=== PATIENT | male | born 1960 | race African-American/Black ===

== ENCOUNTER 2018-01-28 09:05 | Inpatient (IN) | payer SELFPAY ==
[2018-01-28] MEDS ORDERED: MORPHINE 4 MG/ML SYR ONE ×2 (10:02→11:43)
[2018-01-28] MEDS ORDERED: ONDANSETRON 4 MG/2 ML VIAL ONE (10:02)
[2018-01-28] MEDS ORDERED: NA CHLORIDE 0.9% 1,000 ML ONE ×2 (10:02→11:43)
[2018-01-28 10:16] LABS: Absolute Lymphocytes (CBC) 1.2 K/uL (0.7-4.9); Absolute Monocytes 0.6 K/uL (0.1-1.3); Absolute Neutrophil 4.6 K/uL (1.8-8.0); Basophils % 0.3 % (0-1.3); Hematocrit 48.7 % (39.6-49.0); Lymphocytes % 17.9 % (15.3-44.8); MCH 28.1 pg (27.0-35.0); MCV 84.5 fL (80-100); MPV 8.9 fL (7.6-11.3); Monocytes % 9.4 % (3.3-12.3); RBC Red Blood Cell Count 5.76 M/uL (4.33-5.43)
[2018-01-28 10:17] LABS: Urine Blood 2+ (NEG); Urine Glucose NEGATIVE (NEG); Urine Protein 3+ (NEG); Urine Specific Gravity 1.015 (1.005-1.030)
[2018-01-28 10:39] LABS: Potassium 3.9 mEq/L (3.6-5.0)
[2018-01-28 10:52] LABS: Albumin 3.5 g/dL (3.2-5.5); Bilirubin Direct 0.6 mg/dL (0-0.2); Bilirubin Total 2.2 mg/dL (0.3-1.2); Protein, Total 8.8 g/dL (6.0-8.3)
--- NOTE | 2018-01-28 11:16 | RAD REPORT ---
EXAM DESCRIPTION: CT - Abdomen Pelvis Wo Contrast - 01/28/2018 11:07 am CLINICAL HISTORY: Abdominal pain. COMPARISON: 09/11/2017 TECHNIQUE: CT imaging of the abdomen and pelvis was performed without contrast. Solid organ, bowel a nd vascular assessment is limited due to lack of IV and oral contrast. All CT scans are performed using dose optimization technique as appropriate and may include automated exposure control or mA/KV adjustment according to patient size. FINDINGS: The lower lung elise are clear. The liver, spleen, adrenal glands and kidneys are within normal limits.Mild peripancreatic fat strand ing is seen. This is most compatible with acute pancreatitis. No bowel obstruction, free air, free fluid or abscess. Small fat containing right inguinal hernia. Th e appendix is normal. Moderate lumbosacral degenerative changes. IMPRESSION: Mild acute pancreatitis is suspected. A limited non-contrast examination was performed as detailed.
--- NOTE | 2018-01-28 11:33 | EDPHYS ---
Physician Documentation [facility] Name: Natan Paulino Sr Age: 57 yrs Sex: Male : 1960 Arrival Date: 01/28/2018 Time: 09:07 Bed 15 Private MD: None, None ED Physician Brandon Masterson HPI: 01/28 10:00 This 57 yrs old Black Male presents to ER via Ambulatory with complaints of Abd Pain > pm1 48 y/o. 10:00 The patient presents with abdominal pain that is diffuse. Onset: The symptoms/episode pm1 began/occurred 3 day(s) ago. The symptoms do not radiate. Associated signs and symptoms: Pertinent positives: constipation, nausea, Pertinent negatives: chest pain, diarrhea, dysuria, fever, shortness of breath, vomiting. The symptoms are described as achy, constant. Modifying factors: The symptoms are alleviated by nothing, the symptoms are aggravated by alcohol. Severity of pain: in the emergency department the pain is actually worse. The patient has experienced similar episodes in the past, several times. The patient has not recently seen a physician, and does not have an established primary care provider. Patient drank one beer on Saturday prior to onset of abdominal pain that is similar to his prior pancreatitis. Patient reports three days of constipation. Historical: - Allergies: 09:20 PENICILLINS; sv - Home Meds: 09:20 Lasix 20 mg Oral tab 1 tab once daily [Active]; lisinopril 10 mg Oral tab 1 tab once sv daily [Active]; metoprolol tartrate 25 mg Oral tab 1 tab 2 times per day [Active]; - PMHx: 09:20 CHF; Hypertension; Pancreatitis; TIA; sv - PSHx: 09:20 None; sv - Immunization history:: Adult Immunizations up to date. - Social history:: Smoking status: Patient/guardian denies using tobacco, Patient uses alcohol, occasionally. - Ebola Screening: : No symptoms or risks identified at this time. ROS: 10:00 Constitutional: Negative for fever, chills, and weight loss, Eyes: Negative for injury, pm1 pain, redness, and discharge, ENT: Negative for injury, pain, and discharge, Neck: Negative for injury, pain, and swelling, Cardiovascular: Negative for chest pain, palpitations, and edema, Respiratory: Negative for shortness of breath, cough, wheezing, and pleuritic chest pain. 10:00 Back: Negative for injury and pain, : Negative for injury, bleeding, discharge, and swelling, MS/Extremity: Negative for injury and deformity, Skin: Negative for injury, rash, and discoloration, Neuro: Negative for headache, weakness, numbness, tingling, and seizure. 10:00 Abdomen/GI: Positive for abdominal pain, nausea, Negative for vomiting, diarrhea. Exam: 10:00 Constitutional: This is a well developed, well nourished patient who is awake, alert, pm1 and in no acute distress. Head/Face: Normocephalic, atraumatic. Eyes: Pupils equal round and reactive to light, extra-ocular motions intact. Lids and lashes normal. Conjunctiva and sclera are non-icteric and not injected. Cornea within normal limits. Periorbital areas with no swelling, redness, or edema. ENT: Nares patent. No nasal discharge, no septal abnormalities noted. Tympanic membranes are normal and external auditory canals are clear. Oropharynx with no redness, swelling, or masses, exudates, or evidence of obstruction, uvula midline. Mucous membranes moist. Neck: Trachea midline, no thyromegaly or masses palpated, and no cervical lymphadenopathy. Supple, full range of motion without nuchal rigidity, or vertebral point tenderness. No Meningismus. Chest/axilla: Normal chest wall appearance and motion. Nontender with no deformity. No lesions are appreciated. Cardiovascular: Regular rate and rhythm with a normal S1 and S2. No gallops, murmurs, or rubs. Normal PMI, no JVD. No pulse deficits. Respiratory: Lungs have equal breath sounds bilaterally, clear to auscultation and percussion. No rales, rhonchi or wheezes noted. No increased work of breathing, no retractions or nasal flaring. 10:00 Back: No spinal tenderness. No costovertebral tenderness. Full range of motion. Skin: Warm, dry with normal turgor. Normal color with no rashes, no lesions, and no evidence of cellulitis. MS/ Extremity: Pulses equal, no cyanosis. Neurovascular intact. Full, normal range of motion. 10:00 Abdomen/GI: Inspection: abdomen appears normal, Bowel sounds: normal, Palpation: soft, moderate abdominal tenderness, in the Diffuse abdominal pain, mass, is not appreciated, rebound tenderness, is not appreciated. 10:00 Neuro: Orientation: is normal, Motor: moves all fours. Vital Signs: 09:20 BP 158 / 121; Pulse 99; Resp 22; Temp 97.9(O); Pulse Ox 97% ; Weight 95.25 kg; Height 6 sv ft. 3 in. (190.50 cm); Pain 6/10; 10:27 BP 178 / 111; Pulse 75; Resp 15; Pulse Ox 98% on R/A; mh5 11:30 BP 191 / 123; Pulse 81; Resp 19; Pulse Ox 100% on R/A; rb1 12:30 BP 170 / 107; Pulse 75; Resp 18; Pulse Ox 98% on R/A; rb1 13:40 BP 187 / 124; Pulse 77; Resp 20; Pulse Ox 99% on R/A; mh5 14:00 BP 183 / 118; Pulse 68; Resp 20; Pulse Ox 95% ; rb1 15:00 BP 145 / 93; Pulse 60; Resp 19; Pulse Ox 96% on R/A; rb1 09:20 Body Mass Index 26.25 (95.25 kg, 190.50 cm) sv MDM: 09:32 Patient medically screened. pm1 11:29 Data reviewed: vital signs. Data interpreted: Pulse oximetry: on room air is 98 %. pm1 Interpretation: normal. Counseling: I had a detailed discussion with the patient and/or guardian regarding: the historical points, exam findings, and any diagnostic results supporting the discharge/admit diagnosis, lab results, radiology results, the need for further work-up and treatment in the hospital. 12:09 Physician consultation: Cori Alba MD was called at 12:09, was contacted at 12:09, pm1 regarding admission, and will see patient in ED. 01/28 09:45 Order name: Amylase, Serum; Complete Time: 11:25 pm1 01/28 09:45 Order name: Basic Metabolic Panel; Complete Time: 11:25 pm01/28 09:45 Order name: CBC with Diff; Complete Time: 10:56 pm1 01/28 09:45 Order name: Creatinine for Radiology; Complete Time: 10:56 pm1 01/28 09:45 Order name: Hepatic Function; Complete Time: 11:25 pm01/28 09:45 Order name: Lipase; Complete Time: 11:25 pm1 01/28 10:01 Order name: Urine Dipstick--Ancillary (enter results); Complete Time: 10:56 ag 01/28 11:03 Order name: Abdomen ; Complete Time: 11:25 EDMS 01/28 09:45 Order name: IV Saline Lock; Complete Time: 09:54 pm1 01/28 09:45 Order name: Labs collected and sent; Complete Time: 10:08 pm1 01/28 09:45 Order name: Urine Dipstick-Ancillary (obtain specimen); Complete Time: 10:08 pm1 Administered Medications: 10:00 Drug: NS 0.9% 1000 ml Route: IV; Rate: 1000 ml; Site: right antecubital; rb1 10:00 Drug: morphine 4 mg Route: IVP; Site: right antecubital; rb1 10:15 Follow up: Response: No adverse reaction; Pain is decreased rb1 10:00 Drug: Zofran 4 mg Route: IVP; Site: right antecubital; rb1 10:15 Follow up: Response: No adverse reaction rb1 11:45 Drug: NS 0.9% 1000 ml Route: IV; Rate: 1000 ml; Site: right antecubital; rb1 11:45 Drug: morphine 4 mg Route: IVP; Site: right antecubital; rb1 12:03 Follow up: Response: No adverse reaction; Pain is decreased rb1 12:25 Drug: LaSIX 20 mg Route: PO; rb1 13:00 Follow up: Response: No adverse reaction; Blood pressure is unchanged; provider rb1 notified. No new order received at this time. 12:25 Drug: Lisinopril 10 mg Route: PO; rb1 13:00 Follow up: Response: No adverse reaction; Blood pressure is unchanged; provider rb1 notified. 12:25 Drug: Metoprolol 25 mg Route: PO; rb1 16:47 Follow up: Response: No adverse reaction; Blood pressure is unchanged; provider rb1 notified. 14:10 Drug: cloNIDine 0.2 mg Route: PO; rb1 15:00 Follow up: Response: No adverse reaction; Blood pressure is lowered rb1 Disposition: 01/29 15:29 Co-signature as Attending Physician, Brandon Masterson MD I agree with the assessment and deejay plan of care. Disposition: 01/28/18 11:33 Hospitalization ordered by Cori Alba for Observation. Preliminary diagnosis is Acute pancreatitis. - Bed requested for Telemetry/MedSurg (observation). - Status is Observation. rb1 - Condition is Stable. - Problem is new. - Symptoms have improved. UTI on Admission? No Signatures: Dispatcher [employer] EDME Gloria Smith, RN RN Brandon Masterson MD MD cha Smirch, Shelby, RN RN ss Coretta Rodriguez, RN RN rb1 Roldan Varela, AUTOMOBILE PARTS ASSEMBLER AUTOMOBILE PARTS ASSEMBLER pm1 Corrections: (The following items were deleted from the chart) 01/28 11:03 09:46 Abdomen Pelvis W Con+CT.RAD.BRZ ordered. EDME EDME 11:54 11:33 Hospitalization Ordered by Cori Alba MD for Inpatient Admission. Preliminary pm1 diagnosis is Acute pancreatitis. Bed requested for Telemetry/MedSurg (Inpatient). Status is Inpatient Admission. Condition is Stable. Problem is new. Symptoms have improved. UTI on Admission? No. pm1 13:56 11:54 01/28/2018 11:33 Hospitalization Ordered by Cori Alba MD for Observation. ss Preliminary diagnosis is Acute pancreatitis. Bed requested for Telemetry/MedSurg (observation). Status is Observation. Condition is Stable. Problem is new. Symptoms have improved. UTI on Admission? No. pm1 16:06 13:56 01/28/2018 11:33 Hospitalization Ordered by Cori Alba MD for Observation. rb1 Preliminary diagnosis is Acute pancreatitis. Bed requested for Telemetry/MedSurg (observation). Status is Observation. Condition is Stable. Problem is new. Symptoms have improved. UTI on Admission? No. ss
--- NOTE | 2018-01-28 11:33 | ER ---
Nurse's Notes [facility] Name: Natan Paulino Sr Age: 57 yrs Sex: Male : 1960 Arrival Date: 01/28/2018 Time: 09:07 Bed 15 Private MD: None, None Diagnosis: Acute pancreatitis Presentation: 01/28 09:19 Presenting complaint: Patient states: Abd pain x 3 days. Hx pancreatitis. Transition of sv care: patient was not received from another setting of care. Onset of symptoms was January 25, 2018. Risk Assessment: Do you want to hurt yourself or someone else? Patient reports no desire to harm self or others. Care prior to arrival: None. 09:19 Method Of Arrival: Ambulatory sv : Acuity: NINO 3 sv : Initial Sepsis Screen: Does the patient meet any 2 criteria? No. Patient's initial rb1 sepsis screen is negative. Does the patient have a suspected source of infection? No. Patient's initial sepsis screen is negative. Historical: - Allergies: 09:20 PENICILLINS; sv - Home Meds: 09:20 Lasix 20 mg Oral tab 1 tab once daily [Active]; lisinopril 10 mg Oral tab 1 tab once sv daily [Active]; metoprolol tartrate 25 mg Oral tab 1 tab 2 times per day [Active]; - PMHx: 09:20 CHF; Hypertension; Pancreatitis; TIA; sv - PSHx: 09:20 None; sv - Immunization history:: Adult Immunizations up to date. - Social history:: Smoking status: Patient/guardian denies using tobacco, Patient uses alcohol, occasionally. - Ebola Screening: : No symptoms or risks identified at this time. Screenin: Abuse screen: Denies threats or abuse. Nutritional screening: No deficits noted. rb1 Tuberculosis screening: No symptoms or risk factors identified. Fall Risk No fall in past 12 months (0 pts). Secondary diagnosis (15 points) impaired mobility, IV access (20 points). Ambulatory Aid- Crutches/Cane/Walker (15 pts). Gait- Impaired (20 pts.). Mental Status- Oriented to own ability (0 pts). 09:27 Fall Risk Total Harrell Fall Scale indicates High Risk Score (45 or more points). Fall rb1 prevention measures have been instituted. Side Rails Up X 2 Placed Close to Nursing Station 1:1 Attendant Assigned Frequent Obs/Assessments Occuring As available patient and family educated on Fall Prevention Program and Strategies. Assessment: 09:27 General: Appears uncomfortable, Behavior is calm, cooperative, Reports chills for. rb1 Pain: Complains of pain in abdomen Pain currently is 10 out of 10 on a pain scale. Neuro: Level of Consciousness is awake, alert, obeys commands, Oriented to person, place, time, situation. Cardiovascular: Capillary refill < 3 seconds is brisk in bilateral fingers. Respiratory: Airway is patent Respiratory effort is even, unlabored, Respiratory pattern is regular, symmetrical. GI: Abdomen is distended, Bowel sounds present X 4 quads. Abdomen is tender to palpation Abd is rigid X 4 quads. : No signs and/or symptoms were reported regarding the genitourinary system. Derm: Skin is dry, Skin is normal, Skin temperature is warm. Musculoskeletal: Range of motion: intact in all extremities, Swelling present in lateral aspect of right knee and right knee. 10:25 Reassessment: Patient appears in no apparent distress at this time. Patient and/or rb1 family updated on plan of care and expected duration. Pain level reassessed. Patient is alert, oriented x 3, equal unlabored respirations, skin warm/dry/pink. 11:25 Reassessment: Patient appears in no apparent distress at this time. Patient and/or rb1 family updated on plan of care and expected duration. Pain level reassessed. Patient is alert, oriented x 3, equal unlabored respirations, skin warm/dry/pink. 12:22 Reassessment: Patient appears in no apparent distress at this time. No changes from rb1 previously documented assessment. 13:20 Reassessment: Patient appears in no apparent distress at this time. Patient and/or rb1 family updated on plan of care and expected duration. Pain level reassessed. Patient is alert, oriented x 3, equal unlabored respirations, skin warm/dry/pink. 14:00 Reassessment: Patient appears in no apparent distress at this time. No changes from rb1 previously documented assessment. pt. transfer to the floor is pending due to high blood pressure. 15:00 Reassessment: Patient appears in no apparent distress at this time. Patient and/or rb1 family updated on plan of care and expected duration. Pain level reassessed. Patient is alert, oriented x 3, equal unlabored respirations, skin warm/dry/pink. 15:17 Reassessment: Tried to call the floor to give report and there was no answer. rb1 15:20 Reassessment: Tried to call the floor to give report and there was no answer. rb1 15:32 Reassessment: Called report to RADHIKA Izaguirre. Information from the SBAR was given. All rb1 questions asked and answered. Vital Signs: 09:20 BP 158 / 121; Pulse 99; Resp 22; Temp 97.9(O); Pulse Ox 97% ; Weight 95.25 kg; Height 6 sv ft. 3 in. (190.50 cm); Pain 6/10; 10:27 BP 178 / 111; Pulse 75; Resp 15; Pulse Ox 98% on R/A; mh5 11:30 BP 191 / 123; Pulse 81; Resp 19; Pulse Ox 100% on R/A; rb1 12:30 BP 170 / 107; Pulse 75; Resp 18; Pulse Ox 98% on R/A; rb1 13:40 BP 187 / 124; Pulse 77; Resp 20; Pulse Ox 99% on R/A; mh5 14:00 BP 183 / 118; Pulse 68; Resp 20; Pulse Ox 95% ; rb1 15:00 BP 145 / 93; Pulse 60; Resp 19; Pulse Ox 96% on R/A; rb1 09:20 Body Mass Index 26.25 (95.25 kg, 190.50 cm) sv ED Course: 09:07 Patient arrived in ED. sb2 09:08 None, None is Private Physician. sb2 09:20 Triage completed. sv 09:22 Arm band placed on left wrist. EKG completed in triage. Results shown to MD. sv 09:29 Roldan Varela NP is PHCP. pm1 09:29 Brandon Masterson MD is Attending Physician. pm1 09:38 Initial lab(s) drawn, by me, held in ED. Inserted saline lock: 20 gauge in right mh5 antecubital area, using aseptic technique. Blood collected. 09:39 Patient has correct armband on for positive identification. Placed in gown. Bed in low mh5 position. Call light in reach. Side rails up X 1. Warm blanket given. Pulse ox on. NIBP on. 09:47 Radiology exam delayed due to lab results not completed at this time. (BUN/Creatinine) eh IV insertion attempt and/or patient not having appropriate IV at this time. 09:53 Amylase, Serum Sent. 5 09:54 Basic Metabolic Panel Sent. 5 09:54 CBC with Diff Sent. 5 09:54 Creatinine for Radiology Sent. 5 09:54 Hepatic Function Sent. 5 09:54 Lipase Sent. 5 09:57 Coretta Rodriguez, RN is Primary Nurse. rb1 09:58 sent to lab. 5 10:08 Urine collected: clean catch specimen, william colored. 5 11:03 CT completed. Patient tolerated procedure well. Patient moved to CT via wheelchair. Patient moved back from CT. 11:07 Abdomen In Process Unspecified. EDMS 11:32 Cori Alba MD is Hospitalizing Provider. pm1 15:50 No provider procedures requiring assistance completed. Patient admitted, IV remains in rb1 place. Administered Medications: 10:00 Drug: NS 0.9% 1000 ml Route: IV; Rate: 1000 ml; Site: right antecubital; rb1 10:00 Drug: morphine 4 mg Route: IVP; Site: right antecubital; rb1 10:15 Follow up: Response: No adverse reaction; Pain is decreased rb1 10:00 Drug: Zofran 4 mg Route: IVP; Site: right antecubital; rb1 10:15 Follow up: Response: No adverse reaction rb1 11:45 Drug: NS 0.9% 1000 ml Route: IV; Rate: 1000 ml; Site: right antecubital; rb1 11:45 Drug: morphine 4 mg Route: IVP; Site: right antecubital; rb1 12:03 Follow up: Response: No adverse reaction; Pain is decreased rb1 12:25 Drug: LaSIX 20 mg Route: PO; rb1 13:00 Follow up: Response: No adverse reaction; Blood pressure is unchanged; provider rb1 notified. No new order received at this time. 12:25 Drug: Lisinopril 10 mg Route: PO; rb1 13:00 Follow up: Response: No adverse reaction; Blood pressure is unchanged; provider rb1 notified. 12:25 Drug: Metoprolol 25 mg Route: PO; rb1 16:47 Follow up: Response: No adverse reaction; Blood pressure is unchanged; provider rb1 notified. 14:10 Drug: cloNIDine 0.2 mg Route: PO; rb1 15:00 Follow up: Response: No adverse reaction; Blood pressure is lowered rb1 Intake: Outcome: 11:33 Decision to Hospitalize by Provider. pm1 15:50 Patient left the ED. rb1 15:50 Admitted to Tele accompanied by tech, via wheelchair, room 421, with chart, Other And rb1 pt. belongings. Report called to RADHIKA Izaguirre 15:50 Condition: stable 15:50 Instructed on the need for admit. Signatures: Dispatcher [employer] EDGloria Farr RN RN sv Hagler, Ervin eh Barber, Rebecca, RN RN rb1 Roldan Varela, TRACK WORKER TRACK WORKER pm1 Mariana Emmanuel mh5 Lina Sheppard sb2 Corrections: (The following items were deleted from the chart) 12:52 10:30 Reassessment: Patient appears in no apparent distress at this time. Patient rb1 and/or family updated on plan of care and expected duration. Pain level reassessed. Patient is alert, oriented x 3, equal unlabored respirations, skin warm/dry/pink. rb1 16:08 16:06 Patient left the ED. rb1 rb1 16:10 14:00 Reassessment: pt. transfer to the floor is pending due to high blood pressure. [id number]
[2018-01-28] MEDS ORDERED: MORPHINE 4 MG/ML SYR IV PRN (12:27)
[2018-01-28] MEDS ORDERED: ACETAMINOPHEN 650MG/RECT SUPP PR PRN (12:27)
[2018-01-28] MEDS ORDERED: FUROSEMIDE 20 MG TABLET ONE (12:30)
[2018-01-28] MEDS ORDERED: METOPROLOL TAR 25 MG TAB ONE (12:32)
[2018-01-28] MEDS ORDERED: LISINOPRIL 10 MG TAB ONE (12:32)
[2018-01-28] MEDS ORDERED: cloNIDine HCl 0.1 MG TAB ONE (14:10)
[2018-01-28] MEDS: ENOXAPARIN 40 MG/0.4 ML SQ SCH (16:29)
[2018-01-28] MEDS: FENTANYL CITR 100 MCG/2 ML IV PRN ×2 (16:29→20:44)
[2018-01-28] MEDS: NA CHLORIDE 0.9% 1,000 ML IV SCH (16:30)
[2018-01-28] MEDS ORDERED: KCL 20 MEQ/100 mL IVPB 20 MEQ/100 ML BAG IV SCH (17:00)
[2018-01-28 17:01] VITALS: BMI 28.8
[2018-01-28] MEDS ORDERED: METOPROLOL TARTRATE 5 MG/5 ML INJ IV STA (18:34)
[2018-01-29] MEDS: NA CHLORIDE 0.9% 1,000 ML IV SCH ×5 (00:22→20:53)
[2018-01-29] MEDS: FENTANYL CITR 100 MCG/2 ML IV PRN ×6 (00:22→22:22)
--- NOTE | 2018-01-29 02:06 | HP ---
Date of Admission: 01/28/2018 Chief Complaint: Abdominal pain. Primary Care Physician: None. 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 The patient recently discharged on 09/13/2017 for similar sympto ms. The patient also has chronic kidney disease, hypertension, history of TIAs, and noncompliance. The patient was in his usual state of health until 3 days prior to admission when the patient had 1 b eer, watching an [employer] final game, which triggered his pancreatitis. The patient states that he had se dorene abdominal pain, which was sharp, radiating to the back, located in the mid epigastric region, as sociated with some nausea. No vomiting. The patient does also have some diaphoresis. No fevers, ch ills. No hematemesis or blood in the stool. The patient's symptoms are constant, moderate, progress ively worsening. The patient came into the ER for further evaluation of his symptoms. The patient w as found to have pancreatitis on workup. CT scan showed mild acute pancreatitis. His lipase was margarita vated at 825, amylase was 718. Kidney function was 1.6, which is close to his baseline. White count was normal. The patient's blood pressure upon arrival was elevated and he was given his home medica tions, however blood pressure has not improved. The patient was then referred for admission. When s een in the ER, the patient was awake, alert, oriented x3, in some mild distress. Past Medical History: Recurrent pancreatitis secondary to alcohol, hypertension, history of TIA and CHF, history of irregular heartbeat. Past Surgical History: None. Allergies: TO PENICILLIN, WHICH CAUSES HIVES AND RASH. Home Medications: List reviewed. Social History: The patient is a former smoker. Drinks alcohol on an occasional basis, usually beer . No illicit drug use. The patient lives at home, independent in activities of daily living. Family History: Father had hypertension, lung disease, cancer, liver disease, asbestos. Mother is h ealtniranjan. Review of Systems: An 11-point system reviewed and negative except as per HPI. Physical Examination: Vital Signs: Blood pressure 171/111, pulse 75, respirations 15, O2 98% on room air, temperature 97.9 . General: Awake, alert, oriented x3. Some mild distress, ill-appearing male. HEENT: Normocephalic, atraumatic. PERRLA. EOMI. Moist mucous membranes. Oropharynx is clear. No rmal dentition. Conjunctivae are anicteric. Neck: Supple. No JVD. Trachea midline. CV: S1, S2. Regular rate and rhythm. Peripheral pulses present. Respiratory: Clear to auscultation bilaterally. No wheezing. No stridor. No use of accessory musc les. Gastrointestinal: Abdomen is soft. Tenderness to palpation. No rebound or guarding. No distention . Positive bowel sounds. Extremities: No clubbing, cyanosis, or edema. No calf tenderness. Neuro: Cranial nerves 2 through 12 intact grossly. No focal neurological deficit. Speech is normal . Strength is 5/5 bilateral upper and lower extremities. Sensation intact to light touch. Skin: No rashes. Normal skin turgor. Psych: Mood is okay. Affect is congruent with mood. Insight and judgment are poor. Laboratory Data: Sodium 138, potassium 3.9, chloride 104, CO2 24, BUN 16, creatinine 1.6, glucose 11 2, calcium 9.3, total bilirubin 2.2, direct bilirubin 0.6, AST 82, ALT 60, alkaline phosphate 90, alb umin 3.5, amylase 718, lipase 825. WBC 6.8, H and H 16.2/48.7, platelets 227. UA; 2+ blood, negativ e nitrite, negative leukocyte esterase, 3+ protein. CT scan abdomen and pelvis without contrast shows mild acute pancreatitis suspected. Assessment And Plan: A 57-year-old male with, 1.Acute pancreatitis, recurrent secondary to alcohol. The patient had some beer on Saturday. We wi ll continue with IV fluid rehydration. Currently n.p.o., IV pain medications. The patient requestin g medications different than what he is getting now. CT scan consistent with pancreatitis. We will trend amylase and lipase, which are elevated. 2.Chronic congestive heart failure, diastolic dysfunction. We will monitor I's and O's closely, shira ecially with the patient being hydrated. 3.Accelerated hypertension. Blood pressure is difficult to control. We will add p.r.n. IV medicati ons. Resume home dose. 4.History of transient ischemic attack. 5.Alcohol abuse. Counseled. 6.Gastrointestinal and deep vein thrombosis prophylaxis with PPI and Lovenox. Plan: Admit the patient to Med-Surg, place as inpatient. ANGEL Voice ID: [id number]
[2018-01-29 07:18] LABS: Albumin 2.6 g/dL (3.2-5.5); Bilirubin Total 1.7 mg/dL (0.3-1.2); Magnesium 1.5 mg/dL (1.8-2.5); Potassium 4.2 mEq/L (3.6-5.0); Protein, Total 6.6 g/dL (6.0-8.3)
[2018-01-29] MEDS ORDERED: Magnesium Sulfate 2gm IVPB 2 G/50 ML BAG IV ONE (08:02)
[2018-01-29] MEDS: FUROSEMIDE 20 MG TABLET PO SCH (08:33)
[2018-01-29] MEDS: HYDRALAZINE HCL 20 MG/ML VIAL IV PRN ×3 (08:33→22:26)
[2018-01-29] MEDS ORDERED: MORPHINE 4 MG/ML SYR IV ONE (16:00)
--- NOTE | 2018-01-29 17:40 | PN ---
Date of Progress Note: 01/29/2018 Subjective: The patient is seen and examined. Chart reviewed and case discussed with RN. The patie nt had one of nonsustained ventricular tachycardia yesterday, on beta-blockers now. The patient stat es his abdominal pain is significantly better. No vomiting, however, still somewhat nauseated. Does report some abdominal distention. Review of Systems: Negative except as above. Medications: Reviewed. Physical Examination: Vital Signs: Temperature 97.8, heart rate 83, blood pressure 155/89, respirations 16, O2 99% on room air. General: Awake, alert, oriented x3, in some mild distress. Somewhat ill-appearing male. CV: S1, S2. No murmurs. Regular rate and rhythm. Peripheral pulses present. Respiratory: Clear to auscultation bilaterally. No wheezing. No stridor. No use of accessory musc les. Gastrointestinal: Abdomen is soft, distended, mild tenderness to palpation. No rebound or guarding. Bowel sounds present. Extremities: No clubbing, cyanosis, edema. Neurologic: Nonfocal. Laboratory Data: Sodium 142, potassium 4.2, chloride 112, CO2 22, BUN 15, creatinine 1.38, glucose 8 1, calcium 8.4, magnesium 1.5. AST 52, ALT 39, albumin 2.6, amylase 35, lipase 337. Assessment And Plan: A 57-year-old male with: 1.Acute pancreatitis secondary to alcohol. The patient was recently admitted to the hospital 6 yasmine hs ago for similar symptoms. He has been counseled extensively. We will continue IV fluids. We luca l start on clear liquid diet. Amylase and lipase are trending down. We will continue to monitor. C ontinue pain medications. 2.Chronic diastolic congestive heart failure, compensated. Monitor I's and O's. 3.Accelerated hypertension. IV medications initiated. We will resume home dose. Blood pressure no w improved. 4.History of transient ischemic attack. 5.Alcohol abuse, counseled. 6.Nonsustained ventricular tachycardia. Continue beta-medardo. 7.Gastrointestinal and deep venous thrombosis prophylaxis with PPI and Lovenox. 8.Hypomagnesemia. We will replace and monitor. 9.Chronic kidney disease, stage 2. Creatinine improving. Continue IV fluids and monitor. /TERRELL Voice ID: [id number] Report ID: [id number]
[2018-01-29] MEDS: ENOXAPARIN 40 MG/0.4 ML SQ SCH (18:02)
[2018-01-29] MEDS: METOPROLOL TAR 25 MG TAB PO SCH (20:52)
[2018-01-29] MEDS ORDERED: MAGNESIUM SULFATE 1 gm IVPB 1 GM/100 ML BAG IV ONE (21:12)
[2018-01-29] MEDS: ONDANSETRON 4 MG/2 ML VIAL IV PRN (23:33)
[2018-01-30] MEDS: FENTANYL CITR 100 MCG/2 ML IV PRN ×3 (02:18→10:07)
[2018-01-30] MEDS: NA CHLORIDE 0.9% 1,000 ML IV SCH ×4 (05:56→20:43)
[2018-01-30 06:58] LABS: Albumin 2.8 g/dL (3.2-5.5); Bilirubin Total 1.7 mg/dL (0.3-1.2); Magnesium 1.9 mg/dL (1.8-2.5); Protein, Total 7.2 g/dL (6.0-8.3)
[2018-01-30] MEDS: LISINOPRIL 20 MG TAB PO SCH (08:06)
[2018-01-30] MEDS: hydroCHLOROthiazide 12.5 MG CAP PO SCH (08:06)
[2018-01-30] MEDS: METOPROLOL TAR 25 MG TAB PO SCH ×2 (08:06→20:43)
[2018-01-30] MEDS: FUROSEMIDE 20 MG TABLET PO SCH (08:07)
[2018-01-30] MEDS ORDERED: HOME MED 1 EA UNK (Lisinopril/Hydrochlorothiazide [Lisinopril-Hctz 20-12.5 Mg Tab] 1 EACH) PO SCH (09:00)
[2018-01-30] MEDS: ONDANSETRON 4 MG/2 ML VIAL IV PRN ×2 (10:03→18:18)
[2018-01-30] MEDS: MORPHINE 4 MG/ML SYR IV PRN ×4 (10:48→23:19)
[2018-01-30] MEDS: HYDRALAZINE HCL 20 MG/ML VIAL IV PRN ×2 (13:12→18:22)
--- NOTE | 2018-01-30 16:02 | PN ---
Date of Progress Note: 01/30/2018 Subjective: The patient is seen and examined. Chart reviewed and case discussed with RN. The patie nt still having some nausea, had episode of vomiting this morning. Not really tolerating his clear l iquid diet. Pain is slightly improved. Review of Systems: Negative except as above. Medications: Reviewed. Physical Examination: Vital Signs: Temperature 98.5, heart rate 73, blood pressure 171/79, respirations 16, O2 96% on room air. General: Awake, alert, oriented x3. Some mild distress, ill-appearing. CV: S1, S2. No murmurs. Regular rate and rhythm. Peripheral pulses present. Respiratory: Clear to auscultation bilaterally. No wheezing. Gastrointestinal: Abdomen is soft. Mild distention. Positive bowel sounds. No guarding or rigidit y. Extremities: No clubbing, cyanosis, edema. Neurologic: Nonfocal. Laboratory Data: Sodium 137, potassium 4, chloride 105, CO2 22, BUN 11, creatinine 1.21, glucose 95, calcium 8.7, magnesium 1.9, albumin 2.8, amylase 314, lipase 266. Assessment And Plan: A 57-year-old male with: 1.Acute pancreatitis secondary to alcohol. We will continue with IV fluids, keep on clear liquids. Amylase and lipase trending down very slowly. We will send for gastric occult. 2.Chronic diastolic heart failure, compensated. We will monitor I's and O's, free fluid restriction . 3.Accelerated hypertension. Blood pressure is improved. We will adjust medications. 4.History of transient ischemic attack. 5.Alcohol abuse. 6.Nonsustained ventricular tachycardia. Continue beta-medardo. 7.Hypomagnesemia, replace and monitor. 8.Chronic kidney disease, stage 2. Creatinine now normalized. Plan: Continue IV fluids. GI and DVT prophylaxis with PPI and Lovenox. Discharge once clinically i mproved and amylase and lipase trending down. SA/MODL Voice ID: [id number] Report ID: [id number]
[2018-01-30] MEDS: ENOXAPARIN 40 MG/0.4 ML SQ SCH (16:37)
[2018-01-31] MEDS: HYDRALAZINE HCL 20 MG/ML VIAL IV PRN ×3 (03:46→16:53)
[2018-01-31] MEDS: MORPHINE 4 MG/ML SYR IV PRN ×3 (03:46→11:57)
[2018-01-31 05:41] LABS: Absolute Lymphocytes (CBC) 1.1 K/uL (0.7-4.9); Absolute Monocytes 0.8 K/uL (0.1-1.3); Absolute Neutrophil 4.6 K/uL (1.8-8.0); Basophils % 0.3 % (0-1.3); Eosinophils % 3.1 % (0-4.4); Hematocrit 41.7 % (39.6-49.0); Lymphocytes % 15.7 % (15.3-44.8); MCH 28.6 pg (27.0-35.0); MPV 8.9 fL (7.6-11.3); Monocytes % 12.2 % (3.3-12.3); RBC Red Blood Cell Count 4.96 M/uL (4.33-5.43)
[2018-01-31 05:56] LABS: Albumin 2.8 g/dL (3.2-5.5); Bilirubin Total 1.5 mg/dL (0.3-1.2); Potassium 3.8 mEq/L (3.6-5.0)
[2018-01-31] MEDS ORDERED: POTASSIUM 25 MEQ EFFERV TAB PO ONE (06:11)
[2018-01-31] MEDS: NA CHLORIDE 0.9% 1,000 ML IV SCH ×2 (06:35→16:53)
[2018-01-31] MEDS: ONDANSETRON 4 MG/2 ML VIAL IV PRN ×2 (07:46→12:02)
[2018-01-31] MEDS: LISINOPRIL 20 MG TAB PO SCH (08:05)
[2018-01-31] MEDS: hydroCHLOROthiazide 12.5 MG CAP PO SCH (08:06)
[2018-01-31] MEDS: METOPROLOL TAR 25 MG TAB PO SCH ×2 (08:06→19:46)
[2018-01-31] MEDS: FUROSEMIDE 20 MG TABLET PO SCH (08:06)
[2018-01-31 08:09] LABS: Blood Morphology Comment NOT SEEN (NOT SEEN); Platelet Estimate ADEQ
[2018-01-31 08:15] VITALS: O2SAT 94
[2018-01-31] MEDS: ENOXAPARIN 40 MG/0.4 ML SQ SCH (16:54)
--- NOTE | 2018-01-31 19:30 | P.DS ---
Admission Date: 01/28/18 Discharge Date: 01/31/18 Disposition: ROUTINE DISCHARGE Discharge Condition: GOOD Reason for Admission: Pancreatitis - Problems (1) Alcoholic pancreatitis Onset Date: 05/08/17 Current Visit: No Status: Acute Qualifiers: Chronicity: acute (2) HTN (hypertension) Onset Date: 11/01/16 Current Visit: No Status: Chronic Qualifiers: Hypertension type: essential hypertension Vital Signs/Physical Exam: Temp Pulse Resp BP Pulse Ox 97.5 F 87 16 168/100 H 100 01/31/18 16:00 01/31/18 16:00 01/31/18 16:00 01/31/18 16:50 01/31/18 16:00 General: Alert, In no apparent distress, Oriented x3, Cooperative HEENT: Atraumatic, Normocephalic, PERRLA Neck: Supple, 2+ carotid pulse no bruit Respiratory: Clear to auscultation bilaterally, Normal air movement Cardiovascular: No edema Capillary refill: <2 Seconds Gastrointestinal: Normal bowel sounds Musculoskeletal: No clubbing Integumentary: No rashes Neurological: Normal gait, Normal speech, Sensation intact Lymphatics: No axilla or inguinal lymphadenopathy External genitalia: Deferred Rectal: Deferred Laboratory Data at Discharge: WBC 6.8 K/uL (4.3-10.9) 01/31/18 04:58 Hgb 14.2 g/dL (13.6-17.9) 01/31/18 04:58 Hct 41.7 % (39.6-49.0) 01/31/18 04:58 Plt Count 191 K/uL (152-406) 01/31/18 04:58 Sodium 137 mEq/L (135-145) 01/31/18 04:58 Potassium 3.8 mEq/L (3.6-5.0) 01/31/18 04:58 BUN 9 mg/dL (6-20) 01/31/18 04:58 Creatinine 1.22 mg/dL (0.61-1.24) 01/31/18 04:58 Glucose 92 mg/dL (65-120) 01/31/18 04:58 Magnesium 1.9 mg/dL (1.8-2.5) 01/30/18 05:49 Total Bilirubin 1.5 mg/dL (0.3-1.2) H 01/31/18 04:58 AST 52 IU/L (10-42) H 01/31/18 04:58 ALT 38 IU/L (10-60) 01/31/18 04:58 Alkaline Phosphatase 67 IU/L (42-121) 01/31/18 04:58 Amylase 235 U/L (28-100) H* 01/31/18 04:58 Lipase 191 U/L (22-51) H 01/31/18 04:58 Home Medications: Furosemide [Lasix*] 20 mg PO DAILY 05/08/17 Metoprolol Tartrate [Lopressor*] 25 mg PO BID 09/11/17 Lisinopril/Hydrochlorothiazide [Lisinopril-Hctz 20-12.5 mg Tab] 1 each PO DAILY #30 tablet 09/13/17 Diet: Low sodium Activity: Ad pelon
[2018-01-31 19:44] VITALS: BP 188/99; TEMP 98.2
== END 2018-01-31 20:20 | disposition home or self-care (01) | DRG 439 ==
LOC: ER 09:05 → ERHOLD 12:10 → OBSVTOIN 12:10 → 4TH 15:40
PROVIDERS: ADMIT Family Medicine; ATTEND Internal Medicine Sleep Medicine
DX: K85.20 Alcohol induced acute pancreatitis without necrosis or infection (principal); I13.0 Hypertensive heart and chronic kidney disease with heart failure and stage 1 through stage 4 chronic kidney disease, or unspecified chronic kidney disease; I50.32 Chronic diastolic (congestive) heart failure; I47.2 Ventricular tachycardia; I10 Essential (primary) hypertension; N18.2 Chronic kidney disease, stage 2 (mild); F10.10 Alcohol abuse, uncomplicated; E83.42 Hypomagnesemia; Z86.73 Personal history of transient ischemic attack (TIA), and cerebral infarction without residual deficits; Z87.891 Personal history of nicotine dependence; Z88.0 Allergy status to penicillin
CPT/HCPCS: 36415; 74176; 80048; 80053; 80076; 81003; 82150; 82271; 83690; 83735; 83986; 85025; 94760; 96374; 96375; 99285; J0360; J1650; J2405; J3010; J3475; J7030

== ENCOUNTER 2018-02-22 03:01 | Emergency (ER) | payer SELFPAY ==
[2018-02-22] MEDS ORDERED: KETOROLAC 30 MG/ML INJ ONE (03:47)
[2018-02-22] MEDS ORDERED: MORPHINE 4 MG/ML SYR ONE (03:47)
[2018-02-22] MEDS ORDERED: ONDANSETRON 4 MG/2 ML VIAL ONE (03:48)
[2018-02-22] MEDS ORDERED: NA CHLORIDE 0.9% 500 ML ONE ×2 (03:48→03:52)
[2018-02-22 04:02] LABS: Potassium 5.1 mmol/L (3.5-5.1)
[2018-02-22 04:06] LABS: Absolute Lymphocytes (CBC) 2.3 K/uL (0.7-4.9); Absolute Monocytes 0.9 K/uL (0.1-1.3); Absolute Neutrophil 5.2 K/uL (1.8-8.0); Basophils % 1.4 % (0-1.3); Eosinophils % 1.3 % (0-4.4); Lymphocytes % 26.7 % (15.3-44.8); MCH 27.8 pg (27.0-35.0); MCV 79.2 fL (80-100); MPV 8.5 fL (7.6-11.3); Monocytes % 9.9 % (3.3-12.3); RBC Red Blood Cell Count 5.31 M/uL (4.33-5.43)
--- NOTE | 2018-02-22 05:38 | ER ---
Nurse's Notes [facility] Name: Natan Paulino Sr Age: 57 yrs Sex: Male : 1960 Arrival Date: 02/22/2018 Time: 03:04 Bed 20 Private MD: Diagnosis: Gout-Right knee;Renal Insufficiency (2.5 Cr) Presentation: 02/22 03:13 Presenting complaint: Patient states: he is having a flare-up of his gout he has bb swelling and pain to right knee, hand and elbow for 3 weeks states he has just tried to "tough out the pain" but it is not working. Transition of care: patient was not received from another setting of care. Onset of symptoms was January 31, 2018. Risk Assessment: Do you want to hurt yourself or someone else? Patient reports no desire to harm self or others. Initial Sepsis Screen: Does the patient meet any 2 criteria? No. Patient's initial sepsis screen is negative. Does the patient have a suspected source of infection? Yes: No. Patient's initial sepsis screen is negative. 03:13 Method Of Arrival: Wheelchair bb 03:13 Acuity: NINO 3 bb 03:18 Care prior to arrival: None. jd3 Historical: - Allergies: 03:15 PENICILLINS; bb - Home Meds: 03:15 Lasix 20 mg Oral tab 1 tab once daily [Active]; lisinopril 10 mg Oral tab 1 tab once bb daily [Active]; metoprolol tartrate 25 mg Oral tab 1 tab 2 times per day [Active]; - PMHx: 03:15 CHF; Hypertension; Pancreatitis; TIA; Rheumatoid Arthritis; Gout; bb - Immunization history:: Adult Immunizations up to date. - Social history:: Smoking status: Patient/guardian denies using tobacco, Patient/guardian denies using alcohol, street drugs. - Ebola Screening: : No symptoms or risks identified at this time. Screenin:17 Abuse screen: Denies threats or abuse. Nutritional screening: No deficits noted. jd3 Nutritional screening:. Tuberculosis screening: No symptoms or risk factors identified. Fall Risk Ambulatory Aid- Crutches/Cane/Walker (15 pts). Gait- Weak (10 pts.). Mental Status- Oriented to own ability (0 pts). Total Harrell Fall Scale indicates Low Risk Score (25-44 pts). Fall prevention measures have been instituted. Side Rails Up X 2 Placed close to Nursing Station Frequent Obs/Assesments occuring Family Present and informed to notify staff if they need to leave bedside. Assessment: 03:15 General: Appears uncomfortable, Behavior is cooperative, appropriate for age. Pain: rosa m Complains of pain in right hand, right elbow and right knee Pain currently is 10 out of 10 on a pain scale. Quality of pain is described as aching, sharp, Is chronic. Neuro: Level of Consciousness is awake, alert, obeys commands, Oriented to person, place, time, situation. Cardiovascular: Capillary refill < 3 seconds Patient's skin is warm and dry. Respiratory: Airway is patent Respiratory effort is even, unlabored, Respiratory pattern is regular, symmetrical, Breath sounds are clear bilaterally. GI: Abdomen is round Bowel sounds present X 4 quads. Abd is soft and non tender X 4 quads. : No signs and/or symptoms were reported regarding the genitourinary system. EENT: No signs and/or symptoms were reported regarding the EENT system. Derm: Skin is intact, Skin is dry, Skin is normal, Skin temperature is warm. Musculoskeletal: Circulation, motion, and sensation intact. Range of motion: intact in all extremities. 04:17 Reassessment: Patient appears in no apparent distress at this time. Patient and/or jd3 family updated on plan of care and expected duration. Pain level reassessed. Patient is alert, oriented x 3, equal unlabored respirations, skin warm/dry/pink. 05:31 Reassessment: Patient appears in no apparent distress at this time. Patient and/or jd3 family updated on plan of care and expected duration. Pain level reassessed. Patient is alert, oriented x 3, equal unlabored respirations, skin warm/dry/pink. Patient states feeling better. 05:56 Reassessment: Patient appears in no apparent distress at this time. Patient and/or jd3 family updated on plan of care and expected duration. Pain level reassessed. Patient is alert, oriented x 3, equal unlabored respirations, skin warm/dry/pink. pt reported understanding of discharge instructions. Patient states feeling better. Vital Signs: 03:15 BP 135 / 89; Pulse 112; Resp 28 S; Temp 97.6(O); Pulse Ox 100% on R/A; Weight 95.25 kg bb (R); Height 6 ft. 3 in. (190.50 cm) (R); Pain 10/10; 04:16 BP 137 / 88; Pulse 94; Resp 25 S; Pulse Ox 100% on R/A; jd3 05:14 Pain 1/10; jd3 05:31 BP 129 / 86; Pulse 75; Resp 17 S; Pulse Ox 98% on R/A; Pain 1/10; jd3 03:15 Body Mass Index 26.25 (95.25 kg, 190.50 cm) bb ED Course: 03:04 Patient arrived in ED. al2 03:10 Manuel Kruse MD is Attending Physician. kdr 03:14 Triage completed. bb 03:15 Ronan Barros RN is Primary Nurse. jd3 03:15 Arm band placed on Patient placed in an exam room, on a stretcher, on pulse oximetry. bb Family accompanied patient. 03:18 Patient has correct armband on for positive identification. Bed in low position. Call jd3 light in reach. Side rails up X 1. Adult w/ patient. 03:40 Inserted saline lock: 20 gauge in left antecubital area, using aseptic technique. Blood jd3 collected. 04:48 X-ray completed. Portable x-ray completed in exam room. Patient tolerated procedure jw2 well. 04:49 Knee Right 2 View XRAY In Process Unspecified. EDMS 05:55 No provider procedures requiring assistance completed. IV discontinued, intact, jd3 bleeding controlled, No redness/swelling at site. Pressure dressing applied. Administered Medications: 03:57 Drug: morphine 4 mg Route: IVP; Site: left antecubital; jd3 05:14 Follow up: Pain 1/10 Adult; Response: No adverse reaction; Pain is decreased jd3 03:57 Drug: Zofran 4 mg Route: IVP; Site: left antecubital; jd3 05:14 Follow up: Response: No adverse reaction jd3 03:57 Drug: TORadol 30 mg Route: IVP; Site: left antecubital; jd3 05:14 Follow up: Response: No adverse reaction jd3 03:57 Drug: NS 0.9% 500 ml Route: IV; Rate: bolus; Site: left antecubital; jd3 05:15 Follow up: Response: No adverse reaction; IV Status: Completed infusion; IV Intake: jd3 500ml 05:44 Drug: Colchicine-Probenecid 1 tabs Route: PO; jd3 05:56 Follow up: Response: Medication administered at discharge. jd3 05:50 Drug: [place] 10 mg-325 mg 1 tabs Route: PO; jd3 05:57 Follow up: Response: Medication administered at discharge. jd3 05:50 Drug: predniSONE 20 mg Route: PO; jd3 05:57 Follow up: Response: Medication administered at discharge. jd3 Intake: 05:15 IV: 500ml; Total: 500ml. jd3 Outcome: 05:38 Discharge ordered by . kdr 05:55 Discharged to home ambulatory, with family. jd3 05:55 Condition: stable 05:55 Discharge instructions given to patient, family, Instructed on discharge instructions, follow up and referral plans. medication usage, Demonstrated understanding of instructions, follow-up care, medications, Prescriptions given X 3. 05:56 Patient left the ED. jd3 Signatures: Dispatcher [employer] EDMS Manuel Kruse MD MD kdr Ballard, Brenda RN RN Lidya Fisher2 Ronan Barros RN RN jd3 Love, Alva [facility]
--- NOTE | 2018-02-22 05:38 | EDPHYS ---
Physician Documentation [facility] Name: Natan Paulino Sr Age: 57 yrs Sex: Male : 1960 Arrival Date: 02/22/2018 Time: 03:04 Bed 20 Private MD: ED Physician Manuel Kruse HPI: 02/22 04:45 This 57 yrs old Black Male presents to ER via Wheelchair with complaints of GOUT. kdr 04:45 The patient presents with decreased range of motion, pain, that is chronic. The kdr complaints affect the lateral aspect of right knee, posterior aspect of right knee, medial aspect of right knee and right knee. Context: The problem was sustained at home, resulted from a chronic condition, Gout. Onset: The symptoms/episode began/occurred suddenly, 3 week(s) ago. Modifying factors: The symptoms are alleviated by nothing. the symptoms are aggravated by movement, weight bearing, bending knee. Associated signs and symptoms: The patient has no apparent associated signs or symptoms. Treatment prior to arrival includes: over the counter medications, Tylenol. Severity of symptoms: At their worst the symptoms were moderate, severe, incapacitating, just prior to arrival, in the emergency department the symptoms are unchanged. The patient has experienced similar episodes in the past, several times. The patient has not recently seen a physician. Last visit for this problem was more than a year ago. Historical: - Allergies: 03:15 PENICILLINS; bb - Home Meds: 03:15 Lasix 20 mg Oral tab 1 tab once daily [Active]; lisinopril 10 mg Oral tab 1 tab once bb daily [Active]; metoprolol tartrate 25 mg Oral tab 1 tab 2 times per day [Active]; - PMHx: 03:15 CHF; Hypertension; Pancreatitis; TIA; Rheumatoid Arthritis; Gout; bb - Immunization history:: Adult Immunizations up to date. - Social history:: Smoking status: Patient/guardian denies using tobacco, Patient/guardian denies using alcohol, street drugs. - Ebola Screening: : No symptoms or risks identified at this time. ROS: 04:45 Constitutional: Negative for fever, chills, and weight loss, Eyes: Negative for injury, kdr pain, redness, and discharge, ENT: Negative for injury, pain, and discharge, Neck: Negative for injury, pain, and swelling, Cardiovascular: Negative for chest pain, palpitations, and edema, Respiratory: Negative for shortness of breath, cough, wheezing, and pleuritic chest pain, Abdomen/GI: Negative for abdominal pain, nausea, vomiting, diarrhea, and constipation, Back: Negative for injury and pain, : Negative for injury, bleeding, discharge, and swelling, Skin: Negative for injury, rash, and discoloration, Neuro: Negative for headache, weakness, numbness, tingling, and seizure activity. Psych: Negative for depression, anxiety, suicide ideation, homicidal ideation, and hallucinations, Allergy/Immunology: Negative for hives, rash, and allergies, Endocrine: Negative for neck swelling, polydipsia, polyuria, polyphagia, and marked weight changes, Hematologic/Lymphatic: Negative for swollen nodes, abnormal bleeding, and unusual bruising. 04:45 MS/extremity: Positive for decreased range of motion, pain, swelling, Negative for ecchymosis, erythema, paresthesias, puncture, warmth. Exam: 04:45 Constitutional: This is a well developed, well nourished patient who is awake, alert, kdr and in no acute distress. Head/Face: Normocephalic, atraumatic. Eyes: Pupils equal round and reactive to light, extra-ocular motions intact. Lids and lashes normal. Conjunctiva and sclera are non-icteric and not injected. Cornea within normal limits. Periorbital areas with no swelling, redness, or edema. Chest/axilla: Normal chest wall appearance and motion. Nontender with no deformity. No lesions are appreciated. Cardiovascular: Regular rate and rhythm with a normal S1 and S2. No gallops, murmurs, or rubs. Normal PMI, no JVD. No pulse deficits. Respiratory: Lungs have equal breath sounds bilaterally, clear to auscultation and percussion. No rales, rhonchi or wheezes noted. No increased work of breathing, no retractions or nasal flaring. Abdomen/GI: Soft, non-tender, with normal bowel sounds. No distension or tympany. No guarding or rebound. No evidence of tenderness throughout. 04:45 Musculoskeletal/extremity: ROM: limited active range of motion, in the lateral aspect of right knee, posterior aspect of right knee, medial aspect of right knee and right knee, limited passive range of motion, in the lateral aspect of right knee, posterior aspect of right knee, medial aspect of right knee and right knee, Circulation is intact in all extremities. Sensation intact. Severe pain noted. Joints: the right knee displays limited range of motion, pain at rest, painful range of motion, tenderness. Vital Signs: 03:15 BP 135 / 89; Pulse 112; Resp 28 S; Temp 97.6(O); Pulse Ox 100% on R/A; Weight 95.25 kg bb (R); Height 6 ft. 3 in. (190.50 cm) (R); Pain 10/10; 04:16 BP 137 / 88; Pulse 94; Resp 25 S; Pulse Ox 100% on R/A; jd3 05:14 Pain 08/28; jd3 05:31 BP 129 / 86; Pulse 75; Resp 17 S; Pulse Ox 98% on R/A; Pain 1; jd3 03:15 Body Mass Index 26.25 (95.25 kg, 190.50 cm) bb MDM: 04:45 Data reviewed: vital signs, nurses notes, lab test result(s), radiologic studies. kdr Counseling: I had a detailed discussion with the patient and/or guardian regarding: the historical points, exam findings, and any diagnostic results supporting the discharge/admit diagnosis, lab results, radiology results, the need for outpatient follow up. 05:38 Patient medically screened. kdr 05:42 Special discussion: I discussed with the patient/guardian in detail that at this point kdr there is no indication for admission to the hospital. It is understood, however, that if the symptoms persist or worsen the patient needs to return immediately for re-evaluation. ED course: Pain down to a (1). The patient was otherwise stable . 02/22 03:25 Order name: CBC with Diff kdr 02/22 03:25 Order name: Chem 7 kdr 02/22 03:28 Order name: CBC with Automated Diff; Complete Time: 04:34 EDMS 02/22 03:28 Order name: Basic Metabolic Panel; Complete Time: 04:34 EDMS 02/22 04:34 Order name: Knee Right 2 View XRAY kdr 02/22 03:28 Order name: IV; Complete Time: 03:41 jd3 Administered Medications: 03:57 Drug: morphine 4 mg Route: IVP; Site: left antecubital; jd3 05:14 Follow up: Pain 08/28 Adult; Response: No adverse reaction; Pain is decreased jd3 03:57 Drug: Zofran 4 mg Route: IVP; Site: left antecubital; jd3 05:14 Follow up: Response: No adverse reaction jd3 03:57 Drug: TORadol 30 mg Route: IVP; Site: left antecubital; jd3 05:14 Follow up: Response: No adverse reaction jd3 03:57 Drug: NS 0.9% 500 ml Route: IV; Rate: bolus; Site: left antecubital; jd3 05:15 Follow up: Response: No adverse reaction; IV Status: Completed infusion; IV Intake: jd3 500ml 05:44 Drug: Colchicine-Probenecid 1 tabs Route: PO; jd3 05:56 Follow up: Response: Medication administered at discharge. jd3 05:50 Drug: [place] 10 mg-325 mg 1 tabs Route: PO; jd3 05:57 Follow up: Response: Medication administered at discharge. jd3 05:50 Drug: predniSONE 20 mg Route: PO; jd3 05:57 Follow up: Response: Medication administered at discharge. jd3 Disposition: 02/22/18 05:38 Discharged to Home. Impression: Gout - Right knee, Renal Insufficiency (2.5 Cr). - Condition is Stable. - Discharge Instructions: Gout, [id number]. - Prescriptions for Colchicine- Probenecid 0.5-500 mg Oral Tablet - take 1 tablet by ORAL route every 1 hour up to 3 hours for 2 days; 6 tablet. Prednisone 20 mg Oral Tablet - take 1 tablet by ORAL route once daily for 5 days; 5 tablet. Tylenol- Codeine #3 300-30 mg Oral Tablet - take 2 tablets by ORAL route every 6 hours As needed 1-2 tabs PO Q 4-6 hrs PRN pain; 16 tablet. - Medication Reconciliation Form, Thank You Letter, Antibiotic Education, Prescription Opioid Use form. - Follow up: Private Physician; When: 2 - 3 days; Reason: If symptoms return, Further diagnostic work-up, Recheck today's complaints, Continuance of care, Re-evaluation by your physician. - Problem is an acute exacerbation. - Symptoms have improved. Signatures: Dispatcher [employer] EDManuel Diaz MD MD kdr Ballard, Brenda, RN RN Ronan Mcmillan RN RN jd3 Corrections: (The following items were deleted from the chart) 05:56 05:38 02/22/2018 05:38 Discharged to Home. Impression: Gout - Right knee; Renal jd3 Insufficiency (2.5 Cr). Condition is Stable. Forms are Medication Reconciliation Form, Thank You Letter, Antibiotic Education, Prescription Opioid Use. Follow up: Private Physician; When: 2 - 3 days; Reason: If symptoms return, Further diagnostic work-up, Recheck today's complaints, Continuance of care, Re-evaluation by your physician. Problem is an acute exacerbation. Symptoms have improved. kdr
[2018-02-22] MEDS ORDERED: COLCHICINE 0.6 MG TAB ONE (05:45)
[2018-02-22] MEDS ORDERED: HYDROCODONE/APAP 10/325 TAB ONE (05:49)
[2018-02-22] MEDS ORDERED: predniSONE 20 MG TAB ONE (05:49)
[2018-02-22 06:01] VITALS: TEMP 97.6
[2018-02-22 06:04] VITALS: BP 129/86; O2SAT 98
--- NOTE | 2018-02-22 08:32 | RAD REPORT ---
EXAM DESCRIPTION: RAD - Knee Right 2 View - 02/22/2018 4:49 am CLINICAL HISTORY: Right knee pain FINDINGS: No fracture or dislocation is seen. Marked joint space narrowing involves medial, lateral and patella femoral compartments. Osteophytes are noted. Several bony densities lie along the posterior aspect of the knee which may represent loose bodies. S mall joint effusion is suspected Mild lateral subluxation of the tibia on the femur seen
== END 2018-02-22 05:56 | disposition home or self-care (01) ==
LOC: ER 03:01
DX: M10.9 Gout, unspecified (principal); N28.9 Disorder of kidney and ureter, unspecified; I10 Essential (primary) hypertension; I50.9 Heart failure, unspecified; Z88.0 Allergy status to penicillin
CPT/HCPCS: 36415; 80048; 85025; 96361; 96374; 96375; 99284; J2405; J7512

== ENCOUNTER 2018-05-20 09:47 | Emergency (ER) | payer SELFPAY ==
[2018-05-20 10:44] LABS: Absolute Lymphocytes (CBC) 1.3 K/uL (0.7-4.9); Absolute Monocytes 0.7 K/uL (0.1-1.3); Absolute Neutrophil 4.8 K/uL (1.8-8.0); Basophils % 0.6 % (0-1.3); Eosinophils % 2.5 % (0-4.4); Hematocrit 44.4 % (39.6-49.0); Lymphocytes % 18.4 % (15.3-44.8); MCH 29.8 pg (27.0-35.0); MCV 87.2 fL (80-100); MPV 8.7 fL (7.6-11.3); Monocytes % 9.6 % (3.3-12.3); RBC Red Blood Cell Count 5.09 M/uL (4.33-5.43)
[2018-05-20] MEDS ORDERED: KETOROLAC 30 MG/ML INJ ONE (10:47)
[2018-05-20] MEDS ORDERED: METHYLPREDNISOLONE 125 MG INJ ONE (10:47)
[2018-05-20 11:18] LABS: Albumin 3.2 g/dL (3.4-5.0); Bilirubin Total 1.6 mg/dL (0.2-1.0); C-Reactive Protein 12.7 mg/L (<3.00); Potassium 3.9 mmol/L (3.5-5.1); Protein, Total 8.1 g/dL (6.4-8.2)
--- NOTE | 2018-05-20 12:08 | ER ---
Nurse's Notes [facility] Name: Natan Paulino Sr Age: 57 yrs Sex: Male : 1960 Arrival Date: 05/20/2018 Time: 09:50 Bed 19 Private MD: Diagnosis: Arthropathies in other specified diseases classified elsewhere, unspecified knee Presentation: 05/20 09:57 Presenting complaint: Patient states: Swelling and pain to the right knee since last aj1 night. Denies injury. Patient reports history of gout. Transition of care: patient was not received from another setting of care. Onset of symptoms was May 19, 2018. Risk Assessment: Do you want to hurt yourself or someone else? Patient reports no desire to harm self or others. Initial Sepsis Screen: Does the patient meet any 2 criteria? No. Patient's initial sepsis screen is negative. Does the patient have a suspected source of infection? No. Patient's initial sepsis screen is negative. Care prior to arrival: None. 09:57 Method Of Arrival: Wheelchair aj1 09:57 Acuity: NINO 4 aj1 Triage Assessment: 10:01 General: Appears in no apparent distress. uncomfortable, Behavior is calm, cooperative, aj1 appropriate for age. Pain: Complains of pain in right knee Pain currently is 10 out of 10 on a pain scale. Quality of pain is described as throbbing. Neuro: Level of Consciousness is awake, alert, obeys commands. Cardiovascular: Patient's skin is warm and dry. Respiratory: Airway is patent Respiratory effort is even, unlabored, Respiratory pattern is regular, symmetrical. Historical: - Allergies: 10:01 PENICILLINS; aj1 - Home Meds: 10:01 Lasix 20 mg Oral tab 1 tab once daily [Active]; lisinopril 10 mg Oral tab 1 tab once aj1 daily [Active]; metoprolol tartrate 25 mg Oral tab 1 tab 2 times per day [Active]; - PMHx: 10:01 CHF; Gout; Hypertension; Pancreatitis; Rheumatoid Arthritis; TIA; aj1 - Immunization history:: Flu vaccine is up to date. - Social history:: Smoking status: Patient/guardian denies using tobacco, Patient/guardian denies using alcohol, street drugs, The patient lives with family. - Ebola Screening: : Patient denies travel to an Ebola-affected area in the 21 days before illness onset. - Family history:: not pertinent. Screenin:05 Abuse screen: Denies threats or abuse. Nutritional screening: No deficits noted. rb1 Tuberculosis screening: No symptoms or risk factors identified. Fall Risk None identified. Assessment: 10:05 General: Appears uncomfortable, Behavior is calm, cooperative, Denies fever. Pain: rb1 Complains of pain in right knee Pain currently is 10 out of 10 on a pain scale. Pain began last night. Neuro: Level of Consciousness is awake, alert, obeys commands, Oriented to person, place, time, situation. Cardiovascular: Capillary refill < 3 seconds is brisk in bilateral fingers. Respiratory: Airway is patent Respiratory effort is even, unlabored, Respiratory pattern is regular, symmetrical. GI: No signs and/or symptoms were reported involving the gastrointestinal system. : No signs and/or symptoms were reported regarding the genitourinary system. Derm: Skin is dry, Skin is normal, Skin temperature is warm. Musculoskeletal: Swelling present in right knee Pt. has a history of Gout. 11:00 Reassessment: Patient appears in no apparent distress at this time. Patient and/or rb1 family updated on plan of care and expected duration. Pain level reassessed. Patient is alert, oriented x 3, equal unlabored respirations, skin warm/dry/pink. 12:00 Reassessment: Patient appears in no apparent distress at this time. No changes from rb1 previously documented assessment. Vital Signs: 10:01 BP 175 / 104; Pulse 84; Resp 18; Temp 97.1; Pulse Ox 98% on R/A; Weight 108.86 kg (R); aj1 Height 6 ft. 3 in. (190.50 cm) (R); Pain 10/10; 11:00 BP 168 / 98; Pulse 83; Resp 17; Pulse Ox 99% on R/A; rb1 12:00 BP 154 / 90; Pulse 81; Resp 19; Pulse Ox 100% on R/A; rb1 10:01 Body Mass Index 30.00 (108.86 kg, 190.50 cm) aj1 ED Course: 09:50 Patient arrived in ED. rg4 10:00 Triage completed. aj1 10:01 Arm band placed on Patient placed in an exam room. aj1 10:05 Abram Balbuena MD is Attending Physician. ma2 10:05 Patient has correct armband on for positive identification. Bed in low position. Call rb1 light in reach. Side rails up X 1. Pulse ox on. NIBP on. Pillow given. 10:07 Coretta Rodriguez, RN is Primary Nurse. rb1 10:40 Inserted saline lock: 22 gauge in right antecubital area, using aseptic technique. rb1 Blood collected. 12:05 Jesús Peres MD is Referral Physician. ma2 12:38 No provider procedures requiring assistance completed. IV discontinued, intact, ss bleeding controlled, No redness/swelling at site. Pressure dressing applied. Administered Medications: 10:42 Drug: SOLU-Medrol 125 mg Route: IVP; Site: right antecubital; rb1 11:05 Follow up: Response: No adverse reaction rb1 10:42 Drug: TORadol 60 mg Route: IVP; Site: right antecubital; rb1 11:05 Follow up: Response: No adverse reaction; Pain is decreased rb1 10:52 Not Given (changed order per Dr. Masterson): TORadol 60 mg IM once rb1 10:52 Not Given (changed order per Dr. Masterson): MethylPREDNISolone Sodium Succinate 125 mg rb1 IM once Outcome: 12:07 Discharge ordered by . ma2 12:38 Discharged to home ambulatory, with family. ss 12:38 Condition: good 12:38 Discharge instructions given to patient, family, Instructed on discharge instructions, follow up and referral plans. medication usage, Demonstrated understanding of instructions, follow-up care, medications. 12:40 Patient left the ED. ss Signatures: Odalis Carlisle RN RN aj1 Valery Chowdhury RN RN Coretta Rodriguez, RADHIKA GARRIDO rb1 Carissa Norton Mohammad, MD MD pr2
--- NOTE | 2018-05-20 12:08 | EDPHYS ---
Physician Documentation [facility] Name: Natan Paulino Sr Age: 57 yrs Sex: Male : 1960 Arrival Date: 05/20/2018 Time: 09:50 Bed 19 Private MD: ED Physician Abram Balbuena HPI: 05/20 10:14 This 57 yrs old Black Male presents to ER via Wheelchair with complaints of KNEE ma2 SWELLING. 10:14 The patient presents with decreased range of motion, pain. Onset: The symptoms/episode ma2 began/occurred suddenly, 1 day(s) ago. Associated signs and symptoms: Pertinent positives: swelling, Pertinent negatives fever, nausea, rash, swelling, vomiting, warmth, weakness. Severity of symptoms: At their worst the symptoms were moderate, in the emergency department the symptoms are unchanged. The patient has experienced similar episodes in the past, he gets right knee swelling twice a year for the last 5 yrs diagnosed with gout does not take any medication . Historical: - Allergies: 10:01 PENICILLINS; aj1 - Home Meds: 10:01 Lasix 20 mg Oral tab 1 tab once daily [Active]; lisinopril 10 mg Oral tab 1 tab once aj1 daily [Active]; metoprolol tartrate 25 mg Oral tab 1 tab 2 times per day [Active]; - PMHx: 10:01 CHF; Gout; Hypertension; Pancreatitis; Rheumatoid Arthritis; TIA; aj1 - Immunization history:: Flu vaccine is up to date. - Social history:: Smoking status: Patient/guardian denies using tobacco, Patient/guardian denies using alcohol, street drugs, The patient lives with family. - Ebola Screening: : Patient denies travel to an Ebola-affected area in the 21 days before illness onset. - Family history:: not pertinent. ROS: 10:14 Constitutional: Negative for fever, chills, and weight loss, Cardiovascular: Negative ma2 for chest pain, palpitations, and edema, Respiratory: Negative for shortness of breath, cough, wheezing, and pleuritic chest pain, Abdomen/GI: Negative for abdominal pain, nausea, diarrhea, and constipation, Skin: Negative for injury, rash, and discoloration, Neuro: Negative for headache, weakness, numbness, tingling, and seizure, Psych: Negative for depression, anxiety, suicide ideation, homicidal ideation, and hallucinations. 10:14 MS/extremity: Positive for pain, swelling, Negative for injury or acute deformity, abrasion, deformity, ecchymosis, erythema, laceration, paresthesias, puncture, rash, tingling, warmth. 10:14 All other systems are negative. Exam: 10:14 Constitutional: This is a well developed, well nourished patient who is awake, alert, ma2 and in no acute distress. Head/Face: Normocephalic, atraumatic. Chest/axilla: Normal chest wall appearance and motion. Nontender with no deformity. No lesions are appreciated. Cardiovascular: Regular rate and rhythm with a normal S1 and S2. No gallops, murmurs, or rubs. Normal PMI, no JVD. No pulse deficits. Respiratory: Lungs have equal breath sounds bilaterally, clear to auscultation and percussion. No rales, rhonchi or wheezes noted. No increased work of breathing, no retractions or nasal flaring. Abdomen/GI: Soft, non-tender, with normal bowel sounds. No distension or tympany. No guarding or rebound. No evidence of tenderness throughout. Skin: Warm, dry with normal turgor. Normal color with no rashes, no lesions, and no evidence of cellulitis. Neuro: Awake and alert, GCS 15, oriented to person, place, time, and situation. Cranial nerves II-XII grossly intact. Motor strength 5/5 in all extremities. Sensory grossly intact. Cerebellar exam normal. Normal gait. 10:14 Musculoskeletal/extremity: ROM: limited active range of motion due to pain, right knee, Circulation is intact in all extremities. Sensation intact. right knee swelling and decreased rom skin wnl . Vital Signs: 10:01 BP 175 / 104; Pulse 84; Resp 18; Temp 97.1; Pulse Ox 98% on R/A; Weight 108.86 kg (R); aj1 Height 6 ft. 3 in. (190.50 cm) (R); Pain 10/10; 11:00 BP 168 / 98; Pulse 83; Resp 17; Pulse Ox 99% on R/A; rb1 12:00 BP 154 / 90; Pulse 81; Resp 19; Pulse Ox 100% on R/A; rb1 10:01 Body Mass Index 30.00 (108.86 kg, 190.50 cm) aj1 MDM: 10:06 Patient medically screened. ma2 10:14 Differential diagnosis: contusion, likely gout vs RA vs OA unlikely septic artheritis. ma2 12:01 Data reviewed: vital signs, nurses notes, EMS record. Counseling: I had a detailed ma2 discussion with the patient and/or guardian regarding: the historical points, exam findings, and any diagnostic results supporting the discharge/admit diagnosis, the presence of at least one elevated blood pressure reading (>120/80) during this emergency department visit, lab results, the need for outpatient follow up. ED course: unlikely septic arthritis given wnl ESR and non critical CRP, he had these symptoms twice a year for the last 5 year, joint is swelling and not warm, will send to ortho for further evaluation . 05/20 10:14 Order name: CBC with Diff; Complete Time: 12:00 ma2 05/20 10:14 Order name: CMP; Complete Time: 12:00 ma2 05/20 10:14 Order name: ESR; Complete Time: 12:00 ma2 05/20 10:14 Order name: CRP; Complete Time: 12:00 ma2 Administered Medications: 10:42 Drug: SOLU-Medrol 125 mg Route: IVP; Site: right antecubital; rb1 11:05 Follow up: Response: No adverse reaction rb1 10:42 Drug: TORadol 60 mg Route: IVP; Site: right antecubital; rb1 11:05 Follow up: Response: No adverse reaction; Pain is decreased rb1 10:52 Not Given (changed order per Dr. Masterson): TORadol 60 mg IM once rb1 10:52 Not Given (changed order per Dr. Masterson): MethylPREDNISolone Sodium Succinate 125 mg rb1 IM once Disposition: 05/20/18 12:07 Discharged to Home. Impression: Arthropathies in other specified diseases classified elsewhere, unspecified knee. - Condition is Stable. - Discharge Instructions: Knee Pain, [id number]. - Prescriptions for indomethacin 25 mg Oral capsule - take 2 capsule by ORAL route 3 times per day for 7 days; 30 capsule. Prednisone 20 mg Oral Tablet - take 3 tablet by ORAL route once daily for 5 days; 15 tablet. - Medication Reconciliation Form, Thank You Letter, Antibiotic Education, Prescription Opioid Use form. - Follow up: Jesús Peres MD; When: Tomorrow; Reason: Continuance of care. - Problem is new. - Symptoms are unchanged. Signatures: Dispatcher [employer] EDOdalis Bellamy RN RN aj1 Valery Chowdhury RN RN ss Coretta Rodriguez RN RN rb1 Abram Balbuena MD MD ma2 Corrections: (The following items were deleted from the chart) 12:40 12:07 05/20/2018 12:07 Discharged to Home. Impression: Arthropathies in other specified ss diseases classified elsewhere, unspecified knee. Condition is Stable. Forms are Medication Reconciliation Form, Thank You Letter, Antibiotic Education, Prescription Opioid Use. Follow up: Dr. Jesús Peres; When: Tomorrow; Reason: Continuance of care. Problem is new. Symptoms are unchanged. ma2
== END 2018-05-20 12:40 | disposition home or self-care (01) ==
LOC: ER 09:47
DX: M12.861 Other specific arthropathies, not elsewhere classified, right knee (principal); I10 Essential (primary) hypertension; I50.9 Heart failure, unspecified; Z88.0 Allergy status to penicillin
CPT/HCPCS: 36415; 80053; 85025; 85652; 86140; 96374; 96375; 99284; J2930

== ENCOUNTER 2018-08-15 03:04 | Inpatient (IN) | payer SELFPAY ==
[2018-08-15 03:46] LABS: Absolute Lymphocytes (CBC) 1.2 K/uL (0.7-4.9); Absolute Monocytes 0.7 K/uL (0.1-1.3); Absolute Neutrophil 5.2 K/uL (1.8-8.0); Basophils % 0.9 % (0-1.3); Eosinophils % 1.6 % (0-4.4); Hematocrit 47.8 % (39.6-49.0); Lymphocytes % 16.1 % (15.3-44.8); MPV 9.4 fL (7.6-11.3); Monocytes % 10.1 % (3.3-12.3); RBC Red Blood Cell Count 5.47 M/uL (4.33-5.43)
[2018-08-15] MEDS ORDERED: MORPHINE 4 MG/ML SYR ONE (03:57)
[2018-08-15] MEDS ORDERED: NA CHLORIDE 0.9% 1,000 ML ONE (03:58)
[2018-08-15] MEDS ORDERED: ONDANSETRON 4 MG/2 ML VIAL ONE (03:58)
[2018-08-15 04:04] LABS: Bilirubin Direct 0.7 mg/dL (0-0.2); Potassium 3.9 mmol/L (3.5-5.1); Protein, Total 8.3 g/dL (6.4-8.2)
--- NOTE | 2018-08-15 04:39 | ER ---
Nurse's Notes [facility] Name: Natan Paulino Sr Age: 58 yrs Sex: Male : 1960 Arrival Date: 08/15/2018 Time: 03:05 Bed 6 Private MD: Diagnosis: Alcohol induced acute pancreatitis Presentation: 08/15 03:17 Presenting complaint: Patient states: Reports abdominal pain that started yesterday ea evening, states the pain is similar to when he was diagnosed with pancreatitis. Transition of care: patient was not received from another setting of care. Onset of symptoms was August 15, 2018. Risk Assessment: Do you want to hurt yourself or someone else? Patient reports no desire to harm self or others. Initial Sepsis Screen: Does the patient meet any 2 criteria? No. Patient's initial sepsis screen is negative. Does the patient have a suspected source of infection? No. Patient's initial sepsis screen is negative. Care prior to arrival: None. 03:17 Method Of Arrival: Wheelchair ea 03:17 Acuity: NINO 3 ea Triage Assessment: 03:22 General: Appears uncomfortable, Behavior is restless. Pain: Complains of pain in ea abdomen Pain currently is 10 out of 10 on a pain scale. Neuro: Level of Consciousness is awake, alert, obeys commands, Oriented to person, place, time, situation. Cardiovascular: Patient's skin is warm and dry. Respiratory: Airway is patent Respiratory effort is even, unlabored, Respiratory pattern is regular, symmetrical. GI: Abdomen is round Patient currently denies diarrhea, nausea, vomiting. Derm: Skin is pink, warm \T\ dry. Historical: - Allergies: 03:20 PENICILLINS; ea - Home Meds: 03:20 Lasix 20 mg Oral tab 1 tab once daily [Active]; lisinopril 10 mg Oral tab 1 tab once ea daily [Active]; metoprolol tartrate 25 mg Oral tab 1 tab 2 times per day [Active]; - PMHx: 03:20 CHF; Gout; Hypertension; Pancreatitis; Rheumatoid Arthritis; TIA; ea - PSHx: 03:20 None; ea - Immunization history:: Adult Immunizations up to date. - Social history:: Smoking status: Patient/guardian denies using tobacco, Patient uses alcohol, report last drink was [place]. Daughter reports he has been drinking every day. - Ebola Screening: : No symptoms or risks identified at this time. Screenin:19 Abuse screen: Denies threats or abuse. Nutritional screening: No deficits noted. ea Tuberculosis screening: No symptoms or risk factors identified. Fall Risk None identified. Assessment: 03:22 General: Appears in no apparent distress. uncomfortable, Behavior is calm, cooperative, jd3 appropriate for age. Pain: Complains of pain in abdomen Quality of pain is described as sharp. Neuro: Level of Consciousness is awake, alert, obeys commands, Oriented to person, place, time, situation, Appropriate for age. Cardiovascular: Capillary refill < 3 seconds Patient's skin is warm and dry. Respiratory: Airway is patent Respiratory effort is even, unlabored, Respiratory pattern is regular, symmetrical. GI: Abdomen is round non-distended, Bowel sounds present X 4 quads. Abd is soft Abdomen is tender to palpation Reports upper abdominal pain, nausea. : No signs and/or symptoms were reported regarding the genitourinary system. EENT: No signs and/or symptoms were reported regarding the EENT system. Derm: Skin is intact, Skin is dry, Skin is normal, Skin temperature is warm. Musculoskeletal: Circulation, motion, and sensation intact. Range of motion: intact in all extremities. 04:45 Reassessment: Patient appears in no apparent distress at this time. Patient and/or ca1 family updated on plan of care and expected duration. Pain level reassessed. Patient is alert, oriented x 3, equal unlabored respirations, skin warm/dry/pink. Vital Signs: 03:21 BP 186 / 114; Pulse 93; Resp 20; Temp 98.6; Pulse Ox 97% on R/A; Weight 108.86 kg; ea Height 6 ft. 3 in. (190.50 cm); Pain 10/10; 04:44 BP 176 / 108; Pulse 75; Resp 17 S; Pulse Ox 97% on R/A; jd3 05:28 BP 167 / 109; Pulse 90; Resp 16 S; Pulse Ox 97% on R/A; jd3 03:21 Body Mass Index 30.00 (108.86 kg, 190.50 cm) ea ED Course: 03:05 Patient arrived in ED. am2 03:15 Inserted saline lock: 20 gauge in right antecubital area, using aseptic technique. jd3 Blood collected. 03:18 Triage completed. ea 03:18 Patient has correct armband on for positive identification. Bed in low position. Call ea light in reach. Side rails up X2. 03:19 Arm band placed on right wrist. Patient placed in an exam room, on a stretcher, on ea pulse oximetry. 03:22 Ronan Barros RN is Primary Nurse. jd3 03:24 Latrell Yanes MD is Attending Physician. tw4 04:04 Notified ED physician of a critical lab result(s). vikki of [id number]. 04:38 Spenser Tay MD is Hospitalizing Provider. tw4 05:32 No provider procedures requiring assistance completed. Patient admitted, IV remains in jd3 place. Administered Medications: 03:48 Drug: NS 0.9% 1000 ml Route: IV; Rate: 1 bolus; Site: right antecubital; ca1 05:33 Follow up: Response: No adverse reaction; IV Status: Completed infusion; IV Intake: jd3 1000ml 03:50 Drug: morphine 4 mg Route: IVP; Site: right antecubital; ca1 05:33 Follow up: Response: No adverse reaction jd3 03:52 Drug: Zofran 4 mg Route: IVP; Site: right antecubital; ca1 05:33 Follow up: Response: No adverse reaction jd3 Intake: 05:33 IV: 1000ml; Total: 1000ml. jd3 Outcome: 04:38 Decision to Hospitalize by Provider. tw4 05:32 Admitted to Med/surg accompanied by nurse, via wheelchair, room 403, with chart, Report jd3 called to Jennifer GARRIDO 05:32 Condition: stable 05:32 Instructed on the need for admit, Demonstrated understanding of instructions. 05:48 Patient left the ED. jd3 Signatures: Kaycee Rivera, RN RADHIKA Bridget Yoo Elena, RN RN ea Davies, Jonathon, RADHIKA GARRIDO jLatrell Payne MD MD tw4 Lea Scott RN RN ca1 Corrections: (The following items were deleted from the chart) 05:29 04:44 BP 176 / 208; Pulse 75bpm; Resp 17bpm; Spontaneous; Pulse Ox 97% RA; ca1 jd3
--- NOTE | 2018-08-15 04:39 | EDPHYS ---
Physician Documentation [facility] Name: Natan Paulino Sr Age: 58 yrs Sex: Male : 1960 Arrival Date: 08/15/2018 Time: 03:05 Bed 6 Private MD: CATALINO Physician Latrell Yanes Historical: - Allergies: 08/15 03:20 PENICILLINS; ea - Home Meds: 03:20 Lasix 20 mg Oral tab 1 tab once daily [Active]; lisinopril 10 mg Oral tab 1 tab once ea daily [Active]; metoprolol tartrate 25 mg Oral tab 1 tab 2 times per day [Active]; - PMHx: 03:20 CHF; Gout; Hypertension; Pancreatitis; Rheumatoid Arthritis; TIA; ea - PSHx: 03:20 None; ea - Immunization history:: Adult Immunizations up to date. - Social history:: Smoking status: Patient/guardian denies using tobacco, Patient uses alcohol, report last drink was [place]. Daughter reports he has been drinking every day. - Ebola Screening: : No symptoms or risks identified at this time. Vital Signs: 03:21 BP 186 / 114; Pulse 93; Resp 20; Temp 98.6; Pulse Ox 97% on R/A; Weight 108.86 kg; ea Height 6 ft. 3 in. (190.50 cm); Pain 10/10; 04:44 BP 176 / 108; Pulse 75; Resp 17 S; Pulse Ox 97% on R/A; jd3 05:28 BP 167 / 109; Pulse 90; Resp 16 S; Pulse Ox 97% on R/A; jd3 03:21 Body Mass Index 30.00 (108.86 kg, 190.50 cm) ea MDM: 03:24 Patient medically screened. 08/15 03:18 Order name: Basic Metabolic Panel; Complete Time: 04:21 08/15 04:21 Interpretation: Normal except: GLUC 115; BUN 19; CRE 1.72; GFR 49. 08/15 03:18 Order name: CBC with Diff; Complete Time: 04:21 08/15 04:21 Interpretation: Normal except: RBC 5.47; RDW 17.0. [facility] 08/15 03:18 Order name: Creatinine for Radiology; Complete Time: 04:21 08/15 04:21 Interpretation: Normal except: CRE 1.68; GFR 51. [facility] 08/15 03:18 Order name: Hepatic Function; Complete Time: 04:21 08/15 04:21 Interpretation: BILIT 2.0; TP 8.3; BILID 0.7; ALB 3.0; GLOB 5.3; A/G 0.6; AST 73. [facility] 08/15 03:18 Order name: Lipase; Complete Time: 04:22 08/15 04:22 Interpretation: Normal except: LIP 4704. [facility] 08/15 03:18 Order name: Amylase, Serum; Complete Time: 04:22 08/15 04:22 Interpretation: Within normal limits: ДМИТРИЙ 346. [facility] 08/15 03:18 Order name: IV Saline Lock; Complete Time: 03:26 08/15 03:18 Order name: Labs collected and sent; Complete Time: 03:26 08/15 05:04 Order name: Alcohol Serum/Plasma EDMS Administered Medications: 03:48 Drug: NS 0.9% 1000 ml Route: IV; Rate: 1 bolus; Site: right antecubital; ca1 05:33 Follow up: Response: No adverse reaction; IV Status: Completed infusion; IV Intake: jd3 1000ml 03:50 Drug: morphine 4 mg Route: IVP; Site: right antecubital; ca1 05:33 Follow up: Response: No adverse reaction jd3 03:52 Drug: Zofran 4 mg Route: IVP; Site: right antecubital; ca1 05:33 Follow up: Response: No adverse reaction j Disposition: 08/15/18 04:38 Hospitalization ordered by Spenser Tay for Inpatient Admission. Preliminary diagnosis is Alcohol induced acute pancreatitis. - Bed requested for Telemetry/MedSurg (Inpatient). - Status is Inpatient Admission. jd3 - Condition is Stable. - Problem is an ongoing problem. - Symptoms have worsened. UTI on Admission? No Signatures: Dispatcher [employer] EDMS Isidra Albright RN RN mw Chretien, Felicia RN Tess Hayes RN RN ea Davies, Jonathon, RN RN jd3 Wadley, Terrence, MD MD 4 Lea Scott RN RN ca1 Corrections: (The following items were deleted from the chart) 04:46 04:38 Hospitalization Ordered by Spenser Tay MD for Inpatient Admission. Preliminary mw diagnosis is Alcohol induced acute pancreatitis. Bed requested for Telemetry/MedSurg (Inpatient). Status is Inpatient Admission. Condition is Stable. Problem is an ongoing problem. Symptoms have worsened. UTI on Admission? No. tw4 05:48 04:46 08/15/2018 04:38 Hospitalization Ordered by Spenser Tay MD for Inpatient jd3 Admission. Preliminary diagnosis is Alcohol induced acute pancreatitis. Bed requested for Telemetry/MedSurg (Inpatient). Status is Inpatient Admission. Condition is Stable. Problem is an ongoing problem. Symptoms have worsened. UTI on Admission? No. mw
--- NOTE | 2018-08-15 05:20 | P.HP ---
Certification for Inpatient Patient admitted to: Inpatient With expected LOS: >2 Midnights Practitioner: I am a practitioner with admitting privileges, knowledge of patient current condition, hospital course, and medical plan of care. Services: Services provided to patient in accordance with Admission requirements found in Title 42 Section 412.3 of the Code of Federal Regulations Patient History Date of Service: 08/15/18 Reason for admission: alcoholic pancreatitis Allergies Penicillins Allergy (Verified 10/30/16 23:49) Hives/Rash Home medications list reviewed: Yes Home Medications: Furosemide [Lasix*] 20 mg PO DAILY 05/08/17 Metoprolol Tartrate [Lopressor*] 25 mg PO BID 09/11/17 Lisinopril/Hydrochlorothiazide [Lisinopril-Hctz 20-12.5 mg Tab] 1 each PO DAILY #30 tablet 09/13/17 - Past Medical/Surgical History Diabetic: No -: hypertension -: irregular heart beat -: PANCREATITIS -: TIA -: CHF Past Surgical History: Reviewed- Non-Contributory - Family History Father -: Hypertension, Lung disease, Cancer, Liver disease Notes: asbestos. exposure Mother Notes: mom is healthy - Social History Smoking Status: Never smoker Alcohol use: Yes CD- Drugs: No Caffeine use: Yes Place of Residence: Home Physical Examination - Studies Laboratory Data (last 24 hrs) 08/15/18 03:15: Creatinine 1.68 H 08/15/18 03:15: WBC 7.3, Hgb 16.2, Hct 47.8, Plt Count 267 08/15/18 03:15: Sodium 140, Potassium 3.9, BUN 19 H, Creatinine 1.72 H, Glucose 115 H, Total Bilirubin 2.0 H, AST 73 H, ALT 48, Alkaline Phosphatase 100, Amylase 346 H*, Lipase 4704 H Assessment and Plan - Advance Directives Does patient have a Living Will: No Does patient have a Durable POA for Healthcare: Yes
--- NOTE | 2018-08-15 05:26 | P.HP ---
Certification for Inpatient Patient admitted to: Inpatient With expected LOS: >2 Midnights Practitioner: I am a practitioner with admitting privileges, knowledge of patient current condition, hospital course, and medical plan of care. Services: Services provided to patient in accordance with Admission requirements found in Title 42 Section 412.3 of the Code of Federal Regulations Patient History Date of Service: 08/15/18 Reason for admission: alcoholic pancreatitis History of Present Illness: Mr Paulino is a 58 years old male with history of alcohol abuse, HTN, recurrent episodes of alcoholic pancreatitis, last one on 02/03, came to ED complaining of severe abdominal pain. His symptoms started yesterday. The pain is constant, diffuse, but mostly localized on LUQ, radiated to his back. intensity 10/10. He has had similar abdominal pain in the past. He has had nausea and vomiting, also 1 episode of diarrhea. He denied fever or chills. Last time he drinks alcohol was yesterday. Lab work shows normal WBC count, increased creatinine, significantly elevation of lipase and amylase. No fever at arrival. Allergies Penicillins Allergy (Verified 10/30/16 23:49) Hives/Rash Home medications list reviewed: Yes Home Medications: Furosemide [Lasix*] 20 mg PO DAILY 05/08/17 Metoprolol Tartrate [Lopressor*] 25 mg PO BID 09/11/17 Lisinopril/Hydrochlorothiazide [Lisinopril-Hctz 20-12.5 mg Tab] 1 each PO DAILY #30 tablet 09/13/17 - Past Medical/Surgical History Diabetic: No -: hypertension -: irregular heart beat -: PANCREATITIS -: TIA -: CHF - Family History Father -: Hypertension, Lung disease, Cancer, Liver disease Notes: asbestos. exposure Mother Notes: mom is healthy - Social History Smoking Status: Never smoker Alcohol use: Yes CD- Drugs: No Caffeine use: Yes Place of Residence: Home Review of Systems 10-point ROS is otherwise unremarkable Physical Examination - Physical Exam General: Alert, Moderate distress (due to abdominal pain) HEENT: Atraumatic, PERRLA, Mucous membr. moist/pink, EOMI, Sclerae nonicteric Neck: Supple, 2+ carotid pulse no bruit, No LAD, Without JVD or thyroid abnormality Respiratory: Clear to auscultation bilaterally, Normal air movement Cardiovascular: Regular rate/rhythm, Normal S1 S2 Gastrointestinal: Hypoactive, Distended, Tenderness (generalized tenderness to palpation, more on LUQ) Musculoskeletal: No tenderness Integumentary: No rashes Neurological: Normal speech, Normal strength at 5/5 x4 extr, Normal tone, Normal affect Lymphatics: No axilla or inguinal lymphadenopathy - Studies Laboratory Data (last 24 hrs) 08/15/18 03:15: Creatinine 1.68 H 08/15/18 03:15: WBC 7.3, Hgb 16.2, Hct 47.8, Plt Count 267 08/15/18 03:15: Sodium 140, Potassium 3.9, BUN 19 H, Creatinine 1.72 H, Glucose 115 H, Total Bilirubin 2.0 H, AST 73 H, ALT 48, Alkaline Phosphatase 100, Amylase 346 H*, Lipase 4704 H Assessment and Plan - Problems (Diagnosis) (1) Acute kidney injury superimposed on CKD Onset Date: 09/11/17 Current Visit: No Status: Acute (2) Alcoholic pancreatitis Onset Date: 05/08/17 Current Visit: No Status: Acute Qualifiers: Chronicity: acute (3) HTN (hypertension) Onset Date: 11/01/16 Current Visit: No Status: Chronic Qualifiers: Hypertension type: essential hypertension (4) ETOH abuse Onset Date: 10/31/16 Current Visit: No Status: Chronic - Plan The patient will be admitted to the hospital due to alcoholic pancreatitis. Creatinine is more elevated than previous admission, consistent with acute on CKD. Will keep the patient NPO, start IV fluids, banana bag, symptomatic medication for pain and nausea, watch the patient for alcohol withdrawal. - Advance Directives Does patient have a Living Will: No Does patient have a Durable POA for Healthcare: Yes - Code Status/Comfort Care Code Status Assessed: Yes Code Status: Full Code
[2018-08-15] MEDS ORDERED: NA CHLORIDE 0.9% 1,000 ML IV SCH (05:49)
[2018-08-15] MEDS ORDERED: MORPHINE 2 MG/ML SYR IV PRN (05:49)
[2018-08-15] MEDS ORDERED: FLUMAZENIL 0.1 MG/ML (5 mL VIAL) IV PRN (05:49)
[2018-08-15] MEDS ORDERED: ONDANSETRON 4 MG/2 ML VIAL IV PRN (05:49)
[2018-08-15] MEDS: LORazepam 2 MG/ML VIAL IV SCH ×5 (06:18→22:07)
[2018-08-15 07:01] VITALS: BMI 29.9
[2018-08-15] MEDS: ENOXAPARIN 30 MG/0.3 ML SQ SCH (08:53)
[2018-08-15] MEDS: FOLIC ACID 1 MG, MULTIVITAMINS INJ 10 ML, THIAMINE HCL 100 MG in NA CHLORIDE 0.9% 1,000 ML IV SCH (08:53)
[2018-08-15] MEDS: NA CHLORIDE 0.9% 1,000 ML IV SCH ×2 (15:00→22:06)
[2018-08-15] MEDS: ACETAMINOPHEN 500 MG TAB PO PRN (18:39)
--- NOTE | 2018-08-15 19:53 | PN ---
Date of Progress Note: 08/15/2018 Subjective: The patient is seen and examined. Chart reviewed and case discussed with RN. The patie nt complains of some abdominal pain; otherwise, no nausea or vomiting. Medications: List reviewed. Physical Examination: Vital Signs: Temperature 97.9, heart rate 78, blood pressure 160/80, respirations 18, O2 98% on room air. General: Awake, alert, oriented x3. Some mild distress due to pain. Obese male. CV: S1, S2. Regular rate and rhythm. Peripheral pulses are present. Respiratory: Moving air well bilaterally. No wheezing. Gastrointestinal: Abdomen is soft. Mild tenderness to palpation in the epigastric region. No guard ing or rigidity. Bowel sounds positive. Extremities: No clubbing, cyanosis, or edema. Neurologic: Nonfocal. Laboratory Data: Sodium 140, potassium 3.9, chloride 106, CO2 23, BUN 19, creatinine 1.68, glucose 1 15, calcium 8.9, amylase 346, lipase 4704. WBC 7.3, H and H 16.2 and 47.8. Alcohol level is 6. Assessment And Plan: A 58-year-old male with: 1.Acute alcoholic pancreatitis. Lipase is elevated. The patient has been counseled. We will maryjo nue with IV fluids, n.p.o. status. Monitor amylase, lipase levels. 2.Acute on chronic kidney injury, stage II. We will continue to monitor creatinine level, it should improve with hydration. We will continue IV fluids. 3.Essential hypertension. Resume home medications. We will use p.r.n. medications IV as the patien t is n.p.o. 4.Alcohol abuse. Alcohol level is 6. The patient again counseled extensively. We will start on At griffin p.r.n. and multivitamin and thiamine, folate and watch for signs of alcohol withdrawal. 5.Obesity, BMI of 30. 6.History of congestive heart failure. Last known ejection fraction of 50 to 55%; diastolic dysfunc tion, chronic. 7.Gastrointestinal and deep venous thrombosis prophylaxis with PPI and the Lovenox. Plan: We will start on clear liquids and advance as tolerated. Monitor lipase level. Likely discha rge in the next 48-72 hours, depending on clinical response. SA/MODL Voice ID: [id number] Report ID: [id number]
[2018-08-16] MEDS: LORazepam 2 MG/ML VIAL IV SCH ×6 (02:00→21:35)
[2018-08-16] MEDS: NA CHLORIDE 0.9% 1,000 ML IV SCH ×2 (06:03→09:39)
[2018-08-16] MEDS: HYDRALAZINE HCL 20 MG/ML VIAL IV PRN ×2 (06:04→11:21)
[2018-08-16 06:30] LABS: Absolute Lymphocytes (CBC) 1.1 K/uL (0.7-4.9); Absolute Monocytes 0.6 K/uL (0.1-1.3); Absolute Neutrophil 3.7 K/uL (1.8-8.0); Basophils % 0.4 % (0-1.3); Eosinophils % 3.2 % (0-4.4); Hematocrit 41.6 % (39.6-49.0); Lymphocytes % 19.9 % (15.3-44.8); RBC Red Blood Cell Count 4.73 M/uL (4.33-5.43)
[2018-08-16 06:36] LABS: Albumin 2.4 g/dL (3.4-5.0); Bilirubin Total 1.7 mg/dL (0.2-1.0); Protein, Total 6.8 g/dL (6.4-8.2)
[2018-08-16] MEDS: MORPHINE 4 MG/ML SYR IV PRN ×2 (08:11→16:00)
[2018-08-16] MEDS: hydroCHLOROthiazide 12.5 MG CAP PO SCH (08:12)
[2018-08-16] MEDS: LISINOPRIL 20 MG TAB PO SCH (08:12)
[2018-08-16] MEDS: FOLIC ACID 1 MG, MULTIVITAMINS INJ 10 ML, THIAMINE HCL 100 MG in NA CHLORIDE 0.9% 1,000 ML IV SCH (08:13)
[2018-08-16] MEDS: ENOXAPARIN 30 MG/0.3 ML SQ SCH (08:13)
[2018-08-16] MEDS ORDERED: HOME MED 1 EA UNK (Lisinopril/Hydrochlorothiazide [Lisinopril-Hctz 20-12.5 Mg Tab] 1 TAB) PO SCH (09:00)
[2018-08-16 10:48] LABS: Urine Appearance CLEAR; Urine Bilirubin NEGATIVE (NEG); Urine Blood NEGATIVE (NEG); Urine Color YELLOW; Urine Glucose NEGATIVE (NEG); Urine Protein 2+ (NEG)
[2018-08-16 11:18] LABS: Urine Bacteria <20 /HPF (NONE SEEN); Urine Culture Reflex Order NOT NEEDED; Urine RBC NONE SEEN /HPF (NONE SEEN)
--- NOTE | 2018-08-16 13:48 | RAD REPORT ---
EXAM DESCRIPTION: Shoulder Right 2 View - 08/16/2018 1:34 pm CLINICAL HISTORY: Nontraumatic right shoulder pain COMPARISON: None. TECHNIQUE: Internal and external rotation views of the right shoulder were obtained. FINDINGS: There is no fracture or dislocation. No acute or destructive bone process seen. There is minimal degenerative change at the AC joint and undersurface of the acromion. Acromial humeral joint space is normal. No abnormal soft tissue calcification. IMPRESSION: Right shoulder degenerative change as detailed. No acute findings.
[2018-08-16] MEDS: ACETAMINOPHEN 500 MG TAB PO PRN (15:59)
--- NOTE | 2018-08-16 20:03 | PN ---
Date of Progress Note: 08/16/2018 History: The patient seen and examined. Chart reviewed and case discussed with RN. The patient sta fan his abdominal pain is better, however, being complaining of shoulder pain on the right side. Den ies any trauma. Medications: List reviewed. Physical Examination: Vital Signs: Temperature 98.4, heart rate 94, blood pressure 158/104, respirations 18, O2 100% on ro om air. General: Awake, alert, oriented x3, in some mild distress, ill-appearing male. Obese. CV: S1, S2. Regular rate and rhythm. Peripheral pulses present. Respiratory: Moving air well bilaterally. No wheezing or stridor. Gastrointestinal: Abdomen is soft. Mild tenderness to palpation in the epigastric region. No guard ing or rigidity. Bowel sounds positive. Extremities: No clubbing, cyanosis, or edema. Musculoskeletal: Right shoulder decreased range of motion. No tenderness to palpation. Pain with r niecy of motion. Neurologic: Nonfocal. Laboratory Data: Sodium 142, potassium 4, chloride 110, CO2 21, BUN 14, creatinine 1.43, calcium 8.3 . Amylase 152, lipase 825. WBC 5.6, H and H 14 and 41.6, platelets 204. Shoulder x-ray, personally reviewed, shows right shoulder degenerative change as detailed. No acute or destructive bony proces s seen. No fracture or dislocation. Assessment And Plan: A 58-year-old male with: 1.Acute pancreatitis secondary to alcohol abuse. Lipase trending down. We will start on GI soft di et. Continue to monitor lipase and amylase levels. 2.Acute chronic kidney injury, stage 2. Creatinine is improving. We will continue IV fluid hydrati on and monitor. 3.Essential hypertension stable. The patient may be having some signs of alcohol withdrawal with el evated blood pressure and heart rate. We will continue to monitor. 4.Alcohol abuse and dependence. Ativan p.r.n., continue banana bag. Monitor for signs of withdrawa l. 5.Right shoulder pain. Chest x-rays show some degenerative changes. No acute issues. We will have Physical therapy work with the patient. 6.Obesity, BMI of 30. 7.History of diastolic heart failure, chronic. 8.Gastrointestinal and deep venous thrombosis prophylaxes, PPI and Lovenox. Plan: PT eval. Advance diet. Likely discharge in the next 24-48 hours depending on clinical respon se. SA/MODL Voice ID: [id number] Report ID: [id number]
[2018-08-17] MEDS: LORazepam 2 MG/ML VIAL IV SCH ×5 (02:00→23:08)
[2018-08-17] MEDS: HYDRALAZINE HCL 20 MG/ML VIAL IV PRN ×2 (04:24→12:03)
[2018-08-17] MEDS: NA CHLORIDE 0.9% 1,000 ML IV SCH (05:18)
[2018-08-17 05:42] LABS: Magnesium 1.8 mg/dL (1.8-2.4); Potassium 3.7 mmol/L (3.5-5.1)
[2018-08-17] MEDS ORDERED: MAGNESIUM SULFATE 1 gm IVPB 1 GM/100 ML BAG IV ONE (05:48)
[2018-08-17] MEDS ORDERED: POTASSIUM CL SA 10 MEQ TAB PO ONE (05:51)
[2018-08-17] MEDS: ENOXAPARIN 30 MG/0.3 ML SQ SCH (08:41)
[2018-08-17] MEDS: LISINOPRIL 20 MG TAB PO SCH (08:42)
[2018-08-17] MEDS: hydroCHLOROthiazide 12.5 MG CAP PO SCH (08:43)
[2018-08-17] MEDS: FOLIC ACID 1 MG, MULTIVITAMINS INJ 10 ML, THIAMINE HCL 100 MG in NA CHLORIDE 0.9% 1,000 ML IV SCH (08:46)
[2018-08-17] MEDS: ACETAMINOPHEN 500 MG TAB PO PRN ×4 (12:02→23:07)
--- NOTE | 2018-08-17 14:53 | RAD REPORT ---
EXAM DESCRIPTION: RAD - Chest Pa And Lat (2 Views) - 08/17/2018 2:46 pm CLINICAL HISTORY: fever, cough Chest pain. COMPARISON: Chest Single View dated 05/07/2017; Chest Single View dated 03/07/2017; Chest Single View dated 10/31/2016; Chest Single View dated 10/30/2016 FINDINGS: Lungs are underinflated linear atelectasis suspected in both lung bases. No focal infiltra te typical of pneumonia seen. The heart is mildly prominent size. No displaced fractures. Trace right pleural fluid suspected.
--- NOTE | 2018-08-17 16:43 | PN ---
Date of Progress Note: 08/17/2018 Subjective: The patient is seen and examined. Chart reviewed and case discussed with RN. Per nursing staff, the patient has been somewhat more confused, urinated on his bed, has not been his usual self this morning. The patient is awake and alert, however, does not appear to be at his baseline. May be related to alcohol withdrawal. Medications: Reviewed. Physical Examination: Vital Signs: Temperature 99.8, heart rate 94, blood pressure 159/97, respirations 20, O2 96% on room air. T-max was 100.7 yesterday afternoon 4:00 p.m. General: Awake, alert, oriented x3, somewhat confused, ill-appearing male, obese. CV: S1, S2. Regular rate and rhythm. Peripheral pulses present. Respiratory: Moving air well bilaterally. No wheezing. Gastrointestinal: Abdomen is soft. Mild distention. Mild tenderness in the epigastric region. No rebound or guarding. Bowel sounds are positive. Extremities: No clubbing, cyanosis, or edema. Neurologic: Nonfocal. Musculoskeletal: Decreased range of motion of the right shoulder and tenderness to palpation. Laboratory Data: Sodium 140, potassium 3.7, chloride 109, CO2 20, BUN 12, creatinine 1.45, glucose 111, calcium 8.7, magnesium 1.8. Amylase 137, lipase 534. Assessment And Plan: A 58-year-old male with. 1. Acute alcoholic pancreatitis, improving. Lipase and amylase are trending down. He still has some abdominal tenderness and distention and we will continue on IV fluids. The patient tolerating a GI soft diet. 2. Mralp-bw-uojclia kidney injury, stage 2. Creatinine is around his baseline. We will continue to monitor. 3. Essential hypertension, stable. We will use p.r.n. medications. 4. Alcohol abuse and dependence. We will continue to use Ativan p.r.n. Continue multivitamin replacement. No active signs of withdrawal. However, the patient today is somewhat confused. 5. Right shoulder pain, possible frozen shoulder. x-ray is negative. We will continue with physical therapy and range of motion exercises. 6. Obesity, BMI 30. 7. Diastolic heart failure, chronic. 8. Fever UA was negative on admission. We will obtain a chest x-ray. Maybe be related to etoh w./drawal PLAN: Continue IV fluids. Monitor amylase, lipase levels. Likely discharge in the next 24 hours. Continues to improve and afebrile. SA/MODL Voice ID: [id number] Report ID: [id number] MTDD
[2018-08-18] MEDS: NA CHLORIDE 0.9% 1,000 ML IV SCH ×2 (01:45→22:00)
[2018-08-18 04:38] LABS: Absolute Lymphocytes (CBC) 1.3 K/uL (0.7-4.9); Absolute Monocytes 1.4 K/uL (0.1-1.3); Absolute Neutrophil 10.3 K/uL (1.8-8.0); Basophils % 0.2 % (0-1.3); Eosinophils % 0.1 % (0-4.4); Hematocrit 40.4 % (39.6-49.0); Lymphocytes % 10.3 % (15.3-44.8); MPV 9.5 fL (7.6-11.3); Monocytes % 10.8 % (3.3-12.3); RBC Red Blood Cell Count 4.59 M/uL (4.33-5.43)
[2018-08-18 04:45] LABS: Potassium 3.7 mmol/L (3.5-5.1)
[2018-08-18] MEDS: LORazepam 2 MG/ML VIAL IV SCH ×2 (05:30→11:42)
[2018-08-18] MEDS ORDERED: KCL 20 MEQ/100 mL IVPB 20 MEQ/100 ML BAG IV SCH (07:00)
[2018-08-18] MEDS: hydroCHLOROthiazide 12.5 MG CAP PO SCH (08:45)
[2018-08-18] MEDS: ENOXAPARIN 30 MG/0.3 ML SQ SCH (08:45)
[2018-08-18] MEDS: HYDRALAZINE HCL 20 MG/ML VIAL IV PRN ×3 (08:46→23:37)
[2018-08-18] MEDS: ACETAMINOPHEN 500 MG TAB PO PRN ×3 (08:46→21:02)
[2018-08-18] MEDS: LISINOPRIL 20 MG TAB PO SCH (08:46)
[2018-08-18] MEDS: FOLIC ACID 1 MG, MULTIVITAMINS INJ 10 ML, THIAMINE HCL 100 MG in NA CHLORIDE 0.9% 1,000 ML IV SCH (09:05)
--- NOTE | 2018-08-18 14:13 | PN ---
Date of Progress Note: 08/18/2018 Subjective: Patient seen and examined. Chart reviewed and case discussed with RN. The patient appe ars to be withdrawing from alcohol. Has elevated blood pressure, tachycardic, tachypneic, and has el evated temperature. The patient does not feel well, been going through a withdrawal. No active quijano ucinations at this time. Medications: List reviewed. Physical Examination: Vital Signs: Temperature 101.8, heart rate 112, blood pressure 182/106, respirations 28, O2 96% on r oom air. General: Awake, alert, oriented x3. Some mild distress, ill-appearing, obese male. CV: S1, S2. Sinus tachycardia. Peripheral pulses present. Respiratory: Moving air well bilaterally. No wheezing. Slightly tachypneic. Gastrointestinal: Abdomen is soft, nontender, nondistended. Positive bowel sounds. Extremities: No clubbing, cyanosis, or edema. Neurologic: Nonfocal. Laboratory Data: Sodium 138, potassium 3.7, chloride 109, CO2 20, BUN 16, creatinine 1.61, glucose 1 04, calcium 8.6, magnesium 2. Amylase 138, lipase 702. WBC 13.1, H and H 13.8/40.4, platelets 221. Assessment And Plan: A 58-year-old male with, 1.Acute alcoholic pancreatitis, improving. Lipase, amylase slightly bumped up again today. We will continue to monitor. Clinically, pancreatitis is resolving. Continue IV fluids. The patient is to lerating his diet. 2.Acute alcohol withdrawal. The patient's vital signs are abnormal; on admission, diaphoretic, tach ycardic, and febrile. We will continue with Ativan taper. Monitor for signs of hallucination. 3.Dkkpc-zp-aufvyzh kidney injury, stage 2. Creatinine is slightly worsened today, somewhat close to baseline. We will continue IV fluids and monitor. 4.Essential hypertension, stable. The patient did have some elevated blood pressure readings. We w ill continue with p.r.n. medications. 5.Right shoulder pain. X-ray is negative. Continue physical therapy and range of motion exercises, possibly frozen shoulder versus osteoarthritis. 6.Obesity, BMI of 30. 7.Chronic diastolic heart failure. Plan: Discharge in the next 24-48 hours depending on symptoms. /TERRELL Voice ID: [id number] Report ID: [id number]
[2018-08-18] MEDS: LORazepam 2 MG/ML VIAL IV PRN ×3 (18:29→23:43)
[2018-08-18] MEDS: MORPHINE 4 MG/ML SYR IV PRN (20:52)
[2018-08-19] MEDS: MORPHINE 4 MG/ML SYR IV PRN (01:28)
[2018-08-19] MEDS: ACETAMINOPHEN 500 MG TAB PO PRN ×2 (01:28→20:59)
[2018-08-19] MEDS: METOPROLOL TARTRATE 5 MG/5 ML INJ IV SCH ×3 (02:04→02:20)
[2018-08-19] MEDS ORDERED: METHYLPREDNISOLONE 125 MG INJ IV ONE ×2 (02:43→06:00)
[2018-08-19] MEDS: METOPROLOL TAR 25 MG TAB PO SCH ×2 (05:43→17:29)
[2018-08-19 06:15] LABS: Absolute Lymphocytes (CBC) 0.5 K/uL (0.7-4.9); Absolute Monocytes 0.8 K/uL (0.1-1.3); Absolute Neutrophil 12.7 K/uL (1.8-8.0); Basophils % 0.2 % (0-1.3); Hematocrit 40.3 % (39.6-49.0); Lymphocytes % 3.3 % (15.3-44.8); MPV 9.7 fL (7.6-11.3); Monocytes % 5.4 % (3.3-12.3)
[2018-08-19 06:37] LABS: Albumin 2.2 g/dL (3.4-5.0); Bilirubin Direct 0.8 mg/dL (0-0.2); Bilirubin Total 1.6 mg/dL (0.2-1.0); Protein, Total 7.8 g/dL (6.4-8.2)
[2018-08-19 08:49] LABS: Blood Morphology Comment NOT SEEN (NOT SEEN); Platelet Estimate ADEQ
[2018-08-19] MEDS: LISINOPRIL 20 MG TAB PO SCH (09:03)
[2018-08-19] MEDS: ENOXAPARIN 30 MG/0.3 ML SQ SCH (09:03)
--- NOTE | 2018-08-19 15:15 | P.PN ---
Subjective Date of Service: 08/19/18 Chief Complaint: alcoholic pancreatitis Subjective: No new changes, No C/O voiced, Tolerating diet, Improving Patient seen and examined at bedside. No family at bedside. Chart reviewed and case discussed with nursing staff. Continues to have elevated blood pressure, tachycardia. Last fever of 101.3 at 8:00 p.m. on 18 August. Reports doing better this morning. No new complaints or concerns Review of Systems 10-point ROS is otherwise unremarkable Physical Examination - Vital Signs Temperature: 98.4 F Blood Pressure: 115/78 Pulse: 86 Respirations: 18 Pulse Ox (%): 95 - Physical Exam General: Alert, In no apparent distress, Oriented x3 HEENT: Atraumatic, PERRLA, EOMI Neck: Supple, JVD not distended Respiratory: Clear to auscultation bilaterally, Normal air movement Cardiovascular: Normal S1 S2, Other (Sinus tachycardia) Gastrointestinal: Normal bowel sounds, No tenderness Musculoskeletal: No tenderness Integumentary: No rashes Neurological: Normal speech, Normal tone, Normal affect - Studies Sodium 135, potassium 4, chloride 104, CO2 21, BUN 22, creatinine 1.45, glucose 106 WBC 13.9, H&H 13.7 and 40.3, platelets of 248 Blood cultures: Pending Assessment And Plan - Current Problems (Diagnosis) (1) Alcohol withdrawal Current Visit: Yes Status: Acute (2) Alcoholic pancreatitis Onset Date: 05/08/17 Current Visit: Yes Status: Acute Qualifiers: Chronicity: acute (3) Acute kidney injury superimposed on CKD Onset Date: 09/11/17 Current Visit: Yes Status: Acute (4) HTN (hypertension) Onset Date: 11/01/16 Current Visit: Yes Status: Chronic Qualifiers: Hypertension type: essential hypertension Qualified Code(s): I10 - Essential (primary) hypertension (5) Right shoulder pain Current Visit: Yes Status: Acute (6) Obesity (BMI 30.0-34.9) Current Visit: Yes Status: Chronic - Plan This is a 4-year-old male with: Alcoholic pancreatitis (Acute 05/08/17) K85.20 Improving. Clinically resolving, patient tolerating oral diet. Will continue to monitor Alcohol withdrawal (Acute) F10.239 ETOH abuse (Chronic 10/31/16) F10.10 Continues to have abnormal vital signs, though improved from admission. Denies any hallucinations at this time. Continue on Ativan taper. Continue to monitor for withdrawal symptoms. Will provide resources prior to discharge for alcohol cessation. Acute kidney injury superimposed on CKD (Acute 09/11/17) N17.9, N18.9 Creatinine is slightly improved today, somewhat close to baseline (1.2-1.3). We will continue IV fluids and monitor. HTN (hypertension) (Chronic 11/01/16) I10 Patient did have some elevated blood pressure readings. We will continue to monitor and continue home medications Right shoulder pain (Acute) M25.511 X-ray is negative. Continue physical therapy and range of motion exercises, possibly frozen shoulder versus osteoarthritis. Obesity (BMI 30.0-34.9) (Chronic) E66.9 DVT prophylaxis: Lovenox GI prophylaxis: Not needed Diet: GI soft Disposition: Pending symptomatic improvement. Likely discharge in the next 24 hr. Discharge Plan: Home Physician Review: Patient Assessed, Agree with Above Assessment and Plan Time Spent Managing PTS Care (In Minutes): 35
[2018-08-19] MEDS: NA CHLORIDE 0.9% 1,000 ML IV SCH (17:29)
--- NOTE | 2018-08-20 00:59 | P.PN ---
Subjective Date of Service: 08/19/18 Went to patient's room to assist in moving patient up in his bed. Noted he looked red and was warm. 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 Reviewed his chart, and noted that he had been febrile with joint issues; also on HCTZ. [place] that in this setting it could be gout, but decided to pancx patient as well. Lactate was negative as was procalcitonin. Uric acid in serum was elevated. Most likely overproducer of uric acid(vs. undersecreter). Will start on steroids Review of Systems 10-point ROS is otherwise unremarkable Musculoskeletal: Shoulder Pain, Hand Pain, Leg Pain (;eft lnee), Other (warm and tender joints) Physical Examination - Vital Signs Temperature: 98 F Blood Pressure: 135/89 Pulse: 69 Respirations: 20 Pulse Ox (%): 97 - Physical Exam General: Alert, Oriented x2 Musculoskeletal: Swelling, Erythema, Tenderness, Warmth Assessment & Plan - Problems (Diagnosis) (1) Acute gouty arthropathy Current Visit: Yes Status: Acute - Plan 1. Steroids 2. May need to add colchicone and discharge with colchicine and director women xanthine oxidase inhibitor(uloric or allopurinol) if he improves. Discharge Plan: Home Plan to discharge in: Greater than 2 days - Advance Directives Does patient have a Living Will: No Does patient have a Durable POA for Healthcare: No - Code Status/Comfort Care Code Status: Full Code Physician Review: Patient Assessed, Agree with Above Assessment and Plan Critical Care: No Time Spent Managing PTS Care (In Minutes): 35
[2018-08-20] MEDS: METOPROLOL TAR 25 MG TAB PO SCH (05:31)
[2018-08-20] MEDS: ENOXAPARIN 30 MG/0.3 ML SQ SCH (08:16)
[2018-08-20] MEDS: LISINOPRIL 20 MG TAB PO SCH (08:17)
[2018-08-20 10:48] VITALS: O2SAT 98
[2018-08-20 12:40] VITALS: BP 125/86; TEMP 97.5
== END 2018-08-20 13:50 | disposition home or self-care (01) | DRG 439 ==
LOC: ER 03:04 → ERHOLD 04:59 → 4TH 05:33
PROVIDERS: ADMIT Internal Medicine; ATTEND Family Medicine
DX: K85.20 Alcohol induced acute pancreatitis without necrosis or infection (principal); N17.9 Acute kidney failure, unspecified; I50.32 Chronic diastolic (congestive) heart failure; F10.239 Alcohol dependence with withdrawal, unspecified; I13.0 Hypertensive heart and chronic kidney disease with heart failure and stage 1 through stage 4 chronic kidney disease, or unspecified chronic kidney disease; I10 Essential (primary) hypertension; N18.2 Chronic kidney disease, stage 2 (mild); F10.10 Alcohol abuse, uncomplicated; E66.9 Obesity, unspecified; M10.9 Gout, unspecified; F10.20 Alcohol dependence, uncomplicated; M25.511 Pain in right shoulder; Z68.30 Body mass index [BMI] 30.0-30.9, adult
CPT/HCPCS: 36415; 71046; 80048; 80053; 80061; 80076; 80320; 81001; 82150; 83605; 83690; 83735; 84145; 84550; 85025; 86038; 86225; 87040; 96361; 96374; 96375; 97110; 97112; 97116; 97162; 99285; J0360; J1650; J2270; J2405; J2930; J3411; J3475; J7030

== ENCOUNTER 2018-09-28 00:27 | Emergency (ER) | payer SELFPAY ==
[2018-09-28] MEDS ORDERED: ONDANSETRON 4 MG/2 ML VIAL ONE (01:23)
[2018-09-28] MEDS ORDERED: MEPERIDINE HCL 25 MG/0.5 ML ONE (01:23)
[2018-09-28] MEDS ORDERED: MEPERIDINE HCL 50 MG/ML AMP ONE (01:23)
[2018-09-28 01:32] LABS: Absolute Lymphocytes (CBC) 1.7 K/uL (0.7-4.9); Absolute Monocytes 0.7 K/uL (0.1-1.3); Basophils % 1.3 % (0-1.3); Eosinophils % 2.4 % (0-4.4); Hematocrit 40.1 % (39.6-49.0); Lymphocytes % 29.7 % (15.3-44.8); Monocytes % 13.4 % (3.3-12.3); RBC Red Blood Cell Count 4.76 M/uL (4.33-5.43)
[2018-09-28 01:38] LABS: Potassium 3.8 mmol/L (3.5-5.1); Rheumatoid Factor NEG (NEG); Uric Acid 4.1 mg/dL (3.5-7.2)
--- NOTE | 2018-09-28 02:11 | EDPHYS ---
Physician Documentation [facility] Name: Natna Paulino Sr Age: 58 yrs Sex: Male : 1960 Arrival Date: 09/28/2018 Time: 00:30 Bed 16 Private MD: Gloria Key ED Physician Adin Mott HPI: 09/28 01:13 This 58 yrs old Black Male presents to ER via Wheelchair with complaints of Hand pkl Swelling, Knee swelling. 01:13 Pain right knee, right hand and wrist. Onset: The symptoms/episode began/occurred 2 pkl day(s) ago. The patient has experienced similar episodes in the past, several times. Patient said he has H/O gout. Historical: - Allergies: 00:35 PENICILLINS; jb4 - Home Meds: 00:35 carvedilol oral oral [Active]; Methocarbamol Oral [Active]; meloxicam oral oral jb4 [Active]; - PMHx: 00:35 CHF; Gout; Hypertension; Pancreatitis; Rheumatoid Arthritis; TIA; Osteoarthritis; jb4 - PSHx: 00:35 None; jb4 - Immunization history:: Adult Immunizations up to date, Flu vaccine is up to date. - Social history:: Smoking status: Patient/guardian denies using tobacco, Patient/guardian denies using alcohol. - Ebola Screening: : No symptoms or risks identified at this time. ROS: 01:13 Eyes: Negative for injury, pain, redness, and discharge, ENT: Negative for injury, pkl pain, and discharge, Neck: Negative for injury, pain, and swelling, Cardiovascular: Negative for chest pain, palpitations, and edema, Respiratory: Negative for shortness of breath, cough, wheezing, and pleuritic chest pain, Abdomen/GI: Negative for abdominal pain, nausea, vomiting, diarrhea, and constipation, Back: Negative for injury and pain, : Negative for injury, bleeding, discharge, and swelling, Neuro: Negative for headache, weakness, numbness, tingling, and seizure. 01:13 MS/extremity: Positive for pain, swelling, of the Right knee, left hand and wrist. Exam: 01:13 Head/Face: Normocephalic, atraumatic. Eyes: Pupils equal round and reactive to light, pkl extra-ocular motions intact. Lids and lashes normal. Conjunctiva and sclera are non-icteric and not injected. Cornea within normal limits. Periorbital areas with no swelling, redness, or edema. ENT: Nares patent. No nasal discharge, no septal abnormalities noted. Tympanic membranes are normal and external auditory canals are clear. Oropharynx with no redness, swelling, or masses, exudates, or evidence of obstruction, uvula midline. Mucous membranes moist. Neck: Trachea midline, no thyromegaly or masses palpated, and no cervical lymphadenopathy. Supple, full range of motion without nuchal rigidity, or vertebral point tenderness. No Meningismus. Chest/axilla: Normal chest wall appearance and motion. Nontender with no deformity. No lesions are appreciated. Cardiovascular: Regular rate and rhythm with a normal S1 and S2. No gallops, murmurs, or rubs. Normal PMI, no JVD. No pulse deficits. Respiratory: Lungs have equal breath sounds bilaterally, clear to auscultation and percussion. No rales, rhonchi or wheezes noted. No increased work of breathing, no retractions or nasal flaring. Abdomen/GI: Soft, non-tender, with normal bowel sounds. No distension or tympany. No guarding or rebound. No evidence of tenderness throughout. Back: No spinal tenderness. No costovertebral tenderness. Full range of motion. Neuro: Awake and alert, GCS 15, oriented to person, place, time, and situation. Cranial nerves II-XII grossly intact. Motor strength 5/5 in all extremities. Sensory grossly intact. Cerebellar exam normal. Normal gait. 01:13 Musculoskeletal/extremity: Extremities: grossly normal except: noted in the right knee, left hand and wrist: pain, swelling. Vital Signs: 00:35 BP 145 / 97; Pulse 88; Resp 18; Temp 98.4(O); Pulse Ox 98% on R/A; Weight 105.23 kg jb4 (R); Height 6 ft. 3 in. (190.50 cm) (R); Pain 10/10; 02:01 BP 131 / 90; Pulse 79; Resp 16; Pulse Ox 96% on R/A; jb4 00:35 Body Mass Index 29.00 (105.23 kg, 190.50 cm) jb4 MDM: 00:35 Patient medically screened. pkl 02:08 Data reviewed: vital signs, nurses notes, lab test result(s). pkl 02:17 ED course: Discussed lab. results with patient. Advised to see Loading Machine [employer] Setter in 2 to 3 pkl days. Patient understood instructions. 02 00:56 Order name: CBC with Diff; Complete Time: 02:04 pkl 02 00:56 Order name: Chem 7; Complete Time: 02:04 pkl 02 00:56 Order name: Uric Acid; Complete Time: 02:04 pkl 09/28 00:56 Order name: Sed Rate; Complete Time: 02:04 pkl 02 00:58 Order name: Rheumatoid Factor; Complete Time: 02:04 EDMS Administered Medications: 01:20 Drug: Demerol 75 mg Route: IM; Site: left gluteus; jb4 01:43 Follow up: Response: No adverse reaction; Pain is decreased jb4 01:20 Drug: Zofran 4 mg Route: IM; Site: left gluteus; jb4 01:43 Follow up: Response: No adverse reaction; Nausea is decreased jb4 02:30 Drug: Colchicine-Probenecid 2 tabs Route: PO; jb4 02:55 Follow up: Response: No adverse reaction jb4 Disposition: 09/28/18 02:09 Discharged to Home. Impression: Arthritis right knee, left hand and wrist. Possible gout. - Condition is Stable. - Prescriptions for Colchicine- Probenecid 0.5-500 mg Oral Tablet - take 1 tablet by ORAL route once daily; 5 tablet. - Medication Reconciliation Form, Thank You Letter, Antibiotic Education, Prescription Opioid Use form. - Follow up: Gloria Key; Reason: Re-evaluation by your physician. - Problem is new. - Symptoms are unchanged. Signatures: Dispatcher [employer] EDPA Adin Mott MD MD pkJw Emanuel RN RN jb4 Corrections: (The following items were deleted from the chart) 02:56 02:09 09/28/2018 02:09 Discharged to Home. Impression: Arthritis right knee, left hand jb4 and wrist. Possible gout. Condition is Stable. Forms are Medication Reconciliation Form, Thank You Letter, Antibiotic Education, Prescription Opioid Use. Follow up: Gloria Key; Reason: Re-evaluation by your physician. Problem is new. Symptoms are unchanged. pkl
--- NOTE | 2018-09-28 02:11 | ER ---
Nurse's Notes [facility] Name: Natan Paulino Sr Age: 58 yrs Sex: Male : 1960 Arrival Date: 09/28/2018 Time: 00:30 Bed 16 Private MD: Gloria Key Diagnosis: Arthritis right knee, left hand and wrist. Possible gout Presentation: 09/28 00:35 Presenting complaint: Patient states: I have had swelling in my right knee and my left jb4 hand and wrist since . I tried to ride out the pain but tonight I couldn't stand it anymore. 00:35 Transition of care: patient was not received from another setting of care. Onset of jb4 symptoms was September 26, 2018. Risk Assessment: Do you want to hurt yourself or someone else? Patient reports no desire to harm self or others. Initial Sepsis Screen: Does the patient meet any 2 criteria? No. Patient's initial sepsis screen is negative. Does the patient have a suspected source of infection? No. Patient's initial sepsis screen is negative. Care prior to arrival: None. 00:35 Method Of Arrival: Wheelchair jb4 00:35 Acuity: NINO 3 jb4 Historical: - Allergies: 00:35 PENICILLINS; jb4 - Home Meds: 00:35 carvedilol oral oral [Active]; Methocarbamol Oral [Active]; meloxicam oral oral jb4 [Active]; - PMHx: 00:35 CHF; Gout; Hypertension; Pancreatitis; Rheumatoid Arthritis; TIA; Osteoarthritis; jb4 - PSHx: 00:35 None; jb4 - Immunization history:: Adult Immunizations up to date, Flu vaccine is up to date. - Social history:: Smoking status: Patient/guardian denies using tobacco, Patient/guardian denies using alcohol. - Ebola Screening: : No symptoms or risks identified at this time. Screenin:35 Abuse screen: Denies threats or abuse. Nutritional screening: No deficits noted. jb4 Tuberculosis screening: No symptoms or risk factors identified. Fall Risk Gait- Impaired (20 pts.). Total Harrell Fall Scale indicates No Risk (0-24 pts). Assessment: 00:35 General: Appears in no apparent distress. uncomfortable, Behavior is calm, cooperative, jb4 appropriate for age. Pain: Complains of pain in left hand and right knee Pain does not radiate. Pain currently is 10 out of 10 on a pain scale. Quality of pain is described as throbbing, Pain began . Neuro: Level of Consciousness is awake, alert, obeys commands, Oriented to person, place, time, situation. Cardiovascular: Patient's skin is warm and dry. Respiratory: Airway is patent Respiratory effort is even, unlabored, Respiratory pattern is regular, symmetrical. GI: No signs and/or symptoms were reported involving the gastrointestinal system. : No signs and/or symptoms were reported regarding the genitourinary system. EENT: No signs and/or symptoms were reported regarding the EENT system. Derm: Skin is intact, Skin is dry, Skin is normal, Skin temperature is warm. Musculoskeletal: Circulation, motion, and sensation intact. Range of motion: limited in right knee Swelling present in left hand and right knee. 02:01 Reassessment: Patient appears in no apparent distress at this time. Patient and/or jb4 family updated on plan of care and expected duration. Pain level reassessed. Patient is alert, oriented x 3, equal unlabored respirations, skin warm/dry/pink. Patient states feeling better. 02:54 Reassessment: Patient appears in no apparent distress at this time. Patient and/or jb4 family updated on plan of care and expected duration. Pain level reassessed. Patient is alert, oriented x 3, equal unlabored respirations, skin warm/dry/pink. Vital Signs: 00:35 BP 145 / 97; Pulse 88; Resp 18; Temp 98.4(O); Pulse Ox 98% on R/A; Weight 105.23 kg jb4 (R); Height 6 ft. 3 in. (190.50 cm) (R); Pain 10/10; 02:01 BP 131 / 90; Pulse 79; Resp 16; Pulse Ox 96% on R/A; jb4 00:35 Body Mass Index 29.00 (105.23 kg, 190.50 cm) jb4 ED Course: 00:30 Patient arrived in ED. mr 00:30 Gloria Key is Private Physician. mr 00:35 Adin Mott MD is Attending Physician. pkl 00:35 Arm band placed on right wrist. jb4 00:35 Patient has correct armband on for positive identification. Bed in low position. Call jb4 light in reach. Side rails up X 1. Pulse ox on. NIBP on. 00:42 Jw Jackson, RN is Primary Nurse. jb4 00:45 Triage completed. jb4 01:00 No provider procedures requiring assistance completed. Initial lab(s) drawn, by al, jb4 sent to lab. Inserted saline lock: 20 gauge in left forearm, using aseptic technique. Blood collected. 02:08 Gloria Key is Referral Physician. pkl 02:55 IV discontinued, intact, bleeding controlled. jb4 Administered Medications: 01:20 Drug: Demerol 75 mg Route: IM; Site: left gluteus; jb4 01:43 Follow up: Response: No adverse reaction; Pain is decreased jb4 01:20 Drug: Zofran 4 mg Route: IM; Site: left gluteus; jb4 01:43 Follow up: Response: No adverse reaction; Nausea is decreased jb4 02:30 Drug: Colchicine-Probenecid 2 tabs Route: PO; jb4 02:55 Follow up: Response: No adverse reaction jb4 Outcome: 02:09 Discharge ordered by . pkl 02:55 Discharged to home ambulatory, with significant other. jb4 02:55 Condition: stable 02:55 Discharge instructions given to patient, significant other, Instructed on discharge instructions, follow up and referral plans. medication usage, Demonstrated understanding of instructions, follow-up care, medications, Prescriptions given X 2. 02:56 Patient left the ED. jb4 Signatures: Adin Mott MD MD pkl [facility] mr Jw Jackson, RN RN jb4
[2018-09-28] MEDS ORDERED: COLCHICINE 0.6 MG TAB ONE (02:38)
[2018-09-28 03:03] VITALS: TEMP 98.4
[2018-09-28 03:04] VITALS: BP 131/90; O2SAT 96
== END 2018-09-28 02:56 | disposition home or self-care (01) ==
LOC: ER 00:27
DX: M17.11 Unilateral primary osteoarthritis, right knee (principal); M19.042 Primary osteoarthritis, left hand; M19.032 Primary osteoarthritis, left wrist; I11.0 Hypertensive heart disease with heart failure; I50.9 Heart failure, unspecified; M06.9 Rheumatoid arthritis, unspecified; Z79.1 Long term (current) use of non-steroidal anti-inflammatories (NSAID); Z79.899 Other long term (current) drug therapy; Z86.73 Personal history of transient ischemic attack (TIA), and cerebral infarction without residual deficits
CPT/HCPCS: 36415; 80048; 84550; 85025; 85652; 86430; 96372; 99284; J2175; J2405

== ENCOUNTER 2018-11-12 16:23 | Emergency (ER) | payer SELFPAY ==
[2018-11-12 19:25] LABS: Absolute Lymphocytes (CBC) 1.9 K/uL (0.7-4.9); Absolute Neutrophil 5.5 K/uL (1.8-8.0)
[2018-11-12 19:28] LABS: Basophils % 0.7 % (0-1.3); Eosinophils % 4.1 % (0-4.4); Hematocrit 48.3 % (39.6-49.0); Lymphocytes % 21.6 % (15.3-44.8); MPV 9.2 fL (7.6-11.3); Monocytes % 11.8 % (3.3-12.3); RBC Red Blood Cell Count 5.45 M/uL (4.33-5.43)
[2018-11-12] MEDS ORDERED: FENTANYL CITR 100 MCG/2 ML ONE (19:35)
[2018-11-12] MEDS ORDERED: ONDANSETRON 4 MG/2 ML VIAL ONE (19:36)
[2018-11-12] MEDS ORDERED: ACETAMINOPHEN 500 MG TAB ONE (19:36)
[2018-11-12] MEDS ORDERED: LIDOCAINE 1% MPF 30 ML VIAL ONE (19:36)
[2018-11-12 19:42] LABS: Albumin 3.4 g/dL (3.4-5.0); Bilirubin Total 1.1 mg/dL (0.2-1.0); Protein, Total 8.6 g/dL (6.4-8.2); Uric Acid 9.1 mg/dL (3.5-7.2)
[2018-11-12 19:52] LABS: Blood Morphology Comment NOT SEEN (NOT SEEN); Platelet Estimate ADEQ; Platelets, Giant NOTED; Urine White Blood Cell Casts OK
--- NOTE | 2018-11-12 20:00 | RAD REPORT ---
EXAM DESCRIPTION: RAD - Knee Right 3 View - 11/12/2018 7:36 pm CLINICAL HISTORY: Right knee pain FINDINGS: No fracture or dislocation is seen. A large joint effusion is present. several loose bodies are suspected posteriorly largest measuring 2 centimeters Moderate to marked osteoarthritis involves the medial compartment.
--- NOTE | 2018-11-12 21:39 | EDPHYS ---
Physician Documentation [facility] Name: Natan Paulino Sr Age: 58 yrs Sex: Male : 1960 Arrival Date: 11/12/2018 Time: 16:27 Bed 14 Private MD: ED Physician Asad Kerr HPI: 11/13 00:10 This 58 yrs old Black Male presents to ER via Wheelchair with complaints of Knee Injury.gs 00:10 The patient presents with pain, that is acute. The complaints affect the right knee. gs Onset: The symptoms/episode began/occurred 2 day(s) ago, and became worse and became persistent. Modifying factors: the symptoms are aggravated by movement, bending knee. Associated signs and symptoms: Pertinent negatives fever. Severity of symptoms: At their worst the symptoms were moderate, in the emergency department the symptoms are unchanged. The patient has experienced similar episodes in the past, a few times. Historical: - Allergies: 11/12 16:38 PENICILLINS; tw2 - Home Meds: 16:38 metoprolol tartrate 25 mg Oral tab 1 tab 2 times per day [Active]; meloxicam Oral tw2 [Active]; Methocarbamol Oral [Active]; carvedilol Oral [Active]; Lasix 20 mg Oral tab 1 tab once daily [Active]; lisinopril 10 mg Oral tab 1 tab once daily [Active]; - PMHx: 16:38 CHF; Gout; Hypertension; osteoarthritis; Pancreatitis; Rheumatoid Arthritis; TIA; tw2 - PSHx: 16:38 None; tw2 - Immunization history:: Adult Immunizations. - Social history:: Smoking status: . - Ebola Screening: : Patient denies travel to an Ebola-affected area in the 21 days before illness onset. ROS: 11/13 00:10 All other systems are negative. gs Exam: 00:10 ENT: Nares patent. No nasal discharge, no septal abnormalities noted. Tympanic gs membranes are normal and external auditory canals are clear. Oropharynx with no redness, swelling, or masses, exudates, or evidence of obstruction, uvula midline. Mucous membranes moist. Cardiovascular: Regular rate and rhythm with a normal S1 and S2. No gallops, murmurs, or rubs. Normal PMI, no JVD. No pulse deficits. Respiratory: Lungs have equal breath sounds bilaterally, clear to auscultation and percussion. No rales, rhonchi or wheezes noted. No increased work of breathing, no retractions or nasal flaring. Abdomen/GI: Soft, non-tender, with normal bowel sounds. No distension or tympany. No guarding or rebound. No evidence of tenderness throughout. Neuro: Awake and alert, GCS 15, oriented to person, place, time, and situation. Cranial nerves II-XII grossly intact. Motor strength 5/5 in all extremities. Sensory grossly intact. Cerebellar exam normal. Normal gait. 00:10 Constitutional: The patient appears alert, awake. 00:10 Musculoskeletal/extremity: Circulation is intact in all extremities. Joints: the right knee displays effusion, painful range of motion, tenderness. 00:10 Skin: cellulitis, is not appreciated. Vital Signs: 11/12 16:37 BP 184 / 114; Pulse 94; Resp 19; Temp 98.3(O); Pulse Ox 99% on R/A; Weight 111.13 kg tw2 (R); Height 6 ft. 3 in. (190.50 cm) (R); Pain 10/10; 18:55 BP 175 / 99; Pulse 95; Resp 18; Pulse Ox 97% on R/A; aj1 16:37 Body Mass Index 30.62 (111.13 kg, 190.50 cm) tw2 Procedures: 11/13 00:10 Joint Treatment: Aspiration of right knee using 18 gauge needle, Lidocaine, Removed gs yellow fluid, Dressed with band aid, Patient tolerated well. MDM: 11/12 19:18 Patient medically screened. 11/13 00:10 Differential diagnosis: ARTHRITIS, SEPTIC JOINT, GOUT. Data reviewed: vital signs, gs nurses notes, lab test result(s). Counseling: I had a detailed discussion with the patient and/or guardian regarding: the historical points, exam findings, and any diagnostic results supporting the discharge/admit diagnosis, WANTED TO LEAVE PRIOR TO LAB RESULTS APPEARS TO BE GOUT WILL NOTIFY PT. Response to treatment: There is no appreciated change of the patient's symptoms at this time. 11/12 19:02 Order name: CBC with Diff; Complete Time: 20:04 11/12 19:02 Order name: CMP; Complete Time: 20: la 11/12 19:02 Order name: Uric Acid; Complete Time: 20:04 la 11/12 19:30 Order name: CBC Smear Scan; Complete Time: 20:04 EDMS 11/12 21:31 Order name: Fluid Cell Count,Body; Complete Time: 00:09 11/12 21:31 Order name: Crystals, Fluid; Complete Time: 00:09 11/12 19:02 Order name: Knee Right 3 View XRAY; Complete Time: 20:04 la 11/12 19:02 Order name: IV Start; Complete Time: 19:38 la 11/12 21:33 Order name: Body Fluid Culture 11/12 19:21 Order name: Surgical Consent: for athrocentesis right knee; Complete Time: 19:38 Administered Medications: 11/12 19:38 Drug: fentaNYL (PF) 75 mcg Route: IVP; Site: right antecubital; aj1 22:23 Follow up: Response: No adverse reaction; Pain is decreased aj1 19:38 Drug: Tylenol 1000 mg Route: PO; aj1 21:30 Follow up: Response: No adverse reaction aj1 19:38 Drug: Zofran 4 mg Route: IVP; Site: right antecubital; aj1 22:23 Follow up: Response: No adverse reaction aj1 21:30 Drug: Lidocaine (1 %) 5 mg {Note: administered by Dr. Kerr.} Volume: 20 ml; Route: aj1 Infiltration; 22:01 Drug: [place] 10 mg-325 mg 1 tabs Route: PO; aj1 22:24 Follow up: Response: No adverse reaction aj1 Disposition: 11/12/18 21:38 Discharged to Home. Impression: Monoarthritis, not elsewhere classified, right knee. - Condition is Stable. - Discharge Instructions: Knee Arthrocentesis, Knee Arthrocentesis, Care After. - Prescriptions for Tylenol- Codeine #4 300-60 mg Oral Tablet - take 1 tablet by ORAL route every 6 hours As needed; 12 tablet. - Medication Reconciliation Form, Thank You Letter, Antibiotic Education, Prescription Opioid Use form. - Follow up: Alvin Crystal MD; When: 2 - 3 days; Reason: Re-evaluation by your physician. Signatures: Dispatcher [employer] EDOdalis Bellamy RN RN aj1 Yara Barahona RN RN tw2 Kerr, Asad, MD Franc Tompkins MD MD wa Corrections: (The following items were deleted from the chart) 22:28 21:38 11/12/2018 21:38 Discharged to Home. Impression: Monoarthritis, not elsewhere aj1 classified, right knee. Condition is Stable. Forms are Medication Reconciliation Form, Thank You Letter, Antibiotic Education, Prescription Opioid Use. Follow up: Alvin Crystal; When: 2 - 3 days; Reason: Re-evaluation by your physician. marly
--- NOTE | 2018-11-12 21:39 | ER ---
Nurse's Notes [facility] Name: Natan Paulino Sr Age: 58 yrs Sex: Male : 1960 Arrival Date: 11/12/2018 Time: 16:27 Bed 14 Private MD: Diagnosis: Monoarthritis, not elsewhere classified, right knee Presentation: 11/12 16:36 Presenting complaint: Patient states: my RIGHT knee started hurting yesterday, it tw2 started swelling yesterday too now i just cant take the pain anymore, it feels warm to the touch. Transition of care: patient was not received from another setting of care. Onset of symptoms was November 12, 2018. Risk Assessment: Do you want to hurt yourself or someone else? Patient reports no desire to harm self or others. Initial Sepsis Screen: Does the patient meet any 2 criteria? No. Patient's initial sepsis screen is negative. Does the patient have a suspected source of infection? No. Patient's initial sepsis screen is negative. Care prior to arrival: None. 16:36 Method Of Arrival: Wheelchair tw2 16:36 Acuity: NINO 3 tw2 Triage Assessment: 16:38 General: Appears uncomfortable, well groomed, Behavior is cooperative. Pain: Complains tw2 of pain in right knee. Musculoskeletal: Swelling present in right knee. Injury Description: n/a pt denies fall. Historical: - Allergies: 16:38 PENICILLINS; tw2 - Home Meds: 16:38 metoprolol tartrate 25 mg Oral tab 1 tab 2 times per day [Active]; meloxicam Oral tw2 [Active]; Methocarbamol Oral [Active]; carvedilol Oral [Active]; Lasix 20 mg Oral tab 1 tab once daily [Active]; lisinopril 10 mg Oral tab 1 tab once daily [Active]; - PMHx: 16:38 CHF; Gout; Hypertension; osteoarthritis; Pancreatitis; Rheumatoid Arthritis; TIA; tw2 - PSHx: 16:38 None; tw2 - Immunization history:: Adult Immunizations. - Social history:: Smoking status: . - Ebola Screening: : Patient denies travel to an Ebola-affected area in the 21 days before illness onset. Screenin:55 Abuse screen: Denies threats or abuse. Denies injuries from another. Nutritional aj1 screening: No deficits noted. Tuberculosis screening: No symptoms or risk factors identified. Fall Risk None identified. Assessment: 17:55 Reassessment: Patient is alert, oriented x 3, equal unlabored respirations, skin aj1 warm/dry/pink. 18:30 Reassessment: Patient is upset because no one has come to see him yet. Notified S. aj1 Trenton, RN, charge nurse that no provider has signed up for the patient at this time. 18:45 Reassessment: Dr. Delgado at bedside to evaluate patient and get orders started. aj1 18:55 General: Appears in no apparent distress. uncomfortable, Behavior is calm, cooperative, aj1 appropriate for age. Pain: Complains of pain in right knee. Neuro: Level of Consciousness is awake, alert, obeys commands, Oriented to person, place, time, situation, Speech is normal, Facial symmetry appears normal. Cardiovascular: Patient's skin is warm and dry. Respiratory: Airway is patent Respiratory effort is even, unlabored, Respiratory pattern is regular, symmetrical. GI: No signs and/or symptoms were reported involving the gastrointestinal system. : No signs and/or symptoms were reported regarding the genitourinary system. EENT: No signs and/or symptoms were reported regarding the EENT system. Derm: Skin is pink, warm \T\ dry. normal. Musculoskeletal: Range of motion: limited in right knee Swelling present in right knee. 19:02 Reassessment: awaiting for provider to sign up for patient. MARVA Ling and Guy Chaney NP notified. 19:37 Reassessment: Obtained consent for arthrocentesis of right knee. aj1 20:30 Reassessment: Patient would like to know when ED MD will be in to perform procedure, aj1 states that if he is not in to see him within 15 minutes patient will leave AMA. Notified Dr. Kerr who states he will be right in the with patient. 21:00 Reassessment:. aj1 21:04 Reassessment: Notified patient that a critical patient came in, and the ER physician norma will be in as soon as he is able to. Patient states that if MD is not in the room in 15 minutes he will leave and come back in the morning. 21:30 Reassessment: Dr. Kerr at bedside. aj1 22:00 Reassessment: Patient appears in no apparent distress at this time. No changes from aj1 previously documented assessment. Patient and/or family updated on plan of care and expected duration. Pain level reassessed. Patient is alert, oriented x 3, equal unlabored respirations, skin warm/dry/pink. Vital Signs: 16:37 BP 184 / 114; Pulse 94; Resp 19; Temp 98.3(O); Pulse Ox 99% on R/A; Weight 111.13 kg tw2 (R); Height 6 ft. 3 in. (190.50 cm) (R); Pain 10/10; 18:55 BP 175 / 99; Pulse 95; Resp 18; Pulse Ox 97% on R/A; aj1 16:37 Body Mass Index 30.62 (111.13 kg, 190.50 cm) tw2 ED Course: 16:27 Patient arrived in ED. tw3 16:37 Triage completed. tw2 16:37 Arm band placed on. tw2 17:54 Odalis Carlisle, RN is Primary Nurse. aj1 18:55 Patient has correct armband on for positive identification. Bed in low position. Call aj1 light in reach. Side rails up X 1. 19:14 Asad Kerr MD is Attending Physician. gs 19:37 Knee Right 3 View XRAY In Process Unspecified. EDMS 19:44 Inserted saline lock: 20 gauge in right antecubital area, using aseptic technique. oe Blood collected. 21:38 Alvin Crystal MD is Referral Physician. gs 22:25 No provider procedures requiring assistance completed. IV discontinued, intact, aj1 bleeding controlled, No redness/swelling at site. Pressure dressing applied. Administered Medications: 19:38 Drug: fentaNYL (PF) 75 mcg Route: IVP; Site: right antecubital; aj1 22:23 Follow up: Response: No adverse reaction; Pain is decreased aj1 19:38 Drug: Tylenol 1000 mg Route: PO; aj1 21:30 Follow up: Response: No adverse reaction aj1 19:38 Drug: Zofran 4 mg Route: IVP; Site: right antecubital; aj1 22:23 Follow up: Response: No adverse reaction aj1 21:30 Drug: Lidocaine (1 %) 5 mg {Note: administered by Dr. Kerr.} Volume: 20 ml; Route: aj1 Infiltration; 22:01 Drug: [place] 10 mg-325 mg 1 tabs Route: PO; aj1 22:24 Follow up: Response: No adverse reaction aj1 Outcome: 21:38 Discharge ordered by . 22:27 Discharged to home with crutches, with family. aj1 22:27 Condition: good 22:27 Discharge instructions given to patient, Instructed on discharge instructions, follow up and referral plans. no drinking with medication, no driving heavy equipment, medication usage, Demonstrated understanding of instructions, follow-up care, medications, Prescriptions given X 1. 22:28 Patient left the ED. aj1 Signatures: Dispatcher [employer] EDMS Odalis Carlisle RN RN aj1 Valery Chowdhury RN RN ss Wise, Tara, RN RN tw2 Lucien Flores Tia tw3 Asad Kerr MD MD gs
[2018-11-12] MEDS ORDERED: HYDROCODONE/APAP 10/325 TAB ONE (22:00)
[2018-11-12 22:42] LABS: Appearance TURBID (CLEAR); Body Fluid Source SYNOVIAL; Body Fluid WBC 18209 /mm^3; Color of fluid Yellow (COLORLESS)
[2018-11-12 23:51] VITALS: TEMP 98.3
[2018-11-12 23:53] VITALS: BP 175/99; O2SAT 97
== END 2018-11-12 22:28 | disposition home or self-care (01) ==
LOC: ER 16:23
PROC: 0S9C3ZX Drainage of Right Knee Joint, Percutaneous Approach, Diagnostic (ICD-10-PCS; principal; 2018-11-12)
DX: M13.161 Monoarthritis, not elsewhere classified, right knee (principal); I10 Essential (primary) hypertension; I50.9 Heart failure, unspecified; Z88.0 Allergy status to penicillin
CPT/HCPCS: 36415; 80053; 84550; 85025; 87070; 89050; 89060; 96374; 96375; 99284; J2405; J3010

== ENCOUNTER 2018-11-29 11:15 | Inpatient (IN) | payer SELFPAY ==
[2018-11-29] MEDS ORDERED: ONDANSETRON 4 MG/2 ML VIAL ONE (11:42)
[2018-11-29] MEDS ORDERED: NA CHLORIDE 0.9% 1,000 ML ONE ×2 (11:42→13:14)
[2018-11-29] MEDS ORDERED: HYDROMORPHONE HCL 1 MG/ML INJ ONE (11:42)
[2018-11-29] MEDS ORDERED: PANTOPRAZOLE 40 MG INJ ONE (11:42)
[2018-11-29] MEDS ORDERED: FENTANYL CITR 100 MCG/2 ML ONE (11:45)
[2018-11-29 11:59] LABS: Absolute Lymphocytes (CBC) 1.5 K/uL (0.7-4.9); Absolute Monocytes 0.7 K/uL (0.1-1.3); Absolute Neutrophil 6.2 K/uL (1.8-8.0); Hematocrit 47.4 % (39.6-49.0); Lymphocytes % 17.4 % (15.3-44.8); MPV 8.6 fL (7.6-11.3); Protime INR 0.95; RBC Red Blood Cell Count 5.52 M/uL (4.33-5.43)
[2018-11-29 12:18] LABS: Urine Blood 1+ (NEG); Urine Glucose NEGATIVE (NEG); Urine Protein 3+ (NEG)
[2018-11-29 12:22] LABS: Albumin 3.4 g/dL (3.4-5.0); Bilirubin Direct 0.4 mg/dL (0-0.2); Magnesium 1.9 mg/dL (1.8-2.4); Potassium 3.9 mmol/L (3.5-5.1); Protein, Total 8.9 g/dL (6.4-8.2); Troponin (Emerg Dept Use Only) 0.48 ng/mL (0.0-0.045)
[2018-11-29 12:23] LABS: Barbiturates NEGATIVE (NEGATIVE); Benzodiazepines NEGATIVE (NEGATIVE); Cocaine NEGATIVE (NEGATIVE); METHAMPHETAM NEGATIVE (NEGATIVE); Methadone NEGATIVE (NEGATIVE); Opiates NEGATIVE (NEGATIVE); Phencyclidine NEGATIVE (NEGATIVE); THC Cannibis NEGATIVE (NEGATIVE)
[2018-11-29] MEDS ORDERED: MORPHINE 4 MG/ML SYR ONE ×2 (12:44→15:20)
[2018-11-29] MEDS ORDERED: ASPIRIN 81 MG CHEWABLE TABLET ONE (13:14)
--- NOTE | 2018-11-29 13:21 | RAD REPORT ---
EXAM DESCRIPTION: CT - Angio Aorta For Dissection - 11/29/2018 12:54 pm CLINICAL HISTORY: . Chest pain COMPARISON: January [address] TECHNIQUE: Computed tomography angiography of the chest, abdomen pelvis were obtained. 100 cc Isovue 370 was administered intravenously. Coronal and sagittal reconstruction were performed. MIP 3D reconstruction was performed All CT scans are performed using dose optimization technique as appropriate and may include automated exposure control or mA/KV adjustment according to patient size. FINDINGS: An aortic dissection is not seen. An aortic aneurysm is not displayed. The celiac, SMA and JAZMIN are patent . A lung consolidation is not present. A pericardial effusion is not seen. A pleural effusion is not n oted. Fatty liver The Spleen, adrenals and kidneys demonstrate no significant abnormality. Right renal cortical thinnin g may be secondary to prior inflammation Pancreatic head is inhomogeneous. Mild to moderate stranding within the adjacent fat. Pseudocyst is n ot seen The appendix is normal. There no evidence diverticulitis. No ascites is noted. Spondylosis involves lumbar spine resulting in marked spinal stenosis Right inguinal hernia contains fat. Tiny umbilical hernia. Mild enlargement of the prostate gland IMPRESSION: Negative for an aortic dissection. Sger-[id number] pancreatitis
--- NOTE | 2018-11-29 13:22 | RAD REPORT ---
EXAM DESCRIPTION: Catarina Single View11/29/2018 11:55 am CLINICAL HISTORY: Abdominal pain COMPARISON: July 2018 FINDINGS: The lungs appear clear of acute infiltrate. The heart is mildly enlarged IMPRESSION: No acute abnormalities displayed
[2018-11-29 13:39] LABS: Urine Amorphous Sediment 1+ /HPF (NONE SEEN); Urine Bacteria <20 /HPF (NONE SEEN); Urine Culture Reflex Order NOT NEEDED
[2018-11-29] MEDS ORDERED: METOPROLOL TAR 25 MG TAB ONE (13:57)
[2018-11-29] MEDS ORDERED: METOPROLOL TARTRATE 5 MG/5 ML INJ IV ONE ×2 (13:58→15:16)
[2018-11-29] MEDS: NA CHLORIDE 0.9% 1,000 ML IV SCH (14:00)
--- NOTE | 2018-11-29 14:00 | ER ---
Nurse's Notes [facility] Name: Natan Paulino Sr Age: 58 yrs Sex: Male : 1960 Arrival Date: 11/29/2018 Time: 11:18 Bed 14 Private MD: Gloria Key Diagnosis: Acute pancreatitis;Non-ST elevation (NSTEMI) myocardial infarction Presentation: 11/29 11:26 Presenting complaint: Patient states: Severe abd pain beginning this morning, pt la1 severely diaphoretic, reports hx of pancreatitis, had two glasses of whiskey last night. Transition of care: patient was not received from another setting of care. Onset of symptoms was November 29, 2018. Risk Assessment: Do you want to hurt yourself or someone else? Patient reports no desire to harm self or others. Initial Sepsis Screen: Does the patient meet any 2 criteria? No. Patient's initial sepsis screen is negative. Does the patient have a suspected source of infection? No. Patient's initial sepsis screen is negative. Care prior to arrival: None. 11:26 Method Of Arrival: Ambulatory la1 11:26 Acuity: NINO 2 la1 Historical: - Allergies: 11:28 PENICILLINS; la1 - PMHx: 11:28 CHF; Gout; Hypertension; osteoarthritis; Pancreatitis; Rheumatoid Arthritis; TIA; la1 - Immunization history:: Adult Immunizations up to date. - Social history:: Smoking status: Patient/guardian denies using tobacco. - Ebola Screening: : No symptoms or risks identified at this time. Screenin:38 Abuse screen: Denies threats or abuse. Denies injuries from another. Nutritional jl7 screening: No deficits noted. Tuberculosis screening: No symptoms or risk factors identified. Fall Risk IV access (20 points). Total Harrell Fall Scale indicates No Risk (0-24 pts). Assessment: 11:30 General: Appears distressed, uncomfortable, Behavior is cooperative, appropriate for jl7 age. Pain: Complains of pain in right upper quadrant Pain currently is 20 out of 10 on a pain scale. Quality of pain is described as "It's just pain." Pain began this morning Is continuous. Neuro: Level of Consciousness is awake, alert, obeys commands, Oriented to person, place, time, situation. Cardiovascular: Denies chest pain, shortness of breath. Respiratory: Airway is patent Respiratory effort is even, unlabored, Respiratory pattern is regular, symmetrical. GI: Bowel sounds present X 4 quads. Abdomen is tender to palpation X 4 quads. Guarding noted X 4 quads. : No signs and/or symptoms were reported regarding the genitourinary system. EENT: No signs and/or symptoms were reported regarding the EENT system. Derm: Skin is clammy, diaphoretic, Skin is normal, Skin temperature is cool. 12:38 Reassessment: Patient appears in no apparent distress at this time. Patient and/or jl7 family updated on plan of care and expected duration. Pain level reassessed. Patient is alert, oriented x 3, equal unlabored respirations, skin warm/dry/pink. Patient states feeling better. Pain: Pain currently is 8 out of 10 on a pain scale. 13:30 Reassessment: Patient appears in no apparent distress at this time. Patient and/or jl7 family updated on plan of care and expected duration. Pain level reassessed. Patient is alert, oriented x 3, equal unlabored respirations, skin warm/dry/pink. 15:00 Reassessment: Pt c/o continued abdominal pain rated 7/10, requesting additional pain jl7 medication, ERP notified of medication request and BP, see MAR for orders. 15:25 Reassessment: No change in BP, ERP notified see MAR for orders. jl7 Vital Signs: 11:28 BP 208 / 130; Pulse 91; Resp 24; Pulse Ox 98% on R/A; Weight 108.86 kg; Height 6 ft. 3 la1 in. (190.50 cm); Pain 10/10; 12:00 BP 199 / 125; Pulse 78; Resp 16 S; Pulse Ox 96% on R/A; jl7 12:38 BP 190 / 113; Pulse 73; Resp 16 S; Pulse Ox 95% on R/A; Pain 8/10; jl7 13:06 BP 201 / 120; Pulse 84; Resp 16 S; Temp 98.1(O); Pulse Ox 98% on R/A; Pain 7/10; jl7 13:46 BP 199 / 116; Pulse 75; Resp 17; Temp 98.2(O); Pulse Ox 98% on R/A; 5 14:00 BP 196 / 112; Pulse 82; Resp 16 S; Pulse Ox 100% on R/A; jl7 15:00 BP 188 / 116; Pulse 66; Resp 16 S; Pulse Ox 98% on R/A; Pain 8/10; jl7 15:25 BP 190 / 124; Pulse 81; Resp 16 S; Pulse Ox 98% on R/A; jl7 15:39 BP 176 / 96; Pulse 73; Resp 16 S; Pulse Ox 98% on R/A; jl7 11:28 Body Mass Index 30.00 (108.86 kg, 190.50 cm) la1 ED Course: 11:18 Patient arrived in ED. mr 11:18 Gloria Key is Private Physician. mr 11:24 Brandon Patel PA is PHCP. cp 11:24 Nagi Dickson MD is Attending Physician. cp 11:27 Triage completed. la1 11:28 Arm band placed on left wrist. la1 11:30 Patient has correct armband on for positive identification. Placed in gown. Bed in low jl7 position. Call light in reach. Side rails up X 1. patient monitor on. Pulse ox on. NIBP on. 11:30 Initial lab(s) drawn, by nm, sent to lab. Inserted saline lock: 22 gauge in right hand, jl7 using aseptic technique. Blood collected. Inserted saline lock: 20 gauge in left antecubital area, using aseptic technique. 11:30 EKG done, by ED staff, reviewed by Nagi Dickson MD. mh5 11:32 Hilary Garza, RN is Primary Nurse. jl7 11:55 XRAY Chest (1 view) In Process Unspecified. EDMS 12:03 Radiology exam delayed due to lab results not completed at this time. (BUN/Creatinine). bq 12:10 UDS Sent. mh5 12:10 Urine Dipstick--Ancillary (enter results) Sent. mh5 12:53 CT completed. Patient tolerated procedure well. Patient moved back from CT. mw3 12:54 CT Aorta for Dissection In Process Unspecified. EDMS 13:59 Zena Ansari MD is Hospitalizing Provider. cp 15:41 No provider procedures requiring assistance completed. Patient admitted, IV remains in jl7 place. intact, No redness/swelling at site. Administered Medications: 11:41 Drug: ProTONIX 40 mg Route: IVP; Site: right hand; la1 12:57 Follow up: Response: No adverse reaction jl7 11:41 Drug: Zofran 4 mg Route: IVP; Site: right antecubital; la1 12:00 Follow up: Response: No adverse reaction jl7 11:41 Drug: NS 0.9% 1000 ml Route: IV; Rate: 500 ml/hr; Site: right hand; la1 13:45 Follow up: Response: No adverse reaction; IV Status: Completed infusion; IV Intake: jl7 1000ml 11:41 Drug: fentaNYL (PF) 100 mcg Route: IVP; Site: right antecubital; la1 12:00 Follow up: Response: No adverse reaction; Pain is decreased jl7 12:35 Drug: morphine 4 mg Route: IVP; Site: left antecubital; jl7 13:00 Follow up: Response: No adverse reaction; Pain is decreased jl7 13:09 Drug: Aspirin Chewable Tablet 324 mg Route: PO; jl7 13:30 Follow up: Response: No adverse reaction jl7 13:09 Drug: NS 0.9% 1000 ml Route: IV; Rate: 125 ml/hr; Site: left antecubital; jl7 15:33 Follow up: IV Status: Infusion continued upon admission jl7 13:49 Drug: Metoprolol 5 mg Route: IVP; Site: left antecubital; jl7 14:15 Follow up: Response: No adverse reaction; Blood pressure is unchanged jl7 13:54 Drug: Metoprolol 25 mg Route: PO; jl7 14:50 Follow up: Response: No adverse reaction; Blood pressure is unchanged jl7 15:05 Drug: Metoprolol 5 mg Route: IVP; Site: left antecubital; jl7 15:25 Follow up: Response: No adverse reaction; Blood pressure is unchanged jl7 15:10 Drug: morphine 4 mg Route: IVP; Site: left antecubital; jl7 15:32 Follow up: Response: No adverse reaction; Pain is decreased jl7 15:30 Drug: hydrALAZINE 10 mg Route: IV; Rate: calculated rate; Site: left antecubital; jl7 15:34 Follow up: IV Status: Completed infusion jl7 Intake: 13:45 IV: 1000ml; Total: 1000ml. jl7 Outcome: 14:00 Decision to Hospitalize by Provider. cp 15:41 Admitted to [facility] accompanied by tech, via wheelchair, room 402, with chart, Report jl7 called to RADHIKA Ng 15:41 Condition: stable 15:41 Discharge instructions given to patient, Instructed on the need for admit, Demonstrated understanding of instructions. 15:42 Patient left the ED. jl7 Signatures: Dispatcher [employer] ED [facility] mr IrisLizy Lee RN RN la1 Brandon Patel PA PA cp Martinez, Maria [facility] Hilary Garza RN RN jl7 Susan Barker mw3
--- NOTE | 2018-11-29 14:00 | EDPHYS ---
Physician Documentation [facility] Name: Natan Paulino Sr Age: 58 yrs Sex: Male : 1960 Arrival Date: 11/29/2018 Time: 11:18 Bed 14 Private MD: Gloria Key ED Physician Nagi Dickson HPI: 11/29 11:40 This 58 yrs old Black Male presents to ER via Ambulatory with complaints of Abdominal cp Pain. 11:40 The patient presents with abdominal pain in the epigastric area, in the right upper cp quadrant. Onset: The symptoms/episode began/occurred this morning. Associated signs and symptoms: Pertinent positives: nausea and vomiting, vomiting blood, Pertinent negatives: blood in stools, constipation, diarrhea, fever. The symptoms are described as constant. Modifying factors: the symptoms are aggravated by pressure. Severity of pain: in the emergency department the pain is actually worse markedly. 11:41 The patient has experienced similar episodes in the past, multiple times, today's cp symptoms are similar, to previous pancreatitis. Historical: - Allergies: 11:28 PENICILLINS; la1 - PMHx: 11:28 CHF; Gout; Hypertension; osteoarthritis; Pancreatitis; Rheumatoid Arthritis; TIA; la1 - Immunization history:: Adult Immunizations up to date. - Social history:: Smoking status: Patient/guardian denies using tobacco. - Ebola Screening: : No symptoms or risks identified at this time. ROS: 11:45 Constitutional: Negative for body aches, chills, fever, poor PO intake. cp 11:45 Eyes: Negative for injury, pain, redness, and discharge. cp 11:45 ENT: Negative for drainage from ear(s), ear pain, sore throat, difficulty swallowing, difficulty handling secretions. 11:45 Cardiovascular: Negative for chest pain, edema, palpitations. 11:45 Respiratory: Negative for cough, shortness of breath, wheezing. 11:45 Abdomen/GI: Positive for abdominal pain, nausea, vomiting, hematemesis, Negative for diarrhea, constipation, black/tarry stool, rectal bleeding. 11:45 Back: Negative for pain at rest, pain with movement, radiated pain. 11:45 : Negative for urinary symptoms. 11:45 Skin: Negative for rash. 11:45 Neuro: Negative for altered mental status, headache, weakness. 11:45 All other systems are negative. Exam: 11:39 ECG was reviewed by the Attending Physician. cp 11:45 Constitutional: The patient appears alert, awake, non-toxic, well developed, well cp nourished, diaphoretic, in obvious pain, uncomfortable. 11:45 Head/Face: Normocephalic, atraumatic. cp 11:45 Eyes: Periorbital structures: appear normal, Conjunctiva: normal, no exudate, no injection, Sclera: no appreciated abnormality, Lids and lashes: appear normal, bilaterally. 11:45 ENT: External ear(s): are unremarkable, Nose: is normal, Mouth: Lips: moist, Oral mucosa: pink and intact, moist, Posterior pharynx: is normal, airway is patent, no erythema, no exudate. 11:45 Neck: ROM/movement: is normal, is supple, without pain, no range of motions limitations, no meningismus, no nuchal rigidity. 11:45 Chest/axilla: Inspection: normal, Palpation: is normal, no crepitus, no tenderness. 11:45 Cardiovascular: Rate: normal, Rhythm: regular, Edema: is not appreciated, JVD: is not appreciated. 11:45 Respiratory: the patient does not display signs of respiratory distress, Respirations: normal, no use of accessory muscles, no retractions, no splinting, no tachypnea, labored breathing, is not present, Breath sounds: are clear throughout, no decreased breath sounds, no stridor, no wheezing. 11:45 Abdomen/GI: Inspection: distension, that is mild, Bowel sounds: active, all quadrants, Palpation: soft, in all quadrants, severe abdominal tenderness, in the right upper quadrant and left upper quadrant, rebound tenderness, is not appreciated, voluntary guarding, is elicited in the right upper quadrant and left upper quadrant. 11:45 Back: CVA tenderness, is absent. 11:45 Skin: no rash present. 11:45 Neuro: Orientation: to person, place \T\ time. Mentation: is normal, Cerebellar function: is grossly normal, Motor: moves all fours, strength is normal, Sensation: is normal. Vital Signs: 11:28 BP 208 / 130; Pulse 91; Resp 24; Pulse Ox 98% on R/A; Weight 108.86 kg; Height 6 ft. 3 la1 in. (190.50 cm); Pain 10/10; 12:00 BP 199 / 125; Pulse 78; Resp 16 S; Pulse Ox 96% on R/A; jl7 12:38 BP 190 / 113; Pulse 73; Resp 16 S; Pulse Ox 95% on R/A; Pain 8/10; jl7 13:06 BP 201 / 120; Pulse 84; Resp 16 S; Temp 98.1(O); Pulse Ox 98% on R/A; Pain 7/10; jl7 13:46 BP 199 / 116; Pulse 75; Resp 17; Temp 98.2(O); Pulse Ox 98% on R/A; mh5 14:00 BP 196 / 112; Pulse 82; Resp 16 S; Pulse Ox 100% on R/A; jl7 15:00 BP 188 / 116; Pulse 66; Resp 16 S; Pulse Ox 98% on R/A; Pain 8/10; jl7 15:25 BP 190 / 124; Pulse 81; Resp 16 S; Pulse Ox 98% on R/A; jl7 15:39 BP 176 / 96; Pulse 73; Resp 16 S; Pulse Ox 98% on R/A; jl7 11:28 Body Mass Index 30.00 (108.86 kg, 190.50 cm) la1 MDM: 11:34 Patient medically screened. cp 12:00 Differential diagnosis: AAA, acute coronary syndrome, cholecystitis, Cholelithiasis, cp pancreatitis, Peptic Ulcer Disease, Perf. Duodenal Ulcer, Perf. Gastric Ulcer, Ureterolithiasis, urinary tract infection. 13:00 Data reviewed: vital signs, nurses notes, lab test result(s), EKG, radiologic studies, cp CT scan, plain films, and as a result, I will admit patient. 13:00 Test interpretation: by ED physician or midlevel provider: ECG, plain radiologic cp studies, chest xray negative for acute infiltrates. Response to treatment: the patient's symptoms have markedly improved after treatment. 13:52 Physician consultation: Zena Ansari MD was called at 13:55, was contacted at 13:55, regarding admission, to the telemetry unit. patient's condition. 11/29 11:31 Order name: Basic Metabolic Panel 11/29 11:31 Order name: CBC with Diff; Complete Time: 12:20 cp 11/29 12:20 Interpretation: Normal except: RBC 5.52; RDW 18.6. cp 11/29 11:31 Order name: LFT's; Complete Time: 12:32 cp 11/29 12:32 Interpretation: Normal except: AST 68; BILID 0.4; TP 8.9; GLOB 5.5; A/G 0.6. cp 11/29 11:31 Order name: Magnesium; Complete Time: 12:32 cp 11/29 11:31 Order name: NT PRO-BNP; Complete Time: 12:32 cp 11/29 11:31 Order name: PT-INR; Complete Time: 12:20 cp 11/29 11:31 Order name: Troponin (emerg Dept Use Only); Complete Time: 12:32 cp 11/29 12:33 Interpretation: Abnormal: TROPED 0.48. cp 11/29 11:31 Order name: ETOH Level; Complete Time: 13:25 cp 11/29 11:31 Order name: UDS; Complete Time: 12:32 cp 11/29 11:31 Order name: Lipase; Complete Time: 12:32 cp 11/29 12:32 Interpretation: Abnormal: LIP 3324. cp 11/29 11:32 Order name: Basic Metabolic Panel; Complete Time: 12:32 EDMS 11/29 12:33 Interpretation: Normal except: CL 114; CO2 20; BUN 19; CRE 1.39; GFR 63. cp 11/29 11:32 Order name: Lactate; Complete Time: 12:20 cp 11/29 12:09 Order name: Urine Dipstick--Ancillary (enter results); Complete Time: 12:20 eb 11/29 12:10 Order name: Urine Microscopic Only; Complete Time: 13:50 mh5 11/29 11:31 Order name: XRAY Chest (1 view); Complete Time: 13:25 cp 11/29 11:31 Order name: EKG; Complete Time: 11:32 cp 11/29 11:47 Order name: CT Aorta for Dissection; Complete Time: 13:25 cp 11/29 13:25 Interpretation: Report reviewed. cp 11/29 13:53 Order name: NPO EDMS 11/29 11:31 Order name: Cardiac monitoring; Complete Time: 13:00 cp 11/29 11:31 Order name: EKG - Nurse/Tech; Complete Time: 12:52 cp 11/29 11:31 Order name: IV Saline Lock; Complete Time: 13:00 cp 11/29 11:31 Order name: Labs collected and sent; Complete Time: 13:00 cp 11/29 11:31 Order name: O2 Per Protocol; Complete Time: 13:00 cp 11/29 11:31 Order name: O2 Sat Monitoring; Complete Time: 13:00 cp 11/29 11:31 Order name: IV; Complete Time: 11:42 cp EC:39 Rate is 88 beats/min. Rhythm is regular. NC interval is normal. QRS interval is cp prolonged at 132 msec. QT interval is normal. T waves are Inverted in lead aVL. Interpreted by me. Reviewed by me. Administered Medications: 11:41 Drug: ProTONIX 40 mg Route: IVP; Site: right hand; la1 12:57 Follow up: Response: No adverse reaction jl7 11:41 Drug: Zofran 4 mg Route: IVP; Site: right antecubital; la1 12:00 Follow up: Response: No adverse reaction jl7 11:41 Drug: NS 0.9% 1000 ml Route: IV; Rate: 500 ml/hr; Site: right hand; la1 13:45 Follow up: Response: No adverse reaction; IV Status: Completed infusion; IV Intake: jl7 1000ml 11:41 Drug: fentaNYL (PF) 100 mcg Route: IVP; Site: right antecubital; la1 12:00 Follow up: Response: No adverse reaction; Pain is decreased jl7 12:35 Drug: morphine 4 mg Route: IVP; Site: left antecubital; jl7 13:00 Follow up: Response: No adverse reaction; Pain is decreased jl7 13:09 Drug: Aspirin Chewable Tablet 324 mg Route: PO; jl7 13:30 Follow up: Response: No adverse reaction jl7 13:09 Drug: NS 0.9% 1000 ml Route: IV; Rate: 125 ml/hr; Site: left antecubital; jl7 15:33 Follow up: IV Status: Infusion continued upon admission jl7 13:49 Drug: Metoprolol 5 mg Route: IVP; Site: left antecubital; jl7 14:15 Follow up: Response: No adverse reaction; Blood pressure is unchanged jl7 13:54 Drug: Metoprolol 25 mg Route: PO; jl7 14:50 Follow up: Response: No adverse reaction; Blood pressure is unchanged jl7 15:05 Drug: Metoprolol 5 mg Route: IVP; Site: left antecubital; jl7 15:25 Follow up: Response: No adverse reaction; Blood pressure is unchanged jl7 15:10 Drug: morphine 4 mg Route: IVP; Site: left antecubital; jl7 15:32 Follow up: Response: No adverse reaction; Pain is decreased jl7 15:30 Drug: hydrALAZINE 10 mg Route: IV; Rate: calculated rate; Site: left antecubital; jl7 15:34 Follow up: IV Status: Completed infusion jl7 Disposition: 11/29/18 14:00 Hospitalization ordered by Zena Ansari for Inpatient Admission. Preliminary diagnosis are Acute pancreatitis, Non-ST elevation (NSTEMI) myocardial infarction. - Bed requested for Telemetry/MedSurg (Inpatient). - Status is Inpatient Admission. jl7 - Condition is Stable. - Problem is new. - Symptoms have improved. UTI on Admission? No Addendum: 12/01/2018 08:03 Co-signature as Attending Physician, Nagi Dickosn MD Available for consultation at p s1 all times. . Signatures: Dispatcher [employer] EDKamilah Fields RN RN dw Denver Brown RN RN la1 Brandon Patel PA PA cp Leal, Jahala, RN RN jl7 Nagi Dickson MD MD ps1 Corrections: (The following items were deleted from the chart) 11/29 14:58 14:00 Hospitalization Ordered by Zena Ansari MD for Inpatient Admission. Preliminary dw diagnosis is Acute pancreatitis; Non-ST elevation (NSTEMI) myocardial infarction. Bed requested for Telemetry/MedSurg (Inpatient). Status is Inpatient Admission. Condition is Stable. Problem is new. Symptoms have improved. UTI on Admission? No. cp 15:42 14:58 11/29/2018 14:00 Hospitalization Ordered by Zena Ansari MD for Inpatient jl7 Admission. Preliminary diagnosis is Acute pancreatitis; Non-ST elevation (NSTEMI) myocardial infarction. Bed requested for Telemetry/MedSurg (Inpatient). Status is Inpatient Admission. Condition is Stable. Problem is new. Symptoms have improved. UTI on Admission? No. dw
--- NOTE | 2018-11-29 14:20 | P.HP ---
Certification for Inpatient Patient admitted to: Observation With expected LOS: <2 Midnights Patient will require the following post-hospital care: None Practitioner: I am a practitioner with admitting privileges, knowledge of patient current condition, hospital course, and medical plan of care. Services: Services provided to patient in accordance with Admission requirements found in Title 42 Section 412.3 of the Code of Federal Regulations Patient History Date of Service: 11/29/18 Reason for admission: Abdominal pain History of Present Illness: 58-year-old male with significant past medical history of alcohol abuse and chronic pancreatitis who presented to the ED complaining of having abdominal pain nausea vomiting. Stated that he had a 2 Glass of Whiskey last night after which he started having abdominal pain and thus decided to come to the ER. Has been admitted to the hospital with previous episodes of abdominal pain and acute pancreatitis. Has been noncompliant with medication and has been drinking alcohol despite education from the primary care provider. In the ER patient was found to have elevated lipase along with abdominal CT which was concerning for [id number] pancreatitis and thus was admitted to the hospital for acute pancreatitis. Allergies Penicillins Allergy (Verified 11/29/18 16:28) Hives/Rash Home Medications: Lisinopril [Prinivil*] 20 mg PO DAILY #30 tab 08/20/18 Metoprolol Tartrate [Lopressor*] 50 mg PO BID 6AM 6PM #60 tab 08/20/18 Allopurinol 1 tab PO DAILY 11/29/18 Meloxicam [Mobic] 15 mg PO BIDP PRN 11/29/18 - Past Medical/Surgical History Diabetic: No -: hypertension -: irregular heart beat -: PANCREATITIS -: TIA -: CHF - Family History Father -: Hypertension, Lung disease, Cancer, Liver disease Notes: asbestos. exposure Mother Notes: mom is healthy - Social History Alcohol use: Yes CD- Drugs: No Caffeine use: Yes Review of Systems 10-point ROS is otherwise unremarkable Physical Examination - Physical Exam General: Alert, In no apparent distress HEENT: Atraumatic, PERRLA, Mucous membr. moist/pink, EOMI, Sclerae nonicteric Neck: Supple, 2+ carotid pulse no bruit, No LAD, Without JVD or thyroid abnormality Respiratory: Clear to auscultation bilaterally, Normal air movement Cardiovascular: Regular rate/rhythm, Normal S1 S2 Gastrointestinal: Normal bowel sounds, Tenderness (Worse on the left lower quadrant) Musculoskeletal: No tenderness Integumentary: No rashes Neurological: Normal gait, Normal speech, Normal strength at 5/5 x4 extr, Normal tone, Normal affect Lymphatics: No axilla or inguinal lymphadenopathy - Studies Laboratory Data (last 24 hrs) 11/29/18 11:38: PT 11.2, INR 0.95 11/29/18 11:38: WBC 8.9, Hgb 16.2, Hct 47.4, Plt Count 288 11/29/18 11:38: Sodium 144, Potassium 3.9, BUN 19 H, Creatinine 1.39 H, Glucose 97, Magnesium 1.9, Total Bilirubin 1.0, AST 68 H, ALT 43, Alkaline Phosphatase 92, Lipase 3324 H Assessment and Plan - Problems (Diagnosis) (1) Alcoholic pancreatitis Onset Date: 05/08/17 Current Visit: No Status: Acute Plan: Acute alcoholic pancreatitis -lipase elevated over 3000. Abdominal CT consistent with small to moderate pancreatitis. Physical exam with tenderness to left lower quadrant. -Patient nausea and vomiting -IV fluids (NS, Banana Bag), NPO, pain medication at this time. -monitor closely Qualifiers: Chronicity: acute Acute pancreatitis complication: no infection or necrosis Qualified Code(s): K85.20 - Alcohol induced acute pancreatitis without necrosis or infection (2) HTN (hypertension) Onset Date: 11/01/16 Current Visit: No Status: Chronic Plan: Will restart home medication Qualifiers: Hypertension type: essential hypertension Qualified Code(s): I10 - Essential (primary) hypertension - Plan Admit patient to the medical-surgical unit for acute pancreatitis. IV fluids NPO and pain management at this time. Educated extensively on alcohol abstinence. Discharge Plan: Home Plan to discharge in: 48 Hours - Advance Directives Does patient have a Living Will: No Does patient have a Durable POA for Healthcare: No - Code Status/Comfort Care Code Status Assessed: Yes Critical Care: No
[2018-11-29] MEDS ORDERED: LORazepam 2 MG/ML VIAL IV PRN ×2 (15:28→18:04)
[2018-11-29] MEDS ORDERED: HYDRALAZINE HCL 20 MG/ML VIAL ONE (15:39)
[2018-11-29] MEDS ORDERED: ONDANSETRON 4 MG/2 ML VIAL IV PRN (15:52)
[2018-11-29 16:00] VITALS: O2SAT 98
[2018-11-29 16:18] VITALS: BMI 29.9
[2018-11-29] MEDS: HYDRALAZINE HCL 20 MG/ML VIAL IV PRN (16:25)
[2018-11-29] MEDS: MORPHINE 2 MG/ML SYR IV PRN ×2 (16:25→22:29)
[2018-11-29] MEDS: METOPROLOL TAR 50 MG TAB PO SCH (17:27)
[2018-11-29] MEDS: THIAMINE HCL 100 MG TABLET PO SCH (21:26)
[2018-11-29] MEDS: FOLIC ACID 1 MG, MULTIVITAMINS INJ 10 ML in NA CHLORIDE 0.9% 1,000 ML IV SCH (21:29)
[2018-11-30] MEDS: MORPHINE 2 MG/ML SYR IV PRN ×2 (04:39→10:10)
[2018-11-30] MEDS: METOPROLOL TAR 50 MG TAB PO SCH ×2 (05:09→17:27)
[2018-11-30 05:59] LABS: Absolute Lymphocytes (CBC) 0.9 K/uL (0.7-4.9); Absolute Monocytes 0.8 K/uL (0.1-1.3); Absolute Neutrophil 5.2 K/uL (1.8-8.0); Basophils % 0.4 % (0-1.3); Eosinophils % 5.1 % (0-4.4); Hematocrit 42.9 % (39.6-49.0); Lymphocytes % 12.1 % (15.3-44.8); MPV 8.7 fL (7.6-11.3); Monocytes % 10.4 % (3.3-12.3); RBC Red Blood Cell Count 4.93 M/uL (4.33-5.43)
[2018-11-30 06:11] LABS: Bilirubin Total 1.4 mg/dL (0.2-1.0); Protein, Total 7.4 g/dL (6.4-8.2)
[2018-11-30] MEDS: NA CHLORIDE 0.9% 1,000 ML IV SCH ×6 (08:10→22:00)
[2018-11-30] MEDS: HYDRALAZINE HCL 20 MG/ML VIAL IV PRN ×3 (08:13→18:45)
[2018-11-30] MEDS: THIAMINE HCL 100 MG TABLET PO SCH (10:08)
[2018-11-30] MEDS: LISINOPRIL 20 MG TAB PO SCH (10:12)
[2018-11-30] MEDS ORDERED: DOCUSATE NA 100 MG CAP PO ONE (10:48)
--- NOTE | 2018-11-30 11:00 | P.SSS ---
Patient History Date of Service: 11/30/18 Reason for admission: Abdominal pain History of Present Illness: 58-year-old male with significant past medical history of alcohol abuse and chronic pancreatitis who presented to the ED complaining of having abdominal pain nausea vomiting. Stated that he had a 2 Glass of Whiskey last night after which he started having abdominal pain and thus decided to come to the ER. Has been admitted to the hospital with previous episodes of abdominal pain and acute pancreatitis. Has been noncompliant with medication and has been drinking alcohol despite education from the primary care provider. In the ER patient was found to have elevated lipase along with abdominal CT which was concerning for [id number] pancreatitis and thus was admitted to the hospital for acute pancreatitis. Allergies Penicillins Allergy (Verified 11/29/18 16:28) Hives/Rash Home Medications: Lisinopril [Prinivil*] 20 mg PO DAILY #30 tab 08/20/18 Metoprolol Tartrate [Lopressor*] 50 mg PO BID 6AM 6PM #60 tab 08/20/18 Allopurinol 1 tab PO DAILY 11/29/18 Meloxicam [Mobic] 15 mg PO BIDP PRN 11/29/18 - Past Medical/Surgical History Has patient received pneumonia vaccine in the past: No Diabetic: No -: hypertension -: irregular heart beat -: PANCREATITIS -: TIA -: CHF -: Gout - Family History Father -: Hypertension, Lung disease, Cancer, Liver disease Notes: asbestos. exposure Mother Notes: mom is healthy - Social History Smoking Status: Never smoker Alcohol use: Yes CD- Drugs: No Caffeine use: Yes Place of Residence: Home Review of Systems 10-point ROS is otherwise unremarkable Physical Examination - Vital Signs Temperature: 97.7 F Blood Pressure: 167/87 Pulse: 75 Respirations: 20 Pulse Ox (%): 98 - Physical Exam General: Alert, In no apparent distress HEENT: Atraumatic, PERRLA, Mucous membr. moist/pink, EOMI, Sclerae nonicteric Neck: Supple, 2+ carotid pulse no bruit, No LAD, Without JVD or thyroid abnormality Respiratory: Clear to auscultation bilaterally, Normal air movement Cardiovascular: Regular rate/rhythm, Normal S1 S2 Gastrointestinal: Normal bowel sounds, No tenderness Musculoskeletal: No tenderness Integumentary: No rashes Neurological: Normal gait, Normal speech, Normal strength at 5/5 x4 extr, Normal tone, Normal affect Lymphatics: No axilla or inguinal lymphadenopathy - Studies Laboratory Data (last 24 hrs) 11/30/18 05:34: Phosphorus 3.0 11/30/18 05:34: Sodium 146 H, Potassium 4.0, BUN 19 H, Creatinine 1.43 H, Glucose 87, Total Bilirubin 1.4 H, AST 49 H, ALT 33, Alkaline Phosphatase 73 11/30/18 05:34: WBC 7.3 D, Hgb 14.2, Hct 42.9, Plt Count 229 D 11/29/18 11:38: PT 11.2, INR 0.95 11/29/18 11:38: WBC 8.9, Hgb 16.2, Hct 47.4, Plt Count 288 11/29/18 11:38: Sodium 144, Potassium 3.9, BUN 19 H, Creatinine 1.39 H, Glucose 97, Magnesium 1.9, Total Bilirubin 1.0, AST 68 H, ALT 43, Alkaline Phosphatase 92, Lipase 3324 H - Diagnosis (Problem(s)) (1) Alcoholic pancreatitis Onset Date: 05/08/17 Current Visit: No Status: Acute Qualifiers: Chronicity: acute Acute pancreatitis complication: no infection or necrosis Qualified Code(s): K85.20 - Alcohol induced acute pancreatitis without necrosis or infection (2) HTN (hypertension) Onset Date: 11/01/16 Current Visit: No Status: Chronic Qualifiers: Hypertension type: essential hypertension Qualified Code(s): I10 - Essential (primary) hypertension Treatment Summary: Overall during the hospital stay patient remained stable Patient was initially admitted to the hospital for acute pancreatitis most likely secondary to alcohol. Patient had marked improvement in 24 hr after starting IV fluids and pain management here in the hospital. Patient then was advanced to a clear liquid diet which she tolerated well without having any nausea vomiting. Patient then was advanced to a GI soft which she tolerated well and thus he was discharged home under stable condition was asked to follow up with GI physician outpatient. Patient was also asked to not use alcohol when he goes home as it might exacerbate his pancreatitis even more. Patient demonstrated an and thus was discharged home under stable condition. - Disposition Disposition: ROUTINE DISCHARGE Condition: GOOD Diet: Regular Activity: Ad pelon
[2018-11-30] MEDS: TRAMADOL HCL 50 MG TAB PO PRN ×2 (11:42→18:45)
[2018-11-30] MEDS ORDERED: HYDROCODONE/APAP 5/325 MG TAB PO ONE (14:17)
[2018-11-30] MEDS ORDERED: cloNIDine HCl 0.1 MG TAB PO ONE (15:58)
[2018-11-30] MEDS: FOLIC ACID 1 MG, MULTIVITAMINS INJ 10 ML in NA CHLORIDE 0.9% 1,000 ML IV SCH (18:45)
[2018-11-30] MEDS ORDERED: BISACODYL E.C. 5 MG TAB PO ONE (20:44)
[2018-11-30] MEDS ORDERED: FENTANYL CITR 100 MCG/2 ML IV ONE (22:42)
[2018-12-01] MEDS: HYDRALAZINE HCL 20 MG/ML VIAL IV PRN (01:09)
[2018-12-01] MEDS: METOPROLOL TAR 50 MG TAB PO SCH (05:41)
--- NOTE | 2018-12-01 05:57 | EKG ---
Test Date: 2018-11-29 Test Time: 11:27:21 Radiophone Operator: SERGIO MEASUREMENT RESULTS: Intervals: Rate: 88 WV: 162 QRSD: 132 QT: 394 QTc: 476 [place]: P: 65 WV: 162 QRS: -49 T: 98 INTERPRETIVE STATEMENTS: Sinus rhythm Possible Left atrial enlargement Intraventricular conduction delay Abnormal ECG Compared to ECG 05/07/2017 19:37:40 Sinus bradycardia no longer present Left ventricular hypertrophy no longer present Electronically Signed On 12-01-18 05:57:19 CDT by Vern Naranjo
[2018-12-01 06:12] LABS: Absolute Monocytes 0.9 K/uL (0.1-1.3); Absolute Neutrophil 5.9 K/uL (1.8-8.0); Basophils % 0.3 % (0-1.3); Eosinophils % 2.4 % (0-4.4); Hematocrit 43.7 % (39.6-49.0); Lymphocytes % 12.2 % (15.3-44.8); MPV 8.9 fL (7.6-11.3); Monocytes % 11.2 % (3.3-12.3)
[2018-12-01 06:31] LABS: Bilirubin Total 1.2 mg/dL (0.2-1.0); Potassium 3.9 mmol/L (3.5-5.1); Protein, Total 7.6 g/dL (6.4-8.2)
[2018-12-01] MEDS ORDERED: NACHLORIDE 0.45% 1,000 ML IV SCH (08:00)
[2018-12-01] MEDS ORDERED: POTASSIUM CL SA 10 MEQ TAB PO ONE (09:00)
[2018-12-01] MEDS: LISINOPRIL 20 MG TAB PO SCH (09:18)
[2018-12-01] MEDS: THIAMINE HCL 100 MG TABLET PO SCH (09:18)
[2018-12-01 12:31] VITALS: BP 183/110; TEMP 97.9
--- NOTE | 2018-12-01 14:08 | P.DS ---
Admission Date: 11/30/18 Discharge Date: 12/01/18 Primary Care Provider: Kristal Duran NP Disposition: ROUTINE DISCHARGE Discharge Condition: GOOD Reason for Admission: Abdominal pain Consultations: GI-Dr. Mckenna Procedures: CT scan: FINDINGS: An aortic dissection is not seen. An aortic aneurysm is not displayed. The celiac, SMA and JAZMIN are patent . A lung consolidation is not present. A pericardial effusion is not seen. A pleural effusion is not noted. Fatty liver The Spleen, adrenals and kidneys demonstrate no significant abnormality. Right renal cortical thinning may be secondary to prior inflammation Pancreatic head is inhomogeneous. Mild to moderate stranding within the adjacent fat. Pseudocyst is not seen The appendix is normal. There no evidence diverticulitis. No ascites is noted. Spondylosis involves lumbar spine resulting in marked spinal stenosis Right inguinal hernia contains fat. Tiny umbilical hernia. Mild enlargement of the prostate gland IMPRESSION: Negative for an aortic dissection. [id number] pancreatitis Medical Problem list: Acute recurrent alcoholic pancreatitis with underlying fatty liver Alcohol abuse Hypertension, uncontrolled GERD Gout Chronic pain likely related to Spinal stenosis of the upper spine Suspect BPH Brief History of Present Illness: 58-year-old male presented to emergency room with abdominal pain. Patient found to have recurrent alcoholic pancreatitis. Patient admitted for treatment. Hospital Course: Patient presented with abdominal pain. Patient found to have acute recurrent alcoholic pancreatitis. Patient was monitored and given IV fluids. Symptoms have resolved. Pancreatitis resolved. At discharge he is able tolerate a diet. No significant nausea or vomiting noted. At discharge, patient plans to quit alcohol entirely. Patient given risks of continued alcohol abuse. Patient understands. Patient to continue with alcohol cessation. At discharge he will continue with folic acid 1 mg daily and thiamine 100 mg daily. Recommend to follow up with GI as an outpatient to further monitor and address. Patient with hypertension. Medications were adjusted during his stay. Compliance addressed in detail. At discharge he will continue with Metoprolol 100 mg 1 pill twice daily and lisinopril 20 mg 1 pill twice daily. Recommend to monitor blood pressures daily. Recommend to maintain blood pressure is 150/ 80. Further adjustment may be required. This can be further addressed by his PCP. Patient likely with underlying GERD. At discharge he will continue with Protonix 40 mg daily. Recommend to follow up with GI as an outpatient to further evaluate. Patient may require EGD in the future to further address. Recommend no further use of nonsteroidal anti-inflammatories including Mobic, ibuprofen, or other OTC medication. Patient with spinal stenosis of the upper spine. Patient appears to have chronic pain. Patient will be provided tramadol 50 mg 1 pill twice daily as needed for pain. Recommend no further use of nonsteroidal anti anti- inflammatories due to his hypertension. Meloxicam has been discontinued. Chronic pain can be further addressed by his PCP or may benefit with chronic pain management referral. Patient with chronic gout. Patient will continue with allopurinol daily. Recommend a follow up with his PCP to further monitor and address. Patient may have underlying BPH as CT scan revealed enlarged prostate. Recommend for his PCP to check PSA as an outpatient. Patient would benefit with urology evaluation as an outpatient to further address. Vital Signs/Physical Exam: Temp Pulse Resp BP Pulse Ox 97.9 F 85 18 183/110 H 99 12/01/18 12:00 12/01/18 12:00 12/01/18 12:00 12/01/18 12:00 12/01/18 12:00 General: Alert, In no apparent distress, Oriented x3, Cooperative HEENT: Atraumatic Neck: Supple Respiratory: Clear to auscultation bilaterally, Normal air movement Cardiovascular: Normal pulses, Regular rate/rhythm Gastrointestinal: Normal bowel sounds, Soft and benign, Non-distended, No tenderness, No masses, No rebound, No guarding Musculoskeletal: No erythema, No tenderness, No warmth Integumentary: No tenderness/swelling, No erythema, No warmth, No cyanosis Neurological: Normal speech, Normal strength at 5/5 x4 extr, Normal tone, Normal affect Laboratory Data at Discharge: WBC 8.0 K/uL (4.3-10.9) 12/01/18 05:48 Hgb 14.4 g/dL (13.6-17.9) 12/01/18 05:48 Hct 43.7 % (39.6-49.0) 12/01/18 05:48 Plt Count 214 K/uL (152-406) 12/01/18 05:48 PT 11.2 SECONDS (9.5-12.5) 11/29/18 11:38 INR 0.95 11/29/18 11:38 Sodium 146 mmol/L (136-145) H 12/01/18 05:48 Potassium 3.9 mmol/L (3.5-5.1) 12/01/18 05:48 BUN 14 mg/dL (7-18) 12/01/18 05:48 Creatinine 1.32 mg/dL (0.55-1.3) H 12/01/18 05:48 Glucose 110 mg/dL (74-106) H 12/01/18 05:48 Phosphorus 3.0 mg/dL (2.5-4.9) 11/30/18 05:34 Magnesium 1.9 mg/dL (1.8-2.4) 11/29/18 11:38 Total Bilirubin 1.2 mg/dL (0.2-1.0) H 12/01/18 05:48 AST 38 U/L (15-37) H 12/01/18 05:48 ALT 29 U/L (12-78) 12/01/18 05:48 Alkaline Phosphatase 70 U/L (45-117) 12/01/18 05:48 Lipase 3324 U/L (73-393) H 11/29/18 11:38 Home Medications: Allopurinol 1 tab PO DAILY 11/29/18 Folic Acid 1 mg PO DAILY #30 tablet 12/01/18 Lisinopril [Prinivil*] 20 mg PO BID #60 tab 12/01/18 Metoprolol Tartrate [Lopressor*] 100 mg PO BID 6AM 6PM #120 tab 12/01/18 Pantoprazole [Protonix Tab] 40 mg PO DAILY #30 tab 12/01/18 Thiamine HCl [Vitamin B-1*] 100 mg PO DAILY #30 tablet 12/01/18 Tramadol HCl [Ultram] 50 mg PO BID PRN #15 tablet 12/01/18 New Medications: Folic Acid 1 mg PO DAILY #30 tablet Lisinopril [Prinivil*] 20 mg PO BID #60 tab Metoprolol Tartrate [Lopressor*] 100 mg PO BID 6AM 6PM #120 tab Pantoprazole [Protonix Tab] 40 mg PO DAILY #30 tab Thiamine HCl [Vitamin B-1*] 100 mg PO DAILY #30 tablet Tramadol HCl [Ultram] 50 mg PO BID PRN #15 tablet PRN Reason: Pain Scale 2-4 (Mild) Patient Discharge Instructions: 1. Patient will follow up with his PCP in 1 week to follow up this hospitalization. 2. Patient presented with acute recurrent alcoholic pancreatitis. Patient was monitored and given IV fluids. Symptoms have resolved. Pancreatitis resolved. At discharge he is able tolerate a diet. No significant nausea or vomiting noted. At discharge, patient plans to quit alcohol entirely. Patient to continue with alcohol cessation. At discharge he will continue with folic acid 1 mg daily and thiamine 100 mg daily. Recommend to follow up with GI as an outpatient to further monitor and address. 3. Patient with hypertension. Medications were adjusted during his stay. Compliance addressed in detail. At discharge he will continue with blah 100 mg 1 pill twice daily and lisinopril 20 mg 1 pill twice daily. Recommend to monitor blood pressures daily. Recommend to maintain blood pressure is 150/80. Further adjustment may be required. This can be further addressed by his PCP. 4. Patient likely with underlying GERD. At discharge he will continue with Protonix 40 mg daily. Recommend to follow up with GI as an outpatient to further evaluate. Patient may require EGD in the future to further address. Recommend no further use of nonsteroidal anti- inflammatories including Mobic, ibuprofen, or other OTC medication. 5. Patient will be provided tramadol 50 mg 1 pill twice daily as needed for pain. Recommend no further use of nonsteroidal anti anti-inflammatories. Meloxicam has been discontinued. Chronic pain can be further addressed by his PCP. 6. Patient with chronic gout. Patient will continue with allopurinol daily. Recommend a follow up with his PCP to further monitor and address. Diet: Regular Activity: Ad pelon Followup: Franc Mckenna MD [ASSOCIATE-ACTIVE - CAN ADMIT] - CONCHITA DURAN [Primary Care Provider] - Time spent managing pt's care (in minutes): 55
[2018-12-01] MEDS ORDERED: METOPROLOL TAR 50 MG TAB PO SCH (18:00)
[2018-12-02] MEDS ORDERED: LISINOPRIL 20 MG TAB PO SCH (09:00)
== END 2018-12-01 11:45 | disposition home or self-care (01) | DRG 440 ==
LOC: ER 11:15 → ERHOLD 13:52 → 4TH 15:23 → OBSVTOIN 11-30 08:33
PROVIDERS: ADMIT Family Medicine; ATTEND Family Medicine
DX: K85.20 Alcohol induced acute pancreatitis without necrosis or infection (principal); K70.0 Alcoholic fatty liver; F10.10 Alcohol abuse, uncomplicated; I10 Essential (primary) hypertension; K21.9 Gastro-esophageal reflux disease without esophagitis; M10.9 Gout, unspecified; M48.00 Spinal stenosis, site unspecified; N40.0 Benign prostatic hyperplasia without lower urinary tract symptoms; Z88.0 Allergy status to penicillin; Z86.73 Personal history of transient ischemic attack (TIA), and cerebral infarction without residual deficits
CPT/HCPCS: 36415; 71045; 71275; 74175; 80048; 80053; 80076; 80307; 80320; 81003; 81015; 83605; 83690; 83735; 83880; 84100; 84484; 85025; 85610; 93005; 99285; C9113; G0378; J0360; J1170; J2270; J2405; J3010; J7030; Q9967

== ENCOUNTER 2019-04-24 15:32 | Inpatient (IN) | payer OTHER, SELFPAY ==
[2019-04-24] MEDS ORDERED: NA CHLORIDE 0.9% 1,000 ML ONE ×2 (16:03→21:05)
[2019-04-24] MEDS ORDERED: ONDANSETRON 4 MG/2 ML VIAL ONE (16:03)
[2019-04-24] MEDS ORDERED: MORPHINE 4 MG/ML SYR ONE (16:03)
[2019-04-24] MEDS ORDERED: HYDROMORPHONE HCL 0.5 MG/0.5 ML INJ ONE ×2 (16:07→17:28)
[2019-04-24] MEDS ORDERED: PANTOPRAZOLE 40 MG INJ ONE (16:17)
[2019-04-24 16:28] LABS: Absolute Lymphocytes (CBC) 1.9 K/uL (0.7-4.9); Albumin 3.4 g/dL (3.4-5.0); Basophils % 0.3 % (0-1.3); Bilirubin Direct 1.8 mg/dL (0-0.2); Bilirubin Total 3.3 mg/dL (0.2-1.0); Hematocrit 50.5 % (39.6-49.0); Lymphocytes % 27.1 % (15.3-44.8); MPV 9.9 fL (7.6-11.3); Potassium 4.1 mmol/L (3.5-5.1); Protein, Total 9.1 g/dL (6.4-8.2); RBC Red Blood Cell Count 5.93 M/uL (4.33-5.43)
--- NOTE | 2019-04-24 17:00 | ER ---
Nurse's Notes [facility] Name: Natan Paulino Sr Age: 58 yrs Sex: Male : 1960 Arrival Date: 04/24/2019 Time: 15:35 Bed Ultrasound Private MD: Gloria Key Diagnosis: Acute pancreatitis;Non-ST elevation (NSTEMI) myocardial infarction;Acute kidney failure Presentation: 04/24 15:38 Presenting complaint: Patient states: Generalized abdominal pain and vomiting that aj1 started today. Reports that he has a history of pancreatitis and this feels similar to his previous episodes. Transition of care: patient was not received from another setting of care. Onset of symptoms was April 24, 2019 at 13:00. Risk Assessment: Do you want to hurt yourself or someone else? Patient reports no desire to harm self or others. Initial Sepsis Screen: Does the patient meet any 2 criteria? HR > 90 bpm. No. Patient's initial sepsis screen is negative. Does the patient have a suspected source of infection? Yes: Acute abdominal pain. Care prior to arrival: None. 15:38 Method Of Arrival: Ambulatory [facility] 15:38 Acuity: NINO 3 aj1 15:52 Acuity: NINO 2 aj1 Triage Assessment: 15:41 General: Appears in no apparent distress. uncomfortable, Behavior is calm, cooperative, aj1 appropriate for age. Pain: Complains of pain in abdomen diffusely Pain currently is 9 out of 10 on a pain scale. Neuro: Level of Consciousness is awake, alert, obeys commands. Cardiovascular: Patient's skin is warm and dry. Respiratory: Airway is patent Respiratory effort is even, unlabored, Respiratory pattern is regular, symmetrical. Historical: - Allergies: 15:41 PENICILLINS; aj1 - Home Meds: 15:50 carvedilol Oral [Active]; Lasix 20 mg Oral tab 1 tab once daily [Active]; lisinopril 10 tw2 mg Oral tab 1 tab once daily [Active]; meloxicam Oral [Active]; Methocarbamol Oral [Active]; metoprolol tartrate 25 mg Oral tab 1 tab 2 times per day [Active]; - PMHx: 15:41 CHF; Gout; Hypertension; osteoarthritis; Pancreatitis; Rheumatoid Arthritis; TIA; aj1 - Immunization history:: Flu vaccine is up to date. - Social history:: Smoking status: Patient/guardian denies using tobacco. - Ebola Screening: : Patient denies travel to an Ebola-affected area in the 21 days before illness onset. Screenin:49 Abuse screen: Denies threats or abuse. Nutritional screening: No deficits noted. tw2 Tuberculosis screening: No symptoms or risk factors identified. Fall Risk Secondary diagnosis (15 points) impaired mobility. Assessment: 15:50 Reassessment: While cleaning a room for pt, patient became diaphoretic, skin is clammy. aj1 Patient states that his pain is unchanged. Primary nurse RADHIKA Livingston at bedside. 15:51 Derm: Skin is diaphoretic. tw2 15:51 General: Appears uncomfortable, Behavior is cooperative. Pain: Complains of pain in tw2 abdomen diffusely. Neuro: Level of Consciousness is awake, alert, obeys commands, Oriented to person, place, time, situation. Cardiovascular: Heart tones S1 S2 Capillary refill < 3 seconds. Respiratory: Airway is patent Respiratory effort is even, unlabored, Respiratory pattern is regular, symmetrical, Breath sounds are clear bilaterally. GI: Abdomen is round Bowel sounds present X 4 quads. Abdomen is tender to palpation X 4 quads. : No signs and/or symptoms were reported regarding the genitourinary system. EENT: No signs and/or symptoms were reported regarding the EENT system. Derm: Skin is diaphoretic, Skin temperature is cool. Musculoskeletal: Range of motion: intact in all extremities. 16:50 Reassessment: Patient appears in no apparent distress at this time. Patient and/or tw2 family updated on plan of care and expected duration. Pain level reassessed. Patient is alert, oriented x 3, equal unlabored respirations, skin warm/dry/pink. Patient states feeling better. 17:36 Reassessment: Patient and/or family updated on plan of care and expected duration. Pain tw2 level reassessed. Patient is alert, oriented x 3, equal unlabored respirations, skin warm/dry/pink. "the pain is back", provider notified and medicated Patient states symptoms have not improved. 18:30 Reassessment: Patient appears in no apparent distress at this time. Patient and/or tw2 family updated on plan of care and expected duration. Pain level reassessed. Patient is alert, oriented x 3, equal unlabored respirations, skin warm/dry/pink. 19:10 Reassessment: Patient appears in no apparent distress at this time. Patient and/or cc3 family updated on plan of care and expected duration. Pain level reassessed. Patient is alert, oriented x 3, equal unlabored respirations, skin warm/dry/pink. Received this male patient from morning shift RN Yara as a case of pancreatitis for admission awaiting admission orders. With IV cannula gauge 22 at the right ACV saline locked. Patient denies pain at this time. General: Appears in no apparent distress. comfortable, Behavior is calm, cooperative, appropriate for age. Pain: Denies pain. Neuro: Level of Consciousness is awake, alert, obeys commands, Oriented to person, place, time, situation, Appropriate for age. Cardiovascular: Denies chest pain, Heart tones S1 S2 present Capillary refill < 3 seconds Patient's skin is warm and dry. Respiratory: Airway is patent Respiratory effort is even, unlabored, Respiratory pattern is regular, symmetrical. GI: Abdomen is round non-distended. : No signs and/or symptoms were reported regarding the genitourinary system. EENT: No signs and/or symptoms were reported regarding the EENT system. Derm: Skin is intact, is healthy with good turgor, Skin is pink, warm \\T\\ dry. normal. Musculoskeletal: Circulation, motion, and sensation intact. Range of motion: intact in all extremities. 19:42 Reassessment: Patient taken by scheme technician by wheelchair to MRI department. cc3 20:10 Reassessment: Patient appears in no apparent distress at this time. Patient and/or cc3 family updated on plan of care and expected duration. Pain level reassessed. Patient is alert, oriented x 3, equal unlabored respirations, skin warm/dry/pink. Patient came back from MRI department, room available in ICU bed 3, report called and handed over to RADHIKA Delacruz for continuity of care and management. 20:30 Reassessment: Charge nurse Emily said not to send the patient yet to ICU because they cc3 will send RADHIKA Delacruz here in ER. 21:00 Reassessment: Patient appears in no apparent distress at this time. Patient and/or cc3 family updated on plan of care and expected duration. Pain level reassessed. Patient is alert, oriented x 3, equal unlabored respirations, skin warm/dry/pink. Dr. Hayes and Dr. Green came in to the patient's room. 22:00 Reassessment: Patient appears in no apparent distress at this time. Patient and/or cc3 family updated on plan of care and expected duration. Pain level reassessed. Patient is alert, oriented x 3, equal unlabored respirations, skin warm/dry/pink. RN Nubia shifted the patient to ICU bed 3 for admission by stretcher on continuous cardiac monitoring. No valuables left in the patient's room. Patient denies pain at this time. Patient states feeling better. Vital Signs: 15:41 BP 168 / 110; Pulse 96; Resp 20; Temp 97.0; Pulse Ox 98% on R/A; Weight 95.25 kg (R); aj1 Height 6 ft. 3 in. (190.50 cm) (R); Pain 9/10; 16:45 BP 168 / 119; Pulse 86; Resp 17; Pulse Ox 97% on R/A; tw2 17:35 BP 178 / 126; Pulse 95; Resp 17; Pulse Ox 99% on R/A; Pain 9/10; tw2 17:46 BP 176 / 115; Pulse 86; Resp 17; Pulse Ox 99% on R/A; tw2 18:30 BP 164 / 102; Pulse 83; Resp 17; Pulse Ox 97% on R/A; tw2 19:24 BP 151 / 116; Pulse 94; Resp 16; Temp 97.3(TE); Pulse Ox 100% on R/A; cc3 20:18 BP 163 / 104; Pulse 91; Resp 17 S; Pulse Ox 97% on R/A; cc3 21:30 BP 171 / 110; Pulse 96; Resp 19 S; Pulse Ox 96% on R/A; cc3 15:41 Body Mass Index 26.25 (95.25 kg, 190.50 cm) aj1 17:46 provider notified of BP and floor will not accept elevated bp in this range. tw2 ED Course: 15:35 Patient arrived in ED. ag5 15:37 Gloria Key is Private Physician. ag5 15:40 Triage completed. aj1 15:41 Arm band placed on Patient placed in an exam room. aj1 15:44 Bed in low position. Call light in reach. Side rails up X 1. Adult w/ patient. Cardiac tw2 monitor on. Pulse ox on. NIBP on. Warm blanket given. 15:49 Yara Barahona RN is Primary Nurse. tw2 15:59 [facility]. cp 15:59 Brandon Masterson MD is Attending Physician. cp 16:07 Inserted saline lock: 22 gauge in right antecubital area, using aseptic technique. tw2 Blood collected. Missed attempt(s): 22 gauge in right antecubital area. Bleeding controlled, band aid applied, catheter tip intact. 16:10 Radiology exam delayed due to lab results not completed at this time. (BUN/Creatinine) vm2 IV insertion attempt and/or patient not having appropriate IV at this time. 16:30 Radiology exam delayed due to lab results not completed at this time. (BUN/Creatinine). vm2 16:30 X-ray completed. Portable x-ray completed in exam room. Patient tolerated procedure jr1 well. 16:32 XRAY Chest (1 view) In Process Unspecified. EDMS 16:41 EKG done, by robotic weld technician. reviewed by Brandon DURHAM. sm3 16:51 CT Abd/Pelvis - Without Contrast In Process Unspecified. EDMS 16:54 CT completed. Patient tolerated procedure well. Patient moved to CT via stretcher. eh Patient moved back from CT. 16:59 Cori Alba MD is Hospitalizing Provider. cp 17:17 US Abdomen Limited: RUQ/epigastric In Process Unspecified. EDMS 17:35 UDS Sent. tw2 19:00 Report given to RADHIKA Solis - pending icu assisgnment, bp still elevated. tw2 22:00 No provider procedures requiring assistance completed. Patient admitted, IV remains in cc3 place. Administered Medications: 16:07 Drug: Zofran 4 mg Route: IVP; Site: right antecubital; tw2 16:52 Follow up: Response: No adverse reaction tw2 16:08 Drug: Dilaudid 0.5 mg Route: IVP; Site: right antecubital; tw2 16:51 Follow up: Response: No adverse reaction; Pain is decreased; RASS: Alert and Calm (0) tw2 16:13 CANCELLED (Duplicate Order): Zofran 4 mg IVP once; over 2 minutes tw2 16:13 CANCELLED (Duplicate Order): Dilaudid 0.5 mg IM once; RASS on ADMIN: Combtv4, Very tw2 Agttd3, Agttd2, Rstlss1, AlertClm0, Drwsy-1, Lt Sdtn-2, Mod Sdtn-3, Dp Sdtn-4, UnArsble-5 16:13 CANCELLED (Duplicate Order): Dilaudid 0.5 mg IM once; RASS on ADMIN: Combtv4, Very tw2 Agttd3, Agttd2, Rstlss1, AlertClm0, Drwsy-1, Lt Sdtn-2, Mod Sdtn-3, Dp Sdtn-4, UnArsble-5 16:21 Drug: ProTONIX 40 mg Route: IVP; Site: right antecubital; tw2 16:52 Follow up: Response: No adverse reaction tw2 17:00 Drug: NS 0.9% 1000 ml Route: IV; Rate: 1000 ml/hr; Site: right antecubital; tw2 19:09 Follow up: Response: No adverse reaction; IV Status: Completed infusion; IV Intake: tw2 1000ml 17:27 Drug: Aspirin Chewable Tablet 324 mg Route: PO; tw2 17:34 Follow up: Response: No adverse reaction tw2 17:30 Drug: Dilaudid 0.5 mg Route: IVP; Site: right antecubital; tw2 18:30 Follow up: Response: No adverse reaction; Pain is decreased; RASS: Alert and Calm (0) tw2 17:52 Drug: hydrALAZINE 10 mg Route: IV; Rate: 1 bolus; Site: right antecubital; tw2 17:53 Follow up: IV Status: Completed infusion tw2 17:59 Drug: Lovenox 1 mg/kg Route: Sub-Q; Site: right lower abdomen; tw2 19:09 Follow up: Response: No adverse reaction tw2 20:45 Drug: NS 0.9% 1000 ml {Note: Dr. Green ordered a rate of 125 mL/hr.} Route: IV; Rate: cc3 125 ml/hr; Site: right antecubital; 21:00 Follow up: Response: No adverse reaction; IV Status: Infusion continued upon admission cc3 21:00 Drug: Dilaudid 1 mg Route: IM; Site: right gluteus; cc3 21:30 Follow up: Response: No adverse reaction; Pain is decreased; RASS: Alert and Calm (0) cc3 Intake: 19:09 IV: 1000ml; Total: 1000ml. tw2 Outcome: 17:00 Decision to Hospitalize by Provider. cp 22:00 Admitted to ICU accompanied by nurse, via stretcher, room ICU Bed 3, on monitor, with cc3 chart, Report called to RN Nubia was the one who brought the patient for admission herself 22:00 Condition: stable 22:00 Instructed on the need for admit, Demonstrated understanding of instructions. 22:07 Patient left the ED. cc3 Signatures: Dispatcher [employer] EDMS Odalis Carlisle RN RN aj1 Leo Morales Jennifer jr1 Brandon Patel PA PA cp Wise, Tara RN RN tw2 Asha Resendez 2 Humaira Miranda 3 Irma Tello cc3 Benjamin Gonzalez 5 Corrections: (The following items were deleted from the chart) 15:50 15:41 Home Meds: None; aj1 tw2
--- NOTE | 2019-04-24 17:01 | EDPHYS ---
Physician Documentation [facility] Name: Natan Paulino Sr Age: 58 yrs Sex: Male : 1960 Arrival Date: 04/24/2019 Time: 15:35 Bed Ultrasound Private MD: Gloria Key ED Physician Brandon Masterson HPI: 04/24 15:55 This 58 yrs old Black Male presents to ER via Ambulatory with complaints of cp Pancreatitis. 15:55 The patient presents with abdominal pain in the upper abdomen. Onset: The cp symptoms/episode began/occurred 3 day(s) ago, and became worse today. The symptoms do not radiate. Associated signs and symptoms: Pertinent positives: nausea and vomiting, Pertinent negatives: blood in stools, chest pain, constipation, diarrhea, fever. The symptoms are described as constant. The patient has experienced similar episodes in the past, a few times, today's symptoms are similar, to when the patient was apparently diagnosed with pancreatitis. Patient admits to drinking alcohol 3 days ago and pancreatitis in the past was caused by drinking alcohol. Historical: - Allergies: 15:41 PENICILLINS; aj1 - Home Meds: 15:50 carvedilol Oral [Active]; Lasix 20 mg Oral tab 1 tab once daily [Active]; lisinopril 10 tw2 mg Oral tab 1 tab once daily [Active]; meloxicam Oral [Active]; Methocarbamol Oral [Active]; metoprolol tartrate 25 mg Oral tab 1 tab 2 times per day [Active]; - PMHx: 15:41 CHF; Gout; Hypertension; osteoarthritis; Pancreatitis; Rheumatoid Arthritis; TIA; aj1 - Immunization history:: Flu vaccine is up to date. - Social history:: Smoking status: Patient/guardian denies using tobacco. - Ebola Screening: : Patient denies travel to an Ebola-affected area in the 21 days before illness onset. ROS: 16:05 Constitutional: Positive for poor PO intake, Negative for body aches, chills, fever. cp 16:05 Eyes: Negative for injury, pain, redness, and discharge. cp 16:05 ENT: Negative for drainage from ear(s), ear pain, sore throat, difficulty swallowing, difficulty handling secretions. 16:05 Cardiovascular: Negative for chest pain, edema, palpitations. 16:05 Respiratory: Negative for cough, shortness of breath, wheezing. 16:05 Abdomen/GI: Positive for abdominal pain, nausea and vomiting, anorexia, Negative for diarrhea, constipation, black/tarry stool, rectal bleeding. 16:05 : Negative for urinary symptoms. 16:05 Skin: Negative for rash. 16:05 Neuro: Negative for altered mental status, headache, weakness. 16:05 All other systems are negative. Exam: 16:10 Constitutional: The patient appears alert, awake, non-toxic, well developed, well cp nourished, diaphoretic, in obvious pain, uncomfortable. 16:10 Head/Face: Normocephalic, atraumatic. cp 16:10 Eyes: Periorbital structures: appear normal, Conjunctiva: normal, no exudate, no injection, Sclera: no appreciated abnormality, Lids and lashes: appear normal, bilaterally. 16:10 ENT: External ear(s): are unremarkable, Ear canal(s): are normal, clear, TM's: dullness, bilaterally, Nose: is normal, Mouth: Lips: moist, Oral mucosa: pink and intact, moist, Posterior pharynx: is normal, airway is patent, no erythema, no exudate. 16:10 Chest/axilla: Inspection: normal, Palpation: is normal, no crepitus, no tenderness. 16:10 Cardiovascular: Rate: normal, Rhythm: regular, Pulses: Pulses are 2+ in right radial artery and left radial artery. Edema: is not appreciated, JVD: is not appreciated. 16:10 Respiratory: the patient does not display signs of respiratory distress, Respirations: labored breathing, that is mild, shallow respirations, that is mild, Breath sounds: are clear throughout, no decreased breath sounds, no stridor, no wheezing. 16:10 Abdomen/GI: Inspection: distension, that is moderate, Bowel sounds: active, all quadrants, Palpation: soft, in the abdomen diffusely, severe abdominal tenderness, in the right upper quadrant and left upper quadrant, rebound tenderness, is not appreciated, voluntary guarding. 16:10 Skin: no rash present. 16:10 Neuro: Orientation: to person, place \T\ time. Mentation: is normal, Cerebellar function: is grossly normal, Motor: moves all fours, strength is normal, Sensation: is normal. 16:30 ECG was reviewed by the Attending Physician. Vital Signs: 15:41 BP 168 / 110; Pulse 96; Resp 20; Temp 97.0; Pulse Ox 98% on R/A; Weight 95.25 kg (R); aj1 Height 6 ft. 3 in. (190.50 cm) (R); Pain 9/10; 16:45 BP 168 / 119; Pulse 86; Resp 17; Pulse Ox 97% on R/A; tw2 17:35 BP 178 / 126; Pulse 95; Resp 17; Pulse Ox 99% on R/A; Pain 9/10; tw2 17:46 BP 176 / 115; Pulse 86; Resp 17; Pulse Ox 99% on R/A; tw2 18:30 BP 164 / 102; Pulse 83; Resp 17; Pulse Ox 97% on R/A; tw2 19:24 BP 151 / 116; Pulse 94; Resp 16; Temp 97.3(TE); Pulse Ox 100% on R/A; cc3 20:18 BP 163 / 104; Pulse 91; Resp 17 S; Pulse Ox 97% on R/A; cc3 21:30 BP 171 / 110; Pulse 96; Resp 19 S; Pulse Ox 96% on R/A; cc3 15:41 Body Mass Index 26.25 (95.25 kg, 190.50 cm) aj1 17:46 provider notified of BP and floor will not accept elevated bp in this range. tw2 MDM: 16:04 Patient medically screened. 17:10 Physician consultation: Cori Alba MD was called at 17:10, regarding admission, to the ICU, would like consultation with Dr. Naranjo, would like further tests performed, MRI. 17:20 Data reviewed: vital signs, nurses notes, lab test result(s), EKG, radiologic studies, cp CT scan, plain films. 17:20 Test interpretation: by ED physician or midlevel provider: ECG, plain radiologic cp studies. 17:53 Physician consultation: Vern Naranjo MD was contacted at 17:53, regarding consult, patient's condition, would like admission per Dr. Cori Alba MD. 04/24 15:51 Order name: Basic Metabolic Panel; Complete Time: 16:36 tw2 04/24 16:38 Interpretation: Normal except: GLUC 123; CRE 2.16; GFR 38. cp 04/24 15:51 Order name: CBC with Diff; Complete Time: 16:39 tw2 04/24 16:40 Interpretation: Normal except: RBC 5.93; HCT 50.5; RDW 16.0. cp 04/24 15:51 Order name: Creatinine for Radiology; Complete Time: 16:36 tw2 04/24 15:51 Order name: Hepatic Function; Complete Time: 16:36 tw2 04/24 15:51 Order name: Lipase; Complete Time: 16:36 tw2 04/24 16:09 Order name: PT-INR; Complete Time: 17:16 cp 04/24 16:09 Order name: Ptt, Activated; Complete Time: 17:16 cp 04/24 16:09 Order name: Lactic Dehydrogenase; Complete Time: 17:16 cp 04/24 16:09 Order name: Troponin I; Complete Time: 17:16 cp 04/24 17:16 Interpretation: Abnormal: TROP 1.31. cp 04/24 16:09 Order name: Magnesium; Complete Time: 17:16 cp 04/24 16:09 Order name: BNP; Complete Time: 17:16 cp 04/24 16:40 Order name: UDS; Complete Time: 18:30 cp 04/24 16:40 Order name: Urine Microscopic Only; Complete Time: 18:29 cp 04/24 18:30 Interpretation: Normal except: UBACT 20-50. cp 04/24 17:58 Order name: Urine Dipstick--Ancillary (enter results); Complete Time: 18:29 bd 04/24 16:09 Order name: XRAY Chest (1 view); Complete Time: 18:39 04/24 16:37 Order name: CT Abd/Pelvis - Without Contrast; Complete Time: 17:17 cp 04/24 16:39 Order name: US Abdomen Limited: RUQ/epigastric; Complete Time: 18:30 cp 04/24 18:27 Order name: Urine Culture EDIA 04/24 20:29 Order name: MRI; Complete Time: 20:30 EDIA 04/24 15:51 Order name: IV Saline Lock; Complete Time: 17:43 tw2 04/24 15:51 Order name: Labs collected and sent; Complete Time: 17:43 tw2 04/24 16:09 Order name: EKG; Complete Time: 16:10 04/24 16:09 Order name: EKG - Nurse/Tech; Complete Time: 16:21 cp 09/06 16:40 Order name: Urine Dipstick-Ancillary (obtain specimen); Complete Time: 17:35 cp EC:30 Rate is 86 beats/min. Rhythm is regular. CT interval is normal. QRS interval is cp prolonged at 144 msec. QT interval is normal. T waves are Inverted in lead aVL. Interpreted by me. Reviewed by me. Administered Medications: 16:07 Drug: Zofran 4 mg Route: IVP; Site: right antecubital; tw2 16:52 Follow up: Response: No adverse reaction tw2 16:08 Drug: Dilaudid 0.5 mg Route: IVP; Site: right antecubital; tw2 16:51 Follow up: Response: No adverse reaction; Pain is decreased; RASS: Alert and Calm (0) tw2 16:13 CANCELLED (Duplicate Order): Zofran 4 mg IVP once; over 2 minutes tw2 16:13 CANCELLED (Duplicate Order): Dilaudid 0.5 mg IM once; RASS on ADMIN: Combtv4, Very tw2 Agttd3, Agttd2, Rstlss1, AlertClm0, Drwsy-1, Lt Sdtn-2, Mod Sdtn-3, Dp Sdtn-4, UnArsble-5 16:13 CANCELLED (Duplicate Order): Dilaudid 0.5 mg IM once; RASS on ADMIN: Combtv4, Very tw2 Agttd3, Agttd2, Rstlss1, AlertClm0, Drwsy-1, Lt Sdtn-2, Mod Sdtn-3, Dp Sdtn-4, UnArsble-5 16:21 Drug: ProTONIX 40 mg Route: IVP; Site: right antecubital; tw2 16:52 Follow up: Response: No adverse reaction tw2 17:00 Drug: NS 0.9% 1000 ml Route: IV; Rate: 1000 ml/hr; Site: right antecubital; tw2 19:09 Follow up: Response: No adverse reaction; IV Status: Completed infusion; IV Intake: tw2 1000ml 17:27 Drug: Aspirin Chewable Tablet 324 mg Route: PO; tw2 17:34 Follow up: Response: No adverse reaction tw2 17:30 Drug: Dilaudid 0.5 mg Route: IVP; Site: right antecubital; tw2 18:30 Follow up: Response: No adverse reaction; Pain is decreased; RASS: Alert and Calm (0) tw2 17:52 Drug: hydrALAZINE 10 mg Route: IV; Rate: 1 bolus; Site: right antecubital; tw2 17:53 Follow up: IV Status: Completed infusion tw2 17:59 Drug: Lovenox 1 mg/kg Route: Sub-Q; Site: right lower abdomen; tw2 19:09 Follow up: Response: No adverse reaction tw2 20:45 Drug: NS 0.9% 1000 ml {Note: Dr. Green ordered a rate of 125 mL/hr.} Route: IV; Rate: cc3 125 ml/hr; Site: right antecubital; 21:00 Follow up: Response: No adverse reaction; IV Status: Infusion continued upon admission cc3 21:00 Drug: Dilaudid 1 mg Route: IM; Site: right gluteus; cc3 21:30 Follow up: Response: No adverse reaction; Pain is decreased; RASS: Alert and Calm (0) cc3 Disposition: 04/24/19 17:00 Hospitalization ordered by Cori Alba for Inpatient Admission. Preliminary diagnosis are Acute pancreatitis, Non-ST elevation (NSTEMI) myocardial infarction, Acute kidney failure. - Bed requested for Intensive Care Unit. - Status is Inpatient Admission. cc3 - Condition is Stable. - Problem is new. - Symptoms have improved. UTI on Admission? No Addendum: 04/26/2019 08:10 Co-signature as Attending Physician, Brandon Masterson MD I agree with the assessment and c lira plan of care. Signatures: Dispatcher [employer] Odalis Estevez RN RN aj1 Brandon Masterson MD MD cha Page, Corey, PA PA Sujatha León, RADHIKA RN Yara Barahona RN RN tw2 Irma Tello cc3 Corrections: (The following items were deleted from the chart) 04/24 15:50 15:41 Home Meds: None; aj1 tw2 16:13 16:09 Zofran 4 mg IVP once; over 2 minutes ordered. cp tw2 16:13 16:09 Dilaudid 0.5 mg IM once; RASS on ADMIN: Combtv4, Very Agttd3, Agttd2, Rstlss1, tw2 AlertClm0, Drwsy-1, Lt Sdtn-2, Mod Sdtn-3, Dp Sdtn-4, UnArsble-5 ordered. cp 16:13 16:09 Dilaudid 0.5 mg IM once; RASS on ADMIN: Combtv4, Very Agttd3, Agttd2, Rstlss1, tw2 AlertClm0, Drwsy-1, Lt Sdtn-2, Mod Sdtn-3, Dp Sdtn-4, UnArsble-5 ordered. cp 16:46 16:09 Abdomen Pelvis W Con+CT.RAD.BRZ ordered. EDMS EDMS 17:50 17:00 Hospitalization Ordered by Cori Alba MD for Inpatient Admission. Preliminary cp diagnosis is Acute pancreatitis. Bed requested for Telemetry/MedSurg (Inpatient). Status is Inpatient Admission. Condition is Stable. Problem is new. Symptoms have improved. UTI on Admission? No. cp 18:31 17:50 04/24/2019 17:00 Hospitalization Ordered by Cori Alba MD for Inpatient cp Admission. Preliminary diagnosis is Acute pancreatitis; Non-ST elevation (NSTEMI) myocardial infarction. Bed requested for Intensive Care Unit. Status is Inpatient Admission. Condition is Stable. Problem is new. Symptoms have improved. UTI on Admission? No. cp 19:45 18:31 04/24/2019 17:00 Hospitalization Ordered by Cori Alba MD for Inpatient cg Admission. Preliminary diagnosis is Acute pancreatitis; Non-ST elevation (NSTEMI) myocardial infarction; Acute kidney failure. Bed requested for Intensive Care Unit. Status is Inpatient Admission. Condition is Stable. Problem is new. Symptoms have improved. UTI on Admission? No. cp 22:07 19:45 04/24/2019 17:00 Hospitalization Ordered by Cori Alba MD for Inpatient cc3 Admission. Preliminary diagnosis is Acute pancreatitis; Non-ST elevation (NSTEMI) myocardial infarction; Acute kidney failure. Bed requested for Intensive Care Unit. Status is Inpatient Admission. Condition is Stable. Problem is new. Symptoms have improved. UTI on Admission? No. cg
[2019-04-24 17:04] LABS: Magnesium 1.8 mg/dL (1.8-2.4)
[2019-04-24 17:08] LABS: Troponin I 1.31 ng/mL (0.0-0.045)
--- NOTE | 2019-04-24 17:08 | RAD REPORT ---
EXAM DESCRIPTION: CT - Abdomen Pelvis Wo Contrast - 04/24/2019 4:50 pm CLINICAL HISTORY: Abdominal pain COMPARISON: November 2018 TECHNIQUE: Computed axial tomography of the abdomen and pelvis was obtained. IV and oral contrast we re not requested. All CT scans are performed using dose optimization technique as appropriate and may include automated exposure control or mA/KV adjustment according to patient size. FINDINGS: The evaluation of solid organs, vessels and bowel is limited secondary to the lack of con trast administration. Fatty liver 15 millimeter nonspecific low-density area spleen. Pancreas is inhomogeneous. Moderate stranding within the adjacent fat. No pseudocyst. The adrenals and kidneys appear grossly normal The appendix is normal. There is no evidence of diverticulitis. Spondylosis lumbar spine resulting spinal stenosis Small periumbilical hernia. Small inguinal hernias containing fat IMPRESSION: Moderate pancreatitis
[2019-04-24] MEDS ORDERED: ASPIRIN 81 MG CHEWABLE TABLET ONE (17:24)
[2019-04-24] MEDS ORDERED: HYDRALAZINE HCL 20 MG/ML VIAL ONE (17:50)
[2019-04-24] MEDS ORDERED: ENOXAPARIN 100 MG/ML SYR SQ ONE (17:57)
[2019-04-24 18:05] LABS: Barbiturates NEGATIVE (NEGATIVE); Benzodiazepines NEGATIVE (NEGATIVE); Cocaine NEGATIVE (NEGATIVE); METHAMPHETAM NEGATIVE (NEGATIVE); Methadone NEGATIVE (NEGATIVE); Opiates NEGATIVE (NEGATIVE); Phencyclidine NEGATIVE (NEGATIVE); THC Cannibis NEGATIVE (NEGATIVE)
[2019-04-24 18:16] LABS: Urine Blood 2+ (NEG); Urine Glucose NEGATIVE (NEG); Urine Protein 3+ (NEG); Urine pH 5.5 (5.0-7.0)
--- NOTE | 2019-04-24 18:17 | RAD REPORT ---
EXAM DESCRIPTION: US - Abdomen Exam Limited - 04/24/2019 5:16 pm CLINICAL HISTORY: Abdominal pain. COMPARISON: 2017 FINDINGS: The gallbladder wall is mildly thickened. A gallstone is not seen. The biliary tree is normal caliber. IMPRESSION: Mild thickening of the wall the gallbladder may be related to pancreatitis or acalculous cholecystitis
--- NOTE | 2019-04-24 18:18 | RAD REPORT ---
EXAM DESCRIPTION: Catarina Single View04/24/2019 4:30 pm CLINICAL HISTORY: abd pain COMPARISON: November 2018 FINDINGS: The lungs appear clear of acute infiltrate. The heart is mildly to moderately enlarged IMPRESSION: No acute abnormalities displayed
[2019-04-24 18:21] LABS: Urine Bacteria 20-50 /HPF (NONE SEEN); Urine Coarse Granular Casts 0-5 /LPF (NONE SEEN); Urine Culture Reflex Order REFLEXED; Urine RBC <5 /HPF (NONE SEEN); Urine Sperm PRESENT (NONE SEEN)
--- NOTE | 2019-04-24 20:24 | RAD REPORT ---
EXAM DESCRIPTION: MRICholangiogram04/24/2019 8:03 pm CLINICAL HISTORY: Abdominal pain COMPARISON: April 23, 2019 ultrasound TECHNIQUE: Magnetic resonance cholangiogram was performed. Mip reconstruction performed FINDINGS: A filling defect within the gallbladder is not seen. Gallbladder wall is mildly thickened. The biliary tree is normal caliber without a filling defect. Main pancreatic duct is normal caliber. Mild prominence of pancreatic side duct branches IMPRESSION: Gallbladder wall is mildly thickened which may be secondary to pancreatitis. Probably le ss likely acalculus cholecystitis Biliary tree is normal caliber without a filling defect Mild prominence of the pancreatic side duct branches may be related to chronic pancreatitis
[2019-04-24] MEDS ORDERED: HYDROMORPHONE HCL 1 MG/ML INJ ONE (21:05)
[2019-04-24] MEDS ORDERED: LORazepam 2 MG/ML VIAL IV PRN (22:19)
[2019-04-24] MEDS ORDERED: NITROGLYCERIN 0.4 MG/TAB SL PRN (22:19)
[2019-04-24] MEDS: NA CHLORIDE 0.9% 1,000 ML IV SCH (22:19)
[2019-04-24] MEDS ORDERED: METOPROLOL TARTRATE 5 MG/5 ML INJ IV PRN (22:19)
[2019-04-24] MEDS ORDERED: MORPHINE 4 MG/ML SYR IV PRN (22:19)
[2019-04-24] MEDS ORDERED: SODIUM CHLORIDE 0.9% 10ML INJ IV PRN (22:19)
[2019-04-24] MEDS ORDERED: MORPHINE 2 MG/ML SYR ONE (22:26)
[2019-04-24] MEDS: HYDRALAZINE HCL 20 MG/ML VIAL IV PRN (23:56)
[2019-04-25] MEDS ORDERED: MORPHINE 2 MG/ML SYR ONE (01:38)
[2019-04-25] MEDS ORDERED: MORPHINE 2 MG/ML SYR IV ONE ×2 (01:40→12:38)
[2019-04-25] MEDS ORDERED: ONDANSETRON 4 MG/2 ML VIAL ONE (04:40)
[2019-04-25] MEDS ORDERED: ONDANSETRON 4 MG/2 ML VIAL IV PRN (04:42)
--- NOTE | 2019-04-25 05:03 | HP ---
Date of Admission: 04/24/2019 Chief Complaint: Abdominal pain. 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 Patient states that he had some alcohol. His pain is epigastric, nonradiating, moderate, and progressive. He also reports some nausea and vomiting and low appetite. Patient denies any ches t pain. In the ER, his workup revealed a lipase of 9000. Liver enzymes are elevated, 804 and 363. Total bilirubin was also elevated. His kidney function was double his last and troponin was elevated at 1.31. Patient's CT scan showed moderate pancreatitis. Ultrasound showed normal biliary tree [place] iber, mild thickening of the wall of the gallbladder, may be related to pancreatitis or acalculous ch olecystitis. Patient referred for admission. Past Medical History: Recurrent alcoholic pancreatitis, hypertension, history of TIA and CHF, histor y of irregular heartbeat. Surgical History: None. Allergies: PENICILLIN CAUSES HIVES AND RASH. Medication List: Reviewed. Social History: Patient is a former smoker. Drinks alcohol occasionally. No illicit drug use. Family History: Father had hypertension, lung disease, cancer, liver disease, and asbestosis. Yumi nunez is healthy. Review of Systems: 10-point system reviewed, negative except as per HPI. Physical Examination: Vital Signs: Blood pressure 168/110, pulse 96, respirations 20, temperature 97, O2 98% on room air. General: Awake, alert, oriented x3, in some moderate distress due to pain. HEENT: Normocephalic, atraumatic. PERRLA. EOMI. Dry mucous membranes. Oropharynx is clear. Poor dentition. Conjunctivae anicteric. Neck: Supple. No JVD. Trachea midline. CV: S1, S2. Regular rate and rhythm. Peripheral pulses present. Respiratory: Moving air well bilaterally. No wheezing or stridor. Gastrointestinal: Abdomen is distended. Tenderness to palpation in the epigastric region. No rebou nd or guarding. Hypoactive bowel sounds. Extremities: No clubbing, cyanosis, or edema. No calf tenderness. Neuro: Cranial nerves 2 through 12 intact grossly. No focal neurological deficit. Speech is normal . Skin: No rashes. Normal skin turgor. Laboratory Data: Sodium 139, potassium 4.1, chloride 102, CO2 25, BUN 17, creatinine 2.16, glucose 1 23, calcium 9.8, magnesium 1.8. AST 804, ALT 363, total bilirubin 3.3, direct bilirubin 1.8. LDH is 568. Troponin 1.31. BNP 8900. Albumin 3.4. Lipase 9287. INR 1. WBC 6.9, H and H 17 and 50.5, p latelets 154. UA; negative nitrite, negative leukocyte esterase, 20-50 bacteria. UDS is negative. Imaging Studies: Abdominal ultrasound shows mild thickening of the wall of the gallbladder, may be r elated to pancreatitis or acalculous cholecystitis. Biliary tree is normal caliber. Abdominal ultra sound shows moderate pancreatitis, fatty liver, 15 mm low specific density area of spleen. Chest x-r ay personally reviewed, shows no acute abnormalities. Assessment: A 58-year-old male with: 1.Acute alcoholic pancreatitis. We will continue with IV fluids, n.p.o. status, and pain medication s. 2.Elevated liver enzymes and hyperbilirubinemia. Ultrasound does not show any biliary tree abnormal ities. MRCP is pending. No GI available. We will continue to monitor. 3.Wio-ZW-[id number] myocardial infarction. We will start on Lovenox. Dr. Naranjo has been consulted. 4.Acute on chronic kidney injury. Creatinine is doubled from his previous. We will monitor, avoid NSAIDs, and start on IV fluids. 5.Chronic diastolic heart failure. Monitor I's and O's. Fluid restriction. 6.Essential hypertension, not well controlled. We will use hydralazine p.r.n. 7.History of transient ischemic attack. 8.Alcohol abuse. Counseled. 9.Deep venous thrombosis prophylaxis with Lovenox. Plan: Admit patient to ICU, place as inpatient. Guarded prognosis. Length of stay greater than 2 m idnights. /TERRELL Voice ID: [id number]
[2019-04-25] MEDS: MORPHINE 2 MG/ML SYR IV PRN ×4 (05:15→22:21)
[2019-04-25] MEDS: NA CHLORIDE 0.9% 1,000 ML IV SCH ×2 (05:21→14:19)
[2019-04-25 05:42] LABS: Absolute Lymphocytes (CBC) 1.6 K/uL (0.7-4.9); Basophils % 0.4 % (0-1.3); Hematocrit 45.4 % (39.6-49.0); Lymphocytes % 30.9 % (15.3-44.8); RBC Red Blood Cell Count 5.22 M/uL (4.33-5.43)
[2019-04-25 06:05] LABS: Albumin 2.8 g/dL (3.4-5.0); Bilirubin Total 2.2 mg/dL (0.2-1.0); Magnesium 1.5 mg/dL (1.8-2.4); Potassium 3.7 mmol/L (3.5-5.1); Protein, Total 7.4 g/dL (6.4-8.2)
[2019-04-25] MEDS ORDERED: Magnesium Sulfate 2gm IVPB 2 G/50 ML BAG IV ONE (06:39)
--- NOTE | 2019-04-25 07:47 | EKG ---
Test Date: 2019-04-24 Test Time: 16:22:28 Vp Outcomes: ANISA MEASUREMENT RESULTS: Intervals: Rate: 86 AR: 148 QRSD: 144 QT: 428 QTc: 512 [place]: P: 73 AR: 148 QRS: -47 T: 94 INTERPRETIVE STATEMENTS: Sinus rhythm with premature atrial complexes Possible Left atrial enlargement Intraventricular conduction delay Abnormal ECG Compared to ECG 11/29/2018 11:27:21 Atrial premature complex(es) now present Electronically Signed On 04-25-19 07:47:06 CDT by Vern Naranjo
[2019-04-25] MEDS: ENOXAPARIN 100 MG/ML SYR SQ SCH (08:25)
[2019-04-25] MEDS: ASPIRIN EC 81 MG TAB PO SCH ×2 (08:26→10:01)
[2019-04-25] MEDS ORDERED: PANTOPRAZOLE 40 MG INJ IVP SCH (09:00)
[2019-04-25] MEDS ORDERED: THIAMINE 200 MG/2 ML INJ IVP SCH (09:00)
--- NOTE | 2019-04-25 09:42 | CON ---
History Of Present Illness: Mr. Paulino is 58. He came to the hospital with abdominal pain. He has be en found to have pancreatitis. It seems to be his third episode at least of severe pancreatitis. Hi s pain is gone now. He was never having chest pain. Troponins were drawn, they are abnormal, they a re trending downwards. Mr. Paulino's pancreatitis has always been caused by alcohol. This episode of p ancreatitis is no exception. He admits to drinking a pint of gin over a rapid period of time. I thi nk he means that daily, several days in a row. He knows he is not supposed to. He is a severe alcoh olic, and has never really addressed his problem in a serious way. In any event he has very elevated SGOT, SGPT, and troponins have gone as high as 1.31, the most recent one is 1.01. Mr. Paulino has neve r had myocardial infarction or stroke or diabetes. He has a history of poor compliance, substance ab use, alcohol abuse disorder, and multiple episodes of pancreatitis. 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 If he is, we do not know about them. The emergency room notes says he is admitted for a non-ST elevation ME, I think that is probably inaccurate. I would be surprised if his coronary arteries are not absolutely normal. At this point he has not had an echocardiogram. Electrocardiog yanet are abnormal, but unchanged from older electrocardiograms. He has an intraventricular conductio n delay that is suggestive of an alcoholic cardiomyopathy, left atrial abnormality. He has hypertens ion according to our measurements here. He had a stress test in 2017 that showed his ejection fracti on was 40%. No evidence of stress-induced ischemia. We have 2 echocardiograms from 2017 as well, on e of them shows his EF is in the 50% range, another 1 shows his ejection fraction is 35%, so I think what we are seeing is a gentleman when he is not drinking has a fairly normal looking heart on echo a nd when he is drinking heavily, he gets depressed ejection fraction, but this is probably alcohol ind uced myocarditis. If he stays away from alcohol, in the past his ejection fraction has improved, I w ould expect it to do so again and I suspect this is because of his elevated troponin. 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 Denies diabetes. No history of coronary stents or other kind of interventions on his heart . Physical Examination: Measurements: 6 feet, 3 inches, 227 pounds. HEENT: Mild periorbital edema. Otherwise HEENT normal. Lungs: Clear. Heart: Regular rate and rhythm. There seems to be an S4 gallop. No significant murmur. Abdomen: Soft. Extremities: Trace edema. Distal pulses easily palpable. Impression: The patient probably has elevated troponin from alcohol induced cardiac injury, myocardi al injury. I think on Saturday if we do a nuclear stress test again and repeat an echo, we will probab ly be able to confirm that and not need to go further with a cardiac cath. RAHEL/TERRELL Voice ID: [id number] Report ID: [id number]
--- NOTE | 2019-04-25 09:45 | P.PN ---
Subjective Date of Service: 04/25/19 Subjective: Improving (Pain much improved, now almost completely resolved, patient ambulated) Physical Examination - Vital Signs Temperature: 98 F Blood Pressure: 161/94 Pulse: 90 Respirations: 18 Pulse Ox (%): 92 - Physical Exam General: Alert, In no apparent distress, Cooperative Gastrointestinal: Other (soft,+distended, +fullness, + guarding, mild improvement over prior exam) - Studies Laboratory Data (last 24 hrs) 04/24/19 15:59: Magnesium 1.8, Troponin I 1.31 H* 04/24/19 15:59: PT 11.8, INR 1.00, APTT 31.8 04/24/19 15:59: Creatinine 2.16 H 04/24/19 15:59: WBC 6.9, Hgb 17.1, Hct 50.5 H, Plt Count 154 04/24/19 15:59: Sodium 139, Potassium 4.1, BUN 17, Creatinine 2.16 H, Glucose 123 H, Total Bilirubin 3.3 H, AST 804 H*, ALT 363 H*, Alkaline Phosphatase 151 H , Lipase 9287 H Assessment And Plan - Current Problems (Diagnosis) (1) Acute pancreatitis Onset Date: 01/29/18 Current Visit: No Status: Acute Plan: - Continue IV hydration - ok to have ice chips - ambulate with assist - continue medical managemen - incentive spirometry - serial labs - strict i/o
--- NOTE | 2019-04-25 10:37 | PN ---
Date of Progress Note: 04/25/2019 Subjective: Patient seen and examined. Chart reviewed and case discussed with RN and Dr. Naranjo. P atient states his pain is significantly better. No further shortness of breath. Physical Examination: Vital Signs: Temperature 98, heart rate 94, blood pressure is 157/97, respirations 28. O2 at 99% on room air. General: Awake, alert, oriented x3. Elderly male, no acute distress, slightly ill appearing. CV: S1, S2. Regular rate and rhythm. Peripheral pulses present. Respiratory: Moving air well bilaterally. No wheezing or stridor. Gastrointestinal: Abdomen is distended. Mild tenderness to palpation. No rebound or guarding. Extremities: No clubbing, cyanosis, or edema. Neurologic: Nonfocal. Cranial nerves 2 through 12 intact grossly. No focal neurological deficit. S peech is normal. Skin: No rashes. Normal skin turgor. Medications: List reviewed. Laboratory Data: Sodium 142, potassium 3.7, chloride 111, CO2 of 21, BUN 17, creatinine 1.81, glucos e 105, calcium 8.3, magnesium 1.5, total bilirubin 2.2, AST 622, ALT 284, alkaline phosphatase 118. Troponin 1.31, 1.17, 1.01. Albumin 2.8, triglycerides 142. Cholesterol 186, LDL 103, HDL 55, lipase 4482. WBC 5.3, H and H 14.7 and 45.4, platelets 109, neutrophils 55%. Imaging Studies: MRCP shows gallbladder wall mildly thickened, which may be secondary to pancreatiti s, probably less likely acalculous cholecystitis. The biliary tree is normal caliber without filling defect. Assessment And Plan: A 58-year-old male with: 1.Acute alcoholic pancreatitis, improving. We will continue IV fluids, n.p.o. Continue pain medica tions. Surgery on board. No necrosis or pseudocyst. 2.Elevated liver enzymes and hyperbilirubinemia. MRCP is negative. There is no biliary tree dilata tion, improving, likely secondary to pancreatitis. We will continue to monitor. 3.NSTEMI. Continue therapeutic Lovenox. Chest pain guidelines. Appreciate Dr. Naranjo' input. He r ecommends noninvasive treatment for now. 4.Acute on chronic kidney injury stage 3. Creatinine is improving, still above baseline. We will co ntinue to monitor. Avoid NSAIDs. Continue IV fluids. 5.Chronic diastolic heart failure. Continue with strict I's and O's, free fluid restriction. Curre ntly compensated. 6.Essential hypertension, not well controlled. Continue hydralazine p.r.n. 7.History of transient ischemic attack, stable. 8.Alcohol abuse counseled. 9.Deep venous thrombosis prophylaxis with Lovenox. Plan: Continue to monitor in ICU setting, likely discharge in the next 48 to 72 hours depending on c linical response. SA/MODL Voice ID: [id number] Report ID: [id number]
[2019-04-25] MEDS: ALLOPURINOL 300 MG TAB PO SCH (11:53)
--- NOTE | 2019-04-25 12:49 | CON ---
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 He was recently discharged back in November, ho comes in with acute abdominal pain beginning after drinking alcohol 3 days ago. He had been succe ssful at alcohol cessation for a short term, but had some psychological stress and as such began drin ag hard gin alcohol. He developed the same type of abdominal pain he has had in the past, epigastr ic and entire upper abdomen got significantly worse and as such, he came to the emergency room with t he above-stated complaints. Past Medical History: Significant for alcoholism, alcoholic pancreatitis, hypertension, TIA, CHF, ca rdiac arrhythmias and gout. Past Surgical History: Negative. Allergies: PENICILLIN. Home Medications: Include aspirin. Social History: Denies smoking, but has heavy alcohol use as described with tristen. Denies any other r ecreational drug use Review of Systems: A 10-point review of systems other than HPI, he has some flushing of his face and swelling to his kne es, some nausea, no emesis. Physical Examination: Vital Signs: At the time of my examination, his BMI is 28.4. Blood pressure 169/111, pulse 93, resp iratory rate 18, temperature 98.4. General: He is awake, alert, and oriented. Psychiatric: He is appropriate and conversive. He is in mild distress due to abdominal pain. HEENT: He is normocephalic. His face is somewhat flushed. He has some diaphoresis. He has conjunc tival injection and slight yellowing of his sclerae consistent with a jaundice appearance. Neck: Supple. No JVD. Chest: Normal expansion and excursion. Cardiovascular: Tachycardia, borderline during the exam. Abdomen: Diffusely tender predominantly in the epigastrium. There is fullness, positive guarding gl obally. He has an umbilical hernia. Extremities: No clubbing, cyanosis, or edema evident in the extremities, but he does have swelling t o the bilateral knees. Laboratory Data: Reveals a white blood count 6.9, hemoglobin 17.1, hematocrit 50.5, platelet count i s 154. His PT 11.8, INR 1.0, PTT is 31.8. Sodium 139, potassium 4.1, chloride 102, carbon dioxide 2 5, BUN 17, creatinine 2.16, glucose is 123, magnesium 1.8, total bilirubin 3.3, direct component is 1 .8, AST 804, ALT 363, alkaline phosphatase 151. His LDH was 568. Troponin I was 1.17. ProBNP is 89 21. His lipase was 9287. UA showed 2+ blood and ketones, 20 to 50 bacteria. Sperm was present in t he urine, 3+ total protein. Hepatitis panel is pending. The toxicology screen was negative. He had imaging performed which included a CT abdomen and pelvis which was officially read as moderate pancr eatitis on the CT. He additionally had an abdominal ultrasound which was officially read as mild thi ckening of the gallbladder wall, may be related to pancreatitis or acalculous cholecystitis. The usman iary tree is normal in caliber. He had an MRCP as well which was officially read as gallbladder wall is mildly thickened, may be secondary to pancreatitis, probably less likely an acute acalculous chol ecystitis. Biliary tree is normal in caliber without filling defect. Mild prominence of the pancrea tic side branches, may be related to chronic pancreatitis. Assessment And Plan: This is a 58-year-old male who comes in with multiple medical problems and recu rrent alcoholic pancreatitis. 1.IV fluid hydration. 2.N.p.o. status. 3.Serial abdominal exams. 4.Recommend cardiology consult for his elevation of cardiac enzymes. 5.Continue medical management per Dr. Alba and Dr. Hayes. I will follow along with you. Thank you for this interesting consult. GURINDER/TERRELL Voice ID: [id number] Report ID: [id number]
[2019-04-25] MEDS: HYDRALAZINE HCL 20 MG/ML VIAL IV PRN (14:19)
[2019-04-25] MEDS: D5 0.45 NS 1,000 ML IV SCH (18:38)
[2019-04-25] MEDS ORDERED: TRAMADOL HCL 50 MG TAB PO PRN (19:58)
[2019-04-25] MEDS ORDERED: HYDROCODONE/APAP 7.5/325 MG TAB PO PRN (19:58)
[2019-04-25] MEDS: CARVEDILOL 6.25 MG TAB PO SCH (20:58)
[2019-04-25] MEDS ORDERED: CARVEDILOL 6.25 MG TAB PO SCH (21:00)
[2019-04-26] MEDS: D5 0.45 NS 1,000 ML IV SCH ×2 (04:17→15:47)
[2019-04-26] MEDS: MORPHINE 2 MG/ML SYR IV PRN ×2 (05:18→20:26)
[2019-04-26 06:06] LABS: Absolute Lymphocytes (CBC) 1.8 K/uL (0.7-4.9); Basophils % 0.6 % (0-1.3); Hematocrit 39.6 % (39.6-49.0); Lymphocytes % 34.8 % (15.3-44.8); MPV 9.2 fL (7.6-11.3)
[2019-04-26 06:21] LABS: Albumin 2.5 g/dL (3.4-5.0); Bilirubin Total 2.5 mg/dL (0.2-1.0); Magnesium 1.8 mg/dL (1.8-2.4); Protein, Total 6.9 g/dL (6.4-8.2)
[2019-04-26] MEDS ORDERED: MAGNESIUM SULFATE 1 gm IVPB 1 GM/100 ML BAG IV ONE (06:32)
[2019-04-26 07:33] LABS: Blood Morphology Comment NOT SEEN (NOT SEEN); Platelet Estimate ADEQ
[2019-04-26] MEDS: THIAMINE HCL 100 MG TABLET PO SCH (08:39)
[2019-04-26] MEDS: PANTOPRAZOLE 40MG TABLET PO SCH (08:39)
[2019-04-26] MEDS: FOLIC ACID 1 MG TABLET PO SCH (08:39)
[2019-04-26] MEDS: ALLOPURINOL 300 MG TAB PO SCH (08:39)
[2019-04-26] MEDS: ASPIRIN EC 81 MG TAB PO SCH (08:39)
[2019-04-26] MEDS: CARVEDILOL 6.25 MG TAB PO SCH ×2 (08:40→20:25)
[2019-04-26] MEDS: ENOXAPARIN 100 MG/ML SYR SQ SCH (08:41)
--- NOTE | 2019-04-26 13:08 | PN ---
Mr. Paulino seems to be doing better. Not having chest pain or epigastric pain. Because of abnormal tr oponins, he is going to have a nuclear stress test and echo tomorrow. I am concerned that all of thi s was from cardiomyopathy alcohol acute injury, but I do not think we have an acute coronary syndrome going on. We will base any further testing on what the results of the nuclear stress test and echo are. RAHEL/TERRELL Voice ID: [id number] Report ID: [id number]
--- NOTE | 2019-04-26 13:58 | P.PN ---
Subjective Date of Service: 04/26/19 Subjective: Improving (Pain resolved, tolerating liquids, ambulatory) Physical Examination - Vital Signs Temperature: 98.7 F Blood Pressure: 137/80 Pulse: 87 Respirations: 18 Pulse Ox (%): 98 - Physical Exam General: Alert, In no apparent distress, Cachectic Gastrointestinal: Soft and benign, Other (mild distention / asicites) Assessment And Plan - Current Problems (Diagnosis) (1) Acute pancreatitis Onset Date: 01/29/18 Current Visit: No Status: Acute Plan: - Continue IV hydration - ok to have clears today, will consider advance tomorrow after stress test, recommend NPO after midnight - ambulate with assist - continue medical management - incentive spirometry - serial labs - strict i/o
--- NOTE | 2019-04-26 15:32 | PN ---
Date of Progress Note: 04/26/2019 Subjective: Patient is seen and examined. Chart reviewed and case discussed with RN. Patient appea rs significantly better. States his pain is improved. Did require extra dose of morphine yesterday. No further nausea or vomiting. Case discussed with Dr. Green. Medications: List reviewed. Physical Examination: Vital Signs: Temperature 98.7, heart rate 87, blood pressure 137/80, respirations 18, O2 98% on room air. General: Awake, alert and oriented x3, ill-appearing male in some mild distress. CV: S1, S2. Regular rate and rhythm. Peripheral pulses present. Respiratory: Moving air well bila terally. No wheezing or stridor. Gastrointestinal: Abdomen is mildly distended. No rebound or guarding. No tenderness. Positive tesha wel sounds. Extremities: No clubbing, cyanosis, or edema. Neuro: Cranial nerves 2 through 12 intact grossly. No focal neurological deficit. Speech is normal . Skin: No rashes. Normal skin turgor. Laboratory Data: Sodium 143, potassium 4, chloride 112, CO2 22, BUN 17, creatinine 1.79, glucose 94, calcium 8.2, magnesium 1.8, total bilirubin is 2.5, AST 490, ALT 243, alkaline phosphatase 99, album in 2.5. WBC 5.2, H and H 13.4 and 39.6, platelets 120. Urine culture shows no growth. Assessment And Plan: A 58-year-old male with: 1.Acute alcoholic pancreatitis improving. Lipase is trending down. We will continue with IV fluids . Patient is currently just on sips of water and ice chips. Lipase is down to 1348. We will advanc e to clear liquid diet. Appreciate Dr. Green's input. There was no necrosis or pseudocyst. 2.Elevated liver enzymes with hyperbilirubinemia. No biliary tree obstruction, levels are improving likely secondary to above or possibly acalculous cholecystitis. 3.Acute alcoholic myocarditis. Appreciate Dr. Naranjo' input. I does not feel that this is non-ST-e levation myocardial infarction. Cardiac enzymes are trending down. The patient denies any chest harley n. Stress test is planned for tomorrow along with echocardiogram. Continue with chest pain guidelin es. 4.Acute on chronic kidney injury, stage 3. Creatinine improving, not quite back to baseline. We wi ll continue to avoid NSAIDs. We will continue IV fluids and monitor. 5.Hypoglycemia. Patient is switched to D5 half NS. Monitor blood glucose levels closely. 6.Chronic diastolic heart failure. Continue with I's and O's. Free fluid restriction. 7.Essential hypertension, poorly controlled. P.r.n. medications have been added. 8.History of transient ischemic attack, stable. 9.Alcohol abuse counseled. Spoke at length with patient regarding plan for avoiding alcohol in the future. Discussed AA meetings which patient is open to. He does not wish to go to rehab at this poi nt. 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 Patient understands the risks associated with continued alcohol binge drinking, including worsenin g pancreatitis, possible pancreatic inflammation and even due to complications. 10.Deep venous thrombosis prophylaxis. Continue with Lovenox. Patient is step down to regular floo r yesterday. We will continue to monitor closely. 11.Likely discharge in the 24-48 hours depending on clinical response. We will start on clear liqui ds this morning. /TERRELL Voice ID: [id number] Report ID: [id number]
[2019-04-27] MEDS: D5 0.45 NS 1,000 ML IV SCH ×2 (01:36→10:59)
[2019-04-27 05:48] VITALS: BMI 29.0
[2019-04-27 06:03] LABS: Absolute Lymphocytes (CBC) 1.7 K/uL (0.7-4.9); Basophils % 0.4 % (0-1.3); Hematocrit 38.9 % (39.6-49.0); Lymphocytes % 33.8 % (15.3-44.8); MPV 9.8 fL (7.6-11.3); RBC Red Blood Cell Count 4.49 M/uL (4.33-5.43)
[2019-04-27 07:05] LABS: Albumin 2.7 g/dL (3.4-5.0); Bilirubin Total 2.4 mg/dL (0.2-1.0); Magnesium 1.9 mg/dL (1.8-2.4); Protein, Total 7.4 g/dL (6.4-8.2)
[2019-04-27] MEDS ORDERED: REGADENOSON 0.4 MG/5 ML SYR IV ONE (08:17)
[2019-04-27] MEDS: PANTOPRAZOLE 40MG TABLET PO SCH (09:00)
[2019-04-27] MEDS: FOLIC ACID 1 MG TABLET PO SCH (09:00)
[2019-04-27] MEDS: ASPIRIN EC 81 MG TAB PO SCH (09:00)
[2019-04-27] MEDS: THIAMINE HCL 100 MG TABLET PO SCH (09:00)
[2019-04-27] MEDS: ALLOPURINOL 300 MG TAB PO SCH (09:00)
[2019-04-27] MEDS: CARVEDILOL 6.25 MG TAB PO SCH ×2 (09:00→20:47)
[2019-04-27] MEDS: ENOXAPARIN 100 MG/ML SYR SQ SCH (10:55)
--- NOTE | 2019-04-27 12:15 | RAD REPORT ---
EXAM DESCRIPTION: [facility] - Rest Stress Cardiac Imaging - 04/27/2019 11:45 am CLINICAL HISTORY: Chest pain COMPARISON: [facility]; REST STRESS CARDIAC 03/11/2017. TECHNIQUE: The patient was administered approximately 10 mCi of Tc 99m Sestamibi prior to resting SP ECT imaging of the heart. The patient was then administered approximately 30 mCi of Tc 99m Sestamibi following exercise or pharmacologic stress. Multiplanar SPECT images were reviewed. FINDINGS: The end diastolic volume is 230 ml, the end systolic volume is 171 ml, and the ejection fr action is 26 %. No stress-induced ischemic changes are identifiable. A large fixed defect is seen inferior wall from base to apex. This is similar to prior imaging. IMPRESSION: No stress induced ischemia. A large fixed defect is seen inferior wall from base to apex. Ventricular volumes have increased in the check santiago fraction decreased since prior imaging. Ejection fraction is poor at 26%.
[2019-04-27] MEDS: NA CHLORIDE 0.9% 1,000 ML IV SCH (15:43)
--- NOTE | 2019-04-27 20:21 | PN ---
Date of Progress Note: 04/27/2019 Subjective: Patient is seen and examined. Chart reviewed and case discussed with RN and Dr. Mckenna as well as Dr. Green. Patient is doing significantly better, able to tolerate his diet. Not havin g any pain. Going for nuclear stress test today. Medication List: Reviewed. Physical Examination: Vital Signs: Temperature 98, heart rate 80, blood pressure 127/84, respirations 16, O2 of 98% on cayetano m air. General: Awake, alert, oriented x3, not in any acute distress. CV: S1, S2. Regular rate and rhythm. Peripheral pulses present. Respiratory: Moving air well bilaterally. No wheezing. Gastrointestinal: Abdomen is soft. No tenderness to palpation. Positive bowel sounds. Extremities: No clubbing, cyanosis, or edema. Neurologic: Nonfocal. Laboratory Data: Sodium 139, potassium 4, chloride 108, CO2 of 23, BUN 17, creatinine 1.92, glucose 92, calcium 8.4. Magnesium 1.9. Total bilirubin 2.4, AST 470, ALT 234, alkaline phosphatase 112, al bumin 2.7, lipase 783. WBC 5.1, H and H 13.1 and 38.9, platelets 133, neutrophils 46%. Hepatitis pa rickey pending. UDS is negative. Cardiac stress test shows no stress-induced ischemia. Large fixed de fect is seen inferior wall from base to apex. Ventricular volumes have increased and ejection fracti on decreased from prior imaging. EF is poor at 26%. Assessment And Plan: A 58-year-old male with: 1.Acute alcoholic pancreatitis, improving. Lipase trending down. Tolerating clear liquids. We luca l advance to GI soft diet. We will switch IV fluids back to NS at 100. Blood glucose levels are nor mal. Patient is now eating. Lipase trending down. We will consult GI. No necrosis or pseudocyst. 2.Elevated liver enzymes with hyperbilirubinemia. MRCP is negative for stone, likely due to alcohol ic hepatitis. GI consulted. 3.Acute alcoholic myocarditis. Cardiology on board. Not acute coronary syndrome per Cardiology. S tress test shows large fixed defect, however, no stress-induced ischemia. Ejection fraction is very low at 26%. 4.Acute on chronic kidney injury, stage 3. Creatinine improving. Serum creatinine is slightly abov e from yesterday. We will continue to monitor. Avoid NSAIDs. Continue IV fluids. 5.Hyperglycemia, corrected. We will switch off D5 half NS. 6.Chronic diastolic heart failure. We will continue with strict I's and O's, free fluid restriction . Currently compensated. 7.Essential hypertension, not well controlled. Medications have been adjusted. 8.History of transient ischemic attack, stable. 9.Alcohol abuse counseled. Patient not willing to go to rehab. 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 Patient has stated these things in the past and has not followed through, likely we will continue to drink. 10.Deep venous thrombosis prophylaxis with Lovenox. Plan: Discharge in the next 24 to 48 hours once liver enzymes improving and cleared by GI, Cardiolog y. /MODL Voice ID: [id number] Report ID: [id number]
--- NOTE | 2019-04-28 01:25 | PN ---
Admitted to Dr. Alba on 04/24/2019. Dr. Naranjo has been following him. We think he has an alcoholic cardiomyopathy causing elevated trop onin. He has hypertension. Echocardiogram today confirmed an ejection fraction about 35%. Lexiscan showed no ischemia. The patient is asymptomatic. He should go home on beta medardo, Lasix, PETER inh ibitor, and aspirin and see us in the office in the near future. He should abstain from alcohol comp letely. The case was discussed with Dr. Alba. BIANCA/TERRELL Voice ID: [id number] Report ID: [id number]
[2019-04-28] MEDS: NA CHLORIDE 0.9% 1,000 ML IV SCH (02:06)
[2019-04-28 06:13] LABS: Albumin 2.5 g/dL (3.4-5.0); Bilirubin Total 1.8 mg/dL (0.2-1.0); Magnesium 1.9 mg/dL (1.8-2.4); Potassium 4.2 mmol/L (3.5-5.1); Protein, Total 6.5 g/dL (6.4-8.2)
--- NOTE | 2019-04-28 08:12 | ECHO ---
HEIGHT: 6 ft 3 in WEIGHT: 232 lb 9.6 oz DATE OF STUDY: 04/27/[address]: Vern Naranjo MD 2-DIMENSIONAL: YES M.MODE: YES DOPPLER: YES COLOR FLOW: YES TDS: NO PORTABLE: NO DEFINITY: NO BUBBLE STUDY: NO DIAGNOSIS: NSTEMI CARDIAC HISTORY: CATHERIZATION: NO SURGERY: NO PROSTHETIC VALVE: NO PACEMAKER: NO MEASUREMENTS (cm) DIASTOLIC (NORMALS) SYSTOLIC (NORMALS) IVSd 1.3 (0.6-1.2) LA Diam 4.8 (1.9-4.0) LVEF 32% LVIDd 6.0 (3.5-5.7) LVIDs 5.1 (2.0-3.5) %FS 15% LVPWd 1.3 (0.6-1.2) Ao Diam 2.9 (2.0-3.7) 2 DIMENSIONAL ASSESSMENT: RIGHT ATRIUM: NORMAL LEFT ATRIUM: DILATED RIGHT VENTRICLE: NORMAL LEFT VENTRICLE: DILATED TRICUSPID VALVE: NORMAL MITRAL VALVE: NORMAL PULMONIC VALVE: NORMAL AORTIC VALVE: NORMAL PERICARDIAL EFFUSION: NONE AORTIC ROOT: NORMAL LEFT VENTRICULAR WALL MOTION: SEVERE GLOBAL HYPOKINESIS. DOPPLER/COLOR FLOW: MILD MITRAL AND TRICUSPID REGURGITATION. COMMENTS: MILD MITRAL AND TRICUSPID REGURGITATION. SEVERE GLOBAL HYPOKINESIS. LEFT VENTRICULAR EJECTION FRACTION 32%. LEFT ATRIAL ENLARGEMENT. LEFT VENTRICULAR DILATATION. TECHNOLOGIST: Gena RIZVI
--- NOTE | 2019-04-28 08:19 | TREADPHA ---
DX: NSTEMI Date of Study: 04/27/2019 Ht: 6 3 Wt: 232 lb 9.6 oz Consulting Physician: RADHA MEDICATIONS: NORCO, ASPIRIN, COREG, LOVENOX, APRESOLINE, ATIVAN, NITROSTAT, ULTRAM HISTORY: 58 YEAR OLD MALE WITH COMPLAINTS OF CHEST PAIN. HISTORY OF IRREGULAR HEART BEAT, TIA, CONGESTIVE HEART FAILURE, PANCREATITIS, NON SMOKER AND OCCASIONAL DRINKER. PHYSICIAL EXAMINATION: RESTING B.P.: 152/105 RESTING H.R.: 84 RESTING EKG: NORMAL SINUS RHYTHM. PROTOCOL: LEXISCAN EXERCISE TIME: 3:30 B.P. AT PEAK STRESS: 142/88 IMPRESSION: LEXISCAN INJECTED, FOLLOWED BY CARDIOLITE PER PROTOCOL. SEE NUCLEAR MEDICINE REPORT. NO SUPRAVENTRICULAR TACHYCARDIA, VENTRICULAR TACHYCARDIA OR PREMATURE VENTRICULAR COMPLEXES. FREQUENT PREMATURE ATRIAL COMPLEXES DURING PROCEDURE. PATIENT REPORTS NO CHEST PAIN.
[2019-04-28 08:29] VITALS: O2SAT 99
[2019-04-28] MEDS: ALLOPURINOL 300 MG TAB PO SCH (09:31)
[2019-04-28] MEDS: THIAMINE HCL 100 MG TABLET PO SCH (09:31)
[2019-04-28] MEDS: CARVEDILOL 6.25 MG TAB PO SCH (09:31)
[2019-04-28] MEDS: ASPIRIN EC 81 MG TAB PO SCH (09:32)
[2019-04-28] MEDS: PANTOPRAZOLE 40MG TABLET PO SCH (09:32)
[2019-04-28] MEDS: FOLIC ACID 1 MG TABLET PO SCH (09:32)
[2019-04-28] MEDS: ENOXAPARIN 100 MG/ML SYR SQ SCH (10:00)
[2019-04-28 14:07] VITALS: BP 131/91; TEMP 98
[2019-04-29 03:14] LABS: HBsAG Nonreactive (Nonreactive)
--- NOTE | 2019-04-29 17:41 | P.DS ---
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 Patient states that he had some alcohol. His pain is epigastric, nonradiating, moderate, and progressive. He also reports some nausea and vomiting and low appetite. Patient denies any chest pain. In the ER, his workup revealed a lipase of 9000. Liver enzymes are elevated, 804 and 363. Total bilirubin was also elevated. His kidney function was double his last and troponin was elevated at 1.31. Patient's CT scan showed moderate pancreatitis. Ultrasound showed normal biliary tree caliber, mild thickening of the wall of the gallbladder, may be related to pancreatitis or acalculous cholecystitis. Patient referred for admission. Hospital Course: Patient was admitted with acute alcoholic pancreatitis. He was kept NPO, admitted to the ICU, given symptom control medications. He did have elevated LFTs, there was no GI available. General surgery was consulted and was on board. An MRCP was done which is negative for stone. His elevated LFTs with hyperbilirubinemia was thought to be secondary to alcoholic hepatitis. Once he was stabilized, he was transferred out of the ICU to the regular floor. As the symptoms got on a clear liquid diet and his diet was advanced as tolerated. Prior to discharge, he was tolerating a GI soft diet without any abnormalities. Throughout the stay, he was also noted to have acute alcoholic echocardiogram was done, which showed an ejection fraction low at 26%. He also had a stress test done which showed a large fixed defect however no stress-induced ischemia. He was continued on heart failure guidelines along with free fluid restriction. He was then cleared for discharge by cardiology and general surgery. There is extensive discussion regarding alcohol usage. 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 It seems that patient has stated these things in the past and not really follow through. Likely he will continue to drink. prior to discharge, patient was alert oriented x3, in no acute distress and hemodynamically stable. She was tolerating a GI soft diet without any abdominal pain, nausea or vomiting. His labs were stable and he was hemodynamically stable. His diagnoses/treatment plan was explained to him, all questions were answered and he verbalized understanding. He was then discharged home in a safe and stable manner. He will follow up with GI as an outpatient. Information was provided to him. He will also follow up with his primary care physician in a couple of days. Vital Signs/Physical Exam: Temp Pulse Resp BP Pulse Ox 98.0 F 84 18 131/91 H 99 04/28/19 12:00 04/28/19 12:00 04/28/19 12:00 04/28/19 12:00 04/28/19 12:00 General: Alert, In no apparent distress, Oriented x3 HEENT: Atraumatic, PERRLA, EOMI Neck: Supple, JVD not distended Respiratory: Clear to auscultation bilaterally, Normal air movement Cardiovascular: Regular rate/rhythm, Normal S1 S2 Gastrointestinal: Normal bowel sounds, No tenderness Musculoskeletal: No tenderness Integumentary: No rashes Neurological: Normal speech, Normal tone, Normal affect Lymphatics: No axilla or inguinal lymphadenopathy Laboratory Data at Discharge: WBC 5.1 K/uL (4.3-10.9) 04/27/19 05:32 Hgb 13.1 g/dL (13.6-17.9) L 04/27/19 05:32 Hct 38.9 % (39.6-49.0) L 04/27/19 05:32 Plt Count 133 K/uL (152-406) L 04/27/19 05:32 PT 11.8 SECONDS (9.5-12.5) 04/24/19 15:59 INR 1.00 04/24/19 15:59 APTT 31.8 SECONDS (24.3-36.9) 04/24/19 15:59 Sodium 138 mmol/L (136-145) 04/28/19 05:19 Potassium 4.2 mmol/L (3.5-5.1) 04/28/19 05:19 BUN 17 mg/dL (7-18) 04/28/19 05:19 Creatinine 1.71 mg/dL (0.55-1.3) H 04/28/19 05:19 Glucose 87 mg/dL (74-106) 04/28/19 05:19 Magnesium 1.9 mg/dL (1.8-2.4) 04/28/19 05:19 Total Bilirubin 1.8 mg/dL (0.2-1.0) H 04/28/19 05:19 AST 381 U/L (15-37) H* 04/28/19 05:19 ALT 199 U/L (12-78) H 04/28/19 05:19 Alkaline Phosphatase 111 U/L (45-117) 04/28/19 05:19 Troponin I 1.01 ng/mL (0.0-0.045) H* 04/25/19 05:19 Triglycerides 142 mg/dL (<150) 04/25/19 05:19 Cholesterol 186 mg/dL (<200) 04/25/19 05:19 HDL Cholesterol 55 mg/dL (40-60) 04/25/19 05:19 Cholesterol/HDL Ratio 3.38 04/25/19 05:19 Lipase 783 U/L (73-393) H 04/27/19 05:32 Home Medications: Allopurinol [Zyloprim*] 300 mg PO DAILY 04/25/19 Carvedilol [Coreg*] 6.25 mg PO BID 04/25/19 Folic Acid 1 mg PO DAILY 04/25/19 Indomethacin [Indocin*] 50 mg PO BID 04/25/19 Lisinopril 20 mg PO DAILY 04/25/19 Metoprolol Tartrate [Lopressor*] 100 mg PO BID 04/25/19 Pantoprazole [Protonix Tab*] 40 mg PO DAILY 04/25/19 Probenecid/Colchicine [Probenecid-Colchicine Tablet] 1 tab PO DAILY 04/25/19 Thiamine HCl 100 mg PO DAILY 04/25/19 Furosemide [Lasix] 40 mg PO DAILY #30 tab 04/28/19 New Medications: Furosemide [Lasix] 40 mg PO DAILY #30 tab Patient Discharge Instructions: Please follow up with the primary care physician in 2-3 days. Please follow up with gastroenterology, Dr. mckenna in 1 week. Information provided to you. Please follow up with cardiology in 2 weeks. Please follow up with general surgery in 1-2 weeks. Please return to the emergency room for worsening symptoms. As discussed, it is very important that you abstain from any alcohol usage. Alcohol anonymous is a good place to start. Other resources provided to you with the discharge paperwork. Diet: GI soft as tolerated Activity: Ad pelon Followup: Ludin Mcfadden MD [ACTIVE - CAN ADMIT] - 1-2 Weeks Mak Green MD [ACTIVE - CAN ADMIT] - 1-2 Weeks Franc Mckenna MD [ASSOCIATE-ACTIVE - CAN ADMIT] - 2-3 Days Time spent managing pt's care (in minutes): 55
[2019-04-30 09:47] LABS: Hep C Virus RNA (PCR)log 6.44 log IU/mL
== END 2019-04-28 13:51 | disposition home or self-care (01) | DRG 438 ==
LOC: ER 15:32 → UNDOADMIN 17:12 → ERHOLD 17:12 → 3RD-ICU 20:17 → 2ND 04-25 14:40
PROVIDERS: ADMIT Family Medicine; ATTEND Family Medicine
DX: K85.20 Alcohol induced acute pancreatitis without necrosis or infection (principal); I40.8 Other acute myocarditis; I42.6 Alcoholic cardiomyopathy; I13.0 Hypertensive heart and chronic kidney disease with heart failure and stage 1 through stage 4 chronic kidney disease, or unspecified chronic kidney disease; N17.9 Acute kidney failure, unspecified; I50.32 Chronic diastolic (congestive) heart failure; I11.0 Hypertensive heart disease with heart failure; Z86.73 Personal history of transient ischemic attack (TIA), and cerebral infarction without residual deficits; Z87.891 Personal history of nicotine dependence; M06.9 Rheumatoid arthritis, unspecified; N18.3 Chronic kidney disease, stage 3 (moderate); R73.9 Hyperglycemia, unspecified
CPT/HCPCS: 36415; 71045; 74176; 74181; 76705; 78452; 80048; 80053; 80061; 80074; 80076; 80307; 81003; 81015; 82962; 83615; 83690; 83735; 83880; 84484; 85025; 85610; 85730; 87086; 87088; 87522; 93005; 93017; 93306; 94760; 96361; 96372; 96374; 96375; 99285; A9500; C9113; J0360; J1170; J1650; J2270; J2405; J2785; J3411; J3475; J7030

== ENCOUNTER 2019-08-03 06:50 | Observation (INO) | payer MEDICARE, OTHER ==
[2019-08-03] MEDS ORDERED: MORPHINE 4 MG/ML SYR ONE (07:07)
[2019-08-03] MEDS ORDERED: ONDANSETRON 4 MG/2 ML VIAL ONE (07:08)
[2019-08-03] MEDS ORDERED: NITROGLYCERIN 0.4 MG/TAB SL ONE (07:15)
[2019-08-03] MEDS ORDERED: ASPIRIN 81 MG CHEWABLE TABLET ONE (07:15)
[2019-08-03] MEDS ORDERED: NA CHLORIDE 0.9% 500 ML ONE (07:15)
[2019-08-03 08:07] LABS: Absolute Lymphocytes (CBC) 1.1 K/uL (0.7-4.9); Basophils % 0.8 % (0-1.3); Hematocrit 47.8 % (39.6-49.0); Lymphocytes % 20.5 % (15.3-44.8); MPV 9.4 fL (7.6-11.3); RBC Red Blood Cell Count 5.59 M/uL (4.33-5.43)
[2019-08-03 08:10] LABS: Protime INR 0.99
[2019-08-03 08:33] LABS: Albumin 2.6 g/dL (3.4-5.0); Bilirubin Direct 0.4 mg/dL (0-0.2); Bilirubin Total 0.9 mg/dL (0.2-1.0); Magnesium 1.7 mg/dL (1.8-2.4); Potassium 3.8 mmol/L (3.5-5.1); Protein, Total 7.7 g/dL (6.4-8.2)
[2019-08-03 08:35] LABS: Troponin (Emerg Dept Use Only) 1.09 ng/mL (0.0-0.045)
--- NOTE | 2019-08-03 08:41 | RAD REPORT ---
EXAM DESCRIPTION: RAD - Chest Single View - 08/03/2019 7:25 am CLINICAL HISTORY: chest pain, sob Chest pain. COMPARISON: Chest Single View dated 04/24/2019; Chest Single View dated 11/29/2018; Chest Pa And Lat (2 Views) dated 08/17/2018; Chest Single View dated 05/07/2017 FINDINGS: Portable technique limits examination quality. The lungs are grossly clear. The heart is mildly enlarged in size. No displaced fractures. IMPRESSION: No acute intrathoracic process suspected.
--- NOTE | 2019-08-03 08:52 | ER ---
Nurse's Notes [facility] Name: Natan Paulino Sr Age: 59 yrs Sex: Male : 1960 Arrival Date: 08/03/2019 Time: 06:52 Bed 6 Private MD: Diagnosis: Non-ST elevation (NSTEMI) myocardial infarction;Acute combined systolic (congestive) and diastolic (congestive) heart failure Presentation: 08/03 07:05 Presenting complaint: Patient states: SOB x 2 days and CP since last night. Reports hx aa1 of NH with similar symptoms. Pt diaphoretic and anxious. Transition of care: patient was not received from another setting of care. Onset of symptoms was August 01, 2019. Risk Assessment: Do you want to hurt yourself or someone else? Patient reports no desire to harm self or others. Initial Sepsis Screen: Does the patient meet any 2 criteria? No. Patient's initial sepsis screen is negative. Does the patient have a suspected source of infection? No. Patient's initial sepsis screen is negative. Care prior to arrival: None. 07:05 Method Of Arrival: Wheelchair aa1 07:05 Acuity: NINO 2 aa1 Triage Assessment: 07:08 General: Appears uncomfortable, Behavior is cooperative, appropriate for age, anxious. aa1 Historical: - Allergies: 07:08 PENICILLINS; aa1 - Home Meds: 07:08 carvedilol Oral [Active]; Lasix 20 mg Oral tab 1 tab once daily [Active]; lisinopril 10 aa1 mg Oral tab 1 tab once daily [Active]; meloxicam Oral [Active]; Methocarbamol Oral [Active]; metoprolol tartrate 25 mg Oral tab 1 tab 2 times per day [Active]; - PMHx: 07:08 CHF; Gout; Hypertension; osteoarthritis; Pancreatitis; Rheumatoid Arthritis; TIA; aa1 - PSHx: 07:08 None; aa1 - Immunization history:: Flu vaccine is not up to date. - Social history:: Smoking status: Patient/guardian denies using tobacco, Patient/guardian denies using alcohol, street drugs, The patient lives with family. - Ebola Screening: : Patient denies exposure to infectious person Patient denies travel to an Ebola-affected area in the 21 days before illness onset. - Family history:: not pertinent. - Hospitalizations: : No recent hospitalization is reported. Screenin:15 Abuse screen: Denies threats or abuse. Denies injuries from another. Nutritional ph screening: No deficits noted. Tuberculosis screening: No symptoms or risk factors identified. Fall Risk None identified. Assessment: 07:14 General: Appears in no apparent distress. uncomfortable, well groomed, Behavior is ph cooperative, appropriate for age, anxious, Denies fever, feeling ill. Pain: Complains of pain in anterior aspect of left upper chest Pain does not radiate. Neuro: Level of Consciousness is awake, alert, obeys commands. Cardiovascular: Reports chest pain, diaphoresis, lightheadedness, shortness of breath, Rhythm is sinus tachycardia Chest pain quality is pressure, is located in left anterior chest wall began approx 1 week, became worse last night. 07:15 Respiratory: Reports shortness of breath at rest cough that is non-productive, labored ph breathing Airway is patent Respiratory effort is even, labored, shallow, Respiratory pattern is tachypnea Breath sounds with crackles. GI: No signs and/or symptoms were reported involving the gastrointestinal system. Derm: Skin is intact, Skin is diaphoretic, Skin is normal, Skin temperature is cool. Musculoskeletal: Circulation, motion, and sensation intact. Range of motion: intact in all extremities. 08:36 Reassessment: Patient appears in no apparent distress at this time. Patient and/or ph family updated on plan of care and expected duration. Pain level reassessed. Patient is alert, oriented x 3, equal unlabored respirations, skin warm/dry/pink. Pt reports that pain has improved after medication, ERP at bedside to speak w/ pt about results, pt to be admitted, awaiting admit orders and room assignment. 10:00 Reassessment: Patient appears in no apparent distress at this time. Patient and/or ph family updated on plan of care and expected duration. Pain level reassessed. Patient is alert, oriented x 3, equal unlabored respirations, skin warm/dry/pink. Patient states feeling better. 11:30 Reassessment: Patient appears in no apparent distress at this time. Patient and/or ph family updated on plan of care and expected duration. Pain level reassessed. Patient is alert, oriented x 3, equal unlabored respirations, skin warm/dry/pink. Pt resting comfortably, work of breathing improved significantly, pt states," I'm feeling much better." Urinal emptied w/ 1 liter output noted, BP remains elevated, pt states, " My blood pressure is always high." Awaiting room asignment. 12:43 Reassessment: Patient appears in no apparent distress at this time. Patient and/or ph family updated on plan of care and expected duration. Pain level reassessed. Patient is alert, oriented x 3, equal unlabored respirations, skin warm/dry/pink. Pt sitting up at bedside eating lunch and tolerating well, awaiting admission orders and room assignment. Vital Signs: 07:08 Pulse 128; Resp 30; Temp 98.3; Pulse Ox 100% on R/A; Weight 95.25 kg; Height 6 ft. 3 aa1 in. (190.50 cm); Pain 8/10; 07:15 BP 175 / 135; ph 07:15 Pain 8/10; jl7 07:30 BP 156 / 119; Pulse 98; Resp 26 S; Pulse Ox 93% on 2 lpm NC; Pain 6/10; jl7 08:34 BP 154 / 112; Pulse 90; Resp 20; Pulse Ox 99% on 2 lpm NC; ph 09:30 BP 164 / 114; Pulse 91; Resp 22; Pulse Ox 97% on R/A; ph 10:30 BP 168 / 120; Pulse 92; Resp 20; Pulse Ox 97% on R/A; ph 11:42 BP 176 / 134; Pulse 95; Resp 18; Pulse Ox 96% on R/A; ph 12:45 BP 175 / 113; Pulse 90; Resp 18; Pulse Ox 98% on R/A; ph 13:16 BP 159 / 101; Pulse 87; Resp 20; Temp 98.0; Pulse Ox 99% on R/A; ph 07:08 Body Mass Index 26.25 (95.25 kg, 190.50 cm) aa1 ED Course: 06:52 Patient arrived in ED. jg7 07:00 Inserted saline lock: 20 gauge in right forearm, using aseptic technique. Blood ea collected. 07:06 Triage completed. aa1 07:10 Giselle Paulino, RADHIKA is Primary Nurse. ph 07:11 Arm band placed on. ph 07:14 Abram Balbuena MD is Attending Physician. ma2 07:16 Patient has correct armband on for positive identification. Bed in low position. Call ph light in reach. Side rails up X 1. monitor worker on. Pulse ox on. NIBP on. Door closed. Noise minimized. Warm blanket given. Verbal reassurance given. 08:50 Anton Hayes DO is Hospitalizing Provider. ma2 09:46 Hospitalizing Provider role handed off by Anton Hayes DO ma2 09:46 Thomas Boyle is Hospitalizing Provider. ma2 11:46 No provider procedures requiring assistance completed. Patient admitted, IV remains in ph place. Administered Medications: 07:13 Drug: morphine 4 mg Route: IVP; Site: right forearm; ph 07:40 Follow up: Response: No adverse reaction; Pain is decreased jl7 07:13 Drug: Zofran 4 mg Route: IVP; Site: right forearm; ph 08:00 Follow up: Response: No adverse reaction jl7 07:15 Drug: NS 0.9% 500 ml Route: IV; Rate: 1 bolus; Site: right forearm; jl7 07:15 Drug: Aspirin Chewable Tablet 324 mg Route: PO; jl7 08:00 Follow up: Response: No adverse reaction jl7 07:15 Drug: Nitroglycerin 0.4 mg Route: Sublingual; jl7 07:30 Drug: Nitroglycerin 0.4 mg Route: Sublingual; jl7 09:00 Drug: Lovenox 1 mg/kg Route: Sub-Q; Site: right lower abdomen; ph 10:00 Follow up: Response: No adverse reaction ph 09:00 Drug: Lasix 40 mg Route: IVP; Site: right forearm; ph 10:00 Follow up: Response: No adverse reaction ph Intake: 11:49 IV: 500ml (IV Fluid); Total: 500ml. ph Output: 11:49 Urine: 1000ml; Total: 1000ml. ph Outcome: 08:51 Decision to Hospitalize by Provider. ma2 14:18 Patient left the ED. ph 14:18 Admitted to Tele accompanied by tech, via wheelchair, with chart. ph 14:18 Condition: good 14:18 Instructed on the need for admit. Signatures: Solange Grimm RN RN aa1 Giselle Paulino RN RN ph Leal, Jahala, RN RN jl7 Tess Avitia RN RN ea Alzahri, Mohammad, MD MD ma2 Janice Lara jg7 Corrections: (The following items were deleted from the chart) 07:37 07:30 Nitroglycerin 0.4 mg Sublingual jl7 jl7
--- NOTE | 2019-08-03 08:53 | EDPHYS ---
Physician Documentation [facility] Name: Natan Paulino Sr Age: 59 yrs Sex: Male : 1960 Arrival Date: 08/03/2019 Time: 06:52 Bed 6 Private MD: ED Physician Abram Balbuena HPI: 08/03 08:43 This 59 yrs old Black Male presents to ER via Wheelchair with complaints of Breathing ma2 Difficulty. 08:43 The patient has shortness of breath at rest. Onset: The symptoms/episode began/occurred ma2 gradually, 3 day(s) ago. Associated signs and symptoms: Pertinent positives: chest pain, Pertinent negatives: non-productive cough, productive cough. Severity of symptoms: At their worst the symptoms were mild in the emergency department the symptoms are unchanged. The patient has experienced similar episodes in the past. cp resolved at this time. Historical: - Allergies: 07:08 PENICILLINS; aa1 - Home Meds: 07:08 carvedilol Oral [Active]; Lasix 20 mg Oral tab 1 tab once daily [Active]; lisinopril 10 aa1 mg Oral tab 1 tab once daily [Active]; meloxicam Oral [Active]; Methocarbamol Oral [Active]; metoprolol tartrate 25 mg Oral tab 1 tab 2 times per day [Active]; - PMHx: 07:08 CHF; Gout; Hypertension; osteoarthritis; Pancreatitis; Rheumatoid Arthritis; TIA; aa1 - PSHx: 07:08 None; aa1 - Immunization history:: Flu vaccine is not up to date. - Social history:: Smoking status: Patient/guardian denies using tobacco, Patient/guardian denies using alcohol, street drugs, The patient lives with family. - Ebola Screening: : Patient denies exposure to infectious person Patient denies travel to an Ebola-affected area in the 21 days before illness onset. - Family history:: not pertinent. - Hospitalizations: : No recent hospitalization is reported. ROS: 08:43 Constitutional: Negative for fever, chills, and weight loss. ma2 08:43 All other systems are negative. Exam: 08:43 Constitutional: This is a well developed, well nourished patient who is awake, alert, ma2 and in no acute distress. Chest/axilla: Normal chest wall appearance and motion. Nontender with no deformity. No lesions are appreciated. Cardiovascular: Regular rate and rhythm with a normal S1 and S2. No gallops, murmurs, or rubs. Normal PMI, no JVD. No pulse deficits. Respiratory: Lungs have equal breath sounds bilaterally, clear to auscultation and percussion. No rales, rhonchi or wheezes noted. No increased work of breathing, no retractions or nasal flaring. Abdomen/GI: Soft, non-tender, with normal bowel sounds. No distension or tympany. No guarding or rebound. No evidence of tenderness throughout. MS/ Extremity: Pulses equal, no cyanosis. Neurovascular intact. Full, normal range of motion. Neuro: Awake and alert, GCS 15, oriented to person, place, time, and situation. Cranial nerves II-XII grossly intact. Motor strength 5/5 in all extremities. Sensory grossly intact. Cerebellar exam normal. Normal gait. Vital Signs: 07:08 Pulse 128; Resp 30; Temp 98.3; Pulse Ox 100% on R/A; Weight 95.25 kg; Height 6 ft. 3 aa1 in. (190.50 cm); Pain 8/10; 07:15 BP 175 / 135; ph 07:15 Pain 8/10; jl7 07:30 BP 156 / 119; Pulse 98; Resp 26 S; Pulse Ox 93% on 2 lpm NC; Pain 6/10; jl7 08:34 BP 154 / 112; Pulse 90; Resp 20; Pulse Ox 99% on 2 lpm NC; ph 09:30 BP 164 / 114; Pulse 91; Resp 22; Pulse Ox 97% on R/A; ph 10:30 BP 168 / 120; Pulse 92; Resp 20; Pulse Ox 97% on R/A; ph 11:42 BP 176 / 134; Pulse 95; Resp 18; Pulse Ox 96% on R/A; ph 12:45 BP 175 / 113; Pulse 90; Resp 18; Pulse Ox 98% on R/A; ph 13:16 BP 159 / 101; Pulse 87; Resp 20; Temp 98.0; Pulse Ox 99% on R/A; ph 07:08 Body Mass Index 26.25 (95.25 kg, 190.50 cm) aa1 MDM: 07:14 Patient medically screened. ma2 08:43 Differential diagnosis: Anemia Anxiety Reaction asthma, Myocardial Infarction reactive ma2 airway disease. Data reviewed: vital signs, nurses notes. Data interpreted: quality assurance monitor final: rate is 90 beats/min. Counseling: I had a detailed discussion with the patient and/or guardian regarding: the historical points, exam findings, and any diagnostic results supporting the discharge/admit diagnosis, the presence of at least one elevated blood pressure reading (>120/80) during this emergency department visit, the need for further work-up and treatment in the hospital. 08/03 06:59 Order name: Basic Metabolic Panel [facility] 08/03 06:59 Order name: CBC with Diff [facility] 08/03 06:59 Order name: LFT's [facility] 08/03 06:59 Order name: Magnesium [facility] 08/03 06:59 Order name: NT PRO-BNP [facility] 08/03 06:59 Order name: PT-INR [facility] 08/03 06:59 Order name: Troponin (emerg Dept Use Only) [facility] 08/03 07:00 Order name: Lipase [facility] 08/03 07:15 Order name: Blood Culture Adult (2) ma2 08/03 08:08 Order name: CBC with Automated Diff; Complete Time: 08:35 EDMS 08/03 08:12 Order name: Protime (+INR); Complete Time: 08:35 EDMS 08/03 08:36 Order name: Basic Metabolic Panel; Complete Time: 08:37 EDMS 08/03 08:36 Order name: Liver (Hepatic) Function; Complete Time: 08:37 EDMS 08/03 08:36 Order name: Troponin (Emerg Dept Use Only); Complete Time: 08:37 EDMS 08/03 06:59 Order name: XRAY Chest (1 view) [facility] 08/03 06:59 Order name: EKG; Complete Time: 07:01 [facility] 08/03 06:59 Order name: Cardiac monitoring; Complete Time: 07:16 [facility] 08/03 06:59 Order name: EKG - Nurse/Tech; Complete Time: 07:06 [facility] 08/03 08:36 Order name: NT PRO-BNP; Complete Time: 08:37 EDMS 08/03 08:36 Order name: Magnesium; Complete Time: 08:37 EDMS 08/03 08:36 Order name: Lipase; Complete Time: 08:37 EDMS 08/03 08:42 Order name: RAD; Complete Time: 08:45 EDMS 08/03 11:53 Order name: Diet Heart Healthy; Complete Time: 11:54 ph 08/03 07:00 Order name: IV Saline Lock; Complete Time: 07:06 [facility] 08/03 07:00 Order name: Labs collected and sent; Complete Time: 07:06 [facility] 08/03 07:00 Order name: O2 Per Protocol; Complete Time: 07:06 [facility] 08/03 07:00 Order name: O2 Sat Monitoring; Complete Time: 07:06 [facility] 08/03 07:25 Order name: Labs - recollect needed; Complete Time: 08:32 bd Administered Medications: 07:13 Drug: morphine 4 mg Route: IVP; Site: right forearm; ph 07:40 Follow up: Response: No adverse reaction; Pain is decreased jl7 07:13 Drug: Zofran 4 mg Route: IVP; Site: right forearm; ph 08:00 Follow up: Response: No adverse reaction jl7 07:15 Drug: NS 0.9% 500 ml Route: IV; Rate: 1 bolus; Site: right forearm; jl7 07:15 Drug: Aspirin Chewable Tablet 324 mg Route: PO; jl7 08:00 Follow up: Response: No adverse reaction jl7 07:15 Drug: Nitroglycerin 0.4 mg Route: Sublingual; jl7 07:30 Drug: Nitroglycerin 0.4 mg Route: Sublingual; jl7 09:00 Drug: Lovenox 1 mg/kg Route: Sub-Q; Site: right lower abdomen; ph 10:00 Follow up: Response: No adverse reaction ph 09:00 Drug: Lasix 40 mg Route: IVP; Site: right forearm; ph 10:00 Follow up: Response: No adverse reaction ph Disposition: 08:43 Critical Care:. ma2 Disposition: 08/03/19 08:51 Hospitalization ordered by Thomas Boyle for Inpatient Admission. Preliminary diagnosis are Non-ST elevation (NSTEMI) myocardial infarction, Acute combined systolic (congestive) and diastolic (congestive) heart failure. - Bed requested for Telemetry/MedSurg (Inpatient). - Status is Inpatient Admission. ph - Condition is Stable. - Problem is new. - Symptoms are unchanged. UTI on Admission? No Critical care time excluding procedures: 08:43 Critical care time: Bedside Care: 20 minutes, Consultation: 10 minutes, Family ma2 Intervention: 5 minutes. Total time: 35 minutes Signatures: Dispatcher [employer] EDMS Leola Zapien Alissa, RN RN aa1 Guy Chaney PA PA jmm Smirch, Shelby, RN RN Giselle Paulino RN RN [facility], RADHIKA Richard RN jl7 Abram Balbuena MD MD ma2 Corrections: (The following items were deleted from the chart) 09:46 08:51 Hospitalization Ordered by Anton Hayes DO for Inpatient Admission. Preliminary me2 diagnosis is Non-ST elevation (NSTEMI) myocardial infarction. Bed requested for Telemetry/MedSurg (Inpatient). Status is Inpatient Admission. Condition is Stable. Problem is new. Symptoms are unchanged. UTI on Admission? No. ma2 09:46 09:46 08/03/2019 08:51 Hospitalization Ordered by Thomas Boyle for Inpatient me2 Admission. Preliminary diagnosis is Non-ST elevation (NSTEMI) myocardial infarction. Bed requested for Telemetry/MedSurg (Inpatient). Status is Inpatient Admission. Condition is Stable. Problem is new. Symptoms are unchanged. UTI on Admission? No. ma2 13:13 09:46 08/03/2019 08:51 Hospitalization Ordered by Thomas Boyle for Inpatient ss Admission. Preliminary diagnosis is Non-ST elevation (NSTEMI) myocardial infarction; Acute combined systolic (congestive) and diastolic (congestive) heart failure. Bed requested for Telemetry/MedSurg (Inpatient). Status is Inpatient Admission. Condition is Stable. Problem is new. Symptoms are unchanged. UTI on Admission? No. ma2 14:18 13:13 08/03/2019 08:51 Hospitalization Ordered by Thomas Boyle for Inpatient Admission. Preliminary diagnosis is Non-ST elevation (NSTEMI) myocardial infarction; Acute combined systolic (congestive) and diastolic (congestive) heart failure. Bed requested for Telemetry/MedSurg (Inpatient). Status is Inpatient Admission. Condition is Stable. Problem is new. Symptoms are unchanged. UTI on Admission? No. ss
[2019-08-03] MEDS ORDERED: FUROSEMIDE 40 MG/4 ML VIAL ONE (08:55)
[2019-08-03] MEDS ORDERED: ENOXAPARIN 100 MG/ML SYR SQ ONE (08:55)
--- NOTE | 2019-08-03 10:40 | EKG ---
Test Date: 2019-08-03 Test Time: 07:00:30 Foundation Coordinator: NEREYDA MEASUREMENT RESULTS: Intervals: Rate: 128 MT: 130 QRSD: 136 QT: 348 QTc: 508 [place]: P: 72 MT: 130 QRS: -47 T: 102 INTERPRETIVE STATEMENTS: Sinus tachycardia with occasional premature ventricular complexes and fusion complexes Possible Left atrial enlargement Left bundle branch block Abnormal ECG Compared to ECG 04/24/2019 16:22:28 Fusion complex(es) now present Ventricular premature complex(es) now present Left bundle-branch block now present Sinus rhythm no longer present Atrial premature complex(es) no longer present Intraventricular conduction delay no longer present Electronically Signed On 08-03-19 10:39:49 MANAGER PHOTOGRAPHY by Vern Naranjo
[2019-08-03] MEDS ORDERED: NITROGLYCERIN 0.4 MG/TAB SL PRN (13:46)
[2019-08-03 14:57] LABS: Troponin I 1.1 ng/mL (0.0-0.045)
[2019-08-03] MEDS: ACETAMINOPHEN 325 MG TABLET PO PRN ×2 (15:07→20:42)
[2019-08-03] MEDS: lisinopriL 20 MG TAB PO SCH (15:07)
[2019-08-03] MEDS: guaiFENesin 100 MG/5 ML UCUP PO PRN ×2 (15:07→20:42)
[2019-08-03 15:13] VITALS: BMI 26.9
[2019-08-03] MEDS: carvediloL 12.5 MG TAB PO SCH (17:11)
--- NOTE | 2019-08-03 18:01 | P.HP ---
Certification for Inpatient Patient admitted to: Observation With expected LOS: <2 Midnights Practitioner: I am a practitioner with admitting privileges, knowledge of patient current condition, hospital course, and medical plan of care. Services: Services provided to patient in accordance with Admission requirements found in Title 42 Section 412.3 of the Code of Federal Regulations Patient History Date of Service: 08/03/19 Reason for admission: Chest pain and palpitation History of Present Illness: 59-year-old gentleman with a history chronic systolic heart failure, chronic alcoholism presents the ED with the complaint of chest pain and palpitations. He reports anterior chest pain of onset a couple of days ago, maximum intensity rated at 8/10, nonradiating, associated with palpitations. No relieving or aggravating factors. Patient stated he quit drinking about 2 months ago after a discharge from his previous hospitalization which required ICU placement. In the ED, patient troponin noted to be elevated to 1. EKG reported sinus tachycardia with PVCs and LBBB. Chest x-ray demonstrated no acute disease. Patient is placed under observation for chest pain rule out. Allergies Penicillins Allergy (Verified 08/03/19 14:41) Hives/Rash Home Medications: Atorvastatin Calcium [Lipitor] 40 mg PO BEDTIME #30 tab 08/04/19 Furosemide [Lasix*] 40 mg PO DAILY #30 tab 08/04/19 Nitroglycerin [Nitrostat*] 0.4 mg SL UD PRN #30 tab 08/04/19 allopurinoL [Zyloprim*] 300 mg PO DAILY PRN #30 tab 08/04/19 carvediloL [Coreg*] 12.5 mg PO BID 6AM 6PM #60 tab 08/04/19 guaiFENesin [Robitussin 100MG/5ML*] 5 ml PO QID #1 bottle 08/04/19 lisinopriL [Lisinopril] 20 mg PO DAILY #30 tablet 08/04/19 - Past Medical/Surgical History Has patient received pneumonia vaccine in the past: No Diabetic: No -: hypertension -: irregular heart beat -: PANCREATITIS -: TIA -: CHF -: Gout - Family History Father -: Hypertension, Lung disease, Cancer, Liver disease Notes: asbestos. exposure Mother Notes: mom is healthy - Social History Smoking Status: Never smoker Alcohol use: No CD- Drugs: No Caffeine use: Yes Place of Residence: Home Review of Systems Other: General: No fever, no malaise, no unintentional weight loss. Eyes: No eye discharge, Respiratory: No cough. CVS: No lightheadedness. GI: No abdominal pain, no nausea no vomit, no constipation, no diarrhea. Genitourinary: No dysuria, no urinary frequency, no incontinence, no hematuria. Musculoskeletal: No joint pains, or joint swelling, no gait instability. Neurology: No headache, no asymmetric, weakness, no problem with swallowing. Except as documented, all other systems reviewed and negative. Physical Examination - Vital Signs Temperature: 97.1 F Blood Pressure: 166/114 Pulse: 95 Respirations: 19 Pulse Ox (%): 98 - Physical Exam General: Alert, In no apparent distress, Oriented x3 HEENT: Atraumatic, Normocephalic, Mucous membr. moist/pink Neck: Supple, JVD not distended Respiratory: Clear to auscultation bilaterally, Normal air movement Cardiovascular: Edema (Trace bilateral lower extremity pitting edema) Gastrointestinal: Normal bowel sounds, Soft and benign, No tenderness Musculoskeletal: No swelling Integumentary: No rashes Neurological: Normal speech, Normal strength at 5/5 x4 extr - Studies Laboratory Data (last 24 hrs) 08/03/19 07:58: PT 11.7, INR 0.99 08/03/19 07:58: WBC 5.6, Hgb 16.1, Hct 47.8, Plt Count 151 L 08/03/19 07:58: Sodium 142, Potassium 3.8, BUN 15, Creatinine 1.58 H, Glucose 101, Magnesium 1.7 L, Total Bilirubin 0.9, AST 81 H, ALT 47, Alkaline Phosphatase 106, Lipase 116 Assessment and Plan - Problems (Diagnosis) (1) NSTEMI (non-ST elevated myocardial infarction) Onset Date: 03/08/17 Status: Acute (2) Chronic systolic heart failure Status: Acute (3) HTN (hypertension) Onset Date: 11/01/16 Status: Chronic Qualifiers: Hypertension type: essential hypertension Qualified Code(s): I10 - Essential (primary) hypertension (4) Chronic kidney disease, stage 3 Status: Acute - Plan Placed under observation. Continue to trend troponin. History of noncompliance to medications and physician followups. Patient started on full-dose Lovenox, aspirin, Coreg and lipitor. Cardiology Consult. Obtain echocardiogram. Aggressive blood pressure control. Hydralazine p.r.n. for BP spikes. - Advance Directives Does patient have a Living Will: Yes Does patient have a Durable POA for Healthcare: Yes
[2019-08-03] MEDS: ACETYLCYST 20% 800 MG/4 ML VIAL PO SCH (20:45)
--- NOTE | 2019-08-03 20:59 | CON ---
History Of Present Illness: Mr. Paulino is 59, came to the hospital with chest pain. He has enzymes th at are abnormal. His EKG does not show any significant differences compared to EKGs from 3 months ag o. Mr. Paulino has been in our hospital numerous times. He has a problem with severe alcohol abuse, al though he says he has been abstinent from alcohol since April 2019. He has had numerous episodes of pancreatitis, alcohol induced cardiomyopathy. When he was sent home from the hospital in , he was given several medicines for his heart. He stopped taking all of those. Social History: He claims he used no alcohol. No illegal drugs. No tobacco use. Allergies: HE REPORTS ALLERGIES TO PENICILLIN, BUT NO X-RAY CONTRAST ALLERGIES. Physical Examination: General: He is 6 feet 3 inches tall, 215 pounds, body mass index 27. HEENT: Within normal limits. Lungs: Clear. Heart: Within normal limits. Abdomen: Soft. No tenderness, mass, guarding, rigidity. Extremities: Palpable distal pulses. No cyanosis, clubbing, or edema. Diagnostic Studies: His EKG continues to show a left bundle branch block, sinus tachycardia. Impression And Plan: I am going to recommend that we try to get him on a low-dose beta-medardo, get his heart rate lower, blood pressure lower to help his heart failure. In the past, he has had an eje ction fraction in the 20s and that we do a cardiac cath tomorrow. I suspect this is not actually an acute coronary syndrome and that he may indeed have normal coronary arteries. If that is true, we re ally need to know and the best way to know is to do the cardiac cath. It will be done by Dr. Mcfadden. The patient seems to understand the procedure, its potential benefits, indicati ons, risks and he agrees to proceed. RAHEL/TERRELL Voice ID: [id number] Report ID: [id number]
[2019-08-03] MEDS ORDERED: ENOXAPARIN 100 MG/ML SYR SQ SCH (21:00)
[2019-08-03] MEDS ORDERED: ATORVASTATIN 40 MG TAB PO SCH (21:00)
[2019-08-04] MEDS: lisinopriL 20 MG TAB PO SCH (05:14)
[2019-08-04] MEDS: carvediloL 12.5 MG TAB PO SCH ×2 (05:15→17:55)
[2019-08-04] MEDS: ACETYLCYST 20% 800 MG/4 ML VIAL PO SCH (05:16)
[2019-08-04 05:37] LABS: Absolute Lymphocytes (CBC) 1.2 K/uL (0.7-4.9); Basophils % 0.7 % (0-1.3); Hematocrit 45.8 % (39.6-49.0); Lymphocytes % 17.9 % (15.3-44.8); MPV 9.4 fL (7.6-11.3); RBC Red Blood Cell Count 5.29 M/uL (4.33-5.43)
[2019-08-04 05:58] LABS: Potassium 4.1 mmol/L (3.5-5.1)
[2019-08-04] MEDS ORDERED: ASPIRIN EC 81 MG TAB PO SCH (09:00)
[2019-08-04] MEDS ORDERED: NA CHLORIDE 0.9% 500 ML ONE (11:34)
[2019-08-04] MEDS ORDERED: HEPA 1000U/500MLS 1,000 UNIT/500 ML BAG IV ONE (12:00)
[2019-08-04] MEDS ORDERED: LIDOCAINE 1% 20 ML MDV ONE (12:00)
--- NOTE | 2019-08-04 13:05 | P.PN ---
Subjective Date of Service: 08/04/19 Chief Complaint: Chest pain and palpitation Patient reports cough worse with lying down and wheezing if he lays on his left side. He denies any chest pain today. His blood pressure readings are better today. Physical Examination - Vital Signs Temperature: 97.7 F Blood Pressure: 144/95 Pulse: 71 Respirations: 18 Pulse Ox (%): 99 - Physical Exam General: Alert, In no apparent distress, Oriented x3 HEENT: Mucous membr. moist/pink Neck: Supple, JVD not distended Respiratory: Crackles/rales (Bibasilar rales) Cardiovascular: No edema, Regular rate/rhythm, Normal S1 S2 Gastrointestinal: Soft and benign, Non-distended, No tenderness Musculoskeletal: No swelling Integumentary: No rashes Neurological: Normal speech, Normal strength at 5/5 x4 extr Assessment And Plan - Current Problems (Diagnosis) (1) NSTEMI (non-ST elevated myocardial infarction) Onset Date: 03/08/17 Current Visit: No Status: Acute (2) Chronic systolic heart failure Current Visit: Yes Status: Acute (3) HTN (hypertension) Onset Date: 11/01/16 Current Visit: No Status: Chronic Qualifiers: Hypertension type: essential hypertension Qualified Code(s): I10 - Essential (primary) hypertension (4) Chronic kidney disease, stage 3 Current Visit: Yes Status: Acute - Plan Patient seen by cardiology-Dr. Naranjo. He is planned for cardiac catheterization today. Lovenox on hold. Continue aspirin, Coreg and lipitor. Follow echocardiogram. Continue Coreg for blood pressure control Hydralazine p.r.n. is available for BP spikes. Monitor renal function after cardiac catheterization given baseline elevated creatinine. Noted elevated BNP. The patient is also complaining of cough worse with supine position. I suspect developing vascular congestion. Patient may require Lasix along the way and would recommend not to be given before cardiac catheterization.
--- NOTE | 2019-08-04 13:41 | ECHO ---
HEIGHT: 6 ft 3 in WEIGHT: 215 lb 0 oz DATE OF STUDY: 08/04/[address]: junito lynn 2-DIMENSIONAL: YES M.MODE: YES DOPPLER: YES COLOR FLOW: YES TDS: NO PORTABLE: NO DEFINITY: NO BUBBLE STUDY: NO DIAGNOSIS: ELEVATED TROPONIN CARDIAC HISTORY: CATHERIZATION: NO SURGERY: NO PROSTHETIC VALVE: NO PACEMAKER: NO MEASUREMENTS (cm) DIASTOLIC (NORMALS) SYSTOLIC (NORMALS) IVSd 1.1 (0.6-1.2) LA Diam 4.8 (1.9-4.0) LVEF 30% LVIDd 5.7 (3.5-5.7) LVIDs 5.0 (2.0-3.5) %FS 12% LVPWd 1.2 (0.6-1.2) Ao Diam 3.0 (2.0-3.7) 2 DIMENSIONAL ASSESSMENT: RIGHT ATRIUM: NORMAL LEFT ATRIUM: DILATED RIGHT VENTRICLE: NORMAL LEFT VENTRICLE: DILATED TRICUSPID VALVE: NORMAL MITRAL VALVE: NORMAL PULMONIC VALVE: NORMAL AORTIC VALVE: NORMAL PERICARDIAL EFFUSION: NONE AORTIC ROOT: NORMAL LEFT VENTRICULAR WALL MOTION: SEVERE GLOBAL HYPOKINESIS. LEFT VENTRICULAR EJECTION FRACTION 30%. DOPPLER/COLOR FLOW: MILD MITRAL AND TRICUSPID REGURGITATION. COMMENTS: SEVERE GLOBAL HYPOKINESIS. LEFT VENTRICULAR EJECTION FRACTION 30%. MILD MITRAL AND TRICUSPID REGURGITATION. TECHNOLOGIST: Gena RIZVI
[2019-08-04] MEDS ORDERED: FENTANYL CITR 100 MCG/2 ML ONE (13:46)
[2019-08-04] MEDS ORDERED: ATROPINE SULF 1 MG/10 ML SYR IV ONE (13:46)
[2019-08-04] MEDS ORDERED: NA CHLORIDE 0.9% 0 ML ONE (13:46)
[2019-08-04] MEDS ORDERED: MIDAZOLAM HCL 2 MG/2 ML INJ ONE (13:46)
[2019-08-04 15:30] VITALS: TEMP 97.1
[2019-08-04] MEDS: guaiFENesin 100 MG/5 ML UCUP PO PRN (16:45)
--- NOTE | 2019-08-04 19:20 | P.DS ---
Admission Date: 08/03/19 Discharge Date: 08/04/19 Disposition: ROUTINE DISCHARGE Discharge Condition: FAIR Reason for Admission: Chest pain and palpitation - Problems (1) NSTEMI (non-ST elevated myocardial infarction) Onset Date: 03/08/17 Current Visit: No Status: Acute (2) Chronic systolic heart failure Current Visit: Yes Status: Acute (3) HTN (hypertension) Onset Date: 11/01/16 Current Visit: No Status: Chronic Qualifiers: Hypertension type: essential hypertension Qualified Code(s): I10 - Essential (primary) hypertension (4) Chronic kidney disease, stage 3 Current Visit: Yes Status: Acute Brief History of Present Illness: 59-year-old gentleman with a history chronic systolic heart failure, chronic alcoholism presents the ED with the complaint of chest pain and palpitations. He reported anterior chest pain of onset a couple of days ago, maximum intensity rated at 8/10, nonradiating, associated with palpitations. No relieving or aggravating factors. Patient stated he quit drinking alcohol about 2 months ago after discharge from his previous hospitalization which required ICU placement. In the ED, patient troponin noted to be elevated to 1.0. EKG reported sinus tachycardia with PVCs and LBBB. Chest x-ray demonstrated no acute disease. Patient was placed under observation for chest pain rule out. Hospital Course: Troponin trended was stable. She was started on full-dose Lovenox for NSTEMI, Lipitor and Coreg. Patient was evaluated by cardiology team. He underwent cardiac catheterization and did not require any intervention. Echocardiogram reported EF of 30% and severe global hypokinesia. Patient was asymptomatic after hospitalization. He was getting Coreg 12.5 mg b.i.d. There was a slight increase in serum creatinine to 2.0. He will need his creatinine checked during follow up with cardiology within 1 week. The patient has been asymptomatic and deemed clinically stable for discharge per cardiology. He has been given refills for his medications. Compliance to follow ups and medications has been re-emphasized. Vital Signs/Physical Exam: Temp Pulse Resp BP Pulse Ox 97.1 F 73 18 141/96 H 98 08/04/19 16:00 08/04/19 17:55 08/04/19 16:00 08/04/19 17:55 08/04/19 16:00 General: Alert, In no apparent distress, Oriented x3 HEENT: Mucous membr. moist/pink Neck: Supple Respiratory: Clear to auscultation bilaterally, Normal air movement Cardiovascular: No edema, Regular rate/rhythm, Normal S1 S2 Gastrointestinal: Soft and benign, No tenderness Laboratory Data at Discharge: WBC 6.5 K/uL (4.3-10.9) D 08/04/19 05:20 Hgb 15.2 g/dL (13.6-17.9) 08/04/19 05:20 Hct 45.8 % (39.6-49.0) 08/04/19 05:20 Plt Count 153 K/uL (152-406) 08/04/19 05:20 PT 11.7 SECONDS (9.5-12.5) 08/03/19 07:58 INR 0.99 08/03/19 07:58 Sodium 140 mmol/L (136-145) 08/04/19 05:20 Potassium 4.1 mmol/L (3.5-5.1) 08/04/19 05:20 BUN 19 mg/dL (7-18) H 08/04/19 05:20 Creatinine 2.04 mg/dL (0.55-1.3) H 08/04/19 05:20 Glucose 82 mg/dL (74-106) 08/04/19 05:20 Magnesium 1.7 mg/dL (1.8-2.4) L 08/03/19 07:58 Total Bilirubin 0.9 mg/dL (0.2-1.0) 08/03/19 07:58 AST 81 U/L (15-37) H 08/03/19 07:58 ALT 47 U/L (12-78) 08/03/19 07:58 Alkaline Phosphatase 106 U/L (45-117) 08/03/19 07:58 Troponin I 1.10 ng/mL (0.0-0.045) H* 08/03/19 14:20 Triglycerides 129 mg/dL (<150) 08/03/19 14:20 Cholesterol 203 mg/dL (<200) H 08/03/19 14:20 HDL Cholesterol 88 mg/dL (40-60) H 08/03/19 14:20 Cholesterol/HDL Ratio 2.31 08/03/19 14:20 Lipase 116 U/L (73-393) 08/03/19 07:58 Home Medications: Atorvastatin Calcium [Lipitor] 40 mg PO BEDTIME #30 tab 08/04/19 Furosemide [Lasix*] 40 mg PO DAILY #30 tab 08/04/19 Nitroglycerin [Nitrostat*] 0.4 mg SL UD PRN #30 tab 08/04/19 allopurinoL [Zyloprim*] 300 mg PO DAILY PRN #30 tab 08/04/19 carvediloL [Coreg*] 12.5 mg PO BID 6AM 6PM #60 tab 08/04/19 guaiFENesin [Robitussin 100MG/5ML*] 5 ml PO QID #1 bottle 08/04/19 lisinopriL [Lisinopril] 20 mg PO DAILY #30 tablet 08/04/19 New Medications: allopurinoL [Zyloprim*] 300 mg PO DAILY PRN #30 tab PRN Reason: Pain Scale 5-7 (Moderate) Atorvastatin Calcium [Lipitor] 40 mg PO BEDTIME #30 tab carvediloL [Coreg*] 12.5 mg PO BID 6AM 6PM #60 tab Furosemide [Lasix*] 40 mg PO DAILY #30 tab guaiFENesin [Robitussin 100MG/5ML*] 5 ml PO QID #1 bottle lisinopriL [Lisinopril] 20 mg PO DAILY #30 tablet Nitroglycerin [Nitrostat*] 0.4 mg SL UD PRN #30 tab PRN Reason: Pain Scale 2-4 (Mild) Diet: AHA Activity: Ad pelon Followup: Ludin Mcfadden MD [ACTIVE - CAN ADMIT] - 1 Week
[2019-08-04 19:28] VITALS: O2SAT 98
--- NOTE | 2019-08-05 01:08 | OP ---
Date of Procedure: 08/04/2019 Surgeon: Ludin Mcfadden MD Subassembly Assembler: Vera Sam. Procedure Performed: Left heart catheterization, selective coronary arteriogram. Indications: Cardiomyopathy. History Of Present Illness: Mr. Paulino is a 59-year-old black male with known history of ejection frac tion of 25% with recurrent admission to the hospital for chest pain and CHF. Catheterization was dennis nned for today. He was brought to the entry level lab technician and prepped and draped in routine sterile fashion and given Versed for IV sedation. 6-Yemeni sheath was introduced in the right common femoral artery suc cessfully. Ju catheter 6-Yemeni left and right were used to do the diagnostic catheterization. Patient was found to have perfectly normal coronaries. Complications: There were no complications. Blood Loss: 5 mL. Anesthesia: Total conscious sedation was 30 minutes. 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 Plan: For medical therapy. BIANCA/TERRELL Voice ID: [id number] Report ID: [id number]
[2019-08-12 13:35] VITALS: BP 166/114
== END 2019-08-04 19:53 | disposition home or self-care (01) ==
LOC: ER 06:50 → ERHOLD 12:46 → 2ND 14:09
PROVIDERS: ADMIT Internal Medicine; ATTEND Internal Medicine
DX: I21.4 Non-ST elevation (NSTEMI) myocardial infarction (principal); I13.0 Hypertensive heart and chronic kidney disease with heart failure and stage 1 through stage 4 chronic kidney disease, or unspecified chronic kidney disease; I50.22 Chronic systolic (congestive) heart failure; N18.3 Chronic kidney disease, stage 3 (moderate); I42.0 Dilated cardiomyopathy; Z86.73 Personal history of transient ischemic attack (TIA), and cerebral infarction without residual deficits
CPT/HCPCS: 93005; 93306; 87040 ×2; 85025 ×2; 80048 ×2; 36415; 83735; 85610; 80061; 80076; 84484 ×2; 83690; 83880; 71045; 93454; 94760 ×3; 96375; 96372; 96374; 99285; C1893; C1760; J1940; J2250; J3010; J1650; G0378 ×4; J7040 ×2; J2405; J0583

== ENCOUNTER 2019-08-15 06:49 | Inpatient (IN) | payer MEDICARE ==
[2019-08-15] MEDS ORDERED: MORPHINE 4 MG/ML SYR ONE ×3 (07:14→10:08)
[2019-08-15] MEDS ORDERED: NA CHLORIDE 0.9% 2,000 ML ONE (07:15)
[2019-08-15] MEDS ORDERED: ONDANSETRON 4 MG/2 ML VIAL ONE ×2 (07:16→10:08)
[2019-08-15 07:39] LABS: Absolute Lymphocytes (CBC) 1.3 K/uL (0.7-4.9); Hematocrit 52.8 % (39.6-49.0); Lymphocytes % 14.6 % (15.3-44.8); MPV 9.3 fL (7.6-11.3); RBC Red Blood Cell Count 6.14 M/uL (4.33-5.43)
[2019-08-15] MEDS ORDERED: FAMOTIDINE 20 MG/2 ML VIAL IV ONE (07:45)
[2019-08-15 07:52] LABS: Protime INR 0.96
[2019-08-15 08:04] LABS: Albumin 3.1 g/dL (3.4-5.0); Bilirubin Direct 0.6 mg/dL (0-0.2); Bilirubin Total 1.5 mg/dL (0.2-1.0); Magnesium 1.9 mg/dL (1.8-2.4); Potassium 4.1 mmol/L (3.5-5.1); Protein, Total 9.1 g/dL (6.4-8.2)
[2019-08-15 08:06] LABS: Troponin (Emerg Dept Use Only) 1.31 ng/mL (0.0-0.045)
--- NOTE | 2019-08-15 08:40 | ER ---
Nurse's Notes [facility] Name: Natan Paulino Sr Age: 59 yrs Sex: Male : 1960 Arrival Date: 08/15/2019 Time: 06:52 Bed 14 Private MD: Gloria Key Diagnosis: Acute pancreatitis;Cardiomyopathy;Unspecified kidney failure;Essential (primary) hypertension Presentation: 08/15 07:01 Presenting complaint: Patient states: "I think I have pancreatitis again". Pt states it tl2 is similar to previous episode. Pain in LUQ x3 days with vomiting. Pt is guarding and diaphoretic in triage. Transition of care: patient was not received from another setting of care. Onset of symptoms was August 12, 2019. Risk Assessment: Do you want to hurt yourself or someone else? Patient reports no desire to harm self or others. Initial Sepsis Screen: Does the patient meet any 2 criteria? HR > 90 bpm. Does the patient have a suspected source of infection? No. Patient's initial sepsis screen is negative. Care prior to arrival: None. 07:01 Method Of Arrival: Ambulatory tl2 07:01 Acuity: NINO 2 tl2 Triage Assessment: 07:05 General: Appears distressed, uncomfortable, Behavior is anxious, restless. Pain: tl2 Complains of pain in epigastric area and left upper quadrant Pain currently is 9 out of 10 on a pain scale. Quality of pain is described as sharp. Pain: Noted to be guarding, moaning, restless. Neuro: Level of Consciousness is awake, alert, obeys commands, Oriented to person, place, time, situation. Cardiovascular: Denies chest pain. Respiratory: Airway is patent Respiratory effort is even, unlabored, Respiratory pattern is regular, symmetrical. GI: Pt is actively vomiting Reports upper abdominal pain, nausea, vomiting. : No signs and/or symptoms were reported regarding the genitourinary system. Derm: Skin is diaphoretic, Skin is normal. Historical: - Allergies: 07:05 PENICILLINS; tl2 - Home Meds: 07:05 carvedilol Oral [Active]; Lasix 20 mg Oral tab 1 tab once daily [Active]; lisinopril 10 tl2 mg Oral tab 1 tab once daily [Active]; meloxicam Oral [Active]; Methocarbamol Oral [Active]; metoprolol tartrate 25 mg Oral tab 1 tab 2 times per day [Active]; - PMHx: 07:05 CHF; Gout; Hypertension; osteoarthritis; Pancreatitis; Rheumatoid Arthritis; TIA; tl2 - PSHx: 07:05 Heart stents; tl2 - Immunization history:: Adult Immunizations up to date. - Social history:: Smoking status: Patient/guardian denies using tobacco. - Ebola Screening: : No symptoms or risks identified at this time. - Family history:: not pertinent. Screenin:09 Abuse screen: Denies threats or abuse. Nutritional screening: No deficits noted. tl2 Tuberculosis screening: No symptoms or risk factors identified. Fall Risk None identified. Assessment: 07:57 Reassessment: Notified Alex in [place] via telephone that patient completed PO contrast. ae4 08:57 Reassessment: Patient appears in no apparent distress at this time. Patient and/or rb1 family updated on plan of care and expected duration. Pain level reassessed. Patient is alert, oriented x 3, equal unlabored respirations, skin warm/dry/pink. 09:50 Reassessment: Patient reports increased pain, provider notified, new orders received. ae4 11:22 Reassessment: Awaiting for Dr. Casas to place admission orders so patient can be ss transferred to TELE floor. Vital Signs: 07:05 BP 187 / 135; Pulse 115; Resp 20; Temp 97.9(O); Pulse Ox 100% on R/A; Weight 102.06 kg; tl2 Height 6 ft. 3 in. (190.50 cm); Pain 9/10; 08:07 BP 171 / 125; Pulse 88; Resp 19; Pulse Ox 99% on R/A; ae4 09:07 BP 161 / 127; Pulse 86; Resp 20; Pulse Ox 100% on R/A; rb1 09:55 BP 174 / 136; Pulse 89; Resp 23; Pulse Ox 99% on R/A; ae4 13:07 BP 179 / 128; Pulse 82; Resp 20; Temp 98.0(O); Pulse Ox 100% on R/A; Pain 6/10; rb1 13:30 BP 161 / 112; Pulse 90; Resp 19; Pulse Ox 100% on R/A; ae4 07:05 Body Mass Index 28.12 (102.06 kg, 190.50 cm) tl2 ED Course: 06:52 Patient arrived in ED. es 06:53 Brandon Masterson MD is Attending Physician. deejay 06:53 Gloria Key is Private Physician. es 07:03 Triage completed. tl2 07:05 Arm band placed on right wrist. tl2 07:08 Coretta Rodriguez, RADHIKA is Primary Nurse. rb1 07:09 Patient has correct armband on for positive identification. Placed in gown. Bed in low tl2 position. Call light in reach. Side rails up X 1. 07:09 Inserted saline lock: 20 gauge in right antecubital area, using aseptic technique. tl2 Blood collected. placed by RADHIKA Moreno. 08:14 XRAY Chest (1 view) In Process Unspecified. EDMS 08:37 Kiley Bowden MD is Hospitalizing Provider. deejay 09:27 Ultrasound completed. Patient tolerated well. sg3 09:[address] via wheelchair. nj 09:29 US Abdomen Limited In Process Unspecified. EDMS 09:29 CT completed. Patient tolerated procedure well. Patient moved back from CT. nj 09:31 Abdomen In Process Unspecified. EDMS 13:43 No provider procedures requiring assistance completed. Patient admitted, IV remains in ae4 place. Administered Medications: 07:15 Drug: NS 0.9% 1000 ml Route: IV; Rate: 1 bolus; Site: right antecubital; ae4 08:54 Follow up: IV Status: Completed infusion rb1 09:43 Follow up: IV Status: Completed infusion; IV Intake: 1000ml ae4 07:18 Drug: Zofran 4 mg Route: IVP; Site: right antecubital; ae4 07:40 Follow up: Response: Nausea is decreased ae4 07:20 Drug: morphine 4 mg Route: IVP; Site: right antecubital; ae4 07:39 Follow up: Response: Pain is decreased; RASS: Alert and Calm (0) ae4 07:38 Not Given (Physician Discretion): NS 0.9% 1000 ml IV at 1 bolus Per protocol; 1000 mL ae4 bolus 07:49 Drug: Pepcid 20 mg Route: IVP; Site: right antecubital; ae4 08:03 Follow up: Response: No adverse reaction rb1 09:07 Drug: NS 0.9% 1000 ml Route: IV; Rate: 125 ml/hr; Site: right antecubital; rb1 10:08 Drug: Zofran 4 mg Route: IVP; Site: right antecubital; ae4 10:10 Drug: morphine 4 mg Route: IVP; Site: right antecubital; ae4 Intake: 09:43 IV: 1000ml; Total: 1000ml. ae4 Outcome: 08:38 Decision to Hospitalize by Provider. [facility] 13:43 Patient left the ED. rb1 19:12 Admitted to Med/surg accompanied by tech, family with patient, via wheelchair, room ae4 201, with chart, Report called to Bradly GARRIDO 19:12 Condition: stable 19:12 Instructed on the need for admit, Demonstrated understanding of instructions. Signatures: Dispatcher [employer] EDMS Brandon Masterson MD MD cha Salyer, Valery Price, RN RN ss Coretta Rodriguez RN RN rb1 Chelsea Benjamin RN RN 2 Demian Saucedo Sarah [facility] Geovany Mills RN RN ae4 Corrections: (The following items were deleted from the chart) 09:43 09:42 IV Status: Completed infusion; IV Intake: 1000ml ae4 ae4
--- NOTE | 2019-08-15 08:41 | EDPHYS ---
Physician Documentation [facility] Name: Natan Paulino Sr Age: 59 yrs Sex: Male : 1960 Arrival Date: 08/15/2019 Time: 06:52 Bed 14 Private MD: Gloria Key ED Physician Brandon Masterson HPI: 08/15 07:51 This 59 yrs old Black Male presents to ER via Ambulatory with complaints of Vomiting, deejay Abdominal Pain. 07:51 The patient presents to the emergency department with nausea, vomiting. Onset: The deejay symptoms/episode began/occurred 3 day(s) ago. Possible causes: unknown. The symptoms are aggravated by movement, pressure, food . Associated signs and symptoms: The patient has no apparent associated signs or symptoms. The patient has not experienced similar symptoms in the past. Historical: - Allergies: 07:05 PENICILLINS; tl2 - Home Meds: 07:05 carvedilol Oral [Active]; Lasix 20 mg Oral tab 1 tab once daily [Active]; lisinopril 10 tl2 mg Oral tab 1 tab once daily [Active]; meloxicam Oral [Active]; Methocarbamol Oral [Active]; metoprolol tartrate 25 mg Oral tab 1 tab 2 times per day [Active]; - PMHx: 07:05 CHF; Gout; Hypertension; osteoarthritis; Pancreatitis; Rheumatoid Arthritis; TIA; tl2 - PSHx: 07:05 Heart stents; tl2 - Immunization history:: Adult Immunizations up to date. - Social history:: Smoking status: Patient/guardian denies using tobacco. - Ebola Screening: : No symptoms or risks identified at this time. - Family history:: not pertinent. ROS: 07:51 Constitutional: Negative for fever, chills, and weight loss, Eyes: Negative for injury, deejay pain, redness, and discharge, ENT: Negative for injury, pain, and discharge, Neck: Negative for injury, pain, and swelling, Cardiovascular: Negative for chest pain, palpitations, and edema, Respiratory: Negative for shortness of breath, cough, wheezing, and pleuritic chest pain, Back: Negative for injury and pain, : Negative for injury, bleeding, discharge, and swelling, MS/Extremity: Negative for injury and deformity, Skin: Negative for injury, rash, and discoloration, Neuro: Negative for headache, weakness, numbness, tingling, and seizure, Psych: Negative for depression, anxiety, suicide ideation, homicidal ideation, and hallucinations, Allergy/Immunology: Negative for hives, rash, and allergies, Endocrine: Negative for neck swelling, polydipsia, polyuria, polyphagia, and marked weight changes, Hematologic/Lymphatic: Negative for swollen nodes, abnormal bleeding, and unusual bruising. 07:51 Abdomen/GI: Positive for abdominal pain, of the epigastric area, right upper quadrant and left upper quadrant. Exam: 07:51 Constitutional: This is a well developed, well nourished patient who is awake, alert, deejay and in no acute distress. Head/Face: Normocephalic, atraumatic. Eyes: Pupils equal round and reactive to light, extra-ocular motions intact. Lids and lashes normal. Conjunctiva and sclera are non-icteric and not injected. Cornea within normal limits. Periorbital areas with no swelling, redness, or edema. ENT: Nares patent. No nasal discharge, no septal abnormalities noted. Tympanic membranes are normal and external auditory canals are clear. Oropharynx with no redness, swelling, or masses, exudates, or evidence of obstruction, uvula midline. Mucous membranes moist. Neck: Trachea midline, no thyromegaly or masses palpated, and no cervical lymphadenopathy. Supple, full range of motion without nuchal rigidity, or vertebral point tenderness. No Meningismus. Chest/axilla: Normal chest wall appearance and motion. Nontender with no deformity. No lesions are appreciated. Respiratory: Lungs have equal breath sounds bilaterally, clear to auscultation and percussion. No rales, rhonchi or wheezes noted. No increased work of breathing, no retractions or nasal flaring. Abdomen/GI: Soft, non-tender, with normal bowel sounds. No distension or tympany. No guarding or rebound. No evidence of tenderness throughout. Back: No spinal tenderness. No costovertebral tenderness. Full range of motion. Male : Normal genitalia with no discharge or lesions. Skin: Warm, dry with normal turgor. Normal color with no rashes, no lesions, and no evidence of cellulitis. MS/ Extremity: Pulses equal, no cyanosis. Neurovascular intact. Full, normal range of motion. Neuro: Awake and alert, GCS 15, oriented to person, place, time, and situation. Cranial nerves II-XII grossly intact. Motor strength 5/5 in all extremities. Sensory grossly intact. Cerebellar exam normal. Normal gait. Psych: Awake, alert, with orientation to person, place and time. Behavior, mood, and affect are within normal limits. 07:51 Cardiovascular: Rate: tachycardic, Rhythm: regular, Pulses: Pulses are 4+ in bilateral radial, brachial, femoral, popliteal, posterior tibial and and dorsalis pedis arteries.. Heart sounds: normal, Edema: is not appreciated, JVD: is not appreciated. Vital Signs: 07:05 BP 187 / 135; Pulse 115; Resp 20; Temp 97.9(O); Pulse Ox 100% on R/A; Weight 102.06 kg; tl2 Height 6 ft. 3 in. (190.50 cm); Pain 9/10; 08:07 BP 171 / 125; Pulse 88; Resp 19; Pulse Ox 99% on R/A; ae4 09:07 BP 161 / 127; Pulse 86; Resp 20; Pulse Ox 100% on R/A; rb1 09:55 BP 174 / 136; Pulse 89; Resp 23; Pulse Ox 99% on R/A; ae4 13:07 BP 179 / 128; Pulse 82; Resp 20; Temp 98.0(O); Pulse Ox 100% on R/A; Pain 6/10; rb1 13:30 BP 161 / 112; Pulse 90; Resp 19; Pulse Ox 100% on R/A; ae4 07:05 Body Mass Index 28.12 (102.06 kg, 190.50 cm) tl2 MDM: 06:56 Patient medically screened. [facility] 07:57 Data reviewed: vital signs, nurses notes, lab test result(s), EKG, radiologic studies, [facility] CT scan, plain films. 08/15 07:19 Order name: Amylase, Serum; Complete Time: 08:25 08/15 07:19 Order name: Hepatic Function; Complete Time: 08:25 08/15 07:19 Order name: Lipase; Complete Time: 08:25 08/15 07:19 Order name: CBC with Diff; Complete Time: 08:25 08/15 07:19 Order name: BMP; Complete Time: 08:08/15 07:22 Order name: Troponin I; Complete Time: 08:25 ae4 08/15 07:37 Order name: Magnesium; Complete Time: 08:25 [facility] 08/15 07:37 Order name: NT PRO-BNP; Complete Time: 08:25 [facility] 08/15 07:37 Order name: PT-INR; Complete Time: 08:25 [facility] 08/15 07:37 Order name: Troponin (emerg Dept Use Only); Complete Time: 08:25 [facility] 08/15 08:00 Order name: Urine Dipstick--Ancillary (enter results); Complete Time: 10:22 eb 08/15 12:09 Order name: Lipase EDNM 08/15 12:09 Order name: CBC with Automated Diff EDMS 08/15 12:09 Order name: CBC with Automated Diff EDNM 08/15 07:37 Order name: XRAY Chest (1 view); Complete Time: 10:22 [facility] 08/15 08:32 Order name: US Abdomen Limited; Complete Time: 10:22 [facility] 08/15 09:28 Order name: Abdomen ; Complete Time: 10:22 [facility] 08/15 12:09 Order name: Comprehensive Metabolic Panel [facility] 08/15 12:09 Order name: Comprehensive Metabolic Panel EDNM 08/15 12:09 Order name: Troponin I EDNM 08/15 12:09 Order name: Troponin I EDNM 08/15 12:09 Order name: Troponin I EDNM 08/15 12:09 Order name: Troponin I [facility] 08/15 07:22 Order name: IV; Complete Time: 07:23 [facility] 08/15 07:23 Order name: EKG - Nurse/Tech; Complete Time: 07:33 [facility] 08/15 07:37 Order name: EKG; Complete Time: 07:37 [facility] 08/15 07:37 Order name: Cardiac monitoring; Complete Time: 07:38 [facility] 08/15 07:37 Order name: Labs collected and sent; Complete Time: 07:38 [facility] 08/15 07:37 Order name: O2 Per Protocol; Complete Time: 07:38 [facility] 08/15 07:37 Order name: O2 Sat Monitoring; Complete Time: 07:38 [facility] 08/15 11:19 Order name: NPO; Complete Time: 12:44 [facility] 08/15 12:09 Order name: CONS Pharmacy Consult EDNM 08/15 12:09 Order name: NPO EDMS Administered Medications: 07:15 Drug: NS 0.9% 1000 ml Route: IV; Rate: 1 bolus; Site: right antecubital; ae4 08:54 Follow up: IV Status: Completed infusion rb1 09:43 Follow up: IV Status: Completed infusion; IV Intake: 1000ml ae4 07:18 Drug: Zofran 4 mg Route: IVP; Site: right antecubital; ae4 07:40 Follow up: Response: Nausea is decreased ae4 07:20 Drug: morphine 4 mg Route: IVP; Site: right antecubital; ae4 07:39 Follow up: Response: Pain is decreased; RASS: Alert and Calm (0) ae4 07:38 Not Given (Physician Discretion): NS 0.9% 1000 ml IV at 1 bolus Per protocol; 1000 mL ae4 bolus 07:49 Drug: Pepcid 20 mg Route: IVP; Site: right antecubital; ae4 08:03 Follow up: Response: No adverse reaction rb1 09:07 Drug: NS 0.9% 1000 ml Route: IV; Rate: 125 ml/hr; Site: right antecubital; rb1 10:08 Drug: Zofran 4 mg Route: IVP; Site: right antecubital; ae4 10:10 Drug: morphine 4 mg Route: IVP; Site: right antecubital; ae4 Disposition: 08/15/19 08:38 Hospitalization ordered by Kiley Bowden for Inpatient Admission. Preliminary diagnosis are Acute pancreatitis, Cardiomyopathy, Unspecified kidney failure, Essential (primary) hypertension. - Bed requested for Telemetry/MedSurg (Inpatient). - Status is Inpatient Admission. rb1 - Condition is Fair. - Problem is new. - Symptoms have improved. UTI on Admission? No Signatures: Dispatcher [employer] EDNM Brandon Masterson MD MD cha Smirch, Shelby RN RN Coretta Benitez RN RN rb1 Chelsea Benjamin RN RN tl2 Osiris Lama Andrea, RN RN ae4 Corrections: (The following items were deleted from the chart) 09:06 07:37 Abdomen Pelvis W Con+CT.RAD.BRZ ordered. EDNM EDMS 09:29 09:07 CT-ABD ordered. EDNM EDMS 10:24 08:38 Hospitalization Ordered by Kiley Bowden MD for Inpatient Admission. Preliminary eb diagnosis is Acute pancreatitis; Cardiomyopathy; Unspecified kidney failure; Essential (primary) hypertension. Bed requested for Telemetry/MedSurg (Inpatient). Status is Inpatient Admission. Condition is Fair. Problem is new. Symptoms have improved. UTI on Admission? No. deejay 12:39 10:24 08/15/2019 08:38 Hospitalization Ordered by Kiley Bowden MD for Inpatient ss Admission. Preliminary diagnosis is Acute pancreatitis; Cardiomyopathy; Unspecified kidney failure; Essential (primary) hypertension. Bed requested for Telemetry/MedSurg (Inpatient). Status is Inpatient Admission. Condition is Fair. Problem is new. Symptoms have improved. UTI on Admission? No. eb 13:43 12:39 08/15/2019 08:38 Hospitalization Ordered by Kiley Bowden MD for Inpatient rb1 Admission. Preliminary diagnosis is Acute pancreatitis; Cardiomyopathy; Unspecified kidney failure; Essential (primary) hypertension. Bed requested for Telemetry/MedSurg (Inpatient). Status is Inpatient Admission. Condition is Fair. Problem is new. Symptoms have improved. UTI on Admission? No. ss
[2019-08-15] MEDS ORDERED: NA CHLORIDE 0.9% 1,000 ML ONE (09:07)
[2019-08-15 09:35] LABS: Urine Blood 2+ (NEG); Urine Glucose NEGATIVE (NEG); Urine Protein 3+ (NEG); Urine pH 7.5 (5.0-7.0)
--- NOTE | 2019-08-15 09:42 | RAD REPORT ---
EXAM DESCRIPTION: US - Abdomen Exam Limited - 08/15/2019 9:29 am CLINICAL HISTORY: ABD PAIN COMPARISON: Cholangiogram dated 04/24/2019; Abdomen Pelvis Wo Contrast dated 08/15/2019 FINDINGS: No gallstones identified. There are several small echogenic foci along the gallbladder wal l some of which show a ring down artifact. This is believed to be a combination of small polyps and g allbladder wall cholesterolosis. Gallbladder size overall is normal range. Gallbladder wall does appe ar slightly thickened without focal mass. Gallbladder wall thickening has been detailed previously on the MR CT study. No pericholecystic fluid. No common duct stone or biliary tree dilatation identified. IMPRESSION: No gallstones or acute gallbladder for biliary finding. Slight thickening of the gallbladder wall which has been previously detailed. No focal wall mass. Echogenic foci along the wall are believed be a combination of small polyp(s) and/or cholesterolosis. Neither finding is clinically significant or warranting ongoing monitoring.
--- NOTE | 2019-08-15 09:58 | RAD REPORT ---
EXAM DESCRIPTION: CT - Abdomen Pelvis Wo Contrast - 08/15/2019 9:31 am CLINICAL HISTORY: ABD PAIN COMPARISON: Abdomen Pelvis Wo Contrast dated 04/24/2019. TECHNIQUE: Axial [address] imaging of the abdomen and pelvis was performed without IV contrast. No IV contrast was given because of allergy, abnormal renal function, patient refusal or physician re quest. Oral contrast was given. All CT scans are performed using dose optimization technique as appropriate and may include automated exposure control or mA/KV adjustment according to patient size. FINDINGS: No suspicious findings in the lung bases. Liver is prominent in size but without focal abnormality on noncontrast imaging. Attenuation is borde rline to mild fatty infiltrated. No splenic abnormality seen. Gallbladder size is normal. Gallstones can be occult. Concurrent ultrasound study showed no stone disease. No biliary tree dilatation. Pancreas is abnormal. There is no solid or cystic mass of the parenchyma seen. There is edematous/ in flammatory stranding in the peripancreatic fat and along the anterior left renal fascia. This acute p ancreatitis pattern is similar to April 24 imaging. No hydronephrosis or suspicious renal mass. No significant adrenal finding. Isodense renal masses an d pyelonephritis cannot be excluded in the absence of IV contrast. The urinary bladder is without sig nificant finding. No dilated bowel loops or bowel wall thickening. No appendicitis. There is a small appendix stump whi ch may be normal variant or remnant from a prior appendectomy. No active GI process seen. No free air, free fluid or pneumatosis. No other areas of inflammatory stranding seen. No mass or bu lky lymphadenopathy. Small left-side and moderately large right-sided inguinal hernia is present. Min imal fat only umbilical hernia present. Disc and bony degenerative changes are present. No acute findings seen. IMPRESSION: Mild to moderate acute pancreatitis findings similar in appearance to April 24 imagin g. No pseudocyst, abscess or other complicating factor identifiable. Full assessment is limited is the absence of IV contrast.
--- NOTE | 2019-08-15 10:10 | RAD REPORT ---
EXAM DESCRIPTION: RAD - Chest Single View - 08/15/2019 8:14 am CLINICAL HISTORY: Abdominal pain, abdominal distention COMPARISON: August 03 TECHNIQUE: AP portable chest image was obtained 0808 hours . FINDINGS: No peripheral mass or consolidation. Minimal stranding seen in each lung base likely atele ctasis from shallow inspiration. Significant failure or volume overload are doubtful. Heart and vascu lature are normal. No measurable pleural effusion and no pneumothorax. No acute bony abnormality seen . No acute aortic findings suspected. IMPRESSION: No acute cardiopulmonary process. Chest is not substantially different from August 03 imaging.
[2019-08-15] MEDS ORDERED: ONDANSETRON 4 MG/2 ML VIAL IV PRN (12:03)
[2019-08-15] MEDS ORDERED: NITROGLYCERIN 0.4 MG/TAB SL PRN (12:09)
[2019-08-15 13:50] VITALS: BMI 27.3
[2019-08-15] MEDS: D5W 1,000 ML IV SCH (14:04)
[2019-08-15] MEDS: FUROSEMIDE 40 MG/4 ML VIAL IV SCH ×2 (14:04→16:21)
[2019-08-15] MEDS: MORPHINE 2 MG/ML SYR IV PRN ×3 (14:05→21:57)
[2019-08-15 15:12] LABS: Urine Appearance CLEAR; Urine Bilirubin NEGATIVE (NEG); Urine Blood 1+ (NEG); Urine Color YELLOW; Urine Glucose NEGATIVE (NEG); Urine Protein 3+ (NEG)
[2019-08-15 15:13] LABS: Urine Microscopic Reflex ORDER UMIC
[2019-08-15 15:32] LABS: Urine Bacteria <20 /HPF (NONE SEEN); Urine Culture Reflex Order NOT NEEDED; Urine RBC <5 /HPF (NONE SEEN)
[2019-08-15] MEDS: HYDRALAZINE HCL 20 MG/ML VIAL IV PRN ×2 (16:20→21:57)
[2019-08-15] MEDS: carvediloL 12.5 MG TAB PO SCH (17:20)
[2019-08-15] MEDS: ATORVASTATIN 40 MG TAB PO SCH (21:56)
[2019-08-15] MEDS: FAMOTIDINE 20 MG/2 ML VIAL IV SCH (21:57)
--- NOTE | 2019-08-15 23:42 | HP ---
Date of Admission: 08/15/2019 Presenting Complaint: Abdominal pain. History Of Present Illness: Natan Paulino is a 59-year-old with hypertension; CAD, recent negative ca rdiac cath 1 week ago, follows with Cardiology regularly; history of recurrent pancreatitis with inte rmittent alcohol intake. Admits to drinking alcohol since the last 2 days during the holiday fest [place]. Presented with new onset abdominal pain over the left upper quadrant and epigastric area since yesterday. The pain is persistent and similar to previous pancreatitis episode. He admits to some nausea, loss of appetite, and 1 episode of vomiting today. He denies any fever. No chest pain. He admits to shortness of breath on exertion, but admits to iron out with his diuretics. In the ED, he was noted with mild elevated troponin as well as markedly elevated lipase. He has been admitted for acute pancreatitis. An ultrasound of the abdomen done shows no evidence of gallstones. 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 Family History: Significant for father with mesothelioma, mother with history of hypertension. Cous in recently from throat cancer. Allergies: PENICILLIN. Home Medications: See nursing medication list. They include allopurinol, Coreg, guaifenesin, lisino pril, nitroglycerin, furosemide, and Lipitor. Review of Systems: All systems reviewed x10 were negative except as mentioned above. Social History: The patient is a lifelong nonsmoker. No history of alcohol, tobacco, or illicit kay g use. Admits to previous daily alcohol intake, but recently quit, then restarted again 2 days ago. Physical Examination: Current Vitals Signs: Blood pressure of 113/75, pulse of a 92, respiratory rate of 18, O2 saturation 95% on room air. General: Tall, middle-aged male, slightly older than stated age, not in any distress. Head: Atraumatic, normocephalic. Pupils equal and reactive to light. Neck: No JVD. No carotid bruit. Respiratory: Mild bibasilar crepitation, although has good air entry. No wheeze. Cardiovascular: S1, S2. Rate and rhythm regular. GI: Abdomen soft. Mild tenderness over the left and epigastric area with no rebound or guarding. N o CVA tenderness. No suprapubic fullness. Bowel sounds positive. Extremities: Slight trace pedal edema bilaterally. No calf tenderness. Neurologic: Patient is alert and oriented. Cranial nerves 2 through 12 grossly intact. Laboratory Data: Labs reviewed. WBC 9, neutrophils 70%. INR 0.9, potassium 4.1, creatinine 1.98, m agnesium 1.9. Troponin of 1.31. ProBNP of 12,495. Amylase 420, lipase 4037. Urinalysis unremarkab le except for 3+ protein. Chest x-ray shows mild CHF congestion. CT of the abdomen and pelvis shows mild to moderate active pa ncreatitis, similar to previous episodes. Impression: 1.Acute pancreatitis due to recurrent alcohol intake. 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 3.Moderate proteinuria. 4.Acute congestive heart failure exacerbation. 5.Agj-RS-nouqytecf myocardial infarction, although negative cardiac cath 1 week ago. Plan: 1.Acute pancreatitis. We will admit patient to inpatient status. We started patient on D5W and dennis ce patient on n.p.o. We do IV pain medication with morphine. We will monitor lipase trend for now. 2.Acute on chronic renal failure. Patient's baseline creatinine ranged from 1.9 to 2.04, but given recent cardiac catheterization as well as unexplained proteinuria, it might be best to consider biops abi patient as outpatient. We will start patient on diuresis now and follow. We will hold lisinopr il for now. 3.Acute CHF exacerbation. We will increase diuretic to Lasix 40 mg q.12 while inpatient. Follow cele ELIAS. 4.Advanced directive. Patient is a full code. 5.DVT prophylaxis. Subcutaneous Lovenox. Total time spent review of record and discussion with patient, greater than 60 minutes. EO/MODL Voice ID: [id number]
[2019-08-16] MEDS: MORPHINE 2 MG/ML SYR IV PRN ×5 (02:18→21:12)
[2019-08-16] MEDS: D5W 1,000 ML IV SCH ×2 (02:33→15:31)
[2019-08-16] MEDS: carvediloL 12.5 MG TAB PO SCH ×2 (05:41→17:21)
[2019-08-16 05:48] LABS: Absolute Lymphocytes (CBC) 0.8 K/uL (0.7-4.9); Basophils % 0.6 % (0-1.3); Hematocrit 47.4 % (39.6-49.0); Lymphocytes % 14.4 % (15.3-44.8); MPV 9.2 fL (7.6-11.3); RBC Red Blood Cell Count 5.54 M/uL (4.33-5.43)
[2019-08-16 06:06] LABS: Albumin 2.7 g/dL (3.4-5.0); Bilirubin Total 1.3 mg/dL (0.2-1.0); Potassium 3.9 mmol/L (3.5-5.1); Protein, Total 8.1 g/dL (6.4-8.2)
[2019-08-16 06:08] LABS: Troponin I 1.12 ng/mL (0.0-0.045)
[2019-08-16] MEDS: FUROSEMIDE 40 MG/4 ML VIAL IV SCH ×2 (09:17→17:21)
[2019-08-16] MEDS: ENOXAPARIN 40 MG/0.4 ML SQ SCH (09:17)
[2019-08-16] MEDS: FAMOTIDINE 20 MG/2 ML VIAL IV SCH ×2 (09:17→21:12)
[2019-08-16] MEDS: lisinopriL 20 MG TAB PO SCH (09:18)
[2019-08-16] MEDS ORDERED: INFLUENZA VACCINE (for 3y+) 0.5 ML DOSE IMVAC ONE (10:00)
--- NOTE | 2019-08-16 10:46 | P.PN ---
Subjective Date of Service: 08/16/19 Subjective: No new changes, NPO Review of Systems Unremarkable Physical Examination - Vital Signs Temperature: 97.6 F Blood Pressure: 144/85 Pulse: 94 Respirations: 20 Pulse Ox (%): 95 - Physical Exam General: Alert, In no apparent distress, Oriented x3 HEENT: Atraumatic, Normocephalic Respiratory: Clear to auscultation bilaterally, Normal air movement Cardiovascular: No edema, Normal pulses, Regular rate/rhythm, Normal S1 S2 Gastrointestinal: Normal bowel sounds, Soft and benign Musculoskeletal: No clubbing, No swelling Neurological: Normal gait, Normal speech, Normal strength at 5/5 x4 extr Lymphatics: No axilla or inguinal lymphadenopathy External genitalia: No edema - Studies Laboratory Last Values WBC 5.8 K/uL (4.3-10.9) D 08/16/19 05:33 RBC 5.54 M/uL (4.33-5.43) H 08/16/19 05:33 Hgb 15.8 g/dL (13.6-17.9) 08/16/19 05:33 Hct 47.4 % (39.6-49.0) 08/16/19 05:33 MCV 85.7 fL (80-100) 08/16/19 05:33 MCH 28.6 pg (27.0-35.0) 08/16/19 05:33 MCHC 33.3 g/dL (32.0-36.0) 08/16/19 05:33 RDW 16.7 % (12.1-15.2) H 08/16/19 05:33 Plt Count 222 K/uL (152-406) 08/16/19 05:33 MPV 9.2 fL (7.6-11.3) 08/16/19 05:33 Neutrophils % 66.1 % (41.7-73.7) 08/16/19 05:33 Lymphocytes % 14.4 % (15.3-44.8) L 08/16/19 05:33 Monocytes % 14.6 % (3.3-12.3) H 08/16/19 05:33 Eosinophils % 4.3 % (0-4.4) 08/16/19 05:33 Basophils % 0.6 % (0-1.3) 08/16/19 05:33 Absolute Neutrophils 3.9 K/uL (1.8-8.0) 08/16/19 05:33 Absolute Lymphocytes 0.8 K/uL (0.7-4.9) 08/16/19 05:33 Absolute Monocytes 0.9 K/uL (0.1-1.3) 08/16/19 05:33 Absolute Eosinophils 0.3 K/uL (0-0.5) 08/16/19 05:33 Absolute Basophils 0.0 K/uL (0-0.5) 08/16/19 05:33 PT 11.4 SECONDS (9.5-12.5) 08/15/19 07:08 INR 0.96 08/15/19 07:08 Sodium 140 mmol/L (136-145) 08/16/19 05:33 Potassium 3.9 mmol/L (3.5-5.1) 08/16/19 05:33 Chloride 109 mmol/L (98-107) H 08/16/19 05:33 Carbon Dioxide 23 mmol/L (21-32) 08/16/19 05:33 BUN 28 mg/dL (7-18) H 08/16/19 05:33 Creatinine 2.01 mg/dL (0.55-1.3) H 08/16/19 05:33 Estimated GFR 41 mL/min (=/>90) L 08/16/19 05:33 Glucose 117 mg/dL (74-106) H 08/16/19 05:33 Calcium 9.0 mg/dL (8.5-10.1) 08/16/19 05:33 Magnesium 1.9 mg/dL (1.8-2.4) 08/15/19 07:08 Total Bilirubin 1.3 mg/dL (0.2-1.0) H 08/16/19 05:33 Direct Bilirubin 0.6 mg/dL (0-0.2) H 08/15/19 07:08 AST 83 U/L (15-37) H 08/16/19 05:33 ALT 51 U/L (12-78) 08/16/19 05:33 Alkaline Phosphatase 93 U/L (45-117) 08/16/19 05:33 Rapid Troponin I 1.31 ng/mL (0.0-0.045) H* 08/15/19 07:08 Troponin I 1.12 ng/mL (0.0-0.045) H* 08/16/19 05:33 NT-Pro-B Natriuret Pep 90760 pg/mL (<125) H 08/15/19 07:08 Serum Total Protein 8.1 g/dL (6.4-8.2) 08/16/19 05:33 Albumin 2.7 g/dL (3.4-5.0) L 08/16/19 05:33 Globulin 5.4 g/dL (2.3-3.5) H D 08/16/19 05:33 Albumin/Globulin Ratio 0.5 (1.1-1.8) L 08/16/19 05:33 Amylase 420 U/L (25-115) H* 08/15/19 07:08 Lipase 1637 U/L (73-393) H 08/16/19 05:33 Urine Color Yellow 08/15/19 14:54 Urine Appearance Clear 08/15/19 14:54 Urine pH 7.0 (5.0-7.0) 08/15/19 14:54 Ur Specific [place] 1.010 (1.005-1.030) 08/15/19 14:54 Urine Ketones Negative (NEG) 08/15/19 14:54 Urine Blood 1+ (NEG) H 08/15/19 14:54 Urine Nitrite Negative (NEG) 08/15/19 14:54 Urine Bilirubin Negative (NEG) 08/15/19 14:54 Urine Urobilinogen 1.0 mg/dL (0.2-1.0) 08/15/19 14:54 Ur Leukocyte Esterase Negative (NEG) 08/15/19 14:54 Urine RBC <5 /HPF (NONE SEEN) 08/15/19 14:54 Urine WBC <5 /HPF (<5) 08/15/19 14:54 Ur Squamous Epith Cells <5 /HPF (NONE SEEN) 08/15/19 14:54 Urine Bacteria <20 /HPF (NONE SEEN) 08/15/19 14:54 Urine Culture Reflexed Not needed 08/15/19 14:54 Urine Glucose Negative (NEG) 08/15/19 14:54 Urine Total Protein 3+ (NEG) H 08/15/19 14:54 Medications List Reviewed: Yes Assessment & Plan - Problems (Diagnosis) (1) Acute kidney injury superimposed on CKD Onset Date: 09/11/17 Current Visit: No Status: Acute (2) Acute pancreatitis Onset Date: 10/31/16 Current Visit: No Status: Acute (3) Alcohol withdrawal Current Visit: No Status: Acute (4) Chronic kidney disease, stage 3 Current Visit: No Status: Acute (5) Elevated troponin Onset Date: 11/01/16 Current Visit: No Status: Acute (6) HTN (hypertension) Onset Date: 11/01/16 Current Visit: No Status: Chronic Qualifiers: Physician Review: Patient Assessed, Agree with Above Assessment and Plan Physician Review Additional Text: # Acute Pancreatitis - improving , lipase trending down -will start clear liquis diet today -advised to continue to avoid alcohol # ARF on CKD - cr up with diuresis -around debby -presence of nephrotic syndrome possible -may need renal follow up and renal biopsy as outpt -pt discussed with today # CHF -systolic - c/w lasix # Nstemi/elevated troponin -s/p neg cath last week -consult cardiology # HTN -restart home emds
--- NOTE | 2019-08-16 11:45 | EKG ---
Test Date: 2019-08-15 Test Time: 07:30:51 Shade Cutter: ALICIA MEASUREMENT RESULTS: Intervals: Rate: 89 OK: 164 QRSD: 142 QT: 424 QTc: 515 [place]: P: 71 OK: 164 QRS: -55 T: 73 INTERPRETIVE STATEMENTS: Normal sinus rhythm Possible Left atrial enlargement Left bundle branch block Abnormal ECG Compared to ECG 08/03/2019 07:00:30 Sinus tachycardia no longer present Fusion complex(es) no longer present Ventricular premature complex(es) no longer present Electronically Signed On 08-16-19 11:42:16 OCCUP THERAPIST by Ludin Mcfadden
[2019-08-16] MEDS: ATORVASTATIN 40 MG TAB PO SCH (21:12)
[2019-08-17] MEDS: MORPHINE 2 MG/ML SYR IV PRN ×4 (01:22→22:32)
[2019-08-17] MEDS: D5W 1,000 ML IV SCH (03:59)
[2019-08-17] MEDS: carvediloL 12.5 MG TAB PO SCH ×2 (04:58→17:14)
[2019-08-17 06:38] LABS: Albumin 2.7 g/dL (3.4-5.0); Bilirubin Total 1.6 mg/dL (0.2-1.0); Potassium 3.9 mmol/L (3.5-5.1); Protein, Total 7.9 g/dL (6.4-8.2)
[2019-08-17] MEDS ORDERED: TRAMADOL HCL 50 MG TAB PO PRN (06:40)
[2019-08-17] MEDS ORDERED: allopurinoL 300 MG TAB PO PRN (06:42)
[2019-08-17] MEDS ORDERED: NA CHLORIDE 0.9% 1,000 ML IV SCH (07:00)
--- NOTE | 2019-08-17 09:19 | P.PN ---
Subjective Date of Service: 08/17/19 Primary Care Provider: Kristal Key NP; Cardiology-Dr. Mcfadden Chief Complaint: Abdominal pain Subjective: Ambulating, Improving Physical Examination - Vital Signs Temperature: 97.4 F Blood Pressure: 114/85 Pulse: 65 Respirations: 18 Pulse Ox (%): 96 - Physical Exam General: Alert, In no apparent distress, Oriented x3, Cooperative HEENT: Atraumatic Neck: Supple Respiratory: Clear to auscultation bilaterally, Normal air movement Cardiovascular: Normal pulses, Regular rate/rhythm Gastrointestinal: Normal bowel sounds, Soft and benign, Non-distended, No tenderness, No masses, No rebound, No guarding Musculoskeletal: No erythema, No tenderness, No warmth Integumentary: No tenderness/swelling, No erythema, No warmth, No cyanosis Neurological: Normal speech, Normal strength at 5/5 x4 extr, Normal tone - Studies Medications List Reviewed: Yes Assessment & Plan Discharge Plan: Home Plan to discharge in: 48 Hours Physician Review Additional Text: Impression: Acute pancreatitis Acute on chronic renal disease stage III Chronic systolic CHF with idiopathic dilated cardiomyopathy, ejection fraction 30% Recent history of NSTEMI status post heart catheterization which was unremarkable Hypertension Gout Plan: Acute pancreatitis: Patient has improved. Will advance diet to clear liquids. Will consider advancing diet to a full liquid later today. Encourage ambulation. Will provide incentive spirometer. Lipase improved. Continue to monitor lipase levels. Continue monitor lab closely. Electrolyte protocol in place. Anticipate discharge in the next 1-2 days with clinical improvement. Acute on chronic renal disease stage III: Patient appears to be over diuresed. Will discontinue IV Lasix. Will increase IV fluids today. If taking good oral intake will then consider adjusting fluids Chronic systolic CHF with idiopathic dilated cardiomyopathy, ejection fraction 30%: Will discontinue IV Lasix at this time. Will monitor closely. Recent history of NSTEMI status post heart catheterization which was unremarkable: Patient with elevated troponin. Patient had recent heart catheterization was showing normal coronaries. Echo and heart catheterization showed dilated cardiomyopathy. Continue with medications. Will monitor closely. Will discuss with cardiology. Hypertension: Continue with medication. Gout: Will continue with medication Time Spent Managing Pts Care (In Minutes): 55
[2019-08-17] MEDS: lisinopriL 20 MG TAB PO SCH (09:25)
[2019-08-17] MEDS: NA CHLORIDE 0.9% 1,000 ML IV SCH ×2 (09:26→19:55)
[2019-08-17] MEDS: HYDROCODONE/APAP 7.5/325 MG TAB PO PRN ×2 (09:26→19:34)
[2019-08-17] MEDS: ENOXAPARIN 40 MG/0.4 ML SQ SCH (09:26)
--- NOTE | 2019-08-17 10:21 | EKG ---
Test Date: 2019-08-15 Test Time: 11:05:44 Commercial Field Inspector: ALICIA MEASUREMENT RESULTS: Intervals: Rate: 79 TN: 164 QRSD: 140 QT: 426 QTc: 488 [place]: P: 61 TN: 164 QRS: -52 T: 69 INTERPRETIVE STATEMENTS: Sinus rhythm with premature supraventricular complexes Possible Left atrial enlargement Left bundle branch block Abnormal ECG Compared to ECG 08/15/2019 07:30:51 Atrial premature complex(es) now present Electronically Signed On 08-17-19 10:20:19 MANAGER INTENSIVE CARE by Vern Naranjo
--- NOTE | 2019-08-17 18:02 | CON ---
Date of Consultation: 08/15/[address] Hayes on 08/15/2019. I saw the patient on 08/15/2019. Reason For Consultation: Elevated troponin. History Of Present Illness: Patient is a 59-year-old black male who was recently admitted to the [facility] for pancreatitis, also underwent a coronary stent. Comes in with another recurrent episode of pancreatitis. Apparently, he has been abstinent from alcohol since his last admission few months ago , but he had 1 beer during the Holiday and came back again with pancreatitis. Pain is mid- epigastric. No nausea. Has had no vomiting. Denied PND, orthopnea, pedal edema, palpitations, or s yncope. His pain has been going on for about 48 hours. His amylase was 420, lipase was 4037. EKG i s unremarkable. Troponin is 1.31. Past Medical History: Dyslipidemia, hypertension, and pancreatitis. Review of Systems: Negative. Social History: Positive for alcohol and tobacco. Family History: Noncontributory. Medications: Present medications include Lipitor, hydralazine, lisinopril, Coreg. He is now n.p.o. Physical Examination: General: He was in tebfosyc-mr-wiowie distress. Vital Signs: Stable, afebrile. HEENT: Negative. Neck: Supple with no bruit. Chest: Clear to auscultation and percussion. Cardiac: Revealed a regular rhythm and rate with S4 gallops. No murmurs or rubs. Abdomen: Revealed tenderness in the mid-epigastric region. Negative bowel sounds. No hepatosplenom egaly. Extremities: Revealed no clubbing, cyanosis, or edema. Diagnostic Data: Stated earlier. Impression And Plan: 1.Elevated troponin secondary to pancreatitis. 2.Severe pancreatitis, acute on chronic. 3.Hypertension. 4.History of coronary artery disease, status post recent stent. We are not dealing with acute coron camila syndrome. No cardiac workup recommended at this point. He needs to be n.p.o. Obtain a GI consu lt, screening for acute pancreatitis. We had re-counseled him on alcohol abstinence. We will see brent saab in the office in the next few weeks after he gets discharged. BIANCA/TERRELL Voice ID: [id number] Report ID: [id number]
[2019-08-17] MEDS: ATORVASTATIN 40 MG TAB PO SCH (21:50)
[2019-08-17 23:45] VITALS: O2SAT 98
[2019-08-18] MEDS: HYDROCODONE/APAP 7.5/325 MG TAB PO PRN (02:23)
[2019-08-18] MEDS: carvediloL 12.5 MG TAB PO SCH (05:32)
[2019-08-18] MEDS: NA CHLORIDE 0.9% 1,000 ML IV SCH (05:33)
[2019-08-18] MEDS ORDERED: PANTOPRAZOLE 40MG TABLET PO SCH (06:30)
[2019-08-18 06:48] LABS: Basophils % 0.8 % (0-1.3); Hematocrit 43.7 % (39.6-49.0); Lymphocytes % 18.8 % (15.3-44.8); MPV 9.7 fL (7.6-11.3); RBC Red Blood Cell Count 5.08 M/uL (4.33-5.43)
[2019-08-18 07:12] LABS: Albumin 2.5 g/dL (3.4-5.0); Bilirubin Total 1.5 mg/dL (0.2-1.0); Magnesium 1.7 mg/dL (1.8-2.4); Potassium 3.8 mmol/L (3.5-5.1); Protein, Total 7.3 g/dL (6.4-8.2)
[2019-08-18] MEDS ORDERED: MAGNESIUM SULFATE 1 gm IVPB 1 GM/100 ML BAG IV ONE (07:20)
[2019-08-18] MEDS: ENOXAPARIN 40 MG/0.4 ML SQ SCH (07:46)
[2019-08-18] MEDS: lisinopriL 20 MG TAB PO SCH (07:47)
[2019-08-18 09:02] LABS: Blood Morphology Comment NOT SEEN (NOT SEEN); Platelet Estimate ADEQ
--- NOTE | 2019-08-18 09:20 | P.DS ---
Admission Date: 08/15/19 Discharge Date: 08/18/19 Primary Care Provider: Kristal Key NP; Cardiology-Dr. Mcfadden Disposition: ROUTINE DISCHARGE Discharge Condition: GOOD Reason for Admission: Abdominal pain - Problems (1) Acute kidney injury superimposed on CKD Onset Date: 09/11/17 Current Visit: No Status: Acute (2) Acute pancreatitis Onset Date: 10/31/16 Current Visit: No Status: Acute (3) Alcohol withdrawal Current Visit: No Status: Acute (4) Chronic kidney disease, stage 3 Current Visit: No Status: Acute (5) Elevated troponin Onset Date: 11/01/16 Current Visit: No Status: Acute (6) HTN (hypertension) Onset Date: 11/01/16 Current Visit: No Status: Chronic Qualifiers: Brief History of Present Illness: patient with hx of alcohol use admitted for acute pancreatitis Hospital Course: Presyncope 2 history of hypertension, CAD, chronic alcohol use, admitted for abdominal pain with nausea. CT scan showed evidence of pancreatitis. Abdomen ultrasound was negative for gallstones. Patient was started on NPO diet. His lipase trended from above 4000 to 759. He is tolerating p.o. well with no recurrence of abdominal pain. He had a transient elevation in troponin, evaluated by Cardiology and given recent cardiac cath 1 week. Patient was effectively managed conservatively. He will follow with Cardiology in outpatient in 1 week. Vital Signs/Physical Exam: Temp Pulse Resp BP Pulse Ox 97.1 F 73 18 130/93 H 97 08/18/19 04:00 08/18/19 07:47 08/18/19 04:00 08/18/19 07:47 08/18/19 04:00 General: Alert, Oriented x3, Cooperative HEENT: Atraumatic, Normocephalic, PERRLA Neck: Supple, 2+ carotid pulse no bruit Respiratory: Clear to auscultation bilaterally, Normal air movement Cardiovascular: No edema, Regular rate/rhythm, Normal S1 S2 Gastrointestinal: Normal bowel sounds, Soft and benign, No tenderness Musculoskeletal: No clubbing, No swelling Integumentary: No rashes, No breakdown Neurological: Normal speech, Normal strength at 5/5 x4 extr, Normal tone External genitalia: No edema, No lesions Laboratory Data at Discharge: WBC 5.5 K/uL (4.3-10.9) 08/18/19 05:15 Hgb 14.6 g/dL (13.6-17.9) 08/18/19 05:15 Hct 43.7 % (39.6-49.0) 08/18/19 05:15 Plt Count 181 K/uL (152-406) 08/18/19 05:15 PT 11.4 SECONDS (9.5-12.5) 08/15/19 07:08 INR 0.96 08/15/19 07:08 Sodium 136 mmol/L (136-145) 08/18/19 05:15 Potassium 3.8 mmol/L (3.5-5.1) 08/18/19 05:15 BUN 31 mg/dL (7-18) H 08/18/19 05:15 Creatinine 1.97 mg/dL (0.55-1.3) H 08/18/19 05:15 Glucose 97 mg/dL (74-106) 08/18/19 05:15 Magnesium 1.7 mg/dL (1.8-2.4) L 08/18/19 05:15 Total Bilirubin 1.5 mg/dL (0.2-1.0) H 08/18/19 05:15 AST 60 U/L (15-37) H 08/18/19 05:15 ALT 35 U/L (12-78) 08/18/19 05:15 Alkaline Phosphatase 80 U/L (45-117) 08/18/19 05:15 Troponin I 1.00 ng/mL (0.0-0.045) H* 08/17/19 05:39 Amylase 420 U/L (25-115) H* 08/15/19 07:08 Lipase 728 U/L (73-393) H 08/18/19 05:15 Home Medications: Atorvastatin Calcium [Lipitor] 40 mg PO BEDTIME #30 tab 08/04/19 Furosemide [Lasix*] 40 mg PO DAILY #30 tab 08/04/19 Nitroglycerin [Nitrostat*] 0.4 mg SL UD PRN #30 tab 08/04/19 allopurinoL [Zyloprim*] 300 mg PO DAILY PRN #30 tab 08/04/19 carvediloL [Coreg*] 12.5 mg PO BID 6AM 6PM #60 tab 08/04/19 guaiFENesin [Robitussin 100MG/5ML*] 5 ml PO QID #1 bottle 08/04/19 lisinopriL [Lisinopril] 20 mg PO DAILY #30 tablet 08/04/19 Diet: Low sodium Activity: Ad pelon
[2019-08-18 10:14] VITALS: BP 117/82; TEMP 97.7
== END 2019-08-18 10:14 | disposition home or self-care (01) | DRG 438 ==
LOC: ER 06:49 → ERHOLD 12:30 → 2ND 13:26
PROVIDERS: ADMIT Internal Medicine; ATTEND Internal Medicine
DX: K85.20 Alcohol induced acute pancreatitis without necrosis or infection (principal); I21.4 Non-ST elevation (NSTEMI) myocardial infarction; I50.23 Acute on chronic systolic (congestive) heart failure; I13.0 Hypertensive heart and chronic kidney disease with heart failure and stage 1 through stage 4 chronic kidney disease, or unspecified chronic kidney disease; N17.9 Acute kidney failure, unspecified; F10.239 Alcohol dependence with withdrawal, unspecified; N18.3 Chronic kidney disease, stage 3 (moderate); M10.9 Gout, unspecified
CPT/HCPCS: 36415; 71045; 74176; 76705; 80048; 80053; 80076; 81003; 81015; 82150; 83690; 83735; 83880; 84484; 85025; 85610; 93005; 96361; 96374; 96375; 99285; J0360; J1650; J1940; J2270; J2405; J3475; J7030

== ENCOUNTER 2019-10-28 15:04 | Inpatient (IN) | payer MEDICARE ==
[2019-10-28] MEDS ORDERED: PANTOPRAZOLE 40 MG INJ ONE (16:34)
[2019-10-28] MEDS ORDERED: ONDANSETRON 4 MG/2 ML VIAL ONE (16:34)
[2019-10-28] MEDS ORDERED: NA CHLORIDE 0.9% 50 ML IV ONE (16:35)
[2019-10-28] MEDS ORDERED: NA CHLORIDE 0.9% 1,000 ML ONE ×2 (16:35→17:57)
[2019-10-28 16:36] LABS: Basophils % 0.6 % (0-1.3); Hematocrit 48.6 % (39.6-49.0); MPV 9.4 fL (7.6-11.3); RBC Red Blood Cell Count 5.59 M/uL (4.33-5.43)
[2019-10-28 16:39] LABS: Protime INR 0.98
[2019-10-28] MEDS ORDERED: FENTANYL CITR 100 MCG/2 ML ONE (16:43)
[2019-10-28 16:54] LABS: Albumin 3.2 g/dL (3.4-5.0); Bilirubin Direct 0.6 mg/dL (0-0.2); Bilirubin Total 1.6 mg/dL (0.2-1.0); Magnesium 1.8 mg/dL (1.8-2.4); Potassium 4.2 mmol/L (3.5-5.1); Protein, Total 9.1 g/dL (6.4-8.2)
[2019-10-28 16:55] LABS: Troponin I 0.78 ng/mL (0.0-0.045)
--- NOTE | 2019-10-28 16:58 | RAD REPORT ---
EXAM DESCRIPTION: Catarina Single View10/28/2019 4:18 pm CLINICAL HISTORY: Abdominal pain COMPARISON: 2018 FINDINGS: The lungs appear clear of acute infiltrate. The heart is mildly to moderately enlarged IMPRESSION: No acute abnormalities displayed
--- NOTE | 2019-10-28 17:26 | RAD REPORT ---
EXAM DESCRIPTION: CT - Abdomen Pelvis Wo Contrast - 10/28/2019 5:15 pm CLINICAL HISTORY: Abdominal pain COMPARISON: 2019 TECHNIQUE: Computed axial tomography of the abdomen and pelvis was obtained. IV and oral contrast we re not requested. All CT scans are performed using dose optimization technique as appropriate and may include automated exposure control or mA/KV adjustment according to patient size. FINDINGS: The evaluation of solid organs, vessels and bowel is limited secondary to the lack of con trast administration. Moderate stranding surrounds the pancreas. A pseudocyst is not seen. The liver, spleen, adrenals and kidneys appear grossly normal. The appendix is normal. There is no evidence of diverticulitis. Small to moderate right inguinal hernia contains fat. Small left inguinal hernia contains fat IMPRESSION: Moderate pancreatitis
--- NOTE | 2019-10-28 17:42 | ER ---
Nurse's Notes [facility] Name: Natan Paulino Sr Age: 59 yrs Sex: Male : 1960 Arrival Date: 10/28/2019 Time: 15:10 Bed 20 Private MD: Diagnosis: Alcohol induced acute pancreatitis;Elevated troponin;Unspecified kidney failure Presentation: 10/27 15:30 Chief complaint: Patient states: has a history of pancreatitis, blood pressure is dm5 probably high too. 17:31 Coronavirus screen: The patient has NOT traveled to a country currently being monitored vc by the [facility] within the last 14 days. Coronavirus screen: The patient has NOT traveled to a country currently being monitored by the [facility] within the last 14 days. Proceed with normal triage procedures. Ebola Screen: No symptoms or risks identified at this time. Initial Sepsis Screen: Does the patient meet any 2 criteria? No. Patient's initial sepsis screen is negative. Does the patient have a suspected source of infection? No. Patient's initial sepsis screen is negative. Risk Assessment: Do you want to hurt yourself or someone else? Patient reports no desire to harm self or others. 17:31 Acuity: NINO 3 vc 17:31 Method Of Arrival: Ambulatory vc 17:40 Onset of symptoms is unknown. vc Triage Assessment: 17:33 General: Appears in no apparent distress. Behavior is calm, cooperative, appropriate vc for age. Pain: Complains of pain in right upper quadrant and left upper quadrant Pain does not radiate. Pain currently is 10 out of 10 on a pain scale. Historical: - Allergies: 17:40 PENICILLINS; vc - Home Meds: 17:40 carvedilol Oral [Active]; Lasix 20 mg Oral tab 1 tab once daily [Active]; lisinopril 10 vc mg Oral tab 1 tab once daily [Active]; meloxicam Oral [Active]; Methocarbamol Oral [Active]; metoprolol tartrate 25 mg Oral tab 1 tab 2 times per day [Active]; - PMHx: 17:40 CHF; osteoarthritis; Gout; Hypertension; Pancreatitis; Rheumatoid Arthritis; TIA; vc - PSHx: 17:40 Heart stents; vc - Immunization history:: Adult Immunizations up to date. - Social history:: Smoking status: Patient denies any tobacco usage or history of. Screenin:31 Abuse screen: Denies threats or abuse. Nutritional screening: No deficits noted. vc Tuberculosis screening: No symptoms or risk factors identified. Fall Risk None identified. Assessment: 16:00 General: Appears in no apparent distress. uncomfortable, ill, Behavior is calm, vc cooperative, appropriate for age. Pain: Complains of pain in left upper quadrant and right upper quadrant Pain currently is 10 out of 10 on a pain scale. Neuro: Level of Consciousness is awake, alert, obeys commands, Oriented to person, place, time, situation. Cardiovascular: Capillary refill < 3 seconds Patient's skin is warm and dry. Respiratory: Airway is patent Respiratory effort is even, unlabored, Respiratory pattern is regular, symmetrical. GI: Abdomen is round distended, noted to have ascites, Reports upper abdominal pain, Pain is 10 out of 10 on a pain scale. : No signs and/or symptoms were reported regarding the genitourinary system. EENT: No signs and/or symptoms were reported regarding the EENT system. Derm: Skin temperature is warm. Musculoskeletal: Circulation, motion, and sensation intact. Range of motion: intact in all extremities. 19:10 Reassessment: Patient appears in no apparent distress at this time. Patient and/or family updated on plan of care and expected duration. Pain level reassessed. Patient is alert, oriented x 3, equal unlabored respirations, skin warm/dry/pink. 20:12 Reassessment: Patient appears in no apparent distress at this time. No changes from previously documented assessment. Patient and/or family updated on plan of care and expected duration. Pain level reassessed. Patient is alert, oriented x 3, equal unlabored respirations, skin warm/dry/pink. Patient states feeling better. Patient states symptoms have improved. Vital Signs: 17:32 BP 184 / 128; Pulse 87; Resp 20; Temp 98.0(O); Pulse Ox 99% ; lt1 19:00 BP 175 / 112; Pulse 85; Resp 18; Pulse Ox 99% on R/A; wh 20:15 BP 168 / 113; Pulse 83; Resp 18; Pulse Ox 100% on R/A; ED Course: 15:10 Patient arrived in ED. fj1 15:30 Arm band placed on. vc 15:32 Brandon Patel PA is PHCP. cp 15:32 Manuel Kruse MD is Attending Physician. cp 15:44 Fay Frank, RADHIKA is Primary Nurse. vc 16:03 Radiology exam delayed due to lab results not completed at this time. (BUN/Creatinine). vm2 16:19 Initial lab(s) drawn, by me, sent to lab. Inserted saline lock: 20 gauge in left lt1 antecubital area, using aseptic technique. 16:20 XRAY Chest (1 view) In Process Unspecified. EDMS 17:16 CT Abd/Pelvis - Without Contrast In Process Unspecified. EDMS 17:32 Triage completed. vc 17:40 Thomas Boyle is Hospitalizing Provider. cp 17:41 Patient has correct armband on for positive identification. fire and safety helper on. Pulse vc ox on. NIBP on. 18:02 Urine collected: clean catch specimen, clear, william colored. jb1 20:52 No provider procedures requiring assistance completed. Patient admitted, IV remains in wh place. Administered Medications: 16:54 Drug: ProTONIX 40 mg Route: IVP; Site: left antecubital; vc 20:41 Follow up: Response: No adverse reaction 16:54 Drug: fentaNYL (PF) 25 mcg Route: IVP; Site: left antecubital; vc 20:40 Follow up: Response: No adverse reaction; Pain is unchanged, physician notified; RASS: Alert and Calm (0) 16:55 Drug: NS 0.9% 1000 ml Route: IV; Rate: 1000 ml/hr; Site: left antecubital; vc 20:42 Follow up: Response: No adverse reaction; IV Status: Completed infusion 16:55 Drug: Zofran (Ondansetron) 4 mg Route: IVP; Site: left antecubital; vc 20:42 Follow up: Response: No adverse reaction; Nausea is decreased 17:27 CANCELLED (Physician Discretion): Aspirin Chewable Tablet 324 mg PO once; 81 mg tablets cp x 4 17:37 CANCELLED (Physician Discretion): Dilaudid 1 mg IVP once; RASS on ADMIN: Combtv4, Very cp Agttd3, Agttd2, Rstlss1, AlertClm0, Drwsy-1, Lt Sdtn-2, Mod Sdtn-3, Dp Sdtn-4, UnArsble-5 17:55 Drug: morphine 4 mg Route: IVP; Site: left antecubital; vc 20:40 Follow up: Response: No adverse reaction 20:40 Follow up: Response: No adverse reaction; Pain is decreased; RASS: Alert and Calm (0) 17:58 Drug: Aspirin Chewable Tablet 324 mg Route: PO; vc 20:39 Follow up: Response: No adverse reaction 17:59 Drug: NS 0.9% 1000 ml Route: IV; Rate: 1000 ml/hr; Site: left antecubital; vc 20:39 Follow up: Response: No adverse reaction; IV Status: Completed infusion 19:23 Drug: morphine 4 mg {Note: RASS 0.} Route: IVP; Site: left antecubital; 20:39 Follow up: Response: No adverse reaction; Pain is decreased; RASS: Alert and Calm (0) Outcome: 17:42 Decision to Hospitalize by Provider. cp 20:52 Admitted to Tele accompanied by tech, via wheelchair, room 424, with chart, Report called to Anabell Chapman RN 20:52 Condition: stable 20:52 Instructed on the need for admit. 21:06 Patient left the ED. Signatures: Dispatcher [employer] EDMS Tae Mello jb1 Deidra Kimbrough, RN RN dm5 Brandon Patel PA PA sAha Resendez 2 Shorty Benedict Felisha Blancas 1 Fay Frank RN RN Erik Krishnan fj1 Corrections: (The following items were deleted from the chart) 20:38 20:15 BP 168 / 113; Pulse 83bpm; Resp 18bpm; Pulse Ox 100%; [facility]
--- NOTE | 2019-10-28 17:42 | EDPHYS ---
Physician Documentation [facility] Name: Natan Paulino Sr Age: 59 yrs Sex: Male : 1960 Arrival Date: 10/28/2019 Time: 15:10 Bed 20 Private MD: ED Physician Manuel Kruse HPI: 10/27 15:35 This 59 yrs old Black Male presents to ER via Unassigned with complaints of POSSIBLE cp PANCREATITIS. 15:35 The patient presents with abdominal pain that is diffuse. cp 15:35 Onset: The symptoms/episode began/occurred this morning. The symptoms radiate to back. cp Associated signs and symptoms: Pertinent positives: nausea, Pertinent negatives: chest pain, constipation, diarrhea, dysuria, fever, testicular pain, vomiting. The symptoms are described as constant. Severity of pain: in the emergency department the pain is a 10 / 10. The patient has experienced similar episodes in the past, multiple times, today's symptoms are similar, to when the patient was apparently diagnosed with pancreatitis. Historical: - Allergies: 17:40 PENICILLINS; vc - Home Meds: 17:40 carvedilol Oral [Active]; Lasix 20 mg Oral tab 1 tab once daily [Active]; lisinopril 10 vc mg Oral tab 1 tab once daily [Active]; meloxicam Oral [Active]; Methocarbamol Oral [Active]; metoprolol tartrate 25 mg Oral tab 1 tab 2 times per day [Active]; - PMHx: 17:40 CHF; osteoarthritis; Gout; Hypertension; Pancreatitis; Rheumatoid Arthritis; TIA; vc - PSHx: 17:40 Heart stents; vc - Immunization history:: Adult Immunizations up to date. - Social history:: Smoking status: Patient denies any tobacco usage or history of. ROS: 15:40 Constitutional: Negative for body aches, chills, fever. cp 15:40 Eyes: Negative for injury, pain, redness, and discharge. cp 15:40 ENT: Negative for drainage from ear(s), ear pain, sore throat, difficulty swallowing, difficulty handling secretions. 15:40 Cardiovascular: Negative for chest pain. 15:40 Respiratory: Negative for cough, shortness of breath, wheezing. 15:40 Abdomen/GI: Positive for abdominal pain, nausea, anorexia, Negative for vomiting, diarrhea, constipation, black/tarry stool, rectal bleeding. 15:40 Back: Positive for radiated pain. 15:40 : Negative for urinary symptoms, flank pain, testicular pain 15:40 Neuro: Negative for altered mental status, headache, weakness. 15:40 All other systems are negative. Exam: 15:45 Constitutional: The patient appears in no acute distress, alert, awake, non-toxic, well cp developed, well nourished, diaphoretic. 15:45 Head/Face: Normocephalic, atraumatic. Eyes: Pupils equal round and reactive to light, cp extra-ocular motions intact. Lids and lashes normal. Conjunctiva and sclera are non-icteric and not injected. Cornea within normal limits. Periorbital areas with no swelling, redness, or edema. ENT: Nares patent. No nasal discharge, no septal abnormalities noted. Tympanic membranes are normal and external auditory canals are clear. Oropharynx with no redness, swelling, or masses, exudates, or evidence of obstruction, uvula midline. Mucous membranes moist. Chest/axilla: Normal chest wall appearance and motion. Nontender with no deformity. No lesions are appreciated. 15:45 Cardiovascular: Rate: normal, Rhythm: regular, Edema: is not appreciated, JVD: is not appreciated. 15:45 Respiratory: the patient does not display signs of respiratory distress, Respirations: normal, no use of accessory muscles, no retractions, labored breathing, is not present, Breath sounds: are clear throughout, no decreased breath sounds, no stridor, no wheezing. 15:45 Abdomen/GI: Inspection: abdomen appears normal, Bowel sounds: active, all quadrants, Palpation: soft, in all quadrants, severe abdominal tenderness, in the right upper quadrant and left upper quadrant, rebound tenderness, is not appreciated, voluntary guarding, is elicited in the right upper quadrant and left upper quadrant. 15:45 Back: CVA tenderness, is absent. 15:45 Skin: no rash present. 15:45 Neuro: Orientation: to person, place \T\ time. Mentation: is normal, Cerebellar function: is grossly normal, Motor: moves all fours, strength is normal, Sensation: is normal. 15:49 ECG was reviewed by the Attending Physician. Vital Signs: 17:32 BP 184 / 128; Pulse 87; Resp 20; Temp 98.0(O); Pulse Ox 99% ; lt1 19:00 BP 175 / 112; Pulse 85; Resp 18; Pulse Ox 99% on R/A; wh 20:15 BP 168 / 113; Pulse 83; Resp 18; Pulse Ox 100% on R/A; wh MDM: 15:33 Patient medically screened. 17:39 Physician consultation: Thomas Boyle was called at 17:39, was contacted at 17:39, regarding admission, to the telemetry unit. patient's condition, and will see patient in ED. 17:40 Data reviewed: vital signs, nurses notes, lab test result(s), EKG, radiologic studies, cp CT scan, and as a result, I will admit patient. 17:40 Test interpretation: by ED physician or midlevel provider: ECG, plain radiologic cp studies, chest xray negative for infiltrates. Counseling: I had a detailed discussion with the patient and/or guardian regarding: the historical points, exam findings, and any diagnostic results supporting the discharge/admit diagnosis, lab results, radiology results, the need for further work-up and treatment in the hospital. Response to treatment: the patient's symptoms have mildly improved after treatment. 10/27 15:33 Order name: Basic Metabolic Panel; Complete Time: 17:15 10/27 17:16 Interpretation: Normal except: CL 108; GLUC 108; BUN 20; CRE 1.86; GFR 45. 10/27 15:33 Order name: CBC with Diff; Complete Time: 16:53 10/27 16:53 Interpretation: Normal except: RBC 5.59; RDW 17.5. 10/27 15:33 Order name: Creatinine for Radiology; Complete Time: 16:53 10/27 16:53 Interpretation: Abnormal: CRE 1.85; GFR 45. 10/27 15:33 Order name: Hepatic Function; Complete Time: 17:15 10/27 17:16 Interpretation: Normal except: AST 57; BILIT 1.6; BILID 0.6; TP 9.1; ALB 3.2; GLOB 5.9; cp A/G 0.5. 10/27 15:33 Order name: Lipase; Complete Time: 17:15 10/27 17:16 Interpretation: Abnormal: LIP 4285. 10/27 15:38 Order name: ETOH Level; Complete Time: 17:15 10/27 15:38 Order name: PT-INR; Complete Time: 16:53 cp 10/27 15:38 Order name: Ptt, Activated; Complete Time: 16:53 cp 10/27 15:38 Order name: Troponin I; Complete Time: 17:15 cp 10/27 17:16 Interpretation: Abnormal: TROP 0.78. cp 03/ 15:38 Order name: Magnesium; Complete Time: 17:15 cp 10/27 15:39 Order name: Urine Microscopic Only; Complete Time: 18:49 cp 10/27 16:02 Order name: XRAY Chest (1 view); Complete Time: 17:15 cp 10/27 18:19 Order name: Urine Dipstick--Ancillary (enter results); Complete Time: 18:49 la1 10/27 18:49 Interpretation: Normal except: UBLD TRACE; UPROT 3+. cp 10/27 15:33 Order name: IV Saline Lock; Complete Time: 16:20 cp 10/27 15:33 Order name: Labs collected and sent; Complete Time: 16:20 cp 10/27 15:38 Order name: EKG; Complete Time: 15:39 cp 10/27 15:38 Order name: EKG - Nurse/Tech; Complete Time: 16:54 cp 10/27 15:39 Order name: Urine Dipstick-Ancillary (obtain specimen); Complete Time: 18:02 cp 10/27 16:54 Order name: CT Abd/Pelvis - Without Contrast; Complete Time: 17:33 cp 10/27 17:38 Order name: NPO; Complete Time: 17:45 cp EC:49 Rate is 83 beats/min. Rhythm is regular. IL interval is normal. QRS interval is cp prolonged at 136 msec. QT interval is normal. T waves are Inverted in lead aVL. Interpreted by me. Reviewed by me. Administered Medications: 16:54 Drug: ProTONIX 40 mg Route: IVP; Site: left antecubital; vc 20:41 Follow up: Response: No adverse reaction 16:54 Drug: fentaNYL (PF) 25 mcg Route: IVP; Site: left antecubital; vc 20:40 Follow up: Response: No adverse reaction; Pain is unchanged, physician notified; RASS: Alert and Calm (0) 16:55 Drug: NS 0.9% 1000 ml Route: IV; Rate: 1000 ml/hr; Site: left antecubital; vc 20:42 Follow up: Response: No adverse reaction; IV Status: Completed infusion 16:55 Drug: Zofran (Ondansetron) 4 mg Route: IVP; Site: left antecubital; vc 20:42 Follow up: Response: No adverse reaction; Nausea is decreased 17:27 CANCELLED (Physician Discretion): Aspirin Chewable Tablet 324 mg PO once; 81 mg tablets cp x 4 17:37 CANCELLED (Physician Discretion): Dilaudid 1 mg IVP once; RASS on ADMIN: Combtv4, Very cp Agttd3, Agttd2, Rstlss1, AlertClm0, Drwsy-1, Lt Sdtn-2, Mod Sdtn-3, Dp Sdtn-4, UnArsble-5 17:55 Drug: morphine 4 mg Route: IVP; Site: left antecubital; vc 20:40 Follow up: Response: No adverse reaction 20:40 Follow up: Response: No adverse reaction; Pain is decreased; RASS: Alert and Calm (0) 17:58 Drug: Aspirin Chewable Tablet 324 mg Route: PO; vc 20:39 Follow up: Response: No adverse reaction 17:59 Drug: NS 0.9% 1000 ml Route: IV; Rate: 1000 ml/hr; Site: left antecubital; vc 20:39 Follow up: Response: No adverse reaction; IV Status: Completed infusion 19:23 Drug: morphine 4 mg {Note: RASS 0.} Route: IVP; Site: left antecubital; 20:39 Follow up: Response: No adverse reaction; Pain is decreased; RASS: Alert and Calm (0) Disposition: 10/28 07:07 Co-signature as Attending Physician, Manuel Kruse MD I agree with the assessment and kdr plan of care. Disposition: 10/28/19 17:42 Hospitalization ordered by Thomas Boyle for Inpatient Admission. Preliminary diagnosis are Alcohol induced acute pancreatitis, Elevated troponin, Unspecified kidney failure. - Bed requested for Telemetry/MedSurg (Inpatient). - Status is Inpatient Admission. - Condition is Stable. - Problem is new. - Symptoms have improved. Signatures: Dispatcher [employer] EDVT Manuel Kruse MD MD kdr Brandon Patel PA PA cp Jak, Shorty Butch, Karli mw2 Fay Frank, RN RN vc Corrections: (The following items were deleted from the chart) 10/27 17:06 15:39 Abdomen Pelvis W Con+CT.RAD.BRZ ordered. EDMS EDMS 17:27 17:25 Aspirin Chewable Tablet 324 mg PO once; 81 mg tablets x 4 ordered. cp cp 17:37 17:35 Dilaudid 1 mg IVP once; RASS on ADMIN: Combtv4, Very Agttd3, Agttd2, Rstlss1, cp AlertClm0, Drwsy-1, Lt Sdtn-2, Mod Sdtn-3, Dp Sdtn-4, UnArsble-5 ordered. cp 17:42 17:42 Hospitalization Ordered by Thomas Boyle for Inpatient Admission. Preliminary cp diagnosis is Alcohol induced acute pancreatitis; Elevated troponin. Bed requested for Telemetry/MedSurg (Inpatient). Status is Inpatient Admission. Condition is Stable. Problem is new. Symptoms have improved. 20:08 17:42 10/28/2019 17:42 Hospitalization Ordered by Thomas Boyle for Inpatient 2 Admission. Preliminary diagnosis is Alcohol induced acute pancreatitis; Elevated troponin; Unspecified kidney failure. Bed requested for Telemetry/MedSurg (Inpatient). Status is Inpatient Admission. Condition is Stable. Problem is new. Symptoms have improved. cp 21:06 20:08 10/28/2019 17:42 Hospitalization Ordered by Thomas Boyle for Inpatient Admission. Preliminary diagnosis is Alcohol induced acute pancreatitis; Elevated troponin; Unspecified kidney failure. Bed requested for Telemetry/MedSurg (Inpatient). Status is Inpatient Admission. Condition is Stable. Problem is new. Symptoms have improved. mw2
[2019-10-28] MEDS ORDERED: ASPIRIN 81 MG CHEWABLE TABLET ONE (17:56)
[2019-10-28] MEDS ORDERED: MORPHINE 4 MG/ML SYR ONE ×2 (17:57→19:15)
[2019-10-28 18:28] LABS: Urine Blood TRACE (NEG); Urine Glucose NEGATIVE (NEG); Urine Protein 3+ (NEG)
--- NOTE | 2019-10-28 18:35 | P.HP ---
Certification for Inpatient Patient admitted to: Inpatient With expected LOS: >2 Midnights Practitioner: I am a practitioner with admitting privileges, knowledge of patient current condition, hospital course, and medical plan of care. Services: Services provided to patient in accordance with Admission requirements found in Title 42 Section 412.3 of the Code of Federal Regulations Patient History Date of Service: 10/28/19 Reason for admission: Abdominal pain History of Present Illness: 59-year-old man with a history of congestive heart failure, recent EF of 30%, history of chronic alcoholism presented emergency department with a complaint of sudden onset of back pain after drinking a bottle of beer. Patient stated he had abstained from alcohol for about [address] abdomen and pelvis done in the ED demonstrates findings suggestive of acute pancreatitis. His lipase is elevated to 4000. His troponin is elevated. Noted patient's troponin is elevated almost always in the ED. He is admitted for further management. Allergies Penicillins Allergy (Verified 08/03/19 14:41) Hives/Rash Home Medications: Atorvastatin Calcium [Lipitor] 40 mg PO BEDTIME #30 tab 08/04/19 Furosemide [Lasix*] 40 mg PO DAILY #30 tab 08/04/19 Nitroglycerin [Nitrostat*] 0.4 mg SL UD PRN #30 tab 08/04/19 allopurinoL [Zyloprim*] 300 mg PO DAILY PRN #30 tab 08/04/19 carvediloL [Coreg*] 12.5 mg PO BID 6AM 6PM #60 tab 08/04/19 guaiFENesin [Robitussin 100MG/5ML*] 5 ml PO QID #1 bottle 08/04/19 lisinopriL [Lisinopril] 20 mg PO DAILY #30 tablet 08/04/19 - Past Medical/Surgical History Diabetic: No -: hypertension -: irregular heart beat -: PANCREATITIS -: TIA -: CHF -: Gout - Family History Father -: Hypertension, Lung disease, Cancer, Liver disease Notes: asbestos. exposure Mother Notes: mom is healthy - Social History Alcohol use: Yes CD- Drugs: No Caffeine use: Yes Review of Systems Other: Except as documented, all other systems reviewed and negative. Physical Examination - Physical Exam General: Alert, In no apparent distress, Oriented x3 HEENT: Mucous membr. moist/pink, Sclerae nonicteric Neck: Supple, JVD not distended Respiratory: Clear to auscultation bilaterally, Normal air movement Cardiovascular: No edema, Regular rate/rhythm, Normal S1 S2 Gastrointestinal: Normal bowel sounds, Soft and benign, Non-distended, Tenderness (Diffuse) Musculoskeletal: No swelling, No erythema Integumentary: No rashes Neurological: Normal speech, Normal strength at 5/5 x4 extr - Studies Laboratory Data (last 24 hrs) 10/28/19 16:15: PT 11.6, INR 0.98, APTT 31.0 10/28/19 16:15: Creatinine 1.85 H 10/28/19 16:15: WBC 8.7, Hgb 15.9, Hct 48.6, Plt Count 249 10/28/19 16:15: Sodium 139, Potassium 4.2, BUN 20 H, Creatinine 1.86 H, Glucose 108 H, Magnesium 1.8, Total Bilirubin 1.6 H, AST 57 H, ALT 35, Alkaline Phosphatase 95, Troponin I 0.78 H*, Lipase 4285 H Assessment and Plan - Problems (Diagnosis) (1) Acute pancreatitis Onset Date: 10/31/16 Current Visit: No Status: Acute (2) Elevated troponin Onset Date: 11/01/16 Current Visit: No Status: Acute (3) Chronic alcoholism Current Visit: Yes Status: Chronic (4) Chronic kidney disease, stage 3 Current Visit: No Status: Acute (5) Chronic systolic heart failure Current Visit: No Status: Acute - Plan Admit to medical floor Telemetry Supportive measures. Cautious IV fluid given history of systolic heart failure Serial lipase daily, monitor renal function. Troponin likely secondary to demand ischemia. Continue to trend troponin Clear Liquid diet as patient with tolerate. Continue heart failure medication-lisinopril, Coreg, Lipitor. - Advance Directives Does patient have a Living Will: No Does patient have a Durable POA for Healthcare: No
[2019-10-28 18:46] LABS: Urine Bacteria <20 /HPF (NONE SEEN); Urine RBC <5 /HPF (NONE SEEN)
[2019-10-28 18:47] LABS: Urine Culture Reflex Order NOT NEEDED
[2019-10-28] MEDS ORDERED: ONDANSETRON 4 MG/2 ML VIAL IV PRN (21:26)
[2019-10-28 22:06] VITALS: BMI 27.2
[2019-10-28] MEDS: MORPHINE 2 MG/ML SYR IV PRN (22:10)
[2019-10-28] MEDS: NA CHLORIDE 0.9% 1,000 ML IV SCH (22:10)
[2019-10-29] MEDS: MORPHINE 2 MG/ML SYR IV PRN ×6 (03:12→23:41)
[2019-10-29 06:01] LABS: Basophils % 0.5 % (0-1.3); Hematocrit 41.4 % (39.6-49.0); Lymphocytes % 17.8 % (15.3-44.8); MPV 9.5 fL (7.6-11.3); RBC Red Blood Cell Count 4.76 M/uL (4.33-5.43)
[2019-10-29 06:18] LABS: Magnesium 1.7 mg/dL (1.8-2.4); Phosphorus 2.9 mg/dL (2.5-4.9)
[2019-10-29] MEDS ORDERED: MAGNESIUM SULFATE 1 gm IVPB 1 GM/100 ML BAG IV ONE (06:29)
[2019-10-29] MEDS: ENOXAPARIN 40 MG/0.4 ML SQ SCH (08:07)
--- NOTE | 2019-10-29 08:52 | EKG ---
Test Date: 2019-10-28 Test Time: 15:48:47 Manufacturers Representative: MARQUEZ MEASUREMENT RESULTS: Intervals: Rate: 83 [place]: 158 QRSD: 136 QT: 424 QTc: 498 [place]: P: 49 [place]: 158 QRS: -46 T: 88 INTERPRETIVE STATEMENTS: Sinus rhythm with premature atrial complexes Left bundle branch block Abnormal ECG Compared to ECG 08/15/2019 11:05:44 No significant changes Electronically Signed On 10-29-19 08:50:43 CDT by Ludin Mcfadden
[2019-10-29] MEDS ORDERED: INFLUENZA VACCINE (for 3y+) 0.5 ML DOSE IMVAC ONE (09:00)
[2019-10-29] MEDS: NA CHLORIDE 0.9% 1,000 ML IV SCH (10:17)
[2019-10-29] MEDS: TRAMADOL HCL 50 MG TAB PO PRN ×2 (11:57→17:30)
--- NOTE | 2019-10-29 15:23 | P.PN ---
Subjective Date of Service: 10/29/19 Chief Complaint: Abdominal pain Patient states abdominal pain is getting better. He is tolerating liquid diet. He is complaining of headache. Physical Examination - Vital Signs Temperature: 97.1 F Blood Pressure: 159/101 Pulse: 103 Respirations: 18 Pulse Ox (%): 98 - Physical Exam General: Alert, In no apparent distress, Oriented x3 HEENT: Mucous membr. moist/pink, Sclerae nonicteric Neck: Supple, JVD not distended Respiratory: Clear to auscultation bilaterally, Normal air movement Cardiovascular: No edema, Regular rate/rhythm, Normal S1 S2 Gastrointestinal: Normal bowel sounds, Soft and benign, Non-distended, Tenderness (Diffuse) Musculoskeletal: No swelling, No erythema Integumentary: No rashes Neurological: Normal speech, Normal strength at 5/5 x4 extr - Studies Laboratory Data (last 24 hrs) 10/28/19 16:15: PT 11.6, INR 0.98, APTT 31.0 10/28/19 16:15: Creatinine 1.85 H 10/28/19 16:15: WBC 8.7, Hgb 15.9, Hct 48.6, Plt Count 249 10/28/19 16:15: Sodium 139, Potassium 4.2, BUN 20 H, Creatinine 1.86 H, Glucose 108 H, Magnesium 1.8, Total Bilirubin 1.6 H, AST 57 H, ALT 35, Alkaline Phosphatase 95, Troponin I 0.78 H*, Lipase 4285 H Assessment And Plan - Current Problems (Diagnosis) (1) Acute pancreatitis Onset Date: 10/31/16 Current Visit: No Status: Acute (2) Elevated troponin Onset Date: 11/01/16 Current Visit: No Status: Acute (3) Chronic alcoholism Current Visit: Yes Status: Chronic (4) Chronic kidney disease, stage 3 Current Visit: No Status: Acute (5) Chronic systolic heart failure Current Visit: No Status: Acute - Plan The patient has been experiencing intermittent short runs of Vtach. Lipase level has decreased but still significantly high. Supportive measures. Replete low magnesium level. Cautious IV fluid given history of systolic heart failure. Serial lipase daily, monitor renal function. Troponin likely secondary to demand ischemia. Troponin trended flat. Continue Clear Liquid diet. Continue heart failure medication-lisinopril, Coreg, Lipitor.
[2019-10-29] MEDS ORDERED: NITROGLYCERIN 0.4 MG/TAB SL PRN (16:09)
[2019-10-29] MEDS: lisinopriL 20 MG TAB PO SCH (16:28)
[2019-10-29] MEDS: carvediloL 12.5 MG TAB PO SCH (19:49)
[2019-10-30] MEDS: MORPHINE 2 MG/ML SYR IV PRN ×2 (05:11→09:27)
[2019-10-30 06:36] LABS: Magnesium 1.8 mg/dL (1.8-2.4)
[2019-10-30] MEDS ORDERED: MAGNESIUM SULFATE 1 gm IVPB 1 GM/100 ML BAG IV ONE (06:37)
[2019-10-30] MEDS: allopurinoL 300 MG TAB PO SCH (07:55)
[2019-10-30] MEDS: lisinopriL 20 MG TAB PO SCH (07:55)
[2019-10-30] MEDS: ENOXAPARIN 40 MG/0.4 ML SQ SCH (07:55)
[2019-10-30] MEDS: carvediloL 12.5 MG TAB PO SCH ×2 (07:55→20:33)
[2019-10-30] MEDS: ATORVASTATIN 40 MG TAB PO SCH (07:56)
[2019-10-30] MEDS ORDERED: FUROSEMIDE 40 MG TABLET PO SCH (09:00)
--- NOTE | 2019-10-30 13:54 | P.PN ---
Subjective Date of Service: 10/30/19 Chief Complaint: Abdominal pain Patient states he feels much better. He denies any abdominal pain today. He is tolerated diet advancement. Lipase level has decreased to 700. quality assurance monitor final has been reading intermittent short runs of V-tach. Physical Examination - Vital Signs Temperature: 97.7 F Blood Pressure: 138/86 Pulse: 74 Respirations: 16 Pulse Ox (%): 98 - Physical Exam General: Alert, In no apparent distress, Oriented x3 HEENT: Mucous membr. moist/pink, Sclerae nonicteric Neck: Supple, JVD not distended Respiratory: Clear to auscultation bilaterally, Normal air movement Cardiovascular: No edema, Regular rate/rhythm, Normal S1 S2 Gastrointestinal: Normal bowel sounds, Soft and benign, Non-distended, No tenderness Musculoskeletal: No swelling, No erythema Integumentary: No rashes, No erythema Neurological: Normal speech, Normal strength at 5/5 x4 extr Assessment And Plan - Current Problems (Diagnosis) (1) Acute pancreatitis Onset Date: 10/31/16 Current Visit: No Status: Acute (2) Elevated troponin Onset Date: 11/01/16 Current Visit: No Status: Acute (3) Chronic alcoholism Current Visit: Yes Status: Chronic (4) Chronic kidney disease, stage 3 Current Visit: No Status: Acute (5) Chronic systolic heart failure Current Visit: No Status: Acute - Plan The patient has been experiencing intermittent short runs of Vtach. Lipase level has decreased considerably and patient is tolerating diet advancement. Case discussed with Dr. Mcfadden recommend starting amiodarone. Optimize magnesium and potassium levels Cardiology consult. Discontinue IV fluid. Serial lipase daily, monitor renal function. Troponin likely secondary to demand ischemia. Troponin trended flat. Advanced diet as tolerated. Continue heart failure medication-lisinopril, Coreg, Lipitor.
[2019-10-30] MEDS: TRAMADOL HCL 50 MG TAB PO PRN ×2 (14:43→20:34)
[2019-10-30] MEDS: AMIODARONE HCL 200 MG TAB PO SCH ×2 (14:43→20:33)
--- NOTE | 2019-10-30 19:45 | CON ---
Date of Consultation: 10/30/[address] Boyle on 10/28/2019. I am seeing the patient today on 10/30/2019, because of ventri cular tachycardia and congestive heart failure. History Of Present Illness: Mr. Paulino is a 59-year-old black male. He is very well known to me from previous office visits and admissions. Mr. Paulino has had a history of chronic systolic congestive hea rt failure with an ejection fraction of less than 20% that is secondary to alcoholic cardiomyopathy. He has had coronary artery disease with history of stent in the LAD. Catheterization that was done in July of 2019, showed no evidence of significant coronary artery disease. He has a chronic lef t bundle-branch block, history of rheumatoid arthritis, TIA, hypertension, gout, chronic renal diseas e stage 3. Came in with moderate pancreatitis by CT scan, elevated amylase, abdominal pain, elevated troponin. He is feeling better from an abdominal standpoint, but has been having runs of ventricula r tachycardia in the hospital. Mr. Paulino is noncompliant and had continued his alcohol use. He is ot herwise a great candidate for defibrillator and biventricular pacemaker since he has a left bundle-br anch block with a wide QRS complex. He needs to stop his alcohol completely before we can do a defib rillator, biventricular pacemaker. He did not have any symptoms with his arrhythmias. Past Medical History: As stated above. Allergies: PENICILLIN. Review of Systems: Negative. Social History: Positive for alcohol. Family History: Noncontributory. Medications: At home include lisinopril, Coreg, Lasix, Lipitor, and allopurinol. Physical Examination: Vital Signs: Stable. Afebrile. HEENT: Negative. Neck: Supple with no bruit. Chest: Clear. Cardiac: Revealed irregular rhythm and rate with an S3 gallop. No murmurs or rubs. Abdomen: Benign. Extremities: Revealed no clubbing, cyanosis, or edema. Diagnostic Data: Creatinine is 1.49. Troponin is 0.69. Lipase is 2203. CT of the abdomen shows mo derate pancreatitis. EKG showed left bundle-branch block. Chest x-ray was negative. Impression And Plan: 1.Ventricular tachycardia secondary to alcoholic cardiomyopathy with an ejection fraction of less th an 20%. We need to continue the Coreg, lisinopril, and Lasix. He needs to continue his Lipitor. We need to start him on amiodarone 400 b.i.d. for a week and then cut him back down to 200 mg daily. H león needs to quit alcohol. We need to send him to electrophysiology services, which I will do as an ou tpatient for a possible biventricular pacemaker defibrillator. 2.Chronic systolic congestive heart failure that is stable as above. 3.History of coronary artery disease, status post stent with normal catheterization in July. His other problems including history of transient ischemic attack, rheumatoid arthritis, hypert ension, gout, and chronic renal disease, all of which are stable at this point. We will continue to follow him. BIANCA/TERRELL Voice ID: [id number] Report ID: [id number]
[2019-10-30] MEDS: MAGNESIUM OXIDE 400 MG TAB PO SCH (20:30)
[2019-10-31] MEDS: TRAMADOL HCL 50 MG TAB PO PRN (03:01)
[2019-10-31 07:29] LABS: Magnesium 1.9 mg/dL (1.8-2.4); Potassium 4.1 mmol/L (3.5-5.1)
[2019-10-31] MEDS: AMIODARONE HCL 200 MG TAB PO SCH (08:01)
[2019-10-31] MEDS: allopurinoL 300 MG TAB PO SCH (08:01)
[2019-10-31] MEDS: carvediloL 12.5 MG TAB PO SCH (08:02)
[2019-10-31] MEDS: ATORVASTATIN 40 MG TAB PO SCH (08:02)
[2019-10-31] MEDS: lisinopriL 20 MG TAB PO SCH (08:02)
[2019-10-31] MEDS: MAGNESIUM OXIDE 400 MG TAB PO SCH (08:02)
[2019-10-31] MEDS: ENOXAPARIN 40 MG/0.4 ML SQ SCH (08:03)
[2019-10-31] MEDS ORDERED: FUROSEMIDE 40 MG TABLET PO SCH (09:00)
[2019-10-31 09:31] VITALS: O2SAT 96
--- NOTE | 2019-10-31 11:23 | PN ---
Date of Progress Note: 10/31/2019 Subjective: Mr. Paulino was seen yesterday because of severe cardiomyopathy, chronic systolic, ejection fraction less than 20%, ventricular tachycardia, placed on amiodarone yesterday 400 b.i.d., has not had any further rhythm issues today. Mr. Paulino has major medical problems including hypertension, cor onary artery disease, pancreatitis, and chronic alcohol use, which has caused his pancreatitis as wel l as his cardiomyopathy. I spent some time with him discussing that he has to be completely abstinen t regarding his cardiomyopathy certainly that would help with his pancreatitis as well. Nevertheless , I think he can go home today. Continue his home medication including Lasix, Coreg and lisinopril a s well as amiodarone 400 b.i.d. for a total of a week. After that, 200 mg daily. If he does quit dr ruth, I think he would be a great candidate for a defibrillator that was discussed with him as well . May still consider EP referral regardless. I will see him in the office in the next week or 2. BIANCA/TERRELL Voice ID: [id number] Report ID: [id number]
--- NOTE | 2019-10-31 13:59 | P.DS ---
Admission Date: 10/28/19 Discharge Date: 10/31/19 Disposition: ROUTINE DISCHARGE Discharge Condition: GOOD Reason for Admission: Abdominal pain Consultations: Cardiology-Dr. Mcfadden Procedures: None - Problems (1) Acute pancreatitis Onset Date: 10/31/16 Current Visit: No Status: Acute (2) Elevated troponin Onset Date: 11/01/16 Current Visit: No Status: Acute (3) Chronic alcoholism Current Visit: Yes Status: Chronic (4) Chronic kidney disease, stage 3 Current Visit: No Status: Acute (5) Chronic systolic heart failure Current Visit: No Status: Acute Brief History of Present Illness: 59-year-old man with a history of congestive heart failure, recent EF of 25%, history of chronic alcoholism presented emergency department with a complaint of sudden onset of back pain after drinking a bottle of beer. Patient stated he had abstained from alcohol for about [address] abdomen and pelvis done in the ED demonstrated findings suggestive of acute pancreatitis. His lipase is elevated to 4000. His troponin is elevated. Noted patient's troponin is elevated almost always in the ED. Hospital Course: Patient was admitted to the medical floor and treated supportively with IV fluids, clear liquid diet. Serum lipase monitored trended down. The patient clinically improved with treatment. His abdominal pain resolved and he tolerated diet advancement. Patient had short runs of V-tach. Cardiology was consulted, patient was seen and evaluated by Dr. Mcfadden recommended amiodarone therapy. Patient meet criteria for AICD placement. He will follow with Dr. Mcfadden as an outpatient regarding that. He has tolerated the amiodarone. He is deemed clinically stable for discharge. . Vital Signs/Physical Exam: Temp Pulse Resp BP Pulse Ox 96.9 F 60 16 131/80 96 10/31/19 07:51 10/31/19 08:02 10/31/19 07:51 10/31/19 08:02 10/31/19 07:51 General: Alert, In no apparent distress, Oriented x3 HEENT: Mucous membr. moist/pink Neck: Supple Respiratory: Clear to auscultation bilaterally, Normal air movement Cardiovascular: No edema, Regular rate/rhythm, Normal S1 S2 Gastrointestinal: Normal bowel sounds, Soft and benign, No tenderness Musculoskeletal: No swelling, No erythema Integumentary: No rashes Neurological: Other (Nonfocal) Laboratory Data at Discharge: WBC 5.5 K/uL (4.3-10.9) D 10/29/19 05:27 Hgb 13.7 g/dL (13.6-17.9) 10/29/19 05:27 Hct 41.4 % (39.6-49.0) 10/29/19 05:27 Plt Count 156 K/uL (152-406) D 10/29/19 05:27 PT 11.6 SECONDS (9.5-12.5) 10/28/19 16:15 INR 0.98 10/28/19 16:15 APTT 31.0 SECONDS (24.3-36.9) 10/28/19 16:15 Sodium 138 mmol/L (136-145) 10/31/19 06:22 Potassium 4.1 mmol/L (3.5-5.1) 10/31/19 06:22 BUN 16 mg/dL (7-18) 10/31/19 06:22 Creatinine 1.46 mg/dL (0.55-1.3) H 10/31/19 06:22 Glucose 82 mg/dL (74-106) 10/31/19 06:22 Phosphorus 2.9 mg/dL (2.5-4.9) 10/29/19 05:27 Magnesium 1.9 mg/dL (1.8-2.4) 10/31/19 06:22 Total Bilirubin 1.6 mg/dL (0.2-1.0) H 10/28/19 16:15 AST 57 U/L (15-37) H 10/28/19 16:15 ALT 35 U/L (12-78) 10/28/19 16:15 Alkaline Phosphatase 95 U/L (45-117) 10/28/19 16:15 Troponin I 0.69 ng/mL (0.0-0.045) H* 10/29/19 00:26 Lipase 716 U/L (73-393) H 10/31/19 06:22 Home Medications: Allopurinol 300 mg PO DAILY 10/29/19 Atorvastatin Calcium [Lipitor] 40 mg PO DAILY 10/29/19 Carvedilol [Coreg] 12.5 mg PO BID 10/29/19 Furosemide 40 mg PO DAILY 10/29/19 Nitroglycerin 1 tab SL [id number] PRN 10/29/19 lisinopriL [Lisinopril] 20 mg PO DAILY 10/29/19 Amiodarone HCl [Cordarone*] 200 mg PO UD #48 tab 10/31/19 traMADol HCL [Ultram*] 50 mg PO Q6H PRN #20 tab 10/31/19 New Medications: Amiodarone HCl [Cordarone*] 200 mg PO UD #48 tab traMADol HCL [Ultram*] 50 mg PO Q6H PRN #20 tab PRN Reason: Pain Scale 5-7 (Moderate) Diet: AHA Activity: Ad pelon Followup: Ludin Mcfadden MD [ACTIVE - CAN ADMIT] - 1-2 Weeks Time spent managing pt's care (in minutes): 38
[2019-10-31 15:04] VITALS: BP 119/80; TEMP 97.2
== END 2019-10-31 14:36 | disposition home or self-care (01) | DRG 439 ==
LOC: ER 15:04 → ERHOLD 18:43 → 4TH 20:55
PROVIDERS: ADMIT Internal Medicine; ATTEND Internal Medicine
DX: K85.90 Acute pancreatitis without necrosis or infection, unspecified (principal); I47.2 Ventricular tachycardia; I42.6 Alcoholic cardiomyopathy; I13.0 Hypertensive heart and chronic kidney disease with heart failure and stage 1 through stage 4 chronic kidney disease, or unspecified chronic kidney disease; I50.22 Chronic systolic (congestive) heart failure; I25.10 Atherosclerotic heart disease of native coronary artery without angina pectoris; N18.3 Chronic kidney disease, stage 3 (moderate); F10.20 Alcohol dependence, uncomplicated; R79.89 Other specified abnormal findings of blood chemistry; Z95.5 Presence of coronary angioplasty implant and graft; Z88.0 Allergy status to penicillin
CPT/HCPCS: 36415; 71045; 74176; 80048; 80076; 80320; 81003; 81015; 83690; 83735; 84100; 84484; 85025; 85610; 85730; 93005; 94760; 96361; 96374; 96375; 99285; C9113; J1650; J2270; J2405; J3010; J3475; J7030

== ENCOUNTER 2019-12-22 08:03 | Emergency (ER) | payer MEDICARE ==
[2019-12-22] MEDS ORDERED: LIDOCAINE 1% W/EPI 1:100,000 MDV 50 ML VIAL ONE (08:35)
[2019-12-22] MEDS ORDERED: HYDROCODONE/APAP 10/325 TAB ONE (09:08)
[2019-12-22 09:59] LABS: Absolute Lymphocytes (CBC) 1.2 K/uL (0.7-4.9); Basophils % 0.5 % (0-1.3); Hematocrit 48.1 % (39.6-49.0); Lymphocytes % 13.7 % (15.3-44.8); MPV 8.8 fL (7.6-11.3); RBC Red Blood Cell Count 5.55 M/uL (4.33-5.43)
[2019-12-22 10:10] LABS: Appearance TURBID (CLEAR); Body Fluid Source SYNOVIAL; Body Fluid WBC 13863 /mm^3; Color of fluid Yellow (COLORLESS)
[2019-12-22 10:11] LABS: Albumin 2.7 g/dL (3.4-5.0); Bilirubin Total 0.9 mg/dL (0.2-1.0); Potassium 4.3 mmol/L (3.5-5.1); Protein, Total 8.2 g/dL (6.4-8.2); Uric Acid 8.9 mg/dL (3.5-7.2)
--- NOTE | 2019-12-22 10:19 | ER ---
Nurse's Notes [facility] Name: Natan Paulino Sr Age: 59 yrs Sex: Male : 1960 Arrival Date: 12/22/2019 Time: 08:08 Bed 20 Private MD: Gloria Key Diagnosis: Inflammatory Knee Effusion;Right knee effusion;Acute right knee pain Presentation: 12/21 08:18 Chief complaint: Right knee pain and swelling x 2 days. Hx of gout and arthritis. hb Coronavirus screen: Proceed with normal triage. Ebola Screen: No symptoms or risks identified at this time. Initial Sepsis Screen: Does the patient meet any 2 criteria? No. Patient's initial sepsis screen is negative. Does the patient have a suspected source of infection? No. Patient's initial sepsis screen is negative. Risk Assessment: Do you want to hurt yourself or someone else? Patient reports no desire to harm self or others. Onset of symptoms was December 21, 2019. 08:18 Method Of Arrival: Ambulatory 08:18 Acuity: NINO 3 hb Historical: - Allergies: 08:22 PENICILLINS; hb - Home Meds: 08:22 carvedilol Oral [Active]; Lasix 20 mg Oral tab 1 tab once daily [Active]; lisinopril 10 hb mg Oral tab 1 tab once daily [Active]; meloxicam Oral [Active]; Methocarbamol Oral [Active]; metoprolol tartrate 25 mg Oral tab 1 tab 2 times per day [Active]; - PMHx: 08:22 CHF; Gout; Hypertension; osteoarthritis; Pancreatitis; Rheumatoid Arthritis; TIA; hb - PSHx: 08:22 Heart stents; hb - Immunization history:: Adult Immunizations up to date. - Social history:: Smoking status: Patient denies any tobacco usage or history of. Screenin:06 Abuse screen: Denies threats or abuse. Denies injuries from another. Nutritional ph screening: No deficits noted. Tuberculosis screening: No symptoms or risk factors identified. Fall Risk None identified. Assessment: 09:30 General: Appears in no apparent distress. uncomfortable, well groomed, Behavior is ph calm, cooperative, appropriate for age. Pain: Complains of pain in right knee. Neuro: Level of Consciousness is awake, alert, obeys commands, Oriented to person, place, time, situation. Cardiovascular: Capillary refill < 3 seconds in bilateral fingers toes Patient's skin is warm and dry. Respiratory: No deficits noted. Derm: Skin is intact, is healthy with good turgor, Skin is pink, warm \T\ dry. Musculoskeletal: Circulation, motion, and sensation intact. Swelling present in right knee. Vital Signs: 08:18 BP 128 / 98; Pulse 88; Resp 16; Temp 98.5; Pulse Ox 100% ; Weight 101.6 kg; Height 6 hb ft. 3 in. (190.50 cm); Pain 10/10; 10:30 BP 122 / 86; Pulse 76; Resp 18; Pulse Ox 98% on R/A; ph 08:18 Body Mass Index 28.00 (101.60 kg, 190.50 cm) hb ED Course: 08:08 Patient arrived in ED. mr 08:08 Gloria Key is Private Physician. mr 08:15 Nagi Dickson MD is Attending Physician. ps1 08:21 Triage completed. hb 08:22 Arm band placed on. hb 08:33 Valery Chowdhury, RADHIKA is Primary Nurse. ss 09:01 Knee Right 3 View XRAY In Process Unspecified. EDMS 09:40 Initial lab(s) drawn, by me, sent to lab. ph 10:06 Patient has correct armband on for positive identification. Bed in low position. Call ph light in reach. Side rails up X 1. Pulse ox on. NIBP on. Door closed. Noise minimized. Warm blanket given. 10:18 Jesús Peres MD is Referral Physician. ps1 10:55 No provider procedures requiring assistance completed. Patient did not have IV access ph during this emergency room visit. Administered Medications: 08:45 Drug: Lidocaine-Epinephrine -1%: (1:100,000) 5 ml Volume: 20 ml; Route: Infiltration; ph 09:15 Drug: [place] 10 mg-325 mg 1 tabs Route: PO; ph 10:00 Follow up: Response: No adverse reaction ss Outcome: 10:19 Discharge ordered by . ps1 10:58 Patient left the ED. hb 10:58 Discharged to home ambulatory. ph 10:58 Condition: good 10:58 Discharge instructions given to patient, Instructed on discharge instructions, follow up and referral plans. medication usage, Demonstrated understanding of instructions, follow-up care, medications, Prescriptions given X 2. Signatures: Dispatcher [employer] GLENNA Mercy Killian Valery Ellison, Giselle Tinajero RN, RN RN ph Baxter, Heather, RN RN hb Singer, Phillip, MD MD ps1
--- NOTE | 2019-12-22 10:19 | EDPHYS ---
Physician Documentation [facility] Name: Natan Paulino Sr Age: 59 yrs Sex: Male : 1960 Arrival Date: 12/22/2019 Time: 08:08 Bed 20 Private MD: Gloria Key ED Physician Nagi Dickson HPI: 12/21 08:22 This 59 yrs old Black Male presents to ER via Ambulatory with complaints of Knee ps1 swelling. 08:22 Hx of gout. Presenting with atraumatic knee effusion. Took allopurinol yesterday when ps1 symptoms started. Pain is moderate to severe with movement. No fever or cellulitic changes. . Historical: - Allergies: 08:22 PENICILLINS; hb - Home Meds: 08:22 carvedilol Oral [Active]; Lasix 20 mg Oral tab 1 tab once daily [Active]; lisinopril 10 hb mg Oral tab 1 tab once daily [Active]; meloxicam Oral [Active]; Methocarbamol Oral [Active]; metoprolol tartrate 25 mg Oral tab 1 tab 2 times per day [Active]; - PMHx: 08:22 CHF; Gout; Hypertension; osteoarthritis; Pancreatitis; Rheumatoid Arthritis; TIA; hb - PSHx: 08:22 Heart stents; hb - Immunization history:: Adult Immunizations up to date. - Social history:: Smoking status: Patient denies any tobacco usage or history of. ROS: 08:22 Constitutional: Negative for fever, chills, and weight loss, Eyes: Negative for injury, ps1 pain, redness, and discharge, Cardiovascular: Negative for chest pain, palpitations, and edema, Respiratory: Negative for shortness of breath, cough, wheezing, and pleuritic chest pain, Abdomen/GI: Negative for abdominal pain, nausea, vomiting, diarrhea, and constipation. 08:22 MS/extremity: Positive for pain, of the right knee, large effusion. Exam: 08:22 Constitutional: This is a well developed, well nourished patient who is awake, alert, ps1 and in no acute distress. Head/Face: Normocephalic, atraumatic. Eyes: Pupils equal round and reactive to light, extra-ocular motions intact. Lids and lashes normal. Conjunctiva and sclera are non-icteric and not injected. Chest/axilla: Normal chest wall appearance and motion. Nontender with no deformity. No lesions are appreciated. Cardiovascular: Regular rate and rhythm. No gallops, murmurs, or rubs. Normal PMI, no JVD. No pulse deficits. Respiratory: Lungs have equal breath sounds bilaterally, clear to auscultation and percussion. No rales, rhonchi or wheezes noted. No increased work of breathing, no retractions or nasal flaring. Abdomen/GI: Soft, non-tender, with normal bowel sounds. No distension or tympany. No guarding or rebound. No evidence of tenderness throughout. 08:22 Musculoskeletal/extremity: Extremities: grossly normal except: noted in the right knee: tenderness, large effusion. . 08:22 Skin: Appearance: Color: normal in color. Vital Signs: 08:18 BP 128 / 98; Pulse 88; Resp 16; Temp 98.5; Pulse Ox 100% ; Weight 101.6 kg; Height 6 hb ft. 3 in. (190.50 cm); Pain 10/10; 10:30 BP 122 / 86; Pulse 76; Resp 18; Pulse Ox 98% on R/A; ph 08:18 Body Mass Index 28.00 (101.60 kg, 190.50 cm) hb Procedures: 10:19 Joint Treatment: Aspiration of right knee using 18 gauge needle, Removed cloudy fluid, ps1 yellow fluid, Dressed with band aid, Patient tolerated well. MDM: 08:25 Patient medically screened. ps1 10:19 Differential diagnosis: Inflammatory effusion, septic joint, gout, and others. Data ps1 reviewed: vital signs, nurses notes, lab test result(s), radiologic studies, and as a result, I will discharge patient. Counseling: I had a detailed discussion with the patient and/or guardian regarding: the historical points, exam findings, and any diagnostic results supporting the discharge/admit diagnosis, lab results, radiology results, the need for outpatient follow up, to return to the emergency department if symptoms worsen or persist or if there are any questions or concerns that arise at home. 12/21 08:21 Order name: CBC with Diff; Complete Time: 10:01 ps1 12/21 08:21 Order name: CMP; Complete Time: 10:13 ps1 12/21 08:21 Order name: Uric Acid; Complete Time: 10:13 ps1 12/21 08:21 Order name: Fluid Cell Count,Body; Complete Time: 10:13 ps1 12/21 08:21 Order name: Fluid Crystals; Complete Time: 09:49 ps1 12/21 08:47 Order name: Body Fluid Culture ps1 12/21 08:21 Order name: Knee Right 3 View XRAY ps1 Administered Medications: 08:45 Drug: Lidocaine-Epinephrine -1%: (1:100,000) 5 ml Volume: 20 ml; Route: Infiltration; ph 09:15 Drug: [place] 10 mg-325 mg 1 tabs Route: PO; ph 10:00 Follow up: Response: No adverse reaction ss Disposition: 12/22/19 10:19 Discharged to Home. Impression: Inflammatory Knee Effusion, Right knee effusion, Acute right knee pain. - Condition is Stable. - Discharge Instructions: Knee Effusion. - Prescriptions for Colchicine- Probenecid 0.5-500 mg Oral Tablet - take 1 tablet by ORAL route every 1 hour up to 3 hours; 3 tablet. Medrol (Shahram) 4 mg Oral Tablets, Dose Pack - take 1 tablet by ORAL route as directed - follow package instructions; 1 packet. - Medication Reconciliation Form, Thank You Letter, Antibiotic Education, Prescription Opioid Use form. - Follow up: Emergency Department; When: As needed; Reason: Fever > 102 F, Worsening of condition. Follow up: Jesús Peres MD; When: 48 Hours; Reason: Recheck today's complaints, Continuance of care, Re-evaluation by your physician. - Problem is new. - Symptoms have improved. Signatures: Dispatcher [employer] [facility] Giselle Paulino RN RN Lanie Bobo RN RN Nagi Dickson MD MD ps1 Valery Chowdhury RN Corrections: (The following items were deleted from the chart) 10:58 10:19 12/22/2019 10:19 Discharged to Home. Impression: Inflammatory Knee Effusion; hb Right knee effusion; Acute right knee pain. Condition is Stable. Forms are Medication Reconciliation Form, Thank You Letter, Antibiotic Education, Prescription Opioid Use. Follow up: Emergency Department; When: As needed; Reason: Fever > 102 F, Worsening of condition. Follow up: Dr. Jesús Peres; When: 48 Hours; Reason: Recheck today's complaints, Continuance of care, Re-evaluation by your physician. Problem is new. Symptoms have improved. ps1
[2019-12-22 11:04] VITALS: BP 128/98; TEMP 98.5; O2SAT 100
--- NOTE | 2019-12-22 11:21 | RAD REPORT ---
EXAM DESCRIPTION: RAD - Knee Right 3 View - 12/22/2019 9:00 am CLINICAL HISTORY: swelling, pain COMPARISON: Knee Right 3 View dated 11/12/2018; Knee Right 2 View dated 02/22/2018 FINDINGS: Severe osteoarthritis is present with a moderate suprapatellar joint effusion. No acute fr acture evident.
== END 2019-12-22 10:58 | disposition home or self-care (01) ==
LOC: ER 08:03
PROC: 0S9C3ZX Drainage of Right Knee Joint, Percutaneous Approach, Diagnostic (ICD-10-PCS; principal; 2019-12-22)
DX: M25.461 Effusion, right knee (principal); I10 Essential (primary) hypertension; I50.9 Heart failure, unspecified; Z88.0 Allergy status to penicillin; Z95.818 Presence of other cardiac implants and grafts
CPT/HCPCS: 36415; 80053; 84550; 85025; 87070; 89050; 89060; 99284

== ENCOUNTER 2020-01-22 02:19 | Inpatient (IN) | payer MEDICARE, OTHER ==
[2020-01-22] MEDS ORDERED: ONDANSETRON 4 MG (ODT) TAB ONE (03:11)
[2020-01-22] MEDS ORDERED: MORPHINE 4 MG/ML SYR ONE (03:11)
[2020-01-22] MEDS ORDERED: NA CHLORIDE 0.9% 1,000 ML ONE (03:11)
[2020-01-22] MEDS ORDERED: NA CHLORIDE 0.9% 500 ML ONE (03:11)
[2020-01-22 03:28] LABS: Absolute Lymphocytes (CBC) 1.3 K/uL (0.7-4.9); Hematocrit 41.6 % (39.6-49.0); Lymphocytes % 23.8 % (15.3-44.8); RBC Red Blood Cell Count 4.87 M/uL (4.33-5.43)
[2020-01-22 03:48] LABS: Albumin 2.7 g/dL (3.4-5.0); Bilirubin Direct 0.2 mg/dL (0-0.2); Bilirubin Total 0.6 mg/dL (0.2-1.0); Potassium 3.7 mmol/L (3.5-5.1); Protein, Total 7.6 g/dL (6.4-8.2)
[2020-01-22] MEDS ORDERED: FENTANYL CITR 100 MCG/2 ML ONE (04:14)
--- NOTE | 2020-01-22 04:32 | ER ---
Nurse's Notes [facility] Name: Natan Paulino Sr Age: 59 yrs Sex: Male : 1960 Arrival Date: 01/22/2020 Time: 02:21 Bed 7 Private MD: Diagnosis: Acute pancreatitis Presentation: 01/21 02:46 Chief complaint: Patient states: "I think I am having a pancreatitis flair up. it jd3 started yesterday. I do have a history of pancreatitis. I also drank some alcohol about 2 days ago that I think set it off.". Coronavirus screen: Proceed with normal triage. Ebola Screen: Patient negative for fever greater than or equal to 101.5 degrees Fahrenheit, and additional compatible Ebola Virus Disease symptoms. Initial Sepsis Screen: Does the patient meet any 2 criteria? No. Patient's initial sepsis screen is negative. Does the patient have a suspected source of infection? No. Patient's initial sepsis screen is negative. Risk Assessment: Do you want to hurt yourself or someone else? Patient reports no desire to harm self or others. Onset of symptoms was January 21, 2020. 02:46 Method Of Arrival: Wheelchair jd3 02:46 Acuity: NINO 3 jd3 Historical: - Allergies: 02:50 PENICILLINS; jd3 - Home Meds: 02:50 carvedilol Oral [Active]; Lasix 20 mg Oral tab 1 tab once daily [Active]; lisinopril 10 jd3 mg Oral tab 1 tab once daily [Active]; meloxicam Oral [Active]; Methocarbamol Oral [Active]; metoprolol tartrate 25 mg Oral tab 1 tab 2 times per day [Active]; - PMHx: 02:50 CHF; Gout; Hypertension; osteoarthritis; Pancreatitis; Rheumatoid Arthritis; TIA; jd3 - PSHx: 02:50 Heart stents; jd3 - Immunization history:: Adult Immunizations up to date. - Social history:: Smoking status: Patient denies any tobacco usage or history of. Screenin:55 Abuse screen: Denies threats or abuse. Nutritional screening: No deficits noted. jd3 Tuberculosis screening: No symptoms or risk factors identified. Fall Risk Ambulatory Aid- None/Bed Rest/Nurse Assist (0 pts). Gait- Normal/Bed Rest/Wheelchair (0 pts) Mental Status- Oriented to own ability (0 pts). Total Harrell Fall Scale indicates No Risk (0-24 pts). Assessment: 02:51 General: Appears in no apparent distress. uncomfortable, Behavior is calm, cooperative, jd3 appropriate for age. Pain: Complains of pain in left upper quadrant Quality of pain is described as sharp. Neuro: Level of Consciousness is awake, alert, obeys commands, Oriented to person, place, time, situation. Cardiovascular: Denies chest pain, Capillary refill < 3 seconds Patient's skin is warm and dry. Respiratory: Airway is patent Respiratory effort is even, unlabored, Respiratory pattern is regular, symmetrical, Denies cough, shortness of breath. GI: Abdomen is round non-distended, Abd is soft X 4 quads Abdomen is tender to palpation in right upper quadrant and left upper quadrant Reports upper abdominal pain, Patient currently denies diarrhea, nausea, vomiting. : No signs and/or symptoms were reported regarding the genitourinary system. EENT: No signs and/or symptoms were reported regarding the EENT system. Derm: Skin is intact, Skin is dry, Skin is normal, Skin temperature is warm. Musculoskeletal: Circulation, motion, and sensation intact. Range of motion: intact in all extremities. 04:12 Reassessment: Patient appears in no apparent distress at this time. No changes from jd3 previously documented assessment. Patient and/or family updated on plan of care and expected duration. Pain level reassessed. Patient is alert, oriented x 3, equal unlabored respirations, skin warm/dry/pink. 05:06 Reassessment: Patient appears in no apparent distress at this time. Patient and/or jd3 family updated on plan of care and expected duration. Pain level reassessed. Patient is alert, oriented x 3, equal unlabored respirations, skin warm/dry/pink. report given to Jennifer GARRIDO. Vital Signs: 02:50 BP 165 / 111; Pulse 78; Resp 20 S; Temp 98.1(TE); Pulse Ox 100% on R/A; Weight 102.06 jd3 kg (R); Height 6 ft. 3 in. (190.50 cm) (R); Pain 9/10; 04:12 BP 177 / 98; Pulse 80; Resp 18 S; Pulse Ox 95% on R/A; jd3 02:50 Body Mass Index 28.12 (102.06 kg, 190.50 cm) jd3 ED Course: 02:21 Patient arrived in ED. ds1 02:35 Adin Mott MD is Attending Physician. pkl 02:46 Ronan Barros RN is Primary Nurse. jd3 02:48 Triage completed. jd3 02:51 Arm band placed on. jd3 02:55 Patient has correct armband on for positive identification. Bed in low position. Call jd3 light in reach. Side rails up X 1. Adult w/ patient. Pulse ox on. NIBP on. 03:10 Inserted saline lock: 20 gauge in right antecubital area, using aseptic technique. tt3 04:16 Abdomen In Process Unspecified. EDMS 04:30 Abram Cerrato MD is Hospitalizing Provider. pkl 05:07 No provider procedures requiring assistance completed. Patient admitted, IV remains in jd3 place. Administered Medications: 03:01 Not Given (Duplicate Order): NS 0.9% 1000 ml IV at 1000 ml once pkl 03:02 Not Given (Duplicate Order): NS 0.9% 1000 ml IV at 125 ml/hr continuous pkl 03:15 Drug: NS 0.9% 500 ml Route: IV; Rate: bolus; Site: right antecubital; jd3 04:10 Follow up: Response: No adverse reaction; IV Status: Completed infusion; IV Intake: jd3 500ml 03:15 Drug: NS 0.9% 1000 ml Route: IV; Rate: 125 ml/hr; Site: right antecubital; jd3 05:17 Follow up: Response: No adverse reaction; IV Status: Infusion continued upon admission jd3 03:15 Drug: morphine 4 mg Route: IVP; Site: right antecubital; jd3 04:10 Follow up: Response: No adverse reaction; RASS: Restless (+1) jd3 03:16 Drug: Zofran (Ondansetron) 4 mg Route: IVP; Site: right antecubital; jd3 04:10 Follow up: Response: No adverse reaction jd3 04:09 Drug: fentaNYL (PF) 50 mcg Route: IVP; Site: right antecubital; jd3 05:05 Follow up: Response: No adverse reaction; RASS: Alert and Calm (0) jd3 Intake: 04:10 IV: 500ml; Total: 500ml. jd3 Outcome: 04:31 Decision to Hospitalize by Provider. erika 05:07 Admitted to Med/surg accompanied by tech, via wheelchair, room 205, with chart, Report jalvin called to Jennifer GARRIDO 05:07 Condition: stable 05:07 Instructed on the need for admit, Demonstrated understanding of instructions. 05:16 Patient left the ED. rosa m Signatures: Dispatcher [employer] EDMS Adin Mott MD MD pkMira Finley ds1 Ronan Barros RN RN jPierce De Oliveira tt3 Corrections: (The following items were deleted from the chart) 02:49 02:46 Onset of symptoms was January 22, 2020 rosa m jalvin 04:25 04:12 BP 181 / 119; Pulse 80bpm; Resp 18bpm; Spontaneous; Pulse Ox 95% RA; jd3 jd3 04:58 04:12 BP 177 / 118; Pulse 80bpm; Resp 18bpm; Spontaneous; Pulse Ox 95% RA; j jd3
--- NOTE | 2020-01-22 04:32 | EDPHYS ---
Physician Documentation [facility] Name: Natan Paulino Sr Age: 59 yrs Sex: Male : 1960 Arrival Date: 01/22/2020 Time: 02:21 Bed 7 Private MD: ED Physician Adin Mott HPI: 01/21 02:56 This 59 yrs old Black Male presents to ER via Wheelchair with complaints of Abdominal pkl Pain. 02:56 The patient presents with abdominal pain in the upper abdomen. Onset: The pkl symptoms/episode began/occurred yesterday. The symptoms do not radiate. Associated signs and symptoms: Pertinent positives: nausea and vomiting. The patient has experienced similar episodes in the past, a few times. Patient has H/O pancreatitis. Admit to drinking alcohol past 2 days. Historical: - Allergies: 02:50 PENICILLINS; jd3 - Home Meds: 02:50 carvedilol Oral [Active]; Lasix 20 mg Oral tab 1 tab once daily [Active]; lisinopril 10 jd3 mg Oral tab 1 tab once daily [Active]; meloxicam Oral [Active]; Methocarbamol Oral [Active]; metoprolol tartrate 25 mg Oral tab 1 tab 2 times per day [Active]; - PMHx: 02:50 CHF; Gout; Hypertension; osteoarthritis; Pancreatitis; Rheumatoid Arthritis; TIA; jd3 - PSHx: 02:50 Heart stents; jd3 - Immunization history:: Adult Immunizations up to date. - Social history:: Smoking status: Patient denies any tobacco usage or history of. ROS: 02:56 Eyes: Negative for injury, pain, redness, and discharge, ENT: Negative for injury, pkl pain, and discharge, Neck: Negative for injury, pain, and swelling, Cardiovascular: Negative for chest pain, palpitations, and edema, Respiratory: Negative for shortness of breath, cough, wheezing, and pleuritic chest pain. 02:56 Abdomen/GI: Positive for abdominal pain, nausea and vomiting, of the right upper quadrant and left upper quadrant. 02:56 Back: Negative for acute changes. 02:56 : Negative for urinary symptoms. 02:56 MS/extremity: Negative for acute changes. 02:56 Skin: Negative for rash. 02:56 Neuro: Negative for altered mental status. Exam: 02:56 Head/Face: Normocephalic, atraumatic. Eyes: Pupils equal round and reactive to light, pkl extra-ocular motions intact. Lids and lashes normal. Conjunctiva and sclera are non-icteric and not injected. Cornea within normal limits. Periorbital areas with no swelling, redness, or edema. ENT: Nares patent. No nasal discharge, no septal abnormalities noted. Tympanic membranes are normal and external auditory canals are clear. Oropharynx with no redness, swelling, or masses, exudates, or evidence of obstruction, uvula midline. Mucous membranes moist. Neck: Trachea midline, no thyromegaly or masses palpated, and no cervical lymphadenopathy. Supple, full range of motion without nuchal rigidity, or vertebral point tenderness. No Meningismus. Chest/axilla: Normal chest wall appearance and motion. Nontender with no deformity. No lesions are appreciated. Cardiovascular: Regular rate and rhythm with a normal S1 and S2. No gallops, murmurs, or rubs. Normal PMI, no JVD. No pulse deficits. Respiratory: Lungs have equal breath sounds bilaterally, clear to auscultation and percussion. No rales, rhonchi or wheezes noted. No increased work of breathing, no retractions or nasal flaring. 02:56 Abdomen/GI: Bowel sounds: normal, Palpation: moderate abdominal tenderness, in the right upper quadrant and left upper quadrant. 02:56 Back: Exam negative for acute changes. 02:56 : Exam negative for acute changes. 02:56 Musculoskeletal/extremity: Exam is negative for acute changes. 02:56 Skin: Exam negative for rash. 02:56 Neuro: Orientation: is normal, Mentation: is normal, Cranial nerves: grossly normal, Motor: is normal. Vital Signs: 02:50 BP 165 / 111; Pulse 78; Resp 20 S; Temp 98.1(TE); Pulse Ox 100% on R/A; Weight 102.06 jd3 kg (R); Height 6 ft. 3 in. (190.50 cm) (R); Pain 9/10; 04:12 BP 177 / 98; Pulse 80; Resp 18 S; Pulse Ox 95% on R/A; jd3 02:50 Body Mass Index 28.12 (102.06 kg, 190.50 cm) jd3 MDM: 02:35 Patient medically screened. pkl 04:29 Data reviewed: vital signs, nurses notes, lab test result(s), radiologic studies, CT pkl scan. ED course: Talked to ashley Camp. 01/21 02:55 Order name: Basic Metabolic Panel; Complete Time: 03:50 pkl 01/21 02:55 Order name: CBC with Diff; Complete Time: 03:50 pkl 01/21 02:55 Order name: Hepatic Function; Complete Time: 03:50 pkl 01/21 02:55 Order name: Lipase; Complete Time: 03:50 pkl 01/21 02:55 Order name: ETOH Level; Complete Time: 03:50 pkl 01/21 04:32 Order name: CBC with Automated Diff EDMS 01/21 04:32 Order name: CBC with Automated Diff EDMS 01/21 04:32 Order name: Comprehensive Metabolic Panel EDMS 01/21 04:32 Order name: Comprehensive Metabolic Panel EDMS 01/21 04:32 Order name: Lipase EDMS 01/21 04:32 Order name: Lipase EDMS 01/21 04:32 Order name: Lipid Profile EDMS 01/21 04:32 Order name: Lipid Profile EDMS 01/21 02:55 Order name: IV Saline Lock; Complete Time: 03:09 pkl 01/21 02:55 Order name: Labs collected and sent; Complete Time: 03:10 pkl 01/21 03:55 Order name: Abdomen EDMS 01/21 04:32 Order name: CONS Pharmacy Consult EDMS 01/21 04:32 Order name: NPO EDMS Administered Medications: 03:01 Not Given (Duplicate Order): NS 0.9% 1000 ml IV at 1000 ml once pkl 03:02 Not Given (Duplicate Order): NS 0.9% 1000 ml IV at 125 ml/hr continuous pkl 03:15 Drug: NS 0.9% 500 ml Route: IV; Rate: bolus; Site: right antecubital; jd3 04:10 Follow up: Response: No adverse reaction; IV Status: Completed infusion; IV Intake: jd3 500ml 03:15 Drug: NS 0.9% 1000 ml Route: IV; Rate: 125 ml/hr; Site: right antecubital; jd3 05:17 Follow up: Response: No adverse reaction; IV Status: Infusion continued upon admission jd3 03:15 Drug: morphine 4 mg Route: IVP; Site: right antecubital; jd3 04:10 Follow up: Response: No adverse reaction; RASS: Restless (+1) jd3 03:16 Drug: Zofran (Ondansetron) 4 mg Route: IVP; Site: right antecubital; jd3 04:10 Follow up: Response: No adverse reaction jd3 04:09 Drug: fentaNYL (PF) 50 mcg Route: IVP; Site: right antecubital; jd3 05:05 Follow up: Response: No adverse reaction; RASS: Alert and Calm (0) jd3 Disposition: 01/22/20 04:31 Hospitalization ordered by Abram Cerrato for Inpatient Admission. Preliminary diagnosis is Acute pancreatitis. - Bed requested for Telemetry/MedSurg (Inpatient). - Status is Inpatient Admission. jd3 - Condition is Stable. - Problem is new. - Symptoms are unchanged. Signatures: [facility] Kamilah Barnes RN RN dw Lam, Pin, MD MD [facility] Ronan Barros RN RN jd3 Corrections: (The following items were deleted from the chart) 03:55 03:32 Abdomen Pelvis W Con+CT.RAD.BRZ ordered. [facility] EDNH 04:36 04:31 Hospitalization Ordered by Abram Cerrato MD for Inpatient Admission. Preliminary diagnosis is Acute pancreatitis. Bed requested for Telemetry/MedSurg (Inpatient). Status is Inpatient Admission. Condition is Stable. Problem is new. Symptoms are unchanged. pk 05:16 04:36 01/22/2020 04:31 Hospitalization Ordered by Abram Cerrato MD for Inpatient jd3 Admission. Preliminary diagnosis is Acute pancreatitis. Bed requested for Telemetry/MedSurg (Inpatient). Status is Inpatient Admission. Condition is Stable. Problem is new. Symptoms are unchanged. dw
[2020-01-22] MEDS: NA CHLORIDE 0.9% 1,000 ML IV SCH ×3 (05:00→21:00)
[2020-01-22 05:37] VITALS: BMI 28.5
[2020-01-22] MEDS: MORPHINE 4 MG/ML SYR IV PRN ×4 (07:41→21:20)
[2020-01-22] MEDS: ONDANSETRON 4 MG/2 ML VIAL IV PRN ×2 (07:42→17:03)
[2020-01-22] MEDS ORDERED: cloNIDine HCL 0.1 MG TAB PO ONE (07:51)
--- NOTE | 2020-01-22 07:54 | P.HP ---
Certification for Inpatient Patient admitted to: Inpatient With expected LOS: >2 Midnights Patient will require the following post-hospital care: None Practitioner: I am a practitioner with admitting privileges, knowledge of patient current condition, hospital course, and medical plan of care. Services: Services provided to patient in accordance with Admission requirements found in Title 42 Section 412.3 of the Code of Federal Regulations Patient History Date of Service: 01/22/20 Reason for admission: ALCOHOLIC PANCREATITIS History of Present Illness: Patient is a 59-year-old gentleman came to the hospital with alcohol intoxication. Patient had an abdominal pain and intractable nausea and vomiting. His workup in the emergency room revealed he had acute pancreatitis. This is not his 1st admission for pancreatitis. He states he has tried to stop drinking but he has had a hard time quitting. He will be admitted to the hospital for IV hydration and pain control. We will continue keeping him NPO. Monitor his labs in the morning as well. Hopefully his pain is better and his labs are improved and we may start him on a clear liquid diet tomorrow. Allergies Penicillins Allergy (Verified 01/22/20 05:23) Hives/Rash Home Medications: Allopurinol 300 mg PO DAILY 01/22/20 Amiodarone HCl [Cordarone Tab] 200 mg PO DAILY 01/22/20 Atorvastatin Calcium 40 mg PO BEDTIME 01/22/20 Furosemide [Lasix*] 1 tab PO DAILY 01/22/20 Gabapentin [Neurontin] 100 mg PO TIDP PRN 01/22/20 Probenecid/Colchicine [Probenecid-Colchicine Tablet] 1 tab PO SEECOM 01/22/20 Sacubitril/Valsartan [Entresto 24 mg-26 mg Tablet] 1 tab PO DAILY 01/22/20 - Past Medical/Surgical History Has patient received pneumonia vaccine in the past: No Diabetic: No -: hypertension -: irregular heart beat -: PANCREATITIS -: TIA -: CHF -: Gout -: cardiac stent - Family History Father Medical History: Cancer, Liver disease Notes: asbestos. exposure Mother Notes: mom is healthy - Social History Smoking Status: Never smoker Alcohol use: Yes CD- Drugs: No Caffeine use: Yes Place of Residence: Home Review of Systems 10-point ROS is otherwise unremarkable Physical Examination - Vital Signs Temperature: 97.6 F Blood Pressure: 175/105 Pulse: 73 Respirations: 18 Pulse Ox (%): 98 - Physical Exam General: Alert, In no apparent distress, Oriented x3 HEENT: Atraumatic, PERRLA, Mucous membr. moist/pink, EOMI, Sclerae nonicteric Neck: Supple, 2+ carotid pulse no bruit, No LAD, Without JVD or thyroid abnormality Respiratory: Clear to auscultation bilaterally, Normal air movement Cardiovascular: Regular rate/rhythm, Normal S1 S2, No murmurs Gastrointestinal: Normal bowel sounds, Soft and benign, No rebound, No guarding, Distended, Tenderness Musculoskeletal: No clubbing, No swelling, No tenderness Integumentary: No rashes Neurological: Normal gait, Normal speech, Normal strength at 5/5 x4 extr, Normal tone, Sensation intact, Cranial nerves 3-12 intact, Normal affect Lymphatics: No axilla or inguinal lymphadenopathy - Studies Laboratory Data (last 24 hrs) 01/22/20 03:12: WBC 5.6, Hgb 13.9, Hct 41.6, Plt Count 188 01/22/20 03:12: Sodium 139, Potassium 3.7, BUN 20 H, Creatinine 1.69 H, Glucose 121 H, Total Bilirubin 0.6, AST 61 H, ALT 40, Alkaline Phosphatase 76, Lipase 1542 H Assessment & Plan - Problems (Diagnosis) (1) Acute pancreatitis Current Visit: Yes Status: Acute (2) Alcoholic pancreatitis Current Visit: Yes Status: Acute (3) Acute kidney injury Current Visit: No Status: Acute (4) Chronic kidney disease, stage 3 Current Visit: No Status: Acute (5) Hypertensive urgency Onset Date: 10/31/16 Current Visit: No Status: Acute (6) Chronic alcoholism Current Visit: No Status: Chronic (7) Obesity (BMI 30.0-34.9) Current Visit: No Status: Chronic - Plan Plan: 1. Aggressive IV hydration 2. Pain control 3. NPO 4. Repeat labs including lipase in the morning 5. Monitor for withdrawals 6. Candle Cutter regarding alcohol cessation 7. GI and DVT prophylaxis Discharge Plan: Home Plan to discharge in: Greater than 2 days - Advance Directives Does patient have a Living Will: No Does patient have a Durable POA for Healthcare: No - Code Status/Comfort Care Code Status Assessed: Yes Code Status: Full Code Critical Care: No Time Spent Managing PTS Care (In Minutes): 45
[2020-01-22] MEDS: chlordiazePOXIDE HCl 5 MG CAP PO SCH ×3 (09:30→22:30)
[2020-01-22] MEDS ORDERED: METOPROLOL TAR 50 MG TAB PO ONE (10:00)
[2020-01-22] MEDS ORDERED: LORazepam 2 MG/ML VIAL IV PRN (13:31)
[2020-01-22] MEDS: METOPROLOL TAR 50 MG TAB PO SCH (17:03)
--- NOTE | 2020-01-22 21:00 | RAD REPORT ---
CLINICAL HISTORY: The patient is 59 years old and is Male; ABD PAIN TECHNIQUE: Axial computed tomography images of the abdomen and pelvis without intravenous contrast. Sagittal and coronal reformatted images were created and reviewed. This CT exam was performed usi ng one or more of the following dose reduction techniques: automated exposure control, adjustment o f the mA and/or kV according to patient size, and/or use of iterative reconstruction technique. COMPARISON: CT of the abdomen and pelvis October 28, 2019 FINDINGS: LUNG BASES: Unremarkable. No mass. No consolidation. ABDOMEN: LIVER: The liver is enlarged and mildly fatty. GALLBLADDER AND BILE DUCTS: No calcified stones. No ductal dilation. PANCREAS: Mild minimal inflammatory fat stranding involving the tail the pancreas is noted. No ductal dilation. SPLEEN: Unremarkable. ADRENALS: Unremarkable. No mass. KIDNEYS AND URETERS: No obstructing stones. No hydronephrosis. No perinephric fluid. STOMACH AND BOWEL: The stomach is minimally distended with food contents. The small bowel is norm al in caliber. Stool is present throughout colon. There is no mucosal thickening or evidence of bowel obstruction. PELVIS: APPENDIX: The appendix is normal in caliber without surrounding inflammation. BLADDER: The bladder is moderately distended. No stones. REPRODUCTIVE: Unremarkable as visualized. ABDOMEN and PELVIS: INTRAPERITONEAL SPACE: Unremarkable. No free air. No significant fluid collection. BONES/JOINTS: Minimal degenerative change of the spine is present. SOFT TISSUES: There are small bilateral fat containing inguinal hernias. VASCULATURE: Unremarkable. No abdominal aortic aneurysm. LYMPH NODES: Unremarkable. No enlarged lymph nodes. IMPRESSION: Findings consistent with mild acute pancreatitis. Electronically signed by: Christiane Mancia MD 01/22/2020 5:04 AM CDT Due to temporary technical issues with the PACS/Fluency reporting system, reports are being signed by the in house radiologist without review a sa courtesy to ensure prompt reporting. The interpreting r adiologist is fully responsible for the content of the report.
[2020-01-23] MEDS: ACETAMINOPHEN 500 MG TAB PO PRN ×2 (00:11→13:15)
[2020-01-23] MEDS: MORPHINE 4 MG/ML SYR IV PRN ×2 (03:31→20:51)
[2020-01-23] MEDS: NA CHLORIDE 0.9% 1,000 ML IV SCH ×3 (04:25→19:10)
[2020-01-23] MEDS: METOPROLOL TAR 50 MG TAB PO SCH (05:08)
--- NOTE | 2020-01-23 05:42 | P.PN ---
Subjective Date of Service: 01/23/20 Subjective: No new changes, No C/O voiced, Other (Patient continues to have pain) Review of Systems 10-point ROS is otherwise unremarkable Physical Examination - Vital Signs Temperature: 97.6 F Blood Pressure: 175/105 Pulse: 73 Respirations: 18 Pulse Ox (%): 98 - Physical Exam General: Alert, In no apparent distress, Oriented x3 Respiratory: Clear to auscultation bilaterally, Normal air movement Cardiovascular: Regular rate/rhythm, Normal S1 S2, No murmurs Gastrointestinal: Normal bowel sounds, Soft and benign, Non-distended, No rebound, No guarding, Tenderness Musculoskeletal: No clubbing, No swelling, No tenderness Neurological: Normal tone, Sensation intact, Cranial nerves 3-12 intact - Studies Medications List Reviewed: Yes Assessment & Plan - Problems (Diagnosis) (1) Acute pancreatitis Current Visit: Yes Status: Acute (2) Alcoholic pancreatitis Current Visit: Yes Status: Acute (3) Acute kidney injury Current Visit: No Status: Acute (4) Chronic kidney disease, stage 3 Current Visit: No Status: Acute (5) Hypertensive urgency Onset Date: 10/31/16 Current Visit: No Status: Acute (6) Chronic alcoholism Current Visit: No Status: Chronic (7) Obesity (BMI 30.0-34.9) Current Visit: No Status: Chronic - Plan Plan: 1. Aggressive IV hydration 2. Pain control 3. NPO 4. Repeat labs including lipase in the morning 5. Monitor for withdrawals 6. Cable Splicer Assistant regarding alcohol cessation 7. GI and DVT prophylaxis Discharge Plan: Home Plan to discharge in: Greater than 2 days - Advance Directives Does patient have a Living Will: No Does patient have a Durable POA for Healthcare: No - Code Status/Comfort Care Code Status: Full Code Critical Care: No Time Spent Managing PTS Care (In Minutes): 35
[2020-01-23 06:03] LABS: Absolute Lymphocytes (CBC) 1.4 K/uL (0.7-4.9); Basophils % 0.6 % (0-1.3); Hematocrit 40.6 % (39.6-49.0); Lymphocytes % 24.1 % (15.3-44.8); RBC Red Blood Cell Count 4.69 M/uL (4.33-5.43)
[2020-01-23 07:02] LABS: Albumin 2.6 g/dL (3.4-5.0); Potassium 4.8 mmol/L (3.5-5.1); Protein, Total 7.1 g/dL (6.4-8.2)
[2020-01-23] MEDS ORDERED: GABAPENTIN 100 MG CAP PO PRN (07:22)
[2020-01-23] MEDS ORDERED: COLCHICINE PO SCH (07:30)
[2020-01-23] MEDS ORDERED: PROBENECID PO SCH (07:30)
[2020-01-23] MEDS ORDERED: FUROSEMIDE 40 MG TABLET PO SCH (09:00)
[2020-01-23] MEDS: FUROSEMIDE 20 MG/ 2ML VIAL IV SCH ×2 (09:10→17:17)
[2020-01-23] MEDS: AMIODARONE HCL 200 MG TAB PO SCH (09:11)
[2020-01-23] MEDS: allopurinoL 300 MG TAB PO SCH (09:11)
[2020-01-23] MEDS: SACUBITRIL/VALSARTAN 24/26 MG TAB PO SCH (09:11)
[2020-01-23] MEDS: chlordiazePOXIDE HCl 5 MG CAP PO SCH ×3 (09:11→20:51)
[2020-01-23] MEDS: METOPROLOL TAR 25 MG TAB PO SCH (17:17)
[2020-01-23] MEDS ORDERED: ATORVASTATIN 40 MG TAB PO SCH (21:00)
[2020-01-23 22:51] VITALS: O2SAT 99
[2020-01-24] MEDS: FUROSEMIDE 20 MG/ 2ML VIAL IV SCH (00:26)
[2020-01-24] MEDS: NA CHLORIDE 0.9% 1,000 ML IV SCH (05:38)
[2020-01-24] MEDS: METOPROLOL TAR 25 MG TAB PO SCH (05:38)
[2020-01-24 06:15] LABS: Absolute Lymphocytes (CBC) 1.1 K/uL (0.7-4.9); Basophils % 0.7 % (0-1.3); Hematocrit 41.1 % (39.6-49.0); Lymphocytes % 21.1 % (15.3-44.8); RBC Red Blood Cell Count 4.82 M/uL (4.33-5.43)
[2020-01-24 06:33] LABS: Albumin 2.7 g/dL (3.4-5.0); Protein, Total 7.4 g/dL (6.4-8.2)
[2020-01-24] MEDS: AMIODARONE HCL 200 MG TAB PO SCH (09:04)
[2020-01-24] MEDS: SACUBITRIL/VALSARTAN 24/26 MG TAB PO SCH (09:05)
[2020-01-24] MEDS: chlordiazePOXIDE HCl 5 MG CAP PO SCH ×2 (09:05→12:41)
[2020-01-24] MEDS: allopurinoL 300 MG TAB PO SCH (09:05)
--- NOTE | 2020-01-24 10:57 | P.DS ---
Discharge Date: 01/24/20 Disposition: ROUTINE DISCHARGE Discharge Condition: GOOD Reason for Admission: ALCOHOLIC PANCREATITIS - Problems (1) Acute pancreatitis Status: Acute (2) Alcoholic pancreatitis Status: Acute (3) Acute kidney injury Status: Acute (4) Chronic kidney disease, stage 3 Status: Acute (5) Hypertensive urgency Onset Date: 10/31/16 Status: Acute (6) Chronic alcoholism Status: Chronic (7) Obesity (BMI 30.0-34.9) Status: Chronic Brief History of Present Illness: Patient is a 59-year-old gentleman came to the hospital with alcohol intoxication. Patient had an abdominal pain and intractable nausea and vomiting. His workup in the emergency room revealed he had acute pancreatitis. This is not his 1st admission for pancreatitis. He states he has tried to stop drinking but he has had a hard time quitting. He will be admitted to the hospital for IV hydration and pain control. We will continue keeping him NPO. Monitor his labs in the morning as well. Hopefully his pain is better and his labs are improved and we may start him on a clear liquid diet tomorrow. Hospital Course: Patient has done well during hospital stay. Patient is stable for discharge home with outpatient follow up. Patient is no longer having pain. Patient is tolerating diet. Patient will follow with gastroenterology and wanted 2 weeks and PCP and wanted to eat. Vital Signs/Physical Exam: Temp Pulse Resp BP Pulse Ox 97.8 F 59 18 152/91 H 99 01/24/20 08:00 01/24/20 08:00 01/24/20 08:00 01/24/20 08:00 01/24/20 08:00 General: Alert, In no apparent distress, Oriented x3 Laboratory Data at Discharge: WBC 5.2 K/uL (4.3-10.9) 01/24/20 05:47 Hgb 13.9 g/dL (13.6-17.9) 01/24/20 05:47 Hct 41.1 % (39.6-49.0) 01/24/20 05:47 Plt Count 176 K/uL (152-406) 01/24/20 05:47 Sodium 138 mmol/L (136-145) 01/24/20 05:47 Potassium 4.0 mmol/L (3.5-5.1) 01/24/20 05:47 BUN 19 mg/dL (7-18) H 01/24/20 05:47 Creatinine 1.81 mg/dL (0.55-1.3) H 01/24/20 05:47 Glucose 103 mg/dL (74-106) 01/24/20 05:47 Total Bilirubin 1.0 mg/dL (0.2-1.0) 01/24/20 05:47 AST 43 U/L (15-37) H 01/24/20 05:47 ALT 31 U/L (12-78) 01/24/20 05:47 Alkaline Phosphatase 74 U/L (45-117) 01/24/20 05:47 Triglycerides 119 mg/dL (<150) 01/23/20 05:21 Cholesterol 205 mg/dL (<200) H 01/23/20 05:21 HDL Cholesterol 105 mg/dL (40-60) H 01/23/20 05:21 Cholesterol/HDL Ratio 1.95 01/23/20 05:21 Lipase 488 U/L (73-393) H 01/24/20 05:47 Home Medications: Allopurinol 300 mg PO DAILY 01/22/20 Amiodarone HCl [Cordarone*] 200 mg PO DAILY 01/22/20 Atorvastatin Calcium 40 mg PO BEDTIME 01/22/20 Furosemide [Lasix*] 1 tab PO DAILY 01/22/20 Gabapentin [Neurontin*] 100 mg PO TIDP PRN 01/22/20 Probenecid/Colchicine [Probenecid-Colchicine Tablet] 1 tab PO SEECOM 01/22/20 Sacubitril/Valsartan [Entresto 24 mg-26 mg Tablet] 1 tab PO DAILY 01/22/20 Metoprolol Tartrate [Lopressor*] 25 mg PO BID 6AM 6PM #60 tab 01/24/20 chlordiazePOXIDE HCl [Librium*] 10 mg PO TID #40 cap 01/24/20 New Medications: chlordiazePOXIDE HCl [Librium*] 10 mg PO TID #40 cap Metoprolol Tartrate [Lopressor*] 25 mg PO BID 6AM 6PM #60 tab Patient Discharge Instructions: OK TO DC IV AND DC HOME. PLEASE CALL IN LIBRIUM TO PATIENT'S PHARMACY. FOLLOW-UP WITH PRIMARY CARE PROVIDER IN 1-2 WEEKS. FOLLOW-UP WITH CARDIOLOGY IN 1-2 WEEKS. Follow-up with Gastroenterology-Dr. Mckenna or Dr. Jacobsen-in 2-4 weeks. RETURN TO THE ER IF Symptoms worsen. CALL DR. CALI AT [phone] IF ANY QUESTIONS REGARDING HOSPITAL STAY. PLEASE CALL THE FLOOR AT [phone] IF ANY MEDICATION OR NURSING QUESTIONS. Diet: AHA (low fat) Activity: Fall precautions Time spent managing pt's care (in minutes): 20
[2020-01-24 12:36] VITALS: BP 165/92; TEMP 97.5
== END 2020-01-24 12:47 | disposition home or self-care (01) | DRG 439 ==
LOC: ER 02:19 → ERHOLD 04:34 → 2ND 05:07
PROVIDERS: ADMIT Hospitalist; ATTEND Hospitalist
DX: K85.20 Alcohol induced acute pancreatitis without necrosis or infection (principal); N17.9 Acute kidney failure, unspecified; I12.9 Hypertensive chronic kidney disease with stage 1 through stage 4 chronic kidney disease, or unspecified chronic kidney disease; N18.3 Chronic kidney disease, stage 3 (moderate); I16.0 Hypertensive urgency; E66.9 Obesity, unspecified; F10.229 Alcohol dependence with intoxication, unspecified; Z68.30 Body mass index [BMI] 30.0-30.9, adult; Z79.899 Other long term (current) drug therapy; Z88.0 Allergy status to penicillin; Z86.73 Personal history of transient ischemic attack (TIA), and cerebral infarction without residual deficits; Z20.828 Contact with and (suspected) exposure to other viral communicable diseases; Z95.5 Presence of coronary angioplasty implant and graft
CPT/HCPCS: 36415; 74176; 80048; 80053; 80061; 80076; 80320; 83690; 85025; 96361; 96374; 96375; 99285; J1940; J2405; J3010; J7030; J7040; U0002

== ENCOUNTER 2020-04-01 09:50 | Inpatient (IN) | payer MEDICARE, OTHER ==
[2020-04-01] MEDS ORDERED: NA CHLORIDE 0.9% 1,000 ML ONE (10:44)
[2020-04-01] MEDS ORDERED: ONDANSETRON 4 MG/2 ML VIAL ONE ×2 (10:44→12:07)
[2020-04-01 11:01] LABS: Basophils % 0.6 % (0-1.3); Hematocrit 44.9 % (39.6-49.0); Lymphocytes % 15.5 % (15.3-44.8); MPV 8.7 fL (7.6-11.3); RBC Red Blood Cell Count 5.16 M/uL (4.33-5.43)
--- NOTE | 2020-04-01 11:02 | RAD REPORT ---
EXAM DESCRIPTION: CT - Head Brain Wo Cont - 04/01/2020 10:48 am CLINICAL HISTORY: Headache COMPARISON: 2017 TECHNIQUE: Computed axial tomography of the head was obtained. IV contrast was not requested. All CT scans are performed using dose optimization technique as appropriate and may include automated exposure control or mA/KV adjustment according to patient size. FINDINGS: An intracranial bleed is not seen . The ventricles are normal in caliber. No extra-axial fluid collection is noted. Fluid within the sinuses/ mastoids is not seen. IMPRESSION: No acute intracranial abnormality is seen. If patient's symptoms persist MRI of the bra in would be recommended.
[2020-04-01 11:06] LABS: Protime INR 0.96
--- NOTE | 2020-04-01 11:34 | RAD REPORT ---
EXAM DESCRIPTION: Catarina Single View04/01/2020 11:27 am CLINICAL HISTORY: Abdominal pain COMPARISON: October 2019 FINDINGS: The lungs appear clear of acute infiltrate. The heart is mildly enlarged IMPRESSION: No acute abnormalities displayed
[2020-04-01 11:37] LABS: Albumin 3.4 g/dL (3.4-5.0); Bilirubin Direct 0.3 mg/dL (0-0.2); Bilirubin Total 1.3 mg/dL (0.2-1.0); Magnesium 1.6 mg/dL (1.8-2.4); Potassium 4.2 mmol/L (3.5-5.1); Protein, Total 9.1 g/dL (6.4-8.2)
[2020-04-01 11:39] LABS: Troponin (Emerg Dept Use Only) 0.59 ng/mL (0.0-0.045)
[2020-04-01] MEDS ORDERED: METOPROLOL TAR 25 MG TAB ONE (12:06)
[2020-04-01] MEDS ORDERED: lisinopriL 10 MG TAB ONE (12:06)
[2020-04-01] MEDS ORDERED: MORPHINE 4 MG/ML SYR ONE ×2 (12:07→14:19)
[2020-04-01] MEDS ORDERED: ASPIRIN 81 MG CHEWABLE TABLET ONE (12:07)
--- NOTE | 2020-04-01 13:28 | RAD REPORT ---
EXAM DESCRIPTION: CT - Abdomen Pelvis Wo Contrast - 04/01/2020 12:55 pm CLINICAL HISTORY: Abdominal pain. ABD PAIN COMPARISON: Abdomen Pelvis Wo Contrast dated 01/22/2020 TECHNIQUE: CT imaging of the abdomen and pelvis was performed without contrast. Solid organ, bowel a nd vascular assessment is limited due to lack of IV and oral contrast. All CT scans are performed using dose optimization technique as appropriate and may include automated exposure control or mA/KV adjustment according to patient size. FINDINGS: The lower lung elise are clear.Small hiatal hernia. The liver, spleen, adrenal glands and kidneys are within normal limits for a limited non-contrast exa mination.Small cyst right renal upper pole measuring 8 mm. Subtle inflammatory fat stranding surrounding the tail of the pancreas suggests possible early/mild p ancreatitis. No bowel obstruction, free air, free fluid or abscess. Small fat containing umbilical hernia. The ap pendix is normal. The osseous structures are within normal limits.Moderate fat containing inguinal hernias, greater on the right. IMPRESSION: Early/mild acute pancreatitis is suspected. A limited non-contrast examination was performed as detailed.
[2020-04-01] MEDS ORDERED: ACETAMINOPHEN 500 MG TAB PO PRN (14:49)
[2020-04-01] MEDS ORDERED: ONDANSETRON 4 MG/2 ML VIAL IV PRN (14:49)
[2020-04-01] MEDS: NA CHLORIDE 0.9% 1,000 ML IV SCH ×2 (15:00→18:44)
--- NOTE | 2020-04-01 15:33 | ER ---
Nurse's Notes [facility] Name: Natan Paulino Sr Age: 59 yrs Sex: Male : 1960 Arrival Date: 04/01/2020 Time: 09:51 Bed 18 Private MD: Gloria Key Diagnosis: Acute pancreatitis Presentation: 04/01 10:04 Chief complaint: N/V/D, abdominal pain, headache, generalized weakness, and numbness of hb feet x 2-3 days. Shaking and diaphoretic in triage. Coronavirus screen: Client presents with at least one sign or symptom that may indicate coronavirus-19. Standard/surgical mask placed on the client. Provider contacted for isolation considerations. Ebola Screen: No symptoms or risks identified at this time. Initial Sepsis Screen: Does the patient meet any 2 criteria? No. Patient's initial sepsis screen is negative. Does the patient have a suspected source of infection? No. Patient's initial sepsis screen is negative. Risk Assessment: Do you want to hurt yourself or someone else? Patient reports no desire to harm self or others. Onset of symptoms was March 31, 2020. 10:04 Method Of Arrival: Wheelchair hb 10:04 Acuity: NINO 2 hb Historical: - Allergies: 10:07 PENICILLINS; hb - Home Meds: 11:44 Lasix 20 mg Oral tab 1 tab once daily [Active]; lisinopril 10 mg Oral tab 1 tab once ph daily [Active]; meloxicam Oral [Active]; Methocarbamol Oral [Active]; metoprolol tartrate 25 mg Oral tab 1 tab 2 times per day [Active]; - PMHx: 10:07 CHF; Gout; Hypertension; osteoarthritis; Pancreatitis; Rheumatoid Arthritis; TIA; hb - PSHx: 10:07 Heart stents; hb - Immunization history:: Adult Immunizations up to date. - Social history:: Smoking status: Patient denies any tobacco usage or history of. Screenin:13 Abuse screen: Denies threats or abuse. Denies injuries from another. Nutritional ph screening: No deficits noted. Tuberculosis screening: No symptoms or risk factors identified. Fall Risk None identified. Assessment: 10:51 General: Appears in no apparent distress. uncomfortable, well groomed, Behavior is ph calm, cooperative, appropriate for age, Denies fever, chills. Pain: Complains of pain in abdomen Quality of pain is described as crampy, Aggravated by reports that cramping occurs prior to vomiting. Neuro: Level of Consciousness is awake, alert, obeys commands, Oriented to person, place, time, situation, Reports dizziness, numbness in right foot and left foot Denies weakness headache. Cardiovascular: Reports diaphoresis, lightheadedness, nausea, vomiting, Capillary refill < 3 seconds in bilateral fingers Patient's skin is warm and dry. Respiratory: Airway is patent Respiratory effort is even, unlabored, Respiratory pattern is regular, symmetrical. GI: Abdomen is round non-distended, Reports cramping, nausea, vomiting, Patient currently denies diarrhea. Derm: Skin is intact, Skin is diaphoretic, Skin is normal. Musculoskeletal: Circulation, motion, and sensation intact. Range of motion: intact in all extremities. 11:44 Reassessment: Patient appears in no apparent distress at this time. Patient and/or ph family updated on plan of care and expected duration. Pain level reassessed. Patient is alert, oriented x 3, equal unlabored respirations, skin warm/dry/pink. Pt reports that nausea has improved, no longer diaphoretic, BP elevated at 178 systolic, pt states that he did not take BP medication this morning d/t N/V. 14:13 Reassessment: PT c/o headache and pain on L lateral abdominal area. Notified provider. ca1 VO morphine 4mg IV. 15:30 Reassessment: Patient appears in no apparent distress at this time. Patient and/or ph family updated on plan of care and expected duration. Pain level reassessed. Patient is alert, oriented x 3, equal unlabored respirations, skin warm/dry/pink. 16:01 Reassessment: Report called to RADHIKA ROCK. ph Vital Signs: 10:04 BP 137 / 102; Pulse 77; Resp 16; Temp 98.2; Pulse Ox 97% on R/A; Weight 108.86 kg; hb Height 6 ft. 3 in. (190.50 cm); Pain 0/10; 11:45 BP 178 / 115; Pulse 63; Resp 18; Pulse Ox 98% on R/A; ph 12:45 BP 181 / 87; Pulse 62; Resp 18; Pulse Ox 98% on R/A; ph 14:13 BP 190 / 92; Pulse 56; Resp 18 S; Pulse Ox 100% on R/A; ca1 15:30 BP 177 / 92; Pulse 53; Resp 16; Pulse Ox 99% on R/A; ph 15:50 BP 179 / 76; Pulse 54; Resp 16; Temp 97.8; Pulse Ox 99% on R/A; ph 10:04 Body Mass Index 30.00 (108.86 kg, 190.50 cm) hb ED Course: 09:51 Patient arrived in ED. mr 09:52 Gloria Key is Private Physician. mr 10:06 Triage completed. hb 10:07 Arm band placed on. hb 10:09 Giselle Paulino, RN is Primary Nurse. ph 10:11 Manuel Kruse MD is Attending Physician. kdr 10:13 Patient has correct armband on for positive identification. Placed in gown. Bed in low ph position. Call light in reach. Side rails up X 1. fws faculty assistant on. Pulse ox on. NIBP on. Door closed. Noise minimized. 10:40 Initial lab(s) drawn, by me, sent to lab. Inserted saline lock: 20 gauge in right ph antecubital area, using aseptic technique. Blood collected. 10:48 CT Head Brain wo Cont In Process Unspecified. EDMS 11:27 XRAY Chest (1 view) In Process Unspecified. EDMS 12:55 Abdomen In Process Unspecified. EDMS 15:32 Anton Hayes DO is Hospitalizing Provider. kb 16:04 No provider procedures requiring assistance completed. Patient admitted, IV remains in ph place. Administered Medications: 10:45 Drug: Zofran (Ondansetron) 4 mg Route: IVP; Site: right antecubital; ph 11:15 Follow up: Response: No adverse reaction; Nausea is decreased; Vomiting decreased ph 11:40 Drug: NS 0.9% 1000 ml Route: IV; Rate: 1 bolus; Site: right antecubital; ph 13:00 Follow up: Response: No adverse reaction; IV Status: Completed infusion; IV Intake: ph 1000ml 12:14 Drug: Aspirin Chewable Tablet 324 mg Route: PO; ph 16:21 Follow up: Response: No adverse reaction ph 12:14 Drug: morphine 4 mg Route: IVP; Site: right antecubital; ph 12:30 Follow up: Response: No adverse reaction; Pain is decreased; RASS: Alert and Calm (0) ph 12:15 Not Given (Other Intervention Used): cloNIDine 0.1 mg PO once ph 12:15 Drug: Lisinopril 10 mg Route: PO; ph 16:20 Follow up: Response: No adverse reaction ph 12:15 Drug: Metoprolol 25 mg Route: PO; ph 16:20 Follow up: Response: No adverse reaction ph 14:10 Drug: morphine 4 mg {Note: rass 0.} Route: IVP; Site: right antecubital; ca1 14:30 Follow up: Response: No adverse reaction; Pain is decreased; RASS: Alert and Calm (0) ph 15:46 Not Given (Other Intervention Used): Zofran (Ondansetron) 4 mg IVP once; over 2 minutes ph Point of Care Testing: Blood Glucose: 10:12 Blood Glucose: 102 mg/dL; hb Ranges: Intake: 13:00 IV: 1000ml; Total: 1000ml. ph Outcome: 15:32 Decision to Hospitalize by Provider. kb 16:05 Admitted to Med/surg accompanied by tech, via wheelchair, room 211, with chart, Report ph called to TJ 16:05 Condition: stable 16:05 Instructed on the need for admit. 16:23 Patient left the ED. ph Signatures: Dispatcher [employer] Yisel Brody, OR ASSISTANT-C OR ASSISTANT-Manuel Andre MD MD kdr Rivera, Mary mr Giselle Paulino RN RN Lanie Bobo RN RN Lea Scott RN RN ca1
--- NOTE | 2020-04-01 15:33 | EDPHYS ---
Physician Documentation [facility] Name: Natan Paulino Sr Age: 59 yrs Sex: Male : 1960 Arrival Date: 04/01/2020 Time: 09:51 Bed 18 Private MD: Gloria Key ED Physician Manuel Kruse Historical: - Allergies: 04/01 10:07 PENICILLINS; hb - Home Meds: 11:44 Lasix 20 mg Oral tab 1 tab once daily [Active]; lisinopril 10 mg Oral tab 1 tab once ph daily [Active]; meloxicam Oral [Active]; Methocarbamol Oral [Active]; metoprolol tartrate 25 mg Oral tab 1 tab 2 times per day [Active]; - PMHx: 10:07 CHF; Gout; Hypertension; osteoarthritis; Pancreatitis; Rheumatoid Arthritis; TIA; hb - PSHx: 10:07 Heart stents; hb - Immunization history:: Adult Immunizations up to date. - Social history:: Smoking status: Patient denies any tobacco usage or history of. Vital Signs: 10:04 BP 137 / 102; Pulse 77; Resp 16; Temp 98.2; Pulse Ox 97% on R/A; Weight 108.86 kg; hb Height 6 ft. 3 in. (190.50 cm); Pain 0/10; 11:45 BP 178 / 115; Pulse 63; Resp 18; Pulse Ox 98% on R/A; ph 12:45 BP 181 / 87; Pulse 62; Resp 18; Pulse Ox 98% on R/A; ph 14:13 BP 190 / 92; Pulse 56; Resp 18 S; Pulse Ox 100% on R/A; ca1 15:30 BP 177 / 92; Pulse 53; Resp 16; Pulse Ox 99% on R/A; ph 15:50 BP 179 / 76; Pulse 54; Resp 16; Temp 97.8; Pulse Ox 99% on R/A; ph 10:04 Body Mass Index 30.00 (108.86 kg, 190.50 cm) hb MDM: 15:32 Patient medically screened. kb 04/01 10:11 Order name: Basic Metabolic Panel; Complete Time: 11:51 kdr 04/01 10:11 Order name: CBC with Diff; Complete Time: 11:51 kdr 04/01 10:11 Order name: LFT's; Complete Time: 11:51 kdr 04/01 10:11 Order name: Magnesium; Complete Time: 11:51 kdr 04/01 10:11 Order name: NT PRO-BNP; Complete Time: 11:51 kdr 04/01 10:11 Order name: PT-INR; Complete Time: 11:51 kdr 04/01 10:11 Order name: Troponin (emerg Dept Use Only); Complete Time: 11:51 kdr 04/01 10:21 Order name: Glucose, Ancillary Testing; Complete Time: 11:51 EDMS 04/01 10:21 Order name: UDS kdr 04/01 10:21 Order name: ETOH Level kdr 04/01 10:22 Order name: Urine Drug Screen EDMS 04/01 10:22 Order name: Alcohol Serum/Plasma; Complete Time: 11:51 EDMS 04/01 12:35 Order name: Lipase kdr 04/01 12:35 Order name: Lipase; Complete Time: 15:32 EDMS 04/01 10:11 Order name: XRAY Chest (1 view); Complete Time: 11:51 kdr 04/01 14:52 Order name: Urinalysis EDMS 04/01 14:52 Order name: CBC with Automated Diff EDMS 04/01 14:52 Order name: CBC with Automated Diff EDMS / 14:52 Order name: Comprehensive Metabolic Panel EDMS 04/01 14:52 Order name: Comprehensive Metabolic Panel EDMS 04/01 14:52 Order name: Lipid Profile EDMS 04/01 14:52 Order name: Lipid Profile EDMS 04/01 14:52 Order name: Magnesium EDMS 04/01 14:52 Order name: Magnesium EDMS 14 14:52 Order name: Phosphorus EDMS 04/01 14:52 Order name: Phosphorus EDMS /14 14:52 Order name: Protime (+INR) EDMS 04/01 14:52 Order name: Protime (+INR) EDMS /14 14:52 Order name: PTT, Activated Partial Thromb EDMS 04/01 14:52 Order name: PTT, Activated Partial Thromb EDMS 04/01 10:11 Order name: EKG; Complete Time: 10:12 kdr 14 10:11 Order name: Cardiac monitoring; Complete Time: 10:49 kdr 04/01 10:11 Order name: EKG - Nurse/Tech; Complete Time: 11:41 kdr 04/01 10:11 Order name: IV Saline Lock; Complete Time: 10:50 kdr 04/01 10:11 Order name: Labs collected and sent; Complete Time: 10:50 kdr 04/01 10:11 Order name: O2 Per Protocol; Complete Time: 10:50 kdr 04/01 10:11 Order name: O2 Sat Monitoring; Complete Time: 10:50 kdr 04/01 10:23 Order name: CT Head Brain wo Cont; Complete Time: 11:51 kdr 04/01 12:44 Order name: Abdomen ; Complete Time: 15:32 EDMS 04/01 14:52 Order name: NPO EDMS Administered Medications: 10:45 Drug: Zofran (Ondansetron) 4 mg Route: IVP; Site: right antecubital; ph 11:15 Follow up: Response: No adverse reaction; Nausea is decreased; Vomiting decreased ph 11:40 Drug: NS 0.9% 1000 ml Route: IV; Rate: 1 bolus; Site: right antecubital; ph 13:00 Follow up: Response: No adverse reaction; IV Status: Completed infusion; IV Intake: ph 1000ml 12:14 Drug: Aspirin Chewable Tablet 324 mg Route: PO; ph 16:21 Follow up: Response: No adverse reaction ph 12:14 Drug: morphine 4 mg Route: IVP; Site: right antecubital; ph 12:30 Follow up: Response: No adverse reaction; Pain is decreased; RASS: Alert and Calm (0) ph 12:15 Not Given (Other Intervention Used): cloNIDine 0.1 mg PO once ph 12:15 Drug: Lisinopril 10 mg Route: PO; ph 16:20 Follow up: Response: No adverse reaction ph 12:15 Drug: Metoprolol 25 mg Route: PO; ph 16:20 Follow up: Response: No adverse reaction ph 14:10 Drug: morphine 4 mg {Note: rass 0.} Route: IVP; Site: right antecubital; ca1 14:30 Follow up: Response: No adverse reaction; Pain is decreased; RASS: Alert and Calm (0) ph 15:46 Not Given (Other Intervention Used): Zofran (Ondansetron) 4 mg IVP once; over 2 minutes ph Point of Care Testing: Blood Glucose: 10:12 Blood Glucose: 102 mg/dL; hb Ranges: Critical Glucose Levels:Adult <50 mg/dl or >400 mg/dl <40 mg/dl or >180 mg/dl Disposition: 04/01/20 15:32 Hospitalization ordered by Anton Hayes for Inpatient Admission. Preliminary diagnosis is Acute pancreatitis. - Bed requested for Telemetry/MedSurg (Inpatient). - Status is Inpatient Admission. ph - Condition is Stable. - Problem is new. - Symptoms are unchanged. Signatures: Dispatcher [employer] EDDE Yisel Uriostegui, DIRECTOR OF CARDIOPULMONARY SERVICES-C DIRECTOR OF CARDIOPULMONARY SERVICES-Ckb Manuel Kruse MD MD [facility] Giselle Paulino RN RN Lanie Bobo, RN RN Osiris Lama Lea Scott, RN RN ca1 Corrections: (The following items were deleted from the chart) 12:44 12:40 Abdomen Pelvis W Con+CT.RAD.BRZ ordered. [facility] 15:44 15:32 Hospitalization Ordered by Anton Hayes DO for Inpatient Admission. Preliminary eb diagnosis is Acute pancreatitis. Bed requested for Telemetry/MedSurg (Inpatient). Status is Inpatient Admission. Condition is Stable. Problem is new. Symptoms are unchanged. kb 16:23 15:44 04/01/2020 15:32 Hospitalization Ordered by Anton Hayes DO for Inpatient ph Admission. Preliminary diagnosis is Acute pancreatitis. Bed requested for Telemetry/MedSurg (Inpatient). Status is Inpatient Admission. Condition is Stable. Problem is new. Symptoms are unchanged. eb
[2020-04-01 17:25] VITALS: BMI 29.9
[2020-04-01] MEDS ORDERED: CLONIDINE HCL 0.3 MG TAB PO ONE (18:45)
[2020-04-01] MEDS: HYDROMORPHONE HCL 1 MG/ML INJ IV PRN ×2 (18:51→23:10)
[2020-04-01 19:10] LABS: Urine Appearance CLEAR; Urine Bilirubin NEGATIVE (NEG); Urine Blood TRACE (NEG); Urine Color YELLOW; Urine Glucose NEGATIVE (NEG); Urine Protein 3+ (NEG); Urine Specific Gravity 1.015 (1.005-1.030)
[2020-04-01 19:17] LABS: Urine Microscopic Reflex ORDER UMIC
[2020-04-01 19:25] LABS: Urine Bacteria NONE SEEN /HPF (NONE SEEN); Urine Culture Reflex Order NOT NEEDED
[2020-04-01] MEDS: HEPARIN 5000 UNIT/ML 1 ML VIAL SQ SCH (20:34)
[2020-04-02] MEDS: HYDROMORPHONE HCL 1 MG/ML INJ IV PRN ×6 (02:48→22:10)
[2020-04-02] MEDS: NA CHLORIDE 0.9% 1,000 ML IV SCH ×5 (02:49→18:25)
[2020-04-02 05:23] LABS: Basophils % 0.4 % (0-1.3); Hematocrit 38.8 % (39.6-49.0); Lymphocytes % 21.8 % (15.3-44.8); MPV 8.5 fL (7.6-11.3)
[2020-04-02 05:37] LABS: Protime INR 0.97
[2020-04-02 05:37] LABS: Barbiturates NEGATIVE (NEGATIVE); Benzodiazepines NEGATIVE (NEGATIVE); Cocaine POSITIVE (NEGATIVE); METHAMPHETAM NEGATIVE (NEGATIVE); Methadone NEGATIVE (NEGATIVE); Opiates POSITIVE (NEGATIVE); Phencyclidine NEGATIVE (NEGATIVE); THC Cannibis NEGATIVE (NEGATIVE)
[2020-04-02 05:47] LABS: Albumin 2.7 g/dL (3.4-5.0); Bilirubin Total 1.2 mg/dL (0.2-1.0); Magnesium 1.6 mg/dL (1.8-2.4); Phosphorus 2.6 mg/dL (2.5-4.9); Potassium 4.3 mmol/L (3.5-5.1); Protein, Total 7.4 g/dL (6.4-8.2)
--- NOTE | 2020-04-02 08:11 | EKG ---
Test Date: 2020-04-01 Test Time: 11:32:33 Assistant Finance Manager: PH MEASUREMENT RESULTS: Intervals: Rate: 76 PA: 162 QRSD: 140 QT: 422 QTc: 474 Harrod: P: 50 PA: 162 QRS: -52 T: 82 INTERPRETIVE STATEMENTS: Normal sinus rhythm Left bundle branch block Abnormal ECG Compared to ECG 10/28/2019 15:48:47 Atrial premature complex(es) no longer present Electronically Signed On 04-02-20 08:09:36 CDT by Ludin Mcfadden
[2020-04-02] MEDS: HEPARIN 5000 UNIT/ML 1 ML VIAL SQ SCH ×2 (08:13→21:16)
[2020-04-02] MEDS ORDERED: HYDROMORPHONE HCL 1 MG/ML INJ IV ONE (09:30)
[2020-04-02] MEDS ORDERED: CLONIDINE HCL 0.3 MG TAB PO ONE (16:37)
[2020-04-02] MEDS ORDERED: HYDRALAZINE HCL 20 MG/ML VIAL IV STA (17:54)
[2020-04-02] MEDS ORDERED: HYDRALAZINE HCL 20 MG/ML VIAL IV PRN (17:54)
[2020-04-02] MEDS ORDERED: METOPROLOL TARTRATE 5 MG/5 ML INJ IV SCH (18:00)
[2020-04-02] MEDS: chlordiazePOXIDE HCl 5 MG CAP PO SCH (18:23)
[2020-04-02] MEDS: cloNIDine HCL 0.1 MG TAB PO SCH (21:20)
[2020-04-03] MEDS: HYDROMORPHONE HCL 1 MG/ML INJ IV PRN ×3 (01:15→09:33)
[2020-04-03] MEDS: NA CHLORIDE 0.9% 1,000 ML IV SCH ×2 (02:06→13:18)
[2020-04-03] MEDS: chlordiazePOXIDE HCl 5 MG CAP PO SCH ×4 (05:09→17:40)
[2020-04-03] MEDS: HEPARIN 5000 UNIT/ML 1 ML VIAL SQ SCH (09:34)
[2020-04-03] MEDS: cloNIDine HCL 0.1 MG TAB PO SCH ×2 (09:34→13:11)
[2020-04-03 10:36] VITALS: O2SAT 99
[2020-04-03 12:16] LABS: Absolute Lymphocytes (CBC) 0.9 K/uL (0.7-4.9); Basophils % 0.4 % (0-1.3); Hematocrit 39.6 % (39.6-49.0); Lymphocytes % 19.1 % (15.3-44.8); MPV 8.7 fL (7.6-11.3); RBC Red Blood Cell Count 4.46 M/uL (4.33-5.43)
[2020-04-03 12:27] LABS: Magnesium 1.8 mg/dL (1.8-2.4); Potassium 4.8 mmol/L (3.5-5.1)
[2020-04-03 12:47] VITALS: TEMP 97
--- NOTE | 2020-04-03 16:44 | P.HP ---
Certification for Inpatient Patient admitted to: Inpatient With expected LOS: >2 Midnights Patient will require the following post-hospital care: None Practitioner: I am a practitioner with admitting privileges, knowledge of patient current condition, hospital course, and medical plan of care. Services: Services provided to patient in accordance with Admission requirements found in Title 42 Section 412.3 of the Code of Federal Regulations Patient History Date of Service: 04/01/20 Reason for admission: Acute alcoholic pancreatitis History of Present Illness: Patient is 59-year-old gentleman who came to the hospital with acute alcoholic pancreatitis. Patient continues to drink even though he has been advised not to drink any further. He has had a history of alcohol abuse. He had pancreatitis in the past. Patient came to the hospital because of the severity of this pain. Patient was started on IV fluids and admitted to the hospital for further evaluation. Patient is not giving me much information as he is writhing in pain. His blood pressure is also elevated. Will get him admitted and I have advised him to a longer drinking anymore. Allergies Penicillins Allergy (Verified 01/22/20 05:23) Hives/Rash Home Medications: Allopurinol 300 mg PO DAILY 01/22/20 Atorvastatin Calcium 40 mg PO BEDTIME 01/22/20 Furosemide [Lasix*] 1 tab PO DAILY 01/22/20 Gabapentin [Neurontin*] 100 mg PO TIDP PRN 01/22/20 Probenecid/Colchicine [Probenecid-Colchicine Tablet] 1 tab PO SEECOM 01/22/20 Sacubitril/Valsartan [Entresto 24 mg-26 mg Tablet] 1 tab PO DAILY 01/22/20 Metoprolol Tartrate [Lopressor*] 25 mg PO BID 6AM 6PM #60 tab 01/24/20 chlordiazePOXIDE HCl [Librium*] 10 mg PO TID #40 cap 01/24/20 - Past Medical/Surgical History Has patient received pneumonia vaccine in the past: Yes Diabetic: No -: hypertension -: irregular heart beat -: PANCREATITIS -: TIA -: CHF -: Gout -: cardiac stent - Family History Father Medical History: Cancer, Liver disease Notes: asbestos. exposure Mother Notes: mom is healthy - Social History Smoking Status: Never smoker Alcohol use: Yes CD- Drugs: No Caffeine use: Yes Review of Systems 10-point ROS is otherwise unremarkable Physical Examination - Vital Signs Temperature: 97.0 F Blood Pressure: 167/91 Pulse: 66 Respirations: 17 Pulse Ox (%): 100 - Physical Exam General: Alert, In no apparent distress, Oriented x3 HEENT: Atraumatic, PERRLA, Mucous membr. moist/pink, EOMI, Sclerae nonicteric Neck: Supple, 2+ carotid pulse no bruit, No LAD, Without JVD or thyroid abnormality Respiratory: Clear to auscultation bilaterally, Normal air movement Cardiovascular: Regular rate/rhythm, Normal S1 S2, No murmurs Gastrointestinal: Hypoactive, No rebound, No guarding, Distended, Tenderness Musculoskeletal: No clubbing, No swelling, No tenderness Integumentary: No rashes Neurological: Normal gait, Normal speech, Normal strength at 5/5 x4 extr, Normal tone, Sensation intact, Cranial nerves 3-12 intact Lymphatics: No axilla or inguinal lymphadenopathy - Studies Microbiology Data (last 24 hrs): 04/01/20 04:40 Sputum Coronavirus COVID-19 PCR - Final Assessment & Plan - Problems (Diagnosis) (1) Acute alcoholic pancreatitis Current Visit: Yes Status: Acute (2) History of gout Current Visit: Yes Status: Acute (3) Chronic kidney disease, stage 3 Current Visit: No Status: Acute (4) Hypertensive urgency Onset Date: 10/31/16 Current Visit: No Status: Acute (5) ETOH abuse Onset Date: 10/31/16 Current Visit: No Status: Chronic (6) HTN (hypertension) Onset Date: 11/01/16 Current Visit: No Status: Chronic Qualifiers: - Plan Plan: 1. Aggressive IV hydration 2. NPO 3. Delirium tremens prevention 4. Monitor lipase levels 5. Counseled regarding no longer drinking alcohol 6. Strict blood pressure control 7. Monitor renal function closely 8. GI and DVT prophylaxis Discharge Plan: Home Plan to discharge in: Greater than 2 days - Advance Directives Does patient have a Living Will: No Does patient have a Durable POA for Healthcare: No - Code Status/Comfort Care Code Status Assessed: Yes Code Status: Full Code Critical Care: No Time Spent Managing PTS Care (In Minutes): 45
--- NOTE | 2020-04-03 17:07 | P.PN ---
Subjective Date of Service: 04/02/20 Patient still in pain. Increase Dilaudid to q.2 hr. Continue Librium for delirium tremens prevention. Patient's blood pressure is also elevated and we are attempting to get strict control Review of Systems 10-point ROS is otherwise unremarkable Physical Examination - Vital Signs Temperature: 97.0 F Blood Pressure: 167/91 Pulse: 66 Respirations: 17 Pulse Ox (%): 100 - Physical Exam General: Alert, In no apparent distress, Oriented x3 Respiratory: Clear to auscultation bilaterally, Normal air movement Cardiovascular: Regular rate/rhythm, Normal S1 S2, No murmurs Gastrointestinal: Normal bowel sounds, Soft and benign, Non-distended, No tenderness Musculoskeletal: No clubbing, No swelling, No tenderness Neurological: Normal strength at 5/5 x4 extr, Sensation intact, Cranial nerves 3-12 intact - Studies Medications List Reviewed: Yes Assessment & Plan - Problems (Diagnosis) (1) Acute alcoholic pancreatitis Current Visit: Yes Status: Acute (2) History of gout Current Visit: Yes Status: Acute (3) Chronic kidney disease, stage 3 Current Visit: No Status: Acute (4) Hypertensive urgency Onset Date: 10/31/16 Current Visit: No Status: Acute (5) ETOH abuse Onset Date: 10/31/16 Current Visit: No Status: Chronic (6) HTN (hypertension) Onset Date: 11/01/16 Current Visit: No Status: Chronic Qualifiers: - Plan Plan: Continue with plan of care as mentioned below 1. Continue with aggressive IV hydration 2. Continue NPO 3. Continue delirium tremens prevention 4. Continue monitoring lipase levels 5. Already counseled regarding no longer drinking alcohol 6. Strict blood pressure control 7. GI and DVT prophylaxis - Advance Directives Does patient have a Living Will: No Does patient have a Durable POA for Healthcare: No - Code Status/Comfort Care Code Status: Full Code Critical Care: No Time Spent Managing PTS Care (In Minutes): 30
--- NOTE | 2020-04-03 17:10 | P.DS ---
Discharge Date: 04/03/20 Disposition: ROUTINE DISCHARGE Discharge Condition: GOOD Reason for Admission: Acute alcoholic pancreatitis - Problems (1) Acute alcoholic pancreatitis Current Visit: Yes Status: Acute (2) History of gout Current Visit: Yes Status: Acute (3) Chronic kidney disease, stage 3 Current Visit: No Status: Acute (4) Hypertensive urgency Onset Date: 10/31/16 Current Visit: No Status: Acute (5) ETOH abuse Onset Date: 10/31/16 Current Visit: No Status: Chronic (6) HTN (hypertension) Onset Date: 11/01/16 Current Visit: No Status: Chronic Qualifiers: Brief History of Present Illness: Patient is 59-year-old gentleman who came to the hospital with acute alcoholic pancreatitis. Patient continues to drink even though he has been advised not to drink any further. He has had a history of alcohol abuse. He had pancreatitis in the past. Patient came to the hospital because of the severity of this pain. Patient was started on IV fluids and admitted to the hospital for further evaluation. Patient is not giving me much information as he is writhing in pain. His blood pressure is also elevated. Will get him admitted and I have advised him to a longer drinking anymore. Hospital Course: Patient is clinically feeling much better. Pain is controlled. Tolerating diet. At this time, patient is stable for discharge home with outpatient follow-up. Vital Signs/Physical Exam: Temp Pulse Resp BP Pulse Ox 97.0 F 66 17 167/91 H 100 04/03/20 17:07 04/03/20 17:07 04/03/20 17:07 04/03/20 17:07 04/03/20 17:07 General: Alert, In no apparent distress, Oriented x3 Laboratory Data at Discharge: WBC 4.7 K/uL (4.3-10.9) 04/03/20 12:00 Hgb 12.9 g/dL (13.6-17.9) L 04/03/20 12:00 Hct 39.6 % (39.6-49.0) 04/03/20 12:00 Plt Count 124 K/uL (152-406) L 04/03/20 12:00 PT 11.4 SECONDS (9.5-12.5) 04/02/20 05:13 INR 0.97 04/02/20 05:13 APTT 28.5 SECONDS (24.3-36.9) 04/02/20 05:13 Sodium 144 mmol/L (136-145) 04/03/20 12:00 Potassium 4.8 mmol/L (3.5-5.1) 04/03/20 12:00 BUN 20 mg/dL (7-18) H 04/03/20 12:00 Creatinine 1.59 mg/dL (0.55-1.3) H 04/03/20 12:00 Glucose 79 mg/dL (74-106) 04/03/20 12:00 Phosphorus 2.6 mg/dL (2.5-4.9) 04/02/20 05:13 Magnesium 1.8 mg/dL (1.8-2.4) 04/03/20 12:00 Total Bilirubin 1.2 mg/dL (0.2-1.0) H 04/02/20 05:13 AST 67 U/L (15-37) H 04/02/20 05:13 ALT 42 U/L (12-78) 04/02/20 05:13 Alkaline Phosphatase 77 U/L (45-117) 04/02/20 05:13 Triglycerides 188 mg/dL (<150) H 04/02/20 05:13 Cholesterol 178 mg/dL (<200) 04/02/20 05:13 HDL Cholesterol 89 mg/dL (40-60) H 04/02/20 05:13 Cholesterol/HDL Ratio 2.00 04/02/20 05:13 Lipase 681 U/L (73-393) H 04/03/20 12:00 Home Medications: Allopurinol 300 mg PO DAILY 01/22/20 Atorvastatin Calcium 40 mg PO BEDTIME 01/22/20 Furosemide [Lasix*] 1 tab PO DAILY 01/22/20 Gabapentin [Neurontin*] 100 mg PO TIDP PRN 01/22/20 Probenecid/Colchicine [Probenecid-Colchicine Tablet] 1 tab PO SEECOM 01/22/20 Sacubitril/Valsartan [Entresto 24 mg-26 mg Tablet] 1 tab PO DAILY 01/22/20 Metoprolol Tartrate [Lopressor*] 25 mg PO BID 6AM 6PM #60 tab 01/24/20 chlordiazePOXIDE HCl [Librium*] 10 mg PO TID #40 cap 01/24/20 Patient Discharge Instructions: OK TO DC IV AND DC HOME. FOLLOW-UP WITH PRIMARY CARE PROVIDER IN 1-2 WEEKS. FOLLOW-UP WITH GI IN 1-2 WEEKS. Consider going to alcohol anonymous or rehab for alcohol use and addiction. RETURN TO THE ER IF symptoms worsen. CALL or TEXT DR. CALI AT [phone] IF ANY QUESTIONS REGARDING HOSPITAL STAY. PLEASE CALL THE FLOOR AT [phone] IF ANY MEDICATION OR NURSING QUESTIONS. Diet: low fat and no alcohol use Activity: Fall precautions Time spent managing pt's care (in minutes): 25
[2020-04-03 17:41] VITALS: BP 130/70
== END 2020-04-03 18:45 | disposition home or self-care (01) | DRG 440 ==
LOC: ER 09:50 → ERHOLD 14:56 → 2ND 15:59
PROVIDERS: ADMIT Hospitalist; ATTEND Hospitalist
DX: K85.20 Alcohol induced acute pancreatitis without necrosis or infection (principal); I12.9 Hypertensive chronic kidney disease with stage 1 through stage 4 chronic kidney disease, or unspecified chronic kidney disease; N18.3 Chronic kidney disease, stage 3 (moderate); I16.0 Hypertensive urgency; F10.10 Alcohol abuse, uncomplicated; M10.9 Gout, unspecified; Z79.899 Other long term (current) drug therapy; Z95.5 Presence of coronary angioplasty implant and graft; Z88.0 Allergy status to penicillin; Z86.73 Personal history of transient ischemic attack (TIA), and cerebral infarction without residual deficits
CPT/HCPCS: 36415; 70450; 71045; 74176; 80048; 80053; 80061; 80076; 80307; 80320; 81003; 81015; 82947; 83690; 83735; 83880; 84100; 84484; 85025; 85610; 85730; 93005; 96361; 96374; 96375; 99285; J0360; J1170; J1644; J2405; J7030; Q0161; U0002

== ENCOUNTER 2020-05-02 18:19 | Inpatient (IN) | payer MEDICARE ==
[2020-05-02 19:07] LABS: Basophils % 0.8 % (0-1.3); Hematocrit 44.3 % (39.6-49.0); Lymphocytes % 12.8 % (15.3-44.8); MPV 8.9 fL (7.6-11.3); RBC Red Blood Cell Count 5.12 M/uL (4.33-5.43)
[2020-05-02] MEDS ORDERED: ONDANSETRON 4 MG/2 ML VIAL ONE (19:10)
[2020-05-02] MEDS ORDERED: MORPHINE 4 MG/ML SYR ONE (19:10)
[2020-05-02] MEDS ORDERED: Magnesium Sulfate 2gm IVPB 0 G/0 ML BAG IV ONE (19:31)
[2020-05-02] MEDS ORDERED: Magnesium Sulfate 2gm IVPB 2 G/50 ML BAG IV ONE (19:32)
[2020-05-02 19:33] LABS: Albumin 3.7 g/dL (3.4-5.0); Bilirubin Direct 0.4 mg/dL (0-0.2); Bilirubin Total 1.4 mg/dL (0.2-1.0); Potassium 3.8 mmol/L (3.5-5.1); Protein, Total 9.3 g/dL (6.4-8.2)
[2020-05-02] MEDS ORDERED: NA CHLORIDE 0.9% 1,000 ML ONE ×2 (19:33→20:33)
[2020-05-02] MEDS ORDERED: HYDROMORPHONE HCL 1 MG/ML INJ ONE (20:02)
--- NOTE | 2020-05-02 20:15 | RAD REPORT ---
EXAM DESCRIPTION: CT - Abdomen Pelvis Wo Contrast - 05/02/2020 8:06 pm CLINICAL HISTORY: Abdominal pain. ABD PAIN COMPARISON: Abdomen Pelvis Wo Contrast dated 04/01/2020 TECHNIQUE: CT imaging of the abdomen and pelvis was performed without contrast. Solid organ, bowel a nd vascular assessment is limited due to lack of IV and oral contrast. All CT scans are performed using dose optimization technique as appropriate and may include automated exposure control or mA/KV adjustment according to patient size. FINDINGS: The lower lung elise are clear. The liver, spleen, adrenal glands and kidneys are within normal limits for a limited non-contrast exa mination.Mild very pancreatic inflammatory changes are seen compatible with mild acute pancreatitis. No pseudocyst seen. No bowel obstruction, free air, free fluid or abscess. The appendix is normal. The osseous structures are within normal limits.Bilateral fat containing inguinal hernias, larger on the right. IMPRESSION: Mild acute pancreatitis. A limited non-contrast examination was performed as detailed.
--- NOTE | 2020-05-02 20:21 | EDPHYS ---
Physician Documentation [facility] Name: Natan Paulino Sr Age: 59 yrs Sex: Male : 1960 Arrival Date: 05/02/2020 Time: 18:21 Bed 4 Private MD: ED Physician Brandon Masterson HPI: 05/02 19:10 This 59 yrs old Black Male presents to ER via Ambulatory with complaints of jr8 pancreatitis flare up. 19:10 The patient presents with abdominal pain in the upper abdomen. Onset: The jr8 symptoms/episode began/occurred acutely, yesterday. The symptoms do not radiate. Associated signs and symptoms: Pertinent positives: nausea, bloating sensation . The symptoms are described as stabbing. Modifying factors: The symptoms are alleviated by nothing, the symptoms are aggravated by alcohol. Severity of pain: At its worst the pain was moderate in the emergency department the pain is unchanged. The patient has experienced a previous episode. The patient has not recently seen a physician. Historical: - Allergies: 18:32 PENICILLINS; ca1 - PMHx: 18:32 CHF; Gout; Hypertension; osteoarthritis; Pancreatitis; Rheumatoid Arthritis; TIA; ca1 - PSHx: 18:32 Heart stents; ca1 - Immunization history:: Adult Immunizations up to date. - Social history:: Smoking status: Patient denies any tobacco usage or history of. ROS: 20:17 Eyes: Negative for injury, pain, redness, and discharge, ENT: Negative for injury, jr8 pain, and discharge, Neck: Negative for injury, pain, and swelling, Cardiovascular: Negative for chest pain, palpitations, and edema, Respiratory: Negative for shortness of breath, cough, wheezing, and pleuritic chest pain, Back: Negative for injury and pain, MS/Extremity: Negative for injury and deformity, Skin: Negative for injury, rash, and discoloration, Neuro: Negative for headache, weakness, numbness, tingling, and seizure. 20:17 Abdomen/GI: Positive for abdominal pain, nausea, abdominal distension, Negative for diarrhea, constipation, abdominal cramps, anorexia, dysphagia, hematemesis, black/tarry stool, rectal pain, rectal bleeding, bowel incontinence, flatulence. Exam: 20:17 Eyes: Pupils equal round and reactive to light, extra-ocular motions intact. Lids and jr8 lashes normal. Conjunctiva and sclera are non-icteric and not injected. Cornea within normal limits. Periorbital areas with no swelling, redness, or edema. ENT: Nares patent. No nasal discharge, no septal abnormalities noted. Tympanic membranes are normal and external auditory canals are clear. Oropharynx with no redness, swelling, or masses, exudates, or evidence of obstruction, uvula midline. Mucous membranes moist. Neck: Trachea midline, no thyromegaly or masses palpated, and no cervical lymphadenopathy. Supple, full range of motion without nuchal rigidity, or vertebral point tenderness. No Meningismus. Cardiovascular: Regular rate and rhythm with a normal S1 and S2. No gallops, murmurs, or rubs. Normal PMI, no JVD. No pulse deficits. Respiratory: Lungs have equal breath sounds bilaterally, clear to auscultation and percussion. No rales, rhonchi or wheezes noted. No increased work of breathing, no retractions or nasal flaring. Back: No spinal tenderness. No costovertebral tenderness. Full range of motion. Skin: Warm, dry with normal turgor. Normal color with no rashes, no lesions, and no evidence of cellulitis. MS/ Extremity: Pulses equal, no cyanosis. Neurovascular intact. Full, normal range of motion. Neuro: Awake and alert, GCS 15, oriented to person, place, time, and situation. Cranial nerves II-XII grossly intact. Motor strength 5/5 in all extremities. Sensory grossly intact. Cerebellar exam normal. Normal gait. 20:17 Abdomen/GI: Inspection: distension, that is mild, Bowel sounds: active, all quadrants, Palpation: soft, in all quadrants, moderate abdominal tenderness, in the epigastric area and left upper quadrant, mass, is not appreciated, rebound tenderness, is not appreciated, voluntary guarding, is not appreciated, involuntary guarding, is not appreciated, no appreciated organomegaly, Indicators: McBurney's point is not tender, Lorenzo's sign is negative, Rovsing's sign is negative. Vital Signs: 18:32 BP 166 / 127; Pulse 107; Resp 22 S; Temp 98.4; Pulse Ox 100% on R/A; Weight 108.86 kg ca1 (R); Height 6 ft. 3 in. (190.50 cm) (R); Pain 9/10; 18:43 BP 207 / 133 LA; ca1 18:44 BP 180 / 122 RA; ca1 19:29 BP 180 / 117; Pulse 85; Resp 18; Pulse Ox 98% ; ll2 20:31 BP 175 / 112; Pulse 96; Resp 18; Pulse Ox 98% ; ea 20:39 BP 180 / 104; Pulse 90; Resp 16; Pulse Ox 99% on R/A; ea 21:25 BP 168 / 85; Pulse 88; Resp 18; Pulse Ox 98% on R/A; ea 18:32 Body Mass Index 30.00 (108.86 kg, 190.50 cm) ca1 MDM: 18:34 Patient medically screened. deejay 20:17 Data reviewed: vital signs, nurses notes, lab test result(s), radiologic studies, CT jr8 scan. Data interpreted: Pulse oximetry: on room air is 98 %. Interpretation: normal. Counseling: I had a detailed discussion with the patient and/or guardian regarding: the historical points, exam findings, and any diagnostic results supporting the discharge/admit diagnosis, lab results, radiology results, the need for further work-up and treatment in the hospital. 05/02 18:35 Order name: Basic Metabolic Panel; Complete Time: 19:50 05/02 18:35 Order name: CBC with Diff; Complete Time: 19:17 05/02 18:35 Order name: Hepatic Function; Complete Time: 19:50 05/02 18:35 Order name: Lipase; Complete Time: 19:50 05/02 20:38 Order name: COVID-19 05/02 20:39 Order name: CORONAVIRUS EDMT 05/02 18:35 Order name: IV Saline Lock; Complete Time: 19:03 05/02 18:35 Order name: Labs collected and sent; Complete Time: 19:03 05/02 19:50 Order name: CT Abd/Pelvis - Without Contrast; Complete Time: 20:17 05/02 18:35 Order name: EKG - Nurse/Tech; Complete Time: 19:15 jr8 Administered Medications: 19:00 Drug: morphine 4 mg Route: IVP; Site: right forearm; bp 19:50 Follow up: Response: No adverse reaction ea 19:00 Drug: Zofran (Ondansetron) 4 mg Route: IVP; Site: right forearm; bp 20:30 Follow up: Response: No adverse reaction ea 19:54 Drug: Dilaudid 1 mg {Note: RASS 0.} Route: IVP; Site: right forearm; ea 20:29 Follow up: Response: No adverse reaction; Pain is decreased; RASS: Alert and Calm (0) ea 19:55 Drug: NS 0.9% 1000 ml Route: IV; Rate: 125 ml/hr; Site: right forearm; ea 20:30 Follow up: Response: No adverse reaction; IV Status: Completed infusion ea 20:29 Drug: hydrALAZINE 10 mg Route: IV; Rate: 1 calculated rate; Site: right forearm; ea 20:38 Follow up: Response: No adverse reaction; Blood pressure is lowered; IV Status: ea Completed infusion Disposition: 05/03 08:19 Co-signature as Attending Physician, Brandon Masterson MD I agree with the assessment and deejay plan of care. Disposition: 05/02/20 20:21 Hospitalization ordered by Bill Jha for Inpatient Admission. Preliminary diagnosis is Alcohol induced acute pancreatitis. - Bed requested for Telemetry/MedSurg (Inpatient). - Status is Inpatient Admission. sg - Condition is Stable. - Problem is new. - Symptoms have improved. Signatures: Dispatcher [employer] EDMS Isidra Albright RN RN mw Gay, Steven RN Brandon Hicks MD MD cha Roszak, Josh, PA PA jr8 Denver Brown, COLLECTION ADMINISTRATOR-C COLLECTION ADMINISTRATOR-Cla1 Tess Avitia RN RN ea Peltier, Brian, RN RN bp Acob, Cheryl RN RN ca1 Corrections: (The following items were deleted from the chart) 05/02 20:52 20:21 Hospitalization Ordered by Bill Jha MD for Inpatient Admission. Preliminary mw diagnosis is Alcohol induced acute pancreatitis. Bed requested for Telemetry/MedSurg (Inpatient). Status is Inpatient Admission. Condition is Stable. Problem is new. Symptoms have improved. jr8 21:42 20:52 05/02/2020 20:21 Hospitalization Ordered by Bill Jha MD for Inpatient sg Admission. Preliminary diagnosis is Alcohol induced acute pancreatitis. Bed requested for Telemetry/MedSurg (Inpatient). Status is Inpatient Admission. Condition is Stable. Problem is new. Symptoms have improved. mw
--- NOTE | 2020-05-02 20:21 | ER ---
Nurse's Notes [facility] Name: Natan Paulino Sr Age: 59 yrs Sex: Male : 1960 Arrival Date: 05/02/2020 Time: 18:21 Bed 4 Private MD: Diagnosis: Alcohol induced acute pancreatitis Presentation: 05/02 18:30 Chief complaint: Patient states: LUQ pain, N/V/diarrhea since yesterday. Hx of ca1 pancreatitis. Coronavirus screen: Client denies travel out of the [place] in the last 14 days. At this time, the client does not indicate any symptoms associated with coronavirus-19. Ebola Screen: Patient negative for fever greater than or equal to 101.5 degrees Fahrenheit, and additional compatible Ebola Virus Disease symptoms Patient denies exposure to infectious person. Patient denies travel to an Ebola-affected area in the 21 days before illness onset. No symptoms or risks identified at this time. Initial Sepsis Screen: Does the patient meet any 2 criteria? No. Patient's initial sepsis screen is negative. Does the patient have a suspected source of infection? No. Patient's initial sepsis screen is negative. Risk Assessment: Do you want to hurt yourself or someone else? Patient reports no desire to harm self or others. Onset of symptoms was May 02, 2020. 18:30 Method Of Arrival: Ambulatory ca1 18:32 Acuity: NINO 2 ca1 Triage Assessment: 18:40 General: Appears distressed, uncomfortable, Behavior is cooperative, appropriate for bp age, anxious. Pain: Complains of pain in abdomen. EENT: No deficits noted. Neuro: No deficits noted. Cardiovascular: No deficits noted. Respiratory: No deficits noted. GI: Reports upper abdominal pain. : No signs and/or symptoms were reported regarding the genitourinary system. Derm: No deficits noted. Musculoskeletal: No deficits noted. Historical: - Allergies: 18:32 PENICILLINS; ca1 - PMHx: 18:32 CHF; Gout; Hypertension; osteoarthritis; Pancreatitis; Rheumatoid Arthritis; TIA; ca1 - PSHx: 18:32 Heart stents; ca1 - Immunization history:: Adult Immunizations up to date. - Social history:: Smoking status: Patient denies any tobacco usage or history of. Screenin:29 Abuse screen: Denies threats or abuse. Nutritional screening: No deficits noted. ll2 Tuberculosis screening: No symptoms or risk factors identified. Fall Risk IV access (20 points). Assessment: 18:30 General: SEE TRIAGE NOTE. bp 19:28 General: Appears in no apparent distress. Behavior is appropriate for age. Pain: ll2 Complains of pain in abdomen. Neuro: Level of Consciousness is awake, alert, obeys commands, Oriented to person, place, time, situation. Cardiovascular: Patient's skin is warm and dry. Respiratory: Airway is patent Respiratory effort is even, unlabored, Respiratory pattern is regular, symmetrical. Derm: Skin is dry, Skin is normal, Skin temperature is warm. 21:25 Reassessment: Patient and/or family updated on plan of care and expected duration. Pain ea level reassessed. Patient is alert, oriented x 3, equal unlabored respirations, skin warm/dry/pink. Pt reports pain has decreased. 21:29 Reassessment: Report given to Courtney GARRIDO. ea Vital Signs: 18:32 BP 166 / 127; Pulse 107; Resp 22 S; Temp 98.4; Pulse Ox 100% on R/A; Weight 108.86 kg ca1 (R); Height 6 ft. 3 in. (190.50 cm) (R); Pain 9/10; 18:43 BP 207 / 133 LA; ca1 18:44 BP 180 / 122 RA; ca1 19:29 BP 180 / 117; Pulse 85; Resp 18; Pulse Ox 98% ; ll2 20:31 BP 175 / 112; Pulse 96; Resp 18; Pulse Ox 98% ; ea 20:39 BP 180 / 104; Pulse 90; Resp 16; Pulse Ox 99% on R/A; ea 21:25 BP 168 / 85; Pulse 88; Resp 18; Pulse Ox 98% on R/A; ea 18:32 Body Mass Index 30.00 (108.86 kg, 190.50 cm) ca1 ED Course: 18:21 Patient arrived in ED. as 18:32 Arm band placed on right wrist. ca1 18:33 Triage completed. ca1 18:34 Erasmo Hager PA is PHCP. jr8 18:34 Brandon Masterson MD is Attending Physician. jr8 18:44 Patient has correct armband on for positive identification. Placed in gown. Bed in low ca1 position. Call light in reach. Side rails up X2. patient monitor on. Pulse ox on. NIBP on. Warm blanket given. 18:47 Martin Stevens, RN is Primary Nurse. bp 20:05 CT Abd/Pelvis - Without Contrast In Process Unspecified. EDMS 20:20 Bill Jha MD is Hospitalizing Provider. jr8 20:30 No provider procedures requiring assistance completed. Patient admitted, IV remains in ea place. 20:50 COVID 19 swab performed and sent to lab per policy. sg Administered Medications: 19:00 Drug: morphine 4 mg Route: IVP; Site: right forearm; bp 19:50 Follow up: Response: No adverse reaction ea 19:00 Drug: Zofran (Ondansetron) 4 mg Route: IVP; Site: right forearm; bp 20:30 Follow up: Response: No adverse reaction ea 19:54 Drug: Dilaudid 1 mg {Note: RASS 0.} Route: IVP; Site: right forearm; ea 20:29 Follow up: Response: No adverse reaction; Pain is decreased; RASS: Alert and Calm (0) ea 19:55 Drug: NS 0.9% 1000 ml Route: IV; Rate: 125 ml/hr; Site: right forearm; ea 20:30 Follow up: Response: No adverse reaction; IV Status: Completed infusion ea 20:29 Drug: hydrALAZINE 10 mg Route: IV; Rate: 1 calculated rate; Site: right forearm; ea 20:38 Follow up: Response: No adverse reaction; Blood pressure is lowered; IV Status: ea Completed infusion Outcome: 20:21 Decision to Hospitalize by Provider. jr8 20:31 Instructed on the need for admit, Demonstrated understanding of instructions. ea 21:28 Admitted to Med/surg accompanied by tech, via wheelchair, room 401, with chart, Report ea called to Courtney GARRIDO 21:28 Condition: stable 21:42 Patient left the ED. sg Signatures: Dispatcher [employer] EDMS Alvin Bell, RN Ce Keenan Josh, PA PA jrTess Rodriguez RN Martin Wheatley ea, RN RN bp Lea Scott RN RADHIKA ca1 Destiny Iverson RN RADHIKA ll2
[2020-05-02] MEDS ORDERED: HYDRALAZINE HCL 20 MG/ML VIAL ONE (20:33)
--- NOTE | 2020-05-02 21:03 | P.HP ---
Certification for Inpatient Patient admitted to: Inpatient With expected LOS: >2 Midnights Patient will require the following post-hospital care: None Practitioner: I am a practitioner with admitting privileges, knowledge of patient current condition, hospital course, and medical plan of care. Services: Services provided to patient in accordance with Admission requirements found in Title 42 Section 412.3 of the Code of Federal Regulations <Denver Brown - Last Filed: 05/02/20 20:53> Patient History Date of Service: 05/02/20 Primary Care Provider: Gloria Key Reason for admission: Pancreatitis History of Present Illness: 59-year-old male with history of alcoholic pancreatitis, systolic congestive heart failure, hypertension, gout, chronic kidney disease presents emergency department for abdominal pain. Patient reports that over the course of this last weekend he consumed approximately 1 pt of gin. Patient reports that he has not been drinking up until this recent binge. Patient reports his pain began yesterday but this is increasing in severity. Patient's pain is epigastric. Patient was worked up in the emergency department and found to have a lipase greater than [address] findings to support a mild to moderate pancreatitis without pseudocyst or signs of necrosis. Patient also with history of alcoholic cardiomyopathy with significant systolic congestive heart failure. Patient's creatinine elevated when compared to baseline and GFR lower than baseline levels. ED provider wishes to admit patient for further evaluation and management. When I saw the patient in the emergency department he was awake, alert, oriented. Patient reports pain currently at approximately 6 at 10 in the epigastric region. Patient was hypertensive and mildly tachycardic with a heart rate around 105. Will admit patient for further evaluation and management. - Past Medical/Surgical History Diabetic: No -: Hypertension -: Systolic congestive heart 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 - Family History Father -: Cancer, Liver disease Notes: asbestos. exposure Mother Notes: mom is healthy - Social History Smoking Status: Never smoker Alcohol use: Yes CD- Drugs: No Caffeine use: Yes Place of Residence: Home <Denver Brown - Last Filed: 05/02/20 20:53> Date of Service: 05/03/20 <Bill Jha - Last Filed: 05/03/20 18:22> Allergies Penicillins Allergy (Verified 05/03/20 05:24) Hives/Rash Home Medications: Allopurinol 300 mg PO DAILY 01/22/20 Atorvastatin Calcium 40 mg PO BEDTIME 01/22/20 Furosemide [Lasix*] 1 tab PO DAILY 01/22/20 Gabapentin [Neurontin*] 100 mg PO TIDP PRN 01/22/20 Probenecid/Colchicine [Probenecid-Colchicine Tablet] 1 tab PO SEECOM 01/22/20 Sacubitril/Valsartan [Entresto 24 mg-26 mg Tablet] 1 tab PO DAILY 01/22/20 Metoprolol Tartrate [Lopressor*] 25 mg PO BID 6AM 6PM #60 tab 01/24/20 chlordiazePOXIDE HCl [Librium*] 10 mg PO TID #40 cap 01/24/20 Review of Systems 10-point ROS is otherwise unremarkable Gastrointestinal: Vomiting, Abdominal Pain <Denver Brown - Last Filed: 05/02/20 20:53> Physical Examination - Physical Exam General: Alert, In no apparent distress, Oriented x3 HEENT: Atraumatic, Normocephalic, PERRLA, Other (Mucous membranes dry) Neck: Supple, 2+ carotid pulse no bruit Respiratory: Clear to auscultation bilaterally, Normal air movement Cardiovascular: No edema, Abnormal S3, Irregular heart rate/rhythm (Sinus tachycardia) Capillary refill: <2 Seconds Gastrointestinal: Normal bowel sounds, No rebound, Tenderness (Moderate epigastric abdominal tenderness, mild abdominal tenderness throughout the abdomen) Musculoskeletal: No contractures, No erythema, No tenderness Integumentary: No significant lesion, No tenderness/swelling, No erythema Neurological: Normal speech, Normal strength at 5/5 x4 extr, Normal tone, Normal affect - Studies Laboratory Data (last 24 hrs) 05/02/20 18:55: WBC 7.6, Hgb 14.8, Hct 44.3, Plt Count 216 05/02/20 18:55: Sodium 139, Potassium 3.8, BUN 35 H, Creatinine 2.53 H, Glucose 106, Total Bilirubin 1.4 H, AST 65 H, ALT 36, Alkaline Phosphatase 94, Lipase 3039 H <Denver Brown - Last Filed: 05/02/20 20:53> - Studies Laboratory Data (last 24 hrs) 05/02/20 18:55: WBC 7.6, Hgb 14.8, Hct 44.3, Plt Count 216 05/02/20 18:55: Sodium 139, Potassium 3.8, BUN 35 H, Creatinine 2.53 H, Glucose 106, Total Bilirubin 1.4 H, AST 65 H, ALT 36, Alkaline Phosphatase 94, Lipase 3039 H <Bill Jha - Last Filed: 05/03/20 18:22> Assessment and Plan - Plan Assessment Acute alcoholic pancreatitis Chronic systolic congestive heart failure secondary to alcoholic cardiomyopathy Acute kidney injury on chronic kidney disease stage III Hypertension Gout Plan Acute alcoholic pancreatitis: NPO, continue with gentle IV hydration due to severe systolic congestive heart failure. Patient does appear dry at this time. Pain and nausea medication in place as needed. Will trend lipase. Obtain lipid panel. DVT prophylaxis heparin 5000 units subcutaneous twice daily. Anticipate clinical improvement next 48-72 hr. Discussed need for alcohol cessation. Chronic systolic congestive heart failure secondary to alcoholic cardiomyopathy: Patient noted to have previous ejection fraction of approximately 20%. Patient had echocardiogram and heart catheterization in July 2019 with stent placement in the LAD. Cardiology recommended after patient had abstain from alcohol he would likely benefit from a pacemaker/defibrillator placement as during his last hospitalization he had asymptomatic runs of V-tach. Patient relatively poor historian but has not had pacemaker defibrillator placed. Patient will be monitored on telemetry throughout this hospitalization. Continue with gentle hydration secondary to pancreatitis but will monitor fluid status closely. Hold off on Lasix this time. Obtaining continue patient's othe r home medications. Will also trend troponins. Acute kidney injury on chronic kidney disease stage III: Patient does not have established biztalk consultant. Continue with gentle hydration at this time. Will obtain CPK level. Appreciate further input from nephrology. Hypertension: Patient hypertensive on admission. Will continue patient's metoprolol at this time. obtain and continue patient's other home medications. P.r.n. medications in place. Gout: Obtain and continue patient's home medications. Discharge Plan: Home Plan to discharge in: Greater than 2 days - Advance Directives Does patient have a Living Will: No Does patient have a Durable POA for Healthcare: No - Code Status/Comfort Care Code Status Assessed: Yes (Patient is full code) Critical Care: No Time Spent Managing Pts Care (In Minutes): 55 <Denver Brown - Last Filed: 05/02/20 20:53> Physician Review Additional Text: Plan of care discussed with Denver Brown, and I agree with the management plan as noted above. <Bill Jha - Last Filed: 05/03/20 18:22>
[2020-05-02] MEDS ORDERED: HEPARIN 5000 UNIT/ML 1 ML VIAL SQ SCH (22:09)
[2020-05-02] MEDS ORDERED: ACETAMINOPHEN 500 MG TAB PO PRN (22:09)
[2020-05-02] MEDS ORDERED: NA CHLORIDE 0.9% 1,000 ML IV SCH (22:09)
[2020-05-02 22:10] VITALS: BMI 27.8
[2020-05-02] MEDS: LABETALOL 20 MG/4ML SYRINGE IV PRN (22:35)
[2020-05-02] MEDS: HYDROMORPHONE HCL 1 MG/ML INJ IV PRN (22:35)
[2020-05-03] MEDS: HYDROMORPHONE HCL 1 MG/ML INJ IV PRN ×6 (02:08→23:06)
[2020-05-03] MEDS: ONDANSETRON 4 MG/2 ML VIAL IV PRN ×3 (02:09→19:01)
[2020-05-03 03:57] LABS: MPV 9.2 fL (7.6-11.3)
[2020-05-03 04:15] LABS: Absolute Lymphocytes (CBC) 0.9 K/uL (0.7-4.9); Basophils % 0.4 % (0-1.3); Hematocrit 40.4 % (39.6-49.0); Lymphocytes % 14.6 % (15.3-44.8); RBC Red Blood Cell Count 4.64 M/uL (4.33-5.43)
[2020-05-03 04:18] LABS: Magnesium 1.9 mg/dL (1.8-2.4); Phosphorus 4.3 mg/dL (2.5-4.9); Potassium 4.9 mmol/L (3.5-5.1)
[2020-05-03] MEDS ORDERED: HYDROMORPHONE HCL 0.5 MG/0.5 ML INJ IV ONE ×2 (04:22→08:35)
[2020-05-03] MEDS: LABETALOL 20 MG/4ML SYRINGE IV PRN (04:47)
[2020-05-03] MEDS: METOPROLOL TAR 25 MG TAB PO SCH ×2 (05:58→17:14)
[2020-05-03] MEDS: NA CHLORIDE 0.9% 1,000 ML IV SCH ×3 (07:12→19:02)
--- NOTE | 2020-05-03 07:14 | P.CNS ---
Date of Consult: 05/03/20 Reason for Consult: BRIDGER Primary Care Provider: Gloria Key Chief Complaint: Pancreatitis History of Present Illness: Pt is a 59 y/omale with past medical hx of HTN, CHF, presented with complaints of abdominal pain, nausea, vomiting for the last couple of days. He reports having similar experiences in the past after alcohol use. He denies any chest pain, shortness of breath, palpitations, headache, weakness. In the ED, labs were pertinent for elevated creatinine of 2.5 with baseline creatinine of 1.5 to 1.7. Troponin was also elevated. Renal has been consulted for management of BRIDGER on CKD. Allergies Penicillins Allergy (Verified 05/03/20 05:24) Hives/Rash Home Medications: Allopurinol 300 mg PO DAILY 01/22/20 Atorvastatin Calcium 40 mg PO BEDTIME 01/22/20 Furosemide [Lasix*] 1 tab PO DAILY 01/22/20 Gabapentin [Neurontin*] 100 mg PO TIDP PRN 01/22/20 Probenecid/Colchicine [Probenecid-Colchicine Tablet] 1 tab PO SEECOM 01/22/20 Sacubitril/Valsartan [Entresto 24 mg-26 mg Tablet] 1 tab PO DAILY 01/22/20 Metoprolol Tartrate [Lopressor*] 25 mg PO BID 6AM 6PM #60 tab 01/24/20 chlordiazePOXIDE HCl [Librium*] 10 mg PO TID #40 cap 01/24/20 - Past Medical/Surgical History Diabetic: No -: Hypertension -: Systolic congestive heart 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 - Family History Father Medical History: Cancer, Liver disease Notes: asbestos. exposure Mother Notes: mom is healthy - Social History Alcohol use: Yes CD- Drugs: No Caffeine use: Yes Place of Residence: Home Review of Systems Gastrointestinal: Nausea, Vomiting (ROS is negative except as marked above.), Abdominal Pain Physical Examination Temp Pulse Resp BP Pulse Ox 97.5 F 75 18 170/99 H 96 05/03/20 04:00 05/03/20 05:58 05/03/20 06:18 05/03/20 05:58 05/03/20 06:18 General: Alert, In no apparent distress HEENT: Atraumatic, PERRLA, Mucous membr. moist/pink, EOMI, Sclerae nonicteric Neck: Supple, 2+ carotid pulse no bruit, No LAD, Without JVD or thyroid abnormal ity Respiratory: Clear to auscultation bilaterally, Normal air movement Cardiovascular: Regular rate/rhythm, Normal S1 S2 Gastrointestinal: Normal bowel sounds, Soft and benign, Non-distended Musculoskeletal: No tenderness Integumentary: No rashes Neurological: Normal gait, Normal speech, Normal tone, Normal affect Lymphatics: No axilla or inguinal lymphadenopathy Laboratory Data (last 24 hrs) 05/02/20 18:55: WBC 7.6, Hgb 14.8, Hct 44.3, Plt Count 216 05/02/20 18:55: Sodium 139, Potassium 3.8, BUN 35 H, Creatinine 2.53 H, Glucose 106, Total Bilirubin 1.4 H, AST 65 H, ALT 36, Alkaline Phosphatase 94, Lipase 3039 H Conclusions/Impression: Assessment BRIDGER on CKD; baseline creatinine 1.5 to 1.7 Pancreatitis Hypertension CHF compensated NSTEMI type 2 most likely demand ischemia. PLAN Agree with ivf. Increase normal saline to 120cc/h Renal ultrasound negative for obstruction, but positive for chronic renal disease. Hold all acei/rbs, avoid contrast exposure. Continue home meds, noted prn hydralazine, pain possible component Thank you for this interesting consult. Will continue to follow.
--- NOTE | 2020-05-03 08:00 | RAD REPORT ---
EXAM DESCRIPTION: US - Renal Ultrasound-Complete - 05/03/2020 7:42 am CLINICAL HISTORY: Acute renal insufficiency COMPARISON: None. FINDINGS: The right kidney measures 11 cm with an increased echotexture. The left kidney measures 9 cm with an increased echotexture. Hydronephrosis is not seen. No gross abnormality of bladder is seen IMPRESSION: Increased renal echotexture consistent with parenchymal disease
[2020-05-03] MEDS: ENOXAPARIN 100 MG/ML SYR SQ SCH (08:57)
--- NOTE | 2020-05-03 09:19 | P.PN ---
Subjective Date of Service: 05/03/20 Primary Care Provider: Gloria Key Chief Complaint: Pancreatitis Subjective: Improving (pain improved with medication, 5/10 at this time, epigastric region. no nausea/vomiting, breathing comfortably) Review of Systems 10-point ROS is otherwise unremarkable Physical Examination - Vital Signs Temperature: 97.6 F Blood Pressure: 165/96 Pulse: 66 Respirations: 18 Pulse Ox (%): 97 - Physical Exam General: Alert, In no apparent distress HEENT: Sclerae nonicteric Neck: Supple, JVD not distended Respiratory: Clear to auscultation bilaterally, Normal air movement Cardiovascular: No edema, Regular rate/rhythm, Normal S1 S2 Gastrointestinal: Normal bowel sounds, No rebound, Tenderness (diffusely, but most severe in epigastric region) Integumentary: No rashes Neurological: Normal speech, Normal affect - Studies Laboratory Data (last 24 hrs) 05/02/20 18:55: WBC 7.6, Hgb 14.8, Hct 44.3, Plt Count 216 05/02/20 18:55: Sodium 139, Potassium 3.8, BUN 35 H, Creatinine 2.53 H, Glucose 106, Total Bilirubin 1.4 H, AST 65 H, ALT 36, Alkaline Phosphatase 94, Lipase 3039 H Assessment & Plan Physician Review Additional Text: Acute alcoholic pancreatitis Chronic systolic congestive heart failure secondary to alcoholic cardiomyopathy Acute kidney injury on chronic kidney disease stage III Hypertension Gout Acute alcoholic pancreatitis: -NPO, continue with gentle IV hydration @ 75/hr, due to severe systolic congestive heart failure. Patient does appear dry at this time. -continues with moderate pain, can advance diet once pain improves -DVT prophylaxis heparin 5000 units subcutaneous twice daily. -no daily alcohol use, low risk for withdrawal Chronic systolic congestive heart failure secondary to alcoholic cardiomyopathy: -prior EF ~20%, TTE & Cath 07/2019 with stent placement in the LAD. -Cardiology recommended pacemaker/defibrillator after he abstains from EtOH. During his last hospitalization he had asymptomatic runs of V-tach. 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 Will continue patient's metoprolol at this time. -holding home ARB in setting of BRIDGER Gout: Obtain and continue patient's home medications. Time Spent Managing Pts Care (In Minutes): 35
[2020-05-03] MEDS ORDERED: HYDRALAZINE HCL 20 MG/ML VIAL IV PRN (17:19)
[2020-05-03] MEDS ORDERED: HYDROMORPHONE HCL 0.5 MG/0.5 ML INJ IV SCH (18:00)
[2020-05-04] MEDS: LABETALOL 20 MG/4ML SYRINGE IV PRN (00:42)
[2020-05-04] MEDS ORDERED: HYDROMORPHONE HCL 1 MG/ML INJ IV ONE (01:41)
[2020-05-04] MEDS: NA CHLORIDE 0.9% 1,000 ML IV SCH ×3 (02:00→17:07)
[2020-05-04] MEDS: HYDRALAZINE HCL 20 MG/ML VIAL IV PRN ×3 (02:00→16:00)
--- NOTE | 2020-05-04 02:16 | CON ---
Date of Consultation: 05/03/2020 History Of Present Illness: Mr. Paulino is a 59-year-old male who was admitted to Dr. Jha on 05/02/20. I saw the patient on 05/03/2020. Reason For Consultation: Hypertensive crisis as well as elevated troponin. History Of Present Illness: Mr. Paulino is a 59-year-old black male who basically came in with a pancre atitis flare-up. This is not his first admission for pancreatitis. He came in with severe abdominal pain in the midepigastric region, diffusely. He has been getting morphine for pain and sedation. T roponin was noted to be elevated and I was consulted. The patient does have a history of coronary ar ki disease, status post stent, but absolutely denied any chest pain, shortness of breath, PND, orth opnea, pedal edema, palpitation, or syncope. He denied fever or chills. He does have history of con gestive heart failure, gout, hypertension, osteoarthritis, recurrent pancreatitis, rheumatoid arthrit is, as well as TIA. Past Medical History: As stated above. Allergies: TO PENICILLIN. Review of Systems: Negative. Social History: Positive for alcohol. Family History: Noncontributory. Medications: At home are supposed to be allopurinol, Lipitor, Lasix, Neurontin, metoprolol, Entresto , probenecid with colchicine, and Librium. Physical Examination: General: When I saw him, his blood pressure was 200/101, his pulse was 65 in sinus rhythm. He was a febrile. Respiratory rate was 24. He was in moderate to severe abdominal pain, requesting more morp mariah. His O2 saturation was 98% on room air. HEENT: Negative. Neck: Supple with no bruit. Chest: Clear. Cardiac: Revealed a regular rhythm and rate with S4 gallops. No murmurs or rubs. Abdomen: Tender to touch, not rigid. No hepatosplenomegaly. Positive bowel sounds. Extremities: Revealed no clubbing, cyanosis, or edema. Neurologic: He was nonfocal. Skin: Dry and intact. Pulses were present distally bilaterally. Diagnostic Data: His creatinine was 2.63. White count was 6000, hemoglobin was normal. His troponi n was 0.7 and 0.68. His liver function enzymes were normal. His lipid profile was pretty normal. H is lipase was 3039. His EKG showed normal sinus rhythm with left bundle-branch block, which was director peoplesoft bing. Chest x-ray was unremarkable. Catheterization that was done in July of 2019 showed an idio pathic dilated cardiomyopathy with an ejection fraction of 25% with perfectly normal coronaries. Impression And Plan: Idiopathic cardiomyopathy, ejection fraction 25%. We need to repeat an echo to see what his ejection fraction is, but this is the cause of his elevated troponin, and there is no n eed for any repeat cardiac catheterization. He has perfectly normal coronaries. I think his cardiom yopathy is probably more secondary to alcohol than anything else and he has been counseled on alcohol intake numerous time as well as on compliance, but I am not so sure he is doing either one of those. He needs to continue his Entresto. He needs to continue beta-blockers. We should be able to go to include hydralazine and maybe Norvasc in addition to diuretics. I am concerned with his kidney func tion and the use of Entresto, but we will just have to watch it. He may also be dehydrated because o f his pancreatitis. His renal ultrasound was consistent with parenchymal disease. Nephrology consul tation may be reasonable. His other problems including rheumatoid arthritis, transient ischemic jillian ck, and gout are stable at this point. For now, he needs to be hydrated, he needs to have pain contr ol. Continue beta-blockade, Entresto, Lasix, and hydralazine, as well as Lovenox and labetalol. We will continue to follow him. Another e chocardiogram is pending. BIANCA/TERRELL Voice ID: [id number] Report ID: [id number]
[2020-05-04 04:16] LABS: Absolute Lymphocytes (CBC) 0.8 K/uL (0.7-4.9); Basophils % 0.5 % (0-1.3); Hematocrit 40.4 % (39.6-49.0); Lymphocytes % 11.6 % (15.3-44.8); MPV 9.4 fL (7.6-11.3); RBC Red Blood Cell Count 4.59 M/uL (4.33-5.43)
[2020-05-04 04:34] LABS: Bilirubin Total 0.7 mg/dL (0.2-1.0); Magnesium 1.9 mg/dL (1.8-2.4); Phosphorus 3.1 mg/dL (2.5-4.9); Potassium 4.6 mmol/L (3.5-5.1); Protein, Total 8.3 g/dL (6.4-8.2)
--- NOTE | 2020-05-04 05:54 | EKG ---
Test Date: 2020-05-02 Test Time: 19:11:25 Line Haul Driver: COMPA MEASUREMENT RESULTS: Intervals: Rate: 92 NM: 164 QRSD: 146 QT: 426 QTc: 526 [place]: P: 47 NM: 164 QRS: -56 T: 82 INTERPRETIVE STATEMENTS: Normal sinus rhythm Left bundle branch block Abnormal ECG Compared to ECG 04/01/2020 11:32:33 No significant changes Electronically Signed On 05-04-20 05:50:31 CDT by Ludin Mcfadden
[2020-05-04] MEDS: HYDROMORPHONE HCL 1 MG/ML INJ IV PRN ×6 (06:18→22:35)
[2020-05-04] MEDS: METOPROLOL TAR 25 MG TAB PO SCH ×2 (06:19→17:06)
[2020-05-04] MEDS ORDERED: BISACODYL 10 MG RECTAL SUPP PR PRN (06:41)
[2020-05-04] MEDS: DOCUSATE NA 100 MG CAP PO SCH (08:13)
[2020-05-04] MEDS: ENOXAPARIN 100 MG/ML SYR SQ SCH (08:14)
--- NOTE | 2020-05-04 09:24 | P.PN ---
Subjective Date of Service: 05/04/20 Primary Care Provider: Gloria Key Chief Complaint: Pancreatitis Subjective: Improving (Reports pain is slightly better, but feels pain medication wears off too quickly. He is getting thirsty/appetite and would like to try clear diet this morning. Reports some constipation - no BM in ~3-4 days) Physical Examination - Vital Signs Temperature: 97.6 F Blood Pressure: 188/105 Pulse: 79 Respirations: 18 Pulse Ox (%): 96 - Physical Exam General: Alert, In no apparent distress HEENT: Sclerae nonicteric Neck: Supple, No LAD Respiratory: Clear to auscultation bilaterally, Normal air movement Cardiovascular: No edema, Regular rate/rhythm, Normal S1 S2 Gastrointestinal: Soft and benign, Tenderness (Epigastrium, mild-moderate) Musculoskeletal: No tenderness Integumentary: No rashes Neurological: Normal speech, Normal affect Assessment & Plan Physician Review Additional Text: Acute alcoholic pancreatitis Chronic systolic congestive heart failure secondary to alcoholic cardiomyopathy Acute kidney injury on chronic kidney disease stage III Hypertension Gout Acute alcoholic pancreatitis: -IVF increased to 120 /hr yesterday , can cut back once tolerating diet -can slowly advance to CLD this morning as pain is somewhat improving -no daily alcohol use, low risk for withdrawal Chronic systolic congestive heart failure secondary to alcoholic cardiomyopathy: -prior EF ~20%, TTE & Cath 07/2019 with stent placement in the LAD. -Cardiology recommended pacemaker/defibrillator after he abstains from EtOH. During his last hospitalization he had asymptomatic runs of V-tach. -troponins elevated to 0.7 and downtrended. 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 -continue home metoprolol -holding home ARB in setting of BRIDGER -start scheduled PO hydralazine @10mg BID Constipation -likely due to pancreatitis and pain medication -start Colace, patient requesting Dulcolax this morning Gout: stable, continue home med once tolerating PO VTE: lovenox Dispo: anticipate dc home in the next ~48 hrs Time Spent Managing Pts Care (In Minutes): 32
[2020-05-04] MEDS: HYDRALAZINE HCL 10 MG TABLET PO SCH ×3 (09:30→20:08)
--- NOTE | 2020-05-04 14:25 | ECHO ---
HEIGHT: 6 ft 3 in WEIGHT: 223 lb 0 oz DATE OF STUDY: 02/02/[address]: Ludin Mcfadden MD 2-DIMENSIONAL: YES M.MODE: YES DOPPLER: YES COLOR FLOW: YES TDS: PORTABLE: DEFINITY: BUBBLE STUDY: DIAGNOSIS: CONGESTIVE HEART FAILURE CARDIAC HISTORY: CATHERIZATION: NO SURGERY: NO PROSTHETIC VALVE: NO PACEMAKER: NO MEASUREMENTS (cm) DIASTOLIC (NORMALS) SYSTOLIC (NORMALS) IVSd 1.1 (0.6-1.2) LA Diam 3.8 (1.9-4.0) LVEF 72% LVIDd 5.3 (3.5-5.7) LVIDs 3.1 (2.0-3.5) %FS 42% LVPWd 1.2 (0.6-1.2) Ao Diam 3.2 (2.0-3.7) 2 DIMENSIONAL ASSESSMENT: RIGHT ATRIUM: NORMAL LEFT ATRIUM: NORMAL RIGHT VENTRICLE: NORMAL LEFT VENTRICLE: NORMAL TRICUSPID VALVE: NORMAL MITRAL VALVE: NORMAL PULMONIC VALVE: NORMAL AORTIC VALVE: NORMAL PERICARDIAL EFFUSION: NONE AORTIC ROOT: NORMAL LEFT VENTRICULAR WALL MOTION: NORMAL DOPPLER/COLOR FLOW: NORMAL COMMENTS: NORMAL LEFT VENTRICULAR SIZE AND FUNCTION. NO WALL MOTION ABNORMALITY. NO EFFUSION. CARDIOMYOPATHY RESOLVED. TECHNOLOGIST: CHICHO MALDONADO
[2020-05-04] MEDS: NACHLORIDE 0.45% 1,000 ML IV SCH (21:38)
[2020-05-05] MEDS: HYDROMORPHONE HCL 1 MG/ML INJ IV PRN (01:36)
[2020-05-05 04:14] LABS: Basophils % 0.3 % (0-1.3); Hematocrit 35.8 % (39.6-49.0); Lymphocytes % 21.1 % (15.3-44.8); MPV 9.6 fL (7.6-11.3); RBC Red Blood Cell Count 4.06 M/uL (4.33-5.43)
[2020-05-05 04:27] LABS: Magnesium 1.9 mg/dL (1.8-2.4); Potassium 3.8 mmol/L (3.5-5.1)
[2020-05-05] MEDS: METOPROLOL TAR 25 MG TAB PO SCH (05:31)
[2020-05-05 05:34] VITALS: TEMP 98.2
[2020-05-05] MEDS ORDERED: HYDROMORPHONE HCL 1 MG/ML INJ IV PRN (07:24)
[2020-05-05] MEDS ORDERED: POTASSIUM 25 MEQ EFFERV TAB PO ONE (08:00)
--- NOTE | 2020-05-05 08:19 | P.PN ---
Subjective Date of Service: 05/05/20 Primary Care Provider: Gloria Key Chief Complaint: Pancreatitis Subjective: Improving, Doing well Physical Examination - Vital Signs Temperature: 98.2 F Blood Pressure: 163/81 Pulse: 75 Respirations: 18 Pulse Ox (%): 96 - Physical Exam General: Alert, In no apparent distress HEENT: Atraumatic, PERRLA, EOMI Neck: Supple, JVD not distended Cardiovascular: Regular rate/rhythm, Normal S1 S2 Capillary refill: <2 Seconds Gastrointestinal: Normal bowel sounds, No tenderness Musculoskeletal: No tenderness Integumentary: No rashes Neurological: Normal speech, Normal tone, Normal affect Lymphatics: No axilla or inguinal lymphadenopathy Assessment & Plan Physician Review Additional Text: Assessment BRIDGER on CKD; baseline creatinine 1.5 to 1.7 Pancreatitis Hypertension CHF compensated NSTEMI type 2 most likely demand ischemia. PLAN IVF switched to 1/2 ns @120cc/h. Kidney function back to baseline Ok to resume entresto Renal ultrasound negative for obstruction, but positive for chronic renal disease. Hold all acei/rbs, avoid contrast exposure. Renally clear for discharge.
[2020-05-05] MEDS: NACHLORIDE 0.45% 1,000 ML IV SCH ×2 (09:00→13:00)
[2020-05-05 09:01] VITALS: O2SAT 96
[2020-05-05] MEDS: DOCUSATE NA 100 MG CAP PO SCH (09:01)
[2020-05-05] MEDS: ENOXAPARIN 100 MG/ML SYR SQ SCH (09:01)
[2020-05-05] MEDS: HYDRALAZINE HCL 10 MG TABLET PO SCH (09:01)
--- NOTE | 2020-05-05 11:32 | PN ---
Date of Progress Note: 05/04/2020 Subjective: Mr. Paulino came in with abdominal pain, midepigastric pain, diagnosed with pancreatitis wi th elevated amylase and lipase. He has had a history of alcoholic cardiomyopathy with ejection fract ion of 20%-25% and was supposed to be on carvedilol, Lasix and lisinopril. He has been noncompliant. He came in hypertensive with pancreatitis. Echocardiogram was repeated however, and it showed norm al ejection fraction. His cardiomyopathy has resolved. We will continue present regimen. He remain s hypertensive. He is only on hydralazine for now. We will continue to watch him and control his pa in. He was counseled against drinking alcohol. BIANCA/MODL Voice ID: [id number] Report ID: [id number]
--- NOTE | 2020-05-05 11:48 | PN ---
Date of Progress Note: 05/05/2020 Subjective: Mr. Paulino has been followed for cardiomyopathy, ejection fraction 20%-25% that has resolv ed. His echocardiogram is now normal with an ejection fraction of more than 65%. He came in with pa ncreatitis, hypertensive crisis and chest pain. His pain has improved. His blood pressure remains h igh at 170/90. He is on hydralazine. I will add metoprolol 50 b.i.d. He should also be on low-dose lisinopril as well. I think hydrochlorothiazide and Lasix may be exacerbated pancreatitis and may be we should wait for now considering that his cardiomyopathy has resolved. So he should be on hydrala zine, lisinopril, metoprolol and hopefully go home without drinking alcohol in the near future. I wi ll sign off his case for now. BIANCA/TERRELL Voice ID: [id number] Report ID: [id number]
[2020-05-05] MEDS: HYDRALAZINE HCL 20 MG/ML VIAL IV PRN (11:52)
--- NOTE | 2020-05-05 17:35 | P.DS ---
Admission Date: 05/02/20 Discharge Date: 05/05/20 Primary Care Provider: Gloria Key Disposition: ROUTINE DISCHARGE Discharge Condition: GOOD Reason for Admission: Pancreatitis Consultations: Nephrology - Dr. Orellana Cardiology - Dr. Mcfadden Procedures: CT abdomen/pelvis: Mild acute pancreatitis Renal ultrasound: Increase renal echotexture consistent with parenchymal diseas e TTE (05/04): Normal LV size and function, no wall motion abnormality, no effusion. Cardiomyopathy resolved Problem list Acute alcoholic pancreatitis Chronic systolic congestive heart failure secondary to alcoholic cardiomyopathy Acute kidney injury on chronic kidney disease stage III Hypertension Gout Brief History of Present Illness: 59-year-old male with history of alcoholic pancreatitis, systolic congestive heart failure, hypertension, gout, chronic kidney disease presents emergency department for abdominal pain. Patient reports that over the course of this last weekend he consumed approximately 1 pt of gin. Patient was worked up in the emergency department and found to have a lipase greater than [address] findings to support a mild to moderate pancreatitis without pseudocyst or signs of necrosis. Patient also with history of alcoholic cardiomyopathy with significant systolic congestive heart failure. Patient's creatinine elevated when compared to baseline and GFR lower than baseline levels. ED provider wishes to admit patient for further evaluation and management. Hospital Course: Patient was admitted for further management and evaluation of his pancreatitis and mildly elevated troponin of 0.69. Pancreatitis- he was initially kept NPO and treated with pain control and mild IV fluid hydration given his history of heart failure with reduced ejection fraction. Over the course of his hospitalization his pain improved the patient was slowly advanced to GI soft diet. On day of discharge the patient did not require any pain medication and was tolerating a soft diet without any nausea/vomiting/pain. Elevated troponin- cardiology was consulted, troponin peaked at 0.7 and came back down. A repeat echocardiogram was performed which showed resolution of his prior cardiomyopathy. His home Lasix was discontinued, as metoprolol was increased to and he was started on hydralazine 10 mg b.i.d. for his hypertension. Due to the patient's BRIDGER (2.63), nephrology was consulted. His kidney function improved with IV fluid hydration. This was likely all prerenal in the setting of his acute pancreatitis. He will continue with his home Entresto on discharge. Vital Signs/Physical Exam: Temp Pulse Resp BP Pulse Ox 98.2 F 67 18 176/99 H 98 05/05/20 12:00 05/05/20 12:00 05/05/20 12:00 05/05/20 12:00 05/05/20 12:00 General: Alert, In no apparent distress HEENT: Mucous membr. moist/pink, Sclerae nonicteric Neck: Supple, No LAD Respiratory: Clear to auscultation bilaterally, Normal air movement Cardiovascular: No edema, Regular rate/rhythm, Normal S1 S2 Gastrointestinal: Normal bowel sounds, Soft and benign, Non-distended, No tenderness Musculoskeletal: No tenderness Integumentary: No rashes Neurological: Normal speech, Normal affect Laboratory Data at Discharge: WBC 4.8 K/uL (4.3-10.9) D 05/05/20 03:27 Hgb 12.0 g/dL (13.6-17.9) L 05/05/20 03:27 Hct 35.8 % (39.6-49.0) L 05/05/20 03:27 Plt Count 124 K/uL (152-406) L 05/05/20 03:27 Sodium 141 mmol/L (136-145) 05/05/20 03:27 Potassium 3.8 mmol/L (3.5-5.1) 05/05/20 03:27 BUN 17 mg/dL (7-18) 05/05/20 03:27 Creatinine 1.61 mg/dL (0.55-1.3) H 05/05/20 03:27 Glucose 93 mg/dL (74-106) 05/05/20 03:27 Phosphorus 3.1 mg/dL (2.5-4.9) 05/04/20 03:28 Magnesium 1.9 mg/dL (1.8-2.4) 05/05/20 03:27 Total Bilirubin 0.7 mg/dL (0.2-1.0) 05/04/20 03:28 AST 48 U/L (15-37) H 05/04/20 03:28 ALT 28 U/L (12-78) 05/04/20 03:28 Alkaline Phosphatase 81 U/L (45-117) 05/04/20 03:28 Troponin I 0.68 ng/mL (0.0-0.045) H* 05/03/20 10:18 Triglycerides 172 mg/dL (<150) H 05/02/20 23:00 Cholesterol 137 mg/dL (<200) 05/02/20 23:00 HDL Cholesterol 81 mg/dL (40-60) H 05/02/20 23:00 Cholesterol/HDL Ratio 1.69 05/02/20 23:00 Lipase 634 U/L (73-393) H 05/05/20 03:27 Home Medications: Allopurinol 300 mg PO DAILY 01/22/20 Atorvastatin Calcium 40 mg PO BEDTIME 01/22/20 Gabapentin [Neurontin*] 100 mg PO TIDP PRN 01/22/20 Probenecid/Colchicine [Probenecid-Colchicine Tablet] 1 tab PO SEECOM 01/22/20 Sacubitril/Valsartan [Entresto 24 mg-26 mg Tablet] 1 tab PO DAILY 01/22/20 Hydralazine [Apresoline*] 10 mg PO BID 30 Days #60 tab 05/05/20 Metoprolol Tartrate 50 mg PO BID #60 tablet 05/05/20 New Medications: Hydralazine [Apresoline*] 10 mg PO BID 30 Days #60 tab Metoprolol Tartrate 50 mg PO BID #60 tablet Patient Discharge Instructions: follow up with PCP within 1-2 weeks. follow up with Dr. Mcfadden. Stop taking furosemide (Lasix). New medications: metoprolol 50mg twice a day. Do not drink any alcohol. Hydralazine 10mg twice a day Diet: AHA Activity: Ad pelon Followup: Ludin Mcfadden MD [ACTIVE - CAN ADMIT] - Time spent managing pt's care (in minutes): 35
[2020-05-05] MEDS ORDERED: METOPROLOL TAR 50 MG TAB PO SCH (18:00)
[2020-05-05 19:41] VITALS: BP 163/81
== END 2020-05-05 14:36 | disposition home or self-care (01) | DRG 438 ==
LOC: ER 18:19 → ERHOLD 21:06 → 4TH 21:27
PROVIDERS: ADMIT Hospitalist; ATTEND Hospitalist
DX: K85.20 Alcohol induced acute pancreatitis without necrosis or infection (principal); I21.A1 Myocardial infarction type 2; I13.0 Hypertensive heart and chronic kidney disease with heart failure and stage 1 through stage 4 chronic kidney disease, or unspecified chronic kidney disease; I50.22 Chronic systolic (congestive) heart failure; I42.6 Alcoholic cardiomyopathy; N17.9 Acute kidney failure, unspecified; E86.0 Dehydration; N18.3 Chronic kidney disease, stage 3 (moderate); K59.00 Constipation, unspecified; M10.9 Gout, unspecified; R00.0 Tachycardia, unspecified; Z86.73 Personal history of transient ischemic attack (TIA), and cerebral infarction without residual deficits; Z95.5 Presence of coronary angioplasty implant and graft; Z88.0 Allergy status to penicillin; Z79.899 Other long term (current) drug therapy; Z91.19 Patient's noncompliance with other medical treatment and regimen; Z20.828 Contact with and (suspected) exposure to other viral communicable diseases
CPT/HCPCS: 36415; 74176; 76770; 80048; 80053; 80061; 80076; 82550; 83690; 83735; 84100; 84484; 85025; 93005; 93306; 96361; 96374; 96375; 99285; J0360; J1170; J1644; J1650; J2405; J3475; J7030; U0003

== ENCOUNTER 2020-07-05 23:49 | Emergency (ER) | payer MEDICARE ==
[2020-07-06] MEDS ORDERED: KETOROLAC 30 MG/ML INJ ONE ×2 (00:24→01:13)
[2020-07-06] MEDS ORDERED: NA CHLORIDE 0.9% 500 ML ONE (01:13)
[2020-07-06] MEDS ORDERED: LIDOCAINE 1% W/EPI 1:100,000 MDV 20 ML VIAL ONE (01:13)
[2020-07-06] MEDS ORDERED: COLCHICINE 0.6 MG TAB ONE ×2 (01:13→02:15)
[2020-07-06] MEDS ORDERED: CEFAZOLIN/SWI 1gm 1 GM/10 ML SYR ONE (01:20)
[2020-07-06] MEDS ORDERED: dexAMETHasone 10 MG/ML VIAL ONE (01:20)
[2020-07-06 01:28] LABS: Absolute Lymphocytes (CBC) 0.9 K/uL (0.7-4.9); Basophils % 0.3 % (0-1.3); Hematocrit 39.9 % (39.6-49.0); Lymphocytes % 13.9 % (15.3-44.8); MPV 9.2 fL (7.6-11.3)
[2020-07-06 01:37] LABS: Albumin 2.8 g/dL (3.4-5.0); Bilirubin Total 1.1 mg/dL (0.2-1.0); Potassium 3.6 mmol/L (3.5-5.1); Protein, Total 7.6 g/dL (6.4-8.2); Uric Acid 4.7 mg/dL (3.5-7.2)
[2020-07-06] MEDS ORDERED: ACETYLCYST 6,000 MG/30 ML VIAL ONE (03:05)
--- NOTE | 2020-07-06 04:04 | EDPHYS ---
Physician Documentation [facility] Name: Natan Paulino Sr Age: 60 yrs Sex: Male : 1960 Arrival Date: 07/05/2020 Time: 23:55 Bed 7 Private MD: ED Physician Brandon Masterson HPI: 07/06 00:55 This 60 yrs old Black Male presents to ER via Wheelchair with complaints of Knee Pain. deejay 00:55 The patient presents with decreased range of motion, pain, swelling, tenderness. The deejay complaints affect the right leg and left knee. Context: The problem was sustained at an unknown site, resulted from an unknown cause. Onset: The symptoms/episode began/occurred 1 day(s) ago. Modifying factors: The symptoms are alleviated by nothing. remaining still, the symptoms are aggravated by movement, weight bearing, bending knee. Associated signs and symptoms: The patient has no apparent associated signs or symptoms. Treatment prior to arrival includes: no previous treatment. Severity of symptoms: At their worst the symptoms were moderate, severe, in the emergency department the symptoms are unchanged. The patient has experienced similar episodes in the past, multiple times. Historical: - Allergies: 00:05 PENICILLINS; wh - PMHx: 00:05 CHF; Gout; Hypertension; osteoarthritis; Pancreatitis; Rheumatoid Arthritis; TIA; wh - PSHx: 00:05 Stent Placement; wh - Immunization history:: Adult Immunizations unknown. - Social history:: Smoking status: Patient uses alcohol, occasionally. Patient/guardian denies using. - Family history:: not pertinent. ROS: 00:55 Constitutional: Negative for fever, chills, and weight loss, Eyes: Negative for injury, deejay pain, redness, and discharge, ENT: Negative for injury, pain, and discharge, Neck: Negative for injury, pain, and swelling, Cardiovascular: Negative for chest pain, palpitations, and edema, Respiratory: Negative for shortness of breath, cough, wheezing, and pleuritic chest pain, Abdomen/GI: Negative for abdominal pain, nausea, vomiting, diarrhea, and constipation, Back: Negative for injury and pain, : Negative for injury, bleeding, discharge, and swelling, Skin: Negative for injury, rash, and discoloration, Neuro: Negative for headache, weakness, numbness, tingling, and seizure. 00:55 MS/extremity: Positive for decreased range of motion, pain, swelling, tenderness, of the right leg and left leg. Exam: 00:55 Constitutional: This is a well developed, well nourished patient who is awake, alert, deejay and in no acute distress. Head/Face: Normocephalic, atraumatic. Eyes: Pupils equal round and reactive to light, extra-ocular motions intact. Lids and lashes normal. Conjunctiva and sclera are non-icteric and not injected. Cornea within normal limits. Periorbital areas with no swelling, redness, or edema. ENT: Nares patent. No nasal discharge, no septal abnormalities noted. Tympanic membranes are normal and external auditory canals are clear. Oropharynx with no redness, swelling, or masses, exudates, or evidence of obstruction, uvula midline. Mucous membranes moist. Neck: Trachea midline, no thyromegaly or masses palpated, and no cervical lymphadenopathy. Supple, full range of motion without nuchal rigidity, or vertebral point tenderness. No Meningismus. Chest/axilla: Normal chest wall appearance and motion. Nontender with no deformity. No lesions are appreciated. Cardiovascular: Regular rate and rhythm with a normal S1 and S2. No gallops, murmurs, or rubs. Normal PMI, no JVD. No pulse deficits. Respiratory: Lungs have equal breath sounds bilaterally, clear to auscultation and percussion. No rales, rhonchi or wheezes noted. No increased work of breathing, no retractions or nasal flaring. Abdomen/GI: Soft, non-tender, with normal bowel sounds. No distension or tympany. No guarding or rebound. No evidence of tenderness throughout. Back: No spinal tenderness. No costovertebral tenderness. Full range of motion. Male : Normal genitalia with no discharge or lesions. Skin: Warm, dry with normal turgor. Normal color with no rashes, no lesions, and no evidence of cellulitis. Neuro: Awake and alert, GCS 15, oriented to person, place, time, and situation. Cranial nerves II-XII grossly intact. Motor strength 5/5 in all extremities. Sensory grossly intact. Cerebellar exam normal. Normal gait. Psych: Awake, alert, with orientation to person, place and time. Behavior, mood, and affect are within normal limits. 00:55 Musculoskeletal/extremity: ROM: full passive range of motion, limited active range of motion due to pain, in the right leg and left leg, Circulation is intact in all extremities. Sensation intact. Compartment Syndrome exam of affected extremity: is normal. DVT Exam: negative Homans' sign noted on exam, no appreciated bluish discoloration, no erythema, no increased warmth, pain, swelling, tenderness. Vital Signs: 00:03 BP 170 / 114; Pulse 99; Resp 18; Temp 97.9; Pulse Ox 100% ; Weight 102.06 kg; Height 6 wh ft. 2 in. (187.96 cm); Pain 9/10; 01:00 BP 158 / 106; Pulse 83; Resp 18; Pulse Ox 99% on R/A; wh 02:00 BP 153 / 89; Pulse 69; Resp 18; Pulse Ox 99% on R/A; wh 03:00 BP 145 / 84; Pulse 67; Resp 18; Pulse Ox 99% on R/A; wh 04:00 BP 158 / 99; Pulse 61; Resp 16; Pulse Ox 100% on R/A; wh 00:03 Body Mass Index 28.89 (102.06 kg, 187.96 cm) Procedures: 00:57 Joint Treatment: Aspiration of bilateral knee using 18 gauge needle, Removed cloudy deejay fluid, Dressed with band aid, Patient tolerated well. MDM: 00:11 Patient medically screened. deejay 00:57 Differential diagnosis: contusion, abrasion. Data reviewed: vital signs, nurses notes, [facility] lab test result(s), radiologic studies. Data interpreted: property assessment monitor: rate is 99 beats/min, rhythm is regular, Pulse oximetry: on room air is 100 %. Test interpretation: by ED physician or midlevel provider: plain radiologic studies. Counseling: I had a detailed discussion with the patient and/or guardian regarding: the historical points, exam findings, and any diagnostic results supporting the discharge/admit diagnosis, lab results, radiology results, the need for outpatient follow up, for definitive care, a orthopedic surgeon. 07/06 00:51 Order name: CBC with Diff; Complete Time: 02:48 deejay 07/06 00:51 Order name: Comprehensive Metabolic Panel; Complete Time: 02:48 deejay 07/06 00:51 Order name: Uric Acid; Complete Time: 02:48 deejay 07/06 01:19 Order name: Body Fluid Cell Count [facility] 07/06 01:19 Order name: Body Fluid Crystals [facility] 07/06 00:08 Order name: Knee Left 3 View XRAY [facility] 07/06 01:19 Order name: Body Fluid Culture [facility] 07/06 01:24 Order name: Misc. Lab Test 07/06 01:24 Order name: Misc. Lab Test 07/06 01:26 Order name: Lactic Dehydrogenase; Complete Time: 02:48 [facility] 07/06 00:52 Order name: Dressing - Wound; Complete Time: 01:05 [facility] 07/06 00:52 Order name: Gloves, Sterile; Complete Time: 01:05 [facility] 07/06 00:52 Order name: Setup Suture Tray; Complete Time: 01:05 [facility] Administered Medications: 00:13 Drug: Ketorolac 30 mg Route: IM; Site: right gluteus; 01:05 Follow up: Response: No adverse reaction; Pain is unchanged, physician notified 02:19 Follow up: Response: No adverse reaction; Pain is unchanged, physician notified 01:00 Drug: Colcrys 1.2 mg Route: PO; 02:19 Follow up: Response: No adverse reaction 01:02 Drug: NS 0.9% 500 ml Route: IV; Rate: bolus; Site: right forearm; 02:19 Follow up: Response: No adverse reaction; IV Status: Completed infusion 01:04 Drug: TORadol 30 mg Route: IVP; Site: right forearm; 02:18 Follow up: Response: No adverse reaction; Pain is decreased 01:05 Drug: Ancef 1 grams Route: IVPB; Site: right forearm; 02:18 Follow up: Response: No adverse reaction; IV Status: Completed infusion 01:10 Drug: Decadron - Dexamethasone 6 mg Route: IVP; Site: right forearm; 02:18 Follow up: Response: No adverse reaction 02:19 Drug: Colcrys 0.6 mg Route: PO; 04:22 Follow up: Response: No adverse reaction 02:58 Drug: Mucomyst - Acetylcysteine 600 mg Route: PO; 04:10 Follow up: Response: No adverse reaction 04:00 Drug: Lidocaine-Epinephrine -1%: (1:100,000) 10 ml {Note: Administered by Provider ignacia Masterson.} Volume: 20 ml; Route: Infiltration; 04:10 Drug: Neosporin Ointment 1 application Route: Topical; Site: affected area; Disposition: 07/06/20 04:04 Discharged to Home. Impression: Gout, Effusion, knee, Pain in left knee, Pain in right knee, Chronic kidney disease (CKD). - Condition is Stable. - Discharge Instructions: Joint Pain, Arthritis, Gout, Musculoskeletal Pain, Knee Pain, Cryotherapy, Tttn-ca-Rtrs, Gout, Mwez-rw-Nrmz, Arthritis, Uqsu-aq-Zyrg, Chronic Kidney Disease, Adult, Zpby-pk-Lghe, Cryotherapy, Chronic Kidney Disease, Adult, Knee Pain, Iufs-vv-Kvll, Joint Pain, Yltj-zs-Caoe. - Prescriptions for dexamethasone 2 mg Oral tablet - take 1 tablet by ORAL route 2 times per day; 10 tablet. Colchicine- Probenecid 0.5-500 mg Oral Tablet - take 1 tablet by ORAL route every 1 hour up to 3 hours; 3 tablet. Keflex 500 mg Oral Capsule - take 1 capsule by ORAL route every 6 hours for 7 days; 28 capsule. Tylenol- Codeine #3 300-30 mg Oral Tablet - take 2 tablet by ORAL route every 6 hours As needed; 30 tablet. - Medication Reconciliation Form, Thank You Letter, Antibiotic Education, Prescription Opioid Use form. - Follow up: Private Physician; When: 2 - 3 days; Reason: Recheck today's complaints, Continuance of care, Re-evaluation by your physician. Follow up: Cade Jack; When: 2 - 3 days; Reason: Recheck today's complaints, Re-evaluation by your physician. Follow up: Nicole Hennessy; When: 2 - 3 days; Reason: Recheck today's complaints, Continuance of care, Re-evaluation by your physician. - Problem is new. - Symptoms have improved. Signatures: Dispatcher [employer] EDMS Brandon Masterson MD MD cha Mickail, Joel, PA PA jmm Habalo, Winsy Corrections: (The following items were deleted from the chart) 01:26 01:19 Lactic Dehydrogenase ordered. EDNY EDMS 04:24 04:04 07/06/2020 04:04 Discharged to Home. Impression: Gout; Effusion, knee; Pain in left knee; Pain in right knee; Chronic kidney disease (CKD). Condition is Stable. Discharge Instructions: Joint Pain, Arthritis, Gout, Musculoskeletal Pain, Knee Pain, Cryotherapy, Dwau-im-Acbk, Gout, Lbet-wq-Cjnd, Arthritis, Saoh-jh-Uusy, Cryotherapy, Knee Pain, Hfzg-qd-Yzuw, Joint Pain, Luap-ef-Nqxi, Chronic Kidney Disease, Adult, Adun-yq-Xdmt, Chronic Kidney Disease, Adult. Prescriptions for dexamethasone 2 mg Oral tablet - take 1 tablet by ORAL route 2 times per day; 10 tablet, Colchicine-Probenecid 0.5-500 mg Oral Tablet - take 1 tablet by ORAL route every 1 hour up to 3 hours; 3 tablet, Keflex 500 mg Oral Capsule - take 1 capsule by ORAL route every 6 hours for 7 days; 28 capsule, Tylenol-Codeine #3 300-30 mg Oral Tablet - take 2 tablet by ORAL route every 6 hours As needed; 30 tablet. and Forms are Medication Reconciliation Form, Thank You Letter, Antibiotic Education, Prescription Opioid Use. Follow up: Private Physician; When: 2 - 3 days; Reason: Recheck today's complaints, Continuance of care, Re-evaluation by your physician. Follow up: Cade Jack; When: 2 - 3 days; Reason: Recheck today's complaints, Re-evaluation by your physician. Follow up: Nicole Hennessy; When: 2 - 3 days; Reason: Recheck today's complaints, Continuance of care, Re-evaluation by your physician. Problem is new. Symptoms have improved. deejay
--- NOTE | 2020-07-06 04:04 | ER ---
Nurse's Notes [facility] Name: Natan Paulino Sr Age: 60 yrs Sex: Male : 1960 Arrival Date: 07/05/2020 Time: 23:55 Bed 7 Private MD: Diagnosis: Gout;Effusion, knee;Pain in left knee;Pain in right knee;Chronic kidney disease (CKD) Presentation: 07/06 00:03 Chief complaint: Patient states: left knee pain that started today. Pt with Hx of OA wh and Gout. Pt stated took Allopurinol and 800 mg Ibuprofen but didn't help. Coronavirus screen: Client denies travel out of the [place] in the last 14 days. At this time, the client does not indicate any symptoms associated with coronavirus-19. Ebola Screen: Patient negative for fever greater than or equal to 101.5 degrees Fahrenheit, and additional compatible Ebola Virus Disease symptoms Patient denies exposure to infectious person. Initial Sepsis Screen: Does the patient meet any 2 criteria? HR > 90 bpm. Does the patient have a suspected source of infection? No. Patient's initial sepsis screen is negative. Risk Assessment: Do you want to hurt yourself or someone else? Patient reports no desire to harm self or others. Onset of symptoms was July 06, 2020. 00:03 Method Of Arrival: Wheelchair 00:03 Acuity: NINO 4 wh Historical: - Allergies: 00:05 PENICILLINS; wh - PMHx: 00:05 CHF; Gout; Hypertension; osteoarthritis; Pancreatitis; Rheumatoid Arthritis; TIA; - PSHx: 00:05 Stent Placement; - Immunization history:: Adult Immunizations unknown. - Social history:: Smoking status: Patient uses alcohol, occasionally. Patient/guardian denies using. - Family history:: not pertinent. Screenin:07 Abuse screen: Denies threats or abuse. Denies injuries from another. Nutritional screening: No deficits noted. Tuberculosis screening: No symptoms or risk factors identified. Fall Risk None identified. Assessment: 00:05 General: Appears in no apparent distress. uncomfortable, Behavior is calm, cooperative, wh appropriate for age. Pain: Complains of pain in left knee Pain does not radiate. Pain currently is 9 out of 10 on a pain scale. Pain began 1 day ago. Neuro: Level of Consciousness is awake, alert, obeys commands, Oriented to person, place, time, situation, Appropriate for age. Cardiovascular: Capillary refill < 3 seconds. Respiratory: Airway is patent Respiratory effort is even, unlabored, Respiratory pattern is regular, symmetrical. GI: Abdomen is flat, non-distended. : No signs and/or symptoms were reported regarding the genitourinary system. EENT: No signs and/or symptoms were reported regarding the EENT system. Derm: Skin is intact, is healthy with good turgor, Skin is pink, warm \T\ dry. normal. Musculoskeletal: Circulation, motion, and sensation intact. 01:30 Reassessment: Patient appears in no apparent distress at this time. No changes from previously documented assessment. Patient and/or family updated on plan of care and expected duration. Pain level reassessed. Patient is alert, oriented x 3, equal unlabored respirations, skin warm/dry/pink. 03:00 Reassessment: Patient appears in no apparent distress at this time. Patient and/or family updated on plan of care and expected duration. Pain level reassessed. Patient is alert, oriented x 3, equal unlabored respirations, skin warm/dry/pink. 04:15 Reassessment: Patient appears in no apparent distress at this time. Patient and/or family updated on plan of care and expected duration. Pain level reassessed. Patient is alert, oriented x 3, equal unlabored respirations, skin warm/dry/pink. Vital Signs: 00:03 BP 170 / 114; Pulse 99; Resp 18; Temp 97.9; Pulse Ox 100% ; Weight 102.06 kg; Height 6 ft. 2 in. (187.96 cm); Pain 9/10; 01:00 BP 158 / 106; Pulse 83; Resp 18; Pulse Ox 99% on R/A; 02:00 BP 153 / 89; Pulse 69; Resp 18; Pulse Ox 99% on R/A; 03:00 BP 145 / 84; Pulse 67; Resp 18; Pulse Ox 99% on R/A; 04:00 BP 158 / 99; Pulse 61; Resp 16; Pulse Ox 100% on R/A; 00:03 Body Mass Index 28.89 (102.06 kg, 187.96 cm) ED Course: 07/05 23:55 Patient arrived in ED. cf2 23:55 Shorty Benedict is Primary Nurse. 07/06 00:05 Triage completed. wh 00:07 Arm band placed on right wrist. wh 00:07 Patient has correct armband on for positive identification. Bed in low position. Call light in reach. Side rails up X 1. Pulse ox on. NIBP on. 00:11 Brandon Masterson MD is Attending Physician. deejay 00:44 Knee Left 3 View XRAY In Process Unspecified. EDMS 00:55 Inserted saline lock: 20 gauge in right forearm, using aseptic technique. Blood rv collected. 00:55 Initial lab(s) drawn, by tx, sent to lab. rv 04:00 Assist provider with aspiration of left knee using 18 gauge needle, Lidocaine, Set up for procedure. Performed by Brandon Masterson MD Dressed with band aid, Neosporin. Patient did not have IV access during this emergency room visit. 04:04 Cade Jack MD is Referral Physician. deejay 04:04 Nicole Hennessy MD is Referral Physician. deejay Administered Medications: 00:13 Drug: Ketorolac 30 mg Route: IM; Site: right gluteus; 01:05 Follow up: Response: No adverse reaction; Pain is unchanged, physician notified 02:19 Follow up: Response: No adverse reaction; Pain is unchanged, physician notified 01:00 Drug: Colcrys 1.2 mg Route: PO; 02:19 Follow up: Response: No adverse reaction 01:02 Drug: NS 0.9% 500 ml Route: IV; Rate: bolus; Site: right forearm; 02:19 Follow up: Response: No adverse reaction; IV Status: Completed infusion 01:04 Drug: TORadol 30 mg Route: IVP; Site: right forearm; 02:18 Follow up: Response: No adverse reaction; Pain is decreased 01:05 Drug: Ancef 1 grams Route: IVPB; Site: right forearm; 02:18 Follow up: Response: No adverse reaction; IV Status: Completed infusion 01:10 Drug: Decadron - Dexamethasone 6 mg Route: IVP; Site: right forearm; 02:18 Follow up: Response: No adverse reaction 02:19 Drug: Colcrys 0.6 mg Route: PO; 04:22 Follow up: Response: No adverse reaction 02:58 Drug: Mucomyst - Acetylcysteine 600 mg Route: PO; 04:10 Follow up: Response: No adverse reaction 04:00 Drug: Lidocaine-Epinephrine -1%: (1:100,000) 10 ml {Note: Administered by Provider ignacia Masterson.} Volume: 20 ml; Route: Infiltration; 04:10 Drug: Neosporin Ointment 1 application Route: Topical; Site: affected area; Outcome: 04:04 Discharge ordered by MD. villalba 04:24 Discharged to home ambulatory. 04:24 Condition: stable 04:24 Discharge instructions given to patient, Instructed on discharge instructions, follow up and referral plans. medication usage, POC Demonstrated understanding of instructions, follow-up care, medications, POC Prescriptions given X 4. 04:24 Patient left the ED. Signatures: Dispatcher [employer] EDAL Brandon Masterson MD MD cha Habalo, Winsy Shawn Kerr RN RN Pierre Alatorre cf2 Corrections: (The following items were deleted from the chart) 04:24 04:24 Discharge instructions given to patient, Instructed on discharge instructions, follow up and referral plans. medication usage, POC Demonstrated understanding of instructions, follow-up care, medications, POC Prescriptions given X 2,
[2020-07-06 04:26] LABS: Body Fluid WBC 1852 /mm^3
[2020-07-06 04:54] LABS: Body Fluid Source SYNOVIAL
[2020-07-06 04:55] LABS: Appearance SLT. TURBID (CLEAR); Color of fluid Yellow (COLORLESS)
--- NOTE | 2020-07-06 07:06 | RAD REPORT ---
EXAM DESCRIPTION: RAD - Knee Left 3 View - 07/06/2020 12:44 am CLINICAL HISTORY: pain, swelling, history of gout COMPARISON: No comparisons FINDINGS: No fracture, dislocation or periosteal reaction.Small joint effusion is present. Marginal spurs are present along the patella and medial compartment articular margins. Bony hypertrophy is pre sent at the quadriceps and patella tendon attachments to the patella. Slight narrowing of the medial compartment noted. A small focus of erosive changes seen along the medial tibial plateau on the obliq ue view. No abnormal soft tissue calcifications. IMPRESSION: Left knee joint and bony degenerative changes are present including probable gout change s along the medial tibial plateau. No acute or emergent finding Clinical concerns for internal derangement or occult bony injury could be further assessed with MR im aging.
[2020-07-06 11:36] VITALS: TEMP 97.9
[2020-07-06 11:42] VITALS: BP 158/99; O2SAT 100
== END 2020-07-06 04:24 | disposition home or self-care (01) ==
LOC: ER 23:49
PROC: 0S9D3ZX Drainage of Left Knee Joint, Percutaneous Approach, Diagnostic (ICD-10-PCS; principal; 2020-07-06)
PROC: 0S9C3ZX Drainage of Right Knee Joint, Percutaneous Approach, Diagnostic (ICD-10-PCS; 2020-07-06)
DX: M25.462 Effusion, left knee (principal); M10.9 Gout, unspecified; M25.561 Pain in right knee; I13.0 Hypertensive heart and chronic kidney disease with heart failure and stage 1 through stage 4 chronic kidney disease, or unspecified chronic kidney disease; N18.9 Chronic kidney disease, unspecified; I50.9 Heart failure, unspecified; Z88.0 Allergy status to penicillin
CPT/HCPCS: 96365; 87070; 85025; 36415; 89050; 83615; 84550; 80053; 89060; 73562; 96375; 96372; 99284; 20610; J1100; J0690; J7040

== ENCOUNTER 2020-08-02 15:43 | Emergency (ER) | payer MEDICARE ==
[2020-08-02] MEDS ORDERED: TETANUS & DIPHTHERIA TOX,ADULT 0.5 ML VIAL ONE (16:22)
[2020-08-02] MEDS ORDERED: LIDOCAINE 1% MPF 5 ML VIAL ONE (16:22)
[2020-08-02] MEDS ORDERED: BUPIVACAINE 0.5% PF 10 ML VIAL ONE (16:22)
[2020-08-02 16:33] LABS: Basophils % 0.6 % (0-1.3); Hematocrit 45.1 % (39.6-49.0); Lymphocytes % 7.7 % (15.3-44.8); MPV 8.8 fL (7.6-11.3); RBC Red Blood Cell Count 5.12 M/uL (4.33-5.43)
[2020-08-02] MEDS ORDERED: CLINDAMYCIN 900MG/D5W 900 MG/50 ML IVPB IV ONE (16:37)
[2020-08-02 16:50] LABS: Albumin 3.1 g/dL (3.4-5.0); Bilirubin Total 0.9 mg/dL (0.2-1.0); Potassium 4.1 mmol/L (3.5-5.1)
[2020-08-02] MEDS ORDERED: COLCHICINE 0.6 MG TAB ONE (16:51)
--- NOTE | 2020-08-02 17:07 | RAD REPORT ---
EXAM DESCRIPTION: RAD -Hand Left 3 View - 08/02/2020 4:55 pm CLINICAL HISTORY: Left hand pain FINDINGS: No fracture or dislocation is seen. Erosions involve the wrist as well as MCP, PIP and DIP joints. It is most marked at the DIP joint in which there is significant bone destruction. Prominent soft tissue swelling. This probably is seconda ry to gout
[2020-08-02] MEDS ORDERED: MORPHINE 4 MG/ML SYR ONE (17:19)
[2020-08-02] MEDS ORDERED: NA CHLORIDE 0.9% 1,000 ML ONE (17:20)
[2020-08-02] MEDS ORDERED: ONDANSETRON 4 MG/2 ML VIAL ONE (17:20)
--- NOTE | 2020-08-02 18:27 | ER ---
Nurse's Notes [facility] Name: Natan Paulino Sr Age: 60 yrs Sex: Male : 1960 Arrival Date: 08/02/2020 Time: 15:45 Bed 2 Private MD: Diagnosis: Gout due to renal impairment, left hand;Cutaneous abscess of left hand-5th left digit;Cellulitis and acute lymphangitis of other parts of limb-left 5th finger Presentation: 08/02 16:08 Chief complaint: Patient states: got bit by an unknown insect to the left 5th digit 2 sv days ago. c/o swelling. Coronavirus screen: Client denies travel out of the [place] in the last 14 days. At this time, the client does not indicate any symptoms associated with coronavirus-19. Ebola Screen: No symptoms or risks identified at this time. Risk Assessment: Do you want to hurt yourself or someone else? Patient reports no desire to harm self or others. Onset of symptoms was July 31, 2020. 16:08 Method Of Arrival: Ambulatory sv 16:08 Acuity: NINO 3 sv Triage Assessment: 16:59 Bite description: animal information: vaccination(s). tw2 Historical: - Allergies: 16:10 PENICILLINS; sv - PMHx: 16:10 CHF; Gout; Hypertension; osteoarthritis; Pancreatitis; Rheumatoid Arthritis; TIA; sv - PSHx: 16:10 Stent Placement; sv - Immunization history:: Adult Immunizations up to date, Flu vaccine is not up to date. - Social history:: Smoking status: Patient denies any tobacco usage or history of. - Family history:: not pertinent. Screenin:25 Abuse screen: Denies threats or abuse. Nutritional screening: No deficits noted. tw2 Tuberculosis screening: No symptoms or risk factors identified. Fall Risk None identified. Assessment: 16:56 General: Appears in no apparent distress. Behavior is calm, cooperative, appropriate tw2 for age. Pain: Complains of pain in dorsal aspect of distal phalanx of left little finger and dorsal aspect of middle phalanx of left little finger. Neuro: Level of Consciousness is awake, alert, obeys commands, Oriented to person, place, time, situation. Cardiovascular: Heart tones S1 S2 Patient's skin is warm and dry. Respiratory: Airway is patent Respiratory effort is even, unlabored, Respiratory pattern is regular, symmetrical, Breath sounds are clear bilaterally. GI: Abdomen is flat, Bowel sounds present X 4 quads. : No signs and/or symptoms were reported regarding the genitourinary system. EENT: No signs and/or symptoms were reported regarding the EENT system. Derm: Skin is intact, is healthy with good turgor, Skin is normal. Derm: Reports increased pain and swelling to LEFT 5th digit. Musculoskeletal: Range of motion: intact in all extremities. 17:03 Reassessment: provider at bedside at this time. tw2 17:32 Reassessment: Patient appears in no apparent distress at this time. No changes from tw2 previously documented assessment. Patient and/or family updated on plan of care and expected duration. Pain level reassessed. Patient is alert, oriented x 3, equal unlabored respirations, skin warm/dry/pink. 18:37 Reassessment: Patient appears in no apparent distress at this time. No changes from tw2 previously documented assessment. Patient and/or family updated on plan of care and expected duration. Pain level reassessed. Patient is alert, oriented x 3, equal unlabored respirations, skin warm/dry/pink. Vital Signs: 16:08 Temp 98; Weight 108.41 kg; Height 6 ft. 3 in. (190.50 cm); Pain 8/10; sv 16:25 BP 168 / 105; Pulse 89; Resp 17; Pulse Ox 99% on R/A; tw2 17:30 BP 177 / 106; Pulse 104; Resp 17; Pulse Ox 97% on R/A; tw2 18:00 Pain 5/10; tw2 18:37 BP 157 / 102; Pulse 97; Resp 17; Pulse Ox 99% on R/A; tw2 16:08 Body Mass Index 29.87 (108.41 kg, 190.50 cm) sv ED Course: 15:45 Patient arrived in ED. as 15:49 Brandon Masterson MD is Attending Physician. deejay 15:50 Bed in low position. Call light in reach. Pulse ox on. NIBP on. tw2 16:09 Triage completed. sv 16:10 Arm band placed on. sv 16:17 Inserted saline lock: 20 gauge in right antecubital area, using aseptic technique. tw2 Blood collected. 16:23 Yara Barahona, RADHIKA is Primary Nurse. tw2 16:55 Hand Left 3 View XRAY In Process Unspecified. EDMS 18:20 Assist provider with I \T\ D: of an abscess on left Set up I\T\D tray. Performed by Brandon Masterson MD Culture sent to lab. Wound packed. iodoform gauze, Dressing with Neosporin and 4X4s, coban Patient tolerated well. Dressings: non-adherent dressing x 1 left hand and dorsal aspect of middle phalanx of left little finger and dorsal aspect of distal phalanx of left little finger 4X4s neosporin, pt tolerated well, cms checked. 18:25 Kenney Jordan MD is Referral Physician. 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 Exp: 12/03/2021. Lot #: [id number]. } Route: IM; Site: right deltoid; 16:40 Follow up: Response: No adverse reaction tw2 16:29 Drug: Clindamycin 900 mg Route: IVPB; Infused Over: 30 mins; Site: right antecubital; tw2 16:54 Follow up: Response: No adverse reaction; IV Status: Completed infusion; IV Intake: [id number] 16:40 Drug: Colcrys 1.2 mg Route: PO; tw2 17:12 Follow up: Response: No adverse reaction tw2 17:09 Drug: NS 0.9% 1000 ml Route: IV; Rate: 1 bolus; Site: right antecubital; tw2 18:26 Follow up: Response: No adverse reaction; IV Status: Completed infusion; IV Intake: tw2 1000ml 17:09 Drug: Zofran (Ondansetron) 4 mg Route: IVP; Site: right antecubital; tw2 18:01 Follow up: Response: No adverse reaction tw2 17:11 Drug: morphine 4 mg {Note: RASS 0.} Route: IVP; Site: right antecubital; tw2 18:00 Follow up: Pain 5/10 Adult; Response: No adverse reaction; Pain is decreased; RASS: tw2 Alert and Calm (0) 17:45 Drug: Colcrys 0.6 mg Route: PO; tw2 18:00 Follow up: Response: No adverse reaction tw2 18:00 Drug: Lidocaine (1 %) 5 ml Volume: 5 ml; Route: Infiltration; tw2 18:00 Drug: Bupivacaine (0.5 %) 5 ml {Note: by Dr. Masterson.} Volume: 10 ml; Route: tw2 Infiltration; 18:20 Drug: Ancef 1 grams Route: IVPB; Site: right antecubital; tw2 18:27 Follow up: Response: No adverse reaction; IV Status: Completed infusion; IV Intake: [id number] 18:20 Drug: Neosporin Ointment 1 application Route: Topical; Site: affected area; tw2 Intake: 16:54 IV: 50ml; Total: 50ml. tw2 18:26 IV: 1000ml; Total: 1050ml. tw2 18:27 IV: 10ml; Total: 1060ml. tw2 Outcome: 18:27 Discharge ordered by . deejay 18:37 Discharged to home ambulatory. 18:37 Condition: stable 18:37 Discharge instructions given to patient, Instructed on discharge instructions, follow up and referral plans. no drinking with medication, no driving heavy equipment, medication usage, wound care, Demonstrated understanding of instructions, follow-up care, medications, wound care, Prescriptions given X 4. 18:38 Patient left the ED. tw2 Addendum: 08/06/2020 09:26 Addendum: Culture Results: Positive wound culture. Bacteria is resistant to, has s v intermediate sensitivity, or is not tested against prescribed antibiotics. Report given to HARMAN for further evaluation and then to county director for follow up with patient. Prescription called-in to pharmacy of choice. [facility]. Signatures: Dispatcher [employer] Gloria Cain, Brandon King RN, MD MD cha Martinez, Amelia as Wise, Tara, RN RN tw2
--- NOTE | 2020-08-02 18:28 | EDPHYS ---
Physician Documentation [facility] Name: Natan Paulino Sr Age: 60 yrs Sex: Male : 1960 Arrival Date: 08/02/2020 Time: 15:45 Bed 2 Private MD: CATALINO Physician Brandon Masterson HPI: 08/02 17:16 This 60 yrs old Black Male presents to ER via Ambulatory with complaints of Insect deejay Bite, Finger Swelling. 17:16 The patient or guardian reports decreased range of motion, pain, swelling, tenderness. deejay The complaints affect the DIP of left little finger and PIP of left little finger. Context: The problem was sustained at an unknown location. Onset: The symptoms/episode began/occurred 3 day(s) ago. Modifying factors: The symptoms are alleviated by elevation, holding still, the symptoms are aggravated by movement, dependent position. Associated signs and symptoms:. Severity of symptoms: At their worst the symptoms were moderate, in the emergency department the symptoms are unchanged. The patient has experienced similar episodes in the past, multiple times. Historical: - Allergies: 16:10 PENICILLINS; sv - PMHx: 16:10 CHF; Gout; Hypertension; osteoarthritis; Pancreatitis; Rheumatoid Arthritis; TIA; sv - PSHx: 16:10 Stent Placement; sv - Immunization history:: Adult Immunizations up to date, Flu vaccine is not up to date. - Social history:: Smoking status: Patient denies any tobacco usage or history of. - Family history:: not pertinent. ROS: 17:16 Constitutional: Negative for fever, chills, and weight loss, Eyes: Negative for injury, deejay pain, redness, and discharge, ENT: Negative for injury, pain, and discharge, Neck: Negative for injury, pain, and swelling, Cardiovascular: Negative for chest pain, palpitations, and edema, Respiratory: Negative for shortness of breath, cough, wheezing, and pleuritic chest pain, Abdomen/GI: Negative for abdominal pain, nausea, vomiting, diarrhea, and constipation, Back: Negative for injury and pain, : Negative for injury, bleeding, discharge, and swelling, Skin: Negative for injury, rash, and discoloration, Neuro: Negative for headache, weakness, numbness, tingling, and seizure, Psych: Negative for depression, anxiety, suicide ideation, homicidal ideation, and hallucinations, Allergy/Immunology: Negative for hives, rash, and allergies, Endocrine: Negative for neck swelling, polydipsia, polyuria, polyphagia, and marked weight changes, Hematologic/Lymphatic: Negative for swollen nodes, abnormal bleeding, and unusual bruising. 17:16 MS/extremity: Positive for decreased range of motion, pain, swelling, tenderness, of the dorsal aspect of distal phalanx of left little finger and dorsal aspect of middle phalanx of left little finger. Exam: 17:16 Constitutional: This is a well developed, well nourished patient who is awake, alert, deejay and in no acute distress. Head/Face: Normocephalic, atraumatic. Eyes: Pupils equal round and reactive to light, extra-ocular motions intact. Lids and lashes normal. Conjunctiva and sclera are non-icteric and not injected. Cornea within normal limits. Periorbital areas with no swelling, redness, or edema. ENT: Nares patent. No nasal discharge, no septal abnormalities noted. Tympanic membranes are normal and external auditory canals are clear. Oropharynx with no redness, swelling, or masses, exudates, or evidence of obstruction, uvula midline. Mucous membranes moist. Neck: Trachea midline, no thyromegaly or masses palpated, and no cervical lymphadenopathy. Supple, full range of motion without nuchal rigidity, or vertebral point tenderness. No Meningismus. Chest/axilla: Normal chest wall appearance and motion. Nontender with no deformity. No lesions are appreciated. Cardiovascular: Regular rate and rhythm with a normal S1 and S2. No gallops, murmurs, or rubs. Normal PMI, no JVD. No pulse deficits. Respiratory: Lungs have equal breath sounds bilaterally, clear to auscultation and percussion. No rales, rhonchi or wheezes noted. No increased work of breathing, no retractions or nasal flaring. Abdomen/GI: Soft, non-tender, with normal bowel sounds. No distension or tympany. No guarding or rebound. No evidence of tenderness throughout. Back: No spinal tenderness. No costovertebral tenderness. Full range of motion. Male : Normal genitalia with no discharge or lesions. Skin: Warm, dry with normal turgor. Normal color with no rashes, no lesions, and no evidence of cellulitis. Neuro: Awake and alert, GCS 15, oriented to person, place, time, and situation. Cranial nerves II-XII grossly intact. Motor strength 5/5 in all extremities. Sensory grossly intact. Cerebellar exam normal. Normal gait. Psych: Awake, alert, with orientation to person, place and time. Behavior, mood, and affect are within normal limits. 17:16 Musculoskeletal/extremity: Extremities: decreased ROM, pain, swelling, tenderness, ROM: limited active range of motion due to pain, limited passive range of motion due to pain, Circulation is intact in all extremities. Sensation intact. Compartment Syndrome exam of affected extremity: is normal. Vital Signs: 16:08 Temp 98; Weight 108.41 kg; Height 6 ft. 3 in. (190.50 cm); Pain 8/10; sv 16:25 BP 168 / 105; Pulse 89; Resp 17; Pulse Ox 99% on R/A; tw2 17:30 BP 177 / 106; Pulse 104; Resp 17; Pulse Ox 97% on R/A; tw2 18:00 Pain 5/10; tw2 18:37 BP 157 / 102; Pulse 97; Resp 17; Pulse Ox 99% on R/A; tw2 16:08 Body Mass Index 29.87 (108.41 kg, 190.50 cm) sv Procedures: 18:22 I \T\ D: Incision and drainage was performed for an abscess of the left DIP of left deejay little finger Prepped with Betadine, Anesthetized with 5 ml's 1% Lidocaine. marcaine 0.5 % 5 cc, digit block. I \T\ D: Incised with #11 blade. Drained moderate amount purulent fluid. tophi, gout debris. I \T\ D: Packed with iodoform gauze, Dressing: non-Adherent dressing, the patient tolerated the procedure well. Splinting: Splint applied to DIP of left little finger. MDM: 15:55 Patient medically screened. deejay 17:19 Differential diagnosis: open fracture, closed fracture, contusion, abrasion, deejay tendonitis. Data reviewed: vital signs, nurses notes, lab test result(s), radiologic studies, plain films. Data interpreted: gerontological nurse practitioner: rate is 89 beats/min, rhythm is regular, Pulse oximetry: on room air is 99 %. Test interpretation: by ED physician or midlevel provider: plain radiologic studies. Counseling: I had a detailed discussion with the patient and/or guardian regarding: the historical points, exam findings, and any diagnostic results supporting the discharge/admit diagnosis, lab results, radiology results. Physician consultation: dw and shared clinical photos and labs with dr nato mason. 08/02 15:59 Order name: CBC with Diff [facility] 08/02 15:59 Order name: Comprehensive Metabolic Panel; Complete Time: 17:02 [facility] 08/02 15:59 Order name: Hand Left 3 View XRAY [facility] 08/02 16:23 Order name: Uric Acid; Complete Time: 17:02 [facility] 08/02 18:09 Order name: Wound Culture ph 08/02 15:59 Order name: Dressing - Wound; Complete Time: 18:37 [facility] 08/02 15:59 Order name: Gloves, Sterile; Complete Time: 16:24 [facility] 08/02 15:59 Order name: Setup Suture Tray; Complete Time: 16:25 [facility] Administered Medications: 16:18 CANCELLED (Duplicate Order): Unasyn 3 grams IVPB once over 30 mins; (mix in 100 mL NS) [facility] 16:24 Drug: Tetanus-Diphtheria Toxoid Adult 0.5 ml {School Nurse: [email or web address]. Exp: tw12/03/2021. Lot #: [id number]. } Route: IM; Site: right deltoid; 16:40 Follow up: Response: No adverse reaction tw2 16:29 Drug: Clindamycin 900 mg Route: IVPB; Infused Over: 30 mins; Site: right antecubital; tw2 16:54 Follow up: Response: No adverse reaction; IV Status: Completed infusion; IV Intake: [id number] 16:40 Drug: Colcrys 1.2 mg Route: PO; tw2 17:12 Follow up: Response: No adverse reaction tw2 17:09 Drug: NS 0.9% 1000 ml Route: IV; Rate: 1 bolus; Site: right antecubital; tw2 18:26 Follow up: Response: No adverse reaction; IV Status: Completed infusion; IV Intake: tw2 1000ml 17:09 Drug: Zofran (Ondansetron) 4 mg Route: IVP; Site: right antecubital; tw2 18:01 Follow up: Response: No adverse reaction tw2 17:11 Drug: morphine 4 mg {Note: RASS 0.} Route: IVP; Site: right antecubital; tw2 18:00 Follow up: Pain 5/10 Adult; Response: No adverse reaction; Pain is decreased; RASS: tw2 Alert and Calm (0) 17:45 Drug: Colcrys 0.6 mg Route: PO; tw2 18:00 Follow up: Response: No adverse reaction tw2 18:00 Drug: Lidocaine (1 %) 5 ml Volume: 5 ml; Route: Infiltration; tw2 18:00 Drug: Bupivacaine (0.5 %) 5 ml {Note: by Dr. Masterson.} Volume: 10 ml; Route: tw2 Infiltration; 18:20 Drug: Ancef 1 grams Route: IVPB; Site: right antecubital; tw2 18:27 Follow up: Response: No adverse reaction; IV Status: Completed infusion; IV Intake: [id number] 18:20 Drug: Neosporin Ointment 1 application Route: Topical; Site: affected area; tw2 Disposition: 08/02/20 18:27 Discharged to Home. Impression: Gout due to renal impairment, left hand, Cutaneous abscess of left hand - 5th left digit, Cellulitis and acute lymphangitis of other parts of limb - left 5th finger. - Condition is Stable. - Discharge Instructions: Gout, Incision and Drainage, Skin Abscess, [id number], Cellulitis, Adult, [id number], Low-Purine Diet, Gout, [id number], Incision and Drainage, Care After. - Prescriptions for Clindamycin HCl 300 mg Oral Capsule - take 1 capsule by ORAL route every 6 hours for 7 days; 28 capsule. Colchicine- Probenecid 0.5-500 mg Oral Tablet - take 1 tablet by ORAL route every 1 hour up to 3 hours; 3 tablet. Keflex 500 mg Oral Capsule - take 1 capsule by ORAL route every 6 hours for 7 days; 28 capsule. Tylenol- Codeine #3 300-30 mg Oral Tablet - take 2 tablets by ORAL route every 6 hours As needed; 24 tablet. Bactroban 2 % Topical Ointment - Apply to affected area 1 application by TOPICAL route every 12 hours; 15 gram. - Medication Reconciliation Form, Thank You Letter, Antibiotic Education, Prescription Opioid Use form. - Follow up: Private Physician; When: 2 - 3 days; Reason: Recheck today's complaints, Continuance of care, Re-evaluation by your physician. Follow up: Kenney Jordan MD; When: 2 - 3 days; Reason: Recheck today's complaints, Re-evaluation by your physician. - Problem is new. - Symptoms have improved. Signatures: Dispatcher [employer] Gloria Cain, RN RN Brandon Blevins MD MD cha Wise, Tara, RN RN tw2 Corrections: (The following items were deleted from the chart) 16:18 15:59 Unasyn 3 grams IVPB once over 30 mins; (mix in 100 mL NS) ordered. deejay villalba 18:38 18:27 08/02/2020 18:27 Discharged to Home. Impression: Gout due to renal impairment, tw2 left hand; Cutaneous abscess of left hand - 5th left digit; Cellulitis and acute lymphangitis of other parts of limb - left 5th finger. Condition is Stable. Forms are Medication Reconciliation Form, Thank You Letter, Antibiotic Education, Prescription Opioid Use. Follow up: Private Physician; When: 2 - 3 days; Reason: Recheck today's complaints, Continuance of care, Re-evaluation by your physician. Follow up: Kenney Jordna; When: 2 - 3 days; Reason: Recheck today's complaints, Re-evaluation by your physician. Problem is new. Symptoms have improved. deejay
[2020-08-02] MEDS ORDERED: CEFAZOLIN/SWI 1gm 1 GM/10 ML SYR ONE (18:36)
[2020-08-02 19:56] LABS: Blood Morphology Comment NOT SEEN (NOT SEEN); Platelet Estimate ADEQ; White Blood Cell Scan OK (OK)
[2020-08-04 18:34] VITALS: TEMP 98
[2020-08-04 18:39] VITALS: BP 157/102; O2SAT 99
== END 2020-08-02 18:38 | disposition home or self-care (01) ==
LOC: ER 15:43
PROC: 0H9GXZZ Drainage of Left Hand Skin, External Approach (ICD-10-PCS; principal; 2020-08-02)
DX: L03.012 Cellulitis of left finger (principal); L03.022 Acute lymphangitis of left finger; L02.512 Cutaneous abscess of left hand; N28.9 Disorder of kidney and ureter, unspecified; M10.342 Gout due to renal impairment, left hand; I10 Essential (primary) hypertension; Z23 Encounter for immunization; Z88.0 Allergy status to penicillin
CPT/HCPCS: 96365; 96361; 87070; 85025; 36415; 87205; 84550; 87077; 87186; 80053; 73130; 90471; 90714; 96375; 99284; 26010; J0690; J7030; J2405

== ENCOUNTER 2020-09-22 22:54 | Inpatient (IN) | payer MEDICARE ==
[2020-09-22] MEDS ORDERED: ONDANSETRON 4 MG/2 ML VIAL ONE (23:41)
[2020-09-22] MEDS ORDERED: NA CHLORIDE 0.9% 1,000 ML ONE (23:41)
[2020-09-22 23:47] LABS: Absolute Lymphocytes (CBC) 1.5 K/uL (0.7-4.9); Hematocrit 47.6 % (39.6-49.0); Lymphocytes % 25.9 % (15.3-44.8); RBC Red Blood Cell Count 5.39 M/uL (4.33-5.43)
[2020-09-22] MEDS ORDERED: MEPERIDINE HCL 50 MG/ML ONE (23:52)
[2020-09-23 00:03] LABS: Albumin 3.1 g/dL (3.4-5.0); Bilirubin Direct 0.2 mg/dL (0-0.2); Bilirubin Total 0.7 mg/dL (0.2-1.0); Potassium 5.1 mmol/L (3.5-5.1); Protein, Total 8.1 g/dL (6.4-8.2)
--- NOTE | 2020-09-23 01:19 | EDPHYS ---
Physician Documentation [facility] Name: Natan Paulino Sr Age: 60 yrs Sex: Male : 1960 Arrival Date: 09/22/2020 Time: 22:56 Bed 15 Private MD: ED Physician Brandon Masterson HPI: 09/22 23:25 This 60 yrs old Black Male presents to ER via Ambulatory with complaints of Abdominal cp Swelling. 23:25 The patient presents with abdominal pain that is diffuse, abdominal distention that is cp diffuse. Onset: The symptoms/episode began/occurred 2 day(s) ago. The symptoms radiate to left back. Associated signs and symptoms: Pertinent positives: constipation, nausea, Pertinent negatives: blood in stools, chest pain, testicular pain, active vomiting. Severity of pain: in the emergency department the pain is a 8 / 10. The patient has experienced similar episodes in the past, multiple times, today's symptoms are similar, to when the patient was apparently diagnosed with pancreatitis. Historical: - Allergies: 22:59 PENICILLINS; sg - PMHx: 22:59 CHF; Gout; Hypertension; osteoarthritis; Pancreatitis; Rheumatoid Arthritis; TIA; sg - PSHx: 22:59 Stent Placement; sg - Immunization history:: Adult Immunizations up to date. - Social history:: Smoking status: Patient denies any tobacco usage or history of. ROS: 23:30 Constitutional: Negative for body aches, chills, fever, poor PO intake. cp 23:30 Eyes: Negative for injury, pain, redness, and discharge. cp 23:30 ENT: Negative for ear pain, sore throat, difficulty swallowing, difficulty handling secretions. 23:30 Cardiovascular: Negative for chest pain, edema, palpitations. 23:30 Respiratory: Positive for shortness of breath, Negative for cough, wheezing. 23:30 Abdomen/GI: Positive for abdominal pain, nausea, constipation, abdominal distension, Negative for diarrhea, active vomiting. 23:30 Back: Positive for pain at rest, pain with movement, of the left mid back. 23:30 Skin: Negative for rash. 23:30 Neuro: Negative for altered mental status, dizziness, headache, numbness, syncope, weakness. 23:30 All other systems are negative. Exam: 23:35 Constitutional: The patient appears in no acute distress, alert, awake, cp non-diaphoretic, non-toxic, well developed, well nourished, uncomfortable. 23:35 Head/Face: Normocephalic, atraumatic. cp 23:35 Eyes: Periorbital structures: appear normal, Conjunctiva: normal, no exudate, no injection, Sclera: no appreciated abnormality, Lids and lashes: appear normal, bilaterally. 23:35 ENT: External ear(s): are unremarkable, Nose: is normal, Posterior pharynx: Airway: no evidence of obstruction, patent. 23:35 Chest/axilla: Inspection: normal, Palpation: is normal, no crepitus, no tenderness. 23:35 Cardiovascular: Rate: normal, Rhythm: regular, Edema: is not appreciated, JVD: is not appreciated. 23:35 Respiratory: the patient does not display signs of respiratory distress, Respirations: normal, no use of accessory muscles, no retractions, labored breathing, is not present, Breath sounds: are clear throughout, no decreased breath sounds. 23:35 Abdomen/GI: Inspection: distension, that is moderate, Bowel sounds: active, all quadrants, Palpation: soft, in all quadrants, moderate abdominal tenderness, in all quadrants. 23:35 Back: pain, that is moderate, of the left mid back, ROM is painful, with flexion. 23:35 Skin: no rash present. 23:35 Neuro: Orientation: to person, place \\T\\ time. Mentation: is normal, Motor: moves all fours, strength is normal. 09/23 01:44 ECG was reviewed by the Attending Physician. cp Vital Signs: 09/22 23:37 BP 169 / 115; Pulse 83; Resp 19; Temp 98.9; Pulse Ox 98% on R/A; ea 09/23 01:51 Weight 106.59 kg; ea 02:30 BP 160 / 106; Pulse 66; Resp 18; Pulse Ox 97% ; ea 03:11 BP 140 / 106; Pulse 66; Resp 18; Pulse Ox 66% ; ea MDM: 09/22 23:10 Patient medically screened. cp 09/23 01:15 Data reviewed: vital signs, nurses notes, lab test result(s), EKG, radiologic studies, cp CT scan, plain films, I have discussed the patient's presentation/case with the attending Emergency Department Physician; and as a result, I will admit patient. 01:15 Counseling: I had a detailed discussion with the patient and/or guardian regarding: the cp historical points, exam findings, and any diagnostic results supporting the discharge/admit diagnosis, lab results, radiology results, the need for further work-up and treatment in the hospital. Response to treatment: the patient's symptoms have markedly improved after treatment, and as a result, I will admit patient. Physician consultation: Denver TOMLIN was contacted at 01:15, regarding admission, to the telemetry unit. patient's condition, and will see patient in ED, shortly. 09/22 23:19 Order name: Basic Metabolic Panel; Complete Time: 00:22 cp 09/23 00:44 Interpretation: Normal except: CL 111; BUN 19; CRE 2.14; GFR 38. cp 09/22 23:19 Order name: CBC with Diff; Complete Time: 00:22 cp 09/23 00:47 Interpretation: Normal except: RDW 15.4; MN% 17.0; EOSINOPHIL % 7.0. cp 09/22 23:19 Order name: Hepatic Function; Complete Time: 00:22 cp 09/22 23:19 Order name: Lipase; Complete Time: 00:22 cp 09/23 00:47 Interpretation: Abnormal: LIP 1039. cp 09/22 23:37 Order name: Lactate; Complete Time: 00:44 cp 09/22 23:37 Order name: Procalcitonin; Complete Time: 00:59 cp 09/23 00:50 Order name: Troponin I cp 09/23 00:50 Order name: COVID-19 : Document "Date of Symptom Onset" if Symptomatic. cp 09/23 00:51 Order name: Troponin I; Complete Time: 01:42 EDMS 09/23 00:51 Order name: CORONAVIRUS EDMS 09/23 01:55 Order name: Lipid Profile sg 09/23 01:56 Order name: Lipid Profile EDMS 09/23 03:03 Order name: SARS-COV-2 RT PCR EDMS 09/23 06:38 Order name: CBC with Automated Diff EDMD 09/22 23:19 Order name: XRAY Chest (1 view) cp 09/23 00:20 Order name: Abdomen EDMS 09/23 06:52 Order name: Comprehensive Metabolic Panel EDMD 09/23 06:52 Order name: Troponin I EDMD 09/23 06:52 Order name: T4 Free EDMD 09/23 06:52 Order name: Magnesium EDMD 09/23 06:52 Order name: Lipase EDMD 09/23 06:52 Order name: Thyroid Stimulating Hormone EDMD 09/23 13:48 Order name: Troponin I EDMD 09/22 23:19 Order name: IV Saline Lock; Complete Time: 23:41 cp 09/22 23:19 Order name: Labs collected and sent; Complete Time: 23:41 cp 09/23 00:50 Order name: EKG; Complete Time: 00:50 cp 09/23 00:50 Order name: EKG - Nurse/Tech; Complete Time: 01:47 cp EC:44 Rate is 76 beats/min. Rhythm is regular. MA interval is normal. QRS interval is cp prolonged at 150 msec. QT interval is normal. T waves are Inverted in leads I, II, III, aVL. Interpreted by me. Reviewed by me. Administered Medications: Discontinued: NS 0.9% 1000 ml IV at 1 bolus Per protocol; 1000 mL bolus 09/22 23:35 Drug: Zofran (Ondansetron) 4 mg Route: IVP; Site: right antecubital; ea 09/23 00:30 Follow up: Response: No adverse reaction ea 09/22 23:40 Drug: Meperidine 50 mg {Note: rass 1.} Route: IVP; Site: right antecubital; ea 09/23 00:30 Follow up: Response: No adverse reaction ea 09/22 23:41 Drug: NS 0.9% 1000 ml Route: IV; Rate: 1 bolus; Site: right antecubital; ea 09/23 01:47 Follow up: Response: No adverse reaction; IV Status: Completed infusion; IV Intake: ea 1000ml 01:42 Drug: NS 0.9% 1000 ml Route: IV; Rate: 1 bolus; Site: right antecubital; ea 02:11 Drug: Lovenox 1 mg/kg Route: Sub-Q; Site: right lower abdomen; ea 03:10 Follow up: Response: No adverse reaction ea 02:11 Drug: Demerol 25 mg Route: IVP; Site: right antecubital; ea 03:10 Follow up: Response: No adverse reaction ea Disposition: 09/23/20 01:18 Hospitalization ordered by Anton Hayes for Inpatient Admission. Preliminary diagnosis are Acute pancreatitis, Hypertensive heart disease, Non-ST elevation (NSTEMI) myocardial infarction. - Bed requested for Telemetry/MedSurg (Inpatient). - Status is Inpatient Admission. iw - Condition is Fair. - Problem is new. - Symptoms have improved. Addendum: 09/26/2020 06:10 Co-signature as Attending Physician, Brandon Masterson MD I agree with the assessment and c lira plan of care. Signatures: Dispatcher [employer] EDMD Kamilah Barnes RN RN dw Gay, Steven, RN RN sg Anderson, Corey, MD MD cha Williams, Irene, RN RN iw Denver Brown, ORACLE PROGRAMMER-C ORACLE PROGRAMMER-Cla1 Brandon Patel PA PA cp Sujatha Norton RN RN cg Tess Avitia RN RN ea Corrections: (The following items were deleted from the chart) 09/23 00:20 09/22 23:38 Abdomen Pelvis W Con+CT.RAD.BRZ ordered. [facility] 09/23 01:42 01:18 Hospitalization Ordered by Anton Hayes DO for Inpatient Admission. Preliminary cp diagnosis is Acute pancreatitis. Bed requested for Telemetry/MedSurg (Inpatient). Status is Inpatient Admission. Condition is Fair. Problem is new. Symptoms have improved. cp 01:49 01:42 09/23/2020 01:18 Hospitalization Ordered by Anton Hayes DO for Inpatient cp Admission. Preliminary diagnosis is Acute pancreatitis; Elevated Troponin; Hypertensive heart disease. Bed requested for Telemetry/MedSurg (Inpatient). Status is Inpatient Admission. Condition is Fair. Problem is new. Symptoms have improved. cp 02:05 01:49 09/23/2020 01:18 Hospitalization Ordered by Anton Hayes DO for Inpatient cg Admission. Preliminary diagnosis is Acute pancreatitis; Hypertensive heart disease; Non-ST elevation (NSTEMI) myocardial infarction. Bed requested for Telemetry/MedSurg (Inpatient). Status is Inpatient Admission. Condition is Fair. Problem is new. Symptoms have improved. cp 12:48 02:05 09/23/2020 01:18 Hospitalization Ordered by Anton Hayes DO for Inpatient dw Admission. Preliminary diagnosis is Acute pancreatitis; Hypertensive heart disease; Non-ST elevation (NSTEMI) myocardial infarction. Bed requested for [facility] ER HOLD. Status is Inpatient Admission. Condition is Fair. Problem is new. Symptoms have improved. cg 13:58 12:48 09/23/2020 01:18 Hospitalization Ordered by Anton Hayes DO for Inpatient iw Admission. Preliminary diagnosis is Acute pancreatitis; Hypertensive heart disease; Non-ST elevation (NSTEMI) myocardial infarction. Bed requested for Telemetry/MedSurg (Inpatient). Status is Inpatient Admission. Condition is Fair. Problem is new. Symptoms have improved. dw
--- NOTE | 2020-09-23 01:19 | ER ---
Nurse's Notes [facility] Name: Natan Paulino Sr Age: 60 yrs Sex: Male : 1960 Arrival Date: 09/22/2020 Time: 22:56 Bed 15 Private MD: Diagnosis: Acute pancreatitis;Hypertensive heart disease;Non-ST elevation (NSTEMI) myocardial infarction Presentation: 09/22 23:00 Acuity: NINO 3 sg 23:06 Chief complaint: patient complaining of abdominal swelling with pain that began 1-2 sg days ago, pt reports having shortness of breath as well. Coronavirus screen: Client denies travel out of the [place] in the last 14 days. shortness of breath, Client presents with at least one sign or symptom that may indicate coronavirus-19. Standard/surgical mask placed on the client. Provider contacted for isolation considerations. Ebola Screen: Patient negative for fever greater than or equal to 101.5 degrees Fahrenheit, and additional compatible Ebola Virus Disease symptoms Patient denies exposure to infectious person. Patient denies travel to an Ebola-affected area in the 21 days before illness onset. No symptoms or risks identified at this time. Initial Sepsis Screen: Does the patient meet any 2 criteria? No. Patient's initial sepsis screen is negative. Does the patient have a suspected source of infection? No. Patient's initial sepsis screen is negative. Risk Assessment: Do you want to hurt yourself or someone else? Patient reports no desire to harm self or others. Onset of symptoms was September 22, 2020. Care prior to arrival: None. Transition of care: patient was not received from another setting of care. 23:06 Method Of Arrival: Ambulatory sg Historical: - Allergies: 22:59 PENICILLINS; sg - PMHx: 22:59 CHF; Gout; Hypertension; osteoarthritis; Pancreatitis; Rheumatoid Arthritis; TIA; sg - PSHx: 22:59 Stent Placement; sg - Immunization history:: Adult Immunizations up to date. - Social history:: Smoking status: Patient denies any tobacco usage or history of. Screenin:36 Abuse screen: Denies threats or abuse. Nutritional screening: No deficits noted. ea Tuberculosis screening: No symptoms or risk factors identified. Fall Risk IV access (20 points). Assessment: 23:37 General: Appears in no apparent distress. Behavior is appropriate for age. Pain: ea Complains of pain in abdomen. Neuro: Level of Consciousness is awake, alert, obeys commands, Oriented to person, place, time. Cardiovascular: Patient's skin is warm and dry. Respiratory: Airway is patent Respiratory effort is even, unlabored, Respiratory pattern is regular, symmetrical. GI: Bowel sounds Abd is soft X 4 quads. Derm: Skin is pink, warm \T\ dry. 09/23 00:30 Reassessment: Patient and/or family updated on plan of care and expected duration. Pain ea level reassessed. Patient is alert, oriented x 3, equal unlabored respirations, skin warm/dry/pink. 02:50 Reassessment: Patient and/or family updated on plan of care and expected duration. Pain ea level reassessed. Patient is alert, oriented x 3, equal unlabored respirations, skin warm/dry/pink. Vital Signs: 09/22 23:37 BP 169 / 115; Pulse 83; Resp 19; Temp 98.9; Pulse Ox 98% on R/A; ea 09/23 01:51 Weight 106.59 kg; ea 02:30 BP 160 / 106; Pulse 66; Resp 18; Pulse Ox 97% ; ea 03:11 BP 140 / 106; Pulse 66; Resp 18; Pulse Ox 66% ; ea ED Course: 09/22 22:56 Patient arrived in ED. cl3 23:00 Triage completed. sg 23:00 Brandon Patel PA is PHCP. cp 23:00 Brandon Masterson MD is Attending Physician. cp 23:00 Arm band placed on. sg 23:20 Tess Avitia, RN is Primary Nurse. ea 23:36 Patient has correct armband on for positive identification. Bed in low position. Call ea light in reach. Side rails up X2. Pulse ox on. NIBP on. 23:36 Inserted saline lock: 20 gauge in right antecubital area, using aseptic technique. ea Blood collected. 23:54 by me, sent to lab. Patient maintains SpO2 saturation greater than 95% on room air. jp3 23:55 Lactate Sent. jp3 23:57 XRAY Chest (1 view) In Process Unspecified. EDMS 09/23 00:52 Abdomen In Process Unspecified. EDMS 01:16 Anton Hayes DO is Hospitalizing Provider. cp 03:09 No provider procedures requiring assistance completed. Patient admitted, IV remains in ea place. Administered Medications: Discontinued: NS 0.9% 1000 ml IV at 1 bolus Per protocol; 1000 mL bolus 09/22 23:35 Drug: Zofran (Ondansetron) 4 mg Route: IVP; Site: right antecubital; ea 09/23 00:30 Follow up: Response: No adverse reaction ea 09/22 23:40 Drug: Meperidine 50 mg {Note: rass 1.} Route: IVP; Site: right antecubital; ea 09/23 00:30 Follow up: Response: No adverse reaction ea 09/22 23:41 Drug: NS 0.9% 1000 ml Route: IV; Rate: 1 bolus; Site: right antecubital; ea 09/23 01:47 Follow up: Response: No adverse reaction; IV Status: Completed infusion; IV Intake: ea 1000ml 01:42 Drug: NS 0.9% 1000 ml Route: IV; Rate: 1 bolus; Site: right antecubital; ea 02:11 Drug: Lovenox 1 mg/kg Route: Sub-Q; Site: right lower abdomen; ea 03:10 Follow up: Response: No adverse reaction ea 02:11 Drug: Demerol 25 mg Route: IVP; Site: right antecubital; ea 03:10 Follow up: Response: No adverse reaction ea Intake: 01:47 IV: 1000ml; Total: 1000ml. ea Outcome: 01:18 Decision to Hospitalize by Provider. cp 03:09 Admitted to ER Hold. Please see [facility] for further documentation. ea 03:09 Condition: stable 03:09 Instructed on the need for admit, Demonstrated understanding of instructions. 13:46 Admitted to Med/surg accompanied by tech, via stretcher, room 217, with chart, Report bp called to MIGUEL GARRIDO 13:58 Patient left the ED. iw Signatures: Dispatcher [employer] EDMS Alvin Bell RN RN sg Williams, Irene, RN RN iw Brandon Patel PA PA cp Antunez, Elena, RN RN ea Peltier, Brian, RN RN Valeriano Calloway jp3 Marco Louis cl3
[2020-09-23] MEDS ORDERED: NA CHLORIDE 0.9% 1,000 ML ONE (01:46)
[2020-09-23] MEDS ORDERED: ENOXAPARIN 100 MG/ML SYR SQ ONE (02:21)
[2020-09-23] MEDS ORDERED: MEPERIDINE HCL 25 MG/ML SYR ONE (02:21)
[2020-09-23] MEDS: NA CHLORIDE 0.9% 1,000 ML IV SCH ×3 (02:28→15:01)
[2020-09-23] MEDS ORDERED: ONDANSETRON 4 MG/2 ML VIAL IV PRN (02:28)
--- NOTE | 2020-09-23 03:06 | P.HP ---
Certification for Inpatient Patient admitted to: Inpatient With expected LOS: >2 Midnights Patient will require the following post-hospital care: None Practitioner: I am a practitioner with admitting privileges, knowledge of patient current condition, hospital course, and medical plan of care. Services: Services provided to patient in accordance with Admission requirements found in Title 42 Section 412.3 of the Code of Federal Regulations Patient History Date of Service: 09/23/20 Primary Care Provider: Gloria Key Reason for admission: Pancreatitis History of Present Illness: 60-year-old male with history of CHF, pancreatitis, hypertension, chronic kidney disease presents emergency department for abdominal pain. Patient with history of pancreatitis reports that on he drank approximately 5-6 gin beverages and began having abdominal pain. Patient presented to the emergency department for evaluation labs significant for elevated lipase 1039 troponin 0.39 creatinine 2.14 GFR 38, creatinine 19, baseline GFR is around 40. Patient with similar admission a few months ago also with elevated troponin. Patient with history of severe alcoholic cardiomyopathy with systolic dysfunction and ejection fraction around 25% in July 2019, patient was placed on entresto and during his last admission for pancreatitis/elevated troponin his repeat echocardiogram demonstrated EF of around 72% April 2020. Patient denies any shortness of breath, pedal edema, was taken off of his Lasix during his last admission. Lipid panel obtained while patient is in the ED, triglycerides 94. CT significant for mild to moderate pancreatitis pattern without pseudocyst or abscess. Allergies Penicillins Allergy (Verified 05/03/20 05:24) Hives/Rash Home Medications: Allopurinol 300 mg PO DAILY 01/22/20 Atorvastatin Calcium 40 mg PO BEDTIME 01/22/20 Gabapentin [Neurontin*] 100 mg PO TIDP PRN 01/22/20 Probenecid/Colchicine [Probenecid-Colchicine Tablet] 1 tab PO SEECOM 01/22/20 Sacubitril/Valsartan [Entresto 24 mg-26 mg Tablet] 1 tab PO DAILY 01/22/20 Hydralazine [Apresoline*] 10 mg PO BID 30 Days #60 tab 05/05/20 Metoprolol Tartrate 50 mg PO BID #60 tablet 05/05/20 - Past Medical/Surgical History Diabetic: No -: Hypertension -: Systolic congestive heart 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 - Family History Father -: Cancer, Liver disease Notes: asbestos. exposure Mother Notes: mom is healthy - Social History Smoking Status: Never smoker Alcohol use: Yes CD- Drugs: No Caffeine use: Yes Place of Residence: Home Review of Systems 10-point ROS is otherwise unremarkable Gastrointestinal: Nausea, Abdominal Pain Physical Examination - Physical Exam General: Alert, In no apparent distress HEENT: Atraumatic, PERRLA, Mucous membr. moist/pink Neck: Supple, 2+ carotid pulse no bruit, No LAD Respiratory: Clear to auscultation bilaterally, Normal air movement Cardiovascular: Regular rate/rhythm, Normal S1 S2 Gastrointestinal: Normal bowel sounds, No masses, No rebound, No guarding, Tenderness (Moderate epigastric tenderness) Musculoskeletal: No tenderness Integumentary: No rashes Neurological: Normal speech, Normal strength at 5/5 x4 extr, Normal tone, Normal affect - Studies Laboratory Data (last 24 hrs) 09/23/20 01:30: Triglycerides 94, Cholesterol 192, HDL Cholesterol 104 H, Cholesterol/HDL Ratio 1.85 09/22/20 23:30: Troponin I 0.39 H 09/22/20 23:30: WBC 5.90, Hgb 15.5, Hct 47.6, Plt Count 242 09/22/20 23:30: Sodium 143, Potassium 5.1, BUN 19 H, Creatinine 2.14 H, Glucose 100, Total Bilirubin 0.7, AST 51 H, ALT 34, Alkaline Phosphatase 88, Lipase 1039 H Assessment and Plan - Plan Assessment Acute alcoholic pancreatitis NSTEMI likely secondary to alcoholic cardiomyopathy Chronic systolic congestive heart failure CKD 3 Hypertension Plan Acute alcoholic pancreatitis: NPO, IV fluids, pain medications and nausea medications p.r.n.. Trend lipase level, recommend abstinence from alcohol. Monitor closely for signs of worsening condition. DVT prophylaxis heparin 5000 subcutaneous twice daily. NSTEMI likely secondary to alcoholic cardiomyopathy: Full-dose Lovenox, monitor on telemetry, trend troponins, cardiology consult. Patient with similar rise in troponin during last admission for acute pancreatitis which trended flat. Patient was seen by cardiology during previous admission, it was noted that he had clean coronaries during previous cath. Chronic systolic congestive heart failure: Patient on entresto, EF had improved to 70% during last admission. Cardiology consult in place. Does not appear overloaded, will continue fluids overnight. CKD 3: Continue with IV fluids, recheck chemistry with morning labs. Nephrology consult in place. Hypertension: Obtain and continue home medications, adjust as necessary. Discharge Plan: Home Plan to discharge in: 72 Hours - Advance Directives Does patient have a Living Will: No Does patient have a Durable POA for Healthcare: Yes - Code Status/Comfort Care Code Status Assessed: Yes (Full code) Time Spent Managing Pts Care (In Minutes): 55
[2020-09-23 05:40] VITALS: BMI 31.8
[2020-09-23] MEDS: HYDROMORPHONE HCL 1 MG/ML INJ IV PRN ×4 (05:50→20:43)
[2020-09-23] MEDS ORDERED: HYDROMORPHONE HCL 1 MG/ML INJ ONE ×2 (06:05→10:40)
[2020-09-23 06:34] LABS: Absolute Lymphocytes (CBC) 1.3 K/uL (0.7-4.9); Basophils % 0.8 % (0-1.3); Hematocrit 42.6 % (39.6-49.0); Lymphocytes % 27.9 % (15.3-44.8); MPV 9.5 fL (7.6-11.3); RBC Red Blood Cell Count 4.83 M/uL (4.33-5.43)
[2020-09-23 06:51] LABS: Albumin 2.7 g/dL (3.4-5.0); Bilirubin Total 0.8 mg/dL (0.2-1.0); Magnesium 1.7 mg/dL (1.8-2.4); Potassium 4.2 mmol/L (3.5-5.1); Protein, Total 7.3 g/dL (6.4-8.2); Thyroid Stimulating Hormone 0.943 uIU/mL (0.360-3.740); Troponin I 0.36 ng/mL (0.0-0.045)
--- NOTE | 2020-09-23 08:19 | RAD REPORT ---
EXAM DESCRIPTION: RAD - Chest Single View - 09/22/2020 11:58 pm CLINICAL HISTORY: ABDOMINAL DISTENTION, pain, shortness of breath, history of CHF COMPARISON: Portable March 2020 TECHNIQUE: AP portable chest image was obtained 09/22/2020 11:58 pm . FINDINGS: Lung volumes are low accentuating heart, vasculature and lung markings. No peripheral mass or consolidations seen. No failure or volume overload suspected. Heart and vasculature are normal. No measurable pleural effusion and no pneumothorax. No acute bony abnormality seen. No acute aortic findings suspected. IMPRESSION: Limited portable study without acute cardiopulmonary finding. No significant change from March 2020 is suspected.
[2020-09-23] MEDS ORDERED: MAGNESIUM SULFATE 1 gm IVPB 1 GM/100 ML BAG IV ONE ×2 (08:25→10:40)
[2020-09-23] MEDS ORDERED: INFLUENZA VACCINE (for 3y+) 0.5 ML DOSE IMVAC ONE ×2 (11:00→14:07)
[2020-09-23] MEDS ORDERED: HYDRALAZINE HCL 20 MG/ML VIAL IV PRN (11:19)
[2020-09-23] MEDS: METOPROLOL TARTRATE 5 MG/5 ML INJ IV SCH ×2 (11:20→20:45)
[2020-09-23] MEDS ORDERED: METOPROLOL TARTRATE 5 MG/5 ML INJ IV ONE (14:07)
--- NOTE | 2020-09-23 14:49 | P.PN ---
Subjective Date of Service: 09/23/20 Primary Care Provider: Gloria Key Chief Complaint: Pancreatitis Subjective: Other (Patient reports slight improvement. Still with epigastric pain. No significant nausea vomiting.) Physical Examination - Vital Signs Temperature: 98 F Blood Pressure: 154/101 Pulse: 85 Respirations: 21 Pulse Ox (%): 100 - Studies Laboratory Data (last 24 hrs) 09/23/20 01:30: Triglycerides 94, Cholesterol 192, HDL Cholesterol 104 H, Florinda sterol/HDL Ratio 1.85 09/22/20 23:30: Troponin I 0.39 H 09/22/20 23:30: WBC 5.90, Hgb 15.5, Hct 47.6, Plt Count 242 09/22/20 23:30: Sodium 143, Potassium 5.1, BUN 19 H, Creatinine 2.14 H, Glucose 100, Total Bilirubin 0.7, AST 51 H, ALT 34, Alkaline Phosphatase 88, Lipase 1039 H Assessment & Plan Discharge Plan: Home Plan to discharge in: Greater than 2 days Physician Review Additional Text: Physical exam: Patient alert, cooperative. No distress noted. Heart: Regular rate rhythm. Lungs: Clear GI: Abdomen soft. Slight distention noted. Pain to the epigastric region. Extremities: No edema to the lower extremity. Assessment Acute alcoholic pancreatitis Elevated troponin likely ischemic demand with history of alcoholic cardiomyopathy Chronic systolic congestive heart failure CKD 3 Hypertension Gout Hyperlipidemia Plan Acute alcoholic pancreatitis: Continue NPO status. Continue IV fluids. Will provide medication for pain. Encourage ambulation. Anticipate improvement over the next 48-72 hr. If without significant pain will trial with clears. Continue to monitor and assess. Elevated troponin likely ischemic demand with alcoholic cardiomyopathy: Spoke with cardiology. No intervention needed at this time. Will provide IV medication for blood pressure. Will monitor fluid balance. Recent ejection fraction around 70%. Once able to take good oral intake then will restart his medications. Cardiology plans for outpatient evaluation. Chronic systolic congestive heart failure: Will provide medication for blood pressure. Restart medications once able to take oral intake.. CKD 3: Continue IV fluids. Nephrology consulted. Hypertension: Will provide IV medication. Gout: Will restart allopurinol once able to take oral intake. Hyperlipidemia: Will restart cholesterol medication once able to take oral intake. Time Spent Managing Pts Care (In Minutes): 55
[2020-09-23] MEDS ORDERED: ENOXAPARIN 100 MG/ML SYR SQ SCH ×2 (15:00→21:00)
[2020-09-23] MEDS: ENOXAPARIN 40 MG/0.4 ML SQ SCH (17:14)
--- NOTE | 2020-09-23 17:42 | RAD REPORT ---
EXAM DESCRIPTION: CT - Abdomen Pelvis Wo Contrast - 09/23/2020 6:43 am CLINICAL HISTORY: Abdominal distention; Abd pain COMPARISON: 05/02/2020 TECHNIQUE: CT of the abdomen and pelvis without IV contrast. Evaluation of the solid organs and vasc ulature is suboptimal due to lack of IV contrast. FINDINGS: Lung Bases: Minimal dependent atelectasis. Bones: Mild multilevel degenerative endplate spondylosis and facet arthropathy throughout the spine. Disc height narrowing at L5/S1. Abdomen: Liver: The liver has normal size and density. Gallbladder: No calcified gallstones. Spleen, Pancreas, and Adrenal Glands: Mild peripancreatic fat stranding. No well-circumscribed maikol pancreatic fluid collection. Spleen and adrenal glands are unremarkable. Kidneys: The kidneys have normal size without evidence of hydronephrosis. No obstructing ureteral dakota culi. Vasculature: Aortoiliac atherosclerosis. IVC is unremarkable. Stomach: The stomach and duodenum have normal course. Other: No free intraperitoneal air. No free fluid or lymphadenopathy. Pelvis: Bladder: Urinary bladder is unremarkable. Bowel: No dilated loops of large or small bowel. Appendix: Normal appendix. Pelvis: Prostate is not enlarged. IMPRESSION: 1. Mild peripancreatic fat stranding. These findings could be seen with acute pancreatit is. This exam was performed according to our departmental dose-optimization program, which includes autom ated exposure control, adjustment of the mA and/or kV according to patient size and/or use of iterati ve reconstruction technique. Electronically signed by: Loki Contreras 09/23/2020 1:03 AM ACUTE CARE CLINICAL NURSE SPECIALIST Due to temporary technical issues with the PACS/Fluency reporting system, reports are being signed by the in house radiologists without review as a courtesy to insure prompt reporting. The interpreting radiologist is fully responsible for the content of the report.
[2020-09-24] MEDS: NA CHLORIDE 0.9% 1,000 ML IV SCH ×3 (01:12→13:56)
[2020-09-24] MEDS: HYDROMORPHONE HCL 1 MG/ML INJ IV PRN ×2 (01:14→08:47)
[2020-09-24] MEDS ORDERED: MAGNESIUM SULFATE 1 gm IVPB 1 GM/100 ML BAG IV ONE (05:08)
[2020-09-24 06:15] LABS: Absolute Lymphocytes (CBC) 0.5 K/uL (0.7-4.9); Basophils % 0.7 % (0-1.3); Hematocrit 41.7 % (39.6-49.0); MPV 9.8 fL (7.6-11.3); RBC Red Blood Cell Count 4.69 M/uL (4.33-5.43)
[2020-09-24 06:21] LABS: Albumin 2.8 g/dL (3.4-5.0); Bilirubin Total 0.9 mg/dL (0.2-1.0); Magnesium 2.1 mg/dL (1.8-2.4); Potassium 4.9 mmol/L (3.5-5.1); Protein, Total 7.2 g/dL (6.4-8.2)
[2020-09-24] MEDS ORDERED: METHYLPREDNISOLONE 40 MG INJ IV ONE ×2 (06:57→14:25)
[2020-09-24] MEDS ORDERED: GABAPENTIN 100 MG CAP PO PRN (06:58)
[2020-09-24] MEDS ORDERED: COLCHICINE PO SCH (07:00)
[2020-09-24] MEDS ORDERED: PROBENECID PO SCH (07:00)
[2020-09-24] MEDS: SACUBITRIL/VALSARTAN 24/26 MG TAB PO SCH (08:45)
[2020-09-24] MEDS: FOLIC ACID 1 MG TABLET PO SCH (08:46)
[2020-09-24] MEDS: allopurinoL 300 MG TAB PO SCH (08:46)
[2020-09-24] MEDS: THIAMINE HCL 100 MG TABLET PO SCH (08:46)
[2020-09-24] MEDS ORDERED: FOLIC ACID 5 MG/ML VIAL IVP SCH (09:00)
[2020-09-24] MEDS ORDERED: THIAMINE 200 MG/2 ML INJ IVP SCH (09:00)
[2020-09-24] MEDS ORDERED: HYDRALAZINE HCL 10 MG TABLET PO SCH (09:00)
[2020-09-24] MEDS ORDERED: FOLIC ACID 1 MG in NA CHLORIDE 0.9% 50 ML IV SCH (09:00)
[2020-09-24] MEDS: METOPROLOL TAR 50 MG TAB PO SCH ×2 (09:03→20:52)
[2020-09-24 09:32] LABS: Urine Appearance CLEAR; Urine Blood NEGATIVE (NEG); Urine Color DK YELLOW; Urine Glucose NEGATIVE (NEG); Urine Protein 3+ (NEG); Urine Specific Gravity 1.015 (1.005-1.030)
[2020-09-24 09:57] LABS: Urine Bilirubin NEGATIVE (NEG); Urine Microscopic Reflex ORDER UMIC
[2020-09-24 10:37] LABS: Urine RBC NONE SEEN /HPF (NONE SEEN)
[2020-09-24 10:48] LABS: Urine Bacteria <20 /HPF (NONE SEEN); Urine Mucus LIGHT /HPF (NONE SEEN)
[2020-09-24] MEDS ORDERED: COLCHICINE 0.6 MG TAB PO PRN (14:23)
--- NOTE | 2020-09-24 14:31 | P.PN ---
Subjective Date of Service: 09/24/20 Primary Care Provider: Gloria Key NP Chief Complaint: Pancreatitis Subjective: Improving (Patient doing well. No significant nausea, vomiting. Pain improved.) Physical Examination - Vital Signs Temperature: 97.5 F Blood Pressure: 133/88 Pulse: 70 Respirations: 17 Pulse Ox (%): 98 Assessment & Plan Discharge Plan: Home Plan to discharge in: 24 Hours Physician Review Additional Text: Initial chief complaint: Physical exam: Patient alert, cooperative. Patient reports gout pain to the right knee. Heart: Regular rate rhythm Lungs: Clear to auscultation Abdomen: Soft, minimal pain to the epigastric region. No significant distention. Extremities: Swelling, pain to the right knee. No significant edema to the lower extremity below the knee. Assessment Acute alcoholic pancreatitis Elevated troponin likely ischemic demand with history of alcoholic cardiomyopathy Chronic systolic congestive heart failure CKD 3 Hypertension Acute Gout attack to the right knee with history of gout Hyperlipidemia Plan Acute alcoholic pancreatitis: Patient significantly improved. Less pain to the epigastric region. No significant nausea vomiting. Will decrease IV fluids. Will transition to clear liquids. Will advance to soft diet later for dinner a if tolerated. Patient with acute gout attack to the right knee. Will provide IV Solu-Medrol. Restart colchicine. Case discussed with cardiology. No cardiac intervention at this time. Restart medication for hypertension, CHF. Anticipate improvement over the next 24 hr. Likely discharge tomorrow if doing better. Elevated troponin likely ischemic demand with alcoholic cardiomyopathy: Spoke with cardiology. No intervention needed at this time. Restart home medication. Recent ejection fraction around 70%. Chronic systolic congestive heart failure: Restart blood pressure medication and medication for CHF. CKD 3: Will decrease IV fluids. Continue with nephrology recommendation.. Hypertension: Will transition to oral medication Gout: Will provide prednisone. Will provide colchicine as needed. Hyperlipidemia: Restart home medication Time Spent Managing Pts Care (In Minutes): 55
[2020-09-24] MEDS ORDERED: ENOXAPARIN 100 MG/ML SYR SQ SCH (15:00)
[2020-09-24] MEDS: ENOXAPARIN 40 MG/0.4 ML SQ SCH (16:09)
--- NOTE | 2020-09-24 19:39 | CON ---
Date of Consultation: 09/24/2020 Reason For Consult: Acute renal failure. History Of Present Illness: Mr. Paulino is a 60-year-old male with past medical history significant for history of alcoholism, congestive heart failure, pancreatitis, and hypertension, and CKD, presented to the ER with abdominal pain. The patient has history of chronic pancreatitis and he drank alcohol after which he developed abdominal pain. He was found to have pancreatitis with elevated lipase and creatinine of 2.14 and hence he was admitted to the hospital for further evaluation. He has been shahnaz ated with IV fluids and he is doing much better at this time. His main complaint is pain in his righ t knee, which is being diagnosed as gout flare-up and he is being given anti-inflammatories at this t sonny. Past Medical History: Significant for history of alcoholic cardiomyopathy with depressed EF, but the repeat EF is improved, history of pancreatitis, CHF, hypertension, and CKD. Social History: The patient has history of long-term alcohol abuse. No history of smoking or drug a buse reported. Family History: Noncontributory. Review of Systems: Positive for pain in his right knee. Denies any abdominal pain. Denies any chest pain. Denies shor tness of breath. All other review of systems are negative. Physical Examination: Vital signs: At this time are showing temperature of 97.5, pulse rate of 70, respiratory rate of 17, and blood pressure 133/88. General: He appears in no acute distress. HEENT: Shows atraumatic head. Lungs: Clear to auscultation. Abdomen: Soft and nontender. Extremities: Showed no evidence of edema. His right knee was swollen and tenderness to palpation on the lateral side. Laboratory Data: At this time are showing creatinine of 1.9, BUN of 18, sodium of 144 and potassium of 4.9, chloride of 115. Upon review of his previous labs, his creatinine was noted to be baseline o f around 1.9. Current Medications: Include allopurinol 300 mg a day, colchicine 0.6 mg b.i.d., atorvastatin, folic acid, hydralazine 10 mg b.i.d., Metoprolol 50 mg b.i.d., and he is also on Entresto 1 tablet daily 2 4 to 26 mg. He is also receiving normal saline at 50 cc an hour. Impression: 1.Chronic renal insufficiency, currently with overall stable renal function. 2.Acute gout attack, being given colchicine, may also benefit from a small course of prednisone also , which he has received a dose of Solu-Medrol. 3.Chronic congestive heart failure seems compensated. Continue Entresto. 4.Hypertension, currently stable. 5.Pancreatitis, improving. Plan: Overall the patient's renal function seems to be at baseline at this time. I agree with annie rowland colchicine and small course of steroids if need to. Continue with gentle hydration for 1 more day and monitor his labs closely and if renal function is overall stable tomorrow, he is okay to be disch arged from Nephrology standpoint. EDMUND/MODL Voice ID: [id number] Report ID: [id number]
[2020-09-24] MEDS: HYDRALAZINE HCL 10 MG TABLET PO SCH (20:52)
[2020-09-24] MEDS ORDERED: ATORVASTATIN 40 MG TAB PO SCH (21:00)
[2020-09-24 21:02] VITALS: O2SAT 98
[2020-09-25 05:58] LABS: Absolute Lymphocytes (CBC) 0.5 K/uL (0.7-4.9); Basophils % 0.1 % (0-1.3); Hematocrit 40.8 % (39.6-49.0); Lymphocytes % 6.3 % (15.3-44.8); MPV 9.6 fL (7.6-11.3); RBC Red Blood Cell Count 4.58 M/uL (4.33-5.43)
[2020-09-25 06:03] LABS: Albumin 2.5 g/dL (3.4-5.0); Bilirubin Total 0.7 mg/dL (0.2-1.0); Potassium 5.4 mmol/L (3.5-5.1); Protein, Total 6.9 g/dL (6.4-8.2)
[2020-09-25] MEDS: allopurinoL 300 MG TAB PO SCH ×2 (08:08→08:09)
[2020-09-25] MEDS: SACUBITRIL/VALSARTAN 24/26 MG TAB PO SCH (08:08)
[2020-09-25] MEDS: THIAMINE HCL 100 MG TABLET PO SCH (08:09)
[2020-09-25] MEDS: METOPROLOL TAR 50 MG TAB PO SCH (08:09)
[2020-09-25] MEDS: HYDRALAZINE HCL 10 MG TABLET PO SCH (08:09)
[2020-09-25] MEDS: FOLIC ACID 1 MG TABLET PO SCH (08:10)
--- NOTE | 2020-09-25 08:25 | P.DS ---
Admission Date: 09/23/20 Discharge Date: 09/25/20 Primary Care Provider: Gloria Key NP Disposition: ROUTINE DISCHARGE Discharge Condition: GOOD Reason for Admission: Pancreatitis Consultations: Cardiology-Dr. De Guzman Nephrology-Dr. Dowell Procedures: COVID: Negative CXR: FINDINGS: Lung volumes are low accentuating heart, vasculature and lung markings. No peripheral mass or consolidations seen. No failure or volume overload suspected. Heart and vasculature are normal. No measurable pleural effusion and no pneumothorax. No acute bony abnormality seen. No acute aortic findings suspected. IMPRESSION: Limited portable study without acute cardiopulmonary finding. No significant change from March [address] scan: COMPARISON: 05/02/2020 TECHNIQUE: CT of the abdomen and pelvis without IV contrast. Evaluation of the solid organs and vasculature is suboptimal due to lack of IV contrast. FINDINGS: Lung Bases: Minimal dependent atelectasis. Bones: Mild multilevel degenerative endplate spondylosis and facet arthropathy throughout the spine. Disc height narrowing at L5/S1. Abdomen: Liver: The liver has normal size and density. Gallbladder: No calcified gallstones. Spleen, Pancreas, and Adrenal Glands: Mild peripancreatic fat stranding. No well-circumscribed peripancreatic fluid collection. Spleen and adrenal glands are unremarkable. Kidneys: The kidneys have normal size without evidence of hydronephrosis. No obstructing ureteral calculi. Vasculature: Aortoiliac atherosclerosis. IVC is unremarkable. Stomach: The stomach and duodenum have normal course. Other: No free intraperitoneal air. No free fluid or lymphadenopathy. Pelvis: Bladder: Urinary bladder is unremarkable. Bowel: No dilated loops of large or small bowel. Appendix: Normal appendix. Pelvis: Prostate is not enlarged. IMPRESSION: 1. Mild peripancreatic fat stranding. These findings could be seen with acute pancreatitis. Medical Problem List: Acute alcoholic recurrent pancreatitis Elevated troponin likely ischemic demand with history of alcoholic cardiomyopathy Chronic systolic congestive heart failure CKD 3 Hypertension Acute Gout attack to the right knee with history of gout Hyperlipidemia Alcohol use Brief History of Present Illness: 60-year-old male with history of CHF, pancreatitis, hypertension, chronic kidney disease presents to the emergency department for abdominal pain. Patient with history of pancreatitis and reports that on he drank approximately 5-6 gin beverages and began having abdominal pain. Patient presented to the emergency department for evaluation labs significant for elevated lipase 1039 troponin 0.39 creatinine 2.14 GFR 38, creatinine 19, baseline GFR is around 40. Patient with similar admission a few months ago also with elevated troponin. Patient with history of severe alcoholic cardiomyopathy with systolic dysfunction and ejection fraction around 25% in July 2019, patient was placed on entresto and during his last admission for pancreatitis/elevated troponin his repeat echocardiogram demonstrated EF of around 72% April 2020. Patient denies any shortness of breath, pedal edema, was taken off of his Lasix during his last admission. Lipid panel obtained while patient is in the ED, triglycerides 94. CT significant for mild to moderate pancreatitis pattern without pseudocyst or abscess. Patient was admitted for further evaluation and treatment. Hospital Course: Patient presented with abdominal pain secondary to acute recurrent alcoholic pancreatitis. Patient was initially kept NPO with IV fluids. Pain has improved. Patient was then transition to oral food without significant abdominal pain, nausea vomiting. At discharge lipase has improved. Patient was seen by Cardiology to elevated troponin likely ischemic demand. No cardiac intervention was required. Patient also seen by Nephrology due to his chronic renal disease This has remained stable. At discharge patient has done well. Patient will be discharged home. Patient understands that he needs to quit alcohol entirely to prevent another episode of pancreatitis. Patient plans to quit. Education on alcoholic pancreatitis provided. Education on alcohol cessation also provided. At discharge patient may continue with thiamine 100 mg daily and folic acid 1 mg daily. As mentioned above patient had elevated troponin likely ischemic demand with history of alcoholic cardiomyopathy, hypertension, and chronic systolic congestive heart failure. Recent ejection fraction around 70%. Case was discussed with cardiology who also saw the patient. No intervention was required. At discharge patient will continue with his current medications- Entresto 24/26 mg 1 pill twice daily, hydralazine 10 mg 1 pill twice daily, and metoprolol 50 mg 1 pill twice daily. Recommend follow up with cardiology as directed. Patient with chronic renal disease stage III. This has remained stable. Patient seen by nephrology. Recommend follow up with nephrology in 2-4 weeks to follow up this hospitalization. No further nonsteroidal anti-inflammatories recommended. Future medications will need to be renally dose. Patient had an episode of acute gout attack to the right knee. Patient required IV steroids. Patient improved at discharge. At discharge patient may continue with prednisone 10 mg daily for the next 5 days. Patient will continue with his current medications of allopurinol 300 mg daily, gabapentin 100 mg 1 pill twice daily as needed for pain and colchicine/probenecid to be use as needed for future gout attack. Patient with hyperlipidemia. At discharge patient will continue with his current medication-Lipitor 40 mg daily. Vital Signs/Physical Exam: Temp Pulse Resp BP Pulse Ox 97.4 F 65 18 156/93 H 97 09/25/20 04:00 09/25/20 04:00 09/25/20 04:00 09/25/20 04:00 09/25/20 04:00 General: Alert, In no apparent distress, Oriented x3, Cooperative HEENT: Atraumatic Neck: Supple Respiratory: Clear to auscultation bilaterally, Normal air movement Cardiovascular: Normal pulses, Regular rate/rhythm Gastrointestinal: Normal bowel sounds, Soft and benign, Non-distended, No ascites, No tenderness, No masses, No rebound, No guarding Integumentary: Other (Less swelling to the right knee. Able to move joint appropriately. No significant warmth) Neurological: Normal speech, Normal strength at 5/5 x4 extr, Normal tone, Normal affect Laboratory Data at Discharge: WBC 8.40 K/uL (4.3-10.9) D 09/25/20 05:05 Hgb 13.3 g/dL (13.6-17.9) L 09/25/20 05:05 Hct 40.8 % (39.6-49.0) 09/25/20 05:05 Plt Count 216 K/uL (152-406) 09/25/20 05:05 Sodium 141 mmol/L (136-145) 09/25/20 05:05 Potassium 5.4 mmol/L (3.5-5.1) H 09/25/20 05:05 BUN 20 mg/dL (7-18) H 09/25/20 05:05 Creatinine 1.86 mg/dL (0.55-1.3) H 09/25/20 05:05 Glucose 137 mg/dL (74-106) H 09/25/20 05:05 Magnesium 2.0 mg/dL (1.8-2.4) 09/25/20 05:05 Total Bilirubin 0.7 mg/dL (0.2-1.0) 09/25/20 05:05 AST 27 U/L (15-37) 09/25/20 05:05 ALT 23 U/L (12-78) 09/25/20 05:05 Alkaline Phosphatase 65 U/L (45-117) 09/25/20 05:05 Troponin I 0.34 ng/mL (0.0-0.045) H 09/23/20 13:11 Triglycerides 94 mg/dL (<150) 09/23/20 01:30 Cholesterol 192 mg/dL (<200) 09/23/20 01:30 HDL Cholesterol 104 mg/dL (40-60) H 09/23/20 01:30 Cholesterol/HDL Ratio 1.85 09/23/20 01:30 Lipase 326 U/L (73-393) 09/25/20 05:05 Home Medications: Allopurinol 300 mg PO DAILY 01/22/20 Atorvastatin Calcium 40 mg PO BEDTIME 01/22/20 Gabapentin [Neurontin*] 100 mg PO TIDP PRN 01/22/20 Probenecid/Colchicine [Probenecid-Colchicine Tablet] 1 tab PO SEECOM 01/22/20 Sacubitril/Valsartan [Entresto 24 mg-26 mg Tablet] 1 tab PO DAILY 01/22/20 Hydralazine [Apresoline*] 10 mg PO BID 30 Days #60 tab 05/05/20 Metoprolol Tartrate 50 mg PO BID #60 tablet 05/05/20 Folic Acid 1 mg PO DAILY #30 tablet 09/25/20 Thiamine HCl [Vitamin B-1*] 100 mg PO DAILY #30 tablet 09/25/20 predniSONE [Deltasone*] 10 mg PO DAILY #5 tab 09/25/20 New Medications: predniSONE [Deltasone*] 10 mg PO DAILY #5 tab Folic Acid 1 mg PO DAILY #30 tablet Thiamine HCl [Vitamin B-1*] 100 mg PO DAILY #30 tablet Physician Discharge Instructions: Follow up with PCP in 1 week to follow up this hospitalization. Patient presented with abdominal pain secondary to acute recurrent alcoholic pancreatitis. Patient was initially kept NPO with IV fluids. Pain has improved. Patient was then transition to oral food without significant abdominal pain, nausea vomiting. At discharge lipase has improved. Patient was seen by Cardiology to elevated troponin likely ischemic demand. No cardiac intervention was required. Patient also seen by Nephrology due to his chronic renal disease This has remained stable. At discharge patient has done well. Patient will be discharged home. Patient understands that he needs to quit alcohol entirely to prevent another episode of pancreatitis. Patient plans to quit. Education on alcoholic pancreatitis provided. Education on alcohol cessation also provided. At discharge patient may continue with thiamine 100 mg daily and folic acid 1 mg daily. As mentioned above patient had elevated troponin likely ischemic demand with history of alcoholic cardiomyopathy, hypertension, and chronic systolic chester estive heart failure. Recent ejection fraction around 70%. Case was discussed with cardiology who also saw the patient. No intervention was required. At discharge patient will continue with his current medications-Entresto 24/26 mg 1 pill twice daily, hydralazine 10 mg 1 pill twice daily, and metoprolol 50 mg 1 pill twice daily. Recommend follow up with cardiology as directed. Patient with chronic renal disease stage III. This has remained stable. Patient seen by nephrology. Recommend follow up with nephrology in 2-4 weeks to follow up this hospitalization. No further nonsteroidal anti-inflammatories recommended. Future medications will need to be renally dose. Patient had an episode of acute gout attack to the right knee. Patient required IV steroids. Patient improved at discharge. At discharge patient may continue with prednisone 10 mg daily for the next 5 days. Patient will continue with his current medications of allopurinol 300 mg daily, gabapentin 100 mg 1 pill twice daily as needed for pain and colchicine/probenecid to be use as needed for future gout attack. Patient with hyperlipidemia. At discharge patient will continue with his current medication-Lipitor 40 mg daily. Diet: AHA Activity: Ad pelon Followup: NATHAN EVANS [Primary Care Provider] - Time spent managing pt's care (in minutes): 55
[2020-09-25 08:28] VITALS: BP 160/93; TEMP 97.5
== END 2020-09-25 09:46 | disposition home or self-care (01) | DRG 438 ==
LOC: ER 22:54 → ERHOLD 09-23 01:56 → 2ND 09-23 13:46
PROVIDERS: ADMIT Family Medicine; ATTEND Family Medicine
DX: K85.20 Alcohol induced acute pancreatitis without necrosis or infection (principal); I21.A1 Myocardial infarction type 2; I42.6 Alcoholic cardiomyopathy; I50.22 Chronic systolic (congestive) heart failure; I13.0 Hypertensive heart and chronic kidney disease with heart failure and stage 1 through stage 4 chronic kidney disease, or unspecified chronic kidney disease; N18.30 Chronic kidney disease, stage 3 unspecified; E78.5 Hyperlipidemia, unspecified; M10.9 Gout, unspecified; M19.90 Unspecified osteoarthritis, unspecified site; Z86.73 Personal history of transient ischemic attack (TIA), and cerebral infarction without residual deficits; Z95.5 Presence of coronary angioplasty implant and graft; Z79.899 Other long term (current) drug therapy; Z79.52 Long term (current) use of systemic steroids; Z88.0 Allergy status to penicillin; Z20.822 Contact with and (suspected) exposure to COVID-19; Z23 Encounter for immunization
CPT/HCPCS: 36415; 71045; 74176; 80048; 80053; 80061; 80076; 81003; 81015; 83605; 83690; 83735; 84145; 84439; 84443; 84484; 85025; 90471; 93005; 94010; 96361; 96372; 96374; 96375; 99285; J0360; J1170; J1650; J2175; J2405; J2920; J3475; J7030; Q2035; U0003

== ENCOUNTER 2021-01-16 13:20 | Inpatient (IN) | payer MEDICARE ==
--- NOTE | 2021-01-16 15:19 | RAD REPORT ---
EXAM DESCRIPTION: RAD - Chest Pa And Lat (2 Views) - 01/16/2021 2:48 pm CLINICAL HISTORY: SOB, abdominal pain COMPARISON: Portable September 22 TECHNIQUE: Frontal and lateral views of the chest were obtained. FINDINGS: The lungs are clear of mass or consolidation. Minimal lung parenchymal stranding left base matches comparison. Heart size is normal and central vasculature is within normal limits. No pleu ral effusion or pneumothorax seen. No acute bony finding noted. No aortic abnormality. IMPRESSION: No acute cardiopulmonary process. No significant change from comparison study.
[2021-01-16] MEDS ORDERED: ONDANSETRON 4 MG/2 ML VIAL ONE (16:40)
[2021-01-16] MEDS ORDERED: MORPHINE 4 MG/ML SYR ONE ×2 (16:40→18:27)
[2021-01-16] MEDS ORDERED: NA CHLORIDE 0.9% 500 ML ONE (16:40)
[2021-01-16 16:41] LABS: Absolute Lymphocytes (CBC) 1.2 K/uL (0.7-4.9); Basophils % 0.5 % (0-1.3); Hematocrit 44.8 % (39.6-49.0); Lymphocytes % 14.7 % (15.3-44.8); RBC Red Blood Cell Count 5.07 M/uL (4.33-5.43)
--- NOTE | 2021-01-16 16:50 | RAD REPORT ---
EXAM DESCRIPTION: US - Abdomen Exam Limited - 01/16/2021 4:35 pm CLINICAL HISTORY: EPIGASTRIC PAIN COMPARISON: Abdomen Pelvis Wo Contrast dated 09/23/2020 FINDINGS: Gallbladder size is normal. No gallstones or pericholecystic fluid. Gallbladder wall is up per normal. Common bile duct is normal with no common duct stone identified. Partially imaged liver shows no suspicious finding. IMPRESSION: No gallstones, sludge or other gallbladder intraluminal abnormality. Gallbladder wall is upper normal. No pericholecystic fluid. Collective findings are not yet convincin g for acute cholecystitis. No biliary tree dilatation.
[2021-01-16 17:02] LABS: Albumin 3.3 g/dL (3.4-5.0); Bilirubin Direct 0.2 mg/dL (0-0.2); Bilirubin Total 0.6 mg/dL (0.2-1.0); Potassium 4.6 mmol/L (3.5-5.1); Protein, Total 8.6 g/dL (6.4-8.2)
--- NOTE | 2021-01-16 17:13 | EDPHYS ---
Physician Documentation [facility] Name: Natan Paulino Sr Age: 60 yrs Sex: Male : 1960 Arrival Date: 01/16/2021 Time: 13:23 Bed 13 Private MD: ED Physician Eddy Jha HPI: 01/16 16:22 This 60 yrs old Black Male presents to ER via Ambulatory with complaints of Breathing rn Difficulty. 16:22 This 60 yrs old Black Male presents to ER via Ambulatory with complaints of abdominal rn pain. 16:22 The patient presents with abdominal pain in the epigastric area. Onset: The rn symptoms/episode began/occurred 2 day(s) ago. The symptoms do not radiate. Associated signs and symptoms: Pertinent positives: nausea, vomiting, Pertinent negatives: blood in stools, chest pain, constipation, diarrhea, dysuria, fever, shortness of breath. The symptoms are described as sharp. Modifying factors: The symptoms are alleviated by nothing, the symptoms are aggravated by pressure, touching the area, drinking ETOH. Severity of pain: At its worst the pain was moderate in the emergency department the pain is unchanged. The patient has experienced similar episodes in the past. Reports has ETOH binges, drank a lot this weekend, thinks maybe caused his pancreatitis to act up, no hematemesis, no fever, no diarrhea. + vomiting.. Historical: - Allergies: 13:29 PENICILLINS; ll1 - PMHx: 13:29 CHF; Gout; Hypertension; osteoarthritis; Pancreatitis; Rheumatoid Arthritis; TIA; ll1 - PSHx: 13:29 Stent Placement; L pinky amputation; ll1 - Immunization history:: Flu vaccine is up to date. - Social history:: Smoking status: Patient denies any tobacco usage or history of. - Family history:: not pertinent. - Hospitalizations: : No recent hospitalization is reported. ROS: 16:22 Constitutional: Negative for fever, chills, and weight loss, Eyes: Negative for injury, rn pain, redness, and discharge, Neck: Negative for injury, pain, and swelling, Cardiovascular: Negative for chest pain, palpitations, and edema, Respiratory: Negative for wheezing, and pleuritic chest pain, Abdomen/GI: Negative for diarrhea, and constipation Back: Negative for injury and pain, : Negative for injury, bleeding, discharge, and swelling, MS/Extremity: Negative for injury and deformity, Skin: Negative for injury, rash, and discoloration, Neuro: Negative for headache, weakness, numbness, tingling, and seizure Exam: 16:22 Constitutional: This is a well developed, well nourished patient who is awake, alert, rn and in no acute distress. Head/Face: Normocephalic, atraumatic. Eyes: Periorbital areas with no swelling, redness, or edema. ENT: dry MM Cardiovascular: Regular rate and rhythm. No pulse deficits. Respiratory: No increased work of breathing, no retractions or nasal flaring. Abdomen/GI: soft, mild epigastric tenderness, no rebound Skin: Warm, dry MS/ Extremity: Pulses equal, no cyanosis. Neuro: Awake and alert, GCS 15 Vital Signs: 13:29 BP 156 / 107; Pulse 88; Resp 18; Temp 97.5; Pulse Ox 97% on R/A; Weight 106.59 kg; ll1 Height 6 ft. 3 in. (190.50 cm); Pain 10/10; 16:14 BP 193 / 104; Pulse 76; Resp 18; Pulse Ox 100% on R/A; vg1 17:00 BP 193 / 106; Pulse 74; Resp 16; Pulse Ox 98% on R/A; vg1 17:55 BP 193 / 97; Pulse 73; Resp 16; Pulse Ox 100% ; vg1 18:00 BP 194 / 98; Pulse 78; Resp 16; Pulse Ox 99% on R/A; vg1 19:00 BP 173 / 101; Pulse 86; Resp 16; Pulse Ox 98% ; jm8 13:29 Body Mass Index 29.37 (106.59 kg, 190.50 cm) ll1 MDM: 16:01 Patient medically screened. rn 17:11 Differential diagnosis: cholecystitis, Cholelithiasis, gastritis, gastroesophageal rn reflux disease, non-specific abd pain, pancreatitis, Peptic Ulcer Disease. Data reviewed: vital signs, nurses notes, lab test result(s), radiologic studies, ultrasound, and as a result, I will admit patient. Counseling: I had a detailed discussion with the patient and/or guardian regarding: the historical points, exam findings, and any diagnostic results supporting the discharge/admit diagnosis, lab results, radiology results, the need for further work-up and treatment in the hospital. Response to treatment: the patient's symptoms have mildly improved after treatment, and as a result, I will admit patient. Admission orders: after a detailed discussion of the patient's condition and case, the admit orders are written by me. ED course: Pt with acute alcohol induced pancreatitis, will admit to hospitalist service for further care, LFTs WNL and u/s gallbladder without acute findings. . 01/16 16:11 Order name: Basic Metabolic Panel 01/16 16:11 Order name: CBC with Diff; Complete Time: 17:04 01/16 16:11 Order name: Hepatic Function; Complete Time: 17:04 01/16 16:11 Order name: Lipase; Complete Time: 17:04 01/16 16:12 Order name: Basic Metabolic Panel; Complete Time: 17:04 EDDE 01/16 13:49 Order name: Chest Pa And Lat (2 Views) XRAY; Complete Time: 16:04 01/16 16:11 Order name: US Abdomen Limited; Complete Time: 17:04 01/16 17:06 Order name: Abdomen ; Complete Time: 17:58 [facility] 01/16 19:12 Order name: SARS-COV-2 RT PCR [facility] 01/16 16:11 Order name: IV Saline Lock; Complete Time: 16:36 01/16 16:11 Order name: Labs collected and sent; Complete Time: 16:36 rn Administered Medications: 16:30 Drug: Zofran (Ondansetron) 4 mg Route: IVP; Site: left antecubital; vg1 17:55 Follow up: Response: No adverse reaction; Nausea is decreased vg1 16:30 Drug: NS 0.9% 500 ml Route: IV; Rate: bolus; Site: left antecubital; vg1 17:55 Follow up: IV Status: Completed infusion; IV Intake: 1000ml vg1 16:32 Drug: morphine 4 mg {Note: rass 0.} Route: IVP; Site: left antecubital; vg1 17:55 Follow up: Response: No adverse reaction; Pain is unchanged, physician notified vg1 18:20 Drug: morphine 4 mg {Note: rass 0.} Route: IVP; Site: left antecubital; vg1 21:15 Follow up: Response: No adverse reaction jm8 Disposition: 01/16/21 17:13 Hospitalization ordered by Abram Cerrato for Observation. Preliminary diagnosis is Alcohol induced acute pancreatitis. - Bed requested for Telemetry/MedSurg (observation). - Status is Observation. jm8 - Condition is Stable. - Problem is an acute exacerbation. - Symptoms have improved. Signatures: Dispatcher [employer] EDMS Eddy Jha MD MD rn Garcia, Cindy, RN RN cg Asha Norton RN RN vg1 Preston Louis RN RN ll1 Thomas Bailey RN RN jm8 Corrections: (The following items were deleted from the chart) 17:06 16:12 Abdomen Pelvis W Con+CT.RAD.BRZ ordered. EDMS EDMS 18:29 17:36 CORONAVIRUS+MR.LAB.BRZ ordered. EDMS EDMS 20:41 17:13 Hospitalization Ordered by Abram Cerrato MD for Observation. Preliminary cg diagnosis is Alcohol induced acute pancreatitis. Bed requested for Telemetry/MedSurg (observation). Status is Observation. Condition is Stable. Problem is an acute exacerbation. Symptoms have improved. rn 21:40 20:41 01/16/2021 17:13 Hospitalization Ordered by Abram Cerrato MD for Observation. jm8 Preliminary diagnosis is Alcohol induced acute pancreatitis. Bed requested for Telemetry/MedSurg (observation). Status is Observation. Condition is Stable. Problem is an acute exacerbation. Symptoms have improved. cg
--- NOTE | 2021-01-16 17:13 | ER ---
[facility] Name: Natan Paulino Sr Age: 60 yrs Sex: Male : 1960 Arrival Date: 01/16/2021 Time: 13:23 Bed 13 Private MD: Diagnosis: Alcohol induced acute pancreatitis Presentation: 01/16 13:29 Chief complaint: Patient states: SOB for 3 days, worse with exertion. LUQ abd pain with ll1 nausea also. No fever. Coronavirus screen: Client denies travel out of the [place] in the last 14 days. At this time, the client does not indicate any symptoms associated with coronavirus-19. Ebola Screen: Patient denies travel to an Ebola-affected area in the 21 days before illness onset. Initial Sepsis Screen: Does the patient meet any 2 criteria? No. Patient's initial sepsis screen is negative. Does the patient have a suspected source of infection? Yes: Acute abdominal pain Other: SOB. Risk Assessment: Do you want to hurt yourself or someone else? Patient reports no desire to harm self or others. Onset of symptoms was January 13, 2021. 13:29 Method Of Arrival: Ambulatory ll1 13:29 Acuity: NINO 3 ll1 Triage Assessment: 21:15 Respiratory: the patient has mild shortness of breath. jm8 Historical: - Allergies: 13:29 PENICILLINS; ll1 - PMHx: 13:29 CHF; Gout; Hypertension; osteoarthritis; Pancreatitis; Rheumatoid Arthritis; TIA; ll1 - PSHx: 13:29 Stent Placement; L pinky amputation; ll1 - Immunization history:: Flu vaccine is up to date. - Social history:: Smoking status: Patient denies any tobacco usage or history of. - Family history:: not pertinent. - Hospitalizations: : No recent hospitalization is reported. Screenin:14 Abuse screen: Denies threats or abuse. Nutritional screening: No deficits noted. vg1 Tuberculosis screening: No symptoms or risk factors identified. Fall Risk No fall in past 12 months (0 pts). No secondary diagnosis (0 pts). IV access (20 points). Ambulatory Aid- None/Bed Rest/Nurse Assist (0 pts). Gait- Normal/Bed Rest/Wheelchair (0 pts) Mental Status- Oriented to own ability (0 pts). Total Harrell Fall Scale indicates No Risk (0-24 pts). Assessment: 13:49 Reassessment: Received VO for CXR from Roldan HERRERA. sv 16:12 General: Appears in no apparent distress. uncomfortable, Behavior is calm, cooperative. vg1 Pain: Complains of pain in abdomen Pain currently is 10 out of 10 on a pain scale. Quality of pain is described as crampy, sharp, Pain began 1 day ago. Neuro: Level of Consciousness is awake, alert, obeys commands, Oriented to person, place, time, situation. Cardiovascular: Patient's skin is warm and dry. Respiratory: Airway is patent Respiratory effort is even, unlabored, Breath sounds are clear bilaterally. GI: Abdomen is round distended, Bowel sounds present X 4 quads. Abdomen is tender to palpation in epigastric area, right upper quadrant and left upper quadrant Reports constipation, nausea. : No signs and/or symptoms were reported regarding the genitourinary system. EENT: No signs and/or symptoms were reported regarding the EENT system. Derm: Skin is intact, is healthy with good turgor. Musculoskeletal: Circulation, motion, and sensation intact. 16:12 Reassessment: Pt stated drank about a pint of Gin Saturday and Saturday, 01/13 and 01/14. vg1 Pt stated has a hx of pancreatitis. 16:30 Reassessment: Ultrasound complete. sv 17:56 Reassessment: Patient appears in no apparent distress at this time. No changes from vg1 previously documented assessment. Patient and/or family updated on plan of care and expected duration. Pain level reassessed. Patient is alert, oriented x 3, equal unlabored respirations, skin warm/dry/pink. 18:08 Reassessment: Received VO from DR Jha to administer Morphine 4 mg IV x1. vg1 21:15 Cardiovascular: Rhythm is regular. jm8 Vital Signs: 13:29 BP 156 / 107; Pulse 88; Resp 18; Temp 97.5; Pulse Ox 97% on R/A; Weight 106.59 kg; ll1 Height 6 ft. 3 in. (190.50 cm); Pain 10/10; 16:14 BP 193 / 104; Pulse 76; Resp 18; Pulse Ox 100% on R/A; vg1 17:00 BP 193 / 106; Pulse 74; Resp 16; Pulse Ox 98% on R/A; vg1 17:55 BP 193 / 97; Pulse 73; Resp 16; Pulse Ox 100% ; vg1 18:00 BP 194 / 98; Pulse 78; Resp 16; Pulse Ox 99% on R/A; vg1 19:00 BP 173 / 101; Pulse 86; Resp 16; Pulse Ox 98% ; jm8 13:29 Body Mass Index 29.37 (106.59 kg, 190.50 cm) ll1 ED Course: 13:23 Patient arrived in ED. bp1 13:31 Triage completed. ll1 13:31 Arm band placed on. ll1 14:46 Chest Pa And Lat (2 Views) XRAY In Process Unspecified. EDMS 16:01 Eddy Jha MD is Attending Physician. rn 16:03 Asha Norton RN is Primary Nurse. vg1 16:14 Patient has correct armband on for positive identification. Bed in low position. Call [facility] light in reach. Side rails up X 1. 16:29 Initial lab(s) drawn, by ny, sent to lab. Inserted saline lock: 20 gauge in left 1 antecubital area, using aseptic technique. Blood collected. 16:35 US Abdomen Limited In Process Unspecified. EDMS 17:12 Abram Cerrato MD is Hospitalizing Provider. rn 17:29 Abdomen In Process Unspecified. EDMS 17:55 COVID swab sent to lab. vg1 21:22 Report given to Courtney GARRIDO. jm8 21:39 No provider procedures requiring assistance completed. Patient admitted, IV remains in [address] place. intact. Administered Medications: 16:30 Drug: Zofran (Ondansetron) 4 mg Route: IVP; Site: left antecubital; vg1 17:55 Follow up: Response: No adverse reaction; Nausea is decreased vg1 16:30 Drug: NS 0.9% 500 ml Route: IV; Rate: bolus; Site: left antecubital; vg1 17:55 Follow up: IV Status: Completed infusion; IV Intake: 1000ml vg1 16:32 Drug: morphine 4 mg {Note: rass 0.} Route: IVP; Site: left antecubital; vg1 17:55 Follow up: Response: No adverse reaction; Pain is unchanged, physician notified vg1 18:20 Drug: morphine 4 mg {Note: rass 0.} Route: IVP; Site: left antecubital; vg1 21:15 Follow up: Response: No adverse reaction greg Intake: 17:55 IV: 1000ml; Total: 1000ml. 1 Outcome: 17:13 Decision to Hospitalize by Provider. rn 21:39 Admitted to Med/surg accompanied by tech, via wheelchair, with chart, Report called to greg Valdez RN 21:39 Condition: good 21:39 Instructed on the need for admit. 21:40 Patient left the ED. greg Signatures: Dispatcher [employer] EDGloria Farr, RN RN Eddy Garduno MD MD rn Garcia, Victoria, RN RADHIKA vg1 Preston Louis RN RADHIKA 1 Calista Irene, Thomas, RN RN jm8
--- NOTE | 2021-01-16 17:57 | RAD REPORT ---
EXAM DESCRIPTION: CT - Abdomen Pelvis Wo Contrast - 01/16/2021 5:30 pm CLINICAL HISTORY: epigastric abd pain;Abd pain COMPARISON: Abdomen Pelvis Wo Contrast dated 09/23/2020; Abdomen Pelvis Wo Contrast dated 8 TECHNIQUE: Axial [address] imaging of the abdomen and pelvis was performed without IV contrast. No IV contrast was given because of allergy, abnormal renal function, patient refusal or physician re quest. No oral contrast administered. All CT scans are performed using dose optimization technique as appropriate and may include automated exposure control or mA/KV adjustment according to patient size. FINDINGS: No suspicious findings in the lung bases. The liver is prominent in size and shows diffuse fatty infiltration. No splenomegaly or focal splenic finding. Gallbladder and biliary tree show no suspicious findings. Thickening is present in the body of the pancreas. The tissue is isodense to the remainder of the pa ncreas. No clearly defined solid or cystic pancreatic mass. There is peripancreatic edematous/ inflam matory stranding slightly more prominent than seen in September. Acute pancreatitis is the most likely etiology. No abnormal calcifications seen. No hydronephrosis or suspicious renal mass. Both kidneys show lobulated contours that are not clearly different from 2018 imaging. The cyst is present in the midportion of the right kidney. No obstructi ng or nonobstructing calculi. No significant adrenal finding. Isodense renal masses and pyelonephriti s cannot be excluded in the absence of IV contrast. Urinary bladder is mostly contracted limiting ass essment. No prostate abnormality seen. No dilated bowel loops or bowel wall thickening. No appendicitis findings. No free air, free fluid or pneumatosis. No mass or bulky lymphadenopathy. Small fat only umbilical hernia has not changed. Mode rate-sized bilateral fat filled inguinal hernias also unchanged. No suspicious bony findings. IMPRESSION: Acute pancreatitis is evident without solid or cystic mass identifiable. No abscess or s urgically emergent finding. Fullness in the body of the pancreas is believed to be the affects of pancreatitis. The tissue is iso dense to the remainder of the pancreas. Diffuse fatty infiltration of a prominent size liver.
--- NOTE | 2021-01-16 20:02 | P.HP ---
Certification for Inpatient Patient admitted to: Inpatient With expected LOS: >2 Midnights Patient will require the following post-hospital care: None Practitioner: I am a practitioner with admitting privileges, knowledge of patient current condition, hospital course, and medical plan of care. Services: Services provided to patient in accordance with Admission requirements found in Title 42 Section 412.3 of the Code of Federal Regulations <Bryon Carlisle Akilah - Last Filed: 01/16/21 19:55> Patient History Date of Service: 01/16/21 Primary Care Provider: Shahid Reason for admission: alcoholic pancreatitis History of Present Illness: Mr. Paulino is a 60 yo M with CHF, HTN, CKD, h/o TIA, & gout here today with 1 day of 10/10 diffuse abdominal pain. He drank 1 pint of gin on Saturday and the pain began yesterday. He was last admitted to the hospital for alcoholic pancreatitis 4 months ago. His last drink was also at that time. He denies nausea, vomiting, night sweats, chills. Reports anorexia. BUN 26, Cr 1.99, GFR 41, AST 77, lipase 1817. CT abdomen consistent with pancreatitis. 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 - Family History Father -: Cancer, Liver disease Notes: asbestos. exposure Mother Notes: mom is healthy - Social History Smoking Status: Never smoker Alcohol use: Yes CD- Drugs: No Caffeine use: Yes Place of Residence: Home <Anna Carlislety Isbell - Last Filed: 01/16/21 19:55> Date of Service: 01/16/21 <Abram Cerrato - Last Filed: 01/18/21 11:08> Allergies Penicillins Allergy (Verified 05/03/20 05:24) Hives/Rash Home Medications: Amiodarone HCl [Cordarone*] 1 tab PO DAILY 01/18/21 Metoprolol Tartrate 1 tab PO BID 01/18/21 Review of Systems General: Unremarkable Eyes: Unremarkable ENT: Unremarkable Respiratory: Unremarkable Cardiovascular: Unremarkable Gastrointestinal: Abdominal Pain, As per HPI Genitourinary: Unremarkable Musculoskeletal: Unremarkable Integumentary: Unremarkable Neurological: Unremarkable Lymphatics: Unremarkable <Bryon Carlisle - Last Filed: 01/16/21 19:55> Physical Examination - Physical Exam General: Alert, In no apparent distress, Cooperative HEENT: Atraumatic, Normocephalic, PERRLA, Mucous membr. moist/pink, EOMI, Sclerae nonicteric Neck: Supple, 2+ carotid pulse no bruit, JVD not distended, No Thyromegaly, No LAD Respiratory: Clear to auscultation bilaterally, Normal air movement Cardiovascular: No edema, Normal pulses, Regular rate/rhythm, Normal S1 S2, No gallops, No rubs, No murmurs Capillary refill: <2 Seconds Gastrointestinal: Normal bowel sounds, Soft and benign, Non-distended, No ascites, No masses, No rebound, No guarding, Tenderness Musculoskeletal: No clubbing, No swelling, No contractures, No erythema, No tenderness, No warmth Integumentary: No rashes, No breakdown, No significant lesion, No tenderness/swelling, No erythema, No warmth, No cyanosis Neurological: Normal speech, Normal strength at 5/5 x4 extr, Normal tone, Sensation intact, Cranial nerves 3-12 intact, Normal affect Lymphatics: No axilla or inguinal lymphadenopathy - Studies Laboratory Data (last 24 hrs) 01/16/21 16:29: WBC 8.00, Hgb 15.3, Hct 44.8, Plt Count 263 01/16/21 16:29: Sodium 142, Potassium 4.6, BUN 26 H, Creatinine 1.99 H, Glucose 92, Total Bilirubin 0.6, AST 77 H, ALT 43, Alkaline Phosphatase 86, Lipase 1817 H <Bryon Carlisle - Last Filed: 01/16/21 19:55> Assessment and Plan - Problems (Diagnosis) (1) Acute alcoholic pancreatitis Current Visit: No Status: Acute Qualifiers: Acute pancreatitis complication: no infection or necrosis Qualified Code(s): K85.20 - Alcohol induced acute pancreatitis without necrosis or infection (2) Chronic kidney disease, stage 3 Current Visit: No Status: Chronic Qualifiers: Chronic kidney disease stage 3 subtype: stage 3b (GFR 30-44) Qualified Code(s): N18.32 - Chronic kidney disease, stage 3b (3) Chronic systolic heart failure Current Visit: No Status: Chronic (4) History of gout Current Visit: No Status: Chronic (5) Hypertensive urgency Onset Date: 10/31/16 Current Visit: No Status: Acute (6) Chronic alcoholism Current Visit: No Status: Chronic (7) HTN (hypertension) Onset Date: 11/01/16 Current Visit: No Status: Chronic Qualifiers: Hypertension type: essential hypertension - Plan NPO overnight, continue with fluids, pain management, and antiemetics as needed trend lipase IV hydralazine PRN to control BP, will reconcile and continue home medications kidney function at baseline, will continue to monitor O2 as needed financial services counselor on alcohol cessation DVT ppx Discharge Plan: Home Plan to discharge in: 24 Hours - Advance Directives Does patient have a Living Will: No Does patient have a Durable POA for Healthcare: Yes - Code Status/Comfort Care Code Status Assessed: Yes (full code ) Critical Care: No Time Spent Managing Pts Care (In Minutes): 70 <Bryon Carlisle - Last Filed: 01/16/21 19:55> Date of Service: 01/16/21 Agree with plan of care as mentioned above. Patient with pancreatitis secondary to alcohol use. Clinical symptoms are improving. Anticipate discharge over the next 48-72 hr. Continue NPO & IV fluids. <Abram Cerrato - Last Filed: 01/18/21 11:08>
[2021-01-16] MEDS: NA CHLORIDE 0.9% 1,000 ML IV SCH (21:46)
[2021-01-16] MEDS ORDERED: MORPHINE 4 MG/ML SYR IV PRN (21:46)
[2021-01-16] MEDS ORDERED: ONDANSETRON 4 MG/2 ML VIAL IV PRN (21:46)
[2021-01-16] MEDS ORDERED: ACETAMINOPHEN 500 MG TAB PO PRN (21:46)
[2021-01-16 21:47] VITALS: BMI 28.2
[2021-01-16] MEDS: HYDRALAZINE HCL 20 MG/ML VIAL IV PRN (22:19)
[2021-01-17] MEDS: HEPARIN 5000 UNIT/ML 1 ML VIAL SQ SCH ×3 (00:31→16:25)
[2021-01-17] MEDS: HYDROMORPHONE HCL 0.5 MG/0.5 ML INJ IV PRN ×5 (00:47→22:21)
[2021-01-17 01:47] LABS: Urine Appearance CLEAR (Clear); Urine Bilirubin NEGATIVE (Negative); Urine Blood NEGATIVE (Negative); Urine Color YELLOW (Yellow); Urine Glucose NEGATIVE (Negative); Urine Protein 3+ (Negative); Urine Specific Gravity 1.015 (1.005-1.030); Urine pH 5.5 (5.0-7.0)
[2021-01-17 02:40] LABS: Urine Microscopic Reflex ORDER UMIC
[2021-01-17 04:28] LABS: Absolute Lymphocytes (CBC) 0.8 K/uL (0.7-4.9); Basophils % 0.4 % (0-1.3); Hematocrit 41.3 % (39.6-49.0); Lymphocytes % 14.9 % (15.3-44.8); MPV 9.3 fL (7.6-11.3)
[2021-01-17 04:43] LABS: Urine Bacteria <20 /HPF (NONE SEEN); Urine RBC NONE SEEN /HPF (NONE SEEN); Urine Sperm PRESENT (NONE SEEN); Urine Urothelial Cells <5 /HPF (NONE SEEN)
[2021-01-17 04:46] LABS: Albumin 3.1 g/dL (3.4-5.0); Bilirubin Total 0.9 mg/dL (0.2-1.0); Magnesium 1.9 mg/dL (1.8-2.4); Phosphorus 2.9 mg/dL (2.5-4.9); Potassium 5.2 mmol/L (3.5-5.1); Protein, Total 7.6 g/dL (6.4-8.2); Thyroid Stimulating Hormone 0.449 uIU/mL (0.360-3.740)
[2021-01-17] MEDS: NA CHLORIDE 0.9% 1,000 ML IV SCH ×4 (09:35→22:24)
[2021-01-17] MEDS: HYDRALAZINE HCL 20 MG/ML VIAL IV PRN ×3 (09:37→20:42)
[2021-01-18] MEDS: HEPARIN 5000 UNIT/ML 1 ML VIAL SQ SCH ×2 (00:24→07:57)
[2021-01-18] MEDS: HYDROMORPHONE HCL 0.5 MG/0.5 ML INJ IV PRN ×2 (04:12→07:56)
[2021-01-18 06:11] LABS: Absolute Lymphocytes (CBC) 0.7 K/uL (0.7-4.9); Basophils % 0.5 % (0-1.3); Lymphocytes % 16.7 % (15.3-44.8); MPV 8.9 fL (7.6-11.3); RBC Red Blood Cell Count 4.42 M/uL (4.33-5.43)
[2021-01-18 06:31] LABS: Albumin 2.8 g/dL (3.4-5.0); Bilirubin Total 1.1 mg/dL (0.2-1.0); Magnesium 1.8 mg/dL (1.8-2.4); Potassium 4.7 mmol/L (3.5-5.1); Protein, Total 7.2 g/dL (6.4-8.2)
[2021-01-18] MEDS ORDERED: MAGNESIUM SULFATE 1 gm IVPB 1 GM/100 ML BAG IV ONE (09:00)
[2021-01-18] MEDS: NA CHLORIDE 0.9% 1,000 ML IV SCH ×2 (10:01→13:46)
[2021-01-18 10:02] VITALS: BP 151/92
[2021-01-18 10:30] VITALS: O2SAT 95
--- NOTE | 2021-01-18 11:10 | P.PN ---
Subjective Date of Service: 01/17/21 Patient is clinically doing well with no new complaints. Patient's symptoms are improving. Will advance diet as tolerated. Review of Systems 10-point ROS is otherwise unremarkable Physical Examination - Vital Signs Temperature: 98.4 F Blood Pressure: 151/92 Pulse: 91 Respirations: 19 Pulse Ox (%): 98 - Physical Exam General: Alert, In no apparent distress, Oriented x3 Respiratory: Clear to auscultation bilaterally, Normal air movement Cardiovascular: Regular rate/rhythm, Normal S1 S2, No murmurs Gastrointestinal: Normal bowel sounds, Soft and benign, Non-distended, No rebound, No guarding, Tenderness Musculoskeletal: No clubbing, No swelling, No tenderness Neurological: Sensation intact, Cranial nerves 3-12 intact - Studies Medications List Reviewed: Yes Assessment & Plan - Problems (Diagnosis) (1) Acute alcoholic pancreatitis Current Visit: No Status: Acute Qualifiers: Acute pancreatitis complication: no infection or necrosis Qualified Code(s) : K85.20 - Alcohol induced acute pancreatitis without necrosis or infection (2) Chronic systolic heart failure Current Visit: No Status: Chronic (3) ETOH abuse Onset Date: 10/31/16 Current Visit: No Status: Chronic (4) HTN (hypertension) Onset Date: 11/01/16 Current Visit: No Status: Chronic Qualifiers: Hypertension type: essential hypertension (5) History of gout Current Visit: No Status: Chronic (6) Obesity (BMI 30.0-34.9) Current Visit: No Status: Chronic - Plan 1. Continue with IV hydration 2. NPO 3. Continue with pain control 4. Employment Program Representative regarding alcohol cessation 5. Outpatient GI consultation; 6. Serial H&H, and we will monitor CBC, BMP, LFTs and lipase along with electrolytes. 7. GI and DVT prophylaxis Discharge Plan: Home Plan to discharge in: Greater than 2 days - Advance Directives Does patient have a Living Will: Yes Does patient have a Durable POA for Healthcare: Yes - Code Status/Comfort Care Code Status Assessed: Yes Code Status: Full Code Critical Care: No Time Spent Managing PTS Care (In Minutes): 35
[2021-01-18] MEDS ORDERED: METOPROLOL TAR 25 MG TAB PO SCH (11:12)
--- NOTE | 2021-01-18 11:14 | P.DS ---
Discharge Date: 01/18/21 Primary Care Provider: Shahid Disposition: ROUTINE DISCHARGE Discharge Condition: GOOD Reason for Admission: alcoholic pancreatitis - Problems (1) Acute alcoholic pancreatitis Status: Acute Qualifiers: Acute pancreatitis complication: no infection or necrosis Qualified Code(s): K85.20 - Alcohol induced acute pancreatitis without necrosis or infection (2) Chronic systolic heart failure Status: Chronic (3) ETOH abuse Onset Date: 10/31/16 Status: Chronic (4) HTN (hypertension) Onset Date: 11/01/16 Status: Chronic Qualifiers: Hypertension type: essential hypertension Qualified Code(s): I10 - Essential (primary) hypertension (5) History of gout Status: Chronic (6) Obesity (BMI 30.0-34.9) Status: Chronic Brief History of Present Illness: Mr. Paulino is a 60 yo M with CHF, HTN, CKD, h/o TIA, & gout here today with 1 day of 10/10 diffuse abdominal pain. He drank 1 pint of gin on Saturday and the pain began yesterday. He was last admitted to the hospital for alcoholic pancreatitis 4 months ago. His last drink was also at that time. He denies nausea, vomiting, night sweats, chills. Reports anorexia. BUN 26, Cr 1.99, GFR 41, AST 77, lipase 1817. CT abdomen consistent with pancreatitis. Hospital Course: Patient done well during hospital stay. Patient clinically is doing much better. Patient is tolerating diet and patient's pain is stable. At this time, patient will be discharged for close outpatient follow with Gastroenterology. Vital Signs/Physical Exam: Temp Pulse Resp BP Pulse Ox 98.4 F 91 H 19 151/92 H 98 01/18/21 11:10 01/18/21 11:10 01/18/21 11:10 01/18/21 11:10 01/18/21 11:10 General: Alert, In no apparent distress, Oriented x3 Laboratory Data at Discharge: WBC 4.50 K/uL (4.3-10.9) D 01/18/21 05:59 Hgb 12.9 g/dL (13.6-17.9) L 01/18/21 05:59 Hct 39.0 % (39.6-49.0) L 01/18/21 05:59 Plt Count 157 K/uL (152-406) 01/18/21 05:59 Sodium 143 mmol/L (136-145) 01/18/21 05:59 Potassium 4.7 mmol/L (3.5-5.1) 01/18/21 05:59 BUN 20 mg/dL (7-18) H 01/18/21 05:59 Creatinine 1.69 mg/dL (0.55-1.3) H 01/18/21 05:59 Glucose 110 mg/dL (74-106) H 01/18/21 05:59 Phosphorus 2.9 mg/dL (2.5-4.9) 01/17/21 03:43 Magnesium 1.8 mg/dL (1.8-2.4) 01/18/21 05:59 Total Bilirubin 1.1 mg/dL (0.2-1.0) H 01/18/21 05:59 AST 37 U/L (15-37) 01/18/21 05:59 ALT 26 U/L (12-78) 01/18/21 05:59 Alkaline Phosphatase 71 U/L (45-117) 01/18/21 05:59 Triglycerides 74 mg/dL (<150) 01/17/21 03:43 Cholesterol 246 mg/dL (<200) H 01/17/21 03:43 HDL Cholesterol 96 mg/dL (40-60) H 01/17/21 03:43 Cholesterol/HDL Ratio 2.56 01/17/21 03:43 Lipase 548 U/L (73-393) H 01/18/21 05:59 Home Medications: Amiodarone HCl [Cordarone*] 1 tab PO DAILY 01/18/21 Metoprolol Tartrate 1 tab PO BID 01/18/21 Physician Discharge Instructions: OK TO DC IV AND DC HOME FOLLOW-UP WITH PRIMARY CARE PROVIDER IN 1-2 WEEKS FOLLOW-UP WITH Gastroenterology IN 1-2 WEEKS RETURN TO THE ER IF symptoms worsen CALL or TEXT DR. CALI AT [phone] IF ANY QUESTIONS REGARDING HOSPITAL STAY. PLEASE CALL THE FLOOR AT [phone] IF ANY MEDICATION OR NURSING QUESTIONS. Diet: Regular Activity: Fall precautions Followup: CONCHITA DURAN [Primary Care Provider] - Time spent managing pt's care (in minutes): 35
[2021-01-18] MEDS ORDERED: AMIODARONE HCL 200 MG TAB PO SCH (11:30)
[2021-01-18 12:28] VITALS: TEMP 98.1
== END 2021-01-18 14:37 | disposition home or self-care (01) | DRG 439 ==
LOC: ER 13:20 → ERHOLD 18:53 → 2ND 21:22
PROVIDERS: ADMIT Hospitalist; ATTEND Hospitalist
DX: K85.20 Alcohol induced acute pancreatitis without necrosis or infection (principal); I13.0 Hypertensive heart and chronic kidney disease with heart failure and stage 1 through stage 4 chronic kidney disease, or unspecified chronic kidney disease; I50.22 Chronic systolic (congestive) heart failure; N18.32 Chronic kidney disease, stage 3b; F10.10 Alcohol abuse, uncomplicated; M10.9 Gout, unspecified; I16.0 Hypertensive urgency; M19.90 Unspecified osteoarthritis, unspecified site; E66.9 Obesity, unspecified; Z68.30 Body mass index [BMI] 30.0-30.9, adult; Z86.73 Personal history of transient ischemic attack (TIA), and cerebral infarction without residual deficits; Z79.899 Other long term (current) drug therapy; Z95.5 Presence of coronary angioplasty implant and graft; Z88.0 Allergy status to penicillin; Z89.022 Acquired absence of left finger(s); Z20.822 Contact with and (suspected) exposure to COVID-19
CPT/HCPCS: 36415; 71046; 74176; 76705; 80048; 80053; 80061; 80076; 81003; 81015; 83690; 83735; 83880; 84100; 84439; 84443; 85025; 94760; 96361; 96374; 96375; 99285; J0360; J1170; J1644; J2405; J3475; J7030; J7040; U0003

== ENCOUNTER 2021-09-03 22:18 | Inpatient (IN) | payer MEDICARE ==
--- OUTSIDE RECORDS SUMMARY | 2021-09-03 22:20 | XMS REPORT | Continuity of Care Document ---
:1960 Author Organization [facility] t Address [address] [place] [address] Care Team Providers Name Role Phone Unavailable Unavailable Unavailable Problems This patient has no known problems. Allergies, Adverse Reactions, Alerts This patient has no known allergies or adverse reactions. Medications This patient has no known medications. Procedures This patient has no known procedures. Encounters Start End Encounter Admission Attending Care Care Encounter Source Date/Time Date/Time Type Type Clinicians Facility Department ID 2021-05-27 Inpatient UR [facility] Gastro [id number] [facility] 02:33:30 [facility] Results This patient has no known results.
[2021-09-03] MEDS ORDERED: MORPHINE 4 MG/ML SYR ONE ×2 (22:58→23:09)
[2021-09-03] MEDS ORDERED: ONDANSETRON 4 MG/2 ML VIAL ONE ×2 (22:58→23:09)
[2021-09-03 23:05] LABS: Absolute Lymphocytes (CBC) 1.7 K/uL (0.7-4.9); Hematocrit 51.7 % (39.6-49.0); MPV 9.2 fL (7.6-11.3); RBC Red Blood Cell Count 5.87 M/uL (4.33-5.43)
[2021-09-03] MEDS ORDERED: NA CHLORIDE 0.9% 1,000 ML ONE (23:09)
[2021-09-03 23:33] LABS: Albumin 3.1 g/dL (3.4-5.0); Bilirubin Direct 0.5 mg/dL (0-0.2); Bilirubin Total 1.4 mg/dL (0.2-1.0); Potassium 4.5 mmol/L (3.5-5.1); Protein, Total 8.1 g/dL (6.4-8.2)
--- NOTE | 2021-09-04 00:44 | ER ---
Nurse's Notes [facility] Name: Natan Paulino Sr Age: 61 yrs Sex: Male : 1960 Arrival Date: 09/03/2021 Time: 22:20 Bed 24 Private MD: Diagnosis: Alcohol induced acute pancreatitis without necrosis or infection Presentation: 09/03 22:36 Chief complaint: Patient states: I HAVE HAD PANCREATIS BEFORE. I AM HAVING THE SAME kd3 SYMPTOMS. MY STOMACH HURTS. Coronavirus screen: Vaccine status: Patient reports receiving the 2nd dose of the covid vaccine. Ebola Screen: No symptoms or risks identified at this time. Initial Sepsis Screen: Does the patient meet any 2 criteria? No. Patient's initial sepsis screen is negative. Does the patient have a suspected source of infection? No. Patient's initial sepsis screen is negative. Risk Assessment: Do you want to hurt yourself or someone else? Patient reports no desire to harm self or others. Onset of symptoms was September 03, 2021. 22:36 Method Of Arrival: Ambulatory kd3 22:36 Acuity: NINO 3 lp1 Triage Assessment: 22:37 General: Appears uncomfortable, Behavior is calm, cooperative, appropriate for age. kd3 Pain: Complains of pain in abdomen. GI: Reports bloating, epigastric pain, gaseousness. Historical: - Allergies: 22:37 PENICILLINS; kd3 - Home Meds: 22:37 carvedilol Oral [Active]; Lasix 20 mg Oral tab 1 tab once daily [Active]; lisinopril 10 kd3 mg Oral tab 1 tab once daily [Active]; metoprolol tartrate 25 mg Oral tab 1 tab 2 times per day [Active]; Methocarbamol Oral [Active]; - PMHx: 22:37 CHF; Gout; Hypertension; osteoarthritis; Pancreatitis; Rheumatoid Arthritis; TIA; kd3 - PSHx: 22:37 Stented artery; kd3 - Immunization history:: Adult Immunizations up to date, Client reports receiving the Orestes \\T\\ Orestes single-dose vaccine. - Social history:: Smoking status: Patient denies any tobacco usage or history of. Screenin:40 Abuse screen: Denies threats or abuse. Denies injuries from another. Nutritional kd3 screening: No deficits noted. Tuberculosis screening: No symptoms or risk factors identified. Fall Risk None identified. Assessment: 23:20 Reassessment: No changes from previously documented assessment. General: Appears st1 uncomfortable, well groomed, well developed, Behavior is calm, cooperative. Pain: Complains of pain in abdomen Pain does not radiate. Pain currently is 7 out of 10 on a pain scale. Quality of pain is described as aching, crampy, Pain began suddenly, Is continuous. GI: Abdomen is round distended, obese. Vital Signs: 22:36 BP 158 / 99; Pulse 96; Resp 20; Temp 97.7; Pulse Ox 100% on R/A; kd3 22:36 Weight 102.06 kg; Height 6 ft. 3 in. (190.50 cm); Pain 10/10; kd3 23:21 BP 156 / 111; Pulse 83; Resp 18; Pulse Ox 100% on 2 lpm NC; st1 23:22 Height 6 ft. 3 in. (190.50 cm); st1 09/04 00:21 BP 169 / 110; Pulse 82; Resp 16; Pulse Ox 100% on R/A; st1 09/03 23:22 Body Mass Index 28.12 (102.06 kg, 190.50 cm) st1 Vitals: 09/03 23:22 Cardiac Rhythm Assessment Regular. st1 [place] Coma Score: 23:15 Eye Response: spontaneous(4). Verbal Response: oriented(5). Motor Response: obeys st1 commands(6). Total: 15. ED Course: 22:20 Patient arrived in ED. [id number] 22:34 [facility]isel Uriostegui FNP-C [facility] kb 22:34 Chalino Rouse MD is Attending Physician. kb 22:37 Triage completed. kd3 22:37 Arm band placed on left wrist. kd3 23:06 Etta Masterson, RADHIKA is Primary Nurse. st1 23:06 Basic Metabolic Panel Sent. st1 23:06 CBC with Diff Sent. st1 23:06 Hepatic Function Sent. st1 23:06 Lipase Sent. st1 23:20 US Abdomen Limited Sent. st1 23:23 Patient has correct armband on for positive identification. Bed in low position. Call st1 light in reach. Side rails up X 1. teletypesetter monitor on. Pulse ox on. NIBP on. Verbal reassurance given. 23:33 US Abdomen Limited In Process Unspecified. EDMS 23:47 SARS-COV-2 RT PCR Sent. st1 23:47 COVID-19 SARS RT PCR (Document "Date of Onset" if Symptomatic) Sent. st1 09/04 00:11 CT Abd/Pelvis - Without Contrast In Process Unspecified. EDMS 00:20 SARS-COV-2 RT PCR Sent. st1 00:22 No provider procedures requiring assistance completed. st1 00:43 Thomas Boyle is Hospitalizing Provider. kb Administered Medications: 09/03 23:16 Drug: morphine 4 mg Route: IVP; Site: right hand; st1 23:17 Drug: NS 0.9% 1000 ml Route: IV; Rate: 1000 ml; Site: right hand; st1 23:17 Drug: Zofran (Ondansetron) 4 mg Route: IVP; Site: right hand; st1 09/04 01:41 Drug: morphine 4 mg Route: IVP; Site: right hand; st1 Outcome: 00:44 Decision to Hospitalize by Provider. kb 20:21 Admitted to Med/surg accompanied by nurse, via wheelchair, room 413, Report called to sf1 bedside report given RADHIKA Turner 20:21 Condition: stable 20:22 Patient left the ED. sf1 Signatures: Dispatcher [employer] EDMS Yisel Uriostegui, JIMMY-Bertha SUPERVISING FLOORPERSON-Piper Alfredo RN RN lp1 Geena Merlos6 Kera Dyer RN RN kd3 Etta Masterson RN RN st1 Saray Wayne RN RN sf1 Corrections: (The following items were deleted from the chart) 09/03 22:39 22:37 PSHx: None; kd3 kd3 23:53 22:36 Acuity: NINO 4 kd3 lp1
--- NOTE | 2021-09-04 00:44 | EDPHYS ---
Physician Documentation [facility] Name: Natan Paulino Sr Age: 61 yrs Sex: Male : 1960 Arrival Date: 09/03/2021 Time: 22:20 Bed 24 Private MD: ED Physician Chalino Rouse HPI: 09/03 22:43 This 61 yrs old Black Male presents to ER via Ambulatory with complaints of kb Nausea/Vomiting, Fever. 22:43 The patient presents to the emergency department with nausea, vomiting. Onset: The kb symptoms/episode began/occurred this morning. Possible causes: unknown. The symptoms are aggravated by nothing. The symptoms are alleviated by nothing. Associated signs and symptoms: Pertinent positives: abdominal pain, nausea, vomiting, Pertinent negatives: diarrhea. Severity of symptoms: At their worst the symptoms were moderate in the emergency department the symptoms are unchanged. The patient has experienced similar episodes in the past, multiple times. The patient has not recently seen a physician. 22:43 Pt reports upper abd pain, nausea and vomiting that started today. States he has had kb pancreatitis in the past and this feels the same. States he drank alcohol today. Historical: - Allergies: 22:37 PENICILLINS; kd3 - Home Meds: 22:37 carvedilol Oral [Active]; Lasix 20 mg Oral tab 1 tab once daily [Active]; lisinopril 10 kd3 mg Oral tab 1 tab once daily [Active]; metoprolol tartrate 25 mg Oral tab 1 tab 2 times per day [Active]; Methocarbamol Oral [Active]; - PMHx: 22:37 CHF; Gout; Hypertension; osteoarthritis; Pancreatitis; Rheumatoid Arthritis; TIA; kd3 - PSHx: 22:37 Stented artery; kd3 - Immunization history:: Adult Immunizations up to date, Client reports receiving the Orestes \\T\\ Orestes single-dose vaccine. - Social history:: Smoking status: Patient denies any tobacco usage or history of. ROS: 22:42 Constitutional: Negative for fever, chills, and weight loss. kb 22:42 Abdomen/GI: Positive for abdominal pain, nausea and vomiting, Negative for diarrhea. 22:42 All other systems are negative. Exam: 22:42 Head/Face: Normocephalic, atraumatic. ENT: Moist Mucous membranes Cardiovascular: kb Regular rate and rhythm with a normal S1 and S2. No gallops, murmurs, or rubs. No pulse deficits. Respiratory: Respirations even and unlabored. No increased work of breathing. Talking in full sentences Skin: Warm, dry with normal turgor. Normal color. MS/ Extremity: Pulses equal, no cyanosis. Neurovascular intact. Full, normal range of motion. Neuro: Awake and alert, GCS 15, oriented to person, place, time, and situation. Moves all extremities. Normal gait. Psych: Awake, alert, with orientation to person, place and time. Behavior, mood, and affect are within normal limits. 22:42 Constitutional: The patient appears alert, awake, uncomfortable. 22:42 Abdomen/GI: Inspection: abdomen appears normal, Bowel sounds: normal, in all quadrants, Palpation: soft, in all quadrants, moderate abdominal tenderness, in the right upper quadrant and left upper quadrant. Vital Signs: 22:36 BP 158 / 99; Pulse 96; Resp 20; Temp 97.7; Pulse Ox 100% on R/A; kd3 22:36 Weight 102.06 kg; Height 6 ft. 3 in. (190.50 cm); Pain 10/10; kd3 23:21 BP 156 / 111; Pulse 83; Resp 18; Pulse Ox 100% on 2 lpm NC; st1 23:22 Height 6 ft. 3 in. (190.50 cm); st1 09/04 00:21 BP 169 / 110; Pulse 82; Resp 16; Pulse Ox 100% on R/A; st1 09/03 23:22 Body Mass Index 28.12 (102.06 kg, 190.50 cm) st1 [place] Coma Score: 09/03 23:15 Eye Response: spontaneous(4). Verbal Response: oriented(5). Motor Response: obeys st1 commands(6). Total: 15. MDM: 22:37 Patient medically screened. kb 22:41 Data reviewed: vital signs, nurses notes. Data interpreted: Pulse oximetry: on room air kb is 100 %. Interpretation: normal. 09/04 00:43 Counseling: I had a detailed discussion with the patient and/or guardian regarding: the kb historical points, exam findings, and any diagnostic results supporting the discharge/admit diagnosis, lab results, radiology results, the need for further work-up and treatment in the hospital. Physician consultation: Bryon DURHAM was contacted at 00:43, regarding admission, patient's condition, and will see patient in ED. 09/03 22:37 Order name: Basic Metabolic Panel; Complete Time: 23:34 kb 09/03 22:37 Order name: CBC with Diff; Complete Time: 23:16 kb 09/03 22:37 Order name: Hepatic Function; Complete Time: 23:34 kb 09/03 22:37 Order name: Lipase; Complete Time: 23:34 kb 09/03 23:37 Order name: COVID-19 SARS RT PCR (Document "Date of Onset" if Symptomatic) kb 09/03 23:38 Order name: SARS-COV-2 RT PCR; Complete Time: 01:04 EDMS 09/03 22:37 Order name: US Abdomen Limited; Complete Time: 16:24 kb 09/03 23:34 Order name: CT Abd/Pelvis - Without Contrast; Complete Time: 16:24 kb 09/04 04:13 Order name: Lipid Profile; Complete Time: 16:24 EDMS 09/04 04:13 Order name: Amylase; Complete Time: 16:24 EDMS 09/04 04:13 Order name: Lipase; Complete Time: 16:24 EDMS 09/04 07:50 Order name: Lipase; Complete Time: 16:24 EDMS 09/03 22:37 Order name: IV Saline Lock; Complete Time: 22:53 kb 09/03 22:37 Order name: Labs collected and sent; Complete Time: 22:53 kb Administered Medications: 09/03 23:16 Drug: morphine 4 mg Route: IVP; Site: right hand; st1 23:17 Drug: NS 0.9% 1000 ml Route: IV; Rate: 1000 ml; Site: right hand; st1 23:17 Drug: Zofran (Ondansetron) 4 mg Route: IVP; Site: right hand; st1 09/04 01:41 Drug: morphine 4 mg Route: IVP; Site: right hand; st1 Disposition Summary: 09/04/21 00:44 Hospitalization Ordered Hospitalization Status: Inpatient Admission kb Provider: Thomas Boyle Condition: Stable kb Problem: new kb Symptoms: are unchanged kb Bed/Room Type: Standard kb Location: Telemetry/MedSurg (Inpatient)(09/04/21 18:40) dw Room Assignment: 413(09/04/21 18:40) dw Diagnosis - Alcohol induced acute pancreatitis without necrosis or infection kb Forms: - Medication Reconciliation Form kb - SBAR form kb Addendum: 09/07/2021 19:18 Co-signature as Attending Physician, Chalino Rouse MD. [facility] Signatures: Dispatcher [employer] EDLA Yisel Uriostegui, FILM MAKER-C FILM MAKER-Ckb Isidra Albright, RN RN Kamilah Barnes RN RN Chalino Diaz MD MD 7 Kera Dyer RN RN kd3 Etta Masterson, RN RN st1 Corrections: (The following items were deleted from the chart) 09/03 22:39 22:37 PSHx: None; kd3 kd3 22:44 22:43 The patient has not experienced similar symptoms in the past, kb kb 23:36 22:37 Abdomen Pelvis W Con+CT.RAD.BRZ ordered. [facility] 09/04 01:33 00:44 Telemetry/MedSurg (Inpatient) kb mw 01:33 00:44 kb mw 18:40 01:33 [facility] ER HOLD mw dw 18:40 01:33 ERHOLD- mw dw
[2021-09-04] MEDS ORDERED: MORPHINE 4 MG/ML SYR ONE ×3 (01:40→09:59)
[2021-09-04] MEDS ORDERED: ACETAMINOPHEN 500 MG TAB PO PRN (02:11)
[2021-09-04] MEDS ORDERED: NA CHLORIDE 0.9% 1,000 ML IV SCH ×2 (02:11→10:29)
--- NOTE | 2021-09-04 02:19 | P.HP ---
Certification for Inpatient Patient admitted to: Inpatient With expected LOS: >2 Midnights Patient will require the following post-hospital care: None Practitioner: I am a practitioner with admitting privileges, knowledge of patient current condition, hospital course, and medical plan of care. Services: Services provided to patient in accordance with Admission requirements found in Title 42 Section 412.3 of the Code of Federal Regulations Patient History Date of Service: 09/04/21 History of Present Illness: Mr. Paulino is a 61 yo M with history of alcohol associated pancreatitis, HTN, and CKD who presents with 10/10 epigastric abodminal pain beginning yesterday morning. He reports nausea and vomiting. He had some friends visiting him so he drank alcohol yesterday before the pain started. He reported the pain medication is helping. He was found to be COVID+. He is asymptomatic. He has received both vaccine doses and a booster. BUN 21 Cr 2.13 GFR 38 Glu 134 Tbili 1.4 Dbili 0.5 AST 58 BNP 5103 Allergies Penicillins Allergy (Verified 05/03/20 05:24) Hives/Rash Home Medications: Amiodarone HCl [Cordarone*] 1 tab PO DAILY 01/18/21 Metoprolol Tartrate 1 tab PO BID 01/18/21 - Past Medical/Surgical History Diabetic: No -: Hypertension -: Systolic congestive heart failure secondary to alcoholic cardiomyopathy -: Alcoholic Pancreatitis -: TIA -: Gout -: CKD -: Cardiac stent placement July 2019 -: removal of L 5th digit Psychosocial/ Personal History: Patient currently lives at home with his and is on disability due to heart condition. - Family History Father -: Cancer, Liver disease Notes: asbestos. exposure Mother Notes: mom is healthy - Social History Smoking Status: Never smoker Alcohol use: Yes CD- Drugs: No Caffeine use: Yes Place of Residence: Home Review of Systems 10-point ROS is otherwise unremarkable Gastrointestinal: Nausea, Vomiting, Abdominal Pain Physical Examination - Physical Exam General: Alert, In no apparent distress HEENT: Atraumatic, PERRLA, Mucous membr. moist/pink, EOMI, Sclerae nonicteric Neck: Supple, 2+ carotid pulse no bruit, No LAD, Without JVD or thyroid abnormality Respiratory: Clear to auscultation bilaterally, Normal air movement Cardiovascular: Regular rate/rhythm, Normal S1 S2 Gastrointestinal: Normal bowel sounds, Tenderness (epigastric) Musculoskeletal: No tenderness Integumentary: No rashes Neurological: Normal gait, Normal speech, Normal strength at 5/5 x4 extr, Normal tone, Normal affect Lymphatics: No axilla or inguinal lymphadenopathy - Studies Laboratory Data (last 24 hrs) 09/03/21 22:52: WBC 7.00, Hgb 16.7, Hct 51.7 H, Plt Count 199 09/03/21 22:52: Sodium 143, Potassium 4.5, BUN 21 H, Creatinine 2.13 H, Glucose 134 H, Total Bilirubin 1.4 H, AST 58 H, ALT 48, Alkaline Phosphatase 77, Lipase 5103 H Assessment and Plan - Problems (Diagnosis) (1) Acute alcoholic pancreatitis Current Visit: No Status: Acute Qualifiers: Acute pancreatitis complication: no infection or necrosis (2) Chronic kidney disease, stage 3 Current Visit: No Status: Chronic Qualifiers: Chronic kidney disease stage 3 subtype: stage 3b (GFR 30-44) (3) HTN (hypertension) Onset Date: 11/01/16 Current Visit: No Status: Chronic Qualifiers: Hypertension type: primary hypertension Qualified Code(s): I10 - Essential (primary) hypertension - Plan NPO overnight continue IV fluids, antiemetics and pain management as needed lipid panel pending, trend lipase and amylase hydralazine PRN for BP spikes reconcile and continue home medications DVT ppx Discharge Plan: Home Plan to discharge in: 48 Hours - Advance Directives Does patient have a Living Will: Yes Does patient have a Durable POA for Healthcare: Yes - Code Status/Comfort Care Code Status Assessed: Yes (full code ) Critical Care: No Time Spent Managing Pts Care (In Minutes): 70
[2021-09-04 02:28] VITALS: BMI 28.0
[2021-09-04] MEDS: MORPHINE 4 MG/ML SYR IV PRN ×2 (06:02→10:09)
[2021-09-04] MEDS ORDERED: SODIUM CHLORIDE 0.9% 10ML INJ IV PRN (06:57)
[2021-09-04] MEDS ORDERED: FOLIC ACID 5 MG/ML VIAL IVP SCH (09:00)
[2021-09-04] MEDS ORDERED: AMIODARONE HCL 200 MG TAB ONE (09:58)
[2021-09-04] MEDS ORDERED: ONDANSETRON 4 MG/2 ML VIAL ONE (09:59)
[2021-09-04] MEDS ORDERED: PANTOPRAZOLE 40 MG INJ ONE (09:59)
[2021-09-04] MEDS: THIAMINE 200 MG/2 ML INJ IVP SCH (10:05)
[2021-09-04] MEDS ORDERED: THIAMINE 200 MG/2 ML INJ ONE (10:09)
[2021-09-04] MEDS: ONDANSETRON 4 MG/2 ML VIAL IV PRN (10:09)
[2021-09-04] MEDS: PANTOPRAZOLE 40 MG INJ IVP SCH (10:09)
[2021-09-04] MEDS: AMIODARONE HCL 200 MG TAB PO SCH (10:10)
[2021-09-04] MEDS: FOLIC ACID 1 MG in NA CHLORIDE 0.9% 50 ML IV SCH (10:11)
--- NOTE | 2021-09-04 10:29 | P.PN ---
Subjective Date of Service: 09/04/21 Primary Care Provider: Kristal Key NP Chief Complaint: Abdominal pain Subjective: Other (Patient still with epigastric abdominal pain. Overall stable) Physical Examination - Vital Signs Blood Pressure: 180/118 Pulse: 64 Respirations: 20 Pulse Ox (%): 100 - Studies Laboratory Data (last 24 hrs) 09/03/21 22:52: WBC 7.00, Hgb 16.7, Hct 51.7 H, Plt Count 199 09/03/21 22:52: Sodium 143, Potassium 4.5, BUN 21 H, Creatinine 2.13 H, Glucose 134 H, Total Bilirubin 1.4 H, AST 58 H, ALT 48, Alkaline Phosphatase 77, Lipase 5103 H Assessment & Plan Discharge Plan: Home Plan to discharge in: Greater than 2 days Physician Review Additional Text: COVID: Positive CT Abdomen: ABUS: Physical exam: Patient alert, cooperative. Heart: Regular rate rhythm Lungs: Clear to auscultation currently on room air. Abdomen: Epigastric pain noted. No significant distention Extremities: No swelling to the lower extremities. Impression: Acute alcoholic pancreatitis Chronic alcoholic cardiomyopathy Chronic systolic congestive heart failure Acute on CKD 3 Hypertension Gout Hyperlipidemia Alcohol abuse Plan Acute alcoholic pancreatitis: Patient remains n.p.o. at this time. Continue IV fluids. Consider transitioning to clear liquids once pain has significantly improved. We will continue to monitor closely. Counseled on alcohol cessation. Patient understands. Continue monitor the lablipase and electrolytes closely. Electrolyte protocol in place. Anticipate continued improvement over the next 72 hours. Chronic alcoholic cardiomyopathy: Overall stable. Recent ejection fraction around 70%. Will decrease IV fluids. Continue with amiodarone and metoprolol. Chronic systolic congestive heart failure: Hold diuretic therapy. Will decrease IV fluids. Acute on CKD 3: We will decrease IV fluids. Nephrology consulted to help manage. Hypertension: Continue home medication metoprolol 12.5 mg 1 pill twice daily. Will monitor and adjust medication. Gout: We will monitor closely Hyperlipidemia: Verify home medication Alcohol abuse: Alcohol cessation addressed in detail. Patient plans to quit. DVT prophylaxis: Heparin CODE STATUS: Full code Advance care [id number] minutes: Home at discharge Time Spent Managing Pts Care (In Minutes): 55
--- NOTE | 2021-09-04 13:20 | RAD REPORT ---
EXAM DESCRIPTION: CT - Abdomen Pelvis Wo Contrast - 09/04/2021 6:46 am CLINICAL HISTORY: The patient is 61 years old and is Male; MID abdominal pain, nausea and vomiting TECHNIQUE: Axial computed tomography images of the abdomen and pelvis without intravenous contrast. Sagittal and coronal reformatted images were created and reviewed. This CT exam was performed usi ng one or more of the following dose reduction techniques: automated exposure control, adjustment o f the mA and/or kV according to patient size, and/or use of iterative reconstruction technique. COMPARISON: CT ABDOMEN PELVIS dated Jan 16 2021 FINDINGS: LUNG BASES: Unremarkable. No mass. No consolidation. HEART: The heart is enlarged. ABDOMEN: LIVER: The liver is enlarged and mildly fatty. GALLBLADDER AND BILE DUCTS: No calcified stones. No ductal dilation. PANCREAS: Mild inflammatory stranding surrounding the pancreas is present. There is no pseudocys t. No ductal dilation. SPLEEN: Unremarkable. ADRENALS: Unremarkable. No mass. KIDNEYS AND URETERS: Few right renal cysts are present. There is no hydronephrosis or hydrourete r of either kidney. No obstructing renal or ureteral calculus is seen. Nonspecific perinephric stra nding is present bilaterally. STOMACH AND BOWEL: The stomach is decompressed. The small bowel is normal in caliber. Minimal st ool is present throughout colon. There is no mucosal thickening or evidence of bowel obstruction. PELVIS: APPENDIX: The appendix is normal in caliber without surrounding inflammation. BLADDER: Unremarkable. No stones. REPRODUCTIVE: Unremarkable as visualized. ABDOMEN and PELVIS: INTRAPERITONEAL SPACE: Unremarkable. No free air. No significant fluid collection. BONES/JOINTS: Multilevel degenerative change of the spine is present. SOFT TISSUES: There are small bilateral fat containing inguinal hernias. VASCULATURE: Minimal atherosclerosis of the vasculature is present. No abdominal aortic aneury sm. LYMPH NODES: Unremarkable. No enlarged lymph nodes. IMPRESSION: 1. Findings suggest a very mild pancreatitis. Correlation with patient's laboratory va lues is recommended. 2. Chronic findings as detailed above. Electronically signed by: Christiane Mancia MD 09/04/2021 12:27 AM [employer] Due to temporary technical issues with the PACS/Fluency reporting system, reports are being signed by the in house radiologist without review as a courtesy to ensure prompt reporting. The interpreting r adiologist is fully responsible for the content of the report.
--- NOTE | 2021-09-04 13:21 | RAD REPORT ---
EXAM DESCRIPTION: US - Abdomen Exam Limited - 09/04/2021 12:11 am CLINICAL HISTORY: ABD PAIN COMPARISON: None. TECHNIQUE: Real-time sonographic images of the gallbladder were obtained using a curved multihertz t ransducer. FINDINGS: Liver: The visualized liver has normal contour and echogenicity. Hepatopedal flow in the p ortal vein. Findings confirmed with color and spectral Doppler imaging. The common bile duct measur es 0.3 cm. Gallbladder: Mild wall thickening. No shadowing gallstones. Lorenzo's sign not provided. No pericholec ystic fluid. IMPRESSION: 1. No cholelithiasis. 2. Mild gallbladder wall thickening. This could be related to underdistention. Electronically signed by: Loki Contreras 09/03/2021 11:46 PM [employer]ITY [employer] Due to temporary technical issues with the PACS/Fluency reporting system, reports are being signed by the in house radiologist without review as a courtesy to ensure prompt reporting. The interpreting r adiologist is fully responsible for the content of the report.
--- NOTE | 2021-09-04 14:16 | P.CNS ---
Date of Consult: 09/04/21 Reason for Consult: BRIDGER/ CKD Requesting Physician: Anton Hayes Primary Care Provider: Kristal Key NP Chief Complaint: Abdominal pain History of Present Illness: Mr. Paulino is a 61 yo M with history of alcohol associated pancreatitis, HTN, and CKD who presents with 10/10 epigastric abodminal pain beginning yesterday morning. He reports nausea and vomiting. He had some friends visiting him so he drank alcohol yesterday before the pain started. He reported the pain medication is helping. He was found to be COVID+. He is asymptomatic. He has received both vaccine doses and a booster. He reports taking Aleve almost every night. He reports nocturia 3-4X per night and may have incomplete emptying of his bladder. 22:43 This 61 yrs old Black Male presents to ER via Ambulatory with complaints of kb Nausea/Vomiting, Fever. 22:43 The patient presents to the emergency department with nausea, vomiting. Onset: The kb symptoms/episode began/occurred this morning. Possible causes: unknown. The symptoms are aggravated by nothing. The symptoms are alleviated by nothing. Associated signs and symptoms: Pertinent positives: abdominal pain, nausea, vomiting, Pertinent negatives: diarrhea. Severity of symptoms: At their worst the symptoms were moderate in the emergency department the symptoms are unchanged. The patient has experienced similar episodes in the past, multiple times. The patient has not recently seen a physician. 22:43 Pt reports upper abd pain, nausea and vomiting that started today. States he has had kb pancreatitis in the past and this feels the same. States he drank alcohol today. Allergies Penicillins Allergy (Verified 05/03/20 05:24) Hives/Rash Home medications list reviewed: Yes Home Medications: Amiodarone HCl [Cordarone*] 1 tab PO DAILY 01/18/21 Metoprolol Tartrate 1 tab PO BID 01/18/21 - Past Medical/Surgical History Diabetic: No -: Hypertension -: Systolic congestive heart failure secondary to alcoholic cardiomyopathy -: Alcoholic Pancreatitis -: TIA -: Gout -: CKD -: Cardiac stent placement July 2019 -: removal of L 5th digit Psychosocial/ Personal History: Patient currently lives at home with his and is on disability due to heart condition. - Family History Father Medical History: Cancer, Liver disease Notes: asbestos. exposure Mother Notes: mom is healthy - Social History Alcohol use: Yes CD- Drugs: No Caffeine use: Yes Place of Residence: Home Review of Systems 10-point ROS is otherwise unremarkable Gastrointestinal: Abdominal Pain Genitourinary: Frequency Physical Examination Temp Pulse Resp BP Pulse Ox 98.2 F 61 17 152/75 H 99 09/04/21 12:00 09/04/21 12:00 09/04/21 12:00 09/04/21 12:00 09/04/21 12:00 General: Oriented x3, Cooperative HEENT: Atraumatic Neck: Supple Respiratory: Clear to auscultation bilaterally, Normal air movement Cardiovascular: No edema, Regular rate/rhythm Gastrointestinal: Non-distended, Tenderness Musculoskeletal: No clubbing, No contractures Integumentary: No rashes, No cyanosis Neurological: Normal speech Laboratory Data (last 24 hrs) 09/03/21 22:52: WBC 7.00, Hgb 16.7, Hct 51.7 H, Plt Count 199 09/03/21 22:52: Sodium 143, Potassium 4.5, BUN 21 H, Creatinine 2.13 H, Glucose 134 H, Total Bilirubin 1.4 H, AST 58 H, ALT 48, Alkaline Phosphatase 77, Lipase 5103 H Imagings Data: EXAM DESCRIPTION: US - Abdomen Exam Limited - 09/04/2021 12:11 am CLINICAL HISTORY: ABD PAIN COMPARISON: None. TECHNIQUE: Real-time sonographic images of the gallbladder were obtained using a curved multihertz transducer. FINDINGS: Liver: The visualized liver has normal contour and echogenicity. Hepatopedal flow in the portal vein. Findings confirmed with color and spectral Doppler imaging. The common bile duct measures 0.3 cm. Gallbladder: Mild wall thickening. No shadowing gallstones. Lorenzo's sign not provided. No pericholecystic fluid. IMPRESSION: 1. No cholelithiasis. 2. Mild gallbladder wall thickening. This could be related to under distention. EXAM DESCRIPTION: CT - Abdomen Pelvis Wo Contrast - 09/04/2021 6:46 am CLINICAL HISTORY: The patient is 61 years old and is Male; MID abdominal pain, nausea and vomiting TECHNIQUE: Axial computed tomography images of the abdomen and pelvis without intravenous contrast. Sagittal and coronal reformatted images were created and reviewed. This CT exam was performed using one or more of the following dose reduction techniques: automated exposure control, adjustment of the mA and/or kV according to patient size, and/or use of iterative reconstruction technique. COMPARISON: CT ABDOMEN PELVIS dated Jan 16 2021 FINDINGS: LUNG BASES: Unremarkable. No mass. No consolidation. HEART: The heart is enlarged. ABDOMEN: LIVER: The liver is enlarged and mildly fatty. GALLBLADDER AND BILE DUCTS: No calcified stones. No ductal dilation. PANCREAS: Mild inflammatory stranding surrounding the pancreas is present. There is no pseudocyst. No ductal dilation. SPLEEN: Unremarkable. ADRENALS: Unremarkable. No mass. KIDNEYS AND URETERS: Few right renal cysts are present. There is no hydronephrosis or hydroureter of either kidney. No obstructing renal or ureteral calculus is seen. Nonspecific perinephric stranding is present bilaterally. STOMACH AND BOWEL: The stomach is decompressed. The small bowel is normal in caliber. Minimal stool is present throughout colon. There is no mucosal thickening or evidence of bowel obstruction. PELVIS: APPENDIX: The appendix is normal in caliber without surrounding inflammation. BLADDER: Unremarkable. No stones. REPRODUCTIVE: Unremarkable as visualized. ABDOMEN and PELVIS: INTRAPERITONEAL SPACE: Unremarkable. No free air. No significant fluid collection. BONES/JOINTS: Multilevel degenerative change of the spine is present. SOFT TISSUES: There are small bilateral fat containing inguinal hernias. VASCULATURE: Minimal atherosclerosis of the vasculature is present. No abdominal aortic aneurysm. LYMPH NODES: Unremarkable. No enlarged lymph nodes. IMPRESSION: 1. Findings suggest a very mild pancreatitis. Correlation with patient's laboratory values is recommended. 2. Chronic findings as detailed above. Conclusions/Impression: BRIDGER likely due to chronic Aleve complicated by pancreatitis CKD III -No NSAIDs -Change IVF 1/2NS Acidosis -Change IVF 1/2NS HTN with CKD/ CHF -Continue metoprolol Systolic CHF, chronic Alcoholic cardiomyopathy -Continue Metoprolol IFG -Low sugar diet Mild malnutrition -NPO at this time Gout Alcoholic pancreatitis -NPO at this time -Change IVF 1/2NS -Continue Thiamine and Folic Acid Atherosclerosis of the aorta COVID-19 -Monitor status Thank you kindly for the consultation. Case reviewed with Dr. Hayes
[2021-09-04] MEDS ORDERED: HYDRALAZINE HCL 20 MG/ML VIAL ONE (14:51)
[2021-09-04] MEDS: HYDRALAZINE HCL 20 MG/ML VIAL IV PRN ×2 (14:54→21:38)
[2021-09-04] MEDS ORDERED: HYDROMORPHONE HCL 0.5 MG/0.5 ML INJ ONE (15:48)
[2021-09-04] MEDS: HYDROMORPHONE HCL 0.5 MG/0.5 ML INJ IV PRN ×2 (15:49→21:39)
[2021-09-04] MEDS: NACHLORIDE 0.45% 1,000 ML IV SCH (17:41)
[2021-09-04] MEDS ORDERED: METOPROLOL TAR 25 MG TAB ONE (17:44)
[2021-09-04] MEDS: METOPROLOL TAR 25 MG TAB PO SCH (17:49)
[2021-09-05] MEDS: ONDANSETRON 4 MG/2 ML VIAL IV PRN (00:08)
[2021-09-05 03:51] LABS: Absolute Lymphocytes (CBC) 1.2 K/uL (0.7-4.9); Hematocrit 45.8 % (39.6-49.0); Lymphocytes % 16.2 % (15.3-44.8); RBC Red Blood Cell Count 5.16 M/uL (4.33-5.43)
[2021-09-05] MEDS: HYDROMORPHONE HCL 0.5 MG/0.5 ML INJ IV PRN (03:58)
[2021-09-05 04:14] LABS: Albumin 2.8 g/dL (3.4-5.0); Bilirubin Total 1.3 mg/dL (0.2-1.0); C-Reactive Protein 9.23 mg/L (<3.00); Ferritin 263.3 ng/mL (26-388); Magnesium 1.9 mg/dL (1.8-2.4); Potassium 4.6 mmol/L (3.5-5.1); Protein, Total 7.7 g/dL (6.4-8.2)
[2021-09-05] MEDS: METOPROLOL TAR 25 MG TAB PO SCH ×2 (06:04→17:02)
--- NOTE | 2021-09-05 06:19 | P.PN ---
Subjective Date of Service: 09/05/21 Primary Care Provider: Kristal Key NP Chief Complaint: Abdominal pain Subjective: Improving Physical Examination - Vital Signs Temperature: 98.2 F Blood Pressure: 178/82 Pulse: 65 Respirations: 18 Pulse Ox (%): 98 Assessment & Plan Discharge Plan: Home Plan to discharge in: 48 Hours Physician Review Additional Text: COVID: Positive CT Abdomen: COMPARISON: CT ABDOMEN PELVIS dated Jan 16 2021 FINDINGS: LUNG BASES: Unremarkable. No mass. No consolidation. HEART: The heart is enlarged. ABDOMEN: LIVER: The liver is enlarged and mildly fatty. GALLBLADDER AND BILE DUCTS: No calcified stones. No ductal dilation. PANCREAS: Mild inflammatory stranding surrounding the pancreas is present. There is no pseudocyst. No ductal dilation. SPLEEN: Unremarkable. ADRENALS: Unremarkable. No mass. KIDNEYS AND URETERS: Few right renal cysts are present. There is no hydronephrosis or hydroureter of either kidney. No obstructing renal or ureteral calculus is seen. Nonspecific perinephric stranding is present bilaterally. STOMACH AND BOWEL: The stomach is decompressed. The small bowel is normal in caliber. Minimal stool is present throughout colon. There is no mucosal thickening or evidence of bowel obstruction. PELVIS: APPENDIX: The appendix is normal in caliber without surrounding inflammation. BLADDER: Unremarkable. No stones. REPRODUCTIVE: Unremarkable as visualized. ABDOMEN and PELVIS: INTRAPERITONEAL SPACE: Unremarkable. No free air. No significant fluid collection. BONES/JOINTS: Multilevel degenerative change of the spine is present. SOFT TISSUES: There are small bilateral fat containing inguinal hernias. VASCULATURE: Minimal atherosclerosis of the vasculature is present. No abdominal aortic aneurysm. LYMPH NODES: Unremarkable. No enlarged lymph nodes. IMPRESSION: 1. Findings suggest a very mild pancreatitis. Correlation with patient's laboratory values is recommended. 2. Chronic findings as detailed above. ABUS: COMPARISON: None. TECHNIQUE: Real-time sonographic images of the gallbladder were obtained using a curved multihertz transducer. FINDINGS: Liver: The visualized liver has normal contour and echogenicity. Hepatopedal flow in the portal vein. Findings confirmed with color and spectral Doppler imaging. The common bile duct measures 0.3 cm. Gallbladder: Mild wall thickening. No shadowing gallstones. Lorenzo's sign not provided. No pericholecystic fluid. IMPRESSION: 1. No cholelithiasis. 2. Mild gallbladder wall thickening. This could be related to underdistention. Physical exam: Patient alert, cooperative. Heart: Regular rate rhythm Lungs: Clear to auscultation currently on room air. Abdomen: Abdominal pain significantly improved Extremities: No swelling to the lower extremities. Impression: Acute alcoholic pancreatitis Chronic alcoholic cardiomyopathy Chronic systolic congestive heart failure Acute on CKD 3 Hypertension Gout Hyperlipidemia Alcohol abuse COVID-positive asymptomatic Plan Acute alcoholic pancreatitis: Abdominal pain improved. Will advance diet to clear liquid. If tolerating clear liquid then can advance diet to full liquid for dinner time. Anticipate continued improvement. Continue IV fluids. Likely home in the next 24 to 48 hours. Chronic alcoholic cardiomyopathy: Overall stable. Recent ejection fraction around 70%. Continue IV fluids. Continue with amiodarone and metoprolol. Chronic systolic congestive heart failure: Continue metoprolol and restart Entresto Acute on CKD 3: Continue IV fluids. Will discuss with nephrology. Anticipate discontinuation of IV fluids likely tomorrow. Hypertension: Continue home medication metoprolol 12.5 mg 1 pill twice daily. Will monitor and adjust medication. Gout: We will monitor closely Hyperlipidemia: Restart home medication probably tomorrow Alcohol abuse: Alcohol cessation addressed in detail. Patient plans to quit. COVID positive asymptomatic: We will monitor this closely. Patient without any major symptoms. DVT prophylaxis: Heparin CODE STATUS: Full code Advance care [id number] minutes: Home at discharge Time Spent Managing Pts Care (In Minutes): 55
[2021-09-05] MEDS: NACHLORIDE 0.45% 1,000 ML IV SCH ×2 (07:20→08:51)
[2021-09-05] MEDS: THIAMINE 200 MG/2 ML INJ IVP SCH (08:56)
[2021-09-05] MEDS: PANTOPRAZOLE 40 MG INJ IVP SCH (08:56)
[2021-09-05] MEDS: FOLIC ACID 1 MG in NA CHLORIDE 0.9% 50 ML IV SCH (08:57)
[2021-09-05] MEDS: AMIODARONE HCL 200 MG TAB PO SCH (08:57)
[2021-09-05 10:47] LABS: Urine Appearance CLEAR (Clear); Urine Blood NEGATIVE (Negative); Urine Color DK YELLOW (Yellow); Urine Glucose NEGATIVE (Negative); Urine Protein 3+ (Negative); Urine Specific Gravity 1.015 (1.005-1.030)
[2021-09-05 11:21] LABS: Urine Microscopic Reflex ORDER UMIC
[2021-09-05 11:27] LABS: Urine Bilirubin 1+ (Negative)
[2021-09-05 11:29] LABS: Urine Bacteria <20 /HPF (NONE SEEN); Urine RBC <5 /HPF (NONE SEEN)
[2021-09-05] MEDS: HYDRALAZINE HCL 20 MG/ML VIAL IV PRN (17:10)
--- NOTE | 2021-09-05 21:03 | P.PN ---
Date of Service: 09/05/21 Vital Signs Temp Pulse Resp BP Pulse Ox 98.2 F 78 18 122/73 99 09/05/21 16:00 09/05/21 18:45 09/05/21 16:00 09/05/21 18:45 09/05/21 16:00 Medications Acetaminophen (Acetaminophen 500 Mg Tab) 500 mg PO Q4HP PRN PRN Reason: Pain scale 2-4 (Mild) Last Admin: 09/05/21 17:07 Dose: 500 mg Documented by: Amiodarone HCl (Amiodarone Hcl 200 Mg Tab) 200 mg PO DAILY [facility] Last Admin: 09/05/21 08:57 Dose: 200 mg Documented by: Cetirizine HCl (Cetirizine Hcl 5 Mg Tablet) 10 mg PO DAILY [facility] Hydralazine HCl (Hydralazine Hcl 20 Mg/Ml Vial) 10 mg IV Q6HP PRN PRN Reason: Titrate to SBP (MUST DEFINE) Last Admin: 09/05/21 17:10 Dose: 10 mg Documented by: Hydromorphone HCl (Hydromorphone Hcl 0.5 Mg/0.5 Ml Inj) 0.5 mg IV Q4H PRN PRN Reason: Pain scale 5-7 (Moderate) Last Admin: 09/05/21 03:58 Dose: 0.5 mg Documented by: Folic Acid 1 mg/ Sodium (Chloride) 50.2 mls @ 200.8 mls/hr IV DAILY [facility] Last Admin: 09/05/21 08:57 Dose: 50.2 mls Documented by: Sodium Chloride (Sodium Chloride 0.45%) 1,000 mls @ 75 mls/hr IV .[id number] [facility] Last Admin: 09/05/21 08:51 Dose: 1,000 mls Documented by: Metoprolol Tartrate (Metoprolol Tar 25 Mg Tab) 12.5 mg PO BID 6AM 6PM [facility] Last Admin: 09/05/21 17:02 Dose: 12.5 mg Documented by: Ondansetron HCl (Ondansetron 4 Mg/2 Ml Vial) 4 mg IV Q6HP PRN PRN Reason: NAUSEA / VOMITING Last Admin: 09/05/21 00:08 Dose: 4 mg Documented by: Pantoprazole Sodium (Pantoprazole 40 Mg Inj) 40 mg IVP DAILY [facility]; Protocol Last Admin: 09/05/21 08:56 Dose: 40 mg Documented by: Sodium Chloride (Flush Normal Saline 10 Ml) 10 ml IV BID [facility] Last Admin: 09/05/21 09:00 Dose: 10 ml Documented by: Sodium Chloride (Sodium Chloride 0.9% 10ml Inj) 10 ml IV UD PRN PRN Reason: Diluant Thiamine HCl (Thiamine 200 Mg/2 Ml Inj) 100 mg IVP DAILY [facility] Assessment/ Plan: Nephrology No dyspnea No chest pain Feeling better No acute events overnight Vitals, medications, blood work and imaging reviewed in the chart General: Oriented x3, Cooperative HEENT: Atraumatic Neck: Supple Respiratory: Clear to auscultation bilaterally, Normal air movement Cardiovascular: No edema, Regular rate/rhythm Gastrointestinal: Non-distended, Tenderness Musculoskeletal: No clubbing, No contractures Integumentary: No rashes, No cyanosis Neurological: Normal speech Laboratory Data (last 24 hrs) 09/03/21 22:52: WBC 7.00, Hgb 16.7, Hct 51.7 H, Plt Count 199 09/03/21 22:52: Sodium 143, Potassium 4.5, BUN 21 H, Creatinine 2.13 H, Glucose 134 H, Total Bilirubin 1.4 H, AST 58 H, ALT 48, Alkaline Phosphatase 77, Lipase 5103 H Imagings Data: EXAM DESCRIPTION: US - Abdomen Exam Limited - 09/04/2021 12:11 am CLINICAL HISTORY: ABD PAIN COMPARISON: None. TECHNIQUE: Real-time sonographic images of the gallbladder were obtained using a curved multihertz transducer. FINDINGS: Liver: The visualized liver has normal contour and echogenicity. Hepatopedal flow in the portal vein. Findings confirmed with color and spectral Doppler imaging. The common bile duct measures 0.3 cm. Gallbladder: Mild wall thickening. No shadowing gallstones. Lorenzo's sign not provided. No pericholecystic fluid. IMPRESSION: 1. No cholelithiasis. 2. Mild gallbladder wall thickening. This could be related to under distention. EXAM DESCRIPTION: CT - Abdomen Pelvis Wo Contrast - 09/04/2021 6:46 am CLINICAL HISTORY: The patient is 61 years old and is Male; MID abdominal pain, nausea and vomiting TECHNIQUE: Axial computed tomography images of the abdomen and pelvis without intravenous contrast. Sagittal and coronal reformatted images were created and reviewed. This CT exam was performed using one or more of the following dose reduction techniques: automated exposure control, adjustment of the mA and/or kV according to patient size, and/or use of iterative reconstruction technique. COMPARISON: CT ABDOMEN PELVIS dated Jan 16 2021 FINDINGS: LUNG BASES: Unremarkable. No mass. No consolidation. HEART: The heart is enlarged. ABDOMEN: LIVER: The liver is enlarged and mildly fatty. GALLBLADDER AND BILE DUCTS: No calcified stones. No ductal dilation. PANCREAS: Mild inflammatory stranding surrounding the pancreas is present. There is no pseudocyst. No ductal dilation. SPLEEN: Unremarkable. ADRENALS: Unremarkable. No mass. KIDNEYS AND URETERS: Few right renal cysts are present. There is no hydronephrosis or hydroureter of either kidney. No obstructing renal or ureteral calculus is seen. Nonspecific perinephric stranding is present bilaterally. STOMACH AND BOWEL: The stomach is decompressed. The small bowel is normal in caliber. Minimal stool is present throughout colon. There is no mucosal thickening or evidence of bowel obstruction. PELVIS: APPENDIX: The appendix is normal in caliber without surrounding inflammation. BLADDER: Unremarkable. No stones. REPRODUCTIVE: Unremarkable as visualized. ABDOMEN and PELVIS: INTRAPERITONEAL SPACE: Unremarkable. No free air. No significant fluid collection. BONES/JOINTS: Multilevel degenerative change of the spine is present. SOFT TISSUES: There are small bilateral fat containing inguinal hernias. VASCULATURE: Minimal atherosclerosis of the vasculature is present. No abdominal aortic aneurysm. LYMPH NODES: Unremarkable. No enlarged lymph nodes. IMPRESSION: 1. Findings suggest a very mild pancreatitis. Correlation with patient's laboratory values is recommended. 2. Chronic findings as detailed above. Conclusions/Impression: BRIDGER likely due to chronic Aleve complicated by pancreatitis CKD III -No NSAIDs -Continue IVF Acidosis HTN with CKD/ CHF -Continue metoprolol Diastolic CHF, chronic LVEF 70% Alcoholic cardiomyopathy -Continue Metoprolol IFG -Low sugar diet Moderate malnutrition -Advance diet as tolerated Gout Alcoholic pancreatitis -NPO at this time -Continue IVF -Continue Thiamine and Folic Acid Atherosclerosis of the aorta COVID-19 -Monitor status
[2021-09-05 21:26] VITALS: O2SAT 98
[2021-09-05] MEDS: SACUBITRIL/VALSARTAN 49/51 MG TAB PO SCH (21:51)
[2021-09-06] MEDS: HYDROMORPHONE HCL 0.5 MG/0.5 ML INJ IV PRN ×2 (03:12→09:59)
[2021-09-06 04:03] LABS: Albumin 2.7 g/dL (3.4-5.0); Bilirubin Total 1.4 mg/dL (0.2-1.0); C-Reactive Protein 9.26 mg/L (<3.00); Magnesium 1.9 mg/dL (1.8-2.4); Potassium 4.6 mmol/L (3.5-5.1); Protein, Total 7.3 g/dL (6.4-8.2)
[2021-09-06] MEDS: NACHLORIDE 0.45% 1,000 ML IV SCH ×2 (06:10→10:06)
--- NOTE | 2021-09-06 06:16 | P.PN ---
Subjective Date of Service: 09/06/21 Primary Care Provider: Kristal Key NP Chief Complaint: Abdominal pain Subjective: Improving, Doing well Physical Examination - Vital Signs Temperature: 98.2 F Blood Pressure: 133/85 Pulse: 63 Respirations: 18 Pulse Ox (%): 97 Assessment & Plan Discharge Plan: Home Plan to discharge in: 24 Hours Physician Review Additional Text: COVID: Positive CT Abdomen: COMPARISON: CT ABDOMEN PELVIS dated Jan 16 2021 FINDINGS: LUNG BASES: Unremarkable. No mass. No consolidation. HEART: The heart is enlarged. ABDOMEN: LIVER: The liver is enlarged and mildly fatty. GALLBLADDER AND BILE DUCTS: No calcified stones. No ductal dilation. PANCREAS: Mild inflammatory stranding surrounding the pancreas is present. There is no pseudocyst. No ductal dilation. SPLEEN: Unremarkable. ADRENALS: Unremarkable. No mass. KIDNEYS AND URETERS: Few right renal cysts are present. There is no hydronephrosis or hydroureter of either kidney. No obstructing renal or ureteral calculus is seen. Nonspecific perinephric stranding is present bilaterally. STOMACH AND BOWEL: The stomach is decompressed. The small bowel is normal in caliber. Minimal stool is present throughout colon. There is no mucosal thickening or evidence of bowel obstruction. PELVIS: APPENDIX: The appendix is normal in caliber without surrounding inflammation. BLADDER: Unremarkable. No stones. REPRODUCTIVE: Unremarkable as visualized. ABDOMEN and PELVIS: INTRAPERITONEAL SPACE: Unremarkable. No free air. No significant fluid collection. BONES/JOINTS: Multilevel degenerative change of the spine is present. SOFT TISSUES: There are small bilateral fat containing inguinal hernias. VASCULATURE: Minimal atherosclerosis of the vasculature is present. No abdominal aortic aneurysm. LYMPH NODES: Unremarkable. No enlarged lymph nodes. IMPRESSION: 1. Findings suggest a very mild pancreatitis. Correlation with patient's laboratory values is recommended. 2. Chronic findings as detailed above. ABUS: COMPARISON: None. TECHNIQUE: Real-time sonographic images of the gallbladder were obtained using a curved multihertz transducer. FINDINGS: Liver: The visualized liver has normal contour and echogenicity. Hepatopedal flow in the portal vein. Findings confirmed with color and spectral Doppler imaging. The common bile duct measures 0.3 cm. Gallbladder: Mild wall thickening. No shadowing gallstones. Lorenzo's sign not provided. No pericholecystic fluid. IMPRESSION: 1. No cholelithiasis. 2. Mild gallbladder wall thickening. This could be related to underdistention. Physical exam: Patient alert, cooperative. Heart: Regular rate rhythm Lungs: Clear to auscultation currently on room air. Abdomen: No abdominal pain Extremities: No swelling to the lower extremities. Impression: Acute alcoholic pancreatitis Chronic alcoholic cardiomyopathy Chronic systolic congestive heart failure Acute on CKD 3 Hypertension Gout Hyperlipidemia Alcohol abuse COVID-positive asymptomatic Plan Acute alcoholic pancreatitis: Patient doing well. Patient tolerating diet. We will plan for discharge today. Recommend alcohol cessation at discharge. Patient plans to quit. Follow-up with PCP and GI as an outpatient. Chronic alcoholic cardiomyopathy: Overall stable. Recent ejection fraction around 70%. Continue with amiodarone and metoprolol. Chronic systolic congestive heart failure: Continue metoprolol and Entresto Acute on CKD 3: Overall stable. Hypertension: Continue home medication metoprolol 12.5 mg 1 pill twice daily. Will monitor and adjust medication. Gout: We will monitor closely Hyperlipidemia: Restart home medication probably tomorrow Alcohol abuse: Alcohol cessation addressed in detail. Patient plans to quit. COVID positive asymptomatic: We will monitor this closely. Patient without any major symptoms. DVT prophylaxis: Heparin CODE STATUS: Full code Advance care [id number] minutes: Home at discharge Time Spent Managing Pts Care (In Minutes): 55
[2021-09-06] MEDS ORDERED: METHYLPREDNISOLONE 40 MG INJ IV ONE (06:51)
[2021-09-06] MEDS: METOPROLOL TAR 25 MG TAB PO SCH (07:21)
[2021-09-06] MEDS ORDERED: INFLUENZA VACCINE (for 6+ mo) 0.5 ML DOSE IMVAC ONE (08:00)
[2021-09-06] MEDS ORDERED: PNEUMOCOCCAL VACCINE 0.5 ML IMVAC ONE (08:00)
[2021-09-06] MEDS ORDERED: THIAMINE 200 MG/2 ML INJ IVP SCH (09:00)
[2021-09-06] MEDS ORDERED: HOME MED 1 EA UNK (Cetirizine Hcl [Zyrtec] 10 MG Capsule) PO SCH (09:00)
[2021-09-06] MEDS ORDERED: CETIRIZINE HCL 5 MG TABLET PO SCH (09:00)
[2021-09-06] MEDS: FOLIC ACID 1 MG in NA CHLORIDE 0.9% 50 ML IV SCH (09:59)
[2021-09-06] MEDS: PANTOPRAZOLE 40 MG INJ IVP SCH (10:05)
[2021-09-06] MEDS: AMIODARONE HCL 200 MG TAB PO SCH (10:05)
[2021-09-06] MEDS: SACUBITRIL/VALSARTAN 49/51 MG TAB PO SCH (10:06)
[2021-09-06 13:18] VITALS: BP 133/85; TEMP 98.2
--- NOTE | 2021-09-06 13:26 | P.DS ---
Admission Date: 09/04/21 Discharge Date: 09/06/21 Primary Care Provider: Kristal Duran NP Disposition: ROUTINE DISCHARGE Discharge Condition: GOOD Reason for Admission: Abdominal pain Consultations: Nephrology-Dr. Rossi Procedures: COVID: Positive CT Abdomen: COMPARISON: CT ABDOMEN PELVIS dated Jan 16 2021 FINDINGS: LUNG BASES: Unremarkable. No mass. No consolidation. HEART: The heart is enlarged. ABDOMEN: LIVER: The liver is enlarged and mildly fatty. GALLBLADDER AND BILE DUCTS: No calcified stones. No ductal dilation. PANCREAS: Mild inflammatory stranding surrounding the pancreas is present. There is no pseudocyst. No ductal dilation. SPLEEN: Unremarkable. ADRENALS: Unremarkable. No mass. KIDNEYS AND URETERS: Few right renal cysts are present. There is no hydronephrosis or hydroureter of either kidney. No obstructing renal or ureteral calculus is seen. Nonspecific perinephric stranding is present bilaterally. STOMACH AND BOWEL: The stomach is decompressed. The small bowel is normal in caliber. Minimal stool is present throughout colon. There is no mucosal t hickening or evidence of bowel obstruction. PELVIS: APPENDIX: The appendix is normal in caliber without surrounding inflammation. BLADDER: Unremarkable. No stones. REPRODUCTIVE: Unremarkable as visualized. ABDOMEN and PELVIS: INTRAPERITONEAL SPACE: Unremarkable. No free air. No significant fluid collection. BONES/JOINTS: Multilevel degenerative change of the spine is present. SOFT TISSUES: There are small bilateral fat containing inguinal hernias. VASCULATURE: Minimal atherosclerosis of the vasculature is present. No abdominal aortic aneurysm. LYMPH NODES: Unremarkable. No enlarged lymph nodes. IMPRESSION: 1. Findings suggest a very mild pancreatitis. Correlation with patient's laboratory values is recommended. 2. Chronic findings as detailed above. ABUS: COMPARISON: None. TECHNIQUE: Real-time sonographic images of the gallbladder were obtained using a curved multihertz transducer. FINDINGS: Liver: The visualized liver has normal contour and echogenicity. Hepatopedal flow in the portal vein. Findings confirmed with color and spectral Doppler imaging. The common bile duct measures 0.3 cm. Gallbladder: Mild wall thickening. No shadowing gallstones. Lorenzo's sign not provided. No pericholecystic fluid. IMPRESSION: 1. No cholelithiasis. 2. Mild gallbladder wall thickening. This could be related to underdistention. Medical Problem List: Acute alcoholic pancreatitis Chronic alcoholic cardiomyopathy Chronic systolic congestive heart failure Acute on CKD 3 Hypertension Gout Hyperlipidemia Alcohol abuse COVID-positive asymptomatic GERD Brief History of Present Illness: 61-year-old -Citizen Of [place] male presented to the ER with abdominal pain. Patient found to have recurrent alcoholic pancreatitis. Patient admitted for treatment. Hospital Course: Patient presented with abdominal pain secondary to acute alcoholic recurrent pancreatitis. Patient has had pancreatitis in the past related to alcohol use. Patient admits to alcohol use. Patient received IV fluids with improvement. His diet was advanced. Patient now tolerating soft diet. At discharge patient will continue with a soft diet and then transition to heart healthy. Recommend alcohol cessation. Patient plans to quit entirely. Patient understands that if he continues to drink alcohol recurrent pancreatitis may recur. Education on pancreatitis provided. Recommend follow-up with PCP in 1 week to follow-up his hospitalization. Recommend follow-up with GI as an outpatient to further address and manage. Patient with chronic alcoholic cardiomyopathy and chronic systolic congestive heart failure. Overall this has remained stable. At discharge patient will continue with his current medications of Entresto 49/51 mg 1 pill twice daily, amiodarone 200 mg daily, Lipitor 40 mg daily, and metoprolol 25 mg 1 pill twice daily. Patient not on chronic anticoagulation therapy. Recommend to continue 1500 cc/day fluid restriction and low-salt diet. Recommend to monitor his weight daily. If his weight increases by more than 5 pounds further adjustment in medication may be required. This can be done with the help of his PCP or cardiology. Recommend follow-up with cardiology to further monitor his condition. Patient with acute on chronic renal disease stage III. Patient was seen by nephrology. No intervention required. Overall stable at this time. As mentioned above patient with hypertension. Overall stable. At discharge patient will continue with metoprolol 25 mg 1 pill twice daily. Recommend to maintain blood pressure less than 130/80. Further chest pain can be done by his PCP. Patient with hyperlipidemia. At discharge patient will continue with Lipitor 40 mg daily. Patient with gout. Patient had mild gout attack to the left knee. Patient given Solu-Medrol. At discharge patient will continue with prednisone 10 mg da concha for 7 days. Patient may restart his allopurinol after that time. Patient with alcohol abuse. Alcohol cessation addressed in detail. Patient plans to quit. Patient was positive for COVID. Patient asymptomatic. No major symptoms at this time. Continue with COVID recommendations. Patient with allergic rhinitis. At discharge patient will continue with Zyrtec 10 mg daily. Patient also with neuropathy pain. Patient takes gabapentin 100 mg daily. Patient with underlying GERD. At discharge will recommend to start Protonix 40 mg daily. Vital Signs/Physical Exam: Temp Pulse Resp BP Pulse Ox 98.2 F 63 18 133/85 97 09/06/21 13:18 09/06/21 13:18 09/06/21 13:18 09/06/21 13:18 09/06/21 13:18 General: Alert, In no apparent distress, Oriented x3, Cooperative HEENT: Atraumatic Neck: Supple Respiratory: Clear to auscultation bilaterally, Normal air movement Cardiovascular: Normal pulses, Regular rate/rhythm Gastrointestinal: Normal bowel sounds, Soft and benign, No tenderness, No jay s, No rebound, No guarding Musculoskeletal: No erythema, No tenderness, No warmth Integumentary: No tenderness/swelling, No erythema, No warmth, No cyanosis Neurological: Normal speech, Normal strength at 5/5 x4 extr, Normal tone, Normal affect Laboratory Data at Discharge: WBC 7.10 K/uL (4.3-10.9) 09/05/21 03:00 Hgb 14.9 g/dL (13.6-17.9) 09/05/21 03:00 Hct 45.8 % (39.6-49.0) 09/05/21 03:00 Plt Count 181 K/uL (152-406) 09/05/21 03:00 Sodium 137 mmol/L (136-145) 09/06/21 02:56 Potassium 4.6 mmol/L (3.5-5.1) 09/06/21 02:56 BUN 21 mg/dL (7-18) H 09/06/21 02:56 Creatinine 2.14 mg/dL (0.55-1.3) H 09/06/21 02:56 Glucose 110 mg/dL (74-106) H 09/06/21 02:56 Magnesium 1.9 mg/dL (1.8-2.4) 09/06/21 02:56 Total Bilirubin 1.4 mg/dL (0.2-1.0) H 09/06/21 02:56 AST 44 U/L (15-37) H 09/06/21 02:56 ALT 40 U/L (12-78) 09/06/21 02:56 Alkaline Phosphatase 62 U/L (45-117) 09/06/21 02:56 Triglycerides 94 mg/dL (<150) 09/04/21 03:03 Cholesterol 194 mg/dL (<200) 09/04/21 03:03 HDL Cholesterol 69 mg/dL (40-60) H 09/04/21 03:03 Cholesterol/HDL Ratio 2.81 09/04/21 03:03 Amylase 318 U/L (25-115) H* 09/04/21 03:03 Lipase Cancelled 09/06/21 07:00 Home Medications: Metoprolol Tartrate 1 tab PO BID 01/18/21 Amiodarone HCl [Pacerone] 1 tab PO DAILY 09/05/21 Atorvastatin Calcium 1 tab PO DAILY 09/05/21 Cetirizine HCl [Zyrtec] 1 cap PO DAILY 09/05/21 Gabapentin 1 cap PO DAILY 09/05/21 Sacubitril/Valsartan [Entresto 49 mg-51 mg Tablet] 1 tab PO BID 09/05/21 Pantoprazole [Protonix Tab] 40 mg PO DAILY #30 tab 09/06/21 predniSONE [Deltasone*] 10 mg PO DAILY #7 tab 09/06/21 New Medications: predniSONE [Deltasone*] 10 mg PO DAILY #7 tab Pantoprazole [Protonix Tab] 40 mg PO DAILY #30 tab Physician Discharge Instructions: Patient presented with abdominal pain secondary to acute alcoholic recurrent pancreatitis. Patient has had pancreatitis in the past related to alcohol use. Patient admits to alcohol use. Patient received IV fluids with improvement. His diet was advanced. Patient now tolerating soft diet. At discharge patient will continue with a soft diet and then transition to heart healthy. Recommend alcohol cessation. Patient plans to quit entirely. Patient understands that if he continues to drink alcohol recurrent pancreatitis may recur. Education on pancreatitis provided. Recommend follow-up with PCP in 1 week to follow-up his hospitalization. Recommend follow-up with GI as an outpatient to further address and manage. Patient with chronic alcoholic cardiomyopathy and chronic systolic congestive heart failure. Overall this has remained stable. At discharge patient will continue with his current medications of Entresto 49/51 mg 1 pill twice daily, amiodarone 200 mg daily, Lipitor 40 mg daily, and metoprolol 25 mg 1 pill twice daily. Patient not on chronic anticoagulation therapy. Recommend to continue 1500 cc/day fluid restriction and low-salt diet. Recommend to monitor his weight daily. If his weight increases by more than 5 pounds further adjustment in medication may be required. This can be done with the help of his PCP or cardiology. Recommend follow-up with cardiology to further monitor his condition. Patient with acute on chronic renal disease stage III. Patient was seen by nephrology. No intervention required. Overall stable at this time. As mentioned above patient with hypertension. Overall stable. At discharge patient will continue with metoprolol 25 mg 1 pill twice daily. Recommend to maintain blood pressure less than 130/80. Further chest pain can be done by his PCP. Patient with hyperlipidemia. At discharge patient will continue with Lipitor 40 mg daily. Patient with gout. Patient had mild gout attack to the left knee. Patient given Solu-Medrol. At discharge patient will continue with prednisone 10 mg daily for 7 days. Patient may restart his allopurinol after that time. Patient with alcohol abuse. Alcohol cessation addressed in detail. Patient plans to quit. Patient was positive for COVID. Patient asymptomatic. No major symptoms at this time. Continue with COVID recommendations. Patient with allergic rhinitis. At discharge patient will continue with Zyrtec 10 mg daily. Patient also with neuropathy pain. Patient takes gabapentin 100 mg daily. Patient with underlying GERD. At discharge will recommend to start Protonix 40 mg daily. Diet: Soft Activity: Ad pelon Followup: CONCHITA DURAN [Primary Care Provider] - Time spent managing pt's care (in minutes): 55
--- NOTE | 2021-09-06 20:58 | P.PN ---
Date of Service: 09/06/21 Vital Signs Temp Pulse Resp BP Pulse Ox 98.2 F 63 18 133/85 97 09/06/21 13:18 09/06/21 13:18 09/06/21 13:18 09/06/21 13:18 09/06/21 13:18 Assessment/ Plan: Nephrology No dyspnea No chest pain Feeling better. Good urine output. No acute events overnight Vitals, medications, blood work and imaging reviewed in the chart General: Oriented x3, Cooperative HEENT: Atraumatic Neck: Supple Respiratory: Clear to auscultation bilaterally, Normal air movement Cardiovascular: No edema, Regular rate/rhythm Gastrointestinal: Non-distended, Tenderness Musculoskeletal: No clubbing, No contractures Integumentary: No rashes, No cyanosis Neurological: Normal speech Laboratory Data (last 24 hrs) 09/03/21 22:52: WBC 7.00, Hgb 16.7, Hct 51.7 H, Plt Count 199 09/03/21 22:52: Sodium 143, Potassium 4.5, BUN 21 H, Creatinine 2.13 H, Glucose 134 H, Total Bilirubin 1.4 H, AST 58 H, ALT 48, Alkaline Phosphatase 77, Lipase 5103 H Imagings Data: EXAM DESCRIPTION: US - Abdomen Exam Limited - 09/04/2021 12:11 am CLINICAL HISTORY: ABD PAIN COMPARISON: None. TECHNIQUE: Real-time sonographic images of the gallbladder were obtained using a curved multihertz transducer. FINDINGS: Liver: The visualized liver has normal contour and echogenicity. Hepatopedal flow in the portal vein. Findings confirmed with color and spectral Doppler imaging. The common bile duct measures 0.3 cm. Gallbladder: Mild wall thickening. No shadowing gallstones. Lorenzo's sign not provided. No pericholecystic fluid. IMPRESSION: 1. No cholelithiasis. 2. Mild gallbladder wall thickening. This could be related to under distention. EXAM DESCRIPTION: CT - Abdomen Pelvis Wo Contrast - 09/04/2021 6:46 am CLINICAL HISTORY: The patient is 61 years old and is Male; MID abdominal pain, nausea and vomiting TECHNIQUE: Axial computed tomography images of the abdomen and pelvis without intravenous contrast. Sagittal and coronal reformatted images were created and reviewed. This CT exam was performed using one or more of the following dose reduction techniques: automated exposure control, adjustment of the mA and/or kV according to patient size, and/or use of iterative reconstruction technique. COMPARISON: CT ABDOMEN PELVIS dated Jan 16 2021 FINDINGS: LUNG BASES: Unremarkable. No mass. No consolidation. HEART: The heart is enlarged. ABDOMEN: LIVER: The liver is enlarged and mildly fatty. GALLBLADDER AND BILE DUCTS: No calcified stones. No ductal dilation. PANCREAS: Mild inflammatory stranding surrounding the pancreas is present. There is no pseudocyst. No ductal dilation. SPLEEN: Unremarkable. ADRENALS: Unremarkable. No mass. KIDNEYS AND URETERS: Few right renal cysts are present. There is no hydronephrosis or hydroureter of either kidney. No obstructing renal or ureteral calculus is seen. Nonspecific perinephric stranding is present bilaterally. STOMACH AND BOWEL: The stomach is decompressed. The small bowel is normal in caliber. Minimal stool is present throughout colon. There is no mucosal thickening or evidence of bowel obstruction. PELVIS: APPENDIX: The appendix is normal in caliber without surrounding inflammation. BLADDER: Unremarkable. No stones. REPRODUCTIVE: Unremarkable as visualized. ABDOMEN and PELVIS: INTRAPERITONEAL SPACE: Unremarkable. No free air. No significant fluid collection. BONES/JOINTS: Multilevel degenerative change of the spine is present. SOFT TISSUES: There are small bilateral fat containing inguinal hernias. VASCULATURE: Minimal atherosclerosis of the vasculature is present. No abdominal aortic aneurysm. LYMPH NODES: Unremarkable. No enlarged lymph nodes. IMPRESSION: 1. Findings suggest a very mild pancreatitis. Correlation with patient's laboratory values is recommended. 2. Chronic findings as detailed above. Conclusions/Impression: BRIDGER likely due to chronic Aleve complicated by pancreatitis CKD III -No NSAIDs -Continue IVF Acidosis HTN with CKD/ CHF -Continue metoprolol Diastolic CHF, chronic LVEF 70% Alcoholic cardiomyopathy -Continue Metoprolol IFG -Low sugar diet Moderate malnutrition -Advance diet as tolerated Gout Alcoholic pancreatitis -NPO at this time -Continue IVF -Continue Thiamine and Folic Acid Atherosclerosis of the aorta COVID-19 -Monitor status
== END 2021-09-06 14:19 | disposition home or self-care (01) | DRG 438 ==
LOC: ER 22:18 → ERHOLD 09-04 01:57 → 4TH 09-04 20:03
PROVIDERS: ADMIT Family Medicine; ATTEND Family Medicine
DX: K85.20 Alcohol induced acute pancreatitis without necrosis or infection (principal); U07.1 COVID-19; I50.22 Chronic systolic (congestive) heart failure; I13.0 Hypertensive heart and chronic kidney disease with heart failure and stage 1 through stage 4 chronic kidney disease, or unspecified chronic kidney disease; I42.6 Alcoholic cardiomyopathy; E87.2 Acidosis; E44.1 Mild protein-calorie malnutrition; N18.32 Chronic kidney disease, stage 3b; F10.10 Alcohol abuse, uncomplicated; E78.5 Hyperlipidemia, unspecified; I70.0 Atherosclerosis of aorta; J30.9 Allergic rhinitis, unspecified; G62.9 Polyneuropathy, unspecified; K21.9 Gastro-esophageal reflux disease without esophagitis; M10.9 Gout, unspecified; R73.01 Impaired fasting glucose; Z68.28 Body mass index [BMI] 28.0-28.9, adult; Z86.73 Personal history of transient ischemic attack (TIA), and cerebral infarction without residual deficits; Z88.0 Allergy status to penicillin; Z79.899 Other long term (current) drug therapy; Z95.5 Presence of coronary angioplasty implant and graft; Z23 Encounter for immunization
CPT/HCPCS: 36415; 74176; 76705; 80048; 80053; 80061; 80076; 81003; 81015; 82150; 82728; 83690; 83735; 85025; 86140; 90471; 90732; 94760; 96374; 96375; 99285; C9113; J0360; J1170; J2405; J2920; J3411; J7030; Q2035; U0003

== ENCOUNTER 2022-01-09 17:25 | Inpatient (IN) | payer MEDICARE, OTHER ==
--- OUTSIDE RECORDS SUMMARY | 2022-01-09 17:27 | XMS REPORT | Continuity of Care Document ---
:1960 Author Organization [facility] t Address [address] [place] [address] Care Team Providers Name Role Phone Unavailable [...] Clinicians Facility Department ID 2021-05-27 Inpatient UR [facility] Gastro [id number] [facility] 02:33:30 [facility] Results This patient has no known results.
[2022-01-09 18:08] LABS: Absolute Lymphocytes (CBC) 1.3 K/uL (0.7-4.9); Hematocrit 49.5 % (39.6-49.0); Lymphocytes % 14.8 % (15.3-44.8); RBC Red Blood Cell Count 5.54 M/uL (4.33-5.43)
[2022-01-09 18:42] LABS: Albumin 3.5 g/dL (3.4-5.0); Bilirubin Total 1.2 mg/dL (0.2-1.0); Potassium 4.3 mmol/L (3.5-5.1); Protein, Total 9.1 g/dL (6.4-8.2)
--- NOTE | 2022-01-09 19:29 | RAD REPORT ---
EXAM DESCRIPTION: CT - Abdomen Pelvis Wo Contrast - 01/09/2022 7:21 pm CLINICAL HISTORY: Abdominal pain, acute, nonlocalized COMPARISON: Abdomen Pelvis Wo Contrast dated 09/03/2021 TECHNIQUE: Axial [address] imaging of the abdomen and pelvis was performed without IV contrast. No IV contrast was given because of allergy, abnormal renal function, patient refusal or physician re quest. No oral contrast administered. All CT scans are performed using dose optimization technique as appropriate and may include automated exposure control or mA/KV adjustment according to patient size. FINDINGS: No suspicious findings in the lung bases. Liver shows no focal abnormality. Attenuation is borderline to mildly fatty infiltrated. No splenomeg janine or focal splenic finding. Gallbladder and biliary tree are also without suspicious finding. No solid or cystic mass within the pancreatic parenchyma. There is edematous/inflammatory stranding a djacent to the tail and left lateral body of the pancreas. This is a pattern typical for mild pancrea titis. There is very minimal stranding along the anterior renal fascia on the left. No hydronephrosis or suspicious renal mass. No significant adrenal finding. Isodense renal masses an d pyelonephritis cannot be excluded in the absence of IV contrast. The urinary bladder is without sig nificant finding. No dilated bowel loops or bowel wall thickening. Stomach and duodenum do not appear to be secondarily involved the pancreatitis. No free air, free fluid or pneumatosis. Other site inflammatory stranding . No mass or bulky lymphadenopathy. Bilateral fat filled hernias are present. Disc and bone degenerative changes are present. Prominent facet joint degenerative changes are presen t. Most lumbar level is sacralized labeled L5 for the purposes of this study. L3-4 central spinal troy nosis present with probable L2-3 spinal stenosis is well. IMPRESSION: Mild pancreatitis. No pseudocyst, abscess or other complication. Borderline to mild fatty infiltration of the liver. No focal liver lesion on noncontrast imaging. Advanced mid and lower lumbar disc and bone degenerative change with 2 level central spinal stenosis. Full assessment is limited is the absence of IV contrast.
--- NOTE | 2022-01-09 19:38 | ER ---
Nurse's Notes [facility] Name: Natan Paulino Sr Age: 61 yrs Sex: Male : 1960 Arrival Date: 01/09/2022 Time: 17:27 Bed 25 Private MD: Diagnosis: Acute pancreatitis without necrosis or infection, unspecified Presentation: 01/09 17:50 Chief complaint: Chief complaint: Patient states: upper abd pain and abdominal swelling aa5 that began yesterday. Pt reports hx of pancreatitis. Denies nausea/vomiting/diarrhea. 17:50 Coronavirus screen: At this time, the client does not indicate any symptoms associated aa5 with coronavirus-19. Ebola Screen: No symptoms or risks identified at this time. Initial Sepsis Screen: Does the patient meet any 2 criteria? No. Patient's initial sepsis screen is negative. Does the patient have a suspected source of infection? No. Patient's initial sepsis screen is negative. Risk Assessment: Do you want to hurt yourself or someone else? Patient reports no desire to harm self or others. Onset of symptoms was December 2021. 17:50 Acuity: NINO 3 aa5 17:50 Method Of Arrival: Ambulatory aa5 Historical: - Allergies: 17:50 PENICILLINS; aa5 - PMHx: 17:50 CHF; Gout; Hypertension; osteoarthritis; Pancreatitis; Rheumatoid Arthritis; TIA; aa5 - PSHx: 17:50 Stented artery; aa5 18:07 heart stent; aa5 - Immunization history:: Adult Immunizations unknown. - Social history:: Smoking status: Patient denies any tobacco usage or history of. Screenin:41 Abuse screen: Denies threats or abuse. Nutritional screening: No deficits noted. ag7 Tuberculosis screening: No symptoms or risk factors identified. Fall Risk No fall in past 12 months (0 pts). No secondary diagnosis (0 pts). IV access (20 points). Ambulatory Aid- None/Bed Rest/Nurse Assist (0 pts). Gait- Normal/Bed Rest/Wheelchair (0 pts) Mental Status- Oriented to own ability (0 pts). Total Harrell Fall Scale indicates No Risk (0-24 pts). Assessment: 18:45 Reassessment: Dr. Jha notified of critical lab values. Amylase 378, Lipase 3616. ss 19:40 General: Appears in no apparent distress. Behavior is calm, cooperative, appropriate ag7 for age. Pain: Complains of pain in epigastric area Pain does not radiate. Pain currently is 10 out of 10 on a pain scale. Quality of pain is described as crampy, Pain began suddenly, Is continuous, Alleviated by nothing. Neuro: Level of Consciousness is awake, alert, obeys commands, Oriented to person, place, time, situation, Appropriate for age. Cardiovascular: Heart tones S1 S2 present. Respiratory: Airway is patent Trachea midline Respiratory effort is even, unlabored, Respiratory pattern is regular, symmetrical, Breath sounds are clear bilaterally. GI: Abdomen is round distended, Bowel sounds present X 4 quads. Abd is non tender. 21:26 Reassessment: Patient and/or family updated on plan of care and expected duration. Pain ag7 level reassessed. Patient is alert, oriented x 3, equal unlabored respirations, skin warm/dry/pink. abd pain 5/10 epigastric Patient states feeling better. Patient states symptoms have improved. Vital Signs: 18:00 BP 174 / 119; Pulse 76; Resp 18; Temp 97.9(O); Pulse Ox 100% on R/A; Weight 113.4 kg mb7 (R); Height 6 ft. 3 in. (190.50 cm) (R); 19:26 BP 180 / 130; Pulse 73; Resp 16 S; Pulse Ox 98% ; Pain 10/10; ag7 20:20 Pain 5/10; ag7 20:25 BP 180 / 118; Pulse 71; Resp 16 S; Pulse Ox 100% on R/A; Pain 10/10; ag7 18:00 Body Mass Index 31.25 (113.40 kg, 190.50 cm) mb7 ED Course: 17:27 Patient arrived in ED. rg4 17:59 Amylase, Serum Sent. mb7 17:59 CBC with Diff Sent. mb7 17:59 CMP Sent. mb7 17:59 Lipase Sent. mb7 17:59 Inserted saline lock: 20 gauge in left upper arm, using aseptic technique. Blood mb7 collected. 17:59 Patient has correct armband on for positive identification. mb7 18:07 Triage completed. aa5 19:13 Manuel Kruse MD is Attending Physician. kdr 19:16 COVID-19 SARS RT PCR (Document "Date of Onset" if Symptomatic) Sent. tw5 19:21 Abdomen In Process Unspecified. EDMS 19:27 Odalis Solomon, RADHIKA is Primary Nurse. ag7 19:36 Bill Jha MD is Hospitalizing Provider. kdr 19:41 Patient notified of wait time. ag7 21:27 No provider procedures requiring assistance completed. Patient admitted, IV remains in ag7 place. Administered Medications: 19:39 Drug: NS 0.9% 1000 ml Route: IV; Rate: 1 bolus; Site: left antecubital; ag7 21:25 Follow up: IV Status: Completed infusion; IV Intake: 1000ml ag7 19:51 Drug: Dilaudid (HYDROmorphone) 1 mg Route: IVP; Site: left antecubital; ag7 20:20 Follow up: Pain 5/10 Adult; Response: No adverse reaction; Marked relief of symptoms ag7 19:51 Drug: Zofran (Ondansetron) 4 mg Route: IVP; Site: left antecubital; ag7 20:20 Follow up: Response: No adverse reaction ag7 Medication: 19:41 VIS not applicable for this client. ag7 Intake: 21:25 IV: 1000ml; Total: 1000ml. ag7 Outcome: 19:37 Decision to Hospitalize by Provider. kdr 21:27 Admitted to Med/surg accompanied by tech, room 204, with chart. ag7 21:27 Condition: stable 21:39 Patient left the ED. ag7 Signatures: Dispatcher [employer] EDMS Manuel Kruse MD MD kdr Calderon, Audri RN RADHIKA [email or web address] Valery Chowdhury RN RN ss Garcia, Rubi rg4 Maeve Morales [facility] 7 Odalis Solomon, RN RN ag7 Corrections: (The following items were deleted from the chart) 18:07 17:59 Chief complaint: aaJose D aaJose D
--- NOTE | 2022-01-09 19:38 | EDPHYS ---
Physician Documentation [facility] Name: Natan Paulino Sr Age: 61 yrs Sex: Male : 1960 Arrival Date: 01/09/2022 Time: 17:27 Bed 25 Private MD: ED Physician Manuel Kruse HPI: 01/10 09:11 This 61 yrs old Black Male presents to ER via Ambulatory with complaints of Abdominal kdr Pain. 09:11 The patient presents with abdominal pain in the upper abdomen. kdr 09:12 Onset: The symptoms/episode began/occurred yesterday. The symptoms do not radiate. kdr Associated signs and symptoms: none. The symptoms are described as achy, crampy, vague. Modifying factors: The symptoms are alleviated by nothing, the symptoms are aggravated by nothing. Severity of pain: At its worst the pain was mild moderate in the emergency department the pain is unchanged. The patient has not experienced similar symptoms in the past. Historical: - Allergies: 01/09 17:50 PENICILLINS; aa5 - PMHx: 17:50 CHF; Gout; Hypertension; osteoarthritis; Pancreatitis; Rheumatoid Arthritis; TIA; aa5 - PSHx: 17:50 Stented artery; aa5 18:07 heart stent; aa5 - Immunization history:: Adult Immunizations unknown. - Social history:: Smoking status: Patient denies any tobacco usage or history of. ROS: 01/10 09:12 Constitutional: Negative for fever, chills, and weight loss, Eyes: Negative for injury, kdr pain, redness, and discharge, ENT: Negative for injury, pain, and discharge, Neck: Negative for injury, pain, and swelling, Cardiovascular: Negative for chest pain, palpitations, and edema, Respiratory: Negative for shortness of breath, cough, wheezing, and pleuritic chest pain, Back: Negative for injury and pain, : Negative for injury, bleeding, discharge, and swelling, MS/Extremity: Negative for injury and deformity, Skin: Negative for injury, rash, and discoloration, Neuro: Negative for headache, weakness, numbness, tingling, and seizure activity. Psych: Negative for depression, anxiety, suicide ideation, homicidal ideation, and hallucinations, Allergy/Immunology: Negative for hives, rash, and allergies, Endocrine: Negative for neck swelling, polydipsia, polyuria, polyphagia, and marked weight changes, Hematologic/Lymphatic: Negative for swollen nodes, abnormal bleeding, and unusual bruising. Abdomen/GI: Positive for abdominal pain, Negative for nausea, vomiting, and diarrhea, nausea, vomiting, diarrhea, constipation, abdominal cramps, abdominal distension, anorexia, dysphagia, hematemesis, black/tarry stool, rectal pain, rectal bleeding, bowel incontinence. Exam: 09:12 Constitutional: This is a well developed, well nourished patient who is awake, alert, kdr and in no acute distress. Head/Face: Normocephalic, atraumatic. Eyes: Pupils equal round and reactive to light, extra-ocular motions intact. Lids and lashes normal. Conjunctiva and sclera are non-icteric and not injected. Cornea within normal limits. Periorbital areas with no swelling, redness, or edema. Neck: Trachea midline, no thyromegaly or masses palpated, and no cervical lymphadenopathy. Supple, full range of motion without nuchal rigidity, or vertebral point tenderness. No Meningismus. Chest/axilla: Normal chest wall appearance and motion. Nontender with no deformity. No lesions are appreciated. Cardiovascular: Regular rate and rhythm with a normal S1 and S2. No gallops, murmurs, or rubs. Normal PMI, no JVD. No pulse deficits. Respiratory: Lungs have equal breath sounds bilaterally, clear to auscultation and percussion. No rales, rhonchi or wheezes noted. No increased work of breathing, no retractions or nasal flaring. Back: No spinal tenderness. No costovertebral tenderness. Full range of motion. Skin: Warm, dry with normal turgor. Normal color with no rashes, no lesions, and no evidence of cellulitis. MS/ Extremity: Pulses equal, no cyanosis. Neurovascular intact. Full, normal range of motion. Neuro: Awake and alert, GCS 15, oriented to person, place, time, and situation. Cranial nerves II-XII grossly intact. Motor strength 5/5 in all extremities. Sensory grossly intact. Cerebellar exam normal. Normal gait. Psych: Awake, alert, with orientation to person, place and time. Behavior, mood, and affect are within normal limits. 09:12 Abdomen/GI: Inspection: abdomen appears normal, Bowel sounds: active, Palpation: soft, mild abdominal tenderness, in the epigastric area, right upper quadrant and left upper quadrant. Vital Signs: 01/09 18:00 BP 174 / 119; Pulse 76; Resp 18; Temp 97.9(O); Pulse Ox 100% on R/A; Weight 113.4 kg mb7 (R); Height 6 ft. 3 in. (190.50 cm) (R); 19:26 BP 180 / 130; Pulse 73; Resp 16 S; Pulse Ox 98% ; Pain 10/10; ag7 20:20 Pain 5/10; ag7 20:25 BP 180 / 118; Pulse 71; Resp 16 S; Pulse Ox 100% on R/A; Pain 10/10; ag7 18:00 Body Mass Index 31.25 (113.40 kg, 190.50 cm) [facility] MDM: 19:37 Patient medically screened. kdr 01/10 09:12 Data reviewed: vital signs, nurses notes, lab test result(s), radiologic studies. kdr Counseling: I had a detailed discussion with the patient and/or guardian regarding: the historical points, exam findings, and any diagnostic results supporting the discharge/admit diagnosis, lab results, radiology results, the need for outpatient follow up. 01/09 17:50 Order name: CBC with Diff; Complete Time: 18:45 aa5 01/09 17:50 Order name: CMP; Complete Time: 18:45 aa5 01/09 17:50 Order name: Lipase; Complete Time: 18:45 aa5 01/09 17:50 Order name: Amylase, Serum; Complete Time: 18:45 aa5 01/09 18:48 Order name: COVID-19 SARS RT PCR (Document "Date of Onset" if Symptomatic); Complete la1 Time: :01/09 19:14 Order name: Lipid Profile; Complete Time: 21:08 la1 01/09 17:50 Order name: IV Saline Lock; Complete Time: 17:59 aa5 01/09 19:17 Order name: ETOH Level; Complete Time: 21:08 kdr 01/09 19:17 Order name: UDS kdr 01/09 19:21 Order name: Abdomen ; Complete Time: 19:35 EDMS 01/09 17:50 Order name: Labs collected and sent; Complete Time: 17:59 aa5 Administered Medications: 01/09 19:39 Drug: NS 0.9% 1000 ml Route: IV; Rate: 1 bolus; Site: left antecubital; ag7 21:25 Follow up: IV Status: Completed infusion; IV Intake: 1000ml ag7 19:51 Drug: Dilaudid (HYDROmorphone) 1 mg Route: IVP; Site: left antecubital; ag7 20:20 Follow up: Pain 5/10 Adult; Response: No adverse reaction; Marked relief of symptoms ag7 19:51 Drug: Zofran (Ondansetron) 4 mg Route: IVP; Site: left antecubital; ag7 20:20 Follow up: Response: No adverse reaction ag7 Disposition Summary: 01/09/22 19:37 Hospitalization Ordered Hospitalization Status: Inpatient Admission kdr Provider: Bill Jha kdr Location: Telemetry/MedSurg (Inpatient) kdr Condition: Fair kdr Problem: an acute exacerbation kdr Symptoms: have improved kdr Bed/Room Type: Standard kdr Room Assignment: 204(01/09/22 21:30) Diagnosis - Acute pancreatitis without necrosis or infection, unspecified kdr Forms: - Medication Reconciliation Form kdr - SBAR form kdr Signatures: Dispatcher [employer] EDMS Isidra Albright RN RN mw Manuel Kruse MD MD kdr Eddy Jha MD MD rn Shayy Johnson RN RN aa5 Denver Brown, SODA MAKER-C [employer]-Cla1 Odalis Solomon RN RN ag7 Corrections: (The following items were deleted from the chart) 19:21 17:56 Abdomen Pelvis W Con+CT.RAD.BRZ ordered. EDMS EDMS 21:30 19:37 kdr mw
[2022-01-09] MEDS ORDERED: NA CHLORIDE 0.9% 1,000 ML ONE (19:39)
[2022-01-09] MEDS ORDERED: ONDANSETRON 4 MG/2 ML VIAL ONE (19:51)
[2022-01-09] MEDS ORDERED: HYDROMORPHONE HCL 1 MG/ML INJ ONE (19:51)
--- NOTE | 2022-01-09 19:58 | P.HP ---
Certification for Inpatient Patient admitted to: Inpatient With expected LOS: >2 Midnights Patient will require the following post-hospital care: None Practitioner: I am a practitioner with admitting privileges, knowledge of patient current condition, hospital course, and medical plan of care. Services: Services provided to patient in accordance with Admission requirements found in Title 42 Section 412.3 of the Code of Federal Regulations Patient History Date of Service: 01/09/22 Reason for admission: Alcoholic pancreatitis History of Present Illness: 61-year-old male with history of alcoholic pancreatitis, chronic systolic congestive heart failure, alcoholic cardiomyopathy, CKD 3, hypertension, gout, hyperlipidemia presents emerged [place] for epigastric pain. Patient reports that he has been abstaining from alcohol since August of this year but yesterday drank about a pint of gin while watching a basketball game, his pain began last night worse throughout the day today. He was evaluated here in the emergency department found to have elevated amylase and lipase, mildly worsening creatinine is CT demonstrated mild pancreatitis without complicating factors and normal gallbladder. Lipid panel and EtOH level pending in the ER patient with severe abdominal pain requiring narcotic pain medications ED prior wishes to admit for further evaluation and management of acute alcohol induced pancreatitis Allergies Penicillins Allergy (Verified 05/03/20 05:24) Hives/Rash Home Medications: Metoprolol Tartrate 1 tab PO BID 01/18/21 Amiodarone HCl [Pacerone] 1 tab PO DAILY 09/05/21 Atorvastatin Calcium 1 tab PO DAILY 09/05/21 Cetirizine HCl [Zyrtec] 1 cap PO DAILY 09/05/21 Gabapentin 1 cap PO DAILY 09/05/21 Sacubitril/Valsartan [Entresto 49 mg-51 mg Tablet] 1 tab PO BID 09/05/21 Pantoprazole [Protonix Tab] 40 mg PO DAILY #30 tab 09/06/21 predniSONE [Deltasone*] 10 mg PO DAILY #7 tab 09/06/21 - Past Medical/Surgical History Diabetic: No -: Hypertension -: Systolic congestive heart failure secondary to alcoholic cardiomyopathy -: Alcoholic Pancreatitis -: TIA -: Gout -: CKD 3 -: Cardiac stent placement July 2019 -: removal of L 5th digit Psychosocial/ Personal History: Patient currently lives at home with his and is on disability due to heart condition. - Family History Father -: Cancer, Liver disease Notes: asbestos. exposure Mother Notes: mom is healthy - Social History Smoking Status: Never smoker Alcohol use: Yes CD- Drugs: No Caffeine use: Yes Place of Residence: Home Review of Systems 10-point ROS is otherwise unremarkable Gastrointestinal: Abdominal Pain, As per HPI Physical Examination - Physical Exam General: Alert, In no apparent distress, Oriented x3 HEENT: Atraumatic, PERRLA, Mucous membr. moist/pink, EOMI, Sclerae nonicteric Neck: Supple, 2+ carotid pulse no bruit, No LAD, Without JVD or thyroid abnormality Respiratory: Clear to auscultation bilaterally, Normal air movement Cardiovascular: Regular rate/rhythm, Normal S1 S2 Capillary refill: <2 Seconds Gastrointestinal: Normal bowel sounds, Tenderness (moderate epigastric/generalized abd tenderness), Guarding (voluntary guarding) Musculoskeletal: No tenderness Integumentary: No rashes Neurological: Normal speech, Normal strength at 5/5 x4 extr, Normal tone, Normal affect - Studies Laboratory Data (last 24 hrs) 01/09/22 17:57: Sodium 140, Potassium 4.3, BUN 26 H, Creatinine 2.32 H, Glucose 113 H, Total Bilirubin 1.2 H, AST 58 H, ALT 47, Alkaline Phosphatase 80, Amylase 378 H*, Lipase 3616 H 01/09/22 17:57: WBC 8.8, Hgb 16.5, Hct 49.5 H, Plt Count 213 Assessment and Plan - Plan Assessment: Acute alcohol induced pancreatitis BRIDGER on CKD 3 Chronic systolic congestive heart failure/alcoholic cardiomyopathy Hypertension Gout Hyperlipidemia Alcohol abuse GERD Plan: Acute alcohol induced pancreatitis: NPO, gentle IVF, PRN pain meds and anti- emetics. CT with mild pacnreatitis, gallbladder WNL. ETOH and lipid profile pending. Pt reports drinking a pint of gin yesterday, has otherwise abstained from ETOH, discussed need to avoid any and all alcohol. BRIDGER on CKD 3: Nephrology consulted, continue gently IVF given hx systolic CHF Chronic systolic congestive heart failure/alcoholic cardiomyopathy: Continue gentle IVF monitor for signs of overload. last echo 05/04/20 normal EF/wall motion. Hypertension: NPO, PRN meds. Continue home meds when appropriate Gout:Continue home meds when appropriate Hyperlipidemia:Continue home meds when appropriate Alcohol abuse: Discussed need for complete alcohol cessation patient verbalized understanding plans on monitoring any more GERD: Daily Protonix. DVT PPX: Lovenox Code status: Full Discharge Plan: Home Plan to discharge in: 72 Hours - Advance Directives Does patient have a Living Will: No Does patient have a Durable POA for Healthcare: Yes - Code Status/Comfort Care Code Status Assessed: Yes (Full code) Critical Care: No Time Spent Managing Pts Care (In Minutes): 55
[2022-01-09] MEDS ORDERED: SODIUM CHLORIDE 0.9% 10ML INJ IV PRN (21:46)
[2022-01-09] MEDS ORDERED: ONDANSETRON 4 MG/2 ML VIAL IV PRN ×2 (21:46)
[2022-01-09] MEDS ORDERED: HYDROMORPHONE HCL 1 MG/ML INJ IV ONE (22:49)
[2022-01-09] MEDS: NA CHLORIDE 0.9% 1,000 ML IV SCH (22:57)
[2022-01-09] MEDS: HEPARIN 5000 UNIT/ML 1 ML VIAL SQ SCH (22:57)
[2022-01-09] MEDS: HYDRALAZINE HCL 20 MG/ML VIAL IV PRN (23:23)
[2022-01-10 03:11] VITALS: BMI 31.2
[2022-01-10] MEDS: HYDROMORPHONE HCL 1 MG/ML INJ IV PRN ×4 (03:57→20:33)
[2022-01-10 04:07] LABS: Absolute Lymphocytes (CBC) 1.2 K/uL (0.7-4.9); Hematocrit 47.3 % (39.6-49.0); Lymphocytes % 15.1 % (15.3-44.8); MPV 9.2 fL (7.6-11.3); RBC Red Blood Cell Count 5.27 M/uL (4.33-5.43)
[2022-01-10 04:33] LABS: Albumin 3.2 g/dL (3.4-5.0); Potassium 4.3 mmol/L (3.5-5.1); Protein, Total 8.3 g/dL (6.4-8.2)
--- NOTE | 2022-01-10 06:39 | P.PN ---
Date of Service: 01/10/22 Subjective: slight improvement still requiring IV pain medication, no nausea/vomiting feels abdomen is bloated ROS: 10 point ROS as noted above, otherwise negative Physical exam GEN: Alert, oriented, NAD HEENT: Normal conjunctiva, sclera anicteric CV: Regular rate and rhythm, no edema Pulm: Nonlabored respirations on room air ABD: Soft, moderate epigastric tenderness to palpation, mild distention Integumentary: No rashes Neuro: Normal speech, normal affect Problem List Acute alcohol induced pancreatitis BRIDGER on CKD 3, secondary to dehydration, alcohol use Chronic systolic congestive heart failure/alcoholic cardiomyopathy Hypertension Gout Hyperlipidemia Alcohol abuse GERD ice chips ok, continue IVF, monitor fluid status advance slowly trend lipase BRIDGER improved; nephrology consulted continue home meds stool softener if tolerating PO VTE: lovenox Code: full Dispo: home, ~2 days Time Spent Managing Pts Care (In Minutes): 35
--- NOTE | 2022-01-10 07:19 | RAD REPORT ---
EXAM DESCRIPTION: RAD - Chest Single View - 01/10/2022 5:46 am CLINICAL HISTORY: R/O volume overload, hx CHF COMPARISON: Chest Pa And Lat (2 Views) dated 01/16/2021; Chest Single View dated 09/22/2020; Chest Sing le View dated 04/01/2020; Chest Single View dated 10/28/2019 FINDINGS: Lines: None. Lungs: No evidence of edema or pneumonia. Pleural: No significant pleural effusions or pneumothorax. Cardiac: The heart size is within normal limits. Bones: No acute fractures. Other: IMPRESSION: No acute cardiopulmonary disease.
[2022-01-10] MEDS: HEPARIN 5000 UNIT/ML 1 ML VIAL SQ SCH ×2 (08:16→20:35)
[2022-01-10] MEDS: PANTOPRAZOLE 40 MG INJ IVP SCH (08:16)
[2022-01-10] MEDS: NA CHLORIDE 0.9% 1,000 ML IV SCH ×2 (08:17→17:58)
[2022-01-10] MEDS: HYDRALAZINE HCL 20 MG/ML VIAL IV PRN (18:29)
[2022-01-10] MEDS: DOCUSATE NA 100 MG CAP PO SCH (20:34)
--- NOTE | 2022-01-10 21:19 | P.CNS ---
Date of Consult: 01/10/22 Reason for Consult: BRIDEGR/ CKD Requesting Physician: Bill Jha Chief Complaint: Alcoholic pancreatitis History of Present Illness: 61-year-old male with history of alcoholic pancreatitis, chronic systolic congestive heart failure, alcoholic cardiomyopathy, CKD 3, hypertension, gout, hyperlipidemia presents emerged [place] for epigastric pain. Patient reports that he has been abstaining from alcohol since August of this year but yesterday drank about a pint of gin while watching a basketball game, his pain began last night worse throughout the day today. He was evaluated here in the emergency department found to have elevated amylase and lipase, mildly worsening creatinine is CT demonstrated mild pancreatitis without complicating factors and normal gallbladder. Lipid panel and EtOH level pending in the ER patient with severe abdominal pain requiring narcotic pain medications ED prior wishes to admit for further evaluation and management of acute alcohol induced pancreatitis. 17:50 Chief complaint: Chief complaint: Patient states: upper abd pain and abdominal swelling aa5 that began yesterday. Pt reports hx of pancreatitis. Denies nausea/vomiting/diarrhea. 17:50 Coronavirus screen: At this time, the client does not indicate any symptoms associated aa5 with coronavirus-19. Ebola Screen: No symptoms or risks identified at this time. Initial Sepsis Screen: Does the patient meet any 2 criteria? No. Patient's initial sepsis screen is negative. Does the patient have a suspected source of infection? No. Patient's initial sepsis screen is negative. Risk Assessment: Do you want to hurt yourself or someone else? Patient reports no desire to harm self or others. Onset of symptoms was December 2021. Allergies Penicillins Allergy (Verified 05/03/20 05:24) Hives/Rash Home medications list reviewed: Yes Home Medications: Metoprolol Tartrate 1 tab PO BID 01/18/21 Amiodarone HCl [Pacerone] 1 tab PO DAILY 09/05/21 Atorvastatin Calcium 1 tab PO DAILY 09/05/21 Cetirizine HCl [Zyrtec] 1 cap PO DAILY 09/05/21 Gabapentin 1 cap PO DAILYPRN PRN 09/05/21 Sacubitril/Valsartan [Entresto 49 mg-51 mg Tablet] 1 tab PO BID 09/05/21 Pantoprazole [Protonix Tab] 40 mg PO DAILY #30 tab 09/06/21 - Past Medical/Surgical History Diabetic: No -: Hypertension -: Systolic congestive heart failure secondary to alcoholic cardiomyopathy -: Alcoholic Pancreatitis -: TIA -: Gout -: CKD [address] Rossi -: Cardiac stent placement July 2019 -: removal of L 5th digit Psychosocial/ Personal History: Patient currently lives at home with his and is on disability due to heart condition. - Family History Father Medical History: Cancer, Liver disease Notes: asbestos. exposure Mother Notes: mom is healthy - Social History Alcohol use: Yes CD- Drugs: No Caffeine use: Yes Place of Residence: Home Review of Systems 10-point ROS is otherwise unremarkable General: Weakness Gastrointestinal: Abdominal Pain Physical Examination Temp Pulse Resp BP Pulse Ox 97.1 F 75 18 175/101 H 94 01/10/22 16:00 01/10/22 16:00 01/10/22 20:33 01/10/22 16:00 01/10/22 20:33 General: Oriented x3, Cooperative HEENT: Atraumatic Neck: Supple Respiratory: Clear to auscultation bilaterally Cardiovascular: No edema, Regular rate/rhythm Gastrointestinal: Non-distended, No guarding Musculoskeletal: No clubbing, No contractures Integumentary: No rashes, No cyanosis Neurological: Normal speech Blood work reviewed in the chart. Imagings Data: EXAM DESCRIPTION: CT - Abdomen Pelvis Wo Contrast - 01/09/2022 7:21 pm CLINICAL HISTORY: Abdominal pain, acute, nonlocalized COMPARISON: Abdomen Pelvis Wo Contrast dated 09/03/2021 TECHNIQUE: Axial [address] imaging of the abdomen and pelvis was performed without IV contrast. No IV contrast was given because of allergy, abnormal renal function, patient refusal or physician request. No oral contrast administered. All CT scans are performed using dose optimization technique as appropriate and may include automated exposure control or mA/KV adjustment according to patient size. FINDINGS: No suspicious findings in the lung bases. Liver shows no focal abnormality. Attenuation is borderline to mildly fatty infiltrated. No splenomegaly or focal splenic finding. Gallbladder and biliary tree are also without suspicious finding. No solid or cystic mass within the pancreatic parenchyma. There is edematous/inflammatory stranding adjacent to the tail and left lateral body of the pancreas. This is a pattern typical for mild pancreatitis. There is very m inimal stranding along the anterior renal fascia on the left. No hydronephrosis or suspicious renal mass. No significant adrenal finding. Isodense renal masses and pyelonephritis cannot be excluded in the absence of IV contrast. The urinary bladder is without significant finding. No dilated bowel loops or bowel wall thickening. Stomach and duodenum do not appear to be secondarily involved the pancreatitis. No free air, free fluid or pneumatosis. Other site inflammatory stranding. No mass or bulky lymphadenopathy. Bilateral fat filled hernias are present. Disc and bone degenerative changes are present. Prominent facet joint degenerative changes are present. Most lumbar level is sacralized labeled L5 for the purposes of this study. L3-4 central spinal stenosis present with probable L2-3 spinal stenosis is well. IMPRESSION: Mild pancreatitis. No pseudocyst, abscess or other complication. Borderline to mild fatty infiltration of the liver. No focal liver lesion on noncontrast imaging. Advanced mid and lower lumbar disc and bone degenerative change with 2 level central spinal stenosis. Full assessment is limited is the absence of IV contrast. EXAM DESCRIPTION: RAD - Chest Single View - 01/10/2022 5:46 am CLINICAL HISTORY: R/O volume overload, hx CHF COMPARISON: Chest Pa And Lat (2 Views) dated 01/16/2021; Chest Single View dated 09/22/2020; Chest Single View dated 04/01/2020; Chest Single View dated 10/28/2019 FINDINGS: Lines: None. Lungs: No evidence of edema or pneumonia. Pleural: No significant pleural effusions or pneumothorax. Cardiac: The heart size is within normal limits. Bones: No acute fractures. Other: IMPRESSION: No acute cardiopulmonary disease. Conclusions/Impression: BRIDGER likely due to hypovolemia CKD III -No NSAIDs -Continue IVF HTN with CKD/ CHF -Hydralazine prn -Restart Metoprolol BID Systolic CHF, A/C -Restart Metoprolol BID -Daily weight Gout -Monitor uric acid level Alcoholic pancreatitis -NPO; advance diet as tolerated -Continue IVF Case reviewed with Dr. Jha Thank you kindly for the consultation
[2022-01-10] MEDS: METOPROLOL TAR 25 MG TAB PO SCH (22:00)
[2022-01-11 01:18] VITALS: O2SAT 94
[2022-01-11] MEDS: HYDROMORPHONE HCL 1 MG/ML INJ IV PRN ×2 (02:03→05:50)
[2022-01-11] MEDS: NA CHLORIDE 0.9% 1,000 ML IV SCH (05:47)
[2022-01-11 06:11] LABS: Absolute Lymphocytes (CBC) 1.1 K/uL (0.7-4.9); Hematocrit 41.1 % (39.6-49.0); Lymphocytes % 21.2 % (15.3-44.8); MPV 9.4 fL (7.6-11.3); RBC Red Blood Cell Count 4.56 M/uL (4.33-5.43)
[2022-01-11 06:29] LABS: Albumin 2.7 g/dL (3.4-5.0); Bilirubin Total 0.9 mg/dL (0.2-1.0); Magnesium 1.6 mg/dL (1.8-2.4); Potassium 4.5 mmol/L (3.5-5.1); Uric Acid 8.4 mg/dL (3.5-7.2)
--- NOTE | 2022-01-11 06:30 | P.PN ---
Date of Service: 01/11/22 Subjective: ROS: 10 point ROS as noted above, otherwise negative Physical exam GEN: Alert, oriented, NAD HEENT: Normal conjunctiva, sclera anicteric CV: Regular rate and rhythm, no edema Pulm: Nonlabored respirations on room air ABD: Soft, moderate epigastric tenderness to palpation, mild distention Integumentary: No rashes Neuro: Normal speech, normal affect Problem List Acute alcohol induced pancreatitis BRIDGER on CKD 3, secondary to dehydration, alcohol use Chronic systolic congestive heart failure/alcoholic cardiomyopathy Hypertension Gout Hyperlipidemia Alcohol abuse GERD ice chips ok, continue IVF, monitor fluid status advance slowly trend lipase BRIDGER improved; nephrology consulted continue home meds stool softener if tolerating PO VTE: lovenox Code: full Dispo: home, ~2 days Time Spent Managing Pts Care (In Minutes): 35
[2022-01-11] MEDS: METOPROLOL TAR 25 MG TAB PO SCH (09:03)
[2022-01-11] MEDS: HEPARIN 5000 UNIT/ML 1 ML VIAL SQ SCH (09:03)
[2022-01-11] MEDS: DOCUSATE NA 100 MG CAP PO SCH (09:03)
[2022-01-11] MEDS: PANTOPRAZOLE 40 MG INJ IVP SCH (09:07)
[2022-01-11 14:18] VITALS: BP 142/96; TEMP 97.9
--- NOTE | 2022-01-11 20:21 | P.PN ---
Date of Service: 01/11/22 Vital Signs Temp Pulse Resp BP Pulse Ox 97.9 F 71 17 142/96 H 97 01/11/22 12:00 01/11/22 12:00 01/11/22 12:00 01/11/22 12:00 01/11/22 12:00 Lab Results (last 24 hrs) 01/09/22 19:17: Opiates Screen Cancelled, Methadone Screen Cancelled, Ur Barbiturates Screen Cancelled, Ur Phencyclidine Scrn Cancelled, Amphetamines Screen Cancelled, Benzodiazepines Screen Cancelled, Cocaine Screen Cancelled, Ur THC Screen Cancelled Assessment/ Plan: Nephrology No dyspnea No chest pain Feeling much better with good urine output No acute events overnight Vitals, medications, blood work and imaging reviewed in the chart. General: Oriented x3, Cooperative HEENT: Atraumatic Neck: Supple Respiratory: Clear to auscultation bilaterally Cardiovascular: No edema, Regular rate/rhythm Gastrointestinal: Non-distended, No guarding Musculoskeletal: No clubbing, No contractures Integumentary: No rashes, No cyanosis Neurological: Normal speech Blood work reviewed in the chart. Imagings Data: EXAM DESCRIPTION: CT - Abdomen Pelvis Wo Contrast - 01/09/2022 7:21 pm CLINICAL HISTORY: Abdominal pain, acute, nonlocalized COMPARISON: Abdomen Pelvis Wo Contrast dated 09/03/2021 TECHNIQUE: Axial [address] imaging of the abdomen and pelvis was performed without IV contrast. No IV contrast was given because of allergy, abnormal renal function, patient refusal or physician request. No oral contrast administered. All CT scans are performed using dose optimization technique as appropriate and may include automated exposure control or mA/KV adjustment according to patient size. FINDINGS: No suspicious findings in the lung bases. Liver shows no focal abnormality. Attenuation is borderline to mildly fatty infiltrated. No splenomegaly or focal splenic finding. Gallbladder and biliary tree are also without suspicious finding. No solid or cystic mass within the pancreatic parenchyma. There is edematous/inflammatory stranding adjacent to the tail and left lateral body of the pancreas. This is a pattern typical for mild pancreatitis. There is very minimal stranding along the anterior renal fascia on the left. No hydronephrosis or suspicious renal mass. No significant adrenal finding. Isodense renal masses and pyelonephritis cannot be excluded in the absence of IV contrast. The urinary bladder is without significant finding. No dilated bowel loops or bowel wall thickening. Stomach and duodenum do not appear to be secondarily involved the pancreatitis. No free air, free fluid or pneumatosis. Other site inflammatory stranding. No mass or bulky lymphadenopathy. Bilateral fat filled hernias are present. Disc and bone degenerative changes are present. Prominent facet joint degenerative changes are present. Most lumbar level is sacralized labeled L5 for the purposes of this study. L3-4 central spinal stenosis present with probable L2-3 spinal stenosis is well. IMPRESSION: Mild pancreatitis. No pseudocyst, abscess or other complication. Borderline to mild fatty infiltration of the liver. No focal liver lesion on noncontrast imaging. Advanced mid and lower lumbar disc and bone degenerative change with 2 level central spinal stenosis. Full assessment is limited is the absence of IV contrast. EXAM DESCRIPTION: RAD - Chest Single View - 01/10/2022 5:46 am CLINICAL HISTORY: R/O volume overload, hx CHF COMPARISON: Chest Pa And Lat (2 Views) dated 01/16/2021; Chest Single View dated 09/22/2020; Chest Single View dated 04/01/2020; Chest Single View dated 10/28/2019 FINDINGS: Lines: None. Lungs: No evidence of edema or pneumonia. Pleural: No significant pleural effusions or pneumothorax. Cardiac: The heart size is within normal limits. Bones: No acute fractures. Other: IMPRESSION: No acute cardiopulmonary disease. Conclusions/Impression: BRIDGER likely due to hypovolemia CKD III -No NSAIDs -Continue IVF HTN with CKD/ CHF -Hydralazine prn -Continue Metoprolol BID Systolic CHF, A/C -Continue Metoprolol BID -Daily weight Gout -Monitor uric acid level Alcoholic pancreatitis -NPO; advance diet as tolerated -Continue IVF Case reviewed with Dr. Jha
--- NOTE | 2022-01-12 20:40 | P.DS ---
Admission Date: 01/09/22 Discharge Date: 01/11/22 Disposition: ROUTINE DISCHARGE Reason for Admission: Alcoholic pancreatitis Consultations: Nephrology - Dr. Rossi Procedures: Problem List Acute alcohol induced pancreatitis BRIDGER on CKD 3, secondary to dehydration, alcohol use Chronic systolic congestive heart failure/alcoholic cardiomyopathy Hypertension Gout Hyperlipidemia GERD Brief History of Present Illness: 61yo M, PMH: alcoholic pancreatitis, chronic systolic CHF, alcoholic cardiomyopathy, CKD 3, hypertension, gout, hyperlipidemia presents emerged [facility] for epigastric pain. Patient reports that he has been abstaining from alcohol since August of this year but yesterday drank about a pint of gin while watching a basketball game, his pain began last night worse throughout the day today. He was evaluated here in the emergency department found to have elevated amylase and lipase, mildly worsening creatinine is CT demonstrated mild pancreatitis without complicating factors and normal gallbladder. Lipid panel and EtOH level pending in the ER patient with severe abdominal pain requiring narcotic pain medications Hospital Course: Patient was treated for acute pancreatitis with IV fluids and bowel rest. He had improvement of his symptoms and his diet was slowly advanced. On day of discharge he was tolerating a low fat diet without nausea/pain. His lipase levels normalized. Renal function returned to baseline. Discharged home to continue slowly incorporating low fat diet. Resume home medications. Refrain from drinking any alcohol. Follow up with PCP within 1 week. Follow up with Nephrology in a few weeks. Vital Signs/Physical Exam: Temp Pulse Resp BP Pulse Ox 97.9 F 71 17 142/96 H 97 01/11/22 12:00 01/11/22 12:00 01/11/22 12:00 01/11/22 12:00 01/11/22 12:00 Physical exam GEN: Alert, oriented, NAD HEENT: Normal conjunctiva, sclera anicteric CV: Regular rate and rhythm, no edema Pulm: Nonlabored respirations on room air ABD: Soft, nontender, nondistended Laboratory Data at Discharge: WBC 5.0 K/uL (4.3-10.9) D 01/11/22 05: Hgb 13.4 g/dL (13.6-17.9) L 01/11/22 05: Hct 41.1 % (39.6-49.0) 01/11/22 05:22 Plt Count 145 K/uL (152-406) L 01/11/22 05:22 Sodium 142 mmol/L (136-145) 01/11/22 05:22 Potassium 4.5 mmol/L (3.5-5.1) 01/11/22 05:22 BUN 26 mg/dL (7-18) H 01/11/22 05:22 Creatinine 1.97 mg/dL (0.55-1.3) H 01/11/22 05:22 Glucose 88 mg/dL (74-106) 01/11/22 05:22 Uric Acid 8.4 mg/dL (3.5-7.2) H D 01/11/22 05:22 Phosphorus 3.0 mg/dL (2.5-4.9) 01/11/22 05:22 Magnesium 1.6 mg/dL (1.8-2.4) L 01/11/22 05:22 Total Bilirubin 0.9 mg/dL (0.2-1.0) 01/11/22 05:22 AST 38 U/L (15-37) H 01/11/22 05:22 ALT 31 U/L (12-78) 01/11/22 05:22 Alkaline Phosphatase 56 U/L (45-117) 01/11/22 05:22 Triglycerides 86 mg/dL (<150) 01/09/22 17:57 Cholesterol 239 mg/dL (<200) H 01/09/22 17:57 HDL Cholesterol 98 mg/dL (40-60) H 01/09/22 17:57 Cholesterol/HDL Ratio 2.44 01/09/22 17:57 Amylase 378 U/L (25-115) H* 01/09/22 17:57 Lipase 334 U/L (73-393) 01/11/22 05:22 Home Medications: Metoprolol Tartrate 1 tab PO BID 01/18/21 Amiodarone HCl [Pacerone] 1 tab PO DAILY 09/05/21 Atorvastatin Calcium 1 tab PO DAILY 09/05/21 Cetirizine HCl [Zyrtec] 1 cap PO DAILY 09/05/21 Gabapentin 1 cap PO DAILYPRN PRN 09/05/21 Sacubitril/Valsartan [Entresto 49 mg-51 mg Tablet] 1 tab PO BID 09/05/21 Pantoprazole [Protonix Tab*] 40 mg PO DAILY #30 tab 09/06/21 Time spent managing pt's care (in minutes): 45
== END 2022-01-11 15:00 | disposition home or self-care (01) | DRG 438 ==
LOC: ER 17:25 → ERHOLD 19:54 → 2ND 21:21
PROVIDERS: ADMIT Hospitalist; ATTEND Hospitalist
DX: K85.20 Alcohol induced acute pancreatitis without necrosis or infection (principal); I50.23 Acute on chronic systolic (congestive) heart failure; I13.0 Hypertensive heart and chronic kidney disease with heart failure and stage 1 through stage 4 chronic kidney disease, or unspecified chronic kidney disease; N17.9 Acute kidney failure, unspecified; I42.6 Alcoholic cardiomyopathy; N18.30 Chronic kidney disease, stage 3 unspecified; M10.9 Gout, unspecified; E78.5 Hyperlipidemia, unspecified; K21.9 Gastro-esophageal reflux disease without esophagitis; E86.0 Dehydration; Z88.0 Allergy status to penicillin; Z20.822 Contact with and (suspected) exposure to COVID-19; Z95.5 Presence of coronary angioplasty implant and graft
CPT/HCPCS: 36415; 71045; 74176; 80053; 80061; 80320; 82150; 83690; 83735; 83880; 84100; 84550; 85025; 96361; 96374; 96375; 99285; C9113; J0360; J1170; J1644; J2405; J7030; U0003

== ENCOUNTER 2022-04-17 00:44 | Emergency (ER) | payer OTHER ==
--- OUTSIDE RECORDS SUMMARY | 2022-04-17 00:47 | XMS REPORT | Continuity of Care Document ---
:1960 Author Organization [facility] t Address [address] [place] [address] Care Team Providers Name Role Phone Unavailable Unavailable Unavailable Problems This patient has no known problems. Allergies, Adverse Reactions, Alerts This patient has no known allergies or adverse reactions. Social History Social Habit Start Date Stop Date Quantity Comments Source Sex Ass[birth year] At [birth year] CORTEZ Quiroga Faby kes 00:00:00 00:00:00 [facility] Medications This patient has no known medications. Procedures This patient has no known procedures. Encounters Start End Encounter Admission Attending Care Care Encounter Source Date/Time Date/Time Type Type Clinicians Facility Department ID 2021-05-[address] [facility] Gastro [id number] [facility] 02:33:30 [facility] Results This patient has no known results.
[2022-04-17] MEDS ORDERED: HYDROCODONE/APAP 5/325 MG TAB ONE (01:22)
[2022-04-17] MEDS ORDERED: KETOROLAC 30 MG/ML INJ ONE (01:23)
--- NOTE | 2022-04-17 02:05 | ER ---
Nurse's Notes [facility] Name: Natan Paulino Sr Age: 61 yrs Sex: Male : 1960 Arrival Date: 04/17/2022 Time: 00:48 Bed 5 Private MD: Diagnosis: Gout, unspecified Presentation: 04/17 00:53 Chief complaint: Patient states: "I don't know if its gout or arthritis but my left as6 wrist and left knee are killing me". Coronavirus screen: At this time, the client does not indicate any symptoms associated with coronavirus-19. Ebola Screen: No symptoms or risks identified at this time. Initial Sepsis Screen: Does the patient meet any 2 criteria? No. Patient's initial sepsis screen is negative. Does the patient have a suspected source of infection? No. Patient's initial sepsis screen is negative. Risk Assessment: Do you want to hurt yourself or someone else? Patient reports no desire to harm self or others. Onset of symptoms was April 15, 2022. 00:53 Method Of Arrival: Ambulatory as6 00:53 Acuity: NINO 3 as6 Historical: - Allergies: 00:54 PENICILLINS; as6 - Home Meds: 00:54 metoprolol tartrate 25 mg Oral tab 1 tab 2 times per day [Active]; Methocarbamol Oral as6 [Active]; lisinopril 10 mg Oral tab 1 tab once daily [Active]; Lasix 20 mg Oral tab 1 tab once daily [Active]; carvedilol Oral [Active]; - PMHx: 00:54 CHF; Gout; Hypertension; Pancreatitis; osteoarthritis; Rheumatoid Arthritis; TIA; as6 - PSHx: 00:54 heart stent; Stented artery; finger; as6 - Immunization history:: Client reports receiving the 2nd dose of the Covid vaccine, moderna . - Social history:: Smoking status: Patient denies any tobacco usage or history of. Screenin:00 Abuse screen: Denies threats or abuse. Nutritional screening: No deficits noted. jb4 Tuberculosis screening: No symptoms or risk factors identified. Fall Risk None identified. Assessment: 01:00 General: Appears in no apparent distress. uncomfortable, Behavior is calm, cooperative, jb4 appropriate for age. Pain: Complains of pain in dorsal aspect of left wrist and left knee Pain does not radiate. Pain currently is 8 out of 10 on a pain scale. Neuro: Level of Consciousness is awake, alert, obeys commands, Oriented to person, place, time, situation. Cardiovascular: Patient's skin is warm and dry. Respiratory: Airway is patent Respiratory effort is even, unlabored, Respiratory pattern is regular, symmetrical. Derm: Skin is intact, Skin is dry, Skin is normal, Skin temperature is warm. Musculoskeletal: Circulation, motion, and sensation intact. Range of motion: intact in all extremities. 02:14 Reassessment: Patient appears in no apparent distress at this time. Patient and/or jb4 family updated on plan of care and expected duration. Pain level reassessed. Patient is alert, oriented x 3, equal unlabored respirations, skin warm/dry/pink. Pt reports the pain is much better. Patient states feeling better. Vital Signs: 00:53 BP 155 / 103; Pulse 93; Resp 16 S; Temp 98.4(O); Pulse Ox 94% on R/A; Weight 95.25 kg as6 (R); Height 6 ft. 3 in. (190.50 cm) (R); Pain 10/10; 00:53 Body Mass Index 26.25 (95.25 kg, 190.50 cm) as6 ED Course: 00:48 Patient arrived in ED. bp1 00:54 Triage completed. as6 00:56 Arm band placed on. as6 01:00 Patient has correct armband on for positive identification. Bed in low position. Call jb4 light in reach. Side rails up X 1. 01:03 [facility]. jl9 01:03 Brandon Masterson MD is Attending Physician. jl9 02:13 Jw Jackson, RADHIKA is Primary Nurse. jb4 02:15 No provider procedures requiring assistance completed. Patient did not have IV access jb4 during this emergency room visit. Administered Medications: 01:37 Drug: HYDROcodone-acetaminophen 5 mg-325 mg 1 tabs Route: PO; kl 02:00 Follow up: Response: No adverse reaction; Marked relief of symptoms jb4 01:37 Drug: Ketorolac 60 mg Route: IM; Site: right vastus lateralis; kl 02:00 Follow up: Response: No adverse reaction; Marked relief of symptoms jb4 Medication: 02:14 VIS not applicable for this client. jb4 Outcome: 02:05 Discharge ordered by MD. fink 02:15 Discharged to home ambulatory. jb4 02:15 Condition: stable 02:15 Discharge instructions given to patient, Instructed on discharge instructions, follow up and referral plans. medication usage, Demonstrated understanding of instructions, follow-up care, medications, Prescriptions given X 1. 02:15 Patient left the ED. jb4 Signatures: Yee Louis RN RN kl Bryson, James, RN RN jb4 Calista Irene Ashby, RN RN as6 Tae Rodriguez9
--- NOTE | 2022-04-17 02:05 | EDPHYS ---
Physician Documentation [facility] Name: Natan Paulino Sr Age: 61 yrs Sex: Male : 1960 Arrival Date: 04/17/2022 Time: 00:48 Bed 5 Private MD: CATALINO Physician Brandon Masterson HPI: 04/17 01:05 This 61 yrs old Black Male presents to ER via Ambulatory with complaints of Left hand jl9 and knee pain from gout. No trauma.. 01:05 The patient or guardian reports pain. The complaints affect the [facility] of left thumb. jl9 Onset: The symptoms/episode began/occurred today. Modifying factors: The symptoms are alleviated by holding still, the symptoms are aggravated by movement. Severity of symptoms: in the emergency department the symptoms a " 5" out of "10". Historical: - Allergies: 00:54 PENICILLINS; as6 - Home Meds: 00:54 metoprolol tartrate 25 mg Oral tab 1 tab 2 times per day [Active]; Methocarbamol Oral as6 [Active]; lisinopril 10 mg Oral tab 1 tab once daily [Active]; Lasix 20 mg Oral tab 1 tab once daily [Active]; carvedilol Oral [Active]; - PMHx: 00:54 CHF; Gout; Hypertension; Pancreatitis; osteoarthritis; Rheumatoid Arthritis; TIA; as6 - PSHx: 00:54 heart stent; Stented artery; finger; as6 - Immunization history:: Client reports receiving the 2nd dose of the Covid vaccine, moderna . - Social history:: Smoking status: Patient denies any tobacco usage or history of. ROS: 01:06 Constitutional: Negative for fever, chills, and weight loss, Eyes: Negative for injury, jl9 pain, redness, and discharge, ENT: Negative for injury, pain, and discharge, Neck: Negative for injury, pain, and swelling, Cardiovascular: Negative for chest pain, palpitations, and edema, Respiratory: Negative for shortness of breath, cough, wheezing, and pleuritic chest pain, Abdomen/GI: Negative for abdominal pain, nausea, vomiting, diarrhea, and constipation, Back: Negative for injury and pain, : Negative for injury, bleeding, discharge, and swelling. 01:06 Skin: Negative for injury, rash, and discoloration, Neuro: Negative for headache, weakness, numbness, tingling, and seizure, Psych: Negative for depression, anxiety, suicide ideation, homicidal ideation, and hallucinations, Allergy/Immunology: Negative for hives, rash, and allergies, Endocrine: Negative for neck swelling, polydipsia, polyuria, polyphagia, and marked weight changes, Hematologic/Lymphatic: Negative for swollen nodes, abnormal bleeding, and unusual bruising. 01:06 MS/extremity: Positive for Left wrist and left knee pain. . Exam: :06 Constitutional: This is a well developed, well nourished patient who is awake, alert, jl9 and in no acute distress. Head/Face: Normocephalic, atraumatic. Eyes: Pupils equal round and reactive to light, extra-ocular motions intact. Lids and lashes normal. Conjunctiva and sclera are non-icteric and not injected. Cornea within normal limits. Periorbital areas with no swelling, redness, or edema. ENT: Mucous membranes moist. Neck: Trachea midline, no thyromegaly or masses palpated, and no cervical lymphadenopathy. Supple, full range of motion without nuchal rigidity, or vertebral point tenderness. No Meningismus. Chest/axilla: Normal chest wall appearance and motion. Nontender with no deformity. No lesions are appreciated. Cardiovascular: Regular rate and rhythm with a normal S1 and S2. No gallops, murmurs, or rubs. Normal PMI, no JVD. No pulse deficits. Respiratory: Lungs have equal breath sounds bilaterally, clear to auscultation and percussion. No rales, rhonchi or wheezes noted. No increased work of breathing, no retractions or nasal flaring. Abdomen/GI: Soft, non-tender, with normal bowel sounds. No distension or tympany. No guarding or rebound. No evidence of tenderness throughout. Back: No spinal tenderness. No costovertebral tenderness. Full range of motion. Skin: Warm, dry with normal turgor. Normal color with no rashes, no lesions, and no evidence of cellulitis. 01:06 Neuro: Awake and alert, GCS 15, oriented to person, place, time, and situation. Cranial nerves II-XII grossly intact. Motor strength 5/5 in all extremities. Sensory grossly intact. Cerebellar exam normal. Normal gait. Psych: Awake, alert, with orientation to person, place and time. Behavior, mood, and affect are within normal limits. 01:06 Musculoskeletal/extremity: Left wrist and left knee pain on movement. . Vital Signs: 00:53 BP 155 / 103; Pulse 93; Resp 16 S; Temp 98.4(O); Pulse Ox 94% on R/A; Weight 95.25 kg as6 (R); Height 6 ft. 3 in. (190.50 cm) (R); Pain 10/10; 00:53 Body Mass Index 26.25 (95.25 kg, 190.50 cm) as6 MDM: 01:03 Patient medically screened. jl9 01:07 Data reviewed: vital signs, nurses notes. jl9 02:04 Counseling: I had a detailed discussion with the patient and/or guardian regarding: the jl9 historical points, exam findings, and any diagnostic results supporting the discharge/admit diagnosis, the need for outpatient follow up, to return to the emergency department if symptoms worsen or persist or if there are any questions or concerns that arise at home. Response to treatment: the patient's symptoms have resolved after treatment. Administered Medications: 01:37 Drug: HYDROcodone-acetaminophen 5 mg-325 mg 1 tabs Route: PO; kl 02:00 Follow up: Response: No adverse reaction; Marked relief of symptoms jb4 01:37 Drug: Ketorolac 60 mg Route: IM; Site: right vastus lateralis; kl 02:00 Follow up: Response: No adverse reaction; Marked relief of symptoms jb4 Disposition Summary: 04/17/22 02:05 Discharge Ordered Location: Home jl9 Condition: Stable jl9 Diagnosis - Gout, unspecified jl9 Followup: jl9 - With: Private Physician - When: 1 - 2 days - Reason: Recheck today's complaints, Continuance of care, Re-evaluation by your physician Discharge Instructions: - Discharge Summary Sheet jl9 - Gout, [id number] jl9 Forms: - Medication Reconciliation Form jl9 - Thank You Letter jl9 - Antibiotic Education jl9 - Prescription Opioid Use jl9 Prescriptions: - colchicine 0.6 mg Oral tablet - take 2 tablet by ORAL route once daily As needed 1.2 mg orally at first sign of jl9 gout flare followed by 0.6 mg 1 hour later if needed.; 30 tablet; Refills: 0, Product Selection Permitted Signatures: Yee Louis RN RN kl Malcolm Qureshi RN RN as6 Tae Rodriguez jl9 Jw Jackson RN jb4
[2022-04-17 03:49] VITALS: BP 155/103; TEMP 98.4; O2SAT 94
== END 2022-04-17 02:15 | disposition home or self-care (01) ==
LOC: ER 00:44
DX: M10.9 Gout, unspecified (principal); I10 Essential (primary) hypertension; I50.9 Heart failure, unspecified; Z95.828 Presence of other vascular implants and grafts; Z88.0 Allergy status to penicillin

== ENCOUNTER 2022-07-15 18:43 | Inpatient (IN) | payer OTHER ==
--- OUTSIDE RECORDS SUMMARY | 2022-07-15 18:45 | XMS REPORT | Continuity of Care Document ---
:1960 Author Organization [facility] t Address [address] [place] [address] Care Team Providers Name Role Phone Unavailable Unavailable Unavailable Problems This patient has no known problems. Allergies, Adverse Reactions, Alerts This patient has no known allergies or adverse reactions. Social History Social Habit Start Date Stop Date Quantity Comments Source Sex Assigned At [birth year] CORTEZ Quiroga Faby kes 00:00:00 00:00:00 [facility] Medications This patient has no known medications. Procedures This patient has no known procedures. Encounters Start End Encounter Admission Attending Care Care Encounter Source Date/Time Date/Time Type Type Clinicians Facility Department ID 2021-05-[address] [facility] Gastro [id number] [facility] 02:33:30 [facility] Results This patient has no known results.
[2022-07-15] MEDS ORDERED: MORPHINE 4 MG/ML SYR ONE ×2 (20:47→23:18)
[2022-07-15] MEDS ORDERED: FAMOTIDINE 20 MG/2 ML VIAL IV ONE (20:47)
--- NOTE | 2022-07-15 20:48 | RAD REPORT ---
EXAM DESCRIPTION: Catarina Single View07/15/2022 8:28 pm CLINICAL HISTORY: Chest pain COMPARISON: December 2021 FINDINGS: The lungs appear clear of acute infiltrate. The heart is mildly enlarged IMPRESSION: No acute abnormalities displayed
[2022-07-15 21:14] LABS: Absolute Lymphocytes (CBC) 1.6 K/uL (0.7-4.9); Hematocrit 46.5 % (39.6-49.0); Lymphocytes % 24.3 % (15.3-44.8); MPV 9.3 fL (7.6-11.3); RBC Red Blood Cell Count 5.05 M/uL (4.33-5.43)
[2022-07-15 21:38] LABS: Albumin 2.9 g/dL (3.4-5.0); Bilirubin Total 2.3 mg/dL (0.2-1.0); Potassium 4.7 mmol/L (3.5-5.1)
[2022-07-15 21:45] LABS: Troponin High Sensitivity 828.3 pg/mL (<58.9)
--- NOTE | 2022-07-15 22:47 | RAD REPORT ---
EXAM DESCRIPTION: US - Abdomen Exam Limited - 07/15/2022 10:33 pm CLINICAL HISTORY: Abdominal pain. COMPARISON: August 2021 FINDINGS: Gallbladder wall measures 3 millimeters. A gallstone is not seen. The biliary tree is normal caliber. IMPRESSION: Borderline gallbladder wall thickening. This probably is not significant. However this c an be seen with acalculous cholecystitis and should be correlated clinically
--- NOTE | 2022-07-15 22:57 | ER ---
Nurse's Notes [facility] Name: Natan Paulino Sr Age: 62 yrs Sex: Male : 1960 Arrival Date: 07/15/2022 Time: 18:44 Bed 25 Private MD: Diagnosis: Other chronic pancreatitis;Subsequent non-ST elevation (NSTEMI) myocardial infarction Presentation: 07/15 19:21 Chief complaint: Patient states: upper abdominal pain with associated nausea since kb3 yesterday. Hx of pancreatitis and this feels similar. Coronavirus screen: Vaccine status: Patient reports receiving the 2nd dose of the covid vaccine. Client denies travel out of the [place] in the last 14 days. Ebola Screen: Patient negative for fever greater than or equal to 101.5 degrees Fahrenheit, and additional compatible Ebola Virus Disease symptoms Patient denies exposure to infectious person. Patient denies travel to an Ebola-affected area in the 21 days before illness onset. Initial Sepsis Screen: Does the patient meet any 2 criteria? No. Patient's initial sepsis screen is negative. Does the patient have a suspected source of infection? No. Patient's initial sepsis screen is negative. Risk Assessment: Do you want to hurt yourself or someone else? Patient reports no desire to harm self or others. Onset of symptoms was July 14, 2022. 19:21 Method Of Arrival: Ambulatory kb3 19:21 Acuity: NINO 3 kb3 Triage Assessment: 19:23 General: Appears in no apparent distress. uncomfortable, Behavior is calm, cooperative. kb3 Pain: Complains of pain in epigastric area, right upper quadrant and left upper quadrant Pain does not radiate. Pain currently is 10 out of 10 on a pain scale. Quality of pain is described as crampy, sharp, Pain began 1 day ago. GI: Reports upper abdominal pain, cramping, epigastric pain, nausea. Historical: - Allergies: 19:23 PENICILLINS; kb3 - PMHx: 19:23 CHF; Gout; Hypertension; osteoarthritis; Pancreatitis; Rheumatoid Arthritis; TIA; kb3 - PSHx: 19:23 finger; heart stent; Stented artery; kb3 - Immunization history:: Adult Immunizations up to date, Client reports receiving the 2nd dose of the Covid vaccine, Last tetanus immunization: up to date. - Social history:: Smoking status: Patient denies any tobacco usage or history of. Screenin:12 Abuse screen: Denies threats or abuse. Denies injuries from another. Nutritional hb screening: No deficits noted. Tuberculosis screening: No symptoms or risk factors identified. Fall Risk None identified. Assessment: 21:11 General: Appears in no apparent distress. uncomfortable, Behavior is calm, cooperative. hb Neuro: Level of Consciousness is awake, alert, obeys commands, Oriented to person, place, time, situation. Cardiovascular: Patient's skin is warm and dry. Respiratory: Respiratory effort is even, unlabored, Respiratory pattern is regular, symmetrical. GI: Reports lower abdominal pain, upper abdominal pain. : No signs and/or symptoms were reported regarding the genitourinary system. EENT: No signs and/or symptoms were reported regarding the EENT system. Derm: Skin is pink, warm \T\ dry. Musculoskeletal: No signs and/or symptoms reported regarding the musculoskeletal system. Vital Signs: 19:21 BP 164 / 124; Pulse 98; Resp 20; Temp 97.8; Pulse Ox 100% ; Weight 95.25 kg; Height 6 kb3 ft. 3 in. (190.50 cm); Pain 9/10; 21:02 BP 158 / 106; Pulse 92; Resp 18; Pulse Ox 99% on R/A; Pain 8/10; hb 19:21 Body Mass Index 26.25 (95.25 kg, 190.50 cm) kb3 ED Course: 18:44 Patient arrived in ED. jl7 18:45 Cy Nichols DO is Attending Physician. ms3 19:09 Attending Physician role handed off by Cy Nichols DO ms3 19:09 Raffy Mansfield MD is Attending Physician. ms3 19:23 Triage completed. kb3 19:23 Arm band placed on right wrist. kb3 20:00 Missed attempt(s): 20 gauge in left antecubital area. Bleeding controlled, band aid hb applied, catheter tip intact. 20:02 Inserted saline lock: 22 gauge in left upper arm, using aseptic technique. Blood hb collected. 20:28 Lanie Bobo, RN is Primary Nurse. hb 20:30 CXR XRAY In Process Unspecified. EDMS 21:12 Patient has correct armband on for positive identification. hb 21:44 Notified ED physician of a critical lab result(s). troponin of 828.3 Dr Mansfield bb notified. 22:32 US Abdomen Limited In Process Unspecified. EDMS 22:52 Bill Jha MD is Hospitalizing Provider. rt 23:43 SARS-COV-2 Antigen Rapid Sent. kd3 07/16 01:58 No provider procedures requiring assistance completed. Patient admitted, IV remains in kd3 place. Administered Medications: 07/15 21:10 Drug: Pepcid (famotidine) 20 mg Route: IVP; Site: left upper arm; hb 21:10 Drug: morphine 4 mg Route: IVP; Infused Over: 4 mins; Site: left upper arm; hb 23:17 Drug: morphine 4 mg Route: IVP; Infused Over: 4 mins; Site: right antecubital; kd3 Medication: 21:12 VIS not applicable for this client. hb Outcome: 22:56 Decision to Hospitalize by Provider. rt 07/16 01:59 Admitted to ER Hold. Please see [facility] for further documentation. kd3 Condition: stable Discharge instructions given to patient. 20:43 Patient left the ED. bb Signatures: Dispatcher [employer] EDMS Emily Britton RN RN bb Lanie Bobo RN RN Hilary Garza RN RN jl7 Cy Nichols DO DO ms3 Kera Dyer RN RN kd3 Elsy Cheema, RN RN kb3 Raffy Mansfield MD MD rt Corrections: (The following items were deleted from the chart) 07/15 19:24 19:23 Pain: Complains of pain in epigastric area, right upper quadrant and left upper kb3 quadrant Pain does not radiate. Pain currently is 10 out of 10 on a pain scale. Quality of pain is described as burning, sharp, Pain began 1 day ago. kb3
--- NOTE | 2022-07-15 22:57 | EDPHYS ---
Physician Documentation [facility] Name: Natan Paulino Sr Age: 62 yrs Sex: Male : 1960 Arrival Date: 07/15/2022 Time: 18:44 Bed 25 Private MD: ED Physician Raffy Mansfield HPI: 07/15 18:51 This 62 yrs old Black Male presents to ER via Unassigned with complaints of S/S of ms3 Pancreatitis. 18:51 The patient presents with abdominal pain in the epigastric area. Onset: The ms3 symptoms/episode began/occurred yesterday. The symptoms radiate to back. Associated signs and symptoms: Pertinent positives: chest pain, shortness of breath. The symptoms are described as burning. Modifying factors: The symptoms are alleviated by nothing, the symptoms are aggravated by nothing. Severity of pain: At its worst the pain was severe in the emergency department the pain is unchanged is a 10 / 10. Patient with hx of alcoholic pancreatitis. 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 Historical: - Allergies: 19:23 PENICILLINS; kb3 - PMHx: 19:23 CHF; Gout; Hypertension; osteoarthritis; Pancreatitis; Rheumatoid Arthritis; TIA; kb3 - PSHx: 19:23 finger; heart stent; Stented artery; kb3 - Immunization history:: Adult Immunizations up to date, Client reports receiving the 2nd dose of the Covid vaccine, Last tetanus immunization: up to date. - Social history:: Smoking status: Patient denies any tobacco usage or history of. ROS: 18:51 Constitutional: Negative for fever, and chills. ENT: Negative for injury, pain, and ms3 discharge, Neck: Negative for injury, pain, and swelling. 18:51 MS/Extremity: Negative for injury and deformity, Skin: Negative for injury, rash, and discoloration. 18:51 Cardiovascular: Positive for chest pain. 18:51 Respiratory: Positive for shortness of breath. 18:51 All other systems are negative. Exam: 18:51 Constitutional: This is a well developed, well nourished patient who is awake, alert, ms3 and in no acute distress. Head/Face: Normocephalic, atraumatic. Neck: Trachea midline, no cervical lymphadenopathy. Supple, full range of motion without nuchal rigidity, or vertebral point tenderness. No Meningismus. Chest/axilla: Normal chest wall appearance and motion. Nontender with no deformity. Cardiovascular: Regular rate and rhythm with a normal S1 and S2. No gallops, murmurs, or rubs. Normal PMI, no JVD. No pulse deficits. Respiratory: Lungs have equal breath sounds bilaterally, clear to auscultation and percussion. No rales, rhonchi or wheezes noted. No increased work of breathing, no retractions or nasal flaring. 18:51 Skin: Warm, dry with normal turgor. Normal color with no rashes, no lesions, and no evidence of cellulitis. 18:51 Abdomen/GI: Inspection: abdomen appears normal, Bowel sounds: normal, Palpation: severe abdominal tenderness, in the epigastric area. 21:11 ECG was reviewed by the Attending Physician. LBBB present rt Vital Signs: 19:21 BP 164 / 124; Pulse 98; Resp 20; Temp 97.8; Pulse Ox 100% ; Weight 95.25 kg; Height 6 kb3 ft. 3 in. (190.50 cm); Pain 9/10; 21:02 BP 158 / 106; Pulse 92; Resp 18; Pulse Ox 99% on R/A; Pain 8/10; hb 19:21 Body Mass Index 26.25 (95.25 kg, 190.50 cm) kb3 MDM: 18:51 Differential diagnosis: gastritis, myocardia ischemia or infarction, pancreatitis. ms3 18:54 Patient medically screened. ms3 19:07 Transition of care: After a detail discussion of the patient's case, care is ms3 transferred to Raffy Mansfield MD. 22:57 Data reviewed: vital signs, nurses notes, old medical records, lab test result(s), EKG, rt radiologic studies. 07/15 18:47 Order name: CBC with Diff; Complete Time: 21:35 ms3 07/15 18:47 Order name: CMP; Complete Time: 21:45 ms3 07/15 18:47 Order name: Lipase; Complete Time: 21:45 ms3 07/15 21:12 Order name: Troponin High Sensitivity; Complete Time: 21:45 EDMS 07/15 22:07 Order name: Alcohol Level; Complete Time: 23:05 rt 07/15 23:06 Order name: SARS-COV-2 Antigen Rapid sb4 07/15 23:49 Order name: SARS-COV-2 Antigen Rapid; Complete Time: 18:11 EDMS 07/16 02:50 Order name: CBC with Automated Diff; Complete Time: 18:11 EDMS 07/16 03:30 Order name: Comprehensive Metabolic Panel; Complete Time: 18:11 EDMS 07/16 03:30 Order name: Phosphorus; Complete Time: 18:11 EDMS 07/16 03:30 Order name: Creatine Phosphokinase; Complete Time: 18:11 EDMS 07/16 03:30 Order name: CKMB Creatine Kinase MB; Complete Time: 18:11 EDMS 07/16 03:30 Order name: Troponin High Sensitivity; Complete Time: 18:11 EDMS 07/15 18:47 Order name: IV Saline Lock; Complete Time: 21:11 ms3 07/15 18:47 Order name: Labs collected and sent; Complete Time: 21:11 ms3 07/15 18:51 Order name: CXR XRAY; Complete Time: 20:49 ms3 07/15 18:51 Order name: EKG; Complete Time: 18:52 ms3 07/15 18:51 Order name: EKG - Nurse/Tech; Complete Time: 21:11 ms3 07/15 22:06 Order name: US Abdomen Limited; Complete Time: 22:53 rt 07/16 03:30 Order name: NT PRO-BNP; Complete Time: 18:11 EDMS 07/16 03:30 Order name: Lipid Profile; Complete Time: 18:11 EDMS 07/16 03:30 Order name: T4 Free; Complete Time: 18:11 EDMS 07/16 03:30 Order name: Magnesium; Complete Time: 18:11 EDMS 07/16 03:30 Order name: Lipase; Complete Time: 18:11 EDMS 07/16 03:30 Order name: Thyroid Stimulating Hormone; Complete Time: 18:11 EDMS 07/16 10:33 Order name: CT; Complete Time: 18:11 EDMS EC:11 Rate is 97 beats/min. Rhythm is regular, Normal Sinus Rhythm with Occasional PVCs. Left rt axis deviation noted. [place] interval is normal. QT interval is prolonged at [address] changes noted. Interpreted by me. Administered Medications: 21:10 Drug: Pepcid (famotidine) 20 mg Route: IVP; Site: left upper arm; hb 21:10 Drug: morphine 4 mg Route: IVP; Infused Over: 4 mins; Site: left upper arm; hb 23:17 Drug: morphine 4 mg Route: IVP; Infused Over: 4 mins; Site: right antecubital; kd3 Disposition Summary: 07/15/22 22:56 Hospitalization Ordered Hospitalization Status: Inpatient Admission rt Provider: Bill Jha rt Condition: Fair rt Problem: an acute exacerbation rt Symptoms: have improved rt Bed/Room Type: Standard rt Location: Telemetry/MedSurg (Inpatient)(07/16/22 19:42) cg Room Assignment: [facility] [place](07/16/22 19:42) cg Diagnosis - Other chronic pancreatitis rt - Subsequent non-ST elevation (NSTEMI) myocardial infarction rt Forms: - Medication Reconciliation Form rt - SBAR form rt Signatures: Dispatcher [employer] EDMS Denver Brown, SALES AND LEASING AGENT-C SALES AND LEASING AGENT-Cla1 Sujatha Norton RN RN Lanie Bobo RN RN Cy Nichols DO DO ms3 Kera Dyer RN RN kd3 Elsy Cheema RN RN kb3 Cait Carranza PA-Bertha PA-C sb4 Raffy Mansfield MD MD rt Corrections: (The following items were deleted from the chart) 21:12 18:52 Troponin High Sensitivity+C.LAB.BRZ ordered. EDMS EDMS 23:21 22:56 Telemetry/MedSurg (Inpatient) rt cg 23:21 22:56 rt cg 07/16 19:42 07/15 23:21 [facility] ER HOLD cg cg 07/16 19:42 07/15 23:21 ERHOLD- cg cg
--- NOTE | 2022-07-15 23:12 | P.HP ---
Certification for Inpatient Patient admitted to: Inpatient With expected LOS: >2 Midnights Patient will require the following post-hospital care: None Practitioner: I am a practitioner with admitting privileges, knowledge of patient current condition, hospital course, and medical plan of care. Services: Services provided to patient in accordance with Admission requirements found in Title 42 Section 412.3 of the Code of Federal Regulations Patient History Date of Service: 07/16/22 Reason for admission: Alcoholic Pancreatitis History of Present Illness: Patient is a 62-year-old male with history of alcoholic pancreatitis, chronic systolic congestive heart failure, alcoholic cardiomyopathy, CKD3, hypertension, gout, CAD, and hyperlipidemia who presented to the emergency department with complaints of epigastric pain and nausea. Patient reports that he has been abstaining from alcohol for about 3 months now but yesterday he drank half a pint of gin. He reports that the pain feels exactly like his previous pancreatitis episodes. His labs are significant for BUN 35, creatinine 2.16, T bili 2.3, AST 300, ALT 102, troponin 828, lipase 471, etoh 40. Chest xray negative. Abdominal US showed "Borderline gallbladder wall thickening. This probably is not significant. However this can be seen with acalculous cholecystitis and should be correlated clinically." CT abdomen pelvis showed acute pancreatitis. Small amount of free fluid within the caudal aspect of the retroperitoneum and trace free fluid within bilateral paracolic gutters. No pseudocyst, hemorrhage, or necrosis." He was given morphine and pepcid in the ED and reports his pain has improved.Patient is admitted for further management. Allergies Penicillins Allergy (Verified 05/03/20 05:24) Hives/Rash Home medications list reviewed: Yes Home Medications: Metoprolol Tartrate 1 tab PO BID 01/18/21 Amiodarone HCl [Pacerone] 1 tab PO DAILY 09/05/21 Atorvastatin Calcium 1 tab PO DAILY 09/05/21 Cetirizine HCl [Zyrtec] 1 cap PO DAILY 09/05/21 Gabapentin 1 cap PO DAILYPRN PRN 09/05/21 Sacubitril/Valsartan [Entresto 49 mg-51 mg Tablet] 1 tab PO BID 09/05/21 Pantoprazole [Protonix Tab*] 40 mg PO DAILY #30 tab 09/06/21 - Past Medical/Surgical History Diabetic: No -: Hypertension -: Systolic congestive heart failure secondary to alcoholic cardiomyopathy -: Alcoholic Pancreatitis -: TIA -: Gout -: CKD [address] Rossi -: CAD -: Cardiac stent placement July 2019 -: removal of L 5th digit Psychosocial/ Personal History: Patient currently lives at home with his and is on disability due to heart condition. - Family History Father -: Cancer, Liver disease Mother -: GI disease, Other (see notes) Notes: NA - Social History Smoking Status: Never smoker Alcohol use: Yes CD- Drugs: No Caffeine use: Yes Place of Residence: Home Review of Systems Respiratory: Shortness of Breath Cardiovascular: Chest Pain Gastrointestinal: Abdominal Pain Physical Examination - Vital Signs Temperature: 97.8 F Blood Pressure: 158/106 Pulse: 92 Respirations: 18 Pulse Ox (%): 99 (room air) - Physical Exam General: Alert, In no apparent distress HEENT: Atraumatic, PERRLA, EOMI, Sclerae nonicteric Neck: Supple, 2+ carotid pulse no bruit, No LAD, Without JVD or thyroid abnormality Respiratory: Clear to auscultation bilaterally, Normal air movement Cardiovascular: Regular rate/rhythm, Normal S1 S2 Gastrointestinal: Normal bowel sounds, Soft and benign, Non-distended, Tenderness Musculoskeletal: No tenderness Integumentary: No rashes Neurological: Normal speech, Normal strength at 5/5 x4 extr, Normal tone, Normal affect - Studies Laboratory Data (last 24 hrs) 07/15/22 21:02: Sodium 135 L, Potassium 4.7, BUN 35 H, Creatinine 2.16 H, Glucose 82, Total Bilirubin 2.3 H, AST 300 H, ALT 102 H, Alkaline Phosphatase 101, Lipase 471 H 07/15/22 21:02: WBC 6.50, Hgb 15.1, Hct 46.5, Plt Count 178 Assessment and Plan - Problems (Diagnosis) (1) Alcoholic cardiomyopathy Current Visit: Yes Status: Chronic (2) Acute alcoholic pancreatitis Current Visit: Yes Status: Acute Qualifiers: Acute pancreatitis complication: no infection or necrosis Qualified Code(s): K85.20 - Alcohol induced acute pancreatitis without necrosis or infection (3) Elevated troponin Current Visit: Yes Status: Acute (4) Chronic systolic heart failure Current Visit: Yes Status: Chronic (5) HTN (hypertension) Current Visit: Yes Status: Chronic Qualifiers: Hypertension type: primary hypertension Qualified Code(s): I10 - Essential (primary) hypertension (6) Chronic kidney disease, stage 3 Current Visit: Yes Status: Chronic Qualifiers: Chronic kidney disease stage 3 subtype: stage 3b (GFR 30-44) Qualified Code(s): N18.32 - Chronic kidney disease, stage 3b - Plan NPO for bowel rest. Gentle IV hydration. Supportive measures with pain meds and antiemetics PRN. Lipase level daily. Lipid panel ordered for morning. Cr of 2.14 appears close to baseline. Continue to monitor. No NSAIDs. Troponin 828. Has been elevated on prior admissions, likely demand ischemia. Patient denies chest pain. EKG negative. Trend cardiac enzymes. Patient with history of chronic systolic CHF secondary to alcoholic cardiomyopathy. Chest xray negative. BNP pending. Monitor for fluid overload. Alcohol cessation counseling. Patient had been abstinent for 3 months. Drank 1/2 pint of gin yesterday. Etoh of 40. Tbili and LFTs elevated. Have also been elevated on prior admissions. Abdominal US negative. Monitor and replete electrolytes per protocol. Reconcile and continue home medications when appropriate. Lovenox for VTE prophylaxis. Full code Discharge Plan: Home Plan to discharge in: Greater than 2 days - Advance Directives Does patient have a Living Will: No Does patient have a Durable POA for Healthcare: No - Code Status/Comfort Care Code Status Assessed: Yes Code Status: Full Code Critical Care: No Time Spent Managing Pts Care (In Minutes): 50
[2022-07-15 23:49] LABS: SARS-CoV-2 Antigen Rapid Res Negative (Negative)
[2022-07-16] MEDS: NA CHLORIDE 0.9% 1,000 ML IV SCH ×3 (01:08→21:00)
[2022-07-16] MEDS ORDERED: ONDANSETRON 4 MG/2 ML VIAL IV PRN (01:08)
[2022-07-16] MEDS ORDERED: NA CHLORIDE 0.9% 1,000 ML ONE ×2 (01:13→14:17)
[2022-07-16] MEDS ORDERED: MORPHINE 4 MG/ML SYR ONE ×3 (01:36→16:20)
[2022-07-16] MEDS ORDERED: HYDRALAZINE HCL 20 MG/ML VIAL ONE ×2 (01:36→12:17)
[2022-07-16] MEDS: HYDRALAZINE HCL 20 MG/ML VIAL IV PRN ×2 (01:38→12:20)
[2022-07-16] MEDS: MORPHINE 4 MG/ML SYR IV PRN ×4 (01:39→20:59)
[2022-07-16 01:54] VITALS: BMI 26.1
[2022-07-16 02:47] LABS: Absolute Lymphocytes (CBC) 1.4 K/uL (0.7-4.9); Hematocrit 44.2 % (39.6-49.0); Lymphocytes % 22.8 % (15.3-44.8); MCV 91.7 fL (80-100); MPV 9.5 fL (7.6-11.3); RBC Red Blood Cell Count 4.82 M/uL (4.33-5.43)
[2022-07-16 03:28] LABS: Albumin 2.8 g/dL (3.4-5.0); Bilirubin Total 2.8 mg/dL (0.2-1.0); CKMB Creatine Kinase MB 1.9 ng/mL (1.0-3.6); Phosphorus 4.1 mg/dL (2.5-4.9); Potassium 5.1 mmol/L (3.5-5.1); Protein, Total 7.4 g/dL (6.4-8.2); Thyroid Stimulating Hormone 1.43 uIU/mL (0.360-3.740)
[2022-07-16 03:30] LABS: Troponin High Sensitivity 796.9 pg/mL (<58.9)
[2022-07-16] MEDS ORDERED: ENOXAPARIN 40 MG/0.4 ML SQ ONE (07:38)
[2022-07-16] MEDS: ENOXAPARIN 40 MG/0.4 ML SQ SCH (07:46)
[2022-07-16] MEDS ORDERED: INFLUENZA VACCINE (for 6+ mo) 0.5 ML DOSE IMVAC ONE (08:00)
--- NOTE | 2022-07-16 10:33 | RAD REPORT ---
EXAM DESCRIPTION: Chest Abd Pelvis Wo Con CLINICAL HISTORY: 62 years Male, pancreatitis, CHF TECHNIQUE: Helical CT axial images are obtained from the thoracic inlet to the pubic symphysis witho ut IV contrast. No oral contrast was administered. Multiplanar reconstruction. This exam was pe rformed according to our departmental dose-optimization program, which includes automated exposure co ntrol, adjustment of the mA and/or kV according to patient size and/or use of iterative reconstructio n technique. COMPARISON: CT abdomen pelvis 01/09/2022 FINDINGS: CHEST: LUNGS: Minimal left basilar atelectasis. Otherwise clear lung parenchyma. No pulmonary masses or courtney spicious nodules. MEDIASTINUM: Borderline enlarged right paratracheal lymph node measuring up to 1.0 cm. Otherwise, no abnormally enlarged mediastinal or hilar lymph nodes. PLEURA: Minimal right pleural effusion. No left pleural effusion. No pneumothorax. CARDIAC: Cardiomegaly. No pericardial effusion. VASCULAR: Thoracic aorta is normal in caliber without aneurysm. The pulmonary vasculature demonstrate s no significant dilatation. CHEST WALL: Chest wall is intact. No abnormal axillary lymphadenopathy. ABDOMEN/PELVIS: LIVER: Normal in size. Homogenous attenuation. Stable appearance of segment IVb well-circumscribed hypodense lesion compatible with that of benign cysts measuring up to 2.5 cm, no further workup is wa rranted. No suspicious masses on this nonenhanced exam. HEPATOBILIARY: Normal-appearing gallbladder. No intra- or extrahepatic ductal dilatation. SPLEEN: Normal size. PANCREAS: Moderate peripancreatic fat stranding and inflammatory changes involving the head of the pa ncreas. Small amount of free fluid within bilateral caudal aspect of the retroperitoneum. Trace free fluid within bilateral paracolic gutters. ADRENAL GLANDS: Normal size. No adrenal masses. KIDNEYS: Bilateral kidneys are normal in size without obstructing calculi or hydronephrosis. No nep hrolithiasis. Couple of small simple right renal cyst, no further workup is warranted. BOWEL AND MESENTERY: No small or large bowel dilatation. No significant colonic diverticulosis. The appendix is not visualized, no secondary signs of appendicitis. No abnormal mesenteric lymphadenopat hy. No pneumoperitoneum. RETROPERITONEUM: ormal caliber abdominal aorta without aneurysm. No abnormal retroperitoneal lymphade nopathy. PELVIS: Urinary bladder is suboptimally distended. Normal-sized prostate gland. ABDOMINAL WALL: The abdominal wall is intact. BONES: No suspicious osseous lytic or blastic lesions seen. IMPRESSION: 1. Acute pancreatitis. Small amount of free fluid within the caudal aspect of the retr operitoneum and trace free fluid within bilateral paracolic gutters. No pseudocyst, hemorrhage or nec rosis. 2. Minimal right pleural effusion with minimal left basilar atelectasis. 3. Cardiomegaly. 4. Borderline enlarged right paratracheal lymph node measuring up to 1.0 cm, nonspecific. Electronically signed by: Josue Aguilar MD 07/16/2022 12:56 AM GOLD MARKER Due to temporary technical issues with the PACS/Fluency reporting system, reports are being signed by the in house radiologists without review as a courtesy to insure prompt reporting. The interpreting radiologist is fully responsible for the content of the report.
--- NOTE | 2022-07-16 12:49 | EKG ---
Test Date: 2022-07-15 Test Time: 21:08:06 Generation Technologist: HB MEASUREMENT RESULTS: Intervals: Rate: 97 MS: 184 QRSD: 144 QT: 400 QTc: 508 [place]: P: 84 MS: 184 QRS: -57 T: 95 INTERPRETIVE STATEMENTS: Sinus rhythm with occasional premature ventricular complexes Left bundle branch block Abnormal ECG Compared to ECG 09/23/2020 01:31:17 Ventricular premature complex(es) now present Electronically Signed On 07-16-22 12:48:33 WASHERY ENGINEER by Shamar De Guzman
--- NOTE | 2022-07-16 18:04 | P.PN ---
Date of Service: 07/16/22 Subjective: slight improvement hungry/thirsty ROS: 10 point ROS as noted above, otherwise negative Physical exam GEN: Alert, oriented, NAD HEENT: Normal conjunctiva, sclera anicteric CV: Regular rate and rhythm, no edema Pulm: Non-labored respirations on room air ABD: Soft, moderate epigastric tenderness to palpation Neuro: Normal speech, normal affect Problem List Acute alcohol induced pancreatitis CKD 3 Chronic systolic congestive heart failure/alcoholic cardiomyopathy Hypertension Gout Hyperlipidemia Alcohol abuse GERD ok for CLD, gentle IVF given h/o CHF lipase improving trend lipase continue home meds imaging noted GB wall thickening, pt without RUQ tenderness, will monitor Code: full Dispo: home, ~2 days Time Spent Managing Pts Care (In Minutes): 35
[2022-07-16] MEDS ORDERED: AMLODIPINE 5 MG TAB PO ONE (18:21)
[2022-07-16] MEDS ORDERED: AMLODIPINE 5 MG TAB ONE (18:55)
[2022-07-16] MEDS: METOPROLOL TAR 25 MG TAB PO SCH (21:01)
[2022-07-16 21:43] VITALS: O2SAT 99
[2022-07-17] MEDS: MORPHINE 4 MG/ML SYR IV PRN (01:55)
[2022-07-17 06:01] LABS: Absolute Lymphocytes (CBC) 0.6 K/uL (0.7-4.9); Hematocrit 42.3 % (39.6-49.0); MCV 92.2 fL (80-100); MPV 9.6 fL (7.6-11.3); RBC Red Blood Cell Count 4.59 M/uL (4.33-5.43)
[2022-07-17 06:15] LABS: Albumin 2.5 g/dL (3.4-5.0); Bilirubin Total 2.4 mg/dL (0.2-1.0); Potassium 4.9 mmol/L (3.5-5.1); Protein, Total 6.9 g/dL (6.4-8.2)
[2022-07-17] MEDS: METOPROLOL TAR 25 MG TAB PO SCH (07:55)
[2022-07-17] MEDS: ENOXAPARIN 40 MG/0.4 ML SQ SCH (07:55)
[2022-07-17 08:56] VITALS: BP 147/100; TEMP 97.1
[2022-07-17] MEDS ORDERED: AMIODARONE HCL 200 MG TAB PO SCH (09:00)
[2022-07-17] MEDS: NA CHLORIDE 0.9% 1,000 ML IV SCH (10:11)
--- NOTE | 2022-07-17 11:55 | P.DS ---
Admission Date: 07/15/22 Discharge Date: 07/17/22 Disposition: ROUTINE DISCHARGE Discharge Condition: FAIR Reason for Admission: Alcoholic Pancreatitis Brief History of Present Illness: Patient is a 62-year-old male with history of alcoholic pancreatitis, chronic systolic congestive heart failure, alcoholic cardiomyopathy, CKD3, hypertension, gout, CAD, and hyperlipidemia who presented to the emergency department with complaints of epigastric pain and nausea. Patient reports that he has been abstaining from alcohol for about 3 months now but yesterday he drank half a pint of gin. He reported that the pain feels exactly like his previous pancreatitis episodes. His labs are significant for BUN 35, creatinine 2.16, T bili 2.3, AST 300, ALT 102, troponin 828, lipase 471, etoh 40. Chest xray negative. Abdominal US showed "Borderline gallbladder wall thickening. This probably is not significant. However this can be seen with acalculous cholecystitis and should be correlated clinically." CT abdomen pelvis showed acute pancreatitis. Small amount of free fluid within the caudal aspect of the retroperitoneum and trace free fluid within bilateral paracolic gutters. No pseudocyst, hemorrhage, or necrosis. Patient admitted for further management. Hospital Course: Acute alcohol induced pancreatitis CKD 3 Chronic systolic congestive heart failure/alcoholic cardiomyopathy Hypertension Gout Hyperlipidemia Alcohol abuse GERD Patient admitted to the medical floor and treated supportively with gentle IV fluid. He has a history of CHF which was stable. Lipase was monitored which improved and normalized. Patient's symptoms improved to baseline and tolerated liquid diet continued home meds during the hospital stay. Noted mildly elevated troponin which trended down. No ACS Patient clinically improved and deemed stable for discharge. Vital Signs/Physical Exam: Temp Pulse Resp BP Pulse Ox 97.1 F 86 18 147/100 H 100 07/17/22 08:00 07/17/22 08:00 07/17/22 08:00 07/17/22 08:00 07/17/22 08:00 General: Alert, In no apparent distress, Oriented x3 HEENT: Mucous membr. moist/pink Neck: Supple, JVD not distended Respiratory: Clear to auscultation bilaterally, Normal air movement Cardiovascular: No edema, Regular rate/rhythm, Normal S1 S2 Gastrointestinal: Normal bowel sounds, Soft and benign, Non-distended, No tenderness Musculoskeletal: No swelling Integumentary: No rashes Neurological: Normal strength at 5/5 x4 extr Laboratory Data at Discharge: WBC 4.00 K/uL (4.3-10.9) L 07/17/22 05:13 Hgb 13.5 g/dL (13.6-17.9) L 07/17/22 05:13 Hct 42.3 % (39.6-49.0) 07/17/22 05:13 Plt Count 154 K/uL (152-406) 07/17/22 05:13 Sodium 136 mmol/L (136-145) 07/17/22 05:13 Potassium 4.9 mmol/L (3.5-5.1) 07/17/22 05:13 BUN 34 mg/dL (7-18) H 07/17/22 05:13 Creatinine 1.91 mg/dL (0.55-1.3) H 07/17/22 05:13 Glucose 98 mg/dL (74-106) 07/17/22 05:13 Phosphorus 4.1 mg/dL (2.5-4.9) 07/16/22 02:20 Magnesium 2.0 mg/dL (1.8-2.4) 07/16/22 02:20 Total Bilirubin 2.4 mg/dL (0.2-1.0) H 07/17/22 05:13 AST 110 U/L (15-37) H 07/17/22 05:13 ALT 59 U/L (12-78) 07/17/22 05:13 Alkaline Phosphatase 80 U/L (45-117) 07/17/22 05:13 Triglycerides 70 mg/dL (<150) 07/16/22 02:20 Cholesterol 167 mg/dL (<200) 07/16/22 02:20 HDL Cholesterol 94 mg/dL (40-60) H 07/16/22 02:20 Cholesterol/HDL Ratio 1.78 07/16/22 02:20 Lipase 370 U/L (73-393) 07/17/22 05:13 Home Medications: Metoprolol Tartrate 1 tab PO BID 01/18/21 Amiodarone HCl [Pacerone] 1 tab PO DAILY 09/05/21 Atorvastatin Calcium 1 tab PO DAILY 09/05/21 Cetirizine HCl [Zyrtec] 1 cap PO DAILY 09/05/21 Gabapentin 1 cap PO DAILYPRN PRN 09/05/21 Sacubitril/Valsartan [Entresto 49 mg-51 mg Tablet] 1 tab PO BID 09/05/21 Pantoprazole [Protonix Tab*] 40 mg PO DAILY #30 tab 09/06/21 Diet: AHA Activity: Ad pelon Followup: CONCHITA DURAN [Primary Care Provider] - 1-2 Weeks Time spent managing pt's care (in minutes): 33
== END 2022-07-17 12:10 | disposition home or self-care (01) | DRG 439 ==
LOC: ER 18:43 → ERHOLD 22:59 → 2ND 07-16 19:48
PROVIDERS: ADMIT Hospitalist; ATTEND Internal Medicine
DX: K85.20 Alcohol induced acute pancreatitis without necrosis or infection (principal); I13.0 Hypertensive heart and chronic kidney disease with heart failure and stage 1 through stage 4 chronic kidney disease, or unspecified chronic kidney disease; I42.6 Alcoholic cardiomyopathy; I50.22 Chronic systolic (congestive) heart failure; N18.32 Chronic kidney disease, stage 3b; E78.5 Hyperlipidemia, unspecified; M10.9 Gout, unspecified; K21.9 Gastro-esophageal reflux disease without esophagitis; F10.10 Alcohol abuse, uncomplicated; I25.10 Atherosclerotic heart disease of native coronary artery without angina pectoris; Z95.5 Presence of coronary angioplasty implant and graft; Z88.0 Allergy status to penicillin; Z86.73 Personal history of transient ischemic attack (TIA), and cerebral infarction without residual deficits; Z79.899 Other long term (current) drug therapy; Z20.822 Contact with and (suspected) exposure to COVID-19
CPT/HCPCS: 36415; 71045; 71250; 74176; 76705; 80053; 80061; 80320; 82550; 82553; 83690; 83735; 83880; 84100; 84439; 84443; 84484; 85025; 87811; 93005; 99285; J0360; J1650; J7030

== ENCOUNTER 2022-08-13 00:07 | Inpatient (IN) | payer OTHER ==
[2022-08-13] MEDS ORDERED: MORPHINE 4 MG/ML SYR ONE ×2 (00:59→02:47)
[2022-08-13] MEDS ORDERED: ONDANSETRON 4 MG/2 ML VIAL ONE ×2 (00:59→07:45)
[2022-08-13] MEDS ORDERED: PANTOPRAZOLE 40 MG INJ ONE (00:59)
[2022-08-13] MEDS ORDERED: NA CHLORIDE 0.9% 1,000 ML ONE ×2 (01:00→02:47)
[2022-08-13 01:22] LABS: Absolute Lymphocytes (CBC) 1.5 K/uL (0.7-4.9); Hematocrit 49.8 % (39.6-49.0); Lymphocytes % 24.5 % (15.3-44.8); MCV 90.9 fL (80-100); RBC Red Blood Cell Count 5.47 M/uL (4.33-5.43)
[2022-08-13 01:55] LABS: Albumin 3.3 g/dL (3.4-5.0); Bilirubin Total 2.3 mg/dL (0.2-1.0); Potassium 4.9 mmol/L (3.5-5.1)
[2022-08-13 02:00] LABS: Troponin High Sensitivity 1667.5 pg/mL (<58.9)
[2022-08-13 02:03] LABS: SARS-COV-2 RT PCR NEGATIVE (NEGATIVE)
--- NOTE | 2022-08-13 02:31 | EDPHYS ---
Physician Documentation [facility] Name: Natan Paulino Sr Age: 62 yrs Sex: Male : 1960 Arrival Date: 08/13/2022 Time: 00:10 Bed 6 Private MD: ED Physician Raffy Mansfield HPI: 08/13 00:21 This 62 yrs old Black Male presents to ER via Unassigned with complaints of Abdominal cp Pain. 00:21 The patient presents with abdominal pain in the epigastric area. Onset: The cp symptoms/episode began/occurred yesterday. Associated signs and symptoms: Pertinent positives: nausea and vomiting, vomiting blood, Pertinent negatives: constipation, diarrhea, fever. The symptoms are described as constant. Severity of pain: in the emergency department the pain is unchanged. 00:22 The patient has experienced similar episodes in the past, multiple times, today's cp symptoms are similar, to when the patient was apparently diagnosed with pancreatitis. Historical: - Allergies: 00:38 PENICILLINS; vc1 - Home Meds: 00:38 carvedilol Oral [Active]; Lasix 20 mg Oral tab 1 tab once daily [Active]; lisinopril 10 vc1 mg Oral tab 1 tab once daily [Active]; Methocarbamol Oral [Active]; metoprolol tartrate 25 mg Oral tab 1 tab 2 times per day [Active]; - PMHx: 00:38 CHF; Gout; osteoarthritis; Pancreatitis; Rheumatoid Arthritis; TIA; Hypertension; vc1 - PSHx: 00:38 finger; heart stent; Stented artery; vc1 - Immunization history:: Client reports receiving the 2nd dose of the Covid vaccine. - Social history:: Smoking status: Patient denies any tobacco usage or history of. ROS: 00:30 Constitutional: Negative for body aches, chills, fever, poor PO intake. cp 00:30 Eyes: Negative for injury, pain, redness, and discharge. cp 00:30 Abdomen/GI: Positive for abdominal pain, nausea, vomiting, hematemesis, of the epigastric area. Exam: 00:33 Constitutional: The patient appears in no acute distress, alert, awake, cp non-diaphoretic, non-toxic, well developed, well nourished, uncomfortable. 00:33 Head/Face: Normocephalic, atraumatic. cp 00:33 Eyes: Periorbital structures: appear normal, Conjunctiva: normal, no exudate, no injection, Sclera: no appreciated abnormality, Lids and lashes: appear normal, bilaterally. 00:33 ENT: External ear(s): are unremarkable, Nose: is normal, Mouth: Lips: moist, Oral mucosa: moist, Posterior pharynx: Airway: no evidence of obstruction, patent. 00:33 Chest/axilla: Inspection: normal. 00:33 Cardiovascular: Rate: normal, Rhythm: regular, Edema: ankle edema, that is mild, JVD: is not appreciated. 00:33 Respiratory: the patient does not display signs of respiratory distress, Respirations: normal, no use of accessory muscles, no retractions, labored breathing, is not present, Breath sounds: are clear throughout, no decreased breath sounds, no stridor, no wheezing. 00:33 Abdomen/GI: Inspection: distension, that is mild, Bowel sounds: active, all quadrants, Palpation: soft, in all quadrants, severe abdominal tenderness, in the epigastric area, voluntary guarding, is elicited in the epigastric area. 00:33 Back: CVA tenderness, is absent. 00:33 Neuro: Orientation: to person, place \T\ time. Mentation: is normal, Motor: moves all fours, strength is normal, Gait: is steady. 00:56 ECG was reviewed by the Attending Physician. cp Vital Signs: 00:35 BP 153 / 128; Pulse 120; Resp 28; Temp 96.8; Pulse Ox 100% ; Weight 97.52 kg; Height 6 vc1 ft. 3 in. (190.50 cm); Pain 10/10; 00:35 Body Mass Index 26.87 (97.52 kg, 190.50 cm) vc1 MDM: 00:25 Patient medically screened. cp 01:00 Differential diagnosis: AAA, acute coronary syndrome, bowel obstruction, cholecystitis, cp Cholelithiasis, sympomatic leaking abdominal aortic aneurysm, pancreatitis. 02:55 Data reviewed: vital signs, nurses notes, lab test result(s), EKG, radiologic studies, cp CT scan, plain films. 02:55 Test interpretation: by ED physician or midlevel provider: ECG, plain radiologic cp studies. Counseling: I had a detailed discussion with the patient and/or guardian regarding: the historical points, exam findings, and any diagnostic results supporting the discharge/admit diagnosis, the presence of at least one elevated blood pressure reading (>120/80) during this emergency department visit, lab results, radiology results, the need for further work-up and treatment in the hospital. Physician consultation: Denver TOMLIN was contacted at 02:50, regarding admission, to the telemetry unit. patient's condition, and will see patient in ED, shortly. 08/13 00:21 Order name: CBC with Diff; Complete Time: 01:54 cp 08/13 00:21 Order name: CMP; Complete Time: 02:52 cp 08/13 00:21 Order name: Lipase; Complete Time: 02:52 cp 08/13 00:21 Order name: Urine Microscopic Only 08/13 00:21 Order name: Lactate w/ 2H reflex if indic.; Complete Time: 02:02 08/13 00:21 Order name: Troponin High Sensitivity; Complete Time: 02:52 08/13 00:30 Order name: ETOH Level; Complete Time: 01:59 08/13 00:30 Order name: UDS 08/13 00:31 Order name: COVID-19/FLU A+B; Complete Time: 02:18 08/13 00:36 Order name: Blood Culture Adult (2) 08/13 01:04 Order name: SARS RAPID la1 08/13 02:23 Order name: NT PRO-BNP; Complete Time: 02:52 EDOR 08/13 04:06 Order name: Urine Dipstick-Ancillary EDOR 08/13 00:21 Order name: IV Saline Lock; Complete Time: 01:21 08/13 00:21 Order name: XRAY Chest (1 view) 08/13 00:21 Order name: EKG; Complete Time: 00:22 08/13 01:12 Order name: CT Abd/Pelvis - Without Contrast 08/13 01:16 Order name: Abdomen EDOR 08/13 05:44 Order name: Lactate Sepsis 2 HR Follow-up [facility] 08/13 06:07 Order name: Troponin High Sensitivity EDOR 08/13 10:07 Order name: US EDOR 08/13 00:21 Order name: Labs collected and sent; Complete Time: 01:22 08/13 00:21 Order name: Urine Dipstick-Ancillary (obtain specimen); Complete Time: 04:10 cp 08/13 00:21 Order name: EKG - Nurse/Tech; Complete Time: 00:56 cp 08/13 02:22 Order name: NPO; Complete Time: 02:25 la1 EC:56 Rate is 109 beats/min. Rhythm is regular. AL interval is normal. QRS interval is cp prolonged at 144 msec. QT interval is normal. T waves are Inverted in leads I, aVL, V2. Interpreted by me. Reviewed by me. Administered Medications: :21 Drug: morphine 4 mg Route: IVP; Infused Over: 4 mins; Site: left antecubital; aa9 05:52 Follow up: Response: No adverse reaction aa9 01:21 Drug: NS 0.9% 1000 ml Route: IV; Rate: 1000 ml/hr; Site: left antecubital; aa9 05:51 Follow up: Response: No adverse reaction; IV Status: Completed infusion; IV Intake: aa9 1000ml 01:22 Drug: Zofran (Ondansetron) 4 mg Route: IVP; Site: left antecubital; aa9 05:52 Follow up: Response: No adverse reaction aa9 01:22 Drug: ProTONIX (pantoprazole) 40 mg Route: IVP; Site: left antecubital; aa9 05:52 Follow up: Response: No adverse reaction aa9 02:37 Drug: Lovenox (enoxaparin) 1 mg/kg Route: Sub-Q; Site: abdomen; aa9 05:52 Follow up: Response: No adverse reaction aa9 02:37 Drug: Aspirin Chewable Tablet 324 mg Route: PO; aa9 05:52 Follow up: Response: No adverse reaction aa9 02:48 Drug: morphine 4 mg Route: IVP; Infused Over: 4 mins; Site: left forearm; kl 05:53 Follow up: Response: No adverse reaction aa9 02:48 Drug: NS 0.9% 1000 ml Route: IV; Rate: 100 ml/hr; Site: left antecubital; kl 10:12 Follow up: Response: No adverse reaction; IV Status: Completed infusion; IV Intake: ll1 1000ml Disposition Summary: 08/13/22 02:30 Hospitalization Ordered Hospitalization Status: Inpatient Admission cp Condition: Stable cp Problem: new cp Symptoms: have improved cp Bed/Room Type: Standard cp Provider: Loy Washington(08/13/22 03:09) la1 Location: Telemetry/MedSurg (Inpatient)(08/13/22 09:05) em1 Room Assignment: 407(08/13/22 09:05) em1 Diagnosis - Non ST elevation MT cp - Nausea with vomiting, unspecified cp - Epigastric pain cp - Unspecified kidney failure cp Discharge Instructions: - Discharge Summary Sheet wm Forms: - Medication Reconciliation Form cp - SBAR form wm Addendum: 08/15/2022 18:10 Co-signature as Attending Physician, Raffy Mansfield MD I agree with the assessment and r t plan of care. Signatures: Dispatcher [employer] EDMS Yee Louis, RN RN [facility], James em1 Denver Brown, BARGAIN TABLE CLERK-C BARGAIN TABLE CLERK-Cla1 Brandon Patel PA PA cp Garcia, Cindy, RADHIKA RN cg Fay Frank RN RN vc1 Rachael Parikh RN RN aa9 Raffy Mansfield MD MD rt Preston Louis RN ll1 Corrections: (The following items were deleted from the chart) 08/13 02:21 02:20 PROBNP+C.LAB.BRZ ordered. EDMS EDMS 03:09 02:30 Abram Cerrato cp la1 03:35 02:30 Telemetry/MedSurg (Inpatient) cp cg 03:35 02:30 cp cg 09:05 03:35 [facility] ER HOLD cg em1 09:05 03:35 ERHOLD- cg em1
--- NOTE | 2022-08-13 02:31 | ER ---
Nurse's Notes [facility] Name: Natan Paulino Sr Age: 62 yrs Sex: Male : 1960 Arrival Date: 08/13/2022 Time: 00:10 Bed 6 Private MD: Diagnosis: Non ST elevation UT;Nausea with vomiting, unspecified;Epigastric pain;Unspecified kidney failure Presentation: 08/13 00:35 Chief complaint: Patient states: "I had a little drink yesterday and I have a history vc1 of pancreatic cancer, now my stomach hurts so bad.". Coronavirus screen: Vaccine status: Patient reports receiving the 2nd dose of the covid vaccine. Amitive Client denies travel out of the [place] in the last 14 days. At this time, the client does not indicate any symptoms associated with coronavirus-19. Ebola Screen: No symptoms or risks identified at this time. Initial Sepsis Screen: Does the patient meet any 2 criteria? RR > 20 per min. Temp <36.0*C (96.8*F)) or > 38.3*C (100.9*F). HR > 90 bpm. Yes Does the patient have a suspected source of infection? Yes: Acute abdominal pain If YES to both, name of provider notified: Brandon DURHAM Risk Assessment: Do you want to hurt yourself or someone else? Patient reports no desire to harm self or others. Onset of symptoms was August 12, 2022. 00:35 Method Of Arrival: Ambulatory vc1 00:35 Acuity: NINO 3 vc1 Triage Assessment: 00:40 General: Appears in no apparent distress. uncomfortable, Behavior is calm, cooperative, vc1 appropriate for age. Pain: Complains of pain in abdomen and epigastric area Pain radiates to left upper quadrant Pain currently is 10 out of 10 on a pain scale. EENT: No deficits noted. No signs and/or symptoms were reported regarding the EENT system. Neuro: Level of Consciousness is awake, alert, obeys commands, Oriented to person, place, time, situation, Appropriate for age. Cardiovascular: No deficits noted. Respiratory: Airway is patent Respiratory effort is even, unlabored, Respiratory pattern is symmetrical, tachypnea. GI: Abdomen is round Reports upper abdominal pain, constipation, epigastric pain. : No deficits noted. No signs and/or symptoms were reported regarding the genitourinary system. Derm: No deficits noted. No signs and/or symptoms reported regarding the dermatologic system. Derm: Skin temperature is cool. Musculoskeletal: No deficits noted. No signs and/or symptoms reported regarding the musculoskeletal system. Historical: - Allergies: 00:38 PENICILLINS; vc1 - Home Meds: 00:38 carvedilol Oral [Active]; Lasix 20 mg Oral tab 1 tab once daily [Active]; lisinopril 10 vc1 mg Oral tab 1 tab once daily [Active]; Methocarbamol Oral [Active]; metoprolol tartrate 25 mg Oral tab 1 tab 2 times per day [Active]; - PMHx: 00:38 CHF; Gout; osteoarthritis; Pancreatitis; Rheumatoid Arthritis; TIA; Hypertension; vc1 - PSHx: 00:38 finger; heart stent; Stented artery; vc1 - Immunization history:: Client reports receiving the 2nd dose of the Covid vaccine. - Social history:: Smoking status: Patient denies any tobacco usage or history of. Screenin:39 [facility] ED Fall Risk Assessment (Adult) History of falling in the last 3 months, vc1 including since admission No falls in past 3 months (0 pts) Confusion or Disorientation No (0 pts) Intoxicated or Sedated No (0 pts) Impaired Gait No (0 pts) Mobility Assist Device Used No (0 pt) Altered Elimination No (0 pt) Score/Fall Risk Level 0 - 2 = Low Risk. Abuse screen: Denies threats or abuse. 00:42 Nutritional screening: No deficits noted. Tuberculosis screening: No symptoms or risk vc1 factors identified. Assessment: 00:42 GI: Abdomen is tender to palpation Guarding noted. vc1 05:51 GI: Bowel sounds present X 4 quads. aa9 Vital Signs: 00:35 BP 153 / 128; Pulse 120; Resp 28; Temp 96.8; Pulse Ox 100% ; Weight 97.52 kg; Height 6 vc1 ft. 3 in. (190.50 cm); Pain 10/10; 00:35 Body Mass Index 26.87 (97.52 kg, 190.50 cm) vc1 ED Course: 00:10 Patient arrived in ED. ja2 00:19 Brandon Patel PA is PHCP. cp 00:19 Raffy Mansfield MD is Attending Physician. cp 00:37 Triage completed. vc1 00:39 Patient has correct armband on for positive identification. Bed in low position. Call vc1 light in reach. Client placed on continuous cardiac and pulse oximetry monitoring. NIBP monitoring applied. Notified Nurse Practitioner and/or Physician Leader Assembler of vital signs. 00:42 XRAY Chest (1 view) In Process Unspecified. EDMS 00:55 Rachael Parikh, RN is Primary Nurse. aa9 01:21 COVID-19/FLU A+B Sent. aa9 01:22 Inserted saline lock: 20 gauge in left antecubital area, using aseptic technique. Blood aa9 collected. 01:52 Abdomen In Process Unspecified. EDMS 02:30 Abram Cerrato MD is Hospitalizing Provider. cp 03:09 Loy Washington MD is Hospitalizing Provider. la1 04:10 Urine Microscopic Only Sent. aa9 05:50 No provider procedures requiring assistance completed. Patient admitted, IV remains in aa9 place. 05:51 Arm band placed on. aa9 08:16 Primary Nurse role handed off by Rachael Parikh, RN ll1 08:16 Preston Louis, RADHIKA is Primary Nurse. ll1 Administered Medications: 01:21 Drug: morphine 4 mg Route: IVP; Infused Over: 4 mins; Site: left antecubital; aa9 05:52 Follow up: Response: No adverse reaction aa9 01:21 Drug: NS 0.9% 1000 ml Route: IV; Rate: 1000 ml/hr; Site: left antecubital; aa9 05:51 Follow up: Response: No adverse reaction; IV Status: Completed infusion; IV Intake: aa9 1000ml 01:22 Drug: Zofran (Ondansetron) 4 mg Route: IVP; Site: left antecubital; aa9 05:52 Follow up: Response: No adverse reaction aa9 01:22 Drug: ProTONIX (pantoprazole) 40 mg Route: IVP; Site: left antecubital; aa9 05:52 Follow up: Response: No adverse reaction aa9 02:37 Drug: Lovenox (enoxaparin) 1 mg/kg Route: Sub-Q; Site: abdomen; aa9 05:52 Follow up: Response: No adverse reaction aa9 02:37 Drug: Aspirin Chewable Tablet 324 mg Route: PO; aa9 05:52 Follow up: Response: No adverse reaction aa9 02:48 Drug: morphine 4 mg Route: IVP; Infused Over: 4 mins; Site: left forearm; kl 05:53 Follow up: Response: No adverse reaction aa9 02:48 Drug: NS 0.9% 1000 ml Route: IV; Rate: 100 ml/hr; Site: left antecubital; kl 10:12 Follow up: Response: No adverse reaction; IV Status: Completed infusion; IV Intake: ll1 1000ml Medication: 00:39 VIS not applicable for this client. vc1 Intake: 05:51 IV: 1000ml; Total: 1000ml. aa9 10:12 IV: 1000ml; Total: 2000ml. ll1 Outcome: 02:30 Decision to Hospitalize by Provider. cp 05:50 Admitted to ER Hold. Please see [facility] for further documentation. aa9 05:50 Condition: stable 05:50 Instructed on the need for admit. 10:10 Patient left the ED. ll1 Signatures: Dispatcher [employer] EDMS Yee Louis, RADHIKA RN Denver Jimenez, RAILROAD BAGGAGE PORTER-C RAILROAD BAGGAGE PORTER-Cla1 Brandon Patel PA PA Preston Duron RN RN ll1 Janice Yee Vanessa, RN RN vc1 Rachael Parikh RN RN aa9
[2022-08-13] MEDS ORDERED: ENOXAPARIN 100 MG/ML SYR SQ ONE (02:36)
[2022-08-13] MEDS ORDERED: ASPIRIN 81 MG CHEWABLE TABLET ONE ×2 (02:36→08:26)
--- NOTE | 2022-08-13 03:31 | P.HP ---
Certification for Inpatient Patient admitted to: Inpatient With expected LOS: >2 Midnights Patient will require the following post-hospital care: None Practitioner: I am a practitioner with admitting privileges, knowledge of patient current condition, hospital course, and medical plan of care. Services: Services provided to patient in accordance with Admission requirements found in Title 42 Section 412.3 of the Code of Federal Regulations Patient History Date of Service: 08/13/22 Reason for admission: NSTEMI, epigastric pain History of Present Illness: 62-year-old male with history of chronic systolic congestive heart failure, hypertension, alcoholic pancreatitis, CKD 3, hyperlipidemia, GERD presents to the emergency department for epigastric pain. He reports that he drank a daiquiri yesterday and his pain began today feels typical of his pancreatitis. He was evaluated in the emergency department and his labs were significant for an acute kidney injury with a creatinine of 2.76 GFR of 25 BUN of 34 bicarb of 17 lactic acid 3.3 high-sensitivity troponin 1667.5 BNP of 17,038. CT of the abdomen pelvis was performed without contrast given his BRIDGER which revealed no evidence for nephrolithiasis and/or hydronephrosis, small right pleural effusion with minimal compressive atelectasis changes. Small amount of ascites. Cardiomegaly. Patient with significant tenderness to palpation of the epigastrium as well as voluntary guarding of the area, his lipase was within normal limits at this time. ED provider gave patient Lovenox, aspirin for NSTEMI. ED provider wishes to admit for further evaluation and management of NSTEMI, epigastric pain suspected early pancreatitis. Allergies Penicillins Allergy (Verified 05/03/20 05:24) Hives/Rash Home Medications: Metoprolol Tartrate 1 tab PO BID 01/18/21 Amiodarone HCl [Pacerone] 1 tab PO DAILY 09/05/21 Atorvastatin Calcium 1 tab PO DAILY 09/05/21 Cetirizine HCl [Zyrtec] 1 cap PO DAILY 09/05/21 Gabapentin 1 cap PO DAILYPRN PRN 09/05/21 Sacubitril/Valsartan [Entresto 49 mg-51 mg Tablet] 1 tab PO BID 09/05/21 Pantoprazole [Protonix Tab*] 40 mg PO DAILY #30 tab 09/06/21 - Past Medical/Surgical History Diabetic: No -: Hypertension -: Systolic congestive heart failure secondary to alcoholic cardiomyopathy -: Alcoholic Pancreatitis -: TIA -: Gout -: CKD [address] Rossi -: CAD -: Cardiac stent placement July 2019 -: removal of L 5th digit Psychosocial/ Personal History: Patient currently lives at home with his and is on disability due to heart condition. - Family History Father -: Cancer, Liver disease Mother -: GI disease, Other (see notes) Notes: NA - Social History Smoking Status: Never smoker Alcohol use: Yes CD- Drugs: No Caffeine use: Yes Place of Residence: Home Review of Systems 10-point ROS is otherwise unremarkable Respiratory: Shortness of Breath Gastrointestinal: Nausea, Abdominal Pain Physical Examination - Physical Exam General: Alert, In no apparent distress, Oriented x3 HEENT: Atraumatic, PERRLA, Mucous membr. moist/pink, EOMI, Sclerae nonicteric Neck: Supple, 2+ carotid pulse no bruit, No LAD, Without JVD or thyroid abnormality Respiratory: Clear to auscultation bilaterally, Normal air movement Cardiovascular: Regular rate/rhythm, Normal S1 S2 Capillary refill: <2 Seconds Gastrointestinal: Normal bowel sounds, Tenderness (Moderate epigastric tenderness), Guarding (Voluntary guarding of the epigastrium) Musculoskeletal: No tenderness Integumentary: No rashes Neurological: Normal gait, Normal speech, Normal strength at 5/5 x4 extr, Normal tone, Normal affect Lymphatics: No axilla or inguinal lymphadenopathy - Studies Laboratory Data (last 24 hrs) 08/13/22 01:02: Sodium 138, Potassium 4.9, BUN 34 H, Creatinine 2.76 H, Glucose 82, Total Bilirubin 2.3 H, AST 54 H, ALT 29, Alkaline Phosphatase 106, Lipase 462 H 08/13/22 01:02: WBC 6.10, Hgb 16.0, Hct 49.8 H, Plt Count 129 L Assessment and Plan - Plan Assessment: Epigastric painhistory of alcoholic pancreatitis NSTEMI Acute on chronic systolic congestive heart failurealcoholic cardiomyopathy BRIDGER on CKD 3 Hypertension Hyperlipidemia Plan: Epigastric painhistory of alcoholic pancreatitis: Suspect early pancreatitis, pain is similar to previous also had alcoholic beverage yesterday. We will trend lipase CT negative for acute findings for the pancreas. NPO, as needed pain medications and antiemetics. Moderate epigastric tenderness, voluntary guarding noted. NSTEMI: Patient with previous episodes of elevated troponin, has history of systolic heart failure/alcoholic cardiomyopathy BNP significantly elevated, small right pleural effusion noted. Trace peripheral edema on exam. Will order for another echocardiogram, cardiology consult. Continue therapeutic Lovenox. Acute on chronic systolic congestive heart failurealcoholic cardiomyopathy: Cardiology consult in place, echocardiogram ordered. Patient on gentle maintenance fluids given suspected early acute pancreatitis, BRIDGER. Appreciate further input from cardiology/nephrology. Patient not requiring any oxygen, not significantly dyspneic. BRIDGER on CKD 3: Continue as above, renal ultrasound ordered and nephrology group consulted. Hypertension: We will need to hold patient's Entresto given his acute kidney injury, evaluate other medications, restart as appropriate. Hyperlipidemia: Continue home medications. DVT PPX: Therapeutic Lovenoxrenally dosed Code status: Full Discharge Plan: Home Plan to discharge in: Greater than 2 days - Advance Directives Does patient have a Living Will: No Does patient have a Durable POA for Healthcare: No - Code Status/Comfort Care Code Status Assessed: Yes (Full code) Critical Care: No Time Spent Managing Pts Care (In Minutes): 70
[2022-08-13] MEDS ORDERED: ONDANSETRON 4 MG/2 ML VIAL IV PRN (03:47)
[2022-08-13] MEDS ORDERED: HYDRALAZINE HCL 20 MG/ML VIAL IV PRN (03:47)
[2022-08-13] MEDS ORDERED: D5W 1,000 ML with NA BICARB 8.4% 150 MEQ IV SCH ×4 (04:00→16:46)
[2022-08-13 04:06] LABS: Urine Blood 1+ (Negative); Urine Glucose Negative (Negative); Urine Protein 3+ (Negative); Urine Specific Gravity >=1.030 (1.005-1.030)
[2022-08-13 04:25] LABS: Urine Bacteria None Seen /HPF (<20); Urine Mucus Slight /HPF (None Seen); Urine RBC None Seen /HPF (None Seen)
[2022-08-13 04:27] LABS: Barbiturates NEGATIVE (NEGATIVE); Benzodiazepines NEGATIVE (NEGATIVE); Cocaine POSITIVE (NEGATIVE); METHAMPHETAM NEGATIVE (NEGATIVE); Methadone NEGATIVE (NEGATIVE); Opiates POSITIVE (NEGATIVE); Phencyclidine NEGATIVE (NEGATIVE); THC Cannibis NEGATIVE (NEGATIVE)
[2022-08-13] MEDS ORDERED: D5W 1,000 ML IV ONE (04:33)
[2022-08-13] MEDS ORDERED: SODIUM BICARB 50 MEQ/50ML VIAL ONE (04:56)
[2022-08-13] MEDS ORDERED: HYDROMORPHONE HCL 1 MG/ML INJ ONE (07:45)
[2022-08-13] MEDS: HYDROMORPHONE HCL 1 MG/ML INJ IV PRN ×4 (07:49→22:44)
[2022-08-13] MEDS ORDERED: INFLUENZA VACCINE (for 6+ mo) 0.5 ML DOSE IMVAC ONE ×2 (08:00→08:26)
[2022-08-13] MEDS: ASPIRIN EC 81 MG TAB PO SCH (08:44)
--- NOTE | 2022-08-13 10:07 | RAD REPORT ---
EXAM DESCRIPTION: US - Renal Ultrasound-Complete - 08/13/2022 5:49 am CLINICAL HISTORY: BRIDGER Flank pain COMPARISON: Abdomen Exam Limited dated 07/15/2022 FINDINGS: Both kidneys are increased in echogenicity The right kidney measures 9.1 x 5.9 x 3.7 cm. No hydronephrosis, focal mass or perinephric fluid. Sma ll benign right renal cyst. The left kidney measures 9.6 x 6.0 x 4.1 cm. No hydronephrosis, focal mass or perinephric fluid. The urinary bladder is incompletely distended without gross abnormality seen. IMPRESSION: Echogenic kidneys are noted bilaterally compatible with underlying medical renal disease .
[2022-08-13] MEDS ORDERED: SACUBITRIL/VALSARTAN 49/51 MG TAB PO SCH (10:45)
[2022-08-13] MEDS: AMIODARONE HCL 200 MG TAB PO SCH (11:29)
[2022-08-13] MEDS: FUROSEMIDE 20 MG TABLET PO SCH (11:30)
[2022-08-13] MEDS: METOPROLOL TAR 25 MG TAB PO SCH ×2 (11:31→21:22)
--- NOTE | 2022-08-13 14:12 | CON ---
Date of Consultation: 08/13/2022 Reason For Consultation: Elevated troponin. History Of Present Illness: A 62-year-old male with history of systolic heart failure, hypertension, alcoholic pancreatitis, chronic kidney disease, dyslipidemia, presented to the emergency room with e pigastric pain. He said he was with the family and he had a drink, which he is not supposed to, and shortly after that he started having epigastric pain radiating to his back. Denies having any shortn ess of breath or chest pain. Past Medical History: As outlined above in the HPI. Medications: Refer to reconciliation sheet for detailed list. Allergies: PENICILLIN. Family History: No premature coronary artery disease or cancer. Social History: He does not smoke and he quit drinking except a drink yesterday. Does not use any d rugs. Review of Systems: All systems reviewed and they were negative except what mentioned in HPI. Physical Examination: Vital Signs: Reviewed. Head and Neck: Pupils are equal, reactive to light. Intact eye movements. No JVD. No cervical lym phadenopathy. Neck is supple. Thyroid is not enlarged. Lungs: Clear to auscultation bilaterally. No rhonchi, wheezing, or crackles. No accessory muscle u se. Heart: Regular rate and rhythm. No extra sounds. Abdomen: Soft, tender in the epigastric area. No rigidity or rebound. Extremities: No edema, clubbing, or cyanosis. Intact pulses. Skin: No rash. Neurologic: Alert, awake, oriented x3. No acute focal deficits appreciated. Investigations: Troponin initially was 1667 and now it is 1422. BUN is 34, creatinine 2.76, and lip ase is 462. Hemoglobin is 16. Assessment And Recommendations: 1.Elevated troponin, known history of coronary artery disease, but he does not have any chest pain. Troponin is trending down. This could be demand ischemia due to elevated creatinine. We will start with a stress test. Ordered a Lexiscan nuclear stress test and if it is positive only, we will then justify the risk of contrast exposure through the left heart catheterization. We will discuss furth er after the stress test results. 2.Congestive heart failure. Appears to be euvolemic. Continue to monitor. 3.Acute on chronic pancreatitis and he is being managed by being n.p.o. and pain medications. /MODL Voice ID: [id number] Report ID: [id number]
--- NOTE | 2022-08-13 14:35 | RAD REPORT ---
EXAM DESCRIPTION: Chest Radiography COMPARISON: None. CLINICAL HISTORY: [facility] upper abdomen pain FINDINGS: A single AP view of the chest demonstrates a normal cardiomediastinal silhouette. No pneumothorax or pleural effusion. Mild left basilar opacities. Osseous structures are intact. IMPRESSION: Mild left basilar opacities may represent atelectasis or early pneumonia. Electronically signed by: Crispin Spencer MD 08/13/2022 12:52 AM ROTOR CASTING MACHINE OPERATOR Due to temporary technical issues with the PACS/Fluency reporting system, reports are being signed by the in house radiologists without review as a courtesy to insure prompt reporting. The interpreting radiologist is fully responsible for the content of the report.
--- NOTE | 2022-08-13 14:36 | RAD REPORT ---
EXAM DESCRIPTION: Abdomen Pelvis Wo Contrast 08/13/2022 2:05 AM INTERVENTIONAL TECH CLINICAL HISTORY: 62 years, Male, epigastric pain COMPARISON: 07/15/2022. TECHNIQUE: Multiple transaxial tomograms of the abdomen and pelvis were performed from the lung base s to the symphysis pubis utilizing 5 mm slice thickness at 5 mm interval reconstruction, without admi nistration of IV and oral contrast. Multiplanar reformats in the sagittal and coronal plane were generated and reviewed. This exam was performed according to our departmental dose-optimization protocol, which includes auto mated exposure control, adjustment of the mA and/or kV according to patient size and/or use of iterat katja reconstruction technique. FINDINGS: The lack of IV and oral contrast limits evaluation of solid organs, subtle lesions cannot be excluded. The lung bases demonstrate small right pleural effusion with very minimal compressive atelectatic deejay nges. Cardiomegaly. Grossly the unopacified liver, gallbladder, pancreas, spleen and adrenal glands demonstrate to be wit hin normal limits, no significant focal lesions were identified. There is small trace of subcapsula r hepatic and splenic fluid tracking along right paracolic gutter and down to the pelvis correspondin g to small trace amount of ascites. The kidneys demonstrate grossly unremarkable. There is no evidence for nephrolithiasis and/or hydro nephrosis. There is a parapelvic mid pole right renal cyst measuring 1.2 cm. No follow-up is recomm ended. Grossly the unopacified stomach, small bowel and large bowel demonstrate to be within normal limits. There is small amount of the contrast within the distal small bowel and large bowel. There is no evid ence for bowel dilatation/or free air. The urinary bladder was partially distended with no gross abnormalities. The prostate gland is unrema rkable The aorta demonstrate minimal atheromatous plaque formation. There is no retroperitoneal lym phadenopathy. There is no evidence for ascites. The bone windows demonstrate minimal degenerative c hanges and anterior spondylosis at L5/S1 disc level. IMPRESSION: No evidence for nephrolithiasis and/or hydronephrosis. Small right pleural effusion with very minimal compressive atelectatic changes. Small amount of ascites. Cardiomegaly. Electronically signed by: Tae Johnson MD 08/13/2022 2:08 AM INTERVENTIONAL TECH Due to temporary technical issues with the PACS/Fluency reporting system, reports are being signed by the in house radiologists without review as a courtesy to insure prompt reporting. The interpreting radiologist is fully responsible for the content of the report.
--- NOTE | 2022-08-13 16:03 | EKG ---
Test Date: 2022-08-13 Test Time: 01:43:35 [place]el Staff Member: LONI MEASUREMENT RESULTS: Intervals: Rate: 78 NV: 176 QRSD: 128 QT: 412 QTc: 469 [place]: P: 79 NV: 176 QRS: -73 T: 88 INTERPRETIVE STATEMENTS: Sinus rhythm with occasional premature ventricular complexes Left axis deviation Left bundle branch block Abnormal ECG Compared to ECG 08/13/2022 00:52:24 Ventricular premature complex(es) now present Left bundle-branch block now present Sinus tachycardia no longer present T-wave abnormality no longer present Possible ischemia no longer present Electronically Signed On 08-13-22 16:03:12 TURBINATED BONE GRINDER by Shamar De Guzman
--- NOTE | 2022-08-13 16:04 | EKG ---
Test Date: 2022-08-13 Test Time: 00:52:24 Special Duty Nurse: LONI MEASUREMENT RESULTS: Intervals: Rate: 109 MN: 176 QRSD: 144 QT: 362 QTc: 487 [place]: P: 82 MN: 176 QRS: -55 T: 102 INTERPRETIVE STATEMENTS: Sinus tachycardia Left axis deviation Nonspecific intraventricular block T wave abnormality, consider lateral ischemia Abnormal ECG Compared to ECG 07/15/2022 21:08:06 Left-axis deviation now present T-wave abnormality now present Possible ischemia now present Sinus rhythm no longer present Ventricular premature complex(es) no longer present Left bundle-branch block no longer present Electronically Signed On 08-13-22 16:03:19 FRENCH CORD BINDER by Shamar De Guzman
--- NOTE | 2022-08-13 17:40 | CON ---
Date of Consultation: 08/13/2022 Reason For Consultation: Acute renal failure. History Of Present Illness: Mr. Paulino is a 62-year-old male with past medical history significant for history of chronic congestive heart failure, systolic heart failure, hypertension, alcoholic pancrea titis, and CKD, presented to the ER with epigastric pain after he had a drink of alcoholic beverage t he day prior and felt like he had this typical attack of pancreatitis. Upon evaluation in the emerge ncy room, he was noted to have laboratory and clinical evidence of pancreatitis with elevated lactic acid and lipase, as well as, findings of acute renal failure. He has been admitted to the hospital. CT scan of the abdomen and pelvis was done without contrast, which showed small right pleural effusi on and small amount of ascites without any other acute findings. He has been admitted to the [facility] and has been started on IV fluids with some improvement in his abdominal pain. Patient reports that he has been taking Aleve every other day for sleep for a while and reports Aleve use on a regular basis. Past Medical History: Significant for history of chronic systolic heart failure with alcoholic cardi omyopathy, history of alcoholic pancreatitis, history of gout, transient ischemic attack, coronary ar ki disease, history of coronary stent placement in 2019. Social History: Lives at home with his and is currently on disability. Reports active alcohol abuse. Family History: Noncontributory. Review of Systems: Positive for some abdominal pain. All other review of systems are negative. Physical Examination: Vital Signs: Showing temperature of 96.1, pulse rate of 83, respiratory rate of 16, and blood pressu re 143/94. General: He appears in no acute distress. HEENT: Examination reveals atraumatic head. Lungs: Clear to auscultation. Abdomen: Soft and nontender. Extremities: Showed no evidence of edema. Neurological: He is alert, awake, and oriented x3. No focal neurological deficits were noted. Laboratory Data: At this time are showing creatinine of 2.76, baseline creatinine from February were berenice wing creatinine of 2.08 at that time. Other laboratory data significant for elevated troponin, eleva ana proBNP, and albumin of 3.3. Lipase was 462. Current Medications: Have been reviewed in detail. Impression: 1.Acute on chronic renal insufficiency secondary to dehydration. I agree with continuing the IV flu ids and we will discontinue Entresto at this time given acute on chronic renal insufficiency to avoid further decline in renal function given his volume status seems hypovolemic. 2.Chronic congestive heart failure, currently with stable volume status. 3.Acute pancreatitis, currently on conservative management with fluids. He is getting D5 with 3 amp s of sodium bicarbonate at this time. His bicarb level was noted to be 17. We will continue the young e and monitor his labs again tomorrow. However, I will decrease the rate of IV fluids from 75 to 50 to avoid further worsening of any congestive heart failure since we are going to be holding the Entre sto. Plan: Overall patient's renal function is slightly worse from his baseline creatinine of 2. He has been counseled on renal disease risk factors. Entresto will be discontinued at this time. Monitor v olume status closely. Troponins are being trended, likely demand ischemia. Congestive heart failure is compensated. Patient has been counseled on alcohol use as well. We will continue to follow the patient. Please do not hesitate to call us with any questions or concerns. EDMUND/TERRELL Voice ID: [id number] Report ID: [id number]
[2022-08-13] MEDS: ATORVASTATIN 40 MG TAB PO SCH (21:22)
[2022-08-14 03:40] LABS: Hematocrit 46.2 % (39.6-49.0); Lymphocytes % 20.6 % (15.3-44.8); MCV 91.8 fL (80-100); MPV 10.3 fL (7.6-11.3); RBC Red Blood Cell Count 5.04 M/uL (4.33-5.43)
[2022-08-14 04:08] LABS: Albumin 2.8 g/dL (3.4-5.0); Bilirubin Total 2.1 mg/dL (0.2-1.0); Protein, Total 6.8 g/dL (6.4-8.2); Thyroid Stimulating Hormone 1.33 uIU/mL (0.358-3.740)
[2022-08-14] MEDS: HYDROMORPHONE HCL 1 MG/ML INJ IV PRN ×4 (06:15→22:30)
[2022-08-14] MEDS ORDERED: REGADENOSON 0.4 MG/5 ML SYR IV ONE (08:33)
--- NOTE | 2022-08-14 08:52 | PN ---
Date of Progress Note: 08/14/2022 Subjective: Seen by bedside. There is no chest pain. Epigastric pain has improved. Review of Systems: No chest pain, shortness of breath, orthopnea, cough. No nausea, vomiting, diarrhea. Has gastric pa in with mild nausea that is improved. All other systems reviewed and they were negative. Physical Examination: Vital Signs: Reviewed. Head and Neck: Pupils are equal, reactive to light. Intact eye movements. No JVD. No cervical lym phadenopathy. Neck is supple. Thyroid is not enlarged. Lungs: Clear to auscultation bilaterally. No rhonchi, wheezing, or crackles. No accessory muscle u se. Heart: Regular rate and rhythm. No extra sounds. Abdomen: Soft, nontender. Bowel sounds positive. No organomegaly. No masses or hernia. No rigidi ty or rebound. Extremities: No edema, clubbing, or cyanosis. Intact pulses. Skin: No rash. Neurologic: Alert, awake, oriented x3. No acute focal deficits appreciated. Investigations: Troponin has trended down and the creatinine is 3.3. Assessment And Recommendations: 1.Elevated troponin, which could be non-ST elevation myocardial infarction. Continue anticoagulatio n and aspirin, and await on stress test. Due to the advanced kidney disease, we will plan not to do coronary angiogram unless the stress test is grossly abnormal. Obtain an echocardiogram today. 2.Acute on chronic pancreatitis, improving. SR/MODL Voice ID: [id number] Report ID: [id number]
[2022-08-14] MEDS: ASPIRIN EC 81 MG TAB PO SCH (09:00)
[2022-08-14] MEDS: METOPROLOL TAR 25 MG TAB PO SCH ×2 (09:00→22:27)
[2022-08-14] MEDS ORDERED: ENOXAPARIN 100 MG/ML SYR SQ SCH ×2 (09:00)
[2022-08-14] MEDS: AMIODARONE HCL 200 MG TAB PO SCH (10:24)
[2022-08-14] MEDS: FUROSEMIDE 20 MG TABLET PO SCH (10:24)
[2022-08-14] MEDS: PANTOPRAZOLE 40MG TABLET PO SCH (10:25)
--- NOTE | 2022-08-14 11:30 | RAD REPORT ---
EXAM DESCRIPTION: NM - Rest Stress Cardiac Imaging - 08/14/2022 11:23 am CLINICAL HISTORY: elevated troponin Chest pain. COMPARISON: Rest Stress Cardiac Imaging dated 04/27/2019 TECHNIQUE: The patient was administered approximately 10mCi of Tc 99m Sestamibi prior to resting SPE CT imaging of the heart. The patient was then administered approximately 30 mCi of Tc 99m Sestamibi f ollowing exercise or pharmacologic stress. Multiplanar SPECT images were reviewed. FINDINGS: No stress induced ischemic defect is seen to suggest stress induced ischemia. There is a l arge area of photopenia is seen with both rest and stress involving the inferior wall extending to th e apex. This is likely scar tissue related to previous infarction. The end diastolic volume is 227 ml, the end systolic volume is 184 ml, and the ejection fraction is 1 9 %. IMPRESSION: No stress induced ischemia. Large area of photopenia involving the LV inferior wall extending to the apex on both rest and stress imaging. This is most compatible with significant scarring related to prior infarction.
[2022-08-14 14:17] LABS: Protime INR 1.29
[2022-08-14] MEDS ORDERED: HEPARIN 5000 UNIT/ML 1 ML VIAL IV ONE (14:20)
[2022-08-14] MEDS: HEPARIN/D5W 25,000 UNIT/500 ML BAG IV SCH (14:26)
--- NOTE | 2022-08-14 14:35 | P.PN ---
Nephrology note (S) Pt seen sitting at the side of the bed, still reporting epigastric abd pain, 7/10, no current nausea, feels hungry. No CP, some CARRION which is chronic. No peripheral edema currently. (O) Vitals reviewed in the EMR General: He appears in no acute distress. Non toxic HEENT: Examination reveals atraumatic head. Sclera anicteric Lungs: Clear to auscultation mostly, no rales CVS: RRR mostly, no loud murmurs Abdomen: Soft, ND, no guarding Extremities: Showed no evidence of edema. Shins are non tender Derm: no skin rashes Neurological: He is alert, awake, and oriented x3. No focal neurological deficits were noted. CONSULTATION REPORT Labs reviewed in the EMR Impression: 1. Stage II BRIDGER on underlying CKD Stage IIIb 2nd to likely multifactorial insults with Cr level higher today but pt is non anuric and producing more UOP than recorded, has unrecorded voids. 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 Hydrate gentle with 0.5 ml/kg/hr while NPO 2. Chronic congestive heart failure without any overt decompensation or fluid overload at this time. Entresto and scheduled diuretics due to renal failure 3. Bicarb deficit with metab acidosis on admission resolved, will change fluids to D5LR 4. NSTEMI, troponin leak -management per cardiology, stress test results noted, pt is at higher risk for ROHAN, dialysis dependent renal failure currently. 5. Dose all meds for reduced CrCl, it appears Lovenox has been changed by primary team to heparin/warfarin Sonny Cabral MD, CHRISTOPHER
--- NOTE | 2022-08-14 14:44 | ECHO ---
HEIGHT: 6 ft 3 in WEIGHT: 214 lb 15.917 oz DATE OF STUDY: 08/14/[address]: Denver Brown NP 2-DIMENSIONAL: YES M.MODE: YES DOPPLER: YES COLOR FLOW: YES TDS: PORTABLE: YES DEFINITY: BUBBLE STUDY: DIAGNOSIS: NON ST ELEVATION MYOCARDIAL INFARCTION CARDIAC HISTORY: CATHERIZATION: SURGERY: PROSTHETIC VALVE: PACEMAKER: MEASUREMENTS (cm) DIASTOLIC (NORMALS) SYSTOLIC (NORMALS) IVSd 1.1 (0.6-1.2) LA Diam 4.9 (1.9-4.0) LVEF 20-25% LVIDd 6.3 (3.5-5.7) LVIDs 5.4 (2.0-3.5) %FS 15% LVPWd 1.2 (0.6-1.2) Ao Diam 3.4 (2.0-3.7) 2 DIMENSIONAL ASSESSMENT: RIGHT ATRIUM: NORMAL LEFT ATRIUM: ENLARGED RIGHT VENTRICLE: NORMAL LEFT VENTRICLE: LEFT VENTRICULAR THROMBUS IS PRESENT TRICUSPID VALVE: SEVERE TRICUSPID REGURGITATION MITRAL VALVE: MILD MITRAL REGURGITATION PULMONIC VALVE: MILD PULMONIC INSUFFICIENCY AORTIC VALVE: NORMAL PERICARDIAL EFFUSION: NONE AORTIC ROOT: NORMAL LEFT VENTRICULAR WALL MOTION: ALMITA SEPTAL/ APICAL AKINESIS DOPPLER/COLOR FLOW: SEE BELOW COMMENTS: 1. SEVERELY DEPRESSED LEFT VENTRICULAR EJECTION FRACTION 20-25% 2. APICAL/ ALMITA SEPTAL AKINESIS WITH ANTERIOR WALL SEVERE HYPOKINESIS 3. LARGE APICAL LEFT VENTRICULAR THROMBUS 3.2 BY 1.8 CENTIMETERS 4. SEVERE TRICUSPID REGURGITATION 5. MODERATE PULMONARY HYPERTENSION 6. MILD MITRAL REGURGITATION/ MILD PULMONIC INSUFFICIENCY TECHNOLOGIST: EMA RIZVI
[2022-08-14] MEDS ORDERED: D5LR 1,000 ML IV SCH (15:00)
--- NOTE | 2022-08-14 16:51 | P.PN ---
Subjective Date of Service: 08/14/22 Chief Complaint: NSTEMI, epigastric pain Patient has no new complaint. He denies any shortness of breath at rest. He reports easy fatigue and shortness of breath with exertion. Physical Examination - Vital Signs Temperature: 96.8 F Blood Pressure: 156/96 Pulse: 78 Respirations: 18 Pulse Ox (%): 96 - Physical Exam General: Alert, In no apparent distress, Oriented x3 HEENT: Mucous membr. moist/pink Neck: JVD not distended Respiratory: Clear to auscultation bilaterally, Normal air movement Cardiovascular: Regular rate/rhythm, Normal S1 S2, Edema (Bilateral lower extremities) Gastrointestinal: Normal bowel sounds, Soft and benign, Non-distended, No tenderness Musculoskeletal: No tenderness Integumentary: No rashes, No cyanosis Neurological: Normal strength at 5/5 x4 extr Assessment And Plan - Current Problems (Diagnosis) (1) Acute on chronic systolic heart failure Current Visit: Yes Status: Acute (2) Acute renal failure superimposed on stage 4 chronic kidney disease Current Visit: Yes Status: Acute (3) Coronary artery disease Current Visit: Yes Status: Acute (4) Mural thrombus of heart Current Visit: Yes Status: Acute - Plan Nuclear stress test demonstrated large area of fixed defect. Echocardiogram report cardiac thrombus per cardiology-Dr. De Guzman. Patient started on heparin drip and warfarin per cardiology recommendation. Monitor PT/INR and titrate Coumadin for target INR of 2-3. Continue amiodarone. Patient seen by nephrology. Lasix discontinued today. Entresto discontinued yesterday. Continue to monitor renal function. Patient is stable on room air.
[2022-08-14] MEDS: WARFARIN SODIUM 5 MG TAB PO SCH (16:58)
[2022-08-14] MEDS: ATORVASTATIN 40 MG TAB PO SCH (22:26)
[2022-08-15] MEDS: HYDROMORPHONE HCL 1 MG/ML INJ IV PRN ×3 (03:14→21:04)
[2022-08-15 04:21] LABS: Absolute Lymphocytes (CBC) 0.8 K/uL (0.7-4.9); Hematocrit 45.4 % (39.6-49.0); Lymphocytes % 16.9 % (15.3-44.8); MCV 91.3 fL (80-100); MPV 10.3 fL (7.6-11.3); RBC Red Blood Cell Count 4.98 M/uL (4.33-5.43)
[2022-08-15 04:28] LABS: Albumin 2.7 g/dL (3.4-5.0); Bilirubin Total 1.8 mg/dL (0.2-1.0); Potassium 4.6 mmol/L (3.5-5.1); Protein, Total 6.7 g/dL (6.4-8.2)
--- NOTE | 2022-08-15 07:18 | TREADPHA ---
DX: ELEVATED TROPONIN Date of Study: 08/14/2022 Ht: 6' 3 " Wt: 214 lb 15.917 oz Consulting Physician: ODALIS MEDICATIONS: HISTORY: PANCREATITIS, HYPERTENSION, STENTS IN 2021 PHYSICIAL EXAMINATION: RESTING B.P.: 123/99 RESTING H.R.: 72 RESTING EKG: NORMAL SINUS RHYTHM, Q IN ANTERIOR LEADS PROTOCOL: PHARMACOLOGIC EXERCISE TIME: 3:30 B.P. AT PEAK STRESS: 123/99 IMPRESSION: LEXISCAN STRESS TEST PERFORMED ORDERED. CARDIOLITE INJECTION PER PROTOCOL. COUPLET HEART RHYTHM TIMES ONE NOTED PRE PROCEDURE. PREMATURE VENTRICULAR COMPLEXES NOTED DURING PROCEDURE, PREMATURE ATRIAL COMPLEXES NOTED. NO CHEST PAIN, NO SUPRAVENTRICULAR TACHYCARDIA, NO VENTRICULAR TACHYCARDIA NOTED. SEE NUCLEAR MEDICINE REPORT. NO ELECTROCARDIOGRAM CHANGES OF ISCHEMIA WITH LEXISCAN.
[2022-08-15] MEDS: METOPROLOL TAR 25 MG TAB PO SCH ×2 (07:59→21:03)
[2022-08-15] MEDS: ASPIRIN EC 81 MG TAB PO SCH (07:59)
[2022-08-15] MEDS: PANTOPRAZOLE 40MG TABLET PO SCH (08:00)
[2022-08-15] MEDS: AMIODARONE HCL 200 MG TAB PO SCH (08:00)
[2022-08-15] MEDS: HEPARIN/D5W 25,000 UNIT/500 ML BAG IV SCH (08:58)
[2022-08-15] MEDS ORDERED: ENOXAPARIN 100 MG/ML SYR SQ SCH (09:00)
--- NOTE | 2022-08-15 14:10 | P.PN ---
Subjective Date of Service: 08/15/22 Chief Complaint: NSTEMI, epigastric pain Patient has no new complaint. He denies any shortness of breath at rest. He endorses dyspnea with exertion. Physical Examination - Vital Signs Temperature: 96.9 F Blood Pressure: 115/84 Pulse: 66 Respirations: 16 Pulse Ox (%): 92 - Physical Exam General: Alert, In no apparent distress, Oriented x3 Neck: JVD not distended Respiratory: Crackles/rales (Mild bibasilar crackles) Cardiovascular: Regular rate/rhythm, Normal S1 S2 Gastrointestinal: Soft and benign, Non-distended Musculoskeletal: No swelling Integumentary: No rashes, No cyanosis Neurological: Normal strength at 5/5 x4 extr Assessment And Plan - Current Problems (Diagnosis) (1) Acute on chronic systolic heart failure Current Visit: Yes Status: Acute (2) Acute renal failure superimposed on stage 4 chronic kidney disease Current Visit: Yes Status: Acute (3) Coronary artery disease Current Visit: Yes Status: Acute (4) Mural thrombus of heart Current Visit: Yes Status: Acute - Plan Nuclear stress test demonstrated large area of fixed defect. Echocardiogram report cardiac thrombus per cardiology-Dr. De Guzman. Continue heparin drip and warfarin per cardiology recommendation. Monitor PT/INR and titrate Coumadin for target INR of 2-3. Continue amiodarone. Patient seen by nephrology. Lasix discontinued and started on slow IV hydration. Renal function actually worse from yesterday. Entresto discontinued yesterday. Continue to monitor renal function. Patient is stable on room air.
--- NOTE | 2022-08-15 15:47 | P.PN ---
Nephrology note (S) Pt reports abd pain and nausea improved, he has no CP but does endorse CARRION (O) Vitals reviewed in the EMR General: He appears in no acute distress. Non toxic HEENT: Examination reveals atraumatic head. Sclera anicteric Lungs: Clear to auscultation mostly, no rales CVS: RRR mostly, no loud murmurs Abdomen: Soft, ND, no guarding Extremities: Showed no evidence of edema. Shins are non tender Derm: no skin rashes Neurological: He is alert, awake, and oriented x3. No focal neurological deficits were noted. Labs reviewed in the EMR Impression: 1. Stage II BRIDGER on underlying CKD Stage IIIb 2nd to likely multifactorial insults including NSAIDs, with Cr level yet to peak but is plateauing and pt is non anuric and is reportedlyd producing more UOP than recorded, has unrecorded voids. No emergent indication for EX CHEF yet, cont to monitor. Hydrated gentle with 0.5 ml/kg/hr while NPO but will d/c since now taking in PO intake. 2. Chronic congestive heart failure without any overt decompensation or fluid overload at this time but echo does show severe cardiomyopathy, low EF state, pulm HTN 2nd to left sided heart disease, other. Cont to hold Entresto, but will look at placing back on scheduled diuretic therapy 3. Bicarb deficit with metab acidosis on admission -resolved 4. NSTEMI, troponin leak -management per cardiology, stress test results noted, pt is at higher risk for ROHAN, dialysis dependent renal failure currently. 5. Dose all meds for reduced CrCl, it appears Lovenox has been changed by primary team to heparin/warfarin, echo findings with large ventral thrombus noted. Sonny Cabral MD, CHRISTOPHER
[2022-08-15] MEDS: WARFARIN SODIUM 5 MG TAB PO SCH (16:14)
[2022-08-15] MEDS: FUROSEMIDE 20 MG/ 2ML VIAL IV SCH (16:14)
--- NOTE | 2022-08-15 20:45 | PN ---
Date of Progress Note: 08/15/2022 Subjective: Seen by bedside, doing well. No further chest pain. Review of Systems: No chest pain, shortness of breath, orthopnea, or cough. No nausea, vomiting, diarrhea. No abdomina l pain. No dysuria, polyuria, or urgency. All other systems reviewed and they are negative. Physical Examination: Vital Signs: Reviewed. Head and Neck: Pupils are equal, reactive to light. Intact eye movements. No JVD. No cervical lym phadenopathy. Neck is supple. Thyroid is not enlarged. Lungs: Clear to auscultation bilaterally. No rhonchi, rales, or crackles. No accessory muscle use. Heart: Regular rate and rhythm. No extra sounds. Abdomen: Soft. Bowel sounds positive. Slightly tender in the epigastric area. No rigidity, reboun d. Extremities: No edema, clubbing, cyanosis. Intact pulses. Skin: No rash. Neurologic: Alert, awake, oriented x3. No acute focal deficits appreciated. Investigations: BUN 43, creatinine is 3.4, and hemoglobin is 14.7. Assessment And Recommendation: 1.Large left ventricular thrombus. Recommend IV heparin. Discussed the case with Dr. Boyle yester day, and heparin drip was started to overlap with Coumadin. Check INR on daily basis and once INR is therapeutic between 2 and 3, the patient can be released. 2.Elevated troponin. This is demand ischemia. The stress test is negative. 3.Severe systolic heart failure. Appears to be euvolemic. Continue home medications. SR/MODL Voice ID: [id number] Report ID: [id number]
[2022-08-15] MEDS: ATORVASTATIN 40 MG TAB PO SCH (21:03)
[2022-08-16 02:39] LABS: Hematocrit 44.6 % (39.6-49.0); MCV 91.5 fL (80-100); RBC Red Blood Cell Count 4.88 M/uL (4.33-5.43)
[2022-08-16 02:40] LABS: Absolute Lymphocytes (CBC) 1.4 K/uL (0.7-4.9); Lymphocytes % 27.9 % (15.3-44.8); MPV 10.3 fL (7.6-11.3)
[2022-08-16] MEDS: HYDROMORPHONE HCL 1 MG/ML INJ IV PRN (04:42)
[2022-08-16 05:24] LABS: Albumin 2.8 g/dL (3.4-5.0); Bilirubin Total 1.5 mg/dL (0.2-1.0); Potassium 4.8 mmol/L (3.5-5.1); Protein, Total 6.9 g/dL (6.4-8.2)
[2022-08-16] MEDS: METOPROLOL TAR 25 MG TAB PO SCH ×2 (08:04→21:06)
[2022-08-16] MEDS: PANTOPRAZOLE 40MG TABLET PO SCH (08:04)
[2022-08-16] MEDS: FUROSEMIDE 20 MG/ 2ML VIAL IV SCH ×2 (08:04→16:20)
[2022-08-16] MEDS: ASPIRIN EC 81 MG TAB PO SCH (08:04)
[2022-08-16] MEDS: AMIODARONE HCL 200 MG TAB PO SCH (08:04)
[2022-08-16] MEDS: HEPARIN/D5W 25,000 UNIT/500 ML BAG IV SCH (08:08)
--- NOTE | 2022-08-16 10:44 | P.PN ---
Nephrology note (S) Pt reports abd pain and nausea improved, he has no CP and no sig dyspnea at rest. Discussed results in detail and at pt's request, updated his sister over the phone on his condition. (O) Vitals reviewed in the EMR General: He appears in no acute distress. Non toxic HEENT: Examination reveals atraumatic head. Sclera anicteric Lungs: Clear to auscultation mostly, no rales CVS: RRR mostly, no loud murmurs Abdomen: Soft, ND, no guarding Extremities: Showed no evidence of edema. Shins are non tender Derm: no skin rashes Neurological: He is alert, awake, and oriented x3. No focal neurological deficits were noted. Labs reviewed in the EMR Impression: 1. Stage II BRIDGER on underlying CKD Stage IIIb 2nd to likely multifactorial insults including NSAIDs, with Cr level yet to peak but not rising rapidly and pt is non anuric and is reportedly producing more UOP than recorded, has several unrecorded voids. 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 Hydrated gentle with 0.5 ml/kg/hr while NPO but did d/c early on as pt now taking in PO intake. 2. Chronic congestive heart failure without any overt decompensation or fluid ov erload at this time but echo does show severe cardiomyopathy, low EF state, pulm HTN 2nd to left sided heart disease, other. Cont to hold Entresto, but did place back on gentle scheduled diuretic therapy 3. Bicarb deficit with metab acidosis on admission -resolved 4. NSTEMI, troponin leak -management per cardiology, stress test results noted, pt is at higher risk for ROHAN, dialysis dependent renal failure currently. 5. Dose all meds for reduced CrCl, Lovenox has been changed by primary team to heparin/warfarin, echo findings with large ventral thrombus noted. Management per Cardiology/IM. Sonny Cabral MD, CHRISTOPHER
[2022-08-16 13:19] LABS: Protime INR 1.46
--- NOTE | 2022-08-16 14:25 | P.PN ---
Subjective Date of Service: 08/16/22 Chief Complaint: NSTEMI, epigastric pain Patient complaining of intermittent cough. He endorses dyspnea with exertion. Physical Examination - Vital Signs Temperature: 96.4 F Blood Pressure: 94/67 Pulse: 67 Respirations: 16 Pulse Ox (%): 98 - Physical Exam General: Alert, In no apparent distress HEENT: Mucous membr. moist/pink Neck: JVD not distended Respiratory: Clear to auscultation bilaterally, Normal air movement Cardiovascular: Regular rate/rhythm, Normal S1 S2 Gastrointestinal: Soft and benign, Non-distended, No tenderness Integumentary: No rashes Neurological: Normal strength at 5/5 x4 extr Assessment And Plan - Current Problems (Diagnosis) (1) Acute on chronic systolic heart failure Current Visit: Yes Status: Acute (2) Acute renal failure superimposed on stage 4 chronic kidney disease Current Visit: Yes Status: Acute (3) Coronary artery disease Current Visit: Yes Status: Acute (4) Mural thrombus of heart Current Visit: Yes Status: Acute - Plan Nuclear stress test demonstrated large area of fixed defect. Echocardiogram report cardiac thrombus per cardiology-Dr. De Guzman. Continue heparin drip and warfarin per cardiology recommendation. Monitor PT/INR and titrate Coumadin for target INR of 2-3. INR is improved Continue amiodarone. Patient seen by nephrology. Lasix discontinued and started on slow IV hydration. Renal function continued to get worse. Possible cardiorenal syndrome Entresto discontinued yesterday. Continue to monitor renal function. Nephrology is following. Patient is stable on room air.
[2022-08-16] MEDS: GUAIFENESIN/CODEINE 5ML UCUP PO PRN ×2 (14:46→21:06)
[2022-08-16] MEDS: WARFARIN SODIUM 5 MG TAB PO SCH (16:14)
--- NOTE | 2022-08-16 16:47 | PN ---
Date of Progress Note: 08/16/2022 Subjective: Seen by bedside. Doing better. On heparin and Coumadin for LV thrombus. No chest pain . Review of Systems: No chest pain, shortness of breath, orthopnea, cough. No nausea, vomiting, diarrhea. All other syst ems reviewed and they were negative. Physical Examination: Vital Signs: Reviewed. Head and Neck: Pupils are equal, reactive to light. Intact eye movements. No JVD. No cervical lym phadenopathy. Neck is supple. Thyroid is not enlarged. Lungs: Clear to auscultation bilaterally. No rhonchi, wheezing, or crackles. No accessory muscle u se. Heart: Regular rate and rhythm. No extra sounds. Abdomen: Soft, nontender. Bowel sounds positive. No organomegaly. No masses or hernia. No rigidi ty or rebound. Extremities: No edema, clubbing, or cyanosis. Intact pulses. Skin: No rash. Neurologic: Alert, awake, oriented x3. No acute focal deficits appreciated. Investigations: Labs were reviewed. His BUN is 47, creatinine 3.69, and INR is 1.46. Assessment And Recommendations: 1.LV apical thrombus. Continue Lovenox and Coumadin until INR is between 2 and 3 and then heparin w ill be discontinued to carry on the Coumadin with outpatient INR checks. 2.Elevated troponin due to demand ischemia. Stress test was negative. We will continue to monitor. 3.Acute on chronic pancreatitis. This is resolved. SR/MODL Voice ID: [id number] Report ID: [id number]
[2022-08-16] MEDS: ATORVASTATIN 40 MG TAB PO SCH (21:05)
[2022-08-17 03:18] VITALS: BMI 26.7
[2022-08-17 04:18] LABS: Protime INR 1.98
[2022-08-17 04:27] LABS: Albumin 2.8 g/dL (3.4-5.0); Phosphorus 3.4 mg/dL (2.5-4.9); Potassium 5.1 mmol/L (3.5-5.1)
[2022-08-17] MEDS: GUAIFENESIN/CODEINE 5ML UCUP PO PRN ×4 (04:52→23:09)
[2022-08-17] MEDS: ASPIRIN EC 81 MG TAB PO SCH (08:06)
[2022-08-17] MEDS: AMIODARONE HCL 200 MG TAB PO SCH (08:06)
[2022-08-17] MEDS: METOPROLOL TAR 25 MG TAB PO SCH ×2 (08:06→20:15)
[2022-08-17] MEDS: PANTOPRAZOLE 40MG TABLET PO SCH (08:06)
[2022-08-17] MEDS: FUROSEMIDE 20 MG/ 2ML VIAL IV SCH (08:07)
[2022-08-17] MEDS: FUROSEMIDE 40 MG TABLET PO SCH ×2 (09:30→16:31)
--- NOTE | 2022-08-17 09:59 | P.PN ---
Nephrology note (S) Pt seen resting in bed, reports been OOB and walked to nursing station a couple times yesterday. Does report some mild cough and congestion developing. Case discussed extensively with pt and Dr. Boyle with respect to renal function and other. (O) Vitals reviewed in the EMR General: He appears in no acute distress. Non toxic HEENT: Examination reveals atraumatic head. Sclera anicteric Lungs: b/l air entry, mildly diminished left base, no sig rales CVS: RRR mostly, no loud murmurs Abdomen: Soft, ND, no guarding Extremities: Showed no evidence of edema. Shins are non tender Derm: no skin rashes Neurological: He is alert, awake, and oriented x3. No focal neurological deficits were noted. Labs reviewed in the EMR Impression: 1. Stage II BRIDGER on underlying CKD Stage IIIb 2nd to likely multifactorial insults including NSAIDs, with Cr level yet to peak but not rising rapidly and pt is non anuric and continues to have several unrecorded voids. 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 Pt also now effectively anticoagulated so to place a TDC would require reversal. Will cont to monitor for renal recovery, will monitor UOP response on diuretics. No overt uremic symptoms at this time. Will need to monitor K level. 2. Chronic congestive heart failure without any overt decompensation or fluid overload at this time but echo does show severe cardiomyopathy, low EF state, pulm HTN 2nd to left sided heart disease, other. Cont to hold Entresto, but did place back on gentle scheduled diuretic therapy. Will switch to PO lasix and determine UOP response on it and titrate as needed. Pt was only taking low dose lasix at home. 3. Bicarb deficit with metab acidosis on admission -resolved 4. NSTEMI, troponin leak -management per cardiology, stress test results noted, pt is at higher risk for ROHAN, dialysis dependent renal failure currently. 5. Dose all meds for reduced CrCl, Lovenox has been changed by primary team to heparin/warfarin, INR approaching 2, echo findings with large ventral thrombus noted. Management per Cardiology/IM. Sonny Cabral MD, CHRISTOPHER
--- NOTE | 2022-08-17 15:54 | P.PN ---
Subjective Date of Service: 08/17/22 Chief Complaint: NSTEMI, epigastric pain Patient has no new complaint. He endorses dyspnea with exertion. Serum creatinine continue to trend up. Physical Examination - Vital Signs Temperature: 97.5 F Blood Pressure: 110/73 Pulse: 73 Respirations: 16 Pulse Ox (%): 98 - Physical Exam General: Alert, In no apparent distress, Oriented x3 HEENT: Mucous membr. moist/pink Neck: JVD not distended Respiratory: Clear to auscultation bilaterally, Normal air movement Cardiovascular: Regular rate/rhythm, Normal S1 S2 Gastrointestinal: Soft and benign, Non-distended, No tenderness Musculoskeletal: No swelling Integumentary: No rashes, No cyanosis Neurological: Normal strength at 5/5 x4 extr Assessment And Plan - Current Problems (Diagnosis) (1) Acute on chronic systolic heart failure Current Visit: Yes Status: Acute (2) Acute renal failure superimposed on stage 4 chronic kidney disease Current Visit: Yes Status: Acute (3) Coronary artery disease Current Visit: Yes Status: Acute (4) Mural thrombus of heart Current Visit: Yes Status: Acute - Plan Nuclear stress test demonstrated large area of fixed defect. Echocardiogram report cardiac thrombus per cardiology-Dr. De Guzman. INR is therapeutic. Discontinue heparin drip. Continue amiodarone. Patient seen by nephrology. Lasix restarted yesterday, room creatinine continue to trend up, possible cardiorenal syndrome Entresto is on hold. Continue to monitor renal function. Nephrology restarted patient on oral Lasix. Titrate oral Lasix for diuresis, monitor renal function for improvement. Nephrology to follow. Patient is stable on room air.
[2022-08-17] MEDS: WARFARIN SODIUM 5 MG TAB PO SCH (16:31)
--- NOTE | 2022-08-17 17:36 | PN ---
Date of Progress Note: 08/17/2022 Subjective: Seen at bedside, doing clinically well. No new complaints. Review of Systems: No chest pain, shortness of breath, orthopnea, cough. No nausea, vomiting, diarrhea. All other syst ems reviewed are negative. Physical Examination: Vital Signs: Reviewed. Head and Neck: Pupils are equal, reactive to light. Intact eye movements. No JVD. No cervical lym phadenopathy. Neck is supple. Thyroid is not enlarged. Lungs: Clear to auscultation bilaterally. No rhonchi, wheezing, or crackles. No accessory muscle u se. Heart: Regular rate and rhythm. No extra sounds. Abdomen: Soft, nontender. Bowel sounds positive. No organomegaly. No masses or hernia. No rigidi ty or rebound. Extremities: No clubbing, cyanosis. Intact pulses. Skin: No rash. Neurologic: Alert, awake, oriented x3. No acute focal deficits appreciated. Investigations: INR today is 1.98 and hemoglobin is 14.8. Assessment/recommendations: 1.Left ventricular thrombosis. INR is therapeutic. Heparin drip can be discontinued. Repeat INR t omorrow to identify the dose. From Cardiology standpoint, patient can be released within next 24 sandy rs if INR becomes between 2 and 3. 2.Congestive heart failure exacerbation. Appears to be euvolemic. Continue current management. 3.Advanced kidney disease. Nephrology is on board. Patient might require dialysis. 4.Paroxysmal atrial fibrillation, rate is controlled and on warfarin now. Continue current manageme nt. SR/MODL Voice ID: [id number] Report ID: [id number]
[2022-08-17] MEDS: ATORVASTATIN 40 MG TAB PO SCH (20:15)
[2022-08-17] MEDS: BENZONATATE 100 MG CAP PO PRN (20:50)
[2022-08-18 04:20] LABS: Protime INR 2.46
[2022-08-18] MEDS: GUAIFENESIN/CODEINE 5ML UCUP PO PRN ×3 (04:32→23:28)
[2022-08-18 04:35] LABS: Albumin 2.9 g/dL (3.4-5.0); Phosphorus 3.1 mg/dL (2.5-4.9); Potassium 4.8 mmol/L (3.5-5.1)
[2022-08-18] MEDS: ASPIRIN EC 81 MG TAB PO SCH (08:42)
[2022-08-18] MEDS: FUROSEMIDE 40 MG TABLET PO SCH ×3 (08:42→16:02)
[2022-08-18] MEDS: BENZONATATE 100 MG CAP PO PRN ×2 (08:42→18:57)
[2022-08-18] MEDS: PANTOPRAZOLE 40MG TABLET PO SCH (08:43)
[2022-08-18] MEDS: METOPROLOL TAR 25 MG TAB PO SCH ×2 (08:43→20:30)
[2022-08-18] MEDS: AMIODARONE HCL 200 MG TAB PO SCH (08:43)
--- NOTE | 2022-08-18 11:43 | P.PN ---
Nephrology note (S) Pt reports increased shortness of breath, he is still making urine on lasix but renal function tests discussed in detail incl risk for dialysis which pt initially against but after further discussion is open to it as a measure of last resort. (O) Vitals reviewed in the EMR General: He appears in no acute distress. Non toxic HEENT: Examination reveals atraumatic head. Sclera anicteric Lungs: b/l air entry, mildly diminished left base, no sig rales CVS: RRR mostly, no loud murmurs Abdomen: Soft, ND, no guarding Extremities: Showed no evidence of edema. Shins are non tender Derm: no skin rashes Neurological: He is alert, awake, and oriented x3. No focal neurological deficits were noted. Labs reviewed in the EMR Impression: 1. Stage II BRIDGER on underlying CKD Stage IIIb 2nd to likely multifactorial insults including NSAIDs, with Cr level yet to peak but not rising rapidly and pt is non anuric. No emergent indication for MACHINIST OUTSIDE yet but remains at risk for it and if pt fails to diurese effectively and remains dyspnec, will proceed with HD. One issue however is that pt is also now effectively anticoagulated so to place a TDC would require reversal. Will cont to hope for some degree of renal recovery, will monitor UOP response on diuretics. No overt uremic symptoms at this time. Will need to monitor K level. 2. Chronic congestive heart failure without overt decompensation or fluid overload at this time but echo does show severe cardiomyopathy, low EF state, pulm HTN 2nd to left sided heart disease, other. Cont to hold Entresto, but did place back on scheduled diuretic therapy. Pt SOB, will escalate PO lasix and will obtain CXR to eval for pleural effusions 3. Bicarb deficit with metab acidosis on admission -resolved 4. NSTEMI, troponin leak -management per cardiology, stress test results noted, pt is at higher risk for ROHAN, dialysis dependent renal failure currently. 5. Dose all meds for reduced CrCl, Lovenox has been changed by primary team to heparin/warfarin, INR now > 2 and off heparin, echo findings with large ventral thrombus noted. Management per Cardiology/IM. Sonny Cabral MD, CHRISTOPHER
--- NOTE | 2022-08-18 11:46 | RAD REPORT ---
EXAM DESCRIPTION: RAD - Chest Single View - 08/18/2022 11:40 am CLINICAL HISTORY: Dyspnea COMPARISON: Chest Single View dated 08/13/2022; Chest Single View dated 07/15/2022; Chest Single Vie w dated 01/10/2022; Chest Pa And Lat (2 Views) dated 01/16/2021; Abdomen Pelvis Wo Contrast dated FINDINGS: Lines: None. Lungs: Opacities again noted at the left lung base. This may be related to underpenetration. Pleural: No significant pleural effusions or pneumothorax. Cardiac: The heart size is within normal limits. Mediastinum: Within normal limits. Bones: No acute fractures. Other: None IMPRESSION: Left basilar opacities mentioned on the prior chest radiograph are similar but may be re lated to underpenetration. No definite acute process identified
--- NOTE | 2022-08-18 15:26 | P.PN ---
Subjective Date of Service: 08/18/22 Chief Complaint: NSTEMI, epigastric pain Patient has no new complaint. He endorses dyspnea with exertion. Serum creatinine continue to trend up. Physical Examination - Vital Signs Temperature: 97.0 F Blood Pressure: 115/82 Pulse: 60 Respirations: 16 Pulse Ox (%): 100 - Physical Exam General: Alert, In no apparent distress HEENT: Mucous membr. moist/pink Neck: JVD not distended Respiratory: Clear to auscultation bilaterally, Normal air movement Cardiovascular: Regular rate/rhythm, Normal S1 S2, Edema (Bilateral legs) Gastrointestinal: Soft and benign, Non-distended Integumentary: No rashes, No cyanosis Neurological: Normal strength at 5/5 x4 extr - Studies Microbiology Data (last 24 hrs): 08/13/22 01:47 Blood - Blood Aerobic Blood Culture - Final No growth in 5 days. 08/13/22 01:47 Blood - Blood Anaerobic Blood Culture - Final No growth in 5 days. 08/13/22 01:02 Blood - Blood Aerobic Blood Culture - Final No growth in 5 days. 08/13/22 01:02 Blood - Blood Anaerobic Blood Culture - Final No growth in 5 days. Assessment And Plan - Current Problems (Diagnosis) (1) Acute on chronic systolic heart failure Current Visit: Yes Status: Acute (2) Acute renal failure superimposed on stage 4 chronic kidney disease Current Visit: Yes Status: Acute (3) Coronary artery disease Current Visit: Yes Status: Acute (4) Mural thrombus of heart Current Visit: Yes Status: Acute - Plan Nuclear stress test demonstrated large area of fixed defect. Echocardiogram report cardiac thrombus per cardiology-Dr. De Guzman. INR is therapeutic. Heparin drip discontinued. INR is currently therapeutic but is rapidly rising. Hold Coumadin for today. Continue amiodarone. Patient seen by nephrology. Serum creatinine continue to trend up, possible cardiorenal syndrome. Nephrology is following and titrating Lasix. Strict intake and output Entresto is on hold. Continue to monitor renal function. Patient is stable on room air.
[2022-08-18] MEDS: ATORVASTATIN 40 MG TAB PO SCH (20:30)
[2022-08-18] MEDS ORDERED: MELATONIN 5 MG TABLET PO PRN (20:41)
--- NOTE | 2022-08-18 20:47 | PN ---
Date of Progress Note: 08/18/2022 Subjective: Seen at bedside, doing clinically well. His INR found to be therapeutic. No bleeding. Review of Systems: No chest pain, shortness of breath, orthopnea, cough. No nausea, vomiting, diarrhea. No abdominal p ain. No dysuria, polyuria, or urinary urgency. All other systems reviewed are negative. Physical Examination: Vital Signs: Reviewed. Head and Neck: Pupils are equal, reactive to light. Intact eye movements. No JVD. No cervical lymp hadenopathy. Neck is supple. Thyroid is not enlarged. Lungs: Clear to auscultation bilaterally. No rhonchi, wheezing, or crackles. No accessory muscle u se. Heart: Regular rate and rhythm. No extra sounds. Abdomen: Soft, nontender. Bowel sounds positive. No organomegaly. No masses or hernia. No rigidi ty or rebound. Extremities: No clubbing, cyanosis. Intact pulses. Skin: No rash. Neurologic: Alert, awake. No acute focal deficits appreciated. Investigations: INR is 2.46. Hemoglobin 14.8 and creatinine is above 4.1. Assessment/recommendations: 1.LV apical thrombosis. His INR therapeutic. Can discontinue IV heparin and continue Coumadin and check INR daily while in the hospital. 2.Advanced kidney failure, likely patient will require dialysis. 3.Acute on chronic systolic heart failure exacerbation, responded well to treatment, but kidney func tion is worsening. The patient is being managed by Nephrology. 4.Elevated troponin. This is demand ischemia with stress test being negative. SR/MODL Voice ID: [id number] Report ID: [id number]
[2022-08-18] MEDS ORDERED: ALPRAZOLAM 0.5 MG TABLET PO PRN (23:37)
[2022-08-19 00:50] VITALS: O2SAT 99
[2022-08-19 04:36] LABS: Protime INR 2.96
[2022-08-19 04:50] LABS: Albumin 2.6 g/dL (3.4-5.0); Phosphorus 3.4 mg/dL (2.5-4.9); Potassium 4.9 mmol/L (3.5-5.1)
[2022-08-19 08:05] VITALS: BP 115/80; TEMP 96.8
--- NOTE | 2022-08-19 09:09 | P.DS ---
Admission Date: 08/13/22 Discharge Date: 08/19/22 Disposition: ROUTINE DISCHARGE Discharge Condition: FAIR Reason for Admission: NSTEMI, epigastric pain - Problems (1) Acute on chronic systolic heart failure Status: Acute (2) Acute renal failure superimposed on stage 4 chronic kidney disease Status: Acute (3) Coronary artery disease Status: Acute (4) Mural thrombus of heart Status: Acute Brief History of Present Illness: 62-year-old male with history of chronic systolic congestive heart failure, hypertension, alcoholic pancreatitis, CKD 3, hyperlipidemia, GERD presented to the emergency department for epigastric pain. He reports that he drank a d aiquiri and his pain began and it felt typical of his pancreatitis. He was evaluated in the emergency department and his labs were significant for an acute kidney injury with a creatinine of 2.76 GFR of 25 BUN of 34 bicarb of 17 lactic acid 3.3 high-sensitivity troponin 1667.5 BNP of 17,038. CT of the abdomen pelvis was performed without contrast given his BRIDGER which revealed no evidence for nephrolithiasis and/or hydronephrosis, small right pleural effusion with minimal compressive atelectasis changes, small amount of ascites and cardiomegaly. ED provider gave patient Lovenox, aspirin for NSTEMI. Patient admitted for further management. Hospital Course: Patient admitted to the medical floor, troponin was significantly elevated but trended flat. No evidence of pancreatitis on the CT. patient was mildly elevated. Patient was asymptomatic during the hospital stay. He was seen and evaluated by cardiology Dr. De Guzman for elevated troponin and recommended nuclear stress test and echocardiogram. Nuclear stress test demonstrated large area of fixed defect. Echocardiogram reported cardiac thrombus per cardiology. Patient treated with IV Lasix for CHF. Also treated with heparin drip and Coumadin for cardiac thrombus INR became therapeutic. Heparin drip discontinued. Continue amiodarone during the hospital for A. fib. Patient seen by nephrology for BRIDGER. Serum creatinine continue to trend up, and peaked at 4 and then later started trending down. Lasix was titrated to 40 mg IV twice daily and later transitioned to 80 mg twice daily. Patient diuresed well with this dose. Entresto was held due to the BRIDGER. Other heart failure medications were continued during the hospital stay. Patient was stable on room air and not hypoxic. He became compensated for CHF. Patient overall has clinically improved, currently asymptomatic and deemed stable for discharge. He will follow with Dr. Cabral regarding the BRIDGER and will need repeat BMP within 3 days for Lasix dose adjustment. He is also prescribed Coumadin for cardiac thrombus and will need PT/INR checked within 3 days for Coumadin dose adjustment. This has been communicated to the patient. Fall precautions also advised. Vital Signs/Physical Exam: Temp Pulse Resp BP Pulse Ox 96.8 F 60 16 115/80 100 08/19/22 08:00 08/19/22 08:00 08/19/22 08:00 08/19/22 08:00 08/19/22 08:00 General: Alert, In no apparent distress, Oriented x3 HEENT: Mucous membr. moist/pink Neck: JVD not distended Respiratory: Clear to auscultation bilaterally, Normal air movement Cardiovascular: Regular rate/rhythm, Normal S1 S2, Edema (Trace bilateral lower extremity edema) Gastrointestinal: Normal bowel sounds, Soft and benign, Non-distended, No tenderness Integumentary: No rashes, No cyanosis Neurological: Normal strength at 5/5 x4 extr Laboratory Data at Discharge: WBC 4.90 K/uL (4.3-10.9) 08/16/22 02:12 Hgb 14.8 g/dL (13.6-17.9) 08/16/22 02:12 Hct 44.6 % (39.6-49.0) 08/16/22 02:12 Plt Count 125 K/uL (152-406) L 08/16/22 02:12 PT 32.6 SECONDS (9.5-12.5) H 08/19/22 04:04 INR 2.96 08/19/22 04:04 APTT 78.4 SECONDS (24.3-36.9) H 08/17/22 08:37 Sodium 134 mmol/L (136-145) L 08/19/22 04:04 Potassium 4.9 mmol/L (3.5-5.1) 08/19/22 04:04 BUN 56 mg/dL (7-18) H 08/19/22 04:04 Creatinine 3.85 mg/dL (0.70-1.30) H 08/19/22 04:04 Glucose 136 mg/dL (74-106) H 08/19/22 04:04 Phosphorus 3.4 mg/dL (2.5-4.9) 08/19/22 04:04 Total Bilirubin 1.5 mg/dL (0.2-1.0) H 08/16/22 02:12 AST 38 U/L (15-37) H 08/16/22 02:12 ALT 24 U/L (16-61) 08/16/22 02:12 Alkaline Phosphatase 84 U/L (45-117) 08/16/22 02:12 Triglycerides 85 mg/dL (<150) 08/14/22 02:54 Cholesterol 131 mg/dL (<200) 08/14/22 02:54 HDL Cholesterol 68 mg/dL (40-60) H 08/14/22 02:54 Cholesterol/HDL Ratio 1.93 08/14/22 02:54 Lipase 180 U/L (73-393) 08/16/22 02:12 Home Medications: Metoprolol Tartrate 1 tab PO BID 01/18/21 Amiodarone HCl [Pacerone] 1 tab PO DAILY 09/05/21 Pantoprazole [Protonix Tab*] 40 mg PO DAILY #30 tab 09/06/21 Furosemide [Lasix*] 80 mg PO BIDL #30 tab 08/19/22 Warfarin Sodium 4 mg PO DAILY #30 tab 08/19/22 New Medications: Furosemide [Lasix*] 80 mg PO BIDL #30 tab Warfarin Sodium 4 mg PO DAILY #30 tab Physician Discharge Instructions: Check PT/INR within 3 days. Result to be called to your PCP Dr. Duran for coumadin dose adjustment. You can have life threatening bleed when you fall while taking anticoagulation so avoid falls as much as possible. Check BMP, Phosphorus and Magnesium within 3 days and result called to Dr. Sonny Cabral for lasix dose adjustment. Diet: AHA Activity: Fall precautions Followup: Leonardo Rossi DO [ACTIVE - CAN ADMIT] - 1-2 Weeks (Call for appointment.) Shamar De Guzman MD [ACTIVE - CAN ADMIT] - 1-2 Weeks (Call for appointment.) CONCHITA DURAN [Primary Care Provider] - 1 Week (Call for appointment.) Time spent managing pt's care (in minutes): 36
[2022-08-19] MEDS: ASPIRIN EC 81 MG TAB PO SCH (09:57)
[2022-08-19] MEDS: METOPROLOL TAR 25 MG TAB PO SCH (09:58)
[2022-08-19] MEDS: BENZONATATE 100 MG CAP PO PRN (09:58)
[2022-08-19] MEDS: PANTOPRAZOLE 40MG TABLET PO SCH (09:58)
[2022-08-19] MEDS: FUROSEMIDE 40 MG TABLET PO SCH (09:58)
[2022-08-19] MEDS: AMIODARONE HCL 200 MG TAB PO SCH (09:58)
== END 2022-08-19 11:43 | disposition home or self-care (01) | DRG 280 ==
LOC: ER 00:07 → ERHOLD 03:17 → 4TH 09:26
PROVIDERS: ADMIT Internal Medicine Sleep Medicine; ATTEND Internal Medicine
DX: I13.0 Hypertensive heart and chronic kidney disease with heart failure and stage 1 through stage 4 chronic kidney disease, or unspecified chronic kidney disease (principal); I21.A1 Myocardial infarction type 2; I50.23 Acute on chronic systolic (congestive) heart failure; N17.9 Acute kidney failure, unspecified; E87.20 Acidosis, unspecified; R18.8 Other ascites; N18.4 Chronic kidney disease, stage 4 (severe); I42.6 Alcoholic cardiomyopathy; M10.9 Gout, unspecified; I48.0 Paroxysmal atrial fibrillation; E86.0 Dehydration; E78.5 Hyperlipidemia, unspecified; K21.9 Gastro-esophageal reflux disease without esophagitis; I27.22 Pulmonary hypertension due to left heart disease; I25.10 Atherosclerotic heart disease of native coronary artery without angina pectoris; M19.90 Unspecified osteoarthritis, unspecified site; Z23 Encounter for immunization; Z99.2 Dependence on renal dialysis; Z88.0 Allergy status to penicillin; Z95.5 Presence of coronary angioplasty implant and graft; Z86.73 Personal history of transient ischemic attack (TIA), and cerebral infarction without residual deficits; Z79.01 Long term (current) use of anticoagulants; Z79.899 Other long term (current) drug therapy; Z20.822 Contact with and (suspected) exposure to COVID-19
CPT/HCPCS: 0240U; 36415; 71045; 74176; 76770; 78452; 80053; 80061; 80069; 80307; 80320; 81003; 81015; 83605; 83690; 83880; 84439; 84443; 84484; 85025; 85610; 85730; 87040; 90471; 93005; 93017; 93306; 96372; 99285; A9500; C9113; J1170; J1644; J1650; J1940; J2405; J2785; J7030; Q2035

== ENCOUNTER 2022-08-23 21:53 | Inpatient (IN) | payer OTHER, SELFPAY ==
--- NOTE | 2022-08-23 22:25 | RAD REPORT ---
EXAM DESCRIPTION: CT - Ct Stroke Brain Wo Cont - 08/23/2022 10:15 pm CLINICAL HISTORY: R sided weakness Headache, drowsiness, CVA symptomology COMPARISON: Head Brain Wo Cont dated 04/01/2020; Head Brain Wo Cont dated 10/30/2016 TECHNIQUE: All CT scans are performed using dose optimization technique as appropriate and may inclu de automated exposure control or mA/KV adjustment according to patient size. FINDINGS: No intracranial hemorrhage, hydrocephalus or extra-axial fluid collection.Moderate general ized brain atrophy.No areas of brain edema or evidence of midline shift. Mild left vertebral atherosc lerosis. The paranasal sinuses and mastoids are clear. The calvarium is intact. IMPRESSION: No acute intracranial abnormality. If there is continued clinical concern for CVA, MR imaging of the brain would be recommended. The findings were discussed with Dr John in the ER on 08/23/2022 at 10:14 p.m. by telephone.
[2022-08-23 22:29] LABS: Absolute Lymphocytes (CBC) 1.3 K/uL (0.7-4.9); Hematocrit 42.2 % (39.6-49.0); MPV 9.6 fL (7.6-11.3); RBC Red Blood Cell Count 4.69 M/uL (4.33-5.43)
[2022-08-23 22:33] LABS: Protime INR 1.44
[2022-08-23 22:55] LABS: Bilirubin Direct 0.8 mg/dL (0-0.2); Bilirubin Total 1.7 mg/dL (0.2-1.0); Protein, Total 7.8 g/dL (6.4-8.2)
[2022-08-23 22:56] LABS: Magnesium 2.1 mg/dL (1.6-2.4); Potassium 4.8 mmol/L (3.5-5.1)
[2022-08-23 22:59] LABS: Troponin High Sensitivity 1253.3 pg/mL (<58.9)
--- NOTE | 2022-08-23 23:03 | EDPHYS ---
Physician Documentation [facility] Name: Natan Paulino Sr Age: 62 yrs Sex: Male : 1960 Arrival Date: 08/23/2022 Time: 21:55 Bed 7 Private MD: ED Physician Gloria John HPI: 08/23 22:08 This 62 yrs old Black Male presents to ER via EMS with complaints of R sided weakness. sd2 22:08 62 yo M presents via EMS with CC of R sided weakness. Reports he was sitting at home sd2 watching TV and then began to feel different and slid out of his recliner onto the floor and was unable to control this. Reports feeling like his R arm "locked up" and was unable to move it and had associated numbness. Also reports some numbness to his RLE. Reports all symptoms started around 2100. BGL 112 upon arrival. Pt recently discharged from the hospital on 08/19 for mural thrombus of the heart on warfarin. Reports he is also on ASA. Denies any CP, SOB, slurred speech or changes in vision. . Historical: - Allergies: 22:07 PENICILLINS; kd3 - PMHx: 22:07 CHF; Hypertension; osteoarthritis; Rheumatoid Arthritis; Pancreatitis; Gout; TIA; kd3 - PSHx: 22:07 finger; Stented artery; heart stent; kd3 - Immunization history:: Adult Immunizations up to date. - Social history:: Smoking status: unknown. ROS: 22:08 Constitutional: Negative for fever, chills, and weight loss, Eyes: Negative for injury, sd2 pain, redness, and discharge, ENT: Negative for injury, pain, and discharge, Cardiovascular: Negative for chest pain, palpitations, and edema, Respiratory: Negative for shortness of breath, cough, wheezing. Abdomen/GI: Negative for abdominal pain, nausea, vomiting, diarrhea. MS/Extremity: Negative for injury and deformity, Skin: Negative for injury, rash, and discoloration, Neuro: Negative for headache, positive for weakness, numbness and tingling. Exam: 22:08 Constitutional: This is a well developed, well nourished patient who is awake, alert, sd2 and in no acute distress. Head/Face: Normocephalic, atraumatic. Eyes: EOMI, normal conjunctiva bilaterally Chest/axilla: Normal chest wall appearance and motion. Nontender with no deformity. Cardiovascular: Regular rate and rhythm with a normal S1 and S2. No gallops, murmurs, or rubs. 2+ distal pulses. Respiratory: Lungs have equal breath sounds bilaterally, clear to auscultation and percussion. No rales, rhonchi or wheezes noted. No increased work of breathing, no retractions or nasal flaring. Abdomen/GI: Soft, non-tender, with normal bowel sounds. No guarding or rebound. No evidence of tenderness throughout. Skin: Warm, dry with normal turgor. Normal color with no rashes, no lesions, and no evidence of cellulitis. MS/ Extremity: Pulses equal, no cyanosis. Neurovascular intact. Full, normal range of motion. Neuro: Awake and alert, GCS 15, oriented to person, place, time, and situation. Cranial nerves II-XII grossly intact. Motor strength 5/5 in all extremities aside from RLE with some minor drift on exam. Sensory grossly intact. Cerebellar exam normal. Psych: Awake, alert, with orientation to person, place and time. Behavior, mood, and affect are within normal limits. 23:05 ECG was reviewed by the Attending Physician. Sinus tachycardia, rate 113, LBBB present, sd2 no STEMI criteria Vital Signs: 22:03 BP 145 / 115; Pulse 120; Resp 19; Temp 97.8; Pulse Ox 99% on R/A; kd3 22:15 Weight 95.25 kg; kd3 22:30 BP 122 / 105; Pulse 113; Resp 17; Pulse Ox 98% on R/A; kd3 23:00 BP 116 / 88; Pulse 106; Resp 21; Pulse Ox 100% on R/A; jb4 08/24 00:00 BP 133 / 103; Pulse 107; Resp 23; Pulse Ox 100% on R/A; jb4 01:15 BP 140 / 112; Pulse 102; Resp 20; Pulse Ox 98% on R/A; jb4 NIH Stroke Scale Scores: 08/23 21:53 NIHSS Score: 2 kd3 MDM: 21:56 Patient medically screened. sd2 22:08 Differential Diagnosis Dehydration, electrolyte abnormality, UTI, PNA, anemia, CVA, sd2 TIA, ICH among others. Data reviewed: vital signs, nurses notes. 22:57 Data reviewed: lab test result(s), EKG, radiologic studies. Counseling: I had a sd2 detailed discussion with the patient and/or guardian regarding: the historical points, exam findings, and any diagnostic results supporting the discharge/admit diagnosis, lab results, radiology results, the need for further work-up and treatment in the hospital. ED course: Labs and imaging reviewed. CT head negative. Unable to obtain CTA due to creatinine of 3. Trop elevated but was also elevated at most recent admission. Discussed case with Dr. Ac. Pt is on Coumadin which is contraindicated for tPA. Pt also with almost completely resolved symptoms which would not favor the use of tPA even though PT/INR is subtherapeutic. Unable to rule out LVO due to patient's creatinine and inability to scan with contrast. Dr. Ac recommends admission and continuance of stroke workup at this time. . 08/23 22:08 Order name: Basic Metabolic Panel; Complete Time: 23:03 sd2 08/23 22:08 Order name: CBC with Diff; Complete Time: 22:56 sd2 08/23 22:08 Order name: Hepatic Function; Complete Time: 23:03 sd2 08/23 22:08 Order name: High Sensitivity Troponin; Complete Time: 23:03 sd2 08/23 22:08 Order name: Magnesium; Complete Time: 23:03 sd2 08/23 22:08 Order name: Protime (+inr); Complete Time: 22:50 sd2 08/23 22:08 Order name: Ptt, Activated; Complete Time: 22:56 sd2 08/23 22:08 Order name: CT Stroke Brain w/o Contrast; Complete Time: 22:56 sd2 08/23 22:08 Order name: Stroke CXR 1 View; Complete Time: 23:05 sd2 08/23 22:16 Order name: CT Head Angio sd2 08/23 22:18 Order name: Glucose, Ancillary Testing; Complete Time: 22:56 EDMS 08/23 22:59 Order name: CREATININE WHOLE BLOOD; Complete Time: 23:03 EDMS 08/23 23:06 Order name: SARS RAPID; Complete Time: 23:50 jb4 08/24 00:01 Order name: BNP; Complete Time: 00:43 la1 08/23 22:08 Order name: EKG; Complete Time: 22:09 sd2 05 22:08 Order name: Accucheck; Complete Time: 22:10 08/23 22:08 Order name: Cardiac monitoring; Complete Time: 22:14 08/23 22:08 Order name: EKG - Nurse/Tech; Complete Time: 22:19 08/23 22:08 Order name: IV Saline Lock; Complete Time: 22:14 08/23 22:08 Order name: Labs collected and sent; Complete Time: 22:14 08/23 22:08 Order name: NPO; Complete Time: 22:14 08/23 22:08 Order name: O2 Per Protocol; Complete Time: 22:10 08/23 22:08 Order name: O2 Sat Monitoring; Complete Time: 22:10 08/23 22:08 Order name: Stroke Swallow Screen; Complete Time: 22:39 08/23 22:16 Order name: CT Neck Angio sd2 Administered Medications: 08/24 00:36 Drug: Heparin (SC Drip) 12 units/kg/hr - (HEParin 00464 units, D5W 500 ml) jb4 {Co-Signature: tw5 (Maeve Morales).} Route: IV; Rate: calculated rate; Site: right forearm; 01:25 Follow up: IV Status: Completed infusion kd3 00:47 Drug: Tylenol 1000 mg Route: PO; jb4 01:25 Follow up: Response: No adverse reaction kd3 Disposition Summary: 08/23/22 23:02 Hospitalization Ordered Hospitalization Status: Inpatient Admission sd2 Provider: Eddy Jha [facility] sd2 Condition: Stable sd2 Problem: new sd2 Symptoms: have improved sd2 Bed/Room Type: Standard sd2 Room Assignment: 414(08/24/22 01:04) cg Diagnosis - Right sided weakness sd2 - Stroke-like symptoms sd2 - Chronic kidney disease sd2 - Elevated troponin sd2 Forms: - Medication Reconciliation Form sd2 - SBAR form sd2 NIH Stroke Scale - NIH Stroke Score Date: 08/23/2022 Time: 21:53 Total Score = 2 1a. Level of Consciousness (LOC) - 0(Alert) 1b. Level of Consciousness (LOC) (Month \\T\\ Age) - 0(Both) 1c. LOC Commands (Open \\T\\ Closes Eyes/Service Shop Foreman) - 0(Both) 2. Best Gaze (Lateral Gaze Paresis) - 0(Normal) 3. Visual Field Loss - 0(No visual loss) 4. Facial Palsy - 0(Normal) 5a. Left Arm: Motor (10-second hold) - 0(No drift) 5b. Right Arm: Motor (10-second hold) - 0(No drift) 6a. Left Leg: Motor (5-second hold - always test supine) - 0(No drift) 6b. Right Leg: Motor (5-second hold - always test supine) - 1(Drift) 7. Limb Ataxia (finger/nose \\T\\ heel/santiago - test with eyes open) - 0(Absent) 8. Sensory Loss (pinprick arms/legs/face) - 1(Mild to moderate loss) 9. Best Language: Aphasia (description/naming/reading) - 0(No aphasia) 10. Dysarthria (speech clarity - read or repeat words) - 0(Normal) 11. Extinction and Inattention (visual/tactile/auditory/spatial/personal) - 0(No abnormality) Initials: kd3 Signatures: Dispatcher [employer] EDMS Denver Brown, CORN SHELLER-C CORN SHELLER-Cla1 Sujatha Norton RN RN cg Jw Jackson RN RN jbKera Larios RN RN kd3 Gloria John MD MD sd2 Maeve Morales tw5 Corrections: (The following items were deleted from the chart) 01:04 01 23:02 sd2 guillermina
--- NOTE | 2022-08-23 23:03 | ER ---
Nurse's Notes [facility] Name: Natan Paulino Sr Age: 62 yrs Sex: Male : 1960 Arrival Date: 08/23/2022 Time: 21:55 Bed 7 Private MD: Diagnosis: Right sided weakness;Stroke-like symptoms;Chronic kidney disease;Elevated troponin Presentation: 08/23 22:03 Chief complaint: EMS states: Pt had a last known well time of 2100. Pt was sitting on kd3 the couch when his right arm became numb and tingly and his right leg was also hard to move. PT had right sided deficit on scene but currently patient's function returned. pt BS was 134. Coronavirus screen: Vaccine status: Patient reports receiving the 2nd dose of the covid vaccine. Ebola Screen: No symptoms or risks identified at this time. Initial Sepsis Screen: Does the patient meet any 2 criteria? HR > 90 bpm. No. Patient's initial sepsis screen is negative. Does the patient have a suspected source of infection? No. Patient's initial sepsis screen is negative. Risk Assessment: Do you want to hurt yourself or someone else? Patient reports no desire to harm self or others. Onset of symptoms was August 23, 2022 at 21:00. 22:03 Method Of Arrival: EMS: [facility] kd3 22:03 Acuity: NINO 3 kd3 Triage Assessment: 21:53 General: Appears in no apparent distress. Behavior is calm, cooperative. Pain: Denies kd3 pain. Neuro: Level of Consciousness is awake, alert, obeys commands, Oriented to person, place, time, situation, Bean Snipper are weak on right Moves all extremities. Speech is normal, Facial symmetry appears normal, Pupils are PERRLA, Tingling in right arm and right leg. 21:53 Respiratory: Airway is patent Trachea midline Respiratory effort is even, unlabored, kd3 Respiratory pattern is regular, symmetrical. Historical: - Allergies: 22:07 PENICILLINS; kd3 - PMHx: 22:07 CHF; Hypertension; osteoarthritis; Rheumatoid Arthritis; Pancreatitis; Gout; TIA; kd3 - PSHx: 22:07 finger; Stented artery; heart stent; kd3 - Immunization history:: Adult Immunizations up to date. - Social history:: Smoking status: unknown. Screenin:09 [facility] ED Fall Risk Assessment (Adult) History of falling in the last 3 months, kd3 including since admission No falls in past 3 months (0 pts) Confusion or Disorientation No (0 pts) Intoxicated or Sedated No (0 pts) Impaired Gait No (0 pts) Mobility Assist Device Used No (0 pt) Altered Elimination No (0 pt) Score/Fall Risk Level 0 - 2 = Low Risk Oriented to surroundings. Abuse screen: Denies threats or abuse. Denies injuries from another. Nutritional screening: No deficits noted. Tuberculosis screening: No symptoms or risk factors identified. 22:40 Patient has been NPO before screening. The patient is alert, able to follow commands. jb4 The patient does not exhibit slurred or garbled speech The patient is not exhibiting difficulty speaking. The patient does not exhibit difficulty understanding words. The patient is able to swallow own secretions with no drooling or need for suction. Patient tolerated one teaspoon of water. No drooling, immediate coughing, gurgling, or clearing of the throat was noted. The patient tolerated 90mL of water. No drooling, immediate coughing, gurgling, or clearing of the throat was noted. The patient passed the bedside swallow screening. Oral medications may be given as ordered. Contact Physician for further diet orders. Provider notified of bedside swallow screening results: Gloria John MD. Assessment: 22:01 General: code stroke called . kd3 22:08 General: patient taken to CT . kd3 22:11 General: see triage . kd3 22:14 General: pt returned to the room . kd3 23:00 Reassessment: Patient appears in no apparent distress at this time. Patient and/or jb4 family updated on plan of care and expected duration. Pain level reassessed. Patient is alert, oriented x 3, equal unlabored respirations, skin warm/dry/pink. 08/24 00:00 Reassessment: Patient appears in no apparent distress at this time. Patient and/or jb4 family updated on plan of care and expected duration. Pain level reassessed. Patient is alert, oriented x 3, equal unlabored respirations, skin warm/dry/pink. 01:00 Reassessment: Patient appears in no apparent distress at this time. Patient and/or jb4 family updated on plan of care and expected duration. Pain level reassessed. Patient is alert, oriented x 3, equal unlabored respirations, skin warm/dry/pink. Vital Signs: 08/23 22:03 BP 145 / 115; Pulse 120; Resp 19; Temp 97.8; Pulse Ox 99% on R/A; kd3 22:15 Weight 95.25 kg; kd3 22:30 BP 122 / 105; Pulse 113; Resp 17; Pulse Ox 98% on R/A; kd3 23:00 BP 116 / 88; Pulse 106; Resp 21; Pulse Ox 100% on R/A; jb4 08/24 00:00 BP 133 / 103; Pulse 107; Resp 23; Pulse Ox 100% on R/A; jb4 01:15 BP 140 / 112; Pulse 102; Resp 20; Pulse Ox 98% on R/A; jb4 NIH Stroke Scale Scores: 08/23 21:53 NIHSS Score: 2 kd3 ED Course: 21:53 Patient has correct armband on for positive identification. Placed in gown. Bed in low kd3 position. Call light in reach. Client placed on continuous cardiac and pulse oximetry monitoring. NIBP monitoring applied. equipment monitor phototypesetting on. Notified ED physician of other NIH stroke scale. 21:55 Patient arrived in ED. jb4 21:56 Gloria John MD is Attending Physician. sd2 22:03 Kera Dyer, RN is Primary Nurse. kd3 22:07 Triage completed. kd3 22:17 CT Stroke Brain w/o Contrast In Process Unspecified. EDMS 22:19 Basic Metabolic Panel Sent. kd3 22:19 CBC with Diff Sent. kd3 22:19 Hepatic Function Sent. kd3 22:20 High Sensitivity Troponin Sent. kd3 22:20 Magnesium Sent. kd3 22:20 Protime (+inr) Sent. kd3 22:20 Ptt, Activated Sent. kd3 22:27 Inserted saline lock: 20 gauge in right forearm, using aseptic technique. Maintain EMS kd3 IV. Dressing intact. Good blood return noted. Site clean \T\ dry. Gauge \T\ site: 18 g in the left A/C. 22:28 Arm band placed on Patient placed on a stretcher, on threat monitoring analyst, on pulse kd3 oximetry. EKG completed in triage. Results shown to . 22:50 Stroke CXR 1 View In Process Unspecified. EDMS 23:01 Eddy Jha MD is Hospitalizing Provider. sd2 23:22 SARS RAPID Sent. jb4 08/24 01:24 No provider procedures requiring assistance completed. Patient admitted, IV remains in kd3 place. Administered Medications: 00:36 Drug: Heparin (CO Drip) 12 units/kg/hr - (HEParin 01859 units, D5W 500 ml) jb4 {Co-Signature: tw5 (Maeve Morales).} Route: IV; Rate: calculated rate; Site: right forearm; 01:25 Follow up: IV Status: Completed infusion kd3 00:47 Drug: Tylenol 1000 mg Route: PO; jb4 01:25 Follow up: Response: No adverse reaction kd3 Medication: 08/23 22:28 VIS not applicable for this client. kd3 Outcome: 23:02 Decision to Hospitalize by Provider. sd2 08/24 01:24 Admitted to kd3 Condition: stable Discharge instructions given to patient, Instructed on follow up and referral plans. the need for admit, Demonstrated understanding of instructions. 01:46 Patient left the ED. jb4 NIH Stroke Scale - NIH Stroke Score Date: 08/23/2022 Time: 21:53 Total Score = 2 1a. Level of Consciousness (LOC) - 0(Alert) 1b. Level of Consciousness (LOC) (Month \T\ Age) - 0(Both) 1c. LOC Commands (Open \T\ Closes Eyes/Senior Medical Director) - 0(Both) 2. Best Gaze (Lateral Gaze Paresis) - 0(Normal) 3. Visual Field Loss - 0(No visual loss) 4. Facial Palsy - 0(Normal) 5a. Left Arm: Motor (10-second hold) - 0(No drift) 5b. Right Arm: Motor (10-second hold) - 0(No drift) 6a. Left Leg: Motor (5-second hold - always test supine) - 0(No drift) 6b. Right Leg: Motor (5-second hold - always test supine) - 1(Drift) 7. Limb Ataxia (finger/nose \T\ heel/santiago - test with eyes open) - 0(Absent) 8. Sensory Loss (pinprick arms/legs/face) - 1(Mild to moderate loss) 9. Best Language: Aphasia (description/naming/reading) - 0(No aphasia) 10. Dysarthria (speech clarity - read or repeat words) - 0(Normal) 11. Extinction and Inattention (visual/tactile/auditory/spatial/personal) - 0(No abnormality) Initials: kd3 Signatures: Dispatcher [employer] Jw Mckeon, RN RN jb4 Kera Dyer RN RN kd3 Gloria John MD MD sd2 Maeve Morales tw5
--- NOTE | 2022-08-23 23:04 | RAD REPORT ---
EXAM DESCRIPTION: RAD - Chest Single View - 08/23/2022 10:48 pm CLINICAL HISTORY: strok Chest pain. COMPARISON: Chest Single View dated 08/18/2022; Chest Single View dated 08/13/2022; Chest Single Vie w dated 07/15/2022; Chest Single View dated 01/10/2022 FINDINGS: Portable technique limits examination quality. Mild interstitial pulmonary edema suspected. The heart is moderately enlarged in size. No displaced f ractures. IMPRESSION: Mild CHF.
[2022-08-23 23:43] LABS: SARS-CoV-2 Antigen Rapid Res Negative (Negative)
--- NOTE | 2022-08-24 00:32 | P.HP ---
Certification for Inpatient Patient admitted to: Inpatient With expected LOS: >2 Midnights Patient will require the following post-hospital care: None Practitioner: I am a practitioner with admitting privileges, knowledge of patient current condition, hospital course, and medical plan of care. Services: Services provided to patient in accordance with Admission requirements found in Title 42 Section 412.3 of the Code of Federal Regulations <Denver Brown - Last Filed: 08/24/22 00:26> Patient History Date of Service: 08/24/22 Reason for admission: Right-sided weakness, mural thrombus History of Present Illness: 62-year-old male with history of chronic systolic congestive heart failure, CKD 4, CAD, hyperlipidemia, GERD presents to the emergency department for acute onset of right-sided weakness. He reports that he was in his recliner last known well was at 2100 on 08/23/2022, he developed significant weakness of the right upper and lower extremity as well as decree sensation/numbness tingling of his extremities. He is brought to the emergency department for evaluation, his symptoms did significantly improve although he is still having some right lower extremity weakness and paresthesias of the right and lower extremity. During his recent admission (discharged 08/19/2022) patient was found to have a mural t hrombus in his left ventricle and he was started on warfarin, at discharge his INR was 2.9 but today his INR is down to 1.44. Case was discussed with cardiology as well as neurology, he is not a candidate for TNKase given his INR of greater than 1.3 and use of anticoagulation although he was subtherapeutic with his INR, for that reason he will be started on a heparin drip. CT head was negative for acute findings, angio was deferred given elevated creatinine and CKD. ED provider wishes to admit for further valuation and management of right- sided weakness suspected ischemic CVA along with subtherapeutic INR/mural thrombus, NSTEMI. - Past Medical/Surgical History Diabetic: No -: Hypertension -: 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 Rossi -: CAD -: Mural thrombus-left ventricle on warfarin -: Cardiac stent placement July 2019 -: removal of L 5th digit Psychosocial/ Personal History: Patient currently lives at home with his and is on disability due to heart condition. - Family History Father -: Cancer, Liver disease Mother -: GI disease, Other (see notes) Notes: NA - Social History Alcohol use: Yes CD- Drugs: No Caffeine use: Yes Place of Residence: Home <Denver Brown Roxy Jeffers - Last Filed: 08/24/22 00:26> Date of Service: 08/24/22 <Bill Jha - Last Filed: 08/24/22 22:24> Allergies Penicillins Allergy (Verified 05/03/20 05:24) Hives/Rash Home Medications: Metoprolol Tartrate 1 tab PO BID 01/18/21 Amiodarone HCl [Pacerone] 1 tab PO DAILY 09/05/21 Pantoprazole [Protonix Tab*] 40 mg PO DAILY #30 tab 09/06/21 Furosemide [Lasix*] 80 mg PO BIDL #30 tab 08/19/22 Warfarin Sodium 4 mg PO DAILY #30 tab 08/19/22 Review of Systems 10-point ROS is otherwise unremarkable Neurological: Weakness, As per HPI <DomoroxyDenver - Last Filed: 08/24/22 00:26> Physical Examination - Physical Exam General: Alert, In no apparent distress, Oriented x3 HEENT: Atraumatic, PERRLA, Mucous membr. moist/pink, EOMI, Sclerae nonicteric Neck: Supple, 2+ carotid pulse no bruit, No LAD, Without JVD or thyroid abnormality Respiratory: Clear to auscultation bilaterally, Normal air movement Cardiovascular: Regular rate/rhythm, Normal S1 S2 Gastrointestinal: Normal bowel sounds, No tenderness Musculoskeletal: No tenderness Integumentary: No rashes Neurological: Normal gait, Normal speech, Normal tone, Normal affect, Abnormal strength (4/5 right upper and lower extremity strength,5/5 left upper and lower extremity strength), Abnormal sensation (Decree sensation right upper and lower extremity) - Studies Laboratory Data (last 24 hrs) 08/23/22 22:05: PT 15.8 H, INR 1.44, APTT 30.4 08/23/22 22:05: WBC 5.60, Hgb 13.7, Hct 42.2, Plt Count 180 08/23/22 22:05: Sodium 137, Potassium 4.8, BUN 35 H, Creatinine 2.84 H, Glucose 120 H, Magnesium 2.1, Total Bilirubin 1.7 H, AST 36, ALT 23, Alkaline P hosphatase 92 <Denver Brown - Last Filed: 08/24/22 00:26> - Studies Laboratory Data (last 24 hrs) 08/23/22 22:05: PT 15.8 H, INR 1.44, APTT 30.4 08/23/22 22:05: WBC 5.60, Hgb 13.7, Hct 42.2, Plt Count 180 08/23/22 22:05: Sodium 137, Potassium 4.8, BUN 35 H, Creatinine 2.84 H, Glucose 120 H, Magnesium 2.1, Total Bilirubin 1.7 H, AST 36, ALT 23, Alkaline Phosphatase 92 <Bill Jha - Last Filed: 08/24/22 22:24> Assessment and Plan - Plan Assessment: Right sided weakness/paresthesias rule out ischemic CVA Large left ventricular mural thrombus on warfarin with subtherapeutic INR NSTEMI Chronic systolic congestive heart failure CKD 4 GERD Hypertension Plan: Right sided weakness/paresthesias rule out ischemic CVA: CT head negative for acute findings in the ER, angio head and neck deferred given elevated creatinine, CKD. Case was discussed with neurology recommend stroke work-up, patient will also be treated with heparin drip as he is subtherapeutic INR with no thrombus present. PT/OT/speech therapy consults in place. MRI, carotid Doppler ordered, patient had very recent echocardiogram which did demonstrate the mural thrombus, depressed LVEF. Appreciate further input from neurology. Large left ventricular mural thrombus on warfarin with subtherapeutic INR: Discussed case with cardiology, continue with heparin drip bridge, daily INR, warfarin titration. NSTEMI: Continue as above. Trend troponins. Chronic systolic congestive heart failure: Continue Lasix 80 mg twice daily p.o. Cardiology consult in place. CKD 4: Patient follows with Dr. Rossi, renal function stable/improved from previous. Counseled nephrology as necessary. GERD: Continue Protonix Hypertension: Continue metoprolol. DVT PPX: Heparin drip bridged with Coumadin until therapeutic INR Code status: Full Discharge Plan: Home Plan to discharge in: 72 Hours - Advance Directives Does patient have a Living Will: Yes Does patient have a Durable POA for Healthcare: No - Code Status/Comfort Care Code Status Assessed: Yes (Full code) Critical Care: No Time Spent Managing Pts Care (In Minutes): 70 <Denver Brown - Last Filed: 08/24/22 00:26> - Plan Patient seen and examined on rounds Symptoms much improved, feels almost back to normal. RUE and RLE feel slightly sluggish, intact sensation no new /worsening symptoms <Bill Jha - Last Filed: 08/24/22 22:24>
[2022-08-24] MEDS ORDERED: HEPARIN/D5W 25,000 UNIT/500 ML BAG IV ONE (00:34)
[2022-08-24] MEDS ORDERED: ACETAMINOPHEN 500 MG TAB ONE (00:47)
[2022-08-24 02:52] LABS: Absolute Lymphocytes (CBC) 1.1 K/uL (0.7-4.9); Hematocrit 40.3 % (39.6-49.0); Lymphocytes % 23.5 % (15.3-44.8); MCV 89.9 fL (80-100); MPV 9.1 fL (7.6-11.3); RBC Red Blood Cell Count 4.48 M/uL (4.33-5.43)
[2022-08-24 02:57] LABS: Protime INR 1.53
[2022-08-24 03:12] LABS: Albumin 2.9 g/dL (3.4-5.0); Bilirubin Total 1.7 mg/dL (0.2-1.0); Potassium 4.3 mmol/L (3.5-5.1); Protein, Total 7.4 g/dL (6.4-8.2)
[2022-08-24 03:14] LABS: Troponin High Sensitivity 1196.1 pg/mL (<58.9)
[2022-08-24 03:37] VITALS: BMI 26.2
[2022-08-24 03:44] LABS: Specific Gravity 1.013 (1.005-1.030); Urine Bacteria <20 /HPF (<20); Urine Bilirubin NEGATIVE (Negative); Urine Blood Negative (Negative); Urine Clarity Clear (Clear); Urine Color Yellow (Yellow); Urine Glucose NEGATIVE (Negative); Urine Mucus Slight /HPF (None Seen); Urine Protein 2+ (Negative); Urine RBC <5 /HPF (None Seen); Urine Urobilinogen 2+ (Normal); Urine pH 7.5 (5.0-7.0)
--- NOTE | 2022-08-24 07:55 | RAD REPORT ---
EXAM DESCRIPTION: US - CP - 08/24/2022 1:25 am CLINICAL HISTORY: right sided weakness, poss CVA COMPARISON: No comparisons TECHNIQUE: Real-time sonographic evaluation of both carotid systems was performed. Doppler interroga tion was performed with waveform tracing bilaterally. FINDINGS: Normal high resistance waveforms are noted in both external carotid arteries. The common c arotid arteries and internal carotid arteries show normal low resistance waveforms. No significant plaque formation is seen. Peak systolic and end diastolic velocity values and the ICA/ CCA ratios are in the non-hemodynamically significant range. Antegrade flow seen in both vertebral arteries. IMPRESSION: No significant atherosclerotic changes noted. No evidence of a hemodynamically significant stenosis.
--- NOTE | 2022-08-24 09:08 | RAD REPORT ---
EXAM DESCRIPTION: MRI - Brain Wo Cont - 08/24/2022 8:33 am CLINICAL HISTORY: right sided weakness, poss CVA COMPARISON: Ct Stroke Brain Wo Cont dated 08/23/2022 TECHNIQUE: Sagittal T1-weighted images were obtained along with PD/heavily T2-weighted and T2-FLAIR images. Axial DWI and ADC mapping sequences were also obtained along with coronal heavily T2-weighted images were obtained. FINDINGS: Acute infarct in the medial left cerebellar hemisphere. Small, essentially punctate cortic al infarct suspected in the left occipital lobe. . There is no edema or shift of midline structures. No extra-axial fluid collections. Signal voids are seen as a normal finding in the major intracranial vessels. Mild chronic small vessel ischemic changes. Cerebral atrophy. Trace thickening in the right maxillary sinus. IMPRESSION: Small acute left cerebellar hemisphere infarct. Possible punctate left occipital lobe co rtical infarct. Background of mild chronic small vessel ischemic changes.
[2022-08-24] MEDS: PANTOPRAZOLE 40MG TABLET PO SCH (10:06)
[2022-08-24] MEDS: AMIODARONE HCL 200 MG TAB PO SCH (10:06)
[2022-08-24] MEDS: FOLIC ACID 1 MG TABLET PO SCH (10:06)
[2022-08-24] MEDS: FUROSEMIDE 40 MG TABLET PO SCH ×2 (10:06→17:14)
[2022-08-24] MEDS: METOPROLOL TAR 25 MG TAB PO SCH ×2 (10:06→20:41)
[2022-08-24] MEDS: ONDANSETRON 4 MG/2 ML VIAL IV PRN (15:57)
[2022-08-24] MEDS: WARFARIN SODIUM 5 MG TAB PO SCH (17:15)
--- NOTE | 2022-08-24 17:24 | CON ---
Date of Consultation: 08/24/2022 Reason For Consultation: Stroke in the setting of LV thrombus. History Of Present Illness: A 62-year-old male with history of severe congestive heart failure, fagot maker bing kidney disease, coronary artery disease, acid reflux, chronic pancreatitis, was diagnosed recentl y with LV apical thrombus and was started on Coumadin. His INR upon discharge was 2.9, however, come s in with right-sided weakness. INR was 1.4. Patient said that he has been taking his medication, b ut he could not follow up with any body to adjust the dosing. No other complaints. Past Medical History: As outlined above in the HPI. Medications: Refer reconciliation sheet for detailed list. Allergies: PENICILLIN. Family History: No premature coronary artery disease or cancer. Social History: Does not smoke or drink. Does not use any drugs. Review of Systems: All systems reviewed are negative except as mentioned in HPI. Physical Examination: Vital Signs: Reviewed. Head and Neck: Pupils are equal, reactive to light. Intact eye movements. No JVD. No cervical lym phadenopathy. Neck: Supple. Thyroid is not enlarged. Lungs: Clear to auscultation bilaterally. No rhonchi, wheezing, or crackles. No accessory muscle u se. Heart: Irregularly irregular. No extra sounds. Abdomen: Soft, nontender. Bowel sounds positive. No organomegaly. No masses or hernia. No rigidi ty or rebound. Extremities: No clubbing, cyanosis. Intact pulses. Skin: No rash. Neurologic: Alert, awake, oriented x3 with mild right-sided weakness. Lymph Nodes: No cervical or axillary lymphadenopathy. Investigations: Troponin is 1164. The patient had normal stress test recently and his troponin has been elevated at the same level. His BUN 36, creatinine 2.74. Assessment/recommendations: 1.Acute cerebrovascular accident related to the left ventricular mural thrombus. Recommend IV hepar in and resume Coumadin to overlap until INR is between 2 and 5. 2.Elevated troponin. This is demand ischemia. Patient had recent stress test that was negative. 3.Advanced kidney failure lesion is be managed and evaluated by Nephrology. 4.Left ventricular mural thrombus with an acute stroke. Full anticoagulation is recommended as outl ined above. SR/MODL Voice ID: [id number] Report ID: [id number]
--- NOTE | 2022-08-24 17:27 | P.CNS ---
Date of Consult: 08/24/22 Reason for Consult: BRIDGER/ CKD Requesting Physician: Bill Jha Chief Complaint: Right-sided weakness, mural thrombus History of Present Illness: 62-year-old male with history of chronic systolic congestive heart failure, CKD 4, CAD, hyperlipidemia, GERD presents to the emergency department for acute onset of right-sided weakness. He reports that he was in his recliner last known well was at 2100 on 08/23/2022, he developed significant weakness of the right upper and lower extremity as well as decree sensation/numbness tingling of his extremities. He is brought to the emergency department for evaluation, his symptoms did significantly improve although he is still having some right lower extremity weakness and paresthesias of the right and lower extremity. During his recent admission (discharged 08/19/2022) patient was found to have a mural thrombus in his left ventricle and he was started on warfarin, at discharge his INR was 2.9 but today his INR is down to 1.44. Case was discussed with cardiology as well as neurology, he is not a candidate for TNKase given his INR of greater than 1.3 and use of anticoagulation although he was subtherapeutic with his INR, for that reason he will be started on a heparin drip. CT head was negative for acute findings, angio was deferred given elevated creatinine and CKD. ED provider wishes to admit for further valuation and management of right- sided weakness suspected ischemic CVA along with subtherapeutic INR/mural thrombus, NSTEMI. 22:08 This 62 yrs old Black Male presents to ER via EMS with complaints of R sided weakness. sd2 22:08 62 yo M presents via EMS with CC of R sided weakness. Reports he was sitting at home sd2 watching TV and then began to feel different and slid out of his recliner onto the floor and was unable to control this. Reports feeling like his R arm "locked up" and was unable to move it and had associated numbness. Also reports some numbness to his RLE. Reports all symptoms started around 2100. BGL 112 upon arrival. Pt recently discharged from the hospital on 08/19 for mural thrombus of the heart on warfarin. Reports he is also on ASA. Denies any CP, SOB, slurred speech or changes in vision. Allergies Penicillins Allergy (Verified 05/03/20 05:24) Hives/Rash Home medications list reviewed: Yes Home Medications: Metoprolol Tartrate 1 tab PO BID 01/18/21 Amiodarone HCl [Pacerone] 1 tab PO DAILY 09/05/21 Pantoprazole [Protonix Tab*] 40 mg PO DAILY #30 tab 09/06/21 Furosemide [Lasix*] 80 mg PO BIDL #30 tab 08/19/22 Warfarin Sodium 4 mg PO DAILY #30 tab 08/19/22 - Past Medical/Surgical History Diabetic: No -: Hypertension -: 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 Rossi -: CAD -: Mural thrombus-left ventricle on warfarin -: Cardiac stent placement July 2019 -: removal of L 5th digit Psychosocial/ Personal History: Patient currently lives at home with his and is on disability due to heart condition. - Family History Father Medical History: Cancer, Liver disease Mother Medical History: GI disease, Other (see notes) Notes: NA - Social History Smoking Status: Unknown if ever smoked Alcohol use: Yes CD- Drugs: No Caffeine use: Yes Place of Residence: Home Review of Systems 10-point ROS is otherwise unremarkable Cardiovascular: Edema Neurological: Weakness Physical Examination Temp Pulse Resp BP Pulse Ox 98.0 F 78 16 120/87 99 08/24/22 16:00 08/24/22 17:14 08/24/22 16:00 08/24/22 17:14 08/24/22 16:00 General: In no apparent distress, Oriented x3, Cooperative HEENT: Atraumatic Neck: Supple Respiratory: Clear to auscultation bilaterally Cardiovascular: Regular rate/rhythm, Edema Gastrointestinal: Soft and benign, Non-distended Musculoskeletal: No clubbing, No contractures Integumentary: No rashes, No cyanosis Neurological: Normal speech, Abnormal strength Laboratory Data (last 24 hrs) 08/23/22 22:05: PT 15.8 H, INR 1.44, APTT 30.4 08/23/22 22:05: WBC 5.60, Hgb 13.7, Hct 42.2, Plt Count 180 08/23/22 22:05: Sodium 137, Potassium 4.8, BUN 35 H, Creatinine 2.84 H, Glucose 120 H, Magnesium 2.1, Total Bilirubin 1.7 H, AST 36, ALT 23, Alkaline Phosphatase 92 Imagings Data: EXAM DESCRIPTION: RAD - Chest Single View - 08/23/2022 10:48 pm CLINICAL HISTORY: strok Chest pain. COMPARISON: Chest Single View dated 08/18/2022; Chest Single View dated 08/13/2022; Chest Single View dated 07/15/2022; Chest Single View dated 01/10/2022 FINDINGS: Portable technique limits examination quality. Mild interstitial pulmonary edema suspected. The heart is moderately enlarged in size. No displaced fractures. IMPRESSION: Mild CHF. [employer] LEFT VENTRICULAR WALL MOTION: ALMITA SEPTAL/ APICAL AKINESIS DOPPLER/COLOR FLOW: SEE BELOW COMMENTS: 1. SEVERELY DEPRESSED LEFT VENTRICULAR EJECTION FRACTION 20-25% 2. APICAL/ ALMITA SEPTAL AKINESIS WITH ANTERIOR WALL SEVERE HYPOKINESIS 3. LARGE APICAL LEFT VENTRICULAR THROMBUS 3.2 BY 1.8 CENTIMETERS 4. SEVERE TRICUSPID REGURGITATION 5. MODERATE PULMONARY HYPERTENSION 6. MILD MITRAL REGURGITATION/ MILD PULMONIC INSUFFICIENCY [employer] EXAM DESCRIPTION: US - Renal Ultrasound-Complete - 08/13/2022 5:49 am CLINICAL HISTORY: BRIDGER Flank pain COMPARISON: Abdomen Exam Limited dated 07/15/2022 FINDINGS: Both kidneys are increased in echogenicity The right kidney measures 9.1 x 5.9 x 3.7 cm. No hydronephrosis, focal mass or perinephric fluid. Small benign right renal cyst. The left kidney measures 9.6 x 6.0 x 4.1 cm. No hydronephrosis, focal mass or perinephric fluid. The urinary bladder is incompletely distended without gross abnormality seen. IMPRESSION: Echogenic kidneys are noted bilaterally compatible with underlying medical renal disease. Conclusions/Impression: Stage I BRIDGER may be CRS CKD III/ IV with proteinuria -No NSAIDs -Continue furosemide HTN with CKD/ CHF -Continue Metoprolol Systolic CHF, A/C Pulmonary HTN, moderate LE Edema -Continue furosemide Gout -Monitor uric acid level Hx HCV Hx Cocaine abuse -Recommend cessation Case reviewed with Dr. Jha Thank you kindly for the consulation
[2022-08-24] MEDS: ACETAMINOPHEN 500 MG TAB PO PRN (17:52)
--- NOTE | 2022-08-24 19:27 | CON ---
Reason For Consultation: Consultation called because of stroke. History Of Present Illness: Mr. Paulino is a 62-year-old patient with systolic congestive heart failure , chronic stage 4 kidney disease, dyslipidemia, and chronic coronary artery disease who comes to [facility] with sudden onset of right-sided weakness. His weakness was noted while he was in a recliner and he said the right leg was more involved than the right arm and he kind of slid out of th e recliner and had difficulty getting up. He also had numbness and tingling in the same distribution . His and family had him brought to [facility] where he was immediately seen in the em ergency room. His arrival time in the emergency room per the patient was within about 15 to 20 minut es of onset of his symptoms. Symptom onset was around 09:55 and he came into [facility] and was 3 hours as an acute stroke patient and CT scan of his head was done at 10:08. That CT scan was unremarkable for any acute ischemic or hemorrhagic changes. In terms of his NIH Stroke Scale at 09:5 1, the stroke scale was 2. Given the patient's deficit, he was considered a good candidate for throm bolysis. However, the patient was on Coumadin for a mural thrombus and had actually missed a few dos es of his warfarin and his INR was slightly above the level of permissibility for thrombolysis. He w as at 1.44 and the cutoff is 1.3. He did not receive TNKs as a result. He has had, however, intrave nous heparin mg/kg dosage and since that time has had improvement in his right-sided weakness. He fe els perhaps back to 70% to 75% of normal at the time of my evaluation. His PTT today was earlier at 41.7 at 02:40 this morning, at 09:27 was 74.4, and at 01:35 p.m. was 69.2. He did have a brain MRI león may, which identified a small acute left cerebellar hemisphere infarct and a possible punctate lef t occipital lobe cortical infarct, in addition to mild chronic small-vessel ischemic disease. The fi ndings were consistent with an embolic type stroke likely from the mural thrombus. His chest x-ray s howed mild congestive heart failure. Past Medical History: Hypertension, congestive heart failure, mural thrombus, osteoarthritis, rheuma toid arthritis, pancreatitis, and gout. Past Surgical History: Cardiac stents and surgery on his finger. Allergies: PENICILLIN. Family History: Noncontributory. Social History: Denies alcohol, tobacco, or IV drug use. Review of Systems: He denies fevers, chills, nausea, vomiting, myalgias, arthralgias, rash, headache, weight change, psy chiatric issues, gastrointestinal, or genitourinary issues. He does have positive weakness in the ri ght upper and lower extremity and numbness and tingling in that distribution. Physical Examination: Vital Signs: Blood pressure 114/90, pulse of 80, respiratory rate 16, temperature 97.6, and oxygen s aturation 99%. General: Mr. Paulino is resting in bed. He is in no acute distress. HEENT: He is normocephalic, atraumatic. Sclerae anicteric. Oropharynx pink and moist. Neck: Supple. Chest: Clear. Heart: Regular. Extremities: No significant edema or cyanosis. Neurologic: In terms of his cranial nerve examination, there is a subtle decrease in the left nasola bial fold and very subtle weakness of the right upper and lower extremities. A decrease in sensation , slight in the right upper and lower compared to the left upper and lower extremities. Coordination with dysmetria in the right upper and lower extremity compared to the left side, otherwise symmetric reflexes. In terms of his gait, he was able to ambulate 300 feet with an IV pole. He did have some right lower extremity weakness and his gait was unsteady, but he did compensate well. He was evalua ana by the Speech Therapy Service and the patient did have mild word finding difficulties and no diff iculty with the content of his speech. He was clear and not aphasic. Assessment: Mr. Paulino is a 62-year-old patient who has by MRI likely cardioembolic stroke. He does h ave a large apical left ventricular thrombus measuring 3.2 x 1.8 cm and also severe tricuspid regurgi tation. He has apical anteroseptal akinesis and anterior wall severe hypokinesis and a decreased eje ction fraction from his last echocardiogram measured at 20% to 25% and that was done on August 14 . He was still subtherapeutic on his INR when the stroke occurred and is now on heparin drip and is increasing his Coumadin dosage. Plan: 1.Folic acid 1 mg daily. 2.Coumadin 5 mg daily with INR target 2.5 to 3.5. 3.Lasix 80 mg twice daily. 4.Currently heparin 5000 units with drip. 5.Zofran 4 mg as needed. 6.Lopressor 25 mg twice daily. 7.Protonix 40 mg daily. 8.The patient should be evaluated for admission to the inpatient rehabilitation unit; however, given his level of functioning, he may qualify out of inpatient unit and perhaps may benefit more from out patient physical therapy. TERESA/TERRELL Voice ID: [id number] Report ID: [id number]
[2022-08-24] MEDS: MELATONIN 5 MG TABLET PO PRN (22:48)
[2022-08-25] MEDS: HEPARIN/D5W 25,000 UNIT/500 ML BAG IV SCH ×2 (01:03→16:08)
[2022-08-25 04:32] LABS: Absolute Lymphocytes (CBC) 1.5 K/uL (0.7-4.9); Hematocrit 42.8 % (39.6-49.0); Lymphocytes % 28.2 % (15.3-44.8); MCV 90.4 fL (80-100); MPV 10.3 fL (7.6-11.3); RBC Red Blood Cell Count 4.73 M/uL (4.33-5.43)
[2022-08-25 04:34] LABS: Protime INR 1.58
[2022-08-25 04:43] LABS: Albumin 2.9 g/dL (3.4-5.0); Bilirubin Total 1.9 mg/dL (0.2-1.0); Potassium 5.1 mmol/L (3.5-5.1); Protein, Total 7.2 g/dL (6.4-8.2)
[2022-08-25] MEDS: FOLIC ACID 1 MG TABLET PO SCH (10:17)
[2022-08-25] MEDS: PANTOPRAZOLE 40MG TABLET PO SCH (10:17)
[2022-08-25] MEDS: METOPROLOL TAR 25 MG TAB PO SCH ×2 (10:17→21:00)
[2022-08-25] MEDS: FUROSEMIDE 40 MG TABLET PO SCH (10:18)
[2022-08-25] MEDS: AMIODARONE HCL 200 MG TAB PO SCH (10:19)
--- NOTE | 2022-08-25 13:55 | P.PN ---
Date of Service: 08/25/22 Vital Signs Temp Pulse Resp BP Pulse Ox 97.0 F 76 16 120/80 98 08/25/22 12:00 08/25/22 12:00 08/25/22 12:00 08/25/22 12:00 08/25/22 12:00 Medications Acetaminophen (Acetaminophen 500 Mg Tab) 500 mg PO Q6H PRN PRN Reason: Pain scale 2-4 (Mild) Last Admin: 08/24/22 17:52 Dose: 500 mg Amiodarone HCl (Amiodarone Hcl 200 Mg Tab) 200 mg PO DAILY [facility] Last Admin: 08/25/22 10:19 Dose: 200 mg Folic Acid (Folic Acid 1 Mg Tablet) 1 mg PO DAILY [facility] Last Admin: 08/25/22 10:17 Dose: 1 mg Furosemide (Furosemide 40 Mg Tablet) 80 mg PO BIDL [facility] Last Admin: 08/25/22 10:18 Dose: 80 mg Heparin Sodium/Dextrose (Heparin Drip 25,000 Units/5oo Ml Premix) 25,000 unit in 500 mls @ 0 mls/hr IV UD [facility]; Protocol Last Admin: 08/25/22 01:03 Dose: 500 mls Melatonin (Melatonin 5 Mg Tablet) 5 mg PO BEDTIME PRN PRN PRN Reason: INSOMNIA Last Admin: 08/24/22 22:48 Dose: 5 mg Metoprolol Tartrate (Metoprolol Tar 25 Mg Tab) 25 mg PO BID [facility] Last Admin: 08/25/22 10:17 Dose: 25 mg Ondansetron HCl (Ondansetron 4 Mg/2 Ml Vial) 4 mg IV Q6HP PRN PRN Reason: NAUSEA / VOMITING Last Admin: 08/24/22 15:57 Dose: 4 mg Pantoprazole Sodium (Pantoprazole 40mg Tablet) 40 mg PO DAILY [facility]; Protocol Last Admin: 08/25/22 10:17 Dose: 40 mg Sodium Chloride (Flush Normal Saline 10 Ml) 10 ml IV BID [facility] Last Admin: 08/25/22 10:19 Dose: 10 ml Warfarin Sodium (Warfarin Sodium 5 Mg Tab) 5 mg PO DAILY 5 PM [facility] Last Admin: 08/24/22 17:15 Dose: 5 mg Assessment/ Plan: Nephrology No dyspnea No chest pain Feeling better with less weakness No acute events overnight Vitals, medications, blood work and imaging reviewed in the chart. General: In no apparent distress, Oriented x3, Cooperative HEENT: Atraumatic Neck: Supple Respiratory: Clear to auscultation bilaterally Cardiovascular: Regular rate/rhythm, Edema Gastrointestinal: Soft and benign, Non-distended Musculoskeletal: No clubbing, No contractures Integumentary: No rashes, No cyanosis Neurological: Normal speech, Abnormal strength Laboratory Data (last 24 hrs) 08/23/22 22:05: PT 15.8 H, INR 1.44, APTT 30.4 08/23/22 22:05: WBC 5.60, Hgb 13.7, Hct 42.2, Plt Count 180 08/23/22 22:05: Sodium 137, Potassium 4.8, BUN 35 H, Creatinine 2.84 H, Glucose 120 H, Magnesium 2.1, Total Bilirubin 1.7 H, AST 36, ALT 23, Alkaline Phosphatase 92 Imagings Data: EXAM DESCRIPTION: RAD - Chest Single View - 08/23/2022 10:48 pm CLINICAL HISTORY: strok Chest pain. COMPARISON: Chest Single View dated 08/18/2022; Chest Single View dated 08/13/2022; Chest Single View dated 07/15/2022; Chest Single View dated 01/10/2022 FINDINGS: Portable technique limits examination quality. Mild interstitial pulmonary edema suspected. The heart is moderately enlarged in size. No displaced fractures. IMPRESSION: Mild CHF. LEFT VENTRICULAR WALL MOTION: ALMITA SEPTAL/ APICAL AKINESIS DOPPLER/COLOR FLOW: SEE BELOW COMMENTS: 1. SEVERELY DEPRESSED LEFT VENTRICULAR EJECTION FRACTION 20-25% 2. APICAL/ ALMITA SEPTAL AKINESIS WITH ANTERIOR WALL SEVERE HYPOKINESIS 3. LARGE APICAL LEFT VENTRICULAR THROMBUS 3.2 BY 1.8 CENTIMETERS 4. SEVERE TRICUSPID REGURGITATION 5. MODERATE PULMONARY HYPERTENSION 6. MILD MITRAL REGURGITATION/ MILD PULMONIC INSUFFICIENCY EXAM DESCRIPTION: US - Renal Ultrasound-Complete - 08/13/2022 5:49 am CLINICAL HISTORY: BRIDGER Flank pain COMPARISON: Abdomen Exam Limited dated 07/15/2022 FINDINGS: Both kidneys are increased in echogenicity The right kidney measures 9.1 x 5.9 x 3.7 cm. No hydronephrosis, focal mass or perinephric fluid. Small benign right renal cyst. The left kidney measures 9.6 x 6.0 x 4.1 cm. No hydronephrosis, focal mass or perinephric fluid. The urinary bladder is incompletely distended without gross abnormality seen. IMPRESSION: Echogenic kidneys are noted bilaterally compatible with underlying medical renal disease. Conclusions/Impression: Stage I BRIDGER may be due to diuresis CKD III/ IV with proteinuria -No NSAIDs -Reduce Lasix 40mg BID Hyperkalemia -Change to a renal diet -Continue Lasix HTN with CKD/ CHF -Continue Metoprolol Systolic CHF, A/C Pulmonary HTN, moderate LE Edema -Reduce furosemide Gout -Monitor uric acid level Hx HCV Hx Cocaine abuse -Recommend cessation -Check Hep & HIV Case reviewed with Dr. Jha
[2022-08-25] MEDS ORDERED: LOPERAMIDE HCL 2 MG CAPSULE PO PRN (16:01)
[2022-08-25] MEDS: WARFARIN SODIUM 5 MG TAB PO SCH (17:29)
--- NOTE | 2022-08-25 17:41 | EKG ---
Test Date: 2022-08-23 Test Time: 22:22:32 [employer] Equipment Operator: COMPA MEASUREMENT RESULTS: Intervals: Rate: 113 SC: 174 QRSD: 144 QT: 356 QTc: 488 [place]: P: 69 SC: 174 QRS: -57 T: 109 INTERPRETIVE STATEMENTS: Sinus tachycardia with premature atrial complexes Left bundle branch block Abnormal ECG Compared to ECG 08/13/2022 01:43:35 Atrial premature complex(es) now present Sinus rhythm no longer present Ventricular premature complex(es) no longer present Left-axis deviation no longer present Electronically Signed On 08-25-22 17:39:58 [employer] by Shamar De Guzman
--- NOTE | 2022-08-25 20:22 | P.PN ---
Date of Service: 08/25/22 Subjective: no acute events overnight feels near back to baseline ambulating well denies any new numbness/tingling ROS: A complete review of systems was performed and is negative except as mentioned above Physical Exam: Gen: NAD, AOx3, HEENT: normal conjunctiva, sclera anicteric, PERRL CV: regular rate & rhythm, no edema Pulm: non-labored respirations, clear bilaterally Abd: soft, non-tender, non-distended Neuro: normal speech, normal affect, moves all extremities, str 5/5 in all extremities, intact sensation vitals reviewed Problem List Right sided weakness/paresthesias secondary to embolic CVA; resolved Large left ventricular mural thrombus on warfarin with subtherapeutic INR NSTEMI Chronic systolic congestive heart failure CKD 4 GERD Hypertension MRI: consistent with emoblic CVA patient reports symtoms are all gone, and he feels back to his usual self risk increased when patient's INR <2.0 titrate coumadin up - takes 4mg at home continue heparin drip to bridge trop increased, pt with large mural thrombus - cardiology consulted continue PO lasix CKD4 Cr increased today nephrology consulted continue protonix continue metoprolol VTE: hep drip Code: full Dispo: home, ~2-3 days, once INR >2
[2022-08-25] MEDS: MELATONIN 5 MG TABLET PO PRN (21:00)
--- NOTE | 2022-08-25 23:13 | PN ---
Date of Progress Note: 08/25/2022 Subjective: Seen by bedside, doing clinically well. Review of Systems: Does not have any chest pain, shortness of breath, orthopnea, cough, nausea, vomiting, diarrhea. All other systems reviewed are negative. Physical Examination: Vital Signs: Reviewed. Head and Neck: Pupils are equal, reactive to light. Intact eye movements. No JVD. No cervical lym phadenopathy. Neck is supple. Thyroid is not enlarged. LUNGS: Clear to auscultation bilaterally. No rhonchi, rales, or crackles. No accessory muscle use. Heart: Regular. No extra sounds. ABDOMEN: Soft, nontender. Bowel sounds positive. No organomegaly. No masses or hernia. No rigidi ty or rebound. Extremities: No clubbing, cyanosis. Intact pulses. Skin: No rashes. Neuro: Alert, awake, oriented x3, and his strength on the right side is improving. Lymph Nodes: No cervical lymphadenopathy. Investigations: BUN is 38, creatinine 3.1. His INR is 1.58 and hemoglobin 13.8 and PTT is 61. Assessment/recommendation: 1.Left ventricular mural thrombus. Continue IV heparin with Coumadin until INR is above 2. 2.Acute cerebrovascular accident due to the left ventricular thrombus. IV anticoagulation is being done and we will switch him to Coumadin afterwards. 3.Systolic heart failure. He is euvolemic. Continue home medications. 4.Chronic kidney disease. BUN and creatinine are stable. 5.Elevated troponin. This is demand. He had recent stress test that was negative. SR/MODL Voice ID: [id number] Report ID: [id number]
[2022-08-26 04:37] LABS: Absolute Lymphocytes (CBC) 1.4 K/uL (0.7-4.9); Hematocrit 42.9 % (39.6-49.0); Lymphocytes % 28.3 % (15.3-44.8); MCV 90.2 fL (80-100); MPV 9.9 fL (7.6-11.3); RBC Red Blood Cell Count 4.75 M/uL (4.33-5.43)
[2022-08-26 04:42] LABS: Protime INR 1.95
[2022-08-26 04:57] LABS: Albumin 2.7 g/dL (3.4-5.0); Bilirubin Total 1.6 mg/dL (0.2-1.0); Phosphorus 4.5 mg/dL (2.5-4.9); Potassium 4.9 mmol/L (3.5-5.1); Uric Acid 12.5 mg/dL (3.5-7.2)
[2022-08-26 08:52] LABS: Specific Gravity 1.012 (1.005-1.030); Urine Bacteria <20 /HPF (<20); Urine Bilirubin NEGATIVE (Negative); Urine Blood Negative (Negative); Urine Clarity Clear (Clear); Urine Color Yellow (Yellow); Urine Glucose NEGATIVE (Negative); Urine Mucus Slight /HPF (None Seen); Urine Protein 2+ (Negative); Urine RBC <5 /HPF (None Seen); Urine Urobilinogen 1+ (Normal)
[2022-08-26] MEDS ORDERED: NA CHLORIDE 0.9% 250 ML IV SCH (10:00)
[2022-08-26] MEDS ORDERED: NA CHLORIDE 0.9% 500 ML IV SCH (10:00)
[2022-08-26] MEDS: FOLIC ACID 1 MG TABLET PO SCH (10:06)
[2022-08-26] MEDS: PANTOPRAZOLE 40MG TABLET PO SCH (10:06)
[2022-08-26] MEDS: AMIODARONE HCL 200 MG TAB PO SCH (10:07)
[2022-08-26] MEDS: METOPROLOL TAR 25 MG TAB PO SCH ×2 (10:07→19:35)
[2022-08-26 10:43] LABS: UR MICROALBUMIN 92.4 mg/dL (< 1.9); UR PROTEIN 116.5 mg/dL (<11.9); Urine Protein/Creatinine Ratio 0.78 ratio (<0.15)
--- NOTE | 2022-08-26 13:52 | P.PN ---
Date of Service: 08/26/22 Subjective: no acute events overnight feels back to baseline, but tired this morning dry mouth last 2 nights ROS: A complete review of systems was performed and is negative except as mentioned above Physical Exam: Gen: NAD, AOx3, HEENT: normal conjunctiva, sclera anicteric CV: regular rate & rhythm, no edema Pulm: non-labored respirations, clear bilaterally Abd: soft, non-tender, non-distended Neuro: normal speech, normal affect, moves all extremities, str 5/5 in all extremities, intact sensation vitals reviewed Problem List Right sided weakness/paresthesias secondary to embolic CVA; resolved Large left ventricular mural thrombus on warfarin with subtherapeutic INR NSTEMI Chronic systolic congestive heart failure BRIDGER on CKD 4 GERD Hypertension MRI: consistent with emoblic CVA patient reports symtoms are all gone, and he feels back to his usual self risk increased when patient's INR <2.0 titrate coumadin up - takes 4mg at home - continue 5mg continue heparin drip to bridge trop increased, pt with large mural thrombus - cardiology consulted suspect demand ischemia BRIDGER on CKD CKD4 Cr increased again today pt reports dry mouth last 2 nights, worsening suspect dehydration, dc lasix nephrology consulted continue protonix continue metoprolol VTE: hep drip Code: full Dispo: home, ~1-2 days, once INR >2 and pending renal function
[2022-08-26] MEDS: HEPARIN/D5W 25,000 UNIT/500 ML BAG IV PRN (15:50)
[2022-08-26] MEDS ORDERED: FUROSEMIDE 40 MG TABLET PO SCH (17:00)
[2022-08-26] MEDS: WARFARIN SODIUM 5 MG TAB PO SCH (17:04)
[2022-08-26] MEDS: ACETAMINOPHEN 500 MG TAB PO PRN (19:35)
[2022-08-26] MEDS: MELATONIN 5 MG TABLET PO PRN (19:35)
--- NOTE | 2022-08-26 20:49 | PN ---
Date of Progress Note: 08/26/2022 Subjective: Seen at bedside. Clinically doing well. Does not have any new complaints. Review of Systems: No chest pain, shortness of breath, orthopnea, cough, nausea, vomiting, diarrhea. No dysuria, polyur ia, or urinary urgency. All other systems reviewed are negative. Physical Examination: Vital Signs: Temperature is 97.9, pulse 85, breathing at 18, blood pressure is 121/91, saturating 98 % on room air. General: Pleasant, middle-aged male, in no apparent distress. Head and Neck: Pupils are equal, reactive to light. Intact eye movements. No JVD. No cervical lym phadenopathy. Neck: Supple. Thyroid is not enlarged. Lungs: Clear to auscultation bilaterally. No rhonchi, rales, or crackles. No accessory muscle use. Heart: Irregular. No extra sounds. Abdomen: Soft, nontender. Bowel sounds positive. No organomegaly. No rigidity or rebound. Extremities: No edema, clubbing, or cyanosis. Intact pulses. Skin: No rash. No nodules. Neurologic: Alert, awake, oriented x3. No acute focal deficits appreciated. Investigations: INR is 1.95, PTT 74. Hemoglobin is 14. Assessment And Recommendation: 1.Left ventricular mural thrombus that caused an acute cerebrovascular accident. Continue heparin. Continue Coumadin until INR is between 2 and 3 and to overlap for 24 hours after the INR becomes the rapeutic. 2.Acute cerebrovascular accident due to left ventricular thrombus. Management as outlined above. 3.Chronic systolic heart failure. The patient is euvolemic. Continue current management. SR/MODL Voice ID: [id number] Report ID: [id number]
[2022-08-27 03:55] LABS: Hepatitis B Core Ab, Total Nonreactive (Nonreactive); Hepatitis B Core IgM Nonreactive (Nonreactive)
[2022-08-27 04:19] LABS: Absolute Lymphocytes (CBC) 1.5 K/uL (0.7-4.9); Hematocrit 41.2 % (39.6-49.0); Lymphocytes % 26.2 % (15.3-44.8); MPV 10.3 fL (7.6-11.3); RBC Red Blood Cell Count 4.63 M/uL (4.33-5.43)
[2022-08-27 04:23] LABS: Protime INR 2.32
[2022-08-27 04:43] LABS: Albumin 2.8 g/dL (3.4-5.0); Bilirubin Total 1.3 mg/dL (0.2-1.0); Potassium 4.5 mmol/L (3.5-5.1); Protein, Total 6.9 g/dL (6.4-8.2)
[2022-08-27] MEDS: METOPROLOL TAR 25 MG TAB PO SCH ×2 (08:30→21:12)
[2022-08-27] MEDS: PANTOPRAZOLE 40MG TABLET PO SCH (08:30)
[2022-08-27] MEDS: FOLIC ACID 1 MG TABLET PO SCH (08:30)
[2022-08-27] MEDS: AMIODARONE HCL 200 MG TAB PO SCH (08:30)
[2022-08-27] MEDS: SODIUM CHLORIDE 1 GM TAB PO SCH ×4 (11:14→21:11)
[2022-08-27] MEDS: HEPARIN/D5W 25,000 UNIT/500 ML BAG IV PRN (14:17)
[2022-08-27] MEDS: WARFARIN SODIUM 5 MG TAB PO SCH (16:38)
--- NOTE | 2022-08-27 20:37 | PN ---
Date of Progress Note: 08/27/2022 Subjective: Seen at bedside. Doing well. No new complaints. His INR is therapeutic at 2.3. Review of Systems: No chest pain, shortness of breath, orthopnea, or cough. No nausea, vomiting, or diarrhea. No abdom inal pain. No dysuria, polyuria, or urinary urgency. No skin rash or headache. All other systems r eviewed are negative. Physical Examination: Vital Signs: Reviewed. Temperature is 97.0, pulse 62, breathing at 16, blood pressure is 119/91, sa turating 95% on room air. General: Pleasant, middle-aged male, in no apparent distress. Head and Neck: Pupils are equal, reactive to light. Intact eye movements. No JVD. No cervical lym phadenopathy. Neck is supple. Thyroid is not enlarged. Lungs: Clear to auscultation bilaterally. No rhonchi, rales, or crackles. No accessory muscle use. Heart: Irregularly irregular. No extra sounds. Abdomen: Soft, nontender. Bowel sounds positive. No organomegaly. No masses. No rigidity or rebo und. Extremities: No edema, clubbing, or cyanosis. Intact pulses. Skin: No rash or nodules. Neurologic: Alert, awake, oriented x3. No acute focal deficits appreciated. Investigations: BUN is 48, creatinine 3.9, and hemoglobin is 15.2. Assessment/recommendation: 1.Left ventricular apical mural thrombus. He is fully anticoagulated with Coumadin now. Continue C oumadin and to keep INR between 2 and 3. 2.Severe systolic heart failure and patient appears to be euvolemic. Continue current management. 3.Advanced kidney disease. Maybe there is an acute component to it and Nephrology is following up w ith the patient. SR/MODL Voice ID: [id number] Report ID: [id number]
--- NOTE | 2022-08-27 20:52 | P.PN ---
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; resolved Large left ventricular mural thrombus on warfarin with subtherapeutic INR NSTEMI Chronic systolic congestive heart failure BRIDGER on CKD 4 GERD Hypertension MRI: consistent with emoblic CVA patient reports symptoms are all gone, and he feels back to his usual self risk increased when patient's INR <2.0 titrate coumadin up - takes 4mg at home - continue 5mg continue heparin drip to bridge - cardiology recommends 24hr overlap, dc 08/28 AM trop increased, pt with large mural thrombus - cardiology consulted suspect demand ischemia BRIDGER on CKD CKD4 Cr increased again today, but less of a change pt reports dry mouth last 2 nights, worsening on 08/26, suspect dehydration, dc lasix on 08/26 nephrology consulted check renal U/S, doppler continue protonix continue metoprolol VTE: hep drip, coumadin Code: full Dispo: home, ~1-2 days, once INR >2 and pending renal function
[2022-08-27] MEDS: ACETAMINOPHEN 500 MG TAB PO PRN (21:11)
[2022-08-27] MEDS: MELATONIN 5 MG TABLET PO PRN (21:11)
[2022-08-27] MEDS ORDERED: SODIUM CHLORIDE 0.9% 10ML INJ IV PRN (21:48)
[2022-08-27] MEDS ORDERED: PANTOPRAZOLE 40 MG INJ IVP ONE (21:48)
--- NOTE | 2022-08-27 21:48 | P.PN ---
Date of Service: 08/27/22 Vital Signs Temp Pulse Resp BP Pulse Ox 97.0 F 68 16 125/92 H 98 08/27/22 20:00 08/27/22 21:12 08/27/22 20:00 08/27/22 21:12 08/27/22 20:00 Medications Acetaminophen (Acetaminophen 500 Mg Tab) 500 mg PO Q6H PRN PRN Reason: Pain scale 2-4 (Mild) Last Admin: 08/27/22 21:11 Dose: 500 mg Amiodarone HCl (Amiodarone Hcl 200 Mg Tab) 200 mg PO DAILY [facility] Last Admin: 08/27/22 08:30 Dose: 200 mg Folic Acid (Folic Acid 1 Mg Tablet) 1 mg PO DAILY [facility] Last Admin: 08/27/22 08:30 Dose: 1 mg Heparin Sodium/Dextrose (Heparin Drip 25,000 Units/5oo Ml Premix) 25,000 unit in 500 mls @ 0 mls/hr IV TITR PRN; Protocol PRN Reason: PER PTT RESULTS Last Admin: 08/27/22 14:17 Dose: 500 mls Loperamide HCl (Loperamide Hcl 2 Mg Capsule) 2 mg PO Q4H PRN PRN Reason: DIARRHEA Last Admin: 08/25/22 18:09 Dose: 2 mg Melatonin (Melatonin 5 Mg Tablet) 5 mg PO BEDTIME PRN PRN PRN Reason: INSOMNIA Last Admin: 08/27/22 21:11 Dose: 5 mg Metoprolol Tartrate (Metoprolol Tar 25 Mg Tab) 25 mg PO BID [facility] Last Admin: 08/27/22 21:12 Dose: 25 mg Ondansetron HCl (Ondansetron 4 Mg/2 Ml Vial) 4 mg IV Q6HP PRN PRN Reason: NAUSEA / VOMITING Last Admin: 08/24/22 15:57 Dose: 4 mg Pantoprazole Sodium (Pantoprazole 40mg Tablet) 40 mg PO DAILY [facility]; Protocol Last Admin: 08/27/22 08:30 Dose: 40 mg Sodium Chloride (Flush Normal Saline 10 Ml) 10 ml IV BID [facility] Last Admin: 08/27/22 21:00 Dose: 10 ml Warfarin Sodium (Warfarin Sodium 5 Mg Tab) 5 mg PO DAILY 5 PM [facility] Last Admin: 08/27/22 16:38 Dose: 5 mg Assessment/ Plan: Nephrology No dyspnea No chest pain Feeling well No acute events overnight Vitals, medications, blood work and imaging reviewed in the chart. General: In no apparent distress, Oriented x3, Cooperative HEENT: Atraumatic Neck: Supple Respiratory: Clear to auscultation bilaterally Cardiovascular: Regular rate/rhythm, Edema Gastrointestinal: Soft and benign, Non-distended Musculoskeletal: No clubbing, No contractures Integumentary: No rashes, No cyanosis Neurological: Normal speech, Abnormal strength Laboratory Data (last 24 hrs) 08/23/22 22:05: PT 15.8 H, INR 1.44, APTT 30.4 08/23/22 22:05: WBC 5.60, Hgb 13.7, Hct 42.2, Plt Count 180 08/23/22 22:05: Sodium 137, Potassium 4.8, BUN 35 H, Creatinine 2.84 H, Glucose 120 H, Magnesium 2.1, Total Bilirubin 1.7 H, AST 36, ALT 23, Alkaline Phosph atase 92 Imagings Data: EXAM DESCRIPTION: RAD - Chest Single View - 08/23/2022 10:48 pm CLINICAL HISTORY: strok Chest pain. COMPARISON: Chest Single View dated 08/18/2022; Chest Single View dated 08/13/2022; Chest Single View dated 07/15/2022; Chest Single View dated 01/10/2022 FINDINGS: Portable technique limits examination quality. Mild interstitial pulmonary edema suspected. The heart is moderately enlarged in size. No displaced fractures. IMPRESSION: Mild CHF. LEFT VENTRICULAR WALL MOTION: ALMITA SEPTAL/ APICAL AKINESIS DOPPLER/COLOR FLOW: SEE BELOW COMMENTS: 1. SEVERELY DEPRESSED LEFT VENTRICULAR EJECTION FRACTION 20-25% 2. APICAL/ ALMITA SEPTAL AKINESIS WITH ANTERIOR WALL SEVERE HYPOKINESIS 3. LARGE APICAL LEFT VENTRICULAR THROMBUS 3.2 BY 1.8 CENTIMETERS 4. SEVERE TRICUSPID REGURGITATION 5. MODERATE PULMONARY HYPERTENSION 6. MILD MITRAL REGURGITATION/ MILD PULMONIC INSUFFICIENCY EXAM DESCRIPTION: US - Renal Ultrasound-Complete - 08/13/2022 5:49 am CLINICAL HISTORY: BRIDGER Flank pain COMPARISON: Abdomen Exam Limited dated 07/15/2022 FINDINGS: Both kidneys are increased in echogenicity The right kidney measures 9.1 x 5.9 x 3.7 cm. No hydronephrosis, focal mass or perinephric fluid. Small benign right renal cyst. The left kidney measures 9.6 x 6.0 x 4.1 cm. No hydronephrosis, focal mass or perinephric fluid. The urinary bladder is incompletely distended without gross abnormality seen. IMPRESSION: Echogenic kidneys are noted bilaterally compatible with underlying medical renal disease. Conclusions/Impression: Stage I BRIDGER may be due to diuresis CKD III/ IV with proteinuria -No NSAIDs -Hold Lasix Hyperkalemia -Renal diet HTN with CKD/ CHF -Continue Metoprolol Systolic CHF, A/C Pulmonary HTN, moderate LE Edema -Hold furosemide Gout -Monitor uric acid level -Consider Allopurinol Hx HCV Hx Cocaine abuse -Recommend cessation -Hep & HIV pending Case reviewed with Dr. Jha
[2022-08-27] MEDS: ONDANSETRON 4 MG/2 ML VIAL IV PRN (21:52)
[2022-08-28 04:13] VITALS: O2SAT 97
[2022-08-28 05:45] LABS: Albumin 2.9 g/dL (3.4-5.0); Bilirubin Total 1.2 mg/dL (0.2-1.0); Magnesium 2.2 mg/dL (1.6-2.4); Phosphorus 5.4 mg/dL (2.5-4.9); Potassium 4.6 mmol/L (3.5-5.1); Protein, Total 7.2 g/dL (6.4-8.2); Uric Acid 12.4 mg/dL (3.5-7.2)
[2022-08-28 06:45] LABS: Protime INR 2.55
[2022-08-28] MEDS: PANTOPRAZOLE 40MG TABLET PO SCH (09:00)
[2022-08-28] MEDS: FOLIC ACID 1 MG TABLET PO SCH (09:00)
[2022-08-28] MEDS: METOPROLOL TAR 25 MG TAB PO SCH (09:00)
[2022-08-28] MEDS: AMIODARONE HCL 200 MG TAB PO SCH (09:00)
--- NOTE | 2022-08-28 10:11 | RAD REPORT ---
EXAM DESCRIPTION: US - Abdomen Pelvis Scan US - 08/28/2022 5:45 am CLINICAL HISTORY: Worsening acute renal failure COMPARISON: August 13, 2022 FINDINGS: The right kidney measures 10 centimeters. Increased echotexture. No hydronephrosis. Small cysts The left kidney measures 9 centimeters. Increased echotexture. No hydronephrosis The velocity of the right renal artery 40 centimeters/second The velocity of the left renal artery 33 centimeters/second Renal artery/aorta ratio is within normal limits. Bladder is not well distended without visualization of a gross abnormality IMPRESSION: Increased renal echotexture probably indicating parenchymal disease No sonographic evidence of renal arterial stenosis
[2022-08-28 10:27] LABS: Specific Gravity 1.012 (1.005-1.030); Urine Bacteria None Seen /HPF (<20); Urine Bilirubin NEGATIVE (Negative); Urine Blood Negative (Negative); Urine Clarity Clear (Clear); Urine Color Yellow (Yellow); Urine Glucose NEGATIVE (Negative); Urine Mucus Slight /HPF (None Seen); Urine Protein 2+ (Negative); Urine RBC <5 /HPF (None Seen); Urine Urobilinogen Normal (Normal); Urine pH 5.5 (5.0-7.0)
[2022-08-28 10:40] LABS: UR SODIUM 33 mmol/L (27-287)
[2022-08-28 10:46] LABS: UR CL RANDOM < 12 mmol/L (25-40)
[2022-08-28 12:30] VITALS: TEMP 96.8
--- NOTE | 2022-08-28 15:28 | PN ---
Date of Progress Note: 08/28/2022 Subjective: Seen by bedside. Doing well. No new complaints. Review of Systems: No chest pain, shortness of breath, orthopnea, cough, nausea, vomiting, diarrhea. All other systems reviewed and they were negative. Physical Examination: Vital Signs: Reviewed. Head and Neck: Pupils are equal, reactive to light. Intact eye movements. No JVD. No cervical lym phadenopathy. Neck is supple. Thyroid is not enlarged. Lungs: Clear to auscultation bilaterally. No rhonchi, wheezing, or crackles. No accessory muscle u se. Heart: Irregular. No extra sounds. Abdomen: Soft, nontender. Bowel sounds positive. No organomegaly. No masses or hernia. No rigidi ty or rebound. Extremities: No clubbing or cyanosis. Intact pulses. Skin: No rash. Neurologic: Alert, awake, oriented x3. No acute focal deficits appreciated. Investigations: INR is 2.55 and BUN is 49, creatinine is 4.1. Assessment And Recommendations: 1.Left ventricular mural thrombus. INR is therapeutic. Off heparin. Continue current dose of Coum rudolph. 2.Atrial fibrillation, controlled. Continue amiodarone and warfarin for anticoagulation. 3.Advanced kidney failure disease. Kidney function is worsening. The patient started to become fluid overloaded. Recommend diuresis and we will consult Nephrology. SR/MODL Voice ID: [id number] Report ID: [id number]
[2022-08-28 16:19] VITALS: BP 131/86
[2022-08-28] MEDS: WARFARIN SODIUM 5 MG TAB PO SCH (16:35)
[2022-08-28 18:06] LABS: Hepatitis C Virus RNA (PCR)log 5.15 log IU/mL
--- NOTE | 2022-08-28 18:15 | P.DS ---
Admission Date: 08/24/22 Discharge Date: 08/28/22 Disposition: DC HOME/HOME HEALTH CARE Discharge Condition: FAIR Reason for Admission: Right-sided weakness, mural thrombus Brief History of Present Illness: 62-year-old male with history of chronic systolic congestive heart failure, CKD 4, CAD, hyperlipidemia, GERD presented to the emergency department for acute onset of right-sided weakness. He reports that he was in his recliner last known well was at 2100 on 08/23/2022, he developed significant weakness of the right upper and lower extremity as well as decreased sensation/numbness tingling of his extremities. He is brought to the emergency department for evaluation, his symptoms did significantly improve although he was still having some right lower extremity weakness and paresthesias of the right and lower extremity. Dur ing his recent admission (discharged 08/19/2022) patient was found to have a mural thrombus in his left ventricle and he was started on warfarin, at discharge his INR was 2.9 but his INR is down to 1.44 on admit. Case was discussed with cardiology as well as neurology, he was considered not a candidate for TNKase given his INR of greater than 1.3 and use of anticoagulation although he was subtherapeutic with his INR, for that reason he was started on a heparin drip. CT head was negative for acute findings, angio was deferred given elevated creatinine and CKD. Patient was admitted for further management. Hospital Course: Diagnosis Right sided weakness/paresthesias secondary to embolic CVA. Large left ventricular mural thrombus on warfarin NSTEMI Chronic systolic congestive heart failure BRIDGER on CKD 4 GERD Hypertension Patient admitted to the medical floor and MRI of the brain done. MRI: consistent with emoblic CVA. He was treated with heparin drip and Coumadin. Patient extremity weakness resolved. Coumadin titrated up to 5 mg, INR improved to 2.5 and heparin drip discontinued after 24 hours of full bolus Patient seen by cardiology. He had elevated troponin considered to be secondary to demand ischemia. He also has BRIDGER on CKD. Serum creatinine level trended up. He was seen in consultation by nephrology Dr. Rossi and his diuretics held. Renal U/S, doppler did not show any significant occlusion to suggest thromboembolic event contributing to the rising creatinine. FeNa suggested prerenal failure per Dr. Rossi. Patient is on amiodarone and metoprolol which were continued during the hospital stay. Patient's neurologic symptoms have resolved. He is currently at baseline. Arrangement has been made for patient to follow-up with cardiology for PT/INR check and Coumadin dose adjustment. Target INR is 2-3. Also seen by nephrology Dr. Rossi today. Patient adamant on going home. At this point Dr. Rossi recommend holding Lasix on discharge and follow-up with him to monitor his renal function in the office. Patient vitals are stable for discharge. He is discharged per his request with warfarin 5 mg daily. He has been informed of the follow-up with cardiology and nephrology and reemphasized compliance with medications and appointments. Vital Signs/Physical Exam: Temp Pulse Resp BP Pulse Ox 96.8 F 87 16 131/86 97 08/28/22 16:00 08/28/22 16:00 08/28/22 16:00 08/28/22 16:00 08/28/22 16:00 General: Alert, In no apparent distress, Oriented x3 HEENT: Mucous membr. moist/pink Neck: Supple, JVD not distended Respiratory: Clear to auscultation bilaterally, Normal air movement Cardiovascular: Regular rate/rhythm, Normal S1 S2, Other (Trace bilateral lower extremity edema) Gastrointestinal: Normal bowel sounds, Soft and benign, Non-distended, No tenderness Integumentary: No cyanosis Neurological: Normal strength at 5/5 x4 extr, Cranial nerves 3-12 intact Laboratory Data at Discharge: WBC 5.90 K/uL (4.3-10.9) 08/27/22 03:50 Hgb 13.2 g/dL (13.6-17.9) L 08/27/22 03:50 Hct 41.2 % (39.6-49.0) 08/27/22 03:50 Plt Count 164 K/uL (152-406) 08/27/22 03:50 PT 28.0 SECONDS (9.5-12.5) H 08/28/22 05:15 INR 2.55 08/28/22 05:15 APTT 62.4 SECONDS (24.3-36.9) H 08/28/22 05:15 Sodium 137 mmol/L (136-145) D 08/28/22 05:15 Potassium 4.6 mmol/L (3.5-5.1) 08/28/22 05:15 BUN 49 mg/dL (7-18) H 08/28/22 05:15 Creatinine 4.14 mg/dL (0.70-1.30) H 08/28/22 05:15 Glucose 96 mg/dL (74-106) 08/28/22 05:15 Uric Acid 12.4 mg/dL (3.5-7.2) H 08/28/22 05:15 Phosphorus 5.4 mg/dL (2.5-4.9) H 08/28/22 05:15 Magnesium 2.2 mg/dL (1.6-2.4) 08/28/22 05:15 Total Bilirubin 1.2 mg/dL (0.2-1.0) H 08/28/22 05:15 AST 109 U/L (15-37) H 08/28/22 05:15 ALT 69 U/L (16-61) H 08/28/22 05:15 Alkaline Phosphatase 74 U/L (45-117) 08/28/22 05:15 Triglycerides 58 mg/dL (<150) 08/24/22 02:40 Cholesterol 121 mg/dL (<200) 08/24/22 02:40 HDL Cholesterol 59 mg/dL (40-60) 08/24/22 02:40 Cholesterol/HDL Ratio 2.05 08/24/22 02:40 Home Medications: Metoprolol Tartrate 1 tab PO BID 01/18/21 Amiodarone HCl [Pacerone] 1 tab PO DAILY 09/05/21 Pantoprazole [Protonix Tab*] 40 mg PO DAILY #30 tab 09/06/21 Aspirin [Aspirin EC 81 MG] 81 mg PO DAILY #30 tab 08/28/22 Folic Acid 1 mg PO DAILY #30 tab 08/28/22 Warfarin Sodium [Coumadin*] 5 mg PO DAILY 5 PM #30 tab 08/28/22 New Medications: Aspirin [Aspirin EC 81 MG] 81 mg PO DAILY #30 tab Warfarin Sodium [Coumadin*] 5 mg PO DAILY 5 PM #30 tab Folic Acid 1 mg PO DAILY #30 tab Physician Discharge Instructions: You need your PT/INR checked within 2 to 3 days for warfarin dose adjustment. Patient states that he will follow with cardiology Dr. Beth for that purpose. He is also aware that he is supposed to follow-up with Dr. De Guzman tomorrow in the office. He is aware he is supposed to call Dr. Navarro for an appointment regarding his kidney function and will need his renal function checked this week per Dr. Rossi's recommendation. Compliance with medications and appointments reemphasized. Diet: AHA Activity: Ad pelon Followup: Unknown,U [Primary Care Provider] - Time spent managing pt's care (in minutes): 38
--- NOTE | 2022-08-28 19:01 | P.PN ---
Date of Service: 08/28/22 Vital Signs Temp Pulse Resp BP Pulse Ox 96.8 F 87 16 131/86 97 08/28/22 16:00 08/28/22 16:00 08/28/22 16:00 08/28/22 16:00 08/28/22 16:00 Assessment/ Plan: Nephrology No dyspnea No chest pain Feeling well No acute events overnight Vitals, medications, blood work and imaging reviewed in the chart. General: In no apparent distress, Oriented x3, Cooperative HEENT: Atraumatic Neck: Supple Respiratory: Clear to auscultation bilaterally Cardiovascular: Regular rate/rhythm, Edema Gastrointestinal: Soft and benign, Non-distended Musculoskeletal: No clubbing, No contractures Integumentary: No rashes, No cyanosis Neurological: Normal speech, Abnormal strength Laboratory Data (last 24 hrs) 08/23/22 22:05: PT 15.8 H, INR 1.44, APTT 30.4 08/23/22 22:05: WBC 5.60, Hgb 13.7, Hct 42.2, Plt Count 180 08/23/22 22:05: Sodium 137, Potassium 4.8, BUN 35 H, Creatinine 2.84 H, Glucose 120 H, Magnesium 2.1, Total Bilirubin 1.7 H, AST 36, ALT 23, Alkaline Phosphatase 92 Imagings Data: EXAM DESCRIPTION: RAD - Chest Single View - 08/23/2022 10:48 pm CLINICAL HISTORY: strok Chest pain. COMPARISON: Chest Single View dated 08/18/2022; Chest Single View dated 08/13/2022; Chest Single View dated 07/15/2022; Chest Single View dated 01/10/2022 FINDINGS: Portable technique limits examination quality. Mild interstitial pulmonary edema suspected. The heart is moderately enlarged in size. No displaced fractures. IMPRESSION: Mild CHF. LEFT VENTRICULAR WALL MOTION: ALMITA SEPTAL/ APICAL AKINESIS DOPPLER/COLOR FLOW: SEE BELOW COMMENTS: 1. SEVERELY DEPRESSED LEFT VENTRICULAR EJECTION FRACTION 20-25% 2. APICAL/ ALMITA SEPTAL AKINESIS WITH ANTERIOR WALL SEVERE HYPOKINESIS 3. LARGE APICAL LEFT VENTRICULAR THROMBUS 3.2 BY 1.8 CENTIMETERS 4. SEVERE TRICUSPID REGURGITATION 5. MODERATE PULMONARY HYPERTENSION 6. MILD MITRAL REGURGITATION/ MILD PULMONIC INSUFFICIENCY EXAM DESCRIPTION: US - Renal Ultrasound-Complete - 08/13/2022 5:49 am CLINICAL HISTORY: BRIDGER Flank pain COMPARISON: Abdomen Exam Limited dated 07/15/2022 FINDINGS: Both kidneys are increased in echogenicity The right kidney measures 9.1 x 5.9 x 3.7 cm. No hydronephrosis, focal mass or perinephric fluid. Small benign right renal cyst. The left kidney measures 9.6 x 6.0 x 4.1 cm. No hydronephrosis, focal mass or perinephric fluid. The urinary bladder is incompletely distended without gross abnormality seen. IMPRESSION: Echogenic kidneys are noted bilaterally compatible with underlying medical renal disease. Conclusions/Impression: Stage III BRIDGER may be due to diuresis vs atheroembolic disease of the kidney CKD III/ IV with proteinuria -No NSAIDs -Hold Lasix Hyperkalemia -Renal diet HTN with CKD/ CHF -Continue Metoprolol Systolic CHF, A/C Pulmonary HTN, moderate LE Edema -Hold furosemide Gout -Monitor uric acid level -Consider Allopurinol Hx HCV Hx Cocaine abuse -Recommend cessation -Hep & HIV pending Case reviewed with Dr. Boyle The patient insisted on being discharged today. The risks and benefits of discharge in the setting of worsening BRIDGER were reviewed with the patient. Mr. Paulino stated that he wanted to make his appt with cardiology in the morning and will follow up in the nephrology clinic as recommended. The patient was cautioned about the possible need for dialysis if his kidney function worsens.
[2022-08-29 10:25] LABS: HIV AG/AB 4TH GEN Non-reactive (Non-reactive)
[2022-08-29 10:27] LABS: Immunoglobulin A 34 mg/dL (70-320); Immunoglobulin G 2212 mg/dL (600-1540); Immunoglobulin M 122 mg/dL (50-300)
[2022-08-29 15:30] LABS: Albumin, (SPE) 3.1 g/dL (3.8-4.8); Alpha-1-Globulins 0.5 g/dL (0.2-0.3); Alpha-2-Globulins 0.8 g/dL (0.5-0.9); INTERPRETATION REPORT
== END 2022-08-28 18:31 | disposition home health service (06) | DRG 64 ==
LOC: ER 21:53 → ERHOLD 08-24 00:13 → 4TH 08-24 01:17
PROVIDERS: ADMIT Hospitalist; ATTEND Internal Medicine
DX: I63.9 Cerebral infarction, unspecified (principal); I21.A1 Myocardial infarction type 2; I13.0 Hypertensive heart and chronic kidney disease with heart failure and stage 1 through stage 4 chronic kidney disease, or unspecified chronic kidney disease; N18.4 Chronic kidney disease, stage 4 (severe); I50.22 Chronic systolic (congestive) heart failure; G81.91 Hemiplegia, unspecified affecting right dominant side; N17.9 Acute kidney failure, unspecified; E78.5 Hyperlipidemia, unspecified; M10.9 Gout, unspecified; E87.5 Hyperkalemia; I07.1 Rheumatic tricuspid insufficiency; K21.9 Gastro-esophageal reflux disease without esophagitis; I25.10 Atherosclerotic heart disease of native coronary artery without angina pectoris; R29.702 NIHSS score 2; R20.2 Paresthesia of skin; Z23 Encounter for immunization; Z88.0 Allergy status to penicillin; Z79.01 Long term (current) use of anticoagulants; Z79.82 Long term (current) use of aspirin; Z79.899 Other long term (current) drug therapy; Z20.822 Contact with and (suspected) exposure to COVID-19
CPT/HCPCS: 36415; 70450; 70551; 71045; 80048; 80053; 80061; 80076; 81001; 82043; 82435; 82565; 82570; 82784; 82947; 83735; 83880; 84100; 84132; 84156; 84165; 84300; 84484; 84550; 85025; 85610; 85730; 86038; 86160; 86335; 86704; 86705; 86706; 87389; 87522; 87811; 92523; 93005; 93880; 93975; 96365; 97116; 97161; 97165; 97530; 99285; C9113; J1644; J2405; J7030

== ENCOUNTER 2022-10-12 12:12 | Inpatient (IN) | payer OTHER ==
--- OUTSIDE RECORDS SUMMARY | 2022-10-12 12:17 | XMS REPORT | Continuity of Care Document ---
:1960 Author Organization [facility] t Address [address] [place] [address] Care Team Providers Name Role Phone CARISA STOCKTON Attending Clinician Unavailable CLAYTON MARRUFO Attending Clinician Unavailable JT BELL Attending Clinician Unavailable Payers Payer Name Policy Type Policy Number Effective Date Expiration Date S herman [employer] [place] [employer] 7 [id number] 2022 00:00:00 PLAN HMO Problems Condition Condition Condition Status Onset Resolution Last Treating Co mments Source Name Details Category Date Date Treatment Clinician Date Chronic Chronic Disease Active Overview: Lynsey ey anticoagul anticoagul 2 Formattin Seybold ation ation 00:00: g of this - 00 note Externa might be l different from the original. 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 09-27 Seybold state due state due 00:00: - to heart to heart 00 Process Description Writer a valve valve l disorder disorder Malignant Malignant Disease Active Elan glover hypertensi hypertensi 2 Se ybold on with on with 00:00: - chronic chronic 00 Externa renal renal l disease disease stage IV stage IV 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 Nephrolog y Dr. 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 00:00: - ventricle ventricle 00 Exte rna without IA without IA l Mixed Mixed Disease Active David hyperlipid hyperlipid 09-27 Se ybold emia emia 00:00: - 00 Externa l History of History of Disease Active K azranolan CVA CVA 1- Seybold (cerebrova (cerebrova 00:00: - scular scular 00 Externa accident) accident) l Allergies, Adverse Reactions, Alerts Allergy Allergy Status Severity Reaction(s) Onset Inactive Treating Comm ents Source Name Type Date Date Clinician Penicill Propensi Active David ins ty to 09-25 Seybold adverse 00:00: - reaction 00 Externa s l Social History Social Habit Start Date Stop Date Quantity Comments Source History SDOH David ray - Alcohol Std Drinks Process Description Writer al History JODIOH David ray - Alcohol Binge External History SDOH David ray - Alcohol Frequency Externa l Alcohol Comment 2022-09-27 2022-09-27 Sober since David cronin - 00:00:00 00:00:July External Education 2022-09-27 2022-09-27 13 David Solis - 00:00:00 00:00:00 External Tobacco use and 2022-09-27 2022-09-27 Smokeless tobacco Ke lsey Seybold - exposure 00:00:00 00:00:00 non-user External Alcohol intake 2022-09-27 2022-09-27 Ex-drinker David Sey bold - 00:00:00 00:00:00 (finding) External Sex Ass[birth year] At [birth year] David mcnamaraold - 00:00:00 00:00:00 External Smoking Status Start Date Stop Date Source Never smoked tobacco David Seyb old - External Medications Ordered Filled Start Stop Current Ordering Indication Dosage Frequency Signature Comments Components Source Medication Medication Date Date Medication? Clinician (SIG) Name Name Allopurinol Yes 300mg QD Take 300 K elsey 300 MG oral 2-09 mg by Seybold Tablet 13:10: mouth - 06 daily as Externa needed l Gabapentin Yes 100mg Take 100 Ke lsey 100 MG oral 2-09 mg by Seybold Capsule 13:10: mouth 2 - 06 times Externa daily l Warfarin Yes [id number] .5mg Take 0.5 David Sodium - 9102 tablets Seybold (COUMADIN) 00:00: (0.5 mg - 1 MG oral 00 total) by Exter na Tablet mouth l daily Warfarin Yes 5mg Take 5 mg Lynsey ey (COUMADIN) 01 by mouth Seybo ld 5 MG oral 00:00: daily - Tablet 00 Externa l Folic Acid Yes 1mg Take 1 mg Ke lsey 1 MG oral 11 by mouth Seybol d tablet 00:00: daily - 00 Externa l Atorvastati Yes 40mg Take 40 mg David n Calcium 1-04 by mouth Seybol d 40 MG oral 00:00: daily - Tablet 00 Externa l Furosemide 2022-0 Yes 80mg Take 80 mg K elsey 80 MG oral 1-04 by mouth 2 Sey bold Tablet 00:00: times - 00 daily Externa l Metoprolol 2022-0 Yes 25mg Take 25 mg K elsey Tartrate 1-04 by mouth 2 Seybo ld (LOPRESSOR) 00:00: times - 25 MG oral 00 daily Externa Tablet l Pantoprazol Yes 40mg Take 40 mg David e Sodium 40 1-04 by mouth Seyb old MG oral 00:00: daily - Tablet 00 Externa Delayed l Response Atorvastati 2022- No 40mg Take 40 mg David n Calcium 08-22 by mouth Seybo ld 40 MG oral 00:00: 00:00 daily - Tablet 00 :00 Externa l Warfarin 2022- No 4mg Take 4 mg Elan sey Sodium 4 MG 08-19 by mouth Sey bold oral Tablet 00:00: 00:00 daily - 00 :00 Externa l Immunizations Ordered Immunization Filled Immunization Date Status Commen ts Source Name Name Influenza, Seasonal, 2022-08-13 Completed Lynsey ey Seybold Injectable, 00:00:00 - External Preservative Free Pneumococcal Vaccine, 2021-09-06 Completed Elan sey Seybold Polysaccharide 00:00:00 - External Influenza, Seasonal, 2021-09-06 Completed Lynsey ey Seybold Injectable, 00:00:00 - External Preservative Free Influenza, Seasonal, 2020-09-23 Completed Lynsey ey Seybold Injectable, 00:00:00 - External Preservative Free Pneumococcal Vaccine, 2016-10-31 Completed Elan sey Seybold Polysaccharide 00:00:00 - External Influenza, Seasonal, 2016-10-31 Completed Lynsey ey Seybold Injectable, 00:00:00 - External Preservative Free Vital Signs Vital Name Observation Time Observation Value Comments Source Systolic blood 2022-09-27 19:06:00 144 mm[Hg] David Ortizold - pressure External Diastolic blood 2022-09-27 19:06:00 86 mm[Hg] Louis Ortizold - pressure External Heart rate 2022-09-27 19:06:00 82 /min David Akilah mehrdad - External Body temperature 2022-09-27 19:06:00 36.33 Alesha Lynsey burgos Seybold - External Respiratory rate 2022-09-27 19:06:00 14 /min Lynsey Ortizold - External Body height 2022-09-27 19:06:00 190.5 cm David cronin - External Body weight 2022-09-27 19:06:00 94.348 kg David cronin - External BMI 2022-09-27 19:06:00 26.00 kg/m2 David cronin - External Oxygen saturation in 2022-09-27 19:06:00 99 /min David Solis - Arterial blood by External Pulse oximetry Procedures This patient has no known procedures. Encounters Start End Encounter Admission Attending Care Care Encounter Source Date/Time Date/Time Type Type Clinicians Facility Department ID 2022-10-25 2022-10-25 Outpatient DAVID STOCKTON [id number] David 09:30:00 09:30:00 CARISA Seybol d 2022-10-04 2022-10-04 Outpatient DAVID STOCKTON [id number] David 00:00:00 00:00:00 CARISA Seybol d 2022-09-28 2022-09-28 Outpatient DAVID HERNANDEZ [id number] David 00:00:00 00:00:00 Seybol d 2022-09-28 2022-09-28 Outpatient DAVID STOCKTON [id number] David 00:00:00 00:00:00 CARISA Seybol d 2022-09-28 2022-09-28 Outpatient DAVID HERNANDEZ [id number] David 00:00:00 00:00:00 Seybol d 2022-09-28 2022-09-28 Outpatient DAVID STOCKTON [id number] David 00:00:00 00:00:00 CARISA Seybol d 2022-09-27 2022-09-27 Outpatient DAVID STOCKTON [id number] David 13:30:00 13:30:00 CARISA Seybol d 2022-09-26 2022-09-26 Outpatient CLAYTON MARRUFO [id number] David 00:00:00 00:00:00 Seybol d 2022-08-31 2022-08-31 Outpatient DAVID BELL [id number] David 00:00:00 00:00:00 JT ray Results This patient has no known results.
[2022-10-12] MEDS ORDERED: NA CHLORIDE 0.9% 50 ML ONE (12:21)
[2022-10-12] MEDS ORDERED: CEFTRIAXONE 1000 MG/VIAL ONE (12:21)
[2022-10-12 13:17] LABS: Absolute Lymphocytes (CBC) 0.9 K/uL (0.7-4.9); Hematocrit 39.7 % (39.6-49.0); Lymphocytes % 18.5 % (15.3-44.8); MCV 81.8 fL (80-100); MPV 9.1 fL (7.6-11.3); RBC Red Blood Cell Count 4.86 M/uL (4.33-5.43)
[2022-10-12 13:41] LABS: Protime INR 16.75
--- NOTE | 2022-10-12 13:51 | RAD REPORT ---
EXAM DESCRIPTION: Catarina Single View10/12/2022 1:38 pm CLINICAL HISTORY: sob COMPARISON: August 2022 FINDINGS: The lungs appear clear of acute infiltrate. The heart is moderately enlarged IMPRESSION: No acute abnormalities displayed
[2022-10-12] MEDS ORDERED: VITAMIN K (ADULT) 10 MG/ML ONE (14:05)
[2022-10-12 14:16] LABS: Albumin 3.1 g/dL (3.4-5.0); Bilirubin Direct 1.1 mg/dL (0-0.2); Bilirubin Total 1.9 mg/dL (0.2-1.0); Protein, Total 8.3 g/dL (6.4-8.2)
[2022-10-12 14:21] LABS: Magnesium 2.1 mg/dL (1.6-2.4); Potassium 3.8 mmol/L (3.5-5.1)
[2022-10-12 14:24] LABS: Troponin High Sensitivity 1167.5 pg/mL (<58.9)
[2022-10-12] MEDS ORDERED: NA CHLORIDE 0.9% 500 ML ONE (15:17)
--- NOTE | 2022-10-12 15:22 | RAD REPORT ---
EXAM DESCRIPTION: CT - Thorax Wo Con - 10/12/2022 2:43 pm CLINICAL HISTORY: SOB COMPARISON: Chest Abd Pelvis Wo Con dated 07/15/2022; Chest Single View dated 10/12/2022 TECHNIQUE: Axial thin cut CT images of the chest were obtained without IV contrast. Multiplanar refo rmats were generated and reviewed. All CT scans are performed using dose optimization technique as appropriate and may include automated exposure control or mA/KV adjustment according to patient size. FINDINGS: No mass or infiltrate in the lung parenchyma. Left subpleural costophrenic angle 11 millim eter nodule is stable to slightly decreased in size since the prior exam. No other suspicious nodules . No pleural thickening or pleural effusion. No pneumothorax. No abnormal mediastinal or hilar masses or lymphadenopathy seen. No significant aortic or pulmonary a rtery findings. Assessment is limited in the absence of IV contrast. The heart is stable in size, mildly enlarged. A small pericardial effusion is noted. No chest wall ma ss or abnormal axillary lymphadenopathy. Evaluation of the solid abdominal structures reveals no suspicious findings. IMPRESSION: Small pericardial effusion. Stable mild cardiomegaly. No other acute process within the chest.
--- NOTE | 2022-10-12 15:57 | EDPHYS ---
Physician Documentation [facility] Name: Natan Paulino Age: 62 yrs Sex: Male : 1960 Arrival Date: 10/12/2022 Time: 12:16 Bed 17 Private MD: ED Physician Brandon Masterson HPI: 10/12 12:31 This 62 yrs old Black Male presents to ER via Ambulatory with complaints of Abnormal snw Lab Results. 12:31 Onset: The symptoms/episode began/occurred acutely. Associated signs and symptoms: snw Pertinent positives: tachycardia and SOB. Modifying factors: the patient symptoms are aggravated by activity, lying down. It is unknown whether or not the patient has had similar symptoms in the past. saw Dr. De Guzman and was directed to ED. Taking coumadin. Seeradha Key NP. Historical: - Allergies: 12:21 PENICILLINS; hb - Home Meds: 12:21 Warfarin Oral [Active]; carvedilol Oral [Active]; Lasix 20 mg Oral tab 1 tab once daily hb [Active]; lisinopril 10 mg Oral tab 1 tab once daily [Active]; Methocarbamol Oral [Active]; metoprolol tartrate 25 mg Oral tab 1 tab 2 times per day [Active]; - PMHx: 12:21 CHF; Gout; Hypertension; osteoarthritis; Pancreatitis; Rheumatoid Arthritis; TIA; hb - Immunization history:: Adult Immunizations up to date. - Social history:: Smoking status: Patient denies any tobacco usage or history of. ROS: 12:30 Constitutional: Negative for fever, chills, and weight loss, Eyes: Negative for injury, snw pain, redness, and discharge, ENT: Negative for injury, pain, and discharge, Neck: Negative for injury, pain, and swelling, Cardiovascular: Negative for chest pain, palpitations, and edema. 12:30 Cardiovascular: Negative for chest pain, palpitations, and edema, tachycardia, denies edema Abdomen/GI: Negative for abdominal pain, nausea, vomiting, diarrhea, and constipation, denies GI bleeding Back: Negative for injury and pain, : Negative for injury, bleeding, discharge, and swelling, MS/Extremity: Negative for injury and deformity, Skin: Negative for injury, rash, and discoloration, Neuro: Negative for headache, weakness, numbness, tingling, and seizure. 12:30 Respiratory: Positive for dyspnea on exertion, orthopnea, shortness of breath, at rest. Exam: 12:29 Constitutional: This is a well developed, well nourished patient who is awake, alert, snw and in no acute distress. Head/Face: Normocephalic, atraumatic. Eyes: Pupils equal round and reactive to light, extra-ocular motions intact. Lids and lashes normal. Conjunctiva and sclera are non-icteric and not injected. Cornea within normal limits. Periorbital areas with no swelling, redness, or edema. ENT: Nares patent. No nasal discharge, no septal abnormalities noted. Tympanic membranes are normal and external auditory canals are clear. Oropharynx with no redness, swelling, or masses, exudates, or evidence of obstruction, uvula midline. Mucous membranes moist. Neck: Trachea midline, no thyromegaly or masses palpated, and no cervical lymphadenopathy. Supple, full range of motion without nuchal rigidity, or vertebral point tenderness. No Meningismus. Chest/axilla: Normal chest wall appearance and motion. Nontender with no deformity. No lesions are appreciated. 12:29 Respiratory: Lungs have equal breath sounds bilaterally, clear to auscultation and percussion. No rales, rhonchi or wheezes noted. No increased work of breathing, no retractions or nasal flaring. Abdomen/GI: Soft, non-tender, with normal bowel sounds. No distension or tympany. No guarding or rebound. No evidence of tenderness throughout. Back: No spinal tenderness. No costovertebral tenderness. Full range of motion. Skin: Warm, dry with normal turgor. Normal color with no rashes, no lesions, and no evidence of cellulitis. MS/ Extremity: Pulses equal, no cyanosis. Neurovascular intact. Full, normal range of motion. Neuro: Awake and alert, GCS 15, oriented to person, place, time, and situation. Cranial nerves II-XII grossly intact. Motor strength 5/5 in all extremities. Sensory grossly intact. Cerebellar exam normal. Normal gait. Psych: Awake, alert, with orientation to person, place and time. Behavior, mood, and affect are within normal limits. 12:29 Cardiovascular: Rate: tachycardic, Rhythm: irregular, Pulses: no pulse deficits are appreciated, Heart sounds: normal, Edema: is not appreciated. Vital Signs: 12:19 BP 124 / 93; Pulse 49; Resp 18; Temp 98.5; Pulse Ox 100% on R/A; Weight 95.25 kg; hb Height 6 ft. 3 in. (190.50 cm); Pain 0/10; 12:55 BP 128 / 101; Pulse 99; Resp 20; Pulse Ox 100% on R/A; Pain 0/10; mb9 14:05 BP 134 / 99; Pulse 91; Resp 16; Pulse Ox 99% on R/A; mb9 16:05 BP 136 / 97; Pulse 94; Resp 17; Pulse Ox 98% on R/A; mb9 16:45 BP 116 / 99; Pulse 88; Resp 14; Temp 97.1; Pulse Ox 100% on R/A; mb9 12:19 Body Mass Index 26.25 (95.25 kg, 190.50 cm) hb 16:45 Baseline VS for administration of FFP. See blood transfusion form for more information mb9 MDM: 12:24 Patient medically screened. snw 16:03 Differential diagnosis: CHF exacerbation, Chronic Obstructive Pulmonary Disease snw pulmonary edema, Unstable Angina. Antibiotic administration: Not indicated. Data interpreted: heater room helper: rhythm is normal sinus rhythm, LBBB, Pulse oximetry: on room air is 99 %. Interpretation: normal. Data reviewed: vital signs, nurses notes, EKG, radiologic studies, plain films, Inpatient record. Management of patient was discussed with the following: Hospitalist: Gely Portillo, will admit to Dr. Cerrato. Independent interpretation of the following test(s) in the Emergency Department. Historians other than the Patient: reviewed previous labs and admissions. Care significantly affected by the following chronic conditions: Hypertension, Congestive Heart Failure, Chronic Kidney Disease. Counseling: I had a detailed discussion with the patient and/or guardian regarding: the historical points, exam findings, and any diagnostic results supporting the discharge/admit diagnosis, the presence of at least one elevated blood pressure reading (>120/80) during this emergency department visit, lab results, radiology results, the need for further work-up and treatment in the hospital. ED course: to reverse coumadin toxicity ordered Vit K 5mg po. Not available in this facility. IV 2mg vitamin K given orally in orange juice as documented safe and effective in [email or web address] 29 January 2012, volume 125. 10/12 12:29 Order name: Basic Metabolic Panel; Complete Time: 14:27 snw 10/12 12:29 Order name: CBC with Diff; Complete Time: 13:22 snw 10/12 12:29 Order name: LFT's; Complete Time: 14:27 snw 10/12 12:29 Order name: Magnesium; Complete Time: 14:27 snw 10/12 12:29 Order name: NT PRO-BNP; Complete Time: 14:27 snw 10/12 12:29 Order name: Troponin HS; Complete Time: 14:27 snw 10/12 12:33 Order name: Ptt, Activated; Complete Time: 13:45 snw 10/12 13:19 Order name: Protime (+INR); Complete Time: 13:45 EDMS 10/12 14:28 Order name: TS snw 10/12 15:09 Order name: Bb Add On eb 10/12 15:11 Order name: SARS RAPID; Complete Time: 16:00 mb9 10/12 15:14 Order name: Fresh Frozen Plasma EDMS 10/12 12:29 Order name: XRAY Chest (1 view); Complete Time: 13:53 snw 10/12 14:30 Order name: CT Chest Wo Con; Complete Time: 15:23 snw 10/12 15:24 Order name: ABO/RH no charge; Complete Time: 15:25 EDMS 10/12 16:57 Order name: Urinalysis EDMS 10/12 16:57 Order name: Basic Metabolic Panel EDMS 10/12 16:57 Order name: Basic Metabolic Panel EDMS 10/12 16:57 Order name: Basic Metabolic Panel EDMS 10/12 16:57 Order name: Basic Metabolic Panel EDMS 10/12 16:57 Order name: CBC with Automated Diff EDMS 10/12 16:57 Order name: CBC with Automated Diff EDMS 10/12 16:57 Order name: CBC with Automated Diff EDMS 10/12 16:57 Order name: CBC with Automated Diff EDMS 10/12 16:57 Order name: Troponin High Sensitivity EDMS 10/12 16:57 Order name: Troponin High Sensitivity EDMS 10/12 16:57 Order name: Troponin High Sensitivity EDMS 10/12 12:29 Order name: EKG; Complete Time: 12:30 snw 10/12 12:29 Order name: Cardiac monitoring; Complete Time: 12:31 w 10/12 12:29 Order name: EKG - Nurse/Tech; Complete Time: 12:54 w 10/12 12:29 Order name: IV Saline Lock; Complete Time: 12:54 w 10/12 12:29 Order name: Labs collected and sent; Complete Time: 12:54 w 10/12 12:29 Order name: O2 Per Protocol; Complete Time: 12:w 10/12 12:29 Order name: O2 Sat Monitoring; Complete Time: 12:10/12 15:29 Order name: Diet 2 Gm Sodium; Complete Time: 15:29 w 10/12 16:57 Order name: Heart Healthy EDMS EC:39 Rate is 99 beats/min. Rhythm is regular. OH interval is normal. QRS interval is snw prolonged. Clinical impression: NSR w/ Non-specific ST/T Changes and LBBB. No change from previous ECG on August 13, 2022. Previous findings: LBBB. Administered Medications: 13:54 Not Given (not available): Phytonadione 5 mg PO once snw 14:04 Drug: Vitamin K1 (phytonadione) 2 mg {Note: administered as ordered.} Route: IM; Site: [facility] Other; 14:30 Follow up: Response: No adverse reaction mb9 Disposition Summary: 10/12/22 15:56 Hospitalization Ordered Hospitalization Status: Inpatient Admission snw Provider: Abram Cerrato Location: Telemetry/MedSurg (Inpatient) snw Condition: Stable snw Problem: an acute exacerbation snw Symptoms: are unchanged snw Bed/Room Type: Standard snw Room Assignment: 415(10/12/22 18:37) eb Diagnosis - Coumadin toxicity snw - Hypertensive chronic kidney disease with stage 1 through stage 4 chronic kidney snw disease, or unspecified chronic kidney disease - Cardiomegaly snw - Chronically elevated troponin snw Forms: - Medication Reconciliation Form snw - SBAR form snw Signatures: Dispatcher [employer] EDMS Aby Andrews FNP-C PRINT AND PATTERN DESIGNER-Csnw Lanie Bobo RN Osiris Dale Mary Beth RN RN mb9 Corrections: (The following items were deleted from the chart) 12:48 12:39 Rate is 99 beats/min. Rhythm is regular. OH interval is normal. QRS interval is snw prolonged. Clinical impression: NSR w/ Non-specific ST/T Changes and LBBB. snw 13:19 12:30 PROTIME (+INR)+COAG.LAB.BRZ ordered. EDMS EDMS 16:24 15:33 Frozen Plasma 24 ordered. EDMS EDMS 18:37 15:56 snw eb
--- NOTE | 2022-10-12 15:57 | ER ---
Nurse's Notes [facility] Name: Natan Paulino Age: 62 yrs Sex: Male : 1960 Arrival Date: 10/12/2022 Time: 12:16 Bed 17 Private MD: Diagnosis: Coumadin toxicity;Hypertensive chronic kidney disease with stage 1 through stage 4 chronic kidney disease, or unspecified chronic kidney disease;Cardiomegaly;Chronically elevated troponin Presentation: 10/12 12:19 Chief complaint: Sent by Dr. De Guzman for abnormal labs. Pt reports SOB x 2 days. Denies hb pain. Coronavirus screen: At this time, the client does not indicate any symptoms associated with coronavirus-19. Ebola Screen: No symptoms or risks identified at this time. Initial Sepsis Screen: Does the patient meet any 2 criteria? No. Patient's initial sepsis screen is negative. Does the patient have a suspected source of infection? No. Patient's initial sepsis screen is negative. Risk Assessment: Do you want to hurt yourself or someone else? Patient reports no desire to harm self or others. Onset of symptoms was October 12, 2022. 12:19 Method Of Arrival: Ambulatory hb 12:19 Acuity: NINO 3 hb Historical: - Allergies: 12:21 PENICILLINS; hb - Home Meds: 12:21 Warfarin Oral [Active]; carvedilol Oral [Active]; Lasix 20 mg Oral tab 1 tab once daily hb [Active]; lisinopril 10 mg Oral tab 1 tab once daily [Active]; Methocarbamol Oral [Active]; metoprolol tartrate 25 mg Oral tab 1 tab 2 times per day [Active]; - PMHx: 12:21 CHF; Gout; Hypertension; osteoarthritis; Pancreatitis; Rheumatoid Arthritis; TIA; hb - Immunization history:: Adult Immunizations up to date. - Social history:: Smoking status: Patient denies any tobacco usage or history of. Screenin:57 [facility] ED Fall Risk Assessment (Adult) History of falling in the last 3 months, mb9 including since admission No falls in past 3 months (0 pts) Confusion or Disorientation No (0 pts) Intoxicated or Sedated No (0 pts) Impaired Gait No (0 pts) Mobility Assist Device Used No (0 pt) Altered Elimination No (0 pt) Score/Fall Risk Level 0 - 2 = Low Risk Oriented to surroundings, Maintained a safe environment, Educated pt \T\ family on fall prevention, incl call for assistance when getting out of bed. Abuse screen: Denies threats or abuse. Nutritional screening: No deficits noted. Tuberculosis screening: No symptoms or risk factors identified. Assessment: 12:55 General: Appears in no apparent distress. General: Behavior is calm, cooperative, mb9 appropriate for age. Pain: Denies pain. Neuro: Serrano Agitation-Sedation Scale (RASS): 0 - Alert and Calm Level of Consciousness is awake, alert, obeys commands, Oriented to person, place, time, situation, Appropriate for age. Cardiovascular: Reports palpitations, shortness of breath, Heart tones S1 S2 present Capillary refill < 3 seconds is brisk Patient's skin is warm and dry. Rhythm is atrial fibrillation. Respiratory: Airway is patent Respiratory effort is even, unlabored, Respiratory pattern is regular, symmetrical, Breath sounds are clear bilaterally. GI: Abdomen is round non-distended, Bowel sounds present X 4 quads. : No signs and/or symptoms were reported regarding the genitourinary system. EENT: No signs and/or symptoms were reported regarding the EENT system. Derm: Skin is pink, warm \T\ dry. Musculoskeletal: Range of motion: intact in all extremities. 14:06 Reassessment: Patient and/or family updated on plan of care and expected duration. Pain mb9 level reassessed. Patient is alert, oriented x 3, equal unlabored respirations, skin warm/dry/pink. 14:38 Reassessment: pt taken to CT via wheelchair. mb9 15:30 Reassessment: Consent form signed by pt for FFP. mb9 17:02 Reassessment: No changes from previously documented assessment. Patient and/or family mb9 updated on plan of care and expected duration. Pain level reassessed. Patient is alert, oriented x 3, equal unlabored respirations, skin warm/dry/pink. 17:08 Reassessment: see [facility] for further charting. mb9 Vital Signs: 12:19 BP 124 / 93; Pulse 49; Resp 18; Temp 98.5; Pulse Ox 100% on R/A; Weight 95.25 kg; hb Height 6 ft. 3 in. (190.50 cm); Pain 0/10; 12:55 BP 128 / 101; Pulse 99; Resp 20; Pulse Ox 100% on R/A; Pain 0/10; mb9 14:05 BP 134 / 99; Pulse 91; Resp 16; Pulse Ox 99% on R/A; mb9 16:05 BP 136 / 97; Pulse 94; Resp 17; Pulse Ox 98% on R/A; mb9 16:45 BP 116 / 99; Pulse 88; Resp 14; Temp 97.1; Pulse Ox 100% on R/A; mb9 12:19 Body Mass Index 26.25 (95.25 kg, 190.50 cm) hb 16:45 Baseline VS for administration of FFP. See blood transfusion form for more information mb9 ED Course: 12:16 Patient arrived in ED. rg4 12:21 Triage completed. hb 12:21 Arm band placed on. hb 12:24 Aby Andrews FNP-C is PHCP. snw 12:24 Brandon Masterson MD is Attending Physician. snw 12:28 Mercy Tomlinson, RADHIKA is Primary Nurse. mb9 12:30 Placed in gown. Bed in low position. Call light in reach. Side rails up X 1. Client mb9 placed on continuous cardiac and pulse oximetry monitoring. NIBP monitoring applied. cardiac monitor technician on. 12:30 EKG done, by ED staff, reviewed by Ayb TOMLIN. mb9 12:59 No provider procedures requiring assistance completed. Missed attempt(s): 20 gauge in mb9 right forearm. 13:06 Initial lab(s) drawn, by in, sent to lab. Inserted saline lock: 22 gauge in left mm9 antecubital area, using aseptic technique. Blood collected. 13:07 Patient has correct armband on for positive identification. Side rails up X2. Warm mm9 blanket given. Pulse ox on. NIBP on. 13:08 Basic Metabolic Panel Sent. mm9 13:08 CBC with Diff Sent. mm9 13:08 LFT's Sent. mm9 13:08 Magnesium Sent. mm9 13:08 NT PRO-BNP Sent. mm9 13:08 Troponin HS Sent. mm9 13:40 XRAY Chest (1 view) In Process Unspecified. EDMS 14:38 TS Sent. mb9 14:44 CT Chest Wo Con In Process Unspecified. EDMS 15:44 SARS RAPID Sent. mb9 15:53 Abram Cerrato MD is Hospitalizing Provider. snw 20:29 Patient admitted, IV remains in place. mb9 Administered Medications: 13:54 Not Given (not available): Phytonadione 5 mg PO once snw 14:04 Drug: Vitamin K1 (phytonadione) 2 mg {Note: administered as ordered.} Route: IM; Site: [facility] Other; 14:30 Follow up: Response: No adverse reaction mb9 Medication: 12:57 VIS not applicable for this client. mb9 Outcome: 15:56 Decision to Hospitalize by Provider. snw 20:28 Admitted to Tele accompanied by tech, via wheelchair, room 415, with chart, Report mb9 called to RADHIKA Man 20:28 Condition: stable 20:28 Instructed on the need for admit. 20:42 Patient left the ED. mb9 Signatures: Dispatcher [employer] EDMS Aby Andrews, ALTERATIONS SEWER-C ALTERATIONS SEWER-Csnw Lanie Bobo RN RN hb Garcia, Rubi rg4 Mariana Emmanuel, Mercy Noyola RN RN mb9 Corrections: (The following items were deleted from the chart) 13:18 13:12 BP 95 / 38 Supine; Pulse 54bpm; mb9 mb9 13:18 13:15 BP 102 / 58 Sitting; Pulse 65bpm; mb9 mb9 13:18 13:17 BP 107 / 53 Standing; Pulse 68bpm; mb9 mb9 13:19 13:08 PROTIME (+INR)+COAG.LAB.BRZ drawn and sent. mm9 EDMS
[2022-10-12 15:59] LABS: SARS-CoV-2 Antigen Rapid Res Negative (Negative)
--- NOTE | 2022-10-12 16:48 | P.HP ---
Certification for Inpatient Patient admitted to: Inpatient With expected LOS: >2 Midnights Patient will require the following post-hospital care: None Practitioner: I am a practitioner with admitting privileges, knowledge of patient current condition, hospital course, and medical plan of care. Services: Services provided to patient in accordance with Admission requirements found in Title 42 Section 412.3 of the Code of Federal Regulations Patient History Date of Service: 10/12/22 Primary Care Provider: Shahid Reason for admission: Coumadin toxicity History of Present Illness: 62-year-old male with history of chronic systolic congestive heart failure, CKD 4, CAD, hyperlipidemia, GERD presents to the emergency department for abnormal labs. Patient states that he went to his roof mechanic office to get some blood work done. He was informed by his roof mechanic to go to the emergency room for abnormal lab results. In the emergency room patient was found to have INR of 16.7, PT 184. Last INR from previous admission last month, was 2.5. Patient is currently on Coumadin for a mural thrombus in his le ft ventricle. In the ER, patient received some vitamin K and 2 FFP's. Patient denies any episodes of bleeding. Patient does report some shortness of breath, and chronic cough. Patient was also found to be in renal failure with a history of chronic kidney disease, BUN 47, creatinine 3.65. Patient will be admitted under the care of Dr. Cerrato. Cardiology and nephrology will be consulted for further management. Allergies Penicillins Allergy (Verified 05/03/20 05:24) Hives/Rash Home Medications: Metoprolol Tartrate 1 tab PO BID 01/18/21 Amiodarone HCl [Pacerone] 1 tab PO DAILY 09/05/21 Pantoprazole [Protonix Tab*] 40 mg PO DAILY #30 tab 09/06/21 Aspirin [Aspirin EC 81 MG] 81 mg PO DAILY #30 tab 08/28/22 Folic Acid 1 mg PO DAILY #30 tab 08/28/22 Warfarin Sodium [Coumadin*] 5 mg PO DAILY 5 PM #30 tab 08/28/22 - Past Medical/Surgical History Diabetic: No -: Hypertension -: 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 Rossi -: CAD -: Mural thrombus-left ventricle on warfarin -: Cardiac stent placement July 2019 -: removal of L 5th digit Psychosocial/ Personal History: Patient currently lives at home with his and is on disability due to heart condition. - Family History Father -: Cancer, Liver disease Mother -: GI disease, Other (see notes) Notes: NA - Social History Smoking Status: Never smoker Alcohol use: Yes CD- Drugs: No Caffeine use: Yes Review of Systems 10-point ROS is otherwise unremarkable Respiratory: Cough, Shortness of Breath Physical Examination - Vital Signs Temperature: 98.5 F Blood Pressure: 116/99 Pulse: 91 Respirations: 23 Pulse Ox (%): 100 - Physical Exam General: Alert, In no apparent distress, Oriented x3 HEENT: Atraumatic, Normocephalic, PERRLA Neck: Supple, 2+ carotid pulse no bruit Respiratory: Clear to auscultation bilaterally, Normal air movement Cardiovascular: No edema, Normal pulses Capillary refill: <2 Seconds Gastrointestinal: Normal bowel sounds Musculoskeletal: No clubbing, No swelling, No contractures Integumentary: No rashes, No breakdown Neurological: Normal speech, Normal strength at 5/5 x4 extr, Normal tone Lymphatics: No axilla or inguinal lymphadenopathy - Studies Laboratory Data (last 24 hrs) 10/12/22 12:51: PT 184.3 H, INR 16.75 H*, APTT 78.1 H 10/12/22 12:51: PT Cancelled, INR Cancelled 10/12/22 12:51: WBC 4.70, Hgb 12.9 L, Hct 39.7, Plt Count 199 10/12/22 12:51: Sodium 135 L, Potassium 3.8, BUN 47 H, Creatinine 3.65 H, Glucose 131 H, Magnesium 2.1, Total Bilirubin 1.9 H, AST 47 H, ALT 24, Alkaline Phosphatase 160 H Assessment and Plan - Plan Assessment Coumadin toxicity Large left ventricular mural thrombus on warfarin Chronic systolic congestive heart failure BRIDGER on CKD 4 GERD Hypertension Elevated troponin Plan Coumadin toxicity Received vitamin K and 2 FFP's in ER Cardiology consulted, recommendations appreciated Large left ventricular mural thrombus on warfarin Hold Coumadin Chronic systolic congestive heart failure Continue Lasix Daily weights, with strict I/O's Cardiology consult in place BRIDGER on CKD 4 Nephrology consulted, recommendations appreciated Renal U/S from last admission was negative GERD Resume home medication Hypertension Resume home medication DVT PPX- SCDs Full code Discharge Plan: Home Plan to discharge in: Greater than 2 days - Advance Directives Does patient have a Living Will: Yes Does patient have a Durable POA for Healthcare: No - Code Status/Comfort Care Code Status Assessed: Yes (Full code) Critical Care: No Time Spent Managing Pts Care (In Minutes): 50
[2022-10-12] MEDS: FUROSEMIDE 20 MG/ 2ML VIAL IV SCH (17:00)
[2022-10-12] MEDS ORDERED: FUROSEMIDE 20 MG/ 2ML VIAL ONE (18:32)
[2022-10-12] MEDS ORDERED: NA CHLORIDE 0.9% 100 ML ONE (22:32)
[2022-10-13 00:54] VITALS: O2SAT 98
[2022-10-13 03:03] LABS: Specific Gravity 1.011 (1.005-1.030); Urine Bacteria <20 /HPF (<20); Urine Bilirubin NEGATIVE (Negative); Urine Blood Negative (Negative); Urine Clarity Clear (Clear); Urine Color Yellow (Yellow); Urine Glucose NEGATIVE (Negative); Urine Mucus Slight /HPF (None Seen); Urine Protein 1+ (Negative); Urine RBC <5 /HPF (None Seen); Urine Urobilinogen 3+ (Normal)
[2022-10-13] MEDS: PANTOPRAZOLE 40MG TABLET PO SCH (06:16)
[2022-10-13 06:52] LABS: Absolute Lymphocytes (CBC) 0.9 K/uL (0.7-4.9); Lymphocytes % 20.5 % (15.3-44.8); MCV 82.5 fL (80-100); MPV 8.8 fL (7.6-11.3); RBC Red Blood Cell Count 4.73 M/uL (4.33-5.43)
[2022-10-13 07:01] LABS: Protime INR 3.8
[2022-10-13 07:10] LABS: Albumin 3.1 g/dL (3.4-5.0); Bilirubin Direct 1.2 mg/dL (0-0.2); Bilirubin Total 2.6 mg/dL (0.2-1.0); Potassium 3.8 mmol/L (3.5-5.1); Protein, Total 7.7 g/dL (6.4-8.2)
[2022-10-13] MEDS: FUROSEMIDE 20 MG/ 2ML VIAL IV SCH ×2 (09:06→17:01)
--- NOTE | 2022-10-13 15:15 | P.PN ---
Subjective Date of Service: 10/13/22 Patient is clinically feeling better. Patient denies any new complaints. Patient's INR is decreased substantially. No active bleeding. Will discuss with cardiology regarding further treatment plan. We will repeat INR in the morning. Review of Systems 10-point ROS is otherwise unremarkable Physical Examination - Vital Signs Temperature: 96.7 F Blood Pressure: 116/87 Pulse: 89 Respirations: 16 Pulse Ox (%): 99 - Physical Exam General: Alert, In no apparent distress HEENT: Atraumatic, PERRLA, EOMI Neck: Supple, JVD not distended Respiratory: Clear to auscultation bilaterally, Normal air movement Cardiovascular: Regular rate/rhythm, Normal S1 S2 Gastrointestinal: Normal bowel sounds, No tenderness Musculoskeletal: No tenderness Integumentary: No rashes Neurological: Normal speech, Normal tone, Normal affect Lymphatics: No axilla or inguinal lymphadenopathy - Studies Medications List Reviewed: Yes Assessment & Plan - Problems (Diagnosis) (1) Warfarin-induced coagulopathy Current Visit: Yes Status: Acute (2) Coronary artery disease Current Visit: No Status: Acute (3) Mural thrombus of heart Current Visit: No Status: Acute (4) HTN (hypertension) Current Visit: No Status: Chronic Qualifiers: Hypertension type: primary hypertension Qualified Code(s): I10 - Essential (primary) hypertension (5) History of gout Current Visit: No Status: Chronic (6) Obesity (BMI 30.0-34.9) Current Visit: No Status: Chronic - Plan Hold anticoagulation and repeat INR level. Will discuss with cardiology regarding further plan of care. - Advance Directives Does patient have a Living Will: Yes Does patient have a Durable POA for Healthcare: No
--- NOTE | 2022-10-13 15:27 | P.CNS ---
Date of Consult: 10/13/22 Reason for Consult: Renal insufficiency Requesting Physician: Abram Cerrato Primary Care Provider: Shahid Chief Complaint: Coumadin toxicity History of Present Illness: 62-year-old male with history of chronic systolic congestive heart failure with worsened LVEF function noted end of last year in the setting of NSTEMI and pt then found to have large cardiac thrombus. He has a hx of CAD, HLD, chronic kidney disease with ARF last year and fluctuating levels since. Pt since Jul has been on Coumadin for a mural thrombus in his left ventricle. Pt was referred to the ER by his Hat Finisher for supra therapeutic INR, he denies any bleeding event, denies any other changes in medications. He does acknowledge worsening shortness of breath over the past few days. Allergies Penicillins Allergy (Verified 10/12/22 23:54) Hives/Rash Home Medications: Metoprolol Tartrate 1 tab PO BID 01/18/21 Amiodarone HCl [Pacerone] 1 tab PO DAILY 09/05/21 Pantoprazole [Protonix Tab*] 40 mg PO DAILY #30 tab 09/06/21 Folic Acid 1 mg PO DAILY #30 tab 08/28/22 Furosemide 80 mg PO BID 10/12/22 Warfarin Sodium [Coumadin*] 5.5 mg PO DAILY 5 PM 10/12/22 - Past Medical/Surgical History Diabetic: No -: Hypertension -: 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 Rossi -: CAD -: Mural thrombus-left ventricle on warfarin -: Cardiac stent placement July 2019 -: removal of L 5th digit Psychosocial/ Personal History: Patient currently lives at home with his and is on disability due to heart condition. - Family History Father Medical History: Cancer, Liver disease Mother Medical History: GI disease, Other (see notes) Notes: NA - Social History Smoking Status: Unknown if ever smoked Alcohol use: Yes CD- Drugs: No Caffeine use: Yes Review of Systems General: Weakness Eyes: Unremarkable ENT: Unremarkable Respiratory: SOB with Excertion Cardiovascular: As per HPI Gastrointestinal: Unremarkable Genitourinary: Unremarkable Musculoskeletal: Unremarkable Integumentary: Unremarkable Neurological: Unremarkable Lymphatics: Unremarkable Physical Examination Temp Pulse Resp BP Pulse Ox 96.7 F L 89 16 116/87 99 10/13/22 15:15 10/13/22 15:15 10/13/22 15:15 10/13/22 15:15 10/13/22 15:15 General: Alert, In no apparent distress, Oriented x3 HEENT: Atraumatic, Mucous membr. moist/pink Neck: Supple Respiratory: Normal air movement, Other (mildly diminished at bases) Cardiovascular: No edema, Normal S1 S2 Gastrointestinal: Soft and benign, Non-distended, No tenderness, No rebound Musculoskeletal: No swelling, No contractures, No erythema Integumentary: No rashes, No breakdown Neurological: Normal speech, Normal tone, Normal affect Conclusions/Impression: Impression: 1. Stage II BRIDGER (recent BRIDGER/ARF episodes without need for UNIT OPERATOR) on underlying CKD Stage IIIb/IV 2nd to CRS, other. UA on admission was not too impressive, no hematuria with the supratherapeutic INR. Cr level lower on repeat testing today, pt is producing urine. 2. Severe dilated cardiomyopathy, low EF state, pulm HTN 2nd to left sided heart disease, other. CT scan shows no overt pulm congestion but pt reports increased CARRION. BNP levels difficult to interpret with his chronic renal failure and othe. Entresto has been on hold since Jul due to low GFR state and lack of renal recovery back to prior baseline levels but will assess if pt can tolerate low dose if further renal improvement seen. 3. NSTEMI, troponin leak -management per cardiology, pt remains at higher risk for ROHAN, dialysis dependent renal failure currently. 4. Hx of large ventral thrombus noted. Management of anticoagulation per Cardiology/IM.
[2022-10-14 06:18] LABS: Absolute Lymphocytes (CBC) 0.9 K/uL (0.7-4.9); Hematocrit 37.3 % (39.6-49.0); Lymphocytes % 19.6 % (15.3-44.8); MPV 8.8 fL (7.6-11.3)
[2022-10-14 06:21] LABS: Protime INR 2.85
[2022-10-14 06:40] LABS: Albumin 2.8 g/dL (3.4-5.0); Bilirubin Total 2.6 mg/dL (0.2-1.0); Magnesium 2.3 mg/dL (1.6-2.4); Potassium 3.8 mmol/L (3.5-5.1); Protein, Total 7.3 g/dL (6.4-8.2)
[2022-10-14] MEDS: PANTOPRAZOLE 40MG TABLET PO SCH (07:40)
[2022-10-14] MEDS ORDERED: POTASSIUM CL SA 10 MEQ TAB PO ONE (09:00)
[2022-10-14] MEDS: FUROSEMIDE 20 MG/ 2ML VIAL IV SCH (09:11)
[2022-10-14] MEDS: METOPROLOL TAR 25 MG TAB PO SCH ×2 (12:13→20:34)
[2022-10-14] MEDS: FOLIC ACID 1 MG TABLET PO SCH (12:13)
[2022-10-14] MEDS: AMIODARONE HCL 200 MG TAB PO SCH (12:13)
[2022-10-14] MEDS: SACUBITRIL/VALSARTAN 24/26 MG TAB PO SCH ×2 (12:14→20:33)
[2022-10-14] MEDS ORDERED: WARFARIN SODIUM 4 MG TAB PO SCH (17:00)
[2022-10-14] MEDS: FUROSEMIDE 40 MG TABLET PO SCH (20:34)
[2022-10-14] MEDS ORDERED: MUCINEX DM 12HR.SR TAB PO PRN (20:39)
[2022-10-14] MEDS ORDERED: HOME MED 1 EA UNK (Furosemide [Furosemide] 80 MG Tablet) PO SCH (21:00)
[2022-10-14] MEDS ORDERED: FUROSEMIDE 40 MG TABLET PO SCH (21:00)
[2022-10-14] MEDS ORDERED: ONDANSETRON 4 MG/2 ML VIAL IV PRN (23:32)
[2022-10-15 04:16] VITALS: TEMP 97.1; BMI 25.6
[2022-10-15 05:22] LABS: Absolute Lymphocytes (CBC) 1.4 K/uL (0.7-4.9); Hematocrit 40.1 % (39.6-49.0); Lymphocytes % 23.9 % (15.3-44.8); MCV 82.4 fL (80-100); MPV 9.1 fL (7.6-11.3); RBC Red Blood Cell Count 4.87 M/uL (4.33-5.43)
[2022-10-15 05:35] LABS: Magnesium 2.2 mg/dL (1.6-2.4); Phosphorus 3.4 mg/dL (2.5-4.9); Potassium 4.4 mmol/L (3.5-5.1)
[2022-10-15 06:00] LABS: Platelet Estimate ADEQ; White Blood Cell Scan OK (OK)
[2022-10-15 06:01] LABS: Anisocytosis 1+; Blood Morphology Comment NOTED (NOT SEEN)
[2022-10-15 06:55] LABS: Protime INR 2.73
[2022-10-15] MEDS ORDERED: PANTOPRAZOLE 40MG TABLET PO SCH (09:00)
--- NOTE | 2022-10-15 10:03 | P.PN ---
Date of Service: 10/15/22 Vital Signs Temp Pulse Resp BP Pulse Ox 97.1 F 71 14 116/85 99 10/15/22 04:00 10/15/22 04:00 10/15/22 04:00 10/15/22 04:00 10/15/22 04:00 Medications Amiodarone HCl (Amiodarone Hcl 200 Mg Tab) 200 mg PO DAILY [facility] Last Admin: 10/14/22 12:13 Dose: 200 mg Folic Acid (Folic Acid 1 Mg Tablet) 1 mg PO DAILY [facility] Last Admin: 10/14/22 12:13 Dose: 1 mg Furosemide (Furosemide 40 Mg Tablet) 40 mg PO BID [facility] Last Admin: 10/14/22 20:34 Dose: 40 mg Guaifenesin/Dextromethorphan (Mucinex Dm 12hr.Sr Tab) 2 tab PO BID PRN PRN Reason: COUGH Last Admin: 10/14/22 21:04 Dose: 2 tab Metoprolol Tartrate (Metoprolol Tar 25 Mg Tab) 25 mg PO BID [facility] Last Admin: 10/14/22 20:34 Dose: 25 mg Ondansetron HCl (Ondansetron 4 Mg/2 Ml Vial) 4 mg IV Q6H PRN PRN Reason: NAUSEA / VOMITING Pantoprazole Sodium (Pantoprazole 40mg Tablet) 40 mg PO DAILY [facility]; Protocol Sodium Chloride (Flush Normal Saline 10 Ml) 10 ml IV BID [facility] Last Admin: 10/14/22 20:34 Dose: 10 ml Assessment/ Plan: Nephrology Feeling better No dyspnea No chest pain Good appetite No acute events overnight Vitals, medications, blood work and imaging reviewed in the chart NAD. NCAT. CTA. RRR. Abd soft. No C/C. LE Edema trace. AAO. Normal speech. Stage II BRIDGER likely CRS CKD IIIb/IV with proteinuria -No NSAIDs Hyponatremia -Continue Lasix Hypokalemia -Replete prn HTN with CKD/ CHF -Continue Metoprolol & Entresto Systolic CHF, chronic -Continue Lasix -Continue Entresto Hx of thrombus on warfarin -Follow up with cardiology
[2022-10-15] MEDS: METOPROLOL TAR 25 MG TAB PO SCH (10:14)
[2022-10-15] MEDS: SACUBITRIL/VALSARTAN 24/26 MG TAB PO SCH (10:14)
[2022-10-15] MEDS: FUROSEMIDE 40 MG TABLET PO SCH (10:15)
[2022-10-15] MEDS: FOLIC ACID 1 MG TABLET PO SCH (10:15)
[2022-10-15] MEDS: AMIODARONE HCL 200 MG TAB PO SCH (10:15)
--- NOTE | 2022-10-15 10:15 | P.PN ---
Subjective Date of Service: 10/15/22 Primary Care Provider: Shahid Chief Complaint: Coumadin toxicity No acute events overnight. INR now in therapuetic range. He denies any chest pain, palpitations, or shortness of breath. Transthoracic echocardiogram pending. Per Dr. De Guzman, restart anticoagulation and monitor for an additional day. Possible discharge tomorrow if doing well clinically. Review of Systems 10-point ROS is otherwise unremarkable Physical Examination - Vital Signs Temperature: 97.1 F Blood Pressure: 116/85 Pulse: 71 Respirations: 14 Pulse Ox (%): 99 - Physical Exam General: Alert, In no apparent distress, Oriented x3 HEENT: Atraumatic, EOMI, Sclerae nonicteric Neck: JVD not distended Respiratory: Clear to auscultation bilaterally, Normal air movement Cardiovascular: No edema, Regular rate/rhythm, Normal S1 S2, No gallops, No rubs, No murmurs, Edema (1+ BLE) Gastrointestinal: Normal bowel sounds, Soft and benign, Non-distended, No tenderness, No rebound, No guarding Musculoskeletal: No clubbing Integumentary: No rashes Neurological: Normal speech, Normal affect - Studies Medications List Reviewed: Yes Assessment And Plan - Plan # Warfarin-Induced Coagulopathy (Supratherapeutic INR) # Large Left Ventricle Thrombus on Warfarin - INR now therapeutic s/p vitamin K and 2 units FFP - Cardiology consulted and spoke with Dr. De Guzman - recommendations appreciated - Recommended starting warfarin 4 mg this evening and monitor INR tomorrow - If he remains therapuetic tomorrow, plan for discharge tomorrow - Transthoracic echocardiogram pending - Consulted nutrition for education on vitamin-K restricted diet - Will require close monitoring for INR checks as an outpatient # Non-ST Segment Elevation Myocardial Infarction # Coronary Artery Disease s/p PCI # Hypertension - Evaluation thus far: - EKG requested, trend - Serial troponin: 1167.5 -> 1128.2 -> 991.7 - Ordered transthoracic echocardiogram - Chest x-ray = "no acute abnormalities displayed" - CT chest = "small pericardial effusion. Stable mild cardiomegaly. No other acute process within the chest." - Management plan: - Consult Cardiology and spoke with Dr. De Guzman - recommendations appreciated - Continue metoprolol, sacubutril-valsartan - Started aspirin, atorvastatin # KDIGO Stage I Acute Kidney Injury on Chronic Kidney Disease Stage IV - Nephrology consulted - recommendations appreciated - Creatinine = 3.65 -> 3.00 -> 2.81 -> 2.82 (baseline creatinine ~2.7-2.8) - Urinalysis = 3+ urobilinogen, 1+ protein - Monitor creatinine and urine output - If worsening, obtain renal ultrasound - Renally dose medications # Chronic Compensated Systolic Congestive Heart Failure with Reduced Ejection Fraction (LVEF 20-25 %) # Moderate Pulmonary Hypertension # Severe Tricuspid Regurgitation - Consult Cardiology and spoke with Dr. De Guzman - recommendations appreciated - Ordered transthoracic echocardiogram - Continue furosemide, sacubutril-valsartan, metoprolol - Daily weights - Strict I/O - Cardiac diet, 2 L fluid restriction, 2 g Na restriction # Left Subpleural Nodule (11 mm) - Follow-up with PCP for further evaluation Kenney Graff M.D.
[2022-10-15] MEDS ORDERED: WARFARIN SODIUM 4 MG TAB PO SCH (17:00)
[2022-10-15 17:38] VITALS: BP 96/75
--- NOTE | 2022-10-15 18:38 | EKG ---
Test Date: 2022-10-15 Test Time: 11:17:10 Centerless Grinder Set Up Operator: MARQUEZ MEASUREMENT RESULTS: Intervals: Rate: 75 [place]: 232 QRSD: 136 QT: 438 QTc: 489 [place]: P: 74 [place]: 232 QRS: -55 T: 105 INTERPRETIVE STATEMENTS: Sinus rhythm with 1st degree AV block Left axis deviation Left bundle branch block Abnormal ECG Compared to ECG 10/12/2022 12:37:41 First degree AV block now present Left-axis deviation now present Electronically Signed On 10-15-22 18:36:51 CONCRETE PAVING MACHINE OPERATOR by Shamar De Guzman
--- NOTE | 2022-10-15 18:49 | EKG ---
Test Date: 2022-10-12 Test Time: 12:37:41 Secretary To Board Of Commissioners: MB MEASUREMENT RESULTS: Intervals: Rate: 99 RI: 196 QRSD: 152 QT: 388 QTc: 497 [place]: P: 80 RI: 196 QRS: -62 T: 110 INTERPRETIVE STATEMENTS: Normal sinus rhythm Left bundle branch block Abnormal ECG Compared to ECG 08/23/2022 22:22:32 Sinus tachycardia no longer present Atrial premature complex(es) no longer present Electronically Signed On 10-15-22 18:43:38 ACCOUNTS PAYABLE ANALYST by Shamar De Guzman
--- NOTE | 2022-10-15 20:37 | P.DS ---
Admission Date: 10/12/22 Discharge Date: 10/15/22 Primary Care Provider: Shahid Disposition: ROUTINE DISCHARGE Discharge Condition: GOOD Reason for Admission: Coumadin toxicity Consultations: CardiologyDr. De Guzman NephrologyDr. Rossi Procedures: Chest x-ray 10/12/2022 FINDINGS: The lungs appear clear of acute infiltrate. The heart is moderately enlarged IMPRESSION: No acute abnormalities displayed CT chest 10/12/2022 FINDINGS: No mass or infiltrate in the lung parenchyma. Left subpleural costophrenic angle 11 millimeter nodule is stable to slightly decreased in size since the prior exam. No other suspicious nodules. No pleural thickening or pleural effusion. No pneumothorax. No abnormal mediastinal or hilar masses or lymphadenopathy seen. No significant aortic or pulmonary artery findings. Assessment is limited in the absence of IV contrast. The heart is stable in size, mildly enlarged. A small pericardial effusion is noted. No chest wall mass or abnormal axillary lymphadenopathy. Evaluation of the solid abdominal structures reveals no suspicious findings. IMPRESSION: Small pericardial effusion. Stable mild cardiomegaly. No other acute process within the chest. Echocardiogram-see report for details, cardiology reports complete resolution of LV thrombus Brief History of Present Illness: HPI 62-year-old male with history of chronic systolic congestive heart failure, CKD 4, CAD, hyperlipidemia, GERD presents to the emergency department for abnormal labs. 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 He was informed by his sales team member to go to the emergency room for abnormal lab results. In the emergency room patient was found to have INR of 16.7, PT 184. Last INR from previous admission last month, was 2.5. Patient is currently on Coumadin for a mural thrombus in his left ventricle. In the ER, patient received some vitamin K and 2 FFP's. Patient denies any episodes of bleeding. Patient does report some shortness of breath, and chronic cough. Patient was also found to be in renal failure with a history of chronic kidney disease, BUN 47, creatinine 3.65. Patient will be admitted under the care of Dr. Cerrato. Cardiology and nephrology will be consulted for further management. Hospital Course: Patient was initially admitted for supratherapeutic INR, his INR significantly improved after vitamin K and FFP. He was on warfarin for a large left ventricle thrombus, a repeat echocardiogram was performed which revealed complete resolution of LV thrombus. He was seen by cardiology today who recommended he be switched to Eliquis 2.5 mg p.o. twice daily, continue other home medications and follow-up in 1 week with PCP, cardiology. He was also notified of his left subpleural nodule which was 11 mm and instructed to follow-up with his PCP as well. Hospitalist attending discussed case with cardiology and nephrology who have both cleared patient for discharge. Prescription for Eliquis sent to pharmacy. Discontinue warfarin. This was discussed with patient as well. Vital Signs/Physical Exam: Temp Pulse Resp BP Pulse Ox 97.1 F 72 18 96/75 99 10/15/22 16:00 10/15/22 16:00 10/15/22 16:00 10/15/22 16:00 10/15/22 16:00 Laboratory Data at Discharge: WBC 5.80 K/uL (4.3-10.9) 10/15/22 05:07 Hgb 12.9 g/dL (13.6-17.9) L D 10/15/22 05:07 Hct 40.1 % (39.6-49.0) 10/15/22 05:07 Plt Count 174 K/uL (152-406) 10/15/22 05:07 PT 30.0 SECONDS (9.5-12.5) H 10/15/22 06:43 INR 2.73 10/15/22 06:43 APTT 49.3 SECONDS (24.3-36.9) H 10/13/22 06:40 Sodium 135 mmol/L (136-145) L 10/15/22 05:07 Potassium 4.4 mmol/L (3.5-5.1) D 10/15/22 05:07 BUN 46 mg/dL (7-18) H 10/15/22 05:07 Creatinine 2.82 mg/dL (0.70-1.30) H 10/15/22 05:07 Glucose 119 mg/dL (74-106) H 10/15/22 05:07 Phosphorus 3.4 mg/dL (2.5-4.9) 10/15/22 05:07 Magnesium 2.2 mg/dL (1.6-2.4) 10/15/22 05:07 Total Bilirubin 2.6 mg/dL (0.2-1.0) H 10/14/22 05:58 AST 29 U/L (15-37) 10/14/22 05:58 ALT 17 U/L (16-61) 10/14/22 05:58 Alkaline Phosphatase 136 U/L (45-117) H 10/14/22 05:58 Home Medications: Metoprolol Tartrate 1 tab PO BID 01/18/21 Amiodarone HCl [Pacerone] 1 tab PO DAILY 09/05/21 Pantoprazole [Protonix Tab*] 40 mg PO DAILY #30 tab 09/06/21 Folic Acid 1 mg PO DAILY #30 tab 08/28/22 Furosemide 80 mg PO BID 10/12/22 Apixaban [Eliquis] 2.5 mg PO BID #60 tablet 10/15/22 Aspirin Chewable [Aspirin Chewable*] 81 mg PO DAILY tab.chew 10/15/22 Atorvastatin Calcium [Lipitor] 40 mg PO BEDTIME #30 tab 10/15/22 Sacubitril/Valsartan [Entresto 24 mg-26 mg Tablet] 0.5 tab PO BID tab 10/15/22 New Medications: Apixaban [Eliquis] 2.5 mg PO BID #60 tablet Atorvastatin Calcium [Lipitor] 40 mg PO BEDTIME #30 tab Followup: Leonardo Rossi DO [ACTIVE - CAN ADMIT] - 1 Week Anton Hayes DO [ACTIVE - CAN ADMIT] - 1 Week Shamar De Guzman MD [ACTIVE - CAN ADMIT] - 1 Week
[2022-10-15] MEDS ORDERED: ATORVASTATIN 40 MG TAB PO SCH (21:00)
--- NOTE | 2022-10-16 01:23 | CON ---
Date of Consultation: 10/15/2022 Reason For Consultation: Elevated INR. History Of Present Illness: 62-year-old male, history of significant systolic heart failure, and he has apical LV thrombus. He was on Coumadin. Apparently, his INR was significantly elevated at 16. He was sent to the emergency room, was admitted, had been monitored and his INR has improved and toda y it was 2.76, and patient has no bleeding. Past Medical History: Significant for congestive heart failure, systolic hypertension, LV thrombus, chronic kidney disease, advanced coronary artery disease, status post cardiac stent placement. Medications: Refer to reconciliation sheet for detailed list. Allergies: PENICILLIN. Family History: No premature coronary artery disease or cancer. Social History: Does not smoke or drink. Does not use any drugs. Review of Systems: All systems were reviewed, they were negative except as mentioned in HPI. Physical Examination: Vital Signs: Reviewed. Head and Neck: Pupils are equal, reactive to light. Intact eye movements. No JVD. No cervical lym phadenopathy. Neck: Supple. Thyroid is not enlarged. Lungs: Clear to auscultation bilaterally. No rhonchi, rales, or crackles. No accessory muscle use. Heart: Regular rate and rhythm. No extra sounds. Abdomen: Soft, nontender. Bowel sounds positive. No organomegaly. No masses or hernia. No rigidi ty or rebound. Extremities: No edema, clubbing, or cyanosis. Intact pulses. Skin: No rash. Neurologic: Alert and awake. No acute focal deficits appreciated. Investigations: INR on arrival was 16.7, now 2.7, hemoglobin is 12.9. Assessment And Recommendations: 1.Left ventricular apical thrombus: INR was very high and no bleeding and now INR is therapeutic. Restart Coumadin 4 mg daily and assure stability of INR prior to discharge. 2.Chronic systolic heart failure. Appears to be euvolemic. Continue current management and follow up on outpatient basis for further management of his chronic heart failure. 3.Chronic kidney disease and creatinine is at baseline. Continue to monitor. SR/MODL Voice ID: [id number] Report ID: [id number]
--- NOTE | 2022-10-16 07:05 | ECHO ---
HEIGHT: 6 ft 3 in WEIGHT: 205 lb 0 oz DATE OF STUDY: 10/15/[address]: Abram Cerrato MD 2-DIMENSIONAL: YES M.MODE: YES DOPPLER: YES COLOR FLOW: YES TDS: PORTABLE: YES DEFINITY: BUBBLE STUDY: DIAGNOSIS: LEFT VENTRICULAR THOMBUS EVALUATION CARDIAC HISTORY: CATHERIZATION: YES SURGERY: NO PROSTHETIC VALVE: NO PACEMAKER: NO MEASUREMENTS (cm) DIASTOLIC (NORMALS) SYSTOLIC (NORMALS) IVSd 1.0 (0.6-1.2) LA Diam 4.3 (1.9-4.0) LVEF 30% LVIDd 6.2 (3.5-5.7) LVIDs 5.3 (2.0-3.5) %FS 14% LVPWd 1.1 (0.6-1.2) Ao Diam 3.4 (2.0-3.7) 2 DIMENSIONAL ASSESSMENT: RIGHT ATRIUM: NORMAL LEFT ATRIUM: ENLARGED RIGHT VENTRICLE: NORMAL LEFT VENTRICLE: DILATED LEFT VENTRICLE, MILD TRICUSPID VALVE: MODERATE TRICUSPID REGURGITATION MITRAL VALVE: MILD MITRAL REGURGITATION PULMONIC VALVE: NORMAL AORTIC VALVE: NORMAL PERICARDIAL EFFUSION: NONE AORTIC ROOT: NORMAL LEFT VENTRICULAR WALL MOTION: MODERATE GLOBAL HYPOKINESIS DOPPLER/COLOR FLOW: SEE BELOW COMMENTS: 1. MODERATELY DEPRESSED LEFT VENTRICULAR EJECTION FRACTION 30-35% 2. MODERATE GLOBAL HYPOKINESIS 3. LEFT ATRIAL ENLARGEMENT 4. MILD MITRAL REGURGITATION 5. MODERATE TRICUSPID REGURGITATION 6. NO LEFT VENTRICULAR THOMBUS SEEN ON THIS EXAM TECHNOLOGIST: CHICHO SOOD
[2022-10-16] MEDS ORDERED: ASPIRIN 81 MG CHEWABLE TABLET PO SCH (09:00)
== END 2022-10-15 19:59 | disposition home or self-care (01) | DRG 682 ==
LOC: ER 12:12 → ERHOLD 16:50 → 4TH 20:29
PROVIDERS: ADMIT Hospitalist; ATTEND Internal Medicine
PROC: 30233P1 Transfusion of Nonautologous Frozen Red Cells into Peripheral Vein, Percutaneous Approach (ICD-10-PCS; principal; 2022-10-12)
DX: N17.9 Acute kidney failure, unspecified (principal); I21.4 Non-ST elevation (NSTEMI) myocardial infarction; I13.0 Hypertensive heart and chronic kidney disease with heart failure and stage 1 through stage 4 chronic kidney disease, or unspecified chronic kidney disease; I50.22 Chronic systolic (congestive) heart failure; I42.0 Dilated cardiomyopathy; E87.1 Hypo-osmolality and hyponatremia; N18.4 Chronic kidney disease, stage 4 (severe); M10.9 Gout, unspecified; M19.90 Unspecified osteoarthritis, unspecified site; M06.9 Rheumatoid arthritis, unspecified; E78.5 Hyperlipidemia, unspecified; K21.9 Gastro-esophageal reflux disease without esophagitis; I51.3 Intracardiac thrombosis, not elsewhere classified; E66.9 Obesity, unspecified; E87.6 Hypokalemia; I27.22 Pulmonary hypertension due to left heart disease; I07.1 Rheumatic tricuspid insufficiency; I25.10 Atherosclerotic heart disease of native coronary artery without angina pectoris; I25.2 Old myocardial infarction; T45.515A Adverse effect of anticoagulants, initial encounter; R77.8 Other specified abnormalities of plasma proteins; Z95.5 Presence of coronary angioplasty implant and graft; Z88.0 Allergy status to penicillin; Z79.01 Long term (current) use of anticoagulants; Z68.26 Body mass index [BMI] 26.0-26.9, adult; Z79.82 Long term (current) use of aspirin; Z86.73 Personal history of transient ischemic attack (TIA), and cerebral infarction without residual deficits; Z79.899 Other long term (current) drug therapy; Z20.822 Contact with and (suspected) exposure to COVID-19
CPT/HCPCS: 36415; 71045; 71250; 80048; 80053; 80076; 81001; 82140; 82607; 83615; 83735; 83880; 84100; 84484; 85025; 85610; 85730; 86850; 86900; 86901; 86927; 87811; 93005; 93306; 96372; 99285; J1940; J3430; J7040; P9017; P9059

== ENCOUNTER 2022-10-27 09:55 | Inpatient (IN) | payer OTHER ==
--- OUTSIDE RECORDS SUMMARY | 2022-10-27 09:58 | XMS REPORT | Continuity of Care Document ---
:[address] [facility] t Address [address] [facility] [address] [place] [id number] Care Team Providers Name Role Phone ACRISA STOCKTON Attending Clinician Unavailable CLAYTON MARRUFO Attending Clinician Unavailable JT BELL Attending Clinician Unavailable Payers Payer Name Policy Type Policy Number Effective Date Expiration Date S herman [employer] [place] [employer] 7 [id number] 2022 00:00:00 PLAN HMO Problems Condition Condition [...] Chronic Chronic Disease Active David systolic systolic 09-27 Seybol d congestive congestive 00:00: - heart heart 00 Externa failure failure l Chronic Chronic Disease Active David viral viral 09-27 Seybold hepatitis hepatitis 00:00: - 00 Externa l Hypercoagu Hypercoagu Disease Active Moises lanier lable lable 09-27 Seybold state due state due 00:00: - to heart to heart 00 Assignment Editor a valve valve l disorder disorder Malignant Malignant Disease Active Elan glover hypertensi hypertensi 09-27 Se ybold on with on with 00:00: - chronic chronic 00 Externa renal renal l disease disease stage IV stage IV Nonrheumat 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 Nephrolog y Dr. Rossi Immunodefi Immunodefi Disease Active K yolande ciency due ciency due 09-27 Se ybold to to 00:00: - conditions conditions 00 Ex terna classified classified l elsewhere elsewhere Mural Mural Disease Active David thrombus thrombus 09-27 Seybol d of left of left 00:00: - ventricle ventricle 00 Exte rna without SD without SD l Mixed Mixed Disease Active David hyperlipid hyperlipid 09-27 Se ybold emia emia 00:00: - 00 Externa l History of History of Disease Active K yolande CVA CVA 1- Seybold (cerebrova (cerebrova 00:00: [...] SDOH David ray - Alcohol Std Drinks Assignment Editor al History JODIOH David ray - Alcohol Binge External History SDOH David ray - Alcohol Frequency Externa l Alcohol Comment 2022-09-27 2022-09-27 Sober since David cronin - 00:00:00 00:00:July External Education 2022-09-27 2022-09-27 13 David Solis - 00:00:00 00:00:00 External Tobacco use and 2022-09-27 2022-09-27 Smokeless tobacco Ke lsey Seybold - exposure 00:00:00 00:00:00 non-user External Alcohol intake 2022-09-27 2022-09-27 Ex-drinker David Glover bold - 00:00:00 00:00:00 (finding) External Sex Ass[birth year] At [birth year] David wilson - 00:00:00 00:00:00 External Smoking Status Start Date Stop Date Source Never smoked tobacco David Ortiz old - External Medications Ordered Filled Start Stop Current Ordering Indication Dosage Frequency Signature Comments Components Source Medication Medication Date Date Medication? Clinician (SIG) Name Name Allopurinol Yes 300mg QD Take 300 K elsey 300 MG oral 2-09 mg by Seybold Tablet 13:10: mouth - 06 daily as Externa needed l Gabapentin 2022- Yes 100mg Take 100 Ke lsey 100 MG oral 2-09 mg by Seybold Capsule 13:10: mouth 2 - 06 times Externa daily l Warfarin Yes [id number] .5mg Take 0.5 David Sodium - 9102 tablets Seybold (COUMADIN) 00:00: (0.5 mg - 1 MG oral 00 total) by Exter na Tablet mouth l daily Warfarin 2022- Yes 5mg Take 5 mg Lynsey ey (COUMADIN) 09-19 by mouth Seybo ld 5 MG oral 00:00: daily - Tablet 00 Externa l Folic Acid 2022- Yes 1mg Take 1 mg Ke lsey 1 MG oral 11 by mouth Seybol d tablet 00:00: daily - 00 Externa l Atorvastati 2022- Yes 40mg Take 40 mg David n [...] oral 00 daily Externa Tablet l Pantoprazol 2022-0 Yes 40mg Take 40 mg David e Sodium 40 1-04 by mouth Seyb old MG oral 00:00: daily - Tablet 00 Externa Delayed l Response Atorvastati 2022- No 40mg Take 40 mg David n Calcium 08-22 by mouth Seybo ld 40 MG oral 00:00: 00:00 daily - Tablet 00 :00 Externa l Warfarin 2022-0 2022- No 4mg Take 4 mg Elan sey Sodium 4 MG 08-19 by mouth Sey bold oral Tablet 00:00: 00:00 daily - 00 :00 Externa l Immunizations Ordered Immunization Filled Immunization Date Status Commen Source Name Name Influenza, Seasonal, 2022-08-13 Completed [...] Systolic blood 2022-09-27 19:06:00 144 mm[Hg] David Solis - pressure External Diastolic blood 2022-09-27 19:06:00 86 mm[Hg] Louis Solis - pressure External Heart rate 2022-09-27 19:06:00 82 /min David cronin - External Body temperature 2022-09-27 19:06:00 36.33 Alesha Lynsey Solis - External Respiratory rate 2022-09-27 19:06:00 14 /min Lynsey Solis - External Body height 2022-09-27 19:06:00 190.5 cm David cronin - External Body weight 2022-09-27 19:06:00 94.348 kg David cronin - External BMI 2022-09-27 19:06:00 26.00 kg/m2 David cronin - External Oxygen saturation in 2022-09-27 19:06:00 99 /min David naimamarianne - Arterial blood by External Pulse oximetry Procedures This patient has no known procedures. Encounters Start End Encounter Admission Attending Care Care Encounter Source Date/Time Date/Time Type Type Clinicians Facility Department ID 2022-10-25 2022-10-25 Outpatient DAVID STOCKTON [id number] David 09:30:00 09:30:00 CARISA Seybol d 2022-10-24 2022-10-24 Outpatient DAVID HERNANDEZ [id number] David 00:00:00 00:00:00 Seybol d 2022-10-17 2022-10-17 Outpatient DAVID HERNANDEZ [id number] David 00:00:00 00:00:00 Seybol d 2022-10-04 2022-10-04 Outpatient DAVID STOCKTON [id number] David 00:00:00 00:00:00 CARISA Seybol d 2022-09-28 2022-09-28 Outpatient DAVID HERNANDEZ [id number] David 00:00:00 00:00:00 Seybol d 2022-09-28 2022-09-28 Outpatient DAVID STOCKTON [id number] David 00:00:00 00:00:00 CARISA Seybol d 2022-09-28 2022-09-28 Outpatient DAVID HERNANDEZ [id number] David 00:00:00 00:00:00 Seybol d 2022-09-28 2022-09-28 Outpatient DAVID STOCKTON [id number] David 00:00:00 00:00:00 CARISA Seybol d 2022-09-27 2022-09-27 Outpatient DAVID STOCKTON [id number] David 13:30:00 13:30:00 CARISA Seybol d 2022-09-26 2022-09-26 Outpatient CLAYTON MARRUFO [id number] David 00:00:00 00:00:00 Seybol d 2022-08-31 2022-08-31 Outpatient DAVID BELL [id number] David 00:00:00 00:00:00 JT ray Results This patient has no known results.
[2022-10-27] MEDS ORDERED: MORPHINE 4 MG/ML SYR ONE ×2 (10:24→13:22)
[2022-10-27] MEDS ORDERED: ONDANSETRON 4 MG/2 ML VIAL ONE (10:24)
[2022-10-27] MEDS ORDERED: NA CHLORIDE 0.9% 1,000 ML ONE (10:24)
[2022-10-27 10:29] LABS: Absolute Lymphocytes (CBC) 1.2 K/uL (0.7-4.9); Hematocrit 45.1 % (39.6-49.0); Lymphocytes % 18.5 % (15.3-44.8); MCV 82.2 fL (80-100); MPV 8.9 fL (7.6-11.3); RBC Red Blood Cell Count 5.48 M/uL (4.33-5.43)
[2022-10-27 10:44] LABS: Albumin 3.5 g/dL (3.4-5.0); Bilirubin Total 3.2 mg/dL (0.2-1.0); Potassium 3.9 mmol/L (3.5-5.1); Protein, Total 8.8 g/dL (6.4-8.2)
[2022-10-27 10:49] LABS: Troponin High Sensitivity 1202.8 pg/mL (<58.9)
[2022-10-27 11:31] LABS: Anisocytosis 1+; Blood Morphology Comment NOTED (NOT SEEN); Platelet Estimate ADEQ; White Blood Cell Scan OK (OK)
[2022-10-27] MEDS ORDERED: NITROGLYCERIN 0.4 MG/TAB SL ONE (11:31)
--- NOTE | 2022-10-27 11:59 | RAD REPORT ---
EXAM DESCRIPTION: CTAbdomen Pelvis Wo Contrast - 10/27/2022 11:34 am CLINICAL HISTORY: ABD PAIN COMPARISON: Abdomen Pelvis Wo Contrast dated 08/13/2022; Abdomen Pelvis Wo Contrast dated 022; Abdomen Pelvis Wo Contrast dated 09/03/2021; Abdomen Pelvis Wo Contrast dated 01/16/2021 TECHNIQUE: CT of the abdomen and pelvis was performed without contrast. All CT scans are performed using dose optimization technique as appropriate and may include automated exposure control or mA/KV adjustment according to patient size. FINDINGS: Lower chest: Cardiomegaly. Small pericardial effusion. Liver: Cirrhotic liver morphology. Biliary: Pericholecystic edema which may be related to chronic liver disease. Stomach: No significant focal abnormality. Duodenum: No significant focal abnormality. Pancreas: Mild peripancreatic edema. Spleen: No significant abnormality. Adrenal: No suspicious lesions. Kidney/ureter: No hydronephrosis. No renal calculi. Retroperitoneum: No retroperitoneal adenopathy. Vascular: No aneurysm. Bowel: No significant focal abnormality. Peritoneum: Mild to moderate ascites. Bladder: Grossly unremarkable. Reproductive: No adnexal masses. Bones: No acute fracture. Other: n/a IMPRESSION: 1. Mild peripancreatic edema. Recommend correlation with lipase to exclude acute pancrea titis. 2. Pericholecystic fluid and stranding. This could be secondary to underlying liver dysfunction. Sugg est correlating with LFTs to exclude cholecystitis. 3. Mild to moderate ascites.
--- NOTE | 2022-10-27 14:27 | RAD REPORT ---
EXAM DESCRIPTION: US - Abdomen Exam Limited - 10/27/2022 1:43 pm CLINICAL HISTORY: RUQ COMPARISON: Abdomen Pelvis Wo Contrast dated 10/27/2022 FINDINGS: The gallbladder demonstrates no gallstones. The gallbladder wall is thick The common bile duct is normal measuring 5 mm. The liver demonstrates no findings of intrahepatic biliary dilatation. Ascites is present. The portal vein is patent. IMPRESSION: Nonspecific gallbladder wall thickening which may be related to underlying liver disease . Negative for cholelithiasis or convincing evidence of acute cholecystitis.
[2022-10-27] MEDS ORDERED: LABETALOL 20 MG/4ML SYRINGE IV ONE (15:34)
[2022-10-27] MEDS ORDERED: ASPIRIN EC 325 MG TABLET PO ONE (15:34)
--- NOTE | 2022-10-27 16:44 | P.HP ---
Certification for Inpatient Patient admitted to: Inpatient With expected LOS: >2 Midnights Practitioner: I am a practitioner with admitting privileges, knowledge of patient current condition, hospital course, and medical plan of care. Services: Services provided to patient in accordance with Admission requirements found in Title 42 Section 412.3 of the Code of Federal Regulations Patient History Date of Service: 10/27/22 Reason for admission: Epigastric pain History of Present Illness: 62-year-old gentleman with a history of multiple hospitalizations in the past for chest pain, history of chronic systolic heart failure, recent echocardiogram reporting EF of 30 to 35%, history of cardiac thrombus with recent anticoagulation recently changed from Coumadin to Eliquis presented to the emergency department with a complaint of epigastric pain and chest pain of 1 day duration. Patient reports onset of epigastric pain yesterday, associated with nausea and vomiting, denies shortness of breath, denies fever, denies diarrhea. He states that he drank alcohol prior to the onset of his symptoms. No known aggravating or relieving factors. Patient also reports intermittent chest pain. Troponin in the ED is elevated to 1202, EKG demonstrated sinus tachycardia, occasional PVCs and left bundle branch block. Patient has a history of old left bundle branch block. CT abdomen and pelvis demonstrated peripancreatic fluid suggestive of acute pancreatitis, liver cirrhotic picture and pericholecystic fluid. His lipase level is elevated to 302. Abdominal ultrasound thickened gallbladder wall which could be edema, no gallstones. Dr. De Guzman informed the patient elevated troponin will recommend hospitalization so he can see the patient for consult. I suspect patient pain is primarily related to acute alcohol induced pancreatitis. Patient is hospitalized for further management. Allergies Penicillins Allergy (Verified 10/12/22 23:54) Hives/Rash Home Medications: Metoprolol Tartrate 1 tab PO BID 01/18/21 Amiodarone HCl [Pacerone] 1 tab PO DAILY 09/05/21 Pantoprazole [Protonix Tab*] 40 mg PO DAILY #30 tab 09/06/21 Folic Acid 1 mg PO DAILY #30 tab 08/28/22 Furosemide 80 mg PO BID 10/12/22 Apixaban [Eliquis] 2.5 mg PO BID #60 tablet 10/15/22 Aspirin Chewable [Aspirin Chewable*] 81 mg PO DAILY tab.chew 10/15/22 Atorvastatin Calcium [Lipitor] 40 mg PO BEDTIME #30 tab 10/15/22 Sacubitril/Valsartan [Entresto 24 mg-26 mg Tablet] 0.5 tab PO BID tab 10/15/22 - Past Medical/Surgical History Diabetic: No -: Hypertension -: 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 Rossi -: CAD -: Mural thrombus-left ventricle on warfarin -: Cardiac stent placement July 2019 -: removal of L 5th digit Psychosocial/ Personal History: Patient currently lives at home with his and is on disability due to heart condition. - Family History Father -: Cancer, Liver disease Mother -: GI disease, Other (see notes) Notes: NA - Social History Alcohol use: Yes CD- Drugs: No Caffeine use: Yes Review of Systems Other: Except as documented, all other systems reviewed and negative. Physical Examination - Physical Exam General: Alert, In no apparent distress, Oriented x3 HEENT: Atraumatic, PERRLA, Mucous membr. moist/pink, Sclerae nonicteric Neck: Supple, JVD not distended Respiratory: Clear to auscultation bilaterally, Normal air movement Cardiovascular: No edema, Regular rate/rhythm, Normal S1 S2, No murmurs Capillary refill: <2 Seconds Gastrointestinal: Normal bowel sounds, Soft and benign, Non-distended, Tenderness (Epigastrium) Musculoskeletal: No swelling, No erythema, No warmth Integumentary: No rashes, No cyanosis Neurological: Normal speech, Normal strength at 5/5 x4 extr, Cranial nerves 3-12 intact Lymphatics: No axilla or inguinal lymphadenopathy - Studies Laboratory Data (last 24 hrs) 10/27/22 10:17: Sodium 137, Potassium 3.9, BUN 37 H, Creatinine 2.81 H, Glucose 119 H, Total Bilirubin 3.2 H, AST 38 H, ALT 20, Alkaline Phosphatase 155 H, Lipase 302 H 10/27/22 10:17: WBC 6.30, Hgb 14.3, Hct 45.1, Plt Count 198 Assessment and Plan - Problems (Diagnosis) (1) NSTEMI (non-ST elevated myocardial infarction) Current Visit: Yes Status: Acute (2) Left bundle branch block Current Visit: Yes Status: Acute (3) Acute alcoholic pancreatitis Current Visit: No Status: Acute Qualifiers: Acute pancreatitis complication: no infection or necrosis Qualified Code(s): K85.20 - Alcohol induced acute pancreatitis without necrosis or infection (4) Coronary artery disease Current Visit: No Status: Acute (5) Mural thrombus of heart Current Visit: No Status: Acute (6) Chronic systolic heart failure Current Visit: No Status: Chronic (7) Chronic kidney disease, stage 3 Current Visit: No Status: Chronic Qualifiers: Chronic kidney disease stage 3 subtype: stage 3b (GFR 30-44) Qualified Code(s): N18.32 - Chronic kidney disease, stage 3b - Plan Admit patient to the medical floor. Patient's pain likely related to alcohol induced acute pancreatitis. No gallstones. Supportive measures-IV fluid at a slower rate to avoid volume overload or CHF decompensation Monitor lipase daily N.p.o. except medications Pain management as needed Continue to trend troponin. Continue home dose Eliquis and amiodarone Aspirin Cardiology consult. Most recent echocardiogram is only 2 weeks ago and shows EF of 30 to 35%. 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 Elevated LFT and hyperbilirubinemia likely related to liver cirrhosis. Monitor CMP. - Advance Directives Does patient have a Living Will: Yes Does patient have a Durable POA for Healthcare: No
[2022-10-27] MEDS ORDERED: NITROGLYCERIN 0.4 MG/TAB SL PRN (18:49)
[2022-10-27] MEDS ORDERED: ONDANSETRON 4 MG/2 ML VIAL IV PRN (18:49)
[2022-10-27] MEDS: MORPHINE 4 MG/ML SYR IV PRN (20:09)
[2022-10-27] MEDS ORDERED: MORPHINE 2 MG/ML SYR ONE (20:10)
[2022-10-27 21:08] VITALS: BMI 25.6
[2022-10-27 21:16] LABS: Troponin High Sensitivity 1119.7 pg/mL (<58.9)
[2022-10-27] MEDS: D5 0.9 NS 1,000 ML IV SCH (21:38)
[2022-10-27] MEDS: APIXABAN 2.5 MG TABLET PO SCH (22:06)
[2022-10-27] MEDS: SACUBITRIL/VALSARTAN 24/26 MG TAB PO SCH (22:06)
[2022-10-28] MEDS: MORPHINE 4 MG/ML SYR IV PRN ×2 (00:04→06:15)
[2022-10-28 04:14] LABS: Absolute Lymphocytes (CBC) 1.2 K/uL (0.7-4.9); Lymphocytes % 23.8 % (15.3-44.8); MCV 82.3 fL (80-100); MPV 9.2 fL (7.6-11.3); RBC Red Blood Cell Count 4.74 M/uL (4.33-5.43)
[2022-10-28 04:32] LABS: Magnesium 2.1 mg/dL (1.6-2.4); Phosphorus 4.9 mg/dL (2.5-4.9)
[2022-10-28] MEDS: AMIODARONE HCL 200 MG TAB PO SCH (09:25)
[2022-10-28] MEDS: PANTOPRAZOLE 40MG TABLET PO SCH (09:25)
[2022-10-28] MEDS: ASPIRIN EC 81 MG TAB PO SCH (09:25)
[2022-10-28] MEDS: SACUBITRIL/VALSARTAN 24/26 MG TAB PO SCH ×2 (09:25→21:15)
[2022-10-28] MEDS: APIXABAN 2.5 MG TABLET PO SCH ×2 (09:25→21:16)
--- NOTE | 2022-10-28 14:27 | P.PN ---
Subjective Date of Service: 10/28/22 Chief Complaint: Epigastric pain Patient denies any complaint today. Denies any chest pain. He states his epigastric pain has resolved. Physical Examination - Vital Signs Temperature: 96.6 F Blood Pressure: 130/89 Pulse: 86 Respirations: 16 Pulse Ox (%): 98 Assessment And Plan - Current Problems (Diagnosis) (1) NSTEMI (non-ST elevated myocardial infarction) Current Visit: Yes Status: Acute (2) Left bundle branch block Current Visit: Yes Status: Acute (3) Acute alcoholic pancreatitis Current Visit: No Status: Acute Qualifiers: Acute pancreatitis complication: no infection or necrosis Qualified Code(s): K85.20 - Alcohol induced acute pancreatitis without necrosis or infection (4) Coronary artery disease Current Visit: No Status: Acute (5) Mural thrombus of heart Current Visit: No Status: Acute (6) Chronic systolic heart failure Current Visit: No Status: Chronic (7) Chronic kidney disease, stage 3 Current Visit: No Status: Chronic Qualifiers: Chronic kidney disease stage 3 subtype: stage 3b (GFR 30-44) Qualified Code(s): N18.32 - Chronic kidney disease, stage 3b - Plan Physical Exam General: Alert, In no apparent distress, Oriented x3 HEENT: Mucous membr. moist/pink, Sclerae nonicteric Neck: Supple, JVD not distended Respiratory: Clear to auscultation bilaterally, Normal air movement Cardiovascular: No edema, Regular rate/rhythm, Normal S1 S2, No murmurs Gastrointestinal: Normal bowel sounds, Soft and benign, Non-distended, no tenderness. Musculoskeletal: No swelling, No erythema, No warmth Integumentary: No rashes, No cyanosis Neurological: Normal speech, no focal motor deficit. Plan: Patient's pain likely related to alcohol induced acute pancreatitis. No gallstones. Lipase level trended down. Patient is currently asymptomatic. Start clear liquid diet. Discontinue IV fluid given history of CHF. Monitor lipase daily Resume home medications. Pain management as needed Troponin is significantly elevated but trended flat. Patient has a history of chronic troponin elevation Continue home dose Eliquis and amiodarone Aspirin Cardiology to evaluate Most recent echocardiogram is only 2 weeks ago and shows EF of 30 to 35%. 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 Elevated LFT and hyperbilirubinemia likely related to liver cirrhosis. Monitor CMP.
[2022-10-28] MEDS: D5 0.9 NS 1,000 ML IV SCH (14:49)
[2022-10-28] MEDS ORDERED: ATORVASTATIN 40 MG TAB PO SCH (21:00)
[2022-10-28] MEDS: METOPROLOL TAR 25 MG TAB PO SCH (21:16)
[2022-10-29 03:25] LABS: Absolute Lymphocytes (CBC) 0.9 K/uL (0.7-4.9); Hematocrit 40.2 % (39.6-49.0); Lymphocytes % 16.7 % (15.3-44.8); MPV 9.2 fL (7.6-11.3); RBC Red Blood Cell Count 4.84 M/uL (4.33-5.43)
[2022-10-29 03:32] LABS: Potassium 4.3 mmol/L (3.5-5.1)
[2022-10-29] MEDS ORDERED: FUROSEMIDE 40 MG TABLET PO SCH (09:00)
[2022-10-29] MEDS: ASPIRIN EC 81 MG TAB PO SCH (09:03)
[2022-10-29] MEDS: APIXABAN 2.5 MG TABLET PO SCH (09:03)
[2022-10-29] MEDS: SACUBITRIL/VALSARTAN 24/26 MG TAB PO SCH (09:03)
[2022-10-29] MEDS: METOPROLOL TAR 25 MG TAB PO SCH (09:03)
[2022-10-29] MEDS: AMIODARONE HCL 200 MG TAB PO SCH (09:03)
[2022-10-29] MEDS: PANTOPRAZOLE 40MG TABLET PO SCH (09:03)
[2022-10-29 10:16] VITALS: O2SAT 97
[2022-10-29 12:02] VITALS: BP 113/80; TEMP 96.7
--- NOTE | 2022-10-29 13:08 | EKG ---
Test Date: 2022-10-27 Test Time: 10:04:05 [employer]: [facility] MEASUREMENT RESULTS: Intervals: Rate: 115 [place]: 168 QRSD: 130 QT: 358 QTc: 495 [place]: P: 75 [place]: 168 QRS: -61 T: 107 INTERPRETIVE STATEMENTS: Sinus tachycardia with occasional premature ventricular complexes Left axis deviation Left bundle branch block Abnormal ECG Compared to ECG 10/15/2022 11:17:10 Ventricular premature complex(es) now present Sinus rhythm no longer present First degree AV block no longer present Electronically Signed On 10-29-22 13:04:58 CDT by Shamar De Guzman
--- NOTE | 2022-10-29 14:54 | P.DS ---
Admission Date: 10/27/22 Discharge Date: 10/29/22 Discharge Condition: FAIR Reason for Admission: Epigastric pain - Problems (1) NSTEMI (non-ST elevated myocardial infarction) Current Visit: Yes Status: Acute (2) Left bundle branch block Current Visit: Yes Status: Acute (3) Acute alcoholic pancreatitis Current Visit: No Status: Acute Qualifiers: Acute pancreatitis complication: no infection or necrosis Qualified Code(s) : K85.20 - Alcohol induced acute pancreatitis without necrosis or infection (4) Coronary artery disease Current Visit: No Status: Acute (5) Mural thrombus of heart Current Visit: No Status: Acute (6) Chronic systolic heart failure Current Visit: No Status: Chronic (7) Chronic kidney disease, stage 3 Current Visit: No Status: Chronic Qualifiers: Chronic kidney disease stage 3 subtype: stage 3b (GFR 30-44) Qualified Code(s): N18.32 - Chronic kidney disease, stage 3b Brief History of Present Illness: 62-year-old gentleman with a history of multiple hospitalizations in the past for chest pain, history of chronic systolic heart failure, recent echocardiogram reporting EF of 30 to 35%, history of cardiac thrombus with recent anticoagulation recently changed from Coumadin to Eliquis presented to the emergency department with a complaint of epigastric pain and chest pain of 1 day duration. Patient reports onset of epigastric pain yesterday, associated with nausea and vomiting, denies shortness of breath, denies fever, denies diarrhea. He states that he drank alcohol prior to the onset of his symptoms. No known aggravating or relieving factors. Patient also reports intermittent chest pain. Troponin in the ED is elevated to 1202, EKG demonstrated sinus tachycardia, occasional PVCs and left bundle branch block. Patient has a history of old left bundle branch block. CT abdomen and pelvis demonstrated peripancreatic fluid suggestive of acute pancreatitis, liver cirrhotic picture and pericholecystic fluid. His lipase level is elevated to 302. Abdominal ultrasound thickened gallbladder wall which could be edema, no gallstones. Dr. De Guzman informed the patient elevated troponin who recommended hospitalization so he can see the patient for consult. I suspect patient pain is primarily related to acute alcohol induced pancreatitis. Patient was hospitalized for further management. Hospital Course: Patient admitted to the medical floor. Patient's pain likely related to alcohol induced acute pancreatitis. No gallstones. Lipase level trended down. He became asymptomatic He was treated with IV fluid. IV fluid later discontinued and lipase level trended down Lipase level normalized. Patient tolerated solid diet. Alcohol cessation advised. Continued home medications. Troponin was significantly elevated but trended flat. Patient has a history of chronic troponin elevation Continued home dose Eliquis and amiodarone Also placed on aspirin aspirin Most recent echocardiogram is only 2 weeks ago and shows EF of 30 to 35%. 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 Elevated LFT and hyperbilirubinemia likely related to liver cirrhosis. Patient seen by cardiology Dr. De Guzman and recommended no further intervention. Patient deemed clinically stable for discharge. Vital Signs/Physical Exam: Temp Pulse Resp BP Pulse Ox 96.7 F L 69 16 113/80 97 10/29/22 12:00 10/29/22 12:00 10/29/22 12:00 10/29/22 12:00 10/29/22 12:00 General: Alert, In no apparent distress, Oriented x3 HEENT: Mucous membr. moist/pink Neck: Supple, JVD not distended Respiratory: Clear to auscultation bilaterally, Normal air movement Cardiovascular: No edema, Regular rate/rhythm, Normal S1 S2 Gastrointestinal: Normal bowel sounds, Soft and benign, Non-distended Musculoskeletal: No swelling, No tenderness, Other (Multiple gouty tophi on bilateral upper extremities.) Integumentary: No rashes, No cyanosis Neurological: Normal strength at 5/5 x4 extr, Cranial nerves 3-12 intact Laboratory Data at Discharge: WBC 5.10 K/uL (4.3-10.9) 10/29/22 02:44 Hgb 12.8 g/dL (13.6-17.9) L 10/29/22 02:44 Hct 40.2 % (39.6-49.0) 10/29/22 02:44 Plt Count 177 K/uL (152-406) 10/29/22 02:44 Sodium 134 mmol/L (136-145) L 10/29/22 02:44 Potassium 4.3 mmol/L (3.5-5.1) 10/29/22 02:44 BUN 47 mg/dL (7-18) H 10/29/22 02:44 Creatinine 2.91 mg/dL (0.70-1.30) H 10/29/22 02:44 Glucose 89 mg/dL (74-106) 10/29/22 02:44 Phosphorus 4.9 mg/dL (2.5-4.9) 10/28/22 03:33 Magnesium 2.1 mg/dL (1.6-2.4) 10/28/22 03:33 Total Bilirubin 3.2 mg/dL (0.2-1.0) H 10/27/22 10:17 AST 38 U/L (15-37) H 10/27/22 10:17 ALT 20 U/L (16-61) 10/27/22 10:17 Alkaline Phosphatase 155 U/L (45-117) H 10/27/22 10:17 Triglycerides 76 mg/dL (<150) 10/27/22 20:20 Cholesterol 103 mg/dL (<200) 10/27/22 20:20 HDL Cholesterol 69 mg/dL (40-60) H 10/27/22 20:20 Cholesterol/HDL Ratio 1.49 10/27/22 20:20 Lipase 33 U/L (13-75) 10/29/22 02:44 Home Medications: Metoprolol Tartrate 1 tab PO BID 01/18/21 Amiodarone HCl [Pacerone] 1 tab PO DAILY 09/05/21 Pantoprazole [Protonix Tab*] 40 mg PO DAILY #30 tab 09/06/21 Furosemide 80 mg PO DAILY 10/12/22 Apixaban [Eliquis *] 2.5 mg PO BID #60 tablet 10/15/22 Atorvastatin Calcium [Lipitor] 40 mg PO BEDTIME #30 tab 10/15/22 Aspirin [Aspirin EC] 81 mg PO DAILY #30 tab 10/29/22 Sacubitril/Valsartan [Entresto 24 mg-26 mg Tablet] 0.5 tab PO BID #60 tab New Medications: Aspirin [Aspirin EC] 81 mg PO DAILY #30 tab Sacubitril/Valsartan [Entresto 24 mg-26 mg Tablet] 0.5 tab PO BID #60 tab Diet: AHA Activity: Ad pelon Followup: Anton Hayes DO [Primary Care Provider] - 1 Week Time spent managing pt's care (in minutes): 35
--- NOTE | 2022-10-29 15:57 | CON ---
Date of Consultation: 10/29/2022 Reason For Consultation: Elevated troponin. History Of Present Illness: A 62-year-old male with history of systolic heart failure, coronary magalys ry disease, chronic kidney disease, LV thrombosis, hypertension, presented to the emergency room with epigastric pain. The patient is known to have history of pancreatitis that is chronic with frequent exacerbation. He denies having any specific chest pain and we did a stress test on him recently wit hin the past 2 months that was negative. No exertional chest pain. Past Medical History: As outlined above in HPI. Medications: Refer to reconciliation sheet for detailed list. Allergies: PENICILLIN. Family History: No premature coronary artery disease or cancer. Social History: He does not smoke or drink. Does not use any drugs. Review of Systems: All systems reviewed and they were negative except what mentioned in HPI. Physical Examination: Vital Signs: Reviewed. Head and Neck: Pupils are equal, reactive to light. Intact eye movements. No JVD. No cervical lym phadenopathy. Neck is supple. Thyroid is not enlarged. Lungs: Clear to auscultation bilaterally. No rhonchi, wheezing, or crackles. No accessory muscle u se. Heart: Regular rate and rhythm. No extra sounds. Abdomen: Soft, nontender. Bowel sounds positive. No organomegaly. No masses or hernia. No rigidi ty or rebound. Extremities: No edema, clubbing, or cyanosis. Intact pulses. Skin: No rash. Neurologic: Alert, awake, oriented x3. No acute focal deficits appreciated. Investigations: BUN 47, creatinine 2.9, and troponin peaked at 1202 and trended down, and his lipase was elevated at 302 on admission. Assessment And Recommendations: 1.Epigastric pain, likely due to acute on chronic pancreatitis and this is resolved. The patient is pain free now. 2.Elevated troponin. The patient always has chronic troponin leak and he is known to have significa nt systolic heart failure. A stress test recently was negative from cardiovascular standpoint. As t he patient is asymptomatic, he can be released and I will follow him up as an outpatient. We will ob tain a stress test as an outpatient in the next few months. Meanwhile, continue aspirin and beta-blo cker. 3.Atrial fibrillation. He is appropriately treated with amiodarone and Eliquis. 4.LV thrombus. Continue Eliquis. SR/MODL Voice ID: [id number] Report ID: [id number]
--- NOTE | 2022-11-09 16:21 | ER ---
Nurse's Notes [facility] Name: Natan Paulino Age: 62 yrs Sex: Male : 1960 Arrival Date: 10/27/2022 Time: 09:58 Bed 17 Private MD: Anton Hayes Diagnosis: Subsequent non-ST elevation (NSTEMI) myocardial infarction;Other chronic pancreatitis Presentation: 10/27 10:07 Chief complaint: Patient states: chest pain x2 days, with RUQ pain. Coronavirus screen: kc6 Vaccine status: Patient reports receiving the 2nd dose of the covid vaccine. At this time, the client does not indicate any symptoms associated with coronavirus-19. Ebola Screen: No symptoms or risks identified at this time. Initial Sepsis Screen: Does the patient meet any 2 criteria? No. Patient's initial sepsis screen is negative. Does the patient have a suspected source of infection? No. Patient's initial sepsis screen is negative. Risk Assessment: Do you want to hurt yourself or someone else? Patient reports no desire to harm self or others. Onset of symptoms was October 27, 2022. 10:07 Method Of Arrival: Wheelchair kc6 10:07 Acuity: NINO 3 kc6 Triage Assessment: 10:08 General: Appears in no apparent distress. uncomfortable, Behavior is cooperative, kc6 appropriate for age, anxious. Pain: Complains of pain in chest and right upper quadrant Pain does not radiate. Pain currently is 8 out of 10 on a pain scale. Quality of pain is described as sharp, Pain began 2-3 days ago. Is intermittent, Alleviated by nothing. Also complains of no other associated symptoms. EENT: No signs and/or symptoms were reported regarding the EENT system. Neuro: Serrano Agitation-Sedation Scale (RASS): 0 - Alert and Calm Level of Consciousness is awake, alert, obeys commands, Oriented to person, place, time, situation, Appropriate for age. Cardiovascular: Reports nausea, palpitations, vomiting, Denies lightheadedness, shortness of breath, Heart tones S1 S2 present Capillary refill < 3 seconds Rhythm is sinus tachycardia. Respiratory: Airway is patent Trachea midline Respiratory effort is even, unlabored, Respiratory pattern is regular, symmetrical. GI: Reports upper abdominal pain, nausea, vomiting, Patient currently denies diarrhea. : No signs and/or symptoms were reported regarding the genitourinary system. Derm: No signs and/or symptoms reported regarding the dermatologic system. Skin is intact, Skin is pink, warm \T\ dry. Musculoskeletal: No signs and/or symptoms reported regarding the musculoskeletal system. Circulation, motion, and sensation intact. Capillary refill < 3 seconds, Range of motion: intact in all extremities. Historical: - Allergies: 10:08 PENICILLINS; kc6 - Home Meds: 14:39 carvedilol Oral [Active]; Lasix 20 mg Oral tab 1 tab once daily [Active]; lisinopril 10 kc6 mg Oral tab 1 tab once daily [Active]; Methocarbamol Oral [Active]; metoprolol tartrate 25 mg Oral tab 1 tab 2 times per day [Active]; Warfarin Oral [Active]; - PMHx: 10:08 CHF; Gout; Hypertension; osteoarthritis; Pancreatitis; Rheumatoid Arthritis; TIA; kc6 Myocardial infarction; stroke; - PSHx: 10:08 finger; heart stent; Stented artery; kc6 - Immunization history:: Client reports receiving the 2nd dose of the Covid vaccine, Flu vaccine is up to date. - Social history:: Smoking status: Patient denies any tobacco usage or history of. - Family history:: not pertinent. Screenin:25 [facility] ED Fall Risk Assessment (Adult) History of falling in the last 3 months, kc6 including since admission No falls in past 3 months (0 pts) Confusion or Disorientation No (0 pts) Intoxicated or Sedated No (0 pts) Impaired Gait No (0 pts) Mobility Assist Device Used No (0 pt) Altered Elimination No (0 pt) Score/Fall Risk Level 0 - 2 = Low Risk Oriented to surroundings, Maintained a safe environment, Educated pt \T\ family on fall prevention, incl call for assistance when getting out of bed, Assessed \T\ reinforced patient's understanding of fall precautions, Hourly rounding (assess needs \T\ fall precautionary measures) done. Abuse screen: Denies threats or abuse. Denies injuries from another. Nutritional screening: No deficits noted. Tuberculosis screening: No symptoms or risk factors identified. Assessment: 10:05 Reassessment: BP 156/126, HR 116. Dr. Mansfield notified. 6 10:20 Reassessment: please see triage assessment. Pain: Complains of pain in chest and right kc6 upper quadrant Pain does not radiate. Pain currently is 8 out of 10 on a pain scale. Quality of pain is described as sharp, Pain began 2-3 days ago. Is intermittent, Alleviated by nothing. Also complains of no other associated symptoms. 10:50 Reassessment: client stated his pain has decreased from an 8/10 to a 5/10. stated his [facility] BP normally runs in the 130's systolic. Dr. Mansfield notified of BP 150/122. no new orders received at this time. 11:50 Reassessment: Patient appears in no apparent distress at this time. No changes from [facility] previously documented assessment. Patient and/or family updated on plan of care and expected duration. Pain level reassessed. Patient is alert, oriented x 3, equal unlabored respirations, skin warm/dry/pink. 12:50 Reassessment: Patient appears in no apparent distress at this time. No changes from kc6 previously documented assessment. Patient and/or family updated on plan of care and expected duration. Pain level reassessed. Patient is alert, oriented x 3, equal unlabored respirations, skin warm/dry/pink. 13:50 Reassessment: Patient appears in no apparent distress at this time. No changes from kc6 previously documented assessment. Patient and/or family updated on plan of care and expected duration. Pain level reassessed. Patient is alert, oriented x 3, equal unlabored respirations, skin warm/dry/pink. 14:25 Reassessment: BP still elevated following sublingual nitroglycerin. BP 149/117. Dr. diony Mansfield notified. no new orders received at this time. 14:50 Reassessment: Patient appears in no apparent distress at this time. No changes from kc6 previously documented assessment. Patient and/or family updated on plan of care and expected duration. Pain level reassessed. Patient is alert, oriented x 3, equal unlabored respirations, skin warm/dry/pink. 15:50 Reassessment: Patient appears in no apparent distress at this time. No changes from kc6 previously documented assessment. Patient and/or family updated on plan of care and expected duration. Pain level reassessed. Patient is alert, oriented x 3, equal unlabored respirations, skin warm/dry/pink. 16:00 Reassessment: Dr. Boyle at bedside speaking with patient. kc6 16:50 Reassessment: Patient appears in no apparent distress at this time. No changes from kc6 previously documented assessment. Patient and/or family updated on plan of care and expected duration. Pain level reassessed. Patient is alert, oriented x 3, equal unlabored respirations, skin warm/dry/pink. 17:50 Reassessment: Patient appears in no apparent distress at this time. No changes from kc6 previously documented assessment. Patient and/or family updated on plan of care and expected duration. Pain level reassessed. Patient is alert, oriented x 3, equal unlabored respirations, skin warm/dry/pink. 18:50 Reassessment: Patient appears in no apparent distress at this time. No changes from kc6 previously documented assessment. Patient and/or family updated on plan of care and expected duration. Pain level reassessed. Patient is alert, oriented x 3, equal unlabored respirations, skin warm/dry/pink. 19:52 General: Appears comfortable, Behavior is calm, cooperative. Pain: Complains of pain in ha1 abdomen Pain does not radiate. Pain: Pain currently is 7 out of 10 on a pain scale. Neuro: Level of Consciousness is awake, alert, obeys commands, Oriented to person, place, time, situation. Respiratory: Airway is patent Respiratory effort is even, unlabored, Respiratory pattern is regular, symmetrical. GI: Abdomen is round non-distended, Bowel sounds present X 4 quads. Reports lower abdominal pain. Vital Signs: 10:05 BP 156 / 126; Pulse 116; Resp 24 S; Pulse Ox 100% on R/A; kc6 10:07 BP 149 / 121; Pulse 115; Resp 23 S; Temp 97.4(TE); Pulse Ox 100% ; Weight 95.25 kg (R); kc6 Height 6 ft. 3 in. (R); Pain 8/10; 10:12 BP 161 / 125; Pulse 109; Resp 22 S; Pulse Ox 100% on R/A; kc6 10:15 BP 164 / 140; Pulse 108; Resp 27 S; Pulse Ox 100% on R/A; kc6 10:30 BP 161 / 125; Pulse 105; Resp 19 S; Pulse Ox 100% on R/A; kc6 10:45 BP 160 / 119; Pulse 104; Resp 20 S; Pulse Ox 100% on R/A; kc6 10:50 BP 150 / 122; Pulse 103; Resp 24 S; Pulse Ox 100% on R/A; kc6 11:38 BP 153 / 122; Pulse 103; Resp 14 S; Pulse Ox 100% on R/A; Pain 4/10; kc6 11:44 BP 153 / 115; Pulse 100; Resp 20 S; Pulse Ox 100% on R/A; kc6 11:50 BP 146 / 104; Pulse 100; Resp 23 S; Pulse Ox 100% on R/A; kc6 12:43 BP 153 / 122; Pulse 101; Resp 18 S; Pulse Ox 100% on R/A; Pain 6/10; kc6 13:51 BP 156 / 115; Pulse 100; Resp 17 S; Pulse Ox 100% on R/A; kc6 14:25 BP 149 / 117; Pulse 98; Resp 19 S; Pulse Ox 100% on R/A; kc6 15:17 BP 148 / 120; Pulse 97; Resp 16 S; Pulse Ox 100% on R/A; kc6 15:32 BP 154 / 124; Pulse 104; Resp 22 S; Pulse Ox 100% on R/A; kc6 16:25 BP 123 / 105; Pulse 83; Resp 20 S; Pulse Ox 100% on R/A; kc6 16:45 BP 134 / 111; Pulse 83; Resp 20 S; Pulse Ox 100% on R/A; kc6 17:00 BP 134 / 112; Pulse 83; Resp 21 S; Pulse Ox 100% on R/A; kc6 17:15 BP 141 / 111; Pulse 84; Resp 19 S; Pulse Ox 100% on R/A; kc6 17:30 BP 139 / 114; Pulse 82; Resp 21 S; Pulse Ox 100% on R/A; kc6 17:45 BP 133 / 110; Pulse 84; Resp 20 S; Pulse Ox 100% on R/A; kc6 18:30 BP 142 / 113; Pulse 85; Resp 19 S; Pulse Ox 100% on R/A; kc6 19:59 BP 138 / 111; Pulse 87; Resp 17 S; Pulse Ox 100% on R/A; ha1 10:07 Body Mass Index 26.25 (95.25 kg, 190.5 cm) kc6 10:07 Pain Scale: Adult kc6 11:38 Pain Scale: Adult kc6 12:43 Pain Scale: Adult kc6 ED Course: 09:58 Patient arrived in ED. mr 09:58 Raffy Mansfield MD is Attending Physician. rt 09:58 Anton Hayes DO is Private Physician. mr 10:07 Sita Carrillo, RADHIKA is Primary Nurse. kc6 10:08 Triage completed. kc6 10:08 Arm band placed on. kc6 10:13 Patient has correct armband on for positive identification. Placed in gown. Bed in low kc6 position. Call light in reach. Side rails up X 1. Client placed on continuous cardiac and pulse oximetry monitoring. NIBP monitoring applied. environmental monitoring specialist on. 10:13 Patient maintains SpO2 saturation greater than 95% on room air. kc6 10:25 Inserted saline lock: 20 gauge in left antecubital area, using aseptic technique. kc6 ,using aseptic technique. inserted by RADHIKA Jenkins Blood collected. 10:26 Lipase Sent. kc6 10:26 Troponin High Sensitivity Sent. kc6 10:26 CMP Sent. kc6 10:26 CBC with Diff Sent. kc6 11:36 Abdomen In Process Unspecified. EDMS 13:45 US Abdomen Limited In Process Unspecified. EDMS 15:38 Thomas Boyle is Hospitalizing Provider. rt 18:35 SARS-COV-2 RT PCR Sent. kj1 21:09 No provider procedures requiring assistance completed. Patient admitted, IV remains in ha1 place. Administered Medications: 10:26 Drug: morphine IVP or IV 4 mg Route: IVP; Infused Over: 4 mins; Site: left antecubital; kc6 11:24 Follow up: Response: No adverse reaction; Pain is decreased; RASS: Alert and Calm (0) kc6 10:26 Drug: Ondansetron IVP 4 mg Route: IVP; Site: left antecubital; kc6 11:24 Follow up: Response: No adverse reaction; Nausea is decreased kc6 10:26 Drug: NS 0.9% IV 1000 ml Route: IV; Rate: 1 bolus; Site: left antecubital; kc6 11:23 Follow up: Response: No adverse reaction; IV Status: Completed infusion; IV Intake: kc6 1000ml 11:38 Drug: Nitroglycerin Sublingual 0.4 mg Route: Sublingual; kc6 11:44 Drug: Nitroglycerin Sublingual 0.4 mg Route: Sublingual; kc6 11:50 Drug: Nitroglycerin Sublingual 0.4 mg Route: Sublingual; kc6 11:52 Follow up: Response: No adverse reaction; Blood pressure is lowered kc6 13:38 Drug: morphine IVP or IV 4 mg Route: IVP; Infused Over: 4 mins; Site: left antecubital; kc6 15:40 Follow up: Response: No adverse reaction; Pain is decreased; RASS: Alert and Calm (0) kc6 15:35 Drug: Aspirin PO 325 mg Route: PO; kc6 16:26 Follow up: Response: No adverse reaction kc6 15:35 Drug: Labetalol IV 10 mg Route: IV; Rate: calculated rate; Site: left antecubital; kc6 15:38 Follow up: Response: No adverse reaction; IV Status: Completed infusion; IV Intake: [id number] Medication: 21:10 VIS not applicable for this client. ha1 Intake: 11:23 IV: 1000ml; Total: 1000ml. kc6 15:38 IV: 10ml; Total: 1010ml. kc6 Outcome: 15:38 Decision to Hospitalize by Provider. rt 21:02 Patient left the ED. vc1 21:09 Admitted to Med/surg accompanied by nurse, via wheelchair, room 218, with chart, Report ha1 called to RADHIKA Sampson 21:09 Condition: stable 21:09 Discharge instructions given to patient, Instructed on the need for admit, Demonstrated understanding of instructions. Signatures: Dispatcher [employer] [facility] Kandis kj1 Fay Frank RN RN vc1 Mariana Montana RN RN ha1 Sita Carrillo RN RN [id number] Raffy Mansfield MD MD rt Corrections: (The following items were deleted from the chart) 10:28 10:07 BP 149 / 121; Pulse 115bpm; Resp 23bpm; Spontaneous; Pulse Ox 100%; 95.25 kg kc6 Reported; Height 6 ft. 3 in. Reported; BMI: 26.2; Pain 8/10, Adult; kc6 11:43 10:05 Reassessment: Dr. Mansfield notified of patients BP 156/126, HR 116. kc6 kc6 19:17 17:50 Reassessment: please refer to [facility] for further charting kc6 kc6
--- NOTE | 2022-11-09 16:21 | EDPHYS ---
Physician Documentation [facility] Name: Natan Paulino Age: 62 yrs Sex: Male : 1960 Arrival Date: 10/27/2022 Time: 09:58 Bed 17 Private MD: Anton Hayes ED Physician Raffy Mansfield HPI: 10/27 11:25 This 62 yrs old Black Male presents to ER via Wheelchair with complaints of Chest Pain. rt 11:25 Patient presents to the ED with 2 days of an intermittent chest epigastric pain, rt worsening today. Patient has associated nausea and vomiting. Patient with multiple episodes of pancreatitis, as well as NSTEMI's. He states that this is consistent with NSTEMI, pancreatitis. Pain is aching nature, nonradiating, no other aggravating or alleviating factors.. Historical: - Allergies: 10:08 PENICILLINS; kc6 - Home Meds: 14:39 carvedilol Oral [Active]; Lasix 20 mg Oral tab 1 tab once daily [Active]; lisinopril 10 kc6 mg Oral tab 1 tab once daily [Active]; Methocarbamol Oral [Active]; metoprolol tartrate 25 mg Oral tab 1 tab 2 times per day [Active]; Warfarin Oral [Active]; - PMHx: 10:08 CHF; Gout; Hypertension; osteoarthritis; Pancreatitis; Rheumatoid Arthritis; TIA; kc6 Myocardial infarction; stroke; - PSHx: 10:08 finger; heart stent; Stented artery; kc6 - Immunization history:: Client reports receiving the 2nd dose of the Covid vaccine, Flu vaccine is up to date. - Social history:: Smoking status: Patient denies any tobacco usage or history of. - Family history:: not pertinent. ROS: 11:25 Constitutional: Negative for fever, chills, and weight loss, Respiratory: Negative for rt shortness of breath, cough, wheezing, and pleuritic chest pain, MS/Extremity: Negative for injury and deformity, Skin: Negative for injury, rash, and discoloration, Neuro: Negative for headache, weakness, numbness, tingling, and seizure, Psych: Negative for depression, anxiety, suicide ideation, homicidal ideation, and hallucinations. 11:25 Cardiovascular: Positive for chest pain, Negative for edema. 11:25 Abdomen/GI: Positive for abdominal pain, nausea and vomiting. Exam: 11:25 Constitutional: This is a well developed, well nourished patient who is awake, alert, rt and in no acute distress. Head/Face: Normocephalic, atraumatic. Chest/axilla: Normal chest wall appearance and motion. Nontender with no deformity. No lesions are appreciated. Cardiovascular: Regular rate and rhythm with a normal S1 and S2. No gallops, murmurs, or rubs. Normal PMI, no JVD. No pulse deficits. Respiratory: Lungs have equal breath sounds bilaterally, clear to auscultation and percussion. No rales, rhonchi or wheezes noted. No increased work of breathing, no retractions or nasal flaring. Skin: Warm, dry with normal turgor. Normal color with no rashes, no lesions, and no evidence of cellulitis. MS/ Extremity: Pulses equal, no cyanosis. Neurovascular intact. Full, normal range of motion. Neuro: Awake and alert, GCS 15, oriented to person, place, time, and situation. Cranial nerves II-XII grossly intact. Motor strength 5/5 in all extremities. Sensory grossly intact. Cerebellar exam normal. Normal gait. Psych: Awake, alert, with orientation to person, place and time. Behavior, mood, and affect are within normal limits. 11:25 ECG was reviewed by the Attending Physician. 11:25 Abdomen/GI: Tenderness to the epigastric region without guarding, rebound, distention. Vital Signs: 10:05 BP 156 / 126; Pulse 116; Resp 24 S; Pulse Ox 100% on R/A; kc6 10:07 BP 149 / 121; Pulse 115; Resp 23 S; Temp 97.4(TE); Pulse Ox 100% ; Weight 95.25 kg (R); kc6 Height 6 ft. 3 in. (R); Pain 8/10; 10:12 BP 161 / 125; Pulse 109; Resp 22 S; Pulse Ox 100% on R/A; kc6 10:15 BP 164 / 140; Pulse 108; Resp 27 S; Pulse Ox 100% on R/A; kc6 10:30 BP 161 / 125; Pulse 105; Resp 19 S; Pulse Ox 100% on R/A; kc6 10:45 BP 160 / 119; Pulse 104; Resp 20 S; Pulse Ox 100% on R/A; kc6 10:50 BP 150 / 122; Pulse 103; Resp 24 S; Pulse Ox 100% on R/A; kc6 11:38 BP 153 / 122; Pulse 103; Resp 14 S; Pulse Ox 100% on R/A; Pain 4/10; kc6 11:44 BP 153 / 115; Pulse 100; Resp 20 S; Pulse Ox 100% on R/A; kc6 11:50 BP 146 / 104; Pulse 100; Resp 23 S; Pulse Ox 100% on R/A; kc6 12:43 BP 153 / 122; Pulse 101; Resp 18 S; Pulse Ox 100% on R/A; Pain 6/10; kc6 13:51 BP 156 / 115; Pulse 100; Resp 17 S; Pulse Ox 100% on R/A; kc6 14:25 BP 149 / 117; Pulse 98; Resp 19 S; Pulse Ox 100% on R/A; kc6 15:17 BP 148 / 120; Pulse 97; Resp 16 S; Pulse Ox 100% on R/A; kc6 15:32 BP 154 / 124; Pulse 104; Resp 22 S; Pulse Ox 100% on R/A; kc6 16:25 BP 123 / 105; Pulse 83; Resp 20 S; Pulse Ox 100% on R/A; kc6 16:45 BP 134 / 111; Pulse 83; Resp 20 S; Pulse Ox 100% on R/A; kc6 17:00 BP 134 / 112; Pulse 83; Resp 21 S; Pulse Ox 100% on R/A; kc6 17:15 BP 141 / 111; Pulse 84; Resp 19 S; Pulse Ox 100% on R/A; kc6 17:30 BP 139 / 114; Pulse 82; Resp 21 S; Pulse Ox 100% on R/A; kc6 17:45 BP 133 / 110; Pulse 84; Resp 20 S; Pulse Ox 100% on R/A; kc6 18:30 BP 142 / 113; Pulse 85; Resp 19 S; Pulse Ox 100% on R/A; kc6 19:59 BP 138 / 111; Pulse 87; Resp 17 S; Pulse Ox 100% on R/A; ha1 10:07 Body Mass Index 26.25 (95.25 kg, 190.5 cm) kc6 10:07 Pain Scale: Adult kc6 11:38 Pain Scale: Adult kc6 12:43 Pain Scale: Adult kc6 MDM: 10:02 Patient medically screened. rt 18:15 Differential diagnosis: abnormal EKG, acute myocardial infarction, pneumonia, rt pneumothorax, pulmonary embolus. HEART Score: History: Moderately Suspicious (1), ECG: Non specific repolarization disturbance / LBTB / PM (1), Age: > 45 and < 65 years (1), Risk Factors: > or = 3 Risk factors for atherosclerotic disease (2), Troponin: > or = 3 x Normal Limit (2), Total Score = 7. The patient was given aspirin in the Emergency Department. Data reviewed: vital signs, nurses notes. Consideration of Admission/Observation Patient was admitted/placed on observation. I considered the following discharge prescriptions or medication management in the emergency department Medications were administered in the Emergency Department. See MAR. Independent interpretation of the following test(s) in the Emergency Department CT Scan: My interpretation is No bowel obstruction seen on my interpretation of the CT images.. Test considered but Not performed: CT: Low suspicion for PE, CT angiogram not indicated.. Care significantly affected by the following chronic conditions: Congestive Heart Failure. Response to treatment: the patient's symptoms have markedly improved after treatment. 10/27 10:14 Order name: CBC with Diff; Complete Time: 11:38 rt 10/27 10:14 Order name: CMP; Complete Time: 11:00 rt 10/27 10:14 Order name: Troponin High Sensitivity; Complete Time: 11:00 rt 10/27 10:14 Order name: Lipase; Complete Time: 11:00 rt 10/27 11:31 Order name: CBC Smear Scan; Complete Time: 11:38 EDMS 10/27 17:51 Order name: SARS-COV-2 RT PCR kj1 10/27 19:05 Order name: SARS-COV-2 RT PCR EDMS 10/27 10:58 Order name: Abdomen ; Complete Time: 12:02 EDMS 10/27 12:10 Order name: US Abdomen Limited; Complete Time: 14:54 rt 10/27 10:27 Order name: IV Saline Lock; Complete Time: 10:27 kc6 10/27 10:27 Order name: EKG - Nurse/Tech; Complete Time: : kc6 EC:25 Rate is 115 beats/min. Rhythm is regular, Sinus tachycardia with No ectopy, Left bundle rt branch block. Left axis deviation noted. QT interval is normal. No Q waves. Administered Medications: 10:26 Drug: morphine IVP or IV 4 mg Route: IVP; Infused Over: 4 mins; Site: left antecubital; kc6 11:24 Follow up: Response: No adverse reaction; Pain is decreased; RASS: Alert and Calm (0) kc6 10:26 Drug: Ondansetron IVP 4 mg Route: IVP; Site: left antecubital; kc6 11:24 Follow up: Response: No adverse reaction; Nausea is decreased kc6 10:26 Drug: NS 0.9% IV 1000 ml Route: IV; Rate: 1 bolus; Site: left antecubital; kc6 11:23 Follow up: Response: No adverse reaction; IV Status: Completed infusion; IV Intake: kc6 1000ml 11:38 Drug: Nitroglycerin Sublingual 0.4 mg Route: Sublingual; kc6 11:44 Drug: Nitroglycerin Sublingual 0.4 mg Route: Sublingual; kc6 11:50 Drug: Nitroglycerin Sublingual 0.4 mg Route: Sublingual; kc6 11:52 Follow up: Response: No adverse reaction; Blood pressure is lowered kc6 13:38 Drug: morphine IVP or IV 4 mg Route: IVP; Infused Over: 4 mins; Site: left antecubital; kc6 15:40 Follow up: Response: No adverse reaction; Pain is decreased; RASS: Alert and Calm (0) kc6 15:35 Drug: Aspirin PO 325 mg Route: PO; kc6 16:26 Follow up: Response: No adverse reaction kc6 15:35 Drug: Labetalol IV 10 mg Route: IV; Rate: calculated rate; Site: left antecubital; kc6 15:38 Follow up: Response: No adverse reaction; IV Status: Completed infusion; IV Intake: [id number] Disposition Summary: 10/27/22 15:38 Hospitalization Ordered Hospitalization Status: Observation rt Provider: Thomas Boyle rt Location: Telemetry/MedSur (observation) rt Condition: Stable rt Problem: new rt Symptoms: have improved rt Bed/Room Type: Standard rt Room Assignment: 205(10/27/22 19:31) vc1 Diagnosis - Subsequent non-ST elevation (NSTEMI) myocardial infarction rt - Other chronic pancreatitis rt Forms: - Medication Reconciliation Form rt - SBAR form rt Signatures: Dispatcher [employer] EDMS Fay Frank RN RN vc1 Sita Carrillo RN RN kc6 Raffy Mansfield MD MD rt Corrections: (The following items were deleted from the chart) 10:58 10:15 Abdomen Pelvis W Con+CT.RAD.BRZ ordered. EDMS EDMS 19:31 15:38 rt vc1
== END 2022-10-29 15:30 | disposition home or self-care (01) | DRG 438 ==
LOC: ER 09:55 → ERHOLD 16:13 → 2ND 19:53 → ERHOLD 20:26 → 2ND 20:27
PROVIDERS: ADMIT Internal Medicine; ATTEND Internal Medicine
DX: K85.20 Alcohol induced acute pancreatitis without necrosis or infection (principal); I21.4 Non-ST elevation (NSTEMI) myocardial infarction; I50.22 Chronic systolic (congestive) heart failure; I13.0 Hypertensive heart and chronic kidney disease with heart failure and stage 1 through stage 4 chronic kidney disease, or unspecified chronic kidney disease; N18.32 Chronic kidney disease, stage 3b; I49.3 Ventricular premature depolarization; I44.7 Left bundle-branch block, unspecified; I48.91 Unspecified atrial fibrillation; K70.30 Alcoholic cirrhosis of liver without ascites; E80.6 Other disorders of bilirubin metabolism; M10.9 Gout, unspecified; I25.10 Atherosclerotic heart disease of native coronary artery without angina pectoris; Z88.0 Allergy status to penicillin; Z79.01 Long term (current) use of anticoagulants; Z79.82 Long term (current) use of aspirin; Z79.899 Other long term (current) drug therapy; Z86.73 Personal history of transient ischemic attack (TIA), and cerebral infarction without residual deficits; Z20.822 Contact with and (suspected) exposure to COVID-19
CPT/HCPCS: 36415; 74176; 76705; 80048; 80053; 80061; 82947; 83690; 83735; 84100; 84484; 85025; 93005; 96361; 96374; 96375; 99285; J2270; J2405; J7030; J7042; U0003

== ENCOUNTER 2023-07-20 18:34 | Emergency (ER) | payer OTHER ==
--- OUTSIDE RECORDS SUMMARY | 2023-07-20 18:37 | XMS REPORT | Continuity of Care Document ---
:1960 Author Organization [facility] t Address [address] [facility] [address] [place] [address] Care Team Providers Name Role Phone CARISA STOCKTON Attending Clinician Unavailable LJ BURGOS Attending Clinician Unavailable LAB39 Attending Clinician Unavailable MARINE IBRAHIM Attending Clinician Unavailable JASMIN CRAVEN Attending Clinician Unavailable CLAYTON MARRUFO Attending Clinician Unavailable JT BELL Attending Clinician Unavailable Payers Payer Name Policy Type Policy Number Effective Date Expiration Date S herman MCGOWANNA PA SELECT 7 [id number] 2022 00:00:00 PLAN HMO Problems Condition Condition Condition Status Onset Resolution Last Treating Co mments Source Name Details Category Date Date Treatment Clinician Date Hepatic Hepatic Disease Active May cirrhosis cirrhosis 9-18 Seyb old (multi (multi 00:00: - HCC) HCC) 00 Externa l Chronic Chronic Disease Active Overview: Lynsey ey anticoagul anticoagul 09-27 Formattin Seybold ation ation 00:00: g of this - 00 note Externa might be l different from the original. on Coumadin Chronic Chronic Disease Active May gout due gout due 09-27 Seybol d to renal to renal 00:00: - impairment impairment 00 Ex terna of of l multiple multiple sites sites without without tophus tophus Chronic Chronic Disease Active May systolic systolic 09-27 Seybol d congestive congestive 00:00: - heart heart 00 Externa failure failure l (multi (multi HCC) HCC) Chronic Chronic Disease Active May viral viral 09-27 Seybold hepatitis hepatitis 00:00: - (multi (multi 00 Externa HCC) HCC) l Hypercoagu Hypercoagu Disease Active K elsenolan lable lable 09-27 Seybold state due state due 00:00: - to heart to heart 00 Literacy Consultant a valve valve l disorder disorder Malignant Malignant Disease Active Elan sey hypertensi hypertensi 2 Se ybold on with on with 00:00: - chronic chronic 00 Externa renal renal l disease disease stage IV stage IV (multi (multi HCC) HCC) Nonrheumat Nonrheumat Disease Active Moises lanier ic ic 09-27 Seybold tricuspid tricuspid 00:00: - valve valve 00 Externa regurgitat regurgitat l ion ion 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 Nephrolog y Dr. 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 09-27 Se ybold emia emia 00:00: - 00 Externa l History of History of Disease Active Moises lanier CVA CVA 1- Seybold (cerebrova (cerebrova 00:00: - scular scular 00 Externa accident) accident) l Allergies, Adverse Reactions, Alerts Allergy Allergy Status Severity Reaction(s) Onset Inactive Treating Comm ents Source Name Type Date Date Clinician Penicill Propensi Active May ins ty to 09-25 Seybold adverse 00:00: - reaction 00 Externa s l Social History Social Habit Start Date Stop Date Quantity Comments Source History MICHAELA ray Alcohol Std Drinks - Exte rnal History JODIOH May Gallardo ld Alcohol Binge - External History SDOH May Ortizo ld Alcohol Frequency - Exter nal Gender identity May wilson - External Sexual orientation May Solis - External Alcohol intake 2023 2023 Ex-drinker May Elizondo bold 00:00:00 00:00:00 (finding) - External History of Social 2023-05-10 2023-05-10 May Solis function 00:00:00 00:00:00 - External Alcohol Comment 2022-09-27 2022-09-27 Sober since May burgosbold 00:00:00 00:00:July - External Education - What is 2022-09-27 2022-09-27 High school Lynsey Solis the highest level 00:00:00 00:00:00 graduate - Exter nal of school you have completed or the highest degree you have received? Tobacco use and 2022-09-27 2022-09-27 Smokeless tobacco Maxx thakkar Seybold exposure 00:00:00 00:00:00 non-user - External Sex Ass[birth year] At [birth year] May wilson 00:00:00 00:00:00 - External Smoking Status Start Date Stop Date Source Never smoked tobacco May Ortiz old - External Medications Ordered Filled Start Stop Current Ordering Indication Dosage Frequency Signature Comments Components Source Medication Medication Date Date Medication? Clinician (SIG) Name Name Allopurinol 2022-08- No 300mg QD Take 1 Ke lsey 300 MG oral 09-03 tablet Seybo ld Tablet 08:09: 00:00 (300 mg - 37 :00 total) by Externa mouth l daily as needed. Furosemide 2022-08 Yes [id number] 80mg Take 1 K elsey 80 MG oral 1-16 tablet (80 Sey bold Tablet 00:00: mg total) - 00 by mouth 2 Externa times l daily. Atorvastati 2022-08 Yes [id number] 40mg Take 1 May n Calcium 1-16 tablet (40 Seyb old 40 MG oral 00:00: mg total) - Tablet 00 by mouth Externa nightly. l Pantoprazol 2022-08 Yes [id number] 40mg Take 1 May e Sodium 40 1-16 tablet (40 Se ybold MG oral 00:00: mg total) - Tablet 00 by mouth Externa Delayed daily. l Response Calcium 2022-1 2022- No TAKE 2 May Acetate, 0-03 11-16 CAPSULES Seybol d Phos 00:00: 00:00 BY MOUTH - Binder, 667 00 :00 IN THE Literacy Consultant a MG oral MORNING, 2 l Capsule CAPSULES AT NOON , AND 2 CAPSULES IN THE EVENING WITH MEALS Sofosbuvir- 2022-0 Yes 400mg Take 400 K elsey Velpatasvir 9-27 mg by Seybold (Epclusa) 00:00: mouth - 400-100 MG 00 daily. Externa oral Tablet l Allopurinol 2022-0 Yes 300mg QD Take 1 Elan sey 300 MG oral 9-18 tablet Seybol d Tablet 14:11: (300 mg - 27 total) by Externa mouth l daily as needed. Gabapentin 2022-0 2022- No 100mg Take 100 K elsey 100 MG oral 9-18 09-18 mg by Seybol d Capsule 14:11: 00:00 mouth 2 - 21 :00 times Externa daily l Eliquis 2.5 2022-0 2022- No 2.5mg Take 1 Ke lsey MG oral 2-27 09-18 tablet Seybold Tablet 00:00: 00:00 (2.5 mg - 00 :00 total) by Externa mouth 2 l times daily Allopurinol 2022-0 Yes 300mg QD Take 300 K elsey 300 MG oral 2-09 mg by Seybold Tablet 13:10: mouth - 06 daily as Externa needed l Gabapentin 2022-0 Yes 100mg Take 100 Ke lsey 100 MG oral 2-09 mg by Seybold Capsule 13:10: mouth 2 - 06 times Externa daily l Warfarin 3-0 Yes [id number] .5mg Take 0.5 May Sodium 2-09 9102 tablets Seybold (COUMADIN) 00:00: (0.5 mg - 1 MG oral 00 total) by Exter na Tablet mouth l daily Warfarin 2022-0 2022- No [id number] .5mg Take 0.5 May Sodium 2-09 09-18 9102 tablets Seybold (COUMADIN) 00:00: 00:00 (0.5 mg - 1 MG oral 00 :00 total) by Exter na Tablet mouth l daily Warfarin 3-0 Yes 5mg Take 5 mg Lynsey ey (COUMADIN) 09-19 by mouth Seybo ld 5 MG oral 00:00: daily - Tablet 00 Externa l Warfarin 2022-0 2022- No 5mg Take 1 May (COUMADIN) 09-19-18 tablet (5 Sey bold 5 MG oral 00:00: 00:00 mg total) - Tablet 00 :00 by mouth Externa daily l Folic Acid 2022-0 Yes 1mg Take 1 Kelse y 1 MG oral 1-11 tablet (1 Seybo ld tablet 00:00: mg total) - 00 by mouth Externa daily. l Folic Acid 2022-0 Yes 1mg Take 1 Kelse y 1 MG oral 1-11 tablet (1 Seybo ld tablet 00:00: mg total) - 00 by mouth Externa daily. l Folic Acid 2022-0 Yes 1mg Take 1 mg Ke lsey 1 MG oral -11 by mouth Seybol d tablet 00:00: daily - 00 Externa l Metoprolol 3-0 Yes 25mg Take 1 Kelse y Tartrate 1-04 tablet (25 Seybo ld (LOPRESSOR) 00:00: mg total) - 25 MG oral 00 by mouth 2 Ext sowmya Tablet times l daily. Pantoprazol 2022-0 Yes 40mg Take 1 Lynsey ey e Sodium 40 1-04 tablet (40 Se ybold MG oral 00:00: mg total) - Tablet 00 by mouth Externa Delayed daily. l Response Metoprolol 3-0 Yes 25mg Take 1 Kelse y Tartrate 1-04 tablet (25 Seybo ld (LOPRESSOR) 00:00: mg total) - 25 MG oral 00 by mouth 2 Ext sowmya Tablet times l daily. Atorvastati 3-0 Yes 40mg Take 40 mg May n Calcium 1-04 by mouth Seybol d 40 MG oral 00:00: daily - Tablet 00 Externa l Furosemide 2023-0 Yes 80mg Take 80 mg K elsey 80 MG oral 1-04 by mouth 2 Sey bold Tablet 00:00: times - 00 daily Externa l Metoprolol 3-0 Yes 25mg Take 25 mg K elsey Tartrate 1-04 by mouth 2 Seybo ld (LOPRESSOR) 00:00: times - 25 MG oral 00 daily Externa Tablet l Pantoprazol Yes 40mg Take 40 mg May e Sodium 40 -04 by mouth Seyb old MG oral 00:00: daily - Tablet 00 Externa Delayed l Response Atorvastati Yes 40mg Take 1 Lynsey ey n Calcium 1-04 tablet (40 Seyb old 40 MG oral 00:00: mg total) - Tablet 00 by mouth Externa daily. l Furosemide Yes 80mg Take 1 Kelse y 80 MG oral -04 tablet (80 Sey bold Tablet 00:00: mg total) - 00 by mouth 2 Externa times l daily. Atorvastati 2022- No 40mg Take 1 Elan sey n Calcium - 11-16 tablet (40 Sey bold 40 MG oral 00:00: 00:00 mg total) - Tablet 00 :00 by mouth Externa daily. l Furosemide 2022- No 80mg Take 1 Lynsey ey 80 MG oral 08-22-16 tablet (80 Se ybold Tablet 00:00: 00:00 mg total) - 00 :00 by mouth 2 Externa times l daily. Pantoprazol 2022- No 40mg Take 1 Elan sey e Sodium 40 -11 27-16 tablet (40 S eybold MG oral 00:00: 00:00 mg total) - Tablet 00 :00 by mouth Externa Delayed daily. l Response Atorvastati 2022- No 40mg Take 40 mg May n Calcium 08-22 by mouth Seybo ld 40 MG oral 00:00: 00:00 daily - Tablet 00 :00 Externa l Warfarin 2022- No 4mg Take 4 mg Elan sey Sodium 4 MG 08-19 by mouth Sey bold oral Tablet 00:00: 00:00 daily - 00 :00 Externa l Immunizations Ordered Immunization Filled Date Status Comments Sour ce Name Immunization Name Influenza, Seasonal, 2022-08-13 Completed Lynsey ey Seybold Injectable, 00:00:00 - External Preservative Free Influenza, Seasonal, 2022-08-13 Completed Lynsey ey Seybold [...] 00:00:00 - External Preservative Free Pneumococcal Vaccine, Unknown Completed Elan sey Seybold Polysaccharide - External Pneumococcal Vaccine, Unknown Completed Elan sey Seybold Polysaccharide - External Influenza, Seasonal, Unknown Completed Lynsey ey Seybold Injectable, - External Preservative Free Influenza, Seasonal, Unknown Completed Lynsey ey Seybold Injectable, - External Preservative Free Influenza, Seasonal, Unknown Completed Lynsey ey Seybold Injectable, - External Preservative Free Influenza, Seasonal, Unknown Completed Lynsey ey Seybold Injectable, - External Preservative Free Vital Signs Vital Name Observation Time Observation Value Comments Source Respiratory rate 2023 14:01:00 15 /min Lynsey ey Angelold - External Body height 2023 14:01:00 190.5 cm May Radha mehrdad - External Body weight 2023 14:01:00 92.987 kg May S mehrdad - External BMI 2023 14:01:00 25.62 kg/m2 May Radha mehrdad - External Systolic blood 2023 14:01:00 136 mm[Hg] May Seybold - pressure External Diastolic blood 2023 14:01:00 90 mm[Hg] Kelse y Seybold - pressure External Heart rate 2023 14:01:00 77 /min May S eybold - External Body temperature 2023 14:01:00 35.61 Alesha Lynsey ey Seybold - External Systolic blood 2023-05-06 19:09:00 137 mm[Hg] May Seybold - pressure External Diastolic blood 2023-05-06 19:09:00 87 mm[Hg] Elanse y Seybold - pressure External Heart rate 2023-05-06 19:09:00 70 /min May S eybold - External Body temperature 2023-05-06 19:09:00 36.67 Alesha Lynsey ey Seybold - External Respiratory rate 2023-05-06 19:09:00 16 /min Lynsey ey Seybold - External Body height 2023-05-06 19:09:00 190.5 cm May S eybold - External Body weight 2023-05-06 19:09:00 87.544 kg May Isbell eybold - External BMI 2023-05-06 19:09:00 24.12 kg/m2 May S eybold - External Systolic blood 2022-09-27 19:06:00 144 mm[Hg] May Seybold - pressure External Diastolic blood 2022-09-27 19:06:00 86 mm[Hg] Elanse y Seybold - pressure External Heart rate 2022-09-27 19:06:00 82 /min May S eybold - External Body temperature 2022-09-27 19:06:00 36.33 Alesha Lynsey ey Seybold - External Respiratory rate 2022-09-27 19:06:00 14 /min Lynsey ey Seybold - External Body height 2022-09-27 19:06:00 190.5 cm May Isbell eybold - External Body weight 2022-09-27 19:06:00 94.348 kg May S eybold - External BMI 2022-09-27 19:06:00 26.00 kg/m2 May Isbell eybold - External Oxygen saturation in 2022-09-27 19:06:00 99 /min May Solis - Arterial blood by External Pulse oximetry Procedures This patient has no known procedures. Encounters Start End Encounter Admission Attending Care Care Encounter Source Date/Time Date/Time Type Type Clinicians Facility Department ID 2023-08-02 2023-08-02 Outpatient MAY STOCKTON [id number] May 09:15:00 09:15:00 CARISA Seybol d 2023-07-15 2023-07-15 Outpatient MAY STOCKTON [id number] May 00:00:00 00:00:00 CARISA Seybol d 2023 2023 Outpatient MAY STOCKTON [id number] May 08:00:00 08:00:00 CARISA Seybol d 2023-05-15 2023-05-15 Outpatient MAY BURGOS [id number] May 00:00:00 00:00:00 LJ Seybol d 2023-05-06 2023-05-06 Outpatient LAB39 MAY HERNANDEZ [id number] May 15:15:00 15:15:00 Seybol d 2023-05-06 2023-05-06 Outpatient MAY BURGOS [id number] May 14:45:00 14:45:00 LJ Seybol d 2023-05-02 2023-05-02 Outpatient MAY STOCKTON [id number] May 00:00:00 00:00:00 CARISA Seybol d 2023-03-19 2023-03-19 Outpatient MAY HERNANDEZ [id number] May 00:00:00 00:00:00 Seybol d 2023-03-07 2023-03-07 Outpatient MAY HERNANDEZ [id number] May 00:00:00 00:00:00 Seybol d 2023-03-07 2023-03-07 Outpatient MAY STOCKTON [id number] May 00:00:00 00:00:00 CARISA Seybol d 2023-03-06 2023-03-06 Outpatient MAY STOCKTON [id number] May 14:00:00 14:00:00 CARISA Seybol d 2023-03-05 2023-03-05 Outpatient PREMAY MELENDEZ [id number] May 00:00:00 00:00:00 CARISA Seybol d 2023-03-02 2023-03-02 Outpatient PATRICEMAY [id number] May 00:00:00 00:00:00 MARINE Seyb old 2023-02-05 2023-02-05 Outpatient PREMAY MELENDEZ [id number] May 00:00:00 00:00:00 CARISA Seybol d 2022-12-24 2022-12-24 Outpatient PREZAMAY Isbell [id number] May 11:30:00 11:30:00 CARISA Seybol d 2022-12-14 2022-12-14 Outpatient PREZAMAY Isbell [id number] May 00:00:00 00:00:00 CARISA Seybol d 2022-11-29 2022-11-29 Outpatient MAY HERNANDEZ [id number] May 00:00:00 00:00:00 Seybol d 2022-11-28 2022-11-28 Outpatient MERISSAMAY [id number] May 00:00:00 00:00:00 JASMIN Seybol d 2022-11-01 2022-11-01 Outpatient MAY HENRANDEZ [id number] May 00:00:00 00:00:00 Seybol d 2022-10-29 2022-10-29 Outpatient PREMAY MELENDEZ [id number] May 00:00:00 00:00:00 CARISA Seybol d 2022-10-25 2022-10-25 Outpatient PREMAY MELENDEZ [id number] May 09:30:00 09:30:00 CARISA Seybol d 2022-10-24 2022-10-24 Outpatient MAY HERNANDEZ [id number] May 00:00:00 00:00:00 Seybol d 2022-10-17 2022-10-17 Outpatient MAY HERNANDEZ [id number] May 00:00:00 00:00:00 Seybol d 2022-10-04 2022-10-04 Outpatient MAY STOCKTON [id number] May 00:00:00 00:00:00 CARISA Seybol d 2022-09-28 2022-09-28 Outpatient MAY HERNANDEZ [id number] May 00:00:00 00:00:00 Seybol d 2022-09-28 2022-09-28 Outpatient MAY STOCKTON [id number] May 00:00:00 00:00:00 CARISA Seybol d 2022-09-28 2022-09-28 Outpatient MAY HERNANDEZ [id number] May 00:00:00 00:00:00 Seybol d 2022-09-28 2022-09-28 Outpatient MAY STOCKTON [id number] May 00:00:00 00:00:00 CARISA Seybol d 2022-09-27 2022-09-27 Outpatient MAY STOCKTON [id number] May 13:30:00 13:30:00 CARISA Seybol d 2022-09-26 2022-09-26 Outpatient CLAYTON MARRUFO [id number] May 00:00:00 00:00:00 Seybol d 2022-08-31 2022-08-31 Outpatient MAY BELL [id number] May 00:00:00 00:00:00 JT ray Results This patient has no known results. History and Physical Notes Date/Time Note Provider Source 2023-05-06 14:21:30 [id number]:21:30Formatting of Elena this note is different from the Clinic original.HPIREFERRING PHYSICIAN:Sherley Paulino is a 62 year old male who presents for hcvWas in the hospital a few months ago-was told he cirrhosisTook 14 liters of fluid outStarted diureticsPast hx of etoh- last drink 2 weeks agoFeeling good currentlyNo edemaNo abd swellingNo bleeding or bruisingNo confusionivdaPositive etohNo blood transfusion fh of liver disease- etohHad egdOn eliquisPast Medical History: Diagnosis D ate Chronic anticoagulation on Coumadin Chronic gout due to renal impairment of multiple sites without tophus Chronic systolic congestive heart failure (HCC) Chronic viral hepatitis (HC C) History of CVA (cerebrovascular accident) 2022 Hypercoagulable state due to heart valve disorder (HCC) 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 Rossi No past surgical history on file.Social History Tobacco Use Smoking Status Never Smokeless Tobacco Never Social History Substance and Sexual Activity Alcohol Use Not Currently Comment: Sober since July 2022 Social History Substance and Sexual Activity Drug Use Never Family History Problem Relation Name Age of Onset Melanoma Mother Cancer Mother bladder cance r Lung Cancer Father Hypertension Sister Hypertension Brother Allergies Allergen Reactions Penicillins Outpatient Encounter Medications as of 05/06/2023 Medication Sig Dispense Refi ll Allopurinol 300 MG oral Tablet Take 1 tablet (300 mg total) by mouth daily as needed. Atorvastatin Calcium 40 MG oral Tablet Take 1 tablet (40 mg total) by mouth daily. Folic Acid 1 MG oral tablet Take 1 tablet (1 mg total) by mouth daily. Furosemide 80 MG oral Tablet Take 1 tablet (80 mg total) by mouth 2 times daily. Metoprolol Tartrate (LOPRESSOR) 25 MG oral Tablet Take 1 tablet (25 mg total) by mouth 2 times enedelia y. Pantoprazole Sodium 40 MG oral Tablet Delayed Response Take 1 tablet (40 mg total) by mouth daily. [DISCONTINUED] Eliquis 2.5 MG oral Tablet Take 1 tablet (2.5 mg total) by mouth 2 times daily [DISCONTINUED] Gabapentin 100 MG oral Capsule Take 100 mg by mouth 2 times daily [DISCONTINUED] Warfarin (COUMADIN) 5 MG oral Tablet Take 1 tablet (5 mg total) by mouth daily [DISCONTINUED] Warfarin Sodium (COUMADIN) 1 MG oral Tablet Take 0.5 tablets (0.5 mg total) by mouth daily No facility-administered encounter medications on file as of 05/06/2023. I have reviewed the patient's medical history in detail and updated Epic[facility] where needed.Review of Systems Constitutional: Negative for appetite change, fatigue, fever and unexpected weight change. HENT: Negative for hearing loss and trouble swallowing. Eyes: Negative for visual disturbance. Respiratory: Negative for cough, chest tightness and shortness of breath. Cardiovascular: Negative for chest pain and leg swelling. Gastrointestinal: Negative for abdominal distention, abdominal pain, blood in stool, constipation, diarrhea, nausea and vomiting. Genitourinary: Negative for difficulty urinating. Musculoskeletal: Negative for arthralgias and myalgias. Skin: Negative for rash. Neurological: Negative for seizures and headaches. Hematological: Negative for adenopathy. Does not bruise/bleed easily. Physical ExamVitals and nursing note reviewed. Constitutional: General: He is not in acute distress. Appearance: He is well-developed. HENT: Head: Normocephalic. Cardiovascular: Rate and Rhythm: Normal rate and regular rhythm. Heart sounds: Normal heart sounds. No murmur heard. No friction rub. No gallop. Pulmonary: Effort: Pulmonary effort is normal. No respiratory distress. Breath sounds: Normal breath sounds. No wheezing or rales. Abdominal: General: Bowel sounds are normal. There is no distension. Palpations: Abdomen is soft. There is no mass. Tenderness: There is no abdominal tenderness. There is no guarding or rebound. Musculoskeletal: Cervical back: Neck supple. Skin: General: Skin is warm and dry. Findings: No rash. Neurological: Mental Status: He is alert and oriented to person, place, and time. Psychiatric: Behavior: Behavior normal. A/P Hcv/etoh liver disease- was told he had cirrhosisOn diruetics for ascites- no clinically acides at this timeCheck labsDiscussed complicationsDiscussed er precautionsDiscussed etohDiscussed getting old records before repeating all testsDiscussed hcv treatment- and complianceOpportunity for questions given. Patient agrees to plan. [id number] and physical [id number]:31:07History and physical [id number] for patient [id number] and physical noteLNKELPremier Health [facility] [facility] [id number] [id number] .72.3.15|[id number] .[id number] Notes Date/Time Note Provider Source 2023-05-06 14:10:16 [id number]:10:16Formatting of [facility] this note is different from the original.Chief Complaint Patient [place] [id number] [id number]:20:49Nurse [id number] for patient [id number] NoteLNThedaCare Medical Center - [facility] Inc[address] [facility] [id number] [id number] [id number]|[id number] [id number]"
[2023-07-20] MEDS ORDERED: ASPIRIN 81 MG CHEWABLE TABLET ONE (19:06)
[2023-07-20 19:12] LABS: Hematocrit 47.6 % (39.6-49.0); Lymphocytes % 19.1 % (15.3-44.8); MCV 81.3 fL (80-100); MPV 10.1 fL (7.6-11.3); Platelets 172 thou/uL (152-406); RBC Red Blood Cell Count 5.85 M/uL (4.33-5.43)
[2023-07-20 19:16] LABS: Protime INR 1.17
--- NOTE | 2023-07-20 19:35 | RAD REPORT ---
EXAM DESCRIPTION: RAD - Chest Single View - 07/20/2023 7:26 pm CLINICAL HISTORY: CHEST PAIN Chest pain. COMPARISON: <Comparisons> FINDINGS: Portable technique limits examination quality. The lungs are grossly clear. The heart is mildly enlarged in size. No displaced fractures. IMPRESSION: No acute intrathoracic process suspected.
[2023-07-20 19:47] LABS: Potassium 4.4 mEq/L (3.5-5.1)
[2023-07-20 19:48] LABS: Magnesium 2.5 mg/dL (1.6-2.4)
[2023-07-20 19:49] LABS: Troponin High Sensitivity 1320.1 pg/mL (<58.9)
[2023-07-20] MEDS ORDERED: MORPHINE 4 MG/ML SYR ONE (20:49)
[2023-07-20] MEDS ORDERED: ONDANSETRON 4 MG/2 ML VIAL ONE (20:49)
--- NOTE | 2023-07-20 21:20 | EDPHYS ---
Physician Documentation [facility] Name: Natan Paulino Age: 63 yrs Sex: Male : 1960 Arrival Date: 07/20/2023 Time: 18:34 Bed 19 Private MD: ED Physician Brandon Masterson HPI: 07/20 21:17 This 63 yrs old Black Male presents to ER via Ambulatory with complaints of Chest Pain. kb 21:17 Patient is a 63-year-old male with a history of hypertension, MS, CHF and stroke who kb presents for chest pressure that has been intermittent since lunchtime with dyspnea on exertion. States it feels similar to his previous MS.. Historical: - Allergies: 18:42 PENICILLINS; ld1 - PMHx: 18:42 Gout; Hypertension; Myocardial infarction; CHF; Pancreatitis; osteoarthritis; ld1 Rheumatoid Arthritis; stroke; TIA; - PSHx: 18:42 heart stent; finger; Stented artery; ld1 - Immunization history:: Adult Immunizations up to date. - Social history:: Smoking status: Patient denies any tobacco usage or history of. Patient/guardian denies using alcohol. ROS: 21:14 Constitutional: Negative for fever, chills, and weight loss, kb 21:14 Cardiovascular: Positive for chest pain, 21:14 Respiratory: Positive for dyspnea on exertion, 21:14 All other systems are negative, Exam: 21:15 Constitutional: This is a well developed, well nourished patient who is awake, alert, kb and in no acute distress. Head/Face: Normocephalic, atraumatic. ENT: Moist Mucous membranes Cardiovascular: Regular rate Respiratory: Respirations even and unlabored. No increased work of breathing. Talking in full sentences Abdomen/GI: Soft, non-tender. No distention Skin: Warm, dry with normal turgor. Normal color. MS/ Extremity: Pulses equal, no cyanosis. Neurovascular intact. Full, normal range of motion. Neuro: Awake and alert, GCS 15, oriented to person, place, time, and situation. Moves all extremities. Normal gait. Vital Signs: 18:43 BP 129 / 83; Pulse 66; Resp 18; Temp 97.8(TE); Pulse Ox 96% on R/A; Weight 92.99 kg; ld1 Height 6 ft. 3 in. ; Pain 8/10; 21:09 BP 139 / 96; Pulse 69; Resp 16; Pulse Ox 100% on R/A; nw1 21:26 Weight 87.68 kg; nw1 22:09 BP 137 / 94; Pulse 66; Resp 17; Pulse Ox 98% ; nw1 18:43 Body Mass Index 25.62 (87.68 kg, 190.5 cm) ld1 18:43 Pain Scale: Adult ld1 Telly Coma Score: 21:09 Eye Response: spontaneous(4). Motor Response: obeys commands(6). Verbal Response: nw1 oriented(5). Total: 15. MDM: 18:51 Patient medically screened. kb 21:15 Data reviewed: vital signs, nurses notes. kb 21:17 Differential diagnosis: abnormal EKG, acute myocardial infarction, coronary artery kb disease congestive heart failure. The patient was given aspirin in the Emergency Department. Consideration of Admission/Observation Escalation of care including admission/observation considered. 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 Management of patient was discussed with the following: Dr Gonzalez, fire lieutenant marine at [facility], accepts for pt transfer to CCU. Counseling: I had a detailed discussion with the patient and/or guardian regarding the historical points, exam findings, and any diagnostic results supporting the discharge/admit diagnosis, lab results, radiology results, the need to transfer to another facility, [facility] does not immediately have the required specialist. 07/20 18:51 Order name: Basic Metabolic Panel; Complete Time: 19:50 kb 07/20 18:51 Order name: CBC with Diff; Complete Time: 19:42 kb 07/20 18:51 Order name: Magnesium; Complete Time: 19:50 kb 07/20 18:51 Order name: NT PRO-BNP; Complete Time: 19:50 kb 02 18:51 Order name: PT-INR; Complete Time: 19:42 kb 02 18:51 Order name: Troponin HS; Complete Time: 19:50 kb 02 20:27 Order name: Ptt, Activated; Complete Time: 20:39 kl 07/20 18:51 Order name: XRAY Chest (1 view); Complete Time: 19:42 kb 07/20 18:51 Order name: EKG; Complete Time: 18:52 kb 07/20 18:51 Order name: Cardiac monitoring; Complete Time: 20:19 kb 07/20 18:51 Order name: EKG - Nurse/Tech; Complete Time: 18:52 kb 07/20 18:51 Order name: IV Saline Lock; Complete Time: 18:54 kb 07/20 18:51 Order name: Labs collected and sent; Complete Time: 18:54 kb 07/20 18:51 Order name: O2 Per Protocol; Complete Time: 18:52 kb 07/20 18:51 Order name: O2 Sat Monitoring; Complete Time: 18:52 kb Administered Medications: 18:54 Drug: Aspirin PO Chewable Tablet 324 mg PO once; 81 mg tablets x 4 Route: PO; ld1 20:19 Follow up: Response: No adverse reaction nw1 21:04 Drug: Ondansetron IVP 4 mg IVP once; over 2 minutes Route: IVP; Site: right forearm; nw1 21:06 Drug: morphine IVP or IV 4 mg IVP once over 4 mins Route: IVP; Infused Over: 4 mins; nw1 Site: right forearm; 21:37 Drug: Heparin (MS-Bolus No thrombolytic) - HEParin IVP 60 units/kg IVP once; Max 5000 nw1 units {Co-Signature: jose rafael (Julia Santoyo RN).} Route: IVP; Site: right forearm; 21:38 Drug: Heparin (MS Drip) 12 units/kg/[place] - ([place] [address] units, D5W IV 500 ml) IV at nw1 calculated rate Per protocol; Max initial rate 1000 units/hr {Co-Signature: jose rafael (Julia Santoyo RN).} Route: IV; Rate: calculated rate; Site: right forearm; Disposition Summary: 07/20/23 21:19 Transfer Ordered Notes: Transfer Location: [facility] kb Reason: Higher level of care kb Condition: Stable kb Problem: new kb Symptoms: are unchanged kb Accepting Physician: Dr Gonzalez(07/20/23 22:59) nw1 Diagnosis - Chest pain, unspecified - NSTEMI kb - Acute kidney failure, unspecified - acute on chronic kb Forms: - Medication Reconciliation Form kb - SBAR form kb Signatures: Dispatcher [employer] EDMS Yisel Uriostegui, JIMMY-C JIMMY-Kelsy Andrews, RN RN ld1 Rama Orr RN RN nw1 Julia Santoyo RN la4 Corrections: (The following items were deleted from the chart) 22:59 21:19 Dr Carlos brown nw1
--- NOTE | 2023-07-20 21:20 | ER ---
Nurse's Notes [facility] Name: Natan Paulino Age: 63 yrs Sex: Male : 1960 Arrival Date: 07/20/2023 Time: 18:34 Bed 19 Private MD: Diagnosis: Chest pain, unspecified-NSTEMI;Acute kidney failure, unspecified-acute on chronic Presentation: 07/20 18:42 Chief complaint: Patient states: Chest pain since this morning. Coronavirus screen: At ld1 this time, the client does not indicate any symptoms associated with coronavirus-19. Ebola Screen: No symptoms or risks identified at this time. Initial Sepsis Screen: Does the patient meet any 2 criteria? No. Patient's initial sepsis screen is negative. Does the patient have a suspected source of infection? No. Patient's initial sepsis screen is negative. Risk Assessment: Do you want to hurt yourself or someone else? Patient reports no desire to harm self or others. Onset of symptoms was July 20, 2023. 18:42 Method Of Arrival: Ambulatory ld1 18:42 Acuity: NINO 3 ld1 Triage Assessment: 18:42 General: Appears in no apparent distress. uncomfortable, Behavior is calm, cooperative, ld1 appropriate for age. Pain: Complains of pain in chest Pain does not radiate. Pain currently is 8 out of 10 on a pain scale. Quality of pain is described as heavy, pressure, Pain began 4 hours ago. Is continuous. EENT: No signs and/or symptoms were reported regarding the EENT system. Neuro: Level of Consciousness is awake, alert, obeys commands, Oriented to person, place, time, situation. Cardiovascular: Reports chest pain, Capillary refill < 3 seconds Patient's skin is warm and dry. Respiratory: Airway is patent Respiratory effort is even, unlabored. Respiratory: Reports shortness of breath. GI: Abdomen is flat, non-distended. : No signs and/or symptoms were reported regarding the genitourinary system. Derm: No signs and/or symptoms reported regarding the dermatologic system. Musculoskeletal: No signs and/or symptoms reported regarding the musculoskeletal system. Historical: - Allergies: 18:42 PENICILLINS; ld1 - PMHx: 18:42 Gout; Hypertension; Myocardial infarction; CHF; Pancreatitis; osteoarthritis; ld1 Rheumatoid Arthritis; stroke; TIA; - PSHx: 18:42 heart stent; finger; Stented artery; ld1 - Immunization history:: Adult Immunizations up to date. - Social history:: Smoking status: Patient denies any tobacco usage or history of. Patient/guardian denies using alcohol. Screenin:13 [facility] ED Fall Risk Assessment (Adult) History of falling in the last 3 months, nw1 including since admission No falls in past 3 months (0 pts) Confusion or Disorientation No (0 pts) Intoxicated or Sedated No (0 pts) Impaired Gait No (0 pts) Mobility Assist Device Used No (0 pt) Altered Elimination No (0 pt) Score/Fall Risk Level 0 - 2 = Low Risk Oriented to surroundings, Maintained a safe environment, Educated pt \T\ family on fall prevention, incl call for assistance when getting out of bed, Assessed \T\ reinforced patient's understanding of fall precautions, Provided non-skid footwear, Hourly rounding (assess needs \T\ fall precautionary measures) done, Used ambulatory aids as needed (educated on \T\ assisted with). Abuse screen: Denies threats or abuse. Denies injuries from another. Nutritional screening: No deficits noted. Tuberculosis screening: No symptoms or risk factors identified. Assessment: 19:36 Reassessment: Report received. Pt changed into gown and monitor on. VSS. IV intact. nw1 Call light at bedside. Assessment completed. Pt denies needs/wants at this time. Will continue to monitor. 22:56 Reassessment: [facility] ambulance here to transport patient. Report given and all questions nw1 asked, answered. Pain: Denies pain. Vital Signs: 18:43 BP 129 / 83; Pulse 66; Resp 18; Temp 97.8(TE); Pulse Ox 96% on R/A; Weight 92.99 kg; ld1 Height 6 ft. 3 in. ; Pain 8/10; 21:09 BP 139 / 96; Pulse 69; Resp 16; Pulse Ox 100% on R/A; nw1 21:26 Weight 87.68 kg; nw1 22:09 BP 137 / 94; Pulse 66; Resp 17; Pulse Ox 98% ; nw1 18:43 Body Mass Index 25.62 (87.68 kg, 190.5 cm) ld1 18:43 Pain Scale: Adult ld1 Vitals: 21:09 Cardiac Rhythm Assessment Sinus rhythm W/Multifocal PVC's. nw1 [place] Coma Score: 21:09 Eye Response: spontaneous(4). Motor Response: obeys commands(6). Verbal Response: nw1 oriented(5). Total: 15. ED Course: 18:36 Patient arrived in ED. mr 18:42 Triage completed. ld1 18:42 Arm band placed on right wrist. ld1 18:51 Yisel Uriostegui FNP-C [facility] kb 18:51 Brandon Masterson MD is Attending Physician. kb 19:10 Inserted saline lock: 20 gauge in right antecubital area, using aseptic technique. oe 19:27 XRAY Chest (1 view) In Process Unspecified. EDMS 19:36 Rama Orr RN is Primary Nurse. nw1 19:45 Notified Nurse Practitioner and/or Physician Farm Management Adviser of a critical lab result(s), kl [id number]. 20:59 Initiated transfer to [facility], spoke with Enio Khan. wm 21:07 Inserted saline lock: 20 gauge in right forearm, using aseptic technique. Blood nw1 collected. 21:30 Pt accepted for transfer by Dr. Gonzalez to Rm: [id number] per Sheng Khan. wm 21:48 denied transfer due to no available truck. 21:49 [facility] accepted for transport with an ETA of 2245. 22:10 Report given to JOSEPHINE CORTEZ RN. nw1 22:13 Patient has correct armband on for positive identification. Placed in gown. Bed in low nw1 position. Call light in reach. Side rails up X2. Provided Education on: POC. Client placed on continuous cardiac and pulse oximetry monitoring. NIBP monitoring applied. gambling monitor on. Pulse ox on. NIBP on. Door closed. Noise minimized. Lights dimmed. Warm blanket given. Pillow given. 22:13 No provider procedures requiring assistance completed. Patient transferred, IV remains nw1 in place. Patient maintains SpO2 saturation greater than 95% on room air. Administered Medications: 18:54 Drug: Aspirin PO Chewable Tablet 324 mg PO once; 81 mg tablets x 4 Route: PO; ld1 20:19 Follow up: Response: No adverse reaction nw1 21:04 Drug: Ondansetron IVP 4 mg IVP once; over 2 minutes Route: IVP; Site: right forearm; nw1 21:06 Drug: morphine IVP or IV 4 mg IVP once over 4 mins Route: IVP; Infused Over: 4 mins; nw1 Site: right forearm; 21:37 Drug: Heparin (CA-Bolus No thrombolytic) - HEParin IVP 60 units/kg IVP once; Max 5000 nw1 units {Co-Signature: jose rafael (Julia Santoyo RN).} Route: IVP; Site: right forearm; 21:38 Drug: Heparin (CA Drip) 12 units/kg/[place] - ([place] [address] units, D5W IV 500 ml) IV at nw1 calculated rate Per protocol; Max initial rate 1000 units/hr {Co-Signature: jose rafael (Julia Santoyo RN).} Route: IV; Rate: calculated rate; Site: right forearm; Medication: 22:13 VIS not applicable for this client. nw1 Outcome: 21:19 ER care complete, transfer ordered by MD. brown 22:13 Transferred to [facility], [place], nw1 22:13 Condition: stable 22:13 Instructed on the need for transfer, 22:59 Patient left the ED. nw1 Signatures: Dispatcher [employer] Yisel Brody, JIMMY-Bertha SALES SUPPORT ASSOCIATE-Yee Sharma, RN [facility] mr Espinosa, [place] oe Sims, Lauren, RN RN ld1 Isis Garcia Nicole, RN RN nw1 Julia Santoyo RN4
[2023-07-20] MEDS ORDERED: HEPARIN 5000 UNIT/ML 1 ML VIAL ONE (21:39)
[2023-07-20] MEDS ORDERED: HEPARIN/D5W 25,000 UNIT/500 ML BAG IV ONE (21:39)
[2023-07-20 23:09] VITALS: TEMP 97.8
[2023-07-20 23:12] VITALS: BP 137/94; O2SAT 98
--- NOTE | 2023-07-23 13:38 | EKG ---
Test Date: 2023-07-20 Test Time: 18:48:56 Lint Cleaner: Braulio COLBERT MEASUREMENT RESULTS: Intervals: Rate: 68 AZ: 230 QRSD: 142 QT: 478 QTc: 508 Reeds: P: 81 AZ: 230 QRS: -64 T: 82 INTERPRETIVE STATEMENTS: Sinus rhythm with 1st degree AV block with premature atrial complexes Left axis deviation Left bundle branch block Abnormal ECG Compared to ECG 03/02/2023 19:45:47 First degree AV block now present Left bundle-branch block now present Sinus tachycardia no longer present Myocardial infarct finding no longer present T-wave abnormality no longer present Possible ischemia no longer present Electronically Signed On 07-23-23 13:29:43 GROUND HAND by Shamar De Guzman
== END 2023-07-20 22:59 | disposition short-term general hospital (02) ==
LOC: ER 18:34
DX: I21.4 Non-ST elevation (NSTEMI) myocardial infarction (principal); I13.0 Hypertensive heart and chronic kidney disease with heart failure and stage 1 through stage 4 chronic kidney disease, or unspecified chronic kidney disease; N18.9 Chronic kidney disease, unspecified; I50.9 Heart failure, unspecified; N17.9 Acute kidney failure, unspecified; I25.2 Old myocardial infarction; Z95.818 Presence of other cardiac implants and grafts; Z88.0 Allergy status to penicillin
CPT/HCPCS: 93005; 85025; 80048; 36415; 83735; 85610; 85730; 84484; 83880; 71045; 96375; 96374; 99285; J1644; J2405

== ENCOUNTER 2023-08-21 20:12 | Inpatient (IN) | payer OTHER ==
[2023-08-21] MEDS ORDERED: FUROSEMIDE 40 MG/4 ML VIAL ONE (20:53)
[2023-08-21] MEDS ORDERED: MORPHINE 4 MG/ML SYR ONE (20:53)
[2023-08-21] MEDS ORDERED: ONDANSETRON 4 MG/2 ML VIAL ONE (20:53)
[2023-08-21 21:09] LABS: Absolute Lymphocytes (CBC) 0.7 K/uL (0.7-4.9); Lymphocytes % 14.8 % (15.3-44.8); MPV 8.7 fL (7.6-11.3); Platelets 201 thou/uL (152-406); RBC Red Blood Cell Count 4.62 M/uL (4.33-5.43)
[2023-08-21 21:17] LABS: Protime INR 1.61
--- NOTE | 2023-08-21 21:17 | RAD REPORT ---
EXAM DESCRIPTION: RAD - Chest Single View - 08/21/2023 9:10 pm CLINICAL HISTORY: CHEST PAIN Chest pain. COMPARISON: Chest Single View dated 07/20/2023; Chest Single View dated 03/02/2023; Chest Pa And Lat ( 2 Views) dated 02/15/2023; Chest Single View dated 11/24/2022 FINDINGS: Portable technique limits examination quality. The lungs are grossly clear. The heart is mildly enlarged in size. No displaced fractures. IMPRESSION: No acute intrathoracic process suspected.
--- NOTE | 2023-08-21 21:18 | RAD REPORT ---
EXAM DESCRIPTION: RAD - Wrist Right 3 View - 08/21/2023 9:10 pm CLINICAL HISTORY: pain and swelling Pain COMPARISON: No comparisons FINDINGS: Soft tissue swelling is seen about the wrist. No fracture visualized. Periarticular osteop enia noted. Multiple erosions are seen involving the MCP joints as well as the base of the fifth met acarpal and ulnar styloid, suggesting inflammatory arthropathy.
[2023-08-21 22:08] LABS: Albumin 3.4 g/dL (3.4-5.0); Bilirubin Direct 0.6 mg/dL (0-0.2); Bilirubin Indirect, Calculated 0.5 mg/dL (0.2-0.8); Bilirubin Total 1.1 mg/dL (0.2-1.0); C-Reactive Protein 14.2 mg/L (<3.00); Magnesium 2.4 mg/dL (1.6-2.4); Potassium 4.5 mEq/L (3.5-5.1); Protein, Total 8.5 g/dL (6.4-8.2); Uric Acid 11.6 mg/dL (3.5-7.2)
[2023-08-21 22:09] LABS: Troponin High Sensitivity 823.2 pg/mL (<58.9)
--- NOTE | 2023-08-21 22:29 | ER ---
Nurse's Notes [facility] Name: Natan aPulino Age: 63 yrs Sex: Male : 1960 Arrival Date: 08/21/2023 Time: 20:12 Bed 13 Private MD: Diagnosis: Acute diastolic (congestive) heart failure;Elevated troponin level, NSTEMI, Right wrist inflammatory arthritis, Right wrist gout, acute on chronic renal insufficiency, stable liver cirrhosis, abdominal ascites Presentation: 08/21 20:26 Chief complaint: Patient states: chest pain and shortness of breath onset Saturday. Pt cm10 states that his right wrist is swollen. Pt reports swelling to his bilateral legs. Coronavirus screen: Vaccine status: Patient reports receiving the 2nd dose of the covid vaccine. Client denies travel out of the [place] in the last 14 days. Ebola Screen: Patient denies travel to an Ebola-affected area in the 21 days before illness onset. No symptoms or risks identified at this time. Initial Sepsis Screen: Does the patient meet any 2 criteria? No. Patient's initial sepsis screen is negative. Does the patient have a suspected source of infection? No. Patient's initial sepsis screen is negative. Risk Assessment: Do you want to hurt yourself or someone else? Patient reports no desire to harm self or others. Onset of symptoms was August 21, 2023. 20:26 Method Of Arrival: Ambulatory cm10 20:26 Acuity: NINO 2 cm10 Historical: - Allergies: 20:28 PENICILLINS; cm10 - PMHx: 20:28 CHF; Gout; Hypertension; Myocardial infarction; osteoarthritis; Pancreatitis; cm10 Rheumatoid Arthritis; stroke; TIA; - PSHx: 20:28 finger; heart stent; Stented artery; cm10 - Immunization history:: Adult Immunizations up to date. - Social history:: Smoking status: unknown. - Family history:: not pertinent. Screenin:41 [facility] ED Fall Risk Assessment (Adult) Score/Fall Risk Level 0 - 2 = Low Risk. Abuse as6 screen: Denies threats or abuse. Denies injuries from another. Nutritional screening: No deficits noted. Tuberculosis screening: No symptoms or risk factors identified. Assessment: 22:43 General: Appears in no apparent distress. Behavior is calm, cooperative. Pain: as6 Complains of pain in chest. Neuro: Level of Consciousness is awake, alert, obeys commands, Oriented to person, place, time, situation. Cardiovascular: Reports chest pain, Edema. Respiratory: Reports shortness of breath Respiratory effort is even, unlabored, Respiratory pattern is regular, symmetrical. 08/22 02:22 Reassessment: Pt moved from ER room 12 to room 13 and placed in hospitl bed. Pt request la4 to sty in personal clothing and does not want to change into hospital gown at this time as he is comfortable. No distress noted. C/o pain to the right hand and bilateral feet. BP slightly elevated and pt states that he has been taken of a lot of his medications. Will check MAR in meditech and administer. 02:34 Reassessment:. General: Appears in no apparent distress. Behavior is calm, cooperative, la4 appropriate for age. Pain: Complains of pain in right hand, right foot and left foot Pain does not radiate. Pain currently is 9 out of 10 on a pain scale. Quality of pain is described as aching, sharp, throbbing, Is continuous, Alleviated by medications, Aggravated by increased activity, repositioning. Neuro: No deficits noted. Serrano Agitation-Sedation Scale (RASS): 0 - Alert and Calm Level of Consciousness is awake, alert, obeys commands, Oriented to person, place, time, situation, Appropriate for age Bookkeepers Supervisor are weak on right Moves all extremities. Cardiovascular: No deficits noted. Reports None Denies chest pain, Heart tones S1 S2 Capillary refill < 3 seconds is brisk Patient's skin is warm and dry. Edema is 2+ to left midcalf, left ankle, right midcalf and right ankle Rhythm is sinus rhythm. Respiratory: No deficits noted. Airway is patent Respiratory effort is even, unlabored, Respiratory pattern is regular, symmetrical, Breath sounds are clear bilaterally. GI: No deficits noted. No signs and/or symptoms were reported involving the gastrointestinal system. : No deficits noted. No signs and/or symptoms were reported regarding the genitourinary system. Urine is clear. Derm: No deficits noted. No signs and/or symptoms reported regarding the dermatologic system. Musculoskeletal: Circulation, motion, and sensation intact. Capillary refill < 3 seconds, is brisk, Range of motion: intact in all extremities, Swelling. Vital Signs: 08/21 20:26 BP 140 / 100; Pulse 88; Resp 18; Temp 97.1; Pulse Ox 100% on R/A; Weight 92.99 kg; cm10 Height 6 ft. 3 in. ; Pain 8/10; 22:41 BP 150 / 105; Pulse 80; Resp 18 S; Pulse Ox 100% on R/A; as6 08/22 02:22 BP 143 / 108; Pulse 71; Resp 26; Pulse Ox 100% on R/A; Pain 9/10; la4 02:34 Pain 9/10; la4 04:00 BP 148 / 98; Pulse 68; Resp 16; Pulse Ox 99% ; la4 04:00 BP 148 / 98; Pulse 70; Resp 16; Pulse Ox 99% on R/A; la4 04:00 BP 148 / 98; Pulse 70; Resp 16; Pulse Ox 99% ; la4 07:00 BP 152 / 98; Pulse 77; Resp 18; Temp 97.4; Pulse Ox 100% ; la4 08/21 20:26 Body Mass Index 25.62 (92.99 kg, 190.5 cm) cm10 08/21 20:26 Pain Scale: Adult cm10 08/22 02:22 Pain Scale: Adult la4 02:34 Pain Scale: Adult la4 [place] Coma Score: 08/21 21:14 Eye Response: spontaneous(4). Motor Response: obeys commands(6). Verbal Response: sp4 oriented(5). Total: 15. 08/22 02:22 Eye Response: spontaneous(4). Motor Response: obeys commands(6). Verbal Response: la4 oriented(5). Total: 15. 07:00 Eye Response: spontaneous(4). Motor Response: obeys commands(6). Verbal Response: la4 oriented(5). Total: 15. NIH Stroke Scale Scores: 08/21 21:14 NIHSS Score: 0 sp4 ED Course: 20:16 Patient arrived in ED. gm2 20:21 Frandy Sims MD is Attending Physician. sp4 20:28 Triage completed. cm10 20:28 Arm band placed on Patient placed in an exam room, on a stretcher. cm10 20:39 Marquita Wagner is Primary Nurse. cp4 20:48 Basic Metabolic Panel Sent. cm10 20:48 CBC with Diff Sent. cm10 20:48 LFT's Sent. cm10 20:48 Magnesium Sent. cm10 20:48 NT PRO-BNP Sent. cm10 20:48 PT-INR Sent. cm10 20:48 Troponin HS Sent. cm10 20:48 Influenza Screen (a \T\ B) Sent. cm10 20:48 COVID-19 SARS RT PCR Sent. cm10 20:48 CRP Sent. cm10 20:48 Uric Acid Sent. cm10 20:48 Initial lab(s) drawn, by me, sent to lab. COVID swab sent to lab. Flu and/or RSV swab cm10 sent to lab. Inserted saline lock: 18 gauge in right forearm, using aseptic technique. Blood collected. 21:12 XRAY Chest (1 view) In Process Unspecified. EDMS 21:12 Wrist Right 3 View XRAY In Process Unspecified. EDMS 22:27 Thomas Boyle is Hospitalizing Provider. sp4 22:41 Bed in low position. Call light in reach. Side rails up X 1. as6 22:45 No provider procedures requiring assistance completed. Patient admitted, IV remains in as6 place. 08/22 02:22 No apparent distress. Awaiting bed assignment. la4 02:22 Provided Education on: Plan of care and admission to hospital. Client placed on la4 continuous cardiac and pulse oximetry monitoring. NIBP monitoring applied. 02:22 IV is patent, is intact, with good blood return, Flushed right forearm saline lock 10ml la4 NS. Administered Medications: 08/21 21:00 Drug: Furosemide IVP 40 mg IVP once; give over 2 minutes Route: IVP; Site: right cp4 forearm; 08/22 00:49 Follow up: Response: No adverse reaction as6 08/21 21:00 Drug: Ondansetron IVP 4 mg IVP once; over 2 minutes Route: IVP; Site: right forearm; cp4 08/22 00:49 Follow up: Response: No adverse reaction as6 08/21 21:01 Drug: morphine IVP or IV 4 mg IVP once over 4 mins Route: IVP; Infused Over: 4 mins; cp4 Site: right forearm; 08/22 00:49 Follow up: Response: No adverse reaction as6 08/21 22:40 Drug: predniSONE PO 60 mg PO once Route: PO; as6 08/22 00:49 Follow up: Response: No adverse reaction as6 08/21 22:40 Drug: HYDROcodone-acetaminophen PO 5 mg-325 mg 2 tabs PO once Route: PO; as6 08/22 00:49 Follow up: Response: No adverse reaction as6 02:34 Follow up: Pain 9/10 Adult; Response: No adverse reaction; Pain is increased la4 03:00 Drug: HydrALAZINE PO 25 mg PO once Route: PO; la4 04:00 Follow up: BP 148 / 98; Pulse 68 bpm; Resp 16 bpm; Pulse Ox 99% la4 04:00 Follow up: BP 148 / 98; Pulse 70 bpm; Resp 16 bpm; Pulse Ox 99% RA; Response: No la4 adverse reaction; Pain is decreased 03:00 Drug: morphine IVP or IV 4 mg IVP once over 4 mins Route: IVP; Infused Over: 4 mins; la4 Site: left wrist; 04:00 Follow up: BP 148 / 98; Pulse 70 bpm; Resp 16 bpm; Pulse Ox 99% ; Response: No adverse la4 reaction; Pain is decreased 03:00 Drug: Promethazine PO 25 mg PO once Route: PO; la4 05:35 Follow up: Response: No adverse reaction; Pain is decreased la4 Medication: 08/21 22:41 VIS not applicable for this client. as6 Outcome: 22:28 Decision to Hospitalize by Provider. sp4 08/22 00:49 Admitted to ER Hold. Please see [facility] for further documentation. as6 Condition: stable Instructed on the need for admit, 17:34 Patient left the ED. iw NIH Stroke Scale - NIH Stroke Score Date: 08/21/2023 Time: 21:14 Total Score = 0 10. Dysarthria (speech clarity - read or repeat words) - 0(Normal) 11. Extinction and Inattention (visual/tactile/auditory/spatial/personal) - 0(No abnormality) 1a. Level of Consciousness (LOC) - 0(Alert) 1b. Level of Consciousness (LOC) (Month \T\ Age) - 0(Both) 1c. LOC Commands (Open \T\ Closes Eyes/Tamale Maker) - 0(Both) 2. Best Gaze (Lateral Gaze Paresis) - 0(Normal) 3. Visual Field Loss - 0(No visual loss) 4. Facial Palsy - 0(Normal) 5a. Left Arm: Motor (10-second hold) - 0(No drift) 5b. Right Arm: Motor (10-second hold) - 0(No drift) 6a. Left Leg: Motor (5-second hold - always test supine) - 0(No drift) 6b. Right Leg: Motor (5-second hold - always test supine) - 0(No drift) 7. Limb Ataxia (finger/nose \T\ heel/santiago - test with eyes open) - 0(Absent) 8. Sensory Loss (pinprick arms/legs/face) - 0(Normal) 9. Best Language: Aphasia (description/naming/reading) - 0(No aphasia) Initials: sp4 Signatures: Dispatcher [employer] EDMartha Mcmahan RN RN iw Malcolm Qureshi RN RN as6 Frandy Sims MD MD sp4 Joi Emmanuel RN RN cm10 Marquita Wagner cp4 Candace Khalil gm2 Julia Santoyo RN RN la4
--- NOTE | 2023-08-21 22:29 | EDPHYS ---
Physician Documentation [facility] Name: Natan Paulino Age: 63 yrs Sex: Male : 1960 Arrival Date: 08/21/2023 Time: 20:12 Bed 13 Private MD: ED Physician Frandy Sims HPI: 08/21 20:21 This 63 yrs old Black Male presents to ER via Unassigned with complaints of Shortness sp4 Of Breath, Hand Swelling, Hand Pain, Abdominal Swelling. 20:22 PMH - Historical: Allergies: PENICILLINS PMHx: Gout; Hypertension; Myocardial sp4 infarction; CHF; Pancreatitis; osteoarthritis; Rheumatoid Arthritis; stroke; TIA; PSHx: heart stent; finger; Stented artery;. 20:33 Patient states he developed symptoms this Saturday 3 days ago and he has chest pains, sp4 orthopnea, dyspnea on exertion, bilateral lower extremity edema, abdominal swelling, also right wrist pain and swelling. Patient has extensive past medical history with prior admission on 03/02/2023 for acute on chronic systolic congestive heart failure with decreased ejection fraction, acute decompensated liver disease with ascites MELD score 18, acute on chronic kidney disease, non-ST elevated AL, history of left ventricular thrombus, coronary artery disease status post PCI in 2019, history of TIA and hypertension. Patient has history of alcoholic hepatitis and hepatitis C with liver cirrhosis MELD score 18, history of left ventricular thrombus, chronic systolic congestive heart failure, coronary artery disease, prior TIA, chronic kidney disease stage IV, hypertension. Patient was admitted to medical service cysts for acute on chronic decompensated congestive heart failure also patient was evaluated by grape cutter and tube building machine operator he had paracentesis on 03/04/2023, and it was treated with IV diuretics. Patient was evaluated by pipefitter as well and started on diuretic regimen. Patient's medications include Protonix 40 daily, atorvastatin 40 bedtime, aspirin 81 mg daily, Entresto 24-26 mg twice daily, metoprolol titrate twice daily, spironolactone 25 mg p.o. twice daily, torsemide 40 mg p.o. twice daily.. Historical: - Allergies: 20:28 PENICILLINS; cm10 - PMHx: 20:28 CHF; Gout; Hypertension; Myocardial infarction; osteoarthritis; Pancreatitis; cm10 Rheumatoid Arthritis; stroke; TIA; - PSHx: 20:28 finger; heart stent; Stented artery; cm10 - Immunization history:: Adult Immunizations up to date. - Social history:: Smoking status: unknown. - Family history:: not pertinent. ROS: 20:33 Constitutional: Negative for fever, chills, and weight loss, positive chest pain, sp4 positive shortness of breath , positive orthopnea, positive dyspnea on exertion , positive bilateral lower extremity swelling , positive for right wrist pain and swelling 20:33 All other systems are negative, Exam: 20:33 Constitutional: This is a well developed, well nourished patient who is awake, alert, sp4 patient is ill-appearing male with abdominal ascites, bilateral lower extremity swelling, pitting edema, jugular venous distention, distended neck veins, but nontoxic-appearing at this time Head/Face: Normocephalic, atraumatic. Eyes: Pupils equal round and reactive to light, extra-ocular motions intact. Lids and lashes normal. Conjunctiva and sclera are not injected. Cornea within normal limits. Periorbital areas with no swelling, redness, or edema. ENT: Nares patent. No nasal discharge, no septal abnormalities noted. Tympanic membranes are normal and external auditory canals are clear. Oropharynx with no redness, swelling, or masses, exudates, or evidence of obstruction, uvula midline. Mucous membranes moist. Neck: Trachea midline, no thyromegaly or masses palpated, and no cervical lymphadenopathy. Supple, full range of motion without nuchal rigidity, or vertebral point tenderness. Positive JVD Chest/axilla: Normal chest wall appearance and motion. Nontender with no deformity. No lesions are appreciated. Cardiovascular: Regular rate, positive jugular venous distention, positive distended neck veins, positive bilateral lower extremity edema, positive sign of volume overload. No gallops, murmurs, or rubs. No pulse deficits. Respiratory: Lungs have equal breath sounds bilaterally, positive bilateral crackles. No rales, rhonchi or wheezes noted. No increased work of breathing, no retractions or nasal flaring. Abdomen/GI: Soft, non-tender, with normal bowel sounds. No guarding or rebound. No evidence of tenderness throughout. Positive abdominal distention and abdominal ascites that is nontense Back: No spinal tenderness. No costovertebral tenderness. Skin: Warm, dry with normal turgor. Normal color with no rashes, no lesions, and no evidence of cellulitis. MS/ Extremity: Pulses equal, no cyanosis. Neurovascular intact. Full, normal range of motion. Neuro: Awake and alert, GCS 15, oriented to person, place, time, and situation. Cranial nerves II-XII grossly intact. Motor strength 5/5 in all extremities. Sensory grossly intact. Psych: Awake, alert, with orientation to person, place and time. Behavior, mood, and affect are within normal limits 21:14 ECG was reviewed by the Attending Physician. EKG at 2036 sinus rhythm at a rate of 86, sp4 first-degree AV block, left axis deviation left bundle branch block. No acute AL based on Sgarb[place] criteria. Bundle branch block is old Vital Signs: 20:26 BP 140 / 100; Pulse 88; Resp 18; Temp 97.1; Pulse Ox 100% on R/A; Weight 92.99 kg; cm10 Height 6 ft. 3 in. ; Pain 8/10; 22:41 BP 150 / 105; Pulse 80; Resp 18 S; Pulse Ox 100% on R/A; as6 08/22 02:22 BP 143 / 108; Pulse 71; Resp 26; Pulse Ox 100% on R/A; Pain 9/10; la4 02:34 Pain 9/10; la4 04:00 BP 148 / 98; Pulse 68; Resp 16; Pulse Ox 99% ; la4 04:00 BP 148 / 98; Pulse 70; Resp 16; Pulse Ox 99% on R/A; la4 04:00 BP 148 / 98; Pulse 70; Resp 16; Pulse Ox 99% ; la4 07:00 BP 152 / 98; Pulse 77; Resp 18; Temp 97.4; Pulse Ox 100% ; la4 08/21 20:26 Body Mass Index 25.62 (92.99 kg, 190.5 cm) cm10 08/21 20:26 Pain Scale: Adult cm10 08/22 02:22 Pain Scale: Adult la4 02:34 Pain Scale: Adult la4 NIH Stroke Scale Scores: 08/21 21:14 NIHSS Score: 0 sp4 [place] Coma Score: 21:14 Eye Response: spontaneous(4). Motor Response: obeys commands(6). Verbal Response: sp4 oriented(5). Total: 15. 08/22 02:22 Eye Response: spontaneous(4). Motor Response: obeys commands(6). Verbal Response: la4 oriented(5). Total: 15. 07:00 Eye Response: spontaneous(4). Motor Response: obeys commands(6). Verbal Response: la4 oriented(5). Total: 15. MDM: 08/21 20:29 Patient medically screened. sp4 22:25 Differential diagnosis: Bronchitis CHF exacerbation, Chronic Obstructive Pulmonary sp4 Disease Myocardial Infarction pneumonia, Psychogenic pulmonary edema. Data reviewed: vital signs, nurses notes, lab test result(s), EKG, radiologic studies, plain films. Consideration of Admission/Observation Patient was admitted/placed on observation. Escalation of care including admission/observation considered. Management of patient was discussed with the following: Hospitalist: [place] BLOOM . Chainstitch Tunnel Elastic Operator: [place] BLOOM . ED course: Warrants admission for acute CHF exacerbation, diastolic heart failure, elevated troponin, NSTEMI, also findings of right wrist inflammatory arthritis consistent with elevated uric acid most likely gout. Patient's condition on abdomen is stable he is hemodynamically stable. . 08/21 20:27 Order name: COVID-19 SARS RT PCR; Complete Time: 22:07 [facility] 08/21 20:27 Order name: Influenza Screen (a \T\ B); Complete Time: 23:37 [facility] 08/21 20:28 Order name: Basic Metabolic Panel; Complete Time: 22:10 [facility] 08/21 20:28 Order name: CBC with Diff; Complete Time: 22:07 [facility] 08/21 20:28 Order name: LFT's; Complete Time: 22:10 [facility] 08/21 20:28 Order name: Magnesium; Complete Time: 22:10 [facility] 08/21 20:28 Order name: NT PRO-BNP; Complete Time: 22:10 [facility] 08/21 20:28 Order name: PT-INR; Complete Time: 22:07 [facility] 08/21 20:28 Order name: Troponin HS; Complete Time: 22:10 [facility] 08/21 20:28 Order name: Uric Acid; Complete Time: 22:10 [facility] 08/21 20:28 Order name: CRP; Complete Time: 22:10 [facility] 08/22 00:57 Order name: Troponin High Sensitivity; Complete Time: 02:46 EDNE 08/22 04:21 Order name: CBC with Automated Diff EDMS 08/22 04:37 Order name: Basic Metabolic Panel EDMS 08/22 04:37 Order name: Phosphorus EDMS 08/22 04:37 Order name: Magnesium EDMS 08/22 04:40 Order name: Troponin High Sensitivity EDMS 08/22 05:32 Order name: Manual Differential EDMS 08/22 09:52 Order name: Troponin High Sensitivity EDMS 08/21 20:28 Order name: XRAY Chest (1 view); Complete Time: 22:07 sp4 08/21 20:29 Order name: Wrist Right 3 View XRAY; Complete Time: 22:07 sp4 08/21 20:28 Order name: EKG; Complete Time: 20:28 sp4 08/21 20:28 Order name: Cardiac monitoring; Complete Time: 20:48 sp4 08/21 20:28 Order name: EKG - Nurse/Tech; Complete Time: 20:48 sp4 08/21 20:28 Order name: IV Saline Lock; Complete Time: 20:48 sp4 08/21 20:28 Order name: Labs collected and sent; Complete Time: 20:48 sp4 08/21 20:28 Order name: O2 Per Protocol; Complete Time: 20:48 sp4 08/21 20:28 Order name: O2 Sat Monitoring; Complete Time: 20:48 sp4 EC:14 Rate is 86 beats/min. Rhythm is regular, Sinus Rhythm. Left axis deviation noted. [place] sp4 interval is prolonged. QRS interval is prolonged. QT interval is normal. T waves are Normal. No ST changes noted. Clinical impression: No evidence of ischemia. Interpreted by me. Reviewed by me. Administered Medications: 21:00 Drug: Furosemide IVP 40 mg IVP once; give over 2 minutes Route: IVP; Site: right cp4 forearm; 08/22 00:49 Follow up: Response: No adverse reaction as6 08/21 21:00 Drug: Ondansetron IVP 4 mg IVP once; over 2 minutes Route: IVP; Site: right forearm; cp4 08/22 00:49 Follow up: Response: No adverse reaction as6 08/21 21:01 Drug: morphine IVP or IV 4 mg IVP once over 4 mins Route: IVP; Infused Over: 4 mins; 4 Site: right forearm; 08/22 00:49 Follow up: Response: No adverse reaction as6 08/21 22:40 Drug: predniSONE PO 60 mg PO once Route: PO; 08/22 00:49 Follow up: Response: No adverse reaction 6 08/21 22:40 Drug: HYDROcodone-acetaminophen PO 5 mg-325 mg 2 tabs PO once Route: PO; 08/22 00:49 Follow up: Response: No adverse reaction as6 02:34 Follow up: Pain 9/10 Adult; Response: No adverse reaction; Pain is increased la4 03:00 Drug: HydrALAZINE PO 25 mg PO once Route: PO; la4 04:00 Follow up: BP 148 / 98; Pulse 68 bpm; Resp 16 bpm; Pulse Ox 99% la4 04:00 Follow up: BP 148 / 98; Pulse 70 bpm; Resp 16 bpm; Pulse Ox 99% RA; Response: No la4 adverse reaction; Pain is decreased 03:00 Drug: morphine IVP or IV 4 mg IVP once over 4 mins Route: IVP; Infused Over: 4 mins; la4 Site: left wrist; 04:00 Follow up: BP 148 / 98; Pulse 70 bpm; Resp 16 bpm; Pulse Ox 99% ; Response: No adverse la4 reaction; Pain is decreased 03:00 Drug: Promethazine PO 25 mg PO once Route: PO; la4 05:35 Follow up: Response: No adverse reaction; Pain is decreased la4 Disposition Summary: 08/21/23 22:28 Hospitalization Ordered Notes: Hospitalization Status: Inpatient Admission sp4 Provider: Thomas Boyle sp4 Condition: Fair sp4 Problem: new sp4 Symptoms: have improved sp4 Bed/Room Type: Standard sp4 Location: Telemetry/MedSurg (Inpatient)(08/22/23 16:02) ja Room Assignment: [facility](08/22/23 16:02) ja Diagnosis - Acute diastolic (congestive) heart failure sp4 - Elevated troponin level, NSTEMI, Right wrist inflammatory arthritis, Right wrist sp4 gout, acute on chronic renal insufficiency, stable liver cirrhosis, abdominal ascites Forms: - Medication Reconciliation Form sp4 - SBAR form sp4 - Leadership Thank You Letter sp4 NIH Stroke Scale - NIH Stroke Score Date: 08/21/2023 Time: 21:14 Total Score = 0 10. Dysarthria (speech clarity - read or repeat words) - 0(Normal) 11. Extinction and Inattention (visual/tactile/auditory/spatial/personal) - 0(No abnormality) 1a. Level of Consciousness (LOC) - 0(Alert) 1b. Level of Consciousness (LOC) (Month \T\ Age) - 0(Both) 1c. LOC Commands (Open \T\ Closes Eyes/Staff Psychologist) - 0(Both) 2. Best Gaze (Lateral Gaze Paresis) - 0(Normal) 3. Visual Field Loss - 0(No visual loss) 4. Facial Palsy - 0(Normal) 5a. Left Arm: Motor (10-second hold) - 0(No drift) 5b. Right Arm: Motor (10-second hold) - 0(No drift) 6a. Left Leg: Motor (5-second hold - always test supine) - 0(No drift) 6b. Right Leg: Motor (5-second hold - always test supine) - 0(No drift) 7. Limb Ataxia (finger/nose \T\ heel/santiago - test with eyes open) - 0(Absent) 8. Sensory Loss (pinprick arms/legs/face) - 0(Normal) 9. Best Language: Aphasia (description/naming/reading) - 0(No aphasia) Initials: sp4 Signatures: Dispatcher [employer] EDSujatha Baptiste RN RADHIKA Jerson Orozco RN RN yael1 Malcolm Qureshi RN RN as6 Frandy Sims MD MD sp4 Joi Emmanuel RN RN cm10 Marquita Wagner cp4 Julia Santoyo RN RN la4 Corrections: (The following items were deleted from the chart) 08/21 23:57 22:28 Telemetry/MedSurg (Inpatient) sp4 23:57 22:28 sp4 08/22 16:02 08/21 23:57 [facility] ER HOLD ja1 08/22 16:02 08/21 23:57 ERHOLD- ja1
[2023-08-21] MEDS ORDERED: predniSONE 20 MG TAB ONE (22:34)
[2023-08-21] MEDS ORDERED: HYDROCODONE/APAP 5/325 MG TAB ONE (22:35)
[2023-08-21] MEDS ORDERED: ONDANSETRON 4 MG/2 ML VIAL IV PRN (22:51)
[2023-08-21] MEDS ORDERED: ACETAMINOPHEN 650MG/RECT SUPP PR PRN (22:51)
[2023-08-21] MEDS: COLCHICINE 0.6 MG TAB PO SCH (23:08)
--- NOTE | 2023-08-21 23:30 | P.HP ---
Certification for Inpatient Patient admitted to: Observation With expected LOS: <2 Midnights Practitioner: I am a practitioner with admitting privileges, knowledge of patient current condition, hospital course, and medical plan of care. Services: Services provided to patient in accordance with Admission requirements found in Title 42 Section 412.3 of the Code of Federal Regulations Patient History Date of Service: 08/21/23 Reason for admission: Shortness of breath and abdominal distention History of Present Illness: 63-year-old gentleman with a history of advanced heart failure, cardiac thrombosis presented to the emergency department with a complaint of abdominal distention, shortness of breath and swelling of the right hand and wrist of 5 days duration. Patient states he is not on any Lasix maintenance. Chest x-ray. No pulmonary congestion. Patient's abdomen is distended. He is stable on room air. Troponin elevated to 832. UricAcid elevated. Patient reports history of gout. EKG shows left bundle branch block which is old. The patient is hospitalized for further management. Allergies Penicillins Allergy (Verified 10/27/22 21:16) Hives/Rash Home Medications: Pantoprazole [Protonix Tab*] 40 mg PO DAILY #30 tab 09/06/21 Atorvastatin Calcium [Lipitor] 40 mg PO BEDTIME #30 tab 10/15/22 Aspirin [Aspirin EC] 81 mg PO DAILY #30 tab 10/29/22 Sacubitril/Valsartan [Entresto 24 mg-26 mg Tablet] 0.5 tab PO BID #60 tab 10/29/22 Metoprolol Tartrate 0.5 tab PO BID #30 03/07/23 Spironolactone [Aldactone*] 25 mg PO BID #60 tab 03/07/23 Torsemide [Demadex*] 40 mg PO BIDL #120 tab 03/07/23 - Past Medical/Surgical History Diabetic: No -: Hypertension -: 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 - Family History Father -: Cancer, Liver disease Mother -: GI disease, Other (see notes) Notes: NA - Social History Alcohol use: No CD- Drugs: No Caffeine use: No Review of Systems Other: Except as documented, all other systems reviewed and negative. Physical Examination - Physical Exam General: Alert, In no apparent distress, Oriented x3 HEENT: Normocephalic, Mucous membr. moist/pink, Sclerae nonicteric Neck: Supple, JVD not distended Respiratory: Clear to auscultation bilaterally, Normal air movement Cardiovascular: Regular rate/rhythm, Normal S1 S2, Edema (Trace bilateral lower extremity edema) Capillary refill: <2 Seconds Gastrointestinal: Normal bowel sounds, Soft and benign, No tenderness, Distended Musculoskeletal: No swelling, No tenderness Integumentary: No rashes, No cyanosis Neurological: Normal speech, Normal strength at 5/5 x4 extr Lymphatics: No axilla or inguinal lymphadenopathy - Studies Laboratory Data (last 24 hrs) 08/21/23 08/21/23 08/21/23 20:45 20:45 20:45 WBC 4.50 Hgb 11.9 L Hct 36.0 L Plt Count 201 PT 17.5 H INR 1.61 Sodium 136 Potassium 4.5 BUN 46 H Creatinine 3.30 H Glucose 119 H Uric Acid 11.6 H Magnesium 2.4 Total Bilirubin 1.1 H AST 37 ALT 25 Alkaline Phosphatase 352 H Microbiology Data (last 24 hrs): 08/21/23 20:45 Nasopharnyx Influenza Type A Antigen Screen - Final 08/21/23 20:45 Nasopharnyx Influenza Type B Antigen Screen - Final Assessment and Plan - Problems (Diagnosis) (1) Acute on chronic systolic heart failure Current Visit: No Status: Chronic (2) Acute gouty arthropathy Current Visit: No Status: Acute (3) Elevated troponin Current Visit: No Status: Acute (4) Alcoholic cardiomyopathy Current Visit: No Status: Chronic (5) Mural thrombus of heart Current Visit: No Status: Acute (6) Chronic kidney disease, stage 3 Current Visit: No Status: Chronic Qualifiers: Chronic kidney disease stage 3 subtype: stage 3b (GFR 30-44) Qualified Code(s): N18.32 - Chronic kidney disease, stage 3b - Plan Acute on chronic systolic heart failure Elevated troponin Abdominal distention Placed under observation on the medical floor Start IV Lasix Trend troponin Cardiology consult. Most recent echo in September 2022 showed EF of 30 to 35%. Acute gout/hyperuricemia Start oral prednisone, oral colchicine Analgesics as needed Avoid NSAIDs. History of cardiac thrombus Resume home anticoagulant. Chronic kidney disease stage 3/4 Monitor renal function on diuresis. Essential hypertension Reconcile and continue home medications - Advance Directives Does patient have a Living Will: No Does patient have a Durable POA for Healthcare: No
[2023-08-21 23:51] VITALS: BMI 25.6
[2023-08-22] MEDS ORDERED: COLCHICINE 0.6 MG TAB ONE ×2 (01:10→09:07)
[2023-08-22] MEDS ORDERED: HYDRALAZINE HCL 25 MG TABLET ONE (02:50)
[2023-08-22] MEDS ORDERED: MORPHINE 4 MG/ML SYR ONE (02:51)
[2023-08-22] MEDS ORDERED: PROMETHAZINE 25 MG TABLET ONE (02:51)
[2023-08-22 04:20] LABS: Absolute Lymphocytes (CBC) 0.3 K/uL (0.7-4.9); Hematocrit 36.5 % (39.6-49.0); Lymphocytes % 5.2 % (15.3-44.8); MCV 79.3 fL (80-100); MPV 8.5 fL (7.6-11.3); Platelets 191 thou/uL (152-406)
[2023-08-22 04:36] LABS: Magnesium 2.4 mg/dL (1.6-2.4); Phosphorus 3.9 mg/dL (2.5-4.9); Potassium 5.3 mEq/L (3.5-5.1)
[2023-08-22 05:32] LABS: Blood Morphology Comment NOT SEEN (NOT SEEN); Platelet Estimate ADEQ
[2023-08-22] MEDS: COLCHICINE 0.6 MG TAB PO SCH (09:00)
[2023-08-22] MEDS: predniSONE 20 MG TAB PO SCH (09:00)
[2023-08-22] MEDS: FUROSEMIDE 40 MG/4 ML VIAL IV SCH ×2 (09:00→18:30)
[2023-08-22] MEDS ORDERED: predniSONE 20 MG TAB ONE (09:06)
[2023-08-22] MEDS ORDERED: FUROSEMIDE 40 MG/4 ML VIAL ONE (09:07)
--- NOTE | 2023-08-22 13:11 | P.PN ---
Date of Service: 08/22/23 Subjective: breathing better, edema minimally improved R hand gig tender /swollen; intermittent pain denies any worsening still dyspneic with short ambulation ROS: 10 point ROS as noted above, otherwise negative Physical Exam: GEN: Alert, oriented, NAD HEENT: Normal conjunctiva, sclera anicteric CV: Regular rate and rhythm, 1+ b/l lower extremity edema Pulm: Nonlabored respirations on room air, diminished bilaterally at bases, clear ABD: Soft, nontender, abdominal distention Neuro: Normal speech, normal affect MSK: tenderness to palpation along wrist, most at base of thumb vitals reviewed Problem List: Acute on chronic systolic CHF (EF <20% 07/2023 @ [facility]) NSTEMI h/o CAD s/p stent (2018) h/o paroxysmal afib; Mural thrombus, on eliquis h/o alcoholic pancreatitis Acute gout / Hyperuricemia Right wrist pain / swelling CKD 3/4 Essential hypertension Acute on chronic systolic CHF (EF <20% 07/2023 @ [facility]) NSTEMI h/o CAD s/p stent (2018) troponins elevated, now downtrending. monitor on tele Cardiology consulted CXR (08/21): no acute intrathoracic process BNP 8k Continue IV lasix BID Most recent echo in September 2022: 30% EF, moderate global hypokinesis, left at rial enlargement, mild MR, mod TR h/o paroxysmal afib; Mural thrombus, on eliquis resume home eliquis, amiodarone Acute gout/hyperuricemia Right wrist pain / swelling xray wrist (08/21): soft tissue swelling. No fracture visualized. Periarticular osteopenia. Multiple erosions are seen involving the MCP joints as well as the base of the fifth metacarpal and ulnar styloid, suggesting inflammatory arthropathy. Continue PO prednisone, oral colchicine PRN Analgesics Avoid NSAIDs. CKD 3/4 Nephrology consulted - Sees Dr. Rossi Continue IV lasix BID Continue to monitor renal function. home med list noted torsemide - prescribed a few weeks ago on dc from [facility] Essential hypertension Reconcile and continue home medications VTE: home eliquis Code: Full Dispo: home, ~2 days
--- NOTE | 2023-08-22 13:30 | P.CNS ---
Date of Consult: 08/22/23 Reason for Consult: BRIDGER/ CKD Requesting Physician: Bill Jha Chief Complaint: Shortness of breath and abdominal distention History of Present Illness: 63-year-old gentleman with a history of advanced heart failure, cardiac thrombo sis presented to the emergency department with a complaint of abdominal distention, shortness of breath and swelling of the right hand and wrist of 5 days duration. Patient states he is not on any Lasix maintenance. Chest x-ray. No pulmonary congestion. Patient's abdomen is distended. He is stable on room air. Troponin elevated to 832. UricAcid elevated. Patient reports history of gout. EKG shows left bundle branch block which is old. The patient is hospitalized for further management. 20:21 This 63 yrs old Black Male presents to ER via Unassigned with complaints of Shortness sp4 Of Breath, Hand Swelling, Hand Pain, Abdominal Swelling. 20:22 PMH - Historical: Allergies: PENICILLINS PMHx: Gout; Hypertension; Myocardial sp4 infarction; CHF; Pancreatitis; osteoarthritis; Rheumatoid Arthritis; stroke; TIA; PSHx: heart stent; finger; Stented artery;. 20:33 Patient states he developed symptoms this Saturday 3 days ago and he has chest pains, sp4 orthopnea, dyspnea on exertion, bilateral lower extremity edema, abdominal swelling, also right wrist pain and swelling. Patient has extensive past medical history with prior admission on 03/02/2023 for acute on chronic systolic congestive heart failure with decreased ejection fraction, acute decompensated liver disease with ascites MELD score 18, acute on chronic kidney disease, non-ST elevated MT, history of left ventricular thrombus, coronary artery disease status post PCI in 2019, history of TIA and hypertension. Patient has history of alcoholic hepatitis and hepatitis C with liver cirrhosis MELD score 18, history of left ventricular thrombus, chronic systolic congestive heart failure, coronary artery disease, prior TIA, chronic kidney disease stage IV, hypertension. 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 Patient was evaluated by automatic die cutting machine operator as well and started on diuretic regimen. Patient's medications include Protonix 40 daily, atorvastatin 40 bedtime, aspirin 81 mg daily, Entresto 24-26 mg twice daily, metoprolol titrate twice daily, spironolactone 25 mg p.o. twice daily, torsemide 40 mg p.o. twice daily. Allergies Penicillins Allergy (Verified 10/27/22 21:16) Hives/Rash Home medications list reviewed: Yes Home Medications: Pantoprazole [Protonix Tab*] 40 mg PO DAILY #30 tab 09/06/21 Atorvastatin Calcium [Lipitor] 40 mg PO BEDTIME #30 tab 10/15/22 Aspirin [Aspirin EC] 81 mg PO DAILY #30 tab 10/29/22 Sacubitril/Valsartan [Entresto 24 mg-26 mg Tablet] 0.5 tab PO BID #60 tab 10/29 Metoprolol Tartrate 0.5 tab PO BID #30 03/07/23 Spironolactone [Aldactone*] 25 mg PO BID #60 tab 03/07/23 Amiodarone HCl [Cordarone Tab] 200 mg PO DAILY 08/22/23 Apixaban [Eliquis] 5 mg PO BID 08/22/23 Calcium Acetate 667 mg PO DAILY 08/22/23 Ferrous Sulfate 325 mg PO DAILY 08/22/23 Hydralazine HCl 100 mg PO Q8HR 08/22/23 Isosorbide Dinit [Isordil] 20 mg PO TID 08/22/23 Sofosbuvir/Velpatasvir [Epclusa 400 mg-100 mg Tablet] 1 each PO DAILY 08/22/23 Torsemide [Demadex*] 20 mg PO BID 08/22/23 - Past Medical/Surgical History Diabetic: No -: Hypertension -: Systolic congestive heart failure secondary to alcoholic cardiomyopathy -: Alcoholic Pancreatitis -: TIA -: Gout -: CKD 4 (Dr. Rossi/ Dr. 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 - Family History Father Medical History: Cancer, Liver disease Mother Medical History: GI disease, Other (see notes) Notes: NA - Social History Smoking Status: Unknown if ever smoked Alcohol use: No CD- Drugs: No Caffeine use: No Review of Systems 10-point ROS is otherwise unremarkable Respiratory: SOB with Excertion Cardiovascular: Edema Musculoskeletal: Hand Pain Physical Examination Temp Pulse Resp BP Pulse Ox 97.5 F 79 18 152/98 H 100 08/22/23 08:00 08/22/23 09:00 08/22/23 08:00 08/22/23 09:00 08/22/23 08:00 General: In no apparent distress, Oriented x3, Cooperative HEENT: Atraumatic Neck: Supple Respiratory: Clear to auscultation bilaterally Cardiovascular: Edema (trace) Gastrointestinal: Soft and benign, Non-distended Musculoskeletal: No clubbing, No contractures, Swelling, Tenderness Integumentary: No rashes, No cyanosis Neurological: Normal speech Laboratory Data (last 24 hrs) 08/21/23 08/21/23 08/21/23 20:45 20:45 20:45 WBC 4.50 Hgb 11.9 L Hct 36.0 L Plt Count 201 PT 17.5 H INR 1.61 Sodium 136 Potassium 4.5 BUN 46 H Creatinine 3.30 H Glucose 119 H Uric Acid 11.6 H Magnesium 2.4 Total Bilirubin 1.1 H AST 37 ALT 25 Alkaline Phosphatase 352 H Imagings Data: EXAM DESCRIPTION: RAD - Chest Single View - 08/21/2023 9:10 pm CLINICAL HISTORY: CHEST PAIN Chest pain. COMPARISON: Chest Single View dated 07/20/2023; Chest Single View dated 03/02/2023; Chest Pa And Lat (2 Views) dated 02/15/2023; Chest Single View dated 11/24/2022 FINDINGS: Portable technique limits examination quality. The lungs are grossly clear. The heart is mildly enlarged in size. No displaced fractures. IMPRESSION: No acute intrathoracic process suspected. EXAM DESCRIPTION: RAD - Wrist Right 3 View - 08/21/2023 9:10 pm CLINICAL HISTORY: pain and swelling Pain COMPARISON: No comparisons FINDINGS: Soft tissue swelling is seen about the wrist. No fracture visualized. Periarticular osteopenia noted. Multiple erosions are seen involving the MCP joints as well as the base of the fifth metacarpal and ulnar styloid, suggesting inflammatory arthropathy. Conclusions/Impression: Stage I BRIDGER may be CRS CKD IV with Proteinuria -No NSAIDs -Continue furosemide Hyponatremia -Continue furosemide Hyperkalemia -Continue furosemide -Lokelma prn Metabolic Acidosis -Continue furosemide HTN with CKD/ CHF -Restart Entresto Systolic CHF, A/C -Continue furosemide -Restart Entresto Hx HCV with elevated viral load Hx alcohol abuse -Monitor LFT Anemia in chronic illness -Monitor H&H CKD MBD -Start Ergo Acute gouty arthritis -Continue Colchicine -Continue Prednisone -Start Allopurinol Hospitalist and ER notes reviewed Thank you kindly for the consultation
[2023-08-22] MEDS ORDERED: SACUBITRIL/VALSARTAN 24/26 MG TAB PO SCH (14:00)
[2023-08-22] MEDS: DOCUSATE NA 100 MG CAP PO SCH ×2 (14:00→20:43)
[2023-08-22] MEDS: allopurinoL 100 MG TAB PO SCH ×2 (14:00→20:43)
[2023-08-22] MEDS: SACUBITRIL/VALSARTAN 24/26 MG TAB PO SCH ×2 (14:00→20:43)
[2023-08-22] MEDS ORDERED: HYDROCODONE/APAP 5/325 MG TAB ONE (14:05)
[2023-08-22] MEDS ORDERED: DOCUSATE NA 100 MG CAP PO ONE (14:05)
[2023-08-22] MEDS: HYDROCODONE/APAP 5/325 MG TAB PO PRN ×2 (14:16→20:53)
[2023-08-22] MEDS: APIXABAN 5 MG TABLET PO SCH (20:43)
[2023-08-22] MEDS: ATORVASTATIN 40 MG TAB PO SCH (20:43)
[2023-08-22] MEDS: AMIODARONE HCL 200 MG TAB PO SCH (20:43)
[2023-08-23] MEDS: HYDROCODONE/APAP 5/325 MG TAB PO PRN ×2 (05:28→21:07)
[2023-08-23 07:18] LABS: Absolute Lymphocytes (CBC) 0.6 K/uL (0.7-4.9); Hematocrit 37.4 % (39.6-49.0); Lymphocytes % 6.3 % (15.3-44.8); MCV 79.3 fL (80-100); MPV 8.9 fL (7.6-11.3); Platelets 190 thou/uL (152-406); RBC Red Blood Cell Count 4.71 M/uL (4.33-5.43)
[2023-08-23 07:36] LABS: C-Reactive Protein 10.7 mg/L (<3.00); Magnesium 2.4 mg/dL (1.6-2.4); Potassium 5.3 mEq/L (3.5-5.1)
[2023-08-23 07:38] LABS: Blood Morphology Comment NOT SEEN (NOT SEEN); Platelet Estimate ADEQ; White Blood Cell Scan OK (OK)
[2023-08-23] MEDS ORDERED: DRISDOL (VITAMIN D=ERGOCALCIFEROL) 50000 UNIT CAP PO SCH (09:00)
[2023-08-23] MEDS ORDERED: AMIODARONE HCL 200 MG TAB PO SCH (09:00)
[2023-08-23] MEDS: SACUBITRIL/VALSARTAN 24/26 MG TAB PO SCH (09:00)
[2023-08-23] MEDS: APIXABAN 5 MG TABLET PO SCH ×2 (10:26→20:12)
[2023-08-23] MEDS: predniSONE 20 MG TAB PO SCH (10:26)
[2023-08-23] MEDS: COLCHICINE 0.6 MG TAB PO SCH (10:26)
[2023-08-23] MEDS: DOCUSATE NA 100 MG CAP PO SCH ×2 (10:26→20:12)
[2023-08-23] MEDS: FUROSEMIDE 40 MG/4 ML VIAL IV SCH ×2 (10:27→17:06)
[2023-08-23] MEDS: SODIUM ZIRCONIUM CYCLOSILICATE 10 GM/PKT PO SCH (10:30)
[2023-08-23] MEDS: AMIODARONE HCL 200 MG TAB PO SCH (10:57)
[2023-08-23] MEDS: allopurinoL 100 MG TAB PO SCH ×2 (10:57→20:12)
--- NOTE | 2023-08-23 10:59 | P.PN ---
Date of Service: 08/23/23 Subjective: Breathing improving; able to ambulate around the nursing station feels almost back to normal right wrist hand pain / swelling improving no acute events overnight ROS: 10 point ROS as noted above, otherwise negative Physical Exam: GEN: Alert, oriented, NAD HEENT: Normal conjunctiva, sclera anicteric CV: Regular rate and rhythm, trace-1+ b/l lower extremity edema Pulm: Nonlabored respirations on room air, diminished bilaterally at bases, clear ABD: Soft, nontender, nondistended Neuro: Normal speech, normal affect MSK: tenderness to palpation along wrist, most at base of thumb vitals reviewed Problem List: Acute on chronic systolic CHF (EF <20% 07/2023 @ [facility]) NSTEMI h/o CAD s/p stent (2018) h/o paroxysmal afib; Mural thrombus, on eliquis h/o alcoholic pancreatitis Acute gout / Hyperuricemia Right wrist pain / swelling CKD 3/4 Essential hypertension Acute on chronic systolic CHF (EF <20% 07/2023 @ [facility]) NSTEMI h/o CAD s/p stent (2018) troponins elevated, now downtrending. monitor on tele Cardiology consulted CXR (08/21): no acute intrathoracic process BNP 8k Most recent echo here September 2022: 30% EF, moderate global hypokinesis, left atrial enlargement, mild MR, mod TR Echo (July 2023) with EF < 20% at [facility] Reports having an appointment scheduled ~Sep 03- for EP study / defibrillator placement Continue IV lasix BID h/o paroxysmal afib; Mural thrombus, on eliquis resume home eliquis, amiodarone Acute gout/hyperuricemia Right wrist pain / swelling xray wrist (08/21): soft tissue swelling. No fracture visualized. Periarticular osteopenia. Multiple erosions are seen involving the MCP joints as well as the base of the fifth metacarpal and ulnar styloid, suggesting inflammatory arthropathy. Continue PO prednisone, oral colchicine continue Allopurinol, added 1/4 PRN Analgesics Avoid NSAIDs. CKD 3/4 Nephrology consulted - Sees Dr. Rossi Continue to monitor renal function. Continue IV lasix BID home med list noted torsemide 20 mg BID - prescribed a few weeks ago on dc from [facility] Essential hypertension Reconcile and continue home medications VTE: home eliquis Code: Full Dispo: home, ~1 day
--- NOTE | 2023-08-23 13:41 | P.PN ---
(S) Pt reports feeling much better, reports has been ambulatory in the hallways without dyspnea. Reports urinating well on IV lasix although has not been documented by nursing staff (O) Vitals reviewed in the EMR General: Alert, In no apparent distress, Oriented x3 HEENT: Atraumatic, Mucous membr. moist/pink Neck: Supple Respiratory: Normal air movement, Other (mildly diminished at bases) Cardiovascular: Non tachy, no cardiac gallop heart sounds appreciated Gastrointestinal: Mild distention, slightly firm, NT Musculoskeletal: Distal peripheral edema b/l Integumentary: No rashes, Neurological: Normal speech, Normal tone, Normal affect Conclusions/Impression: 1. Stage I BRIDGER with prior BRIDGER/ARF episodes without need for ENERGY TRADING ANALYST over the past 1- 1.5 years, on underlying CKD Stage IV 2nd to Type 1/2 CRS, other. UA on admission was not too impressive, no sig proteinuria on prior spot urine testing 2. Severe dilated cardiomyopathy, low EF state, pulm HTN 2nd to left sided heart disease, other. With his low GFR state and mild hyperkalemia, unclear if pt will tolerate even low dose Entresto and pt has missed prior f/u scheduled as OP. Will suspend for now and cont IV lasix, pt will require a higher dose of maintenance loop diuretics on discharge 3. Hyperkalemia, mild -will order Lokelma 4. Hyperuriciemia without mention of gout or inflammatory tophaecous disease -in the setting of chronic diuretic use, other. Cont Allopurinol
--- NOTE | 2023-08-23 13:41 | EKG ---
Test Date: 2023-08-21 Test Time: 20:37:05 Mission Analyst: AGNIESZKA MEASUREMENT RESULTS: Intervals: Rate: 86 ND: 262 QRSD: 138 QT: 408 QTc: 488 [place]: P: 83 ND: 262 QRS: -70 T: 86 INTERPRETIVE STATEMENTS: Sinus rhythm with 1st degree AV block Left axis deviation Left bundle branch block Abnormal ECG Compared to ECG 07/20/2023 18:48:56 Atrial premature complex(es) no longer present Electronically Signed On 08-23-23 13:39:14 BRASS MOLDER HELPER by Shamar De Guzman
[2023-08-23] MEDS: ATORVASTATIN 40 MG TAB PO SCH (20:12)
[2023-08-24 04:09] LABS: Absolute Lymphocytes (CBC) 0.5 K/uL (0.7-4.9); Hematocrit 37.2 % (39.6-49.0); Lymphocytes % 5.3 % (15.3-44.8); MCV 79.1 fL (80-100); MPV 8.9 fL (7.6-11.3); Platelets 199 thou/uL (152-406)
[2023-08-24 04:30] LABS: Bilirubin Total 0.8 mg/dL (0.2-1.0); C-Reactive Protein 6.06 mg/L (<3.00); Magnesium 2.1 mg/dL (1.6-2.4); Potassium 4.7 mEq/L (3.5-5.1); Protein, Total 7.8 g/dL (6.4-8.2)
--- NOTE | 2023-08-24 09:05 | P.DS ---
Admission Date: 08/21/23 Discharge Date: 08/24/23 Disposition: ROUTINE DISCHARGE Discharge Condition: GOOD Reason for Admission: Shortness of breath and abdominal distention Consultations: Cardiology - Dr. De Guzman Nephrology - Dr. Misha Hinton Brief History of Present Illness: 63yo M, PMH: advanced heart failure, cardiac thrombosis Patient presented to the emergency department with a complaint of abdominal distention, shortness of breath and swelling of the right hand and wrist of 5 days duration. Patient states he is not on any Lasix maintenance. Chest x-ray. No pulmonary congestion. Patient's abdomen is distended. He is stable on room air. Troponin elevated to 832. UricAcid elevated. Patient reports history of gout. EKG shows left bundle branch block which is old. The patient is hospitalized for further management. Hospital Course: Problem List: Acute on chronic systolic CHF (EF <20% 07/2023 @ [facility]) NSTEMI secondary to demand ischemia h/o CAD s/p stent (2018) h/o paroxysmal afib; Mural thrombus, on eliquis h/o alcoholic pancreatitis Right wrist pain / swelling secondary to Acute gout Hyperuricemia CKD 3/4 Essential hypertension Patient presented with shortness of breath, right hand wrist swelling / pain, felt to have a mild CHF exacerbation and concern for gout attack on hand. Treated with IV diuretics and prednisone. Troponins were elevated but trended flat. BNP 8k. EKG noted old left bundle branch block. CXR negative for any acute intrathoracic process. Cardiology and nephrology were consulted. Patient was given IV lasix and had improvement of his edema and breathing. On further chart review patient was noted to be recently hospitalized for ~1 week at [facility] (July 2023). Echo at [facility] with EF < 20%. Patient noted to be discharged from [facility] with new prescription for torsemide 20 mg BID. Patient also reported he was told he needed to follow up for Electrophysiology study / defibrillator placement, for which he has appointments in the next 1-2 weeks. On day of discharge, patient was feeling better, ambulating without issue, breathing comfortably on room air. right hand swelling had significantly improved, as well as pain. Discussed with nephrology. His renal function was monitored and remained stable, with Cr: 3.41. Recommended increasing home torsemide from 20mg twice daily to 40mg twice daily. Advised to repeat blood work in ~1-2 week to recheck renal function. Creatinine on discharge: 3.41 In regard to wrist pain / swelling: xray wrist (08/21): soft tissue swelling. No fracture visualized. Periarticular osteopenia. Multiple erosions are seen involving the MCP joints as well as the base of the fifth metacarpal and ulnar styloid, suggesting inflammatory arthro fani. Patient noted to have history of gout and suspect acute gout flare up. Patient received oral prednisone and wrist swelling / pain quickly improved. Patient is to complete 10 days of prednisone tapering. Medications: Prednisone taper for 10 days Torsemide increased to 40 mg twice daily from 20mg continue other home medications as prescribed from [facility] except change of toresmide. Follow up: PCP 3-5 days Cardiology as previously discussed for Electrophysiology study / defibrillator Reports having appointment but unsure if it was covered by insurance. If not in network / covered by insurance advised to follow up with PCP (Dr. Hayes) to find cardiology / specialist in network Physical Exam: GEN: Alert, oriented, NAD HEENT: Normal conjunctiva, sclera anicteric CV: Regular rate and rhythm, trace b/l pedal edema Pulm: Nonlabored respirations on room air, diminished bilaterally at bases, clear ABD: Soft, nontender, nondistended Neuro: Normal speech, normal affect MSK: minimal tenderness to palpation along wrist, most at base of thumb Vital Signs/Physical Exam: Temp Pulse Resp BP Pulse Ox 97.7 F 76 14 119/74 97 08/24/23 04:00 08/24/23 04:00 08/24/23 04:00 08/24/23 04:00 08/24/23 04:00 Laboratory Data at Discharge: WBC 8.80 thou/uL (4.3-10.9) 08/24/23 03:58 Hgb 12.4 g/dL (13.6-17.9) L 08/24/23 03:58 Hct 37.2 % (39.6-49.0) L 08/24/23 03:58 Plt Count 199 thou/uL (152-406) 08/24/23 03:58 PT 17.5 SECONDS (9.5-12.5) H 08/21/23 20:45 INR 1.61 08/21/23 20:45 Sodium 132 mEq/L (136-145) L 08/24/23 03:58 Potassium 4.7 mEq/L (3.5-5.1) 08/24/23 03:58 BUN 74 mg/dL (7-18) H 08/24/23 03:58 Creatinine 3.41 mg/dL (0.70-1.30) H 08/24/23 03:58 Glucose 157 mg/dL (74-106) H 08/24/23 03:58 Uric Acid 11.6 mg/dL (3.5-7.2) H 08/21/23 20:45 Phosphorus 3.9 mg/dL (2.5-4.9) 08/22/23 03:57 Magnesium 2.1 mg/dL (1.6-2.4) 08/24/23 03:58 Total Bilirubin 0.8 mg/dL (0.2-1.0) 08/24/23 03:58 AST 25 U/L (15-37) 08/24/23 03:58 ALT 23 U/L (16-61) 08/24/23 03:58 Alkaline Phosphatase 294 U/L (45-117) H 08/24/23 03:58 Home Medications: Pantoprazole [Protonix Tab*] 40 mg PO DAILY #30 tab 09/06/21 Atorvastatin Calcium [Lipitor] 40 mg PO BEDTIME #30 tab 10/15/22 Aspirin [Aspirin EC] 81 mg PO DAILY #30 tab 10/29/22 Amiodarone HCl [Cordarone*] 200 mg PO DAILY 08/22/23 Apixaban [Eliquis] 5 mg PO BID 08/22/23 Calcium Acetate 667 mg PO DAILY 08/22/23 Ferrous Sulfate 325 mg PO DAILY 08/22/23 Hydralazine HCl 100 mg PO Q8HR 08/22/23 Isosorbide Dinit [Isordil*] 20 mg PO TID 08/22/23 Sofosbuvir/Velpatasvir [Epclusa 400 mg-100 mg Tablet] 1 each PO DAILY 08/22/23 Torsemide [Soaanz] 40 mg PO BID 30 Days #60 tab 08/24/23 predniSONE [Prednisone*] 20 mg PO SEECOM 11 Days #8 tab 08/24/23 New Medications: predniSONE [Prednisone*] 20 mg PO SEECOM 11 Days #8 tab Torsemide [Soaanz] 40 mg PO BID 30 Days #60 tab Physician Discharge Instructions: Patient presented with shortness of breath, right hand wrist swelling / pain, felt to have a mild CHF exacerbation and concern for gout attack on hand. Treated with IV diuretics and prednisone. Troponins were elevated but trended flat. BNP 8k. EKG noted old left bundle branch block. CXR negative for any acute intrathoracic process. Cardiology and nephrology were consulted. Patient was given IV lasix and had improvement of his edema and breathing. On further chart review patient was noted to be recently hospitalized for ~1 week at [facility] (July 2023). Echo at [facility] with EF < 20%. Patient noted to be discharged from [facility] with new prescription for torsemide 20 mg BID. Patient also reported he was told he needed to follow up for Electrophysiology study / defibrillator placement, for which he has appointments in the next 1-2 weeks. On day of discharge, patient was feeling better, ambulating without issue, breathing comfortably on room air. right hand swelling had significantly improved, as well as pain. Discussed with nephrology. His renal function was monitored and remained stable, with Cr: 3.41. Recommended increasing home torsemide from 20mg twice daily to 40mg twice daily. Advised to repeat blood work in ~1-2 week to recheck renal function. Creatinine on discharge: 3.41 In regard to wrist pain / swelling: xray wrist (08/21): soft tissue swelling. No fracture visualized. Periarticular osteopenia. Multiple erosions are seen involving the MCP joints as well as the base of the fifth metacarpal and ulnar styloid, suggesting inflammatory arthropathy. Patient noted to have history of gout and suspect acute gout flare up. Patient received oral prednisone and wrist swelling / pain quickly improved. Patient is to complete 10 days of prednisone tapering. Medications: Prednisone taper for 10 days Torsemide increased to 40 mg twice daily from 20mg continue other home medications as prescribed from [facility] except change of toresmide. Follow up: PCP 3-5 days Cardiology as previously discussed for Electrophysiology study / defibrillator Reports having appointment but unsure if it was covered by insurance. If not in network / covered by insurance advised to follow up with PCP (Dr. Hayes) to find cardiology / specialist in network Followup: Anton Hayes DO [Primary Care Provider] - Time spent managing pt's care (in minutes): 45
[2023-08-24] MEDS: allopurinoL 100 MG TAB PO SCH (09:47)
[2023-08-24] MEDS: AMIODARONE HCL 200 MG TAB PO SCH (09:47)
[2023-08-24] MEDS: DOCUSATE NA 100 MG CAP PO SCH (09:47)
[2023-08-24] MEDS: FUROSEMIDE 40 MG/4 ML VIAL IV SCH (09:47)
[2023-08-24] MEDS: predniSONE 20 MG TAB PO SCH (09:47)
[2023-08-24] MEDS: APIXABAN 5 MG TABLET PO SCH (09:47)
[2023-08-24] MEDS: COLCHICINE 0.6 MG TAB PO SCH (10:01)
[2023-08-24] MEDS: SODIUM ZIRCONIUM CYCLOSILICATE 10 GM/PKT PO SCH (10:02)
[2023-08-24] MEDS: HYDROCODONE/APAP 5/325 MG TAB PO PRN (11:52)
[2023-08-24 12:02] VITALS: O2SAT 97
[2023-08-24 12:38] VITALS: BP 148/100; TEMP 97.2
--- NOTE | 2023-08-24 12:44 | P.PN ---
Date of Service: 08/24/23 Vital Signs Temp Pulse Resp BP Pulse Ox 97.2 F 95 H 16 148/100 H 99 08/24/23 12:00 08/24/23 12:00 08/24/23 12:00 08/24/23 12:00 08/24/23 12:00 Medications Acetaminophen (Acetaminophen 650mg/Rect Supp) 650 mg DC Q6HP PRN PRN Reason: TEMP > 100' F Hydrocodone Bitart/Acetaminophen (Hydrocodone/Apap 5/325 Mg Tab) 1 tab PO Q6H PRN PRN Reason: Pain scale 5-7 (Moderate) Last Admin: 08/24/23 11:52 Dose: 1 tab Allopurinol (Allopurinol 100 Mg Tab) 100 mg PO BID [facility] Last Admin: 08/24/23 09:47 Dose: 100 mg Amiodarone HCl (Amiodarone Hcl 200 Mg Tab) 200 mg PO DAILY [facility] Last Admin: 08/24/23 09:47 Dose: 200 mg Apixaban (Apixaban 5 Mg Tablet) 5 mg PO BID [facility] Last Admin: 08/24/23 09:47 Dose: 5 mg Atorvastatin Calcium (Atorvastatin 40 Mg Tab) 40 mg PO BEDTIME [facility] Last Admin: 08/23/23 20:12 Dose: 40 mg Colchicine (Colchicine 0.6 Mg Tab) 0.6 mg PO DAILY [facility] Last Admin: 08/24/23 10:01 Dose: 0.6 mg Docusate Sodium (Docusate Na 100 Mg Cap) 100 mg PO BID [facility] Last Admin: 08/24/23 09:47 Dose: 100 mg Ergocalciferol (Drisdol (Vitamin D=Ergocalciferol) 48244 Unit Cap) 50,000 unit PO Q48H [facility] Stop: 08/25/23 09:01 Last Admin: 08/23/23 10:26 Dose: 50,000 unit Furosemide (Furosemide 40 Mg/4 Ml Vial) 40 mg IV BIDL [facility] Last Admin: 08/24/23 09:47 Dose: 40 mg Ondansetron HCl (Ondansetron 4 Mg/2 Ml Vial) 4 mg IV Q6HP PRN PRN Reason: NAUSEA / VOMITING Prednisone (Prednisone 20 Mg Tab) 40 mg PO DAILY [facility] Last Admin: 08/24/23 09:47 Dose: 40 mg Microbiology Results 08/21/23 20:45 Nasopharnyx Influenza Type A Antigen Screen - Final 08/21/23 20:45 Nasopharnyx Influenza Type B Antigen Screen - Final Assessment/ Plan: Nephrology Feeling much better No dyspnea No chest pain No acute events overnight Vitals, medications, blood work and imaging reviewed in the chart General: In no apparent distress, Oriented x3, Cooperative HEENT: Atraumatic Neck: Supple Respiratory: Clear to auscultation bilaterally Cardiovascular: Edema (trace) Gastrointestinal: Soft and benign, Non-distended Musculoskeletal: No clubbing, No contractures, Swelling, Tenderness Integumentary: No rashes, No cyanosis Neurological: Normal speech Laboratory Data (last 24 hrs) 08/21/23 08/21/23 08/21/23 20:45 20:45 20:45 WBC 4.50 Hgb 11.9 L Hct 36.0 L Plt Count 201 PT 17.5 H INR 1.61 Sodium 136 Potassium 4.5 BUN 46 H Creatinine 3.30 H Glucose 119 H Uric Acid 11.6 H Magnesium 2.4 Total Bilirubin 1.1 H AST 37 ALT 25 Alkaline Phosphatase 352 H Imagings Data: EXAM DESCRIPTION: RAD - Chest Single View - 08/21/2023 9:10 pm CLINICAL HISTORY: CHEST PAIN Chest pain. COMPARISON: Chest Single View dated 07/20/2023; Chest Single View dated 03/02/2023; Chest Pa And Lat (2 Views) dated 02/15/2023; Chest Single View dated 11/24/2022 FINDINGS: Portable technique limits examination quality. The lungs are grossly clear. The heart is mildly enlarged in size. No displaced fractures. IMPRESSION: No acute intrathoracic process suspected. EXAM DESCRIPTION: RAD - Wrist Right 3 View - 08/21/2023 9:10 pm CLINICAL HISTORY: pain and swelling Pain COMPARISON: No comparisons FINDINGS: Soft tissue swelling is seen about the wrist. No fracture visualized. Periarticular osteopenia noted. Multiple erosions are seen involving the MCP joints as well as the base of the fifth metacarpal and ulnar styloid, suggesting inflammatory arthropathy. Conclusions/Impression: Stage I BRIDGER may be CRS CKD IV with Proteinuria -No NSAIDs -Continue furosemide Hyponatremia -Continue furosemide Hyperkalemia -Continue furosemide -Lokelma as ordered Metabolic Acidosis -Continue furosemide HTN with CKD/ CHF -Continue Entresto Systolic CHF, A/C -Continue furosemide; plan for outpt torsemide -Continue Entresto Hx HCV with elevated viral load Hx alcohol abuse -Monitor LFT Anemia in chronic illness -Monitor H&H CKD MBD -Continue Ergo Acute gouty arthritis -Continue Colchicine prn -Wean Prednisone -Continue Allopurinol Hospitalist note reviewed Case discussed with Dr. Jha
== END 2023-08-24 15:49 | disposition home or self-care (01) | DRG 280 ==
LOC: ER 20:12 → ERHOLD 22:42 → 2ND 08-22 16:50
PROVIDERS: ADMIT Internal Medicine; ATTEND Hospitalist
DX: I13.0 Hypertensive heart and chronic kidney disease with heart failure and stage 1 through stage 4 chronic kidney disease, or unspecified chronic kidney disease (principal); I50.23 Acute on chronic systolic (congestive) heart failure; I21.A1 Myocardial infarction type 2; N18.4 Chronic kidney disease, stage 4 (severe); N17.9 Acute kidney failure, unspecified; E87.1 Hypo-osmolality and hyponatremia; E87.20 Acidosis, unspecified; D63.1 Anemia in chronic kidney disease; I42.6 Alcoholic cardiomyopathy; M10.9 Gout, unspecified; I48.0 Paroxysmal atrial fibrillation; M19.90 Unspecified osteoarthritis, unspecified site; D63.8 Anemia in other chronic diseases classified elsewhere; M06.9 Rheumatoid arthritis, unspecified; M25.531 Pain in right wrist; I44.0 Atrioventricular block, first degree; E87.6 Hypokalemia; I27.22 Pulmonary hypertension due to left heart disease; I42.0 Dilated cardiomyopathy; I44.7 Left bundle-branch block, unspecified; I25.2 Old myocardial infarction; I25.10 Atherosclerotic heart disease of native coronary artery without angina pectoris; R77.8 Other specified abnormalities of plasma proteins; Z88.0 Allergy status to penicillin; Z95.5 Presence of coronary angioplasty implant and graft; Z86.73 Personal history of transient ischemic attack (TIA), and cerebral infarction without residual deficits; Z11.52 Encounter for screening for COVID-19; Z79.01 Long term (current) use of anticoagulants; Z79.82 Long term (current) use of aspirin; Z79.899 Other long term (current) drug therapy
CPT/HCPCS: 36415; 71045; 80048; 80053; 80076; 83735; 83880; 84100; 84484; 84550; 85025; 85610; 86140; 87635; 87804; 93005; 94760; 99285; J1940; J2405; J7512; Q0169

== ENCOUNTER 2023-10-13 08:05 | Observation (INO) | payer OTHER ==
[2023-10-13] MEDS ORDERED: ONDANSETRON 4 MG/2 ML VIAL ONE (09:01)
[2023-10-13] MEDS ORDERED: MORPHINE 4 MG/ML SYR ONE (09:02)
[2023-10-13] MEDS ORDERED: NA CHLORIDE 0.9% 1,000 ML ONE ×3 (09:02→18:28)
[2023-10-13 09:17] LABS: Hematocrit 37.7 % (39.6-49.0); MCV 80.1 fL (80-100)
[2023-10-13 09:18] LABS: Absolute Lymphocytes (CBC) 0.9 K/uL (0.7-4.9); Lymphocytes % 15.4 % (15.3-44.8); MPV 8.5 fL (7.6-11.3); Platelets 179 thou/uL (152-406)
[2023-10-13 09:19] LABS: Protime INR 1.14
--- NOTE | 2023-10-13 09:24 | RAD REPORT ---
EXAM DESCRIPTION: CT - Chest Abd Pelvis Wo Con - 10/13/2023 8:59 am CLINICAL HISTORY: Chest, abdomen and back pain COMPARISON: 2022 TECHNIQUE: Computed axial tomography of the chest, abdomen and pelvis was obtained. Oral contrast wa s given. IV contrast was not requested. All CT scans are performed using dose optimization technique as appropriate and may include automated exposure control or mA/KV adjustment according to patient size. FINDINGS: The evaluation of mediastinum, nikolai, vessels and solid organs is limited secondary to the lack of IV contrast administration The lungs are clear No mediastinal or hilar lymphadenopathy is seen. A small pericardial effusion The pericardial effusion is not seen. Mildly cirrhotic liver suspected. Small amount ascites Spleen, pancreas, adrenals and left kidney kidneys appear grossly normal. Small low-density right reno al mass is nonspecific but probably a cyst There is no evidence of diverticulitis. Spondylosis lower lumbar spine results in severe central spinal stenosis Small to moderate umbilical hernia. Small to moderate bilateral inguinal hernias IMPRESSION: Small pericardial effusion Mildly cirrhotic liver suspected. Small amount ascites Spondylosis lower lumbar spine results in severe central spinal stenosis
[2023-10-13 09:35] LABS: Albumin 3.3 g/dL (3.4-5.0); Bilirubin Direct 0.6 mg/dL (0-0.2); Bilirubin Indirect, Calculated 0.5 mg/dL (0.2-0.8); Bilirubin Total 1.1 mg/dL (0.2-1.0); Magnesium 2.4 mg/dL (1.6-2.4); Potassium 4.2 mEq/L (3.5-5.1); Protein, Total 8.6 g/dL (6.4-8.2)
[2023-10-13 09:47] LABS: White Blood Cell Scan OK (OK)
[2023-10-13 09:48] LABS: Anisocytosis 1+; Blood Morphology Comment NOTED (NOT SEEN); Platelet Estimate ADEQ
--- NOTE | 2023-10-13 10:07 | RAD REPORT ---
EXAM DESCRIPTION: Catarina Single View10/13/2023 9:18 am CLINICAL HISTORY: Chest pain COMPARISON: August 2023 FINDINGS: The lungs appear clear of acute infiltrate. The heart is mildly to moderately enlarged IMPRESSION: No acute abnormalities displayed
[2023-10-13 10:36] LABS: Specific Gravity 1.015 (1.005-1.030); Urine Bacteria None Seen /HPF (<20); Urine Bilirubin NEGATIVE (Negative); Urine Blood Negative (Negative); Urine Clarity Clear (Clear); Urine Color Yellow (Yellow); Urine Glucose 1+ (Negative); Urine Protein 2+ (Negative); Urine RBC <5 /HPF (None Seen); Urine Urobilinogen 1+ (Normal); Urine pH 5.5 (5.0-7.0)
--- NOTE | 2023-10-13 11:26 | EDPHYS ---
Physician Documentation [facility] Name: Natan Paulino Age: 63 yrs Sex: Male : 1960 Arrival Date: 10/13/2023 Time: 08:05 Bed 5 Private MD: Anton Hayes ED Physician Brandon Masterson HPI: 10/13 08:37 This 63 yrs old Black Male presents to ER via Ambulatory with complaints of Back Pain. deejay 08:37 The patient presents with pain that is acute, with no known mechanism of injury. The deejay symptoms are located in the low back, left low back and left mid back. Onset: The symptoms/episode began/occurred 2 day(s) ago. The pain radiates to the left low back and left mid back. Associated signs and symptoms: The patient has no apparent associated signs or symptoms. The problem was sustained from unknown cause. Modifying factors: The patient symptoms are alleviated by remaining still, the patient symptoms are aggravated by any movement. Severity of symptoms: At their worst the symptoms were moderate, in the emergency department the symptoms are unchanged. The patient has not experienced similar symptoms in the past. Historical: - Allergies: 08:17 PENICILLINS; ll1 - PMHx: 08:17 CHF; Gout; Hypertension; Myocardial infarction; osteoarthritis; Pancreatitis; ll1 Rheumatoid Arthritis; stroke; TIA; - PSHx: 08:17 finger; heart stent; Stented artery; ll1 - Immunization history:: Adult Immunizations up to date. - Social history:: Smoking status: Patient denies any tobacco usage or history of. - Family history:: not pertinent. ROS: 08:37 Constitutional: Negative for fever, chills, and weight loss, Eyes: Negative for injury, deejay pain, redness, and discharge, ENT: Negative for injury, pain, and discharge, Neck: Negative for injury, pain, and swelling, Cardiovascular: Negative for chest pain, palpitations, and edema, Respiratory: Negative for shortness of breath, cough, wheezing, and pleuritic chest pain, Abdomen/GI: Negative for abdominal pain, nausea, vomiting, diarrhea, and constipation, : Negative for injury, bleeding, discharge, and swelling, MS/Extremity: Negative for injury and deformity, Skin: Negative for injury, rash, and discoloration, Neuro: Negative for headache, weakness, numbness, tingling, and seizure, Psych: Negative for depression, anxiety, suicide ideation, homicidal ideation, and hallucinations, Allergy/Immunology: Negative for hives, rash, and allergies, Endocrine: Negative for neck swelling, polydipsia, polyuria, polyphagia, and marked weight changes, Hematologic/Lymphatic: Negative for swollen nodes, abnormal bleeding, and unusual bruising, 08:37 Back: Positive for injury or acute deformity, decreased range of motion, pain at rest, pain with movement, flank pain, on the left, Exam: 08:37 Constitutional: This is a well developed, well nourished patient who is awake, alert, deejay and in no acute distress. Head/Face: Normocephalic, atraumatic. Eyes: Pupils equal round and reactive to light, extra-ocular motions intact. Lids and lashes normal. Conjunctiva and sclera are non-icteric and not injected. Cornea within normal limits. Periorbital areas with no swelling, redness, or edema. ENT: Nares patent. No nasal discharge, no septal abnormalities noted. Tympanic membranes are normal and external auditory canals are clear. Oropharynx with no redness, swelling, or masses, exudates, or evidence of obstruction, uvula midline. Mucous membranes moist. Neck: Trachea midline, no thyromegaly or masses palpated, and no cervical lymphadenopathy. Supple, full range of motion without nuchal rigidity, or vertebral point tenderness. No Meningismus. Chest/axilla: Normal chest wall appearance and motion. Nontender with no deformity. No lesions are appreciated. Cardiovascular: Regular rate and rhythm with a normal S1 and S2. No gallops, murmurs, or rubs. Normal PMI, no JVD. No pulse deficits. Respiratory: Lungs have equal breath sounds bilaterally, clear to auscultation and percussion. No rales, rhonchi or wheezes noted. No increased work of breathing, no retractions or nasal flaring. Abdomen/GI: Soft, non-tender, with normal bowel sounds. No distension or tympany. No guarding or rebound. No evidence of tenderness throughout. Male : Normal genitalia with no discharge or lesions. Skin: Warm, dry with normal turgor. Normal color with no rashes, no lesions, and no evidence of cellulitis. MS/ Extremity: Pulses equal, no cyanosis. Neurovascular intact. Full, normal range of motion. Neuro: Awake and alert, GCS 15, oriented to person, place, time, and situation. Cranial nerves II-XII grossly intact. Motor strength 5/5 in all extremities. Sensory grossly intact. Cerebellar exam normal. Normal gait. Psych: Awake, alert, with orientation to person, place and time. Behavior, mood, and affect are within normal limits. 08:37 Back: pain, that is moderate, ROM is painful, with rotation to the right, with rotation to the left, with flexion, with extension, normal spinal alignment noted, CVA tenderness, that is mild, that is moderate, vertebral tenderness, is not appreciated, muscle spasm, is appreciated in the left low back, left mid back, right mid back and right low back, 11:21 ECG was reviewed by the Attending Physician. [facility] Vital Signs: 08:25 BP 150 / 102; Pulse 82; Resp 18; Temp 97.5; Pulse Ox 100% on R/A; Weight 89.81 kg; ll1 Height 6 ft. 3 in. ; Pain 10/10; 10:59 Pulse 75; Pulse Ox 100% on R/A; ll1 11:28 BP 148 / 104; Pulse 75; Resp 16; Pulse Ox 99% on R/A; ll1 12:59 BP 149 / 101; Pulse 69; Resp 19; Temp 98.1(O); Pulse Ox 100% ; Pain 10/10; tl4 14:38 BP 158 / 114; Pulse 66; Resp 18; Temp 97.9(TE); Pulse Ox 100% on R/A; Pain 6/10; tl4 08:25 Body Mass Index 24.75 (89.81 kg, 190.5 cm) ll1 08:25 Pain Scale: Adult ll1 12:59 Pain Scale: Adult tl4 14:38 Pain Scale: Adult tl4 Telly Coma Score: 12:59 Eye Response: spontaneous(4). Motor Response: obeys commands(6). Verbal Response: tl4 oriented(5). Total: 15. 14:38 Eye Response: spontaneous(4). Motor Response: obeys commands(6). Verbal Response: tl4 oriented(5). Total: 15. MDM: 08:10 Patient medically screened. deejay 08:40 Differential diagnosis: arthritis, chronic back pain, Fatigue Hydronephrosis Obesity deejay Renal Infarction ruptured disc. Data reviewed: vital signs, nurses notes, lab test result(s), EKG, radiologic studies, CT scan, plain films. Consideration of Admission/Observation Escalation of care including admission/observation considered. I considered the following discharge prescriptions or medication management in the emergency department Medications were administered in the Emergency Department. See MAR. Independent interpretation of the following test(s) in the Emergency Department EKG: See my EKG interpretation above. Test considered but Not performed: Ultrasound no abd usg. 10/13 08:36 Order name: Basic Metabolic Panel; Complete Time: 11:10 [facility] 10/13 08:36 Order name: CBC with Diff; Complete Time: 09:57 [facility] 10/13 08:36 Order name: LFT's; Complete Time: 11: [facility] 10/13 08:36 Order name: Magnesium; Complete Time: 11: [facility] 10/13 08:36 Order name: NT PRO-BNP; Complete Time: 11: [facility] 10/13 08:36 Order name: PT-INR; Complete Time: 09:57 [facility] 10/13 08:36 Order name: Troponin HS; Complete Time: 11: [facility] 10/13 08:36 Order name: Lipase; Complete Time: 11: [facility] 10/13 08:36 Order name: Urinalysis w/ reflexes; Complete Time: 11: [facility] 10/13 09:20 Order name: CBC Smear Scan; Complete Time: 09:57 [facility] 10/13 12:07 Order name: Troponin High Sensitivity [facility] 10/13 12:07 Order name: CBC with Automated Diff [facility] 10/13 12:07 Order name: CBC with Automated Diff [facility] 10/13 12:07 Order name: Comprehensive Metabolic Panel [facility] 10/13 12:07 Order name: Comprehensive Metabolic Panel [facility] 10/13 12:07 Order name: Lipid Profile [facility] 10/13 12:07 Order name: Lipid Profile [facility] 10/13 12:07 Order name: Protime (+INR) [facility] 10/13 12:07 Order name: Protime (+INR) [facility] 10/13 12:07 Order name: PTT, Activated Partial Thromb [facility] 10/13 12:07 Order name: PTT, Activated Partial Thromb [facility] 10/13 12:07 Order name: Troponin High Sensitivity [facility] 10/13 12:07 Order name: Troponin High Sensitivity [facility] 10/13 08:36 Order name: XRAY Chest (1 view); Complete Time: 11:10 [facility] 10/13 08:36 Order name: CT Chest Abdomen Pelvis W/O Contrast; Complete Time: 09:57 [facility] 10/13 08:36 Order name: EKG; Complete Time: 08:36 [facility] 10/13 08:36 Order name: Cardiac monitoring; Complete Time: 09:28 [facility] 10/13 08:36 Order name: EKG - Nurse/Tech; Complete Time: 09:28 [facility] 10/13 08:36 Order name: IV Saline Lock; Complete Time: 09:10 [facility] 10/13 08:36 Order name: Labs collected and sent; Complete Time: 09:10 [facility] 10/13 08:36 Order name: O2 Per Protocol; Complete Time: 09:00 [facility] 10/13 08:36 Order name: O2 Sat Monitoring; Complete Time: 09:00 [facility] EC:21 Rate is 80 beats/min. Rhythm is regular. QRS Kimberly is Normal. GA interval is prolonged [facility] at 234 msec. QRS interval is normal. No Q waves. T waves are Normal. No ST changes noted. Clinical impression: NSR w/ Non-specific ST/T Changes, 1st degree heart block, and No evidence of ischemia. Interpreted by me. Reviewed by me. Administered Medications: 09:09 Drug: NS 0.9% IV 500 ml IV at bolus once Route: IV; Rate: bolus; Site: right forearm; [facility] 11:29 Follow up: Response: No adverse reaction; IV Status: Completed infusion; IV Intake: ll1 500ml 09:09 Drug: morphine IVP or IV 4 mg IVP once over 4 mins Route: IVP; Infused Over: 4 mins; [facility] Site: right forearm; 11:29 Follow up: Response: No adverse reaction; Pain is decreased; RASS: Alert and Calm (0) [facility] 09:10 Drug: Ondansetron IVP 4 mg IVP once; over 2 minutes Route: IVP; Site: right forearm; [facility] 11:29 Follow up: Response: No adverse reaction [facility] 09:20 Drug: NS 0.9% IV 1000 ml IV at 125 ml/hr continuous Route: IV; Rate: 125 ml/hr; Site: ll1 right forearm; 17:59 Follow up: Urine output 300 ml; IV Status: Infusion continued upon admission tl4 Disposition Summary: 10/13/23 11:25 Hospitalization Ordered Notes: Hospitalization Status: Observation deejay Provider: Abram Cerrato cha Condition: Fair deejay Problem: new deejay Symptoms: have improved deejay Bed/Room Type: Standard deejay Location: Intensive Care Unit(10/13/23 17:21) sp Room Assignment: 5-(10/13/23 17:21) sp Diagnosis - Chronic kidney disease, unspecified deejay - Non ST elevation [place] deejay - Unspecified symptoms and signs involving the musculoskeletal system deejay Forms: - Medication Reconciliation Form deejay - SBAR form deejay - Leadership Thank You Letter deejay Signatures: Dispatcher [employer] EDBrandon Scott MD MD cha Pinkerton, Shawna sp Lewis, Lynsay, RN RN ll1 Kj Gama RN tl4 Corrections: (The following items were deleted from the chart) 14:21 11:25 deejay sp 17:21 11:25 Telemetry/MedSurg (observation) deejay sp 17:21 14:21 420 sp sp
--- NOTE | 2023-10-13 11:26 | ER ---
Nurse's Notes [facility] Name: Natan Paulino Age: 63 yrs Sex: Male : 1960 Arrival Date: 10/13/2023 Time: 08:05 Bed 5 Private MD: Anton Hayes Diagnosis: Chronic kidney disease, unspecified;Non ST elevation [place];Unspecified symptoms and signs involving the musculoskeletal system Presentation: 10/13 08:18 Chief complaint: Patient states: Severe back pain, L side for 2 days. Believes its his ll1 kidney. Coronavirus screen: Client denies travel out of the [place] in the last 14 days. At this time, the client does not indicate any symptoms associated with coronavirus-19. Ebola Screen: Patient denies travel to an Ebola-affected area in the 21 days before illness onset. Initial Sepsis Screen: Does the patient meet any 2 criteria? No. Patient's initial sepsis screen is negative. Does the patient have a suspected source of infection? No. Patient's initial sepsis screen is negative. Risk Assessment: Do you want to hurt yourself or someone else? Patient reports no desire to harm self or others. 08:18 Method Of Arrival: Ambulatory ll1 08:18 Acuity: NINO 3 ll1 08:25 Onset of symptoms was October 12, 2023. 1 Triage Assessment: 08:26 General: Appears uncomfortable, Behavior is calm, cooperative, appropriate for age. ll1 Pain: Complains of pain in L back Quality of pain is described as aching. : Reports kidney problems. Musculoskeletal: Circulation, motion, and sensation intact. Capillary refill < 3 seconds, Reports pain in back. Injury Description: no injury. Historical: - Allergies: 08:17 PENICILLINS; ll1 - PMHx: 08:17 CHF; Gout; Hypertension; Myocardial infarction; osteoarthritis; Pancreatitis; ll1 Rheumatoid Arthritis; stroke; TIA; - PSHx: 08:17 finger; heart stent; Stented artery; ll1 - Immunization history:: Adult Immunizations up to date. - Social history:: Smoking status: Patient denies any tobacco usage or history of. - Family history:: not pertinent. Screenin:27 [facility] ED Fall Risk Assessment (Adult) Score/Fall Risk Level 0 - 2 = Low Risk ll1 Oriented to surroundings, Maintained a safe environment, Educated pt \T\ family on fall prevention, incl call for assistance when getting out of bed, Hourly rounding (assess needs \T\ fall precautionary measures) done. Abuse screen: Denies threats or abuse. Nutritional screening: No deficits noted. Tuberculosis screening: No symptoms or risk factors identified. Assessment: 09:21 Reassessment: No changes from previously documented assessment. Patient and/or family ll1 updated on plan of care and expected duration. Pain level reassessed. Patient is alert, oriented x 3, equal unlabored respirations, skin warm/dry/pink. 10:20 Reassessment: No changes from previously documented assessment. Patient and/or family ll1 updated on plan of care and expected duration. Pain level reassessed. Patient is alert, oriented x 3, equal unlabored respirations, skin warm/dry/pink. 11:28 Reassessment: No changes from previously documented assessment. Patient and/or family ll1 updated on plan of care and expected duration. Pain level reassessed. Patient is alert, oriented x 3, equal unlabored respirations, skin warm/dry/pink. Dr. Cerrato at . 12:59 Reassessment: No changes from previously documented assessment. Patient and/or family tl4 updated on plan of care and expected duration. Pain level reassessed. Patient is alert, oriented x 3, equal unlabored respirations, skin warm/dry/pink. Neuro: No deficits noted. Denies weakness difficulty swallowing, numbness headache. 13:01 Reassessment: Pain in left lower back is worse.. Pain: Complains of pain in back Pain tl4 currently is 10 out of 10 on a pain scale. 14:12 Reassessment: Patient and/or family updated on plan of care and expected duration. Pain tl4 level reassessed. Patient is alert, oriented x 3, equal unlabored respirations, skin warm/dry/pink. Patient states symptoms have improved. pain is getting better. 15:33 Reassessment: No changes from previously documented assessment. Patient and/or family tl4 updated on plan of care and expected duration. Pain level reassessed. Patient is alert, oriented x 3, equal unlabored respirations, skin warm/dry/pink. 16:41 Reassessment: No changes from previously documented assessment. Patient and/or family tl4 updated on plan of care and expected duration. Pain level reassessed. Patient is alert, oriented x 3, equal unlabored respirations, skin warm/dry/pink. Attempt report to 4th floor. RN who answered states they are capped at 10 and that room isn't available due to getting floor waxed. plastic joint maker Lanie valiente. 17:57 Reassessment: Report given to RADHIKA Bedoya. tl4 Vital Signs: 08:25 BP 150 / 102; Pulse 82; Resp 18; Temp 97.5; Pulse Ox 100% on R/A; Weight 89.81 kg; ll1 Height 6 ft. 3 in. ; Pain 10/10; 10:59 Pulse 75; Pulse Ox 100% on R/A; ll1 11:28 BP 148 / 104; Pulse 75; Resp 16; Pulse Ox 99% on R/A; ll1 12:59 BP 149 / 101; Pulse 69; Resp 19; Temp 98.1(O); Pulse Ox 100% ; Pain 10/10; tl4 14:38 BP 158 / 114; Pulse 66; Resp 18; Temp 97.9(TE); Pulse Ox 100% on R/A; Pain 6/10; tl4 08:25 Body Mass Index 24.75 (89.81 kg, 190.5 cm) ll1 08:25 Pain Scale: Adult ll1 12:59 Pain Scale: Adult tl4 14:38 Pain Scale: Adult tl4 Vitals: 12:59 Cardiac Rhythm Assessment Regular Sinus rhythm W/1st degree HB. tl4 14:38 Cardiac Rhythm Assessment Regular Sinus rhythm W/1st degree HB. tl4 Naches Coma Score: 12:59 Eye Response: spontaneous(4). Motor Response: obeys commands(6). Verbal Response: tl4 oriented(5). Total: 15. 14:38 Eye Response: spontaneous(4). Motor Response: obeys commands(6). Verbal Response: tl4 oriented(5). Total: 15. ED Course: 08:09 Patient arrived in ED. mr 08:09 Anton Hayes DO is Private Physician. mr 08:10 Brandon Masterson MD is Attending Physician. deejay 08:17 Arm band placed on Patient placed in an exam room, on a stretcher. ll1 08:18 Triage completed. ll1 08:20 Provided Education on: ER process and procedures. ll1 09:00 Preston Louis, RN is Primary Nurse. ll1 09:01 CT Chest Abdomen Pelvis W/O Contrast In Process Unspecified. EDMS 09:19 XRAY Chest (1 view) In Process Unspecified. EDMS 10:08 Notified ED physician of a critical lab result(s). TROP 707.0. hb 10:25 Urinalysis w/ reflexes Sent. deejay 10:27 Patient has correct armband on for positive identification. Bed in low position. Call ll1 light in reach. Side rails up X 1. Client placed on continuous cardiac and pulse oximetry monitoring. NIBP monitoring applied. case monitor on. 11:24 Abram Cerrato MD is Hospitalizing Provider. deejay 12:59 Troponin High Sensitivity Sent. tl4 14:44 Inserted saline lock: 22 gauge in right wrist, using aseptic technique. in place prior tl4 to arrival of this RN, unknown who inserted Patient admitted, IV remains in place. 14:45 No provider procedures requiring assistance completed. tl4 Administered Medications: 09:09 Drug: NS 0.9% IV 500 ml IV at bolus once Route: IV; Rate: bolus; Site: right forearm; deejay 11:29 Follow up: Response: No adverse reaction; IV Status: Completed infusion; IV Intake: ll1 500ml 09:09 Drug: morphine IVP or IV 4 mg IVP once over 4 mins Route: IVP; Infused Over: 4 mins; [place] Site: right forearm; 11:29 Follow up: Response: No adverse reaction; Pain is decreased; RASS: Alert and Calm (0) ll1 09:10 Drug: Ondansetron IVP 4 mg IVP once; over 2 minutes Route: IVP; Site: right forearm; deejay 11:29 Follow up: Response: No adverse reaction ll1 09:20 Drug: NS 0.9% IV 1000 ml IV at 125 ml/hr continuous Route: IV; Rate: 125 ml/hr; Site: ll1 right forearm; 17:59 Follow up: Urine output 300 ml; IV Status: Infusion continued upon admission tl4 Medication: 10:27 VIS not applicable for this client. ll1 Intake: 11:29 IV: 500ml; Total: 500ml. ll1 Output: 17:59 Urine: 300ml; Total: 300ml. tl4 Outcome: 11:25 Decision to Hospitalize by Provider. deejay 17:56 Patient left the ED. tl4 17:57 Admitted to Med/surg accompanied by nurse, via wheelchair, room ICU 5, Report called to tl4 RADHIKA Bedoya 17:57 Condition: stable 17:57 Instructed on the need for admit, Signatures: Dispatcher [employer] Brandon Crowley MD MD cha Rivera, Mercy, Reg Reg mr BoboLanie, RN Preston Bejarano RN RN ll1 Kj Gama RN RN tl4 Corrections: (The following items were deleted from the chart) 08:26 08:18 Chief complaint: Patient states: Severe back pain ll1 ll1 13:02 12:59 Reassessment: No changes from previously documented assessment. Patient and/or tl4 family updated on plan of care and expected duration. Pain level reassessed. Patient is alert, oriented x 3, equal unlabored respirations, skin warm/dry/pink. tl4 16:50 15:11 Reassessment: No changes from previously documented assessment. Patient and/or tl4 family updated on plan of care and expected duration. Pain level reassessed. Patient is alert, oriented x 3, equal unlabored respirations, skin warm/dry/pink. tl4
--- NOTE | 2023-10-13 11:55 | P.HP ---
Patient History Date of Service: 10/13/23 Allergies Penicillins Allergy (Verified 10/27/22 21:16) Hives/Rash Home Medications: Pantoprazole [Protonix Tab*] 40 mg PO DAILY #30 tab 09/06/21 Atorvastatin Calcium [Lipitor] 40 mg PO BEDTIME #30 tab 10/15/22 Aspirin [Aspirin EC] 81 mg PO DAILY #30 tab 10/29/22 Amiodarone HCl [Cordarone*] 200 mg PO DAILY 08/22/23 Apixaban [Eliquis] 5 mg PO BID 08/22/23 Calcium Acetate 667 mg PO DAILY 08/22/23 Ferrous Sulfate 325 mg PO DAILY 08/22/23 Hydralazine HCl 100 mg PO Q8HR 08/22/23 Isosorbide Dinit [Isordil*] 20 mg PO TID 08/22/23 Sofosbuvir/Velpatasvir [Epclusa 400 mg-100 mg Tablet] 1 each PO DAILY 08/22/23 Torsemide [Soaanz] 40 mg PO BID 30 Days #60 tab 08/24/23 predniSONE [Prednisone*] 20 mg PO SEECOM 11 Days #8 tab 08/24/23 - Past Medical/Surgical History Diabetic: No -: Hypertension -: Systolic congestive heart failure secondary to alcoholic cardiomyopathy -: Alcoholic Pancreatitis -: TIA -: Gout -: CKD 4 (Dr. Rossi/ Dr. 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 - Family History Father -: Cancer, Liver disease Mother -: GI disease, Other (see notes) Notes: NA - Social History Alcohol use: No CD- Drugs: No Caffeine use: No Physical Examination - Studies Laboratory Data (last 24 hrs) 10/13/23 10/13/23 10/13/23 09:05 09:05 09:05 WBC 6.00 Hgb 12.3 L Hct 37.7 L Plt Count 179 PT 12.5 INR 1.14 Sodium 137 Potassium 4.2 BUN 39 H Creatinine 2.33 H Glucose 94 Magnesium 2.4 Total Bilirubin 1.1 H AST 20 ALT 23 Alkaline Phosphatase 183 H Lipase 17 Assessment and Plan - Advance Directives Does patient have a Living Will: No Does patient have a Durable POA for Healthcare: No
--- NOTE | 2023-10-13 11:59 | P.HP ---
Certification for Inpatient Patient admitted to: Observation With expected LOS: <2 Midnights Patient will require the following post-hospital care: None Practitioner: I am a practitioner with admitting privileges, knowledge of patient current condition, hospital course, and medical plan of care. Services: Services provided to patient in accordance with Admission requirements found in Title 42 Section 412.3 of the Code of Federal Regulations Patient History Date of Service: 10/13/23 Reason for admission: Chest pain rule out acute coronary syndrome/musculoskeletal pain History of Present Illness: Patient is a 63-year-old gentleman came to the hospital with left flank pain. Patient was deemed to have musculoskeletal pain. Patient troponin was inc identally found to be elevated. Patient had a recent cardiac catheterization. He states no interventions were done. There is no cardiac cath report on the chart here. Will look to his medical records. At this time, he will be admitted for observation. Patient's recently had a cardiac arrest and had to be life flighted to [place]. She was apparently found in the bathtub unresponsive. Patient is on life support in [place], and he was going to visit her with family later today. I told him that with his lab findings we want to at least work him up and look through his records. Patient will be admitted for observation. Allergies Penicillins Allergy (Verified 10/27/22 21:16) Hives/Rash Home Medications: Pantoprazole [Protonix Tab*] 40 mg PO DAILY #30 tab 09/06/21 Atorvastatin Calcium [Lipitor] 40 mg PO BEDTIME #30 tab 10/15/22 Aspirin [Aspirin EC] 81 mg PO DAILY #30 tab 10/29/22 Amiodarone HCl [Cordarone*] 200 mg PO DAILY 08/22/23 Apixaban [Eliquis] 5 mg PO BID 08/22/23 Calcium Acetate 667 mg PO DAILY 08/22/23 Ferrous Sulfate 325 mg PO DAILY 08/22/23 Hydralazine HCl 100 mg PO Q8HR 08/22/23 Isosorbide Dinit [Isordil*] 20 mg PO TID 08/22/23 Sofosbuvir/Velpatasvir [Epclusa 400 mg-100 mg Tablet] 1 each PO DAILY 08/22/23 Torsemide [Soaanz] 40 mg PO BID 30 Days #60 tab 08/24/23 predniSONE [Prednisone*] 20 mg PO SEECOM 11 Days #8 tab 08/24/23 - Past Medical/Surgical History Diabetic: No -: Hypertension -: Systolic congestive heart failure secondary to alcoholic cardiomyopathy -: Alcoholic Pancreatitis -: TIA -: Gout -: CKD 4 (Dr. Rossi/ Dr. 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 - Family History Father Medical History: Cancer, Liver disease Mother Medical History: GI disease, Other (see notes) Notes: NA - Social History Alcohol use: No CD- Drugs: No Caffeine use: No Review of Systems 10-point ROS is otherwise unremarkable Physical Examination - Vital Signs Temperature: 98 F (reviewed) - Physical Exam General: Alert, In no apparent distress, Oriented x3 HEENT: Atraumatic, PERRLA, Mucous membr. moist/pink, EOMI, Sclerae nonicteric Neck: Supple, 2+ carotid pulse no bruit, No LAD, Without JVD or thyroid abnormality Respiratory: Clear to auscultation bilaterally, Normal air movement Cardiovascular: Regular rate/rhythm, Normal S1 S2 Gastrointestinal: Normal bowel sounds, Soft and benign, Non-distended, No tenderness Musculoskeletal: Tenderness, Other Integumentary: No rashes Neurological: Normal gait, Normal speech, Normal strength at 5/5 x4 extr, Normal tone, Normal affect Lymphatics: No axilla or inguinal lymphadenopathy - Studies Laboratory Data (last 24 hrs) 10/13/23 10/13/23 10/13/23 09:05 09:05 09:05 WBC 6.00 Hgb 12.3 L Hct 37.7 L Plt Count 179 PT 12.5 INR 1.14 Sodium 137 Potassium 4.2 BUN 39 H Creatinine 2.33 H Glucose 94 Magnesium 2.4 Total Bilirubin 1.1 H AST 20 ALT 23 Alkaline Phosphatase 183 H Lipase 17 Assessment & Plan - Problems (Diagnosis) (1) Low back pain Current Visit: Yes Status: Acute (2) Musculoskeletal back pain Current Visit: Yes Status: Acute (3) Coronary artery disease Current Visit: No Status: Acute (4) Elevated troponin Current Visit: No Status: Acute (5) HTN (hypertension) Current Visit: No Status: Chronic Qualifiers: Hypertension type: primary hypertension Qualified Code(s): I10 - Essential (primary) hypertension (6) Obesity (BMI 30.0-34.9) Current Visit: No Status: Chronic - Plan -High-sensitivity troponin -Cardiology consultation if troponins go up significantly.; Patient recent cardiac catheterization. No intervention is necessary. No need for any further aggressive intervention at this time. -Echocardiogram and cardiac cath report will be reviewed. -Work-up for other etiologies of cardiac chest pain if troponins are elevated -Lipid profile; director counseling bureau regarding modifying risk for cardiac disease Discharge Plan: Home Plan to discharge in: Greater than 2 days - Advance Directives Does patient have a Living Will: No Does patient have a Durable POA for Healthcare: No - Code Status/Comfort Care Code Status Assessed: Yes Code Status: Full Code Critical Care: No Time Spent Managing PTS Care (In Minutes): 45
[2023-10-13] MEDS ORDERED: ONDANSETRON 4 MG/2 ML VIAL IV PRN (12:03)
[2023-10-13] MEDS ORDERED: ACETAMINOPHEN 500 MG TAB PO PRN (12:03)
[2023-10-13] MEDS: NA CHLORIDE 0.9% 1,000 ML IV SCH (13:00)
[2023-10-13] MEDS ORDERED: MORPHINE 2 MG/ML SYR ONE ×2 (13:36→22:07)
[2023-10-13] MEDS: METOPROLOL TAR 25 MG TAB PO SCH (13:55)
[2023-10-13] MEDS: MORPHINE 2 MG/ML SYR IV PRN (13:56)
[2023-10-13] MEDS: HYDRALAZINE HCL 25 MG TABLET PO SCH (17:00)
[2023-10-13] MEDS ORDERED: dexAMETHasone 4 MG/ML VIAL ONE (18:27)
[2023-10-13] MEDS: dexAMETHasone 4 MG/ML VIAL IV ONE (18:28)
[2023-10-13 18:57] VITALS: BMI 24.9
[2023-10-13] MEDS: TORSEMIDE 40 MG PO SCH (21:00)
[2023-10-13] MEDS: ISOSORBIDE DINIT 20 MG TAB PO SCH (21:00)
[2023-10-13] MEDS ORDERED: APIXABAN 5 MG TABLET PO SCH (21:00)
[2023-10-13] MEDS: APIXABAN 5 MG TABLET PO SCH (21:20)
[2023-10-13] MEDS: ATORVASTATIN 40 MG TAB PO SCH (21:20)
[2023-10-14 01:07] VITALS: O2SAT 100
[2023-10-14] MEDS ORDERED: HYDRALAZINE HCL 25 MG TABLET ONE (01:10)
[2023-10-14] MEDS ORDERED: MORPHINE 2 MG/ML SYR ONE (03:44)
[2023-10-14 04:53] LABS: Absolute Lymphocytes (CBC) 0.5 K/uL (0.7-4.9); Hematocrit 38.2 % (39.6-49.0); Lymphocytes % 8.4 % (15.3-44.8); MCV 80.8 fL (80-100); MPV 9.1 fL (7.6-11.3); Platelets 162 thou/uL (152-406); RBC Red Blood Cell Count 4.73 M/uL (4.33-5.43)
[2023-10-14 04:56] LABS: Protime INR 1.38
[2023-10-14 05:03] LABS: Albumin 2.9 g/dL (3.4-5.0); Bilirubin Total 1.2 mg/dL (0.2-1.0); Potassium 5.2 mEq/L (3.5-5.1); Protein, Total 7.8 g/dL (6.4-8.2)
[2023-10-14 05:44] LABS: Anisocytosis 1+; Blood Morphology Comment NOTED (NOT SEEN); Platelet Estimate ADEQ
[2023-10-14] MEDS ORDERED: AMIODARONE HCL 200 MG TAB ONE (08:01)
[2023-10-14] MEDS ORDERED: ASPIRIN EC 81 MG TAB PO ONE (08:01)
[2023-10-14] MEDS ORDERED: predniSONE 20 MG TAB ONE (08:01)
[2023-10-14] MEDS: PANTOPRAZOLE 40MG TABLET PO SCH (08:03)
[2023-10-14] MEDS: SOFOSBUVIR PO SCH (08:04)
[2023-10-14] MEDS: predniSONE 20 MG TAB PO SCH (08:04)
[2023-10-14] MEDS: AMIODARONE HCL 200 MG TAB PO SCH (08:04)
[2023-10-14] MEDS: ASPIRIN EC 81 MG TAB PO SCH (08:04)
[2023-10-14] MEDS: VELPATASVIR PO SCH (08:04)
[2023-10-14] MEDS: FERROUS SULFATE 325 MG TAB PO SCH (08:05)
[2023-10-14] MEDS ORDERED: NA CHLORIDE 0.9% 1,000 ML ONE (08:08)
[2023-10-14] MEDS ORDERED: ASPIRIN EC 81 MG TAB PO SCH (09:00)
[2023-10-14] MEDS ORDERED: SODIUM BICARB 325 MG TAB PO SCH (09:00)
[2023-10-14] MEDS ORDERED: dexAMETHasone 4 MG TAB PO SCH (09:00)
[2023-10-14] MEDS ORDERED: ATORVASTATIN 40 MG TAB PO SCH (09:00)
[2023-10-14 09:23] VITALS: BP 151/96; TEMP 97.3
--- NOTE | 2023-10-14 14:32 | EKG ---
Test Date: 2023-10-13 Test Time: 09:16:27 [place]: LML MEASUREMENT RESULTS: Intervals: Rate: 80 OH: 234 QRSD: 152 QT: 420 QTc: 484 [place]: P: 78 OH: 234 QRS: 192 T: 16 INTERPRETIVE STATEMENTS: Sinus rhythm with 1st degree AV block Nonspecific intraventricular block Abnormal ECG Compared to ECG 08/21/2023 20:37:05 Left-axis deviation no longer present Left bundle-branch block no longer present Electronically Signed On 10-14-23 14:27:33 MANAGER DISH by Shamar De Guzman
== END 2023-10-14 09:40 | disposition home or self-care (01) ==
LOC: ER 08:05 → ERHOLD 12:03 → 3RD-ICU 17:53
PROVIDERS: ADMIT Hospitalist; ATTEND Hospitalist
DX: R07.9 Chest pain, unspecified (principal); M54.50 Low back pain, unspecified; M79.18 Myalgia, other site; R79.89 Other specified abnormal findings of blood chemistry; I25.2 Old myocardial infarction; I10 Essential (primary) hypertension; E66.9 Obesity, unspecified; N18.9 Chronic kidney disease, unspecified; Z68.30 Body mass index [BMI] 30.0-30.9, adult; Z86.73 Personal history of transient ischemic attack (TIA), and cerebral infarction without residual deficits; Z88.0 Allergy status to penicillin
CPT/HCPCS: 96361; 93005; 85025 ×2; 81001; 80048; 36415; 83735; 85610 ×2; 80061; 80076; 85730; 84484 ×3; 83690; 80053; 83880; 71250; 74176; 71045; 96375; 96374; 99285; J7512; J1100; J2270 ×4; J2405; J7030 ×4; G0378 ×4

== ENCOUNTER 2023-11-27 22:00 | Inpatient (IN) | payer OTHER ==
[2023-11-27] MEDS ORDERED: DIAZEPAM 10 MG/2 ML INJ SYRINGE ONE (22:32)
[2023-11-27] MEDS ORDERED: MORPHINE 4 MG/ML SYR ONE (22:33)
[2023-11-27] MEDS ORDERED: FUROSEMIDE 40 MG/4 ML VIAL ONE (22:33)
[2023-11-27] MEDS ORDERED: ONDANSETRON 4 MG/2 ML VIAL ONE (22:33)
[2023-11-27 23:52] LABS: Absolute Basophils 0.1 K/uL (0-0.5); Absolute Eosinophils 0.6 K/uL (0-0.5); Absolute Lymphocytes (CBC) 1.4 K/uL (0.7-4.9); Absolute Neutrophil 4.3 K/uL (1.8-8.0); Basophils % 0.7 % (0-1.3); Eosinophils % 8.5 % (0-4.4); Hematocrit 42.2 % (39.6-49.0); Hemoglobin 13.8 g/dL (13.6-17.9); Lymphocytes % 18.8 % (15.3-44.8); MCH 27.5 pg (27.0-35.0); MCHC 32.7 g/dL (32.0-36.0); MCV 84.1 fL (80-100); MPV 9.7 fL (7.6-11.3); Monocytes % 13.1 % (3.3-12.3); Neutrophils % 58.9 % (41.7-73.7); Nucleated Red Blood Cells % 0.1 % (0-0); Platelets 172 thou/uL (152-406); RBC Red Blood Cell Count 5.01 M/uL (4.33-5.43); Red Cell Distribution Width 18.4 % (12.1-15.2)
[2023-11-27 23:55] LABS: PT Prothrombin Time 12.6 SECONDS (9.5-12.5); Protime INR 1.15
[2023-11-28 00:16] LABS: Albumin 3.2 g/dL (3.4-5.0); Albumin/Globulin Ratio 0.6 (1.1-1.8); Anion Gap 13.7 mEq/L (5.0-15.0); Bilirubin Direct 0.7 mg/dL (0-0.2); Bilirubin Indirect, Calculated 0.8 mg/dL (0.2-0.8); Bilirubin Total 1.5 mg/dL (0.2-1.0); Globulin 5.3 g/dL (2.3-3.5); Magnesium 1.8 mg/dL (1.6-2.4); Potassium 3.7 mEq/L (3.5-5.1); Protein, Total 8.5 g/dL (6.4-8.2)
[2023-11-28 00:18] LABS: Troponin High Sensitivity 812.9 pg/mL (<58.9)
[2023-11-28] MEDS ORDERED: HEPARIN 5000 UNIT/ML 1 ML VIAL ONE (01:23)
[2023-11-28] MEDS ORDERED: HEPARIN/D5W 25,000 UNIT/500 ML BAG IV ONE (01:23)
[2023-11-28] MEDS ORDERED: ALBUTEROL 2.5 MG/3 ML NEB SOL NEB PRN ×2 (01:37→11:57)
[2023-11-28] MEDS ORDERED: ONDANSETRON 4 MG/2 ML VIAL IV PRN (01:37)
[2023-11-28] MEDS: NITROGLYCERIN 0.2 MG/HR (5 MG) PATCH TD SCH (01:40)
[2023-11-28] MEDS ORDERED: MORPHINE 4 MG/ML SYR ONE (01:40)
--- NOTE | 2023-11-28 01:41 | ER ---
Nurse's Notes [facility] Name: Natan Paulino Age: 63 yrs Sex: Male : 1960 Arrival Date: 11/27/2023 Time: 22:00 Bed 20 Private MD: Diagnosis: Unstable angina;NSTEMI , heart failure exacerbation, acute renal failure;Acute on chronic renal insufficiency;Acute diastolic (congestive) heart failure Presentation: 11/26 22:10 Chief complaint: Patient states: chest pain for 2 days that got worse today with SOB; km8 discharge recently. Coronavirus screen: Client denies travel out of the [place] in the last 14 days. Ebola Screen: No symptoms or risks identified at this time. Initial Sepsis Screen: Does the patient meet any 2 criteria? RR > 20 per min. No. Patient's initial sepsis screen is negative. Does the patient have a suspected source of infection? No. Patient's initial sepsis screen is negative. Risk Assessment: Do you want to hurt yourself or someone else? Patient reports no desire to harm self or others. Onset of symptoms was November 27, 2023 at 21:00. 22:10 Method Of Arrival: Ambulatory km8 22:10 Acuity: NINO 2 km8 Triage Assessment: 22:14 General: Appears uncomfortable, Behavior is cooperative, appropriate for age, anxious. km8 Pain: Complains of pain in chest Pain currently is 10 out of 10 on a pain scale. EENT: No signs and/or symptoms were reported regarding the EENT system. Neuro: Level of Consciousness is awake, alert, obeys commands, Oriented to person, place, time, situation. Cardiovascular: Reports chest pain, shortness of breath, Patient's skin is warm and dry. Respiratory: Airway is patent Respiratory effort is even, labored, Respiratory pattern is symmetrical, tachypnea. GI: No signs and/or symptoms were reported involving the gastrointestinal system. : No signs and/or symptoms were reported regarding the genitourinary system. Derm: Skin is intact, is healthy with good turgor, Skin is dry, Skin is pink, warm \\T\\ dry. normal, Skin temperature is warm. Musculoskeletal: No signs and/or symptoms reported regarding the musculoskeletal system. Amputation of left little finger. Historical: - Allergies: 22:14 PENICILLINS; km8 - PMHx: 22:14 CHF; Gout; Hypertension; Myocardial infarction; osteoarthritis; Pancreatitis; km8 Rheumatoid Arthritis; stroke; TIA; - PSHx: 22:14 finger; heart stent; Stented artery; km8 - Immunization history:: Adult Immunizations unknown. - Infectious Disease History:: Denies. - Social history:: Smoking status: Patient denies any tobacco usage or history of. Patient uses alcohol, but reports only rare drinking. Patient/guardian denies using street drugs. - Family history:: not pertinent. Screenin:17 [facility] ED Fall Risk Assessment (Adult) History of falling in the last 3 months, as6 including since admission No falls in past 3 months (0 pts) Confusion or Disorientation No (0 pts) Intoxicated or Sedated No (0 pts) Impaired Gait No (0 pts) Mobility Assist Device Used No (0 pt) Altered Elimination No (0 pt) Score/Fall Risk Level 0 - 2 = Low Risk Oriented to surroundings, Maintained a safe environment, Educated pt \\T\\ family on fall prevention, incl call for assistance when getting out of bed, Assessed \\T\\ reinforced patient's understanding of fall precautions, Provided non-skid footwear, Hourly rounding (assess needs \\T\\ fall precautionary measures) done. Abuse screen: Denies threats or abuse. Denies injuries from another. Nutritional screening: No deficits noted. Tuberculosis screening: No symptoms or risk factors identified. Assessment: 22:40 General: Appears in no apparent distress. Behavior is calm, cooperative. Pain: as6 Complains of pain in "everywhere". Neuro: Level of Consciousness is awake, alert, obeys commands, Oriented to person, place, time, situation. Cardiovascular: Reports chest pain, shortness of breath. Respiratory: Reports shortness of breath at rest on exertion Airway is patent Trachea midline Respiratory effort is even, unlabored, Respiratory pattern is regular, symmetrical, Breath sounds with crackles bilaterally. GI: No deficits noted. No signs and/or symptoms were reported involving the gastrointestinal system. : No deficits noted. No signs and/or symptoms were reported regarding the genitourinary system. EENT: No deficits noted. No signs and/or symptoms were reported regarding the EENT system. Derm: Skin is intact. 11/27 00:03 Reassessment: Patient appears in no apparent distress at this time. Patient and/or as6 family updated on plan of care and expected duration. Pain level reassessed. Patient is alert, oriented x 3, equal unlabored respirations, skin warm/dry/pink. Patient states feeling better. 01:15 Reassessment: Patient appears in no apparent distress at this time. Patient and/or bm8 family updated on plan of care and expected duration. Pain level reassessed. Patient is alert, oriented x 3, equal unlabored respirations, skin warm/dry/pink. General: Appears in no apparent distress. uncomfortable, Behavior is calm, cooperative, appropriate for age. Pain: Complains of pain in chest Pain does not radiate. Pain currently is 8 out of 10 on a pain scale. Quality of pain is described as sharp. Neuro: Level of Consciousness is awake, alert, obeys commands, Oriented to person, place, time, situation, Appropriate for age. Cardiovascular: Reports chest pain, Heart tones S1 S2 present Capillary refill < 3 seconds Patient's skin is warm and dry. Respiratory: Airway is patent Trachea midline Respiratory effort is even, unlabored, Respiratory pattern is regular, symmetrical. GI: No deficits noted. No signs and/or symptoms were reported involving the gastrointestinal system. : No deficits noted. No signs and/or symptoms were reported regarding the genitourinary system. EENT: No deficits noted. No signs and/or symptoms were reported regarding the EENT system. Derm: Skin is intact. Vital Signs: 11/26 22:10 BP 156 / 119; Pulse 90; Resp 23; Temp 97.6(TE); Pulse Ox 100% on R/A; Weight 88.45 kg km8 (R); Height 6 ft. 3 in. (R); Pain 05/28; 23:19 BP 129 / 88; Pulse 82; Resp 20 S; Pulse Ox 95% on R/A; as6 11/27 00:02 BP 152 / 112; Pulse 100; Resp 19 S; Pulse Ox 97% on R/A; as6 01:15 BP 149 / 102; Pulse 86; Resp 18; Temp 97.8; Pulse Ox 96% on R/A; Pain 03/28; bm8 01:45 BP 148 / 95; Pulse 85; Resp 20; Pulse Ox 98% on R/A; bm8 11/26 22:10 Body Mass Index 24.37 (88.45 kg, 190.5 cm) 8 11/26 22:10 Pain Scale: Adult km8 01:15 Pain Scale: Adult bm8 Telly Coma Score: 01:15 Eye Response: spontaneous(4). Motor Response: obeys commands(6). Verbal Response: bm8 oriented(5). Total: 15. 01:43 Eye Response: spontaneous(4). Motor Response: obeys commands(6). Verbal Response: sp4 oriented(5). Total: 15. NIH Stroke Scale Scores: 01:43 NIHSS Score: 0 sp4 ED Course: 11/26 22:01 Patient arrived in ED. jj6 22:03 Frandy Sims MD is Attending Physician. sp4 22:13 Triage completed. km8 22:14 Inserted saline lock: 20 gauge in right forearm, using aseptic technique. Blood rv1 collected. 22:14 Arm band placed on right wrist. EKG completed in triage. Results shown to MD. km8 22:23 Malcolm Qureshi, RN is Primary Nurse. as6 22:33 Basic Metabolic Panel Sent. rv1 22:33 CBC with Diff Sent. rv1 22:33 D-Dimer Sent. rv1 22:33 LFT's Sent. rv1 22:33 Magnesium Sent. rv1 22:33 NT PRO-BNP Sent. rv1 22:33 PT-INR Sent. rv1 22:33 Troponin HS Sent. rv1 22:34 XRAY Chest (1 view) In Process Unspecified. EDMS 23:17 Placed in gown. Bed in low position. Call light in reach. Side rails up X2. Client as6 placed on continuous cardiac and pulse oximetry monitoring. NIBP monitoring applied. desk monitor on. Door closed. Noise minimized. Lights dimmed. Warm blanket given. 11/27 00:20 PO fluids given. as6 00:30 Report received from radhika Fowler. bm8 01:15 No provider procedures requiring assistance completed. IV is patent, with fluids bm8 infusing freely, with good blood return, Flushed right forearm with 5 ml normal saline. 01:30 Inserted saline lock: 20 gauge in left forearm, using aseptic technique. bm8 01:39 Kiley Bowden MD is Hospitalizing Provider. sp4 01:43 EKG done, by ED staff, reviewed by Frandy Sims MD. rv1 02:14 Patient admitted, IV remains in place. bm8 02:14 Provided Education on: admission process. bm8 Administered Medications: 11/26 22:45 Drug: Diazepam IVP 5 mg IVP once Route: IVP; Site: right forearm; as6 11/27 01:15 Follow up: Response: No adverse reaction 8 11/26 22:45 Drug: Ondansetron IVP 4 mg IVP once; over 2 minutes Route: IVP; Site: right forearm; as6 11/27 01:15 Follow up: Response: No adverse reaction 8 11/26 22:45 Drug: Furosemide IVP 40 mg IVP once; give over 2 minutes Route: IVP; Site: right as6 forearm; 11/27 01:15 Follow up: Response: No adverse reaction [facility] 11/26 22:46 Drug: morphine IVP or IV 4 mg IVP once over 4 mins Route: IVP; Infused Over: 4 mins; as6 Site: right forearm; 11/27 01:15 Follow up: Response: No adverse reaction bm8 01:01 Not Given (Physician Discretion): ns 0.9% 1000 ml IV at 1 bolus Per protocol; 1000 mL sp4 bolus 01:37 Drug: HEParin IV 5000 units IV at bolus once {Co-Signature: pf1 (Deepika Jim RN).} bm8 Route: IV; Rate: bolus; Site: left forearm; 01:38 Follow up: IV Status: Completed infusion; IV Intake: 1ml km8 01:38 Drug: Heparin (UT Drip) 12 units/kg/[place] - ([place] [address] units, D5W IV 500 ml) IV at bm8 calculated rate Per protocol; Max initial rate 1000 units/hr {Co-Signature: pf1 (Deepika Jim RN).} Route: IV; Rate: calculated rate; Site: left forearm; 03:09 Follow up: IV Status: Infusion continued upon admission km8 01:43 Drug: morphine IVP or IV 4 mg IVP once over 4 mins Route: IVP; Infused Over: 4 mins; bm8 Site: right forearm; 03:09 Follow up: Response: No adverse reaction; Pain is decreased km8 Medication: 11/26 23:18 VIS not applicable for this client. as6 Intake: 11/27 01:38 IV: 1ml; Total: 1ml. [facility] Outcome: 01:40 Decision to Hospitalize by Provider. sp4 03:08 Admitted to Med/surg accompanied by tech, via wheelchair, room 403, Report called to 8 faxed to 4th floor 03:08 Condition: stable 03:08 Instructed on the need for admit, Demonstrated understanding of instructions, 03:10 Patient left the ED. [facility] NIH Stroke Scale - NIH Stroke Score Date: 11/28/2023 Time: 01:43 Total Score = 0 10. Dysarthria (speech clarity - read or repeat words) - 0(Normal) 11. Extinction and Inattention (visual/tactile/auditory/spatial/personal) - 0(No abnormality) 1a. Level of Consciousness (LOC) - 0(Alert) 1b. Level of Consciousness (LOC) (Month \\T\\ Age) - 0(Both) 1c. LOC Commands (Open \\T\\ Closes Eyes/Staff Appraiser) - 0(Both) 2. Best Gaze (Lateral Gaze Paresis) - 0(Normal) 3. Visual Field Loss - 0(No visual loss) 4. Facial Palsy - 0(Normal) 5a. Left Arm: Motor (10-second hold) - 0(No drift) 5b. Right Arm: Motor (10-second hold) - 0(No drift) 6a. Left Leg: Motor (5-second hold - always test supine) - 0(No drift) 6b. Right Leg: Motor (5-second hold - always test supine) - 0(No drift) 7. Limb Ataxia (finger/nose \\T\\ heel/santiago - test with eyes open) - 0(Absent) 8. Sensory Loss (pinprick arms/legs/face) - 0(Normal) 9. Best Language: Aphasia (description/naming/reading) - 0(No aphasia) Initials: sp4 Signatures: Dispatcher [employer] EDMS Geena Merlos jj6 Malcolm Qureshi, RADHIKA RN as6 Coretta Bell1 Frandy Sims MD MD sp4 Priscilla Murphy RN RN km8 Ramon Marie RN RN bm8 Deepika Jim RN pf1
--- NOTE | 2023-11-28 01:41 | EDPHYS ---
Physician Documentation [facility] Name: Natan Paulino Age: 63 yrs Sex: Male : 1960 Arrival Date: 11/27/2023 Time: 22:00 Bed 20 Private MD: ED Physician Frandy Sims HPI: 11/26 22:04 This 63 yrs old Black Male presents to ER via Unassigned with complaints of Chest Pain, sp4 Shortness Of Breath. 11/27 01:43 63-year-old male with past medical history of coronary artery disease, congestive heart sp4 failure, chronic kidney disease, hepatitis C, GERD, congestive heart failure presents with worsening chest pain for the past 2 days. Patient is anxious on presentation. Denied drug use, denied cocaine use. . 01:43 Patient at this time reports midsternal chest pressure associated with shortness of sp4 breath. Denied diaphoresis. Historical: - Allergies: 11/26 22:14 PENICILLINS; km8 - PMHx: 22:14 CHF; Gout; Hypertension; Myocardial infarction; osteoarthritis; Pancreatitis; km8 Rheumatoid Arthritis; stroke; TIA; - PSHx: 22:14 finger; heart stent; Stented artery; km8 - Immunization history:: Adult Immunizations unknown. - Infectious Disease History:: Denies. - Social history:: Smoking status: Patient denies any tobacco usage or history of. Patient uses alcohol, but reports only rare drinking. Patient/guardian denies using street drugs. - Family history:: not pertinent. ROS: 11/27 01:43 Constitutional: Negative for fever, chills, and weight loss, positive chest pain and sp4 shortness of breath All other systems are negative, Exam: 01:43 Constitutional: This is a well developed, well nourished patient who is awake, alert, sp4 and in no acute distress. Mild anxiety and agitation associated with jugular venous distention. Head/Face: Normocephalic, atraumatic. Eyes: Pupils equal round and reactive to light, extra-ocular motions intact. Lids and lashes normal. Conjunctiva and sclera are not injected. Cornea within normal limits. Periorbital areas with no swelling, redness, or edema. ENT: Nares patent. No nasal discharge, no septal abnormalities noted. Tympanic membranes are normal and external auditory canals are clear. Oropharynx with no redness, swelling, or masses, exudates, or evidence of obstruction, uvula midline. Mucous membranes moist. Neck: Trachea midline, no thyromegaly or masses palpated, and no cervical lymphadenopathy. Supple, full range of motion without nuchal rigidity, or vertebral point tenderness. Chest/axilla: Normal chest wall appearance and motion. Nontender with no deformity. No lesions are appreciated. Cardiovascular: Regular rate and rhythm with a normal S1 and S2. No gallops, murmurs, or rubs. Normal PMI, positive jugular venous distention and positive other venous distention , no pulse deficits. Respiratory: Lungs have equal breath sounds bilaterally, clear to auscultation and percussion. No rales, rhonchi or wheezes noted. No increased work of breathing, no retractions or nasal flaring. Abdomen/GI: Soft, with normal bowel sounds. No distension or tympany. No guarding or rebound. No evidence of tenderness throughout. Back: No spinal tenderness. No costovertebral tenderness. Skin: Warm, dry with normal turgor. Normal color with no rashes, no lesions, and no evidence of cellulitis. MS/ Extremity: Pulses equal, no cyanosis. Neurovascular intact. Full, normal range of motion. Neuro: Awake and alert, GCS 15, oriented to person, place, time, and situation. Cranial nerves II-XII grossly intact. Motor strength 5/5 in all extremities. Sensory grossly intact. Psych: Awake, alert, with orientation to person, place and time. Behavior, mood, and affect are within normal limits 01:43 ECG was reviewed by the Attending Physician. EKG time 2206 sinus rhythm with sp4 first-degree AV block, left axis deviation, left bundle branch block, no sign of acute CT based on Sgarbossa criteria Vital Signs: 11/26 22:10 BP 156 / 119; Pulse 90; Resp 23; Temp 97.6(TE); Pulse Ox 100% on R/A; Weight 88.45 kg km8 (R); Height 6 ft. 3 in. (R); Pain 10/10; 23:19 BP 129 / 88; Pulse 82; Resp 20 S; Pulse Ox 95% on R/A; as6 11/27 00:02 BP 152 / 112; Pulse 100; Resp 19 S; Pulse Ox 97% on R/A; as6 01:15 BP 149 / 102; Pulse 86; Resp 18; Temp 97.8; Pulse Ox 96% on R/A; Pain 8/10; bm8 01:45 BP 148 / 95; Pulse 85; Resp 20; Pulse Ox 98% on R/A; bm8 0410 22:10 Body Mass Index 24.37 (88.45 kg, 190.5 cm) km8 11/26 22:10 Pain Scale: Adult km8 01:15 Pain Scale: Adult bm8 NIH Stroke Scale Scores: 01:43 NIHSS Score: 0 sp4 Telly Coma Score: 01:15 Eye Response: spontaneous(4). Motor Response: obeys commands(6). Verbal Response: bm8 oriented(5). Total: 15. 01:43 Eye Response: spontaneous(4). Motor Response: obeys commands(6). Verbal Response: sp4 oriented(5). Total: 15. MDM: 11/26 22:05 Patient medically screened. sp4 11/27 00:07 ED course: EXAM DESCRIPTION: Chest Single View 11/27/2023 10:44 PM CDT CLINICAL HISTORY: sp4 63 years, Male, CHEST PAIN COMPARISON: None FINDINGS: 1 views of the chest was obtained. Prior films were compared. There is slight decreased lung volume. Mediastinum: The cardiomediastinal silhouette appears normal in size and shape. Lungs: No areas of consolidations or masses are identified. Heart: The heart is prominent. Thoracic aorta: The thoracic aorta demonstrate to be normal. Pulmonary vasculature: The pulmonary vasculature is normal in distribution. Pleura: The costophrenic angles demonstrate to be sharp. Osseous structures: The bony structures demonstrate to be within normal limits. Other: External EKG leads within the [id number] limits diagnosis. IMPRESSION: Slight decreased lung volume. Mild cardiomegaly. . 01:49 Differential diagnosis: abnormal EKG, acute myocardial infarction, acute pericarditis, sp4 anxiety, coronary artery disease chest wall pain, congestive heart failure cholecystitis. HEART Score: History: Moderately Suspicious (1), ECG: Non specific repolarization disturbance / LBTB / PM (1), Age: > or = 65 years (2), Risk Factors: > or = 3 Risk factors for atherosclerotic disease (2), Troponin: > or = 3 x Normal Limit (2), Total Score = 8. The patient was not given aspirin in the Emergency Department. Patient reports taking aspirin within the past 24 hours. Data reviewed: vital signs, nurses notes, old medical records, lab test result(s), EKG, radiologic studies, plain films. Consideration of Admission/Observation Patient was admitted/placed on observation. Escalation of care including admission/observation considered. Management of patient was discussed with the following: Hospitalist: Kal BLOOM . Grip Wrapper: Kirit BLOOM . ED course: Patient was started on heparin infusion. Admitted for further management.. 01:51 ED course: Based on medication review patient takes aspirin 81 mg p.o. daily at home sp4 also Eliquis 5 mg p.o. twice daily. Patient states he is compliant. 11/26 22:05 Order name: Basic Metabolic Panel; Complete Time: 00:57 [facility] 11/26 22:05 Order name: CBC with Diff; Complete Time: 00:07 [facility] 11/26 22:05 Order name: D-Dimer; Complete Time: 00:07 [facility] 11/26 22:05 Order name: LFT's; Complete Time: 00:57 [facility] 11/26 22:05 Order name: Magnesium; Complete Time: 00:57 4 11/26 22:05 Order name: NT PRO-BNP; Complete Time: 00:57 [facility] 11/26 22:05 Order name: PT-INR; Complete Time: 00:07 [facility] 11/26 22:05 Order name: Troponin HS; Complete Time: 00:57 [facility] 11/27 01:01 Order name: LFT's [facility] 11/27 01:02 Order name: Urine Drug Screen; Complete Time: 01:51 [facility] 11/27 01:43 Order name: Thyroid Stimulating Hormone [facility] 11/27 01:43 Order name: CBC with Automated Diff [facility] 11/27 01:43 Order name: CBC with Automated Diff [facility] 11/27 01:43 Order name: Comprehensive Metabolic Panel [facility] 11/27 01:43 Order name: Comprehensive Metabolic Panel [facility] 11/27 01:43 Order name: Troponin High Sensitivity [facility] 11/27 01:43 Order name: Troponin High Sensitivity [facility] 11/27 01:43 Order name: Troponin High Sensitivity [facility] 11/27 01:43 Order name: Troponin High Sensitivity [facility] 11/26 22:05 Order name: XRAY Chest (1 view) 4 11/27 01:35 Order name: EKG; Complete Time: 01:35 sp4 11/27 01:43 Order name: CONS Physician Consult [facility] 11/26 22:05 Order name: Cardiac monitoring; Complete Time: 22:14 sp4 11/26 22:05 Order name: EKG - Nurse/Tech; Complete Time: 22:14 sp4 11/26 22:05 Order name: IV Saline Lock; Complete Time: 22:14 sp4 11/26 22:05 Order name: Labs collected and sent; Complete Time: 22:14 sp4 11/26 22:05 Order name: O2 Per Protocol; Complete Time: 22:14 sp4 11/26 22:05 Order name: O2 Sat Monitoring; Complete Time: 22:14 4 11/27 01:35 Order name: EKG - Nurse/Tech; Complete Time: :43 sp4 EC:43 Rate is 93 beats/min. Rhythm is regular, Sinus Rhythm. Left axis deviation noted. IA sp4 interval is prolonged. QRS interval is prolonged. QT interval is normal. No Q waves. Clinical impression: No evidence of ischemia. Interpreted by me. Reviewed by me. Administered Medications: 11/26 22:45 Drug: Diazepam IVP 5 mg IVP once Route: IVP; Site: right forearm; as6 11/27 01:15 Follow up: Response: No adverse reaction [facility] 11/26 22:45 Drug: Ondansetron IVP 4 mg IVP once; over 2 minutes Route: IVP; Site: right forearm; as6 11/27 01:15 Follow up: Response: No adverse reaction [facility] 11/26 22:45 Drug: Furosemide IVP 40 mg IVP once; give over 2 minutes Route: IVP; Site: right as6 forearm; 11/27 01:15 Follow up: Response: No adverse reaction [facility] 11/26 22:46 Drug: morphine IVP or IV 4 mg IVP once over 4 mins Route: IVP; Infused Over: 4 mins; as6 Site: right forearm; 11/27 01:15 Follow up: Response: No adverse reaction bm8 01:01 Not Given (Physician Discretion): ns 0.9% 1000 ml IV at 1 bolus Per protocol; 1000 mL sp4 bolus 01:37 Drug: HEParin IV 5000 units IV at bolus once {Co-Signature: pf1 (Deepika Jim RN).} bm8 Route: IV; Rate: bolus; Site: left forearm; 01:38 Follow up: IV Status: Completed infusion; IV Intake: 1ml 01:38 Drug: Heparin (CT Drip) 12 units/kg/hr - ([place] [address] units, D5W IV 500 ml) IV at bm8 calculated rate Per protocol; Max initial rate 1000 units/hr {Co-Signature: pf1 (Deepika Jim RN).} Route: IV; Rate: calculated rate; Site: left forearm; 03:09 Follow up: IV Status: Infusion continued upon admission 01:43 Drug: morphine IVP or IV 4 mg IVP once over 4 mins Route: IVP; Infused Over: 4 mins; bm8 Site: right forearm; 03:09 Follow up: Response: No adverse reaction; Pain is decreased Disposition Summary: 11/28/23 01:40 Hospitalization Ordered Notes: Hospitalization Status: Inpatient Admission sp4 Provider: Kiley Bowden sp4 Location: Telemetry/[facility] (Inpatient) sp4 Condition: Serious sp4 Problem: new sp4 Symptoms: have improved sp4 Bed/Room Type: Standard sp4 Room Assignment: 403(11/28/23 02:12) Diagnosis - Unstable angina sp4 - NSTEMI , heart failure exacerbation, acute renal failure sp4 - Acute on chronic renal insufficiency sp4 - Acute diastolic (congestive) heart failure sp4 Forms: - Medication Reconciliation Form sp4 - SBAR form sp4 - Leadership Thank You Letter sp4 NIH Stroke Scale - NIH Stroke Score Date: 11/28/2023 Time: 01:43 Total Score = 0 10. Dysarthria (speech clarity - read or repeat words) - 0(Normal) 11. Extinction and Inattention (visual/tactile/auditory/spatial/personal) - 0(No abnormality) 1a. Level of Consciousness (LOC) - 0(Alert) 1b. Level of Consciousness (LOC) (Month \T\ Age) - 0(Both) 1c. LOC Commands (Open \T\ Closes Eyes/[place]) - 0(Both) 2. Best Gaze (Lateral Gaze Paresis) - 0(Normal) 3. Visual Field Loss - 0(No visual loss) 4. Facial Palsy - 0(Normal) 5a. Left Arm: Motor (10-second hold) - 0(No drift) 5b. Right Arm: Motor (10-second hold) - 0(No drift) 6a. Left Leg: Motor (5-second hold - always test supine) - 0(No drift) 6b. Right Leg: Motor (5-second hold - always test supine) - 0(No drift) 7. Limb Ataxia (finger/nose \T\ heel/santiago - test with eyes open) - 0(Absent) 8. Sensory Loss (pinprick arms/legs/face) - 0(Normal) 9. Best Language: Aphasia (description/naming/reading) - 0(No aphasia) Initials: sp4 Signatures: Dispatcher [employer] Sujatha Aguilar, RN RN cg Malcolm Qureshi, RADHIKA RN as6 Frandy Sims MD MD sp4 Priscilla Murphy RN RN km8 Ramon Marie RN RN bm8 Deepika Jim RN pf1 Corrections: (The following items were deleted from the chart) 11/26 22:06 22:06 BASIC METABOLIC PANEL+C.LAB.BRZ ordered. EDMS EDMS 22:06 22:06 CBC+H.LAB.BRZ ordered. EDMS EDMS 22:06 22:06 D-DIMER+COAG.LAB.BRZ ordered. EDMS EDMS 22:06 22:06 HEPATIC FUNCTION+C.LAB.BRZ ordered. EDMS EDMS 22:06 22:06 MAGNESIUM+C.LAB.BRZ ordered. EDMS EDMS 22:06 22:06 PROBNP+C.LAB.BRZ ordered. EDMS EDMS 22:06 22:06 PROTIME (+INR)+COAG.LAB.BRZ ordered. EDMS EDMS 22:06 22:06 Troponin High Sensitivity+C.LAB.BRZ ordered. EDMS EDMS 11/27 02:12 01:40 sp4 guillermina
[2023-11-28 01:51] LABS: Barbiturates NEGATIVE (NEGATIVE); Benzodiazepines NEGATIVE (NEGATIVE); Cocaine NEGATIVE (NEGATIVE); METHAMPHETAM NEGATIVE (NEGATIVE); Methadone NEGATIVE (NEGATIVE); Opiates NEGATIVE (NEGATIVE); Phencyclidine NEGATIVE (NEGATIVE); THC Cannibis NEGATIVE (NEGATIVE)
--- NOTE | 2023-11-28 01:51 | P.HP ---
Certification for Inpatient Patient admitted to: Observation With expected LOS: <2 Midnights Patient will require the following post-hospital care: None Practitioner: I am a practitioner with admitting privileges, knowledge of patient current condition, hospital course, and medical plan of care. Services: Services provided to patient in accordance with Admission requirements found in Title 42 Section 412.3 of the Code of Federal Regulations Patient History Date of Service: 11/28/23 Reason for admission: Chest pain, shortness of breath History of Present Illness: 63-year-old male with past medical history of HTN/HLD/systolic CHF with EF of 30 to 35% on last echo, follows with Dr. De Guzman, history of mural thrombus of left ventricle, chronic anticoagulation with Eliquis, hepatitis, TIA, CKD stage IV baseline creatinine 2.5-3.3; presented today because of substernal chest pain, more pressure-like, nonradiating onset since last 3 days, intermittent, associated with intermittent shortness of breath with activity now. Patient stated Hydrance with medication He denies any dizziness or headache. He denies any cough or fever On arrival in the ED vital signs were stable afebrile, EKG showed normal sinus rhythm with no ST segment changes, similar to previous EKG, chest x-ray shows low volume. No pulmonary edema or pulmonary infiltrate. Initial troponin was elevated at 812, proBNP elevated at 10 726, CBC was unremarkable, BMP shows creatinine of 2.0about baseline Patient is being admitted for possible non-STEMI as well as a CHF exacerbation Allergies Penicillins Allergy (Verified 10/27/22 21:16) Hives/Rash Home Medications: Pantoprazole [Protonix Tab*] 40 mg PO DAILY #30 tab 09/06/21 Aspirin [Aspirin EC] 81 mg PO DAILY #30 tab 10/29/22 Amiodarone HCl [Cordarone*] 200 mg PO DAILY 08/22/23 Ferrous Sulfate 325 mg PO DAILY 08/22/23 Hydralazine HCl 100 mg PO Q8HR 08/22/23 Isosorbide Dinit [Isordil*] 20 mg PO TID 08/22/23 Sofosbuvir/Velpatasvir [Epclusa 400 mg-100 mg Tablet] 1 each PO DAILY 08/22/23 Torsemide [Soaanz] 40 mg PO BID 30 Days #60 tab 08/24/23 Apixaban [Eliquis] 5 mg PO BID 10/13/23 Atorvastatin Calcium [Lipitor] 40 mg PO DAILY 10/13/23 predniSONE [Prednisone*] 20 mg PO DAILY 10/13/23 Codeine/APAP [Tylenol W/Codeine #3 tab] 1 tab PO Q6HP PRN #20 tab 10/14/23 - Past Medical/Surgical History Diabetic: No -: Hypertension -: Systolic congestive heart failure secondary to alcoholic cardiomyopathy -: Alcoholic Pancreatitis -: TIA -: Gout -: CKD 4 (Dr. Rossi/ Dr. Cabral) -: CAD -: Mural thrombus-left ventricle on warfarin -: CVA -: Hep C--rec'd treatment 08/2023 -: Cardiac stent placement July 2019 -: removal of L hand 5th digit -: Cardiac catheterization 08/2023 Psychosocial/ Personal History: Patient currently lives at home with his and is on disability due to heart condition. - Family History Father -: Cancer, Liver disease Mother -: GI disease, Other (see notes) Notes: NA - Social History Alcohol use: Yes CD- Drugs: No Caffeine use: Yes Place of Residence: Home Review of Systems Respiratory: Shortness of Breath, SOB with Excertion Cardiovascular: Chest Pain Physical Examination - Physical Exam General: Alert, In no apparent distress, Oriented x3, Cooperative HEENT: Atraumatic, Normocephalic, PERRLA Neck: Supple, 2+ carotid pulse no bruit, JVD not distended Respiratory: Diminished, Crackles/rales Cardiovascular: No edema, Regular rate/rhythm, Normal S1 S2, No murmurs Gastrointestinal: Normal bowel sounds, Soft and benign, Non-distended, No ascites, No tenderness Musculoskeletal: No clubbing, No swelling Integumentary: No rashes, No breakdown, No significant lesion Neurological: Normal gait, Normal speech, Normal strength at 5/5 x4 extr, Normal tone - Studies Laboratory Data (last 24 hrs) 11/27/23 11/27/23 11/27/23 22:28 22:28 22:28 WBC 7.30 Hgb 13.8 Hct 42.2 Plt Count 172 PT 12.6 H INR 1.15 Sodium 136 Potassium 3.7 BUN 20 H Creatinine 2.00 H Glucose 77 Magnesium 1.8 Total Bilirubin 1.5 H AST 23 ALT 15 L Alkaline Phosphatase 230 H Assessment and Plan - Plan Impression Atypical chest pain with elevated troponinpossible non-STEMI Acute systolic CHF exacerbation Hypertension HLD Chronic anticoagulation for mural thrombus CKD stage IVstable Plan Will admit patient to telemetry Manage patient for the following Presumed non-STEMIinitiate aspirin/Plavix Cardiology consult in a.m. Continue Eliquis Start Nitropatch now and monitor for resolution of chest pain Morphine as needed Continue statin Acute CHF exacerbationLasix 40 mg every 8 Fluid restriction to less than 1.2 L Follow daily weight CKDcreatinine stable, follow response to diuretics Hypertensioncontrolled, follow-up with increased diuresis DVT prophylaxison Eliquis Advance directivefull code - Advance Directives Does patient have a Living Will: No Does patient have a Durable POA for Healthcare: No
[2023-11-28 01:55] LABS: Albumin 3.1 g/dL (3.4-5.0); Albumin/Globulin Ratio 0.6 (1.1-1.8); Bilirubin Direct 0.7 mg/dL (0-0.2); Bilirubin Indirect, Calculated 0.7 mg/dL (0.2-0.8); Bilirubin Total 1.4 mg/dL (0.2-1.0); Protein, Total 8.1 g/dL (6.4-8.2)
[2023-11-28] MEDS: FUROSEMIDE 40 MG/4 ML VIAL IV SCH (02:00)
[2023-11-28 02:13] LABS: Thyroid Stimulating Hormone 0.182 uIU/mL (0.358-3.740)
[2023-11-28 02:17] LABS: Troponin High Sensitivity 801.1 pg/mL (<58.9)
[2023-11-28 04:04] VITALS: BMI 24.5
[2023-11-28] MEDS: MORPHINE 2 MG/ML SYR IV PRN (05:33)
[2023-11-28] MEDS ORDERED: APIXABAN 5 MG TABLET PO SCH (09:00)
[2023-11-28] MEDS: DAPAGLIFLOZIN PROPANEDIOL 10 MG PO SCH (09:00)
[2023-11-28] MEDS: TORSEMIDE 20 MG TAB PO SCH (09:06)
[2023-11-28] MEDS: CLOPIDOGREL 75 MG TABLET PO SCH (09:06)
[2023-11-28] MEDS: carvediloL 12.5 MG TAB PO SCH (09:07)
[2023-11-28] MEDS: ASPIRIN EC 81 MG TAB PO SCH (09:07)
[2023-11-28] MEDS: FERROUS SULFATE 325 MG TAB PO SCH (09:07)
[2023-11-28] MEDS: FOLIC ACID 1 MG TABLET PO SCH (09:07)
[2023-11-28] MEDS: PANTOPRAZOLE 40MG TABLET PO SCH (09:07)
[2023-11-28] MEDS: ISOSORBIDE DINIT 20 MG TAB PO SCH (09:08)
[2023-11-28] MEDS: HYDRALAZINE HCL 25 MG TABLET PO SCH (09:08)
[2023-11-28] MEDS: AMIODARONE HCL 200 MG TAB PO SCH (09:08)
[2023-11-28] MEDS: CALCIUM ACETATE 667 MG TAB PO SCH (09:08)
[2023-11-28] MEDS: MORPHINE 4 MG/ML SYR IV PRN (09:18)
[2023-11-28] MEDS: HYDROMORPHONE HCL 1 MG/ML INJ IV PRN (11:59)
--- NOTE | 2023-11-28 12:45 | RAD REPORT ---
EXAM DESCRIPTION: RAD - Chest Single View - 11/28/2023 5:58 am CLINICAL HISTORY: 63 years, Male, CHEST PAIN COMPARISON: None FINDINGS: 1 views of the chest was obtained. Prior films were compared. There is slight decreased lung volume. Mediastinum: The cardiomediastinal silhouette appears normal in size and shape. Lungs: No areas of consolidations or masses are identified. Heart: The heart is prominent. Thoracic aorta: The thoracic aorta demonstrate to be normal. Pulmonary vasculature: The pulmonary vasculature is normal in distribution. Pleura: The costophrenic angles demonstrate to be sharp. Osseous structures: The bony structures demonstrate to be within normal limits. Other: External EKG leads within the [id number] limits diagnosis. IMPRESSION: Slight decreased lung volume. Mild cardiomegaly. Electronically signed by: Tae Johnson MD 11/27/2023 10:45 PM CDT Due to temporary technical issues with the PACS/Fluency reporting system, reports are being signed by the in house radiologist without review as a courtesy to ensure prompt reporting. The interpreting r adiologist is fully responsible for the content of the report.
[2023-11-28] MEDS: BENZONATATE 100 MG CAP PO PRN (14:55)
--- NOTE | 2023-11-28 17:46 | EKG ---
Test Date: 2023-11-27 Test Time: 22:06:23 Modeling Agency Manager: SANTHOSH MEASUREMENT RESULTS: Intervals: Rate: 93 NC: 234 QRSD: 148 QT: 390 QTc: 484 [place]: P: 75 NC: 234 QRS: -69 T: 121 INTERPRETIVE STATEMENTS: Sinus rhythm with 1st degree AV block Left axis deviation Left bundle branch block Abnormal ECG Compared to ECG 10/13/2023 09:16:27 Left-axis deviation now present Left bundle-branch block now present Electronically Signed On 11-28-23 17:45:57 CDT by Shamar De Guzman
[2023-11-28] MEDS: ATORVASTATIN 40 MG TAB PO SCH (20:27)
[2023-11-28] MEDS: ACETAMINOPHEN 500 MG TAB PO PRN (20:27)
[2023-11-28] MEDS: HEPARIN/D5W 25,000 UNIT/500 ML BAG IV SCH (22:57)
--- NOTE | 2023-11-28 23:02 | CON ---
Date of Consultation: 11/28/2023 Reason For Consultation: Chest pain, positive for shortness of breath. History Of Present Illness: A 63-year-old with history of hypertension, dyslipidemia, systolic heart failure, ejection fraction in the mid 30s, chronic kidney disease, LV thrombus, on chronic anticoagu lation, history of stroke, presented because of pain, had chest pain, retrosternal, intermittent for the past 3 days along with shortness of breath and mild orthopnea. Denies having nausea, vomiting, o r diaphoresis. Past Medical History: As outlined above in HPI. Medications: Refer reconciliation sheet for detailed list. Allergies: PENICILLIN. Family History: No premature coronary artery disease or cancer. Social History: he does not smoke or drink. Does not use any drugs. Review of Systems: All systems reviewed and they were negative except as mentioned in the HPI. Physical Examination: Vital Signs: Reviewed. Head and Neck: Pupils are equal, reactive to light. Intact eye movements. No cervical lymphadenopa thy. Neck is supple. Thyroid is not enlarged. Lungs: Decreased breathing sounds bilaterally. No accessory muscle use or muscle retraction. Heart: Irregular. No extra sounds. Abdomen: Soft, nontender. Bowel sounds positive. No organomegaly. No masses or hernia. No rigidi ty or rebound. Extremities: No clubbing, cyanosis. Intact pulses. Skin: No rash or nodule. Neurologic: Alert, awake, oriented x3. No acute focal deficits appreciated. Lymph Nodes: No cervical or axillary lymphadenopathy. Investigations: BUN 20, creatinine is 2.0, is better than before. Troponin 812, down [place]55[place] [address], and his hemoglobin is 13.8, and his chest x-ray showed cardiomegaly. Assessment/recommendation: 1.Elevated troponin with chest pain. Recommend to obtain Lexiscan nuclear stress test to further ev aluate and plan accordingly. He has been always with elevated troponin pretty much most of his hospi talizations and no active ischemia were found, so I recommend to do Lexiscan nuclear stress test and plan accordingly. 2.Congestive heart failure, appears to be slightly fluid overloaded on Lasix. Carefully doing so, m onitor BUN, creatinine, electrolytes. 3.History of LV thrombus, on chronic anticoagulation, to be continued. 4.Dyslipidemia. Continue statin. SR/MODL Voice ID: [id number] Report ID: [id number]
[2023-11-29 03:47] LABS: Absolute Basophils 0.1 K/uL (0-0.5); Absolute Eosinophils 0.2 K/uL (0-0.5); Absolute Lymphocytes (CBC) 0.8 K/uL (0.7-4.9); Absolute Monocytes 1.5 K/uL (0.1-1.3); Absolute Neutrophil 7.1 K/uL (1.8-8.0); Basophils % 0.9 % (0-1.3); Eosinophils % 1.9 % (0-4.4); Hematocrit 38.1 % (39.6-49.0); Hemoglobin 12.6 g/dL (13.6-17.9); Lymphocytes % 8.5 % (15.3-44.8); MCH 27.7 pg (27.0-35.0); MCV 83.9 fL (80-100); MPV 9.3 fL (7.6-11.3); Monocytes % 15.5 % (3.3-12.3); Neutrophils % 73.2 % (41.7-73.7); Platelets 163 thou/uL (152-406); RBC Red Blood Cell Count 4.54 M/uL (4.33-5.43); Red Cell Distribution Width 17.8 % (12.1-15.2)
[2023-11-29] MEDS: HEPARIN 5000 UNIT/ML 1 ML VIAL IV SCH (04:00)
[2023-11-29 04:08] LABS: Albumin/Globulin Ratio 0.6 (1.1-1.8); Anion Gap 11.7 mEq/L (5.0-15.0); Bilirubin Total 3.1 mg/dL (0.2-1.0); Globulin 4.8 g/dL (2.3-3.5); Potassium 3.7 mEq/L (3.5-5.1); Protein, Total 7.8 g/dL (6.4-8.2)
[2023-11-29] MEDS ORDERED: REGADENOSON 0.4 MG/5 ML SYR IV ONE (10:22)
--- NOTE | 2023-11-29 10:36 | P.PN ---
Subjective Date of Service: 11/29/23 Chief Complaint: Chest pain, shortness of breath Subjective: No new changes (coughing up thick sputum, container at bedside for sputum cx) <Mirela Andrewsnolan Cerrato - Last Filed: 11/29/23 10:31> Date of Service: 11/29/23 <Jeet Hernandez - Last Filed: 11/29/23 12:16> Review of Systems 10-point ROS is otherwise unremarkable ENT: Throat Pain Respiratory: As per HPI Cardiovascular: Edema (improved), As per HPI <AndrewsAby Cerrato - Last Filed: 11/29/23 10:31> Physical Examination - Vital Signs Temperature: 97.1 F Blood Pressure: 138/85 Pulse: 85 Respirations: 16 Pulse Ox (%): 92 - Physical Exam General: Alert, In no apparent distress, Oriented x3 HEENT: Atraumatic, Normocephalic Neck: JVD not distended Respiratory: Normal air movement Cardiovascular: Normal pulses, Regular rate/rhythm Capillary refill: <2 Seconds Gastrointestinal: Soft and benign Musculoskeletal: No clubbing, No swelling Integumentary: No rashes Neurological: Normal speech, Normal tone Lymphatics: No axilla or inguinal lymphadenopathy External genitalia: Deferred Rectal: Deferred <AndrewsMirelanolan Cerrato - Last Filed: 11/29/23 10:31> Assessment And Plan - Plan Assessment and Plan - Plan Impression Atypical chest pain with elevated troponinpossible non-STEMI Acute systolic CHF exacerbation Hypertension HLD Chronic anticoagulation for mural thrombus CKD stage IVstable Plan Will admit patient to telemetry Manage patient for the following Presumed non-STEMIinitiate aspirin/Plavix - pt on Heparin drip since admission Cardiology consult - Dr. De Guzman suggests NM (11/27) stress ordered today (11/28) - done - awaiting results Continue Eliquis (this has not been ordered inpatient) - will address post NM stress Start Nitropatch now and monitor for resolution of chest pain Morphine as needed - changed to Dilaudid Continue statin Acute CHF exacerbationLasix 40 mg every 8, also on Torsemide 20mg po daily (will clarify) Fluid restriction to less than 1.2 L Follow daily weight CKDcreatinine stable, follow response to diuretics Hypertensioncontrolled, follow-up with increased diuresis DVT prophylaxison Eliquis Advance directivefull code - Advance Directives Does patient have a Living Will: No Does patient have a Durable POA for Healthcare: No <Aby Andrews - Last Filed: 11/29/23 10:31> - Plan Pt seen and examined. I agree with the note by the COMMUNITY DEVELOPMENT COORDINATOR. Pt is going to NM stress test this am. He complains of right elbow pain due to gout. Will give prednisone. Will continue eliquis and torsemide with other home meds. Will dc heparin drip and lasix. <Jeet Hernandez - Last Filed: 11/29/23 12:16>
[2023-11-29] MEDS: predniSONE 20 MG TAB PO SCH (13:05)
--- NOTE | 2023-11-29 13:41 | EKG ---
Test Date: 2023-11-28 Test Time: 01:39:34 [employer] Equipment Tender: RV MEASUREMENT RESULTS: Intervals: Rate: 84 SC: 218 QRSD: 154 QT: 416 QTc: 491 [place]: P: 82 SC: 218 QRS: -71 T: 102 INTERPRETIVE STATEMENTS: Sinus rhythm with 1st degree AV block Left bundle branch block Abnormal ECG Compared to ECG 11/27/2023 22:06:23 Left-axis deviation no longer present Electronically Signed On 11-29-23 13:38:23 CDT by Shamar De Guzman
--- NOTE | 2023-11-29 14:35 | TREADPHA ---
DX: CHEST PAIN Date of Study: 11/29/2023 Ht: 6' 3 " Wt: 195 lb 0 oz Consulting Physician: ODALIS MEDICATIONS: PROVENTIL, ASPIRIN, LIPITOR, COREG, LASIX, HEPARIN HISTORY: HYPERTENSION, MYOCARDIAL INFARCTION, CARDIAC STENT, NO SMOKING, NO DRUGS, OCCASIONAL DRINKS. PHYSICIAL EXAMINATION: RESTING B.P.: 134/83 RESTING H.R.: 83 RESTING EKG: SINUS RHYTHM WITH PREMATURE VENTRICULAR AND ATRIAL COMPEXES. LEFT VENTRICULAR HYPERTROPHY. PROTOCOL: LEXISCAN EXERCISE TIME: 3:30 B.P. AT PEAK STRESS: 121/75 IMPRESSION: LEXISCAN INJECTED. CARDIOLITE INJECTED. SEE NUCLEAR MEDICINE REPORT. NO CHEST PAIN. NO VENTRICULAR TACHYCARDIA. NO SUPRAVENTRICULAR TACHYCARDIA. NO ARRYHTMIAS. PREMATURE ATRIAL COMPLEXES NOTED. PREMATURE ATRIAL COMPEXES NO EKG CHANGES OF ISCHEMIA WITH LEXISCAN.
--- NOTE | 2023-11-29 15:21 | RAD REPORT ---
EXAM DESCRIPTION: NM - Rest Stress Cardiac Imaging - 11/29/2023 11:06 am CLINICAL HISTORY: CP COMPARISON: Rest Stress Cardiac Imaging dated 08/14/2022 TECHNIQUE: The patient was administered approximately 10.7 mCi of Tc 99m Sestamibi prior to resting SPECT imaging of the heart. The patient was then administered approximately 29.9 mCi of Tc 99m Sestam ibi following exercise or pharmacologic stress. Multiplanar SPECT images were reviewed. FINDINGS: No stress induced ischemic defect is seen to suggest stress induced ischemia. Stable fixed defects involving the inferior wall, adjacent lateral wall, and small segments of the anterior wall mid to apical segments, suggesting sequelae of remote infarct. The end diastolic volume is 211 ml, the end systolic volume is 142 ml, and the ejection fraction is 3 3 %. IMPRESSION: No evidence of stress induced ischemia. Stable fixed defects predominantly involving the inferior wall, suggesting sequelae remote ischemia. Low left ventricular ejection fraction, 33%, improved from 19% of prior exam.
--- NOTE | 2023-11-29 19:56 | PN ---
Date of Progress Note: 11/29/2023 Subjective: Seen by bedside, doing well. No chest pain today. Review of Systems: No chest pain, shortness of breath, orthopnea, cough, nausea, vomiting, diarrhea. All other systems reviewed, they are negative. Physical Examination: Vital Signs: Reviewed. Head and Neck: Pupils are equal, reactive to light. Intact eye movements. No cervical lymphadenopa thy. No JVD. Neck is supple. Thyroid is not enlarged. Lungs: Clear to auscultation bilaterally. No rhonchi, wheezing, or crackles. No accessory muscle u se. Heart: Irregular. No extra sounds. Abdomen: Soft, nontender. Bowel sounds positive. No organomegaly. No masses or hernia. No rigidi ty or rebound. Extremities: Trace edema bilaterally. No clubbing, cyanosis. Intact pulses. Skin: No rash or nodule. Neurologic: Alert, awake, oriented x3. No acute focal deficits appreciated. Investigations: Stress test was negative. BUN 34, creatinine is 2.59. Assessment/recommendation: 1.Elevated troponin with chest pain, but pain is atypical and troponins trending flat. Stress test was negative. This is likely a demand and the patient does have elevated troponin always. 2.CHF. Appears to be euvolemic at the present time. We will continue current therapy. Recommend N ephrology evaluation due to the kidney failure. 3.Acute on chronic renal failure. Recommend Nephrology consultation. 4.Atrial fibrillation, rate is controlled. Continue amiodarone and Eliquis; however, drop the Eliqu is dose to 2.5 mg twice a day. SR/MODL Voice ID: [id number] Report ID: [id number]
[2023-11-29] MEDS ORDERED: APIXABAN 5 MG TABLET PO SCH (21:00)
[2023-11-29] MEDS: APIXABAN 2.5 MG TABLET PO SCH (21:39)
[2023-11-30 05:20] LABS: Absolute Lymphocytes (CBC) 0.3 K/uL (0.7-4.9); Absolute Monocytes 0.9 K/uL (0.1-1.3); Absolute Neutrophil 8.9 K/uL (1.8-8.0); Basophils % 0.1 % (0-1.3); Hematocrit 39.3 % (39.6-49.0); Hemoglobin 12.8 g/dL (13.6-17.9); Lymphocytes % 3.2 % (15.3-44.8); MCH 27.6 pg (27.0-35.0); MCHC 32.6 g/dL (32.0-36.0); MCV 84.9 fL (80-100); MPV 9.5 fL (7.6-11.3); Monocytes % 9.1 % (3.3-12.3); Neutrophils % 87.6 % (41.7-73.7); Platelets 169 thou/uL (152-406); RBC Red Blood Cell Count 4.63 M/uL (4.33-5.43); Red Cell Distribution Width 17.5 % (12.1-15.2)
[2023-11-30 05:37] LABS: Anion Gap 14.6 mEq/L (5.0-15.0); Potassium 3.6 mEq/L (3.5-5.1)
[2023-11-30] MEDS: TORSEMIDE 20 MG TAB PO SCH (07:52)
[2023-11-30 08:33] LABS: Blood Morphology Comment NOT SEEN (NOT SEEN); Platelet Estimate ADEQ; White Blood Cell Scan OK (OK)
--- NOTE | 2023-11-30 08:51 | P.PN ---
Subjective Date of Service: 11/30/23 Chief Complaint: Chest pain, shortness of breath Subjective: No new changes (states he is feeling well, looks dry) <Aby Andrews - Last Filed: 11/30/23 08:45> Date of Service: 11/30/23 <Harlan Hernandezsonianitin Bertha - Last Filed: 11/30/23 21:56> Review of Systems 10-point ROS is otherwise unremarkable General: As per HPI Respiratory: As per HPI Cardiovascular: As per HPI <Aby Andrews - Last Filed: 11/30/23 08:45> Physical Examination - Vital Signs Temperature: 97.8 F Blood Pressure: 118/71 Pulse: 72 Respirations: 16 Pulse Ox (%): 93 - Physical Exam General: Alert, In no apparent distress, Oriented x3, Other (looks dry) HEENT: Atraumatic, Normocephalic, Other (voice less hoarse/stronger) Neck: JVD not distended Respiratory: Normal air movement Cardiovascular: Normal pulses, Regular rate/rhythm Capillary refill: <2 Seconds Gastrointestinal: Soft and benign Musculoskeletal: No clubbing, No swelling Integumentary: No rashes Neurological: Normal speech, Normal tone Lymphatics: No axilla or inguinal lymphadenopathy External genitalia: Deferred Rectal: Deferred - Studies Laboratory Data (last 24 hrs) 11/29/23 11/29/23 13:25 09:00 APTT 35.6 54.1 H <Aby Andrews - Last Filed: 11/30/23 08:45> - Studies Microbiology Data (last 24 hrs): 11/29/23 12:17 Sputum Sputum Gram Stain - Final <Marciano Hernandezshen Stone - Last Filed: 11/30/23 21:56> Assessment And Plan - Plan Assessment and Plan - Plan Impression Atypical chest pain with elevated troponinpossible non-STEMI Acute systolic CHF exacerbation Hypertension HLD Chronic anticoagulation for mural thrombus CKD stage IVstable Plan Will admit patient to telemetry Manage patient for the following Presumed non-STEMIinitiate aspirin/Plavix - pt on Heparin drip since admission, stopped 11/28. pt now just on Eliquis/Plavix/ASA Cardiology consult - Dr. De Guzman suggests NM (11/27) stress ordered today (11/28)done, with negative results Restart Eliquis at 2.5mg BID dosing post termination of Heparin drip Start Nitropatch now and monitor for resolution of chest pain-stopped as pt on Imdur Morphine as needed - changed to Dilaudid 11/28 Continue statin Acute CHF exacerbationLasix 40 mg every 8, also on Torsemide 20mg po daily (will clarify), stopped lasix 11/28, stopped torsemide 11/29 Pt over- diuresed. Will start maintanence 50ml/hr NS with NS 250ml bolus Dr. Rossi consulted Fluid restriction to less than 1.2 L Follow daily weight CKDcreatinine stable, follow response to diuretics Hypertensioncontrolled, follow-up with increased diuresis DVT prophylaxison Eliquis Advance directivefull code - Advance Directives Does patient have a Living Will: No Does patient have a Durable POA for Healthcare: No <Aby Andrews - Last Filed: 11/30/23 08:45> - Plan Pt seen and examined. I agree with the note by the MEDIA RELATIONS ASSOCIATE. CR is 3.12 <- 2.59. Will give gentle hydration. Consulted Nephrology. The right elbow gout pain improved with prednisone. <Jeet Hernandez - Last Filed: 11/30/23 21:56>
[2023-11-30] MEDS ORDERED: NA CHLORIDE 0.9% 1,000 ML IV ONE (09:00)
[2023-11-30] MEDS: NA CHLORIDE 0.9% 250 ML IV ONE (09:30)
[2023-11-30] MEDS: NA CHLORIDE 0.9% 1,000 ML IV SCH (09:32)
--- NOTE | 2023-11-30 12:05 | P.CNS ---
Date of Consult: 11/30/23 Reason for Consult: BRIDGER/ CKD Requesting Physician: Jeet Hernandez Chief Complaint: Chest pain, shortness of breath History of Present Illness: 63-year-old male with past medical history of HTN/HLD/systolic CHF with EF of 30 to 35% on last echo, follows with Dr. De Guzman, history of mural thrombus of left ventricle, chronic anticoagulation with Eliquis, hepatitis, TIA, CKD stage IV baseline creatinine 2.5-3.3; presented today because of substernal chest pain, more pressure-like, nonradiating onset since last 3 days, intermittent, associated with intermittent shortness of breath with activity now. Patient stated Hydrance with medication He denies any dizziness or headache. He denies any cough or fever On arrival in the ED vital signs were stable afebrile, EKG showed normal sinus rhythm with no ST segment changes, similar to previous EKG, chest x-ray shows low volume. No pulmonary edema or pulmonary infiltrate. Initial troponin was elevated at 812, proBNP elevated at 10 726, CBC was unremarkable, BMP shows creatinine of 2.0about baseline Patient is being admitted for possible non-STEMI as well as a CHF exacerbation Allergies Penicillins Allergy (Verified 10/27/22 21:16) Hives/Rash Home medications list reviewed: Yes Home Medications: Pantoprazole [Protonix Tab*] 40 mg PO DAILY #30 tab 09/06/21 Aspirin [Aspirin EC] 81 mg PO DAILY #30 tab 10/29/22 Amiodarone HCl [Cordarone*] 200 mg PO DAILY 08/22/23 Ferrous Sulfate 325 mg PO DAILY 08/22/23 Hydralazine HCl 100 mg PO Q8HR 08/22/23 Isosorbide Dinit [Isordil*] 20 mg PO TID 08/22/23 Sofosbuvir/Velpatasvir [Epclusa 400 mg-100 mg Tablet] 1 each PO DAILY 08/22/23 Apixaban [Eliquis] 5 mg PO BID 10/13/23 Atorvastatin Calcium [Lipitor] 40 mg PO BEDTIME 10/13/23 Calcium Acetate [Phoslo] 2 cap PO TIDWM 11/28/23 Dapagliflozin Propanediol [Farxiga] 10 mg PO DAILY 11/28/23 Folic Acid 1 mg PO DAILY 11/28/23 Torsemide [Demadex] 20 mg PO DAILY 11/28/23 carvediloL [Coreg] 12.5 mg PO BID 11/28/23 - Past Medical/Surgical History Diabetic: No -: HTN -: 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 Rossi/ Dr. 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 - Family History Father Medical History: Cancer, Liver disease Mother Medical History: GI disease, Other (see notes) Notes: NA - Social History Smoking Status: Unknown if ever smoked Alcohol use: Yes CD- Drugs: Yes Caffeine use: Yes Place of Residence: Home Review of Systems 10-point ROS is otherwise unremarkable Physical Examination Temp Pulse Resp BP Pulse Ox 97.8 F 72 16 118/71 93 11/30/23 08:50 11/30/23 08:50 11/30/23 08:50 11/30/23 08:50 11/30/23 08:50 General: In no apparent distress, Oriented x3, Cooperative HEENT: Atraumatic Neck: Supple Respiratory: Clear to auscultation bilaterally Cardiovascular: No edema, Regular rate/rhythm Gastrointestinal: Soft and benign, Non-distended Musculoskeletal: No clubbing, No contractures Integumentary: No rashes, No cyanosis Neurological: Normal speech Laboratory Data (last 24 hrs) 11/29/23 13:25 APTT 35.6 Imagings Data: EXAM DESCRIPTION: RAD - Chest Single View - 11/28/2023 5:58 am CLINICAL HISTORY: 63 years, Male, CHEST PAIN COMPARISON: None FINDINGS: 1 views of the chest was obtained. Prior films were compared. There is slight decreased lung volume. Mediastinum: The cardiomediastinal silhouette appears normal in size and shape. Lungs: No areas of consolidations or masses are identified. Heart: The heart is prominent. Thoracic aorta: The thoracic aorta demonstrate to be normal. Pulmonary vasculature: The pulmonary vasculature is normal in distribution. Pleura: The costophrenic angles demonstrate to be sharp. Osseous structures: The bony structures demonstrate to be within normal limits. Other: External EKG leads within the [id number] limits diagnosis. IMPRESSION: Slight decreased lung volume. Mild cardiomegaly. LEFT VENTRICULAR WALL MOTION: MODERATE GLOBAL HYPOKINESIS DOPPLER/COLOR FLOW: SEE BELOW COMMENTS: 1. MODERATELY DEPRESSED LEFT VENTRICULAR EJECTION FRACTION 30-35% 2. MODERATE GLOBAL HYPOKINESIS 3. LEFT ATRIAL ENLARGEMENT 4. MILD MITRAL REGURGITATION 5. MODERATE TRICUSPID REGURGITATION 6. NO LEFT VENTRICULAR THOMBUS SEEN ON THIS EXAM Conclusions/Impression: Stage I BRIDGER in the setting of diuresis and relative hypotension CKD IIIb -No NSAIDs -Agree with holding diuretics and gentle IVF -Holding parameter for Hydralazine -Continue Farxiga Hyponatremia -Continue the fluid restriction HTN with CKD/ CHF -Continue Coreg -Continue Isosorbid -Holding parameter added to Hydralazine & reduced Systolic CHF, A/C Moderate TR -Daily weight -Low sodium diet Anemia in chronic illness -Monitor H&H Case reviewed with the hospitalist team Thank you kindly for the consultation
--- NOTE | 2023-11-30 12:07 | RAD REPORT ---
EXAM DESCRIPTION: US - Renal Ultrasound-Complete - 11/30/2023 11:35 am CLINICAL HISTORY: Acute renal insufficiency COMPARISON: None FINDINGS: The right kidney measures 10 cm with a borderline increased echotexture. 2 centimeter righ t renal cyst The left kidney measures 10 cm with a borderline increased echotexture. Hydronephrosis is not seen. No gross abnormality of bladder IMPRESSION: No hydronephrosis Borderline increased echotexture
[2023-11-30] MEDS: HYDRALAZINE HCL 25 MG TABLET PO SCH ×2 (12:10→13:25)
[2023-12-01 03:07] LABS: Absolute Lymphocytes (CBC) 0.4 K/uL (0.7-4.9); Absolute Monocytes 0.9 K/uL (0.1-1.3); Absolute Neutrophil 10.5 K/uL (1.8-8.0); Eosinophils % 0.1 % (0-4.4); Hemoglobin 12.1 g/dL (13.6-17.9); MCH 27.3 pg (27.0-35.0); MCHC 32.6 g/dL (32.0-36.0); MCV 83.7 fL (80-100); MPV 9.2 fL (7.6-11.3); Monocytes % 7.3 % (3.3-12.3); Neutrophils % 89.6 % (41.7-73.7); Nucleated Red Blood Cells % 0.1 % (0-0); Platelets 197 thou/uL (152-406); RBC Red Blood Cell Count 4.42 M/uL (4.33-5.43); Red Cell Distribution Width 17.7 % (12.1-15.2)
[2023-12-01 03:23] LABS: Albumin 2.6 g/dL (3.4-5.0); Albumin/Globulin Ratio 0.5 (1.1-1.8); Protein, Total 7.6 g/dL (6.4-8.2)
[2023-12-01] MEDS: NA CHLORIDE 0.9% 250 ML IV ONE (07:48)
[2023-12-01 12:46] VITALS: O2SAT 99
[2023-12-01] MEDS: SODIUM CHLORIDE 1 GM TAB PO SCH (14:15)
[2023-12-01] MEDS: NA CHLORIDE 0.9% 1,000 ML IV SCH (14:17)
--- NOTE | 2023-12-01 16:27 | P.PN ---
Subjective Date of Service: 12/01/23 Chief Complaint: Chest pain, shortness of breath Subjective: No C/O voiced (pt does not appear overloaded) <Aby Andrewslen - Last Filed: 12/01/23 16:20> Date of Service: 12/01/23 <Jeet Hernandez Bertha - Last Filed: 12/01/23 22:28> Review of Systems 10-point ROS is otherwise unremarkable General: As per HPI Respiratory: As per HPI Cardiovascular: As per HPI <Aby Andrewslen - Last Filed: 12/01/23 16:20> Physical Examination - Vital Signs Temperature: 97.5 F Blood Pressure: 121/78 Pulse: 63 Respirations: 18 Pulse Ox (%): 99 - Physical Exam General: Alert, In no apparent distress, Oriented x3 HEENT: Atraumatic, Normocephalic Neck: JVD not distended Respiratory: Normal air movement Cardiovascular: Normal pulses Capillary refill: <2 Seconds Gastrointestinal: Soft and benign Musculoskeletal: No swelling, No contractures Neurological: Normal speech, Normal tone Lymphatics: No axilla or inguinal lymphadenopathy External genitalia: Deferred Rectal: Deferred - Studies Microbiology Data (last 24 hrs): 11/29/23 12:17 Sputum Sputum Gram Stain - Final 11/29/23 12:17 Sputum Culture & Sensitivity - Final <Aby Andrewslen - Last Filed: 12/01/23 16:20> - Studies Microbiology Data (last 24 hrs): 11/29/23 12:17 Sputum Sputum Gram Stain - Final 11/29/23 12:17 Sputum Culture & Sensitivity - Final <Jeet Hernandez Bertha - Last Filed: 12/01/23 22:28> Assessment And Plan - Plan Assessment and Plan - Plan Impression Atypical chest pain with elevated troponinpossible non-STEMI Acute systolic CHF exacerbation, not overloaded 11/29, 11/30 Hypertension HLD Chronic anticoagulation for mural thrombus CKD Plan Will admit patient to telemetry Manage patient for the following Continue Eliquis/Plavix/ASA Cardiology consult - Dr. De Guzman suggests NM (11/27) stress ordered today (11/28)done, with negative results Restart Eliquis at 2.5mg BID dosing post termination of Heparin drip Continue Imdur Morphine as needed - changed to Dilaudid 11/28 Continue statin Acute CHF exacerbation Pt over- diuresed. Will start maintanence 50ml/hr NS with NS 250ml bolus Dr. Rossi consulted, and has seen patient Fluid restriction to less than 1.2 L Follow daily weight CKDcreatinine stable, follow response to diuretics 11/28, stop diuresis 11/29, continue fluid restriction but add gentle ivf, and give 250ml bolus now, daily weight, continue gentle IVF per Dr. Rossi instruction Hypertensioncontrolled, allow mild permissive hypertension, parameters for hydralazine DVT prophylaxison Eliquis Advance directivefull code - Advance Directives Does patient have a Living Will: No Does patient have a Durable POA for Healthcare: No <Aby Andrews - Last Filed: 12/01/23 16:20> - Plan Pt seen and examined. I agree with the note by the CEMENT BASED MATERIALS PUMP TENDER. Continue gentle hydration. Cr is still trending up. Nephrology is following. DC once cleared by Nephrology <Jeet Hernandez - Last Filed: 12/01/23 22:28>
--- NOTE | 2023-12-01 18:28 | PN ---
Date of Progress Note: 12/01/2023 Subjective: Seen by bedside. Doing well. No shortness of breath, orthopnea, or cough. No nausea, vomiting, or diarrhea. All other systems were reviewed, they were negative. Objective: Vital Signs: Reviewed. Head and Neck: Pupils are equal, reactive to light. Intact eye movements. No JVD. No cervical lym phadenopathy. Neck is supple. Thyroid is not enlarged. Lungs: Clear to auscultation bilaterally. No rhonchi, wheezing, or crackles. No accessory muscle u se. Heart: Regular rate and rhythm. No extra sounds. Abdomen: Soft, nontender. Bowel sounds positive. No organomegaly. No masses or hernia. No rigidi ty or rebound. Extremities: No edema, clubbing, or cyanosis. Intact pulses. Skin: No rash. No nodule. Neuro: Alert, awake, oriented x3. No acute focal deficits appreciated. Investigations: BUN 66, creatinine 3.67. Assessment And Recommendations: 1.Elevated troponin. This is demand ischemia. Stress test was negative. No further workup is need ed at this point. 2.Congestive heart failure, has systolic heart failure. But he is euvolemic right now. In fact, he is over-diuresed. Keep the diuretics on hold and monitor kidney function closely. Once he is back to his baseline, to re-dose diuretics by mouth. To restart him on torsemide again once his creatinin e is back to baseline. 3.Acute on chronic renal failure and Nephrology is on board and the patient is over-diuresed. Diure tics on hold and monitor kidney function. 4.Atrial fibrillation, controlled. Continue current management including Eliquis 2.5 mg twice a day . From Cardiology standpoint, patient is clinically stable and Cardiology will sign off and follow him up as an outpatient. SR/MODL Voice ID: [id number] Report ID: [id number]
--- NOTE | 2023-12-01 22:04 | P.PN ---
Date of Service: 12/01/23 Vital Signs Temp Pulse Resp BP Pulse Ox 97.2 F 68 18 136/77 99 12/01/23 20:00 12/01/23 20:00 12/01/23 21:19 12/01/23 20:00 12/01/23 21:19 Medications Acetaminophen (Acetaminophen 500 Mg Tab) 500 mg PO Q6H PRN PRN Reason: Pain scale 2-4 (Mild) Last Admin: 11/28/23 20:27 Dose: 500 mg Albuterol Sulfate (Albuterol 2.5 Mg/3 Ml Neb Tita) 2.5 mg NEB [id number] PRN PRN Reason: SHORTNESS OF BREATH Amiodarone HCl (Amiodarone Hcl 200 Mg Tab) 200 mg PO DAILY [facility] Last Admin: 12/01/23 07:41 Dose: 200 mg Apixaban (Apixaban 2.5 Mg Tablet) 2.5 mg PO BID [facility] Last Admin: 12/01/23 21:14 Dose: 2.5 mg Aspirin (Aspirin Ec 81 Mg Tab) 81 mg PO DAILY [facility] Last Admin: 12/01/23 07:41 Dose: 81 mg Atorvastatin Calcium (Atorvastatin 40 Mg Tab) 40 mg PO BEDTIME [facility] Last Admin: 12/01/23 21:14 Dose: 40 mg Benzonatate (Benzonatate 100 Mg Cap) 100 mg PO TID PRN PRN Reason: COUGH Last Admin: 11/30/23 20:21 Dose: 100 mg Calcium Acetate (Calcium Acetate 667 Mg Tab) 1,334 mg PO TIDWM [facility] Last Admin: 12/01/23 16:09 Dose: 1,334 mg Carvedilol (Carvedilol 12.5 Mg Tab) 12.5 mg PO BIDWM [facility] Last Admin: 12/01/23 16:09 Dose: 12.5 mg Clopidogrel Bisulfate (Clopidogrel 75 Mg Tablet) 75 mg PO DAILY [facility] Last Admin: 12/01/23 07:40 Dose: 75 mg Ferrous Sulfate (Ferrous Sulfate 325 Mg Tab) 325 mg PO DAILY [facility] Last Admin: 12/01/23 07:41 Dose: 325 mg Folic Acid (Folic Acid 1 Mg Tablet) 1 mg PO DAILY [facility] Last Admin: 12/01/23 07:40 Dose: 1 mg Home Med (Dapagliflozin Propanediol [Farxiga]) 10 mg PO DAILY [facility] Last Admin: 12/01/23 07:42 Dose: Not Given Hydralazine HCl (Hydralazine Hcl 25 Mg Tablet) 50 mg PO TID [facility] Last Admin: 12/01/23 21:14 Dose: 50 mg Hydromorphone HCl (Hydromorphone Hcl 1 Mg/Ml Inj) 1 mg IV Q4H PRN PRN Reason: Pain scale 8-10 (Severe) Last Admin: 12/01/23 21:19 Dose: 1 mg Sodium Chloride (Ns 1000 Ml Ivbag) 1,000 mls @ 50 mls/hr IV .Q20H [facility] Stop: 12/02/23 09:59 Last Admin: 12/01/23 14:17 Dose: 1,000 mls Isosorbide Dinitrate (Isosorbide Dinit 20 Mg Tab) 20 mg PO TID [facility] Last Admin: 12/01/23 21:14 Dose: 20 mg Ondansetron HCl (Ondansetron 4 Mg/2 Ml Vial) 4 mg IV Q8H PRN PRN Reason: NAUSEA / VOMITING Pantoprazole Sodium (Pantoprazole 40mg Tablet) 40 mg PO DAILY [facility]; Protocol Last Admin: 12/01/23 07:41 Dose: 40 mg Prednisone (Prednisone 20 Mg Tab) 40 mg PO DAILY [facility] Last Admin: 12/01/23 07:42 Dose: 40 mg Sodium Chloride (Sodium Chloride 1 Gm Tab) 1 gm PO Q4H [facility] Stop: 12/01/23 22:01 Last Admin: 12/01/23 21:15 Dose: 1 gm Microbiology Results 11/29/23 12:17 Sputum Sputum Gram Stain - Final 11/29/23 12:17 Sputum Culture & Sensitivity - Final Assessment/ Plan: Nephrology No dyspnea No chest pain No acute events overnight Vitals, medications, blood work and imaging reviewed in the chart General: In no apparent distress, Oriented x3, Cooperative HEENT: Atraumatic Neck: Supple Respiratory: Clear to auscultation bilaterally Cardiovascular: No edema, Regular rate/rhythm Gastrointestinal: Soft and benign, Non-distended Musculoskeletal: No clubbing, No contractures Integumentary: No rashes, No cyanosis Neurological: Normal speech Laboratory Data (last 24 hrs) 11/29/23 13:25 APTT 35.6 Imagings Data: EXAM DESCRIPTION: RAD - Chest Single View - 11/28/2023 5:58 am CLINICAL HISTORY: 63 years, Male, CHEST PAIN COMPARISON: None FINDINGS: 1 views of the chest was obtained. Prior films were compared. There is slight decreased lung volume. Mediastinum: The cardiomediastinal silhouette appears normal in size and shape. Lungs: No areas of consolidations or masses are identified. Heart: The heart is prominent. Thoracic aorta: The thoracic aorta demonstrate to be normal. Pulmonary vasculature: The pulmonary vasculature is normal in distribution. Pleura: The costophrenic angles demonstrate to be sharp. Osseous structures: The bony structures demonstrate to be within normal limits. Other: External EKG leads within the [id number] limits diagnosis. IMPRESSION: Slight decreased lung volume. Mild cardiomegaly. LEFT VENTRICULAR WALL MOTION: MODERATE GLOBAL HYPOKINESIS DOPPLER/COLOR FLOW: SEE BELOW COMMENTS: 1. MODERATELY DEPRESSED LEFT VENTRICULAR EJECTION FRACTION 30-35% 2. MODERATE GLOBAL HYPOKINESIS 3. LEFT ATRIAL ENLARGEMENT 4. MILD MITRAL REGURGITATION 5. MODERATE TRICUSPID REGURGITATION 6. NO LEFT VENTRICULAR THOMBUS SEEN ON THIS EXAM Conclusions/Impression: Stage I BRIDGER in the setting of diuresis and relative hypotension CKD IIIb -No NSAIDs -Agree with holding diuretics and gentle IVF -Holding parameter for Hydralazine -Continue Farxiga Hyponatremia -Continue the fluid restriction -Start salt tabs HTN with CKD/ CHF -Continue Coreg -Continue Isosorbid -Hydralazine with holding parameter Systolic CHF, A/C Moderate TR -Daily weight -Low sodium diet Anemia in chronic illness -Monitor H&H Case reviewed with the hospitalist team
[2023-12-02 03:52] LABS: Absolute Lymphocytes (CBC) 0.3 K/uL (0.7-4.9); Absolute Neutrophil 8.8 K/uL (1.8-8.0); Basophils % 0.4 % (0-1.3); Hematocrit 36.4 % (39.6-49.0); Lymphocytes % 3.1 % (15.3-44.8); MCH 27.6 pg (27.0-35.0); MCV 83.6 fL (80-100); Monocytes % 9.9 % (3.3-12.3); Nucleated Red Blood Cells % 0.1 % (0-0); Platelets 231 thou/uL (152-406); RBC Red Blood Cell Count 4.35 M/uL (4.33-5.43); Red Cell Distribution Width 17.6 % (12.1-15.2)
[2023-12-02 03:53] LABS: Neutrophils % 86.6 % (41.7-73.7)
[2023-12-02 04:17] LABS: Albumin 2.7 g/dL (3.4-5.0); Albumin/Globulin Ratio 0.6 (1.1-1.8); Anion Gap 9.2 mEq/L (5.0-15.0); Bilirubin Total 0.7 mg/dL (0.2-1.0); Globulin 4.9 g/dL (2.3-3.5); Potassium 4.2 mEq/L (3.5-5.1); Protein, Total 7.6 g/dL (6.4-8.2)
[2023-12-02 08:13] VITALS: BP 145/83
--- NOTE | 2023-12-02 08:45 | P.PN ---
Subjective Date of Service: 12/02/23 Chief Complaint: Chest pain, shortness of breath Admitted with chest pain, noted to have acute on chronic heart failure, acute kidney injury, chronic kidney disease, cardiology, nephrology consulted to eval - Physical Exam General: Alert, In no apparent distress, Oriented x3 HEENT: Atraumatic, Normocephalic Neck: JVD not distended Respiratory: Normal air movement Cardiovascular: Normal pulses Capillary refill: <2 Seconds Gastrointestinal: Soft and benign Musculoskeletal: No swelling, No contractures Neurological: Normal speech, Normal tone Lymphatics: No axilla or inguinal lymphadenopathy Review of Systems Per HPI Physical Examination - Vital Signs Temperature: 98.0 F Blood Pressure: 145/83 Pulse: 71 Respirations: 17 Pulse Ox (%): 97 - Studies Microbiology Data (last 24 hrs): 11/29/23 12:17 Sputum Sputum Gram Stain - Final 11/29/23 12:17 Sputum Culture & Sensitivity - Final Assessment And Plan - Plan Assessment plan NSTEMI Atypical chest pain with elevated troponin Acute systolic CHF exacerbation Hypertension HLD Chronic anticoagulation for mural thrombus Pt over- diuresed. Will start maintanence 50ml/hr NS with NS 250ml bolus Will admit patient to telemetry Manage patient for the following Continue Eliquis/Plavix/ASA Cardiology consult - Dr. De Guzman suggests NM (11/27) stress ordered today (11/28)done, with negative results Restart Eliquis at 2.5mg BID dosing post termination of Heparin drip Continue Imdur Morphine as needed - changed to Dilaudid 11/28 Continue statin Hypertensioncontrolled, allow mild permissive hypertension, parameters for hydralazine Echo LEFT VENTRICULAR WALL MOTION: MODERATE GLOBAL HYPOKINESIS DOPPLER/COLOR FLOW: SEE BELOW COMMENTS: 1. MODERATELY DEPRESSED LEFT VENTRICULAR EJECTION FRACTION 30-35% 2. MODERATE GLOBAL HYPOKINESIS 3. LEFT ATRIAL ENLARGEMENT 4. MILD MITRAL REGURGITATION 5. MODERATE TRICUSPID REGURGITATION 6. NO LEFT VENTRICULAR THOMBUS SEEN ON THIS EXAM Acute kidney injury with CKD likely secondary to diuresis CKDcreatinine stable, follow response to diuretics 11/28, stop diuresis 11/29, continue fluid restriction but add gentle ivf, and give 250ml bolus now, daily weight, continue gentle IVF per Dr. Rossi instruction Dr. Rossi consulted, and has seen patient Fluid restriction to less than 1.2 L Follow daily weight Anemia of chronic disease Trend H&H transfuse less than 7 Hyponatremia Nephrology following DVT prophylaxison Eliquis Codefull code Diet cardiac Disposition Home with spouse independent prior to admission Discharge Plan: Home - Code Status/Comfort Care Code Status: Full Code Critical Care: No Time Spent Managing PTS Care (In Minutes): 35
--- NOTE | 2023-12-02 18:16 | P.DS ---
Admission Date: 11/29/23 Discharge Date: 12/02/23 Reason for Admission: Chest pain, shortness of breath Brief History of Present Illness: 63-year-old male with past medical history of HTN/HLD/systolic CHF with EF of 30 to 35% on last echo, follows with Dr. De Guzman, history of mural thrombus of left ventricle, chronic anticoagulation with Eliquis, hepatitis, TIA, CKD stage IV baseline creatinine 2.5-3.3; presented today because of substernal chest pain, more pressure-like, nonradiating onset since last 3 days, intermittent, associated with intermittent shortness of breath with activity now. Patient stated Hydrance with medication. He denies any dizziness or headache. He denies any cough or fever On arrival in the ED vital signs were stable afebrile, EKG showed normal sinus rhythm with no ST segment changes, similar to previous EKG, chest x-ray shows low volume. No pulmonary edema or pulmonary infiltrate. Initial troponin was elevated at 812, proBNP elevated at 10 726, CBC was unremarkable, BMP shows creatinine of 2.0about baseline. Patient is being admitted for possible non- STEMI as well as a CHF exacerbation - Physical Exam General: Alert, In no apparent distress, Oriented x3, Cooperative HEENT: Atraumatic, Normocephalic, PERRLA Neck: Supple, 2+ carotid pulse no bruit, JVD not distended Respiratory: Diminished, Crackles/rales Cardiovascular: No edema, Regular rate/rhythm, Normal S1 S2, No murmurs Gastrointestinal: Normal bowel sounds, Soft and benign, Non-distended, No ascites, No tenderness Musculoskeletal: No clubbing, No swelling Integumentary: No rashes, No breakdown, No significant lesion Neurological: Normal gait, Normal speech, Normal strength at 5/5 x4 extr, Normal tone Hospital Course: 63-year-old male with past medical history of HTN/HLD/systolic CHF with reduced ejection fraction, mural thrombus of left ventricle, chronic anticoagulation with Eliquis, hepatitis, TIA, CKD stage IV baseline creatinine 2.5-3.3; presented today because of substernal chest pain, was admitted for NSTEMI, CHF exacerbation. Was suspected to have overdiuresis, was evaluated by nephrology. Patient can discharge home follow-up with primary care after discharge, follow- up with cardiology after discharge, follow-up with nephrology 1 week after discharge PROBLEM: NSTEMI Atypical chest Congestive heart failure Chronic anticoagulation for mural thrombus Acute kidney injury with CKD Anemia of chronic disease Follow-up with nephrology after discharge in 1 week resume fluid restriction 1.2 L daily Avoid nephrotoxic medications Follow-up with cardiology after discharge in 1 week Resume prior cardiology medications Continue home medicines as previously prescribed GOAL: Clear understanding of disease process INSTRUCTIONS: Physician Discharge Instructions: -Follow-up with PCP in 1 to 2 weeks -Please call Dr. Cerrato at [phone] if any questions regarding hospital stay -Please call nursing station at [phone] if any nursing or medication questions -Return to the emergency room if symptoms worsen Diet: ADA, low sodium Activity: Fall precautions <Rosa M Kelley - Last Filed: 12/02/23 18:19> Admission Date: 11/29/23 Discharge Date: 12/02/23 Hospital Course: Patient's chart was reviewed. Patient clinical symptoms are improved. Agree with findings as mentioned above. Patient was diuresed and his respiratory status is stable. Renal function is stable. Patient feels much better and feels like he is stable for discharge. At this time we will go ahead and discharge him with outpatient nephrology follow-up as well as cardiology follow- up. <Abram Cerrato - Last Filed: 12/07/23 17:55> Disposition: ROUTINE DISCHARGE Discharge Condition: GOOD Vital Signs/Physical Exam: Temp Pulse Resp BP Pulse Ox 98.0 F 71 17 145/83 H 97 12/02/23 08:45 12/02/23 08:45 12/02/23 08:45 12/02/23 08:45 12/02/23 08:45 Laboratory Data at Discharge: WBC 10.20 thou/uL (4.3-10.9) 12/02/23 03:34 Hgb 12.0 g/dL (13.6-17.9) L 12/02/23 03:34 Hct 36.4 % (39.6-49.0) L 12/02/23 03:34 Plt Count 231 thou/uL (152-406) 12/02/23 03:34 PT 12.6 SECONDS (9.5-12.5) H 11/27/23 22:28 INR 1.15 11/27/23 22:28 APTT 35.6 SECONDS (24.3-36.9) 11/29/23 13:25 Sodium 131 mEq/L (136-145) L 12/02/23 03:34 Potassium 4.2 mEq/L (3.5-5.1) 12/02/23 03:34 BUN 83 mg/dL (7-18) H 12/02/23 03:34 Creatinine 3.38 mg/dL (0.70-1.30) H 12/02/23 03:34 Glucose 225 mg/dL (74-106) H 12/02/23 03:34 Magnesium 1.8 mg/dL (1.6-2.4) 11/27/23 22:28 Total Bilirubin 0.7 mg/dL (0.2-1.0) 12/02/23 03:34 AST 36 U/L (15-37) 12/02/23 03:34 ALT 20 U/L (16-61) 12/02/23 03:34 Alkaline Phosphatase 157 U/L (45-117) H 12/02/23 03:34 <Rosa M Kelley - Last Filed: 12/02/23 18:19> Vital Signs/Physical Exam: Temp Pulse Resp BP Pulse Ox 97.2 F 71 15 145/83 H 99 12/02/23 08:00 12/02/23 08:02 12/02/23 08:00 12/02/23 08:02 12/02/23 08:00 Laboratory Data at Discharge: WBC 10.20 thou/uL (4.3-10.9) 12/02/23 03:34 Hgb 12.0 g/dL (13.6-17.9) L 12/02/23 03:34 Hct 36.4 % (39.6-49.0) L 12/02/23 03:34 Plt Count 231 thou/uL (152-406) 12/02/23 03:34 PT 12.6 SECONDS (9.5-12.5) H 11/27/23 22:28 INR 1.15 11/27/23 22:28 APTT 35.6 SECONDS (24.3-36.9) 11/29/23 13:25 Sodium 131 mEq/L (136-145) L 12/02/23 03:34 Potassium 4.2 mEq/L (3.5-5.1) 12/02/23 03:34 BUN 83 mg/dL (7-18) H 12/02/23 03:34 Creatinine 3.38 mg/dL (0.70-1.30) H 12/02/23 03:34 Glucose 225 mg/dL (74-106) H 12/02/23 03:34 Magnesium 1.8 mg/dL (1.6-2.4) 11/27/23 22:28 Total Bilirubin 0.7 mg/dL (0.2-1.0) 12/02/23 03:34 AST 36 U/L (15-37) 12/02/23 03:34 ALT 20 U/L (16-61) 12/02/23 03:34 Alkaline Phosphatase 157 U/L (45-117) H 12/02/23 03:34 <Abram Cerrato - Last Filed: 12/07/23 17:55> Diet: Renal Activity: Fall precautions Time spent managing pt's care (in minutes): 55 <Rosa M Kelley - Last Filed: 12/02/23 18:19> <Abram Cerrato - Last Filed: 12/07/23 17:55> Home Medications: Pantoprazole [Protonix Tab*] 40 mg PO DAILY #30 tab 09/06/21 Aspirin [Aspirin EC] 81 mg PO DAILY #30 tab 10/29/22 Amiodarone HCl [Cordarone*] 200 mg PO DAILY 08/22/23 Ferrous Sulfate 325 mg PO DAILY 08/22/23 Isosorbide Dinit [Isordil*] 20 mg PO TID 08/22/23 Sofosbuvir/Velpatasvir [Epclusa 400 mg-100 mg Tablet] 1 each PO DAILY 08/22/23 Atorvastatin Calcium [Lipitor] 40 mg PO BEDTIME 10/13/23 Calcium Acetate [Phoslo] 2 cap PO TIDWM 11/28/23 Dapagliflozin Propanediol [Farxiga] 10 mg PO DAILY 11/28/23 Folic Acid 1 mg PO DAILY 11/28/23 Torsemide [Demadex*] 20 mg PO DAILY 11/28/23 carvediloL [Coreg*] 12.5 mg PO BID 11/28/23 Benzonatate [Tessalon Perle*] 100 mg PO TID PRN #20 cap 12/02/23 Hydralazine [Apresoline*] 25 mg PO TID #90 tab 12/02/23 predniSONE [Prednisone*] 20 mg PO BID #11 tab 12/02/23 Allopurinol 300 mg PO DAILY 30 Days #30 tab 12/07/23 Apixaban [Eliquis] 2.5 mg PO BID 30 Days #60 tab 12/07/23 Colchicine 0.6 mg PO BID 14 Days #28 cap 12/07/23 Vitamin D [Drisdol*] 50,000 unit PO EVERY 7TH DAY 30 Days #4 cap 12/07/23 allopurinoL [Zyloprim*] 300 mg PO DAILY tab 12/07/23 predniSONE [Prednisone*] 20 mg PO DAILY 14 Days #14 tab 12/07/23 New Medications: Hydralazine [Apresoline*] 25 mg PO TID #90 tab predniSONE [Prednisone*] 20 mg PO BID #11 tab Benzonatate [Tessalon Perle*] 100 mg PO TID PRN #20 cap PRN Reason: Cough Physician Discharge Instructions: OK TO DC IV AND DC HOME FOLLOW-UP WITH PCP IN 1-2 WEEKS FOLLOW-UP CARDIOLOGY IN 2 WEEKS RETURN TO THE ER IF SYMPTOMS WORSENS CALL DR. CERRATO, AT [phone] IF ANY QUESTIONS REGARDING HOSPITAL STAY Followup: Leonardo Rossi DO [ACTIVE - CAN ADMIT] - (follow up in 2 weeks) Anton Hayes DO [Primary Care Provider] - 1-2 Weeks (call to schedule an appointment) Shamar De Guzman MD [ACTIVE - CAN ADMIT] - (follow up in 2 weeks call to schedule an appointment )
[2023-12-02 18:35] VITALS: TEMP 97.2
--- NOTE | 2023-12-02 21:57 | P.PN ---
Date of Service: 12/02/23 Vital Signs Temp Pulse Resp BP Pulse Ox 97.2 F 71 15 145/83 H 99 12/02/23 08:00 12/02/23 08:02 12/02/23 08:00 12/02/23 08:02 12/02/23 08:00 Microbiology Results 11/29/23 12:17 Sputum Sputum Gram Stain - Final 11/29/23 12:17 Sputum Culture & Sensitivity - Final Assessment/ Plan: Nephrology No dyspnea No chest pain No acute events overnight Vitals, medications, blood work and imaging reviewed in the chart General: In no apparent distress, Oriented x3, Cooperative HEENT: Atraumatic Neck: Supple Respiratory: Clear to auscultation bilaterally Cardiovascular: No edema, Regular rate/rhythm Gastrointestinal: Soft and benign, Non-distended Musculoskeletal: No clubbing, No contractures Integumentary: No rashes, No cyanosis Neurological: Normal speech Laboratory Data (last 24 hrs) 11/29/23 13:25 APTT 35.6 Imagings Data: EXAM DESCRIPTION: RAD - Chest Single View - 11/28/2023 5:58 am CLINICAL HISTORY: 63 years, Male, CHEST PAIN COMPARISON: None FINDINGS: 1 views of the chest was obtained. Prior films were compared. There is slight decreased lung volume. Mediastinum: The cardiomediastinal silhouette appears normal in size and shape. Lungs: No areas of consolidations or masses are identified. Heart: The heart is prominent. Thoracic aorta: The thoracic aorta demonstrate to be normal. Pulmonary vasculature: The pulmonary vasculature is normal in distribution. Pleura: The costophrenic angles demonstrate to be sharp. Osseous structures: The bony structures demonstrate to be within normal limits. Other: External EKG leads within the [id number] limits diagnosis. IMPRESSION: Slight decreased lung volume. Mild cardiomegaly. LEFT VENTRICULAR WALL MOTION: MODERATE GLOBAL HYPOKINESIS DOPPLER/COLOR FLOW: SEE BELOW COMMENTS: 1. MODERATELY DEPRESSED LEFT VENTRICULAR EJECTION FRACTION 30-35% 2. MODERATE GLOBAL HYPOKINESIS 3. LEFT ATRIAL ENLARGEMENT 4. MILD MITRAL REGURGITATION 5. MODERATE TRICUSPID REGURGITATION 6. NO LEFT VENTRICULAR THOMBUS SEEN ON THIS EXAM Conclusions/Impression: Stage I BRIDGER in the setting of diuresis and relative hypotension CKD IIIb -No NSAIDs -Continue Farxiga Hyponatremia -Continue the fluid restriction HTN with CKD/ CHF -Continue Coreg -Continue Isosorbid -Hydralazine with holding parameter Systolic CHF, A/C Moderate TR -Daily weight -Low sodium diet Anemia in chronic illness -Monitor H&H Case reviewed with the hospitalist team
== END 2023-12-02 12:41 | disposition home or self-care (01) | DRG 280 ==
LOC: ER 22:00 → ERHOLD 11-28 01:37 → 4TH 11-28 02:57 → OBSVTOIN 11-29 15:30
PROVIDERS: ADMIT Internal Medicine; ATTEND Hospitalist
DX: I13.0 Hypertensive heart and chronic kidney disease with heart failure and stage 1 through stage 4 chronic kidney disease, or unspecified chronic kidney disease (principal); I50.23 Acute on chronic systolic (congestive) heart failure; I21.A1 Myocardial infarction type 2; N17.9 Acute kidney failure, unspecified; E87.1 Hypo-osmolality and hyponatremia; N18.32 Chronic kidney disease, stage 3b; D63.1 Anemia in chronic kidney disease; E78.5 Hyperlipidemia, unspecified; I48.91 Unspecified atrial fibrillation; M10.9 Gout, unspecified; K21.9 Gastro-esophageal reflux disease without esophagitis; I25.110 Atherosclerotic heart disease of native coronary artery with unstable angina pectoris; I25.2 Old myocardial infarction; Z88.0 Allergy status to penicillin; Z95.5 Presence of coronary angioplasty implant and graft; Z79.82 Long term (current) use of aspirin; Z79.01 Long term (current) use of anticoagulants; Z79.52 Long term (current) use of systemic steroids; Z86.73 Personal history of transient ischemic attack (TIA), and cerebral infarction without residual deficits; Z79.899 Other long term (current) drug therapy
CPT/HCPCS: 36415; 71045; 76770; 78452; 80048; 80053; 80076; 80307; 83735; 83880; 84439; 84443; 84484; 85025; 85379; 85610; 85730; 87070; 87205; 93005; 93017; 94010; 99285; A9500; G0378; J1170; J1644; J1940; J2270; J2405; J2785; J3360; J7030; J7050; J7512

== ENCOUNTER 2023-12-04 07:21 | Inpatient (IN) | payer OTHER ==
[2023-12-04] MEDS ORDERED: ONDANSETRON 4 MG/2 ML VIAL ONE (07:38)
[2023-12-04] MEDS ORDERED: MORPHINE 4 MG/ML SYR ONE ×2 (07:38→11:46)
[2023-12-04 07:57] LABS: Absolute Lymphocytes (CBC) 0.5 K/uL (0.7-4.9); Absolute Monocytes 0.9 K/uL (0.1-1.3); Absolute Neutrophil 8.5 K/uL (1.8-8.0); Basophils % 0.4 % (0-1.3); Hematocrit 38.5 % (39.6-49.0); Hemoglobin 12.7 g/dL (13.6-17.9); Lymphocytes % 5.2 % (15.3-44.8); MCH 27.1 pg (27.0-35.0); MCHC 33.1 g/dL (32.0-36.0); MCV 81.9 fL (80-100); MPV 8.4 fL (7.6-11.3); Monocytes % 8.7 % (3.3-12.3); Neutrophils % 85.7 % (41.7-73.7); Nucleated Red Blood Cells % 0.2 % (0-0); Platelets 271 thou/uL (152-406); Red Cell Distribution Width 17.7 % (12.1-15.2)
--- NOTE | 2023-12-04 08:08 | RAD REPORT ---
[facility] CLINICAL HISTORY: CHEST PAIN COMPARISON: Chest Single View dated 11/27/2023; Chest Single View dated 10/13/2023; Chest Single View dated 08/21/2023; Chest Single View dated 07/20/2023 TECHNIQUE: Portable AP view of the chest. FINDINGS: The lungs are clear. No pneumothorax or effusion. The cardiomediastinal contours are unre markable. IMPRESSION: No acute cardiopulmonary process.
[2023-12-04 08:10] LABS: Anion Gap 10.9 mEq/L (5.0-15.0); Potassium 3.9 mEq/L (3.5-5.1)
--- NOTE | 2023-12-04 08:24 | RAD REPORT ---
EXAM DESCRIPTION: CT - Abdomen Pelvis Wo Contrast - 12/04/2023 7:51 am CLINICAL HISTORY: ABD PAIN COMPARISON: Abdomen Pelvis Wo Contrast dated 10/27/2022; Abdomen Pelvis Wo Contrast dated 022; Abdomen Pelvis Wo Contrast dated 01/09/2022; Abdomen Pelvis Wo Contrast dated 09/03/2021; Ches t Single View dated 12/04/2023 TECHNIQUE: Thin cut axial CT imaging of the abdomen and pelvis was performed without IV contrast. Mu ltiplanar reformats were generated and reviewed. All CT scans are performed using dose optimization technique as appropriate and may include automated exposure control or mA/KV adjustment according to patient size. FINDINGS: No suspicious findings in the lung bases. Mild cardiomegaly and mild pericardial effusion The liver shows subtle contour nodularity along the inferior right lobe. Adrenal glands, spleen, and pancreas show no suspicious findings. Gallbladder is suboptimally distended limiting evaluation with suggestion of mild wall edema or pericholecystic fluid. Symmetric renal contour, without suspicious parenchymal findings within limits of noncontrast techniq ue. No evidence of radiopaque calculi or hydroureteronephrosis. Motion artifact in the mid abdomen limits evaluation No dilated bowel loops or bowel wall thickening. Trace free layering pelvic fluid. No free air, fluid collections, or inflammatory stranding. No yaya ia, mass or bulky lymphadenopathy. The urinary bladder is without significant finding. No suspicious bony findings. IMPRESSION: No acute intra-abdominal process. Trace free pelvic ascites. Mild cardiomegaly and mild pericardial effusion. Mild contour nodularity of the right liver lobe inferiorly, may relate to early cirrhotic or fibrotic changes. Please correlate with liver function profile. Suboptimal gallbladder distention limiting evaluation. Suggestion of mild wall edema or pericholecyst ic fluid which can be seen in the setting of liver disease or fluid overload. Acute cholecystitis is considered less likely. Please correlate with physical exam.
[2023-12-04 08:57] LABS: Blood Morphology Comment NOT SEEN (NOT SEEN); Platelet Estimate ADEQ; White Blood Cell Scan OK (OK)
--- NOTE | 2023-12-04 10:57 | RAD REPORT ---
EXAM DESCRIPTION: US - Abdomen Exam Limited - 12/04/2023 9:36 am CLINICAL HISTORY: ruq pain COMPARISON: Abdomen Pelvis Wo Contrast dated 12/04/2023 TECHNIQUE: Sonographic grayscale and color flow images of the right upper abdominal quadrant were o btained. FINDINGS: The gallbladder demonstrates no gallstones. Wall thickening up to 6 mm, with trace pericho lecystic fluid. Negative sonographic Lorenzo's sign. The common bile duct is normal measuring 3 mm. The liver demonstrates no findings of intrahepatic biliary dilatation. IMPRESSION: Mild gallbladder wall thickening with trace pericholecystic fluid, with negative sonogra phic Lorenzo sign. Findings favor sequelae of portal hypertension or fluid overload.
--- NOTE | 2023-12-04 11:22 | ER ---
Nurse's Notes [facility] Name: Natan Paulino Age: 63 yrs Sex: Male : 1960 Arrival Date: 12/04/2023 Time: 07:21 Bed 16 Private MD: Diagnosis: Abdominal pain, unspecified;Chest pain, unspecified Presentation: 12/03 07:34 Chief complaint: Patient states: he has been having abdominal pain that he rates as a ap3 8/10 and chest pain that he rates as a 6/10 on the pain scale. patient also reports nausea but no vomiting at this time. Coronavirus screen: At this time, the client does not indicate any symptoms associated with coronavirus-19. Ebola Screen: No symptoms or risks identified at this time. Initial Sepsis Screen: Does the patient meet any 2 criteria? No. Patient's initial sepsis screen is negative. Does the patient have a suspected source of infection? No. Patient's initial sepsis screen is negative. Risk Assessment: Do you want to hurt yourself or someone else? Patient reports no desire to harm self or others. Onset of symptoms was December 03, 2023. 07:34 Method Of Arrival: Ambulatory ap3 07:34 Acuity: NINO 2 ap3 Triage Assessment: 07:36 General: Appears uncomfortable, Behavior is calm, cooperative. Pain: Complains of pain ap3 in chest and abdomen Pain currently is 8 out of 10 on a pain scale. Pain began gradually, 1 day ago. Neuro: Level of Consciousness is awake, alert, obeys commands, Oriented to person, place, time, situation. Cardiovascular: Patient's skin is warm and dry. Respiratory: Airway is patent Respiratory effort is even, unlabored, Respiratory pattern is regular, symmetrical. GI: Reports lower abdominal pain, upper abdominal pain, nausea. Historical: - Allergies: 07:36 PENICILLINS; ap3 - PMHx: 07:36 CHF; Gout; Hypertension; Myocardial infarction; osteoarthritis; Pancreatitis; ap3 Rheumatoid Arthritis; stroke; TIA; - PSHx: 07:36 finger; heart stent; Stented artery; ap3 - Immunization history:: Client reports receiving the 2nd dose of the Covid vaccine, Flu vaccine is up to date. - Infectious Disease History:: Denies. - Social history:: Smoking status: Patient denies any tobacco usage or history of. Screenin:37 Abuse screen: Denies threats or abuse. Nutritional screening: No deficits noted. ap3 Tuberculosis screening: No symptoms or risk factors identified. 14:07 [facility] ED Fall Risk Assessment (Adult) History of falling in the last 3 months, kn including since admission No falls in past 3 months (0 pts) Confusion or Disorientation No (0 pts) Intoxicated or Sedated No (0 pts) Impaired Gait No (0 pts) Mobility Assist Device Used No (0 pt) Altered Elimination No (0 pt) Score/Fall Risk Level 0 - 2 = Low Risk. Assessment: 07:40 Pain: Complains of pain in chest and abdomen Quality of pain is described as Pain began kn last night. 07:40 Reassessment: pt ambulatory to room, c/c: abd pain with chest pain started last night kn while doing "nothing" pt states he was recentlly d/c from hospital for "mild heart attack", denies cardiac stents. pt describes abd pain as "heavy and to the L side" of abd, L chest pain feels "sharp" but abd pain is worse. pt denies n/v/d. resp even and unlabored, pt is AAOx4, placed on cardiac catheterization technologist, bp cuff, and pulse ox, vss, EKG completed.. MD at bedside. new orders noted and implemented, will continue to monitor pt. 10:38 Reassessment: Patient is alert, oriented x 3, equal unlabored respirations, skin kn warm/dry/pink. 11:01 Reassessment: Patient appears in no apparent distress at this time. Patient is alert, kn oriented x 3, equal unlabored respirations, skin warm/dry/pink. 13:04 Reassessment: Patient appears in no apparent distress at this time. Patient is alert, kn oriented x 3, equal unlabored respirations, skin warm/dry/pink. Vital Signs: 07:34 BP 182 / 127; Pulse 86; Resp 17; Temp 98.4; Pulse Ox 100% ; Pain 8/10; ap3 07:56 BP 170 / 122; Pulse 78; Resp 20; Pulse Ox 100% ; kn 08:00 BP 165 / 115; Pulse 78; Resp 20; Pulse Ox 100% ; kn 09:45 BP 176 / 117; Pulse 77; Resp 20; Pulse Ox 99% ; kn 10:37 BP 172 / 123; Pulse 72; Resp 20; Pulse Ox 100% ; kn 11:05 BP 175 / 122; Pulse 75; Resp 20; Pulse Ox 100% ; kn 13:02 BP 152 / 116; Pulse 68; Resp 20; Pulse Ox 100% ; kn 14:00 BP 169 / 119; Pulse 67; Resp 16; Pulse Ox 100% ; kn 07:34 Pain Scale: Adult ap3 ED Course: 07:24 Patient arrived in ED. im 07:26 Pelon Nergete MD is Attending Physician. ec2 07:31 Kelsy Nichols, RADHIKA is Primary Nurse. ld1 07:36 Triage completed. ap3 07:37 Arm band placed on right wrist. ap3 07:37 athletic monitor on. Pulse ox on. NIBP on. ap3 07:37 Patient has correct armband on for positive identification. Bed in low position. Call ap3 light in reach. Side rails up X 1. 07:37 O2 via room air. ap3 07:38 Inserted saline lock: 20 gauge in left forearm, using aseptic technique. Blood ld1 collected. 07:43 XRAY Chest (1 view) In Process Unspecified. EDMS 07:[address] kn 07:46 Basic Metabolic Panel Sent. kn 07:46 CBC with Diff Sent. kn 07:46 Troponin HS Sent. kn 07:52 Abdomen In Process Unspecified. EDMS 07:[address] moved [address]. kn 09:32 US Abdomen Limited In Process Unspecified. EDMS 11:21 Thomas Boyle is Hospitalizing Provider. ec2 14:07 No provider procedures requiring assistance completed. Patient admitted, IV remains in kn place. Administered Medications: 07:39 Drug: morphine IVP or IV 4 mg IVP once over 4 mins Route: IVP; Infused Over: 4 mins; kn Site: left forearm; 08:00 Follow up: Response: No adverse reaction kn 07:39 Drug: Ondansetron IVP 4 mg IVP once; over 2 minutes Route: IVP; Site: left forearm; kn 09:00 Follow up: Response: No adverse reaction kn 11:50 Drug: morphine IVP or IV 4 mg IVP once over 4 mins Route: IVP; Infused Over: 4 mins; ld1 Site: left forearm; 12:30 Follow up: Response: No adverse reaction Medication: 14:08 VIS not applicable for this client. kn Outcome: 11:22 Decision to Hospitalize by Provider. ec2 14:03 Admitted to Med/surg accompanied by tech, via wheelchair, room 407, kn 14:03 Condition: stable 14:03 Instructed on the need for admit, 14:09 Patient left the ED. saleem Signatures: Dispatcher [employer] Bridget Mac RN RN ap3 Kelsy Nichols RN RN ld1 Renetta Gomez Edwin, MD MD ec2 MIR LLANOS RN RN saleem
--- NOTE | 2023-12-04 11:22 | EDPHYS ---
Physician Documentation [facility] Name: Natan Paulino Age: 63 yrs Sex: Male : 1960 Arrival Date: 12/04/2023 Time: 07:21 Bed 16 Private MD: ED Physician Pelon Negrete HPI: 12/03 07:35 This 63 yrs old Black Male presents to ER via Unassigned with complaints of Pain All ec2 Over, Chest Pain, Abdominal Pain. 07:35 Patient arrives today for evaluation of generalized pain. Patient complains of pain ec2 worse in the abdomen as well as chest. Patient with recent admission for elevated troponins. Patient reports that he started having abdominal pain that started last night. Patient reports some associated nausea without vomiting, no bowel issues.. Historical: - Allergies: 07:36 PENICILLINS; ap3 - PMHx: 07:36 CHF; Gout; Hypertension; Myocardial infarction; osteoarthritis; Pancreatitis; ap3 Rheumatoid Arthritis; stroke; TIA; - PSHx: 07:36 finger; heart stent; Stented artery; ap3 - Immunization history:: Client reports receiving the 2nd dose of the Covid vaccine, Flu vaccine is up to date. - Infectious Disease History:: Denies. - Social history:: Smoking status: Patient denies any tobacco usage or history of. ROS: 07:36 Constitutional: as per hpi ec2 Exam: 07:36 Constitutional: GEN: NAD Head: atraumatic Eyes: EOMI Ears: External ears are ec2 normal. CV: regular rate LUNGS: no respiratory distress ABD: non-distended, soft, generally tender, not guarding, not rigid SKIN: no evidence of rashes MSK: no evidence of trauma NEURO: moves all extremities equally Vital Signs: 07:34 BP 182 / 127; Pulse 86; Resp 17; Temp 98.4; Pulse Ox 100% ; Pain 8/10; ap3 07:56 BP 170 / 122; Pulse 78; Resp 20; Pulse Ox 100% ; kn 08:00 BP 165 / 115; Pulse 78; Resp 20; Pulse Ox 100% ; kn 09:45 BP 176 / 117; Pulse 77; Resp 20; Pulse Ox 99% ; kn 10:37 BP 172 / 123; Pulse 72; Resp 20; Pulse Ox 100% ; kn 11:05 BP 175 / 122; Pulse 75; Resp 20; Pulse Ox 100% ; kn 13:02 BP 152 / 116; Pulse 68; Resp 20; Pulse Ox 100% ; kn 14:00 BP 169 / 119; Pulse 67; Resp 16; Pulse Ox 100% ; kn 07:34 Pain Scale: Adult ap3 MDM: 07:30 Patient medically screened. ec2 07:36 Data reviewed: vital signs. ED course: Patient arrives today due to concern for upper ec2 abdominal pain as well as chest pain. Examination remarkable for vital signs that are reassuring otherwise generally tender abdomen. EKG obtained, independently reviewed and interpreted by me, shows sinus rhythm, rate of 81, no acute ST segment elevations, left bundle branch block noted, nonspecific T wave abnormalities.. 09:08 ED course: Metabolic profile shows renal function at 2.9 GFR 23. CBC is reassuring. ec2 troponin remains elevated at 920, compared to external records, patient's recent troponins were 7-800. Chest x-ray shows no acute intrathoracic process. CT imaging shows pericholecystic fluid. Will obtain dedicated ultrasound imaging . 11:20 ED course: Ultrasound shows pericholecystic fluid with negative Lorenzo sign. Very to be ec2 volume overload. Will admit the patient for chest and abdominal pain, patient still remains uncomfortable. Patient updated on plan of care, hospitalist contacted. Patient with troponin elevated and that is chronic per the exterior workup. . 12/03 07:32 Order name: Basic Metabolic Panel; Complete Time: 09:06 ld1 12/03 07:32 Order name: CBC with Diff; Complete Time: 09:06 ld1 12/03 07:32 Order name: Troponin HS; Complete Time: 09:06 ld1 12/03 08:00 Order name: CBC Smear Scan; Complete Time: 09:06 EDMS 12/03 12:47 Order name: Basic Metabolic Panel EDMS 12/03 12:47 Order name: Basic Metabolic Panel EDMS 12/03 12:47 Order name: CBC with Automated Diff EDMS 12/03 12:47 Order name: CBC with Automated Diff EDMS 12/03 12:47 Order name: Magnesium EDMS 12/03 12:47 Order name: Magnesium EDMS 12/03 12:47 Order name: Phosphorus EDMS 12/03 12:47 Order name: Phosphorus EDMS 12/03 12:49 Order name: NT PRO-BNP EDMS 12/03 07:32 Order name: XRAY Chest (1 view); Complete Time: 09:06 ld1 12/03 07:44 Order name: Abdomen ; Complete Time: 09:06 EDMS 12/03 09:08 Order name: US Abdomen Limited; Complete Time: 11:19 ec2 12/03 07:32 Order name: Cardiac monitoring; Complete Time: 07:32 ld1 12/03 07:32 Order name: EKG - Nurse/Tech; Complete Time: 07:32 ld1 12/03 07:32 Order name: IV Saline Lock; Complete Time: 07:38 ld1 12/03 07:32 Order name: Labs collected and sent; Complete Time: 07:38 ld1 12/03 07:32 Order name: O2 Per Protocol; Complete Time: 07:32 ld1 12/03 07:32 Order name: O2 Sat Monitoring; Complete Time: 07:32 ld1 Administered Medications: 07:39 Drug: morphine IVP or IV 4 mg IVP once over 4 mins Route: IVP; Infused Over: 4 mins; kn Site: left forearm; 08:00 Follow up: Response: No adverse reaction 07:39 Drug: Ondansetron IVP 4 mg IVP once; over 2 minutes Route: IVP; Site: left forearm; kn 09:00 Follow up: Response: No adverse reaction 11:50 Drug: morphine IVP or IV 4 mg IVP once over 4 mins Route: IVP; Infused Over: 4 mins; ld1 Site: left forearm; 12:30 Follow up: Response: No adverse reaction Disposition Summary: 12/04/23 11:22 Hospitalization Ordered Notes: Hospitalization Status: Inpatient Admission ec2 Provider: Thomas Boyle ec2 Location: Telemetry/MedSurg (Inpatient) ec2 Condition: Stable ec2 Problem: an ongoing problem ec2 Symptoms: have improved ec2 Bed/Room Type: Standard ec2 Room Assignment: 407(12/04/23 13:15) bd Diagnosis - Abdominal pain, unspecified ec2 - Chest pain, unspecified ec2 Forms: - Medication Reconciliation Form ec2 - SBAR form ec2 - Leadership Thank You Letter ec2 Signatures: Dispatcher [employer] EDLeola Villalobos Amanda, RN RN ap3 Kelsy Nichols RN RN ld1 Pelon Negrete MD MD ec2 MIR LLANOS RN RN kn Corrections: (The following items were deleted from the chart) 07:32 07:32 Chest Single View+RAD.RAD.BRZ ordered. EDMS EDMS 07:44 07:35 Abdomen Pelvis W Con+CT.RAD.BRZ ordered. EDMS EDMS 13:15 11:22 ec2 bd
[2023-12-04] MEDS ORDERED: ACETAMINOPHEN 500 MG TAB PO PRN (12:41)
--- NOTE | 2023-12-04 12:51 | P.HP ---
Certification for Inpatient Patient admitted to: Observation With expected LOS: >2 Midnights Patient will require the following post-hospital care: None Practitioner: I am a practitioner with admitting privileges, knowledge of patient current condition, hospital course, and medical plan of care. Services: Services provided to patient in accordance with Admission requirements found in Title 42 Section 412.3 of the Code of Federal Regulations Patient History Date of Service: 12/04/23 Reason for admission: NSTEMI History of Present Illness: Natan Paulino is a 63 year old male with Pmhx CHF, Gout, Hypertension, Myocardial infarction (stent), osteoarthritis, Pancreatitis, Rheumatoid Arthritis, stroke, and TIA presents to the ED with chief complaint of pain all over including abdomen and chest. He reports not feeling well since discharge and has not been able to ambulate around the house since he went home. On examination he is laying on his right side, uncomfortable, abdominal pain throughout the abdomen. He reports increased urination. Natan was recently discharged (12/01), at that admission he was evaluated for NSTEMI and overdiuresis. Initial vitals BP 182 / 127; Pulse 86; Resp 17; Temp 98.4; Pulse Ox 100% Laboratory evaluation serum glucose 455, troponin 920, BNP 23,430, sodium 132, BUN/creatinine 70/2.9, GFR 23 Ultrasound abdomen reports "Mild gallbladder wall thickening with trace pericholecystic fluid, with negative sonographic Lorenzo sign. Findings favor sequelae of portal hypertension or fluid overload." CT abdomen pelvis without contrast reports "No acute intra-abdominal process. Trace free pelvic ascites. Mild cardiomegaly and mild pericardial effusion. Mild contour nodularity of the right liver lobe inferiorly, may relate to early cirrhotic or fibrotic changes. Please correlate with liver function profile. Suboptimal gallbladder distention limiting evaluation. Suggestion of mild wall edema or pericholecystic fluid which can be seen in the setting of liver disease or fluid overload. Acute cholecystitis is considered less likely. Please correlate with physical exam." Natan will be admitted to hospitalist service for further evaluation and treatment. Allergies Penicillins Allergy (Verified 10/27/22 21:16) Hives/Rash Home Medications: Pantoprazole [Protonix Tab*] 40 mg PO DAILY #30 tab 09/06/21 Aspirin [Aspirin EC] 81 mg PO DAILY #30 tab 10/29/22 Amiodarone HCl [Cordarone*] 200 mg PO DAILY 08/22/23 Ferrous Sulfate 325 mg PO DAILY 08/22/23 Isosorbide Dinit [Isordil*] 20 mg PO TID 08/22/23 Sofosbuvir/Velpatasvir [Epclusa 400 mg-100 mg Tablet] 1 each PO DAILY 08/22/23 Apixaban [Eliquis] 5 mg PO BID 10/13/23 Atorvastatin Calcium [Lipitor] 40 mg PO BEDTIME 10/13/23 Calcium Acetate [Phoslo] 2 cap PO TIDWM 11/28/23 Dapagliflozin Propanediol [Farxiga] 10 mg PO DAILY 11/28/23 Folic Acid 1 mg PO DAILY 11/28/23 Torsemide [Demadex*] 20 mg PO DAILY 11/28/23 carvediloL [Coreg*] 12.5 mg PO BID 11/28/23 Benzonatate [Tessalon Perle*] 100 mg PO TID PRN #20 cap 12/02/23 Hydralazine [Apresoline*] 25 mg PO TID #90 tab 12/02/23 predniSONE [Prednisone*] 20 mg PO BID #11 tab 12/02/23 - Past Medical/Surgical History Diabetic: No -: HTN -: 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 Rossi/ Dr. 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 - Family History Father -: Cancer, Liver disease Mother -: GI disease, Other (see notes) Notes: NA - Social History Alcohol use: Yes CD- Drugs: Yes Caffeine use: Yes Review of Systems General: Weakness Gastrointestinal: Abdominal Pain Physical Examination - Physical Exam General: Alert, Oriented x3, Other (uncomfortable) HEENT: Atraumatic, Normocephalic, PERRLA Neck: Supple, 2+ carotid pulse no bruit Respiratory: Clear to auscultation bilaterally, Normal air movement Cardiovascular: Normal pulses, Regular rate/rhythm, Normal S1 S2 Capillary refill: <2 Seconds Gastrointestinal: Normal bowel sounds, Soft and benign, Distended, Tenderness Musculoskeletal: No clubbing, Other Integumentary: No breakdown - Studies Laboratory Data (last 24 hrs) 12/04/23 12/04/23 07:38 07:38 WBC 10.00 Hgb 12.7 L Hct 38.5 L Plt Count 271 Sodium 132 L Potassium 3.9 BUN 73 H Creatinine 2.90 H Glucose 455 H* Assessment and Plan - Plan Assessment and plan Systolic congestive heart failure Elevated troponin Hx Atrial fibrillation troponin 920, serial pending Continue home medications Consult cardiology Ascites reported on CT abd/pelvis Continuous telemetry Portal hypertension Fluid volume overload Hyponatremia BNP 23,430, sodium 132 Serial troponin pending Will follow fluid volume status CKD IIIb/ Consult nephrology BUN/creatinine 73/2.90, GFR 23 Hyperglycemia A1C Serum glucose 455 Hx of mural thrombus Hx TIA on Eliquis HX pancreatitis Hx of hepatitis C/treated Hx of hypertension Restart home medications Lipase pending DVT ppx on Eliquis Full code LOS 2-3 days Discharge Plan: Home Plan to discharge in: 48 Hours - Advance Directives Does patient have a Living Will: No Does patient have a Durable POA for Healthcare: No
[2023-12-04] MEDS: MORPHINE 2 MG/ML SYR IV PRN (14:59)
[2023-12-04] MEDS: INSULIN REGULAR (HUMAN) 100 UNIT/ML SQ SCH (16:30)
[2023-12-04] MEDS: HEPARIN 5000 UNIT/ML 1 ML VIAL SQ SCH (16:36)
[2023-12-04] MEDS ORDERED: BENZONATATE 100 MG CAP PO PRN (18:36)
[2023-12-04] MEDS: HYDRALAZINE HCL 25 MG TABLET PO SCH (20:46)
[2023-12-04] MEDS: carvediloL 12.5 MG TAB PO SCH (20:46)
[2023-12-04] MEDS: ISOSORBIDE DINIT 20 MG TAB PO SCH (20:46)
[2023-12-04] MEDS: ATORVASTATIN 40 MG TAB PO SCH (20:46)
[2023-12-04] MEDS: APIXABAN 5 MG TABLET PO SCH (20:46)
[2023-12-05] MEDS: HYDROCODONE/APAP 10/325 TAB PO PRN (06:13)
[2023-12-05] MEDS: HYDRALAZINE HCL 20 MG/ML VIAL IV PRN (06:13)
--- NOTE | 2023-12-05 06:35 | P.PN ---
Patient seen and examined with Ms. Espinoza He is complaining of severe joint pain and decreased mobility due to the joint pains. He attributes her joint pains to acute gout flare. 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 He denies shortness of breath or chest pain. He feels his heart pounds and overwork when he is in pain which causes his troponin to be elevated. Patient has chronic troponin elevation. Most recent nuclear stress test 11/29/23 showed no stress-induced ischemia. Plan: Treat acute gout with colchicine, prednisone Continue allopurinol Analgesics as needed. Continue Eliquis Cautious diuresis to avoid dehydration which may worsen the acute gout. <junito lynn - Last Filed: 12/05/23 12:07> Date of Service: 12/05/23 Subjective Hypertensive overnight Ambulating independently Complaining of gout flareups to bilateral elbows left hand and back ROS 10 point ROS as noted above, otherwise negative Physical Exam General: No acute distress, alert and oriented x 3, uncomfortable HEENT: Atraumatic, Normocephalic, PERRLA Neck: Supple, 2+ carotid pulse no bruit Respiratory: Clear to auscultation bilaterally, Normal air movement, on room air Cardiovascular: RRR, Normal S1 S2, systolic murmur Capillary refill: <2 Seconds Gastrointestinal: Normal bowel sounds, Soft and benign on palpation, Distended, Tenderness Musculoskeletal: No clubbing, Other Integumentary: No breakdown Vitals Reviewed Problem list Systolic congestive heart failure reduced EF Elevated troponin Hx Atrial fibrillation Portal hypertension Fluid volume overload Hyponatremia CKD IIIb/IV Hyperglycemia Hx of mural thrombus Hx TIA HX pancreatitis Hx of hepatitis C/treated Hx of hypertension Assessment and plan Systolic congestive heart failure reduced EF Elevated troponin Hx Atrial fibrillation troponin 920, 1067.7, 1012.5 Continue home medications Consult cardiology Ascites reported on CT abd/pelvis Continuous telemetry auto diuresing, strict I's and O Portal hypertension Fluid volume overload Hyponatremia- resolved BNP 23,430, sodium 137 Serial troponin pending Will follow fluid volume status CKD IIIb/IV Consult nephrology BUN/creatinine 68/2.30, GFR 31- improved Acute Gout flare up Bilateral elbows, left hand, and back Continue allopurinol Colchicine Prednisone Hyperglycemia A1C Serum glucose 128 Hx of mural thrombus Hx TIA on Eliquis HX pancreatitis Hx of hepatitis C/treated Hx of hypertension Restart home medications Lipase 126 DVT ppx on Eliquis Full code LOS 2-3 days <Paulette Espinoza - Last Filed: 12/05/23 19:57>
[2023-12-05 07:12] LABS: Absolute Eosinophils 0.1 K/uL (0-0.5); Absolute Lymphocytes (CBC) 0.5 K/uL (0.7-4.9); Absolute Neutrophil 7.7 K/uL (1.8-8.0); Basophils % 0.4 % (0-1.3); Eosinophils % 0.8 % (0-4.4); Hematocrit 41.8 % (39.6-49.0); Hemoglobin 13.4 g/dL (13.6-17.9); Lymphocytes % 5.4 % (15.3-44.8); MCH 26.9 pg (27.0-35.0); MCHC 32.1 g/dL (32.0-36.0); MCV 83.7 fL (80-100); MPV 8.3 fL (7.6-11.3); Monocytes % 10.7 % (3.3-12.3); Neutrophils % 82.7 % (41.7-73.7); Nucleated Red Blood Cells % 0.1 % (0-0); Platelets 279 thou/uL (152-406); RBC Red Blood Cell Count 4.99 M/uL (4.33-5.43); Red Cell Distribution Width 17.6 % (12.1-15.2)
[2023-12-05] MEDS: HOME MED (Dapagliflozin Propanediol [Farxiga] 10 MG Tablet) PO SCH (07:14)
[2023-12-05] MEDS: VELPATASVIR PO SCH (07:14)
[2023-12-05] MEDS: SOFOSBUVIR PO SCH (07:14)
[2023-12-05 07:25] LABS: Anion Gap 10.1 mEq/L (5.0-15.0); Magnesium 2.3 mg/dL (1.6-2.4); Phosphorus 2.6 mg/dL (2.5-4.9); Potassium 4.1 mEq/L (3.5-5.1)
[2023-12-05] MEDS: TORSEMIDE 20 MG TAB PO SCH (08:43)
[2023-12-05] MEDS: AMIODARONE HCL 200 MG TAB PO SCH (08:44)
[2023-12-05] MEDS: ASPIRIN EC 81 MG TAB PO SCH (08:44)
[2023-12-05] MEDS: FOLIC ACID 1 MG TABLET PO SCH (08:44)
[2023-12-05] MEDS: CALCIUM ACETATE 667 MG TAB PO SCH (08:44)
[2023-12-05] MEDS: FERROUS SULFATE 325 MG TAB PO SCH (08:44)
[2023-12-05] MEDS: PANTOPRAZOLE 40MG TABLET PO SCH (08:45)
--- NOTE | 2023-12-05 09:46 | P.CNS ---
Date of Consult: 12/05/23 Reason for Consult: BRIDGER/ CKD Requesting Physician: junito boyle Chief Complaint: NSTEMI History of Present Illness: Natan Paulino is a 63 year old male with Pmhx CHF, Gout, Hypertension, Myocardial infarction (stent), osteoarthritis, Pancreatitis, Rheumatoid Arthritis, stroke, and TIA presents to the ED with chief complaint of pain all over including abdomen and chest. He reports not feeling well since discharge and has not been able to ambulate around the house since he went home. On examination he is laying on his right side, uncomfortable, abdominal pain throughout the abdomen. He reports increased urination. Natan was recently discharged (12/01), at that admission he was evaluated for NSTEMI and overdiuresis. Initial vitals BP 182 / 127; Pulse 86; Resp 17; Temp 98.4; Pulse Ox 100% Laboratory evaluation serum glucose 455, troponin 920, BNP 23,430, sodium 132, BUN/creatinine 70/2.9, GFR 23 Ultrasound abdomen reports "Mild gallbladder wall thickening with trace pericholecystic fluid, with negative sonographic Lorenzo sign. Findings favor sequelae of portal hypertension or fluid overload." CT abdomen pelvis without contrast reports "No acute intra-abdominal process. Trace free pelvic ascites. Mild cardiomegaly and mild pericardial effusion. Mild contour nodularity of the right liver lobe inferiorly, may relate to early cirrhotic or fibrotic changes. Please correlate with liver function profile. Suboptimal gallbladder distention limiting evaluation. Suggestion of mild wall edema or pericholecystic fluid which can be seen in the setting of liver disease or fluid overload. Acute cholecystitis is considered less likely. Please correlate with physical exam." Natan will be admitted to hospitalist service for further evaluation and treatment. 07:35 This 63 yrs old Black Male presents to ER via Unassigned with complaints of Pain All ec2 Over, Chest Pain, Abdominal Pain. 07:35 Patient arrives today for evaluation of generalized pain. Patient complains of pain ec2 worse in the abdomen as well as chest. Patient with recent admission for elevated troponins. Patient reports that he started having abdominal pain that started last night. Patient reports some associated nausea without vomiting, no bowel issues. Allergies Penicillins Allergy (Verified 10/27/22 21:16) Hives/Rash Home medications list reviewed: Yes Home Medications: Pantoprazole [Protonix Tab*] 40 mg PO DAILY #30 tab 09/06/21 Aspirin [Aspirin EC] 81 mg PO DAILY #30 tab 10/29/22 Amiodarone HCl [Cordarone*] 200 mg PO DAILY 08/22/23 Ferrous Sulfate 325 mg PO DAILY 08/22/23 Isosorbide Dinit [Isordil*] 20 mg PO TID 08/22/23 Sofosbuvir/Velpatasvir [Epclusa 400 mg-100 mg Tablet] 1 each PO DAILY 08/22/23 Apixaban [Eliquis] 5 mg PO BID 10/13/23 Atorvastatin Calcium [Lipitor] 40 mg PO BEDTIME 10/13/23 Calcium Acetate [Phoslo] 2 cap PO TIDWM 11/28/23 Dapagliflozin Propanediol [Farxiga] 10 mg PO DAILY 11/28/23 Folic Acid 1 mg PO DAILY 11/28/23 Torsemide [Demadex*] 20 mg PO DAILY 11/28/23 carvediloL [Coreg*] 12.5 mg PO BID 11/28/23 Benzonatate [Tessalon Perle*] 100 mg PO TID PRN #20 cap 12/02/23 Hydralazine [Apresoline*] 25 mg PO TID #90 tab 12/02/23 predniSONE [Prednisone*] 20 mg PO BID #11 tab 12/02/23 - Past Medical/Surgical History Diabetic: No -: HTN -: 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 Rossi/ Dr. 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 - Family History Father Medical History: Cancer, Liver disease Mother Medical History: GI disease, Other (see notes) Notes: NA - Social History Smoking Status: Unknown if ever smoked Alcohol use: Yes CD- Drugs: Yes Caffeine use: Yes Place of Residence: Home Review of Systems 10-point ROS is otherwise unremarkable Musculoskeletal: Other (Joint Pain) Physical Examination Temp Pulse Resp BP Pulse Ox 97.3 F 63 16 140/96 H 96 12/05/23 04:00 12/05/23 08:43 12/05/23 09:12 12/05/23 08:43 12/05/23 09:12 General: In no apparent distress, Oriented x3, Cooperative HEENT: Atraumatic Neck: Supple Respiratory: Clear to auscultation bilaterally Cardiovascular: No edema, Regular rate/rhythm Gastrointestinal: Soft and benign, Non-distended Musculoskeletal: No clubbing, Swelling, Tenderness Integumentary: No rashes, No cyanosis Neurological: Normal speech Blood work reviewed in the chart. Imagings Data: EXAM DESCRIPTION: US - Abdomen Exam Limited - 12/04/2023 9:36 am CLINICAL HISTORY: ruq pain COMPARISON: Abdomen Pelvis Wo Contrast dated 12/04/2023 TECHNIQUE: Sonographic grayscale and color flow images of the right upper abdominal quadrant were obtained. FINDINGS: The gallbladder demonstrates no gallstones. Wall thickening up to 6 mm, with trace pericholecystic fluid. Negative sonographic Lorenzo's sign. The common bile duct is normal measuring 3 mm. The liver demonstrates no findings of intrahepatic biliary dilatation. IMPRESSION: Mild gallbladder wall thickening with trace pericholecystic fluid, with negative sonographic Lorenzo sign. Findings favor sequelae of portal hypertension or fluid overload. EXAM DESCRIPTION: CT - Abdomen Pelvis Wo Contrast - 12/04/2023 7:51 am CLINICAL HISTORY: ABD PAIN COMPARISON: Abdomen Pelvis Wo Contrast dated 10/27/2022; Abdomen Pelvis Wo Contrast dated 08/13/2022; Abdomen Pelvis Wo Contrast dated 01/09/2022; Abdomen Pelvis Wo Contrast dated 09/03/2021; Chest Single View dated 12/04/2023 TECHNIQUE: Thin cut axial CT imaging of the abdomen and pelvis was performed without IV contrast. Multiplanar reformats were generated and reviewed. All CT scans are performed using dose optimization technique as appropriate and may include automated exposure control or mA/KV adjustment according to patient size. FINDINGS: No suspicious findings in the lung bases. Mild cardiomegaly and mild pericardial effusion The liver shows subtle contour nodularity along the inferior right lobe. Adrenal glands, spleen, and pancreas show no suspicious findings. Gallbladder is suboptimally distended limiting evaluation with suggestion of mild wall edema or pericholecystic fluid. Symmetric renal contour, without suspicious parenchymal findings within limits of noncontrast technique. No evidence of radiopaque calculi or hydroureteronephrosis. Motion artifact in the mid abdomen limits evaluation No dilated bowel loops or bowel wall thickening. Trace free layering pelvic fluid. No free air, fluid collections, or inflammatory stranding. No hernia, mass or bulky lymphadenopathy. The urinary bladder is without significant finding. No suspicious bony findings. IMPRESSION: No acute intra-abdominal process. Trace free pelvic ascites. Mild cardiomegaly and mild pericardial effusion. Mild contour nodularity of the right liver lobe inferiorly, may relate to early cirrhotic or fibrotic changes. Please correlate with liver function profile. Suboptimal gallbladder distention limiting evaluation. Suggestion of mild wall edema or pericholecystic fluid which can be seen in the setting of liver disease or fluid overload. Acute cholecystitis is considered less likely. Please correlate with physical exam. [facility] CLINICAL HISTORY: CHEST PAIN COMPARISON: Chest Single View dated 11/27/2023; Chest Single View dated 10/13/2023; Chest Single View dated 08/21/2023; Chest Single View dated 07/20/2023 TECHNIQUE: Portable AP view of the chest. FINDINGS: The lungs are clear. No pneumothorax or effusion. The cardiomediastinal contours are unremarkable. IMPRESSION: No acute cardiopulmonary process. LEFT VENTRICULAR WALL MOTION: MODERATE GLOBAL HYPOKINESIS DOPPLER/COLOR FLOW: SEE BELOW COMMENTS: 1. MODERATELY DEPRESSED LEFT VENTRICULAR EJECTION FRACTION 30-35% 2. MODERATE GLOBAL HYPOKINESIS 3. LEFT ATRIAL ENLARGEMENT 4. MILD MITRAL REGURGITATION 5. MODERATE TRICUSPID REGURGITATION 6. NO LEFT VENTRICULAR THOMBUS SEEN ON THIS EXAM Conclusions/Impression: Conclusions/Impression: Stage I BRIDGER, improved CKD IIIb -No NSAIDs -Continue Farxiga Hyponatremia, improved HTN with CKD/ CHF -Continue Coreg -Continue Isosorbid -Continue Hydralazine Systolic CHF, chronic Moderate TR -Daily weight -Low sodium diet -Continue Torsemide Anemia in chronic illness -Monitor H&H -Continue oral iron supplementation Acute Gout with Tophus -Increase Allopurinol 200mg daily -Continue Colchicine and Prednisone -Pain control as ordered; no nsaids CKD MBD -Continue Phoslo -Start Ergo Case reviewed with Dr. Boyle
[2023-12-05] MEDS: COLCHICINE 0.6 MG TAB PO ONE (11:05)
[2023-12-05] MEDS: predniSONE 20 MG TAB PO ONE (11:06)
[2023-12-05] MEDS: allopurinoL 100 MG TAB PO SCH (11:06)
[2023-12-05] MEDS: DOCUSATE NA 100 MG CAP PO SCH (21:12)
[2023-12-06 06:25] VITALS: BMI 24.5
[2023-12-06 07:13] LABS: Albumin 2.3 g/dL (3.4-5.0); Albumin/Globulin Ratio 0.5 (1.1-1.8); Anion Gap 9.7 mEq/L (5.0-15.0); Bilirubin Total 0.7 mg/dL (0.2-1.0); Globulin 4.4 g/dL (2.3-3.5); Potassium 4.7 mEq/L (3.5-5.1); Protein, Total 6.7 g/dL (6.4-8.2); Uric Acid 12.3 mg/dL (3.5-7.2)
[2023-12-06] MEDS: DRISDOL (VITAMIN D=ERGOCALCIFEROL) 50000 UNIT CAP PO SCH (08:52)
[2023-12-06] MEDS: allopurinoL 100 MG TAB PO SCH (08:52)
[2023-12-06] MEDS: predniSONE 20 MG TAB PO SCH (08:53)
[2023-12-06] MEDS: COLCHICINE 0.6 MG TAB PO SCH (08:54)
[2023-12-06] MEDS: MAGNESIUM HYDROXIDE 8% 30 ML PO ONE (08:54)
--- NOTE | 2023-12-06 11:06 | P.PN ---
(S) Pt swelling and pain in his hands and elbows is decreasing. He denies dyspnea currently, he is ambulating short distances (O) Vitals reviewed in the EMR General: Alert, In no apparent distress, Oriented x3 HEENT: Atraumatic, not needin O2 Neck: Supple Respiratory: Normal air movement, non tachypnec, no rales Cardiovascular: Non tachy, no cardiac gallop heart sounds appreciated Gastrointestinal: Mild distention, ND Musculoskeletal: no sig distal peripheral edema b/l, some mild swelling of hands, gouty tophi and other OA nodes Integumentary: No rashes Neurological: Normal speech, Normal tone, Normal affect Conclusions/Impression: 1. Prior BRIDGER/ARF episodes without need for [employer] over the past 1-1.5 years, on underlying CKD Stage IV 2nd to Type 1/2 CRS, other. Renal function currently within baseline range. 2. 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 Currently off Entresto, cont maintenance loop diuretics. No overt decompensation currently. SGLT2i agents are non routinely used in low GFR states but will cont for now 3. chronic HTN -monitor closely, cont afterload reduction, target BP < 130/80 4. Hyperuriciemia with possible acute gout of the hands/other, in the setting of chronic diuretic use, other. Do not use any further Colchicine given interactions with Coreg and Epclusa and reduced CrCl state. Con Prednisone. Will increase Allopurinol to 300 mg qd, CrCl > 30 ml/min currently.
[2023-12-06] MEDS: CALCIUM ACETATE 667 MG TAB PO SCH (11:26)
--- NOTE | 2023-12-06 18:20 | P.PN ---
Date of Service: 12/06/23 Subjective Feeling well Likely discharge in the AM ROS 10 point ROS as noted above, otherwise negative Physical Exam General: No acute distress, alert and oriented x 3, uncomfortable HEENT: Atraumatic, Normocephalic, PERRLA Neck: Supple, 2+ carotid pulse no bruit Respiratory: Clear to auscultation bilaterally, Normal air movement, on room air Cardiovascular: RRR, Normal S1 S2, systolic murmur Capillary refill: <2 Seconds Gastrointestinal: Normal bowel sounds, Soft and benign on palpation, Distended, Tenderness Musculoskeletal: No clubbing, Other Integumentary: No breakdown Vitals Reviewed Problem list Systolic congestive heart failure reduced EF Elevated troponin Hx Atrial fibrillation Portal hypertension Fluid volume overload Hyponatremia CKD IIIb/IV Hyperglycemia Hx of mural thrombus Hx TIA HX pancreatitis Hx of hepatitis C/treated Hx of hypertension Assessment and plan Systolic congestive heart failure reduced EF Elevated troponin Hx Atrial fibrillation troponin 920, 1067.7, 1012.5 Continue home medications Consult cardiology Ascites reported on CT abd/pelvis Continuous telemetry auto diuresing, strict I's and O Portal hypertension Fluid volume overload Hyponatremia- resolved BNP 23,430, sodium 137 Serial troponin pending Will follow fluid volume status CKD IIIb/IV Consult nephrology BUN/creatinine 68/2.30, GFR 31- improved Acute Gout flare up Bilateral elbows, left hand, and back Continue allopurinol continue Colchicine continue Prednisone Uric acid 12.3 Hyperglycemia A1C in the AM Serum glucose 128 Hx of mural thrombus Hx TIA on Eliquis HX pancreatitis Hx of hepatitis C/treated Hx of hypertension continue home medications Lipase 126 DVT ppx on Eliquis Full code LOS 2-3 days
--- NOTE | 2023-12-06 18:47 | CON ---
Reason For Consultation: Elevated troponin. History Of Present Illness: 63-year-old male, known to have severe systolic heart failure, hypertens ion, coronary artery disease, atrial fibrillation, chronic kidney disease, TIA, LV thrombus, presente d due to pain in his joints, especially his hands and arms and all over body aches and a troponin was checked and it was borderline elevated, in which he has chronic elevated troponin and he was in the hospital recently and a stress test was done which was negative. Saw him by bedside and he denied lira ving any active chest pain. Past Medical History: As outlined above in the HPI. Medications: Refer to reconciliation sheet for detailed list. Allergies: PENICILLIN. Family History: No premature coronary artery disease or cancer. Social History: He does not smoke and does not use any drugs, but drinks alcohol on a regular basis. Review of Systems: All systems reviewed and they were negative except as mentioned in the HPI. Physical Examination: Vital Signs: Reviewed. Head and Neck: Pupils are equal, reactive to light. Intact eye movements. No cervical lymphadenopa thy. Neck is supple. Thyroid is not enlarged. Lungs: Clear to auscultation bilaterally. No rhonchi, wheezing, or crackles. No accessory muscle u se. Heart: Irregular. No extra sounds. Abdomen: Soft, nontender. Bowel sounds positive. No organomegaly. No masses or hernia. No rigidi ty or rebound. Extremities: No clubbing or cyanosis. Intact pulses. Skin: No rash. No nodule. Neurologic: Alert, awake, oriented x3. No acute focal deficits appreciated. Investigations: Troponin is 1012, BUN 68, creatinine 2.30, and hemoglobin is 13.4. Assessment And Recommendations: 1.Elevated troponin, and there was no active chest pain. Stress test that was done on him last week did not show any stress-induced ischemia. I believe this is demand ischemia. 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 At this point, no further ischemia workup is recommended, especially that he is asymptomatic. 2.Congestive heart failure. Appears to be euvolemic. Continue torsemide. Monitor BUN, creatinine, and electrolytes. 3.Hypertension. Blood pressure is controlled. 4.Atrial fibrillation, appears to be controlled. Continue Eliquis and amiodarone. 5.Dyslipidemia. Continue Lipitor 40 mg q.h.s. SR/MODL Voice ID: [id number] Report ID: [id number]
--- NOTE | 2023-12-06 20:53 | PN ---
Date of Progress Note: 12/06/2023 Subjective: Seen by bedside. He is doing clinically well. No chest pain. No shortness of breath. Resting comfortable. Review of Systems: No chest pain, shortness of breath, orthopnea, or cough. No nausea, vomiting, or diarrhea. All othe r systems were reviewed, they were negative. Objective: Vital Signs: Reviewed. Head and Neck: Pupils are equal, reactive to light. Intact eye movements. No JVD. No cervical lym phadenopathy. Neck is supple. Thyroid is not enlarged. Lungs: Clear to auscultation bilaterally. No rhonchi, wheezing, or crackles. No accessory muscle u se. Heart: Irregular. No extra sounds. Abdomen: Soft, nontender. Bowel sounds positive. No organomegaly. No masses or hernia. No rigidi ty or rebound. Extremities: No clubbing or cyanosis. Intact pulses. Skin: No rash. No nodule. Neurologic: Alert, awake, oriented x3. No acute focal deficits appreciated. Investigations: BUN is 83, creatinine 2.7. Assessment And Recommendations: 1.Elevated troponin. Again, without chest pain. Negative stress test last week. No further interv ention is recommended at this point, and he does have chronic elevation of his troponin. 2.Systolic heart failure. Appears to be euvolemic. Continue current management. 3.Acute on chronic renal failure. His creatinine appears to be stable. Recommend close nephrology evaluation. 4.Dyslipidemia. Continue statin. 5.Atrial fibrillation. His rate is controlled on amiodarone and continue Eliquis as well. However, I recommend to cut down the dose of Eliquis to 2.5 mg twice a day due to advanced kidney failure. SR/MODL Voice ID: [id number] Report ID: [id number]
[2023-12-07 03:07] VITALS: O2SAT 99
[2023-12-07 07:30] VITALS: BP 120/70; TEMP 97.9
[2023-12-07] MEDS: allopurinoL 300 MG TAB PO SCH (09:03)
--- NOTE | 2023-12-07 14:50 | P.DS ---
Admission Date: 12/06/23 Discharge Date: 12/07/23 Disposition: ROUTINE DISCHARGE Discharge Condition: GOOD Reason for Admission: NSTEMI Brief History of Present Illness: Diagnosis Systolic congestive heart failure reduced EF Elevated troponin Hx Atrial fibrillation Portal hypertension Fluid volume overload Hyponatremia CKD IIIb/IV Acute Gout flare up Hyperglycemia Hx of mural thrombus Hx TIA HX pancreatitis Hx of hepatitis C/treated Hx of hypertension HPI 12/04/23 Natan Paulino is a 63 year old male with Pmhx CHF, Gout, Hypertension, Myocardial infarction (stent), osteoarthritis, Pancreatitis, Rheumatoid Arthritis, stroke, and TIA presents to the ED with chief complaint of pain all over including abdomen and chest. He reports not feeling well since discharge and has not been able to ambulate around the house since he went home. On examination he is laying on his right side, uncomfortable, abdominal pain throughout the abdomen. He reports increased urination. Natan was recently discharged (12/01), at that admission he was evaluated for NSTEMI and overdiuresis. Initial vitals BP 182 / 127; Pulse 86; Resp 17; Temp 98.4; Pulse Ox 100% Laboratory evaluation serum glucose 455, troponin 920, BNP 23,430, sodium 132, BUN/creatinine 70/2.9, GFR 23 Ultrasound abdomen reports "Mild gallbladder wall thickening with trace pericholecystic fluid, with negative sonographic Lorenzo sign. Findings favor sequelae of portal hypertension or fluid overload." CT abdomen pelvis without contrast reports "No acute intra-abdominal process. Trace free pelvic ascites. Mild cardiomegaly and mild pericardial effusion. Mild contour nodularity of the right liver lobe inferiorly, may relate to early cirrhotic or fibrotic changes. Please correlate with liver function profile. Suboptimal gallbladder distention limiting evaluation. Suggestion of mild wall edema or pericholecystic fluid which can be seen in the setting of liver disease or fluid overload. Acute cholecystitis is considered less likely. Please correlate with physical exam." Natan will be admitted to hospitalist service for further evaluation and treatment. Hospital Course: Natan Paulino is a pleasant 63 year old male with a past medical history significant for Gout, Hypertension, Myocardial infarction (stent), osteoarthritis, Pancreatitis, Rheumatoid Arthritis, stroke, and TIA who was admitted to the [facility] on 12/04/23 for unable to ambulate. Natan Paulino presents to the ED after recent discharge, continuing to not feel well or able to ambulate. He was found to have an extensive gout flare up and was treated successfully, will continue treatment after discharge. He is able to ambulate independently, tolerating p.o. diet, urinating without difficulty, and hemodynamically stable for discharge. On 12/07/23, Natan was seen on morning rounds and deemed medically stable for discharge. Natan was discharged with instructions to schedule follow-up appointments with PCP and Dr. Rossi . Natan was provided prescriptions for Eliquis, colchicine, prednisone, allopurinol. The patient wasgiven the opportunity to ask questions and reported no further questions. Furthermore, all questions were answered to the best of my ability. A copy of this discharge summary will be sent to the above providers to facilitate continuity of care. Physical Exam General: Awake alert and oriented x 3, no acute distress HEENT: Atraumatic, Normocephalic, PERRLA Neck: Supple, 2+ carotid pulse no bruit Respiratory: Clear to auscultation bilaterally, Normal air movement, on room air Cardiovascular: Normal S1 S2, regular rate and rhythm, systolic murmur Capillary refill: <2 Seconds Gastrointestinal: Normal bowel sounds, Soft and benign on palpation, Distended, Tenderness Musculoskeletal: No clubbing, Other Integumentary: No breakdown Vital Signs/Physical Exam: Temp Pulse Resp BP Pulse Ox 97.9 F 68 18 120/70 97 12/07/23 07:26 12/07/23 09:04 12/07/23 07:26 12/07/23 09:04 12/07/23 07:26 Laboratory Data at Discharge: WBC 9.30 thou/uL (4.3-10.9) 12/05/23 06:50 Hgb 13.4 g/dL (13.6-17.9) L 12/05/23 06:50 Hct 41.8 % (39.6-49.0) 12/05/23 06:50 Plt Count 279 thou/uL (152-406) 12/05/23 06:50 Sodium 134 mEq/L (136-145) L 12/06/23 05:51 Potassium 4.7 mEq/L (3.5-5.1) D 12/06/23 05:51 BUN 83 mg/dL (7-18) H 12/06/23 05:51 Creatinine 2.72 mg/dL (0.70-1.30) H 12/06/23 05:51 Glucose 225 mg/dL (74-106) H 12/06/23 05:51 Uric Acid 12.3 mg/dL (3.5-7.2) H 12/06/23 05:51 Phosphorus 2.6 mg/dL (2.5-4.9) 12/05/23 06:50 Magnesium 2.3 mg/dL (1.6-2.4) 12/05/23 06:50 Total Bilirubin 0.7 mg/dL (0.2-1.0) 12/06/23 05:51 AST 29 U/L (15-37) 12/06/23 05:51 ALT 25 U/L (16-61) 12/06/23 05:51 Alkaline Phosphatase 133 U/L (45-117) H 12/06/23 05:51 Lipase 126 U/L (13-75) H 12/05/23 06:50 Home Medications: Pantoprazole [Protonix Tab*] 40 mg PO DAILY #30 tab 09/06/21 Aspirin [Aspirin EC] 81 mg PO DAILY #30 tab 10/29/22 Amiodarone HCl [Cordarone*] 200 mg PO DAILY 08/22/23 Ferrous Sulfate 325 mg PO DAILY 08/22/23 Isosorbide Dinit [Isordil*] 20 mg PO TID 08/22/23 Sofosbuvir/Velpatasvir [Epclusa 400 mg-100 mg Tablet] 1 each PO DAILY 08/22/23 Atorvastatin Calcium [Lipitor] 40 mg PO BEDTIME 10/13/23 Calcium Acetate [Phoslo] 2 cap PO TIDWM 11/28/23 Dapagliflozin Propanediol [Farxiga] 10 mg PO DAILY 11/28/23 Folic Acid 1 mg PO DAILY 11/28/23 Torsemide [Demadex*] 20 mg PO DAILY 11/28/23 carvediloL [Coreg*] 12.5 mg PO BID 11/28/23 Benzonatate [Tessalon Perle*] 100 mg PO TID PRN #20 cap 12/02/23 Hydralazine [Apresoline*] 25 mg PO TID #90 tab 12/02/23 predniSONE [Prednisone*] 20 mg PO BID #11 tab 12/02/23 Allopurinol 300 mg PO DAILY 30 Days #30 tab 12/07/23 Apixaban [Eliquis] 2.5 mg PO BID 30 Days #60 tab 12/07/23 Colchicine 0.6 mg PO BID 14 Days #28 cap 12/07/23 Vitamin D [Drisdol*] 50,000 unit PO EVERY 7TH DAY 30 Days #4 cap 12/07/23 allopurinoL [Zyloprim*] 300 mg PO DAILY tab 12/07/23 predniSONE [Prednisone*] 20 mg PO DAILY 14 Days #14 tab 12/07/23 New Medications: Allopurinol 300 mg PO DAILY 30 Days #30 tab Colchicine 0.6 mg PO BID 14 Days #28 cap Vitamin D [Drisdol*] 50,000 unit PO EVERY 7TH DAY 30 Days #4 cap Apixaban [Eliquis] 2.5 mg PO BID 30 Days #60 tab predniSONE [Prednisone*] 20 mg PO DAILY 14 Days #14 tab Physician Discharge Instructions: Natan Paulino presents to the ED after recent discharge, continuing to not feel well or able to ambulate. He was found to have extensive gout flare up and was treated successfully, will continue treatment after discharge. He is able to ambulate independently. 1. Please call and schedule a follow-up appointment with your PCP in 3-5 days - Please follow-up with your PCP for medication refills/adjustments 2. Please call and schedule a follow-up appointment with Dr. Rossi in one week 3. Continue Renal diet 4. No activity restrictions, use safe ambulation to prevent falling with sore back 5. Return to the ED if symptoms worsen New medications Prednisone 20 mg PO daily x 14 days Colchicine 0.6 mg twice daily x 14 days Eliquis 2.5 PO BID - changed dose allopurinol 300 mg PO daily Diet: Renal Activity: Fall precautions Followup: Anton Hayes DO [Primary Care Provider] -
== END 2023-12-07 10:28 | disposition home or self-care (01) | DRG 554 ==
LOC: ER 07:21 → ERHOLD 12:41 → 4TH 13:56 → OBSVTOIN 12-06 08:55
PROVIDERS: ADMIT Internal Medicine; ATTEND Internal Medicine
DX: M10.9 Gout, unspecified (principal); I50.22 Chronic systolic (congestive) heart failure; I13.0 Hypertensive heart and chronic kidney disease with heart failure and stage 1 through stage 4 chronic kidney disease, or unspecified chronic kidney disease; N18.4 Chronic kidney disease, stage 4 (severe); K76.6 Portal hypertension; E87.1 Hypo-osmolality and hyponatremia; R18.8 Other ascites; N17.9 Acute kidney failure, unspecified; I42.0 Dilated cardiomyopathy; I24.89 Other forms of acute ischemic heart disease; I31.39 Other pericardial effusion (noninflammatory); I27.22 Pulmonary hypertension due to left heart disease; I48.91 Unspecified atrial fibrillation; M06.9 Rheumatoid arthritis, unspecified; D63.1 Anemia in chronic kidney disease; I25.10 Atherosclerotic heart disease of native coronary artery without angina pectoris; I25.2 Old myocardial infarction; R73.9 Hyperglycemia, unspecified; Z88.0 Allergy status to penicillin; Z95.5 Presence of coronary angioplasty implant and graft; Z86.73 Personal history of transient ischemic attack (TIA), and cerebral infarction without residual deficits; Z79.82 Long term (current) use of aspirin; Z79.01 Long term (current) use of anticoagulants; Z79.52 Long term (current) use of systemic steroids; Z79.899 Other long term (current) drug therapy
CPT/HCPCS: 36415; 71045; 74176; 76705; 80048; 80053; 82947; 83036; 83690; 83735; 83880; 84100; 84484; 84550; 85025; 93005; 96374; 96375; 99285; G0378; J0360; J1644; J1815; J2270; J2405; J7512

== ENCOUNTER 2024-01-26 13:00 | Inpatient (IN) | payer OTHER ==
[2024-01-26] MEDS ORDERED: ONDANSETRON 4 MG/2 ML VIAL ONE (13:55)
[2024-01-26] MEDS ORDERED: NA CHLORIDE 0.9% 1,000 ML ONE (13:55)
[2024-01-26] MEDS ORDERED: MORPHINE 4 MG/ML SYR ONE (13:55)
--- NOTE | 2024-01-26 14:07 | RAD REPORT ---
EXAM DESCRIPTION: RAD - Chest Single View - 01/26/2024 1:58 pm CLINICAL HISTORY: CHEST PAIN COMPARISON: Chest Single View dated 01/07/2024; Chest Single View dated 12/04/2023; Chest Single View dated 11/27/2023; Chest Single View dated 10/13/2023 FINDINGS: Lines: None. Lungs: No evidence of edema or pneumonia. Pleural: No significant pleural effusions or pneumothorax. Cardiac: The heart size is within normal limits. Mediastinum: Within normal limits. Bones: No acute fractures. Other: None IMPRESSION: No acute cardiopulmonary disease.
[2024-01-26 14:11] LABS: PT Prothrombin Time 12.3 SECONDS (9.5-12.5); Protime INR 1.12
[2024-01-26 14:12] LABS: Absolute Eosinophils 0.3 K/uL (0-0.5); Absolute Monocytes 0.9 K/uL (0.1-1.3); Absolute Neutrophil 4.8 K/uL (1.8-8.0); Basophils % 0.5 % (0-1.3); Eosinophils % 3.9 % (0-4.4); Hematocrit 38.7 % (39.6-49.0); Hemoglobin 12.4 g/dL (13.6-17.9); Lymphocytes % 14.1 % (15.3-44.8); MCH 26.7 pg (27.0-35.0); MCV 83.6 fL (80-100); MPV 8.4 fL (7.6-11.3); Monocytes % 12.4 % (3.3-12.3); Neutrophils % 69.1 % (41.7-73.7); Platelets 266 thou/uL (152-406); RBC Red Blood Cell Count 4.63 M/uL (4.33-5.43); Red Cell Distribution Width 18.9 % (12.1-15.2)
[2024-01-26 14:28] LABS: Albumin 3.2 g/dL (3.4-5.0); Albumin/Globulin Ratio 0.6 (1.1-1.8); Anion Gap 11.2 mEq/L (5.0-15.0); Bilirubin Direct 0.5 mg/dL (0-0.2); Bilirubin Indirect, Calculated 0.9 mg/dL (0.2-0.8); Bilirubin Total 1.4 mg/dL (0.2-1.0); Globulin 5.2 g/dL (2.3-3.5); Magnesium 2.3 mg/dL (1.6-2.4); Potassium 4.2 mEq/L (3.5-5.1); Protein, Total 8.4 g/dL (6.4-8.2)
[2024-01-26 14:30] LABS: Troponin High Sensitivity 934.2 pg/mL (<58.9)
[2024-01-26] MEDS ORDERED: NITROGLYCERIN 0.4 MG/TAB SL ONE (14:39)
--- NOTE | 2024-01-26 15:18 | RAD REPORT ---
EXAM DESCRIPTION: CTAbdomen Pelvis Wo Contrast - 01/26/2024 3:11 pm CLINICAL HISTORY: ABD PAIN COMPARISON: Abdomen Pelvis Wo Contrast dated 12/04/2023; Abdomen Pelvis Wo Contrast dated 10/28/19 23; Abdomen Pelvis Wo Contrast dated 08/13/2022; Abdomen Pelvis Wo Contrast dated 01/09/2022 TECHNIQUE: CT of the abdomen and pelvis was performed. All CT scans are performed using dose optimization technique as appropriate and may include automated exposure control or mA/KV adjustment according to patient size. FINDINGS: Lower chest: Cardiomegaly. Small pericardial effusion. Liver: Cirrhotic liver morphology. Biliary: No biliary ductal dilatation. Stomach: No significant focal abnormality. Duodenum: No significant focal abnormality. Pancreas: Diffuse peripancreatic edema. Spleen: No significant abnormality. Adrenal: No suspicious lesions. Kidney/ureter: No hydronephrosis. No renal calculi. Too small to characterize and/or benign appearing renal lesions are noted. Retroperitoneum: No retroperitoneal adenopathy. Vascular: No aneurysm. Bowel: No significant focal abnormality. Peritoneum: Small fat containing inguinal hernias. No fluid collections identified. No free fluid. Bladder: Grossly unremarkable. Reproductive: No adnexal masses. Bones: No acute fracture. Multilevel degenerative changes are present in the spine. Other: n/a IMPRESSION: Findings consistent with acute pancreatitis. Within the limitations of a noncontrast CT, no complicating features.
[2024-01-26] MEDS ORDERED: FENTANYL CITR 100 MCG/2 ML ONE (15:39)
--- NOTE | 2024-01-26 15:46 | EDPHYS ---
Physician Documentation [facility] Name: Natan Paulino Age: 63 yrs Sex: Male : 1960 Arrival Date: 01/26/2024 Time: 13:00 Bed 6 Private MD: ED Physician Toya Ansari HPI: 01/25 13:28 This 63 yrs old Black Male presents to ER via Ambulatory with complaints of 7 Palpitations, Abdominal Pain, Vomiting. 13:28 63-year-old male with a past medical history of pancreatitis, NH, hypertension, and CHF jh7 presents to the ER for epigastric pain, nausea/vomiting, and chest pain starting last night. He denies fever or diarrhea. He states that the pain started in his epigastrium and it is now radiated to his chest. He states that he believes his pancreatitis is flaring up.. Historical: - Allergies: 13:28 PENICILLINS; as6 - PMHx: 13:28 CHF; Gout; Hypertension; Myocardial infarction; osteoarthritis; Pancreatitis; as6 Rheumatoid Arthritis; stroke; TIA; - PSHx: 13:28 finger; heart stent; Stented artery; as6 - Immunization history:: Adult Immunizations up to date. - Infectious Disease History:: Denies. - Social history:: Smoking status: Patient denies any tobacco usage or history of. ROS: 13:28 Constitutional: Per HPI jh7 Exam: 13:28 Head/Face: Normocephalic, atraumatic. Eyes: Pupils equal round and reactive to light, jh7 extra-ocular motions intact. Lids and lashes normal. Conjunctiva and sclera are non-icteric and not injected. Cornea within normal limits. Periorbital areas with no swelling, redness, or edema. Neck: Trachea midline, no thyromegaly or masses palpated, and no cervical lymphadenopathy. Supple, full range of motion without nuchal rigidity, or vertebral point tenderness. No Meningismus. 13:28 Cardiovascular: Regular rate and rhythm with a normal S1 and S2. No gallops, murmurs, or rubs. Normal PMI, no JVD. No pulse deficits. Respiratory: Lungs have equal breath sounds bilaterally, clear to auscultation and percussion. No rales, rhonchi or wheezes noted. No increased work of breathing, no retractions or nasal flaring. Back: No spinal tenderness. No costovertebral tenderness. Full range of motion. Skin: Warm, dry with normal turgor. Normal color with no rashes, no lesions, and no evidence of cellulitis. MS/ Extremity: Pulses equal, no cyanosis. Neurovascular intact. Full, normal range of motion. Neuro: Awake and alert, GCS 15, oriented to person, place, time, and situation. Motor strength 5/5 in all extremities. Sensory grossly intact. Normal gait. 13:28 Constitutional: The patient appears alert, awake, in obvious pain, 13:28 Abdomen/GI: Inspection: abdomen appears normal, Bowel sounds: normal, Palpation: soft, moderate abdominal tenderness, in the epigastric area, right upper quadrant and left upper quadrant, Vital Signs: 13:27 BP 161 / 107; Pulse 86; Resp 18; Temp 97.1; Pulse Ox 100% ; Weight 90.72 kg; Height 6 as6 ft. 3 in. ; Pain 10/10; 14:07 BP 169 / 112; Pulse 87; Resp 18 S; Pulse Ox 100% on R/A; kc6 14:38 BP 175 / 117; Pulse 83; Resp 17 S; Pulse Ox 97% on R/A; kc6 14:40 BP 167 / 112; Pulse 85; kc6 14:45 BP 164 / 111; Pulse 85; kc6 14:50 BP 160 / 109; Pulse 81; Resp 16 S; Pulse Ox 98% on R/A; kc6 14:55 BP 164 / 110; Pulse 86; kc6 15:30 BP 149 / 111; Pulse 80; Resp 18 S; Pulse Ox 100% on R/A; kc6 15:44 BP 169 / 111; Pulse 84; Resp 19 S; Pulse Ox 100% on R/A; kc6 16:40 BP 165 / 114; Pulse 83; Resp 18; Temp 97.2; Pulse Ox 97% on R/A; db 17:00 BP 173 / 118; Pulse 83; Resp 22; Pulse Ox 99% on R/A; db 13:27 Body Mass Index 25.00 (90.72 kg, 190.5 cm) as6 13:27 Pain Scale: Adult as6 MDM: 13:07 Patient medically screened. [facility] 15:50 RUDY Risk Score: 1 - Patient's age is greater or equal to 65, 1 - Known CAD, 1 - Recent 7 [<24 hrs] Severe Angina, 1 - Elevated Cardiac Markers, Total Score = 4. Differential diagnosis: Acute pancreatitis, AMI, NSTEMI, stable angina, gastritis, CHF exacerbation. Data reviewed: vital signs, nurses notes, lab test result(s), EKG, radiologic studies, CT scan, plain films. Consideration of Admission/Observation Patient was admitted/placed on observation. Management of patient was discussed with the following: Hospitalist: Dr. Jha. I considered the following discharge prescriptions or medication management in the emergency department Medications were administered in the Emergency Department. See MAR. Independent interpretation of the following test(s) in the Emergency Department EKG: See my EKG interpretation above. Care significantly affected by the following chronic conditions: Hypertension, Congestive Heart Failure. Counseling: I had a detailed discussion with the patient and/or guardian regarding the historical points, exam findings, and any diagnostic results supporting the discharge/admit diagnosis, the need for further work-up and treatment in the hospital. Response to treatment: the patient's symptoms have mildly improved after treatment. 01/25 13:41 Order name: Basic Metabolic Panel; Complete Time: 14:41 [facility] 01/25 13:41 Order name: CBC with Diff; Complete Time: 14:41 [facility] 01/25 13:41 Order name: LFT's; Complete Time: 14:41 [facility] 01/25 13:41 Order name: Magnesium; Complete Time: 14:41 [facility] 01/25 13:41 Order name: NT PRO-BNP; Complete Time: 14:41 [facility] 01/25 13:41 Order name: PT-INR; Complete Time: 14:41 [facility] 01/25 13:41 Order name: Troponin HS; Complete Time: 14:41 [facility] 01/25 13:41 Order name: Lipase; Complete Time: 14:41 [facility] 01/25 13:41 Order name: XRAY Chest (1 view); Complete Time: 14:10 [facility] 01/25 14:56 Order name: Abdomen ; Complete Time: 15:21 [facility] 01/25 13:41 Order name: Cardiac monitoring; Complete Time: 14:03 [facility] 01/25 13:41 Order name: EKG - Nurse/Tech; Complete Time: 14:17 [facility] 01/25 13:41 Order name: IV Saline Lock; Complete Time: 14:03 [facility] 01/25 13:41 Order name: Labs collected and sent; Complete Time: 14:04 [facility] 01/25 13:41 Order name: O2 Per Protocol; Complete Time: 14:00 [facility] 01/25 13:41 Order name: O2 Sat Monitoring; Complete Time: 14:00 [facility] EC:14 Rate is 86 beats/min. Rhythm is regular. QRS [place] is Normal. Left axis deviation noted. [facility] [place] interval is prolonged at 228 msec. QRS interval is normal at 150 msec. QT interval is normal at 428 msec. No Q waves. T waves are Normal. Clinical impression: 1st degree heart block. Administered Medications: 14:03 Drug: morphine IVP or IV 4 mg IVP once over 4 mins Route: IVP; Infused Over: 4 mins; db Site: right wrist; 14:43 Follow up: Response: No adverse reaction; RASS: Alert and Calm (0) [facility] 14:03 Drug: Ondansetron IVP 4 mg IVP once; over 2 minutes Route: IVP; Site: right wrist; db 14:43 Follow up: Response: No adverse reaction [facility] 14:03 Drug: NS 0.9% IV 1000 ml IV at 1 bolus Per protocol; 1000 mL bolus Route: IV; Rate: 1 db bolus; Site: right wrist; 15:30 Follow up: Response: No adverse reaction; IV Status: Completed infusion; IV Intake: kc6 1000ml 14:42 Drug: Nitroglycerin Sublingual 0.4 mg Sublingual once; every five minute if needed x3 kc6 Route: Sublingual; 14:47 Drug: Nitroglycerin Sublingual 0.4 mg Sublingual once; every five minute if needed x3 kc6 Route: Sublingual; 14:53 Drug: Nitroglycerin Sublingual 0.4 mg Sublingual once; every five minute if needed x3 db Route: Sublingual; 15:44 Follow up: Response: No adverse reaction db 15:44 Drug: fentaNYL (PF) IVP 50 mcg IVP once Route: IVP; Site: right hand; kc6 16:54 Follow up: Response: No adverse reaction db Disposition Summary: 01/26/24 15:45 Hospitalization Ordered Notes: Hospitalization Status: Inpatient Admission [facility] Provider: Bill Jha [facility] Location: Telemetry/[facility] (Inpatient) [facility] Condition: Stable [facility] Problem: new [facility] Symptoms: have worsened [facility] Bed/Room Type: Standard [facility] Room Assignment: 406(01/26/24 16:16) Diagnosis - Biliary acute pancreatitis [facility] - Elevated Troponin [facility] - Acute on chronic combined systolic (congestive) and diastolic (congestive) heart [facility] failure - Subsequent non-ST elevation (NSTEMI) myocardial infarction [facility] Forms: - Medication Reconciliation Form [facility] - SBAR form [facility] - Leadership Thank You Letter [facility] Signatures: Dispatcher [employer] EDMS Osiris Lama Ashby, RN RN as6 Geena Schultz, INDUSTRIAL CAFETERIA MANAGER INDUSTRIAL CAFETERIA MANAGER jh7 Sita Carrillo, RN RN kc6 Alice Branch RN RN db Corrections: (The following items were deleted from the chart) 13:42 13:42 BASIC METABOLIC PANEL+C.LAB.BRZ ordered. EDMS EDMS 13:42 13:42 CBC+H.LAB.BRZ ordered. EDMS EDMS 13:42 13:42 HEPATIC FUNCTION+C.LAB.BRZ ordered. EDMS EDMS 13:42 13:42 MAGNESIUM+C.LAB.BRZ ordered. EDMS EDMS 13:42 13:42 PROBNP+C.LAB.BRZ ordered. EDMS EDMS 13:42 13:42 PROTIME (+INR)+COAG.LAB.BRZ ordered. EDMS EDMS 13:42 13:42 Troponin High Sensitivity+C.LAB.BRZ ordered. EDMS EDMS 13:42 13:42 LIPASE+C.LAB.BRZ ordered. EDMS EDMS 13:42 13:42 Chest Single View+RAD.RAD.BRZ ordered. EDMS EDMS 14:56 14:43 Abdomen Pelvis W Con+CT.RAD.BRZ ordered. EDMS EDMS 16:16 15:45 [facility] eb
--- NOTE | 2024-01-26 15:46 | ER ---
Nurse's Notes [facility] Name: Natan Paulino Age: 63 yrs Sex: Male : 1960 Arrival Date: 01/26/2024 Time: 13:00 Bed 6 Private MD: Diagnosis: Biliary acute pancreatitis;Acute on chronic combined systolic (congestive) and diastolic (congestive) heart failure;Subsequent non-ST elevation (NSTEMI) myocardial infarction Presentation: 01/25 13:28 Chief complaint: Patient states: nausea, vomiting, chest pain. Coronavirus screen: At as6 this time, the client does not indicate any symptoms associated with coronavirus-19. Ebola Screen: No symptoms or risks identified at this time. Initial Sepsis Screen: Does the patient meet any 2 criteria? No. Patient's initial sepsis screen is negative. Does the patient have a suspected source of infection? No. Patient's initial sepsis screen is negative. Risk Assessment: Do you want to hurt yourself or someone else? Patient reports no desire to harm self or others. Onset of symptoms was January 25, 2024. 13:28 Acuity: NINO 3 as6 13:28 Method Of Arrival: Ambulatory as6 Historical: - Allergies: 13:28 PENICILLINS; as6 - PMHx: 13:28 CHF; Gout; Hypertension; Myocardial infarction; osteoarthritis; Pancreatitis; as6 Rheumatoid Arthritis; stroke; TIA; - PSHx: 13:28 finger; heart stent; Stented artery; as6 - Immunization history:: Adult Immunizations up to date. - Infectious Disease History:: Denies. - Social history:: Smoking status: Patient denies any tobacco usage or history of. Screenin:04 [facility] ED Fall Risk Assessment (Adult) History of falling in the last 3 months, db including since admission No falls in past 3 months (0 pts) Confusion or Disorientation No (0 pts) Intoxicated or Sedated No (0 pts) Impaired Gait No (0 pts) Mobility Assist Device Used No (0 pt) Altered Elimination No (0 pt) Score/Fall Risk Level 0 - 2 = Low Risk Oriented to surroundings, Maintained a safe environment. Abuse screen: Denies threats or abuse. Denies injuries from another. Nutritional screening: No deficits noted. Tuberculosis screening: No symptoms or risk factors identified. Assessment: 13:55 Reassessment: Patient appears in no apparent distress at this time. Patient and/or db family updated on plan of care and expected duration. Pain level reassessed. Patient is alert, oriented x 3, equal unlabored respirations, skin warm/dry/pink. General: Appears in no apparent distress. comfortable, Behavior is calm, cooperative. Pain: Complains of pain in chest and abdomen. GI: Bowel sounds Abd is soft. 14:30 Reassessment: Patient appears in no apparent distress at this time. Patient and/or db family updated on plan of care and expected duration. Pain level reassessed. Patient is alert, oriented x 3, equal unlabored respirations, skin warm/dry/pink. 15:30 Reassessment: Patient appears in no apparent distress at this time. Patient and/or db family updated on plan of care and expected duration. Pain level reassessed. Patient is alert, oriented x 3, equal unlabored respirations, skin warm/dry/pink. 16:52 Reassessment: Patient appears in no apparent distress at this time. Patient and/or db family updated on plan of care and expected duration. Pain level reassessed. Patient is alert, oriented x 3, equal unlabored respirations, skin warm/dry/pink. Patient states feeling better. Patient states symptoms have improved. Neuro: Level of Consciousness is awake, alert, obeys commands, Oriented to person, place, time, situation. Respiratory: Airway is patent Respiratory effort is even, unlabored, Respiratory pattern is regular, symmetrical. 17:51 Reassessment: Patient appears in no apparent distress at this time. Patient and/or db family updated on plan of care and expected duration. Pain level reassessed. Patient is alert, oriented x 3, equal unlabored respirations, skin warm/dry/pink. Vital Signs: 13:27 BP 161 / 107; Pulse 86; Resp 18; Temp 97.1; Pulse Ox 100% ; Weight 90.72 kg; Height 6 as6 ft. 3 in. ; Pain 10/10; 14:07 BP 169 / 112; Pulse 87; Resp 18 S; Pulse Ox 100% on R/A; kc6 14:38 BP 175 / 117; Pulse 83; Resp 17 S; Pulse Ox 97% on R/A; kc6 14:40 BP 167 / 112; Pulse 85; kc6 14:45 BP 164 / 111; Pulse 85; kc6 14:50 BP 160 / 109; Pulse 81; Resp 16 S; Pulse Ox 98% on R/A; kc6 14:55 BP 164 / 110; Pulse 86; kc6 15:30 BP 149 / 111; Pulse 80; Resp 18 S; Pulse Ox 100% on R/A; kc6 15:44 BP 169 / 111; Pulse 84; Resp 19 S; Pulse Ox 100% on R/A; kc6 16:40 BP 165 / 114; Pulse 83; Resp 18; Temp 97.2; Pulse Ox 97% on R/A; db 17:00 BP 173 / 118; Pulse 83; Resp 22; Pulse Ox 99% on R/A; db 13:27 Body Mass Index 25.00 (90.72 kg, 190.5 cm) as6 13:27 Pain Scale: Adult as6 ED Course: 13:01 Patient arrived in ED. ts1 13:07 Geena Schultz FNP is PHCP. jh7 13:07 Toya Ansari MD is Attending Physician. jh7 13:27 Arm band placed on right wrist. as6 13:29 Triage completed. as6 13:43 Alice Branch, RADHIKA is Primary Nurse. db 13:55 Inserted saline lock: 22 gauge in right wrist, using aseptic technique. Blood collected.db 14:00 XRAY Chest (1 view) In Process Unspecified. EDMS 14:07 Patient has correct armband on for positive identification. Bed in low position. Call kc6 light in reach. Side rails up X 1. Adult w/ patient. 14:17 EKG done, by ED staff, reviewed by Geena MARQUEZ. db 14:55 Patient requests pain medication. kc6 15:12 Abdomen In Process Unspecified. EDMS 15:43 Bill Jha MD is Hospitalizing Provider. jh7 16:52 No provider procedures requiring assistance completed. Patient admitted, IV remains in db place. 17:49 Inserted saline lock: 22 gauge in left hand, using aseptic technique. sm8 17:49 IV discontinued, intact, bleeding controlled, No redness/swelling at site. Pressure sm8 dressing applied. 17:50 Provided Education on: ADMISSION. Client placed on continuous cardiac and pulse db oximetry monitoring. NIBP monitoring applied. residential monitor on. Pulse ox on. NIBP on. Warm blanket given. Administered Medications: 14:03 Drug: morphine IVP or IV 4 mg IVP once over 4 mins Route: IVP; Infused Over: 4 mins; db Site: right wrist; 14:43 Follow up: Response: No adverse reaction; RASS: Alert and Calm (0) 6 14:03 Drug: Ondansetron IVP 4 mg IVP once; over 2 minutes Route: IVP; Site: right wrist; db 14:43 Follow up: Response: No adverse reaction kc6 14:03 Drug: NS 0.9% IV 1000 ml IV at 1 bolus Per protocol; 1000 mL bolus Route: IV; Rate: 1 db bolus; Site: right wrist; 15:30 Follow up: Response: No adverse reaction; IV Status: Completed infusion; IV Intake: kc6 1000ml 14:42 Drug: Nitroglycerin Sublingual 0.4 mg Sublingual once; every five minute if needed x3 kc6 Route: Sublingual; 14:47 Drug: Nitroglycerin Sublingual 0.4 mg Sublingual once; every five minute if needed x3 kc6 Route: Sublingual; 14:53 Drug: Nitroglycerin Sublingual 0.4 mg Sublingual once; every five minute if needed x3 db Route: Sublingual; 15:44 Follow up: Response: No adverse reaction db 15:44 Drug: fentaNYL (PF) IVP 50 mcg IVP once Route: IVP; Site: right hand; kc6 16:54 Follow up: Response: No adverse reaction db Medication: 16:54 VIS not applicable for this client. db Intake: 15:30 IV: 1000ml; Total: 1000ml. 6 Outcome: 15:45 Decision to Hospitalize by Provider. [facility] 16:52 Admitted to ER Hold. Please see [facility] for further documentation. db 16:52 Condition: stable 16:52 Instructed on the need for admit, 17:52 Patient left the ED. db Signatures: Dispatcher [employer] EDMalcolm Sepulveda RN RN as6 Geena Schultz, SCIENTIST/ENGINEER SCIENTIST/ENGINEER jh7 Sita Carrillo RN RN kc6 Alice Branch RN RN db Eliz Hoffman PAS PAS ts1 Aisha Sneed sm8 Corrections: (The following items were deleted from the chart) 14:50 14:50 BP 106 / 109; Pulse 81bpm; Resp 16bpm; Spontaneous; Pulse Ox 98% RA; kc6 kc6 17:50 17:49 Inserted saline lock: 22 gauge in left antecubital area, using aseptic technique. db db
--- NOTE | 2024-01-26 16:20 | P.HP ---
Certification for Inpatient Patient admitted to: Inpatient With expected LOS: >2 Midnights Patient will require the following post-hospital care: None Practitioner: I am a practitioner with admitting privileges, knowledge of patient current condition, hospital course, and medical plan of care. Services: Services provided to patient in accordance with Admission requirements found in Title 42 Section 412.3 of the Code of Federal Regulations Patient History Date of Service: 01/26/24 Reason for admission: Acute pancreatitis History of Present Illness: 63-year-old male with history of chronic systolic congestive heart failure, CAD with previous stent, paroxysmal atrial fibrillation/history of mural thrombus, pancreatitis, gout, CKD 4, hypertension presents emergency department chief complaint of upper abdominal pain, nausea, vomiting. He reports his symptoms began after having an alcoholic beverage which is similar to previous episodes. He was evaluated in the emergency department and his labs are significant for sodium 134 bicarb 19 creatinine 2.14 GFR 34 high- sensitivity troponin 934.2, BNP 14,[address] abdomen pelvis shows acute pancreatitis. Patient with chronically elevated troponin. EKG without STEMI criteria, will need to be admitted for emergent management of acute pancreatitis. Allergies Penicillins Allergy (Verified 10/27/22 21:16) Hives/Rash Home Medications: Pantoprazole [Protonix Tab*] 40 mg PO DAILY #30 tab 09/06/21 Aspirin [Aspirin EC] 81 mg PO DAILY #30 tab 10/29/22 Amiodarone HCl [Cordarone*] 200 mg PO DAILY 08/22/23 Ferrous Sulfate 325 mg PO DAILY 08/22/23 Isosorbide Dinit [Isordil*] 20 mg PO TID 08/22/23 Sofosbuvir/Velpatasvir [Epclusa 400 mg-100 mg Tablet] 1 each PO DAILY 08/22/23 Atorvastatin Calcium [Lipitor] 40 mg PO BEDTIME 10/13/23 Calcium Acetate [Phoslo] 2 cap PO TIDWM 11/28/23 Dapagliflozin Propanediol [Farxiga] 10 mg PO DAILY 11/28/23 Folic Acid 1 mg PO DAILY 11/28/23 Torsemide [Demadex*] 20 mg PO DAILY 11/28/23 carvediloL [Coreg*] 12.5 mg PO BID 11/28/23 Benzonatate [Tessalon Perle*] 100 mg PO TID PRN #20 cap 12/02/23 Hydralazine [Apresoline*] 25 mg PO TID #90 tab 12/02/23 Allopurinol 300 mg PO DAILY 30 Days #30 tab 12/07/23 Apixaban [Eliquis] 2.5 mg PO BID 30 Days #60 tab 12/07/23 Colchicine 0.6 mg PO BID 14 Days #28 cap 12/07/23 Vitamin D [Drisdol*] 50,000 unit PO EVERY 7TH DAY 30 Days #4 cap 12/07/23 predniSONE [Prednisone*] 20 mg PO DAILY 14 Days #14 tab 12/07/23 - Past Medical/Surgical History Diabetic: No -: HTN -: 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 Rossi/ Dr. Cabral) -: CAD -: Mural thrombus-left ventricle-resolved, on Eliquis -: CVA/ TIA -: Hep C--rec'd treatment 08/2023 -: Cardiac stent placement July 2019 -: removal of L hand 5th digit -: Cardiac catheterization 08/2023 Psychosocial/ Personal History: Patient currently lives at home with his and is on disability due to heart condition. - Family History Father -: Cancer, Liver disease Mother -: GI disease, Other (see notes) Notes: NA - Social History Smoking Status: Never smoker Alcohol use: Yes CD- Drugs: Yes Caffeine use: Yes Place of Residence: Home Review of Systems 10-point ROS is otherwise unremarkable Gastrointestinal: Nausea, Vomiting, Abdominal Pain Physical Examination - Physical Exam General: Alert, In no apparent distress, Oriented x3 HEENT: Atraumatic, PERRLA, EOMI Neck: Supple, 2+ carotid pulse no bruit, No LAD Respiratory: Clear to auscultation bilaterally, Normal air movement Cardiovascular: Regular rate/rhythm, Normal S1 S2 Gastrointestinal: Normal bowel sounds, Tenderness (Moderate epigastric tenderness), Guarding Musculoskeletal: No tenderness Integumentary: No rashes Neurological: Normal speech, Normal strength at 5/5 x4 extr, Normal tone, Normal affect - Studies Laboratory Data (last 24 hrs) 01/26/24 01/26/24 01/26/24 13:52 13:52 13:52 WBC 6.90 Hgb 12.4 L Hct 38.7 L Plt Count 266 PT 12.3 INR 1.12 Sodium 134 L Potassium 4.2 BUN 34 H Creatinine 2.14 H Glucose 90 Magnesium 2.3 Total Bilirubin 1.4 H AST 28 ALT 16 Alkaline Phosphatase 162 H Lipase 899 H Assessment and Plan - Plan Assessment: Acute alcoholic pancreatitis NSTEMI h/o CAD s/p stent (2018) chronic systolic CHF (EF <20% 07/2023 @ [facility]) h/o paroxysmal afib; Mural thrombus, on eliquis CKD 3/4 Essential hypertension Plan: Acute alcoholic pancreatitis N.p.o., IVF-monitor closely for volume status given history of systolic CHF on diuretics As needed pain medications and antiemetics Daily CMP, lipase Counseled extensively on need for alcohol cessation NSTEMI h/o CAD s/p stent (2018) chronic systolic CHF (EF <20% 07/2023 @ [facility]) h/o paroxysmal afib; Mural thrombus, on eliquis Chronically elevated troponin Monitor telemetry, trend troponins Cardiology consultation in place Eliquis continued CKD 3/4 Renal function similar if not better to previous Monitor chemistry daily Consider renal consult if function is worsening Essential hypertension Continue home medications DVT PPX: Continue Eliquis Code status: Full Discharge Plan: Home Plan to discharge in: Greater than 2 days - Advance Directives Does patient have a Living Will: No Does patient have a Durable POA for Healthcare: No - Code Status/Comfort Care Code Status Assessed: Yes (Full code) Time Spent Managing Pts Care (In Minutes): 70
[2024-01-26] MEDS ORDERED: HYDRALAZINE HCL 20 MG/ML VIAL IV PRN (18:09)
[2024-01-26] MEDS ORDERED: ONDANSETRON 4 MG/2 ML VIAL IV PRN (18:09)
[2024-01-26 18:11] VITALS: BMI 25.0
[2024-01-26] MEDS: NA CHLORIDE 0.9% 1,000 ML IV SCH (18:51)
[2024-01-26] MEDS: HYDROMORPHONE HCL 1 MG/ML INJ IV PRN (18:53)
[2024-01-26] MEDS: ISOSORBIDE DINIT 20 MG TAB PO SCH (20:56)
[2024-01-26] MEDS: APIXABAN 2.5 MG TABLET PO SCH (20:56)
[2024-01-26] MEDS: carvediloL 12.5 MG TAB PO SCH (20:56)
[2024-01-26] MEDS: HYDRALAZINE HCL 25 MG TABLET PO SCH (20:56)
[2024-01-27 06:56] LABS: Absolute Eosinophils 0.3 K/uL (0-0.5); Absolute Lymphocytes (CBC) 0.7 K/uL (0.7-4.9); Absolute Monocytes 0.7 K/uL (0.1-1.3); Absolute Neutrophil 3.5 K/uL (1.8-8.0); Basophils % 0.6 % (0-1.3); Eosinophils % 6.1 % (0-4.4); Hematocrit 32.4 % (39.6-49.0); Hemoglobin 10.7 g/dL (13.6-17.9); MCH 27.8 pg (27.0-35.0); MCV 84.2 fL (80-100); MPV 8.4 fL (7.6-11.3); Monocytes % 13.7 % (3.3-12.3); Neutrophils % 66.6 % (41.7-73.7); Nucleated Red Blood Cells % 0.2 % (0-0); Platelets 198 thou/uL (152-406); RBC Red Blood Cell Count 3.85 M/uL (4.33-5.43); Red Cell Distribution Width 18.8 % (12.1-15.2)
[2024-01-27 07:26] LABS: AST/SGOT 23 U/L (15-37); Albumin 2.6 g/dL (3.4-5.0); Albumin/Globulin Ratio 0.6 (1.1-1.8); Alkaline Phosphatase 127 U/L (45-117); Anion Gap 9.2 mEq/L (5.0-15.0); BUN Blood Urea Nitrogen 34 mg/dL (7-18); Bicarbonate 19 mEq/L (21-32); Globulin 4.4 g/dL (2.3-3.5); Glomerular Filtration Rate 39 ml/min (=/>90); Glucose Level 70 mg/dL (74-106); Lipase 429 U/L (13-75); Potassium 4.2 mEq/L (3.5-5.1); Sodium Level 138 mEq/L (136-145)
[2024-01-27 07:31] LABS: ALT/SGPT < 14 U/L (16-61); Troponin High Sensitivity 818.1 pg/mL (<58.9)
[2024-01-27] MEDS: PANTOPRAZOLE 40MG TABLET PO SCH (07:59)
[2024-01-27] MEDS: ASPIRIN EC 81 MG TAB PO SCH (08:04)
[2024-01-27] MEDS: AMIODARONE HCL 200 MG TAB PO SCH (08:04)
--- NOTE | 2024-01-27 10:55 | P.CNS ---
Date of Consult: 01/27/24 Chief Complaint: Acute pancreatitis History of Present Illness: Patient with PMH of HTN, HLD, Systolic heart failure, presented with abdominal pain, nausea, found to be in acute pancreatitis, report some chest discomfort after vomiting but no chest pain, no palpitations, no syncope. no SOB. Allergies Penicillins Allergy (Verified 10/27/22 21:16) Hives/Rash Home Medications: Pantoprazole [Protonix Tab*] 40 mg PO DAILY #30 tab 09/06/21 Aspirin [Aspirin EC] 81 mg PO DAILY #30 tab 10/29/22 Amiodarone HCl [Cordarone*] 200 mg PO DAILY 08/22/23 Ferrous Sulfate 325 mg PO DAILY 08/22/23 Isosorbide Dinit [Isordil*] 20 mg PO TID 08/22/23 Atorvastatin Calcium [Lipitor] 40 mg PO BEDTIME 10/13/23 Calcium Acetate [Phoslo] 2 cap PO TIDWM 11/28/23 Dapagliflozin Propanediol [Farxiga] 10 mg PO DAILY 11/28/23 Folic Acid 1 mg PO DAILY 11/28/23 Torsemide [Demadex*] 20 mg PO DAILY 11/28/23 carvediloL [Coreg*] 12.5 mg PO BID 11/28/23 Hydralazine [Apresoline*] 25 mg PO TID #90 tab 12/02/23 Allopurinol 300 mg PO DAILY 30 Days #30 tab 12/07/23 Apixaban [Eliquis] 2.5 mg PO BID 30 Days #60 tab 12/07/23 Vitamin D [Drisdol*] 50,000 unit PO EVERY 7TH DAY 30 Days #4 cap 12/07/23 predniSONE [Prednisone*] 20 mg PO DAILY 14 Days #14 tab 12/07/23 - Past Medical/Surgical History Diabetic: No -: HTN -: 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 Rossi/ Dr. Cabral) -: CAD -: Mural thrombus-left ventricle-resolved, on Eliquis -: CVA/ TIA -: Hep C--rec'd treatment 08/2023 -: Cardiac stent placement July 2019 -: removal of L hand 5th digit -: Cardiac catheterization 08/2023 Psychosocial/ Personal History: Patient currently lives at home with his and is on disability due to heart condition. - Family History Father Medical History: Cancer, Liver disease Mother Medical History: GI disease, Other (see notes) Notes: NA - Social History Smoking Status: Unknown if ever smoked Alcohol use: Yes CD- Drugs: Yes Caffeine use: Yes Place of Residence: Home Review of Systems 10-point ROS is otherwise unremarkable Physical Examination Temp Pulse Resp BP Pulse Ox 96.7 F L 96 H 18 155/71 H 98 01/27/24 08:00 01/27/24 08:03 01/27/24 08:00 01/27/24 08:03 01/27/24 08:00 General: Alert, In no apparent distress HEENT: Atraumatic, PERRLA, Mucous membr. moist/pink, EOMI, Sclerae nonicteric Neck: Supple, 2+ carotid pulse no bruit, No LAD, Without JVD or thyroid abnormality Respiratory: Clear to auscultation bilaterally, Normal air movement Cardiovascular: Regular rate/rhythm, Normal S1 S2 Gastrointestinal: Normal bowel sounds, No tenderness Musculoskeletal: No tenderness Integumentary: No rashes Neurological: Normal gait, Normal speech, Normal tone, Normal affect Lymphatics: No axilla or inguinal lymphadenopathy Laboratory Data (last 24 hrs) 01/26/24 01/26/24 01/26/24 13:52 13:52 13:52 WBC 6.90 Hgb 12.4 L Hct 38.7 L Plt Count 266 PT 12.3 INR 1.12 Sodium 134 L Potassium 4.2 BUN 34 H Creatinine 2.14 H Glucose 90 Magnesium 2.3 Total Bilirubin 1.4 H AST 28 ALT 16 Alkaline Phosphatase 162 H Lipase 899 H - Problems (1) NSTEMI (non-ST elevated myocardial infarction) Current Visit: No Status: Acute Plan: Patient denies having chest pain, looking at his troponin trend from prior admissions shows that has been always high, so most likely chronic troponin elevation secondary to repeated bouts of pancreatitis. patient had a stress test last year that was negative for ischemia. no further cardiac work up is needed at this point. (2) HTN (hypertension) Current Visit: No Status: Chronic Plan: continue Coreg and Isordil Qualifiers: Hypertension type: primary hypertension Qualified Code(s): I10 - Essential (primary) hypertension (3) Atrial fibrillation Current Visit: Yes Status: Acute Plan: continue coreg continue amiodarone continue eliquis (4) Chronic systolic heart failure Current Visit: No Status: Chronic Plan: looks euvolemic on exam continue coreg, isordil.
[2024-01-27] MEDS: allopurinoL 300 MG TAB PO SCH (12:00)
[2024-01-27] MEDS: allopurinoL 100 MG TAB PO SCH (13:16)
--- NOTE | 2024-01-27 17:37 | P.PN ---
Date of Service: 01/27/24 Subjective Awake and feeling better this AM advanced diet to Clear Liquid No new complaints Discussed alcohol cessation ROS 10 point ROS as noted above, otherwise negative Physical Exam General: Alert and oriented x 3, NAD, conversing well HEENT: Atraumatic, PERRLA, EOMI Neck: Supple, 2+ carotid pulse no bruit, No LAD Respiratory: Clear to auscultation bilaterally, Normal air movement Cardiovascular: Regular rate/rhythm, Normal S1 S2 present, no murmur noted Gastrointestinal: Normal bowel sounds, Tenderness (Moderate epigastric tenderness), nondistended Musculoskeletal: No tenderness, 2+ peripheral pulses Integumentary: No rashes Neurological: Normal speech, Normal strength at 5/5 x4 extr, Normal tone, Normal affect Vitals Reviewed Assessment: Acute alcoholic pancreatitis NSTEMI h/o CAD s/p stent (2018) chronic systolic CHF (EF <20% 07/2023 @ [facility]) h/o paroxysmal afib; Mural thrombus, on eliquis CKD 3/4 Essential hypertension Plan: Acute alcoholic pancreatitis CLD, stopped IVF history of systolic CHF on diuretics As needed pain medications and antiemetics Daily CMP, lipase down to 429 from 899 Counseled extensively on need for alcohol cessation NSTEMI h/o CAD s/p stent (2018) chronic systolic CHF (EF <20% 07/2023 @ [facility]) h/o paroxysmal afib; Mural thrombus, on eliquis Chronically elevated troponin Monitor telemetry, trend troponins Cardiology consultation in place Eliquis continued CKD 3/4 Renal function improved with IVF Monitor chemistry daily Essential hypertension Continue home medications DVT PPX: Continue Eliquis Code status: Full LOS 2 days
[2024-01-28 06:39] LABS: Absolute Eosinophils 0.3 K/uL (0-0.5); Absolute Lymphocytes (CBC) 0.7 K/uL (0.7-4.9); Absolute Monocytes 0.6 K/uL (0.1-1.3); Absolute Neutrophil 2.8 K/uL (1.8-8.0); Basophils % 0.6 % (0-1.3); Eosinophils % 7.2 % (0-4.4); Hematocrit 30.8 % (39.6-49.0); Hemoglobin 10.4 g/dL (13.6-17.9); MCH 28.2 pg (27.0-35.0); MCHC 33.7 g/dL (32.0-36.0); MCV 83.6 fL (80-100); MPV 8.4 fL (7.6-11.3); Neutrophils % 64.2 % (41.7-73.7); Nucleated Red Blood Cells % 0.5 % (0-0); Platelets 201 thou/uL (152-406); RBC Red Blood Cell Count 3.68 M/uL (4.33-5.43); Red Cell Distribution Width 18.8 % (12.1-15.2)
[2024-01-28 06:57] LABS: AST/SGOT 18 U/L (15-37); Albumin 2.7 g/dL (3.4-5.0); Albumin/Globulin Ratio 0.7 (1.1-1.8); Alkaline Phosphatase 121 U/L (45-117); Anion Gap 9.7 mEq/L (5.0-15.0); BUN Blood Urea Nitrogen 31 mg/dL (7-18); Bicarbonate 19 mEq/L (21-32); Bilirubin Total 0.8 mg/dL (0.2-1.0); Glomerular Filtration Rate 37 ml/min (=/>90); Glucose Level 104 mg/dL (74-106); Lipase 221 U/L (13-75); Potassium 4.7 mEq/L (3.5-5.1); Protein, Total 6.7 g/dL (6.4-8.2); Sodium Level 135 mEq/L (136-145)
[2024-01-28 07:00] LABS: ALT/SGPT < 14 U/L (16-61)
[2024-01-28] MEDS: FOLIC ACID 1 MG TABLET PO SCH (08:43)
[2024-01-28] MEDS: TORSEMIDE 20 MG TAB PO SCH (08:43)
[2024-01-28] MEDS: predniSONE 20 MG TAB PO SCH (08:44)
[2024-01-28] MEDS: FERROUS SULFATE 325 MG TAB PO SCH (08:44)
[2024-01-28] MEDS: **PT MED**Dapagliflozin Propanediol [Farxiga] 10 MG Tablet) PO SCH (08:44)
[2024-01-28] MEDS ORDERED: allopurinoL 100 MG TAB PO SCH (09:00)
[2024-01-28 12:09] VITALS: BP 133/85; TEMP 98.4
[2024-01-28 13:14] VITALS: O2SAT 97
--- NOTE | 2024-01-28 13:41 | P.DS ---
Admission Date: 01/26/24 Discharge Date: 01/28/24 Disposition: ROUTINE DISCHARGE Discharge Condition: FAIR Reason for Admission: Acute pancreatitis Brief History of Present Illness: Diagnosis Acute alcoholic pancreatitis NSTEMI h/o CAD s/p stent (2019) chronic systolic CHF (EF <20% 07/2023 @ [facility]) h/o paroxysmal afib; Mural thrombus, on eliquis CKD 3/4 Essential hypertension HPI 01/26/24 Natan Paulino is a 63-year-old male with history of chronic systolic congestive heart failure, CAD with previous stent, paroxysmal atrial fibrillation/history of mural thrombus, pancreatitis, gout, CKD 4, hypertension presents emergency department chief complaint of upper abdominal pain, nausea, vomiting. He reports his symptoms began after having an alcoholic beverage which is similar to previous episodes. He was evaluated in the emergency department and his labs are significant for sodium 134 bicarb 19 creatinine 2.14 GFR 34 high- sensitivity troponin 934.2, BNP 14,[address] abdomen pelvis shows acute pancreatitis. Patient with chronically elevated troponin. EKG without STEMI criteria, will need to be admitted for emergent management of acute pancreatitis. Hospital Course: Natan Paulino is a pleasant 63 year old male with a past medical history significant for chronic systolic congestive heart failure, CAD with previous stent, paroxysmal atrial fibrillation/history of mural thrombus, pancreatitis, gout, CKD 4, hypertension who was admitted to the [facility] on 01/26/24 for abdominal pain with nausea vomiting. Natan Paulino presented to the ED with chief complaint of abdominal pain with nausea vomiting. CT abdomen pelvis revealed acute pancreatitis. Alcohol cessation is necessary to avoid necrotic pancreatitis. He is tolerating p.o. diet, nausea vomiting has resolved, abdominal pain has decreased, lipase level has decreased significantly, and ambulating independently. He is hemodynamically stable for discharge. He will need to follow up with his PCP for continued management of pancreatitis. Stay hydrated and advance diet slowly as tolerated. On 01/28/2024, Natan was seen on morning rounds and deemed medically stable for discharge. Natan was discharged with instructions to schedule follow-up appointments with PCP. The patient and family members were given the opportunity to ask questions and reported no further questions. Furthermore, all questions were answered to the best of my ability. A copy of this discharge summary will be sent to the above providers to facilitate continuity of care. Physical Exam General: Alert and oriented x 3, no acute distress, conversing well HEENT: Atraumatic, PERRLA, EOMI Neck: Supple, 2+ carotid pulse no bruit, No LAD Respiratory: Clear to auscultation bilaterally, Normal air movement Cardiovascular: RRR, Normal S1 S2 present, no murmur noted Gastrointestinal: Normal bowel sounds, Tenderness (Moderate epigastric tenderness), nondistended Musculoskeletal: No tenderness, 2+ peripheral pulses Integumentary: No rashes Neurological: Normal speech, Normal strength at 5/5 x4 extr, Normal tone, Normal affect Vital Signs/Physical Exam: Temp Pulse Resp BP Pulse Ox 98.4 F 72 16 133/85 97 01/28/24 12:00 01/28/24 12:00 01/28/24 12:00 01/28/24 12:00 01/28/24 12:00 Laboratory Data at Discharge: WBC 4.30 thou/uL (4.3-10.9) 01/28/24 06:04 Hgb 10.4 g/dL (13.6-17.9) L 01/28/24 06:04 Hct 30.8 % (39.6-49.0) L 01/28/24 06:04 Plt Count 201 thou/uL (152-406) 01/28/24 06:04 PT 12.3 SECONDS (9.5-12.5) 01/26/24 13:52 INR 1.12 01/26/24 13:52 Sodium 135 mEq/L (136-145) L 01/28/24 06:04 Potassium 4.7 mEq/L (3.5-5.1) 01/28/24 06:04 BUN 31 mg/dL (7-18) H 01/28/24 06:04 Creatinine 1.95 mg/dL (0.70-1.30) H 01/28/24 06:04 Glucose 104 mg/dL (74-106) 01/28/24 06:04 Magnesium 2.3 mg/dL (1.6-2.4) 01/26/24 13:52 Total Bilirubin 0.8 mg/dL (0.2-1.0) 01/28/24 06:04 AST 18 U/L (15-37) 01/28/24 06:04 ALT < 14 U/L (16-61) L 01/28/24 06:04 Alkaline Phosphatase 121 U/L (45-117) H 01/28/24 06:04 Lipase 221 U/L (13-75) H 01/28/24 06:04 Home Medications: Pantoprazole [Protonix Tab*] 40 mg PO DAILY #30 tab 09/06/21 Aspirin [Aspirin EC] 81 mg PO DAILY #30 tab 10/29/22 Amiodarone HCl [Cordarone*] 200 mg PO DAILY 08/22/23 Ferrous Sulfate 325 mg PO DAILY 08/22/23 Isosorbide Dinit [Isordil*] 20 mg PO TID 08/22/23 Atorvastatin Calcium [Lipitor] 40 mg PO BEDTIME 10/13/23 Calcium Acetate [Phoslo] 2 cap PO TIDWM 11/28/23 Dapagliflozin Propanediol [Farxiga] 10 mg PO DAILY 11/28/23 Folic Acid 1 mg PO DAILY 11/28/23 Torsemide [Demadex*] 20 mg PO DAILY 11/28/23 carvediloL [Coreg*] 12.5 mg PO BID 11/28/23 Hydralazine [Apresoline*] 25 mg PO TID #90 tab 12/02/23 Allopurinol 300 mg PO DAILY 30 Days #30 tab 12/07/23 Apixaban [Eliquis] 2.5 mg PO BID 30 Days #60 tab 12/07/23 Vitamin D [Drisdol*] 50,000 unit PO EVERY 7TH DAY 30 Days #4 cap 12/07/23 predniSONE [Prednisone*] 20 mg PO DAILY 14 Days #14 tab 12/07/23 Physician Discharge Instructions: Natan Paulino presented to the ED with chief complaint of abdominal pain with nausea vomiting. CT abdomen pelvis revealed acute pancreatitis. Alcohol cessation is necessary to avoid necrotic pancreatitis. Please follow up with your PCP for continued management of pancreatitis. Stay hydrated and advance diet slowly as tolerated. 1. Please call and schedule a follow-up appointment with your PCP in 3-5 days - Please follow-up with your PCP for medication refills/adjustments 2. Continue heart healthy diet, advance diet slowly as tolerated, continue hydration 3. Alcohol cessation 4. No activity restrictions 5. Return to the ED if symptoms worsen Diet: AHA Activity: Ad pelon Followup: Anton Hayes DO [Primary Care Provider] -
--- NOTE | 2024-01-28 15:12 | EKG ---
Test Date: 2024-01-26 Test Time: 14:14:24 Stage Technician: HIRA MEASUREMENT RESULTS: Intervals: Rate: 86 OR: 228 QRSD: 150 QT: 428 QTc: 512 [place]: P: 85 OR: 228 QRS: -57 T: 85 INTERPRETIVE STATEMENTS: Sinus rhythm with 1st degree AV block Left axis deviation Nonspecific intraventricular block Abnormal ECG Compared to ECG 01/07/2024 11:12:50 First degree AV block now present T-wave abnormality no longer present Electronically Signed On 01-28-24 15:07:11 CDT by Shamar D eGuzman
[2024-01-28] MEDS ORDERED: ATORVASTATIN 40 MG TAB PO SCH (21:00)
== END 2024-01-28 14:59 | disposition home or self-care (01) | DRG 438 ==
LOC: ER 13:00 → ERHOLD 16:09 → 4TH 16:32
PROVIDERS: ADMIT Hospitalist; ATTEND Internal Medicine
DX: K85.20 Alcohol induced acute pancreatitis without necrosis or infection (principal); I21.4 Non-ST elevation (NSTEMI) myocardial infarction; N18.4 Chronic kidney disease, stage 4 (severe); I13.0 Hypertensive heart and chronic kidney disease with heart failure and stage 1 through stage 4 chronic kidney disease, or unspecified chronic kidney disease; I50.22 Chronic systolic (congestive) heart failure; M10.9 Gout, unspecified; I48.0 Paroxysmal atrial fibrillation; M06.9 Rheumatoid arthritis, unspecified; M19.90 Unspecified osteoarthritis, unspecified site; I25.10 Atherosclerotic heart disease of native coronary artery without angina pectoris; I25.2 Old myocardial infarction; Z88.0 Allergy status to penicillin; Z95.5 Presence of coronary angioplasty implant and graft; Z86.73 Personal history of transient ischemic attack (TIA), and cerebral infarction without residual deficits; Z79.82 Long term (current) use of aspirin; Z79.02 Long term (current) use of antithrombotics/antiplatelets; Z79.52 Long term (current) use of systemic steroids; Z79.01 Long term (current) use of anticoagulants; Z79.899 Other long term (current) drug therapy
CPT/HCPCS: 36415; 71045; 74176; 80048; 80053; 80076; 83690; 83735; 83880; 84484; 85025; 85610; 93005; 99285; J1170; J2405; J3010; J7030; J7512

== ENCOUNTER 2024-03-10 20:17 | Observation (INO) | payer OTHER ==
[2024-03-10 20:50] LABS: Absolute Eosinophils 0.4 K/uL (0-0.5); Absolute Lymphocytes (CBC) 1.2 K/uL (0.7-4.9); Absolute Monocytes 0.7 K/uL (0.1-1.3); Basophils % 0.9 % (0-1.3); Eosinophils % 7.9 % (0-4.4); Hematocrit 39.8 % (39.6-49.0); Hemoglobin 12.7 g/dL (13.6-17.9); Lymphocytes % 21.8 % (15.3-44.8); MCH 28.1 pg (27.0-35.0); MCV 88.1 fL (80-100); MPV 8.8 fL (7.6-11.3); Monocytes % 13.8 % (3.3-12.3); Neutrophils % 55.6 % (41.7-73.7); Platelets 286 thou/uL (152-406); RBC Red Blood Cell Count 4.52 M/uL (4.33-5.43); Red Cell Distribution Width 18.9 % (12.1-15.2)
[2024-03-10 20:58] LABS: PT Prothrombin Time 11.8 SECONDS (9.4-12.5); Protime INR 1.06
[2024-03-10 21:08] LABS: Albumin 3.3 g/dL (3.4-5.0); Albumin/Globulin Ratio 0.6 (1.1-1.8); Anion Gap 13.2 mEq/L (5.0-15.0); Bilirubin Direct 0.4 mg/dL (0-0.2); Bilirubin Indirect, Calculated 0.4 mg/dL (0.2-0.8); Bilirubin Total 0.8 mg/dL (0.2-1.0); C-Reactive Protein 13.6 mg/L (<3.00); Globulin 5.4 g/dL (2.3-3.5); Magnesium 2.4 mg/dL (1.6-2.4); Potassium 4.2 mEq/L (3.5-5.1); Protein, Total 8.7 g/dL (6.4-8.2); Uric Acid 7.4 mg/dL (3.5-7.2)
[2024-03-10 21:10] LABS: Troponin High Sensitivity 774.9 pg/mL (<58.9)
[2024-03-10] MEDS ORDERED: ONDANSETRON 4 MG/2 ML VIAL ONE (21:34)
[2024-03-10] MEDS ORDERED: MORPHINE 4 MG/ML SYR ONE (21:34)
[2024-03-10 21:38] LABS: Thyroid Stimulating Hormone 0.858 uIU/mL (0.358-3.740)
[2024-03-10] MEDS ORDERED: ASPIRIN 81 MG CHEWABLE TABLET ONE (21:56)
[2024-03-10] MEDS ORDERED: HEPARIN 5000 UNIT/ML 1 ML VIAL ONE (21:57)
[2024-03-10] MEDS ORDERED: HEPARIN/D5W 25,000 UNIT/500 ML BAG IV ONE (21:57)
--- NOTE | 2024-03-10 21:57 | RAD REPORT ---
EXAM DESCRIPTION: RADChest Single View03/10/2024 9:14 pm CLINICAL HISTORY: CHEST PAIN COMPARISON: Chest Single View dated 01/26/2024; Chest Single View dated 01/07/2024; Chest Single View d ated 12/04/2023; Chest Single View dated 11/27/2023 TECHNIQUE: Portable AP view of the chest. FINDINGS: The lungs are clear. No pneumothorax or effusion. The cardiomediastinal contours are unre markable. IMPRESSION: No acute cardiopulmonary process.
[2024-03-10] MEDS ORDERED: MULTIVITAMINS 10 ML VIAL (INJ) IV ONE (22:02)
[2024-03-10] MEDS ORDERED: THIAMINE 200 MG/2 ML INJ ONE (22:02)
[2024-03-10] MEDS ORDERED: FOLIC ACID 5 MG/ML VIAL ONE (22:02)
[2024-03-10] MEDS ORDERED: NA CHLORIDE 0.9% 1,000 ML ONE (22:03)
--- NOTE | 2024-03-10 22:13 | RAD REPORT ---
EXAM DESCRIPTION: RAD - Shoulder Left 2 View - 03/10/2024 9:14 pm CLINICAL HISTORY: left shoulder pain COMPARISON: Chest Single View dated 01/07/2024; Chest Single View dated 01/26/2024 TECHNIQUE: Internal and external rotation views of the left shoulder were obtained. FINDINGS: There is no fracture or dislocation. AC joint widening and lucency along the distal clavic le, stable. No acute or suspicious findings. IMPRESSION: No acute findings. Stable appearance of the distal clavicle with widening of the AC join t. Findings may relate to remote trauma.
--- NOTE | 2024-03-10 22:18 | RAD REPORT ---
EXAM DESCRIPTION: CT - [id number] - 03/10/2024 9:44 pm CLINICAL HISTORY: DIZZINESS COMPARISON: No comparisons TECHNIQUE: Axial thin cut noncontrast CT images of the head were obtained. Axial thin cut noncontrast CT images of the cervical spine were obtained. Multiplanar reformatted images were generated and reviewed. All CT scans are performed using dose optimization technique as appropriate and may include automated exposure control or mA/KV adjustment according to patient size. FINDINGS: CT HEAD WITHOUT CONTRAST: No acute hemorrhage, hydrocephalus or extra-axial collection is identified.No areas of brain edema or midline shift. The paranasal sinuses and mastoids are clear.The calvarium is intact. CT CERVICAL SPINE WITHOUT CONTRAST: No fracture or subluxation. Moderate degenerative changes, including facet and uncovertebral joint sp urring. This contributes to moderate right neural foraminal narrowing at C6-7 and C7-T1, and moderate narrowing on the left at C5-6. No prevertebral soft tissues swelling is identified. IMPRESSION: No acute traumatic intracranial or cervical spine findings. Multilevel cervical spine degenerative changes as above.
[2024-03-11] MEDS ORDERED: MORPHINE 4 MG/ML SYR ONE (01:18)
--- NOTE | 2024-03-11 01:33 | EDPHYS ---
Physician Documentation [facility] Name: Natan Paulino Age: 63 yrs Sex: Male : 1960 Arrival Date: 03/10/2024 Time: 20:17 Bed 13 Private MD: ED Physician Frandy Sims HPI: 03/10 20:27 This 63 yrs old Black Male presents to ER via Unassigned with complaints of LEFT SIDE sp4 NUMBNESS. 03/11 01:22 63-year-old male with past medical history of chronic systolic heart failure, coronary sp4 artery disease, atrial fibrillation, mural thrombus, pancreatitis, alcohol abuse, gout, CKD stage IV, hypertension presents for generalized weakness left-sided numbness. Patient reports she is on Eliquis. Old record reveals apixaban 2.5 mg p.o. twice daily. Patient complaining of left-sided numbness associated with generalized weakness. On examination emergent stroke exam was conducted without signs of acute CVA on exam. Additionally since patient already on Eliquis , TNKase not indicated. 01:22 Reports drinking half a pint of liquor at home prior to arrival and would like to be sp4 assessed as well for alcoholic pancreatitis.. 01:28 Patient's home medications include pantoprazole, aspirin 81 mg daily, amiodarone 200 mg sp4 p.o. daily, ferrous sulfate 325 mg daily, isosorbide 20 mg p.o. 3 times daily, atorvastatin 40 mg bedtime, calcium acetate 3 times daily, buttocks [employer] 10 mg daily, folic acid 1 mg daily, torsemide 20 mg daily, carvedilol 12.5 mg twice daily, hydralazine 25 mg p.o. 3 times daily, allopurinol 300 mg p.o. daily, apixaban 2.5 mg p.o. twice daily, vitamin D daily, prednisone 20 mg p.o. daily.. Historical: - Allergies: 03/10 20:17 PENICILLINS; vc1 - PMHx: 20:17 CHF; Gout; Hypertension; Myocardial infarction; osteoarthritis; Pancreatitis; vc1 Rheumatoid Arthritis; stroke; TIA; Atrial fibrillation; - PSHx: 20:17 finger; heart stent; Stented artery; vc1 - Immunization history:: Client reports having NOT received the Covid vaccine. - Infectious Disease History:: Denies. - Social history:: Smoking status: Patient denies any tobacco usage or history of. - Family history:: not pertinent. ROS: 03/11 01:22 Constitutional: Negative for fever, chills, and weight loss, generalized weakness sp4 positive for left side arm numbness positive alcohol intoxication positive for chronic abdominal pain. All other systems are negative, Exam: 01:18 ECG was reviewed by the Attending Physician. EGD 2202 sinus rhythm with first-degree sp4 AV block at the rate of 73 with occasional PVCs. Left bundle branch block, negative NE based on Sgarbossa criteria 01:22 Constitutional: This is a well developed, well nourished patient who is awake, alert, sp4 and in no acute distress. 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 Eyes: Pupils equal round and reactive to light, extra-ocular motions intact. Lids and lashes normal. Conjunctiva and sclera are not injected. Cornea within normal limits. Periorbital areas with no swelling, redness, or edema. ENT: Nares patent. No nasal discharge, no septal abnormalities noted. Tympanic membranes are normal and external auditory canals are clear. Oropharynx with no redness, swelling, or masses, exudates, or evidence of obstruction, uvula midline. Mucous membranes moist. Neck: Trachea midline, no thyromegaly or masses palpated, and no cervical lymphadenopathy. Supple, full range of motion without nuchal rigidity, or vertebral point tenderness. Chest/axilla: Normal chest wall appearance and motion. Nontender with no deformity. No lesions are appreciated. Cardiovascular: Regular rate and rhythm with a normal S1 and S2. No gallops, murmurs, or rubs. Normal PMI, no JVD. No pulse deficits. Respiratory: Lungs have equal breath sounds bilaterally, clear to auscultation and percussion. No rales, rhonchi or wheezes noted. No increased work of breathing, no retractions or nasal flaring. Abdomen/GI: Soft, with normal bowel sounds. No distension or tympany. No guarding or rebound. No evidence of tenderness throughout. Back: No spinal tenderness. No costovertebral tenderness. Skin: Warm, dry with normal turgor. Normal color with no rashes, no lesions, and no evidence of cellulitis. MS/ Extremity: Pulses equal, no cyanosis. Neurovascular intact. Full, normal range of motion. Neuro: Awake and alert, GCS 15, oriented to person, place, time, and situation. Cranial nerves II-XII grossly intact. Motor strength 5/5 in all extremities. Sensory grossly intact. Psych: Awake, alert, with orientation to person, place and time. Behavior, mood, and affect are within normal limits Vital Signs: 03/10 20:17 BP 148 / 107; Pulse 84; Resp 16; Temp 98.4; Pulse Ox 100% ; Weight 90.72 kg; Height 6 vc1 ft. 3 in. ; Pain 0/10; 23:07 BP 154 / 101; Pulse 94; Resp 14; Pulse Ox 99% ; [facility] 03/11 00:09 BP 152 / 106; Pulse 82; Resp 14; Pulse Ox 100% ; [facility] 03/10 20:17 Body Mass Index 25.00 (90.72 kg, 190.5 cm) [facility] 03/10 20:17 Pain Scale: Adult vc1 NIH Stroke Scale Scores: 01:18 NIHSS Score: 0 sp4 [place] Coma Score: 01:18 Eye Response: spontaneous(4). Motor Response: obeys commands(6). Verbal Response: sp4 oriented(5). Total: 15. MDM: 00:48 Patient medically screened. sp4 01:28 Differential Diagnosis altered mental status, sepsis, flu, Paresthesias, generalized sp4 weakness, NSTEMI, worsening renal insufficiency. Data reviewed: vital signs, nurses notes, lab test result(s), radiologic studies, CT scan, plain films. Consideration of Admission/Observation Patient was admitted/placed on observation. Escalation of care including admission/observation considered. Management of patient was discussed with the following: Hospitalist: Santana BLOOM . ED course: EXAM DESCRIPTION: RAD - Shoulder Left 2 View - 03/10/2024 9:14 pm CLINICAL HISTORY: left shoulder pain COMPARISON: Chest Single View dated 01/07/2024; Chest Single View dated 01/26/2024 TECHNIQUE: Internal and external rotation views of the left shoulder were obtained. FINDINGS: There is no fracture or dislocation. AC joint widening and lucency along the distal clavicle, stable. No acute or suspicious findings. IMPRESSION: No acute findings. Stable appearance of the distal clavicle with widening of the AC joint. Findings may relate to remote trauma.. ED course: CLINICAL HISTORY: DIZZINESS COMPARISON: No comparisons TECHNIQUE: Axial thin cut noncontrast CT images of the head were obtained. Axial thin cut noncontrast CT images of the cervical spine were obtained. Multiplanar reformatted images were generated and reviewed. All CT scans are performed using dose optimization technique as appropriate and may include automated exposure control or mA/KV adjustment according to patient size. FINDINGS: CT HEAD WITHOUT CONTRAST: No acute hemorrhage, hydrocephalus or extra-axial collection is identified.No areas of brain edema or midline shift. The paranasal sinuses and mastoids are clear. The calvarium is intact. CT CERVICAL SPINE WITHOUT CONTRAST: No fracture or subluxation. Moderate degenerative changes, including facet and uncovertebral joint spurring. This contributes to moderate right neural foraminal narrowing at C6-7 and C7-T1, and moderate narrowing on the left at C5-6. No prevertebral soft tissues swelling is identified. IMPRESSION: No acute traumatic intracranial or cervical spine findings. Multilevel cervical spine degenerative changes as above. ED course: Report Status: Signed EXAM DESCRIPTION: RADChest Single View03/10/2024 9:14 pm CLINICAL HISTORY: CHEST PAIN COMPARISON: Chest Single View dated 01/26/2024; Chest Single View dated 01/07/2024; Chest Single View dated 12/04/2023; Chest Single View dated 11/27/2023 TECHNIQUE: Portable AP view of the chest. FINDINGS: The lungs are clear. No pneumothorax or effusion. The cardiomediastinal contours are unremarkable. IMPRESSION: No acute cardiopulmonary process.. 01:31 ED course: At this time patient warrants admission secondary to elevated troponin, sp4 elevated BNP, generalized weakness, mild elevation of lipase.. 03/10 20:27 Order name: Alcohol Level; Complete Time: : sp4 03/10 20:28 Order name: Basic Metabolic Panel; Complete Time: : sp4 03/10 20:28 Order name: CBC with Diff; Complete Time: : sp4 03/10 20:28 Order name: LFT's; Complete Time: : sp4 03/10 20:28 Order name: Magnesium; Complete Time: : sp4 03/10 20:28 Order name: NT PRO-BNP; Complete Time: 01:13 sp4 03/10 20:28 Order name: PT-INR; Complete Time: 01:13 sp4 03/10 20:28 Order name: Troponin HS; Complete Time: 01: 4 03/10 20:28 Order name: Lipase; Complete Time: 01:13 sp4 03/10 20:29 Order name: CRP; Complete Time: 01:13 sp4 03/10 20:29 Order name: Uric Acid; Complete Time: 01: sp4 03/10 21:22 Order name: Thyroid Stimulating Hormone; Complete Time: 01:13 EDMS 03/11 01:33 Order name: Ptt, Activated: 0300; Complete Time: 06:20 [facility] 03/11 02:15 Order name: Urinalysis w/ reflexes EDOH 03/11 02:15 Order name: CBC with Automated Diff [facility] 03/11 02:15 Order name: CBC with Automated Diff [facility]OH 03/11 02:15 Order name: Comprehensive Metabolic Panel [facility] 03/11 02:15 Order name: Comprehensive Metabolic Panel [facility] 03/11 02:15 Order name: Troponin High Sensitivity [facility] 03/11 02:15 Order name: Troponin High Sensitivity [facility] 03/11 02:15 Order name: Troponin High Sensitivity [facility] 03/11 02:15 Order name: Troponin High Sensitivity [facility] 03/11 06:07 Order name: Ptt, Activated [facility] 03/11 06:50 Order name: PTT, Activated Partial Thromb [facility] 03/11 08:45 Order name: Phosphorus kc6 03/11 09:05 Order name: Phosphorus [facility] 03/11 14:07 Order name: LDL, Direct [facility] 03/10 20:28 Order name: XRAY Chest (1 view); Complete Time: 01:13 4 03/10 20:28 Order name: CT Head C Spine; Complete Time: 01:13 [facility] 03/10 20:28 Order name: Shoulder Left (2 View) XRAY; Complete Time: 01:13 [facility] 03/11 02:15 Order name: CONS Physician Consult [facility] 03/11 02:15 Order name: Physical Therapy Consult [facility] 03/10 20:28 Order name: Cardiac monitoring; Complete Time: 20:52 4 03/10 20:28 Order name: EKG - Nurse/Tech; Complete Time: 22:03 [facility] 03/10 20:28 Order name: IV Saline Lock; Complete Time: 20:52 [facility] 03/10 20:28 Order name: Labs collected and sent; Complete Time: 20: [facility] 03/10 20:28 Order name: O2 Per Protocol; Complete Time: 20:52 [facility] 03/10 20:28 Order name: O2 Sat Monitoring; Complete Time: 20:52 [facility] MDM: 03/10 20:27 Order name: Alcohol Level; Complete Time: : [facility] 03/10 20:28 Order name: Basic Metabolic Panel; Complete Time: : 03/10 20:28 Order name: CBC with Diff; Complete Time: : [facility] 03/10 20:28 Order name: LFT's; Complete Time: : [facility] 03/10 20:28 Order name: Magnesium; Complete Time: : 03/10 20:28 Order name: NT PRO-BNP; Complete Time: 01: 03/10 20:28 Order name: PT-INR; Complete Time: : 03/10 20:28 Order name: Troponin HS; Complete Time: :03/10 20:28 Order name: Lipase; Complete Time: : [facility] 03/10 20:29 Order name: CRP; Complete Time: : [facility] 03/10 20:29 Order name: Uric Acid; Complete Time: : 03/10 21:22 Order name: Thyroid Stimulating Hormone; Complete Time: 01: EDOH 03/11 01:33 Order name: Ptt, Activated: 0300; Complete Time: 06:20 [facility] 03/11 02:15 Order name: Urinalysis w/ reflexes EDMS 03/11 02:15 Order name: CBC with Automated Diff [facility]MS 03/11 02:15 Order name: CBC with Automated Diff [facility]MS 03/11 02:15 Order name: Comprehensive Metabolic Panel [facility] 03/11 02:15 Order name: Comprehensive Metabolic Panel [facility] 03/11 02:15 Order name: Troponin High Sensitivity [facility] 03/11 02:15 Order name: Troponin High Sensitivity [facility] 03/11 02:15 Order name: Troponin High Sensitivity [facility] 03/11 02:15 Order name: Troponin High Sensitivity [facility]MS 03/11 06:07 Order name: Ptt, Activated jm12 03/11 06:50 Order name: PTT, Activated Partial Thromb [facility]MS 03/11 08:45 Order name: Phosphorus kc6 03/11 09:05 Order name: Phosphorus [facility]OH 03/11 14:07 Order name: LDL, Direct EDOH 03/10 20:28 Order name: XRAY Chest (1 view); Complete Time: 01:13 sp4 03/10 20:28 Order name: CT Head C Spine; Complete Time: 01:13 sp4 03/10 20:28 Order name: Shoulder Left (2 View) XRAY; Complete Time: 01:13 sp4 03/11 02:15 Order name: CONS Physician Consult [facility] 03/11 02:15 Order name: Physical Therapy Consult [facility] 03/10 20:28 Order name: Cardiac monitoring; Complete Time: 20:52 4 03/10 20:28 Order name: EKG - Nurse/Tech; Complete Time: 22:03 4 03/10 20:28 Order name: IV Saline Lock; Complete Time: 20:52 [facility] 03/10 20:28 Order name: Labs collected and sent; Complete Time: 20:52 4 03/10 20:28 Order name: O2 Per Protocol; Complete Time: 20:52 4 03/10 20:28 Order name: O2 Sat Monitoring; Complete Time: 20:52 sp4 EC:18 Rate is 73 beats/min. Rhythm is regular, Sinus Rhythm with Occasional PVCs. QRS [place] is sp4 Normal. [place] interval is prolonged. QRS interval is prolonged. QT interval is normal. No Q waves. No ST changes noted. Clinical impression: No evidence of ischemia. Interpreted by me. Reviewed by me. Administered Medications: 03/10 21:39 Drug: morphine IVP or IV 4 mg IVP once over 4 mins Route: IVP; Infused Over: 4 mins; vc1 Site: right antecubital; 03/11 05:24 Follow up: Response: No adverse reaction; Marked relief of symptoms; Pain is decreased 03/10 21:39 Drug: Ondansetron IVP 4 mg IVP once; over 2 minutes Route: IVP; Site: right antecubital;vc1 03/11 05:24 Follow up: Response: No adverse reaction; Marked relief of symptoms [facility] 03/10 23:04 Drug: Heparin (NE Drip) 12 units/kg/[place] - ([place] [address] units, D5W IV 500 ml) IV at jm12 calculated rate Per protocol; Max initial rate 1000 units/hr {Co-Signature: rosmery (Susan Alcantara RN).} Route: IV; Rate: calculated rate; Site: left antecubital; 03/11 05:25 Follow up: Response: No adverse reaction; IV Status: Infusion continued upon admission; 7 IV Intake: 300ml 03/10 23:05 Drug: Aspirin PO Chewable Tablet 324 mg PO once; 81 mg tablets x 4 Route: PO; jm12 03/11 05:24 Follow up: Response: No adverse reaction jw7 03/10 23:05 Drug: Heparin (NE-Bolus No thrombolytic) - HEParin IVP 60 units/kg IVP once; Max 5000 jm12 units {Co-Signature: rosmery (Susan Alcantara RN).} Route: IVP; Site: left antecubital; 03/11 05:24 Follow up: Response: No adverse reaction [facility] 00:14 Drug: Banana Bag - (Multivitamin IV 1 amp, NS 0.9% IV 1000 ml, Thiamine IV 100 mg, jm12 foLIC Acid IVPB 1 mg) IV at calculated rate once Route: IV; Rate: calculated rate; Site: right antecubital; 01:15 Follow up: IV Status: IV converted to saline lock; IV Intake: 1000ml [facility] 01:20 Drug: morphine IVP or IV 4 mg IVP once over 4 mins Route: IVP; Infused Over: 4 mins; jm12 Site: right antecubital; 05:24 Follow up: Response: No adverse reaction; Marked relief of symptoms jw7 Disposition Summary: 03/11/24 01:33 Hospitalization Ordered Notes: Hospitalization Status: Inpatient Admission sp4 Provider: Julio Dillon spTegan Condition: Stable sp4 Problem: new sp4 Symptoms: have improved sp4 Bed/Room Type: Standard sp4 Location: [facility] HOLD(03/11/24 02:16) cg Room Assignment: ERHOLD-(03/11/24 02:16) cg Diagnosis - Acute on chronic renal failure, elevated troponin, acute on chronic congestive sp4 heart failure, systolic heart failure, Forms: - Medication Reconciliation Form sp4 - SBAR form sp4 - Leadership Thank You Letter sp4 NIH Stroke Scale - NIH Stroke Score Date: 03/11/2024 Time: 01:18 Total Score = 0 10. Dysarthria (speech clarity - read or repeat words) - 0(Normal) 11. Extinction and Inattention (visual/tactile/auditory/spatial/personal) - 0(No abnormality) 1a. Level of Consciousness (LOC) - 0(Alert) 1b. Level of Consciousness (LOC) (Month \T\ Age) - 0(Both) 1c. LOC Commands (Open \T\ Closes Eyes/Spanish Literature Professor) - 0(Both) 2. Best Gaze (Lateral Gaze Paresis) - 0(Normal) 3. Visual Field Loss - 0(No visual loss) 4. Facial Palsy - 0(Normal) 5a. Left Arm: Motor (10-second hold) - 0(No drift) 5b. Right Arm: Motor (10-second hold) - 0(No drift) 6a. Left Leg: Motor (5-second hold - always test supine) - 0(No drift) 6b. Right Leg: Motor (5-second hold - always test supine) - 0(No drift) 7. Limb Ataxia (finger/nose \T\ heel/[place] - test with eyes open) - 0(Absent) 8. Sensory Loss (pinprick arms/legs/face) - 0(Normal) 9. Best Language: Aphasia (description/naming/reading) - 0(No aphasia) Initials: sp4 Signatures: Dispatcher [employer] EDMS Sujatha Norton, RADHIKA GARRIDO cg Fay Frank RN RN vc1 Frandy Sims MD MD sp4 Janice Mendoza RN RN jm12 Silvana Norton RN jw7 Susan Alcantara RN me1 Corrections: (The following items were deleted from the chart) 03/10 20:28 20:28 BASIC METABOLIC PANEL+C.LAB.BRZ ordered. EDMS EDMS 20:28 20:28 CBC+H.LAB.BRZ ordered. EDMS EDMS 20:28 20:28 HEPATIC FUNCTION+C.LAB.BRZ ordered. EDMS EDMS 20:28 20:28 MAGNESIUM+C.LAB.BRZ ordered. EDMS EDMS 20:28 20:28 PROBNP+C.LAB.BRZ ordered. EDMS EDMS 20:28 20:28 PROTIME (+INR)+COAG.LAB.BRZ ordered. EDMS EDMS 20:28 20:28 Troponin High Sensitivity+C.LAB.BRZ ordered. EDMS EDMS 20:28 20:28 Chest Single View+RAD.RAD.BRZ ordered. EDMS EDMS 20:29 20:28 LIPASE+C.LAB.BRZ ordered. EDMS EDMS 20:29 20:29 Head C Spine MPR Wo Con+CT.RAD.BRZ ordered. EDMS EDMS 21: 20:29 PROBNP+C.LAB.BRZ ordered. EDMS EDMS 21:21 20:40 THYROID STIMULAT HORMONE+C.LAB.BRZ ordered. EDMS EDMS 21:43 20:30 Neck Angio+CT.RAD.BRZ ordered. EDMS EDMS 03/11 01:33 01:33 PTT, ACTIVATED+COAG.LAB.BRZ ordered. EDMS EDMS 02:16 01:33 Telemetry/MedSurg (Inpatient) sp4 cg 02:16 01:33 sp4 cg
--- NOTE | 2024-03-11 01:33 | ER ---
Nurse's Notes [facility] Name: Natan Paulino Age: 63 yrs Sex: Male : 1960 Arrival Date: 03/10/2024 Time: 20:17 Bed 13 Private MD: Diagnosis: Acute on chronic renal failure, elevated troponin, acute on chronic congestive heart failure, systolic heart failure, Presentation: 03/10 20:17 Chief complaint: Patient states: left arm numbness that started 2 hours TEST BAKER. vc1 Coronavirus screen: Client denies travel out of the [place] in the last 14 days. At this time, the client does not indicate any symptoms associated with coronavirus-19. Ebola Screen: Patient negative for fever greater than or equal to 101.5 degrees Fahrenheit, and additional compatible Ebola Virus Disease symptoms Patient denies exposure to infectious person. Patient denies travel to an Ebola-affected area in the 21 days before illness onset. No symptoms or risks identified at this time. Initial Sepsis Screen: Does the patient meet any 2 criteria? No. Patient's initial sepsis screen is negative. Does the patient have a suspected source of infection? No. Patient's initial sepsis screen is negative. Risk Assessment: Do you want to hurt yourself or someone else? Patient reports no desire to harm self or others. Note drank a pint of liquor TEST BAKER. Onset of symptoms was March 10, 2024 at 18:20. Care prior to arrival: None. Activity prior to arrival: None. Mechanism of Injury: No Mechanism of Injury. 20:17 Method Of Arrival: Ambulatory vc1 20:17 Acuity: NINO 3 vc1 Triage Assessment: 20:17 General: Appears in no apparent distress. comfortable, slender, well groomed, Behavior vc1 is cooperative, anxious. Pain: Denies pain. EENT: No deficits noted. No signs and/or symptoms were reported regarding the EENT system. Neuro: Level of Consciousness is awake, alert, obeys commands, Oriented to person, place, time, situation, Appropriate for age Generation Engineer are weak on left Gait is shuffling, normal for patient. Speech is normal, Facial symmetry appears normal, Pupils are PERRLA, Reports numbness to left arm. Respiratory: Airway is patent Respiratory effort is even, unlabored, Respiratory pattern is regular, symmetrical. Derm: Skin is intact, is healthy with good turgor, Skin is dry, Skin is normal, Skin temperature is warm. Historical: - Allergies: 20:17 PENICILLINS; vc1 - PMHx: 20:17 CHF; Gout; Hypertension; Myocardial infarction; osteoarthritis; Pancreatitis; vc1 Rheumatoid Arthritis; stroke; TIA; Atrial fibrillation; - PSHx: 20:17 finger; heart stent; Stented artery; vc1 - Immunization history:: Client reports having NOT received the Covid vaccine. - Infectious Disease History:: Denies. - Social history:: Smoking status: Patient denies any tobacco usage or history of. - Family history:: not pertinent. Screenin:17 [facility] ED Fall Risk Assessment (Adult) History of falling in the last 3 months, vc1 including since admission No falls in past 3 months (0 pts) Confusion or Disorientation No (0 pts) Intoxicated or Sedated Yes (3 pts) Impaired Gait Yes (1 pt) Mobility Assist Device Used No (0 pt) Altered Elimination No (0 pt) Score/Fall Risk Level 3 or more points = High Risk Oriented to surroundings, Maintained a safe environment, Educated pt \T\ family on fall prevention, incl call for assistance when getting out of bed. Abuse screen: Denies threats or abuse. Nutritional screening: No deficits noted. Tuberculosis screening: No symptoms or risk factors identified. Assessment: 20:36 Pain: Denies pain. Neuro: Reports numbness in left arm. Cardiovascular: No deficits [facility] noted. Respiratory: No deficits noted. GI: No deficits noted. : No deficits noted. EENT: No deficits noted. Derm: No deficits noted. Musculoskeletal: Reports pt states baseline weakness. 21:10 General: MD notified of troponin of [facility]. [facility] 03/11 13:20 Reassessment: Rounded on patient at this time. Pt updated on plan of care and all cm10 questions answered. Pt states that at this time he does not have any needs. Vital Signs: 03/10 20:17 BP 148 / 107; Pulse 84; Resp 16; Temp 98.4; Pulse Ox 100% ; Weight 90.72 kg; Height 6 vc1 ft. 3 in. ; Pain 0/10; 23:07 BP 154 / 101; Pulse 94; Resp 14; Pulse Ox 99% ; 12 03/11 00:09 BP 152 / 106; Pulse 82; Resp 14; Pulse Ox 100% ; [facility] 03/10 20:17 Body Mass Index 25.00 (90.72 kg, 190.5 cm) vc1 03/10 20:17 Pain Scale: Adult vc1 [place] Coma Score: 01:18 Eye Response: spontaneous(4). Motor Response: obeys commands(6). Verbal Response: sp4 oriented(5). Total: 15. NIH Stroke Scale Scores: 01:18 NIHSS Score: 0 sp4 ED Course: 03/10 20:17 Arm band placed on right wrist. vc1 20:17 Patient has correct armband on for positive identification. Bed in low position. Call vc1 light in reach. Pulse ox on. NIBP on. 20:18 Patient arrived in ED. jj6 20:25 Inserted saline lock: 20 gauge in right antecubital area, using aseptic technique. vc1 Blood collected. Flushed with 10 mL NS. 20:27 Frandy Sims MD is Attending Physician. sp4 21:01 Triage completed. vc1 21:16 XRAY Chest (1 view) In Process Unspecified. EDMS 21:16 Shoulder Left (2 View) XRAY In Process Unspecified. EDMS 21:44 CT Head C Spine In Process Unspecified. EDMS 22:04 EKG done, by ED staff. vk 22:14 Inserted saline lock: 22 gauge in left forearm, using aseptic technique. Flushed with ty 10 mL NS. 03/11 01:32 Julio Dillon MD is Hospitalizing Provider. sp4 03:26 Ptt, Activated: [address] [facility] 05:23 Provided Education on: use of call light. [facility] 05:23 No provider procedures requiring assistance completed. Patient admitted, IV remains in jw7 place. 06:21 Ptt, Activated Sent. vk 06:21 Troponin High Sensitivity Sent. vk 06:21 Initial lab(s) drawn, by me, sent to lab. vk Administered Medications: 03/10 21:39 Drug: morphine IVP or IV 4 mg IVP once over 4 mins Route: IVP; Infused Over: 4 mins; vc1 Site: right antecubital; 03/11 05:24 Follow up: Response: No adverse reaction; Marked relief of symptoms; Pain is decreased [facility] 03/10 21:39 Drug: Ondansetron IVP 4 mg IVP once; over 2 minutes Route: IVP; Site: right antecubital;vc1 03/11 05:24 Follow up: Response: No adverse reaction; Marked relief of symptoms jw7 03/10 23:04 Drug: Heparin (VT Drip) 12 units/kg/[place] - ([place] [address] units, D5W IV 500 ml) IV at jm12 calculated rate Per protocol; Max initial rate 1000 units/hr {Co-Signature: rosmery (Susan Alcantara RN).} Route: IV; Rate: calculated rate; Site: left antecubital; 03/11 05:25 Follow up: Response: No adverse reaction; IV Status: Infusion continued upon admission; jw7 IV Intake: 300ml 03/10 23:05 Drug: Aspirin PO Chewable Tablet 324 mg PO once; 81 mg tablets x 4 Route: PO; jm12 03/11 05:24 Follow up: Response: No adverse reaction jw7 03/10 23:05 Drug: Heparin (VT-Bolus No thrombolytic) - HEParin IVP 60 units/kg IVP once; Max 5000 jm12 units {Co-Signature: rosmery (Susan Alcantara RN).} Route: IVP; Site: left antecubital; 03/11 05:24 Follow up: Response: No adverse reaction jw7 00:14 Drug: Banana Bag - (Multivitamin IV 1 amp, NS 0.9% IV 1000 ml, Thiamine IV 100 mg, jm12 foLIC Acid IVPB 1 mg) IV at calculated rate once Route: IV; Rate: calculated rate; Site: right antecubital; 01:15 Follow up: IV Status: IV converted to saline lock; IV Intake: 1000ml 12 01:20 Drug: morphine IVP or IV 4 mg IVP once over 4 mins Route: IVP; Infused Over: 4 mins; jm12 Site: right antecubital; 05:24 Follow up: Response: No adverse reaction; Marked relief of symptoms jw7 Medication: 03/10 21:05 VIS not applicable for this client. vc1 Intake: 03/11 01:15 IV: 1000ml; Total: 1000ml. jm12 05:25 IV: 300ml; Total: 1300ml. jw7 Outcome: 01:33 Decision to Hospitalize by Provider. sp4 05:23 Admitted to ER Hold. Please see [employer] for further documentation. jw7 05:23 Condition: stable 05:23 Instructed on the need for admit, Demonstrated understanding of instructions, 14:11 Patient left the ED. kc6 NIH Stroke Scale - NIH Stroke Score Date: 03/11/2024 Time: 01:18 Total Score = 0 10. Dysarthria (speech clarity - read or repeat words) - 0(Normal) 11. Extinction and Inattention (visual/tactile/auditory/spatial/personal) - 0(No abnormality) 1a. Level of Consciousness (LOC) - 0(Alert) 1b. Level of Consciousness (LOC) (Month \T\ Age) - 0(Both) 1c. LOC Commands (Open \T\ Closes Eyes/Grain Merchandising Manager) - 0(Both) 2. Best Gaze (Lateral Gaze Paresis) - 0(Normal) 3. Visual Field Loss - 0(No visual loss) 4. Facial Palsy - 0(Normal) 5a. Left Arm: Motor (10-second hold) - 0(No drift) 5b. Right Arm: Motor (10-second hold) - 0(No drift) 6a. Left Leg: Motor (5-second hold - always test supine) - 0(No drift) 6b. Right Leg: Motor (5-second hold - always test supine) - 0(No drift) 7. Limb Ataxia (finger/nose \T\ heel/santiago - test with eyes open) - 0(Absent) 8. Sensory Loss (pinprick arms/legs/face) - 0(Normal) 9. Best Language: Aphasia (description/naming/reading) - 0(No aphasia) Initials: sp4 Signatures: Dispatcher [employer] EDGeena Lomelij6 Fay Frakn RN RN vc1 Silvana Norton, RN RN jw7 Sita Carirllo RN RN kc6 Frandy Sims MD MD sp4 Joi Emmanuel, RN RN cm10 Karen Richard Tylor ty Markee, Jessica RN RN jm12 Susan Alcantara RN me1
--- NOTE | 2024-03-11 02:08 | P.HP ---
Certification for Inpatient Patient admitted to: Inpatient With expected LOS: >2 Midnights Practitioner: I am a practitioner with admitting privileges, knowledge of patient current condition, hospital course, and medical plan of care. Services: Services provided to patient in accordance with Admission requirements found in Title 42 Section 412.3 of the Code of Federal Regulations Patient History Date of Service: 03/11/24 Reason for admission: Left side numbness History of Present Illness: 63-year-old male with past medical history of chronic systolic heart failure, coronary artery disease, atrial fibrillation, mural thrombus, pancreatitis, alcohol abuse, gout, CKD stage IV, hypertension presents for generalized weakness and left-sided numbness. Patient started having left-sided numbness associated with generalized weakness which started yesterday and has been progressively getting worse and was brought to ER. Patient denies any chest pain. Denies any shortness of breath. No nausea vomiting or diarrhea. No sick contacts. Patient was assessed in the ER and had a code stroke evaluation. CT was negative for an acute stroke. And patient is on Eliquis so TNK was not indicated. Patient drinks half a pint of liquor at home daily. Patient was assessed in the ER and was admitted for further management possible TIA/CVA. Allergies Penicillins Allergy (Verified 10/27/22 21:16) Hives/Rash Home medications list reviewed: Yes Home Medications: Pantoprazole [Protonix Tab*] 40 mg PO DAILY #30 tab 09/06/21 Aspirin [Aspirin EC] 81 mg PO DAILY #30 tab 10/29/22 Amiodarone HCl [Cordarone*] 200 mg PO DAILY 08/22/23 Ferrous Sulfate 325 mg PO DAILY 08/22/23 Isosorbide Dinit [Isordil*] 20 mg PO TID 08/22/23 Atorvastatin Calcium [Lipitor] 40 mg PO BEDTIME 10/13/23 Calcium Acetate [Phoslo] 2 cap PO TIDWM 11/28/23 Dapagliflozin Propanediol [Farxiga] 10 mg PO DAILY 11/28/23 Folic Acid 1 mg PO DAILY 11/28/23 Torsemide [Demadex*] 20 mg PO DAILY 11/28/23 carvediloL [Coreg*] 12.5 mg PO BID 11/28/23 Hydralazine [Apresoline*] 25 mg PO TID #90 tab 12/02/23 Allopurinol 300 mg PO DAILY 30 Days #30 tab 12/07/23 Apixaban [Eliquis] 2.5 mg PO BID 30 Days #60 tab 12/07/23 Vitamin D [Drisdol*] 50,000 unit PO EVERY 7TH DAY 30 Days #4 cap 12/07/23 predniSONE [Prednisone*] 20 mg PO DAILY 14 Days #14 tab 12/07/23 - Past Medical/Surgical History Diabetic: No Past Medical History: Reviewed- Non-Contributory -: HTN -: 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 Rossi/ Dr. Cabral) -: CAD -: Mural thrombus-left ventricle-resolved, on Eliquis -: CVA/ TIA -: Hep C--rec'd treatment 08/2023 Past Surgical History: Reviewed- Non-Contributory -: Cardiac stent placement July 2019 -: removal of L hand 5th digit -: Cardiac catheterization 08/2023 Psychosocial/ Personal History: Patient currently lives at home with his and is on disability due to heart condition. - Family History Father -: Cancer, Liver disease Mother -: GI disease, Other (see notes) Notes: NA - Social History Smoking Status: Current some day smoker Alcohol use: Yes CD- Drugs: Yes Caffeine use: Yes Review of Systems 10-point ROS is otherwise unremarkable Physical Examination - Vital Signs Temperature: 97.8 F Blood Pressure: 146/72 Pulse: 76 Respirations: 18 Pulse Ox (%): 94 - Physical Exam General: Alert, In no apparent distress, Oriented x3 HEENT: Atraumatic, Normocephalic Neck: Supple Respiratory: Clear to auscultation bilaterally, Normal air movement Cardiovascular: Normal pulses, Regular rate/rhythm Capillary refill: <2 Seconds Gastrointestinal: Soft and benign, W/out hepatosplenomegaly Musculoskeletal: No clubbing Integumentary: No rashes Neurological: Normal speech, Normal strength at 5/5 x4 extr, Cranial nerves 3-12 intact Lymphatics: No axilla or inguinal lymphadenopathy - Studies Laboratory Data (last 24 hrs) 03/10/24 03/10/24 03/10/24 20:30 20:30 20:30 WBC 5.30 Hgb 12.7 L Hct 39.8 Plt Count 286 PT 11.8 INR 1.06 Sodium 138 Potassium 4.2 BUN 31 H Creatinine 2.43 H Glucose 91 Uric Acid 7.4 H Magnesium 2.4 Total Bilirubin 0.8 AST 29 ALT 23 Alkaline Phosphatase 152 H Lipase 81 H Assessment and Plan - Plan CVA/TIA No focal weakness Numbness of left-sided body Started on aspirin and statin CT findings noted no acute changes Symptoms resolved Monitor neuro vital signs Monitor under telemetry NSTEMI Will trend cardiac enzymes Will monitor telemetry Started on aspirin and statin Patient denies any chest pain Will get an echocardiogram Cardiology consult Acute kidney injury on CKD stage II Renal parameters monitor Nephrology consulted Electrolytes monitor and replace accordingly Elevated BNP Monitor closely on telemetry Continue home medications Titrate as needed Will obtain an echocardiogram Hypertension Antihypertensives titrated Continue home medications and titrate as needed Hyperlipidemia Continue statin History of alcohol abuse Watch closely for DT Advise cessation GI/DVT prophylaxis Advanced directive full code Discharge Plan: Home Plan to discharge in: 48 Hours - Advance Directives Does patient have a Living Will: No Does patient have a Durable POA for Healthcare: No - Code Status/Comfort Care Code Status: Full Code Time Spent Managing Pts Care (In Minutes): 48
[2024-03-11] MEDS ORDERED: ACETAMINOPHEN 325 MG TABLET PO PRN (02:09)
[2024-03-11] MEDS ORDERED: ONDANSETRON 4 MG/2 ML VIAL IV PRN (02:09)
[2024-03-11] MEDS ORDERED: AMIODARONE HCL 200 MG TAB ONE (08:03)
[2024-03-11] MEDS ORDERED: APIXABAN 5 MG TABLET ONE (08:03)
[2024-03-11] MEDS ORDERED: HYDRALAZINE HCL 25 MG TABLET ONE (08:03)
[2024-03-11] MEDS ORDERED: ASPIRIN EC 81 MG TAB PO ONE (08:04)
[2024-03-11] MEDS ORDERED: carvediloL 6.25 MG TAB ONE (08:04)
[2024-03-11] MEDS: carvediloL 12.5 MG TAB PO SCH (08:38)
[2024-03-11] MEDS: AMIODARONE HCL 200 MG TAB PO SCH (08:38)
[2024-03-11] MEDS: ASPIRIN EC 81 MG TAB PO SCH (08:38)
[2024-03-11] MEDS: APIXABAN 2.5 MG TABLET PO SCH (08:38)
[2024-03-11] MEDS: HYDRALAZINE HCL 25 MG TABLET PO SCH (08:38)
[2024-03-11] MEDS: allopurinoL 300 MG TAB PO SCH (09:00)
[2024-03-11] MEDS: ISOSORBIDE DINIT 20 MG TAB PO SCH (09:00)
[2024-03-11 09:05] LABS: Phosphorus 3.4 mg/dL (2.5-4.9)
--- NOTE | 2024-03-11 13:08 | P.DS ---
Admission Date: 03/11/24 Discharge Date: 03/11/24 Disposition: ROUTINE DISCHARGE Discharge Condition: FAIR Reason for Admission: Left side numbness - Problems (1) Left upper extremity numbness Current Visit: Yes Status: Acute (2) Atrial fibrillation Current Visit: No Status: Acute (3) Elevated troponin Current Visit: No Status: Acute (4) Mural thrombus of heart Current Visit: No Status: Acute (5) Chronic alcoholism Current Visit: No Status: Chronic (6) Chronic systolic heart failure Current Visit: No Status: Chronic (7) Chronic kidney disease, stage 3 Current Visit: No Status: Chronic Qualifiers: Chronic kidney disease stage 3 subtype: stage 3b (GFR 30-44) Qualified Code(s): N18.32 - Chronic kidney disease, stage 3b Brief History of Present Illness: 63-year-old male with past medical history of chronic systolic heart failure, coronary artery disease, atrial fibrillation, mural thrombus, pancreatitis, alcohol abuse, gout, CKD stage IV, hypertension presented to the emergency department for generalized weakness and left-sided numbness. Patient reported 1 day history of left-sided numbness which got progressively getting worse. Patient denied any chest pain or shortness of breath. No nausea vomiting or diarrhea. No sick contacts. Patient was assessed in the ER, CT was negative for an acute stroke and patient is on Eliquis so TNK was not indicated. Patient drinks half a pint of liquor at home daily. His initial troponin also elevated. Patient was admitted for further management possible TIA/CVA. Hospital Course: Patient was placed on the positioning medical floor. His initial troponin was elevated to 774. Noted patient has chronic troponin elevation. He denied any chest pain or shortness of breath. Patient was stated his left-sided numbness has resolved. Troponin trended flat. His vitals are stable and currently denies any symptoms and requested to go home. Case discussed with cardiology Dr. Rangel who plans for follow-up with patient in the office within a couple of weeks. ACS ruled out. Patient has a history of chronic alcohol abuse with high risk for peripheral neuropathy. Vital Signs/Physical Exam: Temp Pulse Resp BP Pulse Ox 98.2 F 57 16 123/84 100 03/11/24 12:00 03/11/24 12:00 03/11/24 12:00 03/11/24 12:03/11/24 12:00 General: Alert, In no apparent distress, Oriented x3 HEENT: Mucous membr. moist/pink Neck: JVD not distended Respiratory: Clear to auscultation bilaterally, Normal air movement Cardiovascular: No edema, Normal S1 S2, Irregular heart rate/rhythm Gastrointestinal: Normal bowel sounds, Soft and benign, Non-distended, No tenderness Musculoskeletal: No swelling Integumentary: No rashes, No cyanosis Neurological: Normal speech, Normal strength at 5/5 x4 extr Laboratory Data at Discharge: WBC 5.30 thou/uL (4.3-10.9) 03/10/24 20:30 Hgb 12.7 g/dL (13.6-17.9) L 03/10/24 20:30 Hct 39.8 % (39.6-49.0) 03/10/24 20:30 Plt Count 286 thou/uL (152-406) 03/10/24 20:30 PT 11.8 SECONDS (9.4-12.5) 03/10/24 20:30 INR 1.06 03/10/24 20:30 APTT 61.1 SECONDS (24.3-36.9) H 03/11/24 06:20 Sodium 138 mEq/L (136-145) 03/10/24 20:30 Potassium 4.2 mEq/L (3.5-5.1) 03/10/24 20:30 BUN 31 mg/dL (7-18) H 03/10/24 20:30 Creatinine 2.43 mg/dL (0.70-1.30) H 03/10/24 20:30 Glucose 91 mg/dL (74-106) 03/10/24 20:30 Uric Acid 7.4 mg/dL (3.5-7.2) H 03/10/24 20:30 Phosphorus Cancelled 03/11/24 08:47 Magnesium 2.4 mg/dL (1.6-2.4) 03/10/24 20:30 Total Bilirubin 0.8 mg/dL (0.2-1.0) 03/10/24 20:30 AST 29 U/L (15-37) 03/10/24 20:30 ALT 23 U/L (16-61) 03/10/24 20:30 Alkaline Phosphatase 152 U/L (45-117) H 03/10/24 20:30 Lipase 81 U/L (13-75) H 03/10/24 20:30 Home Medications: Pantoprazole [Protonix Tab*] 40 mg PO DAILY #30 tab 09/06/21 Aspirin [Aspirin EC] 81 mg PO DAILY #30 tab 10/29/22 Amiodarone HCl [Cordarone*] 200 mg PO DAILY 08/22/23 Ferrous Sulfate 325 mg PO DAILY 08/22/23 Isosorbide Dinit [Isordil*] 20 mg PO TID 08/22/23 Atorvastatin Calcium [Lipitor] 40 mg PO BEDTIME 10/13/23 Calcium Acetate [Phoslo] 2 cap PO TIDWM 11/28/23 Dapagliflozin Propanediol [Farxiga] 10 mg PO DAILY 11/28/23 Folic Acid 1 mg PO DAILY 11/28/23 Torsemide [Demadex*] 20 mg PO DAILY 11/28/23 carvediloL [Coreg*] 12.5 mg PO BID 11/28/23 Hydralazine [Apresoline*] 25 mg PO TID #90 tab 12/02/23 Allopurinol 300 mg PO DAILY 30 Days #30 tab 12/07/23 Apixaban [Eliquis] 2.5 mg PO BID 30 Days #60 tab 12/07/23 Vitamin D [Drisdol*] 50,000 unit PO EVERY 7TH DAY 30 Days #4 cap 12/07/23 Diet: AHA Activity: Ad pelon Followup: Anton Hayes DO [Primary Care Provider] - 1 Week Time spent managing pt's care (in minutes): 27
[2024-03-11] MEDS ORDERED: PNEUMOCOCCAL VACCINE 0.5 ML IMVAC ONE (14:00)
[2024-03-11] MEDS ORDERED: ATORVASTATIN 40 MG TAB PO SCH (21:00)
--- NOTE | 2024-03-12 13:21 | EKG ---
Test Date: 2024-03-10 Test Time: 22:02:22 [employer] Planner: LUMA MEASUREMENT RESULTS: Intervals: Rate: 73 W[place]: 238 QRSD: 146 QT: 438 QTc: 482 [place]: P: 72 W[place]: 238 QRS: -63 T: 100 INTERPRETIVE STATEMENTS: Sinus rhythm with 1st degree AV block with occasional premature ventricular complexes Left bundle branch block Abnormal ECG Compared to ECG 01/26/2024 14:14:24 Ventricular premature complex(es) now present Left bundle-branch block now present Left-axis deviation no longer present Electronically Signed On 03-12-24 13:15:22 CDT by Shamar De Guzman
[2024-03-12 18:23] VITALS: BMI 25.0
[2024-03-12 18:26] VITALS: BP 123/84; TEMP 98.2
[2024-03-12 19:05] VITALS: O2SAT 100
== END 2024-03-11 14:09 | disposition home or self-care (01) ==
LOC: ER 20:17 → ERHOLD 03-11 02:09
PROVIDERS: ADMIT Family Medicine; ATTEND Internal Medicine
DX: R20.0 Anesthesia of skin (principal); I25.10 Atherosclerotic heart disease of native coronary artery without angina pectoris; I48.91 Unspecified atrial fibrillation; K85.90 Acute pancreatitis without necrosis or infection, unspecified; M10.9 Gout, unspecified; I12.9 Hypertensive chronic kidney disease with stage 1 through stage 4 chronic kidney disease, or unspecified chronic kidney disease; N18.4 Chronic kidney disease, stage 4 (severe); R79.89 Other specified abnormal findings of blood chemistry; F10.20 Alcohol dependence, uncomplicated; Z79.01 Long term (current) use of anticoagulants; Z88.0 Allergy status to penicillin
CPT/HCPCS: 93005; 85025; 80048; 36415; 83721; 83735; 84100; 85610; 80076; 84550; 85730 ×2; 84443; 84484 ×4; 83690; 83880; 86140; 70450; 72125; 71045; 73030; 99285; 82077; J3411; J1644; J2405; J7030; G0378 ×2

== ENCOUNTER 2024-04-18 07:15 | Observation (INO) | payer OTHER ==
[2024-04-18] MEDS ORDERED: NITROGLYCERIN 0.4 MG/TAB SL ONE (07:50)
[2024-04-18] MEDS ORDERED: ASPIRIN EC 325 MG TABLET PO ONE (07:50)
[2024-04-18 07:55] LABS: Absolute Eosinophils 0.3 K/uL (0-0.5); Absolute Lymphocytes (CBC) 0.8 K/uL (0.7-4.9); Absolute Monocytes 0.6 K/uL (0.1-1.3); Absolute Neutrophil 4.5 K/uL (1.8-8.0); Basophils % 0.7 % (0-1.3); Eosinophils % 4.2 % (0-4.4); Hematocrit 43.8 % (39.6-49.0); Hemoglobin 13.8 g/dL (13.6-17.9); Lymphocytes % 12.8 % (15.3-44.8); MCH 27.4 pg (27.0-35.0); MCHC 31.5 g/dL (32.0-36.0); Monocytes % 9.7 % (3.3-12.3); Neutrophils % 72.6 % (41.7-73.7); Platelets 191 thou/uL (152-406); RBC Red Blood Cell Count 5.03 M/uL (4.33-5.43); Red Cell Distribution Width 16.5 % (12.1-15.2)
[2024-04-18 08:17] LABS: Albumin 3.2 g/dL (3.4-5.0); Albumin/Globulin Ratio 0.7 (1.1-1.8); Anion Gap 10.4 mEq/L (5.0-15.0); Bilirubin Direct 0.9 mg/dL (0-0.2); Bilirubin Indirect, Calculated 1.3 mg/dL (0.2-0.8); Bilirubin Total 2.2 mg/dL (0.2-1.0); Globulin 4.5 g/dL (2.3-3.5); Magnesium 2.3 mg/dL (1.6-2.4); Potassium 4.4 mEq/L (3.5-5.1); Protein, Total 7.7 g/dL (6.4-8.2)
[2024-04-18 08:23] LABS: Troponin High Sensitivity 760.9 pg/mL (<58.9)
--- NOTE | 2024-04-18 09:13 | RAD REPORT ---
EXAM DESCRIPTION: Catarina Single View04/18/2024 8:51 am CLINICAL HISTORY: Chest pain COMPARISON: February 2024 FINDINGS: The lungs appear clear of acute infiltrate. The heart is moderately enlarged IMPRESSION: No acute abnormalities displayed
--- NOTE | 2024-04-18 09:30 | ER ---
Nurse's Notes [facility] Name: Natan Paulino Age: 63 yrs Sex: Male : 1960 Arrival Date: 04/18/2024 Time: 07:15 Bed 4 Private MD: Diagnosis: Chest pain, unspecified;Elevated troponin Presentation: 04/18 07:28 Chief complaint: Sharp left sided chest pain, SOB, and palpitations that started 2 hrs hb ago while lying in bed. Coronavirus screen: At this time, the client does not indicate any symptoms associated with coronavirus-19. Ebola Screen: No symptoms or risks identified at this time. Initial Sepsis Screen: Does the patient meet any 2 criteria? No. Patient's initial sepsis screen is negative. Does the patient have a suspected source of infection? No. Patient's initial sepsis screen is negative. Risk Assessment: Do you want to hurt yourself or someone else? Patient reports no desire to harm self or others. Onset of symptoms was April 18, 2024. 07:28 Method Of Arrival: Ambulatory hb 07:28 Acuity: NINO 2 hb Historical: - Allergies: 07:30 PENICILLINS; hb - Home Meds: 09:41 Unable to obtain [Active]; ko1 - PMHx: 07:30 Atrial fibrillation; CHF; Gout; Hypertension; Myocardial infarction; osteoarthritis; hb Pancreatitis; Rheumatoid Arthritis; stroke; TIA; - PSHx: 07:30 finger; heart stent; Stented artery; hb - Immunization history:: Adult Immunizations up to date. - Infectious Disease History:: Denies. - Social history:: Smoking status: Patient denies any tobacco usage or history of. - Family history:: not pertinent. Screenin:33 [facility] ED Fall Risk Assessment (Adult) History of falling in the last 3 months, ko1 including since admission No falls in past 3 months (0 pts) Confusion or Disorientation No (0 pts) Intoxicated or Sedated No (0 pts) Impaired Gait No (0 pts) Mobility Assist Device Used No (0 pt) Altered Elimination No (0 pt) Score/Fall Risk Level 0 - 2 = Low Risk Oriented to surroundings, Maintained a safe environment, Educated pt \T\ family on fall prevention, incl call for assistance when getting out of bed, Assessed \T\ reinforced patient's understanding of fall precautions, Provided non-skid footwear, Hourly rounding (assess needs \T\ fall precautionary measures) done, Used ambulatory aids as needed (educated on \T\ assisted with), Used gait belt as appropriate. Abuse screen: Denies threats or abuse. Denies injuries from another. Nutritional screening: No deficits noted. Tuberculosis screening: No symptoms or risk factors identified. Assessment: 07:33 General: Appears in no apparent distress. Behavior is calm, cooperative, appropriate ko1 for age. Pain: Complains of pain in chest Pain does not radiate. Pain began 1 hour ago. Neuro: No deficits noted. Cardiovascular: Reports chest pain, palpitations, shortness of breath. Respiratory: Reports shortness of breath on exertion. GI: No deficits noted. : No deficits noted. EENT: No deficits noted. Derm: No deficits noted. Musculoskeletal: No deficits noted. Vital Signs: 07:28 BP 154 / 111; Pulse 92; Resp 18; Temp 97.7(TE); Pulse Ox 99% on R/A; Weight 90.72 kg; hb Height 6 ft. 3 in. ; Pain 7/10; 08:03 BP 154 / 105; Pulse 71; Resp 16; Pulse Ox 99% on R/A; ko1 08:13 BP 153 / 103; Pulse 68; Resp 16; Pulse Ox 100% on R/A; ko1 09:09 BP 161 / 117; Pulse 75; Resp 16; Pulse Ox 100% ; ko1 10:07 BP 155 / 112; Pulse 73; Resp 18; Pulse Ox 99% ; ko1 11:43 BP 159 / 115; Pulse 71; Resp 16; Pulse Ox 99% ; ko1 07:28 Body Mass Index 25.00 (90.72 kg, 190.5 cm) hb 07:28 Pain Scale: Adult hb ED Course: 07:20 Patient arrived in ED. gm2 07:21 Raffy Mansfield MD is Attending Physician. rt 07:30 Triage completed. hb 07:30 Arm band placed on. hb 07:32 Cathy Crockett, RADHIKA is Primary Nurse. ko1 07:33 Patient has correct armband on for positive identification. Allergy band placed. Bed in ko1 low position. Call light in reach. Side rails up X 1. Provided Education on: labs, call light. Client placed on continuous cardiac and pulse oximetry monitoring. NIBP monitoring applied. chucking lathe operator on. Door closed. Noise minimized. Lights dimmed. Warm blanket given. Pillow given. 07:33 No provider procedures requiring assistance completed. Patient maintains SpO2 ko1 saturation greater than 95% on room air. 07:40 EKG done, by ED staff, reviewed by Raffy Mansfield MD. em1 07:47 Basic Metabolic Panel Sent. ko1 07:47 CBC with Diff Sent. ko1 07:47 LFT's Sent. ko1 07:47 Magnesium Sent. ko1 07:47 Troponin HS Sent. ko1 07:55 Initial lab(s) drawn, by mi, sent to lab. Inserted saline lock: 20 gauge in right ko1 antecubital area, using aseptic technique. Blood collected. Flushed with 10 mL NS. 08:52 XRAY Chest (1 view) In Process Unspecified. EDMS 09:29 Jeet Hernandez MD is Hospitalizing Provider. rt 10:07 Patient admitted, IV remains in place. ko1 10:21 Lab Add On Sent. ko1 Administered Medications: 07:54 Drug: Aspirin PO 325 mg PO once Route: PO; ko1 08:24 Follow up: Response: No adverse reaction ko1 07:54 Drug: Nitroglycerin Sublingual 0.4 mg Sublingual once; every five minute if needed x3 ko1 Route: Sublingual; 09:44 Drug: Nitroglycerin Sublingual 0.4 mg Sublingual once; every five minute if needed x3 ko1 Route: Sublingual; 09:52 Drug: Nitroglycerin Sublingual 0.4 mg Sublingual once; every five minute if needed x3 ko1 Route: Sublingual; 10:05 Follow up: Response: No adverse reaction ko1 10:21 Drug: amLODIPine PO 10 mg PO once Route: PO; ko1 10:51 Follow up: Response: No adverse reaction ko1 Medication: 07:33 VIS not applicable for this client. ko1 Outcome: 09:30 Decision to Hospitalize by Provider. rt 10:07 Condition: stable ko1 10:07 Instructed on the need for admit, 12:44 Admitted to ER Hold. Please see [facility] for further documentation. ko1 13:57 Patient left the ED. ko1 Signatures: Dispatcher [employer] James Perez em1 Lanie Bobo RN RN hb Cathy Crockett RN RN ko1 Raffy Mansfield MD MD rt Candace Khalil gm2
--- NOTE | 2024-04-18 09:30 | EDPHYS ---
Physician Documentation [facility] Name: Natan Paulino Age: 63 yrs Sex: Male : 1960 Arrival Date: 04/18/2024 Time: 07:15 Bed 4 Private MD: ED Physician Raffy Mansfield HPI: 04/18 09:13 This 63 yrs old Black Male presents to ER via Ambulatory with complaints of Chest Pain. rt 09:13 Patient had acute onset of chest pain, shortness of breath starting about 4 in the rt patient was sleeping. Patient states that the pain is left-sided, nonradiating. Reports brief nausea but no other complaints. Symptoms are moderate in severity, no other aggravating alleviating factors.. Historical: - Allergies: 07:30 PENICILLINS; hb - Home Meds: 09:41 Unable to obtain [Active]; ko1 - PMHx: 07:30 Atrial fibrillation; CHF; Gout; Hypertension; Myocardial infarction; osteoarthritis; hb Pancreatitis; Rheumatoid Arthritis; stroke; TIA; - PSHx: 07:30 finger; heart stent; Stented artery; hb - Immunization history:: Adult Immunizations up to date. - Infectious Disease History:: Denies. - Social history:: Smoking status: Patient denies any tobacco usage or history of. - Family history:: not pertinent. ROS: 09:13 Constitutional: Negative for fever, chills, and weight loss, MS/Extremity: Negative for rt injury and deformity, Skin: Negative for injury, rash, and discoloration, Neuro: Negative for headache, weakness, numbness, tingling, and seizure, Psych: Negative for depression, anxiety, suicide ideation, homicidal ideation, and hallucinations, 09:13 Cardiovascular: Positive for chest pain, Negative for edema, 09:13 Respiratory: Positive for shortness of breath, Negative for cough, 09:13 Abdomen/GI: Positive for nausea, Negative for abdominal pain, Exam: 09:13 Constitutional: This is a well developed, well nourished patient who is awake, alert, rt and in no acute distress. Head/Face: Normocephalic, atraumatic. Chest/axilla: Normal chest wall appearance and motion. Nontender with no deformity. No lesions are appreciated. Cardiovascular: Regular rate and rhythm with a normal S1 and S2. No gallops, murmurs, or rubs. Normal PMI, no JVD. No pulse deficits. Respiratory: Lungs have equal breath sounds bilaterally, clear to auscultation and percussion. No rales, rhonchi or wheezes noted. No increased work of breathing, no retractions or nasal flaring. Abdomen/GI: Soft, non-tender, with normal bowel sounds. No distension or tympany. No guarding or rebound. No evidence of tenderness throughout. Skin: Warm, dry with normal turgor. Normal color with no rashes, no lesions, and no evidence of cellulitis. MS/ Extremity: Pulses equal, no cyanosis. Neurovascular intact. Full, normal range of motion. Neuro: Awake and alert, GCS 15, oriented to person, place, time, and situation. Cranial nerves II-XII grossly intact. Motor strength 5/5 in all extremities. Sensory grossly intact. Cerebellar exam normal. Normal gait. 09:13 ECG was reviewed by the Attending Physician. Vital Signs: 07:28 BP 154 / 111; Pulse 92; Resp 18; Temp 97.7(TE); Pulse Ox 99% on R/A; Weight 90.72 kg; hb Height 6 ft. 3 in. ; Pain 7/10; 08:03 BP 154 / 105; Pulse 71; Resp 16; Pulse Ox 99% on R/A; ko1 08:13 BP 153 / 103; Pulse 68; Resp 16; Pulse Ox 100% on R/A; ko1 09:09 BP 161 / 117; Pulse 75; Resp 16; Pulse Ox 100% ; ko1 10:07 BP 155 / 112; Pulse 73; Resp 18; Pulse Ox 99% ; ko1 11:43 BP 159 / 115; Pulse 71; Resp 16; Pulse Ox 99% ; ko1 07:28 Body Mass Index 25.00 (90.72 kg, 190.5 cm) hb 07:28 Pain Scale: Adult hb MDM: 07:35 Patient medically screened. rt 12:59 Differential diagnosis: ACS, nonspecific chest pain, troponin leak, pneumonia. Data rt reviewed: vital signs, nurses notes, lab test result(s), EKG, radiologic studies. Consideration of Admission/Observation Patient was admitted/placed on observation. Management of patient was discussed with the following: Hospitalist: Agrees to admit. I considered the following discharge prescriptions or medication management in the emergency department Medications were administered in the Emergency Department. See MAR. Independent interpretation of the following test(s) in the Emergency Department X-Ray: My interpretation is No pneumonia seen on interpretation of x-ray images. Care significantly affected by the following chronic conditions: Congestive Heart Failure. Counseling: I had a detailed discussion with the patient and/or guardian regarding the historical points, exam findings, and any diagnostic results supporting the discharge/admit diagnosis, lab results, radiology results, the need for further work-up and treatment in the hospital. Response to treatment: the patient's symptoms have markedly improved after treatment. 04/18 07:40 Order name: Basic Metabolic Panel; Complete Time: 08:31 rt 04/18 07:40 Order name: CBC with Diff; Complete Time: 08:31 rt 04/18 07:40 Order name: LFT's; Complete Time: 08:31 rt 04/18 07:40 Order name: Magnesium; Complete Time: 08:31 rt 04/18 07:40 Order name: Troponin HS; Complete Time: 08:31 rt 04/18 09:47 Order name: Lab Add On EDMS 04/18 09:50 Order name: Urine Drug Screen EDMS 04/18 09:54 Order name: Lipase; Complete Time: 11:07 EDMS 04/18 10:39 Order name: Basic Metabolic Panel EDID 04/18 10:39 Order name: Basic Metabolic Panel EDID 04/18 10:39 Order name: CBC with Automated Diff EDMS 04/18 10:39 Order name: CBC with Automated Diff EDMS 04/18 10:39 Order name: Lipid Profile EDID 04/18 10:39 Order name: Lipid Profile EDID 04/18 10:39 Order name: Troponin High Sensitivity EDID 04/18 10:39 Order name: Troponin High Sensitivity EDID 04/18 10:39 Order name: Troponin High Sensitivity EDMS 04/18 10:39 Order name: Troponin High Sensitivity EDID 04/18 07:40 Order name: XRAY Chest (1 view); Complete Time: 09:16 rt 04/18 07:40 Order name: EKG; Complete Time: 07:40 rt 04/18 07:40 Order name: Cardiac monitoring; Complete Time: 07:47 rt 04/18 07:40 Order name: EKG - Nurse/Tech; Complete Time: 07:40 rt 04/18 07:40 Order name: IV Saline Lock; Complete Time: 07:47 rt 04/18 07:40 Order name: Labs collected and sent; Complete Time: 07:47 rt 04/18 07:40 Order name: O2 Per Protocol; Complete Time: :47 rt 04/18 07:40 Order name: O2 Sat Monitoring; Complete Time: 07:47 rt EC:13 Rate is 85 beats/min. Rhythm is regular, 1st Degree Block with Left bundle branch rt block. Left axis deviation noted. IL interval is prolonged at 242 msec. QRS interval is normal. QT interval is prolonged at 499 msec. No Q waves. Administered Medications: 07:54 Drug: Aspirin PO 325 mg PO once Route: PO; ko1 08:24 Follow up: Response: No adverse reaction ko1 07:54 Drug: Nitroglycerin Sublingual 0.4 mg Sublingual once; every five minute if needed x3 ko1 Route: Sublingual; 09:44 Drug: Nitroglycerin Sublingual 0.4 mg Sublingual once; every five minute if needed x3 ko1 Route: Sublingual; 09:52 Drug: Nitroglycerin Sublingual 0.4 mg Sublingual once; every five minute if needed x3 ko1 Route: Sublingual; 10:05 Follow up: Response: No adverse reaction ko1 10:21 Drug: amLODIPine PO 10 mg PO once Route: PO; ko1 10:51 Follow up: Response: No adverse reaction ko1 Disposition Summary: 04/18/24 09:30 Hospitalization Ordered Notes: Hospitalization Status: Observation rt Provider: Jeet Hernandez rt Location: Telemetry/MedSurg (observation) rt Condition: Stable rt Problem: an acute exacerbation rt Symptoms: have improved rt Bed/Room Type: Standard rt Room Assignment: 216(04/18/24 13:08) rs5 Diagnosis - Chest pain, unspecified rt - Elevated troponin rt Forms: - Medication Reconciliation Form rt - SBAR form rt - Leadership Thank You Letter rt Signatures: Dispatcher [employer] Aby Cooper FNP-C FNP-Lanie Negron RN RN hb Cathy Crockett RN RN ko1 Raffy Mansfield MD MD rt Popeye Evans RN RN rs5 Corrections: (The following items were deleted from the chart) 07:40 07:40 BASIC METABOLIC PANEL+C.LAB.BRZ ordered. EDMS EDMS 07:40 07:40 CBC+H.LAB.BRZ ordered. EDMS EDMS 07:40 07:40 HEPATIC FUNCTION+C.LAB.BRZ ordered. EDMS EDMS 07:40 07:40 MAGNESIUM+C.LAB.BRZ ordered. EDMS EDMS 07:40 07:40 Troponin High Sensitivity+C.LAB.BRZ ordered. EDMS EDMS 13:08 09:30 rt rs5
--- NOTE | 2024-04-18 09:43 | P.HP ---
Certification for Inpatient Patient admitted to: Observation With expected LOS: <2 Midnights Patient will require the following post-hospital care: None Practitioner: I am a practitioner with admitting privileges, knowledge of patient current condition, hospital course, and medical plan of care. Services: Services provided to patient in accordance with Admission requirements found in Title 42 Section 412.3 of the Code of Federal Regulations <Aby Andrews - Last Filed: 04/18/24 11:01> Patient History Date of Service: 04/18/24 Reason for admission: CP/Elevated troponin History of Present Illness: Mr. Paulino is a 63-year-old gentleman with a past medical history of atrial fibrillation, CHF, gout, hypertension, alcoholic pancreatitis, rheumatoid arthritis, CVA, and myocardial infarction. He presented to the emergency department this morning after acute onset of chest pain at 4 AM. Mr. Paulino has been admitted monthly for similar signs and symptoms. He had an echocardiogram in November of this year that showed an ejection fraction of 45 to 50% with mild global hypokinesis. On January 26 admission he was seen by cardiology. The plan is to continue his regular medications and attempt to control symptoms with a stable medication regimen and lifestyle changes. Mr. Paulino states he has not missed any of his medications, he is feeling better after administration of nitro sublingually and 1 aspirin in the emergency department. He does have a mild troponin leak at baseline and CKD. Today's troponin is a little higher than baseline so he will be admitted for observation and serial enzymes. Labs: WBC 6.2, H/H 13.8/43.8, platelets of 191 Transaminase negative, alkaline phosphatase 183, with a total bili of 2.2, d irect bili of 0.9, lipase today is normal at 21 Chem-7 with normal electrolytes, creatinine 2.85 which is roughly baseline for patient Troponin today 760.9 Added urine drug screen as patient was cocaine positive in the past Imaging: Lungs clear of acute infiltrate. 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 Rossi/ Dr. Cabral) -: CAD -: Mural thrombus-left ventricle-resolved, on Eliquis -: CVA/ TIA -: Hep C--rec'd treatment 08/2023 -: Cardiac stent placement July 2019 -: removal of L hand 5th digit -: Cardiac catheterization 08/2023 Psychosocial/ Personal History: Patient currently lives at home with his and is on disability due to heart condition. - Family History Father -: Cancer, Liver disease Mother -: GI disease, Other (see notes) Notes: NA - Social History Alcohol use: Yes CD- Drugs: Yes Caffeine use: Yes Place of Residence: Home <Aby Andrews Saqib - Last Filed: 04/18/24 11:01> Date of Service: 04/18/24 <Jeet Hernandez - Last Filed: 04/18/24 21:38> Allergies Penicillins Allergy (Verified 10/27/22 21:16) Hives/Rash Home Medications: Pantoprazole [Protonix Tab*] 40 mg PO DAILY #30 tab 09/06/21 Aspirin [Aspirin EC] 81 mg PO DAILY #30 tab 10/29/22 Amiodarone HCl [Cordarone*] 200 mg PO DAILY 08/22/23 Ferrous Sulfate 325 mg PO DAILY 08/22/23 Isosorbide Dinit [Isordil*] 20 mg PO TID 08/22/23 Atorvastatin Calcium [Lipitor] 40 mg PO BEDTIME 10/13/23 Calcium Acetate [Phoslo] 2 cap PO TIDWM 11/28/23 Dapagliflozin Propanediol [Farxiga] 10 mg PO DAILY 11/28/23 Folic Acid 1 mg PO DAILY 11/28/23 Torsemide [Demadex*] 20 mg PO DAILY 11/28/23 carvediloL [Coreg*] 12.5 mg PO BID 11/28/23 Hydralazine [Apresoline*] 25 mg PO TID #90 tab 12/02/23 Allopurinol 300 mg PO DAILY 30 Days #30 tab 12/07/23 Apixaban [Eliquis] 2.5 mg PO BID 30 Days #60 tab 12/07/23 Vitamin D [Drisdol*] 50,000 unit PO EVERY 7TH DAY 30 Days #4 cap 12/07/23 Review of Systems Cardiovascular: Chest Pain, Palpitations <Andrews,Aby Saqib - Last Filed: 04/18/24 11:01> Physical Examination - Physical Exam General: Alert, In no apparent distress, Oriented x3 HEENT: Atraumatic, Normocephalic Neck: Supple Respiratory: Clear to auscultation bilaterally Cardiovascular: No edema, Regular rate/rhythm, Other (EKG shows normal sinus with a first-degree AV block with left bundle branch -will check chronicity of LBBB) Capillary refill: <2 Seconds Gastrointestinal: Soft and benign Musculoskeletal: No clubbing Integumentary: No rashes Neurological: Normal speech, Normal tone, Normal affect Lymphatics: No axilla or inguinal lymphadenopathy External genitalia: Deferred Rectal: Deferred - Studies Laboratory Data (last 24 hrs) 04/18/24 04/18/24 07:45 07:45 WBC 6.20 Hgb 13.8 Hct 43.8 Plt Count 191 Sodium 137 Potassium 4.4 BUN 35 H Creatinine 2.85 H Glucose 88 Magnesium 2.3 Total Bilirubin 2.2 H AST 30 ALT 18 Alkaline Phosphatase 183 H <Aby Andrews - Last Filed: 04/18/24 11:01> - Studies Laboratory Data (last 24 hrs) 04/18/24 04/18/24 04/18/24 07:45 07:45 07:45 WBC 6.20 Hgb 13.8 Hct 43.8 Plt Count 191 Sodium 137 Potassium 4.4 BUN 35 H Creatinine 2.85 H Glucose 88 Magnesium 2.3 Total Bilirubin 2.2 H AST 30 ALT 18 Alkaline Phosphatase 183 H Lipase 21 <Jeet Hernandez - Last Filed: 04/18/24 21:38> Assessment and Plan - Plan Stable angina Serial troponins Serial EKGs Monitor and trend Recent echo, recent stress test, recent cardiology evaluation Will consult cardiology as needed worsening signs and symptoms, changes Hypertension with CKD Patient is on hydralazine, Coreg, Isordil, received nitro sublingual in ED. Continue home medicine Monitor and trend Hyperlipidemia Atorvastatin History of alcoholic pancreatitis/cocaine abuse lifestyle modifications recommended VTE/GI prophylaxis - Advance Directives Does patient have a Living Will: No Does patient have a Durable POA for Healthcare: No - Code Status/Comfort Care Code Status Assessed: Yes (Full) Critical Care: No Time Spent Managing Pts Care (In Minutes): 50 <Aby Andrews - Last Filed: 04/18/24 11:01> - Plan Pt seen and examined. I agree with the note by the VETERINARY PRACTICE MANAGER. Pt is a 63yo male with past medical history of Atrial fibrillation, CHF, gout, hypertension, alcoholic pancreatitis, rheumatoid arthritis, CVA, and CAD s/p GA who presents with chest pain. The chest pain started at 4am and progressively worsened. he took nitroglycerin and came to the ER for evaluation. Pt endorsed compliance with home meds. Lab studies show wbc 6.2, Hgb 13.8, K 4.4, cr 2.85 and troponin 760 - >721. UDS is pending. At bedside, pt is in NAD. A/P: NSTEMI: troponin s 760 - > 721. Will continue heparin drip. Consulted Cardiology. Pt recently had Echo and stress test. Htn: Continue hydralazine, Isordil, hold coreg. until we rule out cocaine abuse. BRIDGER on CKD, stage 3: cr is 2.85. Will avoid nephrotoxins and monitor renal function. Nephrology is following. HLD: statin Hx of cocaine abuse: UDS is pending. Avoid beta medardo if positive DVT ppx: SCD Code: full <Jeet Hernandez - Last Filed: 04/18/24 21:38>
[2024-04-18] MEDS ORDERED: AMLODIPINE 10 MG TAB ONE (10:19)
[2024-04-18] MEDS: CALCIUM ACETATE 667 MG TAB PO SCH (12:00)
[2024-04-18 12:03] LABS: Troponin High Sensitivity 721.9 pg/mL (<58.9)
--- NOTE | 2024-04-18 12:26 | P.CNS ---
Date of Consult: 04/18/24 Reason for Consult: CKD Requesting Physician: Jeet Hernandez Chief Complaint: CP/Elevated troponin History of Present Illness: Mr. Paulino is a 63-year-old gentleman with a past medical history of atrial fibrillation, CHF, gout, hypertension, alcoholic pancreatitis, rheumatoid arthritis, CVA, and myocardial infarction. He presented to the emergency department this morning after acute onset of chest pain at 4 AM. Mr. Paulino has been admitted monthly for similar signs and symptoms. He had an echocardiogram in November of this year that showed an ejection fraction of 45 to 50% with mild global hypokinesis. On January 26 admission he was seen by cardiology. The plan is to continue his regular medications and attempt to control symptoms with a stable medication regimen and lifestyle changes. Mr. Paulino states he has not missed any of his medications, he is feeling better after administration of nitro sublingually and 1 aspirin in the emergency department. He does have a mild troponin leak at baseline and CKD. Today's troponin is a little higher than baseline so he will be admitted for observation and serial enzymes. 09:13 This 63 yrs old Black Male presents to ER via Ambulatory with complaints of Chest Pain. rt 09:13 Patient had acute onset of chest pain, shortness of breath starting about 4 in the rt patient was sleeping. Patient states that the pain is left-sided, nonradiating. Reports brief nausea but no other complaints. Symptoms are moderate in severity, no other aggravating alleviating factors. Allergies Penicillins Allergy (Verified 10/27/22 21:16) Hives/Rash Home medications list reviewed: Yes Home Medications: Pantoprazole [Protonix Tab*] 40 mg PO DAILY #30 tab 09/06/21 Aspirin [Aspirin EC] 81 mg PO DAILY #30 tab 10/29/22 Amiodarone HCl [Cordarone*] 200 mg PO DAILY 08/22/23 Ferrous Sulfate 325 mg PO DAILY 08/22/23 Isosorbide Dinit [Isordil*] 20 mg PO TID 08/22/23 Atorvastatin Calcium [Lipitor] 40 mg PO BEDTIME 10/13/23 Calcium Acetate [Phoslo] 2 cap PO TIDWM 11/28/23 Dapagliflozin Propanediol [Farxiga] 10 mg PO DAILY 11/28/23 Folic Acid 1 mg PO DAILY 11/28/23 Torsemide [Demadex*] 20 mg PO DAILY 11/28/23 carvediloL [Coreg*] 12.5 mg PO BID 11/28/23 Hydralazine [Apresoline*] 25 mg PO TID #90 tab 12/02/23 Allopurinol 300 mg PO DAILY 30 Days #30 tab 12/07/23 Apixaban [Eliquis] 2.5 mg PO BID 30 Days #60 tab 12/07/23 Vitamin D [Drisdol*] 50,000 unit PO EVERY 7TH DAY 30 Days #4 cap 12/07/23 - Past Medical/Surgical History Diabetic: No -: HTN -: 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 Rossi/ Dr. Cabral) -: CAD -: Mural thrombus-left ventricle-resolved, on Eliquis -: CVA/ TIA -: Hep C--rec'd treatment 08/2023 -: Cardiac stent placement July 2019 -: removal of L hand 5th digit -: Cardiac catheterization 08/2023 Psychosocial/ Personal History: Patient currently lives at home with his and is on disability due to heart condition. - Family History Father Medical History: Cancer, Liver disease Mother Medical History: GI disease, Other (see notes) Notes: NA - Social History Smoking Status: Unknown if ever smoked Alcohol use: Yes CD- Drugs: Yes Caffeine use: Yes Place of Residence: Home Review of Systems 10-point ROS is otherwise unremarkable Cardiovascular: Chest Pain Physical Examination General: In no apparent distress, Oriented x3, Cooperative HEENT: Atraumatic Neck: Supple Respiratory: Clear to auscultation bilaterally Cardiovascular: No edema, Regular rate/rhythm Gastrointestinal: Hypoactive, Tenderness Musculoskeletal: No clubbing, No contractures Integumentary: No rashes, No cyanosis Neurological: Normal speech Laboratory Data (last 24 hrs) 04/18/24 04/18/24 04/18/24 07:45 07:45 07:45 WBC 6.20 Hgb 13.8 Hct 43.8 Plt Count 191 Sodium 137 Potassium 4.4 BUN 35 H Creatinine 2.85 H Glucose 88 Magnesium 2.3 Total Bilirubin 2.2 H AST 30 ALT 18 Alkaline Phosphatase 183 H Lipase 21 Imagings Data: EXAM DESCRIPTION: Catarina Single View04/18/2024 8:51 am CLINICAL HISTORY: Chest pain COMPARISON: February 2024 FINDINGS: The lungs appear clear of acute infiltrate. The heart is moderately enlarged IMPRESSION: No acute abnormalities displayed LEFT VENTRICULAR WALL MOTION: MILD GLOBAL HYPOKINESIS DOPPLER/COLOR FLOW: SEE BELOW COMMENTS: 1. MILDLY DEPRESSED LEFT VENTRICULAR EJECTION FRACTION 45-50% 2. MILD GLOBAL HYPOKINESIS 3. LEFT ATRIAL ENLARGEMENT 4. MILD MITRAL REGURGITATION 5. MODERATE TRICUSPID REGURGITATION Conclusions/Impression: Stage I BRIDGER may be prerenal azotemia CKD IIIb with Proteinuria -No NSAIDs -Hold torsemide at this time HTN with CKD/ CHF -Continue Coreg -Continue Hydralazine -Continue Isosorbide -Start Amlodipine daily -Labetolol IV prn Systolic CHF, chronic Moderate TR -Low sodium diet -Hold torsemide at this time CKD MBD -Continue Phoslo -Start Ergo Hx HCV Hospitalist and ER notes reviewed Thank you kindly for the consultation
[2024-04-18 12:49] VITALS: BMI 25.0
[2024-04-18] MEDS: HYDRALAZINE HCL 25 MG TABLET PO SCH (14:24)
[2024-04-18] MEDS: ISOSORBIDE DINIT 20 MG TAB PO SCH (14:24)
[2024-04-18] MEDS: AMLODIPINE 5 MG TAB PO SCH (14:24)
[2024-04-18] MEDS: LABETALOL 20 MG/4ML SYRINGE IV PRN (16:15)
[2024-04-18] MEDS: PANTOPRAZOLE 40MG TABLET PO SCH (16:15)
[2024-04-18] MEDS: carvediloL 12.5 MG TAB PO SCH (17:29)
[2024-04-18] MEDS: ATORVASTATIN 40 MG TAB PO SCH (20:50)
[2024-04-18] MEDS: APIXABAN 2.5 MG TABLET PO SCH (20:50)
[2024-04-18] MEDS: DOCUSATE NA 100 MG CAP PO SCH (20:50)
[2024-04-19 03:25] VITALS: O2SAT 98
[2024-04-19 04:51] LABS: Absolute Eosinophils 0.3 K/uL (0-0.5); Absolute Lymphocytes (CBC) 0.6 K/uL (0.7-4.9); Absolute Monocytes 0.6 K/uL (0.1-1.3); Absolute Neutrophil 3.1 K/uL (1.8-8.0); Basophils % 0.7 % (0-1.3); Eosinophils % 6.9 % (0-4.4); Hematocrit 37.2 % (39.6-49.0); Hemoglobin 11.9 g/dL (13.6-17.9); Lymphocytes % 13.6 % (15.3-44.8); MCH 27.5 pg (27.0-35.0); MCHC 32.1 g/dL (32.0-36.0); MCV 85.8 fL (80-100); MPV 9.9 fL (7.6-11.3); Monocytes % 12.6 % (3.3-12.3); Neutrophils % 66.2 % (41.7-73.7); Nucleated Red Blood Cells % 0.2 % (0-0); Platelets 170 thou/uL (152-406); RBC Red Blood Cell Count 4.33 M/uL (4.33-5.43); Red Cell Distribution Width 16.6 % (12.1-15.2)
[2024-04-19 05:05] LABS: Anion Gap 9.4 mEq/L (5.0-15.0); Potassium 4.4 mEq/L (3.5-5.1)
[2024-04-19] MEDS: AMIODARONE HCL 200 MG TAB PO SCH (08:33)
[2024-04-19] MEDS: FERROUS SULFATE 325 MG TAB PO SCH (08:33)
[2024-04-19] MEDS: FOLIC ACID 1 MG TABLET PO SCH (08:33)
[2024-04-19] MEDS: DRISDOL (VITAMIN D=ERGOCALCIFEROL) 50000 UNIT CAP PO SCH (08:33)
--- NOTE | 2024-04-19 08:33 | P.DS ---
Admission Date: 04/18/24 Discharge Date: 04/19/24 Reason for Admission: CP/Elevated troponin Consultations: Dr. Rossi Brief History of Present Illness: Mr. Paulino is a 63-year-old gentleman with a past medical history of atrial fibrillation, CHF, gout, hypertension, alcoholic pancreatitis, rheumatoid arthritis, CVA, and myocardial infarction. He presented to the emergency department this morning after acute onset of chest pain at 4 AM. Mr. Paulino has been admitted monthly for similar signs and symptoms. He had an echocardiogram in November of this year that showed an ejection fraction of 45 to 50% with mild global hypokinesis. On January 26 admission he was seen by cardiology. The plan is to continue his regular medications and attempt to control symptoms with a stable medication regimen and lifestyle changes. Mr. Paulino states he has not missed any of his medications, he is feeling better after administration of nitro sublingually and 1 aspirin in the emergency department. He does have a mild troponin leak at baseline and CKD. Today's troponin is a little higher than baseline so he will be admitted for observation and serial enzymes. Labs: WBC 6.2, H/H 13.8/43.8, platelets of 191 Transaminase negative, alkaline phosphatase 183, with a total bili of 2.2, direct bili of 0.9, lipase today is normal at 21 Chem-7 with normal electrolytes, creatinine 2.85 which is roughly baseline for patient Troponin today 760.9 Added urine drug screen as patient was cocaine positive in the past Imaging: Lungs clear of acute infiltrate. Heart moderately enlarged Hospital Course: Mr. Paulino did well over the course of his hospitalization. His troponin, creatinine, and blood pressure have trended down. He denies chest pain, nausea, edema, shortness of breath this morning. He was seen by Dr. Rossi and amlodipine was added to his medication regimen. His blood pressure trended down nicely with that addition and he will be discharged with a new prescription for amlodipine. He was encouraged to follow-up with Dr. Rangel and Dr. Rossi in one week. <Aby Andrews - Last Filed: 04/19/24 08:25> Admission Date: 04/18/24 Discharge Date: 04/19/24 Hospital Course: Pt emmett nd examined. I agree with note by the ADVANCE AGENT. His troponin trended down. We added amlodipine for better BP control. Pt was advised to follow up with Dr. Lety vang and Dr. Rossi in clinic. <Jeet Hernandez Bertha - Last Filed: 04/19/24 10:16> Disposition: ROUTINE DISCHARGE Discharge Condition: GOOD Vital Signs/Physical Exam: Temp Pulse Resp BP Pulse Ox 97.4 F 62 18 122/80 97 04/19/24 04:00 04/19/24 05:28 04/19/24 04:00 04/19/24 05:28 04/19/24 04:00 Laboratory Data at Discharge: WBC 4.70 thou/uL (4.3-10.9) 04/19/24 04:07 Hgb 11.9 g/dL (13.6-17.9) L D 04/19/24 04:07 Hct 37.2 % (39.6-49.0) L 04/19/24 04:07 Plt Count 170 thou/uL (152-406) 04/19/24 04:07 Sodium 137 mEq/L (136-145) 04/19/24 04:07 Potassium 4.4 mEq/L (3.5-5.1) 04/19/24 04:07 BUN 46 mg/dL (7-18) H 04/19/24 04:07 Creatinine 2.60 mg/dL (0.70-1.30) H 04/19/24 04:07 Glucose 117 mg/dL (74-106) H 04/19/24 04:07 Magnesium 2.3 mg/dL (1.6-2.4) 04/18/24 07:45 Total Bilirubin 2.2 mg/dL (0.2-1.0) H 04/18/24 07:45 AST 30 U/L (15-37) 04/18/24 07:45 ALT 18 U/L (16-61) 04/18/24 07:45 Alkaline Phosphatase 183 U/L (45-117) H 04/18/24 07:45 Triglycerides 54 mg/dL (<150) 04/18/24 11:30 Cholesterol 109 mg/dL (<200) 04/18/24 11:30 HDL Cholesterol 56 mg/dL (40-60) 04/18/24 11:30 Cholesterol/HDL Ratio 1.95 04/18/24 11:30 Lipase 21 U/L (13-75) 04/18/24 07:45 <Andrews,Aby Saqib - Last Filed: 04/19/24 08:25> Vital Signs/Physical Exam: Temp Pulse Resp BP Pulse Ox 97.4 F 62 18 122/80 97 04/19/24 04:00 04/19/24 05:28 04/19/24 04:00 04/19/24 05:28 04/19/24 04:00 Laboratory Data at Discharge: WBC 4.70 thou/uL (4.3-10.9) 04/19/24 04:07 Hgb 11.9 g/dL (13.6-17.9) L D 04/19/24 04:07 Hct 37.2 % (39.6-49.0) L 04/19/24 04:07 Plt Count 170 thou/uL (152-406) 04/19/24 04:07 Sodium 137 mEq/L (136-145) 04/19/24 04:07 Potassium 4.4 mEq/L (3.5-5.1) 04/19/24 04:07 BUN 46 mg/dL (7-18) H 04/19/24 04:07 Creatinine 2.60 mg/dL (0.70-1.30) H 04/19/24 04:07 Glucose 117 mg/dL (74-106) H 04/19/24 04:07 Magnesium 2.3 mg/dL (1.6-2.4) 04/18/24 07:45 Total Bilirubin 2.2 mg/dL (0.2-1.0) H 04/18/24 07:45 AST 30 U/L (15-37) 04/18/24 07:45 ALT 18 U/L (16-61) 04/18/24 07:45 Alkaline Phosphatase 183 U/L (45-117) H 04/18/24 07:45 Triglycerides 54 mg/dL (<150) 04/18/24 11:30 Cholesterol 109 mg/dL (<200) 04/18/24 11:30 HDL Cholesterol 56 mg/dL (40-60) 04/18/24 11:30 Cholesterol/HDL Ratio 1.95 04/18/24 11:30 Lipase 21 U/L (13-75) 04/18/24 07:45 <Jeet Hernandez - Last Filed: 04/19/24 10:16> Diet: Low sodium Activity: Ad pelon <Aby Andrews - Last Filed: 04/19/24 08:25> <Jeet Hernandez - Last Filed: 04/19/24 10:16> Home Medications: Pantoprazole [Protonix Tab*] 40 mg PO DAILY #30 tab 09/06/21 Amiodarone HCl [Cordarone*] 200 mg PO DAILY 08/22/23 Ferrous Sulfate 325 mg PO DAILY 08/22/23 Isosorbide Dinit [Isordil*] 20 mg PO TID 08/22/23 Atorvastatin Calcium [Lipitor] 40 mg PO BEDTIME 10/13/23 Calcium Acetate [Phoslo] 2 cap PO TIDWM 11/28/23 Dapagliflozin Propanediol [Farxiga] 10 mg PO DAILY 11/28/23 Folic Acid 1 mg PO DAILY 11/28/23 carvediloL [Coreg*] 12.5 mg PO BID 11/28/23 Hydralazine [Apresoline*] 25 mg PO TID #90 tab 12/02/23 Allopurinol 300 mg PO DAILY 30 Days #30 tab 12/07/23 Apixaban [Eliquis] 2.5 mg PO BID 30 Days #60 tab 12/07/23 Vitamin D [Drisdol*] 50,000 unit PO EVERY 7TH DAY 30 Days #4 cap 12/07/23 Amlodipine [Norvasc*] 5 mg PO DAILY #90 tab 04/19/24 Torsemide 10 mg PO DAILY #90 tab 04/19/24 New Medications: Amlodipine [Norvasc*] 5 mg PO DAILY #90 tab Torsemide 10 mg PO DAILY #90 tab Physician Discharge Instructions: Mr. Paulino did well over the course of his hospitalization. His troponin, c reatinine, and blood pressure have trended down. He denies chest pain, nausea, edema, shortness of breath this morning. He was seen by Dr. Rossi and amlodipine was added to his medication regimen. His blood pressure trended down nicely with that addition and he will be discharged with a new prescription for amlodipine. He was encouraged to follow-up with Dr. Rangel and Dr. Rossi in one week. Lifestyle changes recommended. Will decrease Torsemide to 10mg po daily and add the Amlodipine 5mg po daily as blood pressure responded to 120s/70s while holding Torsemide. New Rx: Amlodipine 5mg po daily #90 Reduce dose Torsemide 10mg po daily #90 Continue home medicines as previously prescribed except as above GOAL: Clear understanding of disease process Diet: Renal, low sodium Activity: Ad pelon. INSTRUCTIONS: Physician Discharge Instructions: Okay to DC IV and DC home Follow-up with primary care provider in 1 to 2 weeks Follow-up with Dr. Rossi and Dr. Rangel in 1 to 2-weeks Please call the inpatient unit for any questions or concerns regarding hospital stay Return to the ER for worsening symptoms Followup: Anton Hayes DO [Primary Care Provider] - Ted Rangle MD [ACTIVE - CAN ADMIT] - Leonardo Rossi DO [ACTIVE - CAN ADMIT] -
[2024-04-19] MEDS ORDERED: TORSEMIDE 20 MG TAB PO SCH (09:00)
[2024-04-19 09:28] VITALS: BP 123/77; TEMP 96.8
--- NOTE | 2024-04-21 12:47 | EKG ---
Test Date: 2024-04-18 Test Time: 07:28:05 Trim Technician: LIN MEASUREMENT RESULTS: Intervals: Rate: 85 CA: 242 QRSD: 138 QT: 420 QTc: 499 [place]: P: 82 CA: 242 QRS: -63 T: 98 INTERPRETIVE STATEMENTS: Sinus rhythm with 1st degree AV block with occasional premature ventricular complexes Left axis deviation Left bundle branch block Abnormal ECG Compared to ECG 03/10/2024 22:02:22 Left-axis deviation now present Electronically Signed On 04-21-24 12:41:24 CDT by Ted Rangel
== END 2024-04-19 10:34 | disposition home or self-care (01) ==
LOC: ER 07:15 → ERHOLD 10:24 → 2ND 13:34
PROVIDERS: ADMIT Hospitalist; ATTEND Hospitalist
DX: R07.9 Chest pain, unspecified (principal); R79.89 Other specified abnormal findings of blood chemistry; I10 Essential (primary) hypertension; I50.22 Chronic systolic (congestive) heart failure; I48.91 Unspecified atrial fibrillation; N17.9 Acute kidney failure, unspecified; M10.9 Gout, unspecified; K86.0 Alcohol-induced chronic pancreatitis; M06.9 Rheumatoid arthritis, unspecified; I25.2 Old myocardial infarction; I13.0 Hypertensive heart and chronic kidney disease with heart failure and stage 1 through stage 4 chronic kidney disease, or unspecified chronic kidney disease; E78.5 Hyperlipidemia, unspecified; N18.32 Chronic kidney disease, stage 3b; Z86.73 Personal history of transient ischemic attack (TIA), and cerebral infarction without residual deficits; Z88.0 Allergy status to penicillin; Z79.82 Long term (current) use of aspirin; Z79.01 Long term (current) use of anticoagulants
CPT/HCPCS: 93005; 85025 ×2; 80048 ×2; 36415; 83735; 80061; 80076; 84484 ×4; 83690; 71045; 99285; G0378 ×4

== ENCOUNTER 2024-05-25 13:36 | Emergency (ER) | payer OTHER ==
--- NOTE | 2024-05-25 14:55 | RAD REPORT ---
EXAMINATION: ONE VIEW CHEST XR CLINICAL INDICATION: Male, 63 years old.ABDOMINAL DISTENTION TECHNIQUE: 1 View, AP supine, X-ray of the chest was performed. [id number]. COMPARISON: 05/08/2024 FINDINGS: Lungs and pleura: Clear lungs. No effusion. Heart and mediastinum: Similar cardiomegaly. Unremarkable mediastinal contours. Osseous structures: No acute abnormality. Tubes/lines: None Other: None. IMPRESSION: No acute intrathoracic abnormality. Enlarged cardiopericardial silhouette in part related to a perica rdial effusion.
--- NOTE | 2024-05-25 15:10 | RAD REPORT ---
EXAM: CT CHEST, ABDOMEN AND PELVIS WITHOUT CONTRAST CLINICAL INDICATION: Male, 63 years old ABDOMINAL DISTENTION TECHNIQUE: CT chest, abdomen and pelvis was performed, without IV contrast, as per department protoco l. Axial, sagittal and coronal reconstructions were obtained. One or more of the following dose reduction techniques were used: Automated exposure control, adjustment of the mA and/or kV according to the patient size, and/or iterative reconstruction. Unless otherwise specified, incidental findings do not require dedicated imaging follow-up. [id number]. COMPARISON: 01/26/2024, 10/13/2023 FINDINGS: The lack of intravenous contrast limits the sensitivity of this exam for evaluation of solid visceral organs, vascular structures, and retroperitoneum. Chest: LOWER NECK/CHEST WALL: Visualized thyroid gland and soft tissues are normal. LUNGS AND AIRWAYS: Airways are clear. No evidence of airspace or interstitial process. No nodules. PLEURA: No pleural effusion. No pneumothorax. Hemidiaphragms are normally positioned. MEDIASTINUM AND LYMPH NODES: No mediastinal mass or fluid collection. Normal size mediastinal, hilar, and axillary lymph nodes. THORACIC AORTA: Normal caliber and configuration. PULMONARY ARTERIES: Normal caliber. HEART: Cardiomegaly with moderate pericardial effusion which has increased in size. Abdomen/Pelvis LIVER: Nodular liver contour. GALLBLADDER/BILE DUCTS: No biliary ductal dilatation. PANCREAS: Atrophy. SPLEEN: Normal size. No focal lesion. ADRENALS: Normal; no mass. KIDNEYS AND URETERS: Bilateral renal lesions which are either benign in appearance or too small to ac curately characterize but statistically benign. GASTROINTESTINAL TRACT: Stomach is non-dilated. Small bowel has normal course and caliber. No colonic wall thickening or pericolonic inflammatory changes. PERITONEUM: Moderate volume of ascites which is increased from prior LYMPH NODES: No lymphadenopathy. ABDOMINAL AORTA AND OTHER VESSELS: Normal caliber aorta and IVC. Atherosclerosis. URINARY BLADDER: Normal contour. REPRODUCTIVE ORGANS: No pathologic process. MUSCULOSKELETAL: No acute or suspicious osseous abnormality. ADDITIONAL FINDINGS: None IMPRESSION: 1. Moderate volume of ascites which is increased from prior. This could reflect hepatic decompensatio n. 2. Moderate pericardial effusion which has slightly increased in size.
[2024-05-25 15:56] LABS: Absolute Eosinophils 0.1 K/uL (0-0.5); Absolute Lymphocytes (CBC) 0.7 K/uL (0.7-4.9); Absolute Monocytes 0.4 K/uL (0.1-1.3); Absolute Neutrophil 3.2 K/uL (1.8-8.0); Basophils % 0.5 % (0-1.3); Eosinophils % 2.1 % (0-4.4); Hematocrit 48.4 % (39.6-49.0); Hemoglobin 15.2 g/dL (13.6-17.9); Lymphocytes % 16.2 % (15.3-44.8); MCH 26.1 pg (27.0-35.0); MCHC 31.4 g/dL (32.0-36.0); MCV 83.2 fL (80-100); MPV 10.3 fL (7.6-11.3); Monocytes % 9.7 % (3.3-12.3); Neutrophils % 71.5 % (41.7-73.7); Nucleated Red Blood Cells % 0.2 % (0-0); Platelets 172 thou/uL (152-406); RBC Red Blood Cell Count 5.82 M/uL (4.33-5.43); Red Cell Distribution Width 17.7 % (12.1-15.2)
[2024-05-25] MEDS ORDERED: ONDANSETRON 4 MG/2 ML VIAL ONE ×2 (16:00→19:19)
[2024-05-25] MEDS ORDERED: HYDROMORPHONE HCL 1 MG/ML INJ ONE ×2 (16:00→19:19)
[2024-05-25] MEDS ORDERED: FAMOTIDINE 20 MG/2 ML VIAL IV ONE (16:00)
[2024-05-25 16:01] LABS: PT Prothrombin Time 13.8 SECONDS (9.4-12.5); Protime INR 1.24
[2024-05-25 16:16] LABS: Albumin 3.2 g/dL (3.4-5.0); Albumin/Globulin Ratio 0.7 (1.1-1.8); Anion Gap 13.6 mEq/L (5.0-15.0); Bilirubin Direct 1.1 mg/dL (0-0.2); Bilirubin Indirect, Calculated 1.1 mg/dL (0.2-0.8); Bilirubin Total 2.2 mg/dL (0.2-1.0); Globulin 4.8 g/dL (2.3-3.5); Magnesium 2.2 mg/dL (1.6-2.4); Potassium 4.6 mEq/L (3.5-5.1)
[2024-05-25 16:21] LABS: Troponin High Sensitivity 714.2 pg/mL (<58.9)
[2024-05-25 16:27] LABS: Blood Morphology Comment NOT SEEN (NOT SEEN); Platelet Estimate ADEQ; White Blood Cell Scan OK (OK)
--- NOTE | 2024-05-25 17:05 | ER ---
Nurse's Notes [facility] Name: Natan Paulino Age: 63 yrs Sex: Male : 1960 Arrival Date: 05/25/2024 Time: 13:36 Bed 17 Private MD: Diagnosis: Chest pain, unspecified;Pericardial effusion (noninflammatory)-moderate;Chronic combined systolic (congestive) and diastolic (congestive) heart failure;Other ascites;Other cirrhosis of liver;Acute kidney failure, unspecified-on chronic Presentation: 05/25 14:24 Chief complaint: Patient states: Abdominal pain onset Saturday. Pt reports vomiting. Pt cm10 also reports that all weekend he has had fluid building up in his abdomen. Coronavirus screen: Client denies travel out of the [place] in the last 14 days. Ebola Screen: Patient denies travel to an Ebola-affected area in the 21 days before illness onset. No symptoms or risks identified at this time. Initial Sepsis Screen: Does the patient meet any 2 criteria? No. Patient's initial sepsis screen is negative. Does the patient have a suspected source of infection? No. Patient's initial sepsis screen is negative. Risk Assessment: Do you want to hurt yourself or someone else? Patient reports no desire to harm self or others. Onset of symptoms was May 23, 2024. 14:24 Method Of Arrival: Wheelchair cm10 14:24 Acuity: NINO 3 cm10 Triage Assessment: 14:26 General: Appears in no apparent distress. uncomfortable, Behavior is calm, cooperative. cm10 Neuro: No deficits noted. Level of Consciousness is awake, alert, obeys commands, Oriented to person, place, time, situation, Appropriate for age. Respiratory: No deficits noted. Airway is patent Respiratory effort is even, unlabored, Respiratory pattern is regular, symmetrical. GI: Abdomen is distended, Reports lower abdominal pain, upper abdominal pain, bloating, vomiting. Historical: - Allergies: 14:25 PENICILLINS; cm10 - PMHx: 14:25 Atrial fibrillation; CHF; Gout; Hypertension; Myocardial infarction; osteoarthritis; cm10 Pancreatitis; Rheumatoid Arthritis; stroke; TIA; Kidney disease; - PSHx: 14:25 heart stent; finger; Stented artery; cm10 - Immunization history:: Adult Immunizations up to date. - Infectious Disease History:: Denies. - Social history:: Smoking status: Patient denies any tobacco usage or history of. - Family history:: not pertinent. Screenin:[facility] ED Fall Risk Assessment (Adult) History of falling in the last 3 months, kc6 including since admission No falls in past 3 months (0 pts) Confusion or Disorientation No (0 pts) Intoxicated or Sedated No (0 pts) Impaired Gait Yes (1 pt) Mobility Assist Device Used Yes (1 pt) Altered Elimination No (0 pt) Score/Fall Risk Level 0 - 2 = Low Risk Oriented to surroundings. Abuse screen: Denies threats or abuse. Denies injuries from another. Nutritional screening: No deficits noted. Tuberculosis screening: No symptoms or risk factors identified. Assessment: 16:06 General: Appears in no apparent distress. uncomfortable, well groomed, well developed, kc6 Behavior is calm, cooperative, appropriate for age. Pain: Complains of pain in abdomen Pain currently is 10 out of 10 on a pain scale. Neuro: Level of Consciousness is awake, alert, obeys commands, Oriented to person, place, time, situation, Appropriate for age. Cardiovascular: Capillary refill < 3 seconds. Respiratory: Airway is patent Trachea midline Respiratory effort is even, unlabored, Respiratory pattern is regular, symmetrical. GI: Abdomen is round distended, noted to have ascites, Bowel sounds present X 4 quads. Abdomen is tender to palpation X 4 quads. Abd is rigid X 4 quads. Patient currently denies diarrhea, nausea, vomiting. : No signs and/or symptoms were reported regarding the genitourinary system. EENT: No signs and/or symptoms were reported regarding the EENT system. Derm: No signs and/or symptoms reported regarding the dermatologic system. Skin is intact, is healthy with good turgor, Skin is pink, warm \T\ dry. Musculoskeletal: No signs and/or symptoms reported regarding the musculoskeletal system. Circulation, motion, and sensation intact. Capillary refill < 3 seconds, Range of motion: intact in all extremities. 17:48 Reassessment: Patient appears in no apparent distress at this time. No changes from kc6 previously documented assessment. Patient and/or family updated on plan of care and expected duration. Pain level reassessed. Patient is alert, oriented x 3, equal unlabored respirations, skin warm/dry/pink. 18:55 Reassessment: Patient appears in no apparent distress at this time. No changes from kc6 previously documented assessment. Patient and/or family updated on plan of care and expected duration. Pain level reassessed. Patient is alert, oriented x 3, equal unlabored respirations, skin warm/dry/pink. 19:29 General: Appears in no apparent distress. Behavior is calm, cooperative, appropriate rg5 for age. Pain: Complains of pain in abdomen Pain currently is 10 out of 10 on a pain scale. Quality of pain is described as aching. Neuro: Level of Consciousness is awake, alert, obeys commands, Oriented to person, place, time. Cardiovascular: Patient's skin is warm and dry. Rhythm is sinus rhythm. Respiratory: Airway is patent Trachea midline Respiratory effort is even, Respiratory pattern is regular, symmetrical. GI: Abdomen is round distended, noted to have ascites, Bowel sounds present X 4 quads. Abdomen is tender to palpation X 4 quads. Abd is rigid X 4 quads. : No signs and/or symptoms were reported regarding the genitourinary system. EENT: No deficits noted. Derm: Skin is intact, is healthy with good turgor, Skin is dry, Skin is normal, Skin temperature is warm. Musculoskeletal: Circulation, motion, and sensation intact. Range of motion: intact in all extremities. 20:20 Reassessment: Patient and/or family updated on plan of care and expected duration. Pain rg5 level reassessed. Patient is alert, oriented x 3, equal unlabored respirations, skin warm/dry/pink. Patient states feeling better. Vital Signs: 14:24 BP 128 / 94; Pulse 83; Resp 16; Temp 97.6; Pulse Ox 100% on R/A; Weight 88.45 kg; cm10 Height 6 ft. 3 in. ; Pain 10/10; 16:08 BP 142 / 107; Pulse 81; Resp 18 S; Pulse Ox 95% on R/A; kc6 17:48 BP 128 / 107; Pulse 80; Resp 18 S; Pulse Ox 100% on R/A; kc6 18:55 BP 137 / 105; Pulse 75; Resp 16 S; Pulse Ox 95% on R/A; kc6 19:29 BP 134 / 107; Pulse 60; Resp 19; Temp 98; Pulse Ox 98% on R/A; Pain 10/10; rg5 20:34 BP 144 / 100; Pulse 67; Resp 17; Pulse Ox 97% on R/A; Pain 5/10; rg5 14:24 Body Mass Index 24.37 (88.45 kg, 190.5 cm) cm10 14:24 Pain Scale: Adult cm10 19:29 Pain Scale: Adult rg5 20:34 Pain Scale: Adult rg5 [place] Coma Score: 16:57 Eye Response: spontaneous(4). Motor Response: obeys commands(6). Verbal Response: deejay oriented(5). Total: 15. ED Course: 13:39 Patient arrived in ED. sj2 13:40 Brandon Masterson MD is Attending Physician. deejay 14:25 Triage completed. cm10 14:26 Arm band placed on Patient placed in waiting room. cm10 14:45 XRAY Chest (1 view) In Process Unspecified. EDMS 14:48 CT Chest Abdomen Pelvis W/O Contrast In Process Unspecified. EDMS 15:24 Sita Carrillo RN is Primary Nurse. kc6 15:49 Inserted saline lock: 22 gauge in right wrist, using aseptic technique. Blood kc6 collected. Flushed with 10 mL NS. Patient maintains SpO2 saturation greater than 95% on room air. 16:06 Patient has correct armband on for positive identification. Placed in gown. Bed in low kc6 position. Call light in reach. Side rails up X2. pcmh specialist on. Pulse ox on. NIBP on. Door closed. Noise minimized. Lights dimmed. Warm blanket given. Pillow given. 17:[address] [facility]. bd 19:03 Report given to RADHIKA Walters. kc6 19:33 transfer approval from receiving facility. rg5 19:33 Provided Education on: need for transfer. rg5 19:33 No provider procedures requiring assistance completed. rg5 20:36 Patient transferred, IV remains in place. intact, bleeding controlled, No rg5 redness/swelling at site. Administered Medications: 16:05 Drug: HYDROmorphone IVP 1 mg IVP once Route: IVP; Site: right forearm; kc6 17:48 Follow up: Response: No adverse reaction; Pain is decreased kc6 16:06 Drug: Famotidine IVP 20 mg IVP once; dilute with 10 mL 0.9% NaCl; give over 2 minutes kc6 Route: IVP; Site: right antecubital; 17:47 Follow up: Response: No adverse reaction kc6 16:06 Drug: Ondansetron IVP 4 mg IVP once; over 2 minutes Route: IVP; Site: right forearm; kc6 17:48 Follow up: Response: No adverse reaction kc6 19:20 Drug: HYDROmorphone IVP 1 mg IVP once Route: IVP; Site: right hand; rg5 20:37 Follow up: Response: No adverse reaction; Pain is decreased rg5 19:20 Drug: Ondansetron IVP 4 mg IVP once; over 2 minutes Route: IVP; Site: left hand; rg5 20:36 Follow up: Response: No adverse reaction rg5 19:29 Drug: Furosemide IVP 40 mg IVP once; give over 2 minutes Route: IVP; Site: right hand; rg5 20:37 Follow up: Response: No adverse reaction; Pain is decreased rg5 Medication: 19:33 VIS not applicable for this client. rg5 Outcome: 17:04 ER care complete, transfer ordered by MD. villalba 20:35 Transferred by ground EMS to [facility], [facility] [place], rg5 20:35 Condition: stable 20:35 Discharge instructions given to EMS, 20:49 Patient left the ED. rg5 Signatures: Dispatcher [employer] EDMS Leola Zapien Corey, MD MD cha Campbell, Kaitlyn, RN RN kc6 Joi Emmanuel RN RN cm10 Romeo Green RN RN rg5 Nuris Ragsdale 2 Corrections: (The following items were deleted from the chart) 17:48 16:08 BP 142 / 107; Pulse 81bpm; Resp 18bpm; Spontaneous; Pulse Ox 15% RA; kc6 kc6
--- NOTE | 2024-05-25 17:05 | EDPHYS ---
Physician Documentation [facility] Name: Natan Paulino Age: 63 yrs Sex: Male : 1960 Arrival Date: 05/25/2024 Time: 13:36 Bed 17 Private MD: CATALINO Physician Brandon Masterson HPI: 05/25 16:57 This 63 yrs old Black Male presents to ER via Wheelchair with complaints of Abdominal deejay Pain, EXCESS FLUID-CHRONIC KIDNEY DISEASE. 16:57 The patient or guardian reports chest pain that is located primarily in the substernal deejay area. Onset: 2 day(s) ago. The patient presents with abdominal pain abdominal distention in the upper abdomen, in the lower abdomen. Onset: The symptoms/episode began/occurred 2 day(s) ago. The pain does not radiate. The symptoms do not radiate. Associated signs and symptoms: Pertinent positives: nausea, vomiting. Modifying factors: The symptoms are alleviated by nothing, the symptoms are aggravated by nothing. The chest pain is described as aching. Historical: - Allergies: 14:25 PENICILLINS; cm10 - PMHx: 14:25 Atrial fibrillation; CHF; Gout; Hypertension; Myocardial infarction; osteoarthritis; cm10 Pancreatitis; Rheumatoid Arthritis; stroke; TIA; Kidney disease; - PSHx: 14:25 heart stent; finger; Stented artery; cm10 - Immunization history:: Adult Immunizations up to date. - Infectious Disease History:: Denies. - Social history:: Smoking status: Patient denies any tobacco usage or history of. - Family history:: not pertinent. ROS: 16:57 Constitutional: Negative for fever, chills, and weight loss, Eyes: Negative for injury, deejay pain, redness, and discharge, ENT: Negative for injury, pain, and discharge, Neck: Negative for injury, pain, and swelling, Cardiovascular: Negative for chest pain, palpitations, and edema, Respiratory: Negative for shortness of breath, cough, wheezing, and pleuritic chest pain, Back: Negative for injury and pain, : Negative for injury, bleeding, discharge, and swelling, MS/Extremity: Negative for injury and deformity, Skin: Negative for injury, rash, and discoloration, Neuro: Negative for headache, weakness, numbness, tingling, and seizure, Psych: Negative for depression, anxiety, suicide ideation, homicidal ideation, and hallucinations, Allergy/Immunology: Negative for hives, rash, and allergies, Endocrine: Negative for neck swelling, polydipsia, polyuria, polyphagia, and marked weight changes, Hematologic/Lymphatic: Negative for swollen nodes, abnormal bleeding, and unusual bruising, 16:57 Abdomen/GI: Positive for abdominal pain, nausea, vomiting, Exam: 16:57 Constitutional: This is a well developed, well nourished patient who is awake, alert, deejay and in no acute distress. Head/Face: Normocephalic, atraumatic. Eyes: Pupils equal round and reactive to light, extra-ocular motions intact. Lids and lashes normal. Conjunctiva and sclera are non-icteric and not injected. Cornea within normal limits. Periorbital areas with no swelling, redness, or edema. ENT: Nares patent. No nasal discharge, no septal abnormalities noted. Tympanic membranes are normal and external auditory canals are clear. Oropharynx with no redness, swelling, or masses, exudates, or evidence of obstruction, uvula midline. Mucous membranes moist. Neck: Trachea midline, no thyromegaly or masses palpated, and no cervical lymphadenopathy. Supple, full range of motion without nuchal rigidity, or vertebral point tenderness. No Meningismus. Chest/axilla: Normal chest wall appearance and motion. Nontender with no deformity. No lesions are appreciated. Cardiovascular: Regular rate and rhythm with a normal S1 and S2. No gallops, murmurs, or rubs. Normal PMI, no JVD. No pulse deficits. Respiratory: Lungs have equal breath sounds bilaterally, clear to auscultation and percussion. No rales, rhonchi or wheezes noted. No increased work of breathing, no retractions or nasal flaring. Back: No spinal tenderness. No costovertebral tenderness. Full range of motion. Male : Normal genitalia with no discharge or lesions. Skin: Warm, dry with normal turgor. Normal color with no rashes, no lesions, and no evidence of cellulitis. MS/ Extremity: Pulses equal, no cyanosis. Neurovascular intact. Full, normal range of motion. Neuro: Awake and alert, GCS 15, oriented to person, place, time, and situation. Cranial nerves II-XII grossly intact. Motor strength 5/5 in all extremities. Sensory grossly intact. Cerebellar exam normal. Normal gait. Psych: Awake, alert, with orientation to person, place and time. Behavior, mood, and affect are within normal limits. 16:57 ECG was reviewed by the Attending Physician. 16:57 Abdomen/GI: Inspection: distension, Bowel sounds: active, Palpation: mild abdominal tenderness, moderate abdominal tenderness, in the right upper quadrant and left upper quadrant, Liver: no appreciated palpable abnormalities, Hernia: not appreciated, Vital Signs: 14:24 BP 128 / 94; Pulse 83; Resp 16; Temp 97.6; Pulse Ox 100% on R/A; Weight 88.45 kg; cm10 Height 6 ft. 3 in. ; Pain 10/10; 16:08 BP 142 / 107; Pulse 81; Resp 18 S; Pulse Ox 95% on R/A; kc6 17:48 BP 128 / 107; Pulse 80; Resp 18 S; Pulse Ox 100% on R/A; kc6 18:55 BP 137 / 105; Pulse 75; Resp 16 S; Pulse Ox 95% on R/A; kc6 19:29 BP 134 / 107; Pulse 60; Resp 19; Temp 98; Pulse Ox 98% on R/A; Pain 10/10; rg5 20:34 BP 144 / 100; Pulse 67; Resp 17; Pulse Ox 97% on R/A; Pain 5/10; rg5 14:24 Body Mass Index 24.37 (88.45 kg, 190.5 cm) cm10 14:24 Pain Scale: Adult cm10 19:29 Pain Scale: Adult rg5 20:34 Pain Scale: Adult rg5 [place] Coma Score: 16:57 Eye Response: spontaneous(4). Motor Response: obeys commands(6). Verbal Response: deejay oriented(5). Total: 15. MDM: 13:40 Patient medically screened. deejay 17:00 Differential diagnosis: abnormal EKG, acute pericarditis, anxiety, congestive heart deejay failure costochondritis, esophagitis, herpes zoster, pancreatitis, peptic ulcer disease, pericarditis, thoracic aortic disection, bowel obstruction, gastritis, Hepatitis, non-specific abd pain, Ureterolithiasis, urinary tract infection. HEART Score: History: Slightly Suspicious (0), ECG: Non specific repolarization disturbance / LBTB / PM (1), Age: > or = 65 years (2), Risk Factors: > or = 3 Risk factors for atherosclerotic disease (2), [Hypercholesterolemia] [Hypertension] [+ Family HX] Troponin: > or = 3 x Normal Limit (2), Total Score = 5. The patient was given aspirin in the Emergency Department. Data reviewed: vital signs, nurses notes, EMS record, lab test result(s), EKG, radiologic studies, CT scan, plain films. Consideration of Admission/Observation Escalation of care including admission/observation considered. I considered the following discharge prescriptions or medication management in the emergency department Medications were administered in the Emergency Department. See MAR. Independent interpretation of the following test(s) in the Emergency Department EKG: See my EKG interpretation above. Test considered but Not performed: Ultrasound no 2 d echo. Care significantly affected by the following chronic conditions: Hypertension, Congestive Heart Failure, Obesity, Chronic Kidney Disease, Liver Disease. Counseling: I had a detailed discussion with the patient and/or guardian regarding the historical points, exam findings, and any diagnostic results supporting the discharge/admit diagnosis, the presence of at least one elevated blood pressure reading (>120/80) during this emergency department visit, lab results, the need to transfer to another facility, for higher level of care, [facility] does not immediately have the required specialist. 05/25 14:24 Order name: Basic Metabolic Panel; Complete Time: 16:50 [facility] 05/25 14:24 Order name: CBC with Diff; Complete Time: 16:50 [facility] 05/25 14:24 Order name: LFT's; Complete Time: 16:50 [facility] 05/25 14:24 Order name: Magnesium; Complete Time: 16:50 [facility] 05/25 14:24 Order name: NT PRO-BNP; Complete Time: 16:50 [facility] 05/25 14:24 Order name: PT-INR; Complete Time: 16:50 [facility] 05/25 14:24 Order name: Troponin HS; Complete Time: 16:50 [facility] 05/25 14:24 Order name: AMMONIA; Complete Time: 16:50 [facility] 05/25 14:24 Order name: Lipase; Complete Time: 16:50 [facility] 05/25 16:28 Order name: CBC Smear Scan; Complete Time: 16:50 EDMS 05/25 14:24 Order name: XRAY Chest (1 view); Complete Time: 15:56 [facility] 05/25 14:24 Order name: CT Chest Abdomen Pelvis W/O Contrast; Complete Time: 15:56 [facility] 05/25 14:24 Order name: EKG; Complete Time: 14:25 [facility] 05/25 14:24 Order name: Cardiac monitoring; Complete Time: 15:49 [facility] 05/25 14:24 Order name: EKG - Nurse/Tech; Complete Time: 15:49 [facility] 05/25 14:24 Order name: IV Saline Lock; Complete Time: 15:49 [facility] 05/25 14:24 Order name: Labs collected and sent; Complete Time: 15:49 [facility] 05/25 14:24 Order name: O2 Per Protocol; Complete Time: 15:49 [facility] 05/25 14:24 Order name: O2 Sat Monitoring; Complete Time: 15:49 [facility] EC:57 Rate is 81 beats/min. Rhythm is regular. QRS [place] is Normal. UT interval is normal. QRS deejay interval is normal. QT interval is normal. No Q waves. T waves are Normal. No ST changes noted. Clinical impression: NSR w/ Non-specific ST/T Changes and No evidence of ischemia. Interpreted by me. Reviewed by me. Administered Medications: 16:05 Drug: HYDROmorphone IVP 1 mg IVP once Route: IVP; Site: right forearm; kc6 17:48 Follow up: Response: No adverse reaction; Pain is decreased kc6 16:06 Drug: Famotidine IVP 20 mg IVP once; dilute with 10 mL 0.9% NaCl; give over 2 minutes kc6 Route: IVP; Site: right antecubital; 17:47 Follow up: Response: No adverse reaction kc6 16:06 Drug: Ondansetron IVP 4 mg IVP once; over 2 minutes Route: IVP; Site: right forearm; kc6 17:48 Follow up: Response: No adverse reaction kc6 19:20 Drug: HYDROmorphone IVP 1 mg IVP once Route: IVP; Site: right hand; rg5 20:37 Follow up: Response: No adverse reaction; Pain is decreased rg5 19:20 Drug: Ondansetron IVP 4 mg IVP once; over 2 minutes Route: IVP; Site: left hand; rg5 20:36 Follow up: Response: No adverse reaction rg5 19:29 Drug: Furosemide IVP 40 mg IVP once; give over 2 minutes Route: IVP; Site: right hand; rg5 20:37 Follow up: Response: No adverse reaction; Pain is decreased rg5 Disposition Summary: 05/25/24 17:04 Transfer Ordered Notes: Transfer Location: [facility] deejay Reason: Higher level of care deejay Condition: Fair deejay Problem: new deejay Symptoms: have improved deejay Accepting Physician: to [facility](05/25/24 20:49) rg5 Diagnosis - Chest pain, unspecified deejay - Pericardial effusion (noninflammatory) - moderate deejay - Chronic combined systolic (congestive) and diastolic (congestive) heart failure deejay - Other ascites deejay - Other cirrhosis of liver deejay - Acute kidney failure, unspecified - on chronic deejay Forms: - Medication Reconciliation Form deejay - SBAR form deejay Signatures: Dispatcher [employer] EDMS Brandon Masterson MD MD cha Campbell, Kaitlyn RN RN kc6 Joi Emmanuel RN RN cm10 Romeo Green RN RN rg5 Corrections: (The following items were deleted from the chart) 14:25 14:25 BASIC METABOLIC PANEL+C.LAB.BRZ ordered. EDMS EDMS 14:25 14:25 CBC+H.LAB.BRZ ordered. EDMS EDMS 14:25 14:25 HEPATIC FUNCTION+C.LAB.BRZ ordered. EDMS EDMS 14:25 14:25 MAGNESIUM+C.LAB.BRZ ordered. EDMS EDMS 14:25 14:25 PROBNP+C.LAB.BRZ ordered. EDMS EDMS 14:25 14:25 PROTIME (+INR)+COAG.LAB.BRZ ordered. EDMS EDMS 14:25 14:25 Troponin High Sensitivity+C.LAB.BRZ ordered. EDMS EDMS 14:25 14:25 AMMONIA+C.LAB.BRZ ordered. EDMS EDMS 14:25 14:25 Urinalysis+U.LAB.BRZ ordered. EDMS EDMS 14:25 14:25 LIPASE+C.LAB.BRZ ordered. EDMS EDMS 17:05 17:04 to [facility] deejay deejay 17:05 17:04 Chronic kidney disease, stage 5 deejay deejay 20:49 17:05 to [facility] deejay rg5
[2024-05-25] MEDS ORDERED: FUROSEMIDE 40 MG/4 ML VIAL ONE (19:19)
[2024-05-25 22:40] VITALS: TEMP 98
[2024-05-25 22:42] VITALS: BP 144/100; O2SAT 97
--- NOTE | 2024-05-26 12:28 | EKG ---
Test Date: 2024-05-25 Test Time: 15:33:05 [employer] Gre[employer]: TORRES MEASUREMENT RESULTS: Intervals: Rate: 81 KS: 248 QRSD: 142 QT: 430 QTc: 499 [place]: P: 83 KS: 248 QRS: -67 T: 92 INTERPRETIVE STATEMENTS: Sinus rhythm with 1st degree AV block Left axis deviation Left bundle branch block Abnormal ECG Compared to ECG 05/08/2024 08:56:16 Atrial premature complex(es) no longer present Electronically Signed On 05-26-24 12:25:55 CDT by Ted Rangel
== END 2024-05-25 20:49 | disposition short-term general hospital (02) ==
LOC: ER 13:36
DX: I31.39 Other pericardial effusion (noninflammatory) (principal); I50.42 Chronic combined systolic (congestive) and diastolic (congestive) heart failure; R18.8 Other ascites; K74.69 Other cirrhosis of liver; I12.9 Hypertensive chronic kidney disease with stage 1 through stage 4 chronic kidney disease, or unspecified chronic kidney disease; N18.9 Chronic kidney disease, unspecified; N17.9 Acute kidney failure, unspecified; I48.91 Unspecified atrial fibrillation
CPT/HCPCS: 93005; 85025; 80048; 36415; 82140; 83735; 85610; 80076; 84484; 83690; 83880; 71250; 74176; 71045; 99285; J1940; J1170 ×2; J2405 ×2

== ENCOUNTER 2024-07-23 15:31 | Inpatient (IN) | payer OTHER ==
[2024-07-27 19:49] VITALS: BMI 25.4
[2024-07-27] MEDS: OXYCODONE HCL 5 MG TAB PO PRN (21:31)
[2024-07-27] MEDS ORDERED: ACETAMINOPHEN 500 MG TAB PO PRN (22:16)
[2024-07-27] MEDS ORDERED: BISACODYL 10 MG RECTAL SUPP PR PRN (22:18)
[2024-07-27] MEDS ORDERED: METHYL SALICYLATE/MENTHOL 3 OZ TUBE TOP PRN (22:19)
[2024-07-27] MEDS ORDERED: SIMETHICONE 80 MG CHEWABLE TAB PO PRN (22:22)
[2024-07-28] MEDS ORDERED: HEPARIN 5000 UNIT/ML 1 ML VIAL SQ SCH (01:00)
[2024-07-28 03:57] LABS: Renal Epithelial <5 /HPF (None Seen); Specific Gravity 1.019 (1.005-1.030); Sqamous Epithelial <5 /HPF (None Seen); Urine Bacteria None Seen /HPF (<20); Urine Bilirubin 1+ (Negative); Urine Blood Trace (Negative); Urine Clarity Extremely Turbid (Clear); Urine Color Yellow (Yellow); Urine Culture Reflex Order NOT NEEDED; Urine Glucose NEGATIVE (Negative); Urine Ketones NEGATIVE (Negative); Urine Micro Reflex YN NO BILL MICROSCOPIC; Urine Mucus Slight /HPF (None Seen); Urine Nitrite NEGATIVE (Negative); Urine Protein 2+ (Negative); Urine RBC <5 /HPF (None Seen); Urine Urobilinogen 1+ (Normal); Urine WBC <5 /HPF (<5); Urine WBC Clump Rare /HPF (None Seen); Urine pH 5.5 (5.0-7.0)
[2024-07-28 06:06] LABS: Absolute Lymphocytes (CBC) 1.5 K/uL (0.7-4.9); Absolute Neutrophil 7.6 K/uL (1.8-8.0); Basophils % 0.4 % (0-1.3); Eosinophils % 0.3 % (0-4.4); Hematocrit 31.2 % (39.6-49.0); Hemoglobin 10.6 g/dL (13.6-17.9); Lymphocytes % 14.7 % (15.3-44.8); MCH 32.2 pg (27.0-35.0); MCHC 33.9 g/dL (32.0-36.0); MCV 94.8 fL (80-100); MPV 8.3 fL (7.6-11.3); Monocytes % 9.4 % (3.3-12.3); Neutrophils % 75.2 % (41.7-73.7); Nucleated Red Blood Cells % 0.1 % (0-0); Platelets 203 thou/uL (152-406); Red Cell Distribution Width 21.6 % (12.1-15.2)
[2024-07-28 06:21] LABS: Albumin 2.7 g/dL (3.4-5.0); Anion Gap 9.4 mEq/L (5.0-15.0); Potassium 4.4 mEq/L (3.5-5.1); Prealbumin 30.4 mg/dL (20-40)
[2024-07-28] MEDS: INSULIN REGULAR (HUMAN) 100 UNIT/ML SQ SCH (06:50)
[2024-07-28] MEDS: FLU (Fluarix Triv) TS24-25(6MOS UP)/PF 45 MCG/0.5 ML Syringe IM ONE (07:15)
[2024-07-28] MEDS ORDERED: POLYETHYL GLY 3350 17 GM/DOSE PO SCH (08:00)
[2024-07-28] MEDS: PNEUMOCOCCAL VACCINE 0.5 ML IMVAC ONE (08:00)
[2024-07-28] MEDS: DOCUSATE NA/SENNA CONC 1 TAB PO SCH (08:00)
[2024-07-28] MEDS: METOPROLOL XL 25 MG TAB PO SCH (08:00)
[2024-07-28] MEDS ORDERED: METOPROLOL XL 25 MG TAB PO SCH (08:00)
[2024-07-28] MEDS: SACUBITRIL PO SCH (08:00)
[2024-07-28] MEDS: AMIODARONE HCL 200 MG TAB PO SCH (08:00)
[2024-07-28] MEDS: VALSARTAN PO SCH (08:00)
[2024-07-28] MEDS: PANTOPRAZOLE 40MG TABLET PO SCH (08:45)
[2024-07-28] MEDS: FOLIC ACID 1 MG TABLET PO SCH (08:46)
[2024-07-28] MEDS: ASPIRIN 81 MG CHEWABLE TABLET PO SCH (08:46)
[2024-07-28] MEDS: predniSONE 20 MG TAB PO SCH (08:47)
[2024-07-28] MEDS: POLYETHYL GLY 3350 17 GM/DOSE PO SCH (08:51)
[2024-07-28] MEDS: NEPRO SHAKE 237 ML CAN PO SCH (08:51)
[2024-07-28] MEDS: INSULIN GLARGINE 100 UNIT/ML SQ SCH (08:52)
[2024-07-28] MEDS: BUMETANIDE 1 MG TABLET PO SCH (08:53)
[2024-07-28 09:12] LABS: Anisocytosis 1+; Blood Morphology Comment NOTED (NOT SEEN); Microcytosis SLIGHT; Platelet Estimate ADEQ; White Blood Cell Scan OK (OK)
[2024-07-28 09:13] LABS: Burr Cells 1+
[2024-07-28] MEDS: LIDOCAINE 4% PATCH TOP SCH (11:19)
[2024-07-28 13:49] LABS: HBsAG Nonreactive Report Report; Hepatitis B Surface Ab - Quant 78.33 mIU/mL (<8.0); Hepatitis B surface AG Interp. Nonreactive (Nonreactive)
[2024-07-28] MEDS ORDERED: NA CHLORIDE 0.9% 1,000 ML IV PRN (14:00)
[2024-07-28] MEDS ORDERED: ALBUMIN HUMAN 25% 50 ML IV SCH (14:00)
[2024-07-28] MEDS ORDERED: MANNITOL 25% 12.5 GM/50 ML VIAL IV PRN (14:00)
[2024-07-28] MEDS: MIDODRINE HCL 5 MG TABLET PO PRN (14:31)
[2024-07-28] MEDS: methocarbamoL 500 MG TAB PO PRN (14:34)
[2024-07-28] MEDS ORDERED: D10W 125 ML IV PRN (16:09)
[2024-07-28] MEDS ORDERED: GLUCAGON 1 MG/VIAL IM PRN (16:09)
[2024-07-28] MEDS: SACUBITRIL/VALSARTAN 24/26 MG TAB PO SCH (20:24)
[2024-07-28] MEDS: HEPARIN 5000 UNIT/ML 1 ML VIAL SQ SCH (20:24)
[2024-07-28] MEDS: ATORVASTATIN 40 MG TAB PO SCH (20:24)
[2024-07-28] MEDS: MELATONIN 3 MG TABLET PO SCH (20:25)
[2024-07-28] MEDS: CODEINE 30MG/APAP 300MG TAB PO PRN (20:29)
--- NOTE | 2024-07-28 21:42 | P.CNS ---
Date of Consult: 07/28/24 Reason for Consult: BRIDGER/ CKD Requesting Physician: Vineet Ac Chief Complaint: Weakness History of Present Illness: 64 yo BM CKD, HTN admitted to [facility] two months ago with an acute OK and subsequent CMP with an EF ~10%. He initially required CRRT and is now on intermittent HD. He was seen and examined on HD today. Discharge diagnosis: Principal Problem: Acute on chronic systolic (congestive) heart failure (HCC) s/p Impella 5.5 (06/15) Active Problems: Pericardial effusion BRIDGER (acute kidney injury) (HCC) NICM (nonischemic cardiomyopathy) (HCC) Cardiogenic shock (HCC) Acute respiratory insufficiency Acute blood loss anemia Thrombocytopenia (HCC) Hyperglycemia Metabolic acidosis Symptomatic anemia ESRD (end stage renal disease) on dialysis (HCC) Possible sarcoidosis Epistaxis Pre DM Steroid induced hyperglycemia Esophageal ulcer Esophagitis Upper GI bleed/Hematemesis Thrombocytopenia Sacral wounds Physical deconditioning Mechanical fall Procedures/Imagin. Paracentesis 2. EGD 3. Cardiac cath 4. RV biopsy 5. IABP placement 6. Liver biopsy 7. Impella 5.5 placement 06/15, IABP removed. Intubated for procedure 8. L Axillary-subclavian stent placement 07/04 9. TDC placement 07/06 10. Impella removal 07/[address] head 07/21 -No evidence of skull fracture or intracranial hemorrhage. 12. Right wrist xray - No acute fracture or dislocation. Probable old trauma or infection to the ulnar styloid. 13. Right knee Xray - Severe degenerative changes are noted in the right knee. No acute fracture or dislocation. Small to moderate joint effusion. Posterior soft tissue calcifications. Vascular calcifications Hospital course: Natan Paulino is a 63 y.o. male PMHx HFrEF <20%, moderate TR, dilated nonischemic cardiomyopathy, HTN, HLD, persistent A-fib/history of mural thrombus LV, chronic hep C, cirrhosis, alcohol induced pancreatitis, CKD 4, history of CVA, who was transferred here from OSH because of elevated troponin and moderate pericardial effusion noted on CT, BRIDGER, heart failure exacerbation, and decompensated cirrhosis. Echo showed small pericardial effusion, no intervention needed he was diiuresed with IV bumex. 05/28 he had 2 episodes of hematemesis and abdominal pain with stable hgb and EGD showing esophagitis and clean-based esophageal ulcer with recent stigmata of bleeding. Started on carafate and PPI 05/31 he developed NSTEMI and was transferred to CCU for cardiogenic shock. He was started on dobutamine and epinephrine. Suspected cause is possible myocarditis vs sarcoidosis. He received IVIG and high dose steroids 06/03-06/07. 06/04 IABP placed, replaced with axillary IABP 06/08. Complete heart block and ventricular escape on 06/02/2024 with Screw in MDT pacing lead placed 06/02. He had likely cardiorenal BRIDGER with poor UOP, so bumex drip started 06/03 and transitioned to IVP bumex. Had SLED to remove gadolinium 06/04 from cardiac MRI. Patient worked up for LVAD. Rheumatology consulted for possible sarcoid. Heparin drip for LV thrombus changed to bilavirudin for downtrending PLTs. HIT antibody negative so switched back to heparin drip but later stopped due to oozing from IABP site. Restarted heparin 06/13. Weaned off epinephrine and bumex drips on 06/11. Liver biopsy done 06/10 - pathology showed chronic cardiac congestive hepatopathy, stage 2 fibrosis (no cirrhosis), cleared for LVAD from hepatology stand point Heparin stopped and IABP removed 06/15 for migration. Impella 5.5 placed 06/15 as a bridge to LVAD with inotropic support (Epi and Dobutamine) and vasopressin. Patient intubated for the procedure and remained intubated after he developed sustained Vtach during attempted SBT. He was extubated 06/17. Hgb dropped <8 on 06/16, transfused 3 PRBC, 1 PLT. GI consulted again for possible GIB however recommended against EGD, no overt signs of GI bleed. Drops in hemoglobin thought due to chest wall hematoma. Attempts at restarting heparin drip were unsuccessful due to recurrent drops in hemoglobin and chest hematoma expansion. He remained off heparin drip. 06/30 initiated on UNDERCOVER COP due to volume overload. Intermittent sessions since then with improving leg discomfort and swelling. Plan for TDC and will switch to iHD once off Impella. 07/03 R axillary impella site oozing and expanding left chest wall hematoma. 07/04 CTA showing suspected L axillary/subclavian pseudoaneursym with contrast extravasation. S/p L Axillary-subclavian stent placement 07/04. 07/05 started on impella and dobutamine weaning. Declined for LVAD due to CKD 5 necessitating initiation on HD. 07/09 Impella removed. Started on iHD 07/10: off dobutamine drip 07/11: transferred out of ICU. Tolerating iHD 07/14/27: started GDMT 07/21 had a fall overnight (negative CT head, Xrays right wrist and knee negative for fractures) Denied IPR which was appealed. Patient later approved for IPR. Cleared for discharge by all consultants. CM assisted with arranging outpatient HD (difficulty due to patient initially being considered for LVAD and requiring lifevest). HD arrangements still pending at the time of discharge to inpatient rehab. Cardiogenic shock NSTEMI, type II Myocarditis Sarcoiditis Acute Chronic systolic heart failure HFrEF EF < 15% Mild/mod tricuspid regurgitation Nonischemic cardiomyopathy HTN - Troponin peak > 60k, type II OK - TTE - EF < 15%, All of the LV segments are severely hypokinetic. Global LV systolic function severely reduced. Severe tricuspid regurgitation - S/p cardiac cath on 06/01 - normal coronary arteries - RV Biopsy 06/02/24 - no signs of Neutro/eosinophiles or granulomatous dx. Findings are consistent with prior/recent episode of myocarditis. 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 No definite evidence of amyloidosis - Strict I's and O's, daily weights, fluid restriction, low-sodium diet - advanced HF/Transplant cardiology consulted - weaned off epinephrine 06/11. Bumex drip switched to IVP bumex 2 mg TID on 06/11. - temporarily held BB due to heart block and shock. Held acei/arb 2/2 bridger on ckd - rheumatology consulted for sarcoidosis - received IVIG and high dose steroids. Transitioned to prednisone 60 daily with plans to initate Azathioprine/Cellcept for jail immunosuppression depending on work up. - Chest wall hematoma, Hgb dropped, retracted IABP and R groin bleed, Heparin held, IABP extraction and Impella placed 06/15 as a bridge to LVAD. No pseudoaneurysm on groin U/S. Recurrent hematoma/hgb drop every time restarted on AC. Heparin drip stopped indefinitely - declined for LVAD - Impella removed 07/09. Dobutamine off since 07/10 - lifevest delivered to bedside. EP Dr Sol planning on BiV-ICD/CRTD placement outpatient - PO prednisone taper for cardiac sarcoidosis vs giant cell myocarditis per rheumatology recs - S/p IV solumedrol 1 g daily x 3 doses - 1st on 06/11/24, PO prednisone 60 daily starting 06/14/24. Recommended pred 60mg PO daily for 4 weeks (06/16-07/16) then 40 mg x 4 weeks, 30 mg x 4 weeks (starting 08/14), 20 mg x 4 weeks and then taper by 5 mg every 2 weeks - repeat TTE 07/14 - EF < 15%, grade 2 diastolic dysfunction, no LV thrombus seen - discharged on toprol XL, entresto, and bumex per HF recommendations - instructed on follow up with [facility] advanced HF in 1 week. Discharge nurse contacted to assist with arranging follow up with [facility] rheumatology Chest wall hematoma L axillary/subclavian pseudoaneursym - not able to tolerate heparin drip - IABP extracted and Impella placed 06/15 as a bridge to LVAD - CTA 07/04 showed suspected L axillary/subclavian pseudoaneursym with contrast extravasation - S/p L Axillary-subclavian stent placement 07/04. Complete heart block, intermittent Complete heart block and ventricular escape on 06/02/2024 - Screw in MDT pacing lead placed 06/02/24 - Pacing lead removed for cardiac MRI 06/04/2024 LV mural thrombus 2021 - TTE 05/26/24 showing apical thrombus - TTE 06/02/24 no LV thrombus noted - eliquis switched to bilvarudin due to drop in platelet level (likely IABP related. HIT Ab negative) - bilvarudin switched back to heparin drip on 06/09. Held 06/11 due to oozing from IABP site. Restarted heparin 06/13 - heparin stopped due to expanding chest hematoma and recurrent bleeding at access sites - repeat TTE 07/14 - no LV thrombus seen Afib Sustained Vtach - CHADVASC 6. Eliquis held due to drop in platelet level . Bilvarudin switched back to heparin drip on 06/09. Held 06/11 due to oozing from IABP site. Heparin stopped indefinitely due to acute anemia and chest hematoma. - amiodarone restarted on 06/22 >> switched to PO daily 200 mg - metoprolol restarted - already has lifevest. Required cardioversion on 06-16-2024 for sustained Vtach. EP planning on BiV-ICD/CRTD placement outpatient - Discharge nurse contacted to assist with arranging follow up with [facility] cardiology. Instructed to follow up with EP Dr Sol Pericardial effusion - small/mod effusion on TTE - No evidence or clinical signs of tamponade BRIDGER on CKD, now ESRD ATN Hyperkalemia - nephro following - BRIDGER 2/2 ATN and CRS - Tolerated SLED on 06/04 for gadolinium clearance and on 06/07 - s/p bumex drip switched to IVP bumex 2 mg TID. - TDC placed on 06/10 but then removed for impella placement - lokelma Prn for hyperkalemia - TDC placed 07/06. Transitioned to iHD 07/09 after impella removal. Tolerating HD - still awaiting outpatient HD arrangements at the time of discharge Congestive Hepatopathy Chronic Hep C - Transjugular core biopsy in 07/2023 w congestive hepatopathy, fibrosis stage 1-2A - Paracentesis done 05/26 - 3700 cc fluid removed. Cell count not consistent with SBP - repeat liver biopsy done 06/10/24 for LVAD eval - chronic cardiac congestive hepatopathy, stage 2 fibrosis (no cirrhosis) - cleared for LVAD from hepatology standpoint Esophageal ulcer Esophagitis Upper GI bleed/Hematemesis -EGD 05/29 showing esophagitis and clean-based esophageal ulcer with recent stigmata of bleeding -s/p 5 days of CTX -completed 7 days carafate -continue PPI BID -Needs GI follow up in 4-6 weeks and repeat EGD to document healing of ulcer. Discharge nurse contacted to assist with arranging follow up Acute on chronic anemia Acute blood loss anemia Secondary to large chest wall hematoma - transfused for hgb < 7 - IV iron per nephrology completed. - Outpatient EPO per Nephrology Thrombocytopenia - likely IABP related. HIT Ab negative - s/p bilvarudin - platelet counts recovered Epistaxis - did not improve with afrin - packed by ENT on 07/03 PreDM Steroid induced hyperglycemia HbA1c 6.2 in 05/2024 and 5.6 this month - started on lantus 17 units daily while on steroids Discharge nurse contacted to assist with arranging follow up with [facility] PCP in 1 week Sacral wounds - wound care consulted Physical deconditioning Mechanical fall 3 1am patient was reaching for his phone, got out of bed and fell, hitting head, right hand and knee. - CT head neg for bleed/fracture. Xray right wrist and right knee negative for fracture, - continue PT/OT. - PT recommended IPR, would benefit from 3 hours of intensive multidisciplinary therapy per day to maximize functional outcome. Allergies Penicillins Allergy (Verified 10/27/22 21:16) Hives/Rash Home medications list reviewed: Yes Home Medications: Acetaminophen [Tylenol Extra Strength] 500 mg PO Q4H PRN 07/27/24 Amiodarone HCl [Cordarone*] 200 mg PO DAILY 07/27/24 Aspirin Chewable [Aspirin Chewable*] 81 mg PO DAILY 07/27/24 Atorvastatin Calcium [Lipitor] 40 mg PO BEDTIME 07/27/24 Bisacodyl [Dulcolax*] 10 mg UT DAILY PRN 07/27/24 Bumetanide [Bumex] 2 g PO BID 07/27/24 Codeine/APAP [Tylenol #3*] 1 tab PO Q6H PRN 07/27/24 Docusate/Senna [Senokot-S*] 2 tab PO BID PRN 07/27/24 Folic Acid 1 mg PO DAILY 07/27/24 Insulin Glargine,Hum.rec.anlog [Semglee] 17 units SQ DAILY 07/27/24 Lidocaine 4% Patch [Lidoderm 5% Patch*] 3 patch TOP DAILY 07/27/24 Melatonin [Melatonin*] 6 mg PO BEDTIME 07/27/24 Methyl Vince/Menthol [Thera-Gesic*] 1 linette TOP TID PRN 07/27/24 Metoprolol Succinate [Toprol Xl*] 1 tab PO BID 07/27/24 Midodrine HCl 10 mg PO DAILY PRN 07/27/24 Oxycodone HCl 5 mg PO Q6H PRN 07/27/24 Pantoprazole [Protonix Tab*] 40 mg PO BID 07/27/24 Polyethyl Gly 3350 [Glycolax*] 17 gm PO BID PRN 07/27/24 Sacubitril/Valsartan [Entresto 97 mg-103 mg Tablet] 1 tab PO BID 07/27/24 Simethicone [Mylicon*] 80 mg PO Q6H PRN 07/27/24 Vitamin D [Drisdol*] 50,000 unit PO Q7D 07/27/24 methocarbamoL [Methocarbamol] 500 mg PO QID PRN 07/27/24 predniSONE [Prednisone*] 40 mg PO DAILY 07/27/24 - Past Medical/Surgical History Diabetic: No -: HTN -: 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 Rossi/ Dr. Cabral) -: CAD -: Mural thrombus-left ventricle-resolved, on Eliquis -: CVA/ TIA -: Hep C--rec'd treatment 08/2023 -: Cardiac stent placement July 2019 -: removal of L hand 5th digit -: Cardiac catheterization 08/2023 Psychosocial/ Personal History: Patient currently lives at home with his and is on disability due to heart condition. - Family History Father Medical History: Cancer, Liver disease Mother Medical History: GI disease, Other (see notes) Notes: NA - Social History Smoking Status: Unknown if ever smoked Alcohol use: Yes CD- Drugs: Yes Caffeine use: Yes Place of Residence: Home Review of Systems 10-point ROS is otherwise unremarkable General: Weakness Respiratory: SOB with Excertion Cardiovascular: Edema Physical Examination Temp Pulse Resp BP Pulse Ox 97.9 F 71 16 110/70 99 07/28/24 20:50 07/28/24 20:50 07/28/24 20:50 07/28/24 20:50 07/28/24 20:50 General: In no apparent distress, Oriented x3, Cooperative HEENT: Atraumatic Neck: Supple Respiratory: Diminished Cardiovascular: Normal S1 S2, Edema Gastrointestinal: Soft and benign, Non-distended Musculoskeletal: No clubbing, No contractures Integumentary: No rashes, No cyanosis Neurological: Normal speech Laboratory Data (last 24 hrs) 07/28/24 07/28/24 05:39 05:39 WBC 10.10 Hgb 10.6 L Hct 31.2 L Plt Count 203 Sodium 136 Potassium 4.4 BUN 37 H Creatinine 3.02 H Glucose 131 H Magnesium 2.0 Imagings Data: EXAMINATION: XR CHEST 1 VIEW PORTABLE / BEDSIDE 07-19-24 INDICATION: Impella Position COMPARISON: 07/18/2024 FINDINGS: LINES/TUBES: Support lines and tubes unchanged. Right IJ catheter sheath and left PICC line. No other catheter is identified. LUNGS: Stable lung volumes and parenchymal opacities. No focal airspace consolidation. PLEURA: No pleural effusion or pneumothorax. MEDIASTINUM: The cardiomediastinal silhouette appears normal in size and shape. BONES/SOFT TISSUES: No acute osseous injury. ABDOMEN: No free air under the diaphragm. CTA CHEST 07-04-24 Narrative & Impression CLINICAL HISTORY: Soft tissue mass, chest, spontaneous hemorrhage FINDINGS: Multiple axial images of the chest were performed before and after the uncomplicated administration of IV contrast utilizing a CTA protocol. Delayed postcontrast images were performed to evaluate for active hemorrhage during imaging. Coronal and sagittal reformats and coronal MIPSwere created. 3-D imaging on an independent workstation was also performed for optimal visualization of the arterial system in accordance with the aortogram protocol. This exam was performed according to our departmental dose-optimization program, which includes automated exposure control, adjustment of the mA and/or kV according to patient size and/or use of the iterative reconstruction technique. Comparison: 06/06/2024. Vascular: There is a large, mixed density hematoma in the left anterior chest which appears either elevate or in part extend into the left pectoralis musculature. The collection measures 16.7 x 8.7 cm in axial dimension and 16 cm in craniocaudal dimension. There is a small focus of contrast flash at the superior-lateral margin of this collection is present (axial image 27 of the arterial phase). This appears to arise from the adjacent subclavian/axillary artery. There is significant subcutaneous stranding surrounding the hematoma in the left chest wall. There is no aortic dissection or aneurysm. No periaortic hematoma is present. There is no major branch vessel occlusion. A right subclavian artery approach Impella device is in place with the tip in the left ventricle. Chest: Lung parenchyma: Left greater than right dependent/compressive atelectasis. Pleural effusion: Small bilateral pleural effusions. Pneumothorax: None. Tracheobronchial tree: No significant findings. Pulmonary vasculature: No significant findings. Cardiac contours: Cardiomegaly. Mediastinum: Trace simple density pericardial effusion. Lymph Nodes: No adenopathy in the mediastinum or nikolai. Skeleton: No acute abnormality. Other:A right IJ CVC and left PICC line are in place. Limited imaging of the upper abdomen: Cirrhotic hepatic morphology. IMPRESSION: 16.7 x 8.7 x 16.0 cm left anterior chest wall hematoma with a flash of extravasated IV contrast at the superior lateral margin of the hematoma, appearing to arise from the adjacent subclavian/axillary artery. This may reflect bleeding from a pseudoaneurysm. Vascular specialist evaluation is recommended. Transthoracic Echocardiography Report (TTE) Patient Name NOLAN HOLLEY Date of Study 07/14/2024 Gender Male Visit Number [id number] Race Black Room Number 1109 Number Date of 1960 Referring Physician Richelle Mace NP Age 64 year(s) Field Support Rep Serena Mejia Firewall Security Engineer Myra MEDINA, Interpreting Core Cardiology RDCS Physician Vladimir Lema MD Procedure Type of Study TTE procedure:ECHO W/CONT LTD STUDY WO DOPP (Routine) Indications:LV function evaluation. Clinical History CHF, CKD IV, HTN, OK, HLD, CVA, AFIB Impella s/p removal 07/09/24 HFrEF <20%, moderate TR, dilated nonischemic cardiomyopathy, history of mural thrombus LV, chronic hep C, cirrhosis, alcohol induced pancreatitis Left chest hematoma HGB 7.7 HCT 24.7 % Contrast Medium: Definity. Height: 75 inches Weight: 96.62 kg (213 lbs) BSA: 2.25 m^2 BMI: 26.62 kg/m^2 HR: 79 bpm BP: 116/70 mmHg Summary 1. The left ventricle chamber size (by vol index) is severely enlarged (male - LVED vol >100ml/m2). Normal LV wall thickness. All of the LV segments are severely hypokinetic. LVEF by Hoffman's method of disk assessment is severely reduced (<15%) . Grade 2 diastolic dysfunction (moderately increased LA pressure). No evidence of LV mass/thrombus. 2. The left atrium is severely enlarged. 3. The right ventricle chamber size is normal with mild systolic dysfunction. 4. The right atrium appears normal. 5. Mild to moderate tricuspid regurgitation. 6. A small pericardial effusion is present. Pericardial tamponade physiology is not evident . Previous Study In comparison with the prior exam on 07/10/2024, the following changes are noted: estimated PA systolic pressures are 35-40 mmHg. Signature Findings Technical Quality: Technically adequate exam. Left Ventricle LV endocardium is adequately visualized with IV ultrasound enhancing agent. The left ventricle chamber size (by vol index) is severely enlarged (male - LVED vol >100ml/m2). Normal LV wall thickness. All of the LV segments are severely hypokinetic . LVEF by Hoffman's method of disk assessment is severely reduced (<15%) . Grade 2 diastolic dysfunction (moderately increased LA pressure). No evidence of LV mass/thrombus. Left Atrium LA size is severely enlarged (>48 ml/m2) . Right Ventricle RV chamber size appears normal by limited views . Global RV systolic function is qualitatively reduced . Right Atrium RA size is normal. Aortic Valve Normal AoV structure. Mitral Valve Mild MV leaflet thickening. Mild mitral regurgitation. Tricuspid Valve TV structure is normal. Mild to moderate tricuspid regurgitation. Estimated peak systolic PA pressure is 35-40 mmHg (borderline criteria for pulmonary hypertension) . Pulmonic Valve PV is not well visualized. Aorta Aortic root size (Sinus of Valsalva diameter) is normal . Pericardium A small pericardial effusion is present . Pericardial tamponade physiology is not evident . IVC/SVC/PA/PV/Pleural The inferior vena cava size is mildly increased . The IVC is <2.1cm and <50% collapsible suggestive of RAP of 8 mm Hg. Chambers/Structures Left Atrium LA Volume: 129.72 ml LA Area: 32.82 cm^2 LA Vol. Index: 58 ml/m^2 Left Ventricle LVIDd: 6.42 cm LVIDs: 5.71 cm LV Septum Diastolic: 0.94 cm LV PW Diastolic: 1.17 cm LV FS: 11.1 % LVEDV Hoffman's:255.85 ml LVESV Hoffman's:220.97 ml LVEDVI: 114 ml/m^2 LVEF Hoffman's: 13.6 % LVESVI: 98 ml/m^2 LVOT Diameter: 2.53 cm Right Atrium RA Vol. (Sngl Plane): 76.46 ml Aorta Ao Root S of Angeline.: 4.04 cm Doppler/Quantitative Measurements Mitral Valve MV Peak E-Wave: 0.67 m/s MV Peak A-Wave: 0.36 m/s E/A Ratio: 1.87 Peak Gradient: 1.81 mmHg Deceleration Time: 110 msec MR Velocity: 4.68 m/s MR VTI: 144.83 cm MV Albino. Peak: Tissue Doppler E' Septal Velocity: 0.04 m/s E/E': 16.18 E' Lateral Velocity: 0.04 m/s LVOT LVOT Diameter: 2.53 cm LVOT Area: 5.03 cm^2 Tricuspid Valve TR Velocity: 2.83 m/s TR Gradient: 32.13 mmHg Conclusions/Impression: Stage III BRIDGER required HD CKD IV -No NSAIDs -Continue intermittent HD -Seen and examined on HD today Systolic CHF, chronic Peripheral Edema -Continue Bumex -HD with UF -Continue Entresto DM II with CKD -Continue Lantus -RISS Anemia in chronic illness/ CKD -Monitor H&H -Retacrit prn CKD MBD -Continue [facility]'s Records reviewed Thank you kindly for the consultation
--- NOTE | 2024-07-29 09:21 | HP ---
Date of Admission: 07/27/2024 Time Of Service: 9:00 a.m. Chief Complaint: "I have some problems. I am short of breath. I have to get my strength back." History Of Present Illness: Mr. Natan Paulino is a 64-year-old patient with history of congestive hea rt failure, ejection fraction very low 10% to 20%, dilated nonischemic cardiomyopathy, hypertension, dyslipidemia, who has persistent atrial fibrillation, history of mural thrombus, cirrhosis , and alcohol-induced pancreatitis, was transferred from an outside hospital due to elevated troponin with moderate pericardial effusion noted on CT scan. Kidney function showed acute renal injury with heart failure exacerbation and decompensated cirrhosis. His echocardiogram identified a small peric ardial effusion. He was treated with IV Lasix and oxygen. On the May 28, he had 2 episodes of h ematemesis and abdominal pain, but was found to have stable hemoglobin. An EGD showed esophagitis an d clean base esophageal ulcer with recent stigmata of bleeding. On the May 31, he developed non- ST-segment myocardial infarction, was transferred to cardiac care unit for cardiogenic shock. He was treated with dobutamine and epinephrine. Suspected possible myocarditis versus sarcoidosis. He was treated with IVIG and high-dose steroids from 06/03 to 06/07. On 06/04, the IABP was placed and axi llary IABP on 06/09. He had complete heart block with ventricular escape on 06/02 and the pacing delia ds were put in place. In addition, there was cardiorenal insufficiency with poor urine output and he was put on Bumex drip and transitioned to IV Bumex by pump by 06/03. Rheumatology followed the ti ent and had a diagnosis of possible sarcoidosis with labs pending. He had heparin placed for a left ventricular thrombus had changed to bivalirudin for his downtrending platelets. His HIT antibody fan ting was negative. He was switched back to heparin, but that was temporarily stopped due to oozing f rom the IABP site. He was restarted on heparin on 06/13 and weaned off epinephrine and Bumex drips o n 06/11. Liver biopsy was done on 06/10 and the pathology showed chronic cardiac congestive hepatopa thy. He had stage II fibrosis without cirrhosis. Heparin was stopped and his IABP removed on 06/15 and he was intubated for procedure, remained intubated after he developed sustained V tach during an attempted SVT. He was extubated on 06/17. At that point, hemoglobin dropped less than 8, was transf used 3 units of packed red blood cells. He was seen again by GI who recommended against an EGD and t here was no overt sign of GI bleeding. His drop in hemoglobin was thought to be due to chest wall he matoma expansion and felt that he need to be on hemodialysis with ventricular assistive device placem ent. On 05/30, initiated respiratory aggressive therapy for volume overload and did improve whole le g discomfort and swelling. Did have expanding chest wall hematoma. 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 He was status post left axill camila subclavian stent placement on 07/04. On 07/05, he was started on Impella and dobutamine __ as needed. Plans for Impella explant and was declined for LVAD. He did have wound care consult f or sacral wound. Noted wound is likely aggravated by his prediabetes and steroid injection for hypoglycemia. He is put on Lantus 15 units daily. At that point, he was evaluated by Therapy and they medically cleared to be evaluated and start therapy. It is noted that prior to the patient' s hospitalization complications, he was independent without assistive device. 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 Due to his prolonged and complicated hospitalization, he is now standby assist ance to contact guard assistance. For ons-zz-ileaw transfers, contact guard assistance. Ambulated j ust about 60 feet with a front wheeled walker. He has a kyphotic forward flexed heavy lean on the wa lker. He has decrease of strength in the lower extremities and stops stride length with slow pace, r equires standing breaks frequently. He also was noted to have a fall on 07/21 attempting to get out of bed without supervision or assistance. As he is functioning very well below his baseline and need for aggressive physical therapy, he is now admitted to the inpatient rehabilitation unit for physica l, occupational, and speech therapy and have his medical conditions addressed aggressively. If he is to be discharged to home or to jail unit, he would likely not thrive, but worsen. Past Medical History: As noted above and in addition to he has had venous upper extremity balloon pu mp insertion, Impella pump insertion, left heart catheterization, right catheterization and biopsy, s ternotomy, and transesophageal echocardiogram. Allergies: PENICILLIN. Current Medications: Tylenol 500 mg every 4 hours as needed, Tylenol No. 3 every 6 hours as needed, Cordarone 200 mg daily, aspirin 81 mg daily, Lipitor 40 mg at bedtime, Dulcolax 10 mg per rectum enedelia y, Bumex 2 mg twice daily, Nepro shake 237 mL twice daily, Drisdol 50,000 units weekly, folic acid 1 mg daily, Semglee insulin units daily, lidocaine 2 patches daily, melatonin 6 mg at bedtim e, Robaxin 500 mg 4 hours as needed. He has methyl salicylate apply topically daily, Toprol-XL 25 mg twice daily, midodrine 10 mg daily, oxycodone 5 mg every 6 hours as needed, Protonix 40 mg daily, Gl ycolax 17 g twice daily, prednisone 40 mg daily, Senokot S 2 at bedtime, and simethicone 80 mg every 6 hours. Family History: Noncontributory. Social History: No recent alcohol, tobacco, or IV drug use. 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 Current Level Of Functioning: Currently Mr. Paulino requires supervision for eating, oral hygiene. For toileting, showering, upper body dressing, supervision. Donning and doffing footwear, he is at a courtney pervision level. For his ability to transfer bed to chair, to toilet, supervision to minimum assist. Rolling walker covered 60 feet with assistance required. Physical Examination: Vital Signs: Blood pressure 107/66, pulse 70, respiratory rate 16, temperature 97.8, oxygen saturati on 99%. General: Mr. Paulino is sitting in a chair beside bed. He has completed all of his breakfast. HEENT: He appears normocephalic, atraumatic. Sclerae anicteric. Oropharynx moist. Neck: Supple. Chest: Clear. Wounds: All surgical wounds are healing with hemostasis. Extremities: Mild edema in the lower extremities. No clubbing or cyanosis noted. He has diffuse we akness, 4/5 proximally and distally at the lower extremities. Laboratory Studies: White blood cell count 10.1, hemoglobin 10.6, platelets 203. Sodium 136, potass ium 4.4, chloride 106, carbon dioxide 25, BUN 37, creatinine 3.02, glucose 101 up to 201, calcium 8.6 . Magnesium 2.0. Albumin 2.7, prealbumin 30.4. Urinalysis shows extreme turbidity, trace blood, 1+ bilirubin, 1+ urobilinogen, 75 esterase, 2+ total protein. X-ray/imaging: CT scan of the chest on 06/06 shows no findings that suggest pulmonary sarcoidosis, c ardiomegaly with mild to moderate pericardial effusion, trace bilateral effusion, cirrhosis of the [place] morphology identified. On 07/06/2024, echocardiogram shows left ventricular chamber size and vol ume mildly enlarged. Left ventricular end-diastolic pressure is 75-80. He had angiogram, upper extr emities angioplasty with insertion of a balloon pump and insertion of Impella pump and again left hea rt cath. Rehab And Medical Assessment And Plan: Mr. Paulino is a 64-year-old patient admitted to the inpatient r ehabilitation unit with impairment category 14, cardiac. His impairment group code is 09, cardiac. Etiologic diagnosis systolic heart failure exacerbation. Comorbidities are decreased mobility, decre ased physical functioning, myocardial infarction, hypertension, cardiogenic shock, myocarditis, sarco idosis treated, renal insufficiency, hyperkalemia, congestive hepatopathy, esophageal ulcer, esophagi tis, gastrointestinal bleed, thrombocytopenia, anemia, prediabetes, steroid abuse, hypoglycemia, and sacral wounds. Plan: He will have physical, occupational, and speech therapy 3.5 hours, 5 of 7 days. In addition, wound care will be helping with his sacral wound. We will continue the Cordarone for heart rate cont rol, blood pressure control; aspirin for stroke risk reduction; Lipitor for dyslipidemia; Tylenol; an d Tylenol with codeine for pain; Dulcolax for constipation; Nepro shake for malnutrition. For his re nal failure, he will have the renal service following Dr. Rossi involved. He has vitamin D supplem entation as well as folic acid, Semglee insulin 17 units daily for his hypoglycemia and diabetes, maddy atonin for insomnia, Robaxin for muscle spasms. Continue his Toprol for rate control, midodrine for blood pressure support, Protonix for GE reflux, prednisone as noted. Continue Senokot S for constipa tion, Mylicon for gas. Comorbidities That Are Impacting Rehabilitation: As noted, Mr. Paulino has extensive cardiac related is sues and renal issues as well as pulmonary issues and will require very close careful monitoring on a daily basis. Blood work and imaging including as need be. Doppler study is required of his kidneys and lower extremities and to rule out ascites, rule out bleeding in the GI area. Rehab Specific Plan: Mr. Paulino will have physical, occupational, and speech therapy 3.5 hours, 12/23 da ys to improve his ability to transfer from bed to a chair, to a rolling walker to be able to mobilize a wheelchair to go up and down steps. He does not have stairs at home, but still work on stairs ___ . In addition, he is a regional truck driver and eventually will have to get back to work, so requires aggressive therapy to ambulate longer distances at least around 500 feet with modified independence. Mr. Paulino has a good understanding of the process of admission to inpatient rehabilitation unit and ho w he will benefit from physical, occupational, and speech therapy. He will have daily nursing evalua tion and management and jail. He will have daily physician evaluation and management and social work faculty member evaluation and management for discharge planning, home equipment. To continue to the rapy and physician followup. If need be, additional help will be provided by the cardiology service, the hospitalist service, and pulmonary service. Barriers To Discharge: As noted, Mr. Paulino has a complicated history and has a potential for __ worsened from infection, heart failure, renal failure, GI bleed, and may require extended stay if those are to worsen. They will be followed again with imaging, blood work, and daily examination. Length Of Stay: 2 weeks. Disposition: Home with Home Health to follow up with physicians. Prognosis: Fair. Code Status: Full code. Rehab Specific Goals: 1.Become independent with upper and lower body dressing and donning and doffing footwear. 2.Independently able to transfer from bed to chair, to a rolling walker, on and off toilet, and in a nd out of shower. 3.Independently perform all activities of daily living. 4.Independently perform cognitive functioning. 5.Independently manage all medications. The above goals were reviewed with Mr. Paulino and he is in agreement. By signing this document, I acknowledge I personally performed a full physical examination on Mr. Chris jiménez no later than 24 hours after his admission to the inpatient rehabilitation facility and determined that he is able to tolerate the above course of treatment at an intensive level for a reasonable maikol od of time. A detailed individualized plan of care for him will be completed by hospital day 4 based on the preadmission screen, history and phy sical, and therapy evaluations. PAIGE Voice ID: [id number]
--- NOTE | 2024-07-29 22:07 | P.PN ---
Date of Service: 07/29/24 Vital Signs Temp Pulse Resp BP Pulse Ox 98.1 F 79 17 113/72 94 07/29/24 19:23 07/29/24 20:16 07/29/24 21:59 07/29/24 20:16 07/29/24 21:59 Medications Acetaminophen (Acetaminophen 500 Mg Tab) 500 mg PO Q4H PRN PRN Reason: Pain scale 2-4 (Mild) Acetaminophen/Codeine Phosphate (Codeine 30mg/Apap 300mg Tab) 1 tab PO Q6H PRN PRN Reason: Pain scale 5-7 (Moderate) Last Admin: 07/29/24 21:59 Dose: 1 tab Amiodarone HCl (Amiodarone Hcl 200 Mg Tab) 200 mg PO DAILY [facility] Last Admin: 07/29/24 07:12 Dose: 200 mg Aspirin (Aspirin 81 Mg Chewable Tablet) 81 mg PO DAILY [facility] Last Admin: 07/29/24 07:11 Dose: 81 mg Atorvastatin Calcium (Atorvastatin 40 Mg Tab) 40 mg PO BEDTIME [facility] Last Admin: 07/29/24 20:16 Dose: 40 mg Bisacodyl (Bisacodyl 10 Mg Rectal Supp) 10 mg WA DAILY PRN PRN Reason: CONSTIPATION Bumetanide (Bumetanide 1 Mg Tablet) 2 mg PO BIDL [facility] Last Admin: 07/29/24 16:16 Dose: 2 mg Enteral Nutritional Formula (Nepro Shake 237 Ml Can) 237 ml PO BID [facility] Last Admin: 07/29/24 20:17 Dose: 237 ml Ergocalciferol (Drisdol (Vitamin D=Ergocalciferol) 56343 Unit Cap) 50,000 unit PO Q7D@0900 [facility] Folic Acid (Folic Acid 1 Mg Tablet) 1 mg PO DAILY [facility] Last Admin: 07/29/24 07:12 Dose: 1 mg Glucagon (Glucagon 1 Mg/Vial) 1 mg IM 1X PRN PRN Reason: HYPOGLYCEMIA Heparin Sodium (Porcine) (Heparin 1,000 Unit/Ml Vial) 6,000 unit IV EVERY HD PRN PRN Reason: AFTER EACH Last Admin: 07/28/24 18:16 Dose: 6,000 unit Heparin Sodium (Porcine) (Heparin 5000 Unit/Ml 1 Ml Vial) 5,000 unit SQ Q12HR [facility] Last Admin: 07/29/24 20:17 Dose: 5,000 unit Albumin Human (Albumin 25% 25 Gm) 100 mls @ 200 mls/hr IV EVERY HD [facility] Dextrose (Dextrose 10% Water Iv Soln.) 125 mls @ 0 mls/hr IV PRN PRN; Protocol PRN Reason: HYPOGLYCEMIA Insulin Glargine (Insulin Glargine 100 Unit/Ml) 17 unit SQ DAILY [facility] Last Admin: 07/29/24 08:25 Dose: 17 unit Insulin Human Regular (Insulin Regular (Human) 100 Unit/Ml) 0 unit SQ ACHS [facility]; Protocol Last Admin: 07/29/24 20:17 Dose: Not Given Lidocaine (Lidocaine 4% Patch) 2 patch TOP DAILY [facility] Last Admin: 07/29/24 07:13 Dose: 2 patch Mannitol (Mannitol 25% 12.5 Gm/50 Ml Vial) 12.5 gm IV EVERY HD PRN PRN Reason: Titrate to SBP (MUST DEFINE) Melatonin (Melatonin 3 Mg Tablet) 6 mg PO BEDTIME [facility] Last Admin: 07/29/24 20:16 Dose: 6 mg Methocarbamol (Methocarbamol 500 Mg Tab) 500 mg PO QID PRN PRN Reason: MUSCLE SPASMS Last Admin: 07/29/24 15:56 Dose: 500 mg Methyl Salicylate (Methyl Salicylate/Menthol 3 Oz Tube) 1 appl TOP TID PRN PRN Reason: back spasm Metoprolol Succinate (Metoprolol Xl 25 Mg Tab) 25 mg PO BID [facility] Last Admin: 07/29/24 20:16 Dose: 25 mg Midodrine (Midodrine Hcl 5 Mg Tablet) 10 mg PO DAILY PRN PRN Reason: Goal to achieve SBP in comment Last Admin: 07/28/24 14:31 Dose: 10 mg Oxycodone HCl (Oxycodone Hcl 5 Mg Tab) 5 mg PO Q6H PRN PRN Reason: Pain scale 8-10 (Severe) Last Admin: 07/27/24 21:31 Dose: 5 mg Pantoprazole Sodium (Pantoprazole 40mg Tablet) 40 mg PO BIDAC [facility]; Protocol Last Admin: 07/29/24 16:16 Dose: 40 mg Polyethylene Glycol (Polyethyl Gly 3350 17 Gm/Dose) 17 gm PO BID [facility] Last Admin: 07/29/24 20:00 Dose: Not Given Prednisone (Prednisone 20 Mg Tab) 40 mg PO DAILY [facility] Last Admin: 07/29/24 07:10 Dose: 40 mg Senna/Docusate Sodium (Docusate Na/Senna Conc 1 Tab) 2 tab PO BID [facility] Last Admin: 07/29/24 20:00 Dose: Not Given Simethicone (Simethicone 80 Mg Chewable Tab) 80 mg PO Q6H PRN PRN Reason: GAS Lab Results (last 24 hrs) 07/29/24 19:27: POC Glucose 165 H 07/29/24 16:00: POC Glucose 153 H 07/29/24 11:01: POC Glucose 215 H 07/29/24 06:23: POC Glucose 116 Microbiology Results 07/28/24 02:30 Clean Catch Urine Whitman Count - Preliminary BETWEEN 10,000 & 100,000 CFU/ML 07/28/24 02:30 Clean Catch Urine - Preliminary Assessment/ Plan: Nephrology No dyspnea. +CARRION No chest pain No acute events overnight Vitals, medications, blood work and imaging reviewed in the chart NAD. MMM. NCAT. Normal Respiratory Effort. S1S2. ND Abd. No C/C. LE Edema 1+. No rash. AAO. Normal speech. Conclusions/Impression: Stage III BRIDGER required HD CKD IV -No NSAIDs -Continue intermittent HD Systolic CHF, chronic Peripheral Edema -Continue Bumex -HD with UF -Continue Entresto DM II with CKD -Continue Lantus -RISS Anemia in chronic illness/ CKD -Monitor H&H -Retacrit prn CKD MBD -Continue Ergo
--- NOTE | 2024-07-29 22:57 | PN ---
Date of Progress Note: 07/29/2024 Time Of Service: 1:45 p.m. Subjective: Mr. Paulino is resting in bed. He is very happy with his therapy so far. He is mobilizing very well several times around the unit, up and down steps, mobilized a wheelchair well. Said just mild shortness of breath and fatigue with which he will now be using incentive spirometry. Objective: No fevers, chills, nausea, vomiting, myalgias, arthralgias, rash. No other issues or com plaints. Physical Examination: Vital Signs: Blood pressure 138/72, pulse 79, respiratory rate 17, temperature 98.1, oxygen saturati on 94%. General: Mr. Paulino is resting comfortably in his bed. HEENT: He is normocephalic, atraumatic. Sclerae anicteric. Oropharynx pink, moist. Neck: Supple. Chest: Clear. Heart: Regular. Extremities: No significant edema, cyanosis, or clubbing noted. Laboratory Studies: Today, blood sugars did range from 116 to 215. He did have hepatitis B antigen found reactive, hepatitis surface antigen nonreactive, and he is followed by Dr. Rossi on the Renal Service as he has renal disease and receiving dialysis. Medications: Include Tylenol 500 mg every 4 hours as needed and Tylenol No. 3 every 6 hours as neede d. He has received albumin 25 g with every hemodialysis, amiodarone 200 mg daily, aspirin 81 mg enedelia y, Lipitor 40 mg at bedtime, Bumex 2 mg twice daily, Nepro shake 237 mL twice daily, vitamin D 50,000 units daily, folic acid 1 mg daily, glucagon 1 mg IM for hypoglycemia, Semglee insulin 17 units enedelia y, Robaxin 500 mg 4 times daily, metoprolol extended release 250 mg twice daily, midodrine 10 mg enedelia y as needed, oxycodone 5 mg every 6 hours as needed, Protonix 40 mg daily, prednisone 40 mg daily, Se nokot-S 2 at bedtime simethicone 80 mg every 6 hours as needed. Progress Made With Physical And Occupational Therapy: Today with physical therapy, he was able to am bulate 250 feet once, 325 feet once, and 275 feet once with standby assistance. Also up and down 15 steps with bilateral handrails with standby assistance. [id number]-mp-[id number] transfers done independently. With his occupational therapy, he did unload loading grocery bag practice, did overhead cabinet pract ice, did very well. Mobilized from gym to room with a rolling walker, supervision for bed mobilizati on. Assessment And Plan: Mr. Paulino is a 64-year-old patient, doing excellent with physical and occupation al therapy, making great progress. Still has mild decreased mobility, decreased physical functioning , has some bloating with gas, doing well. He has constipation addressed with Senokot-S, pain with mu ltiple modalities have been addressed, orthostatic changes with blood pressure has been addressed. Adriel traore has end-stage renal disease, on hemodialysis, followed by the Renal Service. Also has [facility] otilio for diabetes mellitus. He has deep vein thrombosis prophylaxis with heparin and Bumex on board f or his loop diuretic, Lipitor for dyslipidemia, aspirin for stroke risk reduction, amiodarone for hea rt rate control, and he is planning to have physical and occupational therapy continued 3 hours a day , 5 of 7 days. He will continue with his list of comorbid condition medications which have been note d. Also Dr. Rossi on the Renal Service is facilitating his hemodialysis 3 times weekly. TERESA/TERRELL Voice ID: [id number] Report ID: [id number]
[2024-07-30 06:00] LABS: Absolute Lymphocytes (CBC) 1.4 K/uL (0.7-4.9); Absolute Monocytes 0.9 K/uL (0.1-1.3); Absolute Neutrophil 7.1 K/uL (1.8-8.0); Basophils % 0.2 % (0-1.3); Eosinophils % 0.4 % (0-4.4); Hematocrit 31.1 % (39.6-49.0); Hemoglobin 10.6 g/dL (13.6-17.9); Lymphocytes % 14.7 % (15.3-44.8); MCH 32.4 pg (27.0-35.0); MCV 95.1 fL (80-100); MPV 8.2 fL (7.6-11.3); Monocytes % 9.3 % (3.3-12.3); Neutrophils % 75.4 % (41.7-73.7); Nucleated Red Blood Cells % 0.2 % (0-0); Platelets 185 thou/uL (152-406); RBC Red Blood Cell Count 3.27 M/uL (4.33-5.43); Red Cell Distribution Width 21.3 % (12.1-15.2)
[2024-07-30 06:25] LABS: Albumin 2.8 g/dL (3.4-5.0); Anion Gap 10.4 mEq/L (5.0-15.0); Magnesium 2.2 mg/dL (1.6-2.4); Potassium 4.4 mEq/L (3.5-5.1); Prealbumin 37.3 mg/dL (20-40)
--- NOTE | 2024-07-30 22:21 | P.PN ---
Date of Service: 07/30/24 Vital Signs Temp Pulse Resp BP Pulse Ox 98.3 F 74 16 132/74 95 07/30/24 20:00 07/30/24 20:24 07/30/24 21:27 07/30/24 20:24 07/30/24 21:27 Medications Acetaminophen (Acetaminophen 500 Mg Tab) 500 mg PO Q4H PRN PRN Reason: Pain scale 2-4 (Mild) Acetaminophen/Codeine Phosphate (Codeine 30mg/Apap 300mg Tab) 1 tab PO Q6H PRN PRN Reason: Pain scale 5-7 (Moderate) Last Admin: 07/30/24 09:15 Dose: 1 tab Amiodarone HCl (Amiodarone Hcl 200 Mg Tab) 200 mg PO DAILY [facility] Last Admin: 07/30/24 09:00 Dose: 200 mg Aspirin (Aspirin 81 Mg Chewable Tablet) 81 mg PO DAILY [facility] Last Admin: 07/30/24 08:52 Dose: 81 mg Atorvastatin Calcium (Atorvastatin 40 Mg Tab) 40 mg PO BEDTIME [facility] Last Admin: 07/30/24 20:23 Dose: 40 mg Bisacodyl (Bisacodyl 10 Mg Rectal Supp) 10 mg ID DAILY PRN PRN Reason: CONSTIPATION Bumetanide (Bumetanide 1 Mg Tablet) 2 mg PO BIDL [facility] Last Admin: 07/30/24 17:00 Dose: Not Given Cyanocobalamin (Cyanocobalamin 1,000 Mcg Tab) 1,000 mcg PO DAILY [facility] Enteral Nutritional Formula (Nepro Shake 237 Ml Can) 237 ml PO BID [facility] Last Admin: 07/30/24 20:00 Dose: 237 ml Ergocalciferol (Drisdol (Vitamin D=Ergocalciferol) 76809 Unit Cap) 50,000 unit PO Q7D@0900 [facility] Folic Acid (Folic Acid 1 Mg Tablet) 1 mg PO DAILY [facility] Last Admin: 07/30/24 08:52 Dose: 1 mg Glucagon (Glucagon 1 Mg/Vial) 1 mg IM 1X PRN PRN Reason: HYPOGLYCEMIA Heparin Sodium (Porcine) (Heparin 1,000 Unit/Ml Vial) 6,000 unit IV EVERY HD PRN PRN Reason: AFTER EACH Last Admin: 07/30/24 18:13 Dose: 6,000 unit Heparin Sodium (Porcine) (Heparin 5000 Unit/Ml 1 Ml Vial) 5,000 unit SQ Q12HR [facility] Last Admin: 07/30/24 20:23 Dose: 5,000 unit Albumin Human (Albumin 25% 25 Gm) 100 mls @ 200 mls/hr IV EVERY HD [facility] Dextrose (Dextrose 10% Water Iv Soln.) 125 mls @ 0 mls/hr IV PRN PRN; Protocol PRN Reason: HYPOGLYCEMIA Insulin Glargine (Insulin Glargine 100 Unit/Ml) 17 unit SQ DAILY [facility] Last Admin: 07/30/24 08:58 Dose: 17 unit Insulin Human Regular (Insulin Regular (Human) 100 Unit/Ml) 0 unit SQ ACHS [facility]; Protocol Last Admin: 07/30/24 20:25 Dose: 2 unit Lidocaine (Lidocaine 4% Patch) 2 patch TOP DAILY [facility] Last Admin: 07/30/24 08:51 Dose: 2 patch Mannitol (Mannitol 25% 12.5 Gm/50 Ml Vial) 12.5 gm IV EVERY HD PRN PRN Reason: Titrate to SBP (MUST DEFINE) Melatonin (Melatonin 3 Mg Tablet) 6 mg PO BEDTIME [facility] Last Admin: 07/30/24 20:23 Dose: 6 mg Methocarbamol (Methocarbamol 500 Mg Tab) 500 mg PO QID PRN PRN Reason: MUSCLE SPASMS Last Admin: 07/30/24 20:27 Dose: 500 mg Methyl Salicylate (Methyl Salicylate/Menthol 3 Oz Tube) 1 appl TOP TID PRN PRN Reason: back spasm Metoprolol Succinate (Metoprolol Xl 25 Mg Tab) 25 mg PO BID [facility] Last Admin: 07/30/24 20:24 Dose: 25 mg Midodrine (Midodrine Hcl 5 Mg Tablet) 10 mg PO DAILY PRN PRN Reason: Goal to achieve SBP in comment Last Admin: 07/28/24 14:31 Dose: 10 mg Oxycodone HCl (Oxycodone Hcl 5 Mg Tab) 5 mg PO Q6H PRN PRN Reason: Pain scale 8-10 (Severe) Last Admin: 07/30/24 20:27 Dose: 5 mg Pantoprazole Sodium (Pantoprazole 40mg Tablet) 40 mg PO BIDAC [facility]; Protocol Last Admin: 07/30/24 16:30 Dose: Not Given Polyethylene Glycol (Polyethyl Gly 3350 17 Gm/Dose) 17 gm PO BID [facility] Last Admin: 07/30/24 20:24 Dose: 17 gm Prednisone (Prednisone 20 Mg Tab) 40 mg PO DAILY [facility] Last Admin: 07/30/24 08:56 Dose: 40 mg Senna/Docusate Sodium (Docusate Na/Senna Conc 1 Tab) 2 tab PO BID [facility] Last Admin: 07/30/24 20:00 Dose: Not Given Simethicone (Simethicone 80 Mg Chewable Tab) 80 mg PO Q6H PRN PRN Reason: GAS Lab Results (last 24 hrs) 07/30/24 19:56: POC Glucose 230 H 07/30/24 11:01: POC Glucose 147 H 07/30/24 07:06: POC Glucose 120 07/30/24 05:06: Hemoglobin A1c 5.3 07/30/24 05:06: Sodium 138, Potassium 4.4, Chloride 105, Carbon Dioxide 27, Anion Gap 10.4, BUN 60 H, Creatinine 3.91 H, Est GFR (CKD-EPI) 16 L, Glucose 107 H, Calcium 9.0, Magnesium 2.2, Albumin 2.8 L, Prealbumin 37.3 07/30/24 05:06: WBC 9.40, RBC 3.27 L, Hgb 10.6 L, Hct 31.1 L, MCV 95.1, MCH 32.4, MCHC 34.0, RDW 21.3 H, Plt Count 185, MPV 8.2, Neutrophils % 75.4 H, Lymphocytes % 14.7 L, Monocytes % 9.3, Eosinophils % 0.4, Basophils % 0.2, Absolute Neutrophils 7.1, Absolute Lymphocytes 1.4, Absolute Monocytes 0.9, Absolute Eosinophils 0.0, Absolute Basophils 0.0 Microbiology Results 07/28/24 02:30 Clean Catch Urine [place] Count - Final BETWEEN 10,000 & 100,000 CFU/ML 07/28/24 02:30 Clean Catch Urine - Final Enterobacter Cloacae Assessment/ Plan: Nephrology No dyspnea. +CARRION No chest pain No acute events overnight Vitals, medications, blood work and imaging reviewed in the chart NAD. MMM. NCAT. Normal Respiratory Effort. S1S2. ND Abd. No C/C. LE Edema 1+. No rash. AAO. Normal speech. Conclusions/Impression: Stage III BRIDGER required HD CKD IV -No NSAIDs -Continue intermittent HD Systolic Diastolic CHF, chronic Peripheral Edema -Continue Bumex -HD with UF -Continue Entresto DM II with CKD -Continue Abdielt -AILEEN Anemia in chronic illness/ CKD -Monitor H&H -Retacrit prn CKD MBD -Continue Ergo
--- NOTE | 2024-07-31 02:28 | PN ---
Date of Progress Note: 07/30/2024 Time Of Service: 1:40 p.m. Subjective: Mr. Paulino is in his room in bed. He is very happy with his therapy so far. Says he is m aking great progress and has no significant chest pain or any other complaints. Objective: No fevers, chills, nausea, vomiting. No myalgias, arthralgias. He is happy with everyth ing so far including the food. Physical Examination: Vital Signs: Blood pressure 138/74, pulse 74, respiratory rate 16, temperature 97.6, oxygen saturati on 98%. General: Mr. Paulino again is lying in his bed. He is in no acute distress. HEENT: He is normocephalic, atraumatic. Sclerae anicteric. Oropharynx pink and moist. Neck: Supple. Chest: Clear. Heart: Regular. Extremities: No significant clubbing, cyanosis, or edema. Did have some B12 for poor energy and anne t is improving. Laboratory Studies: White blood cell count 9.4, hemoglobin 10.6, platelets 185. Sodium 138, potassi um 4.4, chloride 105, carbon dioxide 27, BUN 60, creatinine 3.91. Today is his hemodialysis today. Dr. Rossi is following him for that. Blood sugars did range from 107 to 230; however, hemoglobin A 1c was 5.3. Calcium 9.0, magnesium 2.2, albumin 2.8, prealbumin 37.3. X-ray/imaging: No new x-rays or imaging. Medications: Have been reviewed. His hemoglobin A1c is normal and a.c. and at bedtime blood glucose held, although there was an elevated blood glucose after dinner this evening. We will continue on v itamin D1, tomorrow will receive 50,000 units, which is once weekly. Other medications have been rev iewed and are unchanged. Progress Made With Physical And Occupational Therapy: Today with physical therapy, he was able to pe rform eeggsf-ec-shc transfers independently, multiple huo-mt-briho transfers done independently, mult iple [id number]-ug-[id number] transfers done independently. He ambulated 325 feet with a rolling walker indepe ndently and used a single prong cane 5 times to cover 125 feet with contact guard assistance. Up and down 15 steps independently. With occupational therapy, independent with bed mobilization, supervis ion with [id number]-hd-[id number] transfers and is participating very well according to the therapist. In additi on, did warm bath, did so independently. Don and doff upper lower body garment independently. Don a nd doff socks independently. Assessment: Mr. Paulino is a 64-year-old patient with systolic heart failure exacerbation. He has decr eased mobility, decreased physical functioning, gas and bloating. He has constipation, pain. He has orthostatic hypotension, elevated heart rate as noted. He has end-stage renal disease, on hemodialy sis, dialysis 3 times weekly. He has diabetes mellitus with Semglee insulin on board. Hemoglobin A1 c was normal. Lipitor 40 mg at bedtime, aspirin 81 mg daily, Cordarone 200 mg daily. Does have albu min on board. Plan: We will continue with physical and occupational therapy 3 hours a day, 5 of 7 days. Continue with all comorbid condition medications, which have been listed. Continue with hemodialysis, which i s 3 days weekly. Hemoglobin A1c again is normal; however, did have still elevated blood sugars up to 230. He will still be monitored for blood sugars. TERESA/TERRELL Voice ID: [id number] Report ID: [id number]
[2024-07-31] MEDS: CRANBERRY FRUIT EXTRACT 425 MG CAPSULE PO SCH (07:25)
[2024-07-31] MEDS: CYANOCOBALAMIN 1,000 MCG TAB PO SCH (07:27)
[2024-07-31] MEDS: DRISDOL (VITAMIN D=ERGOCALCIFEROL) 50000 UNIT CAP PO SCH (08:56)
--- NOTE | 2024-07-31 10:35 | RAD REPORT ---
Procedure: Chest Single View HISTORY: Rule out tuberculosis COMPARISON: July 25, 2024 FINDINGS: The lungs appear clear of acute infiltrate. No significant pleural effusion noted. The heart is moderately enlarged. Central venous catheter in place IMPRESSION: No evidence of active tuberculosis.
--- NOTE | 2024-07-31 11:23 | P.PN ---
(S) Pt seen ambulating from bathroom to bed, using walker, denies orthostatic symptoms, CARRION stable, tolerating HD, last HD yesterday, Lt upper chest swelling better he reports (O) Vitals reviewed in the EMR General: Alert, In no apparent distress, Oriented x3 HEENT: Atraumatic, not needing O2 Neck: Supple, Rt IJ TDC Respiratory: Normal air movement, non tachypnec, reduced BS lt base Cardiovascular: Non tachy, no cardiac gallop heart sounds appreciated, left chest swelling, life vest Gastrointestinal: Mild distention, NT Musculoskeletal: chronic 1+ peripheral edema b/l, some mild swelling of hands, gouty tophi and other OA nodes Integumentary: No rashes Neurological: Normal speech, Normal tone, Normal affect Conclusions/Impression: 1. Prior BRIDGER/ARF episodes without need for SOLUTION DEVELOPER over the past 1-1.5 years, on underlying CKD Stage IV 2nd to Type 1/2 CRS, other but then with Stage III ARF episode in Oct and HD dependent now for > 30 days, cont iHD via TDC. F/u on OP chair time 2. 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 Management per cardiology, cont Entresto if BP allows 3. chronic HTN -controlled, was in shock back in Oct, not current needing additional afterload reduction, target BP < 130/80 4. Abnormality of albumin -multifactorial -cont nutritional support
--- NOTE | 2024-07-31 14:05 | P.RH.PN ---
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 [employer] Goal: Mobility, Transfers, Self Care Vital Signs: Last Vital Signs Temp 97.7 F 07/31/24 07:00 Pulse 73 07/31/24 09:24 Resp 18 07/31/24 08:25 BP 114/73 07/31/24 09:24 Pulse Ox 94 07/31/24 08:25 Laboratory: Laboratory Last Values WBC 9.40 thou/uL (4.3-10.9) 07/30/24 05:06 RBC 3.27 M/uL (4.33-5.43) L 07/30/24 05:06 Hgb 10.6 g/dL (13.6-17.9) L 07/30/24 05:06 Hct 31.1 % (39.6-49.0) L 07/30/24 05:06 MCV 95.1 fL (80-100) 07/30/24 05:06 MCH 32.4 pg (27.0-35.0) 07/30/24 05:06 MCHC 34.0 g/dL (32.0-36.0) 07/30/24 05:06 RDW 21.3 % (12.1-15.2) H 07/30/24 05:06 Plt Count 185 thou/uL (152-406) 07/30/24 05:06 MPV 8.2 fL (7.6-11.3) 07/30/24 05:06 Neutrophils % 75.4 % (41.7-73.7) H 07/30/24 05:06 Lymphocytes % 14.7 % (15.3-44.8) L 07/30/24 05:06 Monocytes % 9.3 % (3.3-12.3) 07/30/24 05:06 Eosinophils % 0.4 % (0-4.4) 07/30/24 05:06 Basophils % 0.2 % (0-1.3) 07/30/24 05:06 Absolute Neutrophils 7.1 K/uL (1.8-8.0) 07/30/24 05:06 Absolute Lymphocytes 1.4 K/uL (0.7-4.9) 07/30/24 05:06 Absolute Monocytes 0.9 K/uL (0.1-1.3) 07/30/24 05:06 Absolute Eosinophils 0.0 K/uL (0-0.5) 07/30/24 05:06 Absolute Basophils 0.0 K/uL (0-0.5) 07/30/24 05:06 Platelet Estimate Adeq 07/28/24 05:39 Anisocytosis 1+ 07/28/24 05:39 Microcytosis Slight 07/28/24 05:39 [place] Cells 1+ 07/28/24 05:39 Schistocytes Few 07/28/24 05:39 Morphology Comment Noted (NOT SEEN) 07/28/24 05:39 Sodium 138 mEq/L (136-145) 07/30/24 05:06 Potassium 4.4 mEq/L (3.5-5.1) 07/30/24 05:06 Chloride 105 mEq/L (98-107) 07/30/24 05:06 Carbon Dioxide 27 mEq/L (21-32) 07/30/24 05:06 Anion Gap 10.4 mEq/L (5.0-15.0) 07/30/24 05:06 BUN 60 mg/dL (7-18) H 07/30/24 05:06 Creatinine 3.91 mg/dL (0.70-1.30) H 07/30/24 05:06 Est GFR (CKD-EPI) 16 ml/min (=/>90) L 07/30/24 05:06 Glucose 107 mg/dL (74-106) H 07/30/24 05:06 POC Glucose 211 mg/dL (65-120) H 07/31/24 11:09 Hemoglobin A1c 5.3 % (4.2-6.3) 07/30/24 05:06 Calcium 9.0 mg/dL (8.5-10.1) 07/30/24 05:06 Magnesium 2.2 mg/dL (1.6-2.4) 07/30/24 05:06 Albumin 2.8 g/dL (3.4-5.0) L 07/30/24 05:06 Prealbumin 37.3 mg/dL (20-40) 07/30/24 05:06 Urine Color Yellow (Yellow) 07/28/24 02:30 Urine Clarity Extremely turbid (Clear) H 07/28/24 02:30 Urine pH 5.5 (5.0-7.0) 07/28/24 02:30 Ur Specific [place] 1.019 (1.005-1.030) 07/28/24 02:30 Glucose (UA)(Auto) Negative (Negative) 07/28/24 02:30 Urine Ketones Negative (Negative) 07/28/24 02:30 Urine Blood Trace (Negative) H 07/28/24 02:30 Urine Nitrite Negative (Negative) 07/28/24 02:30 Urine Bilirubin 1+ (Negative) H 07/28/24 02:30 Urine Urobilinogen 1+ (Normal) H 07/28/24 02:30 Ur Leukocyte Esterase 75 Vandana/uL (Negative) H 07/28/24 02:30 Urine RBC <5 /HPF (None Seen) 07/28/24 02:30 Urine WBC <5 /HPF (<5) 07/28/24 02:30 Urine WBC Clumps Rare /HPF (None Seen) 07/28/24 02:30 Ur Squamous Epith Cells <5 /HPF (None Seen) 07/28/24 02:30 Ur Renal Epithelial Cell <5 /HPF (None Seen) 07/28/24 02:30 Urine Bacteria None seen /HPF (<20) 07/28/24 02:30 Hyaline Casts 0-5 /LPF (None Seen) 07/28/24 02:30 Urine Mucus Slight /HPF (None Seen) 07/28/24 02:30 Urine Culture Reflexed Not needed 07/28/24 02:30 Urine Total Protein 2+ (Negative) H 07/28/24 02:30 Hep Bs Antigen Nonreactive (Nonreactive) 07/28/24 11:34 Hep B Surface Ag Comm Report 07/28/24 11:34 Hep Bs Antibody Reactive (Nonreactive) H 07/28/24 11:34 Hep Bs Antibody, Quant 78.33 mIU/mL (<8.0) 07/28/24 11:34 Smear Scan Ok (OK) 07/28/24 05:39 Weight: 204 lb 3.2 oz Wound Present: No Closed Surgical Incision Present: No Negative Pressure Wound Therapy Present: No Physician Update: Labs reviewed and are stable. Met 3 STG and 4 LTG. RW 325, 15 stairs independenly. Met his goals with OT. Summary: Patient's care plan and snf goals have been reviewed and revised as necessary. Please see the Rehabilitation Signature page for all necessary signatures.
[2024-07-31] MEDS: SACUBITRIL/VALSARTAN 24/26 MG TAB PO SCH (20:00)
[2024-07-31] MEDS: Mupirocin NASAL 2 APPL/1 GM TUBE NAS SCH (20:04)
[2024-08-01 08:32] VITALS: BP 105/69; TEMP 97.8
[2024-08-01] MEDS: ALBUMIN HUMAN 25% 100 ML IV SCH (10:00)
[2024-08-07] MEDS ORDERED: DRISDOL (VITAMIN D=ERGOCALCIFEROL) 50000 UNIT CAP PO SCH (09:00)
== END 2024-08-01 16:10 | disposition home or self-care (01) | DRG 291 ==
LOC: 5TH 07-27 19:35
PROVIDERS: ADMIT Psychiatry & Neurology Neurology with Special Qualifications in Child Neurology; ATTEND Psychiatry & Neurology Neurology with Special Qualifications in Child Neurology
PROC: 5A1D70Z Performance of Urinary Filtration, Intermittent, Less than 6 Hours Per Day (ICD-10-PCS; principal; 2024-07-28)
PROC: 5A1D70Z Performance of Urinary Filtration, Intermittent, Less than 6 Hours Per Day (ICD-10-PCS; 2024-07-30)
PROC: 5A1D70Z Performance of Urinary Filtration, Intermittent, Less than 6 Hours Per Day (ICD-10-PCS; 2024-08-01)
DX: I13.2 Hypertensive heart and chronic kidney disease with heart failure and with stage 5 chronic kidney disease, or end stage renal disease (principal); I50.23 Acute on chronic systolic (congestive) heart failure; N18.6 End stage renal disease; K22.11 Ulcer of esophagus with bleeding; R57.0 Cardiogenic shock; I48.19 Other persistent atrial fibrillation; K86.0 Alcohol-induced chronic pancreatitis; I31.39 Other pericardial effusion (noninflammatory); D62 Acute posthemorrhagic anemia; E87.20 Acidosis, unspecified; N17.9 Acute kidney failure, unspecified; I42.8 Other cardiomyopathies; I25.2 Old myocardial infarction; E87.5 Hyperkalemia; D69.6 Thrombocytopenia, unspecified; D64.9 Anemia, unspecified; E78.5 Hyperlipidemia, unspecified; R06.89 Other abnormalities of breathing; E11.22 Type 2 diabetes mellitus with diabetic chronic kidney disease; E11.65 Type 2 diabetes mellitus with hyperglycemia; K59.00 Constipation, unspecified; I95.1 Orthostatic hypotension; Z99.2 Dependence on renal dialysis; Z79.4 Long term (current) use of insulin
CPT/HCPCS: 36415; 71045; 80048; 81001; 82040; 82947; 83036; 83735; 84134; 85025; 86706; 87077; 87086; 87088; 87186; 87340; 90935; 94010; 97110; 97112; 97116; 97163; 97165; 97530; J1644; J2003; J7512; P9047

== ENCOUNTER 2024-08-12 20:58 | Emergency (ER) | payer OTHER ==
[2024-08-12 22:27] LABS: Absolute Basophils 0.1 K/uL (0-0.5); Absolute Lymphocytes (CBC) 1.3 K/uL (0.7-4.9); Absolute Monocytes 0.5 K/uL (0.1-1.3); Absolute Neutrophil 7.3 K/uL (1.8-8.0); Basophils % 0.6 % (0-1.3); Hematocrit 32.9 % (39.6-49.0); Hemoglobin 10.6 g/dL (13.6-17.9); Lymphocytes % 13.8 % (15.3-44.8); MCH 31.3 pg (27.0-35.0); MCHC 32.2 g/dL (32.0-36.0); MCV 97.2 fL (80-100); MPV 10.3 fL (7.6-11.3); Monocytes % 5.4 % (3.3-12.3); Neutrophils % 80.2 % (41.7-73.7); Nucleated RBC Absolute Count 0.3 (0-0); Nucleated Red Blood Cells % 3.7 % (0-0); Platelets 158 thou/uL (152-406); RBC Red Blood Cell Count 3.38 M/uL (4.33-5.43); Red Cell Distribution Width 19.8 % (12.1-15.2)
[2024-08-12] MEDS ORDERED: ONDANSETRON 4 MG/2 ML VIAL ONE (22:27)
[2024-08-12] MEDS ORDERED: MORPHINE 4 MG/ML SYR ONE (22:28)
[2024-08-12] MEDS ORDERED: DIPHENOX/ATROP SULF 1 TAB PO ONE (22:28)
[2024-08-12 22:36] LABS: PT Prothrombin Time 17.3 SECONDS (9.4-12.5); Protime INR 1.56
[2024-08-12 22:48] LABS: Albumin 3.3 g/dL (3.4-5.0); Albumin/Globulin Ratio 0.8 (1.1-1.8); Bilirubin Direct 1.7 mg/dL (0-0.2); Bilirubin Indirect, Calculated 1.1 mg/dL (0.2-0.8); Bilirubin Total 2.8 mg/dL (0.2-1.0); Globulin 4.3 g/dL (2.3-3.5); Magnesium 2.5 mg/dL (1.6-2.4); Protein, Total 7.6 g/dL (6.4-8.2)
[2024-08-12 22:52] LABS: Troponin High Sensitivity 909.8 pg/mL (<58.9)
[2024-08-13] MEDS ORDERED: INSULIN REGULAR (HUMAN) 100 UNIT/ML ONE
[2024-08-13] MEDS ORDERED: CALCIUM GLUCONATE 1 GM IVPB 2 GM/100 ML BAG IV ONE (00:01)
[2024-08-13] MEDS ORDERED: D10W 250 ML IV ONE (00:02)
--- NOTE | 2024-08-13 00:38 | RAD REPORT ---
EXAM: CT Chest, Abdomen and Pelvis Without Intravenous Contrast CLINICAL HISTORY: Chest pain, Abdominal distention. TECHNIQUE: Axial computed tomography images of the chest, abdomen and pelvis without intravenous contrast. Sag ittal and coronal reformatted images were created and reviewed. This CT exam was performed using one or more of the following dose reduction techniques: automated exposure control, adjustment of t he mA and/or kV according to patient size, and/or use of iterative reconstruction technique. COMPARISON: CT Chest 06/06/[address] Abdomen Pelvis 05/25/2024. FINDINGS: CHEST: Lungs: Patchy bibasilar groundglass opacities. Pleural space: Unremarkable. No significant effusion. No pneumothorax. Heart: The heart is moderately enlarged. Small pericardial effusion decreased from the prior. No significant coronary artery calcifications. ABDOMEN: Liver: The liver is enlarged with surface contour nodularity suggestive of cirrhosis. Gallbladder and bile ducts: Unremarkable. No calcified stones. No ductal dilation. Pancreas: Unremarkable. No ductal dilation. Spleen: Unremarkable. No splenomegaly. Adrenals: Unremarkable. No mass. Kidneys and ureters: Bilateral renal atrophy. No calculi. No hydronephrosis. Right renal cysts, the largest measuring 1.7 cm. No follow-up imaging is recommended. JACR 2018 Fe; 264-273, Management of the Incidental Renal Mass on CT, [employer] 2020; 814-848, Bosniak Classification of Cystic Mao al Masses, Version 2019. Stomach and bowel: Colonic diverticula without adjacent inflammatory change. No obstruction. No mucosal thickening. PELVIS: Appendix: The appendix is not definitively visualized. No findings to suggest acute appendicitis. Bladder: Unremarkable. No stones. Reproductive: Unremarkable as visualized. CHEST, ABDOMEN and PELVIS: Intraperitoneal space: Small volume ascites. Bones/joints: Multilevel spondylosis. No acute fracture. No dislocation. Soft tissues: There is a well-circumscribed mildly inhomogeneous subpectoral collection on the left measuring approximately 16.1 x 7.1 x 14.2 cm. There is a smaller subpectoral collection on the right with adjacent surgical clips measuring approximately 4.7 x 2 x 4.4 cm. Right-sided gynecomastia . Small periumbilical hernia containing fat and ascitic fluid. Small to moderate bilateral fat-containing inguinal hernias. A small amount of ascitic fluid is present on the right. Vasculature: Severe atherosclerotic disease. No aortic aneurysm. Interval placement of a left sub clavian venous stent. Lymph nodes: Unremarkable. No enlarged lymph nodes. Tubes, lines and devices: Right internal jugular approach tunneled catheter terminates at the cavoa trial junction. IMPRESSION: 1. Patchy bibasilar groundglass opacities (atelectasis and/or infiltrate). 2. Bilateral subpectoral collections, left greater than right suggestive of hematomas/seromas. 3. Findings suggestive of hepatic cirrhosis. Small volume ascites. 4. Other findings as above. Electronically signed by: Lester Nunez MD 08/13/2024 12:26 AM [facility] Due to temporary technical issues with the PACS/CoinPass reporting system, reports are being colton d by the in-house radiologist without review as a courtesy to ensure prompt reporting the interpreting radiologist is fully responsible for the content of the report. Transcribed Date/Time: 08/13/2024 12:38 AM
[2024-08-13 01:24] LABS: Differential Total Cells Count 100
[2024-08-13 01:25] LABS: Anisocytosis 1+; Blood Morphology Comment NOTED (NOT SEEN); Lymphocytes 13 % (15-42); Monocytes 6 % (0-10); Nucleated Red Blood Cells 5 /100WBC; Platelet Estimate ADEQ; Polychromasia 1+; Segmented Neutrophils 81 % (40-80)
[2024-08-13] MEDS ORDERED: ONDANSETRON 4 MG/2 ML VIAL ONE (03:33)
[2024-08-13] MEDS ORDERED: HYDROMORPHONE HCL 1 MG/ML INJ ONE (03:34)
--- NOTE | 2024-08-13 03:35 | ER ---
Nurse's Notes [facility] Name: Natan Paulino Age: 64 yrs Sex: Male : 1960 Arrival Date: 08/12/2024 Time: 20:58 Bed 15 Private MD: Diagnosis: Hyperkalemia;Acute hyperkalemia, acute volume overload, NSTEMI, elevated troponin level, end-stage renal disease dialysis dependent. Presentation: 08/12 21:10 Chief complaint: EMS states: TONED OUT FOR CHEST PAIN THAT BEGAN APPROX 2PM TODAY. PT dd2 HAS A LIFE VEST AFTER DEFIB/PACER WAS REMOVED 2.5 MONTHS AGO. Coronavirus screen: At this time, the client does not indicate any symptoms associated with coronavirus-19. Ebola Screen: No symptoms or risks identified at this time. Initial Sepsis Screen: Does the patient meet any 2 criteria? No. Patient's initial sepsis screen is negative. Does the patient have a suspected source of infection? No. Patient's initial sepsis screen is negative. Risk Assessment: Do you want to hurt yourself or someone else? Patient reports no desire to harm self or others. Onset of symptoms was August 12, 2024. Care prior to arrival: Medication(s) given: ASA, 243MG TO TOTAL 324MG Oxygen administered. via nasal cannula. 21:10 Method Of Arrival: EMS: [facility] dd2 21:10 Acuity: NINO 3 dd2 Triage Assessment: 21:41 General: Appears uncomfortable, Behavior is calm, cooperative, appropriate for age. dd2 Pain: Complains of pain in chest Pain does not radiate. Pain currently is 8 out of 10 on a pain scale. Quality of pain is described as sharp. EENT: No deficits noted. No signs and/or symptoms were reported regarding the EENT system. Neuro: No deficits noted. Cardiovascular: Reports chest pain, Heart tones S1 S2 Patient's skin is warm and dry. PT HAS A LIFE VEST . Respiratory: No deficits noted. Airway is patent Respiratory effort is even, unlabored, Respiratory pattern is regular, symmetrical. GI: Abdomen is round non-distended, Bowel sounds present X 4 quads. Abd is soft and non tender X 4 quads. Reports diarrhea. : DIALYSIS CATHETER RT CW Reports DIALYSIS T,TH,SAT. Derm: No deficits noted. No signs and/or symptoms reported regarding the dermatologic system. Musculoskeletal: No deficits noted. No signs and/or symptoms reported regarding the musculoskeletal system. Circulation, motion, and sensation intact. Range of motion: intact in all extremities. Historical: - Allergies: 21:41 PENICILLINS; dd2 - PMHx: 21:41 Atrial fibrillation; CHF; Gout; Hypertension; kidney disease; Myocardial infarction; dd2 osteoarthritis; Pancreatitis; Rheumatoid Arthritis; stroke; TIA; - PSHx: 21:41 finger; heart stent; Stented artery; dd2 - Immunization history:: Adult Immunizations up to date. - Infectious Disease History:: Denies. - Social history:: Smoking status: Patient denies any tobacco usage or history of. - Family history:: not pertinent. Screenin:35 [facility] ED Fall Risk Assessment (Adult) History of falling in the last 3 months, dd2 including since admission No falls in past 3 months (0 pts) Confusion or Disorientation No (0 pts) Intoxicated or Sedated No (0 pts) Impaired Gait No (0 pts) Mobility Assist Device Used No (0 pt) Altered Elimination No (0 pt) Score/Fall Risk Level 0 - 2 = Low Risk Oriented to surroundings, Maintained a safe environment, Educated pt \T\ family on fall prevention, incl call for assistance when getting out of bed, Assessed \T\ reinforced patient's understanding of fall precautions, Hourly rounding (assess needs \T\ fall precautionary measures) done. Abuse screen: Denies threats or abuse. Nutritional screening: No deficits noted. Tuberculosis screening: No symptoms or risk factors identified. Assessment: 21:43 Reassessment: SEE TRIAGE ASSESSMENT FOR FULL ASSESSMENT. dd2 23:30 Reassessment: No changes from previously documented assessment. Patient is alert, dd2 oriented x 3, equal unlabored respirations, skin warm/dry/pink. Patient states symptoms have not improved. 08/13 02:00 Reassessment: Pt resting quietly, respirations even and unlabored. NAD noted at this dd2 time. 03:58 Reassessment: Patient is alert, oriented x 3, equal unlabored respirations, skin dd2 warm/dry/pink. Pt medicated for Chest pain 02/25. MARVA Cochran at bedside for Inpatient assessment. 05:44 Reassessment: Pt sleeping quietly at this time. Respirations even and unlabored. NAD dd2 noted at this time. Vital Signs: 08/12 21:10 BP 137 / 105; Pulse 85; Resp 16; Temp 98.8(O); Pulse Ox 100% on R/A; Weight 83.91 kg dd2 (R); 21:30 BP 134 / 105; Pulse 86; Resp 17; Pulse Ox 100% on 2 lpm NC; dd2 22:00 BP 133 / 105; Pulse 84; Resp 16; Pulse Ox 100% on 2 lpm NC; dd2 23:00 BP 139 / 106; Pulse 81; Resp 16; Pulse Ox 100% on 2 lpm NC; dd2 23:30 BP 144 / 108; Pulse 90; Resp 17; Pulse Ox 100% on 2 lpm NC; dd2 08/13 00:05 BP 145 / 99; Pulse 87; Resp 16; Pulse Ox 100% on 2 lpm NC; dd2 00:30 BP 137 / 105; Pulse 88; Resp 17; Pulse Ox 100% on 2 lpm NC; dd2 01:00 BP 147 / 109; Pulse 85; Resp 16; Pulse Ox 100% on 2 lpm NC; dd2 02:08 BP 133 / 106; Pulse 85; Resp 16; Temp 98.4; Pulse Ox 100% on 2 lpm NC; dd2 02:35 BP 133 / 102; Pulse 89; Resp 16; Pulse Ox 100% on 2 lpm NC; dd2 03:00 BP 132 / 100; Pulse 87; Resp 17; Pulse Ox 97% on 2 lpm NC; dd2 03:30 BP 131 / 101; Pulse 85; Resp 16; Pulse Ox 100% on 2 lpm NC; dd2 04:00 BP 140 / 107; Pulse 85; Resp 16; Pulse Ox 100% on 2 lpm NC; dd2 04:30 BP 146 / 105; Pulse 84; Resp 16; Pulse Ox 100% on 2 lpm NC; dd2 05:00 BP 138 / 103; Pulse 81; Resp 16; Pulse Ox 100% on 2 lpm NC; dd2 05:30 BP 147 / 107; Pulse 80; Resp 16; Pulse Ox 100% on 2 lpm NC; dd2 [place] Coma Score: 08/12 21:23 Eye Response: spontaneous(4). Motor Response: obeys commands(6). Verbal Response: sp4 oriented(5). Total: 15. 22:35 Eye Response: spontaneous(4). Motor Response: obeys commands(6). Verbal Response: dd2 oriented(5). Total: 15. ED Course: 21:15 Patient arrived in ED. vk 21:23 KEN SZYMANSKI, RN is Primary Nurse. dd2 21:24 Frandy Sims MD is Attending Physician. sp4 21:26 EKG done, by [employer]. af3 21:41 Triage completed. dd2 21:41 Arm band placed on right wrist. Patient placed in an exam room, on a stretcher, on dd2 oxygen, on pulse oximetry. 22:35 No provider procedures requiring assistance completed. Initial lab(s) drawn, by me, dd2 sent to lab. Flu and/or RSV swab sent to lab. Inserted saline lock: 20 gauge in right upper arm, using aseptic technique. Blood collected. Flushed with 10 mL NS. Oxygen administration via nasal cannula \T\ 2L/min. 22:35 Patient has correct armband on for positive identification. Bed in low position. Call dd2 light in reach. Side rails up X 1. Client placed on continuous cardiac and pulse oximetry monitoring. NIBP monitoring applied. analyst sales on. Door closed. Noise minimized. Warm blanket given. Pillow given. Verbal reassurance given. 22:56 XRAY Chest (1 view) In Process Unspecified. EDMS 23:37 CT Chest Abdomen Pelvis W/O Contrast In Process Unspecified. EDMS 08/13 03:33 Thomas Boyle is Hospitalizing Provider. sp4 03:53 Inserted IV discontinued, intact, bleeding controlled, Pressure dressing applied. dd2 03:53 Inserted saline lock: 22 gauge in right antecubital area, using aseptic technique. dd2 Flushed with 10 mL NS. 03:59 Hospitalizing Provider role handed off by Thomas Boyle sp4 03:59 Abram Cerrato MD is Hospitalizing Provider. sp4 07:01 Patient transferred, IV remains in place. dd2 Administered Medications: 08/12 22:34 Drug: morphine IVP or IV 4 mg IVP once over 4 mins Route: IVP; Infused Over: 4 mins; dd2 Site: right upper arm; 22:49 Follow up: Response: No adverse reaction dd2 22:34 Drug: Ondansetron IVP 4 mg IVP once; over 2 minutes Route: IVP; Site: right upper arm; dd2 22:49 Follow up: Response: No adverse reaction dd2 22:34 Drug: Diphenoxylate-Atropine PO 2 tabs PO once Route: PO; dd2 23:04 Follow up: Response: No adverse reaction dd2 08/13 00:17 Drug: Insulin Regular Human IVP 10 units IVP once {Co-Signature: [email or web address] (Jw Jackson dd2 RN).} Route: IVP; Site: right upper arm; 00:32 Follow up: Response: No adverse reaction dd2 00:17 Drug: D10 in Water IVP 250 ml IVP once Route: IVP; Site: right upper arm; dd2 00:32 Follow up: Response: No adverse reaction dd2 00:19 Drug: Calcium Gluconate IVPB 2 grams IVPB once over 60 mins; (mix in NS 100 mL) Route: dd2 IVPB; Infused Over: 60 mins; Site: right upper arm; 00:34 Follow up: Response: No adverse reaction dd2 01:19 Follow up: IV Status: Completed infusion; IV Intake: 100ml dd2 00:19 Drug: Sodium Bicarbonate IVP 1 amp IVP once; (50 mL); equals 50 mEq Route: IVP; Site: dd2 right upper arm; 00:34 Follow up: Response: No adverse reaction dd2 03:53 Drug: HYDROmorphone IVP 1 mg IVP once Route: IVP; Site: right antecubital; dd2 04:08 Follow up: Response: No adverse reaction dd2 03:53 Drug: Ondansetron IVP 4 mg IVP once; over 2 minutes Route: IVP; Site: right antecubital;dd2 04:08 Follow up: Response: No adverse reaction dd2 Medication: 08/12 22:35 VIS not applicable for this client. dd2 Intake: 08/13 01:19 IV: 100ml; Total: 100ml. dd2 Outcome: 03:34 Decision to Hospitalize by Provider. sp4 04:37 ER care complete, transfer ordered by . sp4 07:01 Transferred by [facility] to [facility], Transfer form completed. dd2 07:01 Condition: stable 07:01 Instructed on the need for transfer, Demonstrated understanding of instructions, 07:02 Patient left the ED. dd2 Signatures: Dispatcher [employer] EDMS Frandy Sims MD MD sp4 Karen Richard Ashley af3 DAVIS, DIANA, RN RN dd2 Jw Jackson RN [email or web address] Corrections: (The following items were deleted from the chart) 02:08/12 21:41 Cardiovascular: Reports chest pain, Heart tones S1 S2 Patient's skin is dd2 warm and dry. dd2 08/13 02:03 08/12 21:41 GI: No deficits noted. No signs and/or symptoms were reported involving the dd2 gastrointestinal system. dd2 08/13 02:03 08/12 21:41 : No deficits noted. No signs and/or symptoms were reported regarding the dd2 genitourinary system. dd2
--- NOTE | 2024-08-13 03:36 | EDPHYS ---
Physician Documentation [facility] Name: Natan Paulino Age: 64 yrs Sex: Male : 1960 Arrival Date: 08/12/2024 Time: 20:58 Bed 15 Private MD: ED Physician Frandy Sims HPI: 08/12 21:24 This 64 yrs old Black Male presents to ER via Unassigned with complaints of Chest Pain. sp4 08/13 03:25 64-year-old male presents with complaint of chest pain and back pain also associated sp4 watery diarrhea. Patient has history of end-stage renal disease on hemodialysis, atrial fibrillation, gout, hypertension, kidney disease, CO. . Historical: - Allergies: 08/12 21:41 PENICILLINS; dd2 - PMHx: 21:41 Atrial fibrillation; CHF; Gout; Hypertension; kidney disease; Myocardial infarction; dd2 osteoarthritis; Pancreatitis; Rheumatoid Arthritis; stroke; TIA; - PSHx: 21:41 finger; heart stent; Stented artery; dd2 - Immunization history:: Adult Immunizations up to date. - Infectious Disease History:: Denies. - Social history:: Smoking status: Patient denies any tobacco usage or history of. - Family history:: not pertinent. ROS: 08/13 03:28 Constitutional: Negative for fever, chills, and weight loss, positive chest pain sp4 positive back pain positive diarrhea All other systems are negative, 03:30 All other systems are negative, sp4 Exam: 03:30 Constitutional: This is a well developed, well nourished patient who is awake, alert, sp4 physically debilitated male with LifeVest in place Head/Face: Normocephalic, atraumatic. Eyes: Pupils equal round and reactive to light, extra-ocular motions intact. Lids and lashes normal. Conjunctiva and sclera are not injected. Cornea within normal limits. Periorbital areas with no swelling, redness, or edema. ENT: Nares patent. No nasal discharge, no septal abnormalities noted. Tympanic membranes are normal and external auditory canals are clear. Oropharynx with no redness, swelling, or masses, exudates, or evidence of obstruction, uvula midline. Mucous membranes moist. Neck: Trachea midline, no thyromegaly or masses palpated, and no cervical lymphadenopathy. Supple, full range of motion without nuchal rigidity, or vertebral point tenderness. Chest/axilla: Normal chest wall appearance and motion. Nontender with no deformity. No lesions are appreciated. There is right sided chest wall hemodialysis port. Cardiovascular: Regular rate and rhythm with a normal S1 and S2. No gallops, murmurs, or rubs. Normal PMI, no JVD. No pulse deficits. Respiratory: Lungs have equal breath sounds bilaterally, clear to auscultation and percussion. No rales, rhonchi or wheezes noted. No increased work of breathing, no retractions or nasal flaring. Abdomen/GI: Soft, with normal bowel sounds. No distension or tympany. No guarding or rebound. No evidence of tenderness throughout. Back: No spinal tenderness. No costovertebral tenderness. Skin: Warm, dry with normal turgor. Normal color with no rashes, no lesions, and no evidence of cellulitis. MS/ Extremity: Pulses equal, no cyanosis. Neurovascular intact. Full, normal range of motion. Neuro: Awake and alert, GCS 15, oriented to person, place, time, and situation. Cranial nerves II-XII grossly intact. Motor strength 5/5 in all extremities. Sensory grossly intact. Psych: Awake, alert, with orientation to person, place and time. Behavior, mood, and affect are within normal limits 03:30 ECG was reviewed by the Attending Physician. EKG at 2122 sinus rhythm with first-degree AV block left axis deviation left bundle branch block Vital Signs: 08/12 21:10 BP 137 / 105; Pulse 85; Resp 16; Temp 98.8(O); Pulse Ox 100% on R/A; Weight 83.91 kg dd2 (R); 21:30 BP 134 / 105; Pulse 86; Resp 17; Pulse Ox 100% on 2 lpm NC; dd2 22:00 BP 133 / 105; Pulse 84; Resp 16; Pulse Ox 100% on 2 lpm NC; dd2 23:00 BP 139 / 106; Pulse 81; Resp 16; Pulse Ox 100% on 2 lpm NC; dd2 23:30 BP 144 / 108; Pulse 90; Resp 17; Pulse Ox 100% on 2 lpm NC; dd2 08/13 00:05 BP 145 / 99; Pulse 87; Resp 16; Pulse Ox 100% on 2 lpm NC; dd2 00:30 BP 137 / 105; Pulse 88; Resp 17; Pulse Ox 100% on 2 lpm NC; dd2 01:00 BP 147 / 109; Pulse 85; Resp 16; Pulse Ox 100% on 2 lpm NC; dd2 02:08 BP 133 / 106; Pulse 85; Resp 16; Temp 98.4; Pulse Ox 100% on 2 lpm NC; dd2 02:35 BP 133 / 102; Pulse 89; Resp 16; Pulse Ox 100% on 2 lpm NC; dd2 03:00 BP 132 / 100; Pulse 87; Resp 17; Pulse Ox 97% on 2 lpm NC; dd2 03:30 BP 131 / 101; Pulse 85; Resp 16; Pulse Ox 100% on 2 lpm NC; dd2 04:00 BP 140 / 107; Pulse 85; Resp 16; Pulse Ox 100% on 2 lpm NC; dd2 04:30 BP 146 / 105; Pulse 84; Resp 16; Pulse Ox 100% on 2 lpm NC; dd2 05:00 BP 138 / 103; Pulse 81; Resp 16; Pulse Ox 100% on 2 lpm NC; dd2 05:30 BP 147 / 107; Pulse 80; Resp 16; Pulse Ox 100% on 2 lpm NC; dd2 [place] Coma Score: 08/12 21:23 Eye Response: spontaneous(4). Motor Response: obeys commands(6). Verbal Response: sp4 oriented(5). Total: 15. 22:35 Eye Response: spontaneous(4). Motor Response: obeys commands(6). Verbal Response: dd2 oriented(5). Total: 15. MDM: 08/13 01:41 Medical Screening Exam initiated cp 03:32 ED course: IMPRESSION: 1. Patchy bibasilar groundglass opacities (atelectasis and/or sp4 infiltrate). 2. Bilateral subpectoral collections, left greater than right suggestive of hematomas/seromas. 3. Findings suggestive of hepatic cirrhosis. Small volume ascites. 4. Other findings as above. Electronically signed by: Lester Nunez MD 08/13/2024 12:26 AM [employer] [facility]. 03:35 Differential diagnosis: acute myocardial infarction, acute pericarditis, anxiety, chest sp4 wall pain, esophagitis, gastritis. HEART Score: History: Moderately Suspicious (1), ECG: Non specific repolarization disturbance / LBTB / PM (1), Age: > or = 65 years (2), Risk Factors: > or = 3 Risk factors for atherosclerotic disease (2), Troponin: > or = 3 x Normal Limit (2), Total Score = 6. Data reviewed: vital signs, nurses notes, EMS record, lab test result(s), EKG, radiologic studies, CT scan, plain films. 05:35 ED course: EXAM: CT Chest, Abdomen and Pelvis Without Intravenous Contrast CLINICAL sp4 HISTORY: Chest pain, Abdominal distention. TECHNIQUE: Axial computed tomography images of the chest, abdomen and pelvis without intravenous contrast. Sagittal and coronal reformatted images were created and reviewed. This CT exam was performed using one or more of the following dose reduction techniques: automated exposure control, adjustment of the mA and/or kV according to patient size, and/or use of iterative reconstruction technique. COMPARISON: CT Chest 06/06/2024 and CTAbdomen Pelvis 05/25/2024. FINDINGS: CHEST: Lungs: Patchy bibasilar groundglass opacities. Pleural space: Unremarkable. No significant effusion. No pneumothorax. Heart: The heart is moderately enlarged. Small pericardial effusion decreased from the prior. No significant coronary artery calcifications. ABDOMEN: Liver: The liver is enlarged with surface contour nodularity suggestive of cirrhosis. Gallbladder and bile ducts: Unremarkable. No calcified stones. No ductal dilation. Pancreas: Unremarkable. No ductal dilation. Spleen: Unremarkable. No splenomegaly. Adrenals: Unremarkable. No mass. Kidneys and ureters: Bilateral renal atrophy. No calculi. No hydronephrosis. Right renal cysts, the largest measuring 1.7 cm. No follow-up imaging is recommended. JACR 2018 Sep; 264-273, Management of the Incidental Renal Mass on CT, [employer] 2020; 814-848, Bosniak Classification of Cystic Renal Masses, Version 2019. Stomach and bowel: Colonic diverticula without adjacent inflammatory change. No obstruction. No mucosal thickening. PELVIS: Appendix: The appendix is not definitively visualized. No findings to suggest acute appendicitis. Bladder: Unremarkable. No stones. Reproductive: Unremarkable as visualized. CHEST, ABDOMEN and PELVIS: Intraperitoneal space: Small volume ascites. Bones/joints: Multilevel spondylosis. No acute fracture. No dislocation. Soft tissues: There is a well-circumscribed mildly inhomogeneous subpectoral collection on the left measuring approximately 16.1 x 7.1 x 14.2 cm. There is a smaller subpectoral collection on the right with adjacent surgical clips measuring approximately 4.7 x 2 x 4.4 cm. Right-sided gynecomastia. Small periumbilical hernia containing fat and ascitic fluid. Small to moderate bilateral fatcontaining inguinal hernias. A small amount of ascitic fluid is present on the right. Vasculature: Severe atherosclerotic disease. No aortic aneurysm. Interval placement of a left subclavian venous stent. Lymph nodes: Unremarkable. No enlarged lymph nodes. Tubes, lines and devices: Right internal jugular approach tunneled catheter terminates at the cavoatrial junction. 08/12 21:55 Order name: Basic Metabolic Panel; Complete Time: 23:23 [facility] 08/12 21:55 Order name: CBC with Diff; Complete Time: 05:28 [facility] 08/12 21:55 Order name: LFT's; Complete Time: 23:23 [facility] 08/12 21:55 Order name: Magnesium; Complete Time: 23:23 [facility] 08/12 21:55 Order name: NT PRO-BNP; Complete Time: 23:23 [facility] 08/12 21:55 Order name: PT-INR; Complete Time: 23:23 [facility] 08/12 21:55 Order name: Troponin HS; Complete Time: 23:23 [facility] 08/12 21:56 Order name: CK; Complete Time: 23:23 [facility] 08/12 21:56 Order name: Lactate w/ 2H reflex if indic.; Complete Time: 23:23 [facility] 08/12 21:56 Order name: Influenza Screen (a \T\ B); Complete Time: 23:23 [facility] 08/12 23:00 Order name: Ghost Lactate-NO COLLECT Timer; Complete Time: 03:17 [facility] 08/13 01:26 Order name: Manual Differential; Complete Time: 05:28 [facility] 08/13 03:17 Order name: BMP; Complete Time: 04:58 [facility] 08/12 21:55 Order name: XRAY Chest (1 view) [facility] 08/12 22:19 Order name: CT Chest Abdomen Pelvis W/O Contrast; Complete Time: 03:17 [facility] 08/12 21:55 Order name: Cardiac monitoring; Complete Time: 21:55 [facility] 08/12 21:55 Order name: EKG - Nurse/Tech; Complete Time: 21:55 sp4 08/12 21:55 Order name: IV Saline Lock; Complete Time: 22:35 sp4 08/12 21:55 Order name: Labs collected and sent; Complete Time: 22:35 sp4 08/12 21:55 Order name: O2 Per Protocol; Complete Time: 21:56 sp4 08/12 21:55 Order name: O2 Sat Monitoring; Complete Time: 21:56 sp4 08/13 03:17 Order name: Accucheck Blood Glucose; Complete Time: 04:27 sp4 EC/25 21:23 Rate is 84 beats/min. Rhythm is regular, Sinus Rhythm. Left axis deviation noted. HI sp4 interval is normal. QRS interval is prolonged. QT interval is normal. No Q waves. T waves are Normal. No ST changes noted. Clinical impression: No evidence of ischemia. Interpreted by me. Reviewed by me. Administered Medications: 22:34 Drug: morphine IVP or IV 4 mg IVP once over 4 mins Route: IVP; Infused Over: 4 mins; dd2 Site: right upper arm; 22:49 Follow up: Response: No adverse reaction dd2 22:34 Drug: Ondansetron IVP 4 mg IVP once; over 2 minutes Route: IVP; Site: right upper arm; dd2 22:49 Follow up: Response: No adverse reaction dd2 22:34 Drug: Diphenoxylate-Atropine PO 2 tabs PO once Route: PO; dd2 23:04 Follow up: Response: No adverse reaction 2 08/13 00:17 Drug: Insulin Regular Human IVP 10 units IVP once {Co-Signature: [email or web address] (Jw Jackson dd2 RN).} Route: IVP; Site: right upper arm; 00:32 Follow up: Response: No adverse reaction dd2 00:17 Drug: D10 in Water IVP 250 ml IVP once Route: IVP; Site: right upper arm; dd2 00:32 Follow up: Response: No adverse reaction dd2 00:19 Drug: Calcium Gluconate IVPB 2 grams IVPB once over 60 mins; (mix in NS 100 mL) Route: dd2 IVPB; Infused Over: 60 mins; Site: right upper arm; 00:34 Follow up: Response: No adverse reaction dd2 01:19 Follow up: IV Status: Completed infusion; IV Intake: 100ml dd2 00:19 Drug: Sodium Bicarbonate IVP 1 amp IVP once; (50 mL); equals 50 mEq Route: IVP; Site: dd2 right upper arm; 00:34 Follow up: Response: No adverse reaction dd2 03:53 Drug: HYDROmorphone IVP 1 mg IVP once Route: IVP; Site: right antecubital; dd2 04:08 Follow up: Response: No adverse reaction dd2 03:53 Drug: Ondansetron IVP 4 mg IVP once; over 2 minutes Route: IVP; Site: right antecubital;dd2 04:08 Follow up: Response: No adverse reaction dd2 Disposition Summary: 08/13/24 04:37 Transfer Ordered Notes: Transfer Location: [facility] sp4 Reason: Higher level of care sp4 Condition: Stable(08/13/24 04:37) sp4 Problem: new(08/13/24 04:37) sp4 Symptoms: have improved(08/13/24 04:37) sp4 Accepting Physician: [facility]'s attending MD(08/13/24 07:02) dd2 Diagnosis - Hyperkalemia(08/13/24 04:37) sp4 - Acute hyperkalemia, acute volume overload, NSTEMI, elevated troponin level, sp4 end-stage renal disease dialysis dependent. Forms: - Medication Reconciliation Form sp4 - SBAR form sp4 Signatures: Dispatcher [employer] EDMS Brandon Patel PA PA cp Potepalov, Sergey, MD MD sp4 KEN SZYMANSKI RN RN dd2 Jw Jackson RN [email or web address] Corrections: (The following items were deleted from the chart) 08/12 21:56 21:56 BASIC METABOLIC PANEL+C.LAB.BRZ ordered. EDMS EDMS 21:56 21:56 CBC+H.LAB.BRZ ordered. EDMS EDMS 21:56 21:56 HEPATIC FUNCTION+C.LAB.BRZ ordered. EDMS EDMS 21:56 21:56 MAGNESIUM+C.LAB.BRZ ordered. EDMS EDMS 21:56 21:56 PROBNP+C.LAB.BRZ ordered. EDMS EDMS 21:56 21:56 PROTIME (+INR)+COAG.LAB.BRZ ordered. EDMS EDMS 21:56 21:56 Troponin High Sensitivity+C.LAB.BRZ ordered. EDMS EDMS 21:56 21:56 Chest Single View+RAD.RAD.BRZ ordered. EDMS EDMS 21:56 21:56 CREATINE PHOSPHOKINASE+C.LAB.BRZ ordered. EDMS EDMS 08/13 04:00 03:34 Thomas Boyle sp4 sp4 04:36 03:34 Inpatient Admission sp4 sp4 04:36 03:34 Telemetry/MedSurg (Inpatient) sp4 sp4 04:36 03:34 Stable sp4 sp4 04:36 03:34 new sp4 sp4 04:36 03:34 have improved sp4 sp4 04:36 03:34 Standard sp4 sp4 04:36 03:34 sp4 sp4 04:36 03:34 Hyperkalemia sp4 sp4 04:36 03:34 Acute hyperkalemia, lactic acidosis, NSTEMI, left pectoral postprocedural sp4 hematoma sp4 04:36 04:00 Abram Cerrato sp4 sp4 07:02 04:37 [facility]'s attending sp4 dd2
[2024-08-13 04:01] LABS: Anion Gap 15.5 mEq/L (5.0-15.0); Potassium 5.5 mEq/L (3.5-5.1)
--- NOTE | 2024-08-13 06:26 | RAD REPORT ---
EXAM: XR Chest, 1 View CLINICAL HISTORY: The patient is 64 years old and is Male; CHEST PAIN TECHNIQUE: Frontal view of the chest. COMPARISON: XR Chest dated July 07 2024 FINDINGS: LUNGS: Unremarkable. No consolidation. PLEURAL SPACE: Unremarkable. No pneumothorax. HEART: The cardiac silhouette is enlarged. MEDIASTINUM: Unremarkable. Normal mediastinal contour. BONES/JOINTS: Surgical clips overlie the right shoulder. No acute fracture. TUBES, LINES AND DEVICES: A right subclavian Vas-Cath is present with the tip at the SVC/RA junct ion. UPPER ABDOMEN: Unremarkable as visualized. IMPRESSION: Cardiomegaly without failure. Electronically signed by: Christiane Mancia MD 08/12/2024 11:14 PM [employer] Due to temporary technical issues with the PACS/[employer] reporting system, reports are being colton d by the in-house radiologist without review as a courtesy to ensure prompt reporting the interpreting radiologist is fully responsible for the content of the report. Transcribed Date/Time: 08/13/2024 6:26 AM
[2024-08-13 07:37] VITALS: TEMP 98.4
[2024-08-13 07:41] VITALS: O2SAT 100
[2024-08-13 07:46] VITALS: BP 147/107
--- NOTE | 2024-08-14 13:40 | EKG ---
Test Date: 2024-08-12 Test Time: 21:23:01 Petrography Teacher: GEE MEASUREMENT RESULTS: Intervals: Rate: 84 [place]: 216 QRSD: 150 QT: 416 QTc: 491 [place]: P: 35 [place]: 216 QRS: -50 T: 80 INTERPRETIVE STATEMENTS: Sinus rhythm with sinus arrhythmia with 1st degree AV block Left axis deviation Left bundle branch block Abnormal ECG Compared to ECG 05/25/2024 15:33:05 No significant changes Electronically Signed On 08-14-24 13:36:50 GENERAL TECHNICIAN by Shamar De Guzman
== END 2024-08-13 07:02 | disposition short-term general hospital (02) ==
LOC: ER 20:58
DX: I21.4 Non-ST elevation (NSTEMI) myocardial infarction (principal); E87.5 Hyperkalemia; E87.70 Fluid overload, unspecified; R79.89 Other specified abnormal findings of blood chemistry; I13.2 Hypertensive heart and chronic kidney disease with heart failure and with stage 5 chronic kidney disease, or end stage renal disease; N18.6 End stage renal disease; I50.9 Heart failure, unspecified; Z99.2 Dependence on renal dialysis; I48.91 Unspecified atrial fibrillation
CPT/HCPCS: 93005; 85025; 80048 ×2; 36415; 83735; 82550; 85610; 80076; 83605; 84484; 83880; 87804 ×2; 71250; 74176; 71045; 99285; J0612; J1171; J2405 ×2

== ENCOUNTER 2024-08-29 19:31 | Emergency (ER) | payer OTHER ==
--- NOTE | 2024-08-29 21:19 | RAD REPORT ---
EXAMINATION: CT Thorax Wo Con CLINICAL INDICATION: Male, 64 years old. [facility] MAIN chest wall hematoma, recent sx Bed Name: 16 Y TECHNIQUE: Axial CT scan of the chest without intravenous contrast. Multiplanar reformats were genera ana and reviewed. One or more of the following dose reduction techniques were used: Automated exposure control, adjustment of the mA and/or kV according patient size, and/or iterative reconstruct ion. Unless otherwise specified, incidental findings do not require dedicated imaging follow-up. COMPARISON: 08/12/2024 CT chest FINDINGS: LOWER NECK: Visualized thyroid gland and soft tissues are normal. LUNGS: Central interstitial prominence. Dependent subsegmental atelectasis. No evidence of airspace o r interstitial process. No worrisome nodules. PLEURA: Small layering right pleural effusion. No pneumothorax. . MEDIASTINUM AND LYMPH NODES: Stable cardiomegaly. Mild to moderate pericardial effusion. No mediastin al mass or fluid collection. Normal size mediastinal, hilar, and axillary lymph nodes. OSSEOUS STRUCTURES AND CHEST WALL: No acute or suspicious osseous abnormality. Stable collection nando cent to the right pectoralis muscles extending towards the axilla measuring 4.0 x 1.3 cm in greatest axial dimensions, stable, may reflect a chronic seroma, possibly related to implant removal. Stable configuration left breast augmentation. UPPER ABDOMEN: Nodular contour of the liver again seen, may suggest cirrhotic change. Mild upper abdo marlyn ascites.. IMPRESSION: Central interstitial prominence which may reflect mild central congestion. Stable cardiomegaly and pericardial effusion. Stable right layering small effusion and upper abdomina l ascites. Other stable findings as above.
[2024-08-29] MEDS ORDERED: FENTANYL CITR 100 MCG/2 ML ONE (21:20)
--- NOTE | 2024-08-29 21:34 | RAD REPORT ---
EXAMINATION: ONE VIEW CHEST XR CLINICAL INDICATION: Male, 64 years old.,CHEST PAIN TECHNIQUE: Frontal chest projection is submitted. Examination is limited by patient positioning and t echnique. COMPARISON: 08/12/2024 FINDINGS: Right IJ dialysis catheter unchanged in position. Central interstitial prominence. Decreased inspirat ory effort otherwise limits evaluation. Heart is again enlarged with flask shape configuration, may reflect a pericardial effusion. No pneumothorax. Mediastinal contours are unchanged, with numerou s metallic densities, overlying the chest wall, which limits evaluation. IMPRESSION: Stable findings as above including cardiomegaly and central interstitial prominence which may reflect central congestion/CHF.
[2024-08-29 21:43] LABS: Absolute Basophils 0.1 K/uL (0-0.5); Absolute Lymphocytes (CBC) 1.4 K/uL (0.7-4.9); Absolute Monocytes 0.9 K/uL (0.1-1.3); Absolute Neutrophil 5.5 K/uL (1.8-8.0); Basophils % 0.9 % (0-1.3); Eosinophils % 0.6 % (0-4.4); Hematocrit 35.6 % (39.6-49.0); Hemoglobin 11.6 g/dL (13.6-17.9); Lymphocytes % 17.1 % (15.3-44.8); MCH 31.7 pg (27.0-35.0); MCHC 32.7 g/dL (32.0-36.0); MCV 96.9 fL (80-100); Monocytes % 11.4 % (3.3-12.3); Platelets 166 thou/uL (152-406); RBC Red Blood Cell Count 3.68 M/uL (4.33-5.43); Red Cell Distribution Width 19.8 % (12.1-15.2)
[2024-08-29 21:47] LABS: Nucleated RBC Absolute Count 0.1 (0-0); Nucleated Red Blood Cells % 1.1 % (0-0)
[2024-08-29 21:52] LABS: Anion Gap 16.2 mEq/L (5.0-15.0); Potassium 4.2 mEq/L (3.5-5.1)
--- NOTE | 2024-08-29 23:49 | ER ---
Nurse's Notes [facility] Name: Natan Paulino Age: 64 yrs Sex: Male : 1960 Arrival Date: 08/29/2024 Time: 19:31 Bed 18 Private MD: Diagnosis: NSTEMI;[facility] Presentation: 08/29 19:44 Chief complaint: EMS states: toned out for CP (to hematoma on left upper chest) and me1 SOB. Patient has a hematoma to left upper chest wall from a balloon pump that was taken out 3-4 weeks ago. Patient has on an external defibrillator until they can place an internal one when the hematoma has resolved. Patient was on LVAD recently. Hx of CT 3 weeks ago, stent 4 weeks ago. Dialysis patient with right chest wall tunnel cath, last dialysis was today with 3 liters removed. Coronavirus screen: Vaccine status: Patient reports receiving the 2nd dose of the covid vaccine. Ebola Screen: No symptoms or risks identified at this time. Initial Sepsis Screen: Does the patient meet any 2 criteria? No. Patient's initial sepsis screen is negative. Does the patient have a suspected source of infection? No. Patient's initial sepsis screen is negative. Risk Assessment: Do you want to hurt yourself or someone else? Patient reports no desire to harm self or others. Onset of symptoms is unknown. 19:44 Method Of Arrival: EMS: [facility] 19:44 Acuity: NINO 3 me1 Triage Assessment: 19:49 General: Appears uncomfortable, well groomed, well developed, well nourished, Behavior me1 is calm, cooperative, appropriate for age, Reports intermittent chest pain to left upper chest where the hematoma is. States there is either no pain or about 30-45 seconds of sharp pain that is 6/10. Patient c/o sob associated with pain. Pain: Complains of pain in anterior aspect of left upper chest Pain does not radiate. Pain currently is 0 out of 10 on a pain scale. at worst was 6 out of 10 on a pain scale. Quality of pain is described as sharp, shooting, Pain began suddenly, Is intermittent. EENT: No signs and/or symptoms were reported regarding the EENT system. Neuro: Level of Consciousness is awake, alert, obeys commands, Oriented to person, place, time, situation, Appropriate for age. Cardiovascular: Patient's skin is warm and dry. Cardiovascular: Reports chest pain, shortness of breath. Respiratory: Airway is patent Respiratory effort is even, unlabored, Respiratory pattern is regular, symmetrical. GI: No signs and/or symptoms were reported involving the gastrointestinal system. : No signs and/or symptoms were reported regarding the genitourinary system. Derm: Skin is intact, is healthy with good turgor, Skin is pink, warm \T\ dry. Musculoskeletal: No signs and/or symptoms reported regarding the musculoskeletal system. Historical: - Allergies: 19:49 PENICILLINS; me1 - PMHx: 19:49 Atrial fibrillation; CHF; Gout; Hypertension; kidney disease; Myocardial infarction; me1 osteoarthritis; Pancreatitis; Rheumatoid Arthritis; stroke; TIA; - PSHx: 19:49 finger; Stented artery; heart stent; me1 - Immunization history:: Adult Immunizations up to date. - Infectious Disease History:: Denies. - Social history:: Smoking status: Patient denies any tobacco usage or history of. Screenin:51 [facility] ED Fall Risk Assessment (Adult) History of falling in the last 3 months, me1 including since admission No falls in past 3 months (0 pts) Confusion or Disorientation No (0 pts) Intoxicated or Sedated No (0 pts) Impaired Gait Yes (1 pt) Mobility Assist Device Used Yes (1 pt) Altered Elimination No (0 pt) Score/Fall Risk Level 0 - 2 = Low Risk Maintained a safe environment, Provided non-skid footwear, Hourly rounding (assess needs \T\ fall precautionary measures) done. Abuse screen: Denies threats or abuse. Nutritional screening: No deficits noted. Tuberculosis screening: No symptoms or risk factors identified. Assessment: 19:51 General: See triage assessment.. me1 22:52 Reassessment: No changes from previously documented assessment. Patient and/or family rg5 updated on plan of care and expected duration. Pain level reassessed. Patient is alert, oriented x 3, equal unlabored respirations, skin warm/dry/pink. 23:35 Reassessment: No changes from previously documented assessment. Patient and/or family rg5 updated on plan of care and expected duration. Pain level reassessed. Patient is alert, oriented x 3, equal unlabored respirations, skin warm/dry/pink. 08/30 00:15 Pain: Complains of pain in chest Pain currently is 7 out of 10 on a pain scale. Quality rg5 of pain is described as shooting, Pain began gradually. 01:20 Reassessment: Patient and/or family updated on plan of care and expected duration. Pain rg5 level reassessed. Patient is alert, oriented x 3, equal unlabored respirations, skin warm/dry/pink. 02:26 Reassessment: No changes from previously documented assessment. Patient and/or family rg5 updated on plan of care and expected duration. Pain level reassessed. Patient is alert, oriented x 3, equal unlabored respirations, skin warm/dry/pink. 02:28 Reassessment: Patient states feeling better. Patient states symptoms have improved. rg5 Vital Signs: 08/29 19:44 BP 131 / 108; Pulse 95; Resp 20; Pulse Ox 100% on R/A; me1 19:44 Weight 88.45 kg; Height 6 ft. 3 in. ; Pain 6/10; me1 20:00 BP 128 / 99; Pulse 95; Resp 16; Pulse Ox 96% ; me1 21:00 BP 132 / 109; Pulse 89; Resp 18; Pulse Ox 100% on R/A; me1 22:00 BP 137 / 107; Pulse 87; Resp 18; Pulse Ox 98% ; me1 23:28 BP 135 / 104; Pulse 86; Resp 17; Temp 98; Pulse Ox 100% on R/A; Pain 5/10; rg5 08/30 00:30 BP 114 / 112; Pulse 84; Resp 17; Pulse Ox 100% ; Pain 2/10; rg5 01:00 BP 139 / 98; Pulse 82; Resp 17; Pulse Ox 98% on R/A; rg5 01:37 BP 129 / 109; ec2 02:06 BP 136 / 108; Pulse 82; Resp 17; Pulse Ox 98% on R/A; Pain 0/10; rg5 08/29 19:44 Body Mass Index 24.37 (88.45 kg, 190.5 cm) me1 19:44 Pain Scale: Adult me1 23:28 Pain Scale: Adult rg5 08/30 00:30 Pain Scale: Adult rg5 02:06 Pain Scale: Adult rg5 ED Course: 08/29 19:34 Patient arrived in ED. [id number] 19:36 Susan Alcantara, RADHIKA is Primary Nurse. me1 19:39 Pelon Negrete MD is Attending Physician. ec2 19:48 Triage completed. me1 19:49 Arm band placed on Patient placed in an exam room. me1 19:51 Patient has correct armband on for positive identification. Bed in low position. Call me1 light in reach. Side rails up X2. Provided Education on: POC. Verbalized understanding.. Client placed on continuous cardiac and pulse oximetry monitoring. NIBP monitoring applied. hearing specialist on. Pulse ox on. NIBP on. 19:51 No provider procedures requiring assistance completed. Patient maintains SpO2 me1 saturation greater than 95% on room air. 20:53 CT Chest Wo Con In Process Unspecified. EDMS 21:00 XRAY Chest (1 view) In Process Unspecified. EDMS 21:17 Basic Metabolic Panel Sent. me1 21:17 CBC with Diff Sent. me1 21:17 Troponin HS Sent. me1 21:17 Initial lab(s) drawn, by wa, sent to lab. Inserted saline lock: 22 gauge in left wa1 antecubital area, using aseptic technique. 22:00 EKG done, by ED staff, reviewed by Pelon Negrete MD. wa1 01/12 02:32 CBC Smear Scan Sent. rg5 02:55 Patient transferred, IV remains in place. intact, No redness/swelling at site. rg5 Administered Medications: 08/29 21:22 Drug: fentaNYL (PF) IVP 25 mcg IVP once Route: IVP; Site: left antecubital; me1 22:00 Follow up: Response: No adverse reaction; Pain is decreased [facility] 08/30 00:05 Drug: fentaNYL (PF) IVP 25 mcg IVP once Route: IVP; Site: left antecubital; rg5 00:44 Follow up: Response: No adverse reaction; Pain is decreased rg5 00:30 Drug: Aspirin PO Chewable Tablet 324 mg PO once; 81 mg tablets x 4 Route: PO; rg5 00:44 Follow up: Response: No adverse reaction rg5 00:37 Drug: Heparin (CT Drip) 12 units/kg/[place] - ([place] [address] units, D5W IV 500 ml) IV at rg5 calculated rate Per protocol; Max initial rate 1000 units/hr {Co-Signature: br2 (Ethel Guadalupe RN).} Route: IV; Rate: calculated rate; Site: left antecubital; 02:53 Follow up: IV Status: Infusion continued upon transfer; IV Intake: 450ml rg5 01:45 Drug: Nitroglycerin Sublingual 0.4 mg Sublingual once; every five minute if needed x3 rg5 Route: Sublingual; 02:29 Follow up: Response: No adverse reaction rg5 02:53 Not Given (no chest painn): nitroglycerin5 mcg/min IV at calculated rate See rg5 Administration Instructions; Standard concentration 50mg/250mL; Recommended max rate 200 mcg/min; max rate for Angina 400mcg/min; Titrate 5 mcg/min q5min to achieve goal (see titration policy); Goal parameter SBP less than 160 bpm or resolution of chest pain; low-sorbing IV tubing. Medication: 08/29 19:51 VIS not applicable for this client. me1 Intake: 08/30 02:53 IV: 450ml; Total: 450ml. rg5 Outcome: 08/29 23:49 ER care complete, transfer ordered by . 2 08/30 02:54 Transferred by ground EMS to [facility] Condition: stable Instructed on the need for transfer, 02:56 Patient left the ED. rg5 Signatures: Dispatcher [employer] Geena Davis [email or web address] Susan Alcantara RN RN me1 Pelon Negrete MD MD ec2 Romeo Green RN RN rg5 Ethel Guadalupe RN br2 Corrections: (The following items were deleted from the chart) 08/29 19:48 19:36 Chief complaint: me1 me1 08/30 00:24 00:15 Pain: Complains of pain in chest Pain currently is 7 out of 10 on a pain scale. rg5 Quality of pain is described as shooting, rg5
--- NOTE | 2024-08-29 23:49 | EDPHYS ---
Physician Documentation [facility] Name: Natan Paulino Age: 64 yrs Sex: Male : 1960 Arrival Date: 08/29/2024 Time: 19:31 Bed 18 Private MD: ED Physician Pelon Negrete HPI: 08/29 19:46 This 64 yrs old Black Male presents to ER via Unassigned with complaints of Chest Pain. ec2 19:46 Patient arrives today for evaluation of left-sided chest pain. Patient reports that he ec2 recently had multiple procedures, states he is having a hematoma to the left chest which is causing him pain and some shortness of breath. Otherwise reports history of ESRD,Has not taken any meds for his pain. Historical: - Allergies: 19:49 PENICILLINS; me1 - PMHx: 19:49 Atrial fibrillation; CHF; Gout; Hypertension; kidney disease; Myocardial infarction; me1 osteoarthritis; Pancreatitis; Rheumatoid Arthritis; stroke; TIA; - PSHx: 19:49 finger; Stented artery; heart stent; me1 - Immunization history:: Adult Immunizations up to date. - Infectious Disease History:: Denies. - Social history:: Smoking status: Patient denies any tobacco usage or history of. ROS: 19:46 Constitutional: as per hpi ec2 Exam: 19:46 Constitutional: GEN: NAD Head: atraumatic Eyes: EOMI Ears: External ears are ec2 normal. CV: regular rate LUNGS: no respiratory distress ABD: non-distended SKIN: no evidence of rashes MSK: no evidence of trauma, reproducible left-sided chest wall TTP with hematoma noted. Vital Signs: 19:44 BP 131 / 108; Pulse 95; Resp 20; Pulse Ox 100% on R/A; me1 19:44 Weight 88.45 kg; Height 6 ft. 3 in. ; Pain 6/10; me1 20:00 BP 128 / 99; Pulse 95; Resp 16; Pulse Ox 96% ; me1 21:00 BP 132 / 109; Pulse 89; Resp 18; Pulse Ox 100% on R/A; me1 22:00 BP 137 / 107; Pulse 87; Resp 18; Pulse Ox 98% ; me1 23:28 BP 135 / 104; Pulse 86; Resp 17; Temp 98; Pulse Ox 100% on R/A; Pain 5/10; rg5 12 00:30 BP 114 / 112; Pulse 84; Resp 17; Pulse Ox 100% ; Pain 2/10; rg5 01:00 BP 139 / 98; Pulse 82; Resp 17; Pulse Ox 98% on R/A; rg5 01:37 BP 129 / 109; ec2 02:06 BP 136 / 108; Pulse 82; Resp 17; Pulse Ox 98% on R/A; Pain 0/10; rg5 08/29 19:44 Body Mass Index 24.37 (88.45 kg, 190.5 cm) me1 19:44 Pain Scale: Adult me1 23:28 Pain Scale: Adult rg5 08/30 00:30 Pain Scale: Adult rg5 02:06 Pain Scale: Adult rg5 MDM: 08/29 19:39 Medical Screening Exam initiated ec2 19:47 Data reviewed: nurses notes. Data reviewed: vital signs. ED course: Patient arrives ec2 today for evaluation of left-sided chest pain from her recent procedure. Examination here some significant as above. Will obtain lab work, CT scan of the chest and treat the patient's pain. Differential diagnosis include processes such as a hematoma to the chest wall, NSTEMI, MSK pain.. 21:41 ED course: EKG independently reviewed and interpreted by me, shows normal sinus rhythm, ec2 rate of 92, no acute ST segment elevations, left bundle branch block noted.. 22:36 ED course: Metabolic profile shows slight anion gap along with slight BUN elevation ec2 expected renal dysfunction, troponin elevation noted at 869. Patient with baseline troponin elevation. Last visit with a troponin of 910.Previous visits with troponin elevations at 715 and 761. Will obtain repeat troponin to evaluate for any changes. Ultimately I suspect this is all chronic troponin ovation. Patient with reproducible chest wall TTP which I suspect is causing the patient's pain. I have a lower suspicion for ACS however will obtain a repeat EKG and troponin to make sure there is no changes.. 23:27 ED course: EKG independently reviewed and interpreted by me, shows normal sinus rhythm, ec2 rate of 85, no acute ST segment elevations, intervals are nonactionable, left bundle branch block noted. When compared to initial EKG, appears similar.. 23:46 ED course: Patient with repeat troponin at 870. Given the change, will start the ec2 patient heparin drip and admit for NSTEMI, chest pain evaluation. Ultimately patient is a high risk individual with ESRD, known ACS and of benefit from continued management, additionally patient with continued chest pain.. 08/30 00:13 ED course: I will transfer patient for continuity of care given the patient's complex 2 history, recent LVAD, recent balloon pump, current LifeVest status.. 01:19 ED course: I discussed with hospitalist who wanted me to clear with cardiology at [address] 08/29 19:46 Order name: Basic Metabolic Panel; Complete Time: 22:33 [facility] 08/29 19:46 Order name: CBC with Diff [facility] 08/29 19:46 Order name: Troponin HS; Complete Time: 22:33 [facility] 08/29 22:55 Order name: Troponin High Sensitivity; Complete Time: 23:44 2 08/29 23:45 Order name: BNP; Complete Time: 00:41 [facility] 08/29 23:45 Order name: PT-INR; Complete Time: 00:41 [facility] 08/29 23:45 Order name: Ptt, Activated; Complete Time: 00:41 2 08/30 01:46 Order name: Manual Differential EDMS 08/30 01:47 Order name: CBC Smear Scan EDMS 08/29 19:46 Order name: XRAY Chest (1 view); Complete Time: 21:49 2 08/29 19:47 Order name: CT Chest Wo Con; Complete Time: 21:26 2 08/29 19:46 Order name: EKG; Complete Time: 19:46 2 08/29 19:46 Order name: Cardiac monitoring; Complete Time: 22:00 2 08/29 19:46 Order name: EKG - Nurse/Tech; Complete Time: 22:00 2 08/29 19:46 Order name: IV Saline Lock; Complete Time: 21:17 2 08/29 19:46 Order name: Labs collected and sent; Complete Time: 21:17 2 08/29 19:46 Order name: O2 Per Protocol; Complete Time: 21:04 2 08/29 19:46 Order name: O2 Sat Monitoring; Complete Time: 21:04 [facility] 08/29 22:37 Order name: Misc. Order: repeat ekg/trop at 2315; Complete Time: 23:28 ec2 08/29 22:55 Order name: EKG - Nurse/Tech; Complete Time: 23:28 ec2 Administered Medications: 08/29 21:22 Drug: fentaNYL (PF) IVP 25 mcg IVP once Route: IVP; Site: left antecubital; me1 22:00 Follow up: Response: No adverse reaction; Pain is decreased me1 08/30 00:05 Drug: fentaNYL (PF) IVP 25 mcg IVP once Route: IVP; Site: left antecubital; rg5 00:44 Follow up: Response: No adverse reaction; Pain is decreased rg5 00:30 Drug: Aspirin PO Chewable Tablet 324 mg PO once; 81 mg tablets x 4 Route: PO; rg5 00:44 Follow up: Response: No adverse reaction rg5 00:37 Drug: Heparin ([place] Drip) 12 units/kg/[place] - ([place] [address] units, D5W IV 500 ml) IV at rg5 calculated rate Per protocol; Max initial rate 1000 units/hr {Co-Signature: br2 (Ethel Guadalupe RN).} Route: IV; Rate: calculated rate; Site: left antecubital; 02:53 Follow up: IV Status: Infusion continued upon transfer; IV Intake: 450ml rg5 01:45 Drug: Nitroglycerin Sublingual 0.4 mg Sublingual once; every five minute if needed x3 rg5 Route: Sublingual; 02:29 Follow up: Response: No adverse reaction rg5 02:53 Not Given (no chest painn): nitroglycerin5 mcg/min IV at calculated rate See rg5 Administration Instructions; Standard concentration 50mg/250mL; Recommended max rate 200 mcg/min; max rate for Angina 400mcg/min; Titrate 5 mcg/min q5min to achieve goal (see titration policy); Goal parameter SBP less than 160 bpm or resolution of chest pain; low-sorbing IV tubing. Disposition: 08/29 23:48 Critical Care:. ec2 Disposition Summary: 08/29/24 23:49 Transfer Ordered Notes: Transfer Location: [facility] ec2 Reason: Higher level of care ec2 Condition: Stable ec2 Problem: an acute exacerbation ec2 Symptoms: are unchanged ec2 Accepting Physician: transferring doc(08/30/24 02:56) rg5 Diagnosis - NSTEMI ec2 - Lifevest ec2 Forms: - Medication Reconciliation Form ec2 - SBAR form ec2 Critical care time excluding procedures: 23:48 Critical care time: Bedside Care: 30 minutes, Consultation: 10 minutes. Total time: 40 ec2 minutes Signatures: Dispatcher [employer] EDSusan Nicholson RN RN me1 Pelon Negrete MD MD ec2 Romeo Green RN RN rg5 Ethel Guadalupe RN br2 Corrections: (The following items were deleted from the chart) 23:59 23:46 ED course: Patient with repeat troponin at 870. Given the change, with the ec2 patient heparin drip and admit for NSTEMI, chest pain evaluation. Ultimately patient is a high risk individual with ESRD, known ACS and of benefit from continued management.. ec2 08/30 02:56 08/29 23:49 transferring doc ec2 rg5
[2024-08-30] MEDS ORDERED: FENTANYL CITR 100 MCG/2 ML ONE
[2024-08-30] MEDS ORDERED: HEPARIN/D5W 25,000 UNIT/500 ML BAG IV ONE (00:01)
[2024-08-30 00:20] LABS: PT Prothrombin Time 16.9 SECONDS (9.4-12.5); PTT, Activated Partial Thromb 26.6 SECONDS (24.3-36.9); Protime INR 1.53
[2024-08-30] MEDS ORDERED: ASPIRIN 81 MG CHEWABLE TABLET ONE (00:36)
[2024-08-30 01:45] LABS: Anisocytosis 1+; Blood Morphology Comment NOTED (NOT SEEN); Differential Total Cells Count 100; Eosinophils 2 % (0-3); Lymphocytes 17 % (15-42); Monocytes 4 % (0-10); Nucleated Red Blood Cells 4 /100WBC; Platelet Estimate ADEQ; Segmented Neutrophils 77 % (40-80); White Blood Cell Scan DIFF (OK)
[2024-08-30 01:46] LABS: Polychromasia 1+
[2024-08-30] MEDS ORDERED: NITROGLYCERIN 0.4 MG/TAB SL ONE (01:47)
[2024-09-01 15:50] VITALS: BP 136/108; TEMP 98; O2SAT 98
--- NOTE | 2024-09-03 12:12 | EKG ---
Test Date: 2024-08-29 Test Time: 23:22:56 Hvac Lead: LESLIE MEASUREMENT RESULTS: Intervals: Rate: 85 MO: 240 QRSD: 138 QT: 424 QTc: 504 [place]: P: 79 MO: 240 QRS: -53 T: 78 INTERPRETIVE STATEMENTS: Sinus rhythm with 1st degree AV block with occasional premature ventricular complexes Left axis deviation Left bundle branch block Abnormal ECG Compared to ECG 08/29/2024 21:30:51 Fusion complex(es) no longer present Electronically Signed On 09-03-24 12:09:04 ROUGH ROUNDER MACHINE by Ted Rangel
--- NOTE | 2024-09-03 12:13 | EKG ---
Test Date: 2024-08-29 Test Time: 21:30:51 Splitting Machine Operator: AGNIESZKA MEASUREMENT RESULTS: Intervals: Rate: 92 MA: 220 QRSD: 140 QT: 400 QTc: 494 [place]: P: 83 MA: 220 QRS: -60 T: 84 INTERPRETIVE STATEMENTS: Sinus rhythm with 1st degree AV block with occasional premature ventricular complexes and fusion complexes Left axis deviation Left bundle branch block Abnormal ECG Compared to ECG 08/12/2024 21:23:01 Fusion complex(es) now present Ventricular premature complex(es) now present Sinus arrhythmia no longer present Electronically Signed On 09-03-24 12:09:06 BAND STRAIGHTENER by Ted Rangel
== END 2024-08-30 02:56 | disposition short-term general hospital (02) ==
LOC: ER 19:31
DX: I21.4 Non-ST elevation (NSTEMI) myocardial infarction (principal); I13.0 Hypertensive heart and chronic kidney disease with heart failure and stage 1 through stage 4 chronic kidney disease, or unspecified chronic kidney disease; I50.9 Heart failure, unspecified; N18.9 Chronic kidney disease, unspecified; I48.91 Unspecified atrial fibrillation; I25.2 Old myocardial infarction; M06.9 Rheumatoid arthritis, unspecified; M19.90 Unspecified osteoarthritis, unspecified site; Z86.73 Personal history of transient ischemic attack (TIA), and cerebral infarction without residual deficits; Z88.0 Allergy status to penicillin
CPT/HCPCS: 96365; 93005 ×2; 85025; 80048; 36415; 85610; 85730; 84484 ×2; 83880; 71250; 71045; 96375; 99285; 96366; J3010 ×2

== ENCOUNTER 2024-10-06 09:24 | Inpatient (IN) | payer OTHER ==
[2024-10-06] MEDS ORDERED: HYDROCODONE/APAP 10/325 TAB ONE (09:35)
[2024-10-06 10:43] LABS: Absolute Basophils 0.1 K/uL (0-0.5); Absolute Lymphocytes (CBC) 0.9 K/uL (0.7-4.9); Absolute Monocytes 0.7 K/uL (0.1-1.3); Basophils % 0.9 % (0-1.3); Eosinophils % 0.7 % (0-4.4); Hematocrit 34.5 % (39.6-49.0); Hemoglobin 11.2 g/dL (13.6-17.9); Lymphocytes % 13.6 % (15.3-44.8); MCH 30.7 pg (27.0-35.0); MCHC 32.4 g/dL (32.0-36.0); MCV 94.9 fL (80-100); MPV 8.1 fL (7.6-11.3); Monocytes % 10.8 % (3.3-12.3); Nucleated Red Blood Cells % 0.1 % (0-0); Platelets 160 thou/uL (152-406); RBC Red Blood Cell Count 3.64 M/uL (4.33-5.43); Red Cell Distribution Width 17.9 % (12.1-15.2)
--- NOTE | 2024-10-06 10:47 | RAD REPORT ---
Procedure: Chest Single View HISTORY: Dialysis catheter fell out COMPARISON: August 2024 FINDINGS: The lungs appear clear of acute infiltrate. No significant pleural effusion noted. Marked cardiomegaly. No pneumothorax. IMPRESSION: No acute abnormality is displayed.
[2024-10-06 10:55] LABS: Anion Gap 13.7 mEq/L (5.0-15.0); Potassium 4.7 mEq/L (3.5-5.1)
--- NOTE | 2024-10-06 10:55 | ER ---
Nurse's Notes [facility] Name: Natan Paulino Age: 64 yrs Sex: Male : 1960 Arrival Date: 10/06/2024 Time: 09:24 Bed 14 Private MD: Diagnosis: Other complication of vascular dialysis catheter-Complete displacement;End stage renal disease Presentation: 10/06 09:38 Chief complaint: EMS states: had sutures removed from his dialysis port on , iw this morning he was getting ready and the catheter became dislodged and was on the floor. 09:41 Coronavirus screen: At this time, the client does not indicate any symptoms associated iw with coronavirus-19. Ebola Screen: No symptoms or risks identified at this time. Initial Sepsis Screen: Does the patient meet any 2 criteria? No. Patient's initial sepsis screen is negative. Does the patient have a suspected source of infection? No. Patient's initial sepsis screen is negative. Risk Assessment: Do you want to hurt yourself or someone else?. Onset of symptoms was October 06, 2024. 09:41 Acuity: NINO 3 iw 09:41 Method Of Arrival: EMS: [facility] iw Historical: - Allergies: 09:40 PENICILLINS; iw - PMHx: 09:40 Atrial fibrillation; CHF; Gout; Hypertension; kidney disease; Myocardial infarction; iw osteoarthritis; Pancreatitis; Rheumatoid Arthritis; stroke; TIA; - PSHx: 09:40 finger; heart stent; iw - Immunization history:: Adult Immunizations up to date. - Infectious Disease History:: Denies. - Family history:: not pertinent. - Social history:: Smoking status: Patient denies any tobacco usage or history of. - Hospitalizations: : No recent hospitalization is reported. Screenin:51 [facility] ED Fall Risk Assessment (Adult) History of falling in the last 3 months, ld1 including since admission No falls in past 3 months (0 pts) Confusion or Disorientation No (0 pts) Intoxicated or Sedated No (0 pts) Impaired Gait No (0 pts) Mobility Assist Device Used No (0 pt) Altered Elimination No (0 pt) Score/Fall Risk Level 0 - 2 = Low Risk Oriented to surroundings, Hourly rounding (assess needs \T\ fall precautionary measures) done. Abuse screen: Denies threats or abuse. Denies injuries from another. Nutritional screening: No deficits noted. Tuberculosis screening: No symptoms or risk factors identified. Assessment: 09:51 General: Appears in no apparent distress. comfortable, Behavior is calm, cooperative, ld1 appropriate for age. Pain: Complains of pain in right clavicle and anterior aspect of right upper chest Pain does not radiate. Pain currently is 7 out of 10 on a pain scale. Quality of pain is described as throbbing, Pain began suddenly, Is continuous. Neuro: Level of Consciousness is awake, alert, obeys commands, Oriented to person, place, time, situation, Appropriate for age. Cardiovascular: Capillary refill < 3 seconds Patient's skin is warm and dry. Respiratory: Airway is patent Respiratory effort is even, unlabored. GI: Abdomen is flat, non-distended. : No signs and/or symptoms were reported regarding the genitourinary system. EENT: No signs and/or symptoms were reported regarding the EENT system. Derm: No signs and/or symptoms reported regarding the dermatologic system. Musculoskeletal: No signs and/or symptoms reported regarding the musculoskeletal system. 12:05 Reassessment: Patient appears in no apparent distress at this time. Patient and/or kj2 family updated on plan of care and expected duration. Pain level reassessed. Patient is alert, oriented x 3, equal unlabored respirations, skin warm/dry/pink. Vital Signs: 09:41 BP 137 / 74; Pulse 74; Resp 16; Temp 98.1; Pulse Ox 100% on R/A; Weight 89.81 kg; iw Height 6 ft. 3 in. ; Pain 8/10; 09:41 Body Mass Index 24.75 (89.81 kg, 190.5 cm) iw 09:41 Pain Scale: Adult iw ED Course: 09:26 Patient arrived in ED. ld1 09:27 Eddy Jha MD is Attending Physician. rn 09:37 Kelsy Nichols, RADHIKA is Primary Nurse. ld1 09:41 Triage completed. iw 09:51 Protime (+inr) Sent. ld1 09:51 Ptt, Activated Sent. ld1 09:51 Basic Metabolic Panel Sent. ld1 09:51 CBC with Diff Sent. ld1 09:51 No provider procedures requiring assistance completed. Inserted saline lock: 22 gauge ld1 in right hand, using aseptic technique. Blood collected. Flushed with 10 mL NS. 09:51 Patient has correct armband on for positive identification. Placed in gown. Bed in low ld1 position. Call light in reach. Side rails up X2. quality assurance monitor body on. Pulse ox on. NIBP on. Door closed. Noise minimized. Warm blanket given. 10:15 XRAY Chest (1 view) In Process Unspecified. EDMS 10:54 Abram Cerrato MD is Hospitalizing Provider. rn 12:05 Report received from RADHIKA Tierney. kj2 Administered Medications: 09:51 Drug: [place] PO 10 mg-325 mg 1 tabs PO once Route: PO; ld1 10:37 Follow up: Response: No adverse reaction ld1 Medication: :51 VIS not applicable for this client. ld1 Outcome: 10:54 Decision to Hospitalize by Provider. rn 18:15 Patient left the ED. iw Signatures: Dispatcher [employer] EDMS Martha Orr RN RN iw Eddy Jha MD MD rn Sims, Lauren, RN RN ld1 Nadya Saucedo RN RN kj2
--- NOTE | 2024-10-06 10:55 | EDPHYS ---
Physician Documentation [facility] Name: Natan Paulino Age: 64 yrs Sex: Male : 1960 Arrival Date: 10/06/2024 Time: 09:24 Bed 14 Private MD: ED Physician Eddy Jha HPI: 10/06 09:38 This 64 yrs old Black Male presents to ER via Unassigned with complaints of patternator catheter fell out. 09:38 Pt reports changing for dialysis and dialysis catheter fell out. Bled "like a pig", rn then stopped. Denies sob or dizziness. Reports pain only at puncture site. . Onset: The symptoms/episode began/occurred just prior to arrival. Severity of symptoms: At their worst the symptoms were mild in the emergency department the symptoms have improved. The patient has not experienced similar symptoms in the past. The patient has been recently seen by a physician:. Reports catheter sutures removed in last few weeks, catheter about 3 months old. . Historical: - Allergies: 09:40 PENICILLINS; iw - PMHx: 09:40 Atrial fibrillation; CHF; Gout; Hypertension; kidney disease; Myocardial infarction; iw osteoarthritis; Pancreatitis; Rheumatoid Arthritis; stroke; TIA; - PSHx: 09:40 finger; heart stent; iw - Immunization history:: Adult Immunizations up to date. - Infectious Disease History:: Denies. - Family history:: not pertinent. - Social history:: Smoking status: Patient denies any tobacco usage or history of. - Hospitalizations: : No recent hospitalization is reported. ROS: 09:38 Constitutional: Negative for fever, chills, and weight loss, Cardiovascular: Negative rn for chest pain, palpitations, and edema, Respiratory: Negative for shortness of breath, cough, wheezing, and pleuritic chest pain, Abdomen/GI: Negative for abdominal pain, nausea, vomiting, diarrhea, and constipation, Back: Negative for injury and pain, MS/Extremity: Negative for injury and deformity, Skin: Negative for injury, rash, and discoloration, Neuro: Negative for headache, weakness, numbness, tingling, and seizure, Exam: 09:38 Constitutional: This is a well developed, well nourished patient who is awake, alert, rn and in no acute distress. Head/Face: Normocephalic, atraumatic. Chest/axilla: Right upper chest open wound from displaced catheter, no active bleeding, dressing applied. Cardiovascular: Regular rate. No pulse deficits. Respiratory: No increased work of breathing, no retractions or nasal flaring. Abdomen/GI: Soft, non-tender Vital Signs: 09:41 BP 137 / 74; Pulse 74; Resp 16; Temp 98.1; Pulse Ox 100% on R/A; Weight 89.81 kg; iw Height 6 ft. 3 in. ; Pain 8/10; 09:41 Body Mass Index 24.75 (89.81 kg, 190.5 cm) iw 09:41 Pain Scale: Adult iw MDM: 09:27 Medical Screening Exam initiated rn 10:53 Differential Diagnosis Dialysis catheter dislodgment and displacement. Data reviewed: rn vital signs, nurses notes, radiologic studies, plain films, and as a result, I will admit patient. Independent interpretation of the following test(s) in the Emergency Department X-Ray: My interpretation is Chest x-ray images negative for pneumothorax per my interpretation. Care significantly affected by the following chronic conditions: Chronic Kidney Disease. Counseling: I had a detailed discussion with the patient and/or guardian regarding the historical points, exam findings, and any diagnostic results supporting the discharge/admit diagnosis, radiology results, the need for further work-up and treatment in the hospital. 10:53 ED course: Chest x-ray negative for pneumothorax. Hemodynamically stable. No active rn bleeding. Will admit for new dialysis catheter and likely dialysis.. 10/06 09:28 Order name: CBC with Diff rn 10/06 09:28 Order name: Basic Metabolic Panel; Complete Time: 11:49 rn 10/06 09:28 Order name: Protime (+inr); Complete Time: 11:49 rn 10/06 09:28 Order name: Ptt, Activated; Complete Time: 11:49 rn 18 12:24 Order name: Magnesium EDMS 10/06 12:24 Order name: Phosphorus EDMS 10/06 12:24 Order name: Protime (+INR) EDMS 10/06 12:24 Order name: Urinalysis w/ reflexes EDMS 10/06 12:24 Order name: Basic Metabolic Panel EDMS 10/06 12:24 Order name: Basic Metabolic Panel EDMS 10/06 12:24 Order name: CBC with Automated Diff EDMS 10/06 12:24 Order name: CBC with Automated Diff EDMS 10/06 12:24 Order name: NT PRO-BNP EDMS 10/06 12:24 Order name: NT PRO-BNP EDMS 10/06 12:51 Order name: CBC Smear Scan EDMS 10/06 09:28 Order name: XRAY Chest (1 view); Complete Time: 10:49 rn 10/06 12:24 Order name: CONS Physician Consult EDMS 10/06 12:24 Order name: CONS Physician Consult EDNM 10/06 09:28 Order name: IV Start; Complete Time: 09:51 rn 10/06 10:11 Order name: Labs - recollect needed: recollect all tubes; Complete Time: 10:37 bd Administered Medications: 09:51 Drug: [place] PO 10 mg-325 mg 1 tabs PO once Route: PO; ld1 10:37 Follow up: Response: No adverse reaction ld1 Disposition Summary: 10/06/24 10:54 Hospitalization Ordered Notes: Hospitalization Status: Inpatient Admission rn Provider: Abram Cerrato rn Location: Telemetry/MedSurg (Inpatient) rn Condition: Stable rn Problem: new rn Symptoms: have improved rn Bed/Room Type: Standard rn Room Assignment: 229(10/06/24 15:17) bd Diagnosis - Other complication of vascular dialysis catheter - Complete displacement rn - End stage renal disease rn Forms: - Medication Reconciliation Form rn - SBAR form rn - Leadership Thank You Letter rn Signatures: Dispatcher [employer] EDMS Leola Zapien Irene, RN RN iw Nieto, Roman, MD MD rn Sims, Lauren, RN RN ld1 Corrections: (The following items were deleted from the chart) 09: 09:28 CBC+H.LAB.BRZ ordered. EDMS EDMS 09:28 09:28 BASIC METABOLIC PANEL+C.LAB.BRZ ordered. EDMS EDMS 09: 09:28 PROTIME (+INR)+COAG.LAB.BRZ ordered. EDMS EDMS 09: 09:28 PTT, ACTIVATED+COAG.LAB.BRZ ordered. EDMS EDMS 15:17 10:54 rn bd
[2024-10-06 11:32] LABS: PT Prothrombin Time 11.7 SECONDS (9.4-12.5); PTT, Activated Partial Thromb 26.3 SECONDS (24.3-36.9); Protime INR 1.12
[2024-10-06] MEDS ORDERED: ACETAMINOPHEN 325 MG TABLET PO PRN (12:15)
[2024-10-06] MEDS ORDERED: ONDANSETRON 4 MG/2 ML VIAL IV PRN (12:15)
[2024-10-06] MEDS ORDERED: DOCUSATE NA/SENNA CONC 1 TAB PO PRN (12:28)
[2024-10-06] MEDS ORDERED: HYDRALAZINE HCL 20 MG/ML VIAL IV PRN (12:28)
[2024-10-06] MEDS ORDERED: METHYL SALICYLATE/MENTHOL 3 OZ TUBE TOP PRN (12:28)
[2024-10-06] MEDS ORDERED: BISACODYL 10 MG RECTAL SUPP PR PRN (12:28)
[2024-10-06] MEDS ORDERED: SIMETHICONE 80 MG CHEWABLE TAB PO PRN (12:28)
[2024-10-06] MEDS ORDERED: methocarbamoL 500 MG TAB PO PRN (12:28)
[2024-10-06] MEDS ORDERED: MIDODRINE HCL 5 MG TABLET PO PRN (12:28)
--- NOTE | 2024-10-06 12:44 | P.HP ---
Certification for Inpatient Patient admitted to: Observation With expected LOS: <2 Midnights Patient will require the following post-hospital care: None Practitioner: I am a practitioner with admitting privileges, knowledge of patient current condition, hospital course, and medical plan of care. Services: Services provided to patient in accordance with Admission requirements found in Title 42 Section 412.3 of the Code of Federal Regulations Patient History Date of Service: 10/06/24 Reason for admission: Vascular access problem. History of Present Illness: Patient is a 64-year-old male with a past medical history significant ESRD, CHF, gout, hypertension, DC, osteoarthritis, rheumatoid arthritis, CVA, CAD who presents with complaint of vascular access problem. Patient reported that he woke up this morning and his dialysis catheter fell out. Patient reported he followed up with his nephrology last week and some sutures were removed from the dialysis catheter at site. Patient reported that he was able to control the bleeding by putting pressure in affected site. Patient currently reports pain in the dialysis access site. Patient rated pain as 8/10 in severity and described pain as aching in quality. Patient reports bilateral lower extremity swelling that has been ongoing for the past 1 week. Patient denies any other signs and symptoms. Symptoms are aggravated or relieved by nothing. Patient decided to present to the hospital for medical evaluation. Allergies Penicillins Allergy (Verified 10/27/22 21:16) Hives/Rash Home Medications: Acetaminophen [Tylenol Extra Strength] 500 mg PO Q4H PRN 07/27/24 Amiodarone HCl [Cordarone*] 200 mg PO DAILY 07/27/24 Aspirin Chewable [Aspirin Chewable*] 81 mg PO DAILY 07/27/24 Atorvastatin Calcium [Lipitor] 40 mg PO BEDTIME 07/27/24 Bumetanide [Bumex] 2 g PO BID 07/27/24 Folic Acid 1 mg PO DAILY 07/27/24 Melatonin [Melatonin*] 6 mg PO BEDTIME 07/27/24 Metoprolol Succinate [Toprol Xl*] 1 tab PO BID 07/27/24 Midodrine HCl 10 mg PO DAILY PRN 07/27/24 Pantoprazole [Protonix Tab*] 40 mg PO BID 07/27/24 Sacubitril/Valsartan [Entresto 97 mg-103 mg Tablet] 1 tab PO BID 07/27/24 Vitamin D [Drisdol*] 50,000 unit PO Q7D 07/27/24 predniSONE [Prednisone*] 20 mg PO DAILY #30 tab 08/01/24 - Past Medical/Surgical History Diabetic: No -: HTN -: 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 Rossi/ Dr. Cabral) -: CAD -: Mural thrombus-left ventricle-resolved, on Eliquis -: CVA/ TIA -: Hep C--rec'd treatment 08/2023 -: Cardiac stent placement July 2019 -: removal of L hand 5th digit -: Cardiac catheterization 08/2023 Psychosocial/ Personal History: Patient currently lives at home with his and is on disability due to heart condition. - Family History Father -: Cancer, Liver disease Mother -: GI disease, Other (see notes) Notes: NA - Social History Smoking Status: Never smoker Alcohol use: Yes CD- Drugs: Yes Caffeine use: Yes Place of Residence: Home Review of Systems General: Unremarkable Eyes: Unremarkable ENT: Unremarkable Respiratory: Unremarkable Cardiovascular: Edema Gastrointestinal: Unremarkable Musculoskeletal: Pedal edema, Other (BLE edema) Integumentary: Unremarkable Neurological: Unremarkable Lymphatics: Unremarkable Physical Examination - Physical Exam General: Alert, In no apparent distress, Oriented x3, Cooperative HEENT: Atraumatic, PERRLA, Mucous membr. moist/pink, EOMI, Sclerae nonicteric Neck: Supple, 2+ carotid pulse no bruit, No LAD, Without JVD or thyroid abnormality Respiratory: Clear to auscultation bilaterally, Normal air movement Cardiovascular: Regular rate/rhythm, Normal S1 S2, Edema Capillary refill: <2 Seconds Gastrointestinal: Normal bowel sounds, Soft and benign, Non-distended, No tenderness Musculoskeletal: No clubbing, No tenderness Integumentary: No rashes Neurological: Normal gait, Normal speech, Normal strength at 5/5 x4 extr, Normal tone, Normal affect Lymphatics: No axilla or inguinal lymphadenopathy - Studies Laboratory Data (last 24 hrs) 10/06/24 10/06/24 10/06/24 10:34 10:34 10:34 WBC 6.80 Hgb 11.2 L Hct 34.5 L Plt Count 160 PT 11.7 INR 1.12 APTT 26.3 Sodium 139 Potassium 4.7 BUN 72 H Creatinine 6.76 H Glucose 105 Assessment and Plan - Plan Vascular access problem. --Surgeon consulted for dialysis catheter placement --Plans surgery in AM. --Will keep patient NPO. ESRD --Nephrology consulted. Recommendations appreciated. Acute on chronic systolic CHF exacerbation. --Dialysis schedule per net making supervisor. --Daily weight and strict I/O. --Continue home medications. Anemia of chronic disease. --H&H stable. --Transfuse if hemoglobin less than 7.0. History of [place]\CVA\CAD --Continue aspirin and statin Osteoarthritis\rheumatoid arthritis --Continue current pain medication regimen. Gout\GERD\Insomnia\HLD --Continue home medications Paroxysmal atrial fibrillation. --Continue amiodarone and metoprolol. DVT prophylaxis with Scds Discharge Plan: Home Plan to discharge in: 48 Hours - Advance Directives Does patient have a Living Will: No Does patient have a Durable POA for Healthcare: No - Code Status/Comfort Care Code Status Assessed: Yes Code Status: Full Code Physician Review: Patient Assessed, Agree with Above Assessment and Plan Critical Care: No
[2024-10-06 12:51] LABS: Blood Morphology Comment NOT SEEN (NOT SEEN); Platelet Estimate ADEQ; Platelets Clumped FEW; White Blood Cell Scan OK (OK)
[2024-10-06 13:48] LABS: PT Prothrombin Time 12.2 SECONDS (9.4-12.5); Protime INR 1.16
[2024-10-06 13:56] LABS: Magnesium 2.4 mg/dL (1.6-2.4); Phosphorus 5.1 mg/dL (2.5-4.9)
[2024-10-06] MEDS ORDERED: HYDROMORPHONE HCL 1 MG/ML INJ ONE (15:12)
[2024-10-06] MEDS: HYDROMORPHONE HCL 1 MG/ML INJ IV PRN (15:40)
[2024-10-06 16:49] VITALS: BMI 24.7
[2024-10-06] MEDS: BUMETANIDE 1 MG TABLET PO SCH (20:14)
[2024-10-06] MEDS: MELATONIN 3 MG TABLET PO SCH (20:19)
[2024-10-06] MEDS: ATORVASTATIN 40 MG TAB PO SCH (20:19)
[2024-10-06] MEDS: HEPARIN 5000 UNIT/ML 1 ML VIAL SQ SCH (20:19)
[2024-10-06] MEDS: PANTOPRAZOLE 40MG TABLET PO SCH (20:19)
[2024-10-06] MEDS: METOPROLOL XL 25 MG TAB PO SCH (20:19)
[2024-10-06] MEDS: HOME MED 1 EA UNK (Sacubitril/Valsartan [Entresto 97 Mg-103 Mg Tablet] Tablet) PO SCH (21:00)
[2024-10-06 22:59] LABS: Specific Gravity 1.014 (1.005-1.030); Sqamous Epithelial <5 /HPF (None Seen); Transitional Epithelial <5 /HPF (None Seen); Urine Bacteria <20 /HPF (<20); Urine Bilirubin NEGATIVE (Negative); Urine Blood Negative (Negative); Urine Clarity Clear (Clear); Urine Color Light-Yellow (Yellow); Urine Culture Reflex Order REFLEXED; Urine Glucose NEGATIVE (Negative); Urine Ketones NEGATIVE (Negative); Urine Microscopic Reflex YN ORDER UMIC; Urine Mucus Slight /HPF (None Seen); Urine Nitrite NEGATIVE (Negative); Urine Protein 2+ (Negative); Urine RBC <5 /HPF (None Seen); Urine Urobilinogen Normal (Normal)
[2024-10-07 04:51] LABS: Absolute Lymphocytes (CBC) 0.9 K/uL (0.7-4.9); Absolute Monocytes 0.8 K/uL (0.1-1.3); Absolute Neutrophil 4.1 K/uL (1.8-8.0); Basophils % 0.5 % (0-1.3); Eosinophils % 0.8 % (0-4.4); Hemoglobin 10.9 g/dL (13.6-17.9); Lymphocytes % 15.7 % (15.3-44.8); MCH 31.3 pg (27.0-35.0); MCV 94.8 fL (80-100); MPV 8.3 fL (7.6-11.3); Monocytes % 13.4 % (3.3-12.3); Neutrophils % 69.6 % (41.7-73.7); Nucleated Red Blood Cells % 0.1 % (0-0); Platelets 160 thou/uL (152-406); RBC Red Blood Cell Count 3.48 M/uL (4.33-5.43); Red Cell Distribution Width 18.1 % (12.1-15.2)
[2024-10-07 05:11] LABS: Anion Gap 13.2 mEq/L (5.0-15.0); Magnesium 2.6 mg/dL (1.6-2.4); Phosphorus 6.1 mg/dL (2.5-4.9); Potassium 5.2 mEq/L (3.5-5.1)
[2024-10-07] MEDS: LIDOCAINE 4% PATCH TOP SCH (09:00)
[2024-10-07] MEDS: AMIODARONE HCL 200 MG TAB PO SCH (09:00)
[2024-10-07] MEDS: predniSONE 20 MG TAB PO SCH (09:00)
[2024-10-07] MEDS: ASPIRIN 81 MG CHEWABLE TABLET PO SCH (09:00)
[2024-10-07] MEDS: FOLIC ACID 1 MG TABLET PO SCH (09:00)
[2024-10-07] MEDS ORDERED: NA CHLORIDE 0.9% 1,000 ML IV PRN (09:21)
[2024-10-07] MEDS ORDERED: MANNITOL 25% 12.5 GM/50 ML VIAL IV PRN (09:21)
[2024-10-07] MEDS ORDERED: EPOETIN ALFA 10,000 UNIT/ML VIAL IV SCH (09:30)
[2024-10-07] MEDS ORDERED: ALBUMIN HUMAN 25% 50 ML IV SCH (10:00)
[2024-10-07] MEDS: NA CHLORIDE 0.9% 500 ML ONE (11:57)
[2024-10-07] MEDS ORDERED: BUPIVACAINE 0.25% PF 30 ML VIAL ONE (12:53)
[2024-10-07] MEDS ORDERED: ONDANSETRON 4 MG/2 ML VIAL ONE (13:03)
[2024-10-07] MEDS ORDERED: LIDOCAINE 2% MPF 5 ML VIAL ONE (13:03)
[2024-10-07] MEDS ORDERED: propofoL 200 MG/20 ML VIAL IV ONE (13:03)
[2024-10-07] MEDS ORDERED: FENTANYL CITR 100 MCG/2 ML ONE (13:03)
[2024-10-07] MEDS ORDERED: EPHEDRINE SULF 50 MG/ML VIAL ONE (13:51)
[2024-10-07] MEDS: LIDOCAINE HCL/EPINEPHRINE 20 ML MDV ONE (13:53)
[2024-10-07] MEDS: NA CHLORIDE 0.9% 50 ML ONE (14:00)
[2024-10-07] MEDS: HEPARIN 5000 UNIT/ML 1 ML VIAL ONE (14:10)
--- NOTE | 2024-10-07 14:12 | P.OP ---
Preoperative diagnosis: Need for Dialysis Postoperative diagnosis: Need for Dialysis Primary procedure: Placement of RIGHT IJ Tunneled Hemodialysis Catheter Secondary procedure: Ultrasound and Flouroscopy utilized Anesthesia: GETA + Local Estimated blood loss: <10cc Specimen: None Findings: Dark, non-pulsatile blood Complications: None Implants: 24cm hemosplit HD catheter Transferred to: Recovery Room Condition: Good
--- NOTE | 2024-10-07 14:40 | RAD REPORT ---
EXAMINATION: ONE VIEW CHEST XR CLINICAL INDICATION: Catheter placement TECHNIQUE: Frontal chest projection is submitted. Examination is limited by patient positioning and t echnique. COMPARISON: 10/06/2024 FINDINGS: Mild pulmonary edema/vascular congestion. The heart is moderately enlarged in size. No displaced frac tures identified. Right-sided venous catheters tip in SVC. No pneumothorax. IMPRESSION: No postprocedure pneumothorax.
--- NOTE | 2024-10-07 14:46 | RAD REPORT ---
EXAM: Fluoroscopy use, Fluoroscopy <1 Hour HISTORY: HD CATH COMPARISON: None FINDINGS: Multiple images were sent to PACS, during a fluoroscopically guided procedure. No radiologi st was involved in protocoling or performance of the study, and no radiologist was present for the duration of the procedure. No interpretation of the saved images will be provided. Total fluoroscopy time: 0.3. IMPRESSION: Documentation of fluoroscopy use as above. Transcribed Date/Time: 10/07/2024 2:45 PM
[2024-10-07] MEDS: SODIUM ZIRCONIUM CYCLOSILICATE 10 GM/PKT PO SCH (16:25)
--- NOTE | 2024-10-07 17:51 | P.PN ---
Date of Service: 10/07/24 Subjective Awake, awaiting surgical placement of dialysis catheter no complaints Dialysis planned for today, likely discharge in the AM ROS 10 point ROS as noted above, otherwise negative Physical Exam General: Alert and Oriented x3, Cooperative HEENT: Atraumatic, PERRLA, Mucous membr. moist/pink, EOMI, Sclerae nonicteric Neck: Supple, 2+ carotid pulse no bruit, No LAD, Without JVD or thyroid abnormality Respiratory: Clear to auscultation bilaterally, Normal air movement Cardiovascular: RRR, Normal S1 S2 present Capillary refill: <2 Seconds Gastrointestinal: Normal bowel sounds, Soft on palpation, Musculoskeletal: No clubbing, No tenderness Integumentary: No rashes Neurological: Normal speech, Normal strength at 5/5 x4 extr Vitals Reviewed Problem list Vascular access problem ESRD Acute on chronic systolic CHF exacerbation Anemia of chronic disease History of [place]\CVA\CAD Paroxysmal atrial fibrillation Osteoarthritis\rheumatoid arthritis Gout\GERD\Insomnia\HLD Assessment and Plan Vascular access problem ESRD -Dr. Green consulted for dialysis catheter placement -Dr. Rossi scheduled dialysis for 10/07 -Scheduled dialysis [facility] Acute on chronic systolic CHF exacerbation Paroxysmal atrial fibrillation History of [place]\CVA\CAD -Dialysis schedule per crawler crane operator. -Daily weight and strict I/O -Continue home medications -Continuous telemetry Anemia of chronic disease -H&H stable -Transfuse if hemoglobin less than 7.0 Osteoarthritis\rheumatoid arthritis Gout\GERD\Insomnia\HLD --Continue current pain medication regimen DVT prophylaxis with Scds Discharge Plan: Home Plan to discharge in: 48 Hours
[2024-10-07] MEDS: EPOETIN ALFA 10,000 UNIT/ML VIAL IV SCH (19:30)
--- NOTE | 2024-10-07 20:09 | OP ---
Date of Procedure: 10/07/2024 Surgeon: Ana Green MD, Preoperative Diagnosis: Need for dialysis. Postoperative Diagnosis: Need for dialysis. Procedure Performed: Placement of right internal jugular tunneled hemodialysis catheter using ultras ound fluoroscopic guidance utilized. Anesthesia: General endotracheal plus local with 1% lidocaine. Estimated Blood Loss: Less than 10 cc. Specimen: None. Findings: Dark, nonpulsatile blood returned. Complications: None. Implants: 24 cm HemoSplit catheter used. Disposition: The patient was transferred to recovery room in good condition. Procedure In Detail: After informed consent was obtained, the patient was brought to the operating r oom, prepped and draped in the usual sterile fashion. After adequate anesthesia was achieved, the pa tient was placed in steep Trendelenburg position. At this time, using ultrasound guidance, I cannula ana the right internal jugular vein on the first attempt without incident or complication, at this po int. The right micro wire was advanced into the right atrium, at this point, and fluoroscopic guidan ce confirmed the position of the wire, at this point. I then made a small ric incision overlying th e insertion site and I placed the introducer sheath, at this point, removing the micro wire, at this point. At this point, I advanced the standard wire using Seldinger technique through the previous mi [employer] dynamics ax consultant introducer sheath. Fluoroscopic guidance confirmed the position, once again, to the wire in appr opriate anatomic position. Dark, red, nonpulsatile blood was the only type of blood returned through out the entire procedure. At this point, I anesthetized the tract on the chest wall using a tunnelin g device and I made a separate stab incision in the chest wall and using a tunneling device brought i n the 24 cm catheter out through the insertion site. At this point, I oriented the catheter appropri ately and sized it appropriately. I then proceeded to perform sequential dilatation using Seldinger technique, at this point, over the wire and then ultimately introducing the introducer sheath, I ortega james the wire at this point for the final time. Wire out was called for the second time. I then intr oduced the catheter into the confluence of the SVC without incident or complication and removed the i ntroducer sheath, at this point. Dark, red, nonpulsatile blood returned quite easily from both ports and it was flushed until completely clear. I then packed them with 2 cc of heparin per port and a s terile dressing placed over top. I secured the catheter with a 3-0 nylon suture as well as at the in sertion site with interrupted 3-0 nylon suture, and a sterile dressing placed over top. The patient tolerated the procedure without incident or complication and transferred to PACU in good condition. All counts were correct at the end of the case. GURINDER/TERRELL Voice ID: [id number] Report ID: [id number]
--- NOTE | 2024-10-07 21:19 | P.CNS ---
Date of Consult: 10/07/24 Reason for Consult: ESRD Requesting Physician: Abram Cerrato Chief Complaint: Vascular access problem. History of Present Illness: Patient is a 64-year-old male with a past medical history significant ESRD, CHF, gout, hypertension, LA, osteoarthritis, rheumatoid arthritis, CVA, CAD who presents with complaint of vascular access problem. Patient reported that he woke up this morning and his dialysis catheter fell out. Patient reported he followed up with his nephrology last week and some sutures were removed from the dialysis catheter at site. Patient reported that he was able to control the bleeding by putting pressure in affected site. Patient currently reports pain in the dialysis access site. Patient rated pain as 8/10 in severity and described pain as aching in quality. Patient reports bilateral lower extremity swelling that has been ongoing for the past 1 week. Patient denies any other signs and symptoms. Symptoms are aggravated or relieved by nothing. Patient decided to present to the hospital for medical evaluation. 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 09:38 Pt reports changing for dialysis and dialysis catheter fell out. Bled "like a pig", rn then stopped. Denies sob or dizziness. Reports pain only at puncture site. . Onset: The symptoms/episode began/occurred just prior to arrival. Severity of symptoms: At their worst the symptoms were mild in the emergency department the symptoms have improved. The patient has not experienced similar symptoms in the past. The patient has been recently seen by a physician:. Reports catheter sutures removed in last few weeks, catheter about 3 months old. Allergies Penicillins Allergy (Verified 10/27/22 21:16) Hives/Rash Home medications list reviewed: Yes Home Medications: Acetaminophen [Tylenol Extra Strength] 500 mg PO Q4H PRN 07/27/24 Amiodarone HCl [Cordarone*] 200 mg PO DAILY 07/27/24 Aspirin Chewable [Aspirin Chewable*] 81 mg PO DAILY 07/27/24 Atorvastatin Calcium [Lipitor] 40 mg PO BEDTIME 07/27/24 Bumetanide [Bumex] 2 g PO BID 07/27/24 Folic Acid 1 mg PO DAILY 07/27/24 Melatonin [Melatonin*] 6 mg PO BEDTIME 07/27/24 Metoprolol Succinate [Toprol Xl*] 1 tab PO BID 07/27/24 Midodrine HCl 10 mg PO DAILY PRN 07/27/24 Pantoprazole [Protonix Tab*] 40 mg PO BID 07/27/24 Sacubitril/Valsartan [Entresto 97 mg-103 mg Tablet] 1 tab PO BID 07/27/24 Vitamin D [Drisdol*] 50,000 unit PO Q7D 07/27/24 predniSONE [Prednisone*] 20 mg PO DAILY #30 tab 08/01/24 - Past Medical/Surgical History Diabetic: No -: HTN -: Systolic congestive 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 Rossi/ Dr. Cabral) -: CAD -: Mural thrombus-left ventricle-resolved, on Eliquis -: CVA/ TIA -: Hep C--rec'd treatment 08/2023 -: Cardiac stent placement July 2019 -: removal of L hand 5th digit -: Cardiac catheterization 08/2023 Psychosocial/ Personal History: Patient currently lives at home with his and is on disability due to heart condition. - Family History Father Medical History: Cancer, Liver disease Mother Medical History: GI disease, Other (see notes) Notes: NA - Social History Smoking Status: Unknown if ever smoked Alcohol use: Yes CD- Drugs: Yes Caffeine use: Yes Place of Residence: Home Review of Systems 10-point ROS is otherwise unremarkable General: Weakness Respiratory: SOB with Excertion Cardiovascular: Edema Physical Examination Temp Pulse Resp BP Pulse Ox 97.4 F 75 17 104/76 99 10/07/24 16:00 10/07/24 20:36 10/07/24 16:25 10/07/24 20:37 10/07/24 16:00 General: In no apparent distress, Cooperative HEENT: Atraumatic Neck: Supple Respiratory: Diminished Cardiovascular: Regular rate/rhythm Gastrointestinal: Soft and benign, Non-distended Musculoskeletal: No clubbing, No contractures Integumentary: No rashes, No cyanosis Neurological: Normal speech Blood work reviewed in the chart. Imagings Data: [id number] EXAMINATION: ONE VIEW CHEST XR CLINICAL INDICATION: Catheter placement TECHNIQUE: Frontal chest projection is submitted. Examination is limited by patient positioning and technique. COMPARISON: 10/06/2024 FINDINGS: Mild pulmonary edema/vascular congestion. The heart is moderately enlarged in size. No displaced fractures identified. Right-sided venous catheters tip in SVC. No pneumothorax. IMPRESSION: No postprocedure pneumothorax. [id number] Procedure: Chest Single View HISTORY: Dialysis catheter fell out COMPARISON: August 2024 FINDINGS: The lungs appear clear of acute infiltrate. No significant pleural effusion noted. Marked cardiomegaly. No pneumothorax. IMPRESSION: No acute abnormality is displayed. Conclusions/Impression: ESRD on HD -Acute HD today after access placement Vascular Access Absent -Surgery to place HD CVC today Hyperkalemia -Lokelma as ordered -HD ordered today HTN with CKD/ CHF -Continue Metoprolol Systolic CHF, A/C -UF with HD -Continue Bumex Anemia in CKD -Retacrit qHD CKD MBD Secondary HyperParathyroidism -Start Ergo -Start Mahnaz Hospitalist and ER notes reviewed Case reviewed with hospitalist team Thank you kindly for the consultation
[2024-10-08 08:57] VITALS: BP 111/75; TEMP 98.4
[2024-10-08 10:38] VITALS: O2SAT 98
--- NOTE | 2024-10-08 17:33 | P.DS ---
Admission Date: 10/08/24 Discharge Date: 10/08/24 Disposition: ROUTINE DISCHARGE Discharge Condition: GOOD Reason for Admission: Vascular access problem. Brief History of Present Illness: Diagnosis Vascular access problem ESRD Acute on chronic systolic CHF exacerbation Anemia of chronic disease History of PR\CVA\CAD Paroxysmal atrial fibrillation Osteoarthritis\rheumatoid arthritis Gout\GERD\Insomnia\HLD HPI 10/06/24 Patient is a 64-year-old male with a past medical history significant ESRD, CHF, gout, hypertension, PR, osteoarthritis, rheumatoid arthritis, CVA, CAD who pre sents with complaint of vascular access problem. Patient reported that he woke up this morning and his dialysis catheter fell out. Patient reported he followed up with his nephrology last week and some sutures were removed from the dialysis catheter at site. Patient reported that he was able to control the bleeding by putting pressure in affected site. Patient currently reports pain in the dialysis access site. Patient rated pain as 8/10 in severity and described pain as aching in quality. Patient reports bilateral lower extremity swelling that has been ongoing for the past 1 week. Patient denies any other signs and symptoms. Symptoms are aggravated or relieved by nothing. Patient decided to present to the hospital for medical evaluation. Hospital Course: Patient was admitted and treated for the following diagnoses: Vascular access problem ESRD -Dr. Green placed dialysis catheter successfully and tolerated well -Dr. Rossi scheduled dialysis for 10/08/2024 at 1030 -Normal dialysis days are as follows: TTHS Acute on chronic systolic CHF exacerbation Paroxysmal atrial fibrillation History of PR\CVA\CAD -Dialysis 10/07/2024 status post dialysis catheter insertion, tolerated well -Continued home medications -Continuous telemetry with no acute events noted Anemia of chronic disease -H&H remainded stable this admission Osteoarthritis\rheumatoid arthritis Gout\GERD\Insomnia\HLD --Continued current pain medication regimen On 10/08/24, Natan was seen on morning rounds and deemed hemodynamically stable. Dr. Rossi evaluated and cleared him for discharge. Robaxin and lidocaine patch prescribed. Follow-up with PCP and Dr. Rossi outpatient. Attend dialysis at 1030 today, 10/08/2024. Physical Exam General: AAO x3, Cooperative HEENT: Atraumatic, PERRLA, Mucous membr. moist/pink, EOMI, Sclerae nonicteric Neck: Supple, 2+ carotid pulse no bruit, No LAD, Without JVD or thyroid abnormality Respiratory: Clear to auscultation bilaterally, Normal air movement Cardiovascular: RRR, Normal S1 S2 present Capillary refill: <2 Seconds Gastrointestinal: Normal bowel sounds, Soft on palpation, Musculoskeletal: No clubbing, No tenderness Integumentary: No rashes Neurological: Normal speech, Normal strength at 5/5 x4 extr Vital Signs/Physical Exam: Temp Pulse Resp BP Pulse Ox 98.4 F 84 16 111/75 97 10/08/24 08:00 10/08/24 09:01 10/08/24 08:00 10/08/24 09:01 10/08/24 08:00 Laboratory Data at Discharge: WBC 5.90 thou/uL (4.3-10.9) 10/07/24 04:38 Hgb 10.9 g/dL (13.6-17.9) L 10/07/24 04:38 Hct 33.0 % (39.6-49.0) L 10/07/24 04:38 Plt Count 160 thou/uL (152-406) 10/07/24 04:38 PT 12.2 SECONDS (9.4-12.5) 10/06/24 13:25 INR 1.16 10/06/24 13:25 APTT 26.3 SECONDS (24.3-36.9) 10/06/24 10:34 Sodium 135 mEq/L (136-145) L 10/07/24 04:38 Potassium 5.2 mEq/L (3.5-5.1) H 10/07/24 04:38 BUN 83 mg/dL (7-18) H 10/07/24 04:38 Creatinine 7.43 mg/dL (0.70-1.30) H 10/07/24 04:38 Glucose 141 mg/dL (74-106) H 10/07/24 04:38 Phosphorus 6.1 mg/dL (2.5-4.9) H 10/07/24 04:38 Magnesium 2.6 mg/dL (1.6-2.4) H 10/07/24 04:38 Home Medications: Acetaminophen [Tylenol Extra Strength] 500 mg PO Q4H PRN 07/27/24 Amiodarone HCl [Cordarone*] 200 mg PO DAILY 07/27/24 Aspirin Chewable [Aspirin Chewable*] 81 mg PO DAILY 07/27/24 Atorvastatin Calcium [Lipitor] 40 mg PO BEDTIME 07/27/24 Bumetanide [Bumex] 2 g PO BID 07/27/24 Folic Acid 1 mg PO DAILY 07/27/24 Melatonin [Melatonin*] 6 mg PO BEDTIME 07/27/24 Metoprolol Succinate [Toprol Xl*] 1 tab PO BID 07/27/24 Midodrine HCl 10 mg PO DAILY PRN 07/27/24 Pantoprazole [Protonix Tab*] 40 mg PO BID 07/27/24 Sacubitril/Valsartan [Entresto 97 mg-103 mg Tablet] 1 tab PO BID 07/27/24 Vitamin D [Drisdol*] 50,000 unit PO Q7D 07/27/24 predniSONE [Prednisone*] 20 mg PO DAILY #30 tab 08/01/24 Lidocaine 4% Patch [Lidoderm 5% Patch*] 3 patch TOP DAILY #90 pat 10/08/24 methocarbamoL [Robaxin*] 500 mg PO QID PRN #30 tab 10/08/24 New Medications: Lidocaine 4% Patch [Lidoderm 5% Patch*] 3 patch TOP DAILY #90 pat methocarbamoL [Robaxin*] 500 mg PO QID PRN #30 tab PRN Reason: Muscle Spasms Physician Discharge Instructions: -DC IV and DC home -Follow-up with PCP in 1 to 2 weeks -Follow-up with Nephrology in 1 to 2 weeks -Follow-up with Dialysis clinic for hemodialysis -Please call Dr. Cerrato at [phone] if any questions regarding hospital stay -Please call nursing station at [phone] if any nursing or medication questions -Return to the emergency room if symptoms worsen Diet: Renal Activity: Fall precautions Followup: Leonardo Rossi DO [ACTIVE - CAN ADMIT] - 1-2 Weeks Mak Green MD [ACTIVE - CAN ADMIT] - If your Symptoms Worsen Anton Hayes DO [Primary Care Provider] - 1-2 Weeks
--- NOTE | 2024-10-08 20:23 | P.PN ---
Date of Service: 10/08/24 Vital Signs Temp Pulse Resp BP Pulse Ox 98.4 F 84 16 111/75 97 10/08/24 08:00 10/08/24 09:01 10/08/24 08:00 10/08/24 09:01 10/08/24 08:00 Microbiology Results 10/06/24 22:35 Clean Catch Urine [place] Count - Preliminary >100,000 CFU/ML. 10/06/24 22:35 Clean Catch Urine - Preliminary MIXED HENNY. Assessment/ Plan: Nephrology No dyspnea No chest pain Persistent edema No acute events overnight Vitals, medications, blood work and imaging reviewed in the chart General: In no apparent distress, Cooperative HEENT: Atraumatic Neck: Supple Respiratory: Diminished Cardiovascular: Regular rate/rhythm Gastrointestinal: Soft and benign, Non-distended Musculoskeletal: No clubbing, No contractures Integumentary: No rashes, No cyanosis Neurological: Normal speech Blood work reviewed in the chart. Imagings Data: [id number] EXAMINATION: ONE VIEW CHEST XR CLINICAL INDICATION: Catheter placement TECHNIQUE: Frontal chest projection is submitted. Examination is limited by patient positioning and technique. COMPARISON: 10/06/2024 FINDINGS: Mild pulmonary edema/vascular congestion. The heart is moderately enlarged in size. No displaced fractures identified. Right-sided venous catheters tip in SVC. No pneumothorax. IMPRESSION: No postprocedure pneumothorax. [id number] Procedure: Chest Single View HISTORY: Dialysis catheter fell out COMPARISON: August 2024 FINDINGS: The lungs appear clear of acute infiltrate. No significant pleural effusion noted. Marked cardiomegaly. No pneumothorax. IMPRESSION: No acute abnormality is displayed. Conclusions/Impression: ESRD on HD -HD TIW Vascular Access Absent -Surgery replaced HD CVC 10-07-24 Hyperkalemia -[facility] prn -HD TIW HTN with CKD/ CHF -Continue Metoprolol Systolic CHF, A/C -UF with HD -Continue Bumex Anemia in CKD -Retacrit qHD CKD MBD Secondary HyperParathyroidism -Continue Ergo -Continue Renvela Hospitalist note reviewed Case reviewed with hospitalist team
--- NOTE | 2024-10-18 20:03 | CON ---
Brief Hpi: The patient is a 64-year-old black male with a past medical history of end-stage renal di sease, CHF, gout, hypertension, myocardial infarction, osteoarthritis, rheumatoid arthritis, CVA, cor onary artery disease, who recently had a right subclavian hemodialysis catheter placed at another [facility] in [facility]. He states that he ultimately had the snag against some objects he is unsure of and ultimately he felt the catheter got pulled out in its entirety. He simply held a little pressure in the area and came to the emergency room with the above stated issue. He notes pa in in the area. He is uncertain of how this actually got completely removed. As such, he presents f or need for hemodialysis access. Past Medical History: End-stage renal disease, CHF, gout, hypertension, myocardial infarction, osteo arthritis, rheumatoid arthritis, CVA, coronary artery disease, alcoholic pancreatitis, alcoholic card iomyopathy, history of cocaine abuse, gout, mural thrombus of the left ventricle which is resolved on Eliquis, hepatitis C after he has received treatment in 08/2023. Surgical Procedures: Include coronary artery stent in 2019, removal of pinky of the left hand, cardi ac catheterization, placement of a right subclavian hemodialysis catheter just over several weeks ago . Family History: The patient currently lives at home with his and is on disability due to his he art condition. Family history is significant for cancer, liver disease. Mother had gastrointestinal disease. Social History: He denies smoking. Drinks alcohol recreationally and has a significant alcohol hist ory. Denies recreational drug use otherwise. Review of Systems: Ten-point review of systems other than HPI, denies. Physical Examination: At the time of examination, General: He is awake, alert, and oriented. Psychiatric: Appropriate and conversive. HEENT: Normocephalic. Sclerae are anicteric. Mucosa membranes are moist. Oropharynx clear. Neck: Supple without JVD. His right subclavian catheter site is clean and currently packed well. I have examined it. There is no evidence of active bleeding or infection at the site where the previo us catheter was evident. Cardiovascular: Regular rate and rhythm. Pulmonary: Clear to auscultation bilaterally. Abdomen: Soft. Extremities: No clubbing, cyanosis, or edema. Skin: Warm and dry. Laboratory Data: Reveals a white blood cell count of 6.8, hemoglobin 11.2, hematocrit 34.5, platelet count is 160. PT 11.7, INR 1.12, PTT is 26.3. Sodium 139, potassium 4.7, chloride 106, carbon diox freddy is 24, BUN 72, creatinine 6.7, glucose 105, phosphorus is 5.1, and his magnesium is 2.4. UA was essentially negative. Assessment And Plan: This is a 64-year-old male who had recently placed hemodialysis catheter, which is now out in need of additional hemodialysis access. 1. Continue current medical management. 2. I have explained the risks, benefits, and alternatives of placement of a tunneled hemodialysis cat heter including, but not limited to bleeding, infection, damage to surrounding tissues, pneumothorax, injury to heart, great blood vessels, other unforeseen complication of the perioperative period incl uding blood clots, heart attack, strokes, and other unforeseen complications related to anesthesia an d non-anesthesia related issues, difficulty with catheter usage, need for further operation and proce dures. The patient displayed understanding of the above-stated plan, agreed to proceed as indicated. GURINDER/TERRELL Voice ID: [id number] Report ID: [id number]
== END 2024-10-08 10:56 | disposition home or self-care (01) | DRG 673 ==
LOC: ER 09:24 → ERHOLD 12:15 → 2ND 16:14 → OBSVTOIN 10-08 08:00
PROVIDERS: ADMIT Hospitalist; ATTEND Hospitalist
PROC: 02HV33Z Insertion of Infusion Device into Superior Vena Cava, Percutaneous Approach (ICD-10-PCS; 2024-10-07)
PROC: 5A1D70Z Performance of Urinary Filtration, Intermittent, Less than 6 Hours Per Day (ICD-10-PCS; 2024-10-07)
PROC: 0JH63XZ Insertion of Tunneled Vascular Access Device into Chest Subcutaneous Tissue and Fascia, Percutaneous Approach (ICD-10-PCS; principal; 2024-10-07 14:00)
DX: T82.42XA Displacement of vascular dialysis catheter, initial encounter (principal); I50.23 Acute on chronic systolic (congestive) heart failure; I13.2 Hypertensive heart and chronic kidney disease with heart failure and with stage 5 chronic kidney disease, or end stage renal disease; N25.81 Secondary hyperparathyroidism of renal origin; N18.6 End stage renal disease; D63.1 Anemia in chronic kidney disease; I48.0 Paroxysmal atrial fibrillation; M06.9 Rheumatoid arthritis, unspecified; E87.5 Hyperkalemia; G47.00 Insomnia, unspecified; M19.90 Unspecified osteoarthritis, unspecified site; K21.9 Gastro-esophageal reflux disease without esophagitis; I25.2 Old myocardial infarction; I25.10 Atherosclerotic heart disease of native coronary artery without angina pectoris; Z88.0 Allergy status to penicillin; Z95.5 Presence of coronary angioplasty implant and graft; Z79.82 Long term (current) use of aspirin; Z79.52 Long term (current) use of systemic steroids; Z86.73 Personal history of transient ischemic attack (TIA), and cerebral infarction without residual deficits; Z79.899 Other long term (current) drug therapy
CPT/HCPCS: 36415; 71045; 76000; 80048; 81001; 83735; 83880; 84100; 85025; 85610; 85730; 87077; 87086; 87088; 87186; 90935; 99284; C1752; G0378; J1171; J1644; J2003; J2405; J2704; J3010; J7040

== ENCOUNTER 2024-10-09 08:18 | Inpatient (IN) | payer OTHER ==
[2024-10-09 10:22] LABS: Absolute Lymphocytes (CBC) 0.8 K/uL (0.7-4.9); Absolute Neutrophil 4.8 K/uL (1.8-8.0); Basophils % 0.4 % (0-1.3); Eosinophils % 0.5 % (0-4.4); Hematocrit 30.4 % (39.6-49.0); Hemoglobin 9.9 g/dL (13.6-17.9); Lymphocytes % 12.4 % (15.3-44.8); MCH 30.4 pg (27.0-35.0); MCHC 32.6 g/dL (32.0-36.0); MCV 93.4 fL (80-100); MPV 8.5 fL (7.6-11.3); Monocytes % 15.5 % (3.3-12.3); Neutrophils % 71.2 % (41.7-73.7); Nucleated Red Blood Cells % 0.2 % (0-0); Platelets 122 thou/uL (152-406); RBC Red Blood Cell Count 3.25 M/uL (4.33-5.43); Red Cell Distribution Width 17.5 % (12.1-15.2)
[2024-10-09 10:41] LABS: PT Prothrombin Time 12.9 SECONDS (9.4-12.5); Protime INR 1.23
--- NOTE | 2024-10-09 10:55 | RAD REPORT ---
EXAM: CT brain without contrast HISTORY: PAIN COMPARISON: None TECHNIQUE: Multiple contiguous axial images were obtained and a CT of the brain without contrast. Sag ittal and coronal reformats were performed. One or more of the following dose reduction techniques were used: Automated exposure control, adjust ment of the mA and/or kV according to patient size, and/or iterative reconstruction. FINDINGS: No evidence of hydrocephalus, intracranial hemorrhage, or extra-axial fluid collection. Mild brain atrophy with mild periventricular and deep white matter chronic microvascular ischemic ch anges present. No evidence of midline shift or areas of brain edema. The calvarium is intact. The visualized paranasal sinuses and mastoid air cells are essentially clear . IMPRESSION: No evidence of acute intracranial abnormality. EXAM: CT of the cervical spine without contrast HISTORY: Neck pain, injury PAIN TECHNIQUE: Multiple contiguous axial images were obtained in a CT of the cervical spine without contr ast. Sagittal and coronal reformats were performed. FINDINGS: The vertebral bodies demonstrate normal height and alignment. No evidence of acute fracture or subluxation.. Moderate disc thinning with posterior osteophyte seen lower cervical levels. No prevertebral soft tissue swelling is seen. The posterior facets are well aligned. Normal alignment of the skull base with the cervical spine is seen. The lung apices are unremarkable. IMPRESSION: No evidence of acute osseous abnormality of the cervical spine.
--- NOTE | 2024-10-09 11:01 | RAD REPORT ---
EXAM: CT CHEST, ABDOMEN AND PELVIS WITHOUT CONTRAST CLINICAL INDICATION: FALL TECHNIQUE: CT chest, abdomen and pelvis was performed without contrast, as per department protocol. A xial, sagittal and coronal reconstructions were obtained. One or more of the following dose reduction techniques were used: Automated exposure control, adjustment of the mA and/or kV according to patient size, and/or iterative reconstruction. Unless otherwise specified, incidental findings do not require dedicated imaging follow-up. Examination is limited by the lack of intravenous contrast material. COMPARISON: 08/29/2024 FINDINGS: LUNGS: Subtle groundglass opacity bilaterally suggests mild interstitial pulmonary edema. The heart i s enlarged with a small amount of pericardial effusion. PLEURA: No pleural effusion. No pneumothorax. MEDIASTINUM AND LYMPH NODES: No mediastinal mass or fluid collection. Normal size mediastinal, hilar, and axillary lymph nodes. Right-sided venous catheters tip in SVC. Postsurgical changes are present right chest wall. OSSEOUS STRUCTURES AND CHEST WALL: Subpectoral left-sided oblong fluid density collection has moderat morgan decreased in size since 08/29/2024 currently measuring 12 x 5 cm. LIVER: There is a mild nodular contour to the liver parenchyma. No aggressive liver lesion grossly se en. No biliary dilatation. Grossly unremarkable gallbladder. PANCREAS: No mass, ductal dilation, or maikol-pancreatic fluid. SPLEEN: Normal size. No focal lesion. ADRENALS: Normal; no mass. KIDNEYS: Normal size and contour. No hydronephrosis. URINARY BLADDER: Normal contour. GASTROINTESTINAL TRACT: No bowel obstruction, free air, significant free fluid or abscess. APPENDIX: Short appendix noted. LYMPH NODES: No lymphadenopathy. MUSCULOSKELETAL: Mild degenerative levoscoliosis. OTHER: Small bilateral fat-containing inguinal hernias, slightly larger on the right. IMPRESSION: Cardiomegaly with small pericardial effusion and mild interstitial pulmonary edema suspected. Mild liver cirrhosis. Left-sided subpectoral fluid density collection has moderately decreased since the comparative study.
--- NOTE | 2024-10-09 11:02 | RAD REPORT ---
EXAMINATION: ONE VIEW CHEST XR CLINICAL INDICATION: COUGH TECHNIQUE: Frontal chest projection is submitted. Examination is limited by patient positioning and t echnique. COMPARISON: 10/07/2024 FINDINGS: Mild interstitial pulmonary edema. The heart is moderately enlarged. No displaced fractures identifie d. Right-sided venous catheters tip in SVC. IMPRESSION: Mild CHF versus volume overload pattern is suspected.
[2024-10-09 11:07] LABS: Albumin 2.7 g/dL (3.4-5.0); Albumin/Globulin Ratio 0.7 (1.1-1.8); Anion Gap 16.2 mEq/L (5.0-15.0); Bilirubin Direct 0.8 mg/dL (0-0.2); Bilirubin Indirect, Calculated 0.4 mg/dL (0.2-0.8); Bilirubin Total 1.2 mg/dL (0.2-1.0); Globulin 3.7 g/dL (2.3-3.5); Magnesium 2.3 mg/dL (1.6-2.4); Potassium 5.2 mEq/L (3.5-5.1); Protein, Total 6.4 g/dL (6.4-8.2)
[2024-10-09 11:28] LABS: Influenza A Ag Negative; Influenza B Ag Negative; SARS-CoV-2 Antigen Rapid Res ND (Negative)
--- NOTE | 2024-10-09 12:21 | EDPHYS ---
Physician Documentation [facility] Name: Natan Paulino Age: 64 yrs Sex: Male : 1960 Arrival Date: 10/09/2024 Time: 08:18 Bed 20 Private MD: ED Physician Brandon Masterson HPI: 10/09 12:03 This 64 yrs old Black Male presents to ER via Ambulatory with complaints of Pain All deejay Over. 12:03 The patient has shortness of breath at rest, with light activity. Onset: The deejay symptoms/episode began/occurred 1 day(s) ago. Duration: The symptoms are continuous, and are unchanged since they started. The patient's shortness of breath is aggravated by exertion, light activity, supine position, is alleviated by rest, sitting up, application of supplemental oxygen. DIALYSIS, PAIN ALL OVER , NO DIALYSIS 3 DAYS. Associated signs and symptoms: The patient has no apparent associated signs or symptoms. Severity of symptoms: At their worst the symptoms were moderate in the emergency department the symptoms are unchanged. The patient has experienced similar episodes in the past, several times. Historical: - Allergies: 08:29 PENICILLINS; ss - PMHx: 08:29 Atrial fibrillation; CHF; Gout; Hypertension; kidney disease; Myocardial infarction; ss osteoarthritis; Pancreatitis; Rheumatoid Arthritis; stroke; TIA; - PSHx: 08:29 finger; heart stent; Stented artery; ss - Immunization history:: Adult Immunizations up to date. - Infectious Disease History:: Denies. - Family history:: not pertinent. - Social history:: Smoking status: . ROS: 12:03 Constitutional: Negative for fever, chills, and weight loss, Eyes: Negative for injury, deejay pain, redness, and discharge, ENT: Negative for injury, pain, and discharge, Neck: Negative for injury, pain, and swelling, Cardiovascular: Negative for chest pain, palpitations, and edema, Abdomen/GI: Negative for abdominal pain, nausea, vomiting, diarrhea, and constipation, Back: Negative for injury and pain, : Negative for injury, bleeding, discharge, and swelling, MS/Extremity: Negative for injury and deformity, Skin: Negative for injury, rash, and discoloration, Neuro: Negative for headache, weakness, numbness, tingling, and seizure, Psych: Negative for depression, anxiety, suicide ideation, homicidal ideation, and hallucinations, Allergy/Immunology: Negative for hives, rash, and allergies, Endocrine: Negative for neck swelling, polydipsia, polyuria, polyphagia, and marked weight changes, Hematologic/Lymphatic: Negative for swollen nodes, abnormal bleeding, and unusual bruising, 12:03 Respiratory: Positive for cough, shortness of breath, Exam: 12:03 Constitutional: This is a well developed, well nourished patient who is awake, alert, deejay and in no acute distress. Head/Face: Normocephalic, atraumatic. Eyes: Pupils equal round and reactive to light, extra-ocular motions intact. Lids and lashes normal. Conjunctiva and sclera are non-icteric and not injected. Cornea within normal limits. Periorbital areas with no swelling, redness, or edema. ENT: Nares patent. No nasal discharge, no septal abnormalities noted. Tympanic membranes are normal and external auditory canals are clear. Oropharynx with no redness, swelling, or masses, exudates, or evidence of obstruction, uvula midline. Mucous membranes moist. Neck: Trachea midline, no thyromegaly or masses palpated, and no cervical lymphadenopathy. Supple, full range of motion without nuchal rigidity, or vertebral point tenderness. No Meningismus. Chest/axilla: Normal chest wall appearance and motion. Nontender with no deformity. No lesions are appreciated. Respiratory: Lungs have equal breath sounds bilaterally, clear to auscultation and percussion. No rales, rhonchi or wheezes noted. No increased work of breathing, no retractions or nasal flaring. Abdomen/GI: Soft, non-tender, with normal bowel sounds. No distension or tympany. No guarding or rebound. No evidence of tenderness throughout. Back: No spinal tenderness. No costovertebral tenderness. Full range of motion. Male : Normal genitalia with no discharge or lesions. Skin: Warm, dry with normal turgor. Normal color with no rashes, no lesions, and no evidence of cellulitis. MS/ Extremity: Pulses equal, no cyanosis. Neurovascular intact. Full, normal range of motion., bilateral aka Psych: Awake, alert, with orientation to person, place and time. Behavior, mood, and affect are within normal limits. 12:03 Cardiovascular: Rate: normal, actual rate is 79 bpm, Rhythm: regular, Pulses: Pulses are 4+ in bilateral radial, brachial, femoral, popliteal, posterior tibial and and dorsalis pedis arteries.. Heart sounds: normal, Edema: 1+ edema to level of left midcalf and right midcalf, JVD: is noted bilaterally, to 2 cm, 12:03 ECG was reviewed by the Attending Physician. Vital Signs: 08:30 BP 135 / 77; Pulse 84; Resp 16; Temp 97.6; Pulse Ox 97% ; Weight 89.36 kg; Height 6 ft. ss 3 in. ; 10:44 BP 130 / 74; Pulse 82; Resp 15; Pulse Ox 97% on R/A; Pain 10/10; hb 12:00 BP 136 / 86; Pulse 80; Resp 16; Pulse Ox 99% on R/A; hb 13:00 BP 147 / 86; Pulse 78; Resp 12; Pulse Ox 99% ; me1 14:00 BP 143 / 83; Pulse 82; Resp 10; Pulse Ox 92% ; me1 15:00 BP 147 / 80; Pulse 81; Resp 13; Temp 98.2; Pulse Ox 99% ; me1 08:30 Body Mass Index 24.62 (89.36 kg, 190.5 cm) ss 10:44 Pain Scale: Adult hb MDM: 08:27 Medical Screening Exam initiated deejay 12:07 Differential diagnosis: Anemia asthma, CHF exacerbation, pneumonia, pulmonary edema, deejay reactive airway disease, Sepsis Unstable Angina. Antibiotic administration: Not indicated. Differential Diagnosis altered mental status, sepsis, flu. Immunization status: Pneumococcal vaccine: within last 5 years. Influenza vaccine: within last 5 years. Data reviewed: vital signs, nurses notes, EMS record, lab test result(s), EKG, radiologic studies, CT scan, plain films. Consideration of Admission/Observation Patient was admitted/placed on observation. Escalation of care including admission/observation considered. I considered the following discharge prescriptions or medication management in the emergency department Medications were administered in the Emergency Department. See MAR. Independent interpretation of the following test(s) in the Emergency Department EKG: See my EKG interpretation above. Test considered but Not performed: Ultrasound NO 2 D ECHO. Historians other than the Patient: EMS: EMS WELL INFORMED. Family Member: WELL INFORMED. Care significantly affected by the following chronic conditions: Diabetes, Hypertension, Obesity, Chronic Kidney Disease. Counseling: I had a detailed discussion with the patient and/or guardian regarding the historical points, exam findings, and any diagnostic results supporting the discharge/admit diagnosis, lab results, radiology results, the need for further work-up and treatment in the hospital. 10/09 09:09 Order name: Basic Metabolic Panel; Complete Time: 11:52 [facility] 10/09 09:09 Order name: CBC with Diff; Complete Time: 11:52 [facility] 10/09 09:09 Order name: LFT's; Complete Time: 11: [facility] 10/09 09:09 Order name: Magnesium; Complete Time: 11:52 [facility] 10/09 09:09 Order name: NT PRO-BNP; Complete Time: 11: [facility] 10/09 09:09 Order name: PT-INR; Complete Time: 11: [facility] 10/09 09:09 Order name: Troponin HS; Complete Time: 11: [facility] 10/09 09:09 Order name: Lipase; Complete Time: 11:52 [facility] 10/09 09:09 Order name: Urinalysis w/ reflexes [facility] 10/09 11:06 Order name: COVID-19 Ag + Flu A+B Ag; Complete Time: 11:52 [facility] 10/09 13:00 Order name: Basic Metabolic Panel [facility] 10/09 13:00 Order name: Basic Metabolic Panel [facility] 10/09 13:00 Order name: CBC with Automated Diff [facility] 10/09 13:00 Order name: CBC with Automated Diff [facility] 10/09 13:00 Order name: Magnesium [facility] 10/09 13:00 Order name: Magnesium [facility] 10/09 13:00 Order name: Phosphorus [facility] 10/09 13:00 Order name: Phosphorus [facility] 10/09 13:00 Order name: Troponin High Sensitivity [facility] 10/09 13:00 Order name: Troponin High Sensitivity [facility] 10/09 13:00 Order name: Troponin High Sensitivity [facility] 10/09 09:09 Order name: XRAY Chest (1 view); Complete Time: 11:52 [facility] 10/09 09:52 Order name: Chest Abd Pelvis Wo Con; Complete Time: 11:52 [facility] 10/09 09:52 Order name: Head C Spine Mpr Wo Con; Complete Time: 11:52 [facility] 10/09 13:00 Order name: CONS Physician Consult [facility] 10/09 09:09 Order name: Cardiac monitoring; Complete Time: 10:43 [facility] 10/09 09:09 Order name: EKG - Nurse/Tech; Complete Time: : [facility] 10/09 09:09 Order name: IV Saline Lock; Complete Time: [facility] 10/09 09:09 Order name: Labs collected and sent; Complete Time: [facility] 10/09 09:09 Order name: O2 Per Protocol; Complete Time: [facility] 10/09 09:09 Order name: O2 Sat Monitoring; Complete Time: [facility] 10/09 09:09 Order name: IV - Large Bore; Complete Time: : [facility] EC:03 Rate is 79 beats/min. Rhythm is regular. QRS [place] is Normal. MD interval is prolonged deejay at 218 msec. QT interval is normal. No Q waves. T waves are Normal. No ST changes noted. Clinical impression: NSR w/ Non-specific ST/T Changes, 1st degree heart block, and No evidence of ischemia. Interpreted by me. Reviewed by me. Administered Medications: 12:30 Drug: HYDROmorphone IVP 1 mg IVP once Route: IVP; Site: left hand; hb 14:09 Follow up: Response: No adverse reaction; Pain is decreased me1 12:30 Drug: Ondansetron IVP 4 mg IVP once; over 2 minutes Route: IVP; Site: left hand; hb 14:09 Follow up: Response: No adverse reaction; Nausea is decreased me1 12:30 Drug: Famotidine IVP 20 mg IVP once; dilute with 10 mL 0.9% NaCl; give over 2 minutes hb Route: IVP; Site: left hand; 14:09 Follow up: Response: No adverse reaction me1 12:30 Drug: Aspirin PO Chewable Tablet 162 mg PO once Route: PO; hb 14:08 Follow up: Response: No adverse reaction me1 12:30 Drug: Eliquis PO 5 mg PO once Route: PO; hb 14:08 Follow up: Response: No adverse reaction me1 Disposition Summary: 10/09/24 12:20 Hospitalization Ordered Notes: Hospitalization Status: Inpatient Admission deejay Provider: Abram Cerrato cha Location: Telemetry/MedSurg (Inpatient) deejay Condition: Fair deejay Problem: new deejay Symptoms: have improved deejay Bed/Room Type: Standard [facility] Room Assignment: 212(10/09/24 13:41) em1 Diagnosis - Dependence on renal dialysis deejay - Chronic combined systolic (congestive) and diastolic (congestive) heart failure deejay - Hyperkalemia 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 EDMS EDMS 09:10 09:10 Head C Spine Cap Wo Con+CT.RAD.BRZ ordered. EDMS EDMS 11:05 10:18 Influenza Screen (A \T\ B)+BA.LAB.BRZ ordered. EDMS EDMS 13:41 12:20 deejay em1
--- NOTE | 2024-10-09 12:21 | ER ---
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 Pt is back today ss c/o pain all over. Coronavirus screen: Client denies travel out of the [place] in the last 14 days. Ebola Screen: Patient denies exposure to infectious person. Patient denies travel to an Ebola-affected area in the 21 days before illness onset. Initial Sepsis Screen: Does the patient meet any 2 criteria? No. Patient's initial sepsis screen is negative. Does the patient have a suspected source of infection? No. Patient's initial sepsis screen is negative. Risk Assessment: Do you want to hurt yourself or someone else? Patient reports no desire to harm self or others. Onset of symptoms is unknown. 08:27 Method Of Arrival: Ambulatory 08:27 Acuity: NINO 3 ss Historical: - Allergies: 08:29 PENICILLINS; ss - PMHx: 08:29 Atrial fibrillation; CHF; Gout; Hypertension; kidney disease; Myocardial infarction; ss osteoarthritis; Pancreatitis; Rheumatoid Arthritis; stroke; TIA; - PSHx: 08:29 finger; heart stent; Stented artery; ss - Immunization history:: Adult Immunizations up to date. - Infectious Disease History:: Denies. - Family history:: not pertinent. - Social history:: Smoking status: . Screenin:[facility] ED Fall Risk Assessment (Adult) History of falling in the last 3 months, hb including since admission Yes- single mechanical fall (1 pt) Confusion or Disorientation No (0 pts) Intoxicated or Sedated No (0 pts) Impaired Gait Yes (1 pt) Mobility Assist Device Used Yes (1 pt) Altered Elimination No (0 pt) Score/Fall Risk Level 3 or more points = High Risk Oriented to surroundings, Maintained a safe environment, Educated pt \\T\\ family on fall prevention, incl call for assistance when getting out of bed, Assessed \\T\\ reinforced patient's understanding of fall precautions, Hourly rounding (assess needs \\T\\ fall precautionary measures) done. Abuse screen: Denies threats or abuse. Denies injuries from another. Nutritional screening: No deficits noted. Tuberculosis screening: No symptoms or risk factors identified. Assessment: 10:44 General: Appears in no apparent distress. Behavior is calm, cooperative. Pain: Pain hb currently is 10 out of 10 on a pain scale. Neuro: Level of Consciousness is obeys commands, lethargic, Oriented to person, place, time, situation. Cardiovascular: Patient's skin is warm and dry. Respiratory: Respiratory effort is even, unlabored, Respiratory pattern is regular, symmetrical. GI: No signs and/or symptoms were reported involving the gastrointestinal system. : No signs and/or symptoms were reported regarding the genitourinary system. EENT: No signs and/or symptoms were reported regarding the EENT system. Derm: Skin is pink, warm \\T\\ dry. Musculoskeletal: Reports pain "all over". 12:00 Reassessment: Patient appears in no apparent distress at this time. Patient and/or hb family updated on plan of care and expected duration. Pain level reassessed. Patient is alert, oriented x 3, equal unlabored respirations, skin warm/dry/pink. Vital Signs: 08:30 BP 135 / 77; Pulse 84; Resp 16; Temp 97.6; Pulse Ox 97% ; Weight 89.36 kg; Height 6 ft. ss 3 in. ; 10:44 BP 130 / 74; Pulse 82; Resp 15; Pulse Ox 97% on R/A; Pain 10/10; hb 12:00 BP 136 / 86; Pulse 80; Resp 16; Pulse Ox 99% on R/A; hb 13:00 BP 147 / 86; Pulse 78; Resp 12; Pulse Ox 99% ; me1 14:00 BP 143 / 83; Pulse 82; Resp 10; Pulse Ox 92% ; me1 15:00 BP 147 / 80; Pulse 81; Resp 13; Temp 98.2; Pulse Ox 99% ; me1 08:30 Body Mass Index 24.62 (89.36 kg, 190.5 cm) ss 10:44 Pain Scale: Adult hb ED Course: 08:20 Patient arrived in ED. em1 08:27 Brandon Masterson MD is Attending Physician. deejay 08:29 Triage completed. ss 08:29 Arm band placed on right wrist. ss 09:15 Patient has correct armband on for positive identification. Bed in low position. Call hb light in reach. Provided Education on: tests, result times. Client placed on continuous cardiac and pulse oximetry monitoring. NIBP monitoring applied. water mechanic on. Pulse ox on. NIBP on. 10:16 Initial lab(s) drawn, by me, sent to lab. Inserted saline lock: 22 gauge in left hand, hb using aseptic technique. Blood collected. Flushed with 10 mL NS. 10:25 Chest Abd Pelvis Wo Con In Process Unspecified. EDMS 10:25 Head C Spine Mpr Wo Con In Process Unspecified. EDMS 10:27 Lanie Bobo, RADHIKA is Primary Nurse. hb 10:38 XRAY Chest (1 view) In Process Unspecified. EDMS 12:18 Abram Cerrato MD is Hospitalizing Provider. deejay 14:06 No provider procedures requiring assistance completed. me1 14:07 Patient admitted, IV remains in place. me1 Administered Medications: 12:30 Drug: HYDROmorphone IVP 1 mg IVP once Route: IVP; Site: left hand; hb 14:09 Follow up: Response: No adverse reaction; Pain is decreased me1 12:30 Drug: Ondansetron IVP 4 mg IVP once; over 2 minutes Route: IVP; Site: left hand; hb 14:09 Follow up: Response: No adverse reaction; Nausea is decreased me1 12:30 Drug: Famotidine IVP 20 mg IVP once; dilute with 10 mL 0.9% NaCl; give over 2 minutes hb Route: IVP; Site: left hand; 14:09 Follow up: Response: No adverse reaction me1 12:30 Drug: Aspirin PO Chewable Tablet 162 mg PO once Route: PO; hb 14:08 Follow up: Response: No adverse reaction me1 12:30 Drug: Eliquis PO 5 mg PO once Route: PO; hb 14:08 Follow up: Response: No adverse reaction me1 Medication: 10:44 VIS not applicable for this client. hb Outcome: 12:20 Decision to Hospitalize by Provider. deejay 14:07 Admitted to Med/surg accompanied by [facility], via stretcher, room 212, with chart, Report me1 called to faxed, receipt confirmed with Sarah 14:07 Condition: stable 14:07 Instructed on the need for admit, 15:20 Patient left the ED. me1 Signatures: Dispatcher [employer] EDBrandon Scott MD MD cha Martinez, Eric 1 Valery Restrepo, RADHIKA GARRIDO Lanie Bobo RN RN Susan Alcantara RN RN me1 Corrections: (The following items were deleted from the chart) 11:05 10:43 Influenza Screen (A \\T\\ B)+BA.LAB.BRZ drawn and sent. [facility]
[2024-10-09] MEDS ORDERED: ACETAMINOPHEN 325 MG TABLET PO PRN (12:52)
--- NOTE | 2024-10-09 13:08 | P.HP ---
Certification for Inpatient Patient admitted to: Observation With expected LOS: <2 Midnights <Paulette Espinoza - Last Filed: 10/09/24 13:28> Patient History Date of Service: 10/09/24 Reason for admission: Fluid volume overload secondary to missed dialysis History of Present Illness: Natan Paulino is a 64-year-old male with past medical history of Atrial fibrillation, CHF, Gout, Hypertension, Myocardial infarction, osteoarthritis, Pancreatitis, Rheumatoid Arthritis, stroke/TIA, ESRD on dialysis who presents to the ED with complaints of missing dialysis. He was discharged on 10/08/2024 after dialysis on 10/07/2024 taking 2700 mL of fluid off. He was set to go to a 1030 dialysis at [facility] on 10/08/2024, day of discharge. He did not make it in time and has been 1 day without dialysis. Reports regular dialysis days are Saturday, , and Saturday. Laboratory evaluation hemoglobin 9.9/30.4, platelets 122, BUN/creatinine 69/7.31, GFR 8, troponin [address] head and C-spine reports "The vertebral bodies demonstrate normal height and alignment. No evidence of acute fracture or subluxation.. Moderate disc thinning with posterior osteophyte seen lower cervical levels. No prevertebral soft tissue swelling is seen. The posterior facets are well aligned. Normal alignment of the skull base with the cervical spine is seen. " CT chest abdomen pelvis reports "Cardiomegaly with small pericardial effusion and mild interstitial pulmonary edema suspected. Mild liver cirrhosis. Left- sided subpectoral fluid density collection has moderately decreased since the comparative study. " Chest x-ray reports "Mild interstitial pulmonary edema. The heart is moderately enlarged. No displaced fractures identified. Right-sided venous catheters tip in SVC." Natan will be admitted to hospitalist service for dialysis, Dr. Rossi consulted. - Past Medical/Surgical History Diabetic: No -: HTN -: Systolic congestive 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 Rossi/ Dr. Cabral) -: CAD -: Mural thrombus-left ventricle-resolved, on Eliquis -: CVA/ TIA -: Hep C--rec'd treatment 08/2023 -: Cardiac stent placement July 2019 -: removal of L hand 5th digit -: Cardiac catheterization 08/2023 Psychosocial/ Personal History: Patient currently lives at home with his and is on disability due to heart condition. - Family History Father -: Cancer, Liver disease Mother -: GI disease, Other (see notes) Notes: NA - Social History Smoking Status: Never smoker Alcohol use: Yes CD- Drugs: Yes Caffeine use: Yes <Paulette Espinoza - Last Filed: 10/09/24 13:28> Date of Service: 10/09/24 <Abram Cerrato - Last Filed: 10/13/24 07:40> Allergies Penicillins Allergy (Verified 10/27/22 21:16) Hives/Rash Home Medications: Amiodarone HCl [Cordarone*] 200 mg PO DAILY 07/27/24 Aspirin Chewable [Aspirin Chewable*] 81 mg PO DAILY 07/27/24 Atorvastatin Calcium [Lipitor] 40 mg PO BEDTIME 07/27/24 Bumetanide [Bumex] 2 g PO BID 07/27/24 Folic Acid 1 mg PO DAILY 07/27/24 Melatonin [Melatonin*] 6 mg PO BEDTIME 07/27/24 Metoprolol Succinate [Toprol Xl*] 1 tab PO BID 07/27/24 Pantoprazole [Protonix Tab*] 40 mg PO BID 07/27/24 Sacubitril/Valsartan [Entresto 97 mg-103 mg Tablet] 1 tab PO BID 07/27/24 Vitamin D [Drisdol*] 50,000 unit PO Q7D 07/27/24 predniSONE [Prednisone*] 20 mg PO DAILY #30 tab 08/01/24 Lidocaine 4% Patch [Lidoderm 5% Patch*] 3 patch TOP DAILY #90 pat 10/08/24 methocarbamoL [Robaxin*] 500 mg PO QID PRN #30 tab 10/08/24 Review of Systems Other: Per HPI <Paulette Espinoza - Last Filed: 10/09/24 13:28> Physical Examination - Physical Exam General: Alert, In no apparent distress, Oriented x3 HEENT: Atraumatic, Normocephalic, PERRLA Respiratory: Clear to auscultation bilaterally, Normal air movement Cardiovascular: Normal pulses, Regular rate/rhythm, Normal S1 S2 Gastrointestinal: Normal bowel sounds, Soft and benign Musculoskeletal: No clubbing Integumentary: No rashes Neurological: Normal speech, Normal tone - Studies Laboratory Data (last 24 hrs) 10/09/24 10/09/24 10/09/24 10:16 10:16 10:16 WBC 6.70 Hgb 9.9 L Hct 30.4 L Plt Count 122 L PT 12.9 H INR 1.23 Sodium 135 L Potassium 5.2 H BUN 69 H Creatinine 7.31 H Glucose 102 Magnesium 2.3 Total Bilirubin 1.2 H AST 14 L ALT 18 Alkaline Phosphatase 120 H Lipase 21 <Paulette Espinoza - Last Filed: 10/09/24 13:28> Assessment and Plan - Plan Assessment and plan Fluid volume overload secondary to missed dialysis ESRD with dialysis Pulmonary Edema Hyperkalemia -K 5.2, BUN/creatinine 69/7.31, GFR 8, BNP 23,000 -Chest x-ray reports "Mild interstitial pulmonary edema. The heart is moderately enlarged. No displaced fractures identified. Right-sided venous catheters tip in SVC." -Schedule dialysis T -Dr. Rossi consulted-recommendations appreciated -Hold IVF Acute on chronic systolic CHF exacerbation Elevated troponin Paroxysmal atrial fibrillation -Troponin 696, serial pending -Fluid volume managed with dialysis -Daily weights and strict I's and O's -Continue home medication -Continuous telemetry Anemia of chronic disease -Monitor H&H -Transfuse if hemoglobin is less than 7 Osteoarthritis rheumatoid arthritis Gout GERD Insomnia HLD/HTN Pancreatitis Stroke/TIA -Continue home medication -Supportive care DVT PPx heparin Full code LOS 24-hour OBS Discharge Plan: Home Plan to discharge in: 24 Hours - Advance Directives Does patient have a Living Will: No Does patient have a Durable POA for Healthcare: No <Paulette Espinoza - Last Filed: 10/09/24 13:28> - Problems (Diagnosis) (1) Polyarthropathy Current Visit: Yes Status: Acute (2) ESRD (end stage renal disease) Current Visit: Yes Status: Acute (3) Atrial fibrillation Current Visit: No Status: Acute (4) Chronic systolic heart failure Current Visit: No Status: Chronic (5) HTN (hypertension) Current Visit: No Status: Chronic Qualifiers: Hypertension type: primary hypertension Qualified Code(s): I10 - Essential (primary) hypertension (6) History of gout Current Visit: No Status: Chronic (7) Fluid overload Current Visit: Yes Status: Acute <Abram Cerrato - Last Filed: 10/13/24 07:40> Date of Service: 10/09/24 Chart has been reviewed. Events of the last 24 hours have been noted. Case discussed with HARMAN. I performed a substantial part of the MDM during this patient's care today. I personally made or approved the documented management plan and acknowledge its risk of complications. I agree with the findings and documentation provided in the HARMAN's notes <Abram Cerrato - Last Filed: 10/13/24 07:40>
[2024-10-09] MEDS: FENTANYL CITR 100 MCG/2 ML IV ONE ×2 (16:14→18:36)
[2024-10-09] MEDS: HEPARIN 5000 UNIT/ML 1 ML VIAL SQ SCH (16:48)
--- NOTE | 2024-10-09 17:12 | P.PN ---
Nephrology note (S) Pls see Dr. Rossi's consult note from 10/07 for full details, pt was discharged yesterday after CVC exchange but did not go to the OP dialysis unit as had been planned to get his regular treatment and instead cites generalized body aches and came back in to the ER earlier and was admitted for troponin leak and other. (O) Vitals reviewed in the EMR General: Chronically ill appearing, in some discomfort HEENT: Atraumatic, facial edema not needing O2 Neck: Supple, Rt IJ TDC, exit site c/d Respiratory: Normal air movement, non tachypnec, reduced BS bases Cardiovascular: Non tachy, no cardiac gallop heart sounds appreciated, left chest swelling Gastrointestinal: Mild distention, NT Musculoskeletal: chronic 1-2+ peripheral edema b/l, gouty tophi and other OA nodes Integumentary: No rashes Neurological: Normal speech, Normal tone, Normal affect Conclusions/Impression: 1. 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 S/p CVC exchange, will plan for brief HD today to make up missed treatment and additional HD tmrw per OP TTS schedule 2. Hyperkalemia -will dialyze with low K bath 3. 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 Chronic troponin leak with current levels within range seen prev. Management per cardiology, cont Entresto if BP allows 4. Chronic HTN with heart and kidney disease -f/u BP closely, has been in cardiogenic shock in the past, may not tolerate more afterload reduction, target BP < 130/80 otherwise 5. Generalized body aches, pain, other -will defer to IM team to investigate, manage, recommend caution with any narcotic agents
[2024-10-09] MEDS: HYDROMORPHONE HCL 2 MG/ML inj IV PRN (21:05)
[2024-10-10 04:49] LABS: Absolute Basophils 0.1 K/uL (0-0.5); Absolute Lymphocytes (CBC) 0.8 K/uL (0.7-4.9); Absolute Monocytes 1.2 K/uL (0.1-1.3); Basophils % 0.9 % (0-1.3); Eosinophils % 0.3 % (0-4.4); Hematocrit 30.7 % (39.6-49.0); Hemoglobin 10.2 g/dL (13.6-17.9); Lymphocytes % 11.5 % (15.3-44.8); MCH 30.7 pg (27.0-35.0); MCHC 33.3 g/dL (32.0-36.0); MCV 92.1 fL (80-100); MPV 9.3 fL (7.6-11.3); Monocytes % 17.1 % (3.3-12.3); Neutrophils % 70.2 % (41.7-73.7); Platelets 112 thou/uL (152-406); RBC Red Blood Cell Count 3.33 M/uL (4.33-5.43); Red Cell Distribution Width 17.7 % (12.1-15.2)
[2024-10-10 05:30] LABS: Anion Gap 15.2 mEq/L (5.0-15.0); Magnesium 2.3 mg/dL (1.6-2.4); Phosphorus 5.8 mg/dL (2.5-4.9); Potassium 5.2 mEq/L (3.5-5.1)
[2024-10-10] MEDS: METOPROLOL XL 25 MG TAB PO SCH (07:46)
[2024-10-10] MEDS: ASPIRIN 81 MG CHEWABLE TABLET PO SCH (07:46)
[2024-10-10] MEDS: LIDOCAINE 4% PATCH TOP SCH (07:46)
[2024-10-10] MEDS: FOLIC ACID 1 MG TABLET PO SCH (07:50)
[2024-10-10] MEDS: PANTOPRAZOLE 40MG TABLET PO SCH (07:50)
[2024-10-10] MEDS: allopurinoL 100 MG TAB PO SCH (07:50)
[2024-10-10] MEDS: AMIODARONE HCL 200 MG TAB PO SCH (07:50)
[2024-10-10] MEDS: COLCHICINE 0.6 MG TAB PO SCH ×2 (07:51→07:52)
[2024-10-10] MEDS: BUMETANIDE 1 MG TABLET PO SCH (07:51)
[2024-10-10] MEDS: METHYLPREDNISOLONE 125 MG INJ IV SCH (07:51)
--- NOTE | 2024-10-10 11:46 | P.PN ---
Date of Service: 10/10/24 Subjective Sleeping, febrile this AM c/o body aches, history of GOUT, will restart home medications ROS 10 point ROS as noted above, otherwise negative Physical Exam General: Alert and Oriented x3, NAD HEENT: Atraumatic, Normocephalic, PERRLA Respiratory: Clear to auscultation bilaterally, Normal air movement, on RA Cardiovascular: Normal pulses, RRR, Normal S1 S2 Gastrointestinal: Normal active bowel sounds, Soft and benign on palpation Musculoskeletal: No clubbing Integumentary: No rashes Neurological: Normal speech, Normal tone Vitals Reviewed Problem list Fluid volume overload secondary to missed dialysis ESRD with dialysis Pulmonary Edema Hyperkalemia Acute on chronic systolic CHF exacerbation Elevated troponin Paroxysmal atrial fibrillation Anemia of chronic disease Osteoarthritis rheumatoid arthritis Gout GERD Insomnia HLD/HTN Pancreatitis Stroke/TIA Assessment and plan Fluid volume overload secondary to missed dialysis ESRD with dialysis Pulmonary Edema Hyperkalemia -K 5.2, BUN/creatinine 69/7.31, GFR 8, BNP 23,000 -Chest x-ray reports "Mild interstitial pulmonary edema. The heart is moderately enlarged. No displaced fractures identified. Right-sided venous catheters tip in SVC." -Schedule dialysis T S -Dr. Rossi consulted-recommendations appreciated -Hold IVF Acute on chronic systolic CHF exacerbation Elevated troponin Paroxysmal atrial fibrillation -Troponin 696, serial pending -Fluid volume managed with dialysis -Daily weights and strict I's and O's -Continue home medication -Continuous telemetry Anemia of chronic disease -Monitor H&H -Transfuse if hemoglobin is less than 7 Osteoarthritis rheumatoid arthritis Gout GERD Insomnia HLD/HTN Pancreatitis Stroke/TIA -Continue home medication -Supportive care DVT PPx heparin Full code LOS 24-hour OBS
--- NOTE | 2024-10-10 12:08 | PN ---
Date of Progress Note: 10/10/2024 Subjective: The patient was seen and examined at bedside. He remains comfortable. Denies any compl aints. Physical Examination: Vital Signs: Showing fever with temperature of 102.2, pulse rate of 101, respiratory rate of 20, and blood pressure 111/62. General: He appears in no acute distress. HEENT: Atraumatic head. Chest: Right chest tunneled dialysis catheter in place. Abdomen: Soft and nontender. Extremities: Showed no evidence of edema. Laboratory Data: Consistent with ESRD with potassium of 5.2 and hemoglobin of 10.2. Current Medications: Include Tylenol, allopurinol, amiodarone, aspirin, Bumex, colchicine, heparin, Solu-Medrol every 6 hours, and Dilaudid p.r.n. for pain. Impression: 1. End-stage renal disease, on dialysis. 2. Fluid overload with pulmonary edema. 3. Elevated troponin, needing cardiac workup. 4. Rheumatoid arthritis, currently on IV Solu-Medrol. Plan: The patient will be getting dialysis today per his regular schedule on Saturday, , . However, he does have fever and he remains on steroids at this time. We will discuss with the primary team as the patient needs further workup to rule out infection and steroids possibly needs to be weaned down. We will continue to monitor closely and plan for dial ysis today according to his schedule. EDMUND/MODL Voice ID: [id number] Report ID: [id number]
--- NOTE | 2024-10-10 12:36 | P.PN ---
Date of Service: 10/10/24 Nighttime nurse, Marie, called me saying patient was in severe pain all night and could not even move as he screamed whenever they moved him. Went to examine the patient and patient with polyarthropathy. 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 Patient screams out whenever he moves them quickly. Patient with fluid in the right knee with significant tenderness in bilateral knee. Patient's ankles are minimally tender. Patient has a history of rheumatoid arthritis as well as gout. Most likely polyarthropathy from gout flareup or less likely rheumatoid. Go ahead and give him a dose of IV steroids and start colchicine. Patient's pain is paralyzing and will treat aggressively. Patient does not have ursodiol or allopurinol as a home medication although he tells me that he has had gout for a long time. He will need outpatient follow-up with rheumatology. We should be able to get his pain under control and get him turned around over the next 12 hours with aggressive treatment. Plan for arthrocentesis of the right knee.
[2024-10-10] MEDS: LIDOCAINE 1% MPF 5 ML VIAL IJ ONE (13:25)
--- NOTE | 2024-10-10 13:30 | P.BOP ---
Preoperative diagnosis: Right knee joint effusion Postoperative diagnosis: Gout arthropathy Primary procedure: Arthrocentesis Title One Teacher: Priscilla Estimated blood loss: None Specimen: Synovial fluid from the right knee Findings: 40 cc of synovial fluid Anesthesia: Local Complications: None Fluids & blood products: Synovial fluid Condition: Good Date of Service: 10/10/24 Patient was prepped and draped in sterile fashion; patient was cleaned with Betadine and Hibiclens. Landmarks identified. 1% lidocaine used for local anesthesia. We were able to remove 40 cc of serous fluid that was very viscous. There was no blood or purulence noted. Patient given Kenalog and lidocaine into the joint. Labs sent off including cell count with differential, crystals, protein and glucose, Gram stain and cultures
[2024-10-10] MEDS: TRIAMCINOLONE ACETON 40 MG/ML VIAL IM ONE (14:13)
[2024-10-10] MEDS: METHYLPREDNISOLONE 40 MG INJ IV SCH (14:14)
[2024-10-10 14:30] LABS: Body Fluid WBC 6876 /mm^3
[2024-10-10 16:05] LABS: Body Fluid Source SYNOVIAL
[2024-10-10 16:06] LABS: Appearance CLEAR (CLEAR); Color of Supernate Not Xanthochromic (Not Xantho); Color of fluid Yellow (COLORLESS)
[2024-10-10 16:12] LABS: Fluid Total Cells Count 100
[2024-10-10 16:13] LABS: Body Fluid Lymphocytes 5 %; Tube # SINGLE
[2024-10-10 16:16] VITALS: BMI 24.7
[2024-10-10] MEDS: MELATONIN 3 MG TABLET PO SCH (22:16)
[2024-10-10] MEDS: ATORVASTATIN 40 MG TAB PO SCH (22:18)
[2024-10-10] MEDS: HEPARIN 5000 UNIT/ML 1 ML VIAL SQ SCH (22:21)
[2024-10-11] MEDS: METHYLPREDNISOLONE 40 MG INJ ONE (03:50)
[2024-10-11] MEDS: predniSONE 20 MG TAB PO SCH (08:39)
[2024-10-11] MEDS: methocarbamoL 500 MG TAB PO PRN (17:38)
[2024-10-12] MEDS ORDERED: predniSONE 20 MG TAB PO SCH (09:00)
[2024-10-12] MEDS ORDERED: MANNITOL 25% 12.5 GM/50 ML VIAL IV PRN (10:00)
[2024-10-12] MEDS ORDERED: EPOETIN ALFA 10,000 UNIT/ML VIAL IV SCH (10:00)
[2024-10-12] MEDS ORDERED: ALBUMIN HUMAN 25% 50 ML IV SCH (10:00)
[2024-10-12] MEDS ORDERED: NA CHLORIDE 0.9% 1,000 ML IV PRN (10:00)
--- NOTE | 2024-10-12 10:02 | P.PN ---
Date of Service: 10/12/24 Vital Signs Temp Pulse Resp BP Pulse Ox 97.5 F 80 16 111/69 100 10/12/24 08:00 10/12/24 08:04 10/12/24 08:00 10/12/24 08:04 10/12/24 08:00 Medications Acetaminophen (Acetaminophen 325 Mg Tablet) 650 mg PO Q4HP PRN PRN Reason: Temp >100F or mild pain Allopurinol (Allopurinol 100 Mg Tab) 100 mg PO DAILY [facility] Last Admin: 10/12/24 08:04 Dose: 100 mg Amiodarone HCl (Amiodarone Hcl 200 Mg Tab) 200 mg PO DAILY [facility] Last Admin: 10/12/24 08:03 Dose: 200 mg Aspirin (Aspirin 81 Mg Chewable Tablet) 81 mg PO DAILY [facility] Last Admin: 10/12/24 08:03 Dose: 81 mg Atorvastatin Calcium (Atorvastatin 40 Mg Tab) 40 mg PO BEDTIME [facility] Last Admin: 10/11/24 20:55 Dose: 40 mg Bumetanide (Bumetanide 1 Mg Tablet) 2 mg PO BID [facility] Last Admin: 10/12/24 08:04 Dose: 2 mg Ergocalciferol (Drisdol (Vitamin D=Ergocalciferol) 89510 Unit Cap) 50,000 unit PO Q7D [facility] Folic Acid (Folic Acid 1 Mg Tablet) 1 mg PO DAILY [facility] Last Admin: 10/12/24 08:03 Dose: 1 mg Heparin Sodium (Porcine) (Heparin 1,000 Unit/Ml Vial) 6,000 unit IV EVERY HD PRN PRN Reason: FOR DIALYSIS CATHETER CARE Last Admin: 10/10/24 21:34 Dose: 6,000 unit Heparin Sodium (Porcine) (Heparin 5000 Unit/Ml 1 Ml Vial) 5,000 unit SQ Q12HR [facility] Last Admin: 10/12/24 08:03 Dose: 5,000 unit Hydromorphone HCl (Hydromorphone Hcl 2 Mg/Ml Inj) 2 mg IV Q6H PRN PRN Reason: Pain scale 8-10 (Severe) Last Admin: 10/12/24 07:55 Dose: 2 mg Lidocaine (Lidocaine 4% Patch) 3 patch TOP DAILY [facility] Last Admin: 10/12/24 08:03 Dose: 3 patch Melatonin (Melatonin 3 Mg Tablet) 6 mg PO BEDTIME [facility] Last Admin: 10/11/24 20:56 Dose: 6 mg Methocarbamol (Methocarbamol 500 Mg Tab) 500 mg PO QID PRN PRN Reason: MUSCLE SPASMS Last Admin: 10/11/24 17:38 Dose: 500 mg Metoprolol Succinate (Metoprolol Xl 25 Mg Tab) 25 mg PO BID [facility] Last Admin: 10/12/24 08:04 Dose: 25 mg Pantoprazole Sodium (Pantoprazole 40mg Tablet) 40 mg PO BID [facility]; Protocol Last Admin: 10/12/24 08:03 Dose: 40 mg Prednisone (Prednisone 20 Mg Tab) 20 mg PO BID [facility] Last Admin: 10/12/24 08:04 Dose: 20 mg Microbiology Results 10/10/24 12:28 Blood - Blood Aerobic Blood Culture - Preliminary No growth in 24 hours. 10/10/24 12:28 Blood - Blood Anaerobic Blood Culture - Preliminary No growth in 24 hours. 10/10/24 12:34 Blood - Blood Aerobic Blood Culture - Preliminary No growth in 24 hours. 10/10/24 12:34 Blood - Blood Anaerobic Blood Culture - Preliminary No growth in 24 hours. 10/10/24 13:31 Body Fluid - Right Knee Gram Stain - Final 10/10/24 13:31 Body Fluid - Right Knee Culture & Sensitivity - Preliminary No growth. Assessment/ Plan: Nephrology Progress Note No Dyspnea No Chest Pain No Acute Events Overnight Vital Signs, Medications, Blood Work, and Imaging reviewed in the chart NAD. NCAT. MMM. Neck Supple. Normal Respiratory Effort. RRR. Abd ND. No C/C. LE Edema. No Rash. AAO. Normal Speech. Assessment & Plan ESRD on HD TTS -HD TIW -Acute HD today due to hypervolemia Hyponatremia Hyperkalemia -HD TIW HTN with CKD/ CHF -Continue Metoprolol Systolic CHF, A/C Cardiomyopathy -Low sodium diet -UF with HD -Continue Bumex -Acute HD today due to hypervolemia Hypoalbuminemia -Start Nepro Anemia in CKD -Retacrit qHD CKD MBD Secondary HyperParathyroidism -Continue Ergo -Start Renvela Hospitalist note reviewed
[2024-10-12 11:27] LABS: Absolute Lymphocytes (CBC) 0.1 K/uL (0.7-4.9); Absolute Monocytes 0.5 K/uL (0.1-1.3); Absolute Neutrophil 6.1 K/uL (1.8-8.0); Basophils % 0.2 % (0-1.3); Hemoglobin 10.4 g/dL (13.6-17.9); MCH 30.7 pg (27.0-35.0); MCHC 33.5 g/dL (32.0-36.0); MCV 91.6 fL (80-100); MPV 9.7 fL (7.6-11.3); Neutrophils % 90.8 % (41.7-73.7); Nucleated Red Blood Cells % 0.2 % (0-0); Platelets 131 thou/uL (152-406); RBC Red Blood Cell Count 3.38 M/uL (4.33-5.43); Red Cell Distribution Width 17.5 % (12.1-15.2)
[2024-10-12 11:48] LABS: Anion Gap 16.6 mEq/L (5.0-15.0); Potassium 4.6 mEq/L (3.5-5.1)
--- NOTE | 2024-10-12 12:12 | EKG ---
Test Date: 2024-10-09 Test Time: 09:52:16 Director Of Neurology: GIOVANNA MEASUREMENT RESULTS: Intervals: Rate: 79 OH: 218 QRSD: 134 QT: 420 QTc: 481 [place]: P: 7 OH: 218 QRS: 22 T: 35 INTERPRETIVE STATEMENTS: Sinus rhythm with 1st degree AV block with occasional premature ventricular complexes Left bundle branch block Abnormal ECG Compared to ECG 08/29/2024 23:22:56 Left-axis deviation no longer present Electronically Signed On 10-12-24 12:10:46 [employer] by Ted Rangel
[2024-10-12] MEDS: SEVELAMER CARBONATE 800 MG TABLET PO SCH (13:30)
[2024-10-12] MEDS: COENZYME Q10- 200 MG CAP PO SCH (13:31)
[2024-10-12] MEDS: NEPRO SHAKE 237 ML CAN PO SCH (13:31)
[2024-10-12 14:47] VITALS: O2SAT 99
[2024-10-12] MEDS: EPOETIN ALFA 10,000 UNIT/ML VIAL IV SCH (19:00)
--- NOTE | 2024-10-13 07:37 | P.PN ---
Subjective Date of Service: 10/10/24 Nighttime nurse, Marie, called me saying patient was in severe pain all night and could not even move as he screamed whenever they moved him. Went to examine the patient and patient with polyarthropathy. 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 Patient screams out whenever he moves them quickly. Patient with fluid in the right knee with significant tenderness in bilateral knee. Patient's ankles are minimally tender. Patient has a history of rheumatoid arthritis as well as gout. Most likely polyarthropathy from gout flareup or less likely rheumatoid. Go ahead and give him a dose of IV steroids and start colchicine. Patient's pain is paralyzing and will treat aggressively. Patient does not have ursodiol or allopurinol as a home medication although he tells me that he has had gout for a long time. He will need outpatient follow-up with rheumatology. We should be able to get his pain under control and get him turned around over the next 12 hours with aggressive treatment. Plan for arthrocentesis of the right knee. Review of Systems 10-point ROS is otherwise unremarkable Physical Examination - Vital Signs Temperature: 98.3 F Blood Pressure: 117/77 Pulse: 76 Respirations: 16 Pulse Ox (%): 98 - Physical Exam General: Alert, In no apparent distress, Oriented x3 HEENT: Atraumatic, PERRLA, EOMI Neck: Supple, JVD not distended Respiratory: Clear to auscultation bilaterally, Normal air movement Cardiovascular: Regular rate/rhythm, Normal S1 S2, No murmurs Gastrointestinal: Normal bowel sounds, Soft and benign, Non-distended, No tenderness Musculoskeletal: Erythema, Tenderness, Warmth, Other (Polyarthropathy) Integumentary: No rashes Neurological: Normal tone, Sensation intact, Cranial nerves 3-12 intact, Abnormal gait, Abnormal strength Lymphatics: No axilla or inguinal lymphadenopathy - Studies Medications List Reviewed: Yes Assessment & Plan - Problems (Diagnosis) (1) Polyarthropathy Current Visit: Yes Status: Acute (2) ESRD (end stage renal disease) Current Visit: Yes Status: Acute (3) Atrial fibrillation Current Visit: No Status: Acute (4) Chronic systolic heart failure Current Visit: No Status: Chronic (5) HTN (hypertension) Current Visit: No Status: Chronic Qualifiers: Hypertension type: primary hypertension Qualified Code(s): I10 - Essential (primary) hypertension (6) History of gout Current Visit: No Status: Chronic (7) Fluid overload Current Visit: Yes Status: Acute - Plan Plan: 1. Patient with fluid overload; patient missed hemodialysis after discharging. He was post to go to hemodialysis clinic but he did not make it. He comes in fluid overloaded. Hemodialysis scheduled per nephrology 2. Patient with polyarthropathy; diffuse pain and with right joint effusion; will do arthrocentesis later today 3. History of A-fib; continue with medication for rate control 4. History of hypertension; resume antihypertensives 5. Peripheral neuropathy; continue with medication for pain 6. GI DVT prophylaxis Discharge Plan: Care Home Plan to discharge in: Greater than 2 days - Advance Directives Does patient have a Living Will: No Does patient have a Durable POA for Healthcare: No - Code Status/Comfort Care Code Status Assessed: Yes Code Status: Full Code Critical Care: No Time Spent Managing PTS Care (In Minutes): 35
--- NOTE | 2024-10-13 07:39 | P.PN ---
Date of Service: 10/11/24 Subjective Patient continues to improve. Clinical symptoms are much better.Fever has resolved. Patient most likely with polyarthropathy from either rheumatoid arthritis or gout. The viscous fluid was more consistent with gouty arthropathy than rheumatoid arthritis. Labs been sent off.It appears to be inflammatory arthropathy. Physical Examination - Vital Signs Reviewed - Physical Exam General: Alert, In no apparent distress, Oriented x3 Respiratory: Clear to auscultation bilaterally, Normal air movement Cardiovascular: Regular rate/rhythm, Normal S1 S2, No murmurs Gastrointestinal: Normal bowel sounds, Soft and benign, Non-distended, No tenderness Musculoskeletal: Tenderness has improved in the joints; less warm Neurological: Normal tone, Sensation intact, Cranial nerves 3-12 intact, Abnormal gait, Abnormal strength Assessment & Plan - Problems (Diagnosis) (1) Polyarthropathy Current Visit: Yes Status: Acute (2) ESRD (end stage renal disease) Current Visit: Yes Status: Acute (3) Atrial fibrillation Current Visit: No Status: Acute (4) Chronic systolic heart failure Current Visit: No Status: Chronic (5) HTN (hypertension) Current Visit: No Status: Chronic Qualifiers: Hypertension type: primary hypertension Qualified Code(s): I10 - Essential (primary) hypertension (6) History of gout Current Visit: No Status: Chronic (7) Fluid overload Current Visit: Yes Status: Acute - Plan Continue with plan of care as mentioned below: 1. Patient with fluid overload; patient missed hemodialysis after discharging. He was post to go to hemodialysis clinic but he did not make it. He comes in fluid overloaded. Hemodialysis scheduled per nephrology 2. Patient with polyarthropathy; diffuse pain and with right joint effusion; Status post arthrocentesis with fluid consistent with inflammatory arthropathy. 3. History of A-fib; continue with medication for rate control 4. History of hypertension; resume antihypertensives 5. Peripheral neuropathy; continue with medication for pain 6. GI DVT prophylaxis Discharge Plan: Skilled Nursing Plan to discharge in: Greater than 2 days - Advance Directives Does patient have a Living Will: No Does patient have a Durable POA for Healthcare: No - Code Status/Comfort Care Code Status Assessed: Yes Code Status: Full Code Critical Care: No Time Spent Managing PTS Care (In Minutes): 35
--- NOTE | 2024-10-13 07:42 | P.PN ---
Date of Service: 10/12/24 Subjective Was able to get patient out of bed and ambulating today. Patient did fairly well although his gait was a little unsteady. Still having a little bit of pain but it is much improved. Physical therapy consulted and patient wants to go to [facility] facility. Physical Examination - Vital Signs Reviewed - Physical Exam General: Alert, In no apparent distress, Oriented x3 Respiratory: Clear to auscultation bilaterally, Normal air movement Cardiovascular: Regular rate/rhythm, Normal S1 S2, No murmurs Gastrointestinal: Normal bowel sounds, Soft and benign, Non-distended, No tenderness Musculoskeletal: Tenderness has improved in the joints; less warm Neurological: Abnormal gait, Abnormal strength Assessment & Plan - Problems (Diagnosis) (1) Polyarthropathy Current Visit: Yes Status: Acute (2) ESRD (end stage renal disease) Current Visit: Yes Status: Acute (3) Atrial fibrillation Current Visit: No Status: Acute (4) Chronic systolic heart failure Current Visit: No Status: Chronic (5) HTN (hypertension) Current Visit: No Status: Chronic Qualifiers: Hypertension type: primary hypertension Qualified Code(s): I10 - Essential (primary) hypertension (6) History of gout Current Visit: No Status: Chronic (7) Fluid overload Current Visit: Yes Status: Acute - Plan Continue with plan of care as mentioned below: 1. Patient with fluid overload; patient missed hemodialysis after discharging. He was post to go to hemodialysis clinic but he did not make it. He comes in fluid overloaded. Hemodialysis scheduled per nephrology 2. Patient with polyarthropathy; diffuse pain and with right joint effusion- this has improved significantly; Status post arthrocentesis with fluid consistent with inflammatory arthropathy. 3. History of A-fib; continue with medication for rate control 4. History of hypertension; resume antihypertensives 5. Peripheral neuropathy; continue with medication for pain 6. GI DVT prophylaxis Discharge Plan: [facility] Plan to discharge in: Greater than 2 days - Advance Directives Does patient have a Living Will: No Does patient have a Durable POA for Healthcare: No - Code Status/Comfort Care Code Status Assessed: Yes Code Status: Full Code Critical Care: No Time Spent Managing PTS Care (In Minutes): 35
[2024-10-13] MEDS: MULTIVITAMINS,THERAPEUT 1 TAB PO SCH (09:00)
--- NOTE | 2024-10-13 13:24 | P.PN ---
Date of Service: 10/13/24 Subjective: Feeling much better Breathing is improved, muscle aches/joint pain improved No acute events overnight ROS: 10 point ROS as noted above, otherwise negative Physical exam GEN: Alert, oriented, NAD HEENT: Normal conjunctiva, sclera anicteric CV: Regular rate and rhythm, no edema Pulm: Nonlabored respirations on room air ABD: Soft, nontender, nondistended MSK: No joint tenderness Integumentary: No rashes Neuro: Normal speech, normal affect Vitals reviewed Assessment Acute on chronic systolic congestive heart failure ESRD on HD with volume overload History of atrial fibrillation Hypertension History of gout Peripheral neuropathy/polyarthropathy Plan Acute on chronic systolic congestive heart failure ESRD on HD with volume overload Volume management with HD Symptoms improving Pending SNF/PT History of atrial fibrillation Currently in sinus rhythm Also has a history of a mural thrombus Unclear if he is on chronic anticoagulation Query pharmacy discussed further with patient Hypertension History of gout Peripheral neuropathy/polyarthropathy Continue home medications VTE: Heparin subcu Code: Full Dispo: 1 to 2 days SNF Time Spent Managing Pts Care (In Minutes): 35
--- NOTE | 2024-10-13 19:30 | P.PN ---
Date of Service: 10/13/24 Vital Signs Temp Pulse Resp BP Pulse Ox 97.4 F 71 16 119/86 100 10/13/24 16:00 10/13/24 16:00 10/13/24 16:00 10/13/24 16:00 10/13/24 16:00 Medications Acetaminophen (Acetaminophen 325 Mg Tablet) 650 mg PO Q4HP PRN PRN Reason: Temp >100F or mild pain Allopurinol (Allopurinol 100 Mg Tab) 100 mg PO DAILY [facility] Last Admin: 10/13/24 09:02 Dose: 100 mg Amiodarone HCl (Amiodarone Hcl 200 Mg Tab) 200 mg PO DAILY [facility] Last Admin: 10/13/24 09:02 Dose: 200 mg Apixaban (Apixaban 2.5 Mg Tablet) 2.5 mg PO BID [facility] Aspirin (Aspirin 81 Mg Chewable Tablet) 81 mg PO DAILY [facility] Last Admin: 10/13/24 09:01 Dose: 81 mg Atorvastatin Calcium (Atorvastatin 40 Mg Tab) 40 mg PO BEDTIME [facility] Last Admin: 10/12/24 20:50 Dose: 40 mg Bumetanide (Bumetanide 1 Mg Tablet) 2 mg PO BID [facility] Last Admin: 10/13/24 09:00 Dose: 2 mg Coenzyme Q10 (Coenzyme Q10- 200 Mg Cap) 200 mg PO DAILY [facility] Last Admin: 10/13/24 09:01 Dose: 200 mg Enteral Nutritional Formula (Nepro Shake 237 Ml Can) 240 ml PO TID [facility] Last Admin: 10/13/24 13:11 Dose: 237 ml Epoetin Yfn (Epoetin Yfn 10,000 Unit/Ml Vial) 10,000 unit IV EVERY HD [facility] Last Admin: 10/13/24 17:30 Dose: 10,000 unit Ergocalciferol (Drisdol (Vitamin D=Ergocalciferol) 22522 Unit Cap) 50,000 unit PO Q7D [facility] Folic Acid (Folic Acid 1 Mg Tablet) 1 mg PO DAILY [facility] Last Admin: 10/13/24 09:00 Dose: 1 mg Heparin Sodium (Porcine) (Heparin 1,000 Unit/Ml Vial) 6,000 unit IV EVERY HD PRN PRN Reason: FOR DIALYSIS CATHETER CARE Last Admin: 10/13/24 18:30 Dose: 6,000 unit Hydromorphone HCl (Hydromorphone Hcl 2 Mg/Ml Inj) 2 mg IV Q6H PRN PRN Reason: Pain scale 8-10 (Severe) Last Admin: 10/13/24 15:06 Dose: 2 mg Albumin Human (Albumin 25%) 50 mls @ 100 mls/hr IV EVERY HD [facility] Lidocaine (Lidocaine 4% Patch) 3 patch TOP DAILY [facility] Last Admin: 10/13/24 09:02 Dose: 3 patch Mannitol (Mannitol 25% 12.5 Gm/50 Ml Vial) 12.5 gm IV EVERY HD PRN PRN Reason: Titrate to SBP (MUST DEFINE) Melatonin (Melatonin 3 Mg Tablet) 6 mg PO BEDTIME [facility] Last Admin: 10/12/24 20:50 Dose: 6 mg Methocarbamol (Methocarbamol 500 Mg Tab) 500 mg PO QID PRN PRN Reason: MUSCLE SPASMS Last Admin: 10/12/24 20:50 Dose: 500 mg Metoprolol Succinate (Metoprolol Xl 25 Mg Tab) 25 mg PO BID [facility] Last Admin: 10/13/24 09:01 Dose: 25 mg Pantoprazole Sodium (Pantoprazole 40mg Tablet) 40 mg PO BID [facility]; Protocol Last Admin: 10/13/24 09:02 Dose: 40 mg Prednisone (Prednisone 20 Mg Tab) 20 mg PO BID [facility] Last Admin: 10/13/24 09:02 Dose: 20 mg Sevelamer Carbonate (Sevelamer Carbonate 800 Mg Tablet) 800 mg PO TIDWM [facility] Last Admin: 10/13/24 18:28 Dose: 800 mg Vitamin B Complex/Vit C/Folic Acid (Multivitamins,Therapeut 1 Tab) 1 tab PO DAILY [facility] Last Admin: 10/13/24 09:00 Dose: 1 tab Lab Results (last 24 hrs) 10/09/24 09:09: Urine Color Cancelled, Urine Clarity Cancelled, Urine pH Cancelled, Ur Specific [place] Cancelled, Glucose (UA)(Auto) Cancelled, Urine Ketones Cancelled, Urine Blood Cancelled, Urine Nitrite Cancelled, Urine Bilirubin Cancelled, Urine Urobilinogen Cancelled, Ur Leukocyte Esterase Cancelled, Urine RBC Cancelled, Urine Red Cell Clumps Cancelled, Urine WBC Cancelled, Urine WBC Clumps Cancelled, Ur Squamous Epith Cells Cancelled, U Non-Squamous Epi Cells Cancelled, Ur Transition Epith Cell Cancelled, Ur Renal Epithelial Cell Cancelled, Calcium Carbonate Cryst Cancelled, Calcium Oxalate Crystal Cancelled, Leucine Crystals Cancelled, Cystine Crystals Cancelled, Uric Acid Crystals Cancelled, Triple Phos Crystals Cancelled, Tyrosine Crystals Cancelled, Unidentified Crystals Cancelled, Amorphous Crystals Cancelled, Urine Bacteria Cancelled, Hyaline Casts Cancelled, Granular Casts Cancelled, Waxy Casts Cancelled, RBC Casts Cancelled, WBC Casts Cancelled, Urine Mucus Cancelled, Urine Trichomonas Cancelled, Ur Yeast w Hyphae Cancelled, Urine Yeast (Budding) Cancelled, Urine Sperm Cancelled, Ur Oval Fat Bodies Cancelled, Ur Microscopic Review Cancelled, Urine Culture Reflexed Cancelled, Urine Total Protein Cancelled, Urine Ascorbic Acid Cancelled, Urine Fat Cancelled Microbiology Results 10/10/24 13:31 Body Fluid - Right Knee Gram Stain - Final 10/10/24 13:31 Body Fluid - Right Knee Culture & Sensitivity - Final No growth. 10/10/24 12:28 Blood - Blood Aerobic Blood Culture - Preliminary No growth in 24 hours. 10/10/24 12:28 Blood - Blood Anaerobic Blood Culture - Preliminary No growth in 24 hours. 10/10/24 12:34 Blood - Blood Aerobic Blood Culture - Preliminary No growth in 24 hours. 10/10/24 12:34 Blood - Blood Anaerobic Blood Culture - Preliminary No growth in 24 hours. Assessment/ Plan: Nephrology Progress Note No Dyspnea No Chest Pain No Acute Events Overnight Vital Signs, Medications, Blood Work, and Imaging reviewed in the chart NAD. NCAT. MMM. Neck Supple. Normal Respiratory Effort. RRR. Abd ND. No C/C. LE Edema 2+. No Rash. AAO. Normal Speech. Assessment & Plan ESRD on HD TTS -HD TIW -Seen and examined on HD today Hyponatremia Hyperkalemia -HD TIW HTN with CKD/ CHF -Continue Metoprolol Systolic CHF, A/C Cardiomyopathy -Low sodium diet -UF with HD -Continue Bumex Hypoalbuminemia -Continue Nepro Anemia in CKD -Retacrit qHD CKD MBD Secondary HyperParathyroidism -Continue Ergo -Continue Renvela Hospitalist note reviewed
[2024-10-13] MEDS: APIXABAN 2.5 MG TABLET PO SCH (20:52)
[2024-10-14 04:12] LABS: Renal Epithelial <5 /HPF (None Seen); Specific Gravity 1.017 (1.005-1.030); Sqamous Epithelial <5 /HPF (None Seen); Urine Bacteria <20 /HPF (<20); Urine Bilirubin NEGATIVE (Negative); Urine Blood Trace (Negative); Urine Clarity Turbid (Clear); Urine Color Yellow (Yellow); Urine Culture Reflex Order NOT NEEDED; Urine Glucose NEGATIVE (Negative); Urine Ketones NEGATIVE (Negative); Urine Microscopic Reflex YN ORDER UMIC; Urine Mucus Slight /HPF (None Seen); Urine Nitrite NEGATIVE (Negative); Urine Protein 2+ (Negative); Urine RBC <5 /HPF (None Seen); Urine Urobilinogen Normal (Normal); Urine WBC <5 /HPF (<5); Urine pH 5.5 (5.0-7.0)
[2024-10-14 05:44] LABS: Hematocrit 36.4 % (39.6-49.0); Hemoglobin 11.9 g/dL (13.6-17.9); MCH 30.1 pg (27.0-35.0); MCHC 32.7 g/dL (32.0-36.0); MPV 9.4 fL (7.6-11.3); Platelets 163 thou/uL (152-406); RBC Red Blood Cell Count 3.96 M/uL (4.33-5.43); Red Cell Distribution Width 17.2 % (12.1-15.2)
--- NOTE | 2024-10-14 14:21 | P.PN ---
Date of Service: 10/14/24 Subjective: Feeling much better Breathing is improved, muscle aches/joint pain improved No acute events overnight Working well with PT ROS: 10 point ROS as noted above, otherwise negative Physical exam GEN: Alert, oriented, NAD HEENT: Normal conjunctiva, sclera anicteric CV: Regular rate and rhythm, no edema Pulm: Nonlabored respirations on room air ABD: Soft, nontender, nondistended MSK: No joint tenderness Integumentary: No rashes Neuro: Normal speech, normal affect Vitals reviewed Assessment Acute on chronic systolic congestive heart failure ESRD on HD with volume overload History of atrial fibrillation Hypertension History of gout Peripheral neuropathy/polyarthropathy Plan Acute on chronic systolic congestive heart failure ESRD on HD with volume overload Volume management with HD Symptoms improving Pending SNF/PT History of atrial fibrillation Currently in sinus rhythm Also has a history of a mural thrombus Continue eliquis Hypertension History of gout Peripheral neuropathy/polyarthropathy Continue home medications VTE: eliquis Code: Full Dispo: 1 to 2 days SNF Time Spent Managing Pts Care (In Minutes): 35
--- NOTE | 2024-10-14 21:15 | P.PN ---
Date of Service: 10/14/24 Vital Signs Temp Pulse Resp BP Pulse Ox 97.8 F 72 16 108/65 97 10/14/24 16:00 10/14/24 16:00 10/14/24 16:00 10/14/24 16:00 10/14/24 16:00 Medications Acetaminophen (Acetaminophen 325 Mg Tablet) 650 mg PO Q4HP PRN PRN Reason: Temp >100F or mild pain Allopurinol (Allopurinol 100 Mg Tab) 100 mg PO DAILY [facility] Last Admin: 10/14/24 09:28 Dose: 100 mg Amiodarone HCl (Amiodarone Hcl 200 Mg Tab) 200 mg PO DAILY [facility] Last Admin: 10/14/24 09:28 Dose: 200 mg Apixaban (Apixaban 2.5 Mg Tablet) 2.5 mg PO BID [facility] Last Admin: 10/14/24 09:28 Dose: 2.5 mg Aspirin (Aspirin 81 Mg Chewable Tablet) 81 mg PO DAILY [facility] Last Admin: 10/14/24 09:28 Dose: 81 mg Atorvastatin Calcium (Atorvastatin 40 Mg Tab) 40 mg PO BEDTIME [facility] Last Admin: 10/13/24 20:52 Dose: 40 mg Bumetanide (Bumetanide 1 Mg Tablet) 2 mg PO BID [facility] Last Admin: 10/14/24 09:27 Dose: 2 mg Coenzyme Q10 (Coenzyme Q10- 200 Mg Cap) 200 mg PO DAILY [facility] Last Admin: 10/14/24 09:27 Dose: 200 mg Enteral Nutritional Formula (Nepro Shake 237 Ml Can) 240 ml PO TID [facility] Last Admin: 10/14/24 12:38 Dose: 237 ml Epoetin Yfn (Epoetin Yfn 10,000 Unit/Ml Vial) 10,000 unit IV EVERY HD [facility] Last Admin: 10/13/24 17:30 Dose: 10,000 unit Ergocalciferol (Drisdol (Vitamin D=Ergocalciferol) 28280 Unit Cap) 50,000 unit PO Q7D [facility] Folic Acid (Folic Acid 1 Mg Tablet) 1 mg PO DAILY [facility] Last Admin: 10/14/24 09:28 Dose: 1 mg Heparin Sodium (Porcine) (Heparin 1,000 Unit/Ml Vial) 6,000 unit IV EVERY HD PRN PRN Reason: FOR DIALYSIS CATHETER CARE Last Admin: 10/13/24 18:30 Dose: 6,000 unit Hydromorphone HCl (Hydromorphone Hcl 2 Mg/Ml Inj) 2 mg IV Q6H PRN PRN Reason: Pain scale 8-10 (Severe) Last Admin: 10/14/24 15:32 Dose: 2 mg Albumin Human (Albumin 25%) 50 mls @ 100 mls/hr IV EVERY HD [facility] Lidocaine (Lidocaine 4% Patch) 3 patch TOP DAILY [facility] Last Admin: 10/14/24 09:27 Dose: 3 patch Mannitol (Mannitol 25% 12.5 Gm/50 Ml Vial) 12.5 gm IV EVERY HD PRN PRN Reason: Titrate to SBP (MUST DEFINE) Melatonin (Melatonin 3 Mg Tablet) 6 mg PO BEDTIME [facility] Last Admin: 10/13/24 20:52 Dose: 6 mg Methocarbamol (Methocarbamol 500 Mg Tab) 500 mg PO QID PRN PRN Reason: MUSCLE SPASMS Last Admin: 10/12/24 20:50 Dose: 500 mg Metoprolol Succinate (Metoprolol Xl 25 Mg Tab) 25 mg PO BID [facility] Last Admin: 10/14/24 09:28 Dose: 25 mg Pantoprazole Sodium (Pantoprazole 40mg Tablet) 40 mg PO BID [facility]; Protocol Last Admin: 10/14/24 09:28 Dose: 40 mg Prednisone (Prednisone 20 Mg Tab) 20 mg PO BID [facility] Last Admin: 10/14/24 09:28 Dose: 20 mg Sevelamer Carbonate (Sevelamer Carbonate 800 Mg Tablet) 800 mg PO TIDWM [facility] Last Admin: 10/14/24 17:33 Dose: 800 mg Vitamin B Complex/Vit C/Folic Acid (Multivitamins,Therapeut 1 Tab) 1 tab PO DAILY [facility] Last Admin: 10/14/24 09:27 Dose: 1 tab Lab Results (last 24 hrs) 10/09/24 09:09: Urine Red Cell Clumps Behavioral Health Assistant, Urine WBC Clumps Behavioral Health Assistant, Ur Transition Epith Cell Behavioral Health Assistant, Calcium Carbonate Cryst Behavioral Health Assistant, Calcium Oxalate Crystal Behavioral Health Assistant, Leucine Crystals Behavioral Health Assistant, Cystine Crystals Behavioral Health Assistant, Uric Acid Crystals Behavioral Health Assistant, Triple Phos Crystals Behavioral Health Assistant, Tyrosine Crystals Behavioral Health Assistant, Unidentified Crystals Behavioral Health Assistant, Amorphous Crystals Behavioral Health Assistant, Granular Casts Behavioral Health Assistant, Waxy Casts Behavioral Health Assistant, RBC Casts Behavioral Health Assistant, WBC Casts Behavioral Health Assistant, Urine Trichomonas Behavioral Health Assistant, Ur Yeast w Hyphae Behavioral Health Assistant, Urine Yeast (Budding) Behavioral Health Assistant, Urine Sperm Behavioral Health Assistant, Ur Oval Fat Bodies Behavioral Health Assistant, Urine Ascorbic Acid Behavioral Health Assistant, Urine Fat Behavioral Health Assistant Microbiology Results 10/10/24 13:31 Body Fluid - Right Knee Gram Stain - Final 10/10/24 13:31 Body Fluid - Right Knee Culture & Sensitivity - Final No growth. 10/10/24 12:28 Blood - Blood Aerobic Blood Culture - Preliminary No growth in 24 hours. 10/10/24 12:28 Blood - Blood Anaerobic Blood Culture - Preliminary No growth in 24 hours. 10/10/24 12:34 Blood - Blood Aerobic Blood Culture - Preliminary No growth in 24 hours. 10/10/24 12:34 Blood - Blood Anaerobic Blood Culture - Preliminary No growth in 24 hours. Assessment/ Plan: Nephrology Progress Note Improving dyspnea No Chest Pain No Acute Events Overnight Vital Signs, Medications, Blood Work, and Imaging reviewed in the chart NAD. NCAT. MMM. Neck Supple. Normal Respiratory Effort. RRR. Abd ND. No C/C. LE Edema 1-2+. No Rash. AAO. Normal Speech. Assessment & Plan ESRD on HD TTS -HD TIW Hyponatremia Hyperkalemia -HD TIW HTN with CKD/ CHF -Continue Metoprolol Systolic CHF, A/C Cardiomyopathy -Low sodium diet -UF with HD -Continue Bumex Hypoalbuminemia -Continue Nepro Anemia in CKD -Retacrit qHD CKD MBD Secondary HyperParathyroidism -Continue Ergo -Continue Renvela Hospitalist note reviewed
[2024-10-15 04:47] LABS: Hematocrit 35.9 % (39.6-49.0); Hemoglobin 11.9 g/dL (13.6-17.9); MCH 30.4 pg (27.0-35.0); MCHC 33.3 g/dL (32.0-36.0); MCV 91.4 fL (80-100); MPV 9.9 fL (7.6-11.3); Platelets 155 thou/uL (152-406); RBC Red Blood Cell Count 3.93 M/uL (4.33-5.43)
[2024-10-15 05:11] LABS: Anion Gap 13.3 mEq/L (5.0-15.0); Potassium 4.3 mEq/L (3.5-5.1)
--- NOTE | 2024-10-15 10:21 | P.PN ---
Date of Service: 10/15/24 Vital Signs Temp Pulse Resp BP Pulse Ox 97.4 F 64 16 119/58 L 100 10/15/24 08:00 10/15/24 08:00 10/15/24 08:00 10/15/24 08:00 10/15/24 08:00 Medications Acetaminophen (Acetaminophen 325 Mg Tablet) 650 mg PO Q4HP PRN PRN Reason: Temp >100F or mild pain Allopurinol (Allopurinol 100 Mg Tab) 100 mg PO DAILY [facility] Last Admin: 10/15/24 09:21 Dose: 100 mg Amiodarone HCl (Amiodarone Hcl 200 Mg Tab) 200 mg PO DAILY [facility] Last Admin: 10/15/24 09:22 Dose: 200 mg Apixaban (Apixaban 2.5 Mg Tablet) 2.5 mg PO BID [facility] Last Admin: 10/15/24 09:22 Dose: 2.5 mg Aspirin (Aspirin 81 Mg Chewable Tablet) 81 mg PO DAILY [facility] Last Admin: 10/15/24 09:21 Dose: 81 mg Atorvastatin Calcium (Atorvastatin 40 Mg Tab) 40 mg PO BEDTIME [facility] Last Admin: 10/14/24 21:22 Dose: 40 mg Bumetanide (Bumetanide 1 Mg Tablet) 2 mg PO BID [facility] Last Admin: 10/15/24 09:30 Dose: 2 mg Coenzyme Q10 (Coenzyme Q10- 200 Mg Cap) 200 mg PO DAILY [facility] Last Admin: 10/15/24 09:30 Dose: 200 mg Enteral Nutritional Formula (Nepro Shake 237 Ml Can) 240 ml PO TID [facility] Last Admin: 10/15/24 09:00 Dose: Not Given Epoetin Yfn (Epoetin Yfn 10,000 Unit/Ml Vial) 10,000 unit IV EVERY HD [facility] Last Admin: 10/13/24 17:30 Dose: 10,000 unit Ergocalciferol (Drisdol (Vitamin D=Ergocalciferol) 72818 Unit Cap) 50,000 unit PO Q7D [facility] Folic Acid (Folic Acid 1 Mg Tablet) 1 mg PO DAILY [facility] Last Admin: 10/15/24 09:21 Dose: 1 mg Heparin Sodium (Porcine) (Heparin 1,000 Unit/Ml Vial) 6,000 unit IV EVERY HD PRN PRN Reason: FOR DIALYSIS CATHETER CARE Last Admin: 10/13/24 18:30 Dose: 6,000 unit Hydromorphone HCl (Hydromorphone Hcl 2 Mg/Ml Inj) 2 mg IV Q6H PRN PRN Reason: Pain scale 8-10 (Severe) Last Admin: 10/15/24 09:21 Dose: 2 mg Albumin Human (Albumin 25%) 50 mls @ 100 mls/hr IV EVERY HD [facility] Lidocaine (Lidocaine 4% Patch) 3 patch TOP DAILY [facility] Last Admin: 10/15/24 09:32 Dose: 3 patch Mannitol (Mannitol 25% 12.5 Gm/50 Ml Vial) 12.5 gm IV EVERY HD PRN PRN Reason: Titrate to SBP (MUST DEFINE) Melatonin (Melatonin 3 Mg Tablet) 6 mg PO BEDTIME [facility] Last Admin: 10/14/24 21:23 Dose: 6 mg Methocarbamol (Methocarbamol 500 Mg Tab) 500 mg PO QID PRN PRN Reason: MUSCLE SPASMS Last Admin: 10/12/24 20:50 Dose: 500 mg Metoprolol Succinate (Metoprolol Xl 25 Mg Tab) 25 mg PO BID [facility] Last Admin: 10/15/24 09:30 Dose: 25 mg Pantoprazole Sodium (Pantoprazole 40mg Tablet) 40 mg PO BID [facility]; Protocol Last Admin: 10/15/24 09:22 Dose: 40 mg Prednisone (Prednisone 20 Mg Tab) 20 mg PO BID [facility] Last Admin: 10/15/24 09:21 Dose: 20 mg Sevelamer Carbonate (Sevelamer Carbonate 800 Mg Tablet) 800 mg PO TIDWM [facility] Last Admin: 10/15/24 09:21 Dose: 800 mg Vitamin B Complex/Vit C/Folic Acid (Multivitamins,Therapeut 1 Tab) 1 tab PO DAILY [facility] Last Admin: 10/15/24 09:30 Dose: 1 tab Microbiology Results 10/10/24 13:31 Body Fluid - Right Knee Gram Stain - Final 10/10/24 13:31 Body Fluid - Right Knee Culture & Sensitivity - Final No growth. 10/10/24 12:28 Blood - Blood Aerobic Blood Culture - Preliminary No growth in 24 hours. 10/10/24 12:28 Blood - Blood Anaerobic Blood Culture - Preliminary No growth in 24 hours. 10/10/24 12:34 Blood - Blood Aerobic Blood Culture - Preliminary No growth in 24 hours. 10/10/24 12:34 Blood - Blood Anaerobic Blood Culture - Preliminary No growth in 24 hours. Assessment/ Plan: Nephrology Progress Note Improving dyspnea No Chest Pain Feeling better overall; ambulating No Acute Events Overnight Vital Signs, Medications, Blood Work, and Imaging reviewed in the chart NAD. NCAT. MMM. Neck Supple. Normal Respiratory Effort. RRR. Abd ND. No C/C. LE Edema 1-2+. No Rash. AAO. Normal Speech. Assessment & Plan ESRD on HD TTS -HD TIW -Acute HD today Hyponatremia Hyperkalemia -HD TIW HTN with CKD/ CHF -Continue Metoprolol Systolic CHF, A/C Cardiomyopathy -Low sodium diet -UF with HD -Continue Bumex Hypoalbuminemia -Continue Nepro Anemia in CKD -Retacrit qHD CKD MBD Secondary HyperParathyroidism -Continue Ergo -Continue Renvela Hospitalist note reviewed Case reviewed with Dr. Jha
[2024-10-15] MEDS: DRISDOL (VITAMIN D=ERGOCALCIFEROL) 50000 UNIT CAP PO SCH (11:50)
[2024-10-15 19:28] LABS: TOTAL PROTEIN, SYNOVIAL FLUID 3.2 g/dL (1.0-3.0)
[2024-10-16] MEDS: HYDROMORPHONE HCL 2 MG/ML inj IV ONE (02:35)
[2024-10-16 08:47] VITALS: BP 142/85; TEMP 97.5
[2024-10-16] MEDS: HYDROMORPHONE HCL 0.5 MG/0.5 ML INJ IV PRN (09:28)
--- NOTE | 2024-10-16 13:53 | P.DS ---
Admission Date: 10/11/24 Discharge Date: 10/16/24 Disposition: DC HOME/HOME HEALTH CARE Discharge Condition: GOOD Reason for Admission: Fluid volume overload secondary to missed dialysis Brief History of Present Illness: Natan Paulino is a 64-year-old male with past medical history of Atrial fibrillation, CHF, Gout, Hypertension, Myocardial infarction, osteoarthritis, Pancreatitis, Rheumatoid Arthritis, stroke/TIA, ESRD on dialysis who presents to the ED with complaints of missing dialysis. He was discharged on 10/08/2024 after dialysis on 10/07/2024 taking 2700 mL of fluid off. He was set to go to a 1030 dialysis at [facility] on 10/08/2024, day of discharge. He did not make it in time and has been 1 day without dialysis. Reports regular dialysis days are Saturday, , and Saturday. Laboratory evaluation hemoglobin 9.9/30.4, platelets 122, BUN/creatinine 69/7.31, GFR 8, troponin [address] head and C-spine reports "The vertebral bodies demonstrate normal height and alignment. No evidence of acute fracture or subluxation.. Moderate disc thinning with posterior osteophyte seen lower cervical levels. No prevertebral soft tissue swelling is seen. The posterior facets are well aligned. Normal alignment of the skull base with the cervical spine is seen. " CT chest abdomen pelvis reports "Cardiomegaly with small pericardial effusion and mild interstitial pulmonary edema suspected. Mild liver cirrhosis. Left- sided subpectoral fluid density collection has moderately decreased since the comparative study. " Chest x-ray reports "Mild interstitial pulmonary edema. The heart is moderately enlarged. No displaced fractures identified. Right-sided venous catheters tip in SVC." Natan will be admitted to hospitalist service for dialysis, Dr. Rossi consulted. Hospital Course: Assessment Acute on chronic systolic congestive heart failure ESRD on HD with volume overload History of atrial fibrillation Hypertension History of gout Peripheral neuropathy/polyarthropathy Patient was admitted to the hospital initially for volume overload, hyperkalemia. During his hospitalization he developed significant joint pain, he underwent arthrocentesis the fluid was consistent with inflammatory arthropathy. Pain continued to significantly improve, he underwent acute HD throughout his hospitalization. He was quite weak and we were pending chcf but while working with gained a significant of strength and is now stable for discharge home with home health and physical therapy. He should follow-up with his primary care doctor in 1 to 2 weeks, he should continue with outpatient dialysis as previously scheduled. Continue taking your home medications as previously prescribed including your Eliquis 2.5 mg twice daily. Vital Signs/Physical Exam: Temp Pulse Resp BP Pulse Ox 97.5 F 70 16 142/85 H 95 10/16/24 08:00 10/16/24 08:00 10/16/24 08:00 10/16/24 08:00 10/16/24 08:00 General: Alert, In no apparent distress, Oriented x3 HEENT: Atraumatic, PERRLA Neck: Supple, JVD not distended Respiratory: Clear to auscultation bilaterally, Normal air movement Cardiovascular: Regular rate/rhythm, Normal S1 S2 Gastrointestinal: Normal bowel sounds, No tenderness Musculoskeletal: No tenderness Integumentary: No rashes Neurological: Normal speech, Normal affect Laboratory Data at Discharge: WBC 8.40 thou/uL (4.3-10.9) 10/15/24 04:24 Hgb 11.9 g/dL (13.6-17.9) L 10/15/24 04:24 Hct 35.9 % (39.6-49.0) L 10/15/24 04:24 Plt Count 155 thou/uL (152-406) 10/15/24 04:24 PT 12.9 SECONDS (9.4-12.5) H 10/09/24 10:16 INR 1.23 10/09/24 10:16 Sodium 133 mEq/L (136-145) L 10/15/24 04:24 Potassium 4.3 mEq/L (3.5-5.1) 10/15/24 04:24 BUN 75 mg/dL (7-18) H 10/15/24 04:24 Creatinine 5.99 mg/dL (0.70-1.30) H 10/15/24 04:24 Glucose 189 mg/dL (74-106) H 10/15/24 04:24 Phosphorus 5.8 mg/dL (2.5-4.9) H 10/10/24 04:31 Magnesium 2.3 mg/dL (1.6-2.4) 10/10/24 04:31 Total Bilirubin 1.2 mg/dL (0.2-1.0) H 10/09/24 10:16 AST 14 U/L (15-37) L 10/09/24 10:16 ALT 18 U/L (16-61) 10/09/24 10:16 Alkaline Phosphatase 120 U/L (45-117) H 10/09/24 10:16 Lipase 21 U/L (13-75) 10/09/24 10:16 Home Medications: Amiodarone HCl [Cordarone*] 200 mg PO DAILY 07/27/24 Aspirin Chewable [Aspirin Chewable*] 81 mg PO DAILY 07/27/24 Atorvastatin Calcium [Lipitor] 40 mg PO BEDTIME 07/27/24 Bumetanide [Bumex] 2 g PO BID 07/27/24 Folic Acid 1 mg PO DAILY 07/27/24 Melatonin [Melatonin*] 6 mg PO BEDTIME 07/27/24 Metoprolol Succinate [Toprol Xl*] 1 tab PO BID 07/27/24 Pantoprazole [Protonix Tab*] 40 mg PO BID 07/27/24 Sacubitril/Valsartan [Entresto 97 mg-103 mg Tablet] 1 tab PO BID 07/27/24 Vitamin D [Drisdol*] 50,000 unit PO Q7D 07/27/24 Lidocaine 4% Patch [Lidoderm 5% Patch*] 3 patch TOP DAILY #90 pat 10/08/24 methocarbamoL [Robaxin*] 500 mg PO QID PRN #30 tab 10/08/24 Apixaban [Eliquis *] 2.5 mg PO BID 10/16/24 Physician Discharge Instructions: Patient was admitted to the hospital initially for volume overload, hyperkalemia. During his hospitalization he developed significant joint pain, he underwent arthrocentesis the fluid was consistent with inflammatory arthropathy. Pain continued to significantly improve, he underwent acute HD throughout his hospitalization. He was quite weak and we were pending chcf but while working with gained a significant of strength and is now stable for discharge home with home health and physical therapy. He should follow-up with his primary care doctor in 1 to 2 weeks, he should continue with outpatient dialysis as previously scheduled. Continue taking your home medications as previously prescribed including your Eliquis 2.5 mg twice daily. Diet: Renal Activity: Fall precautions Followup: Leonardo Rossi DO [ACTIVE - CAN ADMIT] - 2-3 Days NONE,NONE [Primary Care Provider] - Anton Hayes DO [ACTIVE - CAN ADMIT] - 1-2 Weeks Time spent managing pt's care (in minutes): 45
--- NOTE | 2024-10-16 21:02 | P.PN ---
Date of Service: 10/16/24 Vital Signs Temp Pulse Resp BP Pulse Ox 97.5 F 70 16 142/85 H 95 10/16/24 08:00 10/16/24 08:00 10/16/24 08:00 10/16/24 08:00 10/16/24 08:00 Lab Results (last 24 hrs) 10/10/24 13:31: Synovial Glucose 216, Synovial Uric Acid 6.2 Microbiology Results 10/10/24 12:28 Blood - Blood Aerobic Blood Culture - Final No growth in 5 days. 10/10/24 12:28 Blood - Blood Anaerobic Blood Culture - Final No growth in 5 days. 10/10/24 12:34 Blood - Blood Aerobic Blood Culture - Final No growth in 5 days. 10/10/24 12:34 Blood - Blood Anaerobic Blood Culture - Final No growth in 5 days. 10/10/24 13:31 Body Fluid - Right Knee Gram Stain - Final 10/10/24 13:31 Body Fluid - Right Knee Culture & Sensitivity - Final No growth. Assessment/ Plan: Nephrology Progress Note Improving dyspnea Persistent edema No Chest Pain Feeling better overall; ambulating No Acute Events Overnight Vital Signs, Medications, Blood Work, and Imaging reviewed in the chart NAD. NCAT. MMM. Neck Supple. Normal Respiratory Effort. RRR. Abd ND. No C/C. LE Edema 2+. No Rash. AAO. Normal Speech. Assessment & Plan ESRD on HD TTS -HD TIW -Acute UF today Hyponatremia Hyperkalemia -HD TIW HTN with CKD/ CHF -Continue Metoprolol Systolic CHF, A/C Cardiomyopathy -Low sodium diet -UF today -Continue Bumex Hypoalbuminemia -Continue Nepro Anemia in CKD -Retacrit qHD CKD MBD Secondary HyperParathyroidism -Continue Ergo -[facility] Hospitalist note reviewed Case reviewed with Dr. Jha
== END 2024-10-16 15:40 | disposition home health service (06) | DRG 280 ==
LOC: ER 08:18 → ERHOLD 12:52 → 2ND 13:57 → OBSVTOIN 10-11 08:34
PROVIDERS: ADMIT Hospitalist; ATTEND Hospitalist
PROC: 5A1D70Z Performance of Urinary Filtration, Intermittent, Less than 6 Hours Per Day (ICD-10-PCS; 2024-10-09)
PROC: 0S9C3ZZ Drainage of Right Knee Joint, Percutaneous Approach (ICD-10-PCS; principal; 2024-10-10)
DX: I13.2 Hypertensive heart and chronic kidney disease with heart failure and with stage 5 chronic kidney disease, or end stage renal disease (principal); I50.23 Acute on chronic systolic (congestive) heart failure; I21.4 Non-ST elevation (NSTEMI) myocardial infarction; N18.6 End stage renal disease; K86.1 Other chronic pancreatitis; N25.81 Secondary hyperparathyroidism of renal origin; E87.1 Hypo-osmolality and hyponatremia; E87.70 Fluid overload, unspecified; I42.0 Dilated cardiomyopathy; E87.5 Hyperkalemia; M25.461 Effusion, right knee; M06.4 Inflammatory polyarthropathy; M06.9 Rheumatoid arthritis, unspecified; E11.22 Type 2 diabetes mellitus with diabetic chronic kidney disease; E11.42 Type 2 diabetes mellitus with diabetic polyneuropathy; D63.1 Anemia in chronic kidney disease; M10.9 Gout, unspecified; I48.0 Paroxysmal atrial fibrillation; E66.9 Obesity, unspecified; K21.9 Gastro-esophageal reflux disease without esophagitis; I25.2 Old myocardial infarction; E88.09 Other disorders of plasma-protein metabolism, not elsewhere classified; I27.22 Pulmonary hypertension due to left heart disease; I25.10 Atherosclerotic heart disease of native coronary artery without angina pectoris; R79.89 Other specified abnormal findings of blood chemistry; Z88.0 Allergy status to penicillin; Z99.2 Dependence on renal dialysis; Z95.5 Presence of coronary angioplasty implant and graft; Z79.82 Long term (current) use of aspirin; Z11.52 Encounter for screening for COVID-19; Z68.24 Body mass index [BMI] 24.0-24.9, adult; Z79.01 Long term (current) use of anticoagulants; Z79.52 Long term (current) use of systemic steroids; Z86.73 Personal history of transient ischemic attack (TIA), and cerebral infarction without residual deficits; Z79.899 Other long term (current) drug therapy; Z91.158 Patient's noncompliance with renal dialysis for other reason
CPT/HCPCS: 36415; 70450; 71045; 71250; 72125; 74176; 80048; 80076; 81001; 82042; 82945; 83690; 83735; 83880; 84100; 84157; 84484; 84560; 85025; 85027; 85610; 87040; 87070; 87428; 89050; 89060; 90935; 93005; 96374; 96375; 97116; 97161; 97530; 99285; G0378; J1171; J1644; J2003; J2919; J3010; J3301; J7512

== ENCOUNTER 2024-11-04 08:04 | Inpatient (IN) | payer OTHER ==
[2024-11-04] MEDS ORDERED: HYDROCODONE/APAP 5/325 MG TAB ONE ×2 (08:26→14:07)
[2024-11-04 08:49] LABS: Absolute Eosinophils 0.1 K/uL (0-0.5); Absolute Lymphocytes (CBC) 0.7 K/uL (0.7-4.9); Absolute Monocytes 0.7 K/uL (0.1-1.3); Absolute Neutrophil 3.6 K/uL (1.8-8.0); Basophils % 0.9 % (0-1.3); Eosinophils % 1.4 % (0-4.4); Hematocrit 29.2 % (39.6-49.0); Hemoglobin 9.9 g/dL (13.6-17.9); Lymphocytes % 14.1 % (15.3-44.8); MCH 30.4 pg (27.0-35.0); MCHC 33.8 g/dL (32.0-36.0); MCV 89.9 fL (80-100); MPV 9.8 fL (7.6-11.3); Monocytes % 13.8 % (3.3-12.3); Neutrophils % 69.8 % (41.7-73.7); Nucleated Red Blood Cells % 0.1 % (0-0); Platelets 147 thou/uL (152-406); RBC Red Blood Cell Count 3.25 M/uL (4.33-5.43); Red Cell Distribution Width 17.7 % (12.1-15.2)
[2024-11-04 08:58] LABS: Protime INR 1.33
--- NOTE | 2024-11-04 09:19 | RAD REPORT ---
EXAMINATION: ONE VIEW CHEST XR CLINICAL INDICATION: SOB TECHNIQUE: Frontal chest projection is submitted. Examination is limited by patient positioning and t echnique. COMPARISON: 10/09/2024 FINDINGS: Mild interstitial pulmonary edema. The heart is moderately enlarged in size. No displaced fractures i dentified. Right-sided venous catheters tip in SVC. IMPRESSION: Mild CHF versus volume overload.
--- NOTE | 2024-11-04 09:21 | RAD REPORT ---
EXAMINATION: XR LEFT KNEE CLINICAL INDICATION: PAIN TECHNIQUE: Multiple projections of the left knee were obtained. COMPARISON: 07/06/2020 FINDINGS: Tricompartmental degenerative changes are present with mild meniscal chondrocalcinosis. Po pliteal atherosclerosis is noted. Mild sclerotic appearance is seen to the proximal tibia and fibula. No acute fracture or dislocation.
[2024-11-04 09:27] LABS: Albumin/Globulin Ratio 0.8 (1.1-1.8); Anion Gap 15.1 mEq/L (5.0-15.0); Bilirubin Direct 0.6 mg/dL (0-0.2); Bilirubin Indirect, Calculated 0.7 mg/dL (0.2-0.8); Bilirubin Total 1.3 mg/dL (0.2-1.0); Potassium 4.1 mEq/L (3.5-5.1)
[2024-11-04 09:29] LABS: Troponin High Sensitivity 1029.6 pg/mL (<58.9)
[2024-11-04] MEDS ORDERED: HEPARIN/D5W 25,000 UNIT/500 ML BAG IV ONE (09:45)
[2024-11-04] MEDS ORDERED: ASPIRIN 81 MG CHEWABLE TABLET ONE (09:45)
[2024-11-04] MEDS ORDERED: HEPARIN 5000 UNIT/ML 1 ML VIAL ONE (09:45)
--- NOTE | 2024-11-04 09:47 | EDPHYS ---
Physician Documentation [facility] Name: Natan Paulino Age: 64 yrs Sex: Male : 1960 Arrival Date: 11/04/2024 Time: 08:04 Bed 5 Private MD: ED Physician Cy Nichols HPI: 11/04 08:21 This 64 yrs old Black Male presents to ER via Unassigned with complaints of Knee Pain, ms3 Shortness Of Breath, Palpitations. 08:21 64-year-old male with past medical history of hypertension, congestive heart failure, ms3 end-stage renal disease presents to the emergency department for palpitations and left knee pain that been ongoing for 2 days. Patient states that shortness of breath is worse with walking. Patient states the knee pain is better after taking Tylenol. He denies fevers, chills, cough. Patient notes his bioinformatics support specialist is Dr. Flo patrick and he has dialysis on Saturday, , Saturday and his last dialysis was yesterday.. Historical: - Allergies: 08:26 PENICILLINS; iw - PMHx: 08:26 Atrial fibrillation; CHF; Gout; Hypertension; kidney disease; Myocardial infarction; iw osteoarthritis; Pancreatitis; Rheumatoid Arthritis; stroke; TIA; - PSHx: 08:26 heart stent; finger; Stented artery; iw - Immunization history:: Adult Immunizations up to date. - Infectious Disease History:: Denies. - Social history:: Smoking status: unknown. ROS: 08:21 Constitutional: Negative for fever, and chills. Abdomen/GI: Negative for abdominal ms3 pain, nausea, vomiting, diarrhea, and constipation, MS/Extremity: Negative for injury and deformity, Skin: Negative for injury, rash, and discoloration, 08:21 Cardiovascular: Positive for palpitations, 08:21 Respiratory: Positive for shortness of breath, Exam: 08:21 Constitutional: This is a well developed, well nourished patient who is awake, alert, ms3 and in no acute distress. Cardiovascular: Regular rate and rhythm with a normal S1 and S2. No gallops, murmurs, or rubs. Normal PMI, no JVD. No pulse deficits. Respiratory: Lungs have equal breath sounds bilaterally, clear to auscultation and percussion. No rales, rhonchi or wheezes noted. No increased work of breathing, no retractions or nasal flaring. Abdomen/GI: Soft, non-tender, with normal bowel sounds. No distension or tympany. No guarding or rebound. No evidence of tenderness throughout. Skin: Warm, dry with normal turgor. Normal color with no rashes, no lesions, and no evidence of cellulitis. 11:19 ECG was reviewed by the Attending Physician. ms3 Vital Signs: 08:25 BP 154 / 96; Pulse 97; Resp 20; Temp 97.9(O); Pulse Ox 97% on R/A; Weight 89.81 kg; iw Height 6 ft. 3 in. ; Pain 8/10; 08:30 BP 164 / 101; Pulse 91; Resp 18; Pulse Ox 99% ; db 09:07 BP 167 / 93; Pulse 86; Resp 16 S; Pulse Ox 100% on R/A; kc6 10:14 BP 115 / 93; Pulse 87; Resp 19; Pulse Ox 100% ; db 10:16 BP 115 / 93; kc6 11:16 BP 136 / 96; Pulse 85; Resp 18 S; Pulse Ox 100% on R/A; kc6 12:00 BP 133 / 99; Pulse 84; Resp 16; Pulse Ox 99% ; db 08:25 Body Mass Index 24.75 (89.81 kg, 190.5 cm) iw 08:25 Pain Scale: Adult iw MDM: 08:21 Medical Screening Exam initiated ms3 08:21 Differential diagnosis: CHF exacerbation, pulmonary edema, Arthritis vs Gout. ms3 09:43 Data reviewed: vital signs, nurses notes, lab test result(s), EKG, radiologic studies, ms3 and as a result, I will admit patient. Consideration of Admission/Observation Patient was admitted/placed on observation. Management of patient was discussed with the following: Hospitalist: . Clinical Project Assistant: Dr Sandee houston ASA, Statin, Heparin, Echo. I considered the following discharge prescriptions or medication management in the emergency department Medications were administered in the Emergency Department. See MAR. Independent interpretation of the following test(s) in the Emergency Department EKG: See my EKG interpretation above. Counseling: I had a detailed discussion with the patient and/or guardian regarding the historical points, exam findings, and any diagnostic results supporting the discharge/admit diagnosis, lab results, radiology results, the need for further work-up and treatment in the hospital. ED course: Discussed case with Dr. Rangel and he will consult on patient. Discussed with Dr Rossi and he will have dialysis arranged.. 11/04 08:21 Order name: Basic Metabolic Panel; Complete Time: 09:30 ms3 11/04 08:21 Order name: CBC with Diff; Complete Time: 09:30 ms3 11/04 08:21 Order name: LFT's; Complete Time: 09:30 ms3 11/04 08:21 Order name: Magnesium; Complete Time: 09:30 ms3 11/04 08:21 Order name: NT PRO-BNP; Complete Time: 09:30 ms3 11/04 08:21 Order name: PT-INR; Complete Time: 09:30 ms3 11/04 08:21 Order name: Troponin HS; Complete Time: 09:30 ms3 11/04 09:38 Order name: Ptt, Activated; Complete Time: 12:51 db 11/04 11:26 Order name: Magnesium; Complete Time: 12:51 EDMS 11/04 11:26 Order name: Phosphorus; Complete Time: 12:51 EDMS 11/04 11:26 Order name: T4 Free; Complete Time: 12:51 EDMS 11/04 11:26 Order name: Thyroid Stimulating Hormone; Complete Time: 12:51 EDMS 11/04 11:26 Order name: Urinalysis w/ reflexes; Complete Time: 14:54 EDMS 11/04 11:26 Order name: Basic Metabolic Panel EDMS 11/04 11:26 Order name: Basic Metabolic Panel EDMS 11/04 11:26 Order name: CBC with Automated Diff EDMS 11/04 11:26 Order name: CBC with Automated Diff EDMS 11/04 11:26 Order name: Lipid Profile EDMS 11/04 11:26 Order name: Lipid Profile EDMS 11/04 11:26 Order name: NT PRO-BNP EDMS 11/04 11:26 Order name: NT PRO-BNP EDMS 11/04 13:23 Order name: Ptt, Activated kc6 11/04 14:04 Order name: PTT, Activated Partial Thromb; Complete Time: 14:54 EDMS 11/04 08:21 Order name: XRAY Chest (1 view); Complete Time: 09:30 ms3 11/04 08:24 Order name: Knee Left 3 View XRAY; Complete Time: 09:30 ms3 11/04 11:26 Order name: Patient Safety Orders EDPA 11/04 11:26 Order name: CONS Physician Consult EDPA 11/04 11:26 Order name: CONS Physician Consult EDPA 11/04 08:21 Order name: Cardiac monitoring; Complete Time: 08:30 ms3 11/04 08:21 Order name: EKG - Nurse/Tech; Complete Time: 08:30 ms3 11/04 08:21 Order name: IV Saline Lock; Complete Time: 09:40 ms3 11/04 08:21 Order name: Labs collected and sent; Complete Time: 08:44 ms3 11/04 08:21 Order name: O2 Per Protocol; Complete Time: 08:30 ms3 11/04 08:21 Order name: O2 Sat Monitoring; Complete Time: 08:30 ms3 EC:19 Rhythm is regular. QRS [place] is Normal. MN interval is prolonged. Clinical impression: ms3 NSR w/ Non-specific ST/T Changes and 1st degree heart block. Reviewed by me. Administered Medications: 08:32 Drug: HYDROcodone-acetaminophen PO 5 mg-325 mg 1 tabs PO once Route: PO; db 09:07 Follow up: Response: No adverse reaction; RASS: Alert and Calm (0) kc6 09:50 Drug: Heparin (ND-Bolus No thrombolytic) - HEParin IVP 60 units/kg IVP once; Max 5000 kc6 units {Co-Signature: db (Alice Branch RN).} Route: IVP; Site: left antecubital; 11:16 Follow up: Response: No adverse reaction kc6 09:50 Drug: Heparin (ND Drip) 12 units/kg/hr - ([place] [address] units, D5W IV 500 ml) IV at kc6 calculated rate Per protocol; Max initial rate 1000 units/hr {Co-Signature: db (Alice Branch RN).} Route: IV; Rate: calculated rate; Site: left antecubital; 11:16 Follow up: Response: No adverse reaction; IV Status: Infusion continued upon admission; kc6 IV Intake: 500ml 09:52 Drug: Aspirin PO Chewable Tablet 324 mg PO once; 81 mg tablets x 4 Route: PO; kc6 10:16 Follow up: Response: No adverse reaction kc6 09:54 Not Given (Other Intervention Used): [id number] mg PO once kc6 09:54 Drug: Atorvastatin PO 20 mg PO once Route: PO; kc6 10:16 Follow up: Response: No adverse reaction kc6 Disposition: 09:43 Critical Care:. ms3 Disposition Summary: 11/04/24 09:46 Hospitalization Ordered Notes: Hospitalization Status: Inpatient Admission ms3 Provider: Thomas Boyle ms3 Condition: Stable ms3 Problem: new ms3 Symptoms: are unchanged ms3 Bed/Room Type: Standard ms3 Location: Telemetry/MedSurg (Inpatient)(11/04/24 15:37) Room Assignment: [facility](11/04/24 15:37) Diagnosis - Heart failure, unspecified ms3 - Acute pulmonary edema ms3 - Subsequent non-ST elevation (NSTEMI) myocardial infarction ms3 Forms: - Medication Reconciliation Form ms3 - SBAR form ms3 - Leadership Thank You Letter ms3 Critical care time excluding procedures: 09:43 Critical care time: Bedside Care: 35 minutes, Consultation: 10 minutes. Total time: 45 ms3 minutes Signatures: Dispatcher [employer] EDMS Martha Orr, RN RADHIKA Valery Restrepo RN RN ss Cy Nichols DO DO ms3 Sita Carrillo, RN RN kc6 Elsy Cheema, RN RN kb3 Alice Branch, RN RN db Alice Branch RN db Corrections: (The following items were deleted from the chart) 08:22 08:22 BASIC METABOLIC PANEL+C.LAB.BRZ ordered. EDMS EDMS 08:22 08:22 CBC+H.LAB.BRZ ordered. EDMS EDMS 08:22 08:22 HEPATIC FUNCTION+C.LAB.BRZ ordered. EDMS EDMS 08:22 08:22 MAGNESIUM+C.LAB.BRZ ordered. EDMS EDMS 08:22 08:22 PROBNP+C.LAB.BRZ ordered. EDMS EDMS 08:22 08:22 PROTIME (+INR)+COAG.LAB.BRZ ordered. EDMS EDMS 08:22 08:22 Troponin High Sensitivity+C.LAB.BRZ ordered. EDMS EDMS 08:22 08:22 Chest Single View+RAD.RAD.BRZ ordered. EDMS EDMS 12:58 09:46 Telemetry/MedSurg (Inpatient) ms3 kb3 12:58 09:46 ms3 kb3 15:37 12:58 BR ER HOLD kb3 ss 15:37 12:58 ERHOLD- kb3 ss
--- NOTE | 2024-11-04 09:47 | ER ---
Nurse's Notes [facility] Name: Natan Paulino Age: 64 yrs Sex: Male : 1960 Arrival Date: 11/04/2024 Time: 08:04 Bed 5 Private MD: Diagnosis: Heart failure, unspecified;Acute pulmonary edema;Subsequent non-ST elevation (NSTEMI) myocardial infarction Presentation: 11/04 08:25 Chief complaint: Patient states: SOB , palpitations X 2 days, also c/o left knee pain X iw 2 days. Coronavirus screen: At this time, the client does not indicate any symptoms associated with coronavirus-19. Ebola Screen: No symptoms or risks identified at this time. Initial Sepsis Screen: Does the patient meet any 2 criteria? No. Patient's initial sepsis screen is negative. Does the patient have a suspected source of infection? No. Patient's initial sepsis screen is negative. Risk Assessment: Do you want to hurt yourself or someone else? Patient reports no desire to harm self or others. Onset of symptoms was November 02, 2024. 08:25 Method Of Arrival: Wheelchair iw 08:25 Acuity: NINO 3 iw Historical: - Allergies: 08:26 PENICILLINS; iw - PMHx: 08:26 Atrial fibrillation; CHF; Gout; Hypertension; kidney disease; Myocardial infarction; iw osteoarthritis; Pancreatitis; Rheumatoid Arthritis; stroke; TIA; - PSHx: 08:26 heart stent; finger; Stented artery; iw - Immunization history:: Adult Immunizations up to date. - Infectious Disease History:: Denies. - Social history:: Smoking status: unknown. Screenin:46 [facility] ED Fall Risk Assessment (Adult) History of falling in the last 3 months, kc6 including since admission No falls in past 3 months (0 pts) Confusion or Disorientation No (0 pts) Intoxicated or Sedated No (0 pts) Impaired Gait Yes (1 pt) Mobility Assist Device Used Yes (1 pt) Altered Elimination No (0 pt) Score/Fall Risk Level 0 - 2 = Low Risk Oriented to surroundings, Maintained a safe environment, Educated pt \T\ family on fall prevention, incl call for assistance when getting out of bed. Abuse screen: Denies threats or abuse. Denies injuries from another. Nutritional screening: No deficits noted. Tuberculosis screening: No symptoms or risk factors identified. Assessment: 08:44 General: Appears in no apparent distress. comfortable, well groomed, well developed, kc6 Behavior is calm, cooperative, appropriate for age. Pain: Complains of pain in left knee. Neuro: Level of Consciousness is awake, alert, obeys commands, Oriented to person, place, time, situation, Appropriate for age. Cardiovascular: Reports palpitations, Heart tones S1 S2 present Capillary refill < 3 seconds Rhythm is regular Dialysis shunt: in the right supraclavicular area, with no palpable pulse, with no auscultated thrill, with no erythema, with no edema, no bleeding noted. Respiratory: Reports shortness of breath Airway is patent Trachea midline Respiratory effort is even, unlabored, Respiratory pattern is regular, symmetrical. GI: No signs and/or symptoms were reported involving the gastrointestinal system. : No signs and/or symptoms were reported regarding the genitourinary system. EENT: No signs and/or symptoms were reported regarding the EENT system. Derm: No signs and/or symptoms reported regarding the dermatologic system. Skin is intact, is healthy with good turgor, Skin is pink, warm \T\ dry. Musculoskeletal: Circulation, motion, and sensation intact. Range of motion: intact in all extremities. 09:53 Reassessment: Patient appears in no apparent distress at this time. No changes from kc6 previously documented assessment. Patient and/or family updated on plan of care and expected duration. Pain level reassessed. Patient is alert, oriented x 3, equal unlabored respirations, skin warm/dry/pink. 10:53 Reassessment: Patient appears in no apparent distress at this time. No changes from kc6 previously documented assessment. Patient and/or family updated on plan of care and expected duration. Pain level reassessed. Patient is alert, oriented x 3, equal unlabored respirations, skin warm/dry/pink. Vital Signs: 08:25 BP 154 / 96; Pulse 97; Resp 20; Temp 97.9(O); Pulse Ox 97% on R/A; Weight 89.81 kg; iw Height 6 ft. 3 in. ; Pain 8/10; 08:30 BP 164 / 101; Pulse 91; Resp 18; Pulse Ox 99% ; db 09:07 BP 167 / 93; Pulse 86; Resp 16 S; Pulse Ox 100% on R/A; kc6 10:14 BP 115 / 93; Pulse 87; Resp 19; Pulse Ox 100% ; db 10:16 BP 115 / 93; kc6 11:16 BP 136 / 96; Pulse 85; Resp 18 S; Pulse Ox 100% on R/A; kc6 12:00 BP 133 / 99; Pulse 84; Resp 16; Pulse Ox 99% ; db 08:25 Body Mass Index 24.75 (89.81 kg, 190.5 cm) iw 08:25 Pain Scale: Adult iw ED Course: 08:11 Patient arrived in ED. cj3 08:17 Cy Nichols DO is Attending Physician. ms3 08:22 Sita Carrillo, RN is Primary Nurse. kc6 08:26 Triage completed. iw 08:26 Arm band placed on. iw 08:30 Patient has correct armband on for positive identification. Bed in low position. Call kc6 light in reach. Side rails up X2. neuroradiologist on. Pulse ox on. NIBP on. Door closed. Noise minimized. Lights dimmed. Pillow given. Verbal reassurance given. 08:30 EKG done, by ED staff, reviewed by Cy Nichols DO. Patient maintains SpO2 saturation kc6 greater than 95% on room air. 08:44 Initial lab(s) drawn, by me, sent to lab. Missed attempt(s): 22 gauge in right kc6 antecubital area. 09:10 XRAY Chest (1 view) In Process Unspecified. EDMS 09:10 Knee Left 3 View XRAY In Process Unspecified. EDMS 09:40 Inserted saline lock: 20 gauge in left antecubital area, using aseptic technique. Blood kc6 collected. Flushed with 10 mL NS. 09:43 Inserted saline lock: 22 gauge in right forearm, using aseptic technique. Flushed with kc6 10 mL NS. 09:46 Thomas Boyle is Hospitalizing Provider. ms3 09:50 Provided Education on: HEPARIN DRIP. db 09:53 Patient requests pain medication. kc6 11:16 No provider procedures requiring assistance completed. Patient admitted, IV remains in kc6 place. Administered Medications: 08:32 Drug: HYDROcodone-acetaminophen PO 5 mg-325 mg 1 tabs PO once Route: PO; db 09:07 Follow up: Response: No adverse reaction; RASS: Alert and Calm (0) kc6 09:50 Drug: Heparin (MA-Bolus No thrombolytic) - HEParin IVP 60 units/kg IVP once; Max 5000 kc6 units {Co-Signature: leanne (Alice Branch RN).} Route: IVP; Site: left antecubital; 11:16 Follow up: Response: No adverse reaction kc6 09:50 Drug: Heparin (MA Drip) 12 units/kg/hr - ([place] [address] units, D5W IV 500 ml) IV at kc6 calculated rate Per protocol; Max initial rate 1000 units/hr {Co-Signature: leanne (Alice Branch RN).} Route: IV; Rate: calculated rate; Site: left antecubital; 11:16 Follow up: Response: No adverse reaction; IV Status: Infusion continued upon admission; kc6 IV Intake: 500ml 09:52 Drug: Aspirin PO Chewable Tablet 324 mg PO once; 81 mg tablets x 4 Route: PO; kc6 10:16 Follow up: Response: No adverse reaction kc6 09:54 Not Given (Other Intervention Used): [id number] mg PO once kc6 09:54 Drug: Atorvastatin PO 20 mg PO once Route: PO; kc6 10:16 Follow up: Response: No adverse reaction kc6 Medication: 11:17 VIS not applicable for this client. kc6 Intake: 11:16 IV: 500ml; Total: 500ml. kc6 Outcome: 09:46 Decision to Hospitalize by Provider. ms3 11:16 Admitted to ER Hold. Please see [facility] for further documentation. kc6 11:16 Condition: stable 11:16 Instructed on the need for admit, 16:19 Patient left the ED. kc6 Signatures: Dispatcher [employer] Martha Alcazar RN Cy Muhammad DO DO ms3 Sita aCrrillo RN RN kc6 Alice Branch, Radha Romero RN cj3 Alice Branch RN Corrections: (The following items were deleted from the chart) 09:52 09:43 Inserted saline lock: 22 gauge in right antecubital area, using aseptic kc6 technique. Flushed with 10 mL NS db
[2024-11-04] MEDS: HEPARIN/D5W 25,000 UNIT/500 ML BAG IV SCH (09:50)
[2024-11-04] MEDS: ASPIRIN 81 MG CHEWABLE TABLET PO SCH (09:52)
[2024-11-04] MEDS ORDERED: ATORVASTATIN 20 MG TAB ONE (09:52)
[2024-11-04] MEDS ORDERED: MANNITOL 25% 12.5 GM/50 ML VIAL IV PRN (10:42)
[2024-11-04] MEDS ORDERED: NA CHLORIDE 0.9% 1,000 ML IV PRN (10:42)
[2024-11-04] MEDS ORDERED: ALBUMIN HUMAN 25% 50 ML IV SCH (11:00)
[2024-11-04] MEDS ORDERED: ACETAMINOPHEN 325 MG TABLET PO PRN (11:07)
[2024-11-04] MEDS ORDERED: ONDANSETRON 4 MG/2 ML VIAL IV PRN (11:19)
--- NOTE | 2024-11-04 11:33 | P.HP ---
Certification for Inpatient Patient admitted to: Inpatient With expected LOS: >2 Midnights Patient will require the following post-hospital care: None Practitioner: I am a practitioner with admitting privileges, knowledge of patient current condition, hospital course, and medical plan of care. Services: Services provided to patient in accordance with Admission requirements found in Title 42 Section 412.3 of the Code of Federal Regulations Patient History Date of Service: 11/04/24 Reason for admission: Palpitations, Chest pain History of Present Illness: Patient is a 64-year-old male with a past medical history significant for A-fib, CHF, gout, hypertension, [place], osteoarthritis, RA, CVA who presents with complaint of palpitations onset yesterday. Patient also reports chest pain located in the left chest area, rated pain as 8/10 in severity and described as sharp in quality. Patient also reports left knee pain rated as 7/10 severity and described as aching in quality. Patient reported associated signs and symptoms shortness of breath and bilateral lower extremity swelling. Patient indicated that symptoms are aggravated by exertion and relieved by nothing. Patient denies any other signs and symptoms. Patient decided to present to the hospital due to worsening symptoms. Allergies Penicillins Allergy (Verified 10/27/22 21:16) Hives/Rash Home Medications: Amiodarone HCl [Cordarone*] 200 mg PO DAILY 07/27/24 Aspirin Chewable [Aspirin Chewable*] 81 mg PO DAILY 07/27/24 Atorvastatin Calcium [Lipitor] 40 mg PO BEDTIME 07/27/24 Bumetanide [Bumex] 2 g PO BID 07/27/24 Folic Acid 1 mg PO DAILY 07/27/24 Melatonin [Melatonin*] 6 mg PO BEDTIME 07/27/24 Metoprolol Succinate [Toprol Xl*] 1 tab PO BID 07/27/24 Pantoprazole [Protonix Tab*] 40 mg PO BID 07/27/24 Sacubitril/Valsartan [Entresto 97 mg-103 mg Tablet] 1 tab PO BID 07/27/24 Vitamin D [Drisdol*] 50,000 unit PO Q7D 07/27/24 Lidocaine 4% Patch [Lidoderm 5% Patch*] 3 patch TOP DAILY #90 pat 10/08/24 methocarbamoL [Robaxin*] 500 mg PO QID PRN #30 tab 10/08/24 Apixaban [Eliquis *] 2.5 mg PO BID 10/16/24 - Past Medical/Surgical History Diabetic: No -: HTN -: Systolic congestive 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 Rossi/ Dr. Cabral) -: CAD -: Mural thrombus-left ventricle-resolved, on Eliquis -: CVA/ TIA -: Hep C--rec'd treatment 08/2023 -: Cardiac stent placement July 2019 -: removal of L hand 5th digit -: Cardiac catheterization 08/2023 Psychosocial/ Personal History: Patient currently lives at home with his and is on disability due to heart condition. - Family History Father -: Cancer, Liver disease Mother -: GI disease, Other (see notes) Notes: NA - Social History Smoking Status: Never smoker Alcohol use: Yes CD- Drugs: Yes Caffeine use: Yes Place of Residence: Home Review of Systems General: Unremarkable Eyes: Unremarkable ENT: Unremarkable Respiratory: Shortness of Breath Cardiovascular: Chest Pain, Edema Musculoskeletal: Pedal edema, Other (+ for left knee pain) Neurological: Unremarkable Lymphatics: Unremarkable Physical Examination - Physical Exam General: Alert, In no apparent distress, Oriented x3, Cooperative HEENT: Atraumatic, PERRLA, Mucous membr. moist/pink, EOMI, Sclerae nonicteric Neck: Supple, 2+ carotid pulse no bruit, No LAD, Without JVD or thyroid abnormality Respiratory: Clear to auscultation bilaterally, Normal air movement Cardiovascular: Normal S1 S2, Edema, Irregular heart rate/rhythm Capillary refill: <2 Seconds Gastrointestinal: Normal bowel sounds, No tenderness Musculoskeletal: No clubbing, No tenderness, Swelling Integumentary: No rashes, No significant lesion Neurological: Normal gait, Normal speech, Normal tone, Normal affect Lymphatics: No axilla or inguinal lymphadenopathy - Studies Laboratory Data (last 24 hrs) 11/04/24 11/04/24 11/04/24 08:39 08:39 08:39 WBC 5.20 Hgb 9.9 L Hct 29.2 L Plt Count 147 L PT 15.0 H INR 1.33 APTT 28.6 Sodium Potassium BUN Creatinine Glucose Magnesium Total Bilirubin AST ALT Alkaline Phosphatase 11/04/24 08:39 WBC Hgb Hct Plt Count PT INR APTT Sodium 139 Potassium 4.1 BUN 30 H Creatinine 5.46 H Glucose 124 H Magnesium 2.0 Total Bilirubin 1.3 H AST 18 ALT 15 L Alkaline Phosphatase 134 H Assessment and Plan - Plan NSTEMI --Will trend serial troponins elevated--currently 1029.6 --Patient placed on heparin drip. --Show Card Letterer consulted. Recommendations appreciated. --Echocardiogram pending to assess cardiac structures and functions. --Telemetry to monitor for any significant arrhythmia. --Further management per tire technician. ESRD --Nephrology consulted. Recommendations appreciated. Acute on chronic systolic CHF exacerbation. --Dialysis schedule per power washer. --Daily weight and Strict I\O --Continue Home medications History of IA\CVA --Continue aspirin, Statin, heparin drip Atrial fibrillation -- Continue heparin drip and amiodarone Gout\hyperlipidemia\GERD\insomnia -- Continue home medications Rheumatoid arthritis\osteoarthritis --Continue current pain medication regimen Anemia of chronic disease --H&H stable. --Transfuse if hemoglobin less than 7.0. Left Knee pain --Knee Xray indicates No acute fracture or dislocation --Continue current pain medication regimen DVT prophylaxis with heparin drip. Discharge Plan: Home - Advance Directives Does patient have a Living Will: No Does patient have a Durable POA for Healthcare: No - Code Status/Comfort Care Code Status Assessed: Yes Physician Review: Patient Assessed, Agree with Above Assessment and Plan Critical Care: No
[2024-11-04 12:22] LABS: Thyroid Stimulating Hormone 0.456 uIU/mL (0.358-3.740)
--- NOTE | 2024-11-04 12:26 | EKG ---
Test Date: 2024-11-04 Test Time: 08:26:28 Balloon Artist: TORRES MEASUREMENT RESULTS: Intervals: Rate: 93 MS: 222 QRSD: 86 QT: 390 QTc: 484 [place]: P: 66 MS: 222 QRS: 3 T: 5 INTERPRETIVE STATEMENTS: Sinus rhythm with 1st degree AV block with occasional premature ventricular complexes and premature atrial complexes Low voltage QRS Borderline ECG Compared to ECG 10/09/2024 09:52:16 Atrial premature complex(es) now present Low QRS voltage now present Left bundle-branch block no longer present Electronically Signed On 11-04-24 12:24:42 CDT by Ted Rangel
--- NOTE | 2024-11-04 14:11 | P.CNS ---
Date of Consult: 11/04/24 Chief Complaint: Palpitations, Chest pain History of Present Illness: Patient with PMH of CAD, AF, Heart failure reduced EF, ESRD, presented with worsening SOB, BLE swelling, CARRION and chest pain started yesterday pressure in nature, patient got complaex history and he says he follow up at [facility] with Dr. Boyer. Allergies Penicillins Allergy (Verified 10/27/22 21:16) Hives/Rash Home medications list reviewed: Yes Home Medications: Amiodarone HCl [Cordarone*] 200 mg PO DAILY 07/27/24 Aspirin Chewable [Aspirin Chewable*] 81 mg PO DAILY 07/27/24 Atorvastatin Calcium [Lipitor] 40 mg PO BEDTIME 07/27/24 Bumetanide [Bumex] 2 g PO BID 07/27/24 Folic Acid 1 mg PO DAILY 07/27/24 Melatonin [Melatonin*] 6 mg PO BEDTIME 07/27/24 Metoprolol Succinate [Toprol Xl*] 1 tab PO BID 07/27/24 Pantoprazole [Protonix Tab*] 40 mg PO BID 07/27/24 Sacubitril/Valsartan [Entresto 97 mg-103 mg Tablet] 1 tab PO BID 07/27/24 Vitamin D [Drisdol*] 50,000 unit PO Q7D 07/27/24 Lidocaine 4% Patch [Lidoderm 5% Patch*] 3 patch TOP DAILY #90 pat 10/08/24 methocarbamoL [Robaxin*] 500 mg PO QID PRN #30 tab 10/08/24 Apixaban [Eliquis *] 2.5 mg PO BID 10/16/24 - Past Medical/Surgical History Diabetic: No -: HTN -: Systolic congestive 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 Rossi/ Dr. Cabral) -: CAD -: Mural thrombus-left ventricle-resolved, on Eliquis -: CVA/ TIA -: Hep C--rec'd treatment 08/2023 -: Cardiac stent placement July 2019 -: removal of L hand 5th digit -: Cardiac catheterization 08/2023 Psychosocial/ Personal History: Patient currently lives at home with his and is on disability due to heart condition. - Family History Father Medical History: Cancer, Liver disease Mother Medical History: GI disease, Other (see notes) Notes: NA - Social History Smoking Status: Unknown if ever smoked Alcohol use: Yes CD- Drugs: Yes Caffeine use: Yes Place of Residence: Home Review of Systems 10-point ROS is otherwise unremarkable Physical Examination Temp Pulse Resp BP Pulse Ox 97.9 F 84 15 133/99 H 99 11/04/24 12:00 11/04/24 12:00 11/04/24 12:00 11/04/24 12:00 11/04/24 12:00 General: Alert, In no apparent distress HEENT: Atraumatic, PERRLA, Mucous membr. moist/pink, EOMI, Sclerae nonicteric Neck: Supple, 2+ carotid pulse no bruit, No LAD, Without JVD or thyroid abnormality Respiratory: Clear to auscultation bilaterally, Normal air movement Cardiovascular: Regular rate/rhythm, Normal S1 S2 Gastrointestinal: Normal bowel sounds, No tenderness Musculoskeletal: No tenderness Integumentary: No rashes Neurological: Normal gait, Normal speech, Normal tone, Normal affect Lymphatics: No axilla or inguinal lymphadenopathy Laboratory Data (last 24 hrs) 11/04/24 11/04/24 11/04/24 08:39 08:39 08:39 WBC 5.20 Hgb 9.9 L Hct 29.2 L Plt Count 147 L PT 15.0 H INR 1.33 APTT 28.6 Sodium Potassium BUN Creatinine Glucose Magnesium Total Bilirubin AST ALT Alkaline Phosphatase 11/04/24 08:39 WBC Hgb Hct Plt Count PT INR APTT Sodium 139 Potassium 4.1 BUN 30 H Creatinine 5.46 H Glucose 124 H Magnesium 2.0 Total Bilirubin 1.3 H AST 18 ALT 15 L Alkaline Phosphatase 134 H - Problems (1) NSTEMI (non-ST elevated myocardial infarction) Current Visit: Yes Status: Acute Plan: NPO after midnight for coronary angiogram in am ASA 81 mg daily Heparin drip ACS protocol Lipitor 40 mg daily (2) Acute on chronic combined systolic and diastolic heart failure Current Visit: Yes Status: Acute Plan: patient was suppose to be scheduled for ICD placement but did not happen due to unkown reason, say they ballonned something in his chest. Patient is dialysis dependant continue volume adjusment through dialysis continue home medications
[2024-11-04 14:28] LABS: Specific Gravity 1.023 (1.005-1.030); Sqamous Epithelial None Seen /HPF (None Seen); Urine Bacteria None Seen /HPF (<20); Urine Bilirubin NEGATIVE (Negative); Urine Blood Negative (Negative); Urine Clarity Clear (Clear); Urine Color Yellow (Yellow); Urine Culture Reflex Order NOT NEEDED; Urine Glucose NEGATIVE (Negative); Urine Ketones NEGATIVE (Negative); Urine Microscopic Reflex YN ORDER UMIC; Urine Nitrite NEGATIVE (Negative); Urine Protein 2+ (Negative); Urine RBC None Seen /HPF (None Seen); Urine Urobilinogen 2+ (Normal); Urine WBC <5 /HPF (<5); Urine pH 7.5 (5.0-7.0)
[2024-11-04] MEDS: EPOETIN ALFA 10,000 UNIT/ML VIAL IV SCH (17:15)
[2024-11-04] MEDS: HYDROCODONE/APAP 5/325 MG TAB PO PRN (19:43)
[2024-11-05 04:31] LABS: Absolute Basophils 0.1 K/uL (0-0.5); Absolute Eosinophils 0.1 K/uL (0-0.5); Absolute Lymphocytes (CBC) 0.8 K/uL (0.7-4.9); Absolute Monocytes 0.5 K/uL (0.1-1.3); Absolute Neutrophil 2.3 K/uL (1.8-8.0); Basophils % 1.9 % (0-1.3); Eosinophils % 3.1 % (0-4.4); Hemoglobin 9.5 g/dL (13.6-17.9); Lymphocytes % 21.7 % (15.3-44.8); MCH 29.7 pg (27.0-35.0); MCHC 32.9 g/dL (32.0-36.0); MCV 90.3 fL (80-100); MPV 9.3 fL (7.6-11.3); Monocytes % 12.5 % (3.3-12.3); Neutrophils % 60.8 % (41.7-73.7); Nucleated Red Blood Cells % 0.1 % (0-0); Platelets 138 thou/uL (152-406); Red Cell Distribution Width 18.4 % (12.1-15.2)
[2024-11-05 04:45] LABS: Anion Gap 12.7 mEq/L (5.0-15.0); Potassium 3.7 mEq/L (3.5-5.1)
[2024-11-05 05:35] LABS: Band Neutrophils 3 % (0-1); Blood Morphology Comment NOT SEEN (NOT SEEN); Differential Total Cells Count 100; Eosinophils 5 % (0-3); Lymphocytes 17 % (15-42); Monocytes 7 % (0-10); Platelet Estimate ADEQ; Reactive Lymphocytes 5 %; Segmented Neutrophils 63 % (40-80)
[2024-11-05] MEDS: NA CHLORIDE 0.9% 500 ML ONE (08:04)
[2024-11-05] MEDS ORDERED: HEPA 1000U/500MLS 2,000 UNIT/1,000 ML BAG IV ONE (08:20)
[2024-11-05] MEDS ORDERED: HEPARIN 5000 UNIT/ML 1 ML VIAL ONE (08:21)
[2024-11-05] MEDS ORDERED: HEPARIN 10,000 UNIT/10 ML VIAL IV ONE (08:21)
[2024-11-05] MEDS ORDERED: ATROPINE SULF 1 MG/10 ML SYR IV ONE (08:21)
[2024-11-05] MEDS ORDERED: MIDAZOLAM HCL 2 MG/2 ML INJ ONE ×2 (08:23→11:59)
[2024-11-05] MEDS ORDERED: FENTANYL CITR 100 MCG/2 ML ONE ×2 (08:24→12:00)
[2024-11-05] MEDS ORDERED: LIDOCAINE 1% 20 ML MDV ONE (08:28)
[2024-11-05] MEDS: HYDROCODONE/APAP 5/325 MG TAB ONE (09:41)
--- NOTE | 2024-11-05 10:24 | P.CNS ---
Date of Consult: 11/05/24 Reason for Consult: ESRD Requesting Physician: junito boyle Chief Complaint: Palpitations, Chest pain History of Present Illness: Patient is a 64-year-old male with a past medical history significant for A-fib, CHF, gout, hypertension, [place], osteoarthritis, RA, CVA who presents with complaint of palpitations onset yesterday. Patient also reports chest pain located in the left chest area, rated pain as 8/10 in severity and described as sharp in quality. Patient also reports left knee pain rated as 7/10 severity and described as aching in quality. Patient reported associated signs and symptoms shortness of breath and bilateral lower extremity swelling. Patient indicated that symptoms are aggravated by exertion and relieved by nothing. Patient denies any other signs and symptoms. Patient decided to present to the hospital due to worsening symptoms. 08:21 This 64 yrs old Black Male presents to ER via Unassigned with complaints of Knee Pain, ms3 Shortness Of Breath, Palpitations. 08:21 64-year-old male with past medical history of hypertension, congestive heart failure, ms3 end-stage renal disease presents to the emergency department for palpitations and left knee pain that been ongoing for 2 days. Patient states that shortness of breath is worse with walking. Patient states the knee pain is better after taking Tylenol. He denies fevers, chills, cough. 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 Flo patrick and he has dialysis on Saturday, , Saturday and his last dialysis was yesterday.. Allergies Penicillins Allergy (Verified 10/27/22 21:16) Hives/Rash Home medications list reviewed: Yes Home Medications: Amiodarone HCl [Cordarone*] 200 mg PO DAILY 07/27/24 Aspirin Chewable [Aspirin Chewable*] 81 mg PO DAILY 07/27/24 Atorvastatin Calcium [Lipitor] 20 mg PO BEDTIME 07/27/24 Folic Acid 1 mg PO DAILY 07/27/24 Melatonin [Melatonin*] 6 mg PO BEDTIME 07/27/24 Metoprolol Succinate [Toprol Xl*] 1 tab PO BID 07/27/24 Sacubitril/Valsartan [Entresto 97 mg-103 mg Tablet] 1 tab PO BID 07/27/24 Vitamin D [Drisdol*] 50,000 unit PO Q7D 07/27/24 methocarbamoL [Robaxin*] 500 mg PO QID PRN #30 tab 10/08/24 Apixaban [Eliquis *] 2.5 mg PO BID 10/16/24 Bumetanide [Bumex*] 2 tab PO BID 11/05/24 - Past Medical/Surgical History Diabetic: No -: HTN -: Systolic congestive 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 Rossi/ Dr. Cabral) -: CAD -: Mural thrombus-left ventricle-resolved, on Eliquis -: CVA/ TIA -: Hep C--rec'd treatment 08/2023 -: Cardiac stent placement July 2019 -: removal of L hand 5th digit -: Cardiac catheterization 08/2023 Psychosocial/ Personal History: Patient currently lives at home with his and is on disability due to heart condition. - Family History Father Medical History: Cancer, Liver disease Mother Medical History: GI disease, Other (see notes) Notes: NA - Social History Smoking Status: Unknown if ever smoked Alcohol use: Yes CD- Drugs: Yes Caffeine use: Yes Place of Residence: Home Review of Systems 10-point ROS is otherwise unremarkable Respiratory: SOB with Excertion Cardiovascular: Edema Physical Examination Temp Pulse Resp BP Pulse Ox 98.3 F 74 16 114/79 97 11/05/24 08:00 11/05/24 09:50 11/05/24 09:50 11/05/24 09:50 11/05/24 08:00 General: In no apparent distress, Cooperative HEENT: Atraumatic Neck: Supple Respiratory: Diminished Cardiovascular: Regular rate/rhythm, Edema Gastrointestinal: Soft and benign, Non-distended Musculoskeletal: No clubbing, No contractures Integumentary: No rashes, No cyanosis Neurological: Normal speech Blood work reviewed in the chart. Imagings Data: EXAMINATION: ONE VIEW CHEST XR CLINICAL INDICATION: SOB TECHNIQUE: Frontal chest projection is submitted. Examination is limited by patient positioning and technique. COMPARISON: 10/09/2024 FINDINGS: Mild interstitial pulmonary edema. The heart is moderately enlarged in size. No displaced fractures identified. Right-sided venous catheters tip in SVC. IMPRESSION: Mild CHF versus volume overload. Conclusions/Impression: ESRD on HD TTS Proteinuria -Acute HD ordered -UF only yesterday HTN with CKD/ CHF Chronc Afib -Continue Metoprolol -Continue Amiodarone -Continue Entresto Systolic CHF, A/C -Low sodium diet -UF with HD today Anemia in CKD -Retacrit qHD CKD MBD Secondary HyperParathyroidism -Start Phoslo -Start Calcitriol -Continue Ergo Hospitalist and ER notes reviewed Case reviewed with Dr. Boyle Thank you kindly for the consultation
--- NOTE | 2024-11-05 11:02 | P.PN ---
Subjective Date of Service: 11/05/24 Chief Complaint: Palpitations, Chest pain Subjective: No new changes, No C/O voiced, Tolerating diet, Ambulating, Improving Review of Systems 10-point ROS is otherwise unremarkable Physical Examination - Vital Signs Temperature: 98.3 F Blood Pressure: 129/82 Pulse: 78 Respirations: 18 Pulse Ox (%): 97 - Physical Exam General: Alert, In no apparent distress HEENT: Atraumatic, PERRLA, EOMI Neck: Supple, JVD not distended Respiratory: Clear to auscultation bilaterally, Normal air movement Cardiovascular: Regular rate/rhythm, Normal S1 S2 Gastrointestinal: Normal bowel sounds, No tenderness Musculoskeletal: No tenderness Integumentary: No rashes Neurological: Normal speech, Normal tone, Normal affect Lymphatics: No axilla or inguinal lymphadenopathy - Studies Medications List Reviewed: Yes Assessment And Plan - Current Problems (Diagnosis) (1) NSTEMI (non-ST elevated myocardial infarction) Current Visit: Yes Status: Acute Plan: Coronary angiogram done and shows normal coronaries, Type 2 FL from ESRD, HF. ASA 81 mg daily d/c Heparin drip Lipitor 40 mg daily (2) Acute on chronic combined systolic and diastolic heart failure Current Visit: Yes Status: Acute Plan: patient was suppose to be scheduled for ICD placement but did not happen due to unkown reason, say they ballonned something in his chest. Patient is dialysis dependant continue volume adjusment through dialysis continue home medications Physician Review: Patient Assessed, Agree with Above Assessment and Plan
[2024-11-05 11:57] VITALS: BMI 26.8
--- NOTE | 2024-11-05 14:32 | ECHO ---
HEIGHT: 6 ft 3 in WEIGHT: 214 lb 8 oz DATE OF STUDY: 11/04/[address]: Ruby Guzman 2-DIMENSIONAL: YES M.MODE: YES DOPPLER: YES COLOR FLOW: YES TDS: PORTABLE: YES DEFINITY: BUBBLE STUDY: DIAGNOSIS: ACUTE CORONARY SYNDROME/ CONGESTIVE HEART FAILURE CARDIAC HISTORY: CATHERIZATION: YES SURGERY: NO PROSTHETIC VALVE: NO PACEMAKER: NO MEASUREMENTS (cm) DIASTOLIC (NORMALS) SYSTOLIC (NORMALS) IVSd 1.2 (0.6-1.2) LA Diam 4.9 (1.9-4.0) LVEF 15-20% LVIDd 5.9 (3.5-5.7) LVIDs 5.2 (2.0-3.5) %FS 13% LVPWd 1.3 (0.6-1.2) Ao Diam 3.7 (2.0-3.7) 2 DIMENSIONAL ASSESSMENT: RIGHT ATRIUM: ENLARGED LEFT ATRIUM: ENLARGED RIGHT VENTRICLE: NORMAL LEFT VENTRICLE: MODERATELY DILATED TRICUSPID VALVE: MODERATE TRICUSPID REGURGITATION MITRAL VALVE: MILD MITRAL REGURGITATION PULMONIC VALVE: NORMAL AORTIC VALVE: TRACE AORTIC REGURGITATION PERICARDIAL EFFUSION: TRACE AORTIC ROOT: NORMAL LEFT VENTRICULAR WALL MOTION: SEVERE GLOBAL HYPOKINESIS DOPPLER/COLOR FLOW: DIASTOLIC DYSFUNCTION COMMENTS: 1. BI-ATIRAL ENLARGEMENT 2. SEVERELY REDUCED LEFT VENTRICULAR SYSTOLIC FUNCTION, EJECTION FRACTION 15-20%, SEVERE GLOBAL HYPOKINESIS 3. DIASTOLIC DYSFUNCTION 4. ELEVATED FILLING PRESSURE (RIGHT ATRIAL PRESSURE 15-20 mmHg) 5. SEVERE PULMONARY HYPERTENSION (RIGHT VENTRICULAR SYSTOLIC PRESSURE 55-60 mmHg) 6. MODERATE TO SEVERE TRICUSPID REGURGITATION TECHNOLOGIST: LEROY PIERSON
[2024-11-05] MEDS: HYDROCODONE/APAP 5/325 MG TAB PO ONE (18:06)
--- NOTE | 2024-11-05 19:21 | P.PN ---
Subjective Date of Service: 11/05/24 Chief Complaint: Palpitations, Chest pain Patient complaining of left knee pain. He denies any chest pain. He states his shortness of breath has significantly improved. Physical Examination - Vital Signs Temperature: 98.3 F Blood Pressure: 115/88 Pulse: 99 Respirations: 18 Pulse Ox (%): 97 - Studies Medications List Reviewed: Yes Assessment And Plan - Plan Physical examination General: Alert and oriented x3, NAD, HEENT: Conjunctiva not pale, anicteric sclera Neck: Supple, no elevated JVD Heart: Heart sounds 1 and 2 normal, regular rhythm, normal rate, no pedal edema Lungs: Clear to auscultation bilaterally, adequate breath sounds bilaterally, no rhonchi or crackles. Abdomen: Soft, nondistended, nontender, normal bowel sounds. Extremities: Right knee tenderness, no deformity Skin: Normal skin turgor, no rash, no nodules or ulcers. Neuro: No focal motor deficit. Normal speech. Psychiatry: Normal mood, no agitation. Diagnosis NSTEMI Acute on chronic systolic heart failure End-stage renal disease on hemodialysis Chronic atrial fibrillation Gout Hyperlipidemia GI Osteoarthritis Anemia of chronic kidney disease Plan: NSTEMI Acute on chronic systolic heart failure Patient troponin trended after 1029. Patient evaluated by cardiology Dr. Rangel who performed cardiac catheterization. Patient found to have normal coronary arteries. Medical management recommended by cardiology. Continue aspirin, statin, metoprolol and Bumex. Chronic atrial fibrillation Resume home dose amiodarone and Eliquis. End-stage renal disease on hemodialysis Patient evaluated by nephrology. Hemodialysis today Hyperlipidemia GERD Continue home medications Chronic pain syndrome Osteoarthritis Gout Analgesics as needed Anemia of chronic kidney disease Stable Monitor CBC DVT prophylaxis: Eliquis Advanced directive: Full code.
[2024-11-05] MEDS: HOME MED 1 EA UNK (Bumetanide [Bumex] 2 MG Tablet) PO SCH (21:00)
[2024-11-05] MEDS: ATORVASTATIN 40 MG TAB PO SCH (21:00)
[2024-11-05] MEDS: HOME MED 1 EA UNK (Sacubitril/Valsartan [Entresto 97 Mg-103 Mg Tablet] Tablet) PO SCH (21:00)
[2024-11-05] MEDS: METOPROLOL XL 25 MG TAB PO SCH (21:00)
[2024-11-05] MEDS ORDERED: DRISDOL (VITAMIN D=ERGOCALCIFEROL) 50000 UNIT CAP PO ONE (21:16)
[2024-11-05] MEDS: ATORVASTATIN 20 MG TAB ONE (21:17)
[2024-11-05] MEDS: APIXABAN 2.5 MG TABLET ONE (21:17)
[2024-11-05] MEDS: MELATONIN 3 MG TABLET PO ONE (21:17)
[2024-11-05] MEDS: APIXABAN 2.5 MG TABLET PO SCH (21:29)
[2024-11-05] MEDS: DRISDOL (VITAMIN D=ERGOCALCIFEROL) 50000 UNIT CAP PO SCH (21:30)
[2024-11-05] MEDS: MELATONIN 3 MG TABLET PO SCH (21:31)
[2024-11-06 04:17] VITALS: O2SAT 97
[2024-11-06] MEDS: COENZYME Q10- 200 MG CAP PO SCH (07:36)
[2024-11-06] MEDS: SACUBITRIL/VALSARTAN 49/51 MG TAB PO SCH (07:36)
[2024-11-06] MEDS: CALCITROL 0.25 MCG CAP PO SCH (07:37)
[2024-11-06] MEDS: FOLIC ACID 1 MG TABLET PO SCH (07:37)
[2024-11-06] MEDS: AMIODARONE HCL 200 MG TAB PO SCH (07:37)
[2024-11-06] MEDS: BUMETANIDE 1 MG TABLET PO SCH (07:37)
[2024-11-06] MEDS: DOCUSATE NA 100 MG CAP PO SCH (07:37)
[2024-11-06] MEDS: methocarbamoL 500 MG TAB PO PRN (07:38)
[2024-11-06] MEDS: CALCIUM ACETATE 667 MG TAB PO SCH (07:38)
[2024-11-06 07:39] VITALS: BP 114/79
[2024-11-06 08:34] VITALS: TEMP 97.8
--- NOTE | 2024-11-06 08:48 | P.DS ---
Admission Date: 11/04/24 Discharge Date: 11/06/24 Disposition: ROUTINE DISCHARGE Discharge Condition: FAIR Reason for Admission: Palpitations, Chest pain Brief History of Present Illness: Patient is a 64-year-old male with a past medical history significant for A-fib, CHF, gout, hypertension, SC, osteoarthritis, RA, CVA who presented with complaint of palpitations onset yesterday. Patient also reported chest pain located in the left chest area, rated pain as 8/10 in severity and described as sharp in quality. Patient also reports left knee pain rated as 7/10 severity and described as aching in quality. Patient reported associated signs and symptoms shortness of breath and bilateral lower extremity swelling. Patient indicated that symptoms are aggravated by exertion and relieved by nothing. Patient was evaluated in the ED and his initial troponin noted to be elevated to 1029. Patient was hospitalized for further management of NSTEMI. Hospital Course: Diagnosis NSTEMI Acute on chronic systolic heart failure End-stage renal disease on hemodialysis Chronic atrial fibrillation Gout Hyperlipidemia GI Osteoarthritis Anemia of chronic kidney disease Patient admitted to the medical floor and the following medical problems addressed: Plan: NSTEMI Acute on chronic systolic heart failure Patient troponin elevated to 1029 Patient evaluated by cardiology Dr. Rangel who performed cardiac catheterization. Patient found to have normal coronary arteries. Medical management recommended by cardiology. Continued aspirin, statin, metoprolol and Bumex. Patient is clinically improved and appears compensated for CHF. Vitals are stable for discharge. Chronic atrial fibrillation Resumed home dose amiodarone and Eliquis. End-stage renal disease on hemodialysis Patient evaluated by nephrology. He underwent routine hemodialysis Hyperlipidemia GERD Continued home medications Chronic pain syndrome Osteoarthritis Gout Treated with analgesics as needed. Anemia of chronic kidney disease Stable Vital Signs/Physical Exam: Temp Pulse Resp BP Pulse Ox 97.8 F 87 16 114/79 99 11/06/24 08:00 11/06/24 08:00 11/06/24 08:00 11/06/24 08:00 11/06/24 08:00 General: Alert, In no apparent distress, Oriented x3 HEENT: PERRLA Neck: Supple, JVD not distended Respiratory: Clear to auscultation bilaterally, Normal air movement Cardiovascular: Regular rate/rhythm, Normal S1 S2 Gastrointestinal: Normal bowel sounds, Soft and benign, Non-distended Musculoskeletal: No swelling Integumentary: No rashes, No cyanosis Neurological: Normal strength at 5/5 x4 extr, Cranial nerves 3-12 intact Laboratory Data at Discharge: WBC 3.80 thou/uL (4.3-10.9) L 11/05/24 04:20 Hgb 9.5 g/dL (13.6-17.9) L 11/05/24 04:20 Hct 29.0 % (39.6-49.0) L 11/05/24 04:20 Plt Count 138 thou/uL (152-406) L 11/05/24 04:20 PT 15.0 SECONDS (10-13.0) H 11/04/24 08:39 INR 1.33 11/04/24 08:39 APTT Cancelled 11/05/24 08:30 Sodium 136 mEq/L (136-145) 11/05/24 03:30 Potassium 3.7 mEq/L (3.5-5.1) 11/05/24 03:30 BUN 39 mg/dL (7-18) H 11/05/24 03:30 Creatinine 6.30 mg/dL (0.70-1.30) H 11/05/24 03:30 Glucose 130 mg/dL (74-106) H 11/05/24 03:30 Phosphorus 4.0 mg/dL (2.5-4.9) 11/04/24 11:51 Magnesium 2.0 mg/dL (1.6-2.4) 11/04/24 11:51 Total Bilirubin 1.3 mg/dL (0.2-1.0) H 11/04/24 08:39 AST 18 U/L (15-37) 11/04/24 08:39 ALT 15 U/L (16-61) L 11/04/24 08:39 Alkaline Phosphatase 134 U/L (45-117) H 11/04/24 08:39 Triglycerides 68 mg/dL (<150) 11/05/24 03:30 Cholesterol 152 mg/dL (<200) 11/05/24 03:30 HDL Cholesterol 80 mg/dL (40-60) H 11/05/24 03:30 Cholesterol/HDL Ratio 1.90 11/05/24 03:30 Home Medications: Amiodarone HCl [Cordarone*] 200 mg PO DAILY 07/27/24 Aspirin Chewable [Aspirin Chewable*] 81 mg PO DAILY 07/27/24 Atorvastatin Calcium [Lipitor] 20 mg PO BEDTIME 07/27/24 Folic Acid 1 mg PO DAILY 07/27/24 Melatonin [Melatonin*] 6 mg PO BEDTIME 07/27/24 Metoprolol Succinate [Toprol Xl*] 1 tab PO BID 07/27/24 Sacubitril/Valsartan [Entresto 97 mg-103 mg Tablet] 1 tab PO BID 07/27/24 Vitamin D [Drisdol*] 50,000 unit PO Q7D 07/27/24 methocarbamoL [Robaxin*] 500 mg PO QID PRN #30 tab 10/08/24 Apixaban [Eliquis *] 2.5 mg PO BID 10/16/24 Bumetanide [Bumex*] 2 tab PO BID 11/05/24 Calcium Acetate [Phoslo*] 1,334 mg PO TIDWM #180 tab 11/06/24 Epoetin [Retacrit] 10,000 unit IV EVERY HD vial 11/06/24 Hydrocodone 5/APAP 325 [[place] 5/325*] 1 tab PO Q6H PRN #12 tab 11/06/24 calcitrioL [Calcitriol] 0.5 mcg PO DAILY #30 cap 11/06/24 New Medications: calcitrioL [Calcitriol] 0.5 mcg PO DAILY #30 cap Hydrocodone 5/APAP 325 [[place] 5/325*] 1 tab PO Q6H PRN #12 tab PRN Reason: Pain Scale 5-7 (Moderate) Calcium Acetate [Phoslo*] 1,334 mg PO TIDWM #180 tab Diet: Renal Activity: Ad pelon Followup: Anton Hayes DO [Primary Care Provider] - 1-2 Weeks Leonardo Rossi DO [ACTIVE - CAN ADMIT] - 1-2 Weeks Time spent managing pt's care (in minutes): 33
[2024-11-06] MEDS ORDERED: ASPIRIN 81 MG CHEWABLE TABLET PO SCH (09:00)
[2024-11-06] MEDS ORDERED: ATORVASTATIN 20 MG TAB PO SCH (21:00)
--- NOTE | 2024-11-09 12:37 | OP ---
Date of Procedure: 11/05/2024 Surgeon: Ted Rangel Procedure Performed: Selective coronary angiogram. Indication For Procedure: Unstable angina. Complications: None. Estimated Blood Loss: Less than 50 cc. Access: Right radial, closed by TR band. Sedation Time: 20 minutes with 1 of Versed and 25 fentanyl. Description Of Procedure: After risks, benefits, and alternatives were explained to the patient, the patient agreed to proceed with procedure and signed informed consent. The patient was brought back to the cardiovascular lab director, prepped and draped in sterile fashion. Time-out was performed. Sedation was admini stered. Next, right radial access was obtained using ultrasound-guided micropuncture technique. Tig er 4 catheter was advanced to the aortic root. Selective angiogram was done using the same catheter. At the end of procedure, catheter was removed over a J-wire. Sheath was removed. TR band was appl ied. Hemostasis was achieved and the patient was moved back to recovery in stable condition. Findings: 1. Left main: Normal. 2. LAD: Normal. 3. Left circumflex: Normal. 4. RCA: Normal. Assessment: Normal coronaries. Plan: To continue medical management. HARGROVE/MODL Voice ID: [id number] Report ID: [id number]
== END 2024-11-06 09:35 | disposition home or self-care (01) | DRG 280 ==
LOC: ER 08:04 → ERHOLD 11:19 → 2ND 17:06
PROVIDERS: ADMIT Internal Medicine; ATTEND Internal Medicine
PROC: 5A1D70Z Performance of Urinary Filtration, Intermittent, Less than 6 Hours Per Day (ICD-10-PCS; 2024-11-04)
PROC: 4A023N7 Measurement of Cardiac Sampling and Pressure, Left Heart, Percutaneous Approach (ICD-10-PCS; principal; 2024-11-05)
PROC: B2111ZZ Fluoroscopy of Multiple Coronary Arteries using Low Osmolar Contrast (ICD-10-PCS; 2024-11-05)
DX: I13.2 Hypertensive heart and chronic kidney disease with heart failure and with stage 5 chronic kidney disease, or end stage renal disease (principal); I50.43 Acute on chronic combined systolic (congestive) and diastolic (congestive) heart failure; I21.A1 Myocardial infarction type 2; N18.6 End stage renal disease; N25.81 Secondary hyperparathyroidism of renal origin; I48.20 Chronic atrial fibrillation, unspecified; K92.2 Gastrointestinal hemorrhage, unspecified; D63.1 Anemia in chronic kidney disease; M10.9 Gout, unspecified; M25.562 Pain in left knee; I48.91 Unspecified atrial fibrillation; M19.90 Unspecified osteoarthritis, unspecified site; G89.4 Chronic pain syndrome; M06.9 Rheumatoid arthritis, unspecified; K21.9 Gastro-esophageal reflux disease without esophagitis; G47.00 Insomnia, unspecified; I25.10 Atherosclerotic heart disease of native coronary artery without angina pectoris; I25.2 Old myocardial infarction; Z99.2 Dependence on renal dialysis; Z88.0 Allergy status to penicillin; Z95.5 Presence of coronary angioplasty implant and graft; Z86.73 Personal history of transient ischemic attack (TIA), and cerebral infarction without residual deficits; Z79.82 Long term (current) use of aspirin; Z79.01 Long term (current) use of anticoagulants; Z79.899 Other long term (current) drug therapy
CPT/HCPCS: 36415; 71045; 76937; 80048; 80061; 80076; 81001; 83735; 83880; 84100; 84439; 84443; 84484; 85025; 85610; 85730; 90935; 93005; 93306; 93454; 94760; 96365; 99152; 99153; 99285; C1893; J0461; J1644; J2003; J2250; J3010; J7040; Q9966

== ENCOUNTER 2024-11-19 08:32 | Observation (INO) | payer OTHER ==
--- NOTE | 2024-11-19 09:44 | RAD REPORT ---
EXAMINATION: ONE VIEW CHEST XR CLINICAL INDICATION: CHEST PAIN TECHNIQUE: Frontal chest projection is submitted. Examination is limited by patient positioning and t echnique. COMPARISON: 11/04/2024 FINDINGS: The lungs are well inflated and clear. The heart is moderately enlarged in size. No displaced fractur es identified. Right-sided venous catheter is tip in the SVC. IMPRESSION: No acute intrathoracic abnormalities.
[2024-11-19] MEDS ORDERED: HYDROMORPHONE HCL 0.5 MG/0.5 ML INJ ONE ×2 (09:53→15:16)
[2024-11-19 10:06] LABS: Absolute Basophils 0.1 K/uL (0-0.5); Absolute Eosinophils 0.1 K/uL (0-0.5); Absolute Monocytes 0.8 K/uL (0.1-1.3); Absolute Neutrophil 5.3 K/uL (1.8-8.0); Basophils % 1.4 % (0-1.3); Hematocrit 38.1 % (39.6-49.0); Lymphocytes % 13.3 % (15.3-44.8); MCH 29.1 pg (27.0-35.0); MCHC 31.4 g/dL (32.0-36.0); MCV 92.6 fL (80-100); MPV 9.8 fL (7.6-11.3); Neutrophils % 73.3 % (41.7-73.7); Nucleated Red Blood Cells % 0.2 % (0-0); Platelets 229 thou/uL (152-406); RBC Red Blood Cell Count 4.11 M/uL (4.33-5.43); Red Cell Distribution Width 19.6 % (12.1-15.2)
[2024-11-19 10:13] LABS: PT Prothrombin Time 15.4 SECONDS (10-13.0); Protime INR 1.37
[2024-11-19 10:46] LABS: AST/SGOT 17 U/L (15-37); Albumin 3.5 g/dL (3.4-5.0); Albumin/Globulin Ratio 0.8 (1.1-1.8); Alkaline Phosphatase 148 U/L (45-117); Anion Gap 13.6 mEq/L (5.0-15.0); BUN Blood Urea Nitrogen 30 mg/dL (7-18); Bicarbonate 25 mEq/L (21-32); Bilirubin Direct 0.9 mg/dL (0-0.2); Bilirubin Indirect, Calculated 0.9 mg/dL (0.2-0.8); Bilirubin Total 1.8 mg/dL (0.2-1.0); Globulin 4.2 g/dL (2.3-3.5); Glomerular Filtration Rate 8 ml/min (=/>90); Glucose Level 96 mg/dL (74-106); NT PRO-BNP 72674 pg/mL (<125); Potassium 3.6 mEq/L (3.5-5.1); Protein, Total 7.7 g/dL (6.4-8.2); Sodium Level 140 mEq/L (136-145)
[2024-11-19 10:48] LABS: ALT/SGPT < 14 U/L (16-61)
[2024-11-19 10:50] LABS: Troponin High Sensitivity 846.3 pg/mL (<58.9)
--- NOTE | 2024-11-19 11:05 | EDPHYS ---
Physician Documentation [facility] Name: Natan Paulino Age: 64 yrs Sex: Male : 1960 Arrival Date: 11/19/2024 Time: 08:32 Bed 5 Private MD: ED Physician Eddy Jha HPI: 11/19 10:52 This 64 yrs old Black Male presents to ER via Ambulatory with complaints of Chest Pain, rn Chest Tightness, Shortness Of Breath, Presyncope. 10:52 The patient or guardian reports chest pain that is located primarily in the anterior rn chest wall, left. Onset: this morning. The pain does not radiate. Associated signs and symptoms: Pertinent positives: shortness of breath, Pertinent negatives: abdominal pain, cough, syncope, vomiting. The chest pain is described as aching. Modifying factors: The symptoms are alleviated by nothing. the symptoms are aggravated by exertion. Severity of pain: At its worst the pain was mild in the emergency department the pain is unchanged. The patient has experienced similar episodes in the past. Patient reports woke up this morning with chest pain and shortness of breath. Did not go to dialysis because of the chest pain and he states they would have sent him in anyway. No fever or chills. No hemoptysis. No swelling.. Historical: - Allergies: 08:45 PENICILLINS; ll1 - PMHx: 08:45 Atrial fibrillation; CHF; Gout; Hypertension; kidney disease; Myocardial infarction; ll1 osteoarthritis; Pancreatitis; Rheumatoid Arthritis; stroke; TIA; - PSHx: 08:45 finger; heart stent; Stented artery; ll1 - Immunization history:: Adult Immunizations up to date. - Social history:: Smoking status: Patient denies any tobacco usage or history of. - Family history:: not pertinent. - Hospitalizations: : No recent hospitalization is reported. ROS: 10:52 Constitutional: Negative for fever, chills, and weight loss, Cardiovascular: Negative rn for palpitations, and edema, Respiratory: Negative for cough, wheezing, and pleuritic chest pain, Abdomen/GI: Negative for abdominal pain, nausea, vomiting, diarrhea, and constipation, MS/Extremity: Negative for injury and deformity, Skin: Negative for injury, rash, and discoloration, Neuro: Positive for dizziness and generalized weakness Exam: 10:52 Constitutional: This is a well developed, well nourished patient who is awake, alert, rn and in no acute distress. Head/Face: Normocephalic, atraumatic. Cardiovascular: Regular rate and rhythm . No pulse deficits. Respiratory: Mild tachypnea Abdomen/GI: Soft, non-tender MS/ Extremity: Pulses equal, no cyanosis. Neurovascular intact. Full, normal range of motion. Equal circumference. Neuro: Awake and alert, GCS 15 10:52 ECG was reviewed by the Attending Physician. Vital Signs: 08:45 BP 120 / 90; Pulse 82; Resp 16; Temp 97.1; Pulse Ox 100% on R/A; Pain 7/10; ll1 09:42 Pulse 86; ss 11:03 BP 131 / 92; Pulse 80; Resp 18; Pulse Ox 100% on R/A; Pain 8/10; ss 14:04 BP 135 / 99; Pulse 100; Resp 18; Pulse Ox 98% on R/A; Pain 8/10; ss 16:06 BP 126 / 89; Pulse 76; Resp 18; Temp 98.2(O); Pulse Ox 97% on R/A; Pain 3/10; ss 08:45 Pain Scale: Adult ll1 11:03 Pain Scale: Adult ss 14:04 Pain Scale: Adult ss 16:06 Pain Scale: Adult ss MDM: 08:44 Medical Screening Exam initiated rn 11:01 Differential diagnosis: acute myocardial infarction, acute pericarditis, coronary rn artery disease congestive heart failure costochondritis, pleurisy, pneumonia, pneumothorax, stable angina, unstable angina. Data reviewed: vital signs, nurses notes, lab test result(s), EKG, radiologic studies, plain films, and as a result, I will admit patient. Consideration of Admission/Observation Patient was admitted/placed on observation. Escalation of care including admission/observation considered. Counseling: I had a detailed discussion with the patient and/or guardian regarding the historical points, exam findings, and any diagnostic results supporting the discharge/admit diagnosis, lab results, radiology results, the need for further work-up and treatment in the hospital. 11/19 08:45 Order name: Basic Metabolic Panel; Complete Time: 10:51 rn 11/19 08:45 Order name: CBC with Diff; Complete Time: 10:50 rn 11/19 08:45 Order name: LFT's; Complete Time: 10:51 rn 11/19 08:45 Order name: NT PRO-BNP; Complete Time: 10:51 rn 11/19 08:45 Order name: PT-INR; Complete Time: 10:50 rn 11/19 08:45 Order name: Troponin HS; Complete Time: 10:51 rn 11/19 15:01 Order name: Basic Metabolic Panel EDMS 11/19 15:01 Order name: Basic Metabolic Panel EDMS 11/19 15:01 Order name: CBC with Automated Diff EDMS 11/19 15:01 Order name: CBC with Automated Diff EDMS 11/19 15:02 Order name: Lipid Profile EDMS 11/19 15:02 Order name: Lipid Profile EDMS 11/19 15:02 Order name: Troponin High Sensitivity EDMS 11/19 15:02 Order name: Troponin High Sensitivity EDMS 11/19 15:02 Order name: Troponin High Sensitivity EDMS 11/19 15:02 Order name: Troponin High Sensitivity EDMS 11/19 08:45 Order name: XRAY Chest (1 view); Complete Time: 10:50 rn 11/19 15:01 Order name: Echo with Doppler EDMS 11/19 08:45 Order name: EKG; Complete Time: 08:45 rn 11/19 15:01 Order name: CONS Physician Consult EDMS 11/19 08:45 Order name: Cardiac monitoring; Complete Time: 09:49 rn 11/19 08:45 Order name: EKG - Nurse/Tech; Complete Time: 08:48 rn 11/19 08:45 Order name: IV Saline Lock; Complete Time: 10:03 rn 11/19 08:45 Order name: Labs collected and sent; Complete Time: 10:03 rn 11/19 08:45 Order name: O2 Per Protocol; Complete Time: 09:49 rn 11/19 08:45 Order name: O2 Sat Monitoring; Complete Time: 09:49 rn EC:52 Rate is 87 beats/min. Rhythm is regular. Right axis deviation noted. QRS is negative in rn leads I, aVF. QRS interval is normal. QT interval is normal. No Q waves. T waves are Normal. No ST changes noted. Clinical impression: 1st degree heart block. Interpreted by me. Reviewed by me. Administered Medications: 10:03 Drug: HYDROmorphone IVP 0.5 mg IVP once Route: IVP; Site: left antecubital; bp 11:05 Follow up: Response: No adverse reaction bp 15:23 Drug: HYDROmorphone IVP 0.5 mg IVP once Route: IVP; Site: left antecubital; ss 15:53 Follow up: Response: No adverse reaction; Pain is decreased; RASS: Alert and Calm (0) ss Disposition Summary: 11/19/24 11:05 Hospitalization Ordered Notes: Hospitalization Status: Inpatient Admission rn Provider: Abram Cerrato rn Location: Telemetry/MedSurg (Inpatient)(11/19/24 11:05) rn Condition: Stable(11/19/24 11:05) rn Problem: new(11/19/24 11:05) rn Symptoms: have improved(11/19/24 11:05) rn Bed/Room Type: Standard rn Room Assignment: 207(11/19/24 18:22) bc6 Diagnosis - Chest pain, unspecified(11/19/24 11:05) rn - Dyspnea, unspecified(11/19/24 11:05) rn - End stage renal disease(11/19/24 11:05) rn Forms: - Medication Reconciliation Form rn - SBAR form rn - Leadership Thank You Letter rn Signatures: Dispatcher [employer] EDMO Eddy Jha MD MD rn Blanchard, Shelby RN RN Martin oRy, RN RN Preston Perez, RN RN ll1 Chiara Cates bc6 Corrections: (The following items were deleted from the chart) 08:45 08:45 BASIC METABOLIC PANEL+C.LAB.BRZ ordered. EDMS EDMS 08:45 08:45 CBC+H.LAB.BRZ ordered. EDMS EDMS 08:45 08:45 HEPATIC FUNCTION+C.LAB.BRZ ordered. EDMS EDMS 08:45 08:45 PROBNP+C.LAB.BRZ ordered. EDMS EDMS 08:45 08:45 PROTIME (+INR)+COAG.LAB.BRZ ordered. EDMS EDMS 08:45 08:45 Troponin High Sensitivity+C.LAB.BRZ ordered. EDMS EDMS 11:04 11:04 Home rn rn 11:04 11:04 new rn rn 11:04 11:04 have improved rn rn 11:04 11:04 Stable rn rn 11:04 11:04 Chest pain, unspecified rn rn 11:04 Dyspnea, unspecified rn rn 11:04 End stage renal disease rn rn 18: 11:05 rn bc6
--- NOTE | 2024-11-19 11:05 | ER ---
Nurse's Notes [facility] Name: Natan Paulino Age: 64 yrs Sex: Male : 1960 Arrival Date: 11/19/2024 Time: 08:32 Bed 5 Private MD: Diagnosis: Chest pain, unspecified;Dyspnea, unspecified;End stage renal disease Presentation: 11/19 08:45 Chief complaint: Patient states: CP, SOB started this AM. Coronavirus screen: Client ll1 denies travel out of the [place] in the last 14 days. At this time, the client does not indicate any symptoms associated with coronavirus-19. Ebola Screen: Patient denies travel to an Ebola-affected area in the 21 days before illness onset. Initial Sepsis Screen: Does the patient meet any 2 criteria? No. Patient's initial sepsis screen is negative. Does the patient have a suspected source of infection? No. Patient's initial sepsis screen is negative. Risk Assessment: Do you want to hurt yourself or someone else? Patient reports no desire to harm self or others. Onset of symptoms was November 19, 2024. 08:45 Method Of Arrival: Ambulatory 1 08:45 Acuity: NINO 3 ll1 Triage Assessment: 08:45 General: Appears in no apparent distress. comfortable, Behavior is calm, cooperative, bp appropriate for age. Pain: Complains of pain in chest. EENT: No deficits noted. Neuro: No deficits noted. Cardiovascular: Reports chest pain. Respiratory: No deficits noted. GI: No signs and/or symptoms were reported involving the gastrointestinal system. : No signs and/or symptoms were reported regarding the genitourinary system. Derm: No deficits noted. Musculoskeletal: No deficits noted. Historical: - Allergies: 08:45 PENICILLINS; ll1 - PMHx: 08:45 Atrial fibrillation; CHF; Gout; Hypertension; kidney disease; Myocardial infarction; ll1 osteoarthritis; Pancreatitis; Rheumatoid Arthritis; stroke; TIA; - PSHx: 08:45 finger; heart stent; Stented artery; ll1 - Immunization history:: Adult Immunizations up to date. - Social history:: Smoking status: Patient denies any tobacco usage or history of. - Family history:: not pertinent. - Hospitalizations: : No recent hospitalization is reported. Screenin:42 Abuse screen: Denies threats or abuse. Denies injuries from another. Nutritional ss screening: No deficits noted. Tuberculosis screening: Never had TB. Assessment: 09:42 General: Appears in no apparent distress. Behavior is calm, cooperative, Denies fever, ss feeling ill. Pain: Complains of pain in anterior aspect of left upper chest Pain currently is 8 out of 10 on a pain scale. Quality of pain is described as aching, pt states, "It's my hematoma. It hurts. They are waiting for it to go down to do my defibrillator." Is continuous. Neuro: Level of Consciousness is awake, alert, obeys commands, Oriented to person, place, time, situation. Respiratory: Airway is patent Respiratory effort is even, unlabored, Respiratory pattern is regular, symmetrical. Respiratory: Breath sounds are clear bilaterally. GI: Patient currently denies diarrhea, nausea, vomiting. EENT: Oral mucosa is moist. 09:46 Cardiovascular: Quiton catheter to R anterior chest wall. ss 11:06 Reassessment: Decision to admit at this time. Pt notified by Dr. Jha. Awaiting for hospitalist to see pt and place admission orders. 14:05 Reassessment: Patient appears in no apparent distress at this time. Pt requesting pain ss medication. Awaiting hospitalist to come evaluate pt and give additional orders. PT verbalizes understanding of plan. Call light remains within reach. 15:00 Reassessment: called Dr. Cerrato to place admission orders. ss 17:00 Reassessment: awaiting room assignment. ss 18:00 Reassessment: Patient appears in no apparent distress at this time. awaiting room ss assignment to be cleaned. Vital Signs: 08:45 BP 120 / 90; Pulse 82; Resp 16; Temp 97.1; Pulse Ox 100% on R/A; Pain 7/10; ll1 09:42 Pulse 86; ss 11:03 BP 131 / 92; Pulse 80; Resp 18; Pulse Ox 100% on R/A; Pain 8/10; ss 14:04 BP 135 / 99; Pulse 100; Resp 18; Pulse Ox 98% on R/A; Pain 8/10; ss 16:06 BP 126 / 89; Pulse 76; Resp 18; Temp 98.2(O); Pulse Ox 97% on R/A; Pain 3/10; ss 08:45 Pain Scale: Adult ll1 11:03 Pain Scale: Adult ss 14:04 Pain Scale: Adult ss 16:06 Pain Scale: Adult ss ED Course: 08:35 Patient arrived in ED. cj3 08:44 Eddy Jha MD is Attending Physician. rn 08:45 Arm band placed on. ll1 08:45 Initial lab(s) drawn, by ED staff, sent to lab. Inserted saline lock: 20 gauge in left bp antecubital area, using aseptic technique. Blood collected. Flushed with 10 mL NS. 08:46 Triage completed. ll1 09:33 Patient placed in an exam room, on a stretcher. ll1 09:34 XRAY Chest (1 view) In Process Unspecified. EDMS 09:42 Patient has correct armband on for positive identification. Bed in low position. ss environmental monitoring technician on. Pulse ox on. NIBP on. 09:42 Patient maintains SpO2 saturation greater than 95% on room air. ss 09:43 Martin Stevens, RADHIKA is Primary Nurse. bp 11:03 Abram Cerrato MD is Referral Physician. rn 11:04 Abram Cerrato MD is Hospitalizing Provider. rn 11:06 No provider procedures requiring assistance completed. Patient admitted, IV remains in ss place. Administered Medications: 10:03 Drug: HYDROmorphone IVP 0.5 mg IVP once Route: IVP; Site: left antecubital; bp 11:05 Follow up: Response: No adverse reaction bp 15:23 Drug: HYDROmorphone IVP 0.5 mg IVP once Route: IVP; Site: left antecubital; ss 15:53 Follow up: Response: No adverse reaction; Pain is decreased; RASS: Alert and Calm (0) Medication: 09:42 VIS not applicable for this client. ss Outcome: 11:04 Discharge ordered by . rn 11:05 Decision to Hospitalize by Provider. rn 11:06 Instructed on the need for admit, ss 18:35 Admitted to Med/surg accompanied by tech, via wheelchair, room 207, ss 18:35 Condition: good 18:36 Patient left the ED. ll1 Signatures: Dispatcher [employer] EDWI Eddy Jha MD MD rn Blanchard, Shelby, RN RN Martin Stevens RN RN bp Lewis, Lynsay, RN RN ll1 Radha Carlisle cj3 Corrections: (The following items were deleted from the chart) 18:50 14:48 Reassessment: No admission orders at this time. Called Dr. Cerrato requesting ss admission orders ss
[2024-11-19 19:02] VITALS: O2SAT 97
[2024-11-19 19:28] VITALS: BMI 26.1
[2024-11-19] MEDS ORDERED: EPOETIN ALFA 10,000 UNIT/ML VIAL IV SCH (20:00)
[2024-11-19] MEDS ORDERED: MIDODRINE HCL 5 MG TABLET PO SCH (20:00)
[2024-11-19] MEDS ORDERED: METOPROLOL TAR 50 MG TAB PO SCH (21:00)
[2024-11-19] MEDS: METOPROLOL TAR 25 MG TAB PO SCH (21:00)
[2024-11-19] MEDS: APIXABAN 2.5 MG TABLET PO SCH (21:00)
[2024-11-19] MEDS: METOPROLOL XL 25 MG TAB PO SCH (21:01)
[2024-11-19] MEDS: BUMETANIDE 1 MG TABLET PO SCH (21:01)
[2024-11-19] MEDS: ATORVASTATIN 20 MG TAB PO SCH (21:02)
[2024-11-19] MEDS: methocarbamoL 500 MG TAB PO SCH (21:02)
[2024-11-19] MEDS: HEPARIN 5000 UNIT/ML 1 ML VIAL SQ SCH (21:04)
[2024-11-19] MEDS: SACUBITRIL/VALSARTAN 49/51 MG TAB PO SCH (21:04)
[2024-11-19] MEDS: HYDROMORPHONE HCL 0.5 MG/0.5 ML INJ IV PRN (21:06)
[2024-11-20] MEDS: DIPHENHYDRAMINE 25 MG TAB/CAP PO ONE (04:03)
[2024-11-20 06:45] LABS: Absolute Eosinophils 0.2 K/uL (0-0.5); Absolute Lymphocytes (CBC) 0.9 K/uL (0.7-4.9); Absolute Monocytes 0.7 K/uL (0.1-1.3); Absolute Neutrophil 4.4 K/uL (1.8-8.0); Basophils % 0.7 % (0-1.3); Eosinophils % 2.7 % (0-4.4); Lymphocytes % 14.8 % (15.3-44.8); MCH 29.6 pg (27.0-35.0); MCHC 32.3 g/dL (32.0-36.0); MCV 91.7 fL (80-100); MPV 10.3 fL (7.6-11.3); Monocytes % 11.1 % (3.3-12.3); Neutrophils % 70.7 % (41.7-73.7); Nucleated Red Blood Cells % 0.5 % (0-0); Platelets 183 thou/uL (152-406); RBC Red Blood Cell Count 3.71 M/uL (4.33-5.43); Red Cell Distribution Width 19.6 % (12.1-15.2)
[2024-11-20 07:09] LABS: Anion Gap 14.9 mEq/L (5.0-15.0); Potassium 3.9 mEq/L (3.5-5.1)
[2024-11-20] MEDS: ATOVAQUONE 750 MG/5 ML PO SCH (09:00)
[2024-11-20] MEDS: CALCITROL 0.25 MCG CAP PO SCH (09:55)
[2024-11-20] MEDS: AMIODARONE HCL 200 MG TAB PO SCH (09:55)
[2024-11-20] MEDS: ASPIRIN EC 81 MG TAB PO SCH (09:55)
[2024-11-20] MEDS: FOLIC ACID 1 MG TABLET PO SCH (09:55)
[2024-11-20] MEDS: CALCIUM ACETATE 667 MG TAB PO SCH (09:56)
--- NOTE | 2024-11-20 12:45 | P.CNS ---
Date of Consult: 11/20/24 Chief Complaint: heart failure, elevated troponin History of Present Illness: Patient with PMH of combined heart failure, non ischemic in nature, ESRD on HD, presented with chest pain, worsening CARRION, SOB, denies any chest pain at time of interview and report chronic CARRION. Allergies Penicillins Allergy (Verified 10/27/22 21:16) Hives/Rash Home medications list reviewed: Yes Home Medications: Amiodarone HCl [Cordarone*] 200 mg PO DAILY 07/27/24 Atorvastatin Calcium [Lipitor] 20 mg PO BEDTIME 07/27/24 Folic Acid 1 mg PO DAILY 07/27/24 Metoprolol Succinate [Toprol Xl*] 1 tab PO BID 07/27/24 Sacubitril/Valsartan [Entresto 97 mg-103 mg Tablet] 1 tab PO BID 07/27/24 Apixaban [Eliquis *] 2.5 mg PO BID 10/16/24 Bumetanide [Bumex*] 2 tab PO BID 11/05/24 Calcium Acetate [Phoslo*] 1,334 mg PO TIDWM #180 tab 11/06/24 Epoetin [Retacrit] 10,000 unit IV EVERY HD vial 11/06/24 calcitrioL [Calcitriol] 0.5 mcg PO DAILY #30 cap 11/06/24 Atovaquone 1,500 mg PO DAILY 11/19/24 Midodrine HCl 10 mg PO DIRECTED 11/19/24 methocarbamoL [Methocarbamol] 500 mg PO QID 11/19/24 - Past Medical/Surgical History Diabetic: No -: HTN -: Systolic congestive 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 Rossi/ Dr. Cabral) -: CAD -: Mural thrombus-left ventricle-resolved, on Eliquis -: CVA/ TIA -: Hep C--rec'd treatment 08/2023 -: Cardiac stent placement July 2019 -: removal of L hand 5th digit -: Cardiac catheterization 08/2023 Psychosocial/ Personal History: Patient currently lives at home with his and is on disability due to heart condition. - Family History Father Medical History: Cancer, Liver disease Mother Medical History: GI disease, Other (see notes) Notes: NA - Social History Smoking Status: Unknown if ever smoked Alcohol use: No CD- Drugs: No Caffeine use: Yes Place of Residence: Home Review of Systems 10-point ROS is otherwise unremarkable Physical Examination Temp Pulse Resp BP Pulse Ox 97.6 F 66 16 113/79 100 11/20/24 12:00 11/20/24 12:00 11/20/24 12:00 11/20/24 12:00 11/20/24 12:00 General: Alert, In no apparent distress HEENT: Atraumatic, PERRLA, Mucous membr. moist/pink, EOMI, Sclerae nonicteric Neck: Supple, 2+ carotid pulse no bruit, No LAD, Without JVD or thyroid abnormality Respiratory: Clear to auscultation bilaterally, Normal air movement Cardiovascular: Regular rate/rhythm, Normal S1 S2 Gastrointestinal: Normal bowel sounds, No tenderness Musculoskeletal: No tenderness Integumentary: No rashes Neurological: Normal gait, Normal speech, Normal tone, Normal affect Lymphatics: No axilla or inguinal lymphadenopathy - Problems (1) Type 2 OH (myocardial infarction) Current Visit: Yes Status: Acute Plan: Patient always had chronic troponin elevation, most likely secondary to heart failure, ESRD Ingrid had a coronary angiogram done on 10/2024 that shown normal coronaries No further cardiac work up needed. (2) Chronic combined systolic and diastolic heart failure Current Visit: Yes Status: Acute Plan: continue metoprolol continue volume adjusment with dialysis continue Bumex, patient have very low urine output (3) Atrial fibrillation Current Visit: No Status: Acute Plan: continue amdiodarone and eliquis cardiology will sign off, please call with any questions.
--- NOTE | 2024-11-20 13:26 | EKG ---
Test Date: 2024-11-19 Test Time: 08:43:49 Train Electronic Technician: FLORY MEASUREMENT RESULTS: Intervals: Rate: 87 [place]: 232 QRSD: 148 QT: 430 QTc: 517 [place]: P: 52 [place]: 232 QRS: 95 T: 19 INTERPRETIVE STATEMENTS: Sinus rhythm with 1st degree AV block with premature supraventricular complexes Rightward axis Nonspecific intraventricular block Abnormal ECG Compared to ECG 11/04/2024 08:26:28 Right-axis deviation now present Ventricular premature complex(es) no longer present Electronically Signed On 11-20-24 13:19:27 CDT by Ted Rangel
--- NOTE | 2024-11-20 16:21 | P.CNS ---
Date of Consult: 11/20/24 Reason for Consult: ESRD, missed HD Requesting Physician: Abram Cerrato Chief Complaint: heart failure, elevated troponin History of Present Illness: Patient has an extensive complicated PMHx including severe, dilated non ischemic CMP, related complications, progressive renal dysfunction leading to dialysis dependent renal failure late last yr. Last HD was on . Pt had had recurrent admissions for various reasons. Pt apparently came in with shortness of breath and/or CP, he has chronic large troponin leak and has been seen by Cardiology. He was feeling better when seen earlier this AM Allergies Penicillins Allergy (Verified 10/27/22 21:16) Hives/Rash Home Medications: Amiodarone HCl [Cordarone*] 200 mg PO DAILY 07/27/24 Atorvastatin Calcium [Lipitor] 20 mg PO BEDTIME 07/27/24 Folic Acid 1 mg PO DAILY 07/27/24 Metoprolol Succinate [Toprol Xl*] 1 tab PO BID 07/27/24 Sacubitril/Valsartan [Entresto 97 mg-103 mg Tablet] 1 tab PO BID 07/27/24 Apixaban [Eliquis *] 2.5 mg PO BID 10/16/24 Bumetanide [Bumex*] 2 tab PO BID 11/05/24 Calcium Acetate [Phoslo*] 1,334 mg PO TIDWM #180 tab 11/06/24 Epoetin [Retacrit] 10,000 unit IV EVERY HD vial 11/06/24 calcitrioL [Calcitriol] 0.5 mcg PO DAILY #30 cap 11/06/24 Atovaquone 1,500 mg PO DAILY 11/19/24 Midodrine HCl 10 mg PO DIRECTED 11/19/24 methocarbamoL [Methocarbamol] 500 mg PO QID 11/19/24 - Past Medical/Surgical History Diabetic: No -: HTN -: Systolic congestive 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 Rossi/ Dr. Cabral) -: CAD -: Mural thrombus-left ventricle-resolved, on Eliquis -: CVA/ TIA -: Hep C--rec'd treatment 08/2023 -: Cardiac stent placement July 2019 -: removal of L hand 5th digit -: Cardiac catheterization 08/2023 Psychosocial/ Personal History: Patient currently lives at home with his and is on disability due to heart condition. - Family History Father Medical History: Cancer, Liver disease Mother Medical History: GI disease, Other (see notes) Notes: NA - Social History Smoking Status: Unknown if ever smoked Alcohol use: No CD- Drugs: No Caffeine use: Yes Place of Residence: Home Review of Systems General: Weakness Eyes: Unremarkable ENT: Unremarkable Respiratory: As per HPI Cardiovascular: As per HPI Gastrointestinal: Unremarkable Genitourinary: Unremarkable Musculoskeletal: Unremarkable Integumentary: Unremarkable Neurological: Unremarkable Physical Examination Temp Pulse Resp BP Pulse Ox 97.6 F 66 16 113/79 100 11/20/24 12:00 11/20/24 12:11/20/24 12:00 11/20/24 12:11/20/24 12:00 General: In no apparent distress, Other (chronically ill appearing) HEENT: Atraumatic, Normocephalic, Other (not on O2 when seen) Neck: Supple Respiratory: Normal air movement, Other (non tachypnec, no rales) Cardiovascular: Other (Non tachy, mostly regular) Gastrointestinal: Soft and benign, Non-distended, No tenderness Musculoskeletal: Other (Improved chronic LE edema, shins non tender) Integumentary: No rashes Neurological: Normal speech, Normal tone, Normal affect Conclusions/Impression: 1. ESRD, recently declared in the past 6 mo, after multiple prior BRIDGER/ARF episodes on underlying advanced CKD Stage IV 2nd to Type 1/2 CRS, other. S/p CVC exchange last mo, will plan for brief HD today to make up missed treatment yesterday 2. Stable metab profile 3. 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 Chronic troponin leak with current levels within range seen prev. Reports of no obstructive CAD on recent LHC, cont Entresto if BP allows but would lower dose Has been leaving at EDW at clinic, CXR does not show pulm edema, no overt decompensation 4. Chronic HTN with heart and kidney disease -f/u BP closely, has been in cardiogenic shock in the past, may not tolerate more afterload reduction, target BP < 130/80 otherwise
[2024-11-20] MEDS ORDERED: SACUBITRIL/VALSARTAN 49/51 MG TAB PO SCH (21:00)
[2024-11-23 09:37] VITALS: BP 121/77; TEMP 97.8
--- NOTE | 2024-11-26 14:11 | P.HP ---
Certification for Inpatient Patient admitted to: Inpatient With expected LOS: >2 Midnights Patient will require the following post-hospital care: None Practitioner: I am a practitioner with admitting privileges, knowledge of patient current condition, hospital course, and medical plan of care. Services: Services provided to patient in accordance with Admission requirements found in Title 42 Section 412.3 of the Code of Federal Regulations Patient History Date of Service: 11/19/24 Reason for admission: heart failure, elevated troponin History of Present Illness: Patient is a 64-year-old gentleman came to the hospital with shortness of breath. Patient has been compliant with his hemodialysis but unfortunately his oral intake has been Significantly increased. Patient decided to come into the hospital because he was having a hard time breathing. Spoke with Nephrology and plan is for hemodialysis in a.m.. Patient was admitted to the hospital for observation. Allergies Penicillins Allergy (Verified 10/27/22 21:16) Hives/Rash Home Medications: Amiodarone HCl [Cordarone*] 200 mg PO DAILY 07/27/24 Atorvastatin Calcium [Lipitor] 20 mg PO BEDTIME 07/27/24 Folic Acid 1 mg PO DAILY 07/27/24 Metoprolol Succinate [Toprol Xl*] 1 tab PO BID 07/27/24 Sacubitril/Valsartan [Entresto 97 mg-103 mg Tablet] 1 tab PO BID 07/27/24 Apixaban [Eliquis *] 2.5 mg PO BID 10/16/24 Bumetanide [Bumex*] 2 tab PO BID 11/05/24 Calcium Acetate [Phoslo*] 1,334 mg PO TIDWM #180 tab 11/06/24 Epoetin [Retacrit] 10,000 unit IV EVERY HD vial 11/06/24 calcitrioL [Calcitriol] 0.5 mcg PO DAILY #30 cap 11/06/24 Atovaquone 1,500 mg PO DAILY 11/19/24 Midodrine HCl 10 mg PO DIRECTED 11/19/24 methocarbamoL [Methocarbamol] 500 mg PO QID 11/19/24 - Past Medical/Surgical History Has patient received pneumonia vaccine in the past: Yes Diabetic: No -: HTN -: Systolic congestive 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 Rossi/ Dr. Cabral) -: CAD -: Mural thrombus-left ventricle-resolved, on Eliquis -: CVA/ TIA -: Hep C--rec'd treatment 08/2023 -: Cardiac stent placement July 2019 -: removal of L hand 5th digit -: Cardiac catheterization 08/2023 Psychosocial/ Personal History: Patient currently lives at home with his and is on disability due to heart condition. - Family History Father Medical History: Cancer, Liver disease Mother Medical History: GI disease, Other (see notes) Notes: NA - Social History Alcohol use: No CD- Drugs: No Caffeine use: Yes Place of Residence: Home Review of Systems 10-point ROS is otherwise unremarkable Physical Examination - Vital Signs Temperature: 97.8 F Blood Pressure: 121/77 Pulse: 68 Respirations: 16 Pulse Ox (%): 100 - Physical Exam General: Alert, In no apparent distress, Oriented x3 HEENT: Atraumatic, PERRLA, Mucous membr. moist/pink, EOMI, Sclerae nonicteric Neck: Supple, 2+ carotid pulse no bruit, No LAD, Without JVD or thyroid abnormality Respiratory: Crackles/rales Cardiovascular: Regular rate/rhythm, Normal S1 S2, No murmurs Gastrointestinal: Normal bowel sounds, Soft and benign, Non-distended, No tenderness Musculoskeletal: No clubbing, No tenderness, Swelling Integumentary: No rashes Neurological: Normal gait, Normal speech, Normal strength at 5/5 x4 extr, Normal tone, Normal affect Lymphatics: No axilla or inguinal lymphadenopathy Assessment & Plan - Problems (Diagnosis) (1) Chronic combined systolic and diastolic heart failure Status: Acute (2) Coronary artery disease Status: Acute (3) ESRD (end stage renal disease) Status: Acute (4) Fluid overload Status: Acute (5) Chronic alcoholism Status: Chronic (6) ETOH abuse Onset Date: 10/31/16 Status: Chronic (7) HTN (hypertension) Status: Chronic Qualifiers: Hypertension type: primary hypertension Qualified Code(s): I10 - Essential (primary) hypertension (8) History of gout Status: Chronic (9) Left bundle branch block Status: Chronic (10) Obesity (BMI 30.0-34.9) Status: Chronic - Plan Plan: 1. patient is fluid overloaded. Plan to hemodialyze. Consult to Nephrology. After hemodialysis anticipate patient should be stable for discharge. 2. CHF; continue monitoring cardiac status closely. Patient will be monitor on telemetry 3. History of gout; continue with allopurinol 4. gi DVT prophylaxis Discharge Plan: Home Plan to discharge in: 24 Hours - Advance Directives Does patient have a Living Will: Yes Does patient have a Durable POA for Healthcare: Yes - Code Status/Comfort Care Code Status Assessed: Yes Code Status: Full Code Critical Care: No Time Spent Managing PTS Care (In Minutes): 45
--- NOTE | 2024-11-26 14:15 | P.DS ---
Discharge Date: 11/20/24 Disposition: ROUTINE DISCHARGE Discharge Condition: GOOD Reason for Admission: heart failure, elevated troponin - Problems (1) Chronic combined systolic and diastolic heart failure Status: Acute (2) Coronary artery disease Status: Acute (3) ESRD (end stage renal disease) Status: Acute (4) Fluid overload Status: Acute (5) Chronic alcoholism Status: Chronic (6) ETOH abuse Onset Date: 10/31/16 Status: Chronic (7) HTN (hypertension) Status: Chronic Qualifiers: Hypertension type: primary hypertension Qualified Code(s): I10 - Essential (primary) hypertension (8) History of gout Status: Chronic (9) Left bundle branch block Status: Chronic (10) Obesity (BMI 30.0-34.9) Status: Chronic Brief History of Present Illness: Patient is a 64-year-old gentleman came to the hospital with shortness of breath. Patient has been compliant with his hemodialysis but unfortunately his oral intake has been Significantly increased. Patient decided to come into the hospital because he was having a hard time breathing. Spoke with Nephrology and plan is for hemodialysis in a.m.. Patient was admitted to the hospital for observation. Hospital Course: Patient has done well during hospital stay. Clinically, patient is much better. At this time, patient is stable for discharge home. Patient will follow-up with consultants and PCP as an outpatient. Ci Vital Signs/Physical Exam: Temp Pulse Resp BP Pulse Ox 97.8 F 68 16 121/77 100 11/26/24 14:10 11/26/24 14:10 11/26/24 14:10 11/26/24 14:10 11/26/24 14:10 General: Alert, In no apparent distress, Oriented x3 Respiratory: Clear to auscultation bilaterally, Normal air movement Cardiovascular: Regular rate/rhythm, Normal S1 S2 Laboratory Data at Discharge: WBC 6.20 thou/uL (4.3-10.9) 11/20/24 06:19 Hgb 11.0 g/dL (13.6-17.9) L D 11/20/24 06:19 Hct 34.0 % (39.6-49.0) L 11/20/24 06:19 Plt Count 183 thou/uL (152-406) 11/20/24 06:19 PT 15.4 SECONDS (10-13.0) H 11/19/24 09:58 INR 1.37 11/19/24 09:58 Sodium 139 mEq/L (136-145) 11/20/24 06:19 Potassium 3.9 mEq/L (3.5-5.1) 11/20/24 06:19 BUN 39 mg/dL (7-18) H 11/20/24 06:19 Creatinine 7.45 mg/dL (0.70-1.30) H 11/20/24 06:19 Glucose 96 mg/dL (74-106) 11/20/24 06:19 Total Bilirubin 1.8 mg/dL (0.2-1.0) H 11/19/24 09:58 AST 17 U/L (15-37) 11/19/24 09:58 ALT < 14 U/L (16-61) L 11/19/24 09:58 Alkaline Phosphatase 148 U/L (45-117) H 11/19/24 09:58 Triglycerides 98 mg/dL (<150) 11/20/24 06:19 Cholesterol 138 mg/dL (<200) 11/20/24 06:19 HDL Cholesterol 69 mg/dL (40-60) H 11/20/24 06:19 Cholesterol/HDL Ratio 2.00 11/20/24 06:19 Home Medications: Amiodarone HCl [Cordarone*] 200 mg PO DAILY 07/27/24 Atorvastatin Calcium [Lipitor] 20 mg PO BEDTIME 07/27/24 Folic Acid 1 mg PO DAILY 07/27/24 Metoprolol Succinate [Toprol Xl*] 1 tab PO BID 07/27/24 Sacubitril/Valsartan [Entresto 97 mg-103 mg Tablet] 1 tab PO BID 07/27/24 Apixaban [Eliquis *] 2.5 mg PO BID 10/16/24 Bumetanide [Bumex*] 2 tab PO BID 11/05/24 Calcium Acetate [Phoslo*] 1,334 mg PO TIDWM #180 tab 11/06/24 Epoetin [Retacrit] 10,000 unit IV EVERY HD vial 11/06/24 calcitrioL [Calcitriol] 0.5 mcg PO DAILY #30 cap 11/06/24 Atovaquone 1,500 mg PO DAILY 11/19/24 Midodrine HCl 10 mg PO DIRECTED 11/19/24 methocarbamoL [Methocarbamol] 500 mg PO QID 11/19/24 Physician Discharge Instructions: -DC IV and DC home -Follow-up with PCP in 1 to 2 weeks -Follow-up with Nephrology in 1 to 2 weeks -Please call Dr. Cerrato at [phone] if any questions regarding hospital stay -Please call nursing station at [phone] if any nursing or medication questions -Return to the emergency room if symptoms worsen Diet: Renal Activity: Fall precautions Followup: Anton Hayes DO [Primary Care Provider] - Time spent managing pt's care (in minutes): 35
--- NOTE | 2024-11-26 14:16 | P.PN ---
Subjective Date of Service: 11/26/24 Physical Examination - Vital Signs Temperature: 97.8 F Blood Pressure: 121/77 Pulse: 68 Respirations: 16 Pulse Ox (%): 100 - Physical Exam General: Alert, In no apparent distress, Oriented x3 Respiratory: Clear to auscultation bilaterally, Normal air movement Cardiovascular: Normal pulses, Normal S1 S2 Gastrointestinal: Normal bowel sounds, Hypoactive Musculoskeletal: No clubbing, No swelling, No contractures Integumentary: No rashes, No breakdown, No tenderness/swelling Neurological: Normal strength at 5/5 x4 extr, Normal tone Assessment & Plan - Problems (Diagnosis) (1) Chronic combined systolic and diastolic heart failure Status: Acute (2) Coronary artery disease Status: Acute (3) ESRD (end stage renal disease) Status: Acute (4) Fluid overload Status: Acute (5) Chronic alcoholism Status: Chronic (6) ETOH abuse Onset Date: 10/31/16 Status: Chronic (7) HTN (hypertension) Status: Chronic Qualifiers: Hypertension type: primary hypertension Qualified Code(s): I10 - Essential (primary) hypertension (8) History of gout Status: Chronic (9) Left bundle branch block Status: Chronic (10) Obesity (BMI 30.0-34.9) Status: Chronic - Plan Plan: 1. patient is fluid overloaded. Plan to hemodialyze. Consult to Nephrology. After hemodialysis anticipate patient should be stable for discharge. 2. CHF; continue monitoring cardiac status closely. Patient will be monitor on telemetry 3. History of gout; continue with allopurinol 4. gi DVT prophylaxis - Advance Directives Does patient have a Living Will: Yes Does patient have a Durable POA for Healthcare: Yes - Code Status/Comfort Care Code Status: Full Code
== END 2024-11-20 18:39 | disposition home or self-care (01) ==
LOC: ER 08:32 → ERHOLD 14:55 → 2ND 18:22
PROVIDERS: ADMIT Hospitalist; ATTEND Hospitalist
PROC: 5A1D70Z Performance of Urinary Filtration, Intermittent, Less than 6 Hours Per Day (ICD-10-PCS; principal; 2024-11-20)
DX: E87.70 Fluid overload, unspecified (principal); I21.A1 Myocardial infarction type 2; N18.6 End stage renal disease; I50.42 Chronic combined systolic (congestive) and diastolic (congestive) heart failure; R07.9 Chest pain, unspecified; R06.00 Dyspnea, unspecified; I48.11 Longstanding persistent atrial fibrillation; R79.89 Other specified abnormal findings of blood chemistry; I27.20 Pulmonary hypertension, unspecified; I25.10 Atherosclerotic heart disease of native coronary artery without angina pectoris; I10 Essential (primary) hypertension; M10.9 Gout, unspecified; I42.9 Cardiomyopathy, unspecified; F10.20 Alcohol dependence, uncomplicated; I44.7 Left bundle-branch block, unspecified; E66.9 Obesity, unspecified; Z68.34 Body mass index [BMI] 34.0-34.9, adult; Z79.01 Long term (current) use of anticoagulants; Z99.2 Dependence on renal dialysis; Z88.0 Allergy status to penicillin
CPT/HCPCS: 36415; 71045; 80048; 80061; 80076; 83880; 84484; 85025; 85610; 93005; 96374; 99285; J1171; J1644

== ENCOUNTER 2024-12-17 17:34 | Inpatient (IN) | payer OTHER ==
--- NOTE | 2024-12-17 18:49 | RAD REPORT ---
EXAMINATION: ONE VIEW CHEST XR CLINICAL INDICATION: PALPITATIONS TECHNIQUE: Frontal chest projection is submitted. Examination is limited by patient positioning and t echnique. COMPARISON: 11/19/2024 FINDINGS: Mild pulmonary edema is seen. Small bilateral pleural effusions. The heart is moderately enlarged in size. No displaced fractures identified. Right-sided venous catheters tip in the SVC. IMPRESSION: Mild CHF versus volume overload pattern is suspected.
[2024-12-17] MEDS ORDERED: NA CHLORIDE 0.9% 500 ML ONE (19:13)
[2024-12-17 19:33] LABS: Absolute Eosinophils 0.1 K/uL (0-0.5); Absolute Lymphocytes (CBC) 0.8 K/uL (0.7-4.9); Absolute Monocytes 0.5 K/uL (0.1-1.3); Absolute Neutrophil 3.3 K/uL (1.8-8.0); Basophils % 0.8 % (0-1.3); Eosinophils % 2.6 % (0-4.4); Hematocrit 41.7 % (39.6-49.0); Hemoglobin 13.6 g/dL (13.6-17.9); Lymphocytes % 16.6 % (15.3-44.8); MCH 28.7 pg (27.0-35.0); MCHC 32.6 g/dL (32.0-36.0); MCV 88.2 fL (80-100); MPV 10.9 fL (7.6-11.3); Monocytes % 10.1 % (3.3-12.3); Neutrophils % 69.9 % (41.7-73.7); Nucleated Red Blood Cells % 0.3 % (0-0); Platelets 98 thou/uL (152-406); RBC Red Blood Cell Count 4.73 M/uL (4.33-5.43); Red Cell Distribution Width 17.7 % (12.1-15.2)
[2024-12-17 19:35] LABS: PT Prothrombin Time 13.8 SECONDS (10-13.0); Protime INR 1.22
[2024-12-17 19:57] LABS: Albumin 3.2 g/dL (3.4-5.0); Albumin/Globulin Ratio 0.9 (1.1-1.8); Anion Gap 12.1 mEq/L (5.0-15.0); Bilirubin Direct 1.3 mg/dL (0-0.2); Bilirubin Indirect, Calculated 1.4 mg/dL (0.2-0.8); Bilirubin Total 2.7 mg/dL (0.2-1.0); Globulin 3.6 g/dL (2.3-3.5); Potassium 3.1 mEq/L (3.5-5.1); Protein, Total 6.8 g/dL (6.4-8.2); Thyroid Stimulating Hormone 0.543 uIU/mL (0.358-3.740)
[2024-12-17 20:00] LABS: Troponin High Sensitivity 646.8 pg/mL (<58.9)
[2024-12-17] MEDS ORDERED: MORPHINE 2 MG/ML SYR ONE (20:25)
[2024-12-17] MEDS ORDERED: ASPIRIN 81 MG CHEWABLE TABLET ONE (20:26)
[2024-12-17] MEDS ORDERED: HEPARIN/D5W 25,000 UNIT/500 ML BAG IV ONE (20:26)
--- NOTE | 2024-12-17 20:38 | EDPHYS ---
Physician Documentation [facility] Name: Natan Paulino Age: 64 yrs Sex: Male : 1960 Arrival Date: 12/17/2024 Time: 17:34 Bed 12 Private MD: ED Physician Brandon Masterson HPI: 12/17 17:48 This 64 yrs old Black Male presents to ER via Unassigned with complaints of cp Palpitations, Shortness Of Breath. 17:48 The patient presents with a history of heart racing. Context: The symptoms occur at cp rest. Onset: The symptoms/episode began/occurred yesterday. Duration: The patient or guardian reports a single episode, that is still ongoing, and unchanged. Associated signs and symptoms: Pertinent positives: chest pain, SOB, Pertinent negatives: fever, syncope, near-syncope. Severity of symptoms: in the emergency department the symptoms are unchanged despite home interventions. Historical: - Allergies: 17:50 PENICILLINS; jl7 - PMHx: 17:50 Atrial fibrillation; CHF; Gout; Hypertension; kidney disease; Myocardial infarction; jl7 osteoarthritis; Pancreatitis; Rheumatoid Arthritis; stroke; 17:51 Dialysis T-T-S; jl7 - PSHx: 17:50 finger; heart stent; Stented artery; jl7 - Immunization history:: Adult Immunizations unknown. - Infectious Disease History:: Denies. - Social history:: Smoking status: Patient denies any tobacco usage or history of. ROS: 17:50 Eyes: Negative for injury, pain, redness, and discharge, cp 17:50 Constitutional: Negative for body aches, chills, fever, 17:50 Cardiovascular: Positive for chest pain, palpitations, 17:50 Respiratory: Positive for shortness of breath, at rest. Exam: 17:50 ECG was reviewed by the Attending Physician. cp 17:55 Constitutional: The patient appears in no acute distress, alert, awake, cp non-diaphoretic, non-toxic, well developed, well nourished, uncomfortable, 17:55 Head/Face: Normocephalic, atraumatic. cp 17:55 Eyes: Periorbital structures: appear normal, Conjunctiva: normal, no exudate, no injection, Sclera: no appreciated abnormality, Lids and lashes: appear normal, bilaterally, 17:55 ENT: External ear(s): are unremarkable, Nose: is normal, Mouth: Lips: moist, Posterior pharynx: is normal, airway is patent, no erythema, no exudate, 17:55 Chest/axilla: Inspection: normal, Palpation: is normal, no crepitus, no tenderness, 17:55 Cardiovascular: Rate: normal, Rhythm: regular, Edema: is not appreciated, JVD: is not appreciated, 17:55 Respiratory: the patient does not display signs of respiratory distress, Respirations: normal, no use of accessory muscles, no retractions, labored breathing, is not present, Breath sounds: are clear throughout, no decreased breath sounds, no stridor, no wheezing, 17:55 Abdomen/GI: Inspection: abdomen appears normal, Palpation: abdomen is soft and non-tender, in all quadrants, 17:55 Back: pain, is absent, ROM is normal, 17:55 Neuro: Orientation: to person, place \T\ time. Mentation: is normal, Motor: moves all fours, strength is normal, Sensation: is normal, Vital Signs: 17:48 Pulse 81; Resp 15; Temp 97.9; Pulse Ox 100% ; Weight 89.36 kg; Height 6 ft. 3 in. ; jl7 Pain 4/10; 19:24 BP 101 / 71; Pulse 77; Resp 16; Temp 97.8; Pulse Ox 100% ; rk3 20:58 BP 104 / 68; Pulse 77; Resp 18; Pulse Ox 96% ; Pain 0/10; jp4 22:05 BP 104 / 79; Pulse 74; Resp 18; Pulse Ox 100% ; kl 17:48 Body Mass Index 24.62 (89.36 kg, 190.5 cm) jl7 17:48 Pain Scale: Adult jl7 20:58 Pain Scale: Adult jp4 20:58 Patient very pleasant at this time. Voice no needs or concerns. Awaiting further jp4 instructions and updates from the physicians MDM: 17:45 Medical Screening Exam initiated deejay 19:00 Differential diagnosis: arrythmia, dehydration, stress disorder, acute PR. cp 20:20 Data reviewed: vital signs, nurses notes, lab test result(s), EKG, radiologic studies, cp plain films, and as a result, I will admit patient. 20:20 Management of patient was discussed with the following: Charge Poster: DR Alwash will cp consult for cardiology and requests heparin drip to be initiated. Patient to be admitted to hospitalist, DR Dillon, after discussion. I considered the following discharge prescriptions or medication management in the emergency department Medications were administered in the Emergency Department. See MAR. Independent interpretation of the following test(s) in the Emergency Department EKG: See my EKG interpretation above. 12/17 17:47 Order name: Basic Metabolic Panel; Complete Time: 20:05 [facility] 12/17 20:05 Interpretation: Normal except: K 3.1; CRE 3.97; GFR 16. cp 12/17 17:47 Order name: CBC with Diff; Complete Time: 20:05 [facility] 12/17 20:06 Interpretation: Normal except: PLT 98; RDW 17.7. cp 12/17 17:47 Order name: LFT's; Complete Time: 20:05 [facility] 12/17 20:06 Interpretation: Normal except: ALT 15; ALK 129; BILIT 2.7; BILID 1.3; IBILI, CALC 1.4; cp ALB 3.2; GLOB 3.6; A/G 0.9. 12/17 17:47 Order name: Magnesium; Complete Time: 20:05 [facility] 12/17 17:47 Order name: NT PRO-BNP; Complete Time: 20:05 [facility] 12/17 20:06 Interpretation: Abnormal: NT PRO-BNP 94357. cp 12/17 17:47 Order name: PT-INR; Complete Time: 20:05 [facility] 12/17 17:47 Order name: Troponin HS; Complete Time: 20:05 [facility] 12/17 20:06 Interpretation: Reviewed. 12/17 17:47 Order name: UA W/ Microscopic [facility] 12/17 17:47 Order name: Lipase; Complete Time: 20:05 [facility] 12/17 17:47 Order name: TSH; Complete Time: 20:05 [facility] 12/17 21:17 Order name: CBC with Automated Diff EDMS 12/17 21:17 Order name: CBC with Automated Diff EDMS 12/17 21:17 Order name: Comprehensive Metabolic Panel EDMS 12/17 21:17 Order name: Comprehensive Metabolic Panel EDMS 12/17 21:17 Order name: Troponin High Sensitivity EDMS 12/17 21:17 Order name: Troponin High Sensitivity EDMS 12/17 21:17 Order name: Troponin High Sensitivity EDMS 12/17 21:17 Order name: Troponin High Sensitivity EDMI 12/18 00:39 Order name: Ptt, Activated kmf 12/18 01:25 Order name: PTT, Activated Partial Thromb EDMS 12/17 17:47 Order name: XRAY Chest (1 view); Complete Time: 20:05 [facility] 12/17 17:47 Order name: Cardiac monitoring; Complete Time: 19:21 [facility] 12/17 17:47 Order name: EKG - Nurse/Tech; Complete Time: 17:53 [facility] 12/17 17:47 Order name: IV Saline Lock; Complete Time: 19:21 [facility] 12/17 17:47 Order name: Labs collected and sent; Complete Time: 19:21 [facility] 12/17 17:47 Order name: O2 Per Protocol; Complete Time: 19: [facility] 12/17 17:47 Order name: O2 Sat Monitoring; Complete Time: 19:21 [facility] 12/17 20:17 Order name: Misc. Order: hold Eliquis; Complete Time: 20:23 cp EC:50 Rate is 81 beats/min. Rhythm is regular. NJ interval is prolonged at 248 msec. QRS cp interval is prolonged at 148 msec. QT interval is normal. T waves are Inverted in lead aVL. Interpreted by me. Reviewed by me. Administered Medications: 19:22 Discontinued: ns 0.9% 500 ml 500 ml IV at 1 bolus once; to be given as a bolus over 30 cp minutes 19:18 Drug: NS 0.9% IV 500 ml 500 ml IV at 1 bolus once; to be given as a bolus over 30 kb3 minutes Volume: 500 ml; Route: IV; Rate: 1 bolus; Site: left antecubital; 21:03 Follow up: Response: No adverse reaction jp4 20:43 Drug: Heparin (PR Drip) 12 units/kg/hr - ([place] [address] units, D5W IV 500 ml) IV at jp4 calculated rate Per protocol; Max initial rate 1000 units/hr {Co-Signature: kb3 (Elsy Cheema RN).} {Note: 89.5 kg*12 units = 1074 ----- max dose 1000 units per hour.} Route: IV; Rate: 1000 units/hr; Site: left antecubital; 21:02 Follow up: Response: No adverse reaction; Rate change 20 ml/hr jp4 20:45 Drug: morphine IVP or IV 2 mg IVP once over 4 mins Route: IVP; Infused Over: 4 mins; jp4 Site: left antecubital; 21:02 Follow up: Response: Pain is decreased jp4 20:46 Drug: Aspirin PO Chewable Tablet 324 mg PO once; 81 mg tablets x 4 Route: PO; jp4 22:23 Follow up: Response: No adverse reaction 22:15 Drug: fentaNYL (PF) IVP 25 mcg IVP once Route: IVP; Site: left antecubital; kl Disposition Summary: 12/17/24 20:37 Hospitalization Ordered Notes: Hospitalization Status: Inpatient Admission cp Provider: Julio Dillon cp Location: Telemetry/MedSurg (Inpatient) cp Condition: Stable cp Problem: new cp Symptoms: have improved cp Bed/Room Type: Standard Room Assignment: [facility](12/18/24 00:01) Diagnosis - Subsequent non-ST elevation (NSTEMI) myocardial infarction cp - Palpitations cp - Angina pectoris, unspecified cp Forms: - Medication Reconciliation Form cp - SBAR form cp - Leadership Thank You Letter cp Critical care time excluding procedures: 12/19 01:59 Critical care time: Bedside Care: 7 minutes, Consultation: 25 minutes. Total time: 32 cp minutes Addendum: 12/20/2024 22:46 Co-signature as Attending Physician, Brandon Masterson MD I agree with the assessment and c lira plan of care. Signatures: Dispatcher [employer] EDYee Miller RN RN kl Anderson, Corey, MD MD cha Page, Corey, PA PA cp Hilary Garza RN RN jl7 Elsy Cheema RN RN kb3 Moisés Levine RN RN jp4 Elsy Cheema RN kb3 Corrections: (The following items were deleted from the chart) 12/17 17:52 17:50 PMHx: TIA; jl7 jl7 17:52 17:50 PMHx: Dialysis; T-T-S (December 17, 2024); vidya jlAnyi 17:52 17:50 PMHx: Dialysis (TIA); jl7 jl7 12/18 00:01 12/17 20:37 cp
--- NOTE | 2024-12-17 20:38 | ER ---
Nurse's Notes [facility] Name: Natan Paulino Age: 64 yrs Sex: Male : 1960 Arrival Date: 12/17/2024 Time: 17:34 Bed 12 Private MD: Diagnosis: Subsequent non-ST elevation (NSTEMI) myocardial infarction;Palpitations;Angina pectoris, unspecified Presentation: 12/17 17:48 Chief complaint: Patient states: palpitations and SOB since yesterday. Coronavirus jl7 screen: At this time, the client does not indicate any symptoms associated with coronavirus-19. Ebola Screen: No symptoms or risks identified at this time. Initial Sepsis Screen: Does the patient meet any 2 criteria? No. Patient's initial sepsis screen is negative. Does the patient have a suspected source of infection? No. Patient's initial sepsis screen is negative. Risk Assessment: Do you want to hurt yourself or someone else? Patient reports no desire to harm self or others. Onset of symptoms was December 16, 2024. 17:48 Method Of Arrival: Ambulatory jl7 17:48 Acuity: NINO 2 jl7 Triage Assessment: 17:51 General: Appears in no apparent distress. uncomfortable, Behavior is calm, cooperative, jl7 appropriate for age. Pain: Complains of pain in anterior aspect of left upper chest Pain currently is 4 out of 10 on a pain scale. Cardiovascular: Rhythm is regular. Respiratory: Reports shortness of breath at rest Airway is patent Respiratory effort is even, unlabored, Respiratory pattern is regular, symmetrical, Onset: The symptoms/episode began/occurred yesterday, the patient has mild shortness of breath. Derm: Skin is pink, warm \T\ dry. Historical: - Allergies: 17:50 PENICILLINS; jl7 - PMHx: 17:50 Atrial fibrillation; CHF; Gout; Hypertension; kidney disease; Myocardial infarction; jl7 osteoarthritis; Pancreatitis; Rheumatoid Arthritis; stroke; 17:51 Dialysis T-T-S; jl7 - PSHx: 17:50 finger; heart stent; Stented artery; jl7 - Immunization history:: Adult Immunizations unknown. - Infectious Disease History:: Denies. - Social history:: Smoking status: Patient denies any tobacco usage or history of. Screenin:18 [facility] ED Fall Risk Assessment (Adult) History of falling in the last 3 months, kb3 including since admission No falls in past 3 months (0 pts) Confusion or Disorientation No (0 pts) Intoxicated or Sedated No (0 pts) Impaired Gait Yes (1 pt) Mobility Assist Device Used No (0 pt) Altered Elimination No (0 pt) Score/Fall Risk Level 0 - 2 = Low Risk Oriented to surroundings, Maintained a safe environment, Educated pt \T\ family on fall prevention, incl call for assistance when getting out of bed. Abuse screen: Denies threats or abuse. Denies injuries from another. Nutritional screening: No deficits noted. Tuberculosis screening: No symptoms or risk factors identified. Assessment: 19:18 Reassessment: Patient appears in no apparent distress at this time. General: Appears in kb3 no apparent distress. comfortable, Behavior is calm, cooperative. Cardiovascular: Rhythm is regular Parent/caregiver reports patient has had palpitations, shortness of breath. Respiratory: Airway is patent Trachea midline Respiratory effort is even, unlabored, Respiratory pattern is regular, Breath sounds are clear bilaterally. Vital Signs: 17:48 Pulse 81; Resp 15; Temp 97.9; Pulse Ox 100% ; Weight 89.36 kg; Height 6 ft. 3 in. ; jl7 Pain 4/10; 19:24 BP 101 / 71; Pulse 77; Resp 16; Temp 97.8; Pulse Ox 100% ; rk3 20:58 BP 104 / 68; Pulse 77; Resp 18; Pulse Ox 96% ; Pain 0/10; jp4 22:05 BP 104 / 79; Pulse 74; Resp 18; Pulse Ox 100% ; kl 17:48 Body Mass Index 24.62 (89.36 kg, 190.5 cm) jl7 17:48 Pain Scale: Adult jl7 20:58 Pain Scale: Adult jp4 20:58 Patient very pleasant at this time. Voice no needs or concerns. Awaiting further jp4 instructions and updates from the physicians ED Course: 17:36 Patient arrived in ED. cj3 17:45 Brandon Masterson MD is Attending Physician. deejay 17:48 Brandon Patel PA is PHCP. cp 17:49 Triage completed. jl7 17:51 Arm band placed on right wrist. jl7 17:53 EKG done, by ED staff, reviewed by Brandon DURHAM. jl7 18:41 XRAY Chest (1 view) In Process Unspecified. EDMS 19:18 Patient has correct armband on for positive identification. Placed in gown. Bed in low kb3 position. Call light in reach. Side rails up X 1. Provided Education on: POC. 19:18 No provider procedures requiring assistance completed. kb3 19:20 Initial lab(s) drawn, by me, sent to lab. Inserted saline lock: 20 gauge in left rk3 antecubital area, using aseptic technique. Blood collected. Flushed with 10 mL NS. 20:01 Notified Nurse Practitioner and/or Physician Pearl Fisherman of a critical lab result(s), kl troponin 687. 20:36 Julio Dillon MD is Hospitalizing Provider. cp 22:14 pt resting at this time. Awaiting bed assignment. No additional needs voiced at this 4 time. Administered Medications: 19:22 Discontinued: ns 0.9% 500 ml 500 ml IV at 1 bolus once; to be given as a bolus over 30 cp minutes 19:18 Drug: NS 0.9% IV 500 ml 500 ml IV at 1 bolus once; to be given as a bolus over 30 kb3 minutes Volume: 500 ml; Route: IV; Rate: 1 bolus; Site: left antecubital; 21:03 Follow up: Response: No adverse reaction jp4 20:43 Drug: Heparin (OK Drip) 12 units/kg/[place] - ([place] [address] units, D5W IV 500 ml) IV at jp4 calculated rate Per protocol; Max initial rate 1000 units/hr {Co-Signature: kb3 (Elsy Cheema RN).} {Note: 89.5 kg*12 units = 1074 ----- max dose 1000 units per hour.} Route: IV; Rate: 1000 units/hr; Site: left antecubital; 21:02 Follow up: Response: No adverse reaction; Rate change 20 ml/hr jp4 20:45 Drug: morphine IVP or IV 2 mg IVP once over 4 mins Route: IVP; Infused Over: 4 mins; jp4 Site: left antecubital; 21:02 Follow up: Response: Pain is decreased jp4 20:46 Drug: Aspirin PO Chewable Tablet 324 mg PO once; 81 mg tablets x 4 Route: PO; jp4 22:23 Follow up: Response: No adverse reaction 22:15 Drug: fentaNYL (PF) IVP 25 mcg IVP once Route: IVP; Site: left antecubital; Medication: 19:18 VIS not applicable for this client. kb3 Outcome: 20:37 Decision to Hospitalize by Provider. krish 12/18 02:44 Admitted to Tele accompanied by nurse, via stretcher, room 427, on monitor, kl Condition: stable Instructed on the need for admit, 02:45 Patient left the ED. Signatures: Dispatcher [employer] EDYee Miller, RN RN Brandon Larry MD MD cha Page, Corey, PA PA Hilary Schreiber, RN RN pedro7 Elsy Cheema, RN RN kb3 Moisés Levine, RN RN jp4 Morgan Swartz rk3 Radha Carlisle 3 Elsy Cheema RN kb3 Corrections: (The following items were deleted from the chart) 12/17 17:52 17:50 PMHx: TIA; jl7 jl7 17:52 17:50 PMHx: Dialysis; T-T-S (December 17, 2024); vidya jl7 17:52 17:50 PMHx: Dialysis (TIA); vidya jl7
--- NOTE | 2024-12-17 21:12 | P.HP ---
Certification for Inpatient Patient admitted to: Inpatient With expected LOS: >2 Midnights Practitioner: I am a practitioner with admitting privileges, knowledge of patient current condition, hospital course, and medical plan of care. Services: Services provided to patient in accordance with Admission requirements found in Title 42 Section 412.3 of the Code of Federal Regulations Patient History Date of Service: 12/18/24 Reason for admission: NSTEMI History of Present Illness: 64 yrs old female with past medical history of hypertension, hyperlipidemia, atrial fibrillation, coronary artery disease, status post PCI, ESRD on dialysis, history of gout, history of pancreatitis, rheumatoid arthritis, history of CVA who was brought to ER with palpitations and shortness of breath. Patient noted history of heart racing and was brought to ER. Patient complains of chest discomfort. No fever or chills. Patient was assessed in the ER and was admitted for further management of chest pain rule out ACS and NSTEMI. Allergies Penicillins Allergy (Verified 10/27/22 21:16) Hives/Rash Home medications list reviewed: Yes Home Medications: Amiodarone HCl [Cordarone*] 200 mg PO DAILY 07/27/24 Atorvastatin Calcium [Lipitor] 20 mg PO BEDTIME 07/27/24 Folic Acid 1 mg PO DAILY 07/27/24 Metoprolol Succinate [Toprol Xl*] 1 tab PO BID 07/27/24 Sacubitril/Valsartan [Entresto 97 mg-103 mg Tablet] 1 tab PO BID 07/27/24 Apixaban [Eliquis *] 2.5 mg PO BID 10/16/24 Bumetanide [Bumex*] 2 tab PO BID 11/05/24 Calcium Acetate [Phoslo*] 1,334 mg PO TIDWM #180 tab 11/06/24 Epoetin [Retacrit] 10,000 unit IV EVERY HD vial 11/06/24 calcitrioL [Calcitriol] 0.5 mcg PO DAILY #30 cap 11/06/24 Atovaquone 1,500 mg PO DAILY 11/19/24 Midodrine HCl 10 mg PO DIRECTED 11/19/24 methocarbamoL [Methocarbamol] 500 mg PO QID 11/19/24 - Past Medical/Surgical History Diabetic: No Past Medical History: Reviewed- Non-Contributory -: HTN -: Systolic congestive 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 Rossi/ Dr. Cabral) -: CAD -: Mural thrombus-left ventricle-resolved, on Eliquis -: CVA/ TIA -: Hep C--rec'd treatment 08/2023 Past Surgical History: Reviewed- Non-Contributory -: Cardiac stent placement July 2019 -: removal of L hand 5th digit -: Cardiac catheterization 08/2023 Psychosocial/ Personal History: Patient currently lives at home with his and is on disability due to heart condition. - Family History Father -: Cancer, Liver disease Mother -: GI disease, Other (see notes) Notes: NA - Social History Smoking Status: Former smoker Alcohol use: No CD- Drugs: No Caffeine use: Yes Review of Systems 10-point ROS is otherwise unremarkable Physical Examination - Vital Signs Temperature: 98.2 F Blood Pressure: 138/76 Pulse: 66 Respirations: 18 Pulse Ox (%): 94 - Physical Exam General: Alert, Oriented x3, Mild distress HEENT: Atraumatic, Normocephalic Neck: Supple Respiratory: Clear to auscultation bilaterally, Normal air movement Cardiovascular: Regular rate/rhythm, Normal S1 S2 Capillary refill: <2 Seconds Gastrointestinal: Soft and benign, W/out hepatosplenomegaly Musculoskeletal: No clubbing, No swelling Integumentary: No rashes, No breakdown Neurological: Normal speech, Normal strength at 5/5 x4 extr Lymphatics: No axilla or inguinal lymphadenopathy - Studies Laboratory Data (last 24 hrs) 12/17/24 12/17/24 12/17/24 19:15 19:15 19:15 WBC 4.70 Hgb 13.6 Hct 41.7 Plt Count 98 L PT 13.8 H INR 1.22 Sodium 140 Potassium 3.1 L BUN 12 Creatinine 3.97 H Glucose 91 Magnesium 2.0 Total Bilirubin 2.7 H AST 18 ALT 15 L Alkaline Phosphatase 129 H Lipase 23 Assessment and Plan - Plan NSTEMI Will trend cardiac enzymes Will monitor telemetry Started on aspirin and statin EKG did not show any acute changes suggestive of ischemia Will get an echocardiogram Cardiology consult Started on heparin drip N.p.o. postmidnight Possible plan for heart cath in a.m. ESRD on dialysis Nephrology consulted Renal parameters monitored Hypertension Antihypertensives titrated Continue home medications and titrate as needed Hyperlipidemia Continue statin GI/DVT prophylaxis Advanced directive full code Discharge Plan: Home Plan to discharge in: 48 Hours - Advance Directives Does patient have a Living Will: Yes Does patient have a Durable POA for Healthcare: Yes - Code Status/Comfort Care Code Status: Full Code Time Spent Managing Pts Care (In Minutes): 48
[2024-12-17] MEDS ORDERED: ACETAMINOPHEN 325 MG TABLET PO PRN (21:13)
[2024-12-17] MEDS ORDERED: ONDANSETRON 4 MG/2 ML VIAL IV PRN (21:13)
[2024-12-17] MEDS ORDERED: FENTANYL CITR 100 MCG/2 ML ONE (22:07)
[2024-12-17] MEDS ORDERED: MIDODRINE HCL 5 MG TABLET PO SCH (23:30)
[2024-12-18] MEDS ORDERED: HEPARIN/D5W 25,000 UNIT/500 ML BAG IV PRN (01:34)
[2024-12-18 02:43] VITALS: BMI 24.6
[2024-12-18] MEDS: MORPHINE 2 MG/ML SYR IV PRN (02:47)
[2024-12-18] MEDS: HYDROMORPHONE HCL 0.5 MG/0.5 ML INJ IV PRN (04:33)
[2024-12-18 05:12] LABS: Absolute Basophils 0.1 K/uL (0-0.5); Absolute Eosinophils 0.1 K/uL (0-0.5); Absolute Lymphocytes (CBC) 0.9 K/uL (0.7-4.9); Absolute Monocytes 0.5 K/uL (0.1-1.3); Absolute Neutrophil 2.8 K/uL (1.8-8.0); Basophils % 1.3 % (0-1.3); Eosinophils % 2.7 % (0-4.4); Hematocrit 39.1 % (39.6-49.0); Hemoglobin 12.6 g/dL (13.6-17.9); Lymphocytes % 20.3 % (15.3-44.8); MCH 28.6 pg (27.0-35.0); MCHC 32.2 g/dL (32.0-36.0); MCV 88.8 fL (80-100); MPV 10.9 fL (7.6-11.3); Neutrophils % 63.7 % (41.7-73.7); Nucleated Red Blood Cells % 0.3 % (0-0); Platelets 89 thou/uL (152-406); Red Cell Distribution Width 18.2 % (12.1-15.2)
[2024-12-18 05:36] LABS: AST/SGOT 13 U/L (15-37); Albumin 2.9 g/dL (3.4-5.0); Albumin/Globulin Ratio 0.9 (1.1-1.8); Alkaline Phosphatase 120 U/L (45-117); Anion Gap 11.9 mEq/L (5.0-15.0); BUN Blood Urea Nitrogen 16 mg/dL (7-18); Bicarbonate 26 mEq/L (21-32); Bilirubin Total 2.3 mg/dL (0.2-1.0); Globulin 3.3 g/dL (2.3-3.5); Glomerular Filtration Rate 14 ml/min (=/>90); Glucose Level 105 mg/dL (74-106); Potassium 2.9 mEq/L (3.5-5.1); Protein, Total 6.2 g/dL (6.4-8.2); Sodium Level 139 mEq/L (136-145)
[2024-12-18 05:44] LABS: ALT/SGPT < 14 U/L (16-61)
[2024-12-18 05:47] LABS: Troponin High Sensitivity 590.8 pg/mL (<58.9)
[2024-12-18 05:55] LABS: Band Neutrophils 5 % (0-1); Blood Morphology Comment NOTED (NOT SEEN); Differential Total Cells Count 100; Eosinophils 3 % (0-3); Hypochromasia 1+; Lymphocytes 25 % (15-42); Monocytes 4 % (0-10); Platelet Estimate DECR; Reactive Lymphocytes 2 %; Segmented Neutrophils 59 % (40-80); Teardrop Cell 1+
[2024-12-18] MEDS ORDERED: HYDROCORTISONE 1 % OINT 30GM TOP PRN (06:27)
[2024-12-18] MEDS: DIPHENHYDRAMINE 50 MG/ML VIAL IV PRN (06:53)
[2024-12-18] MEDS: METOPROLOL XL 25 MG TAB PO SCH (09:00)
[2024-12-18] MEDS ORDERED: BUMETANIDE 1 MG TABLET PO SCH (09:00)
[2024-12-18] MEDS: POTASSIUM 25 MEQ EFFERV TAB PO ONE (09:28)
[2024-12-18] MEDS: CALCIUM ACETATE 667 MG TAB PO SCH (09:28)
[2024-12-18] MEDS: methocarbamoL 500 MG TAB PO SCH (09:28)
[2024-12-18] MEDS: AMIODARONE HCL 200 MG TAB PO SCH (09:28)
[2024-12-18] MEDS: ASPIRIN EC 81 MG TAB PO SCH (09:28)
[2024-12-18] MEDS: CALCITROL 0.25 MCG CAP PO SCH (09:28)
[2024-12-18] MEDS: HYDROCODONE/APAP 5/325 MG TAB PO PRN (09:28)
[2024-12-18] MEDS: FOLIC ACID 1 MG TABLET PO SCH (09:29)
--- NOTE | 2024-12-18 11:43 | P.CNS ---
Date of Consult: 12/18/24 Reason for Consult: ESRD, hypokalemia, hypotension Requesting Physician: William Dillon Chief Complaint: NSTEMI History of Present Illness: Patient has an extensive complicated PMHx including severe, dilated non ischemic CMP, related complications, chronic troponin leak, chronic dyspnea, progressive renal dysfunction leading to dialysis dependent renal failure late last yr. Last HD was yesterday, lower BP on HD but completed HD session. Pt had had recurrent admissions for various reasons. Pt reports post HD fatigue, palpitations and weakness and presented to the ER. He feels fair this AM and denies CP or acute dyspnea, no N/V/D. Allergies Penicillins Allergy (Verified 10/27/22 21:16) Hives/Rash Home Medications: Amiodarone HCl [Cordarone*] 200 mg PO DAILY 07/27/24 Atorvastatin Calcium [Lipitor] 20 mg PO BEDTIME 07/27/24 Folic Acid 1 mg PO DAILY 07/27/24 Metoprolol Succinate [Toprol Xl*] 1 tab PO BID 07/27/24 Sacubitril/Valsartan [Entresto 97 mg-103 mg Tablet] 1 tab PO BID 07/27/24 Apixaban [Eliquis *] 2.5 mg PO BID 10/16/24 Bumetanide [Bumex*] 2 tab PO BID 11/05/24 Calcium Acetate [Phoslo*] 1,334 mg PO TIDWM #180 tab 11/06/24 Epoetin [Retacrit] 10,000 unit IV EVERY HD vial 11/06/24 calcitrioL [Calcitriol] 0.5 mcg PO DAILY #30 cap 11/06/24 Atovaquone 1,500 mg PO DAILY 11/19/24 Midodrine HCl 10 mg PO DIRECTED 11/19/24 methocarbamoL [Methocarbamol] 500 mg PO QID 11/19/24 Bumetanide 2 mg PO BID 12/18/24 predniSONE [Deltasone*] 30 mg PO DAILY 12/18/24 - Past Medical/Surgical History Diabetic: No -: HTN -: Systolic congestive 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 Rossi/ Dr. Cabral) -: CAD -: Mural thrombus-left ventricle-resolved, on Eliquis -: CVA/ TIA -: Hep C--rec'd treatment 08/2023 -: Cardiac stent placement July 2019 -: removal of L hand 5th digit -: Cardiac catheterization 08/2023 Psychosocial/ Personal History: Patient currently lives at home with his and is on disability due to heart condition. - Family History Father Medical History: Cancer, Liver disease Mother Medical History: GI disease, Other (see notes) Notes: NA - Social History Smoking Status: Unknown if ever smoked Alcohol use: No CD- Drugs: No Caffeine use: Yes Review of Systems General: Weakness Eyes: Unremarkable ENT: Unremarkable Respiratory: Unremarkable Cardiovascular: As per HPI Gastrointestinal: Unremarkable Genitourinary: Unremarkable Musculoskeletal: Unremarkable Integumentary: Unremarkable Neurological: Unremarkable Physical Examination Temp Pulse Resp BP Pulse Ox 97.5 F 77 12 97/86 98 12/18/24 08:00 12/18/24 08:00 12/18/24 08:00 12/18/24 08:00 12/18/24 08:00 General: In no apparent distress, Cachectic, Other (Appears chronically ill) HEENT: Atraumatic, Normocephalic Neck: Supple Respiratory: Other (No rhonchi or wheezing) Cardiovascular: Other (Non tachy, no cardiac gallop heart sounds appreciated) Gastrointestinal: Soft and benign, Non-distended, No tenderness Musculoskeletal: No swelling, No contractures Integumentary: No rashes, No erythema Neurological: Normal speech, Normal tone, Normal affect Laboratory Data (last 24 hrs) 12/17/24 12/17/24 12/17/24 19:15 19:15 19:15 WBC 4.70 Hgb 13.6 Hct 41.7 Plt Count 98 L PT 13.8 H INR 1.22 Sodium 140 Potassium 3.1 L BUN 12 Creatinine 3.97 H Glucose 91 Magnesium 2.0 Total Bilirubin 2.7 H AST 18 ALT 15 L Alkaline Phosphatase 129 H Lipase 23 Conclusions/Impression: 1. 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 Dialyzed yesterday, no emergent indication for HD today 2. Hypokalemia, post HD. Will seek to replete with PO KCL. Will review dialysate K as OP. Mg level ok 3. 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 Chronic troponin leak. Reports of no obstructive CAD on prior LHC, lower BP and renal failure state prevents addition of other GDMT 4. Chronic HTN with heart and kidney disease now with hypotension -f/u BP closely, has been in cardiogenic shock in the past, can cautiously try low dose Midodrine with holding parameters for BP support on HD, other. F/u Cardiology reccs
[2024-12-18] MEDS: MIDODRINE HCL 5 MG TABLET PO SCH (12:00)
--- NOTE | 2024-12-18 15:47 | P.CNS ---
Date of Consult: 12/18/24 Chief Complaint: NSTEMI History of Present Illness: Patient with PMH of ESRD on HD, advanced combined heart failure, non ischemic in nature, AF, presented with worsening SOB and CARRION, denies chest pain, report palpitations, no syncope. Allergies Penicillins Allergy (Verified 10/27/22 21:16) Hives/Rash Home medications list reviewed: Yes Home Medications: Amiodarone HCl [Cordarone*] 200 mg PO DAILY 07/27/24 Atorvastatin Calcium [Lipitor] 20 mg PO BEDTIME 07/27/24 Folic Acid 1 mg PO DAILY 07/27/24 Metoprolol Succinate [Toprol Xl*] 1 tab PO BID 07/27/24 Sacubitril/Valsartan [Entresto 97 mg-103 mg Tablet] 1 tab PO BID 07/27/24 Apixaban [Eliquis *] 2.5 mg PO BID 10/16/24 Bumetanide [Bumex*] 2 tab PO BID 11/05/24 Calcium Acetate [Phoslo*] 1,334 mg PO TIDWM #180 tab 11/06/24 Epoetin [Retacrit] 10,000 unit IV EVERY HD vial 11/06/24 calcitrioL [Calcitriol] 0.5 mcg PO DAILY #30 cap 11/06/24 Atovaquone 1,500 mg PO DAILY 11/19/24 Midodrine HCl 10 mg PO DIRECTED 11/19/24 methocarbamoL [Methocarbamol] 500 mg PO QID 11/19/24 Bumetanide 2 mg PO BID 12/18/24 predniSONE [Deltasone*] 30 mg PO DAILY 12/18/24 - Past Medical/Surgical History Diabetic: No -: HTN -: Systolic congestive 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 Rossi/ Dr. Cabral) -: CAD -: Mural thrombus-left ventricle-resolved, on Eliquis -: CVA/ TIA -: Hep C--rec'd treatment 08/2023 -: Cardiac stent placement July 2019 -: removal of L hand 5th digit -: Cardiac catheterization 08/2023 Psychosocial/ Personal History: Patient currently lives at home with his and is on disability due to heart condition. - Family History Father Medical History: Cancer, Liver disease Mother Medical History: GI disease, Other (see notes) Notes: NA - Social History Smoking Status: Unknown if ever smoked Alcohol use: No CD- Drugs: No Caffeine use: Yes Review of Systems 10-point ROS is otherwise unremarkable Physical Examination Temp Pulse Resp BP Pulse Ox 97.6 F 60 17 105/81 98 12/18/24 12:00 12/18/24 12:00 12/18/24 12:00 12/18/24 12:00 12/18/24 12:00 General: Alert, In no apparent distress HEENT: Atraumatic, PERRLA, Mucous membr. moist/pink, EOMI, Sclerae nonicteric Neck: Supple, 2+ carotid pulse no bruit, No LAD, Without JVD or thyroid abnormality Respiratory: Clear to auscultation bilaterally, Normal air movement Cardiovascular: Normal S1 S2, Irregular heart rate/rhythm Gastrointestinal: Normal bowel sounds, No tenderness Musculoskeletal: No tenderness Integumentary: No rashes Neurological: Normal gait, Normal speech, Normal tone, Normal affect Lymphatics: No axilla or inguinal lymphadenopathy Laboratory Data (last 24 hrs) 12/17/24 12/17/24 12/17/24 19:15 19:15 19:15 WBC 4.70 Hgb 13.6 Hct 41.7 Plt Count 98 L PT 13.8 H INR 1.22 Sodium 140 Potassium 3.1 L BUN 12 Creatinine 3.97 H Glucose 91 Magnesium 2.0 Total Bilirubin 2.7 H AST 18 ALT 15 L Alkaline Phosphatase 129 H Lipase 23 - Problems (1) Acute on chronic combined systolic and diastolic heart failure Current Visit: No Status: Acute Plan: patient report that his urine output is usually very low continue volume adjustment through dialysis continue Bumex continue Toprol XL and Entresto patient usually follow up with cardiology no further inpatient cardiac work up needed. (2) Atrial fibrillation Current Visit: No Status: Acute Plan: patient is currently in AF, rate controlled continue Amiodarone 200 mg po daily continue Toprol XL 25 mg daily Continue Eliquis 2.5 mg po BID (3) NSTEMI (non-ST elevated myocardial infarction) Current Visit: No Status: Acute Plan: patient always had troponin elevation, it is chronic patient had a recent coronary angiogram that shown normal coronaries no further cardiac work up needed. (4) HTN (hypertension) Current Visit: No Status: Chronic Plan: continue his home medications Cardiology will sign off, please call with any questions. Qualifiers: Hypertension type: primary hypertension Qualified Code(s): I10 - Essential (primary) hypertension
--- NOTE | 2024-12-18 16:26 | EKG ---
Test Date: 2024-12-17 Test Time: 17:46:06 Polymer Scientist: AVE MEASUREMENT RESULTS: Intervals: Rate: 81 CA: 248 QRSD: 148 QT: 444 QTc: 515 Baxter: P: 47 CA: 248 QRS: -75 T: 91 INTERPRETIVE STATEMENTS: Sinus rhythm with 1st degree AV block with premature atrial complexes Left axis deviation Left bundle branch block Abnormal ECG Compared to ECG 11/19/2024 08:43:49 Left-axis deviation now present Left bundle-branch block now present Right-axis deviation no longer present Electronically Signed On 12-18-24 16:25:58 CDT by Ted Rangel
[2024-12-18] MEDS: ATORVASTATIN 40 MG TAB PO SCH (20:59)
[2024-12-19 07:31] LABS: Absolute Basophils 0.1 K/uL (0-0.5); Absolute Eosinophils 0.1 K/uL (0-0.5); Absolute Monocytes 0.6 K/uL (0.1-1.3); Absolute Neutrophil 3.6 K/uL (1.8-8.0); Eosinophils % 2.6 % (0-4.4); Hematocrit 37.8 % (39.6-49.0); Hemoglobin 12.5 g/dL (13.6-17.9); Lymphocytes % 18.7 % (15.3-44.8); MCH 29.3 pg (27.0-35.0); MCV 88.8 fL (80-100); MPV 11.4 fL (7.6-11.3); Monocytes % 10.5 % (3.3-12.3); Neutrophils % 67.2 % (41.7-73.7); Nucleated Red Blood Cells % 0.2 % (0-0); Platelets 77 thou/uL (152-406); RBC Red Blood Cell Count 4.26 M/uL (4.33-5.43); Red Cell Distribution Width 17.7 % (12.1-15.2)
[2024-12-19 07:40] LABS: Anion Gap 14.4 mEq/L (5.0-15.0); Potassium 3.4 mEq/L (3.5-5.1)
[2024-12-19] MEDS: NEPRO SHAKE 237 ML CAN PO SCH (09:00)
[2024-12-19] MEDS: BUMETANIDE 1 MG TABLET PO SCH (09:11)
[2024-12-19 09:38] VITALS: O2SAT 100
[2024-12-19] MEDS: POTASSIUM 25 MEQ EFFERV TAB PO ONE (10:03)
--- NOTE | 2024-12-19 12:19 | P.PN ---
Nephrology note (S) Pt seen lying in bed, NAD, reports some cough, appetite is low, off heparin gtt, Cardiology note reviewed, plan for HD discussed (O) Vitals reviewed in the EMR General: In no apparent distress, Cachectic, Other (Appears chronically ill) HEENT: Atraumatic, Normocephalic, off O2 Neck: Supple Respiratory: Other (No rhonchi or wheezing) Cardiovascular: Other (Non tachy, no cardiac gallop heart sounds appreciated) Gastrointestinal: Soft and benign, Non-distended, No tenderness Musculoskeletal: No swelling, No contractures Integumentary: No rashes, No erythema Neurological: Normal speech, Normal tone, Normal affect Laboratory Data (last 24 hrs) Reviewed in the EMR Conclusions/Impression: 1. 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 Dialyzed Thurs, gentle HD today per OP TTS schedule. Metab profile pre-HD shows no sig azotemia likely reflecting poor intake 2. Hypokalemia, post HD. Will seek to replete with PO KCL. Will review dialysate K as OP, will dialyze with higher K bath. Mg level ok 3. 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 Chronic troponin leak. Reports of no obstructive CAD on prior LHC, lower BP and renal failure state prevents addition of other GDMT as recommended by Cardiology Needs to f/u advanced HF team(s) at [facility] 4. Chronic HTN with heart and kidney disease now with hypotension -f/u BP closely, has been in cardiogenic shock in the past, can cautiously try low dose Midodrine with holding parameters for BP support on HD, other. F/u post HD BP If in stable condition post HD, may look to discharge as above issues are chronic Sonny Cabral MD, CHRISTOPHER
[2024-12-19] MEDS: MIDODRINE HCL 5 MG TABLET PO SCH (12:27)
[2024-12-19 12:45] VITALS: BP 96/78; TEMP 98.2
== END 2024-12-19 18:37 | disposition home or self-care (01) | DRG 280 ==
LOC: ER 17:34 → ERHOLD 21:13 → 4TH 12-18 00:17
PROVIDERS: ADMIT Family Medicine; ATTEND Hospitalist
PROC: 5A1D70Z Performance of Urinary Filtration, Intermittent, Less than 6 Hours Per Day (ICD-10-PCS; principal; 2024-12-19)
DX: I21.4 Non-ST elevation (NSTEMI) myocardial infarction (principal); I50.43 Acute on chronic combined systolic (congestive) and diastolic (congestive) heart failure; N18.6 End stage renal disease; I13.2 Hypertensive heart and chronic kidney disease with heart failure and with stage 5 chronic kidney disease, or end stage renal disease; R64 Cachexia; I42.0 Dilated cardiomyopathy; E78.5 Hyperlipidemia, unspecified; I48.91 Unspecified atrial fibrillation; E87.6 Hypokalemia; M06.9 Rheumatoid arthritis, unspecified; I27.22 Pulmonary hypertension due to left heart disease; I25.10 Atherosclerotic heart disease of native coronary artery without angina pectoris; I25.2 Old myocardial infarction; Z88.0 Allergy status to penicillin; Z99.2 Dependence on renal dialysis; Z95.1 Presence of aortocoronary bypass graft; Z68.24 Body mass index [BMI] 24.0-24.9, adult; Z95.5 Presence of coronary angioplasty implant and graft; Z79.52 Long term (current) use of systemic steroids; Z86.73 Personal history of transient ischemic attack (TIA), and cerebral infarction without residual deficits; Z79.01 Long term (current) use of anticoagulants; Z79.899 Other long term (current) drug therapy; Z87.891 Personal history of nicotine dependence
CPT/HCPCS: 36415; 71045; 80048; 80053; 80076; 83690; 83735; 83880; 84443; 84484; 85025; 85049; 85610; 85730; 90935; 93005; 94760; 96374; 96375; 99285; J1171; J1200; J1644; J2270; J3010; J7040

== ENCOUNTER 2025-03-14 20:58 | Inpatient (IN) | payer OTHER ==
[2025-03-14] MEDS ORDERED: FENTANYL CITR 100 MCG/2 ML ONE (21:48)
[2025-03-14 22:06] LABS: Absolute Lymphocytes (CBC) 1.3 K/uL (0.7-4.9); Hematocrit 34.5 % (39.6-49.0); Hemoglobin 11.2 g/dL (13.6-17.9); MCH 27.1 pg (27.0-35.0); MCHC 32.4 g/dL (32.0-36.0); MCV 83.6 fL (80-100); MPV 9.6 fL (7.6-11.3); Nucleated RBC Absolute Count 0.0 (0-0); Nucleated Red Blood Cells % 0.1 % (0-0); RBC Red Blood Cell Count 4.12 M/uL (4.33-5.43); White Blood Count 4.90 thou/uL (4.3-10.9)
[2025-03-14 22:15] LABS: PT Prothrombin Time 18.7 SECONDS (10-13.0); Protime INR 1.68
[2025-03-14 22:30] LABS: Differential Total Cells Count 100; Segmented Neutrophils 51 % (40-80)
[2025-03-14 22:31] LABS: Anisocytosis SLIGHT; Blood Morphology Comment NOTED (NOT SEEN); Ovalocytes SLIGHT
--- NOTE | 2025-03-14 22:47 | RAD REPORT ---
EXAM: Chest Single View HISTORY: 64 years Male CHEST PAIN COMPARISON: 01/05/2025 FINDINGS: LUNGS/PLEURA: Pulmonary vascular congestion. Probable small left pleural effusion. CARDIAC/MEDIASTINUM: Moderate cardiomegaly. UPPER ABDOMEN: No significant abnormality. BONES: No acute abnormality. LINES/TUBES/OTHER: Pacemaker/AICD. Right IJ approach dialysis catheter. IMPRESSION: Suspect mild pulmonary edema and small left effusion.
[2025-03-14 22:52] LABS: ALT/SGPT < 14 U/L (16-61); AST/SGOT 21 U/L (15-37); Albumin 2.5 g/dL (3.4-5.0); Albumin/Globulin Ratio 0.7 (1.1-1.8); Alkaline Phosphatase 124 U/L (45-117); Anion Gap 9.8 mEq/L (5.0-15.0); BUN Blood Urea Nitrogen 17 mg/dL (7-18); Bilirubin Indirect, Calculated 1.0 mg/dL (0.2-0.8); Globulin 3.8 g/dL (2.3-3.5); Glucose Level 81 mg/dL (74-106); Magnesium 2.1 mg/dL (1.6-2.4); NT PRO-BNP 95499 pg/mL (<125); Potassium 3.8 mEq/L (3.5-5.1)
[2025-03-14 22:54] LABS: Troponin High Sensitivity 482.9 pg/mL (<58.9)
--- NOTE | 2025-03-14 23:13 | ER ---
Nurse's Notes [facility] Name: Natan Paulino Age: 64 yrs Sex: Male : 1960 Arrival Date: 03/14/2025 Time: 20:58 Bed 18 Private MD: Diagnosis: Chest pain, unspecified;End stage renal disease;Hypotension, unspecified;Dyspnea Presentation: 03/14 21:05 Chief complaint: EMS states: chest pain and shortness of breath since yesterday. pt has ss12 some cardiac history and has pacemaker/defibrillator. pt vitally stable withe EMS. Spo2 100% RA. Blood sugar 84. Coronavirus screen: Client denies travel out of the [place] in the last 14 days. Ebola Screen: Patient negative for fever greater than or equal to 101.5 degrees Fahrenheit, and additional compatible Ebola Virus Disease symptoms Patient denies exposure to infectious person. Patient denies travel to an Ebola-affected area in the 21 days before illness onset. Initial Sepsis Screen: Does the patient meet any 2 criteria? No. Patient's initial sepsis screen is negative. Does the patient have a suspected source of infection? No. Patient's initial sepsis screen is negative. Risk Assessment: Do you want to hurt yourself or someone else? Patient reports no desire to harm self or others. 21:05 Method Of Arrival: EMS: [facility] 21:05 Acuity: NINO 3 [facility] 21:05 Onset of symptoms was March 12, 2025. [facility] Triage Assessment: 21:05 General: Appears in no apparent distress. comfortable, Behavior is calm, cooperative, ss12 quiet. Pain: Complains of pain in left supraclavicular area and left clavicle Pain does not radiate. Pain currently is 8 out of 10 on a pain scale. Quality of pain is described as aching, Pain began suddenly, Is intermittent. EENT: No deficits noted. No signs and/or symptoms were reported regarding the EENT system. Neuro: No deficits noted. Level of Consciousness is awake, alert, Oriented to person, place, time, situation. Cardiovascular: Reports chest pain, Capillary refill < 3 seconds Patient's skin is warm and dry. Respiratory: No deficits noted. Reports shortness of breath on exertion Airway is patent Respiratory effort is even, unlabored, Respiratory pattern is regular, symmetrical. GI: Abdomen is distended, noted to have ascites. : No deficits noted. No signs and/or symptoms were reported regarding the genitourinary system. Derm: No deficits noted. No signs and/or symptoms reported regarding the dermatologic system. Musculoskeletal: No deficits noted. No signs and/or symptoms reported regarding the musculoskeletal system. Historical: - Allergies: 23:01 PENICILLINS; ss12 - PMHx: 23:01 Atrial fibrillation; CHF; Dialysis T-T-S; Gout; Hypertension; kidney disease; ss12 Myocardial infarction; osteoarthritis; Pancreatitis; Rheumatoid Arthritis; stroke; - PSHx: 23:01 finger; heart stent; Stented artery; ss12 - Immunization history:: Adult Immunizations up to date. - Infectious Disease History:: Denies. - Social history:: Smoking status: Patient denies any tobacco usage or history of. Screenin:04 [facility] ED Fall Risk Assessment (Adult) History of falling in the last 3 months, ss12 including since admission No falls in past 3 months (0 pts) Confusion or Disorientation No (0 pts) Intoxicated or Sedated No (0 pts) Impaired Gait No (0 pts) Mobility Assist Device Used No (0 pt) Altered Elimination No (0 pt) Score/Fall Risk Level 0 - 2 = Low Risk Oriented to surroundings, Maintained a safe environment, Educated pt \T\ family on fall prevention, incl call for assistance when getting out of bed, Assessed \T\ reinforced patient's understanding of fall precautions. Abuse screen: Denies threats or abuse. Denies injuries from another. Nutritional screening: No deficits noted. Tuberculosis screening: No symptoms or risk factors identified. Assessment: 21:05 Reassessment: see triage assessment. ss12 22:05 Reassessment: Patient appears in no apparent distress at this time. Patient and/or ss12 family updated on plan of care and expected duration. Pain level reassessed. Patient is alert, oriented x 3, equal unlabored respirations, skin warm/dry/pink. 23:10 Reassessment: Patient appears in no apparent distress at this time. Patient and/or ss12 family updated on plan of care and expected duration. Pain level reassessed. Patient is alert, oriented x 3, equal unlabored respirations, skin warm/dry/pink. 03/15 00:15 Reassessment: Patient appears in no apparent distress at this time. Patient and/or ss12 family updated on plan of care and expected duration. Pain level reassessed. Patient is alert, oriented x 3, equal unlabored respirations, skin warm/dry/pink. 01:18 Reassessment: Patient appears in no apparent distress at this time. Patient and/or ss12 family updated on plan of care and expected duration. Pain level reassessed. Patient is alert, oriented x 3, equal unlabored respirations, skin warm/dry/pink. 02:17 Reassessment: Patient appears in no apparent distress at this time. Patient and/or ss12 family updated on plan of care and expected duration. Pain level reassessed. Patient is alert, oriented x 3, equal unlabored respirations, skin warm/dry/pink. 04:39 Reassessment: Patient appears in no apparent distress at this time. Patient and/or ss12 family updated on plan of care and expected duration. Pain level reassessed. Patient is alert, oriented x 3, equal unlabored respirations, skin warm/dry/pink. 06:21 Reassessment: Patient appears in no apparent distress at this time. Patient and/or ss12 family updated on plan of care and expected duration. Pain level reassessed. Patient is alert, oriented x 3, equal unlabored respirations, skin warm/dry/pink. Vital Signs: 03/14 21:05 BP 98 / 72; Pulse 91; Resp 16; Temp 97.8(O); Pulse Ox 100% on R/A; 12 22:10 BP 89 / 74; Pulse 96; Resp 16 S; Pulse Ox 97% on R/A; 12 23:00 Weight 92.53 kg; Height 6 ft. 3 in. ; 12 23:19 BP 102 / 83; Pulse 96; Resp 16; Pulse Ox 100% on R/A; [facility] 03/15 01:19 BP 94 / 72; Pulse 92; Resp 18 S; Pulse Ox 100% on R/A; 12 02:00 BP 86 / 66; Pulse 86; Resp 16 S; Pulse Ox 96% on R/A; 12 03:30 BP 103 / 76; Pulse 89; Resp 16 S; Pulse Ox 99% on R/A; 12 04:00 BP 89 / 72; Pulse 91; Resp 16 S; Pulse Ox 99% on R/A; ss12 05:00 BP 113 / 89; Pulse 70; Resp 16 S; Pulse Ox 99% on R/A; ss12 06:21 BP 100 / 59; Pulse 96; Resp 16 S; Pulse Ox 99% on R/A; ss12 03/14 23:00 Body Mass Index 25.50 (92.53 kg, 190.5 cm) ss12 [place] Coma Score: 01:19 Eye Response: spontaneous(4). Motor Response: obeys commands(6). Verbal Response: ss12 oriented(5). Total: 15. ED Course: 03/14 21:05 Patient arrived in ED. gm2 21:05 Inserted saline lock: 22 gauge in left forearm, using aseptic technique. Blood ss12 collected. Flushed with 10 mL NS. 21:05 Patient maintains SpO2 saturation greater than 95% on room air. ss12 21:05 Provided Education on: plan of care. Client placed on continuous cardiac and pulse ss12 oximetry monitoring. NIBP monitoring applied. campus monitor on. Pulse ox on. 21:07 Cait Carranza PA-C [facility]. sb4 21:07 Frandy Sims MD is Attending Physician. sb4 21:18 Alberto Dominguez, RN is Primary Nurse. ss12 21:25 Triage completed. ss12 21:34 EKG done, by ED staff, reviewed by Cait Carranza PA-C. oe 21:39 Warm blanket given. oe 22:04 Basic Metabolic Panel Sent. ss12 22:04 CBC with Diff Sent. ss12 22:04 LFT's Sent. ss12 22:04 Magnesium Sent. ss12 22:04 NT PRO-BNP Sent. ss12 22:04 PT-INR Sent. ss12 22:04 Troponin HS Sent. ss12 22:31 XRAY Chest (1 view) In Process Unspecified. EDMS 23:05 No provider procedures requiring assistance completed. ss12 23:05 Arm band placed on right wrist. ss12 23:05 Patient has correct armband on for positive identification. ss12 23:11 Julio Dillon MD is Hospitalizing Provider. sb4 03/15 02:29 Patient admitted, IV remains in place. ha1 Administered Medications: 03/14 21:40 Drug: fentaNYL (PF) IVP 50 mcg IVP once Route: IVP; Site: left forearm; ss12 23:00 Follow up: Response: No adverse reaction; Pain is decreased 12 03/15 00:50 Drug: Acetaminophen PO 1000 mg PO once Route: PO; 12 00:59 Follow up: Response: No adverse reaction 12 01:07 Follow up: Response: No adverse reaction ss12 Medication: 03/14 23:05 VIS not applicable for this client. ss12 Outcome: 23:12 Decision to Hospitalize by Provider. sb4 03/15 01:00 Admitted to ER Hold. Please see [facility] for further documentation. ha1 Condition: stable Instructed on the need for admit, Demonstrated understanding of instructions, 09:25 Patient left the ED. ph Signatures: Dispatcher [employer] EDGiselle Sagastume, RN RN ph Lucien Flores Heidy RN RN ha1 Cait Carranza, PA-C PA-C sb4 Candace Khalil gm2 Alberto Dominguez RN RN 12
--- NOTE | 2025-03-14 23:13 | EDPHYS ---
Physician Documentation [facility] Name: Natan Paulino Age: 64 yrs Sex: Male : 1960 Arrival Date: 03/14/2025 Time: 20:58 Bed 18 Private MD: ED Physician Frandy Sims HPI: 03/14 23:42 This 64 yrs old Black Male presents to ER via EMS with complaints of Chest Pain, sb4 Shortness Of Breath. 23:42 Chest pain shortness of breath began yesterday. Had regular schedule dialysis 2 days sb4 ago. States that his symptoms feel like when he had fluid around his heart. Denies any radiation of the pain, nausea, dizziness. He additionally endorses pain in his right groin secondary to a hernia. Historical: - Allergies: 23:01 PENICILLINS; ss12 - PMHx: 23:01 Atrial fibrillation; CHF; Dialysis T-T-S; Gout; Hypertension; kidney disease; ss12 Myocardial infarction; osteoarthritis; Pancreatitis; Rheumatoid Arthritis; stroke; - PSHx: 23:01 finger; heart stent; Stented artery; ss12 - Immunization history:: Adult Immunizations up to date. - Infectious Disease History:: Denies. - Social history:: Smoking status: Patient denies any tobacco usage or history of. ROS: 23:42 Constitutional: Negative for fever, chills, and weight loss, sb4 23:42 Cardiovascular: Positive for chest pain, 23:42 Respiratory: Positive for shortness of breath, 23:42 All other systems are negative, Exam: 23:42 Head/Face: Normocephalic, atraumatic. Eyes: Extra-ocular motions intact. Periorbital sb4 areas with no swelling, redness, or edema. ENT: Mucous membranes moist. 23:42 Respiratory: No increased work of breathing, no retractions or nasal flaring. Abdomen/GI: Soft, non-tender, no distension. Skin: Warm, dry with normal turgor. Normal color with no rashes, no lesions, and no evidence of cellulitis. 23:42 Constitutional: The patient appears in no acute distress, alert, awake, 23:42 Cardiovascular: Rate: normal, Rhythm: irregularly irregular, 23:42 Abdomen/GI: Hernia: noted in the right femoral area, tenderness, Vital Signs: 21:05 BP 98 / 72; Pulse 91; Resp 16; Temp 97.8(O); Pulse Ox 100% on R/A; ss12 22:10 BP 89 / 74; Pulse 96; Resp 16 S; Pulse Ox 97% on R/A; 12 23:00 Weight 92.53 kg; Height 6 ft. 3 in. ; 12 23:19 BP 102 / 83; Pulse 96; Resp 16; Pulse Ox 100% on R/A; 12 03/15 01:19 BP 94 / 72; Pulse 92; Resp 18 S; Pulse Ox 100% on R/A; 12 02:00 BP 86 / 66; Pulse 86; Resp 16 S; Pulse Ox 96% on R/A; 12 03:30 BP 103 / 76; Pulse 89; Resp 16 S; Pulse Ox 99% on R/A; 12 04:00 BP 89 / 72; Pulse 91; Resp 16 S; Pulse Ox 99% on R/A; 12 05:00 BP 113 / 89; Pulse 70; Resp 16 S; Pulse Ox 99% on R/A; 12 06:21 BP 100 / 59; Pulse 96; Resp 16 S; Pulse Ox 99% on R/A; [facility] 03/14 23:00 Body Mass Index 25.50 (92.53 kg, 190.5 cm) ss12 Harrington Coma Score: 01:19 Eye Response: spontaneous(4). Motor Response: obeys commands(6). Verbal Response: ss12 oriented(5). Total: 15. MDM: 03/14 21:11 Medical Screening Exam initiated sb4 23:43 Differential diagnosis: viral Infection, bacterial infection, URI, bronchitis, sb4 pneumonia. Data reviewed: vital signs, nurses notes, EMS record, lab test result(s), EKG, radiologic studies, and as a result, I will admit patient. Consideration of Admission/Observation Patient was admitted/placed on observation. Care significantly affected by the following chronic conditions: Hypertension, Congestive Heart Failure, Chronic Kidney Disease. Counseling: I had a detailed discussion with the patient and/or guardian regarding the historical points, exam findings, and any diagnostic results supporting the discharge/admit diagnosis, lab results, radiology results, the need for further work-up and treatment in the hospital. 03/14 21:25 Order name: Basic Metabolic Panel; Complete Time: 23:01 sb4 03/14 21:25 Order name: CBC with Diff; Complete Time: 22:34 sb4 03/14 21:25 Order name: LFT's; Complete Time: 23:01 sb4 03/14 21:25 Order name: Magnesium; Complete Time: 23:01 sb4 03/14 21:25 Order name: NT PRO-BNP; Complete Time: 23:01 sb4 03/14 21:25 Order name: PT-INR; Complete Time: 22:15 sb4 03/14 21:25 Order name: Troponin HS; Complete Time: 23:01 sb4 03/14 22:13 Order name: Manual Differential; Complete Time: 22:34 EDMS 03/15 00:06 Order name: CBC with Automated Diff EDMS 03/15 00:06 Order name: Comprehensive Metabolic Panel EDMS 03/15 00:06 Order name: Comprehensive Metabolic Panel EDMS 03/15 00:06 Order name: Troponin High Sensitivity EDMS 03/15 00:06 Order name: Troponin High Sensitivity EDMS 03/15 00:06 Order name: Troponin High Sensitivity EDMS 03/15 00:06 Order name: Troponin High Sensitivity EDMS 03/15 00:06 Order name: Troponin High Sensitivity EDMS 03/15 00:06 Order name: Troponin High Sensitivity EDMS 03/15 00:06 Order name: Troponin High Sensitivity EDMS 03/15 00:07 Order name: CBC with Automated Diff EDMS 03/15 06:58 Order name: CBC with Automated Diff EDMS 03/15 07:02 Order name: Comprehensive Metabolic Panel EDMS 03/14 21:25 Order name: XRAY Chest (1 view); Complete Time: 22:47 sb4 03/14 21:25 Order name: EKG; Complete Time: 21:26 sb4 03/15 00:11 Order name: CONS Physician Consult EDMS 03/14 21:25 Order name: Cardiac monitoring; Complete Time: 21:38 sb4 03/14 21:25 Order name: EKG - Nurse/Tech; Complete Time: 21:38 sb4 03/14 21:25 Order name: IV Saline Lock; Complete Time: 22:03 sb4 03/14 21:25 Order name: Labs collected and sent; Complete Time: 22:03 sb4 03/14 21:25 Order name: O2 Per Protocol; Complete Time: 22:03 sb4 03/14 21:25 Order name: O2 Sat Monitoring; Complete Time: 22:03 sb4 EC:57 Rate is 95 beats/min. Rhythm is irregularly irregular, A fib. QRS interval is normal at sb4 78 msec. QT interval is prolonged at 398 msec. Clinical impression: low voltage EKG, difficult to fully interpret . Interpreted by me. Reviewed by me. Administered Medications: 21:40 Drug: fentaNYL (PF) IVP 50 mcg IVP once Route: IVP; Site: left forearm; 12 23:00 Follow up: Response: No adverse reaction; Pain is decreased 12 03/15 00:50 Drug: Acetaminophen PO 1000 mg PO once Route: PO; 12 00:59 Follow up: Response: No adverse reaction 12 01:07 Follow up: Response: No adverse reaction 12 Disposition: 06:50 Co-signature as Attending Physician, Frandy Sims MD I agree with the assessment sp4 and plan of care. I reviewed the patient's care provided by the Advanced Practice Provider and agree with the diagnosis and treatment plan. Disposition Summary: 03/14/25 23:12 Hospitalization Ordered Notes: Hospitalization Status: Observation sb4 Provider: Julio Dillon sb4 Condition: Fair sb4 Problem: new sb4 Symptoms: have improved sb4 Bed/Room Type: Standard 4 Location: Intensive Care Unit(03/15/25 07:49) [facility] Room Assignment: 6-(03/15/25 07:49) [facility] Diagnosis - Chest pain, unspecified sb4 - End stage renal disease sb4 - Hypotension, unspecified sb4 - Dyspnea sb4 Forms: - Medication Reconciliation Form sb4 - SBAR form sb4 - Leadership Thank You Letter sb4 Signatures: Dispatcher [employer] Sujatha Aguilar RN RN Cait Clarke PA-C PA-C sb4 Chiara Cates [facility] Frandy Sims MD MD sp4 Alberto Dominguez RN RN ss12 Corrections: (The following items were deleted from the chart) 03/14 23:40 23:12 Telemetry/MedSurg (observation) sb4 23:40 23:12 sb4 03/15 07:49 03/14 23:40 [facility] ER HOLD [facility] 03/15 07:49 03/14 23:40 [place] [id number]
--- NOTE | 2025-03-15 00:10 | P.HP ---
Certification for Inpatient Patient admitted to: Observation With expected LOS: <2 Midnights Practitioner: I am a practitioner with admitting privileges, knowledge of patient current condition, hospital course, and medical plan of care. Services: Services provided to patient in accordance with Admission requirements found in Title 42 Section 412.3 of the Code of Federal Regulations Patient History Date of Service: 03/15/25 Reason for admission: NSTEMI History of Present Illness: 64 yrs old male with past medical history of hypertension, hyperlipidemia, atrial fibrillation, coronary artery disease, status post PCI, ESRD on dialysis, history of gout, history of pancreatitis, rheumatoid arthritis, history of CVA who was brought to ER with palpitations and shortness of breath and chest discomfort. Patient noted history of heart racing and was brought to ER. Patient complains of chest discomfort as well. Denies any radiation associated with shortness of breath.. No fever or chills. No nausea vomiting or diarrhea Patient was assessed in the ER and was admitted for further management of chest pain rule out ACS and NSTEMI. Allergies Penicillins Allergy (Verified 10/27/22 21:16) Hives/Rash Home medications list reviewed: Yes Home Medications: Amiodarone HCl [Cordarone*] 200 mg PO DAILY 07/27/24 Atorvastatin Calcium [Lipitor] 20 mg PO BEDTIME 07/27/24 Metoprolol Succinate [Toprol Xl*] 1 tab PO BID 07/27/24 Calcium Acetate [Phoslo*] 1,334 mg PO TIDWM #180 tab 11/06/24 Epoetin [Retacrit] 10,000 unit IV EVERY HD vial 11/06/24 calcitrioL [Calcitriol] 0.5 mcg PO DAILY #30 cap 11/06/24 Atovaquone 1,500 mg PO DAILY 11/19/24 predniSONE [Deltasone*] 30 mg PO DAILY 12/18/24 Apixaban [Eliquis *] 2.5 mg PO BID 30 Days #60 tab 01/14/25 Docusate [Colace Cap*] 100 mg PO BID 30 Days #60 cap 01/14/25 Furosemide [Lasix*] 80 mg PO BIDL 30 Days #120 tab 01/14/25 Midodrine HCl [Proamatine*] 5 mg PO [id number] 30 Days #60 tab 01/14/25 Sacubitril/Valsartan [Entresto 24 mg-26 mg Tablet] 1 tab PO BID 30 Days #60 tab 01/14/25 allopurinoL [Zyloprim*] 100 mg PO BID 30 Days #60 tab 01/14/25 - Past Medical/Surgical History Diabetic: No Past Medical History: Reviewed- Non-Contributory -: HTN -: Systolic congestive 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 Rossi/ Dr. Cabral) -: CAD -: Mural thrombus-left ventricle-resolved, on Eliquis -: CVA/ TIA -: Hep C--rec'd treatment 08/2023 Past Surgical History: Reviewed- Non-Contributory -: Cardiac stent placement July 2019 -: removal of L hand 5th digit -: Cardiac catheterization 08/2023 Psychosocial/ Personal History: Patient currently lives at home with his and is on disability due to heart condition. - Family History Father -: Cancer, Liver disease Mother -: GI disease, Other (see notes) Notes: NA - Social History Alcohol use: No CD- Drugs: No Caffeine use: Yes Review of Systems 10-point ROS is otherwise unremarkable Physical Examination - Vital Signs Temperature: 98.9 F Blood Pressure: 90/46 Pulse: 98 Respirations: 18 Pulse Ox (%): 94 - Physical Exam General: Alert, Mild distress HEENT: Atraumatic, Normocephalic Neck: Supple, No Thyromegaly Respiratory: Diminished, Crackles/rales Cardiovascular: Regular rate/rhythm, Normal S1 S2 Capillary refill: <2 Seconds Gastrointestinal: Soft and benign, W/out hepatosplenomegaly Musculoskeletal: No clubbing, Swelling Integumentary: No rashes Neurological: Other (Alert awake nonfocal) Lymphatics: No axilla or inguinal lymphadenopathy External genitalia: Other (Right inguinal hernia) - Studies Laboratory Data (last 24 hrs) 03/14/25 03/14/25 03/14/25 21:59 21:59 21:59 WBC 4.90 Hgb 11.2 L Hct 34.5 L Plt Count 165 PT 18.7 H INR 1.68 Sodium 137 Potassium 3.8 BUN 17 Creatinine 6.90 H Glucose 81 Magnesium 2.1 Total Bilirubin 2.1 H AST 21 ALT < 14 L Alkaline Phosphatase 124 H Assessment and Plan - Plan NSTEMI Will trend cardiac enzymes Will monitor telemetry Started on aspirin and statin EKG did not show any acute changes suggestive of ischemia Cardiology consult ESRD on dialysis with fluid overload Nephrology consulted Renal parameters monitored Hypertension Antihypertensives titrated Continue home medications and titrate as needed Hyperlipidemia Continue statin Right inguinal hernia Will get a surgical consult Monitor closely Pain control GI/DVT prophylaxis Advanced directive full code Discharge Plan: Home Plan to discharge in: 48 Hours - Advance Directives Does patient have a Living Will: No Does patient have a Durable POA for Healthcare: No - Code Status/Comfort Care Code Status: Full Code Time Spent Managing Pts Care (In Minutes): 48
[2025-03-15] MEDS ORDERED: ACETAMINOPHEN 500 MG TAB ONE (00:54)
[2025-03-15] MEDS ORDERED: MIDODRINE HCL 5 MG TABLET ONE (02:26)
[2025-03-15] MEDS ORDERED: ALBUMIN HUMAN 25% 100 ML IV ONE (02:27)
[2025-03-15] MEDS: ALBUMIN HUMAN 25% 100 ML IV ONE (02:30)
[2025-03-15] MEDS: MIDODRINE HCL 5 MG TABLET PO SCH ×2 (02:30→15:09)
[2025-03-15] MEDS: MIDODRINE HCL 5 MG TABLET PO ONE (05:10)
[2025-03-15 06:55] LABS: Absolute Lymphocytes (CBC) 1.0 K/uL (0.7-4.9); Hematocrit 31.9 % (39.6-49.0); Hemoglobin 10.5 g/dL (13.6-17.9); MCH 27.5 pg (27.0-35.0); MCHC 33.1 g/dL (32.0-36.0); MCV 83.1 fL (80-100); MPV 9.7 fL (7.6-11.3); Nucleated RBC Absolute Count 0.0 (0-0); Nucleated Red Blood Cells % 0.2 % (0-0); RBC Red Blood Cell Count 3.84 M/uL (4.33-5.43); White Blood Count 4.20 thou/uL (4.3-10.9)
[2025-03-15 06:57] LABS: AST/SGOT 18 U/L (15-37); Albumin 2.6 g/dL (3.4-5.0); Albumin/Globulin Ratio 0.8 (1.1-1.8); Alkaline Phosphatase 113 U/L (45-117); Anion Gap 11.5 mEq/L (5.0-15.0); BUN Blood Urea Nitrogen 19 mg/dL (7-18); Globulin 3.4 g/dL (2.3-3.5); Glucose Level 107 mg/dL (74-106); Potassium 3.5 mEq/L (3.5-5.1)
[2025-03-15 07:02] LABS: ALT/SGPT < 14 U/L (16-61)
[2025-03-15] MEDS: PNEUMOCOCCAL VACCINE 0.5 ML IMVAC ONE (08:00)
[2025-03-15] MEDS: HEPARIN 5000 UNIT/ML 1 ML VIAL SQ SCH (10:56)
[2025-03-15] MEDS: HYDROMORPHONE HCL 0.5 MG/0.5 ML INJ IV PRN (10:56)
--- NOTE | 2025-03-15 11:26 | P.CNS ---
Date of Consult: 03/15/25 Chief Complaint: NSTEMI History of Present Illness: Patient with PMH of Non ischemic cardiomyopathy, ESRD on HARGROVE, AF, presented with worsening SOB, denies chest pain, no palpitations, no syncope. Allergies Penicillins Allergy (Verified 10/27/22 21:16) Hives/Rash Home medications list reviewed: Yes Home Medications: Amiodarone HCl [Cordarone*] 200 mg PO DAILY 07/27/24 Atorvastatin Calcium [Lipitor] 20 mg PO BEDTIME 07/27/24 Metoprolol Succinate [Toprol Xl*] 1 tab PO BID 07/27/24 Calcium Acetate [Phoslo*] 1,334 mg PO TIDWM #180 tab 11/06/24 Epoetin [Retacrit] 10,000 unit IV EVERY HD vial 11/06/24 calcitrioL [Calcitriol] 0.5 mcg PO DAILY #30 cap 11/06/24 Atovaquone 1,500 mg PO DAILY 11/19/24 predniSONE [Deltasone*] 30 mg PO DAILY 12/18/24 Apixaban [Eliquis *] 2.5 mg PO BID 30 Days #60 tab 01/14/25 Docusate [Colace Cap*] 100 mg PO BID 30 Days #60 cap 01/14/25 Furosemide [Lasix*] 80 mg PO BIDL 30 Days #120 tab 01/14/25 Midodrine HCl [Proamatine*] 5 mg PO [id number] 30 Days #60 tab 01/14/25 Sacubitril/Valsartan [Entresto 24 mg-26 mg Tablet] 1 tab PO BID 30 Days #60 tab 01/14/25 allopurinoL [Zyloprim*] 100 mg PO BID 30 Days #60 tab 01/14/25 Bumetanide [Bumex] 2 mg PO DAILY 03/15/25 - Past Medical/Surgical History Diabetic: No -: HTN -: Systolic congestive 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 Rossi/ Dr. Cabral) -: CAD -: Mural thrombus-left ventricle-resolved, on Eliquis -: CVA/ TIA -: Hep C--rec'd treatment 08/2023 -: Cardiac stent placement July 2019 -: removal of L hand 5th digit -: Cardiac catheterization 08/2023 Psychosocial/ Personal History: Patient currently lives at home with his and is on disability due to heart condition. - Family History Father Medical History: Cancer, Liver disease Mother Medical History: GI disease, Other (see notes) Notes: NA - Social History Smoking Status: Unknown if ever smoked Alcohol use: No CD- Drugs: No Caffeine use: Yes Review of Systems 10-point ROS is otherwise unremarkable Physical Examination Temp Pulse Resp BP Pulse Ox 97.8 F 86 20 102/75 99 03/15/25 08:00 03/15/25 08:00 03/15/25 10:56 03/15/25 08:00 03/15/25 10:56 General: Alert, In no apparent distress HEENT: Atraumatic, PERRLA, Mucous membr. moist/pink, EOMI, Sclerae nonicteric Neck: Supple, 2+ carotid pulse no bruit, No LAD, Without JVD or thyroid abnormality Respiratory: Clear to auscultation bilaterally, Normal air movement Cardiovascular: Regular rate/rhythm, Normal S1 S2 Gastrointestinal: Normal bowel sounds, No tenderness Musculoskeletal: No tenderness Integumentary: No rashes Neurological: Normal gait, Normal speech, Normal tone, Normal affect Lymphatics: No axilla or inguinal lymphadenopathy Laboratory Data (last 24 hrs) 03/14/25 03/14/25 03/14/25 21:59 21:59 21:59 WBC 4.90 Hgb 11.2 L Hct 34.5 L Plt Count 165 PT 18.7 H INR 1.68 Sodium 137 Potassium 3.8 BUN 17 Creatinine 6.90 H Glucose 81 Magnesium 2.1 Total Bilirubin 2.1 H AST 21 ALT < 14 L Alkaline Phosphatase 124 H - Problems (1) Acute on chronic combined systolic (congestive) and diastolic (congestive) heart failure Current Visit: Yes Status: Acute Plan: continue volume adjustment through dialysis continue to monitor input and output and electrolytes resume Toprol XL when BP is better (2) Atrial fibrillation Current Visit: No Status: Acute Plan: continue Amiodarone 200 mg po BID Continue Eliquis 2.5 mg po BID continue to monitor on tele (3) Type 2 [place] (myocardial infarction) Current Visit: No Status: Acute Plan: Patient with NO history of stents, patient had a coronary angigram done recently and shown normal coronaries this is chronic troponin elevation from ESRD and Heart failure no further cardiac work up needed.
--- NOTE | 2025-03-15 12:59 | P.CNS ---
Date of Consult: 03/15/25 Reason for Consult: ESRD Requesting Physician: Myriam Pena Chief Complaint: NSTEMI History of Present Illness: 64 yrs old male with past medical history of hypertension, hyperlipidemia, atrial fibrillation, coronary artery disease, status post PCI, ESRD on dialysis, history of gout, history of pancreatitis, rheumatoid arthritis, history of CVA who was brought to ER with palpitations and shortness of breath and chest discomfort. Patient noted history of heart racing and was brought to ER. Patient complains of chest discomfort as well. Denies any radiation associated with shortness of breath.. No fever or chills. No nausea vomiting or diarrhea Patient was assessed in the ER and was admitted for further management of chest pain rule out ACS and NSTEMI. 23:42 This 64 yrs old Black Male presents to ER via EMS with complaints of Chest Pain, sb4 Shortness Of Breath. 23:42 Chest pain shortness of breath began yesterday. Had regular schedule dialysis 2 days sb4 ago. States that his symptoms feel like when he had fluid around his heart. Denies any radiation of the pain, nausea, dizziness. He additionally endorses pain in his right groin secondary to a hernia. Allergies Penicillins Allergy (Verified 10/27/22 21:16) Hives/Rash Home medications list reviewed: Yes Home Medications: Amiodarone HCl [Cordarone*] 200 mg PO DAILY 07/27/24 Atorvastatin Calcium [Lipitor] 20 mg PO BEDTIME 07/27/24 Metoprolol Succinate [Toprol Xl*] 1 tab PO BID 07/27/24 Calcium Acetate [Phoslo*] 1,334 mg PO TIDWM #180 tab 11/06/24 Epoetin [Retacrit] 10,000 unit IV EVERY HD vial 11/06/24 calcitrioL [Calcitriol] 0.5 mcg PO DAILY #30 cap 11/06/24 Atovaquone 1,500 mg PO DAILY 11/19/24 predniSONE [Deltasone*] 30 mg PO DAILY 12/18/24 Apixaban [Eliquis *] 2.5 mg PO BID 30 Days #60 tab 01/14/25 Docusate [Colace Cap*] 100 mg PO BID 30 Days #60 cap 01/14/25 Furosemide [Lasix*] 80 mg PO BIDL 30 Days #120 tab 01/14/25 Midodrine HCl [Proamatine*] 5 mg PO [id number] 30 Days #60 tab 01/14/25 Sacubitril/Valsartan [Entresto 24 mg-26 mg Tablet] 1 tab PO BID 30 Days #60 tab 01/14/25 allopurinoL [Zyloprim*] 100 mg PO BID 30 Days #60 tab 01/14/25 Bumetanide [Bumex] 2 mg PO DAILY 03/15/25 - Past Medical/Surgical History Diabetic: No -: HTN -: Systolic congestive 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 Rossi/ Dr. Cabral) -: CAD -: Mural thrombus-left ventricle-resolved, on Eliquis -: CVA/ TIA -: Hep C--rec'd treatment 08/2023 -: Cardiac stent placement July 2019 -: removal of L hand 5th digit -: Cardiac catheterization 08/2023 Psychosocial/ Personal History: Patient currently lives at home with his and is on disability due to heart condition. - Family History Father Medical History: Cancer, Liver disease Mother Medical History: GI disease, Other (see notes) Notes: NA - Social History Smoking Status: Unknown if ever smoked Alcohol use: No CD- Drugs: No Caffeine use: Yes Review of Systems 10-point ROS is otherwise unremarkable Respiratory: SOB with Excertion Cardiovascular: Chest Pain, Edema Physical Examination Temp Pulse Resp BP Pulse Ox 97.8 F 86 20 102/75 99 03/15/25 08:00 03/15/25 08:00 03/15/25 10:56 03/15/25 08:00 03/15/25 10:56 General: In no apparent distress, Oriented x3, Cooperative HEENT: Atraumatic Neck: Supple Respiratory: Normal air movement Cardiovascular: Regular rate/rhythm, Edema Gastrointestinal: Soft and benign, Non-distended Musculoskeletal: No clubbing, No contractures Integumentary: No rashes, No cyanosis Neurological: Normal speech Laboratory Data (last 24 hrs) 03/14/25 03/14/25 03/14/25 21:59 21:59 21:59 WBC 4.90 Hgb 11.2 L Hct 34.5 L Plt Count 165 PT 18.7 H INR 1.68 Sodium 137 Potassium 3.8 BUN 17 Creatinine 6.90 H Glucose 81 Magnesium 2.1 Total Bilirubin 2.1 H AST 21 ALT < 14 L Alkaline Phosphatase 124 H Imagings Data: EXAM: Chest Single View HISTORY: 64 years Male CHEST PAIN COMPARISON: 01/05/2025 FINDINGS: LUNGS/PLEURA: Pulmonary vascular congestion. Probable small left pleural effusion. CARDIAC/MEDIASTINUM: Moderate cardiomegaly. UPPER ABDOMEN: No significant abnormality. BONES: No acute abnormality. LINES/TUBES/OTHER: Pacemaker/AICD. Right IJ approach dialysis catheter. IMPRESSION: Suspect mild pulmonary edema and small left effusion. Conclusions/Impression: ESRD TTS -HD TIW Chronic Hypotension -Continue Midodrine Systolic Diastolic CHF, A/C Peripheral Edema -UF with HD as tolerated -Start CoQ10 Hypoalbuminemia -Start Nepro Anemia in CKD -Retacrit qHD CKD MBD Secondary HyperParathyroidism -Start Calcitriol and Renvela Hospitalist & ER notes reviewed Thank you kindly for the consultation
[2025-03-15] MEDS ORDERED: NA CHLORIDE 0.9% 1,000 ML IV PRN (13:05)
[2025-03-15] MEDS ORDERED: MANNITOL 25% 12.5 GM/50 ML VIAL IV PRN (13:05)
[2025-03-15] MEDS: NEPRO SHAKE 237 ML CAN PO SCH (14:00)
[2025-03-15] MEDS ORDERED: ALBUMIN HUMAN 25% 50 ML IV SCH (14:00)
[2025-03-15] MEDS: SEVELAMER CARBONATE 800 MG TABLET PO SCH (15:09)
[2025-03-15] MEDS: ONDANSETRON 4 MG/2 ML VIAL IV PRN (19:03)
[2025-03-15] MEDS: DOCUSATE NA 100 MG CAP PO SCH (21:11)
[2025-03-16 06:10] LABS: Absolute Lymphocytes (CBC) 1.4 K/uL (0.7-4.9); Hematocrit 32.7 % (39.6-49.0); Hemoglobin 10.7 g/dL (13.6-17.9); MCH 27.5 pg (27.0-35.0); MCHC 32.8 g/dL (32.0-36.0); MCV 83.7 fL (80-100); MPV 10.1 fL (7.6-11.3); Nucleated RBC Absolute Count 0.0 (0-0); Nucleated Red Blood Cells % 0.1 % (0-0); RBC Red Blood Cell Count 3.91 M/uL (4.33-5.43); White Blood Count 5.40 thou/uL (4.3-10.9)
[2025-03-16 06:39] LABS: AST/SGOT 17 U/L (15-37); Albumin 2.6 g/dL (3.4-5.0); Albumin/Globulin Ratio 0.8 (1.1-1.8); Alkaline Phosphatase 115 U/L (45-117); Anion Gap 8.8 mEq/L (5.0-15.0); BUN Blood Urea Nitrogen 22 mg/dL (7-18); Globulin 3.4 g/dL (2.3-3.5); Glucose Level 87 mg/dL (74-106); Potassium 3.8 mEq/L (3.5-5.1)
[2025-03-16 06:47] LABS: ALT/SGPT < 14 U/L (16-61)
[2025-03-16 07:24] LABS: Hepatitis B Surface Ab - Quant 15.63 mIU/mL (<8.0); Hepatitis B surface AG Interp. Nonreactive (Nonreactive)
[2025-03-16 07:25] LABS: HBsAG Nonreactive Report Report
--- NOTE | 2025-03-16 07:30 | ECHO ---
HEIGHT: 6 ft 3 in WEIGHT: 200 lb 12.8 oz DATE OF STUDY: 03/15/[address]: Ted Rangel MD 2-DIMENSIONAL: YES M.MODE: YES DOPPLER: YES COLOR FLOW: YES TDS: NO PORTABLE: YES DEFINITY: NO BUBBLE STUDY: NO DIAGNOSIS: CHEST PAIN CARDIAC HISTORY: CATHERIZATION: NO SURGERY: NO PROSTHETIC VALVE: NO PACEMAKER: YES MEASUREMENTS (cm) DIASTOLIC (NORMALS) SYSTOLIC (NORMALS) IVSd 1.1 (0.6-1.2) LA Diam 4.9 (1.9-4.0) LVEF 15-20% LVIDd 6.2 (3.5-5.7) LVIDs 5.6 (2.0-3.5) %FS 9% LVPWd 1.1 (0.6-1.2) Ao Diam 3.5 (2.0-3.7) 2 DIMENSIONAL ASSESSMENT: RIGHT ATRIUM: DILATED LEFT ATRIUM: MODERATELY DILATED RIGHT VENTRICLE: NORMAL PACEMAKER LEAD LEFT VENTRICLE: DILATED TRICUSPID VALVE: SEVERE TRICUSPID REGURGITATION MITRAL VALVE: MILD TO MODERATE MITRAL REGURGITATION PULMONIC VALVE: NORMAL AORTIC VALVE: NORMAL PERICARDIAL EFFUSION: MODERATE CURCUMFRENTIAL AORTIC ROOT: NORMAL LEFT VENTRICULAR WALL MOTION: SEVERE GLOBAL HYPOKINESIS. DOPPLER/COLOR FLOW: DIASTOLIC DYSFUNCTION. COMMENTS: 1. SEVERELY REDUCED LEFT VENTRICULAR SYSTOLIC FUNCTION, EJECTION FRACTION 15-20%, SEVERE GLOBAL HYPOKINESIS. 2. DIASTOLIC DYSFUNCTION. 3. SEVERE TRICUSPID REGURGITATION. 4. MODERATE MITRAL REGURGITATION. 5. MODERATE CIRUMFRENTIAL PERICARDIAL EFFUSION, NO TAMPONADE. 6. ELEVATED FILLING PRESSURE (RIGHT ATRIAL PRESSURE 15-20mmHg). TECHNOLOGIST: CHICHO SOOD
[2025-03-16] MEDS: DRISDOL (VITAMIN D=ERGOCALCIFEROL) 50000 UNIT CAP PO SCH (08:25)
[2025-03-16] MEDS: CALCITROL 0.25 MCG CAP PO SCH (08:25)
[2025-03-16] MEDS: MULTIVITAMINS,THERAPEUT 1 TAB PO SCH (08:26)
[2025-03-16] MEDS: COENZYME Q10- 200 MG CAP PO SCH (08:26)
[2025-03-16] MEDS: ALBUMIN HUMAN 25% 100 ML IV ONE (09:00)
[2025-03-16] MEDS: EPOETIN ALFA 10,000 UNIT/ML VIAL IV SCH (11:08)
--- NOTE | 2025-03-16 11:58 | P.PN ---
Subjective Date of Service: 03/16/25 Chief Complaint: NSTEMI Subjective: No new changes, No C/O voiced, Tolerating diet, Ambulating, Improving Review of Systems 10-point ROS is otherwise unremarkable Physical Examination - Vital Signs Temperature: 97.4 F Blood Pressure: 109/80 Pulse: 78 Respirations: 20 Pulse Ox (%): 100 - Physical Exam General: Alert, In no apparent distress HEENT: Atraumatic, PERRLA, EOMI Neck: Supple, JVD not distended Respiratory: Clear to auscultation bilaterally, Normal air movement Cardiovascular: Regular rate/rhythm, Normal S1 S2 Gastrointestinal: Normal bowel sounds, No tenderness Musculoskeletal: No tenderness Integumentary: No rashes Neurological: Normal speech, Normal tone, Normal affect Lymphatics: No axilla or inguinal lymphadenopathy - Studies Medications List Reviewed: Yes Assessment And Plan - Current Problems (Diagnosis) (1) Acute on chronic combined systolic (congestive) and diastolic (congestive) heart failure Current Visit: Yes Status: Acute Plan: continue volume adjustment through dialysis continue to monitor input and output and electrolytes resume Toprol XL and entresto when BP is better Cardiology will sign off, please call with any questions (2) Atrial fibrillation Current Visit: No Status: Acute Plan: continue Amiodarone 200 mg po BID Continue Eliquis 2.5 mg po BID continue to monitor on tele (3) Type 2 [place] (myocardial infarction) Current Visit: No Status: Acute Plan: Patient with NO history of stents, patient had a coronary angigram done recently and shown normal coronaries this is chronic troponin elevation from ESRD and Heart failure no further cardiac work up needed. Cardiology will sign off.
--- NOTE | 2025-03-16 12:51 | P.PN ---
Date of Service: 03/16/25 Subjective: Seen resting in the ICU. Dialysis nurse at bedside and starting dialysis. He has no new complaints. He denies fevers and chills Review of Systems 10-point ROS is otherwise unremarkable Physical Examination - Vital Signs Temperature: 98.9 F Blood Pressure: 90/46 Pulse: 98 Respirations: 18 Pulse Ox (%): 94 - Physical Exam General: Alert, Mild distress HEENT: Atraumatic, Normocephalic Neck: Supple, No Thyromegaly Respiratory: Diminished, Crackles/rales Cardiovascular: Regular rate/rhythm, Normal S1 S2 Capillary refill: <2 Seconds Gastrointestinal: Soft and benign, W/out hepatosplenomegaly Musculoskeletal: No clubbing, Swelling Integumentary: No rashes Neurological: Other (Alert awake nonfocal) Lymphatics: No axilla or inguinal lymphadenopathy External genitalia: Other (Right inguinal hernia) - Studies Laboratory Data (last 24 hrs) 03/14/25 03/14/25 03/14/25 21:59 21:59 21:59 WBC 4.90 Hgb 11.2 L Hct 34.5 L Plt Count 165 PT 18.7 H INR 1.68 Sodium 137 Potassium 3.8 BUN 17 Creatinine 6.90 H Glucose 81 Magnesium 2.1 Total Bilirubin 2.1 H AST 21 ALT < 14 L Alkaline Phosphatase 124 H Assessment and Plan - Plan NSTEMI Will trend cardiac enzymes Will monitor telemetry Started on aspirin and statin EKG did not show any acute changes suggestive of ischemia Cardiology consult ESRD on dialysis with fluid overload Nephrology consulted Renal parameters monitored Dialysis on Saturday Hypertension Antihypertensives titrated Continue home medications and titrate as needed Hyperlipidemia Continue statin Right inguinal hernia Will get a surgical consult Monitor closely Pain control GI/DVT prophylaxis Advanced directive full code Discharge Plan: Home Plan to discharge in: 48 Hours - Advance Directives Does patient have a Living Will: No Does patient have a Durable POA for Healthcare: No - Code Status/Comfort Care Code Status: Full Code
[2025-03-16] MEDS: PROMETHAZINE INJ 25 MG/ML AMP IM PRN (16:58)
--- NOTE | 2025-03-16 20:59 | P.PN ---
Date of Service: 03/16/25 Vital Signs Temp Pulse Resp BP Pulse Ox 97.2 F 88 11 L 110/82 98 03/16/25 20:00 03/16/25 20:00 03/16/25 20:00 03/16/25 20:00 03/16/25 20:00 Medications Acetaminophen (Acetaminophen 325 Mg Tablet) 650 mg PO Q4HP PRN PRN Reason: Pain scale 2-4 (Mild) Calcitriol (Calcitrol 0.25 Mcg Cap) 0.5 mcg PO DAILY [facility] Last Admin: 03/16/25 08:25 Dose: 0.5 mcg Coenzyme Q10 (Coenzyme Q10- 200 Mg Cap) 200 mg PO DAILY [facility] Last Admin: 03/16/25 08:26 Dose: 200 mg Docusate Sodium (Docusate Na 100 Mg Cap) 100 mg PO BID [facility] Last Admin: 03/16/25 20:54 Dose: 100 mg Enteral Nutritional Formula (Nepro Shake 237 Ml Can) 240 ml PO TID [facility] Last Admin: 03/16/25 20:55 Dose: 240 ml Epoetin Yfn (Epoetin Yfn 10,000 Unit/Ml Vial) 10,000 unit IV EVERY HD [facility] Last Admin: 03/16/25 11:08 Dose: 10,000 unit Ergocalciferol (Drisdol (Vitamin D=Ergocalciferol) 88598 Unit Cap) 50,000 unit PO Q7D@0900 [facility] Last Admin: 03/16/25 08:25 Dose: 50,000 unit Heparin Sodium (Porcine) (Heparin 5000 Unit/Ml 1 Ml Vial) 5,000 unit SQ Q12HR [facility] Last Admin: 03/16/25 20:54 Dose: 5,000 unit Hydromorphone HCl (Hydromorphone Hcl 0.5 Mg/0.5 Ml Inj) 0.5 mg IV Q4H PRN PRN Reason: Pain scale 8-10 (Severe) Last Admin: 03/16/25 17:44 Dose: 0.5 mg Albumin Human (Albumin 25%) 50 mls @ 100 mls/hr IV EVERY HD [facility] Mannitol (Mannitol 25% 12.5 Gm/50 Ml Vial) 12.5 gm IV EVERY HD PRN PRN Reason: PRN FOR BP SUPPORT AT HD Midodrine (Midodrine Hcl 5 Mg Tablet) 10 mg PO [id number] [facility] Last Admin: 03/16/25 16:37 Dose: 10 mg Ondansetron HCl (Ondansetron 4 Mg/2 Ml Vial) 4 mg IV Q6HP PRN PRN Reason: NAUSEA / VOMITING Last Admin: 03/16/25 13:20 Dose: 4 mg Promethazine HCl (Promethazine Inj 25 Mg/Ml Amp) 12.5 mg IM Q8H PRN PRN Reason: NAUSEA / VOMITING Last Admin: 03/16/25 16:58 Dose: 12.5 mg Sevelamer Carbonate (Sevelamer Carbonate 800 Mg Tablet) 800 mg PO TIDWM [facility] Last Admin: 03/16/25 16:37 Dose: 800 mg Vitamin B Complex/Vit C/Folic Acid (Multivitamins,Therapeut 1 Tab) 1 tab PO DAILY [facility] Last Admin: 03/16/25 08:26 Dose: 1 tab Assessment/ Plan: Nephrology Dyspnea No chest pain No acute events overnight Vitals, medications, blood work and imaging reviewed in the chart General: In no apparent distress, Oriented x3, Cooperative HEENT: Atraumatic Neck: Supple Respiratory: Normal air movement Cardiovascular: Regular rate/rhythm, Edema Gastrointestinal: Soft and benign, Non-distended Musculoskeletal: No clubbing, No contractures Integumentary: No rashes, No cyanosis Neurological: Normal speech Laboratory Data (last 24 hrs) 03/14/25 03/14/25 03/14/25 21:59 21:59 21:59 WBC 4.90 Hgb 11.2 L Hct 34.5 L Plt Count 165 PT 18.7 H INR 1.68 Sodium 137 Potassium 3.8 BUN 17 Creatinine 6.90 H Glucose 81 Magnesium 2.1 Total Bilirubin 2.1 H AST 21 ALT < 14 L Alkaline Phosphatase 124 H Imagings Data: EXAM: Chest Single View HISTORY: 64 years Male CHEST PAIN COMPARISON: 01/05/2025 FINDINGS: LUNGS/PLEURA: Pulmonary vascular congestion. Probable small left pleural effusion. CARDIAC/MEDIASTINUM: Moderate cardiomegaly. UPPER ABDOMEN: No significant abnormality. BONES: No acute abnormality. LINES/TUBES/OTHER: Pacemaker/AICD. Right IJ approach dialysis catheter. IMPRESSION: Suspect mild pulmonary edema and small left effusion. Conclusions/Impression: ESRD TTS -HD TIW -Acute HD today Chronic Hypotension -Continue Midodrine Systolic Diastolic CHF, A/C Peripheral Edema -UF with HD as tolerated -Continue CoQ10 Hypoalbuminemia -Continue Nepro Anemia in CKD -Retacrit qHD CKD MBD Secondary HyperParathyroidism -Continue Calcitriol and Renvela Hospitalist note reviewed
[2025-03-16] MEDS: HYDROMORPHONE HCL 0.5 MG/0.5 ML INJ IV ONE (23:00)
[2025-03-17 06:24] LABS: Absolute Lymphocytes (CBC) 1.4 K/uL (0.7-4.9); Hematocrit 36.4 % (39.6-49.0); Hemoglobin 11.7 g/dL (13.6-17.9); MCH 26.8 pg (27.0-35.0); MCHC 32.0 g/dL (32.0-36.0); MCV 83.7 fL (80-100); MPV 10.0 fL (7.6-11.3); Nucleated RBC Absolute Count 0.0 (0-0); Nucleated Red Blood Cells % 0.1 % (0-0); RBC Red Blood Cell Count 4.35 M/uL (4.33-5.43); White Blood Count 6.40 thou/uL (4.3-10.9)
[2025-03-17 07:00] LABS: Anion Gap 9.8 mEq/L (5.0-15.0); BUN Blood Urea Nitrogen 20.0 mg/dL (7-18); Glucose Level 69.0 mg/dL (74-106); Potassium 3.8 mEq/L (3.5-5.1)
--- NOTE | 2025-03-17 08:52 | RAD REPORT ---
EXAM: AP view(s) of the abdomen Abdomen 1 View (KUB) HISTORY: Decreased appetite. N/V COMPARISON: None FINDINGS: Nonobstructive bowel gas pattern.. No suspicious calcifications are seen. No acute osseous abnormality. Other: Defibrillator lead with cardiomegaly at the lower chest. IMPRESSION: Nonobstructive bowel gas pattern.
[2025-03-17] MEDS ORDERED: EPOETIN ALFA 10,000 UNIT/ML VIAL IV SCH (09:15)
[2025-03-17] MEDS: CALCIUM ACETATE 667 MG TAB PO SCH (10:55)
--- NOTE | 2025-03-17 12:06 | P.PN ---
Subjective Date of Service: 03/17/25 Chief Complaint: NSTEMI Subjective: Worsening (Patient with borderline blood pressure this morning. Oral antihypertensive have been held. Lactic acid 3.5. Staying in the hospital for volume repletion.) Physical Examination - Vital Signs Temperature: 97.4 F Blood Pressure: 95/75 Pulse: 90 Respirations: 11 Pulse Ox (%): 100 - Physical Exam General: Alert, In no apparent distress, Cooperative HEENT: Atraumatic, Normocephalic Respiratory: Clear to auscultation bilaterally, Normal air movement Cardiovascular: No edema, Normal pulses, Normal S1 S2, Irregular heart rate/rhythm Gastrointestinal: Other (Right inguinal hernia) Neurological: Normal speech - Studies Medications List Reviewed: Yes Assessment And Plan - Plan Assessment Patient is 64-year -French male with known history of hypertension, hyperlipidemia, atrial fibrillation and ESRD on hemodialysis. Was admitted after he presented with palpitations, shortness of breath and chest pain. Cardiology was consulted due to elevated troponin. He has a recent history of a normal cardiac cath. Cardiology has signed off. He is being monitored for borderline blood pressure. He has a right inguinal hernia, lactic acidosis and poor appetite. CT abdomen and pelvis was ordered to rule out bowel disease and obstruction. Hypotension and lactic acidosis Right inguinal hernia Acute on chronic combined systolic and diastolic CHF Atrial fibrillation Type II CA ESRD Plan: Antihypertensives have been held due to borderline blood pressure Will bolus 500 cc of normal saline due to lactic acidosis and hypotension Follow CT abdomen and pelvis to assess for bowel ischemia and obstruction Routine hemodialysis as tolerated Amiodarone if blood pressure permits Resume apixaban if CT abdomen pelvis unremarkable and no surgery anticipated
[2025-03-17] MEDS: NA CHLORIDE 0.9% 500 ML IV ONE (12:32)
--- NOTE | 2025-03-17 14:22 | RAD REPORT ---
EXAMINATION: CT Abdomen Pelvis W Contrast CLINICAL INDICATION: Male, 64 years old. Right inguinal hernia, rule out bowel obstruction TECHNIQUE: CT abdomen and pelvis was performed, after the administration of IV contrast, as per [facility] protocol. Axial, sagittal and coronal reconstructions were obtained. One or more of the following dose reduction techniques were used: Automated exposure control, adjustment of the mA and k V according to patient size, and iterative reconstruction. Unless otherwise specified, incidental findings do not require dedicated imaging follow-up. COMPARISON: 10/30/2016 CT. 01/05/2025 abdomen ultrasound. 03/17/2025 abdomen radiograph FINDINGS: LOWER CHEST: Small layering bilateral pleural effusions with underlying subsegmental atelectasis. Mil d to moderate pericardial effusion. Stable moderate cardiomegaly. LIVER: Mild fatty liver is present. No focal lesion or biliary dilataion is seen. BILIARY SYSTEM: No suspicious abnormalities. SPLEEN: Normal size. No focal lesion. PANCREAS: No mass, ductal dilation, or maikol-pancreatic fluid. ADRENALS: Normal; no mass. KIDNEYS: Atrophic changes of both kidneys, more progressive compared to prior exam. No suspicious con tour abnormalities or cortical masses. No hydronephrosis. URINARY BLADDER: Unremarkable. GASTROINTESTINAL TRACT: No evidence of free air,, bowel obstruction or abscess. Moderate free ascite s. APPENDIX: Normal appendix. LYMPH NODES: No lymphadenopathy. MUSCULOSKELETAL: No acute or suspicious osseous abnormality. ADDITIONAL FINDINGS: Bilateral inguinal hernias, larger on the right, containing fluid as well as fat . IMPRESSION: Moderate free ascites. Small layering bilateral pleural effusions with underlying subsegmental atelectasis. Mild to moderate pericardial effusion. Stable moderate cardiomegaly. Other chronic findings as above.
[2025-03-17] MEDS ORDERED: MIDODRINE HCL 5 MG TABLET PO SCH (16:00)
--- NOTE | 2025-03-17 19:48 | P.PN ---
Date of Service: 03/17/25 Vital Signs Temp Pulse Resp BP Pulse Ox 97.4 F 90 13 106/81 100 03/17/25 16:00 03/17/25 18:00 03/17/25 18:00 03/17/25 18:00 03/17/25 18:00 Medications Acetaminophen (Acetaminophen 325 Mg Tablet) 650 mg PO Q4HP PRN PRN Reason: Pain scale 2-4 (Mild) Allopurinol (Allopurinol 100 Mg Tab) 100 mg PO BID [facility] Amiodarone HCl (Amiodarone Hcl 200 Mg Tab) 200 mg PO DAILY [facility] Atorvastatin Calcium (Atorvastatin 20 Mg Tab) 20 mg PO BEDTIME [facility] Calcitriol (Calcitrol 0.25 Mcg Cap) 0.5 mcg PO DAILY [facility] Last Admin: 03/17/25 08:20 Dose: 0.5 mcg Calcium Acetate (Calcium Acetate 667 Mg Tab) 1,334 mg PO TIDWM [facility] Last Admin: 03/17/25 16:29 Dose: 1,334 mg Coenzyme Q10 (Coenzyme Q10- 200 Mg Cap) 200 mg PO DAILY [facility] Last Admin: 03/17/25 08:21 Dose: 200 mg Docusate Sodium (Docusate Na 100 Mg Cap) 100 mg PO BID [facility] Last Admin: 03/17/25 08:20 Dose: 100 mg Enteral Nutritional Formula (Nepro Shake 237 Ml Can) 240 ml PO TID [facility] Last Admin: 03/17/25 14:00 Dose: Not Given Epoetin Yfn (Epoetin Yfn 10,000 Unit/Ml Vial) 10,000 unit IV EVERY HD [facility] Last Admin: 03/16/25 11:08 Dose: 10,000 unit Ergocalciferol (Drisdol (Vitamin D=Ergocalciferol) 17111 Unit Cap) 50,000 unit PO Q7D@0900 [facility] Last Admin: 03/16/25 08:25 Dose: 50,000 unit Heparin Sodium (Porcine) (Heparin 5000 Unit/Ml 1 Ml Vial) 5,000 unit SQ Q12HR [facility] Last Admin: 03/17/25 08:20 Dose: 5,000 unit Home Med (Atovaquone [Atovaquone]) 1,500 mg PO DAILY [facility] Hydromorphone HCl (Hydromorphone Hcl 0.5 Mg/0.5 Ml Inj) 0.5 mg IV Q4H PRN PRN Reason: Pain scale 8-10 (Severe) Last Admin: 03/17/25 16:30 Dose: 0.5 mg Albumin Human (Albumin 25%) 50 mls @ 100 mls/hr IV EVERY HD [facility] Mannitol (Mannitol 25% 12.5 Gm/50 Ml Vial) 12.5 gm IV EVERY HD PRN PRN Reason: PRN FOR BP SUPPORT AT HD Midodrine (Midodrine Hcl 5 Mg Tablet) 10 mg PO [id number] [facility] Last Admin: 03/17/25 16:29 Dose: 10 mg Ondansetron HCl (Ondansetron 4 Mg/2 Ml Vial) 4 mg IV Q6HP PRN PRN Reason: NAUSEA / VOMITING Last Admin: 03/16/25 13:20 Dose: 4 mg Prednisone (Prednisone 10 Mg Tab) 30 mg PO DAILY [facility] Promethazine HCl (Promethazine Inj 25 Mg/Ml Amp) 12.5 mg IM Q8H PRN PRN Reason: NAUSEA / VOMITING Last Admin: 03/16/25 16:58 Dose: 12.5 mg Sevelamer Carbonate (Sevelamer Carbonate 800 Mg Tablet) 800 mg PO TIDWM [facility] Last Admin: 03/17/25 16:29 Dose: 800 mg Vitamin B Complex/Vit C/Folic Acid (Multivitamins,Therapeut 1 Tab) 1 tab PO DAILY [facility] Last Admin: 03/17/25 08:20 Dose: 1 tab Assessment/ Plan: Nephrology Dyspnea improved post dialysis No chest pain No acute events overnight Vitals, medications, blood work and imaging reviewed in the chart General: In no apparent distress, Oriented x3, Cooperative HEENT: Atraumatic Neck: Supple Respiratory: Normal air movement Cardiovascular: Regular rate/rhythm, Edema Gastrointestinal: Soft and benign, Non-distended Musculoskeletal: No clubbing, No contractures Integumentary: No rashes, No cyanosis Neurological: Normal speech Laboratory Data (last 24 hrs) 03/14/25 03/14/25 03/14/25 21:59 21:59 21:59 WBC 4.90 Hgb 11.2 L Hct 34.5 L Plt Count 165 PT 18.7 H INR 1.68 Sodium 137 Potassium 3.8 BUN 17 Creatinine 6.90 H Glucose 81 Magnesium 2.1 Total Bilirubin 2.1 H AST 21 ALT < 14 L Alkaline Phosphatase 124 H Imagings Data: EXAM: Chest Single View HISTORY: 64 years Male CHEST PAIN COMPARISON: 01/05/2025 FINDINGS: LUNGS/PLEURA: Pulmonary vascular congestion. Probable small left pleural effusion. CARDIAC/MEDIASTINUM: Moderate cardiomegaly. UPPER ABDOMEN: No significant abnormality. BONES: No acute abnormality. LINES/TUBES/OTHER: Pacemaker/AICD. Right IJ approach dialysis catheter. IMPRESSION: Suspect mild pulmonary edema and small left effusion. Conclusions/Impression: ESRD TTS -HD TIW Chronic Hypotension -Continue Midodrine Systolic Diastolic CHF, A/C Peripheral Edema -UF with HD as tolerated -Continue CoQ10 Hypoalbuminemia -Continue Nepro Anemia in CKD -Retacrit qHD CKD MBD Secondary HyperParathyroidism -Continue Calcitriol and Renvela Hospitalist note reviewed
[2025-03-17] MEDS: ATORVASTATIN 20 MG TAB PO SCH (20:03)
[2025-03-17] MEDS ORDERED: DOCUSATE NA 100 MG CAP PO SCH (21:00)
[2025-03-18 05:43] LABS: Absolute Lymphocytes (CBC) 1.3 K/uL (0.7-4.9); Hematocrit 36.4 % (39.6-49.0); Hemoglobin 11.8 g/dL (13.6-17.9); MCH 27.2 pg (27.0-35.0); MCHC 32.4 g/dL (32.0-36.0); MCV 83.9 fL (80-100); MPV 9.7 fL (7.6-11.3); Nucleated RBC Absolute Count 0.0 (0-0); Nucleated Red Blood Cells % 0.3 % (0-0); RBC Red Blood Cell Count 4.34 M/uL (4.33-5.43); White Blood Count 6.50 thou/uL (4.3-10.9)
[2025-03-18 05:53] LABS: Anion Gap 14.1 mEq/L (5.0-15.0); BUN Blood Urea Nitrogen 23.0 mg/dL (7-18); Magnesium 2.2 mg/dL (1.6-2.4); Potassium 4.1 mEq/L (3.5-5.1)
[2025-03-18 06:00] LABS: Glucose Level 51.0 mg/dL (74-106)
[2025-03-18] MEDS: D5 0.9 NS 1,000 ML IV ONE (06:30)
[2025-03-18] MEDS: D5 0.9 NS 1,000 ML IV SCH ×2 (06:34→21:08)
[2025-03-18] MEDS: predniSONE 10 MG TAB PO SCH (08:18)
[2025-03-18] MEDS: AMIODARONE HCL 200 MG TAB PO SCH (08:19)
[2025-03-18] MEDS: ATOVAQUONE 750 MG/5 ML PO SCH (08:28)
[2025-03-18] MEDS ORDERED: CALCITRIOL 0.5 MCG PO SCH (09:00)
--- NOTE | 2025-03-18 09:27 | P.PN ---
Subjective Date of Service: 03/18/25 Chief Complaint: NSTEMI Subjective: Worsening (Hypoglycemic this morning with blood glucose of 51. Started on dextrose infusion and Megace. Checking a.m. cortisol) Physical Examination - Vital Signs Temperature: 97.3 F Blood Pressure: 101/68 Pulse: 88 Respirations: 22 Pulse Ox (%): 100 - Physical Exam General: In no apparent distress, Cooperative HEENT: Atraumatic, Normocephalic Respiratory: Clear to auscultation bilaterally, Normal air movement Cardiovascular: No edema, Normal pulses, Regular rate/rhythm, Normal S1 S2, Other (Right chest hemodialysis catheter) Neurological: Normal speech - Studies Medications List Reviewed: Yes Assessment And Plan - Plan Assessment Patient is 64-year -[place] male with known history of hypertension, hyperlipidemia, atrial fibrillation and ESRD on hemodialysis. He was admitted after he presented with palpitations, shortness of breath and chest pain. Cardiology was consulted due to elevated troponin. He has a recent history of a normal cardiac cath. Cardiology has signed off. He is currently being m onitored for borderline blood pressure and hypoglycemia. Patient has poor appetite. CT abdomen and pelvis did not reveal any concerning pathology. Persistent hypoglycemia Hypotension and lactic acidosisresolved Right inguinal herniaCT abdomen and pelvis without evidence of bowel ischemia or obstruction Acute on chronic combined systolic and diastolic CHF Atrial fibrillation Type II [place] ESRD Plan: Started on dextrose infusion and Megace today Appreciate assistance from nutrition Antihypertensives have been held due to borderline blood pressure Routine hemodialysis as tolerated Amiodarone if blood pressure permits Resume apixaban
[2025-03-18] MEDS: MEGESTROL 400 MG/10 ML UCUP PO SCH (09:51)
[2025-03-18] MEDS: MIDODRINE HCL 5 MG TABLET PO ONE (10:16)
--- NOTE | 2025-03-18 11:18 | P.PN ---
Date of Service: 03/18/25 Vital Signs Temp Pulse Resp BP Pulse Ox 97.3 F 88 14 97/71 97 03/18/25 09:27 03/18/25 10:00 03/18/25 10:00 03/18/25 10:00 03/18/25 10:00 Medications Acetaminophen (Acetaminophen 325 Mg Tablet) 650 mg PO Q4HP PRN PRN Reason: Pain scale 2-4 (Mild) Allopurinol (Allopurinol 100 Mg Tab) 100 mg PO BID [facility] Last Admin: 03/18/25 08:19 Dose: 100 mg Amiodarone HCl (Amiodarone Hcl 200 Mg Tab) 200 mg PO DAILY [facility] Last Admin: 03/18/25 08:19 Dose: 200 mg Apixaban (Apixaban 2.5 Mg Tablet) 2.5 mg PO BID [facility] Atorvastatin Calcium (Atorvastatin 20 Mg Tab) 20 mg PO BEDTIME [facility] Last Admin: 03/17/25 20:03 Dose: 20 mg Calcitriol (Calcitrol 0.25 Mcg Cap) 0.5 mcg PO DAILY [facility] Last Admin: 03/18/25 08:19 Dose: 0.5 mcg Calcium Acetate (Calcium Acetate 667 Mg Tab) 1,334 mg PO TIDWM [facility] Last Admin: 03/18/25 08:18 Dose: 1,334 mg Coenzyme Q10 (Coenzyme Q10- 200 Mg Cap) 200 mg PO DAILY [facility] Last Admin: 03/18/25 08:18 Dose: 200 mg Docusate Sodium (Docusate Na 100 Mg Cap) 100 mg PO BID [facility] Last Admin: 03/18/25 08:19 Dose: 100 mg Enteral Nutritional Formula (Nepro Shake 237 Ml Can) 240 ml PO TID [facility] Last Admin: 03/18/25 08:19 Dose: 240 ml Epoetin Yfn (Epoetin Yfn 10,000 Unit/Ml Vial) 10,000 unit IV EVERY HD [facility] Last Admin: 03/16/25 11:08 Dose: 10,000 unit Ergocalciferol (Drisdol (Vitamin D=Ergocalciferol) 20872 Unit Cap) 50,000 unit PO Q7D@0900 [facility] Last Admin: 03/16/25 08:25 Dose: 50,000 unit Heparin Sodium (Porcine) (Heparin 1,000 Unit/Ml Vial) 6,000 unit IV EVERY HD PRN PRN Reason: FOR DIALYSIS CATHETER CARE Heparin Sodium (Porcine) (Heparin 1,000 Unit/Ml Vial) 3,000 unit IV EVERY HD PRN PRN Reason: Prevent Hd System Clotting Home Med (Atovaquone [Atovaquone]) 1,500 mg PO DAILY [facility] Last Admin: 03/18/25 08:28 Dose: Not Given Hydromorphone HCl (Hydromorphone Hcl 0.5 Mg/0.5 Ml Inj) 0.5 mg IV Q4H PRN PRN Reason: Pain scale 8-10 (Severe) Last Admin: 03/18/25 06:36 Dose: 0.5 mg Albumin Human (Albumin 25%) 50 mls @ 100 mls/hr IV EVERY HD [facility] Dextrose/Sodium Chloride (D5w Ns 1-Liter Bag) 1,000 mls @ 75 mls/hr IV .[id number] [facility] Last Admin: 03/18/25 06:34 Dose: 1,000 mls Mannitol (Mannitol 25% 12.5 Gm/50 Ml Vial) 12.5 gm IV EVERY HD PRN PRN Reason: PRN FOR BP SUPPORT AT HD Megestrol Acetate (Megestrol 400 Mg/10 Ml Ucup) 400 mg PO BID [facility] Last Admin: 03/18/25 09:51 Dose: 400 mg Midodrine (Midodrine Hcl 5 Mg Tablet) 10 mg PO [id number] [facility] Last Admin: 03/18/25 06:08 Dose: 10 mg Ondansetron HCl (Ondansetron 4 Mg/2 Ml Vial) 4 mg IV Q6HP PRN PRN Reason: NAUSEA / VOMITING Last Admin: 03/16/25 13:20 Dose: 4 mg Prednisone (Prednisone 10 Mg Tab) 30 mg PO DAILY [facility] Last Admin: 03/18/25 08:18 Dose: 30 mg Promethazine HCl (Promethazine Inj 25 Mg/Ml Amp) 12.5 mg IM Q8H PRN PRN Reason: NAUSEA / VOMITING Last Admin: 03/16/25 16:58 Dose: 12.5 mg Sevelamer Carbonate (Sevelamer Carbonate 800 Mg Tablet) 800 mg PO TIDWM [facility] Last Admin: 03/18/25 08:00 Dose: 800 mg Vitamin B Complex/Vit C/Folic Acid (Multivitamins,Therapeut 1 Tab) 1 tab PO DAILY [facility] Last Admin: 03/18/25 08:18 Dose: 1 tab Assessment/ Plan: Nephrology CARRION No chest pain Weakness, fatigue and depression. Recently lost is . Poor appetite with low BG this morning No acute events overnight Vitals, medications, blood work and imaging reviewed in the chart General: In no apparent distress, Oriented x3, Cooperative HEENT: Atraumatic Neck: Supple Respiratory: Normal air movement Cardiovascular: Regular rate/rhythm, Edema Gastrointestinal: Soft and benign, Non-distended Musculoskeletal: No clubbing, No contractures Integumentary: No rashes, No cyanosis Neurological: Normal speech Laboratory Data (last 24 hrs) 03/14/25 03/14/25 03/14/25 21:59 21:59 21:59 WBC 4.90 Hgb 11.2 L Hct 34.5 L Plt Count 165 PT 18.7 H INR 1.68 Sodium 137 Potassium 3.8 BUN 17 Creatinine 6.90 H Glucose 81 Magnesium 2.1 Total Bilirubin 2.1 H AST 21 ALT < 14 L Alkaline Phosphatase 124 H Imagings Data: EXAM: Chest Single View HISTORY: 64 years Male CHEST PAIN COMPARISON: 01/05/2025 FINDINGS: LUNGS/PLEURA: Pulmonary vascular congestion. Probable small left pleural effusion. CARDIAC/MEDIASTINUM: Moderate cardiomegaly. UPPER ABDOMEN: No significant abnormality. BONES: No acute abnormality. LINES/TUBES/OTHER: Pacemaker/AICD. Right IJ approach dialysis catheter. IMPRESSION: Suspect mild pulmonary edema and small left effusion. Conclusions/Impression: ESRD TTS -HD TIW Chronic Hypotension -Continue Midodrine -Extra Midodrine X1 today -Cortisol pending Systolic Diastolic CHF, A/C Peripheral Edema -UF with HD as tolerated -Continue CoQ10 -Low sodium diet Hypoalbuminemia -Continue Nepro Anemia in CKD -Retacrit qHD CKD MBD Secondary HyperParathyroidism -Continue Calcitriol and Renvela Hospitalist note reviewed
[2025-03-18] MEDS: HYDROMORPHONE HCL 1 MG/ML INJ IV ONE (16:22)
[2025-03-18] MEDS: APIXABAN 2.5 MG TABLET PO SCH (20:58)
[2025-03-18] MEDS: ACETAMINOPHEN 325 MG TABLET PO PRN (21:14)
[2025-03-19 06:43] LABS: Absolute Lymphocytes (CBC) 1.0 K/uL (0.7-4.9); Hematocrit 35.8 % (39.6-49.0); Hemoglobin 11.6 g/dL (13.6-17.9); MCH 27.1 pg (27.0-35.0); MCHC 32.4 g/dL (32.0-36.0); MCV 83.5 fL (80-100); MPV 9.9 fL (7.6-11.3); Nucleated RBC Absolute Count 0.0 (0-0); Nucleated Red Blood Cells % 0.4 % (0-0); RBC Red Blood Cell Count 4.28 M/uL (4.33-5.43); White Blood Count 7.20 thou/uL (4.3-10.9)
[2025-03-19 07:08] LABS: Anion Gap 12.2 mEq/L (5.0-15.0); BUN Blood Urea Nitrogen 16.0 mg/dL (7-18); Glucose Level 172.0 mg/dL (74-106); Potassium 4.2 mEq/L (3.5-5.1)
[2025-03-19] MEDS: NA CHLORIDE 0.9% 500 ML IV ONE (08:57)
[2025-03-19] MEDS: LIDOCAINE 4% PATCH TOP SCH (08:57)
--- NOTE | 2025-03-19 11:39 | P.PN ---
Nephrology note (S) Pt continues to have recurrent admissions for similar issues, including chronic dyspnea, CP, palpitations, weakness, difficulty ambulating, currently citing b/l inguinal hernias and some lightheadedness as to his limitations (O) Vitals reviewed in the EMR General: In no apparent distress, Cachectic, Other (Appears chronically ill) HEENT: Atraumatic, Normocephalic, off O2 Neck: Supple, Rt IJ TDC Respiratory: Other (No rhonchi or wheezing), mildly diminished at bases Cardiovascular: Other (Non tachy, no cardiac gallop heart sounds appreciated) Gastrointestinal: Soft and benign, mildly distended, NT, b/l Rt > Lt inguinal hernias Musculoskeletal: No swelling, No contractures Integumentary: No rashes, No erythema Neurological: Normal speech, Normal tone, Normal affect Laboratory Data (last 24 hrs) Reviewed in the EMR Conclusions/Impression: 1. 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 Dialyzed Thurs, gentle HD tmrw per OP TTS schedule. Metab profile pre-HD shows no sig azotemia likely reflecting poor intake, may need to amend orders as OP to perform partial SEQ/UF dialysis for vol management -Ok to use megace for appetite stimulant but will need to lower dose 2. 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 Chronic troponin leak. Reports of no obstructive CAD on prior LHC, lower BP and renal failure state prevents ef fective use of other GDMT as recommended by Cardiology. S/p AICD recently Needs to f/u advanced HF team(s) at [facility] 3. Chronic HTN with heart and kidney disease in the past now with hypotension of HD, at other times -f/u BP closely, has been in cardiogenic shock in the past, cont Midodrine with holding parameters for BP support on HD, other. Sonny Cabral MD, [facility]
--- NOTE | 2025-03-19 13:46 | P.PN ---
Subjective Date of Service: 03/19/25 Chief Complaint: NSTEMI Subjective: Other (Patient hypotensive today. 500 cc of normal saline bolus given. Midodrine increased from twice daily to 3 times daily. Continues to complain of right groin pain.) Physical Examination - Vital Signs Temperature: 98.2 F Blood Pressure: 97/69 Pulse: 94 Respirations: 18 Pulse Ox (%): 98 - Physical Exam General: Acute distress HEENT: Atraumatic, Normocephalic Respiratory: Clear to auscultation bilaterally, Normal air movement Cardiovascular: No edema, Normal pulses, Regular rate/rhythm, Normal S1 S2, Other (Right hemodialysis catheter) Gastrointestinal: Other (Right inguinal hernia) Neurological: Normal speech - Studies Medications List Reviewed: Yes Assessment And Plan - Plan Assessment Patient is 64-year -Israeli male with known history of hypertension, hyperlipidemia, atrial fibrillation and ESRD on hemodialysis. He was admitted after he presented with palpitations, shortness of breath and chest pain. Cardiology was consulted due to elevated troponin. He has a recent history of a normal cardiac cath. Cardiology has signed off. He is currently being monitored for borderline blood pressure and hypoglycemia. Patient has poor appetite. CT abdomen and pelvis did not reveal any concerning pathology. Persistent hypoglycemia Poor appetite Hypotension Right inguinal herniaCT abdomen and pelvis without evidence of bowel ischemia or obstruction. Needs nonemergent surgery Acute on chronic combined systolic and diastolic CHF Atrial fibrillation Type II DC ESRD Plan: Given a trial of Megace Will stop dextrose infusion and monitor blood glucose while on p.o. diet Midodrine increased from twice daily to 3 times daily for persistent hypotension Pain control. He has a right inguinal Case discussed with Dr. Emmanuel. If he still here on Saturday, he be considered for right inguinal hernia repair Continue routine hemodialysis as tolerated Continue amiodarone and apixaban for atrial fibrillation Anticipate patient to be here for the next 2 to 3 days for blood pressure control and surgical repair of hernia next week.
[2025-03-19] MEDS: MIDODRINE HCL 5 MG TABLET PO SCH (13:53)
[2025-03-19] MEDS: HYDROCODONE/APAP 7.5/325 MG TAB PO ONE (22:14)
[2025-03-20] MEDS: ALBUMIN HUMAN 25% 100 ML IV ONE (09:00)
[2025-03-20] MEDS: MEGESTROL 400 MG/10 ML UCUP PO SCH (09:04)
[2025-03-20 09:11] LABS: Absolute Lymphocytes (CBC) 1.2 K/uL (0.7-4.9); Hematocrit 36.0 % (39.6-49.0); Hemoglobin 11.6 g/dL (13.6-17.9); MCH 27.3 pg (27.0-35.0); MCHC 32.3 g/dL (32.0-36.0); MCV 84.5 fL (80-100); MPV 9.8 fL (7.6-11.3); Nucleated RBC Absolute Count 0.1 (0-0); Nucleated Red Blood Cells % 0.7 % (0-0); RBC Red Blood Cell Count 4.26 M/uL (4.33-5.43); White Blood Count 8.90 thou/uL (4.3-10.9)
[2025-03-20 09:47] LABS: Anion Gap 14.9 mEq/L (5.0-15.0); BUN Blood Urea Nitrogen 23.0 mg/dL (7-18); Glucose Level 112.0 mg/dL (74-106); Potassium 4.9 mEq/L (3.5-5.1)
--- NOTE | 2025-03-20 11:35 | P.PN ---
Subjective Date of Service: 03/20/25 Chief Complaint: NSTEMI Subjective: Improving (Patient is normotensive. Blood glucose within normal limits. Unfortunately, he still has the right inguinal hernia which is preventing his movement. He lives alone. He would prefer for inpatient surgical repair. Dr. Emmanuel aware.) Physical Examination - Vital Signs Temperature: 97.8 F Blood Pressure: 101/78 Pulse: 108 Respirations: 18 Pulse Ox (%): 96 - Physical Exam General: Alert, In no apparent distress, Cooperative HEENT: Atraumatic, Normocephalic Respiratory: Clear to auscultation bilaterally, Normal air movement Cardiovascular: No edema, Normal pulses, Regular rate/rhythm, Normal S1 S2 Gastrointestinal: Other (Right inguinal hernia) Neurological: Normal speech - Studies Medications List Reviewed: Yes Assessment And Plan - Plan Assessment Patient is 64-year -Beninese male with known history of hypertension, hyperlipidemia, atrial fibrillation and ESRD on hemodialysis. He was admitted after he presented with palpitations, shortness of breath and chest pain. Cardiology was consulted due to elevated troponin. He has a recent history of a normal cardiac cath. Cardiology has signed off. He is currently being monitored for borderline blood pressure and hypoglycemia. Patient has poor appetite. CT abdomen and pelvis did not reveal any concerning pathology. Persistent hypoglycemia Poor appetite Hypotension Right inguinal herniaCT abdomen and pelvis without evidence of bowel ischemia or obstruction. Needs nonemergent surgery Acute on chronic combined systolic and diastolic CHF Atrial fibrillation Type II HI ESRD Plan: Patient is medically stable His appetite has improved Megace, blood glucose within normal limit Blood pressure holding up as well with midodrine He is pending surgical repair of right inguinal hernia with Dr. Emmanuel early n ext week Hernia severely affecting his ability to complete his daily tasks. He lives alone Continue routine hemodialysis as tolerated Continue amiodarone for atrial fibrillation Hold apixaban in anticipation for surgery early next week Anticipate patient to be here for the next 2 to 3 days for blood pressure control and surgical repair of hernia next week.
--- NOTE | 2025-03-20 17:21 | P.PN ---
Nephrology note (S) Pt continues to have recurrent admissions for similar issues, including chronic dyspnea, CP, palpitations, weakness, difficulty ambulating, currently citing b/l inguinal hernias and some lightheadedness as to his limitations. Seen post HD, tolerated session without reports of any adverse events. Seen sitting up at side of bed eating some supper. Wanting to get hernia repaired, plan per IM noted (O) Vitals reviewed in the EMR General: In no apparent distress, Cachectic, Other (Appears chronically ill) HEENT: Atraumatic, Normocephalic, off O2 Neck: Supple, Rt IJ TDC Respiratory: Other (No rhonchi or wheezing), mildly diminished at bases Cardiovascular: Other (Non tachy, no cardiac gallop heart sounds appreciated) Gastrointestinal: Soft and benign, mildly distended, NT, b/l Rt > Lt inguinal hernias Musculoskeletal: No swelling, No contractures Integumentary: No rashes, No erythema Neurological: Normal speech, Normal tone, Normal affect Laboratory Data (last 24 hrs) Reviewed in the EMR Conclusions/Impression: 1. 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 Dialyzed Thurs, gentle HD today per OP TTS schedule. See HD orders for details. Metab profile pre-HD shows no sig azotemia likely reflecting poor intake, may need to amend orders as OP to perform partial SEQ/UF dialysis for vol management -Ok to use megace for appetite stimulant but will need to lower dose 2. 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 Chronic troponin leak. Reports of no obstructive CAD on prior LHC, lower BP and renal failure state prevents e ffective use of other GDMT as recommended by Cardiology. S/p AICD recently Needs to f/u advanced HF team(s) at [facility] Tachycardia unspecified. Cardiology note reviewed, resume low dose Toprol XL and will dose at bedtime with holding parameters. 3. Chronic HTN with heart and kidney disease in the past now with hypotension of HD, at other times -f/u BP closely, has been in cardiogenic shock in the past, cont Midodrine with holding parameters for BP support on HD, other. Sonny Cabral MD, CHRISTOPHER
[2025-03-20] MEDS: CALCIUM ACETATE 667 MG TAB PO SCH (17:36)
[2025-03-20] MEDS: METOPROLOL XL 25 MG TAB PO SCH (20:32)
--- NOTE | 2025-03-21 13:14 | P.PN ---
Nephrology note (S) Pt complains of increased Rt groin pain when seen, afebrile, inguinal hernia appears reducible. (O) Vitals reviewed in the EMR General: In no apparent distress, Cachectic, Other (Appears chronically ill) HEENT: Atraumatic, Normocephalic, off O2 Neck: Supple, Rt IJ TDC Respiratory: Other (No rhonchi or wheezing), mildly diminished at bases Cardiovascular: Other (Non tachy, no cardiac gallop heart sounds appreciated) Gastrointestinal: Soft and benign, mildly distended, NT, b/l Rt > Lt inguinal hernias Musculoskeletal: No swelling, No contractures Integumentary: No rashes, No erythema Neurological: Normal speech, Normal tone, Normal affect Laboratory Data (last 24 hrs) Reviewed in the EMR Conclusions/Impression: 1. 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 Dialyzed Thurs, gentle HD today per OP TTS schedule. See HD orders for details. Metab profile pre-HD shows no sig azotemia likely reflecting poor intake, may need to amend orders as OP to perform partial SEQ/UF dialysis for vol management -Ok to use megace for appetite stimulant but did need to lower dose 2. 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 Chronic troponin leak. Reports of no obstructive CAD on prior LHC, lower BP and renal failure state prevents effective use of other GDMT as recommended by Cardiology. S/p AICD recently Needs to f/u advanced HF team(s) at [facility] Tachycardia unspecified. Cardiology note reviewed, resumed low dose Toprol XL and will dose at bedtime with holding parameters. 3. Chronic HTN with heart and kidney disease in the past now with hypotension of HD, at other times -f/u BP closely, has been in cardiogenic shock in the past, cont Midodrine with holding parameters for BP support on HD, other. 4. Large b/l inguinal hernia repairs. Defer to IM team to coordinate surgery with gen surgery staff Sonny Cabral MD, CHRISTOPHER
--- NOTE | 2025-03-21 15:28 | P.PN ---
Subjective Date of Service: 03/21/25 Chief Complaint: NSTEMI Subjective: Improving (Patient is progressing well. He is medically stable. He is staying in the hospital for right inguinal repair by Dr. Emmanuel tentatively planned for tomorrow.) Physical Examination - Vital Signs Temperature: 97.5 F Blood Pressure: 97/74 Pulse: 100 Respirations: 18 Pulse Ox (%): 93 - Physical Exam General: Alert, In no apparent distress, Cooperative HEENT: Atraumatic, Normocephalic Respiratory: Clear to auscultation bilaterally, Normal air movement Cardiovascular: No edema, Normal pulses, Regular rate/rhythm, Normal S1 S2 Gastrointestinal: Other (Right inguinal hernia) Neurological: Normal speech - Studies Medications List Reviewed: Yes Assessment And Plan - Plan Assessment Patient is 64-year -Monegasque male with known history of hypertension, hyperlipidemia, atrial fibrillation and ESRD on hemodialysis. He was admitted after he presented with palpitations, shortness of breath and chest pain. Cardiology was consulted due to elevated troponin. He has a recent history of a normal cardiac cath. Cardiology has signed off. He is currently being monitored for borderline blood pressure and hypoglycemia. Patient has poor appetite. CT abdomen and pelvis did not reveal any concerning pathology. Patient lives alone and he was previously independent in his ADLs. However, recently his inguinal hernia has severely restricted him. He is staying for surgical repair of his hernia Persistent hypoglycemia Poor appetite Hypotension Right inguinal herniaCT abdomen and pelvis without evidence of bowel ischemia or obstruction. Needs nonemergent surgery Acute on chronic combined systolic and diastolic CHF Atrial fibrillation Type II SD ESRD Plan: Patient is medically stable His appetite has improved Megace, blood glucose within normal limit Blood pressure holding up as well with midodrine He is pending surgical repair of right inguinal hernia with Dr. Emmanuel Case discussed with Dr. Emmanuel. Will keep n.p.o. after midnight tentative hernia repair tomorrow Continue routine hemodialysis as tolerated Continue amiodarone for atrial fibrillation Hold apixaban in anticipation for surgery Anticipate patient to be here for the next 1 to 2 days
[2025-03-21] MEDS: D50W 25 GM/50 ML SYRINGE IV ONE (19:59)
[2025-03-21] MEDS ORDERED: D50W 25 GM/50 ML SYRINGE IV PRN (20:00)
[2025-03-21] MEDS: D10W 250 ML IV ONE (20:21)
[2025-03-22] MEDS: D10W 125 ML IV PRN (00:03)
[2025-03-22 07:45] LABS: Absolute Lymphocytes (CBC) 0.8 K/uL (0.7-4.9); Hematocrit 40.4 % (39.6-49.0); Hemoglobin 12.6 g/dL (13.6-17.9); MCH 27.2 pg (27.0-35.0); MCHC 31.2 g/dL (32.0-36.0); MCV 87.2 fL (80-100); MPV 10.5 fL (7.6-11.3); Nucleated RBC Absolute Count 0.6 (0-0); Nucleated Red Blood Cells % 4.4 % (0-0); RBC Red Blood Cell Count 4.64 M/uL (4.33-5.43); White Blood Count 12.70 thou/uL (4.3-10.9)
[2025-03-22 07:51] LABS: Anion Gap 25.8 mEq/L (5.0-15.0); BUN Blood Urea Nitrogen 32.0 mg/dL (7-18); Glucose Level 129.0 mg/dL (74-106); Potassium 4.8 mEq/L (3.5-5.1)
--- NOTE | 2025-03-22 08:18 | P.PN ---
Date of Service: 03/22/25 Vital Signs Temp Pulse Resp BP Pulse Ox 98.0 F 76 18 101/59 L 96 03/22/25 04:00 03/22/25 04:00 03/22/25 07:06 03/22/25 04:00 03/22/25 07:06 Medications Acetaminophen (Acetaminophen 325 Mg Tablet) 650 mg PO Q4HP PRN PRN Reason: Pain scale 2-4 (Mild) Last Admin: 03/19/25 08:44 Dose: 650 mg Allopurinol (Allopurinol 100 Mg Tab) 100 mg PO BID [facility] Last Admin: 03/21/25 20:20 Dose: 100 mg Amiodarone HCl (Amiodarone Hcl 200 Mg Tab) 200 mg PO DAILY [facility] Last Admin: 03/21/25 08:04 Dose: 200 mg Atorvastatin Calcium (Atorvastatin 20 Mg Tab) 20 mg PO BEDTIME [facility] Last Admin: 03/21/25 20:20 Dose: 20 mg Calcium Acetate (Calcium Acetate 667 Mg Tab) 667 mg PO TIDWM [facility] Last Admin: 03/21/25 17:20 Dose: 667 mg Coenzyme Q10 (Coenzyme Q10- 200 Mg Cap) 200 mg PO DAILY [facility] Last Admin: 03/21/25 08:04 Dose: 200 mg Docusate Sodium (Docusate Na 100 Mg Cap) 100 mg PO BID [facility] Last Admin: 03/21/25 20:20 Dose: 100 mg Enteral Nutritional Formula (Nepro Shake 237 Ml Can) 240 ml PO TID [facility] Last Admin: 03/21/25 20:17 Dose: Not Given Ergocalciferol (Drisdol (Vitamin D=Ergocalciferol) 19633 Unit Cap) 50,000 unit PO Q7D@0900 [facility] Last Admin: 03/16/25 08:25 Dose: 50,000 unit Heparin Sodium (Porcine) (Heparin 1,000 Unit/Ml Vial) 6,000 unit IV EVERY HD PRN PRN Reason: FOR DIALYSIS CATHETER CARE Last Admin: 03/20/25 16:30 Dose: 6,000 unit Heparin Sodium (Porcine) (Heparin 1,000 Unit/Ml Vial) 3,000 unit IV EVERY HD PRN PRN Reason: Prevent Hd System Clotting Last Admin: 03/20/25 13:30 Dose: 3,000 unit Home Med (Atovaquone [Atovaquone]) 1,500 mg PO DAILY [facility] Last Admin: 03/21/25 09:00 Dose: Not Given Hydromorphone HCl (Hydromorphone Hcl 0.5 Mg/0.5 Ml Inj) 0.5 mg IV Q4H PRN PRN Reason: Pain scale 8-10 (Severe) Last Admin: 03/22/25 07:06 Dose: 0.5 mg Albumin Human (Albumin 25%) 50 mls @ 100 mls/hr IV EVERY HD [facility] Dextrose (Dextrose 10% Water Iv Soln.) 125 mls @ 0 mls/hr IV PRN PRN; Protocol PRN Reason: HYPOGLYCEMIA Last Admin: 03/22/25 00:03 Dose: 125 mls Lidocaine (Lidocaine 4% Patch) 1 patch TOP DAILY [facility] Last Admin: 03/21/25 08:05 Dose: 1 patch Mannitol (Mannitol 25% 12.5 Gm/50 Ml Vial) 12.5 gm IV EVERY HD PRN PRN Reason: PRN FOR BP SUPPORT AT HD Megestrol Acetate (Megestrol 400 Mg/10 Ml Ucup) 400 mg PO DAILY [facility] Last Admin: 03/21/25 08:03 Dose: 400 mg Metoprolol Succinate (Metoprolol Xl 25 Mg Tab) 25 mg PO BEDTIME [facility] Last Admin: 03/21/25 20:17 Dose: Not Given Midodrine (Midodrine Hcl 5 Mg Tablet) 10 mg PO TID [facility] Last Admin: 03/21/25 20:20 Dose: 10 mg Ondansetron HCl (Ondansetron 4 Mg/2 Ml Vial) 4 mg IV Q6HP PRN PRN Reason: NAUSEA / VOMITING Last Admin: 03/22/25 03:53 Dose: 4 mg Prednisone (Prednisone 10 Mg Tab) 30 mg PO DAILY [facility] Last Admin: 03/21/25 08:05 Dose: 30 mg Promethazine HCl (Promethazine Inj 25 Mg/Ml Amp) 12.5 mg IM Q8H PRN PRN Reason: NAUSEA / VOMITING Last Admin: 03/16/25 16:58 Dose: 12.5 mg Sevelamer Carbonate (Sevelamer Carbonate 800 Mg Tablet) 800 mg PO TIDWM [facility] Last Admin: 03/21/25 17:20 Dose: 800 mg Vitamin B Complex/Vit C/Folic Acid (Multivitamins,Therapeut 1 Tab) 1 tab PO DAILY [facility] Last Admin: 03/21/25 08:05 Dose: 1 tab Assessment/ Plan: Nephrology CARRION No chest pain No acute events overnight Vitals, medications, blood work and imaging reviewed in the chart General: In no apparent distress, Oriented x3, Cooperative HEENT: Atraumatic Neck: Supple Respiratory: Normal air movement Cardiovascular: Regular rate/rhythm, Edema Gastrointestinal: Soft and benign, Non-distended Musculoskeletal: No clubbing, No contractures Integumentary: No rashes, No cyanosis Neurological: Normal speech Laboratory Data (last 24 hrs) 03/14/25 03/14/25 03/14/25 21:59 21:59 21:59 WBC 4.90 Hgb 11.2 L Hct 34.5 L Plt Count 165 PT 18.7 H INR 1.68 Sodium 137 Potassium 3.8 BUN 17 Creatinine 6.90 H Glucose 81 Magnesium 2.1 Total Bilirubin 2.1 H AST 21 ALT < 14 L Alkaline Phosphatase 124 H Imagings Data: EXAM: Chest Single View HISTORY: 64 years Male CHEST PAIN COMPARISON: 01/05/2025 FINDINGS: LUNGS/PLEURA: Pulmonary vascular congestion. Probable small left pleural effusion. CARDIAC/MEDIASTINUM: Moderate cardiomegaly. UPPER ABDOMEN: No significant abnormality. BONES: No acute abnormality. LINES/TUBES/OTHER: Pacemaker/AICD. Right IJ approach dialysis catheter. IMPRESSION: Suspect mild pulmonary edema and small left effusion. Conclusions/Impression: ESRD TTS -HD TIW Acute Metabolic Acidosis -HD TIW Chronic Hypotension -Continue Midodrine Systolic Diastolic CHF, A/C Dilated CMP Peripheral Edema -UF with HD as tolerated -Continue CoQ10 -Low sodium diet Hypoalbuminemia -Continue Nepro Anemia in CKD -Retacrit qHD CKD MBD Secondary HyperParathyroidism Hypercalcemia -Continue Renvela -Discontinue [facility] Hospitalist note reviewed
[2025-03-22] MEDS ORDERED: LIDOCAINE 1% MPF 5 ML VIAL ONE (09:09)
[2025-03-22] MEDS ORDERED: MIDAZOLAM HCL 2 MG/2 ML INJ ONE (09:09)
[2025-03-22] MEDS ORDERED: FENTANYL CITR 100 MCG/2 ML ONE (09:09)
[2025-03-22] MEDS ORDERED: KETOROLAC 30 MG/ML INJ ONE (09:09)
[2025-03-22] MEDS: NA CHLORIDE 0.9% 500 ML ONE (10:00)
[2025-03-22] MEDS ORDERED: ROCURONIUM 50 MG/5 ML VIAL IV ONE (10:01)
[2025-03-22 10:34] LABS: Differential Total Cells Count 100; Segmented Neutrophils 86 % (40-80)
[2025-03-22 10:35] LABS: Anisocytosis 1+; Blood Morphology Comment NOTED (NOT SEEN); Poikilocytosis 1+; Polychromasia 1+
--- NOTE | 2025-03-22 10:38 | P.CNS ---
Date of Consult: 03/15/25 Chief Complaint: NSTEMI History of Present Illness: 64 y/o with tender right inguinal hernia with on off reduction, tender.. Admitted for cardiac disease Allergies Penicillins Allergy (Verified 10/27/22 21:16) Hives/Rash Home Medications: Amiodarone HCl [Cordarone*] 200 mg PO DAILY 07/27/24 Atorvastatin Calcium [Lipitor] 20 mg PO BEDTIME 07/27/24 Metoprolol Succinate [Toprol Xl*] 1 tab PO BID 07/27/24 Calcium Acetate [Phoslo*] 1,334 mg PO TIDWM #180 tab 11/06/24 Epoetin [Retacrit] 10,000 unit IV EVERY HD vial 11/06/24 calcitrioL [Calcitriol] 0.5 mcg PO DAILY #30 cap 11/06/24 Atovaquone 1,500 mg PO DAILY 11/19/24 predniSONE [Deltasone*] 30 mg PO DAILY 12/18/24 Apixaban [Eliquis *] 2.5 mg PO BID 30 Days #60 tab 01/14/25 Docusate [Colace Cap*] 100 mg PO BID 30 Days #60 cap 01/14/25 Furosemide [Lasix*] 80 mg PO BIDL 30 Days #120 tab 01/14/25 Midodrine HCl [Proamatine*] 5 mg PO [id number] 30 Days #60 tab 01/14/25 Sacubitril/Valsartan [Entresto 24 mg-26 mg Tablet] 1 tab PO BID 30 Days #60 tab 01/14/25 allopurinoL [Zyloprim*] 100 mg PO BID 30 Days #60 tab 01/14/25 Bumetanide [Bumex] 2 mg PO DAILY 03/15/25 - Past Medical/Surgical History Diabetic: No -: HTN -: Systolic congestive 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 Rossi/ Dr. Cabral) -: CAD -: Mural thrombus-left ventricle-resolved, on Eliquis -: CVA/ TIA -: Hep C--rec'd treatment 08/2023 -: Cardiac stent placement July 2019 -: removal of L hand 5th digit -: Cardiac catheterization 08/2023 Psychosocial/ Personal History: Patient currently lives at home with his and is on disability due to heart condition. - Family History Father Medical History: Cancer, Liver disease Mother Medical History: GI disease, Other (see notes) Notes: NA - Social History Smoking Status: Unknown if ever smoked Alcohol use: No CD- Drugs: No Caffeine use: Yes Review of Systems General: Malaise Respiratory: As per HPI Cardiovascular: As per HPI Gastrointestinal: Abdominal Pain, Distention Genitourinary: As per HPI Integumentary: Unremarkable Neurological: Weakness Physical Examination Temp Pulse Resp BP Pulse Ox 97.4 F 83 14 91/68 92 03/22/25 08:00 03/22/25 08:00 03/22/25 08:00 03/22/25 08:00 03/22/25 08:00 General: Alert, Oriented x3 HEENT: PERRLA, EOMI Neck: Supple Respiratory: Clear to auscultation bilaterally Cardiovascular: Irregular heart rate/rhythm Gastrointestinal: Normal bowel sounds, Soft and benign, No rebound, No guarding, Other (Right inguinal hernia reduced at bedside. ) Musculoskeletal: No erythema, No tenderness, No warmth Neurological: Normal speech Imagings Data: Ct abd reviewed Conclusions/Impression: 64 y/o male with multiple medical problems icluding HI, ESRD with multiple abd wall hernia but the one giving him mejia and discomfort its the right side. Its becoming more difficult for him to reduce. THe patient will be observed in the next 24 -48h from abd standpoint after reducation and if clinically the abdomine becomes acute he may need abd exploration emergently. If he improve , he was explained he importance of elective bilateral inguinal hernia repair with mesh even when its the right side only giving him trouble. BAR of emergent Right inguinal hernia repair with mesh , possible exploratory laparotomy, possible bow el resection which include bu not limited to nfection, bleedig damage to adjacent structure, ,stroke, HI even .
[2025-03-22] MEDS ORDERED: Phenylephrine HCl 10 MG/ML 1 ML VIAL ONE (10:43)
[2025-03-22] MEDS: CIPROFLOXACIN 400mg IV 400 MG/200 ML BAG IV ONE (11:05)
[2025-03-22] MEDS ORDERED: ONDANSETRON 4 MG/2 ML VIAL ONE (11:50)
[2025-03-22] MEDS ORDERED: GLYCOPYRROLATE 0.2 MG/ML SYR ONE (11:58)
[2025-03-22] MEDS ORDERED: NEOSTIGMINE 1 MG/ML -10 ML VIAL ONE (11:58)
[2025-03-22] MEDS: SEVELAMER CARBONATE 800 MG TABLET PO SCH (12:00)
--- NOTE | 2025-03-22 12:20 | P.BOP ---
Preoperative diagnosis: NTEMI, ESRD, incarcerated tender right inguinal hernia Postoperative diagnosis: same Primary procedure: Open repair of incarcerated tender right inguinal hernia with mesh Estimated blood loss: <10cc Specimen: none Findings: inguinal hernia, ascites fatty content, sac imbricated Anesthesia: General Complications: None Transferred to: Recovery Room Condition: Good
[2025-03-22] MEDS: MIDAZOLAM HCL 2 MG/2 ML INJ ONE (13:00)
--- NOTE | 2025-03-22 13:36 | PN ---
Date of Progress Note: 03/22/2025 Mr. Paulino is a 64-year-old patient who came to us with multiple medical problems. We saw the patient when he came initially on 03/15. I saw him in ER, evaluated due to a tender right inguinal hernia. At that moment, we were able to reduce the hernia. He says it is becoming more difficult to be reduc ed. He has numerous medical problems and he was admitted with the heart disease. They have been wor ag for him since the ICU admission. Evaluation by multispecialties including Renal, Primary, Design Quality Engineer. I also received a call once again over the weekend since the hernia that is on the rig ht side became incarcerated again. At this time, it cannot be reduced. We discussed the case with t he primary doctor, Dr. Hodgson, before he signed out yesterday. He has been working over the weekend , getting also the nurse school to see if we need to do this today. The CAT scan initially when we s aw him before shows bilateral inguinal hernias. The right side is giving him more trouble, and at th is time, even though from a medical standpoint, they are almost ready to be discharged, they noticed the hernia to come back in the last few hours. At this time, he does not want to be reduced. The pa tient is tender in that region, so they asked me for the possibility of repair. I discussed the bene fits, alternatives, and risks of repair with the patient, also with the Primary working on the case a t this time with Dr. Hodgson, and he gave us the clearance to at least repair the right side. I expl ained to the patient the benefits, alternatives, and risks of open right inguinal hernia repair, whic h include, but not limited to, infection, bleeding, damage to adjacent structures, anesthesia complic ation, [place], even . Since the hernia cannot be reduced and is very tender today, I believe his ti ssue may be compromised. So the medical doctors are just working on him to clear him. He understand he had some other hernias that we might have to repair in the future and when he is more medically s table, then we will have more time to do so. At this moment, we are trying to repair just the emerging one, which is the right inguinal hernia. The patient was booked in OR. He is NPO. HM/TERRELL Voice ID: [id number] Report ID: [id number]
--- NOTE | 2025-03-22 22:46 | OP ---
Date of Procedure: 03/22/2025 Surgeon: Matteo Emmanuel MD Preoperative Diagnoses: End-stage renal disease, incarcerated tender right inguinal hernia. Postoperative Diagnoses: End-stage renal disease, incarcerated tender right inguinal hernia. Procedure: Open repair of incarcerated tender right inguinal hernia with mesh. Estimated Blood Loss: Less than 10 cc. Specimen: None. Finding: Right inguinal hernia with an ascites content, fatty content. Anesthesia: General plus local. Complications: None. Implant: Mesh is large mesh plug and sheet. Indications: This is the case of a 64-year-old patient who admitted to the hospital at the end of with multiple medical issues, found to have a right inguinal hernia that was very tender, bu t it was quickly reduced. The abdomen was benign all this time. The hernia has been observed while he is take care of his medical issues. He was going to be discharged home and have this done electiv morgan, but the hernia came back and this time did not reduce. He has some other hernias, belly bottoms on the opposite side inguinal region, but the 1 that is really thought cause in the urgency or the e mergency is the right inguinal side, so I talked to the medical doctors. They are going to clear him for to have that side repair since it is the 1 again in trouble and then do the rest electively. Th e patient also agreed. The benefits, alternatives, and risks of open repair of incarcerated right in guinal hernia with mesh fully explained, which include, but not limited to infection, bleeding, damag e to adjacent structures, anesthesia complication, recurrence, PR, and . He also understands th is may not relieve the symptoms. He might need more than one surgical intervention. He was seen by the Renal service, Medical service and Cardiology service. Description Of Procedure: The patient brought to the operating room, placed in supine position. Ane sthesia was done without complication. A time-out was called. Right inguinal region was prepped and draped in sterile fashion and the abdomen too. At that moment, I proceeded then to time-out. Then, after that, I injected local anesthetic on the right inguinal region and then we proceeded to make a n incision in that region that goes through Brennen fascia until we found external oblique aponeurosis that was opened in direction of the fibers. Ilioinguinal nerve, iliohypogastric nerve was identifie d and protected. We had external oblique aponeurosis. [place] was placed around the spermatic cord. We noticed a large lipoma of the cord. A large hernia sac with thick contents seems to be viable. We were able once we have that done, inspected, reduced that and some ascites component to the herni a sac was imbricated. A large mesh plug was placed in that area and then secured in place with 2-0 P rolene. A mesh sheet was placed in the floor of the canal securing that to the pubic tubercle, shelv ing edge of the inguinal ligament, transversalis fascia, and the tails around the spermatic cord with out strangulation. The spermatic cord structures were protected at all times. [place] was removed. After that, we brought the ilioinguinal nerve, iliohypogastric nerve back into the inguinal canal, r econstructed the superficial inguinal ring and closed the external oblique aponeurosis with Prolene s titches. Hemostasis was obtained at all time. Local anesthesia was applied followed by closure of t he Brennen fascia with a Monocryl and then skin with stefany. No bleeding. The sponge count and inst rument counts were correct. Irrigation was done before closure. The patient sent to Recovery in sta ble condition. TOMÁS/TERRELL Voice ID: [id number] Report ID: [id number]
[2025-03-23 05:14] LABS: Absolute Lymphocytes (CBC) 0.8 K/uL (0.7-4.9); Hematocrit 38.7 % (39.6-49.0); Hemoglobin 12.3 g/dL (13.6-17.9); MCH 27.1 pg (27.0-35.0); MCHC 31.8 g/dL (32.0-36.0); MCV 85.1 fL (80-100); MPV 10.3 fL (7.6-11.3); Nucleated RBC Absolute Count 0.3 (0-0); Nucleated Red Blood Cells % 1.5 % (0-0); RBC Red Blood Cell Count 4.55 M/uL (4.33-5.43); White Blood Count 17.00 thou/uL (4.3-10.9)
[2025-03-23 05:32] LABS: Anion Gap 15.4 mEq/L (5.0-15.0); BUN Blood Urea Nitrogen 42.0 mg/dL (7-18); Glucose Level 115.0 mg/dL (74-106); Potassium 4.4 mEq/L (3.5-5.1)
[2025-03-23 09:20] LABS: Arterial Blood Carboxyhemoglob 1.8 % (0.0-1.5); Blood Gas Inspired Oxygen 32.0 %; Blood Gas Oxyhemoglobin 95.0 % (94.0-97.0); Blood O2 Saturation 98.0 % (92.0-98.5)
--- NOTE | 2025-03-23 12:10 | PN ---
Date of Progress Note: 03/23/2025 Subjective: Status post right inguinal hernia repair, history of an [place], history of renal failure, lira d an emergent hernia repair due to incarceration. Patient is doing good. He is currently on hemodia lysis. Awake and alert. No distress. Objective: Chest: Clear. Abdomen: Benign. Intact surgical site. Extremities: Good capillary refill. Laboratory Data: Blood work shows WBC count of 17, with hemoglobin of 12. Potassium is 4.4, creatin ine 7.14. Plan: Continue pain control. When he gets discharged, follow up in my office in a week for roxy gaffney. TOMÁS/TERRELL Voice ID: [id number] Report ID: [id number]
[2025-03-23] MEDS: D50W 25 GM/50 ML SYRINGE IV ONE (17:02)
--- NOTE | 2025-03-23 20:38 | P.PN ---
Date of Service: 03/23/25 Vital Signs Temp Pulse Resp BP Pulse Ox 97.8 F 98 H 16 109/83 96 03/23/25 16:00 03/23/25 16:00 03/23/25 16:00 03/23/25 16:00 03/23/25 06:46 Medications Acetaminophen (Acetaminophen 325 Mg Tablet) 650 mg PO Q4HP PRN PRN Reason: Pain scale 2-4 (Mild) Last Admin: 03/19/25 08:44 Dose: 650 mg Allopurinol (Allopurinol 100 Mg Tab) 100 mg PO BID [facility] Last Admin: 03/23/25 09:10 Dose: 100 mg Amiodarone HCl (Amiodarone Hcl 200 Mg Tab) 200 mg PO DAILY [facility] Last Admin: 03/23/25 09:09 Dose: 200 mg Atorvastatin Calcium (Atorvastatin 20 Mg Tab) 20 mg PO BEDTIME [facility] Last Admin: 03/22/25 20:35 Dose: 20 mg Coenzyme Q10 (Coenzyme Q10- 200 Mg Cap) 200 mg PO DAILY [facility] Last Admin: 03/23/25 09:09 Dose: 200 mg Docusate Sodium (Docusate Na 100 Mg Cap) 100 mg PO BID [facility] Last Admin: 03/23/25 09:10 Dose: 100 mg Enteral Nutritional Formula (Nepro Shake 237 Ml Can) 240 ml PO TID [facility] Last Admin: 03/23/25 14:00 Dose: Not Given Ergocalciferol (Drisdol (Vitamin D=Ergocalciferol) 60401 Unit Cap) 50,000 unit PO Q7D@0900 [facility] Last Admin: 03/23/25 09:09 Dose: 50,000 unit Heparin Sodium (Porcine) (Heparin 1,000 Unit/Ml Vial) 6,000 unit IV EVERY HD PRN PRN Reason: FOR DIALYSIS CATHETER CARE Last Admin: 03/23/25 12:30 Dose: 6,000 unit Heparin Sodium (Porcine) (Heparin 1,000 Unit/Ml Vial) 3,000 unit IV EVERY HD PRN PRN Reason: Prevent Hd System Clotting Last Admin: 03/20/25 13:30 Dose: 3,000 unit Home Med (Atovaquone [Atovaquone]) 1,500 mg PO DAILY [facility] Last Admin: 03/23/25 09:00 Dose: Not Given Albumin Human (Albumin 25%) 50 mls @ 100 mls/hr IV EVERY HD [facility] Dextrose (Dextrose 10% Water Iv Soln.) 125 mls @ 0 mls/hr IV PRN PRN; Protocol PRN Reason: HYPOGLYCEMIA Last Admin: 03/22/25 00:03 Dose: 125 mls Meropenem 500 mg/ Sodium (Chloride) 100 mls @ 200 mls/hr IV Q12HR [facility] Lidocaine (Lidocaine 4% Patch) 1 patch TOP DAILY [facility] Last Admin: 03/23/25 09:09 Dose: 1 patch Mannitol (Mannitol 25% 12.5 Gm/50 Ml Vial) 12.5 gm IV EVERY HD PRN PRN Reason: PRN FOR BP SUPPORT AT HD Megestrol Acetate (Megestrol 400 Mg/10 Ml Ucup) 400 mg PO DAILY [facility] Last Admin: 03/23/25 09:09 Dose: 400 mg Metoprolol Succinate (Metoprolol Xl 25 Mg Tab) 25 mg PO BEDTIME [facility] Last Admin: 03/22/25 20:36 Dose: 25 mg Midodrine (Midodrine Hcl 5 Mg Tablet) 10 mg PO TID [facility] Last Admin: 03/23/25 14:11 Dose: 10 mg Ondansetron HCl (Ondansetron 4 Mg/2 Ml Vial) 4 mg IV Q6HP PRN PRN Reason: NAUSEA / VOMITING Last Admin: 03/22/25 03:53 Dose: 4 mg Prednisone (Prednisone 10 Mg Tab) 30 mg PO DAILY [facility] Last Admin: 03/23/25 09:09 Dose: 30 mg Promethazine HCl (Promethazine Inj 25 Mg/Ml Amp) 12.5 mg IM Q8H PRN PRN Reason: NAUSEA / VOMITING Last Admin: 03/16/25 16:58 Dose: 12.5 mg Sevelamer Carbonate (Sevelamer Carbonate 800 Mg Tablet) 1,600 mg PO TIDWM [facility] Last Admin: 03/23/25 17:00 Dose: Not Given Vitamin B Complex/Vit C/Folic Acid (Multivitamins,Therapeut 1 Tab) 1 tab PO DAILY [facility] Last Admin: 03/23/25 09:10 Dose: 1 tab Assessment/ Plan: Nephrology CARRION No chest pain No acute events overnight Reports severe surgical pain Vitals, medications, blood work and imaging reviewed in the chart General: In no apparent distress, Oriented x3, Cooperative HEENT: Atraumatic Neck: Supple Respiratory: Normal air movement Cardiovascular: Regular rate/rhythm, Edema Gastrointestinal: Soft and benign, Non-distended Musculoskeletal: No clubbing, No contractures Integumentary: No rashes, No cyanosis Neurological: Normal speech Laboratory Data (last 24 hrs) 03/14/25 03/14/25 03/14/25 21:59 21:59 21:59 WBC 4.90 Hgb 11.2 L Hct 34.5 L Plt Count 165 PT 18.7 H INR 1.68 Sodium 137 Potassium 3.8 BUN 17 Creatinine 6.90 H Glucose 81 Magnesium 2.1 Total Bilirubin 2.1 H AST 21 ALT < 14 L Alkaline Phosphatase 124 H Imagings Data: EXAM: Chest Single View HISTORY: 64 years Male CHEST PAIN COMPARISON: 01/05/2025 FINDINGS: LUNGS/PLEURA: Pulmonary vascular congestion. Probable small left pleural effusion. CARDIAC/MEDIASTINUM: Moderate cardiomegaly. UPPER ABDOMEN: No significant abnormality. BONES: No acute abnormality. LINES/TUBES/OTHER: Pacemaker/AICD. Right IJ approach dialysis catheter. IMPRESSION: Suspect mild pulmonary edema and small left effusion. Conclusions/Impression: ESRD TTS -HD TIW Acute Metabolic Acidosis -HD TIW Chronic Hypotension -Continue Midodrine Systolic Diastolic CHF, A/C Dilated CMP Peripheral Edema -UF with HD as tolerated -Continue CoQ10 -Low sodium diet Hypoalbuminemia -Continue Nepro Anemia in CKD -Retacrit qHD CKD MBD Secondary HyperParathyroidism Hypercalcemia -Continue [facility] Hospitalist note reviewed
[2025-03-23] MEDS: Meropenem 500 MG in NA CHLORIDE 0.9% 100 ML IV SCH (21:03)
[2025-03-24 08:31] LABS: Absolute Lymphocytes (CBC) 0.4 K/uL (0.7-4.9); Hematocrit 36.0 % (39.6-49.0); Hemoglobin 11.8 g/dL (13.6-17.9); MCH 27.5 pg (27.0-35.0); MCHC 32.8 g/dL (32.0-36.0); MCV 83.9 fL (80-100); MPV 10.8 fL (7.6-11.3); Nucleated RBC Absolute Count 0.2 (0-0); Nucleated Red Blood Cells % 1.4 % (0-0); RBC Red Blood Cell Count 4.30 M/uL (4.33-5.43); White Blood Count 15.80 thou/uL (4.3-10.9)
[2025-03-24 08:51] LABS: Potassium 4.2 mEq/L (3.5-5.1)
[2025-03-24 08:54] LABS: Anion Gap 15.2 mEq/L (5.0-15.0); BUN Blood Urea Nitrogen 38.0 mg/dL (7-18); Glucose Level 159.0 mg/dL (74-106)
[2025-03-24] MEDS ORDERED: levoFLOXacin 250 MG TAB PO SCH (09:00)
[2025-03-24] MEDS: HYDROCORTISONE SUC 100 MG INJ IV ONE (09:46)
[2025-03-24 10:32] LABS: Differential Total Cells Count 100
[2025-03-24 10:33] LABS: Segmented Neutrophils 92 % (40-80)
[2025-03-24 10:34] LABS: Anisocytosis 1+; Blood Morphology Comment NOTED (NOT SEEN)
[2025-03-24] MEDS: ALBUMIN HUMAN 25% 100 ML IV ONE (10:38)
[2025-03-24 10:39] LABS: Ovalocytes SLIGHT; Polychromasia 1+
--- NOTE | 2025-03-24 21:31 | P.PN ---
Date of Service: 03/24/25 Vital Signs Temp Pulse Resp BP Pulse Ox 97.4 F 66 17 104/76 0 L 03/24/25 20:00 03/24/25 20:21 03/24/25 20:00 03/24/25 20:21 03/24/25 20:00 Medications Acetaminophen (Acetaminophen 325 Mg Tablet) 650 mg PO Q4HP PRN PRN Reason: Pain scale 2-4 (Mild) Last Admin: 03/19/25 08:44 Dose: 650 mg Allopurinol (Allopurinol 100 Mg Tab) 100 mg PO BID [facility] Last Admin: 03/24/25 20:21 Dose: 100 mg Amiodarone HCl (Amiodarone Hcl 200 Mg Tab) 200 mg PO DAILY [facility] Last Admin: 03/24/25 09:19 Dose: 200 mg Atorvastatin Calcium (Atorvastatin 20 Mg Tab) 20 mg PO BEDTIME [facility] Last Admin: 03/24/25 20:21 Dose: 20 mg Coenzyme Q10 (Coenzyme Q10- 200 Mg Cap) 200 mg PO DAILY [facility] Last Admin: 03/24/25 09:19 Dose: 200 mg Docusate Sodium (Docusate Na 100 Mg Cap) 100 mg PO BID [facility] Last Admin: 03/24/25 20:21 Dose: 100 mg Enteral Nutritional Formula (Nepro Shake 237 Ml Can) 240 ml PO TID [facility] Last Admin: 03/24/25 20:22 Dose: 240 ml Ergocalciferol (Drisdol (Vitamin D=Ergocalciferol) 68361 Unit Cap) 50,000 unit PO Q7D@0900 [facility] Last Admin: 03/23/25 09:09 Dose: 50,000 unit Heparin Sodium (Porcine) (Heparin 1,000 Unit/Ml Vial) 6,000 unit IV EVERY HD PRN PRN Reason: FOR DIALYSIS CATHETER CARE Last Admin: 03/23/25 12:30 Dose: 6,000 unit Heparin Sodium (Porcine) (Heparin 1,000 Unit/Ml Vial) 3,000 unit IV EVERY HD PRN PRN Reason: Prevent Hd System Clotting Last Admin: 03/20/25 13:30 Dose: 3,000 unit Home Med (Atovaquone [Atovaquone]) 1,500 mg PO DAILY [facility] Last Admin: 03/24/25 09:00 Dose: Not Given Albumin Human (Albumin 25%) 50 mls @ 100 mls/hr IV EVERY HD [facility] Dextrose (Dextrose 10% Water Iv Soln.) 125 mls @ 0 mls/hr IV PRN PRN; Protocol PRN Reason: HYPOGLYCEMIA Last Admin: 03/22/25 00:03 Dose: 125 mls Meropenem 500 mg/ Sodium (Chloride) 100 mls @ 200 mls/hr IV Q12HR [facility] Last Admin: 03/24/25 20:22 Dose: 100 mls Lidocaine (Lidocaine 4% Patch) 1 patch TOP DAILY [facility] Last Admin: 03/24/25 09:00 Dose: Not Given Mannitol (Mannitol 25% 12.5 Gm/50 Ml Vial) 12.5 gm IV EVERY HD PRN PRN Reason: PRN FOR BP SUPPORT AT HD Megestrol Acetate (Megestrol 400 Mg/10 Ml Ucup) 400 mg PO DAILY [facility] Last Admin: 03/24/25 09:20 Dose: 400 mg Metoprolol Succinate (Metoprolol Xl 25 Mg Tab) 25 mg PO BEDTIME [facility] Last Admin: 03/24/25 20:21 Dose: 25 mg Midodrine (Midodrine Hcl 5 Mg Tablet) 10 mg PO TID [facility] Last Admin: 03/24/25 20:22 Dose: 10 mg Ondansetron HCl (Ondansetron 4 Mg/2 Ml Vial) 4 mg IV Q6HP PRN PRN Reason: NAUSEA / VOMITING Last Admin: 03/22/25 03:53 Dose: 4 mg Prednisone (Prednisone 10 Mg Tab) 30 mg PO DAILY [facility] Last Admin: 03/24/25 09:19 Dose: 30 mg Promethazine HCl (Promethazine Inj 25 Mg/Ml Amp) 12.5 mg IM Q8H PRN PRN Reason: NAUSEA / VOMITING Last Admin: 03/16/25 16:58 Dose: 12.5 mg Sevelamer Carbonate (Sevelamer Carbonate 800 Mg Tablet) 1,600 mg PO TIDWM [facility] Last Admin: 03/24/25 17:25 Dose: 1,600 mg Vitamin B Complex/Vit C/Folic Acid (Multivitamins,Therapeut 1 Tab) 1 tab PO DAILY [facility] Last Admin: 03/24/25 09:22 Dose: 1 tab Assessment/ Plan: Nephrology CARRION No chest pain No acute events overnight Vitals, medications, blood work and imaging reviewed in the chart General: In no apparent distress, Oriented x3, Cooperative HEENT: Atraumatic Neck: Supple Respiratory: Normal air movement Cardiovascular: Regular rate/rhythm, Edema Gastrointestinal: Soft and benign, Non-distended Musculoskeletal: No clubbing, No contractures Integumentary: No rashes, No cyanosis Neurological: Normal speech Laboratory Data (last 24 hrs) 03/14/25 03/14/25 03/14/25 21:59 21:59 21:59 WBC 4.90 Hgb 11.2 L Hct 34.5 L Plt Count 165 PT 18.7 H INR 1.68 Sodium 137 Potassium 3.8 BUN 17 Creatinine 6.90 H Glucose 81 Magnesium 2.1 Total Bilirubin 2.1 H AST 21 ALT < 14 L Alkaline Phosphatase 124 H Imagings Data: EXAM: Chest Single View HISTORY: 64 years Male CHEST PAIN COMPARISON: 01/05/2025 FINDINGS: LUNGS/PLEURA: Pulmonary vascular congestion. Probable small left pleural effusion. CARDIAC/MEDIASTINUM: Moderate cardiomegaly. UPPER ABDOMEN: No significant abnormality. BONES: No acute abnormality. LINES/TUBES/OTHER: Pacemaker/AICD. Right IJ approach dialysis catheter. IMPRESSION: Suspect mild pulmonary edema and small left effusion. Conclusions/Impression: ESRD TTS -HD TIW Acute Metabolic Acidosis -HD TIW Chronic Hypotension -Continue Midodrine Systolic Diastolic CHF, A/C Dilated CMP Peripheral Edema -UF with HD as tolerated -Continue CoQ10 -Low sodium diet Hypoalbuminemia -Continue Nepro Anemia in CKD -Retacrit qHD CKD MBD Secondary HyperParathyroidism -Continue [facility] Hospitalist note reviewed
[2025-03-25] MEDS: ALBUMIN HUMAN 25% 100 ML IV ONE (08:00)
--- NOTE | 2025-03-25 08:16 | P.PN ---
Date of Service: 03/25/25 Vital Signs Temp Pulse Resp BP Pulse Ox 98.1 F 86 18 94/77 96 03/25/25 03:57 03/25/25 03:57 03/25/25 03:57 03/25/25 03:57 03/25/25 03:57 Medications Acetaminophen (Acetaminophen 325 Mg Tablet) 650 mg PO Q4HP PRN PRN Reason: Pain scale 2-4 (Mild) Last Admin: 03/19/25 08:44 Dose: 650 mg Allopurinol (Allopurinol 100 Mg Tab) 100 mg PO BID [facility] Last Admin: 03/24/25 20:21 Dose: 100 mg Amiodarone HCl (Amiodarone Hcl 200 Mg Tab) 200 mg PO DAILY [facility] Last Admin: 03/24/25 09:19 Dose: 200 mg Atorvastatin Calcium (Atorvastatin 20 Mg Tab) 20 mg PO BEDTIME [facility] Last Admin: 03/24/25 20:21 Dose: 20 mg Coenzyme Q10 (Coenzyme Q10- 200 Mg Cap) 200 mg PO DAILY [facility] Last Admin: 03/24/25 09:19 Dose: 200 mg Docusate Sodium (Docusate Na 100 Mg Cap) 100 mg PO BID [facility] Last Admin: 03/24/25 20:21 Dose: 100 mg Enteral Nutritional Formula (Nepro Shake 237 Ml Can) 240 ml PO TID [facility] Last Admin: 03/24/25 20:22 Dose: 240 ml Ergocalciferol (Drisdol (Vitamin D=Ergocalciferol) 20241 Unit Cap) 50,000 unit PO Q7D@0900 [facility] Last Admin: 03/23/25 09:09 Dose: 50,000 unit Heparin Sodium (Porcine) (Heparin 1,000 Unit/Ml Vial) 6,000 unit IV EVERY HD PRN PRN Reason: FOR DIALYSIS CATHETER CARE Last Admin: 03/23/25 12:30 Dose: 6,000 unit Heparin Sodium (Porcine) (Heparin 1,000 Unit/Ml Vial) 3,000 unit IV EVERY HD PRN PRN Reason: Prevent Hd System Clotting Last Admin: 03/20/25 13:30 Dose: 3,000 unit Home Med (Atovaquone [Atovaquone]) 1,500 mg PO DAILY [facility] Last Admin: 03/24/25 09:00 Dose: Not Given Albumin Human (Albumin 25%) 50 mls @ 100 mls/hr IV EVERY HD [facility] Dextrose (Dextrose 10% Water Iv Soln.) 125 mls @ 0 mls/hr IV PRN PRN; Protocol PRN Reason: HYPOGLYCEMIA Last Admin: 03/22/25 00:03 Dose: 125 mls Meropenem 500 mg/ Sodium (Chloride) 100 mls @ 200 mls/hr IV Q12HR [facility] Last Admin: 03/24/25 20:22 Dose: 100 mls Albumin Human (Albumin 25% 25 Gm) 100 mls @ 200 mls/hr IV 1X ONE Stop: 03/25/25 08:29 Lidocaine (Lidocaine 4% Patch) 1 patch TOP DAILY [facility] Last Admin: 03/24/25 09:00 Dose: Not Given Mannitol (Mannitol 25% 12.5 Gm/50 Ml Vial) 12.5 gm IV EVERY HD PRN PRN Reason: PRN FOR BP SUPPORT AT HD Megestrol Acetate (Megestrol 400 Mg/10 Ml Ucup) 400 mg PO DAILY [facility] Last Admin: 03/24/25 09:20 Dose: 400 mg Metoprolol Succinate (Metoprolol Xl 25 Mg Tab) 25 mg PO BEDTIME [facility] Last Admin: 03/24/25 20:21 Dose: 25 mg Midodrine (Midodrine Hcl 5 Mg Tablet) 10 mg PO TID [facility] Last Admin: 03/24/25 20:22 Dose: 10 mg Ondansetron HCl (Ondansetron 4 Mg/2 Ml Vial) 4 mg IV Q6HP PRN PRN Reason: NAUSEA / VOMITING Last Admin: 03/22/25 03:53 Dose: 4 mg Prednisone (Prednisone 10 Mg Tab) 30 mg PO DAILY [facility] Last Admin: 03/24/25 09:19 Dose: 30 mg Promethazine HCl (Promethazine Inj 25 Mg/Ml Amp) 12.5 mg IM Q8H PRN PRN Reason: NAUSEA / VOMITING Last Admin: 03/16/25 16:58 Dose: 12.5 mg Sevelamer Carbonate (Sevelamer Carbonate 800 Mg Tablet) 1,600 mg PO TIDWM [facility] Last Admin: 03/24/25 17:25 Dose: 1,600 mg Vitamin B Complex/Vit C/Folic Acid (Multivitamins,Therapeut 1 Tab) 1 tab PO DAILY [facility] Last Admin: 03/24/25 09:22 Dose: 1 tab Assessment/ Plan: Nephrology CARRION No chest pain Persistent edema No acute events overnight Vitals, medications, blood work and imaging reviewed in the chart General: In no apparent distress, Oriented x3, Cooperative HEENT: Atraumatic Neck: Supple Respiratory: Normal air movement Cardiovascular: Regular rate/rhythm, Edema Gastrointestinal: Soft and benign, Non-distended Musculoskeletal: No clubbing, No contractures Integumentary: No rashes, No cyanosis Neurological: Normal speech Laboratory Data (last 24 hrs) 03/14/25 03/14/25 03/14/25 21:59 21:59 21:59 WBC 4.90 Hgb 11.2 L Hct 34.5 L Plt Count 165 PT 18.7 H INR 1.68 Sodium 137 Potassium 3.8 BUN 17 Creatinine 6.90 H Glucose 81 Magnesium 2.1 Total Bilirubin 2.1 H AST 21 ALT < 14 L Alkaline Phosphatase 124 H Imagings Data: EXAM: Chest Single View HISTORY: 64 years Male CHEST PAIN COMPARISON: 01/05/2025 FINDINGS: LUNGS/PLEURA: Pulmonary vascular congestion. Probable small left pleural effusion. CARDIAC/MEDIASTINUM: Moderate cardiomegaly. UPPER ABDOMEN: No significant abnormality. BONES: No acute abnormality. LINES/TUBES/OTHER: Pacemaker/AICD. Right IJ approach dialysis catheter. IMPRESSION: Suspect mild pulmonary edema and small left effusion. Conclusions/Impression: ESRD TTS -HD TIW -HD today Acute Metabolic Acidosis -HD TIW Chronic Hypotension -Continue Midodrine Systolic Diastolic CHF, A/C Dilated CMP Peripheral Edema -UF with HD as tolerated -Continue CoQ10 -Low sodium diet Hypoalbuminemia -Continue Nepro Anemia in CKD -Retacrit qHD CKD MBD Secondary HyperParathyroidism -Continue [facility] Hospitalist note reviewed
[2025-03-25 08:30] LABS: Albumin 2.5 g/dL (3.4-5.0); Anion Gap 14.5 mEq/L (5.0-15.0); BUN Blood Urea Nitrogen 46.0 mg/dL (7-18); Glucose Level 146.0 mg/dL (74-106); Potassium 4.5 mEq/L (3.5-5.1)
--- NOTE | 2025-03-26 00:42 | P.PN ---
Date of Service: 03/22/25 Subjective Patient is status post hernia repair. Clinically appears to be doing okay. Mr. Paulino has been getting weaker. Significant weakness. Prognosis long-term is poor. Physical Examination - Vital Signs Reviewed - Physical Exam General: Alert, In no apparent distress, Cooperative HEENT: Normocephalic atraumatic; no JVP no bruits Respiratory: Clear to auscultation bilaterally, Normal air movement Cardiovascular: Regular rate/rhythm, Normal S1 S2 Gastrointestinal: Patient with incisions are clean; dry; intact Neurological: No focal deficits; generalized weakness - Studies Medications List Reviewed: Yes Assessment And Plan - Assessment/Plan Assessment Patient is 64-year -[place]ish male with known history of hypertension, hyperlipidemia, atrial fibrillation and ESRD on hemodialysis. He was admitted after he presented with palpitations, shortness of breath and chest pain. Cardiology was consulted due to elevated troponin. He has a recent history of a normal cardiac cath. Cardiology has signed off. He is currently being monitored for borderline blood pressure and hypoglycemia. Patient has poor appetite. CT abdomen and pelvis did not reveal any concerning pathology. Patient lives alone and he was previously independent in his ADLs. However, recently his inguinal hernia has severely restricted him. He is staying for surgical repair of his hernia 1. Umbilical hernia status post repair 2. Anorexia poor appetite 3. Hypotension 4. ESRD 5. Acute on chronic heart failure 6. History of atrial fibrillation 7. Type II myocardial infarction Plan: 1. Patient with umbilical hernia status post repair; continue monitoring closely postoperatively. Physical therapy evaluation. Patient with generalized weakness and may benefit from fci facility placement 2. ESRD; continue with hemodialysis 3. History of heart failure with atrial fibrillation and type II myocardial infarction; continue with cardiac meds 4. Patient with generalized weakness; continue with PT; await for SNF placement 5. Anorexia; continue with appetite stimulant 6. GI DVT prophylaxis
--- NOTE | 2025-03-26 00:43 | P.PN ---
Date of Service: 03/23/25 Subjective Patient continues to weaken. Patient is lethargic today and not really wanting to participate with physical therapy. Courage patient to get out of bed and ambulate. Cardiac status is stable. Awaiting for rehab at residential facility. Continue with current plan of care Physical Examination - Vital Signs Reviewed - Physical Exam General: Alert, In no apparent distress, Cooperative HEENT: Normocephalic atraumatic; no JVP no bruits Respiratory: Clear to auscultation bilaterally, Normal air movement Cardiovascular: Regular rate/rhythm, Normal S1 S2 Gastrointestinal: Patient with incisions are clean; dry; intact Neurological: No focal deficits; generalized weakness - Studies Medications List Reviewed: Yes Assessment And Plan - Assessment/Plan Assessment Patient is 64-year -[place] male with known history of hypertension, hyperlipidemia, atrial fibrillation and ESRD on hemodialysis. He was admitted after he presented with palpitations, shortness of breath and chest pain. Cardiology was consulted due to elevated troponin. He has a recent history of a normal cardiac cath. Cardiology has signed off. He is currently being monitored for borderline blood pressure and hypoglycemia. Patient has poor appetite. CT abdomen and pelvis did not reveal any concerning pathology. Patient lives alone and he was previously independent in his ADLs. However, recently his inguinal hernia has severely restricted him. He is staying for surgical repair of his hernia 1. Umbilical hernia status post repair 2. Anorexia poor appetite 3. Hypotension 4. ESRD 5. Acute on chronic heart failure 6. History of atrial fibrillation 7. Type II myocardial infarction Plan: Continue with plan of care as mentioned below: 1. Patient with umbilical hernia status post repair; continue monitoring closely postoperatively. Physical therapy evaluation. Patient with generalized weakness and may benefit from residential facility placement 2. ESRD; continue with hemodialysis 3. History of heart failure with atrial fibrillation and type II myocardial infarction; continue with cardiac meds 4. Patient with generalized weakness; continue with PT; await for SNF placement 5. Anorexia; continue with appetite stimulant 6. GI DVT prophylaxis
--- NOTE | 2025-03-26 00:44 | P.PN ---
Date of Service: 03/24/25 Subjective Patient has a hard time getting O2 sat on his fingers. However he had a ABG just showed normal arterial oxygen. Patient is clinically doing well with no complaints. Patient participated with physical therapy. He was able to move and take a few steps. Were waiting for snf facility placement. Physical Examination - Vital Signs Reviewed - Physical Exam General: Alert, In no apparent distress, Cooperative HEENT: Normocephalic atraumatic; no JVP no bruits Respiratory: Clear to auscultation bilaterally, Normal air movement Cardiovascular: Regular rate/rhythm, Normal S1 S2 Gastrointestinal: Patient with incisions are clean; dry; intact Neurological: No focal deficits; generalized weakness - Studies Medications List Reviewed: Yes Assessment And Plan - Assessment/Plan Assessment Patient is 64-year -[place] male with known history of hypertension, hyperlipidemia, atrial fibrillation and ESRD on hemodialysis. He was admitted after he presented with palpitations, shortness of breath and chest pain. Cardiology was consulted due to elevated troponin. He has a recent history of a normal cardiac cath. Cardiology has signed off. He is currently being monitored for borderline blood pressure and hypoglycemia. Patient has poor appetite. CT abdomen and pelvis did not reveal any concerning pathology. Patient lives alone and he was previously independent in his ADLs. However, recently his inguinal hernia has severely restricted him. He ended up having a inguinal hernia repair. Patient has some generalized weakness afterwards but he is slowly building up his strength. 1. Umbilical hernia status post repair 2. Anorexia poor appetite 3. Hypotension 4. ESRD 5. Acute on chronic heart failure 6. History of atrial fibrillation 7. Type II myocardial infarction Plan: Continue with plan of care as mentioned below: 1. Patient with umbilical hernia status post repair; continue monitoring clos morgan postoperatively. Physical therapy evaluation. Patient with generalized weakness and may benefit from snf facility placement 2. ESRD; continue with hemodialysis 3. History of heart failure with atrial fibrillation and type II myocardial infarction; continue with cardiac meds 4. Patient with generalized weakness; continue with PT; await for SNF placement 5. Anorexia; continue with appetite stimulant 6. GI DVT prophylaxis
--- NOTE | 2025-03-26 00:45 | P.PN ---
Date of Service: 03/25/25 Subjective Patient is doing well and he is in good spirits. Plan to transfer care to [facility]. Waiting for placement at snf facility. Once accepted we should be able to discharge. Continue with current plan of care at this time. Physical Examination - Vital Signs Reviewed - Physical Exam General: Alert, In no apparent distress, Cooperative HEENT: Normocephalic atraumatic; no JVP no bruits Respiratory: Clear to auscultation bilaterally, Normal air movement Cardiovascular: Regular rate/rhythm, Normal S1 S2 Gastrointestinal: Patient with incisions are clean; dry; intact Neurological: No focal deficits; generalized weakness - Studies Medications List Reviewed: Yes Assessment And Plan - Assessment/Plan Assessment Patient is 64-year -Maldivian male with known history of hypertension, hyperlipidemia, atrial fibrillation and ESRD on hemodialysis. He was admitted after he presented with palpitations, shortness of breath and chest pain. C ardiology was consulted due to elevated troponin. He has a recent history of a normal cardiac cath. Cardiology has signed off. He is currently being monitored for borderline blood pressure and hypoglycemia. Patient has poor appetite. CT abdomen and pelvis did not reveal any concerning pathology. Patient lives alone and he was previously independent in his ADLs. However, recently his inguinal hernia has severely restricted him. He ended up having a inguinal hernia repair. Patient has some generalized weakness afterwards but he is slowly building up his strength. 1. Umbilical hernia status post repair 2. Anorexia poor appetite 3. Hypotension 4. ESRD 5. Acute on chronic heart failure 6. History of atrial fibrillation 7. Type II myocardial infarction Plan: Continue with plan of care as mentioned below: 1. Patient with umbilical hernia status post repair; continue monitoring closely postoperatively. Physical therapy evaluation. Patient with generalized weakness and may benefit from snf facility placement 2. ESRD; continue with hemodialysis 3. History of heart failure with atrial fibrillation and type II myocardial infarction; continue with cardiac meds 4. Patient with generalized weakness; continue with PT; await for SNF placement 5. Anorexia; continue with appetite stimulant 6. GI DVT prophylaxis
[2025-03-26 04:29] LABS: Absolute Lymphocytes (CBC) 0.6 K/uL (0.7-4.9); Hematocrit 34.5 % (39.6-49.0); Hemoglobin 11.2 g/dL (13.6-17.9); MCH 27.5 pg (27.0-35.0); MCHC 32.4 g/dL (32.0-36.0); MCV 84.7 fL (80-100); MPV 11.5 fL (7.6-11.3); Nucleated RBC Absolute Count 0.4 (0-0); Nucleated Red Blood Cells % 3.8 % (0-0); RBC Red Blood Cell Count 4.07 M/uL (4.33-5.43); White Blood Count 11.70 thou/uL (4.3-10.9)
[2025-03-26 04:47] LABS: ALT/SGPT 19.0 U/L (16-61); AST/SGOT 30.0 U/L (15-37); Albumin 2.9 g/dL (3.4-5.0); Albumin/Globulin Ratio 0.9 (1.1-1.8); Alkaline Phosphatase 79.0 U/L (45-117); Anion Gap 14.0 mEq/L (5.0-15.0); BUN Blood Urea Nitrogen 40.0 mg/dL (7-18); Globulin 3.3 g/dL (2.3-3.5); Glucose Level 114.0 mg/dL (74-106); Magnesium 2.4 mg/dL (1.6-2.4); Potassium 4.0 mEq/L (3.5-5.1)
--- NOTE | 2025-03-26 11:42 | P.PN ---
Date of Service: 03/26/25 Subjective: Feeling better today dialysis planned for tomorrow pain is well controlled on current regimen no events overnight Physical Exam: Gen: Alert, NAD, Orientedx3 CV: Regular rate and rhythm, no edema Pulm: Nonlabored respirations on room air, clear bilaterally Abdomen: surgical incisions are clean; dressing in place Neuro: Normal strength, normal affect Problem List: Incarcerated right inguinal hernia s/p open mesh repair (03/22) Anorexia ESRD of HD with fluid overload acute on chronic CHF NSTEMI Hx of a-fib Hypertension Hyperlipidemia Incarcerated right inguinal hernia s/p open mesh repair (03/22) Anorexia CT abd/pelvis (03/17): Moderate free ascites. small layering b/l pleural effusions. Bilateral inguinal hernias R>L, mild fatty liver s/p open repair of incarcerated hernia with mesh (03/22) Dr. Emmanuel is following Continue IV merrem (03/23-) continue PT/OT. Would benefit from SNF. Diet as tolerated. ESRD of HD with fluid overload acute on chronic CHF Nephrology consulted Dialysis per nephro Dialysis TTS NSTEMI Hx of a-fib Troponins mildly elevated but trended flat. Recent LHC with normal coronaries monitor telemetry Continue metoprolol, amiodarone, statin No further cardiac work up per cardio Hypertension Midodrine TID Monitor BP. Continue metoprolol as BP allows Hyperlipidemia Continue statin VTE: SCD Code: Full Dispo: SNF - pending Auth
--- NOTE | 2025-03-26 12:01 | P.PN ---
Nephrology note (S) Pt seen lying in bed, mild pain at the site of Rt inguinal hernia repair, OOB briefly to bathroom, no constipation, mild intermittent nausea, chronic dyspnea stable (O) Vitals reviewed in the EMR General: In no apparent distress, Cachectic, Other (Appears chronically ill) HEENT: Atraumatic, Normocephalic, on O2 Neck: Supple, Rt IJ TDC Respiratory: Other (No rhonchi or wheezing), mildly diminished at bases Cardiovascular: Other (Non tachy, no cardiac gallop heart sounds appreciated) Gastrointestinal: Soft and benign, mildly distended, NT, dressing over Rt groin Musculoskeletal: No swelling, No contractures Integumentary: No rashes, No erythema Neurological: Normal speech, Normal tone, Normal affect Laboratory Data (last 24 hrs) Reviewed in the EMR Conclusions/Impression: 1. 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 Dialyzed Thurs, next HD tmrw. Tolerating HD sessions -Ok to use megace for appetite stimulant but did need to lower dose 2. 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 Chronic troponin leak. Reports of no obstructive CAD on prior LHC, lower BP and renal failure state prevents effective use of other GDMT as recommended by Cardiology. S/p AICD recently Needs to f/u advanced HF team(s) at [facility] Tachycardia unspecified. Last week resumed low dose Toprol XL and will dose at bedtime with holding parameters. 3. Chronic HTN with heart and kidney disease in the past now with hypotension of HD, at other times -f/u BP closely, has been in cardiogenic shock in the past, cont Midodrine with holding parameters for BP support on HD, other. 4. Large b/l inguinal hernia repairs. S/p repair with mesh of Rt inguinal hernia, post op management per surgery Sonny Cabral MD, CHRISTOPHER
[2025-03-26] MEDS: ZOLPIDEM TARTRATE 5 MG TABLET PO PRN (21:01)
[2025-03-27 04:11] VITALS: BMI 25.4
--- NOTE | 2025-03-27 06:47 | P.PN ---
Date of Service: 03/27/25 Subjective: Still feels very weak Discussed going to rehab He is tolerating his breakfast no events overnight Physical Exam: Gen: Alert, NAD, Orientedx3 CV: Regular rate and rhythm, no edema Pulm: Nonlabored respirations on room air, clear bilaterally Abdomen: surgical incisions are clean; dressing in place Neuro: Normal strength, normal affect Problem List: Incarcerated right inguinal hernia s/p open mesh repair (03/22) Anorexia ESRD of HD with fluid overload acute on chronic CHF NSTEMI Hx of a-fib Hypertension Hyperlipidemia Incarcerated right inguinal hernia s/p open mesh repair (03/22) Anorexia CT abd/pelvis (03/17): Moderate free ascites. small layering b/l pleural effusions. Bilateral inguinal hernias R>L, mild fatty liver s/p open repair of incarcerated hernia with mesh (03/22) Dr. Emmanuel is following Continue IV merrem (03/23-) continue PT/OT. Would benefit from SNF. Diet as tolerated. ESRD of HD with fluid overload acute on chronic CHF Needs advanced heart failure team at [facility] Nephrology consulted Dialysis per nephro Dialysis TTS NSTEMI Hx of a-fib Troponins mildly elevated but trended flat. Recent LHC with normal coronaries monitor telemetry Continue metoprolol, amiodarone, statin No further cardiac work up per cardio Hypertension Midodrine TID Monitor BP. Continue metoprolol as BP allows Hyperlipidemia Continue statin VTE: SCD Code: Full Dispo: SNF - pending Auth
[2025-03-27 07:48] LABS: Absolute Lymphocytes (CBC) 0.9 K/uL (0.7-4.9); Hematocrit 37.3 % (39.6-49.0); Hemoglobin 12.0 g/dL (13.6-17.9); MCH 27.6 pg (27.0-35.0); MCHC 32.1 g/dL (32.0-36.0); MCV 86.1 fL (80-100); MPV 11.1 fL (7.6-11.3); Nucleated RBC Absolute Count 0.8 (0-0); Nucleated Red Blood Cells % 7.8 % (0-0); RBC Red Blood Cell Count 4.33 M/uL (4.33-5.43); White Blood Count 9.70 thou/uL (4.3-10.9)
[2025-03-27 08:33] LABS: BUN Blood Urea Nitrogen 50.0 mg/dL (7-18); Glucose Level 83.0 mg/dL (74-106); Potassium 4.6 mEq/L (3.5-5.1)
[2025-03-27 09:03] LABS: AST/SGOT 42.0 U/L (15-37)
[2025-03-27 09:04] LABS: ALT/SGPT 22.0 U/L (16-61); Alkaline Phosphatase 83.0 U/L (45-117)
[2025-03-27 09:05] LABS: Albumin 2.8 g/dL (3.4-5.0); Albumin/Globulin Ratio 0.8 (1.1-1.8); Globulin 3.6 g/dL (2.3-3.5)
[2025-03-27 09:08] LABS: Anion Gap 21.6 mEq/L (5.0-15.0)
[2025-03-27 10:16] LABS: Differential Total Cells Count 100
[2025-03-27 10:22] LABS: Segmented Neutrophils 83 % (40-80)
[2025-03-27 10:23] LABS: Anisocytosis 1+; Blood Morphology Comment NOTED (NOT SEEN)
--- NOTE | 2025-03-27 13:13 | PN ---
Date of Progress Note: 03/27/2025 Subjective: The patient was seen and examined at bedside. No overnight events were noted. Objective: Vital Signs: Have been reviewed and are stable. General: He appears in no acute distress. Lungs: Clear to auscultation. Abdomen: Soft and nontender. Extremities: Without any evidence of edema. Laboratory Data: Consistent with ESRD. Impression: 1. End-stage renal disease, on dialysis. The patient is on Saturday, , and Saturday dialysis. Plan for dialysis today per his regular schedule. 2. Incarcerated right inguinal hernia, status post open mesh repair on the 22 of March. The patien t is being followed by General Surgery. Continue antibiotics and local incision care. 3. Non-ST segment elevation myocardial infarction, currently stable. Continue medical management. 4. Anemia secondary to chronic disease, currently stable. Plan: The patient is clinically stable. Saturday, , and Saturday dialysis schedule. Continu e antibiotics and wound care. Anemia is currently stable as well. VV/MODL Voice ID: [id number] Report ID: [id number]
[2025-03-28] MEDS: BENZONATATE 100 MG CAP PO PRN (01:49)
--- NOTE | 2025-03-28 08:22 | RAD REPORT ---
Abdomen Exam Limited: 03/28/2025 7:30 AM CLINICAL HISTORY: elevated bilirubin, rule out cholecystitis STUDY: Limited right upper quadrant ultrasound of abdomen. COMPARISON: 03/17/2025 CT FINDINGS: Liver: Limited evaluation but grossly unremarkable. Bile ducts: No intrahepatic biliary duct dilatation. Unable to visualize the common bile duct. The so nographer was unable to reposition the patient for better visualization. Gallbladder: Gallbladder wall thickening is present though the gallbladder is underdistended. No shad owing gallstones. No sonographic Lorenzo sign. Large volume of ascites IMPRESSION: Gallbladder wall thickening which is probably related to underlying liver disease and/or heart failur e. No sonographic evidence of acute cholecystitis. Nonvisualized common bile duct.
--- NOTE | 2025-03-28 13:08 | P.PN ---
Date of Service: 03/28/25 Subjective: Sitting up Nurse at bedside unable to get O2 sat He had breakfast this morning Vitals remained stable overnight Physical Exam: Gen: Alert, NAD, Orientedx3 CV: Regular rate and rhythm, no edema Pulm: Nonlabored respirations on room air, clear bilaterally Abdomen: surgical incisions are clean; dressing in place Neuro: Normal strength, normal affect Problem List: Incarcerated right inguinal hernia s/p open mesh repair (03/22) Anorexia ESRD of HD with fluid overload acute on chronic CHF NSTEMI Hx of a-fib Hypertension Hyperlipidemia Incarcerated right inguinal hernia s/p open mesh repair (03/22) Anorexia CT abd/pelvis (03/17): Moderate free ascites. small layering b/l pleural effusions. Bilateral inguinal hernias R>L, mild fatty liver s/p open repair of incarcerated hernia with mesh (03/22) Dr. Emmanuel is following Continue IV merrem (03/23-) continue PT/OT. Would benefit from SNF. Diet as tolerated. ESRD of HD with fluid overload acute on chronic CHF Needs advanced heart failure team at [facility] Nephrology consulted Dialysis per nephro Dialysis TTS NSTEMI Hx of a-fib Troponins mildly elevated but trended flat. Recent LHC with normal coronaries monitor telemetry Continue metoprolol, amiodarone, statin No further cardiac work up per cardio Hypertension Midodrine TID Monitor BP. Continue metoprolol as BP allows Hyperlipidemia Continue statin VTE: SCD Code: Full Dispo: SNF - pending Auth
[2025-03-29 08:59] LABS: Absolute Lymphocytes (CBC) 0.7 K/uL (0.7-4.9); Hematocrit 39.1 % (39.6-49.0); Hemoglobin 12.5 g/dL (13.6-17.9); MCH 27.5 pg (27.0-35.0); MCHC 32.1 g/dL (32.0-36.0); MCV 85.6 fL (80-100); MPV 10.7 fL (7.6-11.3); Nucleated RBC Absolute Count 0.2 (0-0); Nucleated Red Blood Cells % 1.5 % (0-0); RBC Red Blood Cell Count 4.56 M/uL (4.33-5.43); White Blood Count 12.70 thou/uL (4.3-10.9)
[2025-03-29 09:05] LABS: ALT/SGPT 23.0 U/L (16-61); AST/SGOT 35.0 U/L (15-37); Albumin 2.7 g/dL (3.4-5.0); Albumin/Globulin Ratio 0.8 (1.1-1.8); Alkaline Phosphatase 81.0 U/L (45-117); Anion Gap 15.9 mEq/L (5.0-15.0); BUN Blood Urea Nitrogen 53.0 mg/dL (7-18); Globulin 3.3 g/dL (2.3-3.5); Glucose Level 128.0 mg/dL (74-106); Potassium 3.9 mEq/L (3.5-5.1)
[2025-03-29 10:00] LABS: Differential Total Cells Count 100; Segmented Neutrophils 86 % (40-80)
[2025-03-29 10:01] LABS: Anisocytosis 1+; Blood Morphology Comment NOTED (NOT SEEN); Platelets, Giant FEW PRESENT; Polychromasia SLIGHT
[2025-03-29 10:02] LABS: Ovalocytes 1+
--- NOTE | 2025-03-29 12:47 | P.PN ---
Nephrology note (S) Pt seen lying in bed, appetite improved, no acute CP or dyspnea, OOB enocuraged, awaiting authorization to return back to SNF (O) Vitals reviewed in the EMR General: In no apparent distress, Cachectic, Other (Appears chronically ill) HEENT: Atraumatic, Normocephalic, on O2 Neck: Supple, Rt IJ TDC Respiratory: Other (No rhonchi or wheezing), mildly diminished at bases Cardiovascular: Other (Non tachy, no cardiac gallop heart sounds appreciated) Gastrointestinal: Soft and benign, mildly distended, NT, dressing over Rt groin Musculoskeletal: No swelling, No contractures Integumentary: No rashes, No erythema Neurological: Normal speech, Normal tone, Normal affect Laboratory Data (last 24 hrs) Reviewed in the EMR Conclusions/Impression: 1. 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 Dialyzed Sat, next HD tmrw. Tolerating HD sessions -Ok to use megace for appetite stimulant but did need to lower dose -Metab profile stable, BUN levels no longer as low as he is eating but also appears to be on Prednisone per IM 2. 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 Chronic troponin leak. Reports of no obstructive CAD on prior LHC, lower BP and renal failure state prevents effective use of other GDMT as recommended by Cardiology. S/p AICD recently Needs to f/u advanced HF team(s) at [facility] Tachycardia unspecified. Recently had resumed low dose Toprol XL and will dose at bedtime with holding parameters. 3. Chronic HTN with heart and kidney disease in the past now with hypotension of HD, at other times -f/u BP closely, has been in cardiogenic shock in the past, cont Midodrine with holding parameters for BP support on HD, other. Currently stable 4. Large b/l inguinal hernia repairs. S/p repair with mesh of Rt inguinal yaya ia, post op management per surgery Sonny Cabral MD, CHRISTOPHER
[2025-03-29 13:50] LABS: Arterial Blood Carboxyhemoglob 1.7 % (0.0-1.5); Blood Gas Oxyhemoglobin 93.1 % (94.0-97.0); Blood O2 Saturation 94.4 % (92.0-98.5)
[2025-03-29 13:51] LABS: Blood Gas Inspired Oxygen 28.0 %
--- NOTE | 2025-03-29 14:45 | P.PN ---
Date of Service: 03/29/25 Subjective: Resting in bed He is sleeping on and off during questioning No acute events overnight Physical Exam: Gen: Alert, NAD, Orientedx3 CV: Regular rate and rhythm, no edema Pulm: Nonlabored respirations on room air, clear bilaterally Abdomen: surgical incisions are clean; dressing in place Neuro: Normal strength, normal affect Problem List: Incarcerated right inguinal hernia s/p open mesh repair (03/22) Anorexia ESRD of HD with fluid overload acute on chronic CHF NSTEMI Hx of a-fib Hypertension Hyperlipidemia Incarcerated right inguinal hernia s/p open mesh repair (03/22) Anorexia CT abd/pelvis (03/17): Moderate free ascites. small layering b/l pleural effusions. Bilateral inguinal hernias R>L, mild fatty liver s/p open repair of incarcerated hernia with mesh (03/22) Dr. Emmanuel is following Continue IV merrem (03/23-) continue PT/OT. Would benefit from SNF. Diet as tolerated. ESRD of HD with fluid overload acute on chronic CHF Needs advanced heart failure team at [facility] Nephrology consulted Dialysis per nephro Dialysis TTS NSTEMI Hx of a-fib Troponins mildly elevated but trended flat. Recent LHC with normal coronaries monitor telemetry Continue metoprolol, amiodarone, statin No further cardiac work up per cardio Hypertension Midodrine TID Monitor BP. Continue metoprolol as BP allows Hyperlipidemia Continue statin VTE: SCD Code: Full Dispo: SNF - pending Auth
--- NOTE | 2025-03-29 15:11 | RAD REPORT ---
EXAM: Chest Single View HISTORY: 64 years Male confusion COMPARISON: 03/14/2025 FINDINGS: LUNGS/PLEURA: Low lung volumes with mild pulmonary edema. Probable small pleural effusions. CARDIAC/MEDIASTINUM: Moderate cardiomegaly. UPPER ABDOMEN: No significant abnormality. BONES: No acute abnormality. LINES/TUBES/OTHER: Pacemaker/AICD. Right IJ dialysis catheter with tip overlying the SVC. IMPRESSION: Mild pulmonary edema.
[2025-03-29] MEDS: NEPRO SHAKE 237 ML CAN PO SCH (20:54)
[2025-03-30] MEDS ORDERED: MELATONIN 5 MG TABLET PO PRN (06:57)
--- NOTE | 2025-03-30 07:04 | P.PN ---
Date of Service: 03/30/25 Subjective: Physical Exam: Gen: Alert, NAD, Orientedx3 CV: Regular rate and rhythm, no edema Pulm: Nonlabored respirations on room air, clear bilaterally Abdomen: surgical incisions are clean; dressing in place Neuro: Normal strength, normal affect Problem List: Incarcerated right inguinal hernia s/p open mesh repair (03/22) Anorexia ESRD of HD with fluid overload Acute on chronic CHF NSTEMI Atrial fibrillation Hypertension Hyperlipidemia Delirium /metabolic encephalopathy Moderate protein calorie malnutrition Intermittent confusion /delirium Metabolic encephalopathy Stop Ambien and start melatonin Obtain CT head Incarcerated right inguinal hernia s/p open mesh repair (03/22) Anorexia CT abd/pelvis (03/17): Moderate free ascites. small layering b/l pleural effusions. Bilateral inguinal hernias R>L, mild fatty liver s/p open repair of incarcerated hernia with mesh (03/22) Dr. Emmanuel is following Continue IV merrem (03/23-) continue PT/OT. Would benefit from SNF. Diet as tolerated. ESRD of HD with fluid overload acute on chronic CHF Needs advanced heart failure team at [facility] Nephrology consulted Dialysis per nephro Dialysis TTS NSTEMI Hx of a-fib Troponins mildly elevated but trended flat. Recent LHC with normal coronaries monitor telemetry Continue metoprolol, amiodarone, statin No further cardiac work up per cardio Hypertension Midodrine TID Monitor BP. Continue metoprolol as BP allows Hyperlipidemia Continue statin VTE: SCD Code: Full Dispo: SNF - pending Auth
[2025-03-30] MEDS: ALBUMIN HUMAN 25% 100 ML IV ONE (08:00)
--- NOTE | 2025-03-30 08:19 | RAD REPORT ---
EXAM: CT brain without contrast HISTORY: Intermittent confusion COMPARISON: 10/09/2024, 03/10/2024 TECHNIQUE: Multiple contiguous axial images were obtained and a CT of the brain without contrast. Sag ittal and coronal reformats were performed. One or more of the following dose reduction techniques were used: Automated exposure control, adjust ment of the mA and/or kV according to patient size, and/or iterative reconstruction. FINDINGS: No evidence of hydrocephalus, intracranial hemorrhage, or extra-axial fluid collection. Moderate brain atrophy with moderate periventricular and deep white matter chronic microvascular isc hemic changes present. No evidence of midline shift or areas of brain edema. The calvarium is intact. The visualized paranasal sinuses and mastoid air cells are essentially clear . EXAM: CT of the cervical spine without contrast HISTORY: Neck pain, injury Intermittent confusion TECHNIQUE: Multiple contiguous axial images were obtained in a CT of the cervical spine without contr ast. Sagittal and coronal reformats were performed. FINDINGS: The vertebral bodies demonstrate normal height and alignment. No evidence of acute fracture or subluxation.. Mild degenerative anterolisthesis C3 on 4 of 3 mm. Moderate persisting posterior osteophyte lower cervical spine levels. No prevertebral soft tissue swelling is seen. The posterior facets are well aligned. Normal alignment of the skull base with the cervical spine is seen. The lung apices are unremarkable. COMBINED IMPRESSION: No evidence of acute intracranial abnormality. No evidence of acute osseous abnormality of the cervical spine. Moderate lower cervical spondylosis.
[2025-03-30 10:51] VITALS: O2SAT 99
--- NOTE | 2025-03-30 12:00 | P.PN ---
Nephrology note (S) Pt seen lying in bed, reports nauseated today, seen spitting in a vomit bag, no abd pain, due for HD today (O) Vitals reviewed in the EMR General: In no apparent distress, Cachectic, Other (Appears chronically ill) HEENT: Atraumatic, Normocephalic, on O2 Neck: Supple, Rt IJ TDC Respiratory: Other (No rhonchi or wheezing), mildly diminished at bases Cardiovascular: Other (Non tachy, no cardiac gallop heart sounds appreciated) Gastrointestinal: Soft and benign, mildly distended, NT, dressing over Rt groin Musculoskeletal: No swelling, No contractures Integumentary: No rashes, No erythema Neurological: Normal speech, Normal tone, Normal affect Laboratory Data (last 24 hrs) Reviewed in the EMR Conclusions/Impression: 1. 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 Dialyzed Sat, next HD tmrw. Tolerating HD sessions -Ok to use megace for appetite stimulant but did need to lower dose and will further lower dose today as he is nauseated -Metab profile stable, BUN levels no longer as low as he is eating but also appears to be on Prednisone per IM, did review indications for steroids, possible reports of RA, recommend dose lowering 2. 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 Chronic troponin leak. Chronic pulm edema. Reports of no obstructive CAD on prior LHC, lower BP and renal failure state prevents effective use of other GDMT as recommended by Cardiology. S/p AICD recently Needs to f/u advanced HF team(s) at [facility] Tachycardia unspecified. Recently had resumed low dose Toprol XL and will dose at bedtime with holding parameters. Maintain EDW with UF on HD 3. Chronic HTN with heart and kidney disease in the past now with hypotension of HD, at other times -f/u BP closely, has been in cardiogenic shock in the past, cont Midodrine with holding parameters for BP support on HD, other. Currently stable 4. Large b/l inguinal hernia repairs. S/p repair with mesh of Rt inguinal hernia, post op management per surgery Sonny Cabral MD, CHRISTOPHER
[2025-03-30 13:16] VITALS: TEMP 97.9
--- NOTE | 2025-03-30 16:01 | P.DS ---
Admission Date: 03/15/25 Discharge Date: 03/30/25 Disposition: ROUTINE DISCHARGE Discharge Condition: GOOD Reason for Admission: NSTEMI Brief History of Present Illness: 64 yrs old male with past medical history of hypertension, hyperlipidemia, atrial fibrillation, coronary artery disease, status post PCI, ESRD on dialysis, history of gout, history of pancreatitis, rheumatoid arthritis, history of CVA who was brought to ER with palpitations and shortness of breath and chest discomfort. Patient noted history of heart racing and was brought to ER. Patient complains of chest discomfort as well. Denies any radiation associated with shortness of breath. No fever or chills. No nausea vomiting or diarrhea. Patient was assessed in the ER and was admitted for further management of chest pain rule out ACS and NSTEMI. Cardiology was consulted and recent cath revealed no acute [place] and he was continued with medical management. His clinical course was complicated with an incarcerated right inguinal hernia with open repair incarcerated tender right inguinal hernia with mesh on 03/22/2025 by general surgery, Dr. Emmanuel. In addition nephrology was consulted and he was taken for dialysis to normalize his volume status. Physical therapy was consulted and recommended [facility] facility. The remainder of his hospitalization was without any acute events and he is medically optimized for discharge. Hospital Course: Physical Exam: Gen: Alert, NAD, Orientedx3 CV: Regular rate and rhythm, no edema Pulm: Nonlabored respirations on room air, clear bilaterally Abdomen: surgical incisions are clean; dressing in place Neuro: Normal strength, normal affect Problem List: Incarcerated right inguinal hernia s/p open mesh repair (03/22) Anorexia ESRD of HD with fluid overload Acute on chronic CHF NSTEMI Atrial fibrillation Hypertension Hyperlipidemia Delirium /metabolic encephalopathy Moderate protein calorie malnutrition Intermittent confusion /delirium Metabolic encephalopathy Stop Ambien and start melatonin Obtain CT head Incarcerated right inguinal hernia s/p open mesh repair (03/22) Anorexia CT abd/pelvis (03/17): Moderate free ascites. small layering b/l pleural effusions. Bilateral inguinal hernias R>L, mild fatty liver s/p open repair of incarcerated hernia with mesh (03/22) Dr. Emmanuel is following Continue IV merrem (03/23-) continue PT/OT. Would benefit from SNF. Diet as tolerated. ESRD of HD with fluid overload acute on chronic CHF Needs advanced heart failure team at [facility] Nephrology consulted Dialysis per nephro Dialysis TTS NSTEMI Hx of a-fib Troponins mildly elevated but trended flat. Recent LHC with normal coronaries monitor telemetry Continue metoprolol, amiodarone, statin No further cardiac work up per cardio Hypertension Midodrine TID Monitor BP. Continue metoprolol as BP allows Hyperlipidemia Continue statin VTE: SCD Code: Full Dispo: SNF - pending Auth Vital Signs/Physical Exam: Temp Pulse Resp BP Pulse Ox 97.9 F 85 17 112/76 100 03/30/25 12:00 03/30/25 12:00 03/30/25 12:00 03/30/25 12:00 03/30/25 12:00 Laboratory Data at Discharge: WBC 12.70 thou/uL (4.3-10.9) H 03/29/25 08:35 Hgb 12.5 g/dL (13.6-17.9) L 03/29/25 08:35 Hct 39.1 % (39.6-49.0) L 03/29/25 08:35 Plt Count 95 thou/uL (152-406) L 03/29/25 08:35 PT 18.7 SECONDS (10-13.0) H 03/14/25 21:59 INR 1.68 03/14/25 21:59 Sodium 139 mEq/L (136-145) 03/29/25 08:35 Potassium 3.9 mEq/L (3.5-5.1) 03/29/25 08:35 BUN 53 mg/dL (7-18) H 03/29/25 08:35 Creatinine 6.37 mg/dL (0.70-1.30) H 03/29/25 08:35 Glucose 128 mg/dL (74-106) H 03/29/25 08:35 Phosphorus 3.8 mg/dL (2.5-4.9) 03/25/25 07:51 Magnesium 2.4 mg/dL (1.6-2.4) 03/26/25 04:07 Total Bilirubin 2.2 mg/dL (0.2-1.0) H 03/29/25 08:35 AST 35 U/L (15-37) 03/29/25 08:35 ALT 23 U/L (16-61) 03/29/25 08:35 Alkaline Phosphatase 81 U/L (45-117) 03/29/25 08:35 Home Medications: Amiodarone HCl [Cordarone*] 200 mg PO DAILY 07/27/24 Atorvastatin Calcium [Lipitor] 20 mg PO BEDTIME 07/27/24 Metoprolol Succinate [Toprol Xl*] 1 tab PO BID 07/27/24 Calcium Acetate [Phoslo*] 1,334 mg PO TIDWM #180 tab 11/06/24 Epoetin [Retacrit] 10,000 unit IV EVERY HD vial 11/06/24 calcitrioL [Calcitriol] 0.5 mcg PO DAILY #30 cap 11/06/24 Atovaquone 1,500 mg PO DAILY 11/19/24 predniSONE [Deltasone*] 30 mg PO DAILY 12/18/24 Apixaban [Eliquis *] 2.5 mg PO BID 30 Days #60 tab 01/14/25 Docusate [Colace Cap*] 100 mg PO BID 30 Days #60 cap 01/14/25 Furosemide [Lasix*] 80 mg PO BIDL 30 Days #120 tab 01/14/25 Midodrine HCl [Proamatine*] 5 mg PO [id number] 30 Days #60 tab 01/14/25 Sacubitril/Valsartan [Entresto 24 mg-26 mg Tablet] 1 tab PO BID 30 Days #60 tab 01/14/25 allopurinoL [Zyloprim*] 100 mg PO BID 30 Days #60 tab 01/14/25 Bumetanide [Bumex] 2 mg PO DAILY 03/15/25 Followup: Anton Hayes DO [Primary Care Provider] -
[2025-03-30 16:07] VITALS: BP 109/74
[2025-03-31] MEDS ORDERED: MEGESTROL 400 MG/10 ML UCUP PO SCH (09:00)
== END 2025-03-30 18:40 | DRG 987 ==
LOC: ER 20:58 → ERHOLD 03-15 00:01 → 3RD-ICU 03-15 08:51 → 4TH 03-18 17:38
PROVIDERS: ADMIT Family Medicine; ATTEND Family Medicine
PROC: 5A1D70Z Performance of Urinary Filtration, Intermittent, Less than 6 Hours Per Day (ICD-10-PCS; 2025-03-15)
PROC: 0YU50JZ Supplement Right Inguinal Region with Synthetic Substitute, Open Approach (ICD-10-PCS; principal; 2025-03-22 10:45)
PROC: 4A033R1 Measurement of Arterial Saturation, Peripheral, Percutaneous Approach (ICD-10-PCS; 2025-03-23)
DX: I13.2 Hypertensive heart and chronic kidney disease with heart failure and with stage 5 chronic kidney disease, or end stage renal disease (principal); G93.41 Metabolic encephalopathy; I21.A1 Myocardial infarction type 2; I50.43 Acute on chronic combined systolic (congestive) and diastolic (congestive) heart failure; N18.6 End stage renal disease; N25.81 Secondary hyperparathyroidism of renal origin; E87.20 Acidosis, unspecified; R64 Cachexia; R18.8 Other ascites; K40.30 Unilateral inguinal hernia, with obstruction, without gangrene, not specified as recurrent; F05 Delirium due to known physiological condition; E44.0 Moderate protein-calorie malnutrition; D63.1 Anemia in chronic kidney disease; I48.91 Unspecified atrial fibrillation; M10.9 Gout, unspecified; I95.89 Other hypotension; E86.9 Volume depletion, unspecified; E78.5 Hyperlipidemia, unspecified; M19.90 Unspecified osteoarthritis, unspecified site; I42.0 Dilated cardiomyopathy; E83.52 Hypercalcemia; M06.9 Rheumatoid arthritis, unspecified; E16.2 Hypoglycemia, unspecified; I95.9 Hypotension, unspecified; I25.2 Old myocardial infarction; I27.22 Pulmonary hypertension due to left heart disease; E88.09 Other disorders of plasma-protein metabolism, not elsewhere classified; I25.10 Atherosclerotic heart disease of native coronary artery without angina pectoris; Z88.0 Allergy status to penicillin; Z60.2 Problems related to living alone; Z99.2 Dependence on renal dialysis; Z95.5 Presence of coronary angioplasty implant and graft; Z95.1 Presence of aortocoronary bypass graft; Z86.73 Personal history of transient ischemic attack (TIA), and cerebral infarction without residual deficits; Z79.52 Long term (current) use of systemic steroids; Z79.01 Long term (current) use of anticoagulants; Z79.899 Other long term (current) drug therapy; Z68.25 Body mass index [BMI] 25.0-25.9, adult
CPT/HCPCS: 36415; 36600; 70450; 71045; 72125; 74018; 74177; 76705; 80048; 80053; 80069; 80076; 82248; 82533; 82805; 82947; 83605; 83735; 83880; 84100; 84484; 85025; 85610; 86704; 86706; 87340; 88302; 90935; 93005; 93306; 94010; 94760; 96374; 97161; 97530; 99285; J0744; J1171; J1644; J1720; J2003; J2250; J2371; J2405; J2550; J2704; J2710; J3010; J7040; J7042; J7512; P9047; Q9967